=== PATIENT | female | born 1940 | race Caucasian/White ===

== ENCOUNTER 2017-06-29 10:15 | Inpatient (IN) | payer MEDICAID, MEDICARE ==
--- NOTE | 2017-06-29 11:01 | ED Physician Chart ---
ED Chief Complaint/HPI - Patient Information Date Seen:: 06/29/17 Time Seen:: 11:01 Chief Complaint:: Malfuntion left arm AV fistula History of Present Illness:: 76 yo female was brought from [facility] to ER due to malfunctioning of the left arm AV fistula for 1 day. After the patient received hemodialysis a day ago, she developed diffused edema at the AV fistula site extending from left arm to left forearm. Allergies:: Allergies Allergy/AdvReac Type Severity Reaction Status Date / Time hydrochlorothiazide Allergy Verified 06/29/17 10:31 [From Microzide] morphine Allergy Verified 06/29/17 10:30 sertraline Allergy Verified 06/29/17 10:31 Vitals:: Vital Signs - 8 hr 06/29/17 10:43 Temp 98.7 F HR 80 RR 21 BP 134/86 O2 Sat % 100 ED Review of Systems - Review of Systems General/Constitutional: No fever Skin: No bruising Head: No headache Eyes: No pain ENT: No nasal drainage Neck: No neck pain Cardio Vascular: No chest pain Pulmonary: SOB, Sputum GI: No nausea, No vomiting Musculoskeletal: Other (Left arm and forearm generalized edema) Neurological: No focal symptoms ED Past Medical History - Past Medical History Past Medical History: HTN, DM, ESRD, Other (Trach to T bar) Social History: Non Smoker, No Alcohol, No Drug Use Surgical History: PEG/GTube, other (laparotomy) Family Medical History - Family Member Mother History Unknown: Yes ED Physical Exam - Physical Examination General/Constitutional: Awake Other Gen/Cons comments:: bed/wheelchair bound Head: Atraumatic Eyes: PERRL Skin: No skin lesions ENMT: Nasal exam nl Other Neck comments:: Trach to T bar Other Respiratory comments:: Congestion and rhonchi Cardio Vascular: No murmur, gallop, rubs, NL S1 S2 Other Cardio Vascular comments:: irregular Other GI comments:: obese and distended Other Extremities comments:: Left arm and forearm generalized edema ED Labs/Radiology/EKG Results - Radiology Results Results: CXR: pulmonary edema, bibasilar pleural effusion, left > right - EKG Interpretations Rate & Rhythm: Sinus rhythm, premature atrial complex ED Assessment - Assessment General Assessment: Left arm AV fistula malfunction Pleural effusion, Left worse than right Possible LLL pneumonia Anemia of chronic kidney disease Hyponatremia Assessment/Comments:: NS 500ml IV bolus Admit to med surg ED Septic Shock - . Is Septic Shock (SBP<90, OR Lactate>4 mmol\L) present?: No - <6hrs of presentation: Vital Signs: Vital Signs - 8 hr 06/29/17 10:43 Temp 98.7 F HR 80 RR 21 BP 134/86 O2 Sat % 100 ED Reassessment (Disposition) - Reassessment Reassessment Condition:: Unchanged - Patient Disposition Discharge/Transfer:: Acute Care w/in this hosp Admitted to:: Med/Surg Admitting Medical Physician:: Luiza Barth ED Discharge Plan - Patient Disposition Admit/Discharge/Transfer: Acute Care w/in this hosp Condition at Disposition: Stable
[2017-06-29 11:54] LABS: ALB/GLOB RATIO 1.1 (1.0-1.8); ALBUMIN 3.9 gm/dL (3.7-5.3); ALKALINE PHOSPHATASE 180 U/L (34-104); ANION GAP 17.2 (7.0-16.0); BILIRUBIN,TOTAL 0.4 mg/dL (0.3-1.0); BUN - UREA NITROGEN 39 mg/dL (7-25); CARBON DIOXIDE 25.9 mEq/L (21.0-31.0); CHLORIDE 90 mEq/L (98-107); CREATININE - SERUM 2.3 mg/dL (0.6-1.2); GLUCOSE 140 mg/dL (70-105); POTASSIUM SERUM 4.1 mEq/L (3.5-5.1); SGOT 43 U/L (13-39); SGPT/ALT 20 U/L (7-52); SODIUM SERUM 129 mEq/L (136-145); TOTAL PROTEIN,SERUM 7.4 gm/dL (6.0-8.3)
[2017-06-29 12:18] LABS: % BASOPHILS 0.7 % (0.0-2.0); % EOSINOPHILS 1.5 % (0.0-5.0); % LYMPHOCYTES 9.2 % (20.0-50.0); % MONOCYTES 13.7 % (2.0-10.0); % NEUTROPHILS 74.9 % (40.0-80.0); EOSINOPHILE ABSOLUTE 0.1 Th/cmm (0.1-0.4); LYMPHOCYTE ABSOLUTE 0.6 Th/cmm (1.5-3.0); MEAN CELL VOLUME 98.9 fl (81-100); MEAN CORPUSCULAR HGB CONC 32.3 pg (28.0-36.0); MEAN PLATELET VOLUME 9.4 fl; MONOCYTE ABSOLUTE 0.9 Th/cmm (0.3-1.0); NEUTROPHILE ABSOLUTE 5.2 Th/cmm (1.8-8.0); PLATELET COUNT 213 Th/cmm (150-400); RED BLOOD COUNT 2.43 Mil/cmm (3.80-5.20); RED CELL DISTRIBUTION WIDTH 20.1 % (11.5-20.0); WHITE BLOOD COUNT 6.8 Th/cmm (4.8-10.8)
[2017-06-29 12:23] LABS: HEMOGLOBIN 7.8 gm/dL (12-16)
[2017-06-29] MEDS ORDERED: Sodium Chloride 0.9% 500 ML IV ONE (12:49)
[2017-06-29] MEDS ORDERED: Fleet Enema 135 mL RC PRN ×2 (15:54→19:12)
[2017-06-29] MEDS: INSULIN ASPART SLIDING SCALE 100 UNITS/ML UNIT SUBQ SCH (17:02)
[2017-06-29] MEDS ORDERED: Magnesium Hydroxide (MOM) 30 mL UDC GT PRN ×2 (17:47→19:12)
--- NOTE | 2017-06-29 18:38 | Consultation ---
Consult Note - Consult Note Service Date: 06/29/17 Referring Physician: Luiza Barth Consult Note: PHYSICIAN Consultation Note: Date of Admission: 06/29/17 Purpose of Consultation: Chief Complaint: Patient ANDREW ANDERSON was admitted to [facility] I with AV SHUNT MALFUNCTION. History of Present Illness: 76 yo female was brought from [facility] to ER due to malfunctioning of the left arm AV fistula for 1 day. After the patient received hemodialysis a day ago, she developed diffused edema at the AV fistula site extending from left arm to left forearm. Past Medical History: Allergies Allergy/AdvReac Type Severity Reaction Status Date / Time hydrochlorothiazide Allergy Verified 06/29/17 10:31 [From Microzide] morphine Allergy Verified 06/29/17 10:30 sertraline Allergy Verified 06/29/17 10:31 Vital Signs Temp 98.5 F 06/29/17 15:23 Pulse 79 06/29/17 16:41 Resp 16 06/29/17 16:41 BP 128/48 06/29/17 15:23 Pulse Ox 100 06/29/17 16:41 Laboratory Results - last 24 hr 06/29/17 16:58 POC Glucose 91 Home Medication Medication Instructions Recorded Type Acetaminophen [8 Hour] 650 mg GT Q4H PRN 06/29/17 History Acetaminophen [Tylenol] 650 mg GT DAILY 06/29/17 History Ascorbic Acid [Vitamin C] 500 mg GT DAILY 06/29/17 History Aspirin [Aspirin Chewable] 81 mg GT DAILY 06/29/17 History Atorvastatin Calcium [Lipitor] 40 mg GT HS 06/29/17 History Bisacodyl [Dulcolax 10 Mg Supp] 10 mg RC PRN PRN 06/29/17 History Chlorhexidine Gluconate 0.12% 10 ml MM QSHIFT 06/29/17 History [Peridex] Cholecalciferol (Vit D3) [Vitamin 1,000 iu GT DAILY 06/29/17 History D3] Docusate Sodium [Colace] 100 mg GT DAILY 06/29/17 History Fleet Enema [Fleet Enema] 118 ml RC PRN PRN 06/29/17 History Folic Acid/Vit Bcomp,C [Gina-Jie 1 tab GT DAILY 06/29/17 History Tablet] Insulin Regular, Human [Humulin R] 100 unit IJ Q6H 06/29/17 History Lansoprazole 30 mg GT DAILY 06/29/17 History Lorazepam [Ativan] 0.5 mg GT Q6H PRN 06/29/17 History Magnesium Hydroxide [Milk of 30 ml GT Q72H PRN 06/29/17 History Magnesia] Mirtazapine [Remeron] 15 mg GT HS 06/29/17 History Ondansetron [Zofran ODT] 4 mg GT Q6HR PRN 06/29/17 History Simethicone [Mylicon] 80 mg GT Q6H PRN 06/29/17 History Temazepam [Restoril*] 15 mg GT HS PRN 06/29/17 History Zinc Sulfate 220 mg GT DAILY 06/29/17 History Current Medications Generic Name Dose Route Start Last Admin Trade Name Freq PRN Reason Stop Dose Admin Acetaminophen 650 mg 06/30/17 09:00 Tylenol 650mg/20.3ml Suspension GT 08/29/17 08:59 DAILY FOUZIA Acetaminophen 650 mg 06/29/17 17:50 Tylenol 650mg/20.3ml Suspension GT 08/28/17 17:49 Q4H PRN PAIN Ascorbic Acid 500 mg 06/30/17 09:00 Vitamin C GT 08/29/17 08:59 DAILY FOUZIA Aspirin 81 mg 06/30/17 09:00 Aspirin Chewable GT 08/29/17 08:59 DAILY FOU[facility]IA Atorvastatin Calcium 40 mg 06/29/17 21:00 Lipitor GT 08/28/17 20:59 HS FOUZIA Protocol Bisacodyl 10 mg 06/29/17 16:01 Dulcolax 10 Mg Supp RC 08/28/17 16:00 DAILY PRN Constipation Cholecalciferol 1,000 iu 06/30/17 09:00 Vitamin D3 GT 08/29/17 08:59 DAILY FOU[facility]IA Docusate Sodium 100 mg 06/30/17 09:00 Colace PO 08/29/17 08:59 DAILY FOU[facility] Insulin Aspart 0 units 06/29/17 18:00 06/29/17 17:02 Novolog Insulin Sliding Scale SUBQ 08/28/17 17:59 Not Given Q6HR FOU[facility] Protocol Lorazepam 0.5 mg 06/29/17 17:53 Ativan GT 08/28/17 17:52 Q6H PRN Anxiety Protocol Magnesium Hydroxide 30 ml 06/29/17 17:47 Milk Of Magnesia GT 08/28/17 17:46 Q72H PRN Constipation Mirtazapine 15 mg 06/29/17 21:00 Remeron GT 08/28/17 20:59 HS FOU[facility] Protocol Ondansetron HCl 4 mg 06/29/17 17:38 Zofran Odt PO 08/28/17 15:59 Q6H PRN Nausea / Vomiting Simethicone 80 mg 06/29/17 16:09 Mylicon GT 08/28/17 15:52 Q6HR PRN Gas Sodium Phosphate 135 ml 06/29/17 15:54 Fleet Enema RC 08/28/17 15:53 DAILY PRN If Dulcolax ineffective Temazepam 15 mg 06/29/17 17:56 Restoril PO 08/28/17 17:55 HS PRN Insomnia Protocol Vitamin B Complex/Vit C/Folic Acid 1 tab 06/30/17 09:00 Vitamin B Complex W/Vitamin C GT 08/29/17 08:59 DAILY FOU[facility] Zinc Sulfate 220 mg 06/30/17 09:00 Zinc Sulfate GT 08/29/17 08:59 DAILY FOU[facility] Review of Systems: A 12 point ROS was reviewed with the pertinent positive and negatives noted in the HPI. Social History Smoking Status Never smoker Drug Use No Alcohol Use No Family Medical History Family Medical History Start: 06/29/17 13: 31 Freq: ONCE Status: Active Document 06/29/17 13:31 DEANDRE (Rec: 06/29/17 17:55 [id number]) Family Medical History Mother History Unknown Yes Physical Exam: General: Comfortable, not in distress. HEENT: Head is normocephalic, atraumatic. oral cavity moist, pink tongue, Eyes: pallor, ni ictrrerus. Neck: Supple, no JVD, no carotid bruit. Cardio: S1 and S2 WNl. Respiratory: Vesicular breath sounds,. decreased breath sounds. Abdominal: soft NT ND BS present. Genital/Urinary: Extremities: NCCE. Left arm AV shunt. Neurological: AAO x3. Assessment: 1. malfunctioning AV shunt. 2. CKD 5 on HD. 3. DM2 4. HTN. Plan: Start vanco IV and gentamicin x1. Signed, Andre Sun M.D. [id number]
[2017-06-29] MEDS ORDERED: Non-Formulary Item 1 EA (Acetaminophen [8 Hour] 650 MG) GT PRN (19:12)
[2017-06-29] MEDS ORDERED: Non-Formulary Item 1 EA (Atorvastatin Calcium [Lipitor] 40 MG) GT SCH (21:00)
[2017-06-29] MEDS: Chlorhexidine Gluconate 0.12% 480mL Bottle MM SCH (21:58)
[2017-06-29] MEDS ORDERED: Gentamicin 80 mg/2mL Vial ONE (22:13)
--- NOTE | 2017-06-29 23:53 | History & Physical ---
ADMIT DATE: 06/29/2017 HISTORY OF PRESENT ILLNESS: The patient is a very well known to me ____. The patient was transferred from [facility] to here because of a nonfunctioning AV fistula. The patient was also having a fever and was found to have pneumonia as well in the left lower lobe. The patient was seen in the ER, was admitted. PHYSICAL EXAMINATION: VITAL SIGNS: Temperature 98.5, pulse ____, blood pressure 128/46. HEAD: Normal.ENT: Normal. LUNGS: Bilateral rales. CARDIOVASCULAR SYSTEM: S1 and S2 heard. DIAGNOSES: Status post trach; status post PEG; malfunctioning arteriovenous shunt; chronic kidney disease V, on hemodialysis; diabetes type 2; hypertension, and pneumonia was made. PLAN: The patient has been started on IV antibiotics. I called Pulmonary and Infectious Disease consults, and I will be following the patient. JOB# [id number]
[2017-06-30] MEDS: INSULIN ASPART SLIDING SCALE 100 UNITS/ML UNIT SUBQ SCH ×4 (00:13→17:15)
[2017-06-30 06:22] LABS: ALB/GLOB RATIO 1.1 (1.0-1.8); ALBUMIN 3.5 gm/dL (3.7-5.3); ALKALINE PHOSPHATASE 149 U/L (34-104); ANION GAP 11.8 (7.0-16.0); BILIRUBIN,TOTAL 0.3 mg/dL (0.3-1.0); BUN - UREA NITROGEN 60 mg/dL (7-25); CALCIUM SERUM 8.5 mg/dL (8.6-10.3); CARBON DIOXIDE 28.4 mEq/L (21.0-31.0); CHLORIDE 88 mEq/L (98-107); CREATININE - SERUM 2.8 mg/dL (0.6-1.2); POTASSIUM SERUM 3.2 mEq/L (3.5-5.1); SGOT 20 U/L (13-39); SGPT/ALT 14 U/L (7-52); SODIUM SERUM 125 mEq/L (136-145); TOTAL PROTEIN,SERUM 6.6 gm/dL (6.0-8.3)
[2017-06-30 06:23] LABS: GLUCOSE 290 mg/dL (70-105)
[2017-06-30 06:48] LABS: EOSINOPHILE ABSOLUTE 0.3 Th/cmm (0.1-0.4); HEMATOCRIT 22.4 % (41.0-60); LYMPHOCYTE ABSOLUTE 0.3 Th/cmm (1.5-3.0); MEAN CELL VOLUME 99.2 fl (81-100); MEAN CORPUSCULAR HEMOGLOBIN 32.4 pg (27.0-31.0); MEAN CORPUSCULAR HGB CONC 32.7 pg (28.0-36.0); MEAN PLATELET VOLUME 9.9 fl; MONOCYTE ABSOLUTE 4.4 Th/cmm (0.3-1.0); NEUTROPHILE ABSOLUTE 3.3 Th/cmm (1.8-8.0); PLATELET COUNT 190 Th/cmm (150-400); RED BLOOD COUNT 2.25 Mil/cmm (3.80-5.20); RED CELL DISTRIBUTION WIDTH 19.9 % (11.5-20.0)
[2017-06-30 06:51] LABS: HEMOGLOBIN 7.3 gm/dL (12-16); WHITE BLOOD COUNT 8.3 Th/cmm (4.8-10.8)
--- NOTE | 2017-06-30 07:42 | Diagnostic Imaging Report ---
CHEST X-RAY: AP view INDICATION: Shortness of breath COMPARISON: None FINDINGS: Tracheostomy tube is noted. Additional wire material is seen overlying the patient. Findings of pulmonary edema are noted with bilateral effusions, left larger the right, and bilateral infiltrates. Cardiomegaly is noted. The osseous structures are intact. IMPRESSION: Pulmonary edema with bilateral pleural effusions left larger than right and bilateral infiltrates Cardiomegaly.
[2017-06-30 08:16] LABS: BASOPHIL 1 % (0-3); EOSINOPHIL 3 % (0-5); LYMPHOCYTE 13 % (20-50); MONOCYTE 9 % (2-10); NEUTROPHILS 74 % (40-80); TOTAL CELLS COUNTED 100
[2017-06-30] MEDS ORDERED: Vitamin B Complex w/Vitamin C Tab PO SCH (09:00)
[2017-06-30] MEDS ORDERED: Vitamin B Complex w/Vitamin C Tab GT SCH (09:00)
[2017-06-30] MEDS ORDERED: Aspirin 81mg Chewable Tab PO SCH (09:00)
[2017-06-30] MEDS ORDERED: Aspirin 81mg Chewable Tab GT SCH (09:00)
[2017-06-30] MEDS: Pantoprazole 40 mg/Packet GT SCH (09:18)
[2017-06-30] MEDS: Vitamin B Complex w/Vitamin C Tab GT SCH (09:18)
[2017-06-30] MEDS: Aspirin 81mg Chewable Tab GT SCH (09:18)
[2017-06-30] MEDS: Chlorhexidine Gluconate 0.12% 480mL Bottle MM SCH ×3 (09:27→20:16)
--- NOTE | 2017-06-30 10:53 | Consultation ---
DATE OF CONSULTATION: 06/29/2017 REFERRING PHYSICIAN: Dr. Barth. Thank you very much for this consultation. HISTORY OF PRESENT ILLNESS: This is a 76-year-old female with history of end-stage renal disease, chronic respiratory failure, status post tracheostomy on T-bar, presents with nonfunctioning AV shunt, was admitted for treatment and management. The patient has some cough and congestion, was found to be anemic as well. The patient is admitted for treatment and management. PAST MEDICAL HISTORY: End-stage renal disease, on dialysis; hypertension; chronic respiratory failure; dysphagia; history of pneumonias in the past. SOCIAL HISTORY: No history of smoking or drinking. She is on G-tube feeding. REVIEW OF SYSTEMS: Unable to obtain because of the patient's condition. PHYSICAL EXAMINATION: GENERAL: The patient is awake, alert, in no acute distress. VITAL SIGNS: Temperature 98.7, pulse 80, respirations 22, blood pressure 134/86, saturation 99%. HEENT: Atraumatic, normocephalic. Pupils are equal to light and accommodation. Ears, nose, and throat are normal. NECK: Supple. No JVD. CHEST: There is rhonchi bilaterally. HEART: Regular rhythm. EXTREMITIES: No edema. LABORATORY DATA: WBC 6.8, hemoglobin 7.8, hematocrit 24.0, platelets is 213. Sodium 129, potassium 4.1, BUN 29, creatinine 2.3. IMPRESSION: 1. This 76-year-old female with chronic respiratory failure, status post tracheostomy. 2. Possible pneumonia and infiltrate on x-ray. 3. Malfunction of the arteriovenous shunt. 4. End-stage renal disease, on dialysis. PLAN: 1. IV antibiotics. 2. Nebulizer treatment. 3. Pulmonary toilet and tracheostomy care. The patient will get probably dialysis access for dialysis when shunt issue is resolved. Thank you very much. I will follow the patient with you. [facility]# [id number]
--- NOTE | 2017-06-30 12:23 | General Progress Note ---
Subjective - Review of Systems Service Date: 06/30/17 Events since last encounter: US shows shunt is patent with high velocity arm is swollen and hard try to use for HD Objective - Results Result Diagrams: 06/30/17 05:30 06/30/17 05:30 Recent Labs: Laboratory Last Values WBC 8.3 Th/cmm (4.8-10.8) D 06/30/17 05:30 RBC 2.25 Mil/cmm (3.80-5.20) L 06/30/17 05:30 Hgb 7.3 gm/dL (12-16) L* 06/30/17 05:30 Hct 22.4 % (41.0-60) L 06/30/17 05:30 MCV 99.2 fl (81-100) 06/30/17 05:30 MCH 32.4 pg (27.0-31.0) H 06/30/17 05:30 MCHC Differential 32.7 pg (28.0-36.0) 06/30/17 05:30 RDW 19.9 % (11.5-20.0) 06/30/17 05:30 Plt Count 190 Th/cmm (150-400) 06/30/17 05:30 MPV 9.9 fl 06/30/17 05:30 Neutrophils % 74.9 % (40.0-80.0) 06/29/17 11:02 Lymphocytes % 9.2 % (20.0-50.0) L 06/29/17 11:02 Monocytes % 13.7 % (2.0-10.0) H 06/29/17 11:02 Eosinophils % 1.5 % (0.0-5.0) 06/29/17 11:02 Basophils % 0.7 % (0.0-2.0) 06/29/17 11:02 Neutrophils (Manual) 74 % (40-80) 06/30/17 05:30 Lymphocytes 13 % (20-50) L 06/30/17 05:30 Monocytes 9 % (2-10) 06/30/17 05:30 Eosinophils 3 % (0-5) 06/30/17 05:30 Basophils 1 % (0-3) 06/30/17 05:30 Sodium 125 mEq/L (136-145) L 06/30/17 05:30 Potassium 3.2 mEq/L (3.5-5.1) L 06/30/17 05:30 Chloride 88 mEq/L (98-107) L 06/30/17 05:30 Carbon Dioxide 28.4 mEq/L (21.0-31.0) 06/30/17 05:30 Anion Gap 11.8 (7.0-16.0) 06/30/17 05:30 BUN 60 mg/dL (7-25) H 06/30/17 05:30 Creatinine 2.8 mg/dL (0.6-1.2) H 06/30/17 05:30 Est GFR ( Amer) TNP 06/30/17 05:30 Est GFR (Non-Af Amer) TNP 06/30/17 05:30 BUN/Creatinine Ratio 21.4 06/30/17 05:30 Glucose 290 mg/dL (70-105) H D 06/30/17 05:30 POC Glucose 261 MG/DL (70 - 105) H 06/30/17 06:49 Calcium 8.5 mg/dL (8.6-10.3) L 06/30/17 05:30 Total Bilirubin 0.3 mg/dL (0.3-1.0) 06/30/17 05:30 AST 20 U/L (13-39) 06/30/17 05:30 ALT 14 U/L (7-52) 06/30/17 05:30 Alkaline Phosphatase 149 U/L (34-104) H 06/30/17 05:30 Total Protein 6.6 gm/dL (6.0-8.3) 06/30/17 05:30 Albumin 3.5 gm/dL (3.7-5.3) L 06/30/17 05:30 Globulin 3.1 gm/dL 06/30/17 05:30 Albumin/Globulin Ratio 1.1 (1.0-1.8) 06/30/17 05:30 - Physical Exam Vitals and I&O: Vital Signs Temp 96.8 F 06/30/17 08:00 Pulse 79 06/30/17 08:00 Resp 18 06/30/17 08:00 BP 138/52 06/30/17 08:00 Pulse Ox 100 06/30/17 08:00 Intake & Output 06/29/17 06/30/17 06/30/17 18:59 06:59 18:59 Intake Total 690 Balance 690 Weight (lbs) 79.469 kg Intake: Tube Feeding 690 Other: # Bowel Movements 0 Active Medications: Current Medications Acetaminophen (Tylenol 650mg/20.3ml Suspension) 650 mg GT DAILY [facility] Stop: 08/29/17 08:59 Last Admin: 06/30/17 09:16 Dose: 650 mg Acetaminophen (Tylenol 650mg/20.3ml Suspension) 650 mg GT Q4H PRN PRN Reason: FOR TEMP > 100 OR PAIN Stop: 08/28/17 17:49 Ascorbic Acid (Vitamin C) 500 mg GT DAILY [facility] Stop: 08/29/17 08:59 Last Admin: 06/30/17 09:18 Dose: 500 mg Aspirin (Aspirin Chewable) 81 mg GT DAILY [facility] Stop: 08/29/17 08:59 Last Admin: 06/30/17 09:18 Dose: 81 mg Atorvastatin Calcium (Lipitor) 40 mg GT HS [facility] PRN Reason: Protocol Stop: 08/28/17 20:59 Last Admin: 06/29/17 21:57 Dose: 40 mg Bisacodyl (Dulcolax 10 Mg Supp) 10 mg RC DAILY PRN PRN Reason: Constipation Stop: 08/28/17 16:00 Chlorhexidine Gluconate (Peridex) 10 ml MM QSHIFT [facility] Stop: 08/28/17 19:59 Last Admin: 06/30/17 09:27 Dose: 10 ml Cholecalciferol (Vitamin D3) 1,000 iu GT DAILY [facility] Stop: 08/29/17 08:59 Last Admin: 06/30/17 09:18 Dose: 1,000 iu Docusate Sodium (Colace) 100 mg PO DAILY [facility] Stop: 08/29/17 08:59 Last Admin: 06/30/17 09:18 Dose: 100 mg Insulin Aspart (Novolog Insulin Sliding Scale) 0 units SUBQ Q6HR [facility] PRN Reason: Protocol Stop: 08/28/17 17:59 Last Admin: 06/30/17 12:21 Dose: Not Given Lorazepam (Ativan) 0.5 mg GT Q6H PRN; Protocol PRN Reason: Anxiety Stop: 08/28/17 17:52 Last Admin: 06/30/17 06:50 Dose: 0.5 mg Magnesium Hydroxide (Milk Of Magnesia) 30 ml GT Q72H PRN PRN Reason: Constipation Stop: 08/28/17 17:46 Mirtazapine (Remeron) 15 mg GT HS FOU[facility]IA PRN Reason: Protocol Stop: 08/28/17 20:59 Last Admin: 06/29/17 22:03 Dose: 15 mg Miscellaneous (Vancomycin Iv Per Pharmacy) 1 ea MC PRN [facility] Stop: 08/28/17 19:14 Miscellaneous (Gentamicin Iv Per Pharmacy) 1 ea PRN PRN PRN Reason: PROTOCOL Stop: 08/28/17 19:10 Ondansetron HCl (Zofran Odt) 4 mg PO Q6H PRN PRN Reason: Nausea / Vomiting Stop: 08/28/17 15:59 Pantoprazole Sodium (Protonix) 40 mg GT DAILY [facility] Stop: 08/29/17 08:59 Last Admin: 06/30/17 09:18 Dose: 40 mg Simethicone (Mylicon) 80 mg GT Q6HR PRN PRN Reason: Gas Stop: 08/28/17 15:52 Sodium Phosphate (Fleet Enema) 118 ml RC PRN PRN PRN Reason: IF MOM/DULCOLAX INEFFECTIVE Stop: 08/28/17 19:11 Temazepam (Restoril) 15 mg PO HS PRN; Protocol PRN Reason: Insomnia Stop: 08/28/17 17:55 Last Admin: 06/29/17 21:57 Dose: 15 mg Vitamin B Complex/Vit C/Folic Acid (Vitamin B Complex W/Vitamin C) 1 tab GT DAILY [facility] Stop: 08/29/17 08:59 Last Admin: 06/30/17 09:18 Dose: 1 tab Zinc Sulfate (Zinc Sulfate) 220 mg GT DAILY [facility] Stop: 08/29/17 08:59 Last Admin: 06/30/17 09:17 Dose: 220 mg Assessment/Plan - Problem List Patient Problems: All Active Problems 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
--- NOTE | 2017-06-30 12:41 | General Progress Note ---
Subjective - Review of Systems Events since last encounter: arm still swollen denies pain Objective - Results Result Diagrams: 06/30/17 05:30 06/30/17 05:30 Recent Labs: Laboratory Last Values WBC 8.3 Th/cmm (4.8-10.8) D 06/30/17 05:30 RBC 2.25 Mil/cmm (3.80-5.20) L 06/30/17 05:30 Hgb 7.3 gm/dL (12-16) L* 06/30/17 05:30 Hct 22.4 % (41.0-60) L 06/30/17 05:30 MCV 99.2 fl (81-100) 06/30/17 05:30 MCH 32.4 pg (27.0-31.0) H 06/30/17 05:30 MCHC Differential 32.7 pg (28.0-36.0) 06/30/17 05:30 RDW 19.9 % (11.5-20.0) 06/30/17 05:30 Plt Count 190 Th/cmm (150-400) 06/30/17 05:30 MPV 9.9 fl 06/30/17 05:30 Neutrophils % 74.9 % (40.0-80.0) 06/29/17 11:02 Lymphocytes % 9.2 % (20.0-50.0) L 06/29/17 11:02 Monocytes % 13.7 % (2.0-10.0) H 06/29/17 11:02 Eosinophils % 1.5 % (0.0-5.0) 06/29/17 11:02 Basophils % 0.7 % (0.0-2.0) 06/29/17 11:02 Neutrophils (Manual) 74 % (40-80) 06/30/17 05:30 Lymphocytes 13 % (20-50) L 06/30/17 05:30 Monocytes 9 % (2-10) 06/30/17 05:30 Eosinophils 3 % (0-5) 06/30/17 05:30 Basophils 1 % (0-3) 06/30/17 05:30 Sodium 125 mEq/L (136-145) L 06/30/17 05:30 Potassium 3.2 mEq/L (3.5-5.1) L 06/30/17 05:30 Chloride 88 mEq/L (98-107) L 06/30/17 05:30 Carbon Dioxide 28.4 mEq/L (21.0-31.0) 06/30/17 05:30 Anion Gap 11.8 (7.0-16.0) 06/30/17 05:30 BUN 60 mg/dL (7-25) H 06/30/17 05:30 Creatinine 2.8 mg/dL (0.6-1.2) H 06/30/17 05:30 Est GFR ( Amer) TNP 06/30/17 05:30 Est GFR (Non-Af Amer) TNP 06/30/17 05:30 BUN/Creatinine Ratio 21.4 06/30/17 05:30 Glucose 290 mg/dL (70-105) H D 06/30/17 05:30 POC Glucose 128 MG/DL (70 - 105) H 06/30/17 12:19 Calcium 8.5 mg/dL (8.6-10.3) L 06/30/17 05:30 Total Bilirubin 0.3 mg/dL (0.3-1.0) 06/30/17 05:30 AST 20 U/L (13-39) 06/30/17 05:30 ALT 14 U/L (7-52) 06/30/17 05:30 Alkaline Phosphatase 149 U/L (34-104) H 06/30/17 05:30 Total Protein 6.6 gm/dL (6.0-8.3) 06/30/17 05:30 Albumin 3.5 gm/dL (3.7-5.3) L 06/30/17 05:30 Globulin 3.1 gm/dL 06/30/17 05:30 Albumin/Globulin Ratio 1.1 (1.0-1.8) 06/30/17 05:30 - Physical Exam Vitals and I&O: Vital Signs Temp 96.8 F 06/30/17 08:00 Pulse 79 06/30/17 08:00 Resp 18 06/30/17 08:00 BP 138/52 06/30/17 08:00 Pulse Ox 100 06/30/17 08:00 Intake & Output 06/29/17 06/30/17 06/30/17 18:59 06:59 18:59 Intake Total 690 Balance 690 Weight (lbs) 79.469 kg Intake: Tube Feeding 690 Other: # Bowel Movements 0 Active Medications: Current Medications Acetaminophen (Tylenol 650mg/20.3ml Suspension) 650 mg GT DAILY [facility] Stop: 08/29/17 08:59 Last Admin: 06/30/17 09:16 Dose: 650 mg Acetaminophen (Tylenol 650mg/20.3ml Suspension) 650 mg GT Q4H PRN PRN Reason: FOR TEMP > 100 OR PAIN Stop: 08/28/17 17:49 Ascorbic Acid (Vitamin C) 500 mg GT DAILY [facility] Stop: 08/29/17 08:59 Last Admin: 06/30/17 09:18 Dose: 500 mg Aspirin (Aspirin Chewable) 81 mg GT DAILY [facility] Stop: 08/29/17 08:59 Last Admin: 06/30/17 09:18 Dose: 81 mg Atorvastatin Calcium (Lipitor) 40 mg GT HS [facility] PRN Reason: Protocol Stop: 08/28/17 20:59 Last Admin: 06/29/17 21:57 Dose: 40 mg Bisacodyl (Dulcolax 10 Mg Supp) 10 mg RC DAILY PRN PRN Reason: Constipation Stop: 08/28/17 16:00 Chlorhexidine Gluconate (Peridex) 10 ml MM QSHIFT [facility] Stop: 08/28/17 19:59 Last Admin: 06/30/17 09:27 Dose: 10 ml Cholecalciferol (Vitamin D3) 1,000 iu GT DAILY [facility] Stop: 08/29/17 08:59 Last Admin: 06/30/17 09:18 Dose: 1,000 iu Docusate Sodium (Colace) 100 mg PO DAILY [facility] Stop: 08/29/17 08:59 Last Admin: 06/30/17 09:18 Dose: 100 mg Insulin Aspart (Novolog Insulin Sliding Scale) 0 units SUBQ Q6HR [facility] PRN Reason: Protocol Stop: 08/28/17 17:59 Last Admin: 06/30/17 12:21 Dose: Not Given Lorazepam (Ativan) 0.5 mg GT Q6H PRN; Protocol PRN Reason: Anxiety Stop: 08/28/17 17:52 Last Admin: 06/30/17 06:50 Dose: 0.5 mg Magnesium Hydroxide (Milk Of Magnesia) 30 ml GT Q72H PRN PRN Reason: Constipation Stop: 08/28/17 17:46 Mirtazapine (Remeron) 15 mg GT HS [facility] PRN Reason: Protocol Stop: 08/28/17 20:59 Last Admin: 06/29/17 22:03 Dose: 15 mg Miscellaneous (Vancomycin Iv Per Pharmacy) 1 ea MC PRN [facility] Stop: 08/28/17 19:14 Miscellaneous (Gentamicin Iv Per Pharmacy) 1 ea MC PRN PRN PRN Reason: PROTOCOL Stop: 08/28/17 19:10 Ondansetron HCl (Zofran Odt) 4 mg PO Q6H PRN PRN Reason: Nausea / Vomiting Stop: 08/28/17 15:59 Pantoprazole Sodium (Protonix) 40 mg GT DAILY [facility] Stop: 08/29/17 08:59 Last Admin: 06/30/17 09:18 Dose: 40 mg Simethicone (Mylicon) 80 mg GT Q6HR PRN PRN Reason: Gas Stop: 08/28/17 15:52 Sodium Phosphate (Fleet Enema) 118 ml RC PRN PRN PRN Reason: IF MOM/DULCOLAX INEFFECTIVE Stop: 08/28/17 19:11 Temazepam (Restoril) 15 mg PO HS PRN; Protocol PRN Reason: Insomnia Stop: 08/28/17 17:55 Last Admin: 06/29/17 21:57 Dose: 15 mg Vitamin B Complex/Vit C/Folic Acid (Vitamin B Complex W/Vitamin C) 1 tab GT DAILY [facility] Stop: 08/29/17 08:59 Last Admin: 06/30/17 09:18 Dose: 1 tab Zinc Sulfate (Zinc Sulfate) 220 mg GT DAILY [facility] Stop: 08/29/17 08:59 Last Admin: 06/30/17 09:17 Dose: 220 mg Assessment/Plan - Problem List Patient Problems: All Active Problems 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
--- NOTE | 2017-06-30 13:20 | Diagnostic Imaging Report ---
Left upper extremity Doppler arterial ultrasound exam HISTORY: AV shunt patency Sonographic sector images were obtained through the arterial system of the left arm. Associated Doppler data was obtained. The exam is extremely limited due to difficulty in patient cooperation. The radial and ulnar arteries could not be evaluated. The arteriovenous shunt is incompletely visualized. However, this appears to be grossly patent. Increased velocities without normal monophasic waveforms noted in the region of the left brachial artery. Abnormal monophasic waveforms noted within the left subclavian and left axillary arteries. IMPRESSION: 1. Limited/incomplete exam due to lack of patient cooperation. 2. Limited visualization of the patient's AV shunt. This appears to be grossly patent. 3. Abnormal Doppler data with increased velocities and abnormal monophasic waveforms in the left brachial artery region. Abnormal monophasic waveforms also noted within the left subclavian and left axillary arteries. However no significant focal narrowing or stenosis is sonographically identified.
--- NOTE | 2017-06-30 13:20 | Diagnostic Imaging Report ---
Left upper extremity Doppler venous ultrasound exam HISTORY: Swelling, a [employer] shunt patency Exam is very limited due to difficulty in patient cooperation. There is incomplete visualization of the left internal jugular vein due to overlying bandages associated with the patient's tracheostomy. There is patency of the left subclavian, axillary, brachial, basilic veins. The left cephalic vein could not be well visualized. The margins of the patient's AV shunt are not clearly delineated. No obvious occlusion. IMPRESSION: 1. Limited/suboptimal exam due to difficulty in patient cooperation. No obvious venous occlusion.
[2017-06-30] MEDS ORDERED: Potassium Chloride 20 mEq ER Tab PO ONE (16:20)
--- NOTE | 2017-06-30 20:05 | Consultation ---
Consult Note - Consult Note Service Date: 06/30/17 Referring Physician: Luiza Barth Consult Note: PHYSICIAN Consultation Note: Date of Admission: 06/29/17 Purpose of Consultation: Chief Complaint: Patient ANDREW ANDERSON was admitted to [facility] with AV SHUNT MALFUNCTION. History of Present Illness:76 year old female multiple comorbidities, brought for malfunctioning AV shunt. No fever , no chills. Past Medical History: Diagnoses TYPE 2 DIABETES MELLITUS W DIABETIC CHRONIC KIDNEY DISEASE (06/29/17) HYP CHR KIDNEY DISEASE W STAGE 5 CHR KIDNEY DISEASE OR ESRD (06/29/17) PNEUMONIA, UNSPECIFIED ORGANISM (06/29/17) CHRONIC RESPIRATORY FAILURE, UNSP W HYPOXIA OR HYPERCAPNIA (06/29/17) CHRONIC KIDNEY DISEASE, STAGE 5 (06/29/17) BREAKDOWN (MECHANICAL) OF OTHER VASCULAR GRAFTS, INIT ENCNTR (06/29/17) TRACHEOSTOMY STATUS (06/29/17) GASTROSTOMY STATUS (06/29/17) DEPENDENCE ON RENAL DIALYSIS (06/29/17) Allergies Allergy/AdvReac Type Severity Reaction Status Date / Time hydrochlorothiazide Allergy Verified 06/29/17 10:31 [From Microzide] morphine Allergy Verified 06/29/17 10:30 sertraline Allergy Verified 06/29/17 10:31 Vital Signs Temp 97.2 F 06/30/17 12:00 Pulse 74 06/30/17 12:00 Resp 18 06/30/17 12:00 BP 135/67 06/30/17 12:00 Pulse Ox 100 06/30/17 12:00 Intake & Output 06/30/17 06/30/17 07/01/17 06:59 18:59 06:59 Intake Total 690 Balance 690 Weight (lbs) 79.469 kg Intake: Tube Feeding 690 Other: # Bowel Movements 0 Laboratory Results - last 24 hr 06/29/17 06/30/17 06/30/17 23:46 05:30 05:30 WBC 8.3 D RBC 2.25 L Hgb 7.3 L* Hct 22.4 L MCV 99.2 MCH 32.4 H MCHC Differential 32.7 RDW 19.9 Plt Count 190 MPV 9.9 Neutrophils (Manual) 74 Lymphocytes 13 L Monocytes 9 Eosinophils 3 Basophils 1 Sodium 125 L Potassium 3.2 L Chloride 88 L Carbon Dioxide 28.4 Anion Gap 11.8 BUN 60 H Creatinine 2.8 H Est GFR ( Amer) TNP Est GFR (Non-Af Amer) TNP BUN/Creatinine Ratio 21.4 Glucose 290 H D POC Glucose 162 H Calcium 8.5 L Total Bilirubin 0.3 AST 20 ALT 14 Alkaline Phosphatase 149 H Total Protein 6.6 Albumin 3.5 L Globulin 3.1 Albumin/Globulin Ratio 1.1 Blood Type Antibody Screen Crossmatch 06/30/17 06/30/17 06/30/17 06:49 12:19 15:53 WBC RBC Hgb Hct MCV MCH MCHC Differential RDW Plt Count MPV Neutrophils (Manual) Lymphocytes Monocytes Eosinophils Basophils Sodium Potassium Chloride Carbon Dioxide Anion Gap BUN Creatinine Est GFR ( Amer) Est GFR (Non-Af Amer) BUN/Creatinine Ratio Glucose POC Glucose 261 H 128 H Calcium Total Bilirubin AST ALT Alkaline Phosphatase Total Protein Albumin Globulin Albumin/Globulin Ratio Blood Type A POSITIVE Antibody Screen NEGATIVE Crossmatch See Detail 06/30/17 17:14 WBC RBC Hgb Hct MCV MCH MCHC Differential RDW Plt Count MPV Neutrophils (Manual) Lymphocytes Monocytes Eosinophils Basophils Sodium Potassium Chloride Carbon Dioxide Anion Gap BUN Creatinine Est GFR ( Amer) Est GFR (Non-Af Amer) BUN/Creatinine Ratio Glucose POC Glucose 126 H Calcium Total Bilirubin AST ALT Alkaline Phosphatase Total Protein Albumin Globulin Albumin/Globulin Ratio Blood Type Antibody Screen Crossmatch Home Medication Medication Instructions Recorded Type Acetaminophen [8 Hour] 650 mg GT Q4H PRN 06/29/17 History Acetaminophen [Tylenol] 650 mg GT DAILY 06/29/17 History Ascorbic Acid [Vitamin C] 500 mg GT DAILY 06/29/17 History Aspirin [Aspirin Chewable] 81 mg GT DAILY 06/29/17 History Atorvastatin Calcium [Lipitor] 40 mg GT HS 06/29/17 History Bisacodyl [Dulcolax 10 Mg Supp] 10 mg RC PRN PRN 06/29/17 History Chlorhexidine Gluconate 0.12% 10 ml MM QSHIFT 06/29/17 History [Peridex] Cholecalciferol (Vit D3) [Vitamin 1,000 iu GT DAILY 06/29/17 History D3] Docusate Sodium [Colace] 100 mg GT DAILY 06/29/17 History Fleet Enema [Fleet Enema] 118 ml RC PRN PRN 06/29/17 History Folic Acid/Vit Bcomp,C [Gina-Jie 1 tab GT DAILY 06/29/17 History Tablet] Insulin Regular, Human [Humulin R] 100 unit IJ Q6H 06/29/17 History Lansoprazole 30 mg GT DAILY 06/29/17 History Lorazepam [Ativan] 0.5 mg GT Q6H PRN 06/29/17 History Magnesium Hydroxide [Milk of 30 ml GT Q72H PRN 06/29/17 History Magnesia] Mirtazapine [Remeron] 15 mg GT HS 06/29/17 History Ondansetron [Zofran ODT] 4 mg GT Q6HR PRN 06/29/17 History Simethicone [Mylicon] 80 mg GT Q6H PRN 06/29/17 History Temazepam [Restoril*] 15 mg GT HS PRN 06/29/17 History Zinc Sulfate 220 mg GT DAILY 06/29/17 History Current Medications Generic Name Dose Route Start Last Admin Trade Name Freq PRN Reason Stop Dose Admin Acetaminophen 650 mg 06/30/17 09:00 06/30/17 09:16 Tylenol 650mg/20.3ml Suspension GT 08/29/17 08:59 650 mg DAILY FOUZIA Administration Acetaminophen 650 mg 06/29/17 17:50 Tylenol 650mg/20.3ml Suspension GT 08/28/17 17:49 Q4H PRN FOR TEMP > 100 OR PAIN Ascorbic Acid 500 mg 06/30/17 09:00 06/30/17 09:18 Vitamin C GT 08/29/17 08:59 500 mg DAILY FOUZIA Administration Aspirin 81 mg 06/30/17 09:00 06/30/17 09:18 Aspirin Chewable GT 08/29/17 08:59 81 mg DAILY FOUZIA Administration Atorvastatin Calcium 40 mg 06/29/17 21:00 06/29/17 21:57 Lipitor GT 08/28/17 20:59 40 mg HS FOUZIA Administration Protocol Bisacodyl 10 mg 06/29/17 16:01 Dulcolax 10 Mg Supp RC 08/28/17 16:00 DAILY PRN Constipation Chlorhexidine Gluconate 10 ml 06/29/17 20:00 06/30/17 09:27 Peridex MM 08/28/17 19:59 10 ml QSHIFT FOUZIA Administration Cholecalciferol 1,000 iu 06/30/17 09:00 01/22/18 09:18 Vitamin D3 GT 08/29/17 08:59 1,000 iu DAILY FOUZIA Administration Docusate Sodium 100 mg 06/30/17 09:00 06/30/17 09:18 Colace PO 08/29/17 08:59 100 mg DAILY FOUZIA Administration Albumin Human 25 gm in 100 mls @ 50 mls/hr 07/01/17 00:00 Albuminar 25% IV 07/01/17 01:59 X1 ONE Gentamicin Sulfate 80 mg/ 102 mls @ 100 mls/hr 07/01/17 02:00 Sodium Chloride IV 08/30/17 01:59 Q24H FOUZIA Insulin Aspart 0 units 06/29/17 18:00 06/30/17 17:15 Novolog Insulin Sliding Scale SUBQ 08/28/17 17:59 Not Given Q6HR FOUZIA Protocol Lorazepam 0.5 mg 06/29/17 17:53 06/30/17 16:18 Ativan GT 08/28/17 17:52 0.5 mg Q6H PRN Administration Anxiety Protocol Magnesium Hydroxide 30 ml 06/29/17 17:47 Milk Of Magnesia GT 08/28/17 17:46 Q72H PRN Constipation Mirtazapine 15 mg 06/29/17 21:00 06/29/17 22:03 Remeron GT 08/28/17 20:59 15 mg HS FOUZIA Administration Protocol Miscellaneous 1 ea 06/29/17 19:15 Vancomycin Iv Per Pharmacy 08/28/17 19:14 PRN FOUZIA Miscellaneous 1 ea 06/29/17 19:11 Gentamicin Iv Per Pharmacy 08/28/17 19:10 PRN PRN PROTOCOL Ondansetron HCl 4 mg 06/29/17 17:38 Zofran Odt PO 08/28/17 15:59 Q6H PRN Nausea / Vomiting Pantoprazole Sodium 40 mg 06/30/17 09:00 06/30/17 09:18 Protonix GT 08/29/17 08:59 40 mg DAILY FOUZIA Administration Simethicone 80 mg 06/29/17 16:09 Mylicon GT 08/28/17 15:52 Q6HR PRN Gas Sodium Phosphate 118 ml 06/29/17 19:12 Fleet Enema RC 08/28/17 19:11 PRN PRN IF MOM/DULCOLAX INEFFECTIVE Temazepam 15 mg 06/29/17 17:56 06/29/17 21:57 Restoril PO 08/28/17 17:55 15 mg HS PRN Administration Insomnia Protocol Vitamin B Complex/Vit C/Folic Acid 1 tab 06/30/17 09:00 06/30/17 09:18 Vitamin B Complex W/Vitamin C GT 08/29/17 08:59 1 tab DAILY FOUZIA Administration Zinc Sulfate 220 mg 06/30/17 09:00 06/30/17 09:17 Zinc Sulfate GT 08/29/17 08:59 220 mg DAILY FOUZIA Administration Review of Systems: A 12 point ROS was reviewed with the pertinent positive and negatives noted in the HPI. Social History Smoking Status Never smoker Drug Use No Alcohol Use No Family Medical History Family Medical History Start: 06/29/17 13: 31 Freq: ONCE Status: Active Document 06/29/17 13:31 DEANDRE (Rec: 06/29/17 17:55 [id number]) Family Medical History Mother History Unknown Yes Physical Exam: General: comfortable, no distress. HEENT: oral cavity moist pink tongue. Eys no pallor, no icterus. Neck: Supple, no JVD. Cardio: S1 and S2 WNL. Respiratory: CTAP Abdominal: SOFT NT ND BS + Genital/Urinary: Extremities: NCCE. Left arm AV shunt. Neurological: AAOx3 Assessment: AV shunt malfunsion r/o infection or just clot. CKD 5 on HD. Plan: Vanco IV. Signed, Andre Sun M.D. [id number]
[2017-06-30 20:55] LABS: A1C % 7.2 % (4.0-6.0)
[2017-07-01] MEDS ORDERED: Albumin 25% 25gm/100mL 25 GM/100 ML BTL IV ONE
[2017-07-01] MEDS: INSULIN ASPART SLIDING SCALE 100 UNITS/ML UNIT SUBQ SCH ×4 (00:38→19:07)
--- NOTE | 2017-07-01 05:32 | Consultation ---
DATE OF CONSULTATION: 06/30/2017 REASON FOR CONSULTATION: Electrolyte imbalance and fluid management. HISTORY OF PRESENT ILLNESS: This is a 76-year-old female with past medical history of end-stage renal disease, on hemodialysis, who came in because of possible nonfunctioning left AV fistula. A few hours prior to admission, the patient was noted by ECF staff to have progressive edema of her left upper extremity. She was dialyzed a day before. This was associated with some tenderness and warmth. She was then brought to the Emergency Room. Chest x-ray revealed pulmonary edema with bilateral effusions, left greater than right. White count was 6.8. Arterial as well as venous upper extremity scans were negative for any narrowing or stenosis. PAST MEDICAL HISTORY: 1. End-stage renal disease, on hemodialysis. 2. Chronic respiratory failure on T-piece. 3. Anxiety/depression. 4. History for recurring pneumonia. 5. Essential hypertension. 6. Gastroesophageal reflux disease. 7. Type 2 diabetes mellitus. 8. Multiple pressure ulcers. 9. Morbid obesity. CURRENT MEDICATIONS: She is currently on acetaminophen, ascorbic acid, aspirin, atorvastatin, bisacodyl, vitamin D, lorazepam, magnesium hydroxide, Remeron, ondansetron, Simethicone, Temazepam, vancomycin. ALLERGIES: HYDROCHLOROTHIAZIDE, MORPHINE, SERTRALINE. SOCIAL AND FAMILY HISTORY: I was unable to obtain from the patient because she remains nonverbal, on T-piece. REVIEW OF SYSTEMS: Again, I was not able to decipher directly from the patient due to her current mental status. PHYSICAL EXAMINATION: GENERAL: The patient is awake, not in any form of distress, on obese side. VITAL SIGNS: Her temperature is 97.2 degrees, pulse 74, blood pressure 135/67. SKIN: Good turgor, warm. No rash or jaundice appreciated. HEENT: Head normocephalic, atraumatic. Eyes: Extraocular muscles intact. Pupils equal, round, reactive to light and accommodates. Anicteric sclerae. Pale conjunctivae. Nose, midline nasal septum. Mouth: Dry mucosa with poor dentition. NECK: Supple, no adenopathy, no thyromegaly, no bruits. Presence of a trach collar, on T-piece. CHEST AND CVS: S1, S2. No rub, murmur nor gallop appreciated. Point of maximal impulse fifth intercostal space, left midclavicular line. No abdominal or femoral bruits appreciated. LUNGS: Equal expansion. No use of accessory muscles. No supraclavicular retractions. Decreased breath sounds, a few rhonchi with some rales and congestion, but no wheezes appreciated. BREASTS: Pendulous, symmetrical, without any discharge. ABDOMEN: Obese, soft, positive for bowel sounds. No bruits either diastolic or systolic. RECTAL: Lax sphincter tone. GENITOURINARY: Normal appearing female genitalia. MUSCULOSKELETAL: No effusions present in her joints, but unable to assess her range of motion. EXTREMITIES: She has multiple pressure ulcers. NEUROLOGIC: The patient is awake; however, unable to follow my neuro commands, so I was not able to pursue further my neuro exam. LABORATORY DATA: Did reveal white count 8.3, hemoglobin 7.3, hematocrit 22.4, platelets is 190. Sodium 125, potassium 3.2, BUN 60, creatinine 2.8, glucose is 290, albumin 3.5. IMPRESSION: 1. Left AV fistula patent with surrounding edema. 2. Decompensating CHF, possible healthcare-acquired infection. 3. Anemia of chronic kidney disease. 4. End-stage renal disease, on hemodialysis. 5. Chronic respiratory failure, on T-piece. 6. Anxiety/depression. 7. History of pneumonia. 8. Essential hypertension. 9. Gastroesophageal reflux disease. 10. Type 2 diabetes mellitus. 11. Multiple possible pressure ulcers. PLAN: 1. Hemodialysis today. 2. Replace potassium. 3. Continue to monitor electrolytes. 4. Also continue to monitor fluid status. JOB# [id number]
[2017-07-01 06:35] LABS: EOSINOPHILE ABSOLUTE 0.5 Th/cmm (0.1-0.4); LYMPHOCYTE ABSOLUTE 0.2 Th/cmm (1.5-3.0); MEAN CORPUSCULAR HEMOGLOBIN 32.5 pg (27.0-31.0); MEAN CORPUSCULAR HGB CONC 32.2 pg (28.0-36.0); MEAN PLATELET VOLUME 9.6 fl; NEUTROPHILE ABSOLUTE 4.2 Th/cmm (1.8-8.0); PLATELET COUNT 201 Th/cmm (150-400); RED BLOOD COUNT 2.63 Mil/cmm (3.80-5.20); RED CELL DISTRIBUTION WIDTH 18.8 % (11.5-20.0); WHITE BLOOD COUNT 6.9 Th/cmm (4.8-10.8)
[2017-07-01 06:55] LABS: ANION GAP 11.1 (7.0-16.0); BUN - UREA NITROGEN 38 mg/dL (7-25); CALCIUM SERUM 8.4 mg/dL (8.6-10.3); CARBON DIOXIDE 30.1 mEq/L (21.0-31.0); CHLORIDE 94 mEq/L (98-107); CREATININE - SERUM 2.1 mg/dL (0.6-1.2); GLUCOSE 254 mg/dL (70-105); POTASSIUM SERUM 3.2 mEq/L (3.5-5.1); SODIUM SERUM 132 mEq/L (136-145)
[2017-07-01 07:42] LABS: TOTAL CELLS COUNTED 100
[2017-07-01 07:43] LABS: EOSINOPHIL 2 % (0-5); LYMPHOCYTE 18 % (20-50); MONOCYTE 9 % (2-10)
[2017-07-01 09:33] LABS: HEMATOCRIT 26.5 % (41.0-60)
[2017-07-01 09:36] LABS: NEUTROPHILS 71 % (40-80)
[2017-07-01 09:41] LABS: HEMOGLOBIN 8.5 gm/dL (12-16)
--- NOTE | 2017-07-01 09:44 | Diagnostic Imaging Report ---
X-ray portable chest x-ray HISTORY: Shortness of breath Compared with prior exam of June 29, 2017, increasing density seen within the left hemithorax consistent with an increasing left pleural effusion. Evidence of persistent right pleural effusion. The heart is enlarged. IMPRESSION: 1. Findings consistent with an increasing left pleural effusion
[2017-07-01] MEDS: Vitamin B Complex w/Vitamin C Tab GT SCH (09:53)
[2017-07-01] MEDS: Aspirin 81mg Chewable Tab GT SCH (09:54)
[2017-07-01] MEDS: Pantoprazole 40 mg/Packet GT SCH (09:54)
[2017-07-01] MEDS: Chlorhexidine Gluconate 0.12% 480mL Bottle MM SCH ×2 (09:54→20:19)
[2017-07-01] MEDS ORDERED: Potassium Chloride Elixir 20 mEq /15 mL UDC GT ONE (13:17)
--- NOTE | 2017-07-01 13:19 | Infectious Disease Prog Note ---
Infectious Disease Subjective - Review of Systems Service Date: 06/30/17 Subjective: No fever, doing well. On T bar. Infectious Disease Objective - Results Result Diagrams: 07/01/17 06:00 07/01/17 06:00 Recent Labs: Laboratory Last Values WBC 6.9 Th/cmm (4.8-10.8) 07/01/17 06:00 RBC 2.63 Mil/cmm (3.80-5.20) L 07/01/17 06:00 Hgb 8.5 gm/dL (12-16) L 07/01/17 06:00 Hct 26.5 % (41.0-60) L D 07/01/17 06:00 MCV 101.0 fl (81-100) H 07/01/17 06:00 MCH 32.5 pg (27.0-31.0) H 07/01/17 06:00 MCHC Differential 32.2 pg (28.0-36.0) 07/01/17 06:00 RDW 18.8 % (11.5-20.0) 07/01/17 06:00 Plt Count 201 Th/cmm (150-400) 07/01/17 06:00 MPV 9.6 fl 07/01/17 06:00 Neutrophils % 74.9 % (40.0-80.0) 06/29/17 11:02 Band Neutrophils % Not Reportable 07/01/17 06:00 Lymphocytes % 9.2 % (20.0-50.0) L 06/29/17 11:02 Monocytes % 13.7 % (2.0-10.0) H 06/29/17 11:02 Eosinophils % 1.5 % (0.0-5.0) 06/29/17 11:02 Basophils % 0.7 % (0.0-2.0) 06/29/17 11:02 Neutrophils (Manual) 71 % (40-80) 07/01/17 06:00 Lymphocytes 18 % (20-50) L 07/01/17 06:00 Monocytes 9 % (2-10) 07/01/17 06:00 Eosinophils 2 % (0-5) 07/01/17 06:00 Basophils 1 % (0-3) 06/30/17 05:30 Sodium 132 mEq/L (136-145) L 07/01/17 06:00 Potassium 3.2 mEq/L (3.5-5.1) L 07/01/17 06:00 Chloride 94 mEq/L (98-107) L 07/01/17 06:00 Carbon Dioxide 30.1 mEq/L (21.0-31.0) 07/01/17 06:00 Anion Gap 11.1 (7.0-16.0) 07/01/17 06:00 BUN 38 mg/dL (7-25) H 07/01/17 06:00 Creatinine 2.1 mg/dL (0.6-1.2) H 07/01/17 06:00 Est GFR ( Amer) TNP 07/01/17 06:00 Est GFR (Non-Af Amer) TNP 07/01/17 06:00 BUN/Creatinine Ratio 18.1 07/01/17 06:00 Glucose 254 mg/dL (70-105) H 07/01/17 06:00 POC Glucose 207 MG/DL (70 - 105) H 07/01/17 00:36 Hemoglobin A1c % 7.2 % (4.0-6.0) H 06/30/17 05:20 Calcium 8.4 mg/dL (8.6-10.3) L 07/01/17 06:00 Total Bilirubin 0.3 mg/dL (0.3-1.0) 06/30/17 05:30 AST 20 U/L (13-39) 06/30/17 05:30 ALT 14 U/L (7-52) 06/30/17 05:30 Alkaline Phosphatase 149 U/L (34-104) H 06/30/17 05:30 Total Protein 6.6 gm/dL (6.0-8.3) 06/30/17 05:30 Albumin 3.5 gm/dL (3.7-5.3) L 06/30/17 05:30 Globulin 3.1 gm/dL 06/30/17 05:30 Albumin/Globulin Ratio 1.1 (1.0-1.8) 06/30/17 05:30 Random Vancomycin 10.9 ug/mL (5.0-40.0) 07/01/17 06:00 Blood Type A POSITIVE 06/30/17 15:53 Antibody Screen NEGATIVE 06/30/17 15:53 Crossmatch See Detail 06/30/17 15:53 - Physical Exam Vitals and I&O: Vital Signs Temp 97.5 F 07/01/17 04:00 Pulse 98 07/01/17 04:00 Resp 18 07/01/17 04:00 BP 101/80 07/01/17 04:00 Pulse Ox 100 07/01/17 04:00 Active Medications: Current Medications Acetaminophen (Tylenol 650mg/20.3ml Suspension) 650 mg GT DAILY [facility] Stop: 08/29/17 08:59 Last Admin: 07/01/17 09:52 Dose: 650 mg Acetaminophen (Tylenol 650mg/20.3ml Suspension) 650 mg GT Q4H PRN PRN Reason: FOR TEMP > 100 OR PAIN Stop: 08/28/17 17:49 Ascorbic Acid (Vitamin C) 500 mg GT DAILY [facility] Stop: 08/29/17 08:59 Last Admin: 07/01/17 09:53 Dose: 500 mg Aspirin (Aspirin Chewable) 81 mg GT DAILY [facility] Stop: 08/29/17 08:59 Last Admin: 07/01/17 09:54 Dose: 81 mg Atorvastatin Calcium (Lipitor) 40 mg GT HS FOUZIA PRN Reason: Protocol Stop: 08/28/17 20:59 Last Admin: 06/30/17 20:12 Dose: 40 mg Bisacodyl (Dulcolax 10 Mg Supp) 10 mg RC DAILY PRN PRN Reason: Constipation Stop: 08/28/17 16:00 Chlorhexidine Gluconate (Peridex) 10 ml MM QSHIFT [facility] Stop: 08/28/17 19:59 Last Admin: 07/01/17 09:54 Dose: 10 ml Cholecalciferol (Vitamin D3) 1,000 iu GT DAILY [facility] Stop: 08/29/17 08:59 Last Admin: 07/01/17 09:54 Dose: 1,000 iu Docusate Sodium (Colace) 100 mg PO DAILY [facility] Stop: 08/29/17 08:59 Last Admin: 07/01/17 09:53 Dose: 100 mg Gentamicin Sulfate 80 mg/ (Sodium Chloride) 102 mls @ 100 mls/hr IV Q24H [facility] Stop: 08/30/17 01:59 Last Admin: 07/01/17 02:59 Dose: 100 mls/hr Insulin Aspart (Novolog Insulin Sliding Scale) 0 units SUBQ Q6HR [facility] PRN Reason: Protocol Stop: 08/28/17 17:59 Last Admin: 07/01/17 12:24 Dose: 4 units Lorazepam (Ativan) 0.5 mg GT Q6H PRN; Protocol PRN Reason: Anxiety Stop: 08/28/17 17:52 Last Admin: 07/01/17 11:09 Dose: 0.5 mg Magnesium Hydroxide (Milk Of Magnesia) 30 ml GT Q72H PRN PRN Reason: Constipation Stop: 08/28/17 17:46 Mirtazapine (Remeron) 15 mg GT HS FOUZIA PRN Reason: Protocol Stop: 08/28/17 20:59 Last Admin: 06/30/17 20:12 Dose: 15 mg Miscellaneous (Vancomycin Iv Per Pharmacy) 1 ea PRN FOUZIA Stop: 08/28/17 19:14 Miscellaneous (Gentamicin Iv Per Pharmacy) 1 ea PRN PRN PRN Reason: PROTOCOL Stop: 08/28/17 19:10 Ondansetron HCl (Zofran Odt) 4 mg PO Q6H PRN PRN Reason: Nausea / Vomiting Stop: 08/28/17 15:59 Pantoprazole Sodium (Protonix) 40 mg GT DAILY FOUZIA Stop: 08/29/17 08:59 Last Admin: 07/01/17 09:54 Dose: 40 mg Potassium Chloride (Potassium Chloride Elixir) 40 meq GT X1 ONE Stop: 07/01/17 13:18 Simethicone (Mylicon) 80 mg GT Q6HR PRN PRN Reason: Gas Stop: 08/28/17 15:52 Sodium Phosphate (Fleet Enema) 118 ml RC PRN PRN PRN Reason: IF MOM/DULCOLAX INEFFECTIVE Stop: 08/28/17 19:11 Temazepam (Restoril) 15 mg PO HS PRN; Protocol PRN Reason: Insomnia Stop: 08/28/17 17:55 Last Admin: 07/01/17 03:16 Dose: 15 mg Vitamin B Complex/Vit C/Folic Acid (Vitamin B Complex W/Vitamin C) 1 tab GT DAILY FOUZIA Stop: 08/29/17 08:59 Last Admin: 07/01/17 09:53 Dose: 1 tab Zinc Sulfate (Zinc Sulfate) 220 mg GT DAILY FOUZIA Stop: 08/29/17 08:59 Last Admin: 07/01/17 09:55 Dose: 220 mg General: no acute distress, well developed, well nourished HEENT: atraumatic, normocephalic, PERRLA, EOMI, moist mucous membrane Neck: supple, tracheostomy, no thyromegaly, no lymphadenopathy Cardiovascular: S1S2, regular Lungs: clear to auscultation bilaterally, clear to percussion Abdomen: soft, no tender, no distended, no mass, no rebound Extremities: no cyanosis, no clubbing, no edema Neurological: awake, alert, oriented Infectious Disease Assmt/Plan - Problem List Patient Problems: All Active Problems 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 AV shunt malfunction. 2. CKD 5 on HD. 3. CHF. 4. DM2 5. HTN. 6. Respiratory failure. - Plan Plan: CPM.
--- NOTE | 2017-07-01 13:27 | Infectious Disease Prog Note ---
Infectious Disease Subjective - Review of Systems Service Date: 07/01/17 Subjective: No fever, doing well. On T bar. Infectious Disease Objective - Results Result Diagrams: 07/01/17 06:00 07/01/17 06:00 Recent Labs: Laboratory Last Values WBC 6.9 Th/cmm (4.8-10.8) 07/01/17 06:00 RBC 2.63 Mil/cmm (3.80-5.20) L 07/01/17 06:00 Hgb 8.5 gm/dL (12-16) L 07/01/17 06:00 Hct 26.5 % (41.0-60) L D 07/01/17 06:00 MCV 101.0 fl (81-100) H 07/01/17 06:00 MCH 32.5 pg (27.0-31.0) H 07/01/17 06:00 MCHC Differential 32.2 pg (28.0-36.0) 07/01/17 06:00 RDW 18.8 % (11.5-20.0) 07/01/17 06:00 Plt Count 201 Th/cmm (150-400) 07/01/17 06:00 MPV 9.6 fl 07/01/17 06:00 Neutrophils % 74.9 % (40.0-80.0) 06/29/17 11:02 Band Neutrophils % Not Reportable 07/01/17 06:00 Lymphocytes % 9.2 % (20.0-50.0) L 06/29/17 11:02 Monocytes % 13.7 % (2.0-10.0) H 06/29/17 11:02 Eosinophils % 1.5 % (0.0-5.0) 06/29/17 11:02 Basophils % 0.7 % (0.0-2.0) 06/29/17 11:02 Neutrophils (Manual) 71 % (40-80) 07/01/17 06:00 Lymphocytes 18 % (20-50) L 07/01/17 06:00 Monocytes 9 % (2-10) 07/01/17 06:00 Eosinophils 2 % (0-5) 07/01/17 06:00 Basophils 1 % (0-3) 06/30/17 05:30 Sodium 132 mEq/L (136-145) L 07/01/17 06:00 Potassium 3.2 mEq/L (3.5-5.1) L 07/01/17 06:00 Chloride 94 mEq/L (98-107) L 07/01/17 06:00 Carbon Dioxide 30.1 mEq/L (21.0-31.0) 07/01/17 06:00 Anion Gap 11.1 (7.0-16.0) 07/01/17 06:00 BUN 38 mg/dL (7-25) H 07/01/17 06:00 Creatinine 2.1 mg/dL (0.6-1.2) H 07/01/17 06:00 Est GFR ( Amer) TNP 07/01/17 06:00 Est GFR (Non-Af Amer) TNP 07/01/17 06:00 BUN/Creatinine Ratio 18.1 07/01/17 06:00 Glucose 254 mg/dL (70-105) H 07/01/17 06:00 POC Glucose 207 MG/DL (70 - 105) H 07/01/17 00:36 Hemoglobin A1c % 7.2 % (4.0-6.0) H 06/30/17 05:20 Calcium 8.4 mg/dL (8.6-10.3) L 07/01/17 06:00 Total Bilirubin 0.3 mg/dL (0.3-1.0) 06/30/17 05:30 AST 20 U/L (13-39) 06/30/17 05:30 ALT 14 U/L (7-52) 06/30/17 05:30 Alkaline Phosphatase 149 U/L (34-104) H 06/30/17 05:30 Total Protein 6.6 gm/dL (6.0-8.3) 06/30/17 05:30 Albumin 3.5 gm/dL (3.7-5.3) L 06/30/17 05:30 Globulin 3.1 gm/dL 06/30/17 05:30 Albumin/Globulin Ratio 1.1 (1.0-1.8) 06/30/17 05:30 Random Vancomycin 10.9 ug/mL (5.0-40.0) 07/01/17 06:00 Blood Type A POSITIVE 06/30/17 15:53 Antibody Screen NEGATIVE 06/30/17 15:53 Crossmatch See Detail 06/30/17 15:53 - Physical Exam Vitals and I&O: Vital Signs Temp 97.5 F 07/01/17 04:00 Pulse 98 07/01/17 04:00 Resp 18 07/01/17 04:00 BP 101/80 07/01/17 04:00 Pulse Ox 100 07/01/17 04:00 Active Medications: Current Medications Acetaminophen (Tylenol 650mg/20.3ml Suspension) 650 mg GT DAILY [facility] Stop: 08/29/17 08:59 Last Admin: 07/01/17 09:52 Dose: 650 mg Acetaminophen (Tylenol 650mg/20.3ml Suspension) 650 mg GT Q4H PRN PRN Reason: FOR TEMP > 100 OR PAIN Stop: 08/28/17 17:49 Ascorbic Acid (Vitamin C) 500 mg GT DAILY [facility] Stop: 08/29/17 08:59 Last Admin: 07/01/17 09:53 Dose: 500 mg Aspirin (Aspirin Chewable) 81 mg GT DAILY [facility] Stop: 08/29/17 08:59 Last Admin: 07/01/17 09:54 Dose: 81 mg Atorvastatin Calcium (Lipitor) 40 mg GT HS [facility] PRN Reason: Protocol Stop: 08/28/17 20:59 Last Admin: 06/30/17 20:12 Dose: 40 mg Bisacodyl (Dulcolax 10 Mg Supp) 10 mg RC DAILY PRN PRN Reason: Constipation Stop: 08/28/17 16:00 Chlorhexidine Gluconate (Peridex) 10 ml MM QSHIFT [facility] Stop: 08/28/17 19:59 Last Admin: 07/01/17 09:54 Dose: 10 ml Cholecalciferol (Vitamin D3) 1,000 iu GT DAILY [facility] Stop: 08/29/17 08:59 Last Admin: 07/01/17 09:54 Dose: 1,000 iu Docusate Sodium (Colace) 100 mg PO DAILY [facility] Stop: 08/29/17 08:59 Last Admin: 07/01/17 09:53 Dose: 100 mg Gentamicin Sulfate 80 mg/ (Sodium Chloride) 102 mls @ 100 mls/hr IV Q24H [facility] Stop: 08/30/17 01:59 Last Admin: 07/01/17 02:59 Dose: 100 mls/hr Insulin Aspart (Novolog Insulin Sliding Scale) 0 units SUBQ Q6HR [facility] PRN Reason: Protocol Stop: 08/28/17 17:59 Last Admin: 07/01/17 12:24 Dose: 4 units Lorazepam (Ativan) 0.5 mg GT Q6H PRN; Protocol PRN Reason: Anxiety Stop: 08/28/17 17:52 Last Admin: 07/01/17 11:09 Dose: 0.5 mg Magnesium Hydroxide (Milk Of Magnesia) 30 ml GT Q72H PRN PRN Reason: Constipation Stop: 08/28/17 17:46 Mirtazapine (Remeron) 15 mg GT HS [facility] PRN Reason: Protocol Stop: 08/28/17 20:59 Last Admin: 06/30/17 20:12 Dose: 15 mg Miscellaneous (Vancomycin Iv Per Pharmacy) 1 ea PRN [facility] Stop: 08/28/17 19:14 Miscellaneous (Gentamicin Iv Per Pharmacy) 1 ea PRN PRN PRN Reason: PROTOCOL Stop: 08/28/17 19:10 Ondansetron HCl (Zofran Odt) 4 mg PO Q6H PRN PRN Reason: Nausea / Vomiting Stop: 08/28/17 15:59 Pantoprazole Sodium (Protonix) 40 mg GT DAILY [facility] Stop: 08/29/17 08:59 Last Admin: 07/01/17 09:54 Dose: 40 mg Potassium Chloride (Potassium Chloride Elixir) 40 meq GT X1 ONE Stop: 07/01/17 13:18 Simethicone (Mylicon) 80 mg GT Q6HR PRN PRN Reason: Gas Stop: 08/28/17 15:52 Sodium Phosphate (Fleet Enema) 118 ml RC PRN PRN PRN Reason: IF MOM/DULCOLAX INEFFECTIVE Stop: 08/28/17 19:11 Temazepam (Restoril) 15 mg PO HS PRN; Protocol PRN Reason: Insomnia Stop: 08/28/17 17:55 Last Admin: 07/01/17 03:16 Dose: 15 mg Vitamin B Complex/Vit C/Folic Acid (Vitamin B Complex W/Vitamin C) 1 tab GT DAILY [facility] Stop: 08/29/17 08:59 Last Admin: 07/01/17 09:53 Dose: 1 tab Zinc Sulfate (Zinc Sulfate) 220 mg GT DAILY [facility] Stop: 08/29/17 08:59 Last Admin: 07/01/17 09:55 Dose: 220 mg General: no acute distress, well developed, well nourished HEENT: atraumatic, normocephalic, PERRLA Neck: supple, no thyromegaly Cardiovascular: S1S2, regular Lungs: clear to auscultation bilaterally, clear to percussion Abdomen: soft, no tender Extremities: no cyanosis, no clubbing, no edema Neurological: awake, alert, oriented Skin: other (decubitus.) Infectious Disease Assmt/Plan - Problem List Patient Problems: All Active Problems 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 AV shunt malfunction. 2. Pneumonia. 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 4. DM2 5. HTN. 6. Respiratory failure. 7.CHF. - Plan Plan: start levaquin.
[2017-07-01 14:17] LABS: HEP A AB IGM Negative (Negative); HEP B CORE IGM Negative (Negative); HEP B SURFACE AG QL Negative (Negative); HEP C ANTIBODY 0.2 s/co ratio (0.0-0.9)
--- NOTE | 2017-07-01 14:19 | General Progress Note ---
Subjective - Review of Systems Service Date: 07/01/17 Subjective: alert, anxious Objective - Results Result Diagrams: 07/01/17 06:00 07/01/17 06:00 Recent Labs: Laboratory Last Values WBC 6.9 Th/cmm (4.8-10.8) 07/01/17 06:00 RBC 2.63 Mil/cmm (3.80-5.20) L 07/01/17 06:00 Hgb 8.5 gm/dL (12-16) L 07/01/17 06:00 Hct 26.5 % (41.0-60) L D 07/01/17 06:00 MCV 101.0 fl (81-100) H 07/01/17 06:00 MCH 32.5 pg (27.0-31.0) H 07/01/17 06:00 MCHC Differential 32.2 pg (28.0-36.0) 07/01/17 06:00 RDW 18.8 % (11.5-20.0) 07/01/17 06:00 Plt Count 201 Th/cmm (150-400) 07/01/17 06:00 MPV 9.6 fl 07/01/17 06:00 Neutrophils % 74.9 % (40.0-80.0) 06/29/17 11:02 Band Neutrophils % Not Reportable 07/01/17 06:00 Lymphocytes % 9.2 % (20.0-50.0) L 06/29/17 11:02 Monocytes % 13.7 % (2.0-10.0) H 06/29/17 11:02 Eosinophils % 1.5 % (0.0-5.0) 06/29/17 11:02 Basophils % 0.7 % (0.0-2.0) 06/29/17 11:02 Neutrophils (Manual) 71 % (40-80) 07/01/17 06:00 Lymphocytes 18 % (20-50) L 07/01/17 06:00 Monocytes 9 % (2-10) 07/01/17 06:00 Eosinophils 2 % (0-5) 07/01/17 06:00 Basophils 1 % (0-3) 06/30/17 05:30 Sodium 132 mEq/L (136-145) L 07/01/17 06:00 Potassium 3.2 mEq/L (3.5-5.1) L 07/01/17 06:00 Chloride 94 mEq/L (98-107) L 07/01/17 06:00 Carbon Dioxide 30.1 mEq/L (21.0-31.0) 07/01/17 06:00 Anion Gap 11.1 (7.0-16.0) 07/01/17 06:00 BUN 38 mg/dL (7-25) H 07/01/17 06:00 Creatinine 2.1 mg/dL (0.6-1.2) H 07/01/17 06:00 Est GFR ( Amer) TNP 07/01/17 06:00 Est GFR (Non-Af Amer) TNP 07/01/17 06:00 BUN/Creatinine Ratio 18.1 07/01/17 06:00 Glucose 254 mg/dL (70-105) H 07/01/17 06:00 POC Glucose 207 MG/DL (70 - 105) H 07/01/17 00:36 Hemoglobin A1c % 7.2 % (4.0-6.0) H 06/30/17 05:20 Calcium 8.4 mg/dL (8.6-10.3) L 07/01/17 06:00 Total Bilirubin 0.3 mg/dL (0.3-1.0) 06/30/17 05:30 AST 20 U/L (13-39) 06/30/17 05:30 ALT 14 U/L (7-52) 06/30/17 05:30 Alkaline Phosphatase 149 U/L (34-104) H 06/30/17 05:30 Total Protein 6.6 gm/dL (6.0-8.3) 06/30/17 05:30 Albumin 3.5 gm/dL (3.7-5.3) L 06/30/17 05:30 Globulin 3.1 gm/dL 06/30/17 05:30 Albumin/Globulin Ratio 1.1 (1.0-1.8) 06/30/17 05:30 Random Vancomycin 10.9 ug/mL (5.0-40.0) 07/01/17 06:00 Blood Type A POSITIVE 06/30/17 15:53 Antibody Screen NEGATIVE 06/30/17 15:53 Crossmatch See Detail 06/30/17 15:53 - Physical Exam Vitals and I&O: Vital Signs Temp 97.5 F 07/01/17 04:00 Pulse 98 07/01/17 04:00 Resp 18 07/01/17 04:00 BP 101/80 07/01/17 04:00 Pulse Ox 100 07/01/17 04:00 Active Medications: Current Medications Acetaminophen (Tylenol 650mg/20.3ml Suspension) 650 mg GT DAILY [facility] Stop: 08/29/17 08:59 Last Admin: 07/01/17 09:52 Dose: 650 mg Acetaminophen (Tylenol 650mg/20.3ml Suspension) 650 mg GT Q4H PRN PRN Reason: FOR TEMP > 100 OR PAIN Stop: 08/28/17 17:49 Ascorbic Acid (Vitamin C) 500 mg GT DAILY [facility] Stop: 08/29/17 08:59 Last Admin: 07/01/17 09:53 Dose: 500 mg Aspirin (Aspirin Chewable) 81 mg GT DAILY [facility] Stop: 08/29/17 08:59 Last Admin: 07/01/17 09:54 Dose: 81 mg Atorvastatin Calcium (Lipitor) 40 mg GT HS [facility] PRN Reason: Protocol Stop: 08/28/17 20:59 Last Admin: 06/30/17 20:12 Dose: 40 mg Bisacodyl (Dulcolax 10 Mg Supp) 10 mg RC DAILY PRN PRN Reason: Constipation Stop: 08/28/17 16:00 Chlorhexidine Gluconate (Peridex) 10 ml MM QSHIFT [facility] Stop: 08/28/17 19:59 Last Admin: 07/01/17 09:54 Dose: 10 ml Cholecalciferol (Vitamin D3) 1,000 iu GT DAILY [facility] Stop: 08/29/17 08:59 Last Admin: 07/01/17 09:54 Dose: 1,000 iu Docusate Sodium (Colace) 100 mg PO DAILY [facility] Stop: 08/29/17 08:59 Last Admin: 07/01/17 09:53 Dose: 100 mg Gentamicin Sulfate 80 mg/ (Sodium Chloride) 102 mls @ 100 mls/hr IV Q24H [facility] Stop: 08/30/17 01:59 Last Admin: 07/01/17 02:59 Dose: 100 mls/hr Levofloxacin (Levaquin Pb) 500 mg in 100 mls @ 100 mls/hr IV ONETIME [facility] Stop: 08/30/17 13:29 Levofloxacin (Levaquin Pb) 250 mg in 50 mls @ 50 mls/hr IV Q48HR [facility] Stop: 08/31/17 13:29 Insulin Aspart (Novolog Insulin Sliding Scale) 0 units SUBQ Q6HR [facility] PRN Reason: Protocol Stop: 08/28/17 17:59 Last Admin: 07/01/17 12:24 Dose: 4 units Lorazepam (Ativan) 0.5 mg GT Q6H PRN; Protocol PRN Reason: Anxiety Stop: 08/28/17 17:52 Last Admin: 07/01/17 11:09 Dose: 0.5 mg Magnesium Hydroxide (Milk Of Magnesia) 30 ml GT Q72H PRN PRN Reason: Constipation Stop: 08/28/17 17:46 Mirtazapine (Remeron) 15 mg GT HS [facility] PRN Reason: Protocol Stop: 08/28/17 20:59 Last Admin: 06/30/17 20:12 Dose: 15 mg Miscellaneous (Vancomycin Iv Per Pharmacy) 1 ea MC PRN [facility] Stop: 08/28/17 19:14 Miscellaneous (Gentamicin Iv Per Pharmacy) 1 ea MC PRN PRN PRN Reason: PROTOCOL Stop: 08/28/17 19:10 Ondansetron HCl (Zofran Odt) 4 mg PO Q6H PRN PRN Reason: Nausea / Vomiting Stop: 08/28/17 15:59 Pantoprazole Sodium (Protonix) 40 mg GT DAILY [facility] Stop: 08/29/17 08:59 Last Admin: 07/01/17 09:54 Dose: 40 mg Potassium Chloride (Potassium Chloride Elixir) 40 meq GT X1 ONE Stop: 07/01/17 13:18 Potassium Chloride (Klor-Con) 20 meq PO X1 ONE Stop: 07/01/17 14:14 Simethicone (Mylicon) 80 mg GT Q6HR PRN PRN Reason: Gas Stop: 08/28/17 15:52 Sodium Phosphate (Fleet Enema) 118 ml RC PRN PRN PRN Reason: IF MOM/DULCOLAX INEFFECTIVE Stop: 08/28/17 19:11 Temazepam (Restoril) 15 mg PO HS PRN; Protocol PRN Reason: Insomnia Stop: 08/28/17 17:55 Last Admin: 07/01/17 03:16 Dose: 15 mg Vitamin B Complex/Vit C/Folic Acid (Vitamin B Complex W/Vitamin C) 1 tab GT DAILY [facility] Stop: 08/29/17 08:59 Last Admin: 07/01/17 09:53 Dose: 1 tab Zinc Sulfate (Zinc Sulfate) 220 mg GT DAILY [facility] Stop: 08/29/17 08:59 Last Admin: 07/01/17 09:55 Dose: 220 mg General: Alert, Other (anxious) HEENT: Atraumatic, Mucous membr. 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 - Assessment Assessment: ESRD on HD Chronic resp failur on T-piece Anxiety/Depression Ess Htn Type 2 DM Morbid obesity Multiple Ulcers - Plan Plan: Lab - Result Diagrams 07/01/17 06:00 07/01/17 06:00 Current Medications Acetaminophen (Tylenol 650mg/20.3ml Suspension) 650 mg GT DAILY [facility] Stop: 08/29/17 08:59 Last Admin: 07/01/17 09:52 Dose: 650 mg Acetaminophen (Tylenol 650mg/20.3ml Suspension) 650 mg GT Q4H PRN PRN Reason: FOR TEMP > 100 OR PAIN Stop: 08/28/17 17:49 Ascorbic Acid (Vitamin C) 500 mg GT DAILY [facility] Stop: 08/29/17 08:59 Last Admin: 07/01/17 09:53 Dose: 500 mg Aspirin (Aspirin Chewable) 81 mg GT DAILY [facility] Stop: 08/29/17 08:59 Last Admin: 07/01/17 09:54 Dose: 81 mg Atorvastatin Calcium (Lipitor) 40 mg GT HS [facility] PRN Reason: Protocol Stop: 08/28/17 20:59 Last Admin: 06/30/17 20:12 Dose: 40 mg Bisacodyl (Dulcolax 10 Mg Supp) 10 mg RC DAILY PRN PRN Reason: Constipation Stop: 08/28/17 16:00 Chlorhexidine Gluconate (Peridex) 10 ml MM QSHIFT [facility] Stop: 08/28/17 19:59 Last Admin: 07/01/17 09:54 Dose: 10 ml Cholecalciferol (Vitamin D3) 1,000 iu GT DAILY [facility] Stop: 08/29/17 08:59 Last Admin: 07/01/17 09:54 Dose: 1,000 iu Docusate Sodium (Colace) 100 mg PO DAILY [facility] Stop: 08/29/17 08:59 Last Admin: 07/01/17 09:53 Dose: 100 mg Gentamicin Sulfate 80 mg/ (Sodium Chloride) 102 mls @ 100 mls/hr IV Q24H [facility] Stop: 08/30/17 01:59 Last Admin: 07/01/17 02:59 Dose: 100 mls/hr Levofloxacin (Levaquin Pb) 500 mg in 100 mls @ 100 mls/hr IV ONETIME [facility] Stop: 08/30/17 13:29 Levofloxacin (Levaquin Pb) 250 mg in 50 mls @ 50 mls/hr IV Q48HR [facility] Stop: 08/31/17 13:29 Insulin Aspart (Novolog Insulin Sliding Scale) 0 units SUBQ Q6HR [facility] PRN Reason: Protocol Stop: 08/28/17 17:59 Last Admin: 07/01/17 12:24 Dose: 4 units Lorazepam (Ativan) 0.5 mg GT Q6H PRN; Protocol PRN Reason: Anxiety Stop: 08/28/17 17:52 Last Admin: 07/01/17 11:09 Dose: 0.5 mg Magnesium Hydroxide (Milk Of Magnesia) 30 ml GT Q72H PRN PRN Reason: Constipation Stop: 08/28/17 17:46 Mirtazapine (Remeron) 15 mg GT [facility] PRN Reason: Protocol Stop: 08/28/17 20:59 Last Admin: 06/30/17 20:12 Dose: 15 mg Miscellaneous (Vancomycin Iv Per Pharmacy) 1 ea MC PRN [facility] Stop: 08/28/17 19:14 Miscellaneous (Gentamicin Iv Per Pharmacy) 1 ea MC PRN PRN PRN Reason: PROTOCOL Stop: 08/28/17 19:10 Ondansetron HCl (Zofran Odt) 4 mg PO Q6H PRN PRN Reason: Nausea / Vomiting Stop: 08/28/17 15:59 Pantoprazole Sodium (Protonix) 40 mg GT DAILY [facility] Stop: 08/29/17 08:59 Last Admin: 07/01/17 09:54 Dose: 40 mg Potassium Chloride (Potassium Chloride Elixir) 40 meq GT X1 ONE Stop: 07/01/17 13:18 Potassium Chloride (Klor-Con) 20 meq PO X1 ONE Stop: 07/01/17 14:14 Simethicone (Mylicon) 80 mg GT Q6HR PRN PRN Reason: Gas Stop: 08/28/17 15:52 Sodium Phosphate (Fleet Enema) 118 ml RC PRN PRN PRN Reason: IF MOM/DULCOLAX INEFFECTIVE Stop: 08/28/17 19:11 Temazepam (Restoril) 15 mg PO HS PRN; Protocol PRN Reason: Insomnia Stop: 08/28/17 17:55 Last Admin: 07/01/17 03:16 Dose: 15 mg Vitamin B Complex/Vit C/Folic Acid (Vitamin B Complex W/Vitamin C) 1 tab GT DAILY [facility] Stop: 08/29/17 08:59 Last Admin: 07/01/17 09:53 Dose: 1 tab Zinc Sulfate (Zinc Sulfate) 220 mg GT DAILY [facility] Stop: 08/29/17 08:59 Last Admin: 07/01/17 09:55 Dose: 220 mg Lab - Result Diagrams 07/01/17 06:00 07/01/17 06:00 Pt. was dialyzed yesterday & tolerated it well schedule for HD in am replace K
[2017-07-01] MEDS ORDERED: Probiotic Screen MC PRN (15:38)
[2017-07-01] MEDS ORDERED: Levofloxacin 500mg/100mL 500 MG/100 ML BAG IV ONE (16:00)
[2017-07-01] MEDS ORDERED: Potassium Chloride 20 mEq ER Tab PO ONE (16:00)
--- NOTE | 2017-07-01 17:03 | General Progress Note ---
Subjective - Review of Systems Service Date: 07/01/17 Events since last encounter: successful use of left arm fistula for HD yesterday Objective - Results Result Diagrams: 07/01/17 06:00 07/01/17 06:00 Recent Labs: Laboratory Last Values WBC 6.9 Th/cmm (4.8-10.8) 07/01/17 06:00 RBC 2.63 Mil/cmm (3.80-5.20) L 07/01/17 06:00 Hgb 8.5 gm/dL (12-16) L 07/01/17 06:00 Hct 26.5 % (41.0-60) L D 07/01/17 06:00 MCV 101.0 fl (81-100) H 07/01/17 06:00 MCH 32.5 pg (27.0-31.0) H 07/01/17 06:00 MCHC Differential 32.2 pg (28.0-36.0) 07/01/17 06:00 RDW 18.8 % (11.5-20.0) 07/01/17 06:00 Plt Count 201 Th/cmm (150-400) 07/01/17 06:00 MPV 9.6 fl 07/01/17 06:00 Neutrophils % 74.9 % (40.0-80.0) 06/29/17 11:02 Band Neutrophils % Not Reportable 07/01/17 06:00 Lymphocytes % 9.2 % (20.0-50.0) L 06/29/17 11:02 Monocytes % 13.7 % (2.0-10.0) H 06/29/17 11:02 Eosinophils % 1.5 % (0.0-5.0) 06/29/17 11:02 Basophils % 0.7 % (0.0-2.0) 06/29/17 11:02 Neutrophils (Manual) 71 % (40-80) 07/01/17 06:00 Lymphocytes 18 % (20-50) L 07/01/17 06:00 Monocytes 9 % (2-10) 07/01/17 06:00 Eosinophils 2 % (0-5) 07/01/17 06:00 Basophils 1 % (0-3) 06/30/17 05:30 Sodium 132 mEq/L (136-145) L 07/01/17 06:00 Potassium 3.2 mEq/L (3.5-5.1) L 07/01/17 06:00 Chloride 94 mEq/L (98-107) L 07/01/17 06:00 Carbon Dioxide 30.1 mEq/L (21.0-31.0) 07/01/17 06:00 Anion Gap 11.1 (7.0-16.0) 07/01/17 06:00 BUN 38 mg/dL (7-25) H 07/01/17 06:00 Creatinine 2.1 mg/dL (0.6-1.2) H 07/01/17 06:00 Est GFR ( Amer) TNP 07/01/17 06:00 Est GFR (Non-Af Amer) TNP 07/01/17 06:00 BUN/Creatinine Ratio 18.1 07/01/17 06:00 Glucose 254 mg/dL (70-105) H 07/01/17 06:00 POC Glucose 79 MG/DL (70 - 105) 07/01/17 16:29 Hemoglobin A1c % 7.2 % (4.0-6.0) H 06/30/17 05:20 Calcium 8.4 mg/dL (8.6-10.3) L 07/01/17 06:00 Total Bilirubin 0.3 mg/dL (0.3-1.0) 06/30/17 05:30 AST 20 U/L (13-39) 06/30/17 05:30 ALT 14 U/L (7-52) 06/30/17 05:30 Alkaline Phosphatase 149 U/L (34-104) H 06/30/17 05:30 Total Protein 6.6 gm/dL (6.0-8.3) 06/30/17 05:30 Albumin 3.5 gm/dL (3.7-5.3) L 06/30/17 05:30 Globulin 3.1 gm/dL 06/30/17 05:30 Albumin/Globulin Ratio 1.1 (1.0-1.8) 06/30/17 05:30 Random Vancomycin 10.9 ug/mL (5.0-40.0) 07/01/17 06:00 Hepatitis A IgM Ab Negative (Negative) 06/30/17 05:00 Hep Bs Antigen Negative (Negative) 06/30/17 05:00 Hep B Core IgM Ab Negative (Negative) 06/30/17 05:00 Hepatitis C Antibody 0.2 s/co ratio (0.0-0.9) 06/30/17 05:00 Blood Type A POSITIVE 06/30/17 15:53 Antibody Screen NEGATIVE 06/30/17 15:53 Crossmatch See Detail 06/30/17 15:53 - Physical Exam Vitals and I&O: Vital Signs Temp 97.5 F 07/01/17 04:00 Pulse 66 07/01/17 10:30 Resp 16 07/01/17 10:30 BP 101/80 07/01/17 04:00 Pulse Ox 97 07/01/17 10:30 Intake & Output 06/30/17 07/01/17 07/01/17 18:59 06:59 18:59 Weight (lbs) 79.379 kg Active Medications: Current Medications Acetaminophen (Tylenol 650mg/20.3ml Suspension) 650 mg GT DAILY [facility] Stop: 08/29/17 08:59 Last Admin: 07/01/17 09:52 Dose: 650 mg Acetaminophen (Tylenol 650mg/20.3ml Suspension) 650 mg GT Q4H PRN PRN Reason: FOR TEMP > 100 OR PAIN Stop: 08/28/17 17:49 Alprazolam (Xanax) 0.25 mg PO Q8H PRN; Protocol PRN Reason: Anxiety Stop: 08/30/17 14:16 Ascorbic Acid (Vitamin C) 500 mg GT DAILY [facility] Stop: 08/29/17 08:59 Last Admin: 07/01/17 09:53 Dose: 500 mg Aspirin (Aspirin Chewable) 81 mg GT DAILY [facility] Stop: 08/29/17 08:59 Last Admin: 07/01/17 09:54 Dose: 81 mg Atorvastatin Calcium (Lipitor) 40 mg GT HS [facility] PRN Reason: Protocol Stop: 08/28/17 20:59 Last Admin: 06/30/17 20:12 Dose: 40 mg Bisacodyl (Dulcolax 10 Mg Supp) 10 mg RC DAILY PRN PRN Reason: Constipation Stop: 08/28/17 16:00 Chlorhexidine Gluconate (Peridex) 10 ml MM QSHIFT [facility]OU[facility]IA Stop: 08/28/17 19:59 Last Admin: 01/23/18 09:54 Dose: 10 ml Cholecalciferol (Vitamin D3) 1,000 iu GT DAILY [facility] Stop: 08/29/17 08:59 Last Admin: 07/01/17 09:54 Dose: 1,000 iu Docusate Sodium (Colace) 100 mg PO DAILY [facility] Stop: 08/29/17 08:59 Last Admin: 07/01/17 09:53 Dose: 100 mg Gentamicin Sulfate 80 mg/ (Sodium Chloride) 102 mls @ 100 mls/hr IV Q24H [facility] Stop: 08/30/17 01:59 Last Admin: 07/01/17 02:59 Dose: 100 mls/hr Levofloxacin (Levaquin Pb) 250 mg in 50 mls @ 50 mls/hr IV Q48H [facility] Stop: 09/01/17 15:59 Insulin Aspart (Novolog Insulin Sliding Scale) 0 units SUBQ Q6HR [facility]OU[facility]IA PRN Reason: Protocol Stop: 08/28/17 17:59 Last Admin: 07/01/17 12:24 Dose: 4 units Lactobacillus Rhamnosus (Culturelle 15b) 1 each PO DAILY [facility] Stop: 08/30/17 15:59 Lorazepam (Ativan) 0.5 mg GT Q6H PRN; Protocol PRN Reason: Anxiety Stop: 08/28/17 17:52 Last Admin: 07/01/17 11:09 Dose: 0.5 mg Magnesium Hydroxide (Milk Of Magnesia) 30 ml GT Q72H PRN PRN Reason: Constipation Stop: 08/28/17 17:46 Mirtazapine (Remeron) 15 mg GT HS [facility]OUZIA PRN Reason: Protocol Stop: 08/28/17 20:59 Last Admin: 06/30/17 20:12 Dose: 15 mg Miscellaneous (Vancomycin Iv Per Pharmacy) 1 ea MC PRN [facility] Stop: 08/28/17 19:14 Miscellaneous (Gentamicin Iv Per Pharmacy) 1 ea MC PRN PRN PRN Reason: PROTOCOL Stop: 08/28/17 19:10 Miscellaneous (Probiotic Screen) 1 ea MC PRN PRN PRN Reason: PROTOCOL Stop: 08/30/17 15:37 Ondansetron HCl (Zofran Odt) 4 mg PO Q6H PRN PRN Reason: Nausea / Vomiting Stop: 08/28/17 15:59 Pantoprazole Sodium (Protonix) 40 mg GT DAILY [facility] Stop: 08/29/17 08:59 Last Admin: 07/01/17 09:54 Dose: 40 mg Simethicone (Mylicon) 80 mg GT Q6HR PRN PRN Reason: Gas Stop: 08/28/17 15:52 Sodium Phosphate (Fleet Enema) 118 ml RC PRN PRN PRN Reason: IF MOM/DULCOLAX INEFFECTIVE Stop: 08/28/17 19:11 Temazepam (Restoril) 15 mg PO HS PRN; Protocol PRN Reason: Insomnia Stop: 08/28/17 17:55 Last Admin: 07/01/17 03:16 Dose: 15 mg Vitamin B Complex/Vit C/Folic Acid (Vitamin B Complex W/Vitamin C) 1 tab GT DAILY [facility]OU[facility] Stop: 08/29/17 08:59 Last Admin: 07/01/17 09:53 Dose: 1 tab Zinc Sulfate (Zinc Sulfate) 220 mg GT DAILY [facility] Stop: 08/29/17 08:59 Last Admin: 07/01/17 09:55 Dose: 220 mg General: Alert, Other (anxious) HEENT: Atraumatic, Mucous membr. 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
[2017-07-01] MEDS: Lactobacillus Rhamnosus GG 15 Billion CFU CAP.SPRINK PO SCH (17:12)
--- NOTE | 2017-07-01 17:13 | Consultation ---
DATE OF CONSULTATION: 06/29/2017 REFERRING PHYSICIAN: Dr. Barth. REASON FOR CONSULTATION: Malfunctioning Kwasi fistula. Thank you for referring this patient to me. HISTORY OF PRESENT ILLNESS: The patient was brought in because of malfunctioning Kwasi fistula, which was thought to be occluded. The arm is swollen and hard, but the ultrasound shows that the fistula is patent. Recommendations suggest using the fistula for dialysis and if this is unusable, we will consider a revision and/or thrombectomy. LABORATORY STUDIES: Now shows the hemoglobin at 7.8 grams with a WBC of 6.8. Sodium is low at 129, BUN is 39 with creatinine of 2.3. PHYSICAL EXAMINATION: The patient is only speaking, but the left arm is moderately swollen, but a thrill can be palpated. We will order ultrasound to see where restriction of flow is present and if necessary, a revise the fistula. JOB# [id number]
--- NOTE | 2017-07-01 18:54 | Internal Medicine Prog Note ---
Internal Medicine Subjective - Subjective Service Date: 07/01/17 Patient seen and examined:: with staff Patient is:: awake Per staff patient has:: tolerating meds Internal Medicine Objective - Results Result Diagrams: 07/01/17 06:00 07/01/17 06:00 Recent Labs: Laboratory Last Values WBC 6.9 Th/cmm (4.8-10.8) 07/01/17 06:00 RBC 2.63 Mil/cmm (3.80-5.20) L 07/01/17 06:00 Hgb 8.5 gm/dL (12-16) L 07/01/17 06:00 Hct 26.5 % (41.0-60) L D 07/01/17 06:00 MCV 101.0 fl (81-100) H 07/01/17 06:00 MCH 32.5 pg (27.0-31.0) H 07/01/17 06:00 MCHC Differential 32.2 pg (28.0-36.0) 07/01/17 06:00 RDW 18.8 % (11.5-20.0) 07/01/17 06:00 Plt Count 201 Th/cmm (150-400) 07/01/17 06:00 MPV 9.6 fl 07/01/17 06:00 Neutrophils % 74.9 % (40.0-80.0) 06/29/17 11:02 Band Neutrophils % Not Reportable 07/01/17 06:00 Lymphocytes % 9.2 % (20.0-50.0) L 06/29/17 11:02 Monocytes % 13.7 % (2.0-10.0) H 06/29/17 11:02 Eosinophils % 1.5 % (0.0-5.0) 06/29/17 11:02 Basophils % 0.7 % (0.0-2.0) 06/29/17 11:02 Neutrophils (Manual) 71 % (40-80) 07/01/17 06:00 Lymphocytes 18 % (20-50) L 07/01/17 06:00 Monocytes 9 % (2-10) 07/01/17 06:00 Eosinophils 2 % (0-5) 07/01/17 06:00 Basophils 1 % (0-3) 06/30/17 05:30 Sodium 132 mEq/L (136-145) L 07/01/17 06:00 Potassium 3.2 mEq/L (3.5-5.1) L 07/01/17 06:00 Chloride 94 mEq/L (98-107) L 07/01/17 06:00 Carbon Dioxide 30.1 mEq/L (21.0-31.0) 07/01/17 06:00 Anion Gap 11.1 (7.0-16.0) 07/01/17 06:00 BUN 38 mg/dL (7-25) H 07/01/17 06:00 Creatinine 2.1 mg/dL (0.6-1.2) H 07/01/17 06:00 Est GFR ( Amer) TNP 07/01/17 06:00 Est GFR (Non-Af Amer) TNP 07/01/17 06:00 BUN/Creatinine Ratio 18.1 07/01/17 06:00 Glucose 254 mg/dL (70-105) H 07/01/17 06:00 POC Glucose 79 MG/DL (70 - 105) 07/01/17 16:29 Hemoglobin A1c % 7.2 % (4.0-6.0) H 06/30/17 05:20 Calcium 8.4 mg/dL (8.6-10.3) L 07/01/17 06:00 Total Bilirubin 0.3 mg/dL (0.3-1.0) 06/30/17 05:30 AST 20 U/L (13-39) 06/30/17 05:30 ALT 14 U/L (7-52) 06/30/17 05:30 Alkaline Phosphatase 149 U/L (34-104) H 06/30/17 05:30 Total Protein 6.6 gm/dL (6.0-8.3) 06/30/17 05:30 Albumin 3.5 gm/dL (3.7-5.3) L 06/30/17 05:30 Globulin 3.1 gm/dL 06/30/17 05:30 Albumin/Globulin Ratio 1.1 (1.0-1.8) 06/30/17 05:30 Random Vancomycin 10.9 ug/mL (5.0-40.0) 07/01/17 06:00 Hepatitis A IgM Ab Negative (Negative) 06/30/17 05:00 Hep Bs Antigen Negative (Negative) 06/30/17 05:00 Hep B Core IgM Ab Negative (Negative) 06/30/17 05:00 Hepatitis C Antibody 0.2 s/co ratio (0.0-0.9) 06/30/17 05:00 Blood Type A POSITIVE 06/30/17 15:53 Antibody Screen NEGATIVE 06/30/17 15:53 Crossmatch See Detail 06/30/17 15:53 - Physical Exam Vitals and I&O: Vital Signs Temp 97.2 F 07/01/17 16:00 Pulse 67 07/01/17 16:00 Resp 18 07/01/17 16:00 BP 136/59 07/01/17 16:00 Pulse Ox 97 07/01/17 10:30 Intake & Output 06/30/17 07/01/17 07/01/17 18:59 06:59 18:59 Weight (lbs) 79.379 kg Active Medications: Current Medications Acetaminophen (Tylenol 650mg/20.3ml Suspension) 650 mg GT DAILY [facility] Stop: 08/29/17 08:59 Last Admin: 07/01/17 09:52 Dose: 650 mg Acetaminophen (Tylenol 650mg/20.3ml Suspension) 650 mg GT Q4H PRN PRN Reason: FOR TEMP > 100 OR PAIN Stop: 08/28/17 17:49 Alprazolam (Xanax) 0.25 mg PO Q8H PRN; Protocol PRN Reason: Anxiety Stop: 08/30/17 14:16 Last Admin: 07/01/17 17:10 Dose: 0.25 mg Ascorbic Acid (Vitamin C) 500 mg GT DAILY [facility] Stop: 08/29/17 08:59 Last Admin: 07/01/17 09:53 Dose: 500 mg Aspirin (Aspirin Chewable) 81 mg GT DAILY [facility] Stop: 08/29/17 08:59 Last Admin: 07/01/17 09:54 Dose: 81 mg Atorvastatin Calcium (Lipitor) 40 mg GT HS [facility] PRN Reason: Protocol Stop: 08/28/17 20:59 Last Admin: 06/30/17 20:12 Dose: 40 mg Bisacodyl (Dulcolax 10 Mg Supp) 10 mg RC DAILY PRN PRN Reason: Constipation Stop: 08/28/17 16:00 Chlorhexidine Gluconate (Peridex) 10 ml MM QSHIFT [facility] Stop: 08/28/17 19:59 Last Admin: 07/01/17 09:54 Dose: 10 ml Cholecalciferol (Vitamin D3) 1,000 iu GT DAILY [facility] Stop: 08/29/17 08:59 Last Admin: 07/01/17 09:54 Dose: 1,000 iu Docusate Sodium (Colace) 100 mg PO DAILY [facility] Stop: 08/29/17 08:59 Last Admin: 07/01/17 09:53 Dose: 100 mg Gentamicin Sulfate 80 mg/ (Sodium Chloride) 102 mls @ 100 mls/hr IV Q24H [facility] Stop: 08/30/17 01:59 Last Admin: 07/01/17 02:59 Dose: 100 mls/hr Levofloxacin (Levaquin Pb) 250 mg in 50 mls @ 50 mls/hr IV Q48H [facility] Stop: 09/01/17 15:59 Insulin Aspart (Novolog Insulin Sliding Scale) 0 units SUBQ Q6HR [facility] PRN Reason: Protocol Stop: 08/28/17 17:59 Last Admin: 07/01/17 12:24 Dose: 4 units Lactobacillus Rhamnosus (Culturelle 15b) 1 each PO DAILY [facility] Stop: 08/30/17 15:59 Last Admin: 07/01/17 17:12 Dose: 1 each Lorazepam (Ativan) 0.5 mg GT Q6H PRN; Protocol PRN Reason: Anxiety Stop: 08/28/17 17:52 Last Admin: 07/01/17 11:09 Dose: 0.5 mg Magnesium Hydroxide (Milk Of Magnesia) 30 ml GT Q72H PRN PRN Reason: Constipation Stop: 08/28/17 17:46 Mirtazapine (Remeron) 15 mg GT HS [facility] PRN Reason: Protocol Stop: 08/28/17 20:59 Last Admin: 06/30/17 20:12 Dose: 15 mg Miscellaneous (Vancomycin Iv Per Pharmacy) 1 ea MC PRN [facility] Stop: 08/28/17 19:14 Miscellaneous (Gentamicin Iv Per Pharmacy) 1 ea MC PRN PRN PRN Reason: PROTOCOL Stop: 08/28/17 19:10 Miscellaneous (Probiotic Screen) 1 ea MC PRN PRN PRN Reason: PROTOCOL Stop: 08/30/17 15:37 Ondansetron HCl (Zofran Odt) 4 mg PO Q6H PRN PRN Reason: Nausea / Vomiting Stop: 08/28/17 15:59 Pantoprazole Sodium (Protonix) 40 mg GT DAILY [facility] Stop: 08/29/17 08:59 Last Admin: 07/01/17 09:54 Dose: 40 mg Simethicone (Mylicon) 80 mg GT Q6HR PRN PRN Reason: Gas Stop: 08/28/17 15:52 Sodium Phosphate (Fleet Enema) 118 ml RC PRN PRN PRN Reason: IF MOM/DULCOLAX INEFFECTIVE Stop: 08/28/17 19:11 Temazepam (Restoril) 15 mg PO HS PRN; Protocol PRN Reason: Insomnia Stop: 08/28/17 17:55 Last Admin: 07/01/17 03:16 Dose: 15 mg Vitamin B Complex/Vit C/Folic Acid (Vitamin B Complex W/Vitamin C) 1 tab GT DAILY [facility] Stop: 08/29/17 08:59 Last Admin: 07/01/17 09:53 Dose: 1 tab Zinc Sulfate (Zinc Sulfate) 220 mg GT DAILY [facility] Stop: 08/29/17 08:59 Last Admin: 07/01/17 09:55 Dose: 220 mg General: weak HEENT: NC/AT, PERRLA Neck: Supple Lungs: ronchi Cardiovascular: without murmur Internal Medicine Assmt/Plan - Assessment Assessment: 1. AV shunt malfunction. 2. Pneumonia. 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 4. DM2 5. HTN. 6. Respiratory failure. 7.CHF. - Plan Plan: continue HD ivabx continue current plan of care
[2017-07-02] MEDS: INSULIN ASPART SLIDING SCALE 100 UNITS/ML UNIT SUBQ SCH ×5 (00:04→23:49)
[2017-07-02 07:51] LABS: ALB/GLOB RATIO 1.1 (1.0-1.8); ALBUMIN 3.7 gm/dL (3.7-5.3); ALKALINE PHOSPHATASE 248 U/L (34-104); ANION GAP 13.8 (7.0-16.0); BILIRUBIN,TOTAL 0.3 mg/dL (0.3-1.0); BUN - UREA NITROGEN 56 mg/dL (7-25); CALCIUM SERUM 8.8 mg/dL (8.6-10.3); CARBON DIOXIDE 28.7 mEq/L (21.0-31.0); CHLORIDE 94 mEq/L (98-107); GLUCOSE 253 mg/dL (70-105); POTASSIUM SERUM 3.5 mEq/L (3.5-5.1); SGOT 101 U/L (13-39); SGPT/ALT 59 U/L (7-52); SODIUM SERUM 133 mEq/L (136-145); TOTAL PROTEIN,SERUM 7.1 gm/dL (6.0-8.3)
[2017-07-02] MEDS: Vitamin B Complex w/Vitamin C Tab GT SCH (08:41)
[2017-07-02] MEDS: Aspirin 81mg Chewable Tab GT SCH (08:41)
[2017-07-02] MEDS: Lactobacillus Rhamnosus GG 15 Billion CFU CAP.SPRINK PO SCH (08:41)
[2017-07-02] MEDS: Pantoprazole 40 mg/Packet GT SCH (08:41)
[2017-07-02] MEDS: Chlorhexidine Gluconate 0.12% 480mL Bottle MM SCH ×2 (08:50→20:38)
--- NOTE | 2017-07-02 09:16 | General Progress Note ---
Subjective - Review of Systems Service Date: 07/02/17 Events since last encounter: successfull HD via left arm AV fistula yesterday Objective - Results Result Diagrams: 07/01/17 06:00 07/02/17 07:00 Recent Labs: Laboratory Last Values WBC 6.9 Th/cmm (4.8-10.8) 07/01/17 06:00 RBC 2.63 Mil/cmm (3.80-5.20) L 07/01/17 06:00 Hgb 8.5 gm/dL (12-16) L 07/01/17 06:00 Hct 26.5 % (41.0-60) L D 07/01/17 06:00 MCV 101.0 fl (81-100) H 07/01/17 06:00 MCH 32.5 pg (27.0-31.0) H 07/01/17 06:00 MCHC Differential 32.2 pg (28.0-36.0) 07/01/17 06:00 RDW 18.8 % (11.5-20.0) 07/01/17 06:00 Plt Count 201 Th/cmm (150-400) 07/01/17 06:00 MPV 9.6 fl 07/01/17 06:00 Neutrophils % 74.9 % (40.0-80.0) 06/29/17 11:02 Band Neutrophils % Not Reportable 07/01/17 06:00 Lymphocytes % 9.2 % (20.0-50.0) L 06/29/17 11:02 Monocytes % 13.7 % (2.0-10.0) H 06/29/17 11:02 Eosinophils % 1.5 % (0.0-5.0) 06/29/17 11:02 Basophils % 0.7 % (0.0-2.0) 06/29/17 11:02 Neutrophils (Manual) 71 % (40-80) 07/01/17 06:00 Lymphocytes 18 % (20-50) L 07/01/17 06:00 Monocytes 9 % (2-10) 07/01/17 06:00 Eosinophils 2 % (0-5) 07/01/17 06:00 Basophils 1 % (0-3) 06/30/17 05:30 Sodium 133 mEq/L (136-145) L 07/02/17 07:00 Potassium 3.5 mEq/L (3.5-5.1) 07/02/17 07:00 Chloride 94 mEq/L (98-107) L 07/02/17 07:00 Carbon Dioxide 28.7 mEq/L (21.0-31.0) 07/02/17 07:00 Anion Gap 13.8 (7.0-16.0) 07/02/17 07:00 BUN 56 mg/dL (7-25) H 07/02/17 07:00 Creatinine 3.0 mg/dL (0.6-1.2) H 07/02/17 07:00 Est GFR ( Amer) TNP 07/02/17 07:00 Est GFR (Non-Af Amer) TNP 07/02/17 07:00 BUN/Creatinine Ratio 18.7 07/02/17 07:00 Glucose 253 mg/dL (70-105) H 07/02/17 07:00 POC Glucose 204 MG/DL (70 - 105) H 07/02/17 05:26 Hemoglobin A1c % 7.2 % (4.0-6.0) H 06/30/17 05:20 Calcium 8.8 mg/dL (8.6-10.3) 07/02/17 07:00 Total Bilirubin 0.3 mg/dL (0.3-1.0) 07/02/17 07:00 AST 101 U/L (13-39) H 07/02/17 07:00 ALT 59 U/L (7-52) H 07/02/17 07:00 Alkaline Phosphatase 248 U/L (34-104) H 07/02/17 07:00 Total Protein 7.1 gm/dL (6.0-8.3) 07/02/17 07:00 Albumin 3.7 gm/dL (3.7-5.3) 07/02/17 07:00 Globulin 3.4 gm/dL 07/02/17 07:00 Albumin/Globulin Ratio 1.1 (1.0-1.8) 07/02/17 07:00 Random Vancomycin 10.9 ug/mL (5.0-40.0) 07/01/17 06:00 Hepatitis A IgM Ab Negative (Negative) 06/30/17 05:00 Hep Bs Antigen Negative (Negative) 06/30/17 05:00 Hep B Core IgM Ab Negative (Negative) 06/30/17 05:00 Hepatitis C Antibody 0.2 s/co ratio (0.0-0.9) 06/30/17 05:00 Blood Type A POSITIVE 06/30/17 15:53 Antibody Screen NEGATIVE 06/30/17 15:53 Crossmatch See Detail 06/30/17 15:53 - Physical Exam Vitals and I&O: Vital Signs Temp 97.0 F 07/02/17 08:18 Pulse 80 07/02/17 08:18 Resp 18 07/02/17 08:18 BP 164/47 07/02/17 08:18 Pulse Ox 100 07/02/17 08:18 Intake & Output 07/01/17 07/02/17 07/02/17 18:59 06:59 18:59 Intake Total 702 Output Total 0 Balance 702 Weight (lbs) 79.379 kg 82.191 kg Intake: Intake, IV Amount 102 Gentamicin 80 mg In 102 Sodium Chloride 0.9% 100 ml @ 100 mls/hr IV Q24H [facility] Rx#:[id number] Tube Feeding 450 Other 150 Output: Stool 0 Active Medications: Current Medications Acetaminophen (Tylenol 650mg/20.3ml Suspension) 650 mg GT DAILY [facility] Stop: 08/29/17 08:59 Last Admin: 07/02/17 08:40 Dose: 650 mg Acetaminophen (Tylenol 650mg/20.3ml Suspension) 650 mg GT Q4H PRN PRN Reason: FOR TEMP > 100 OR PAIN Stop: 08/28/17 17:49 Last Admin: 07/01/17 20:17 Dose: 650 mg Alprazolam (Xanax) 0.25 mg PO Q8H PRN; Protocol PRN Reason: Anxiety Stop: 08/30/17 14:16 Last Admin: 07/02/17 08:41 Dose: 0.25 mg Ascorbic Acid (Vitamin C) 500 mg GT DAILY [facility] Stop: 08/29/17 08:59 Last Admin: 07/02/17 08:41 Dose: 500 mg Aspirin (Aspirin Chewable) 81 mg GT DAILY [facility] Stop: 08/29/17 08:59 Last Admin: 07/02/17 08:41 Dose: 81 mg Atorvastatin Calcium (Lipitor) 40 mg GT HS [facility] PRN Reason: Protocol Stop: 08/28/17 20:59 Last Admin: 07/01/17 20:17 Dose: 40 mg Bisacodyl (Dulcolax 10 Mg Supp) 10 mg RC DAILY PRN PRN Reason: Constipation Stop: 08/28/17 16:00 Chlorhexidine Gluconate (Peridex) 10 ml MM QSHIFT [facility] Stop: 08/28/17 19:59 Last Admin: 07/02/17 08:50 Dose: 10 ml Cholecalciferol (Vitamin D3) 1,000 iu GT DAILY [facility] Stop: 08/29/17 08:59 Last Admin: 07/02/17 08:41 Dose: 1,000 iu Docusate Sodium (Colace) 100 mg PO DAILY [facility] Stop: 08/29/17 08:59 Last Admin: 07/02/17 08:42 Dose: 100 mg Gentamicin Sulfate 80 mg/ (Sodium Chloride) 102 mls @ 100 mls/hr IV Q24H [facility] Stop: 08/30/17 01:59 Last Infusion: 07/02/17 02:37 Dose: Infused Levofloxacin (Levaquin Pb) 250 mg in 50 mls @ 50 mls/hr IV Q48H [facility] Stop: 09/01/17 15:59 Insulin Aspart (Novolog Insulin Sliding Scale) 0 units SUBQ Q6HR [facility] PRN Reason: Protocol Stop: 08/28/17 17:59 Last Admin: 07/02/17 06:41 Dose: 4 units Lactobacillus Rhamnosus (Culturelle 15b) 1 each PO DAILY [facility] Stop: 08/30/17 15:59 Last Admin: 07/02/17 08:41 Dose: 1 each Lorazepam (Ativan) 0.5 mg GT Q6H PRN; Protocol PRN Reason: Anxiety Stop: 08/28/17 17:52 Last Admin: 07/02/17 06:44 Dose: 0.5 mg Magnesium Hydroxide (Milk Of Magnesia) 30 ml GT Q72H PRN PRN Reason: Constipation Stop: 08/28/17 17:46 Mirtazapine (Remeron) 15 mg GT HS [facility] PRN Reason: Protocol Stop: 08/28/17 20:59 Last Admin: 07/01/17 20:17 Dose: 15 mg Miscellaneous (Vancomycin Iv Per Pharmacy) 1 ea MC PRN [facility] Stop: 08/28/17 19:14 Miscellaneous (Gentamicin Iv Per Pharmacy) 1 ea MC PRN PRN PRN Reason: PROTOCOL Stop: 08/28/17 19:10 Miscellaneous (Probiotic Screen) 1 ea MC PRN PRN PRN Reason: PROTOCOL Stop: 08/30/17 15:37 Ondansetron HCl (Zofran Odt) 4 mg PO Q6H PRN PRN Reason: Nausea / Vomiting Stop: 08/28/17 15:59 Pantoprazole Sodium (Protonix) 40 mg GT DAILY [facility] Stop: 08/29/17 08:59 Last Admin: 07/02/17 08:41 Dose: 40 mg Simethicone (Mylicon) 80 mg GT Q6HR PRN PRN Reason: Gas Stop: 08/28/17 15:52 Sodium Phosphate (Fleet Enema) 118 ml RC PRN PRN PRN Reason: IF MOM/DULCOLAX INEFFECTIVE Stop: 08/28/17 19:11 Temazepam (Restoril) 15 mg PO HS PRN; Protocol PRN Reason: Insomnia Stop: 08/28/17 17:55 Last Admin: 07/01/17 22:58 Dose: 15 mg Vitamin B Complex/Vit C/Folic Acid (Vitamin B Complex W/Vitamin C) 1 tab GT DAILY [facility] Stop: 08/29/17 08:59 Last Admin: 07/02/17 08:41 Dose: 1 tab Zinc Sulfate (Zinc Sulfate) 220 mg GT DAILY [facility] Stop: 08/29/17 08:59 Last Admin: 07/02/17 08:41 Dose: 220 mg General: Alert, Other (anxious) HEENT: Atraumatic, Mucous membr. 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
--- NOTE | 2017-07-02 09:52 | General Progress Note ---
Subjective - Review of Systems Events since last encounter: s/p HD via left arm AV yesterday in no distress Objective - Results Result Diagrams: 07/01/17 06:00 07/02/17 07:00 Recent Labs: Laboratory Last Values WBC 6.9 Th/cmm (4.8-10.8) 07/01/17 06:00 RBC 2.63 Mil/cmm (3.80-5.20) L 07/01/17 06:00 Hgb 8.5 gm/dL (12-16) L 07/01/17 06:00 Hct 26.5 % (41.0-60) L D 07/01/17 06:00 MCV 101.0 fl (81-100) H 07/01/17 06:00 MCH 32.5 pg (27.0-31.0) H 07/01/17 06:00 MCHC Differential 32.2 pg (28.0-36.0) 07/01/17 06:00 RDW 18.8 % (11.5-20.0) 07/01/17 06:00 Plt Count 201 Th/cmm (150-400) 07/01/17 06:00 MPV 9.6 fl 07/01/17 06:00 Neutrophils % 74.9 % (40.0-80.0) 06/29/17 11:02 Band Neutrophils % Not Reportable 07/01/17 06:00 Lymphocytes % 9.2 % (20.0-50.0) L 06/29/17 11:02 Monocytes % 13.7 % (2.0-10.0) H 06/29/17 11:02 Eosinophils % 1.5 % (0.0-5.0) 06/29/17 11:02 Basophils % 0.7 % (0.0-2.0) 06/29/17 11:02 Neutrophils (Manual) 71 % (40-80) 07/01/17 06:00 Lymphocytes 18 % (20-50) L 07/01/17 06:00 Monocytes 9 % (2-10) 07/01/17 06:00 Eosinophils 2 % (0-5) 07/01/17 06:00 Basophils 1 % (0-3) 06/30/17 05:30 Sodium 133 mEq/L (136-145) L 07/02/17 07:00 Potassium 3.5 mEq/L (3.5-5.1) 07/02/17 07:00 Chloride 94 mEq/L (98-107) L 07/02/17 07:00 Carbon Dioxide 28.7 mEq/L (21.0-31.0) 07/02/17 07:00 Anion Gap 13.8 (7.0-16.0) 07/02/17 07:00 BUN 56 mg/dL (7-25) H 07/02/17 07:00 Creatinine 3.0 mg/dL (0.6-1.2) H 07/02/17 07:00 Est GFR ( Amer) TNP 07/02/17 07:00 Est GFR (Non-Af Amer) TNP 07/02/17 07:00 BUN/Creatinine Ratio 18.7 07/02/17 07:00 Glucose 253 mg/dL (70-105) H 07/02/17 07:00 POC Glucose 204 MG/DL (70 - 105) H 07/02/17 05:26 Hemoglobin A1c % 7.2 % (4.0-6.0) H 06/30/17 05:20 Calcium 8.8 mg/dL (8.6-10.3) 07/02/17 07:00 Total Bilirubin 0.3 mg/dL (0.3-1.0) 07/02/17 07:00 AST 101 U/L (13-39) H 07/02/17 07:00 ALT 59 U/L (7-52) H 07/02/17 07:00 Alkaline Phosphatase 248 U/L (34-104) H 07/02/17 07:00 Total Protein 7.1 gm/dL (6.0-8.3) 07/02/17 07:00 Albumin 3.7 gm/dL (3.7-5.3) 07/02/17 07:00 Globulin 3.4 gm/dL 07/02/17 07:00 Albumin/Globulin Ratio 1.1 (1.0-1.8) 07/02/17 07:00 Random Vancomycin 10.9 ug/mL (5.0-40.0) 07/01/17 06:00 Hepatitis A IgM Ab Negative (Negative) 06/30/17 05:00 Hep Bs Antigen Negative (Negative) 06/30/17 05:00 Hep B Core IgM Ab Negative (Negative) 06/30/17 05:00 Hepatitis C Antibody 0.2 s/co ratio (0.0-0.9) 06/30/17 05:00 Blood Type A POSITIVE 06/30/17 15:53 Antibody Screen NEGATIVE 06/30/17 15:53 Crossmatch See Detail 06/30/17 15:53 - Physical Exam Vitals and I&O: Vital Signs Temp 97.0 F 07/02/17 08:18 Pulse 80 07/02/17 08:18 Resp 18 07/02/17 08:18 BP 164/47 07/02/17 08:18 Pulse Ox 100 07/02/17 08:18 Intake & Output 07/01/17 07/02/17 07/02/17 18:59 06:59 18:59 Intake Total 702 Output Total 0 Balance 702 Weight (lbs) 79.379 kg 82.191 kg Intake: Intake, IV Amount 102 Gentamicin 80 mg In 102 Sodium Chloride 0.9% 100 ml @ 100 mls/hr IV Q24H [facility] Rx#:[id number] Tube Feeding 450 Other 150 Output: Stool 0 Active Medications: Current Medications Acetaminophen (Tylenol 650mg/20.3ml Suspension) 650 mg GT DAILY [facility] Stop: 08/29/17 08:59 Last Admin: 07/02/17 08:40 Dose: 650 mg Acetaminophen (Tylenol 650mg/20.3ml Suspension) 650 mg GT Q4H PRN PRN Reason: FOR TEMP > 100 OR PAIN Stop: 08/28/17 17:49 Last Admin: 07/01/17 20:17 Dose: 650 mg Alprazolam (Xanax) 0.25 mg PO Q8H PRN; Protocol PRN Reason: Anxiety Stop: 08/30/17 14:16 Last Admin: 07/02/17 08:41 Dose: 0.25 mg Ascorbic Acid (Vitamin C) 500 mg GT DAILY [facility] Stop: 08/29/17 08:59 Last Admin: 07/02/17 08:41 Dose: 500 mg Aspirin (Aspirin Chewable) 81 mg GT DAILY [facility] Stop: 08/29/17 08:59 Last Admin: 07/02/17 08:41 Dose: 81 mg Atorvastatin Calcium (Lipitor) 40 mg GT HS [facility] PRN Reason: Protocol Stop: 08/28/17 20:59 Last Admin: 01/23/18 20:17 Dose: 40 mg Bisacodyl (Dulcolax 10 Mg Supp) 10 mg RC DAILY PRN PRN Reason: Constipation Stop: 08/28/17 16:00 Chlorhexidine Gluconate (Peridex) 10 ml MM QSHIFT [facility] Stop: 08/28/17 19:59 Last Admin: 07/02/17 08:50 Dose: 10 ml Cholecalciferol (Vitamin D3) 1,000 iu GT DAILY [facility] Stop: 08/29/17 08:59 Last Admin: 07/02/17 08:41 Dose: 1,000 iu Docusate Sodium (Colace) 100 mg PO DAILY [facility] Stop: 08/29/17 08:59 Last Admin: 07/02/17 08:42 Dose: 100 mg Gentamicin Sulfate 80 mg/ (Sodium Chloride) 102 mls @ 100 mls/hr IV Q24H [facility] Stop: 08/30/17 01:59 Last Infusion: 07/02/17 02:37 Dose: Infused Levofloxacin (Levaquin Pb) 250 mg in 50 mls @ 50 mls/hr IV Q48H [facility] Stop: 09/01/17 15:59 Insulin Aspart (Novolog Insulin Sliding Scale) 0 units SUBQ Q6HR [facility] PRN Reason: Protocol Stop: 08/28/17 17:59 Last Admin: 07/02/17 06:41 Dose: 4 units Lactobacillus Rhamnosus (Culturelle 15b) 1 each PO DAILY [facility] Stop: 08/30/17 15:59 Last Admin: 07/02/17 08:41 Dose: 1 each Lorazepam (Ativan) 0.5 mg GT Q6H PRN; Protocol PRN Reason: Anxiety Stop: 08/28/17 17:52 Last Admin: 07/02/17 06:44 Dose: 0.5 mg Magnesium Hydroxide (Milk Of Magnesia) 30 ml GT Q72H PRN PRN Reason: Constipation Stop: 08/28/17 17:46 Mirtazapine (Remeron) 15 mg GT HS [facility] PRN Reason: Protocol Stop: 08/28/17 20:59 Last Admin: 07/01/17 20:17 Dose: 15 mg Miscellaneous (Vancomycin Iv Per Pharmacy) 1 ea MC PRN [facility] Stop: 08/28/17 19:14 Miscellaneous (Gentamicin Iv Per Pharmacy) 1 ea MC PRN PRN PRN Reason: PROTOCOL Stop: 08/28/17 19:10 Miscellaneous (Probiotic Screen) 1 ea MC PRN PRN PRN Reason: PROTOCOL Stop: 08/30/17 15:37 Ondansetron HCl (Zofran Odt) 4 mg PO Q6H PRN PRN Reason: Nausea / Vomiting Stop: 08/28/17 15:59 Pantoprazole Sodium (Protonix) 40 mg GT DAILY [facility] Stop: 08/29/17 08:59 Last Admin: 07/02/17 08:41 Dose: 40 mg Simethicone (Mylicon) 80 mg GT Q6HR PRN PRN Reason: Gas Stop: 08/28/17 15:52 Sodium Phosphate (Fleet Enema) 118 ml RC PRN PRN PRN Reason: IF MOM/DULCOLAX INEFFECTIVE Stop: 08/28/17 19:11 Temazepam (Restoril) 15 mg PO HS PRN; Protocol PRN Reason: Insomnia Stop: 08/28/17 17:55 Last Admin: 07/01/17 22:58 Dose: 15 mg Vitamin B Complex/Vit C/Folic Acid (Vitamin B Complex W/Vitamin C) 1 tab GT DAILY FOUZIA Stop: 08/29/17 08:59 Last Admin: 07/02/17 08:41 Dose: 1 tab Zinc Sulfate (Zinc Sulfate) 220 mg GT DAILY FOUZIA Stop: 08/29/17 08:59 Last Admin: 07/02/17 08:41 Dose: 220 mg General: Alert, Other (anxious) HEENT: Atraumatic, Mucous membr. 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 AV shunt malfunction. 2. Pneumonia. 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 4. DM2 5. HTN. 6. Respiratory failure. 7.CHF. - Plan Plan: continue HD ivabx continue current plan of care
[2017-07-02] MEDS: Albuterol/Ipratropium Neb 3 ML AERS HHN SCH ×2 (13:16→19:31)
--- NOTE | 2017-07-02 14:20 | Infectious Disease Prog Note ---
Infectious Disease Subjective - Review of Systems Service Date: 07/02/17 Subjective: No fever, doing well. On T bar. Infectious Disease Objective - Results Result Diagrams: 07/01/17 06:00 07/02/17 07:00 Recent Labs: Laboratory Last Values WBC 6.9 Th/cmm (4.8-10.8) 07/01/17 06:00 RBC 2.63 Mil/cmm (3.80-5.20) L 07/01/17 06:00 Hgb 8.5 gm/dL (12-16) L 07/01/17 06:00 Hct 26.5 % (41.0-60) L D 07/01/17 06:00 MCV 101.0 fl (81-100) H 07/01/17 06:00 MCH 32.5 pg (27.0-31.0) H 07/01/17 06:00 MCHC Differential 32.2 pg (28.0-36.0) 07/01/17 06:00 RDW 18.8 % (11.5-20.0) 07/01/17 06:00 Plt Count 201 Th/cmm (150-400) 07/01/17 06:00 MPV 9.6 fl 07/01/17 06:00 Neutrophils % 74.9 % (40.0-80.0) 06/29/17 11:02 Band Neutrophils % Not Reportable 07/01/17 06:00 Lymphocytes % 9.2 % (20.0-50.0) L 06/29/17 11:02 Monocytes % 13.7 % (2.0-10.0) H 06/29/17 11:02 Eosinophils % 1.5 % (0.0-5.0) 06/29/17 11:02 Basophils % 0.7 % (0.0-2.0) 06/29/17 11:02 Neutrophils (Manual) 71 % (40-80) 07/01/17 06:00 Lymphocytes 18 % (20-50) L 07/01/17 06:00 Monocytes 9 % (2-10) 07/01/17 06:00 Eosinophils 2 % (0-5) 07/01/17 06:00 Basophils 1 % (0-3) 06/30/17 05:30 Sodium 133 mEq/L (136-145) L 07/02/17 07:00 Potassium 3.5 mEq/L (3.5-5.1) 07/02/17 07:00 Chloride 94 mEq/L (98-107) L 07/02/17 07:00 Carbon Dioxide 28.7 mEq/L (21.0-31.0) 07/02/17 07:00 Anion Gap 13.8 (7.0-16.0) 07/02/17 07:00 BUN 56 mg/dL (7-25) H 07/02/17 07:00 Creatinine 3.0 mg/dL (0.6-1.2) H 07/02/17 07:00 Est GFR ( Amer) TNP 07/02/17 07:00 Est GFR (Non-Af Amer) TNP 07/02/17 07:00 BUN/Creatinine Ratio 18.7 07/02/17 07:00 Glucose 253 mg/dL (70-105) H 07/02/17 07:00 POC Glucose 244 MG/DL (70 - 105) H 07/02/17 11:23 Hemoglobin A1c % 7.2 % (4.0-6.0) H 06/30/17 05:20 Calcium 8.8 mg/dL (8.6-10.3) 07/02/17 07:00 Total Bilirubin 0.3 mg/dL (0.3-1.0) 07/02/17 07:00 AST 101 U/L (13-39) H 07/02/17 07:00 ALT 59 U/L (7-52) H 07/02/17 07:00 Alkaline Phosphatase 248 U/L (34-104) H 07/02/17 07:00 Total Protein 7.1 gm/dL (6.0-8.3) 07/02/17 07:00 Albumin 3.7 gm/dL (3.7-5.3) 07/02/17 07:00 Globulin 3.4 gm/dL 07/02/17 07:00 Albumin/Globulin Ratio 1.1 (1.0-1.8) 07/02/17 07:00 Gentamicin 5.1 ug/mL (0.5-10.0) 07/02/17 11:25 Random Vancomycin 21.3 ug/mL (5.0-40.0) 07/02/17 07:00 Hepatitis A IgM Ab Negative (Negative) 06/30/17 05:00 Hep Bs Antigen Negative (Negative) 06/30/17 05:00 Hep B Core IgM Ab Negative (Negative) 06/30/17 05:00 Hepatitis C Antibody 0.2 s/co ratio (0.0-0.9) 06/30/17 05:00 Blood Type A POSITIVE 06/30/17 15:53 Antibody Screen NEGATIVE 06/30/17 15:53 Crossmatch See Detail 06/30/17 15:53 - Physical Exam Vitals and I&O: Vital Signs Temp 97.3 F 07/02/17 12:15 Pulse 79 07/02/17 13:16 Resp 18 07/02/17 13:16 BP 96/54 07/02/17 12:15 Pulse Ox 99 07/02/17 13:16 Intake & Output 07/01/17 07/02/17 07/02/17 18:59 06:59 18:59 Intake Total 702 Output Total 0 Balance 702 Weight (lbs) 79.379 kg 82.191 kg Intake: Intake, IV Amount 102 Gentamicin 80 mg In 102 Sodium Chloride 0.9% 100 ml @ 100 mls/hr IV Q24H [facility] Rx#:[id number] Tube Feeding 450 Other 150 Output: Stool 0 Active Medications: Current Medications Acetaminophen (Tylenol 650mg/20.3ml Suspension) 650 mg GT DAILY [facility] Stop: 08/29/17 08:59 Last Admin: 07/02/17 08:40 Dose: 650 mg Acetaminophen (Tylenol 650mg/20.3ml Suspension) 650 mg GT Q4H PRN PRN Reason: FOR TEMP > 100 OR PAIN Stop: 08/28/17 17:49 Last Admin: 07/01/17 20:17 Dose: 650 mg Albuterol/Ipratropium (Duoneb Neb) 3 ml HHN Q6HRT [facility] Stop: 08/31/17 12:59 Last Admin: 07/02/17 13:16 Dose: 3 ml Alprazolam (Xanax) 0.25 mg PO Q8H PRN; Protocol PRN Reason: Anxiety Stop: 08/30/17 14:16 Last Admin: 07/02/17 08:41 Dose: 0.25 mg Ascorbic Acid (Vitamin C) 500 mg GT DAILY [facility] Stop: 08/29/17 08:59 Last Admin: 07/02/17 08:41 Dose: 500 mg Aspirin (Aspirin Chewable) 81 mg GT DAILY [facility] Stop: 08/29/17 08:59 Last Admin: 07/02/17 08:41 Dose: 81 mg Atorvastatin Calcium (Lipitor) 40 mg GT HS [facility] PRN Reason: Protocol Stop: 08/28/17 20:59 Last Admin: 07/01/17 20:17 Dose: 40 mg Bisacodyl (Dulcolax 10 Mg Supp) 10 mg RC DAILY PRN PRN Reason: Constipation Stop: 08/28/17 16:00 Chlorhexidine Gluconate (Peridex) 10 ml MM QSHIFT [facility] Stop: 08/28/17 19:59 Last Admin: 07/02/17 08:50 Dose: 10 ml Cholecalciferol (Vitamin D3) 1,000 iu GT DAILY [facility] Stop: 08/29/17 08:59 Last Admin: 07/02/17 08:41 Dose: 1,000 iu Docusate Sodium (Colace) 100 mg PO DAILY [facility] Stop: 08/29/17 08:59 Last Admin: 07/02/17 08:42 Dose: 100 mg Levofloxacin (Levaquin Pb) 250 mg in 50 mls @ 50 mls/hr IV Q48H [facility] Stop: 09/01/17 15:59 Vancomycin HCl 1 gm/ Sodium (Chloride) 250 mls @ 165 mls/hr IV ONCE ONE Stop: 07/02/17 22:30 Gentamicin Sulfate 60 mg/ (Sodium Chloride) 101.5 mls @ 100 mls/hr IV MWF@1500 [facility] Stop: 08/31/17 14:59 Insulin Aspart (Novolog Insulin Sliding Scale) 0 units SUBQ Q6HR [facility] PRN Reason: Protocol Stop: 08/28/17 17:59 Last Admin: 07/02/17 11:39 Dose: 4 units Lactobacillus Rhamnosus (Culturelle 15b) 1 each PO DAILY [facility] Stop: 08/30/17 15:59 Last Admin: 07/02/17 08:41 Dose: 1 each Lorazepam (Ativan) 0.5 mg GT Q6H PRN; Protocol PRN Reason: Anxiety Stop: 08/28/17 17:52 Last Admin: 07/02/17 06:44 Dose: 0.5 mg Magnesium Hydroxide (Milk Of Magnesia) 30 ml GT Q72H PRN PRN Reason: Constipation Stop: 08/28/17 17:46 Mirtazapine (Remeron) 15 mg GT HS [facility] PRN Reason: Protocol Stop: 08/28/17 20:59 Last Admin: 07/01/17 20:17 Dose: 15 mg Miscellaneous (Vancomycin Iv Per Pharmacy) 1 ea MC PRN [facility] Stop: 08/28/17 19:14 Miscellaneous (Gentamicin Iv Per Pharmacy) 1 ea PRN PRN PRN Reason: PROTOCOL Stop: 08/28/17 19:10 Miscellaneous (Probiotic Screen) 1 ea PRN PRN PRN Reason: PROTOCOL Stop: 08/30/17 15:37 Ondansetron HCl (Zofran Odt) 4 mg PO Q6H PRN PRN Reason: Nausea / Vomiting Stop: 08/28/17 15:59 Pantoprazole Sodium (Protonix) 40 mg GT DAILY [facility] Stop: 08/29/17 08:59 Last Admin: 07/02/17 08:41 Dose: 40 mg Simethicone (Mylicon) 80 mg GT Q6HR PRN PRN Reason: Gas Stop: 08/28/17 15:52 Sodium Phosphate (Fleet Enema) 118 ml RC PRN PRN PRN Reason: IF MOM/DULCOLAX INEFFECTIVE Stop: 08/28/17 19:11 Temazepam (Restoril) 15 mg PO HS PRN; Protocol PRN Reason: Insomnia Stop: 08/28/17 17:55 Last Admin: 07/01/17 22:58 Dose: 15 mg Vitamin B Complex/Vit C/Folic Acid (Vitamin B Complex W/Vitamin C) 1 tab GT DAILY [facility] Stop: 08/29/17 08:59 Last Admin: 07/02/17 08:41 Dose: 1 tab Zinc Sulfate (Zinc Sulfate) 220 mg GT DAILY [facility] Stop: 08/29/17 08:59 Last Admin: 07/02/17 08:41 Dose: 220 mg General: no acute distress, well developed, well nourished, cachectic HEENT: atraumatic, normocephalic, PERRLA Neck: supple, thyromegaly, lymphadenopathy Cardiovascular: S1S2, regular Lungs: clear to auscultation bilaterally, clear to percussion Abdomen: soft, no tender Extremities: no cyanosis, no clubbing Neurological: awake, alert, oriented Skin: intact Infectious Disease Assmt/Plan - Problem List Patient Problems: All Active Problems 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 AV shunt malfunction. 2. Pneumonia. 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 4. DM2 5. HTN. 6. Respiratory failure. 7.CHF. - Plan Plan: Continue levaquin 10 days.
[2017-07-02 16:47] LABS: pH 7.49 (7.35-7.45)
--- NOTE | 2017-07-02 17:16 | General Progress Note ---
Subjective - Review of Systems Service Date: 07/02/17 Subjective: alert, anxious, on T-piece Objective - Results Result Diagrams: 07/01/17 06:00 07/02/17 07:00 Recent Labs: Laboratory Last Values WBC 6.9 Th/cmm (4.8-10.8) 07/01/17 06:00 RBC 2.63 Mil/cmm (3.80-5.20) L 07/01/17 06:00 Hgb 8.5 gm/dL (12-16) L 07/01/17 06:00 Hct 26.5 % (41.0-60) L D 07/01/17 06:00 MCV 101.0 fl (81-100) H 07/01/17 06:00 MCH 32.5 pg (27.0-31.0) H 07/01/17 06:00 MCHC Differential 32.2 pg (28.0-36.0) 07/01/17 06:00 RDW 18.8 % (11.5-20.0) 07/01/17 06:00 Plt Count 201 Th/cmm (150-400) 07/01/17 06:00 MPV 9.6 fl 07/01/17 06:00 Neutrophils % 74.9 % (40.0-80.0) 06/29/17 11:02 Band Neutrophils % Not Reportable 07/01/17 06:00 Lymphocytes % 9.2 % (20.0-50.0) L 06/29/17 11:02 Monocytes % 13.7 % (2.0-10.0) H 06/29/17 11:02 Eosinophils % 1.5 % (0.0-5.0) 06/29/17 11:02 Basophils % 0.7 % (0.0-2.0) 06/29/17 11:02 Neutrophils (Manual) 71 % (40-80) 07/01/17 06:00 Lymphocytes 18 % (20-50) L 07/01/17 06:00 Monocytes 9 % (2-10) 07/01/17 06:00 Eosinophils 2 % (0-5) 07/01/17 06:00 Basophils 1 % (0-3) 06/30/17 05:30 Specimen Source Arterial 07/02/17 16:35 Sample Site RB 07/02/17 16:35 pH 7.49 (7.35-7.45) H 07/02/17 16:35 pCO2 46.0 mmHg (35.0-45.0) H 07/02/17 16:35 pO2 93.0 mmHg (80.0-100.0) 07/02/17 16:35 HCO3 33.1 mEq/L (20.0-26.0) H 07/02/17 16:35 Base Excess 10.4 mEq/L (-3.0-3.0) H 07/02/17 16:35 O2 Saturation 98.0 % (92.0-100.0) 07/02/17 16:35 Inspired O2 28 07/02/17 16:35 PEEP BP 07/02/17 16:35 Critical Value PW 07/02/17 16:35 Sodium 133 mEq/L (136-145) L 07/02/17 07:00 Potassium 3.5 mEq/L (3.5-5.1) 07/02/17 07:00 Chloride 94 mEq/L (98-107) L 07/02/17 07:00 Carbon Dioxide 28.7 mEq/L (21.0-31.0) 07/02/17 07:00 Anion Gap 13.8 (7.0-16.0) 07/02/17 07:00 BUN 56 mg/dL (7-25) H 07/02/17 07:00 Creatinine 3.0 mg/dL (0.6-1.2) H 07/02/17 07:00 Est GFR ( Amer) TNP 07/02/17 07:00 Est GFR (Non-Af Amer) TNP 07/02/17 07:00 BUN/Creatinine Ratio 18.7 07/02/17 07:00 Glucose 253 mg/dL (70-105) H 07/02/17 07:00 POC Glucose 244 MG/DL (70 - 105) H 07/02/17 11:23 Hemoglobin A1c % 7.2 % (4.0-6.0) H 06/30/17 05:20 Calcium 8.8 mg/dL (8.6-10.3) 07/02/17 07:00 Total Bilirubin 0.3 mg/dL (0.3-1.0) 07/02/17 07:00 AST 101 U/L (13-39) H 07/02/17 07:00 ALT 59 U/L (7-52) H 07/02/17 07:00 Alkaline Phosphatase 248 U/L (34-104) H 07/02/17 07:00 Total Protein 7.1 gm/dL (6.0-8.3) 07/02/17 07:00 Albumin 3.7 gm/dL (3.7-5.3) 07/02/17 07:00 Globulin 3.4 gm/dL 07/02/17 07:00 Albumin/Globulin Ratio 1.1 (1.0-1.8) 07/02/17 07:00 Gentamicin 5.1 ug/mL (0.5-10.0) 07/02/17 11:25 Random Vancomycin 21.3 ug/mL (5.0-40.0) 07/02/17 07:00 Hepatitis A IgM Ab Negative (Negative) 06/30/17 05:00 Hep Bs Antigen Negative (Negative) 06/30/17 05:00 Hep B Core IgM Ab Negative (Negative) 06/30/17 05:00 Hepatitis C Antibody 0.2 s/co ratio (0.0-0.9) 06/30/17 05:00 Blood Type A POSITIVE 06/30/17 15:53 Antibody Screen NEGATIVE 06/30/17 15:53 Crossmatch See Detail 06/30/17 15:53 - Physical Exam Vitals and I&O: Vital Signs Temp 97.8 F 07/02/17 16:00 Pulse 71 07/02/17 16:00 Resp 18 07/02/17 16:00 BP 123/53 07/02/17 16:00 Pulse Ox 100 07/02/17 16:00 Intake & Output 07/01/17 07/02/17 07/02/17 18:59 06:59 18:59 Intake Total 702 Output Total 0 Balance 702 Weight (lbs) 79.379 kg 82.191 kg Intake: Intake, IV Amount 102 Gentamicin 80 mg In 102 Sodium Chloride 0.9% 100 ml @ 100 mls/hr IV Q24H [facility] Rx#:[id number] Tube Feeding 450 Other 150 Output: Stool 0 Active Medications: Current Medications Acetaminophen (Tylenol 650mg/20.3ml Suspension) 650 mg GT DAILY [facility] Stop: 08/29/17 08:59 Last Admin: 07/02/17 08:40 Dose: 650 mg Acetaminophen (Tylenol 650mg/20.3ml Suspension) 650 mg GT Q4H PRN PRN Reason: FOR TEMP > 100 OR PAIN Stop: 08/28/17 17:49 Last Admin: 07/01/17 20:17 Dose: 650 mg Albuterol/Ipratropium (Duoneb Neb) 3 ml HHN Q6HRT [facility] Stop: 08/31/17 12:59 Last Admin: 07/02/17 13:16 Dose: 3 ml Alprazolam (Xanax) 0.25 mg PO Q8H PRN; Protocol PRN Reason: Anxiety Stop: 08/30/17 14:16 Last Admin: 07/02/17 08:41 Dose: 0.25 mg Ascorbic Acid (Vitamin C) 500 mg GT DAILY [facility] Stop: 08/29/17 08:59 Last Admin: 07/02/17 08:41 Dose: 500 mg Aspirin (Aspirin Chewable) 81 mg GT DAILY [facility] Stop: 08/29/17 08:59 Last Admin: 07/02/17 08:41 Dose: 81 mg Atorvastatin Calcium (Lipitor) 40 mg GT HS [facility] PRN Reason: Protocol Stop: 08/28/17 20:59 Last Admin: 07/01/17 20:17 Dose: 40 mg Bisacodyl (Dulcolax 10 Mg Supp) 10 mg RC DAILY PRN PRN Reason: Constipation Stop: 08/28/17 16:00 Chlorhexidine Gluconate (Peridex) 10 ml MM QSHIFT [facility] Stop: 08/28/17 19:59 Last Admin: 07/02/17 08:50 Dose: 10 ml Cholecalciferol (Vitamin D3) 1,000 iu GT DAILY [facility] Stop: 08/29/17 08:59 Last Admin: 07/02/17 08:41 Dose: 1,000 iu Docusate Sodium (Colace) 100 mg PO DAILY [facility] Stop: 08/29/17 08:59 Last Admin: 07/02/17 08:42 Dose: 100 mg Levofloxacin (Levaquin Pb) 250 mg in 50 mls @ 50 mls/hr IV Q48H [facility] Stop: 09/01/17 15:59 Vancomycin HCl 1 gm/ Sodium (Chloride) 250 mls @ 165 mls/hr IV ONCE ONE Stop: 07/02/17 22:30 Gentamicin Sulfate 60 mg/ (Sodium Chloride) 101.5 mls @ 100 mls/hr IV MWF@1500 [facility] Stop: 08/31/17 14:59 Last Admin: 07/02/17 15:00 Dose: 100 mls/hr Insulin Aspart (Novolog Insulin Sliding Scale) 0 units SUBQ Q6HR [facility] PRN Reason: Protocol Stop: 08/28/17 17:59 Last Admin: 07/02/17 17:11 Dose: Not Given Lactobacillus Rhamnosus (Culturelle 15b) 1 each PO DAILY [facility] Stop: 08/30/17 15:59 Last Admin: 07/02/17 08:41 Dose: 1 each Lorazepam (Ativan) 0.5 mg GT Q6H PRN; Protocol PRN Reason: Anxiety Stop: 08/28/17 17:52 Last Admin: 07/02/17 17:00 Dose: 0.5 mg Magnesium Hydroxide (Milk Of Magnesia) 30 ml GT Q72H PRN PRN Reason: Constipation Stop: 08/28/17 17:46 Mirtazapine (Remeron) 15 mg GT HS [facility] PRN Reason: Protocol Stop: 08/28/17 20:59 Last Admin: 07/01/17 20:17 Dose: 15 mg Miscellaneous (Vancomycin Iv Per Pharmacy) 1 ea MC PRN [facility] Stop: 08/28/17 19:14 Miscellaneous (Gentamicin Iv Per Pharmacy) 1 ea PRN PRN PRN Reason: PROTOCOL Stop: 08/28/17 19:10 Miscellaneous (Probiotic Screen) 1 ea PRN PRN PRN Reason: PROTOCOL Stop: 08/30/17 15:37 Ondansetron HCl (Zofran Odt) 4 mg PO Q6H PRN PRN Reason: Nausea / Vomiting Stop: 08/28/17 15:59 Pantoprazole Sodium (Protonix) 40 mg GT DAILY [facility] Stop: 08/29/17 08:59 Last Admin: 07/02/17 08:41 Dose: 40 mg Simethicone (Mylicon) 80 mg GT Q6HR PRN PRN Reason: Gas Stop: 08/28/17 15:52 Sodium Phosphate (Fleet Enema) 118 ml RC PRN PRN PRN Reason: IF MOM/DULCOLAX INEFFECTIVE Stop: 03/22/18 19:11 Temazepam (Restoril) 15 mg PO HS PRN; Protocol PRN Reason: Insomnia Stop: 08/28/17 17:55 Last Admin: 07/01/17 22:58 Dose: 15 mg Vitamin B Complex/Vit C/Folic Acid (Vitamin B Complex W/Vitamin C) 1 tab GT DAILY [facility] Stop: 08/29/17 08:59 Last Admin: 07/02/17 08:41 Dose: 1 tab Zinc Sulfate (Zinc Sulfate) 220 mg GT DAILY [facility] Stop: 08/29/17 08:59 Last Admin: 07/02/17 08:41 Dose: 220 mg General: Alert, Other (anxious) HEENT: Atraumatic, Mucous membr. 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 - Assessment Assessment: ESRD on HD Chronic resp failur on T-piece Anxiety/Depression Ess Htn Type 2 DM Morbid obesity Multiple Ulcers - Plan Plan: Lab - Result Diagrams 07/01/17 06:00 07/01/17 06:00 Current Medications Acetaminophen (Tylenol 650mg/20.3ml Suspension) 650 mg GT DAILY [facility] Stop: 08/29/17 08:59 Last Admin: 07/01/17 09:52 Dose: 650 mg Acetaminophen (Tylenol 650mg/20.3ml Suspension) 650 mg GT Q4H PRN PRN Reason: FOR TEMP > 100 OR PAIN Stop: 08/28/17 17:49 Ascorbic Acid (Vitamin C) 500 mg GT DAILY [facility] Stop: 08/29/17 08:59 Last Admin: 07/01/17 09:53 Dose: 500 mg Aspirin (Aspirin Chewable) 81 mg GT DAILY [facility] Stop: 08/29/17 08:59 Last Admin: 07/01/17 09:54 Dose: 81 mg Atorvastatin Calcium (Lipitor) 40 mg GT HS [facility] PRN Reason: Protocol Stop: 08/28/17 20:59 Last Admin: 06/30/17 20:12 Dose: 40 mg Bisacodyl (Dulcolax 10 Mg Supp) 10 mg RC DAILY PRN PRN Reason: Constipation Stop: 08/28/17 16:00 Chlorhexidine Gluconate (Peridex) 10 ml MM QSHIFT [facility] Stop: 08/28/17 19:59 Last Admin: 07/01/17 09:54 Dose: 10 ml Cholecalciferol (Vitamin D3) 1,000 iu GT DAILY [facility] Stop: 08/29/17 08:59 Last Admin: 07/01/17 09:54 Dose: 1,000 iu Docusate Sodium (Colace) 100 mg PO DAILY [facility] Stop: 08/29/17 08:59 Last Admin: 07/01/17 09:53 Dose: 100 mg Gentamicin Sulfate 80 mg/ (Sodium Chloride) 102 mls @ 100 mls/hr IV Q24H [facility] Stop: 08/30/17 01:59 Last Admin: 07/01/17 02:59 Dose: 100 mls/hr Levofloxacin (Levaquin Pb) 500 mg in 100 mls @ 100 mls/hr IV ONETIME [facility] Stop: 08/30/17 13:29 Levofloxacin (Levaquin Pb) 250 mg in 50 mls @ 50 mls/hr IV Q48HR [facility] Stop: 08/31/17 13:29 Insulin Aspart (Novolog Insulin Sliding Scale) 0 units SUBQ Q6HR [facility] PRN Reason: Protocol Stop: 08/28/17 17:59 Last Admin: 07/01/17 12:24 Dose: 4 units Lorazepam (Ativan) 0.5 mg GT Q6H PRN; Protocol PRN Reason: Anxiety Stop: 08/28/17 17:52 Last Admin: 07/01/17 11:09 Dose: 0.5 mg Magnesium Hydroxide (Milk Of Magnesia) 30 ml GT Q72H PRN PRN Reason: Constipation Stop: 08/28/17 17:46 Mirtazapine (Remeron) 15 mg GT HS [facility] PRN Reason: Protocol Stop: 08/28/17 20:59 Last Admin: 06/30/17 20:12 Dose: 15 mg Miscellaneous (Vancomycin Iv Per Pharmacy) 1 ea MC PRN [facility] Stop: 08/28/17 19:14 Miscellaneous (Gentamicin Iv Per Pharmacy) 1 ea MC PRN PRN PRN Reason: PROTOCOL Stop: 08/28/17 19:10 Ondansetron HCl (Zofran Odt) 4 mg PO Q6H PRN PRN Reason: Nausea / Vomiting Stop: 08/28/17 15:59 Pantoprazole Sodium (Protonix) 40 mg GT DAILY [facility] Stop: 08/29/17 08:59 Last Admin: 07/01/17 09:54 Dose: 40 mg Potassium Chloride (Potassium Chloride Elixir) 40 meq GT X1 ONE Stop: 07/01/17 13:18 Potassium Chloride (Klor-Con) 20 meq PO X1 ONE Stop: 07/01/17 14:14 Simethicone (Mylicon) 80 mg GT Q6HR PRN PRN Reason: Gas Stop: 08/28/17 15:52 Sodium Phosphate (Fleet Enema) 118 ml RC PRN PRN PRN Reason: IF MOM/DULCOLAX INEFFECTIVE Stop: 08/28/17 19:11 Temazepam (Restoril) 15 mg PO HS PRN; Protocol PRN Reason: Insomnia Stop: 08/28/17 17:55 Last Admin: 07/01/17 03:16 Dose: 15 mg Vitamin B Complex/Vit C/Folic Acid (Vitamin B Complex W/Vitamin C) 1 tab GT DAILY [facility] Stop: 08/29/17 08:59 Last Admin: 07/01/17 09:53 Dose: 1 tab Zinc Sulfate (Zinc Sulfate) 220 mg GT DAILY [facility] Stop: 08/29/17 08:59 Last Admin: 07/01/17 09:55 Dose: 220 mg Lab - Result Diagrams 07/01/17 06:00 07/02/17 07:00 Pt. was dialyzed today & tolerated it well continue ABx replace K
[2017-07-03] MEDS: Albuterol/Ipratropium Neb 3 ML AERS HHN SCH ×4 (01:07→19:42)
[2017-07-03] MEDS: INSULIN ASPART SLIDING SCALE 100 UNITS/ML UNIT SUBQ SCH ×3 (06:37→20:08)
--- NOTE | 2017-07-03 08:35 | Diagnostic Imaging Report ---
Exam: Portable chest x-ray HISTORY: Shortness of breath. Findings: Portable upright examination of the chest at 0807 hours reviewed compared to prior study 07/01/2017 demonstrates unchanged appearance of bilateral pneumonia with superimposed effusions. The heart is enlarged. Tracheostomy tube and right-sided PICC line unchanged appearance. IMPRESSION: Bilateral infiltrates with superimposed effusions, follow-up dictation recommended.
[2017-07-03] MEDS: Aspirin 81mg Chewable Tab GT SCH (08:55)
[2017-07-03] MEDS: Vitamin B Complex w/Vitamin C Tab GT SCH (08:55)
[2017-07-03] MEDS: Pantoprazole 40 mg/Packet GT SCH (08:55)
[2017-07-03] MEDS: Lactobacillus Rhamnosus GG 15 Billion CFU CAP.SPRINK PO SCH (08:55)
[2017-07-03] MEDS: Chlorhexidine Gluconate 0.12% 480mL Bottle MM SCH ×2 (08:58→23:37)
--- NOTE | 2017-07-03 09:08 | General Progress Note ---
Subjective - Review of Systems Events since last encounter: no distress Objective - Results Result Diagrams: 07/01/17 06:00 07/02/17 07:00 Recent Labs: Laboratory Last Values WBC 6.9 Th/cmm (4.8-10.8) 07/01/17 06:00 RBC 2.63 Mil/cmm (3.80-5.20) L 07/01/17 06:00 Hgb 8.5 gm/dL (12-16) L 07/01/17 06:00 Hct 26.5 % (41.0-60) L D 07/01/17 06:00 MCV 101.0 fl (81-100) H 07/01/17 06:00 MCH 32.5 pg (27.0-31.0) H 07/01/17 06:00 MCHC Differential 32.2 pg (28.0-36.0) 07/01/17 06:00 RDW 18.8 % (11.5-20.0) 07/01/17 06:00 Plt Count 201 Th/cmm (150-400) 07/01/17 06:00 MPV 9.6 fl 07/01/17 06:00 Neutrophils % 74.9 % (40.0-80.0) 06/29/17 11:02 Band Neutrophils % Not Reportable 07/01/17 06:00 Lymphocytes % 9.2 % (20.0-50.0) L 06/29/17 11:02 Monocytes % 13.7 % (2.0-10.0) H 06/29/17 11:02 Eosinophils % 1.5 % (0.0-5.0) 06/29/17 11:02 Basophils % 0.7 % (0.0-2.0) 06/29/17 11:02 Neutrophils (Manual) 71 % (40-80) 07/01/17 06:00 Lymphocytes 18 % (20-50) L 07/01/17 06:00 Monocytes 9 % (2-10) 07/01/17 06:00 Eosinophils 2 % (0-5) 07/01/17 06:00 Basophils 1 % (0-3) 06/30/17 05:30 Specimen Source Arterial 07/02/17 16:35 Sample Site RB 07/02/17 16:35 pH 7.49 (7.35-7.45) H 07/02/17 16:35 pCO2 46.0 mmHg (35.0-45.0) H 07/02/17 16:35 pO2 93.0 mmHg (80.0-100.0) 07/02/17 16:35 HCO3 33.1 mEq/L (20.0-26.0) H 07/02/17 16:35 Base Excess 10.4 mEq/L (-3.0-3.0) H 07/02/17 16:35 O2 Saturation 98.0 % (92.0-100.0) 07/02/17 16:35 Inspired O2 28 07/02/17 16:35 PEEP BP 07/02/17 16:35 Critical Value PW 07/02/17 16:35 Sodium 133 mEq/L (136-145) L 07/02/17 07:00 Potassium 3.5 mEq/L (3.5-5.1) 07/02/17 07:00 Chloride 94 mEq/L (98-107) L 07/02/17 07:00 Carbon Dioxide 28.7 mEq/L (21.0-31.0) 07/02/17 07:00 Anion Gap 13.8 (7.0-16.0) 07/02/17 07:00 BUN 56 mg/dL (7-25) H 07/02/17 07:00 Creatinine 3.0 mg/dL (0.6-1.2) H 07/02/17 07:00 Est GFR ( Amer) TNP 07/02/17 07:00 Est GFR (Non-Af Amer) TNP 07/02/17 07:00 BUN/Creatinine Ratio 18.7 07/02/17 07:00 Glucose 253 mg/dL (70-105) H 07/02/17 07:00 POC Glucose 137 MG/DL (70 - 105) H 07/02/17 17:09 Hemoglobin A1c % 7.2 % (4.0-6.0) H 06/30/17 05:20 Calcium 8.8 mg/dL (8.6-10.3) 07/02/17 07:00 Total Bilirubin 0.3 mg/dL (0.3-1.0) 07/02/17 07:00 AST 101 U/L (13-39) H 07/02/17 07:00 ALT 59 U/L (7-52) H 07/02/17 07:00 Alkaline Phosphatase 248 U/L (34-104) H 07/02/17 07:00 Total Protein 7.1 gm/dL (6.0-8.3) 07/02/17 07:00 Albumin 3.7 gm/dL (3.7-5.3) 07/02/17 07:00 Globulin 3.4 gm/dL 07/02/17 07:00 Albumin/Globulin Ratio 1.1 (1.0-1.8) 07/02/17 07:00 Gentamicin 5.1 ug/mL (0.5-10.0) 07/02/17 11:25 Random Vancomycin 21.3 ug/mL (5.0-40.0) 07/02/17 07:00 Hepatitis A IgM Ab Negative (Negative) 06/30/17 05:00 Hep Bs Antigen Negative (Negative) 06/30/17 05:00 Hep B Core IgM Ab Negative (Negative) 06/30/17 05:00 Hepatitis C Antibody 0.2 s/co ratio (0.0-0.9) 06/30/17 05:00 Blood Type A POSITIVE 06/30/17 15:53 Antibody Screen NEGATIVE 06/30/17 15:53 Crossmatch See Detail 06/30/17 15:53 - Physical Exam Vitals and I&O: Vital Signs Temp 96.9 F 07/03/17 08:00 Pulse 78 07/03/17 08:00 Resp 20 07/03/17 08:00 BP 115/31 07/03/17 08:00 Pulse Ox 100 07/03/17 08:00 Intake & Output 07/02/17 07/03/17 07/03/17 18:59 06:59 18:59 Intake Total 380 910 Output Total 2500 Balance -2120 910 Weight (lbs) 82.418 kg 82.1 kg Intake: Intake, IV Amount 250 Vancomycin HCl 1 gm In 250 Sodium Chloride 0.9% 250 ml @ 165 mls/hr IV ONCE ONE Rx#:[id number] Oral 0 Tube Feeding 180 540 Other 200 120 Output: Hemodialysis 2500 Other: # Voids 3 2 # Bowel Movements 0 Active Medications: Current Medications Acetaminophen (Tylenol 650mg/20.3ml Suspension) 650 mg GT DAILY [facility] Stop: 08/29/17 08:59 Last Admin: 07/03/17 08:54 Dose: 650 mg Acetaminophen (Tylenol 650mg/20.3ml Suspension) 650 mg GT Q4H PRN PRN Reason: FOR TEMP > 100 OR PAIN Stop: 08/28/17 17:49 Last Admin: 07/01/17 20:17 Dose: 650 mg Albuterol/Ipratropium (Duoneb Neb) 3 ml HHN Q6HRT [facility] Stop: 08/31/17 12:59 Last Admin: 07/03/17 07:18 Dose: 3 ml Alprazolam (Xanax) 0.25 mg PO Q8H PRN; Protocol PRN Reason: Anxiety Stop: 08/30/17 14:16 Last Admin: 07/02/17 20:42 Dose: 0.25 mg Ascorbic Acid (Vitamin C) 500 mg GT DAILY [facility] Stop: 08/29/17 08:59 Last Admin: 07/03/17 08:55 Dose: 500 mg Aspirin (Aspirin Chewable) 81 mg GT DAILY [facility] Stop: 08/29/17 08:59 Last Admin: 07/03/17 08:55 Dose: 81 mg Atorvastatin Calcium (Lipitor) 40 mg GT HS [facility] PRN Reason: Protocol Stop: 08/28/17 20:59 Last Admin: 07/02/17 20:37 Dose: 40 mg Bisacodyl (Dulcolax 10 Mg Supp) 10 mg RC DAILY PRN PRN Reason: Constipation Stop: 08/28/17 16:00 Chlorhexidine Gluconate (Peridex) 10 ml MM QSHIFT [facility] Stop: 08/28/17 19:59 Last Admin: 07/03/17 08:58 Dose: 10 ml Cholecalciferol (Vitamin D3) 1,000 iu GT DAILY [facility] Stop: 08/29/17 08:59 Last Admin: 07/03/17 08:54 Dose: 1,000 iu Docusate Sodium (Colace) 100 mg PO DAILY [facility] Stop: 08/29/17 08:59 Last Admin: 07/03/17 08:55 Dose: 100 mg Levofloxacin (Levaquin Pb) 250 mg in 50 mls @ 50 mls/hr IV Q48H [facility] Stop: 09/01/17 15:59 Gentamicin Sulfate 60 mg/ (Sodium Chloride) 101.5 mls @ 100 mls/hr IV MWF@1500 [facility] Stop: 08/31/17 14:59 Last Admin: 07/02/17 15:00 Dose: 100 mls/hr Insulin Aspart (Novolog Insulin Sliding Scale) 0 units SUBQ Q6HR [facility] PRN Reason: Protocol Stop: 08/28/17 17:59 Last Admin: 07/03/17 06:37 Dose: 4 units Lactobacillus Rhamnosus (Culturelle 15b) 1 each PO DAILY [facility] Stop: 08/30/17 15:59 Last Admin: 07/03/17 08:55 Dose: 1 each Lorazepam (Ativan) 0.5 mg GT Q6H PRN; Protocol PRN Reason: Anxiety Stop: 08/28/17 17:52 Last Admin: 07/03/17 08:41 Dose: 0.5 mg Magnesium Hydroxide (Milk Of Magnesia) 30 ml GT Q72H PRN PRN Reason: Constipation Stop: 08/28/17 17:46 Mirtazapine (Remeron) 15 mg GT HS [facility] PRN Reason: Protocol Stop: 08/28/17 20:59 Last Admin: 07/02/17 20:38 Dose: 15 mg Miscellaneous (Vancomycin Iv Per Pharmacy) 1 ea MC PRN [facility] Stop: 08/28/17 19:14 Miscellaneous (Gentamicin Iv Per Pharmacy) 1 ea PRN PRN PRN Reason: PROTOCOL Stop: 08/28/17 19:10 Miscellaneous (Probiotic Screen) 1 ea PRN PRN PRN Reason: PROTOCOL Stop: 08/30/17 15:37 Ondansetron HCl (Zofran Odt) 4 mg PO Q6H PRN PRN Reason: Nausea / Vomiting Stop: 08/28/17 15:59 Pantoprazole Sodium (Protonix) 40 mg GT DAILY [facility] Stop: 08/29/17 08:59 Last Admin: 07/03/17 08:55 Dose: 40 mg Simethicone (Mylicon) 80 mg GT Q6HR PRN PRN Reason: Gas Stop: 08/28/17 15:52 Sodium Phosphate (Fleet Enema) 118 ml RC PRN PRN PRN Reason: IF MOM/DULCOLAX INEFFECTIVE Stop: 08/28/17 19:11 Temazepam (Restoril) 15 mg PO HS PRN; Protocol PRN Reason: Insomnia Stop: 08/28/17 17:55 Last Admin: 07/03/17 01:25 Dose: 15 mg Vitamin B Complex/Vit C/Folic Acid (Vitamin B Complex W/Vitamin C) 1 tab GT DAILY [facility] Stop: 08/29/17 08:59 Last Admin: 07/03/17 08:55 Dose: 1 tab Zinc Sulfate (Zinc Sulfate) 220 mg GT DAILY [facility] Stop: 08/29/17 08:59 Last Admin: 07/03/17 08:55 Dose: 220 mg General: Alert, Other (anxious) HEENT: Atraumatic, Mucous membr. 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 AV shunt malfunction. 2. Pneumonia. 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 4. DM2 5. HTN. 6. Respiratory failure. 7.CHF. - Plan Plan: continue HD ivabx continue current plan of care
[2017-07-03 11:21] LABS: EOSINOPHILE ABSOLUTE 0.1 Th/cmm (0.1-0.4); HEMATOCRIT 25.6 % (41.0-60); HEMOGLOBIN 8.3 gm/dL (12-16); MEAN CELL VOLUME 101.1 fl (81-100); MEAN CORPUSCULAR HEMOGLOBIN 32.8 pg (27.0-31.0); MEAN CORPUSCULAR HGB CONC 32.5 pg (28.0-36.0); MEAN PLATELET VOLUME 9.7 fl; MONOCYTE ABSOLUTE 1.1 Th/cmm (0.3-1.0); NEUTROPHILE ABSOLUTE 3.9 Th/cmm (1.8-8.0); PLATELET COUNT 237 Th/cmm (150-400); RED BLOOD COUNT 2.53 Mil/cmm (3.80-5.20); RED CELL DISTRIBUTION WIDTH 18.9 % (11.5-20.0); WHITE BLOOD COUNT 6.1 Th/cmm (4.8-10.8)
[2017-07-03 11:43] LABS: ALB/GLOB RATIO 1.1 (1.0-1.8); ALBUMIN 3.6 gm/dL (3.7-5.3); ALKALINE PHOSPHATASE 200 U/L (34-104); ANION GAP 12.7 (7.0-16.0); BILIRUBIN,TOTAL 0.3 mg/dL (0.3-1.0); BUN - UREA NITROGEN 42 mg/dL (7-25); CALCIUM SERUM 8.9 mg/dL (8.6-10.3); CARBON DIOXIDE 28.9 mEq/L (21.0-31.0); CHLORIDE 97 mEq/L (98-107); CREATININE - SERUM 2.5 mg/dL (0.6-1.2); GLUCOSE 215 mg/dL (70-105); POTASSIUM SERUM 3.6 mEq/L (3.5-5.1); SGOT 44 U/L (13-39); SGPT/ALT 36 U/L (7-52); SODIUM SERUM 135 mEq/L (136-145)
[2017-07-03 12:10] LABS: EOSINOPHIL 3 % (0-5); LYMPHOCYTE 11 % (20-50); MONOCYTE 18 % (2-10); NEUTROPHILS 68 % (40-80); PLATELET ESTIMATE ADEQUATE (NORMAL); TOTAL CELLS COUNTED 100
--- NOTE | 2017-07-03 14:18 | General Progress Note ---
Subjective - Review of Systems Service Date: 07/03/17 Subjective: alert, anxious, on T-piece Objective - Results Result Diagrams: 07/03/17 07:20 07/03/17 07:20 Recent Labs: Laboratory Last Values WBC 6.1 Th/cmm (4.8-10.8) 07/03/17 07:20 RBC 2.53 Mil/cmm (3.80-5.20) L 07/03/17 07:20 Hgb 8.3 gm/dL (12-16) L 07/03/17 07:20 Hct 25.6 % (41.0-60) L 07/03/17 07:20 MCV 101.1 fl (81-100) H 07/03/17 07:20 MCH 32.8 pg (27.0-31.0) H 07/03/17 07:20 MCHC Differential 32.5 pg (28.0-36.0) 07/03/17 07:20 RDW 18.9 % (11.5-20.0) 07/03/17 07:20 Plt Count 237 Th/cmm (150-400) 07/03/17 07:20 MPV 9.7 fl 07/03/17 07:20 Neutrophils % 74.9 % (40.0-80.0) 06/29/17 11:02 Band Neutrophils % Not Reportable 07/01/17 06:00 Lymphocytes % 9.2 % (20.0-50.0) L 06/29/17 11:02 Monocytes % 13.7 % (2.0-10.0) H 06/29/17 11:02 Eosinophils % 1.5 % (0.0-5.0) 06/29/17 11:02 Basophils % 0.7 % (0.0-2.0) 06/29/17 11:02 Neutrophils (Manual) 68 % (40-80) 07/03/17 07:20 Lymphocytes 11 % (20-50) L 07/03/17 07:20 Monocytes 18 % (2-10) H 07/03/17 07:20 Eosinophils 3 % (0-5) 07/03/17 07:20 Basophils 1 % (0-3) 06/30/17 05:30 Platelet Estimate ADEQUATE (NORMAL) 07/03/17 07:20 Specimen Source Arterial 07/02/17 16:35 Sample Site RB 07/02/17 16:35 pH 7.49 (7.35-7.45) H 07/02/17 16:35 pCO2 46.0 mmHg (35.0-45.0) H 07/02/17 16:35 pO2 93.0 mmHg (80.0-100.0) 07/02/17 16:35 HCO3 33.1 mEq/L (20.0-26.0) H 07/02/17 16:35 Base Excess 10.4 mEq/L (-3.0-3.0) H 07/02/17 16:35 O2 Saturation 98.0 % (92.0-100.0) 07/02/17 16:35 Inspired O2 28 07/02/17 16:35 PEEP BP 07/02/17 16:35 Critical Value PW 07/02/17 16:35 Sodium 135 mEq/L (136-145) L 07/03/17 07:20 Potassium 3.6 mEq/L (3.5-5.1) 07/03/17 07:20 Chloride 97 mEq/L (98-107) L 07/03/17 07:20 Carbon Dioxide 28.9 mEq/L (21.0-31.0) 07/03/17 07:20 Anion Gap 12.7 (7.0-16.0) 07/03/17 07:20 BUN 42 mg/dL (7-25) H 07/03/17 07:20 Creatinine 2.5 mg/dL (0.6-1.2) H 07/03/17 07:20 Est GFR ( Amer) [facility] 07/03/17 07:20 Est GFR (Non-Af Amer) [facility] 07/03/17 07:20 BUN/Creatinine Ratio 16.8 07/03/17 07:20 Glucose 215 mg/dL (70-105) H 07/03/17 07:20 POC Glucose 137 MG/DL (70 - 105) H 07/02/17 17:09 Hemoglobin A1c % 7.2 % (4.0-6.0) H 06/30/17 05:20 Calcium 8.9 mg/dL (8.6-10.3) 07/03/17 07:20 Total Bilirubin 0.3 mg/dL (0.3-1.0) 07/03/17 07:20 AST 44 U/L (13-39) H 07/03/17 07:20 ALT 36 U/L (7-52) 07/03/17 07:20 Alkaline Phosphatase 200 U/L (34-104) H 07/03/17 07:20 Total Protein 7.0 gm/dL (6.0-8.3) 07/03/17 07:20 Albumin 3.6 gm/dL (3.7-5.3) L 07/03/17 07:20 Globulin 3.4 gm/dL 07/03/17 07:20 Albumin/Globulin Ratio 1.1 (1.0-1.8) 07/03/17 07:20 Gentamicin 5.1 ug/mL (0.5-10.0) 07/02/17 11:25 Random Vancomycin 21.3 ug/mL (5.0-40.0) 07/02/17 07:00 Hepatitis A IgM Ab Negative (Negative) 06/30/17 05:00 Hep Bs Antigen Negative (Negative) 06/30/17 05:00 Hep B Core IgM Ab Negative (Negative) 06/30/17 05:00 Hepatitis C Antibody 0.2 s/co ratio (0.0-0.9) 06/30/17 05:00 Blood Type A POSITIVE 06/30/17 15:53 Antibody Screen NEGATIVE 06/30/17 15:53 Crossmatch See Detail 06/30/17 15:53 - Physical Exam Vitals and I&O: Vital Signs Temp 96.9 F 07/03/17 08:00 Pulse 72 07/03/17 13:19 Resp 18 07/03/17 13:19 BP 115/31 07/03/17 08:00 Pulse Ox 97 07/03/17 13:19 Intake & Output 07/02/17 07/03/17 07/03/17 18:59 06:59 18:59 Intake Total 380 910 Output Total 2500 Balance -2120 910 Weight (lbs) 82.418 kg 82.1 kg Intake: Intake, IV Amount 250 Vancomycin HCl 1 gm In 250 Sodium Chloride 0.9% 250 ml @ 165 mls/hr IV ONCE ONE Rx#:[id number] Oral 0 Tube Feeding 180 540 Other 200 120 Output: Hemodialysis 2500 Other: # Voids 3 2 # Bowel Movements 0 Active Medications: Current Medications Acetaminophen (Tylenol 650mg/20.3ml Suspension) 650 mg GT DAILY [facility] Stop: 08/29/17 08:59 Last Admin: 07/03/17 08:54 Dose: 650 mg Acetaminophen (Tylenol 650mg/20.3ml Suspension) 650 mg GT Q4H PRN PRN Reason: FOR TEMP > 100 OR PAIN Stop: 08/28/17 17:49 Last Admin: 07/01/17 20:17 Dose: 650 mg Albuterol/Ipratropium (Duoneb Neb) 3 ml HHN Q6HRT [facility] Stop: 08/31/17 12:59 Last Admin: 07/03/17 13:19 Dose: 3 ml Alprazolam (Xanax) 0.25 mg PO Q8H PRN; Protocol PRN Reason: Anxiety Stop: 08/30/17 14:16 Last Admin: 07/02/17 20:42 Dose: 0.25 mg Ascorbic Acid (Vitamin C) 500 mg GT DAILY [facility] Stop: 08/29/17 08:59 Last Admin: 07/03/17 08:55 Dose: 500 mg Aspirin (Aspirin Chewable) 81 mg GT DAILY [facility] Stop: 08/29/17 08:59 Last Admin: 07/03/17 08:55 Dose: 81 mg Atorvastatin Calcium (Lipitor) 40 mg GT HS [facility] PRN Reason: Protocol Stop: 08/28/17 20:59 Last Admin: 07/02/17 20:37 Dose: 40 mg Bisacodyl (Dulcolax 10 Mg Supp) 10 mg RC DAILY PRN PRN Reason: Constipation Stop: 08/28/17 16:00 Chlorhexidine Gluconate (Peridex) 10 ml MM QSHIFT [facility] Stop: 08/28/17 19:59 Last Admin: 07/03/17 08:58 Dose: 10 ml Cholecalciferol (Vitamin D3) 1,000 iu GT DAILY [facility] Stop: 08/29/17 08:59 Last Admin: 07/03/17 08:54 Dose: 1,000 iu Docusate Sodium (Colace) 100 mg PO DAILY [facility] Stop: 08/29/17 08:59 Last Admin: 07/03/17 08:55 Dose: 100 mg Levofloxacin (Levaquin Pb) 250 mg in 50 mls @ 50 mls/hr IV Q48H [facility] Stop: 09/01/17 15:59 Gentamicin Sulfate 60 mg/ (Sodium Chloride) 101.5 mls @ 100 mls/hr IV MWF@1500 [facility] Stop: 08/31/17 14:59 Last Admin: 07/02/17 15:00 Dose: 100 mls/hr Insulin Aspart (Novolog Insulin Sliding Scale) 0 units SUBQ Q6HR [facility] PRN Reason: Protocol Stop: 08/28/17 17:59 Last Admin: 07/03/17 12:44 Dose: 4 units Lactobacillus Rhamnosus (Culturelle 15b) 1 each PO DAILY [facility] Stop: 08/30/17 15:59 Last Admin: 07/03/17 08:55 Dose: 1 each Lorazepam (Ativan) 0.5 mg GT Q6H PRN; Protocol PRN Reason: Anxiety Stop: 08/28/17 17:52 Last Admin: 07/03/17 08:41 Dose: 0.5 mg Magnesium Hydroxide (Milk Of Magnesia) 30 ml GT Q72H PRN PRN Reason: Constipation Stop: 08/28/17 17:46 Mirtazapine (Remeron) 15 mg GT HS [facility] PRN Reason: Protocol Stop: 08/28/17 20:59 Last Admin: 07/02/17 20:38 Dose: 15 mg Miscellaneous (Vancomycin Iv Per Pharmacy) 1 ea MC PRN [facility] Stop: 08/28/17 19:14 Miscellaneous (Gentamicin Iv Per Pharmacy) 1 ea PRN PRN PRN Reason: PROTOCOL Stop: 08/28/17 19:10 Miscellaneous (Probiotic Screen) 1 ea PRN PRN PRN Reason: PROTOCOL Stop: 08/30/17 15:37 Ondansetron HCl (Zofran Odt) 4 mg PO Q6H PRN PRN Reason: Nausea / Vomiting Stop: 08/28/17 15:59 Pantoprazole Sodium (Protonix) 40 mg GT DAILY [facility] Stop: 08/29/17 08:59 Last Admin: 07/03/17 08:55 Dose: 40 mg Simethicone (Mylicon) 80 mg GT Q6HR PRN PRN Reason: Gas Stop: 08/28/17 15:52 Sodium Phosphate (Fleet Enema) 118 ml RC PRN PRN PRN Reason: IF MOM/DULCOLAX INEFFECTIVE Stop: 08/28/17 19:11 Temazepam (Restoril) 15 mg PO HS PRN; Protocol PRN Reason: Insomnia Stop: 08/28/17 17:55 Last Admin: 07/03/17 01:25 Dose: 15 mg Vitamin B Complex/Vit C/Folic Acid (Vitamin B Complex W/Vitamin C) 1 tab GT DAILY [facility] Stop: 08/29/17 08:59 Last Admin: 07/03/17 08:55 Dose: 1 tab Zinc Sulfate (Zinc Sulfate) 220 mg GT DAILY [facility] Stop: 08/29/17 08:59 Last Admin: 07/03/17 08:55 Dose: 220 mg General: Alert, Other (anxious) HEENT: Atraumatic, Mucous membr. 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 - Assessment Assessment: ESRD on HD Chronic resp failur on T-piece Anxiety/Depression Ess Htn Type 2 DM Morbid obesity Multiple Ulcers - Plan Plan: Lab - Result Diagrams 07/01/17 06:00 07/01/17 06:00 Current Medications Acetaminophen (Tylenol 650mg/20.3ml Suspension) 650 mg GT DAILY [facility] Stop: 08/29/17 08:59 Last Admin: 07/01/17 09:52 Dose: 650 mg Acetaminophen (Tylenol 650mg/20.3ml Suspension) 650 mg GT Q4H PRN PRN Reason: FOR TEMP > 100 OR PAIN Stop: 08/28/17 17:49 Ascorbic Acid (Vitamin C) 500 mg GT DAILY [facility] Stop: 08/29/17 08:59 Last Admin: 07/01/17 09:53 Dose: 500 mg Aspirin (Aspirin Chewable) 81 mg GT DAILY [facility] Stop: 08/29/17 08:59 Last Admin: 07/01/17 09:54 Dose: 81 mg Atorvastatin Calcium (Lipitor) 40 mg GT HS [facility] PRN Reason: Protocol Stop: 08/28/17 20:59 Last Admin: 06/30/17 20:12 Dose: 40 mg Bisacodyl (Dulcolax 10 Mg Supp) 10 mg RC DAILY PRN PRN Reason: Constipation Stop: 08/28/17 16:00 Chlorhexidine Gluconate (Peridex) 10 ml MM QSHIFT [facility] Stop: 08/28/17 19:59 Last Admin: 07/01/17 09:54 Dose: 10 ml Cholecalciferol (Vitamin D3) 1,000 iu GT DAILY [facility] Stop: 08/29/17 08:59 Last Admin: 07/01/17 09:54 Dose: 1,000 iu Docusate Sodium (Colace) 100 mg PO DAILY [facility] Stop: 08/29/17 08:59 Last Admin: 07/01/17 09:53 Dose: 100 mg Gentamicin Sulfate 80 mg/ (Sodium Chloride) 102 mls @ 100 mls/hr IV Q24H [facility] Stop: 08/30/17 01:59 Last Admin: 07/01/17 02:59 Dose: 100 mls/hr Levofloxacin (Levaquin Pb) 500 mg in 100 mls @ 100 mls/hr IV ONETIME [facility] Stop: 08/30/17 13:29 Levofloxacin (Levaquin Pb) 250 mg in 50 mls @ 50 mls/hr IV Q48HR [facility] Stop: 08/31/17 13:29 Insulin Aspart (Novolog Insulin Sliding Scale) 0 units SUBQ Q6HR [facility] PRN Reason: Protocol Stop: 08/28/17 17:59 Last Admin: 07/01/17 12:24 Dose: 4 units Lorazepam (Ativan) 0.5 mg GT Q6H PRN; Protocol PRN Reason: Anxiety Stop: 08/28/17 17:52 Last Admin: 07/01/17 11:09 Dose: 0.5 mg Magnesium Hydroxide (Milk Of Magnesia) 30 ml GT Q72H PRN PRN Reason: Constipation Stop: 08/28/17 17:46 Mirtazapine (Remeron) 15 mg GT HS [facility] PRN Reason: Protocol Stop: 08/28/17 20:59 Last Admin: 06/30/17 20:12 Dose: 15 mg Miscellaneous (Vancomycin Iv Per Pharmacy) 1 ea MC PRN [facility] Stop: 08/28/17 19:14 Miscellaneous (Gentamicin Iv Per Pharmacy) 1 ea MC PRN PRN PRN Reason: PROTOCOL Stop: 08/28/17 19:10 Ondansetron HCl (Zofran Odt) 4 mg PO Q6H PRN PRN Reason: Nausea / Vomiting Stop: 08/28/17 15:59 Pantoprazole Sodium (Protonix) 40 mg GT DAILY [facility] Stop: 08/29/17 08:59 Last Admin: 07/01/17 09:54 Dose: 40 mg Potassium Chloride (Potassium Chloride Elixir) 40 meq GT X1 ONE Stop: 07/01/17 13:18 Potassium Chloride (Klor-Con) 20 meq PO X1 ONE Stop: 07/01/17 14:14 Simethicone (Mylicon) 80 mg GT Q6HR PRN PRN Reason: Gas Stop: 08/28/17 15:52 Sodium Phosphate (Fleet Enema) 118 ml RC PRN PRN PRN Reason: IF MOM/DULCOLAX INEFFECTIVE Stop: 08/28/17 19:11 Temazepam (Restoril) 15 mg PO HS PRN; Protocol PRN Reason: Insomnia Stop: 08/28/17 17:55 Last Admin: 07/01/17 03:16 Dose: 15 mg Vitamin B Complex/Vit C/Folic Acid (Vitamin B Complex W/Vitamin C) 1 tab GT DAILY [facility] Stop: 08/29/17 08:59 Last Admin: 07/01/17 09:53 Dose: 1 tab Zinc Sulfate (Zinc Sulfate) 220 mg GT DAILY [facility] Stop: 08/29/17 08:59 Last Admin: 07/01/17 09:55 Dose: 220 mg Lab - Result Diagrams 07/03/17 07:20 07/03/17 07:20 Pt. scheduled for dialysis in am continue ABx replace K
[2017-07-03] MEDS ORDERED: Levofloxacin 250mg/50mL 250 MG/50 ML BAG IV SCH (16:00)
[2017-07-04] MEDS: INSULIN ASPART SLIDING SCALE 100 UNITS/ML UNIT SUBQ SCH ×4 (00:02→17:18)
[2017-07-04] MEDS: Albuterol/Ipratropium Neb 3 ML AERS HHN SCH ×4 (00:09→19:38)
[2017-07-04] MEDS: Aspirin 81mg Chewable Tab GT SCH (09:58)
[2017-07-04] MEDS: Pantoprazole 40 mg/Packet GT SCH (09:58)
[2017-07-04] MEDS: Lactobacillus Rhamnosus GG 15 Billion CFU CAP.SPRINK PO SCH (09:58)
[2017-07-04] MEDS: Vitamin B Complex w/Vitamin C Tab GT SCH (09:58)
[2017-07-04] MEDS: Chlorhexidine Gluconate 0.12% 480mL Bottle MM SCH (09:59)
--- NOTE | 2017-07-04 12:21 | Infectious Disease Prog Note ---
Infectious Disease Subjective - Review of Systems Service Date: 07/04/17 Subjective: No fever, doing well. On T bar. Infectious Disease Objective - Results Result Diagrams: 07/03/17 07:20 07/03/17 07:20 Recent Labs: Laboratory Last Values WBC 6.1 Th/cmm (4.8-10.8) 07/03/17 07:20 RBC 2.53 Mil/cmm (3.80-5.20) L 07/03/17 07:20 Hgb 8.3 gm/dL (12-16) L 07/03/17 07:20 Hct 25.6 % (41.0-60) L 07/03/17 07:20 MCV 101.1 fl (81-100) H 07/03/17 07:20 MCH 32.8 pg (27.0-31.0) H 07/03/17 07:20 MCHC Differential 32.5 pg (28.0-36.0) 07/03/17 07:20 RDW 18.9 % (11.5-20.0) 07/03/17 07:20 Plt Count 237 Th/cmm (150-400) 07/03/17 07:20 MPV 9.7 fl 07/03/17 07:20 Neutrophils % 74.9 % (40.0-80.0) 06/29/17 11:02 Band Neutrophils % Not Reportable 07/01/17 06:00 Lymphocytes % 9.2 % (20.0-50.0) L 06/29/17 11:02 Monocytes % 13.7 % (2.0-10.0) H 06/29/17 11:02 Eosinophils % 1.5 % (0.0-5.0) 06/29/17 11:02 Basophils % 0.7 % (0.0-2.0) 06/29/17 11:02 Neutrophils (Manual) 68 % (40-80) 07/03/17 07:20 Lymphocytes 11 % (20-50) L 07/03/17 07:20 Monocytes 18 % (2-10) H 07/03/17 07:20 Eosinophils 3 % (0-5) 07/03/17 07:20 Basophils 1 % (0-3) 06/30/17 05:30 Platelet Estimate ADEQUATE (NORMAL) 07/03/17 07:20 Specimen Source Arterial 07/02/17 16:35 Sample Site RB 07/02/17 16:35 pH 7.49 (7.35-7.45) H 07/02/17 16:35 pCO2 46.0 mmHg (35.0-45.0) H 07/02/17 16:35 pO2 93.0 mmHg (80.0-100.0) 07/02/17 16:35 HCO3 33.1 mEq/L (20.0-26.0) H 07/02/17 16:35 Base Excess 10.4 mEq/L (-3.0-3.0) H 07/02/17 16:35 O2 Saturation 98.0 % (92.0-100.0) 07/02/17 16:35 Inspired O2 28 07/02/17 16:35 PEEP BP 07/02/17 16:35 Critical Value PW 07/02/17 16:35 Sodium 135 mEq/L (136-145) L 07/03/17 07:20 Potassium 3.6 mEq/L (3.5-5.1) 07/03/17 07:20 Chloride 97 mEq/L (98-107) L 07/03/17 07:20 Carbon Dioxide 28.9 mEq/L (21.0-31.0) 07/03/17 07:20 Anion Gap 12.7 (7.0-16.0) 07/03/17 07:20 BUN 42 mg/dL (7-25) H 07/03/17 07:20 Creatinine 2.5 mg/dL (0.6-1.2) H 07/03/17 07:20 Est GFR ( Amer) [place] 07/03/17 07:20 Est GFR (Non-Af Amer) [facility] 07/03/17 07:20 BUN/Creatinine Ratio 16.8 07/03/17 07:20 Glucose 215 mg/dL (70-105) H 07/03/17 07:20 POC Glucose 137 MG/DL (70 - 105) H 07/02/17 17:09 Hemoglobin A1c % 7.2 % (4.0-6.0) H 06/30/17 05:20 Calcium 8.9 mg/dL (8.6-10.3) 07/03/17 07:20 Total Bilirubin 0.3 mg/dL (0.3-1.0) 07/03/17 07:20 AST 44 U/L (13-39) H 07/03/17 07:20 ALT 36 U/L (7-52) 07/03/17 07:20 Alkaline Phosphatase 200 U/L (34-104) H 07/03/17 07:20 Total Protein 7.0 gm/dL (6.0-8.3) 07/03/17 07:20 Albumin 3.6 gm/dL (3.7-5.3) L 07/03/17 07:20 Globulin 3.4 gm/dL 07/03/17 07:20 Albumin/Globulin Ratio 1.1 (1.0-1.8) 07/03/17 07:20 Gentamicin 5.3 ug/mL (0.5-10.0) 07/04/17 05:10 Random Vancomycin 25.9 ug/mL (5.0-40.0) 07/04/17 05:10 Hepatitis A IgM Ab Negative (Negative) 06/30/17 05:00 Hep Bs Antigen Negative (Negative) 06/30/17 05:00 Hep B Core IgM Ab Negative (Negative) 06/30/17 05:00 Hepatitis C Antibody 0.2 s/co ratio (0.0-0.9) 06/30/17 05:00 Blood Type A POSITIVE 06/30/17 15:53 Antibody Screen NEGATIVE 06/30/17 15:53 Crossmatch See Detail 06/30/17 15:53 - Physical Exam Vitals and I&O: Vital Signs Temp 97.5 F 07/04/17 11:53 Pulse 61 07/04/17 11:53 Resp 20 07/04/17 11:53 BP 115/53 07/04/17 11:53 Pulse Ox 94 07/04/17 11:53 Intake & Output 07/03/17 07/04/17 07/04/17 18:59 06:59 18:59 Intake Total 1052 620 Output Total 700 Balance 352 620 Weight (lbs) 82.1 kg 82.1 kg Intake: Tube Feeding 596 500 Other 456 120 Output: Urine 700 Other: # Voids 2 Active Medications: Current Medications Acetaminophen (Tylenol 650mg/20.3ml Suspension) 650 mg GT DAILY [facility] Stop: 08/29/17 08:59 Last Admin: 07/04/17 09:58 Dose: 650 mg Acetaminophen (Tylenol 650mg/20.3ml Suspension) 650 mg GT Q4H PRN PRN Reason: FOR TEMP > 100 OR PAIN Stop: 08/28/17 17:49 Last Admin: 07/01/17 20:17 Dose: 650 mg Albuterol/Ipratropium (Duoneb Neb) 3 ml HHN Q6HRT [facility] Stop: 08/31/17 12:59 Last Admin: 07/04/17 07:07 Dose: 3 ml Alprazolam (Xanax) 0.25 mg PO Q8H PRN; Protocol PRN Reason: Anxiety Stop: 08/30/17 14:16 Last Admin: 07/03/17 20:19 Dose: 0.25 mg Ascorbic Acid (Vitamin C) 500 mg GT DAILY [facility] Stop: 08/29/17 08:59 Last Admin: 07/04/17 09:58 Dose: 500 mg Aspirin (Aspirin Chewable) 81 mg GT DAILY [facility] Stop: 08/29/17 08:59 Last Admin: 07/04/17 09:58 Dose: 81 mg Atorvastatin Calcium (Lipitor) 40 mg GT HS [facility] PRN Reason: Protocol Stop: 08/28/17 20:59 Last Admin: 07/03/17 20:19 Dose: 40 mg Bisacodyl (Dulcolax 10 Mg Supp) 10 mg RC DAILY PRN PRN Reason: Constipation Stop: 08/28/17 16:00 Chlorhexidine Gluconate (Peridex) 10 ml MM QSHIFT [facility] Stop: 08/28/17 19:59 Last Admin: 07/04/17 09:59 Dose: 10 ml Cholecalciferol (Vitamin D3) 1,000 iu GT DAILY [facility] Stop: 08/29/17 08:59 Last Admin: 07/04/17 09:58 Dose: 1,000 iu Docusate Sodium (Colace) 100 mg PO DAILY [facility] Stop: 08/29/17 08:59 Last Admin: 07/04/17 09:58 Dose: 100 mg Levofloxacin (Levaquin Pb) 250 mg in 50 mls @ 50 mls/hr IV Q48H [facility] Stop: 09/01/17 15:59 Last Admin: 07/03/17 17:21 Dose: 50 mls/hr Gentamicin Sulfate 60 mg/ (Sodium Chloride) 101.5 mls @ 100 mls/hr IV MWF@1500 [facility] Stop: 08/31/17 14:59 Last Admin: 07/02/17 15:00 Dose: 100 mls/hr Insulin Aspart (Novolog Insulin Sliding Scale) 0 units SUBQ Q6HR [facility] PRN Reason: Protocol Stop: 08/28/17 17:59 Last Admin: 07/04/17 05:49 Dose: 6 units Lactobacillus Rhamnosus (Culturelle 15b) 1 each PO DAILY [facility] Stop: 08/30/17 15:59 Last Admin: 07/04/17 09:58 Dose: 1 each Lorazepam (Ativan) 0.5 mg GT Q6H PRN; Protocol PRN Reason: Anxiety Stop: 08/28/17 17:52 Last Admin: 07/04/17 03:51 Dose: 0.5 mg Magnesium Hydroxide (Milk Of Magnesia) 30 ml GT Q72H PRN PRN Reason: Constipation Stop: 08/28/17 17:46 Mirtazapine (Remeron) 15 mg GT HS [facility] PRN Reason: Protocol Stop: 08/28/17 20:59 Last Admin: 07/03/17 20:19 Dose: 15 mg Miscellaneous (Vancomycin Iv Per Pharmacy) 1 ea MC PRN [facility] Stop: 08/28/17 19:14 Miscellaneous (Gentamicin Iv Per Pharmacy) 1 ea MC PRN PRN PRN Reason: PROTOCOL Stop: 08/28/17 19:10 Miscellaneous (Probiotic Screen) 1 ea MC PRN PRN PRN Reason: PROTOCOL Stop: 08/30/17 15:37 Ondansetron HCl (Zofran Odt) 4 mg PO Q6H PRN PRN Reason: Nausea / Vomiting Stop: 08/28/17 15:59 Pantoprazole Sodium (Protonix) 40 mg GT DAILY [facility] Stop: 08/29/17 08:59 Last Admin: 07/04/17 09:58 Dose: 40 mg Simethicone (Mylicon) 80 mg GT Q6HR PRN PRN Reason: Gas Stop: 08/28/17 15:52 Sodium Phosphate (Fleet Enema) 118 ml RC PRN PRN PRN Reason: IF MOM/DULCOLAX INEFFECTIVE Stop: 08/28/17 19:11 Temazepam (Restoril) 15 mg PO HS PRN; Protocol PRN Reason: Insomnia Stop: 08/28/17 17:55 Last Admin: 07/03/17 01:25 Dose: 15 mg Vitamin B Complex/Vit C/Folic Acid (Vitamin B Complex W/Vitamin C) 1 tab GT DAILY [facility] Stop: 08/29/17 08:59 Last Admin: 07/04/17 09:58 Dose: 1 tab Zinc Sulfate (Zinc Sulfate) 220 mg GT DAILY [facility] Stop: 08/29/17 08:59 Last Admin: 07/04/17 09:58 Dose: 220 mg General: no acute distress, well developed, well nourished HEENT: atraumatic, normocephalic Neck: supple, thyromegaly Cardiovascular: S1S2, regular Lungs: clear to auscultation bilaterally, clear to percussion Abdomen: soft, no tender, no distended Extremities: no cyanosis, no clubbing, no edema Neurological: awake, alert, oriented Infectious Disease Assmt/Plan - Problem List Patient Problems: All Active Problems 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 AV shunt malfunction. 2. Pneumonia. 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 4. DM2 5. HTN. 6. Respiratory failure. 7.CHF. - Plan Plan: Continue Levaquin 10 days.
--- NOTE | 2017-07-04 14:41 | General Progress Note ---
Subjective - Review of Systems Service Date: 07/04/17 Subjective: alert, anxious, on T-piece Objective - Results Result Diagrams: 07/03/17 07:20 07/03/17 07:20 Recent Labs: Laboratory Last Values WBC 6.1 Th/cmm (4.8-10.8) 07/03/17 07:20 RBC 2.53 Mil/cmm (3.80-5.20) L 07/03/17 07:20 Hgb 8.3 gm/dL (12-16) L 07/03/17 07:20 Hct 25.6 % (41.0-60) L 07/03/17 07:20 MCV 101.1 fl (81-100) H 07/03/17 07:20 MCH 32.8 pg (27.0-31.0) H 07/03/17 07:20 MCHC Differential 32.5 pg (28.0-36.0) 07/03/17 07:20 RDW 18.9 % (11.5-20.0) 07/03/17 07:20 Plt Count 237 Th/cmm (150-400) 07/03/17 07:20 MPV 9.7 fl 07/03/17 07:20 Neutrophils % 74.9 % (40.0-80.0) 06/29/17 11:02 Band Neutrophils % Not Reportable 07/01/17 06:00 Lymphocytes % 9.2 % (20.0-50.0) L 06/29/17 11:02 Monocytes % 13.7 % (2.0-10.0) H 06/29/17 11:02 Eosinophils % 1.5 % (0.0-5.0) 06/29/17 11:02 Basophils % 0.7 % (0.0-2.0) 06/29/17 11:02 Neutrophils (Manual) 68 % (40-80) 07/03/17 07:20 Lymphocytes 11 % (20-50) L 07/03/17 07:20 Monocytes 18 % (2-10) H 07/03/17 07:20 Eosinophils 3 % (0-5) 07/03/17 07:20 Basophils 1 % (0-3) 06/30/17 05:30 Platelet Estimate ADEQUATE (NORMAL) 07/03/17 07:20 Specimen Source Arterial 07/02/17 16:35 Sample Site RB 07/02/17 16:35 pH 7.49 (7.35-7.45) H 07/02/17 16:35 pCO2 46.0 mmHg (35.0-45.0) H 07/02/17 16:35 pO2 93.0 mmHg (80.0-100.0) 07/02/17 16:35 HCO3 33.1 mEq/L (20.0-26.0) H 07/02/17 16:35 Base Excess 10.4 mEq/L (-3.0-3.0) H 07/02/17 16:35 O2 Saturation 98.0 % (92.0-100.0) 07/02/17 16:35 Inspired O2 28 07/02/17 16:35 PEEP BP 07/02/17 16:35 Critical Value PW 07/02/17 16:35 Sodium 135 mEq/L (136-145) L 07/03/17 07:20 Potassium 3.6 mEq/L (3.5-5.1) 07/03/17 07:20 Chloride 97 mEq/L (98-107) L 07/03/17 07:20 Carbon Dioxide 28.9 mEq/L (21.0-31.0) 07/03/17 07:20 Anion Gap 12.7 (7.0-16.0) 07/03/17 07:20 BUN 42 mg/dL (7-25) H 07/03/17 07:20 Creatinine 2.5 mg/dL (0.6-1.2) H 07/03/17 07:20 Est GFR ( Amer) [facility] 07/03/17 07:20 Est GFR (Non-Af Amer) [facility] 07/03/17 07:20 BUN/Creatinine Ratio 16.8 07/03/17 07:20 Glucose 215 mg/dL (70-105) H 07/03/17 07:20 POC Glucose 137 MG/DL (70 - 105) H 07/02/17 17:09 Hemoglobin A1c % 7.2 % (4.0-6.0) H 06/30/17 05:20 Calcium 8.9 mg/dL (8.6-10.3) 07/03/17 07:20 Total Bilirubin 0.3 mg/dL (0.3-1.0) 07/03/17 07:20 AST 44 U/L (13-39) H 07/03/17 07:20 ALT 36 U/L (7-52) 07/03/17 07:20 Alkaline Phosphatase 200 U/L (34-104) H 07/03/17 07:20 Total Protein 7.0 gm/dL (6.0-8.3) 07/03/17 07:20 Albumin 3.6 gm/dL (3.7-5.3) L 07/03/17 07:20 Globulin 3.4 gm/dL 07/03/17 07:20 Albumin/Globulin Ratio 1.1 (1.0-1.8) 07/03/17 07:20 Gentamicin 5.3 ug/mL (0.5-10.0) 07/04/17 05:10 Random Vancomycin 25.9 ug/mL (5.0-40.0) 07/04/17 05:10 Hepatitis A IgM Ab Negative (Negative) 06/30/17 05:00 Hep Bs Antigen Negative (Negative) 06/30/17 05:00 Hep B Core IgM Ab Negative (Negative) 06/30/17 05:00 Hepatitis C Antibody 0.2 s/co ratio (0.0-0.9) 06/30/17 05:00 Blood Type A POSITIVE 06/30/17 15:53 Antibody Screen NEGATIVE 06/30/17 15:53 Crossmatch See Detail 06/30/17 15:53 - Physical Exam Vitals and I&O: Vital Signs Temp 97.5 F 07/04/17 11:53 Pulse 61 07/04/17 13:37 Resp 20 07/04/17 13:37 BP 115/53 07/04/17 11:53 Pulse Ox 94 07/04/17 13:37 Intake & Output 07/03/17 07/04/17 07/04/17 18:59 06:59 18:59 Intake Total 1052 620 Output Total 700 Balance 352 620 Weight (lbs) 82.1 kg 82.1 kg Intake: Tube Feeding 596 500 Other 456 120 Output: Urine 700 Other: # Voids 2 Active Medications: Current Medications Acetaminophen (Tylenol 650mg/20.3ml Suspension) 650 mg GT DAILY [facility] Stop: 08/29/17 08:59 Last Admin: 07/04/17 09:58 Dose: 650 mg Acetaminophen (Tylenol 650mg/20.3ml Suspension) 650 mg GT Q4H PRN PRN Reason: FOR TEMP > 100 OR PAIN Stop: 08/28/17 17:49 Last Admin: 07/01/17 20:17 Dose: 650 mg Albuterol/Ipratropium (Duoneb Neb) 3 ml HHN Q6HRT [facility] Stop: 08/31/17 12:59 Last Admin: 07/04/17 13:37 Dose: 3 ml Alprazolam (Xanax) 0.25 mg PO Q8H PRN; Protocol PRN Reason: Anxiety Stop: 08/30/17 14:16 Last Admin: 07/03/17 20:19 Dose: 0.25 mg Ascorbic Acid (Vitamin C) 500 mg GT DAILY [facility] Stop: 08/29/17 08:59 Last Admin: 07/04/17 09:58 Dose: 500 mg Aspirin (Aspirin Chewable) 81 mg GT DAILY [facility] Stop: 08/29/17 08:59 Last Admin: 07/04/17 09:58 Dose: 81 mg Atorvastatin Calcium (Lipitor) 40 mg GT HS [facility] PRN Reason: Protocol Stop: 08/28/17 20:59 Last Admin: 07/03/17 20:19 Dose: 40 mg Bisacodyl (Dulcolax 10 Mg Supp) 10 mg RC DAILY PRN PRN Reason: Constipation Stop: 08/28/17 16:00 Chlorhexidine Gluconate (Peridex) 10 ml MM QSHIFT [facility] Stop: 08/28/17 19:59 Last Admin: 07/04/17 09:59 Dose: 10 ml Cholecalciferol (Vitamin D3) 1,000 iu GT DAILY [facility] Stop: 08/29/17 08:59 Last Admin: 07/04/17 09:58 Dose: 1,000 iu Docusate Sodium (Colace) 100 mg PO DAILY [facility] Stop: 08/29/17 08:59 Last Admin: 07/04/17 09:58 Dose: 100 mg Levofloxacin (Levaquin Pb) 250 mg in 50 mls @ 50 mls/hr IV Q48H [facility] Stop: 09/01/17 15:59 Last Admin: 07/03/17 17:21 Dose: 50 mls/hr Gentamicin Sulfate 60 mg/ (Sodium Chloride) 101.5 mls @ 100 mls/hr IV MWF@1500 [facility] Stop: 08/31/17 14:59 Last Admin: 07/02/17 15:00 Dose: 100 mls/hr Insulin Aspart (Novolog Insulin Sliding Scale) 0 units SUBQ Q6HR [facility] PRN Reason: Protocol Stop: 08/28/17 17:59 Last Admin: 07/04/17 13:26 Dose: 4 units Lactobacillus Rhamnosus (Culturelle 15b) 1 each PO DAILY [facility] Stop: 08/30/17 15:59 Last Admin: 07/04/17 09:58 Dose: 1 each Lorazepam (Ativan) 0.5 mg GT Q6H PRN; Protocol PRN Reason: Anxiety Stop: 08/28/17 17:52 Last Admin: 07/04/17 03:51 Dose: 0.5 mg Magnesium Hydroxide (Milk Of Magnesia) 30 ml GT Q72H PRN PRN Reason: Constipation Stop: 08/28/17 17:46 Mirtazapine (Remeron) 15 mg GT HS [facility] PRN Reason: Protocol Stop: 08/28/17 20:59 Last Admin: 07/03/17 20:19 Dose: 15 mg Miscellaneous (Vancomycin Iv Per Pharmacy) 1 ea MC PRN [facility] Stop: 08/28/17 19:14 Miscellaneous (Gentamicin Iv Per Pharmacy) 1 ea PRN PRN PRN Reason: PROTOCOL Stop: 08/28/17 19:10 Miscellaneous (Probiotic Screen) 1 ea PRN PRN PRN Reason: PROTOCOL Stop: 08/30/17 15:37 Ondansetron HCl (Zofran Odt) 4 mg PO Q6H PRN PRN Reason: Nausea / Vomiting Stop: 08/28/17 15:59 Pantoprazole Sodium (Protonix) 40 mg GT DAILY [facility] Stop: 08/29/17 08:59 Last Admin: 07/04/17 09:58 Dose: 40 mg Simethicone (Mylicon) 80 mg GT Q6HR PRN PRN Reason: Gas Stop: 08/28/17 15:52 Sodium Phosphate (Fleet Enema) 118 ml RC PRN PRN PRN Reason: IF MOM/DULCOLAX INEFFECTIVE Stop: 08/28/17 19:11 Temazepam (Restoril) 15 mg PO HS PRN; Protocol PRN Reason: Insomnia Stop: 08/28/17 17:55 Last Admin: 07/03/17 01:25 Dose: 15 mg Vitamin B Complex/Vit C/Folic Acid (Vitamin B Complex W/Vitamin C) 1 tab GT DAILY [facility] Stop: 08/29/17 08:59 Last Admin: 07/04/17 09:58 Dose: 1 tab Zinc Sulfate (Zinc Sulfate) 220 mg GT DAILY [facility] Stop: 08/29/17 08:59 Last Admin: 07/04/17 09:58 Dose: 220 mg General: Alert, Mild distress, Other (anxious) HEENT: Atraumatic, Mucous membr. 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 - Assessment Assessment: ESRD on HD Chronic resp failur on T-piece Anxiety/Depression Ess Htn Type 2 DM Morbid obesity Multiple Ulcers acute decompensation of CHF - Plan Plan: Lab - Result Diagrams 07/01/17 06:00 07/01/17 06:00 Current Medications Acetaminophen (Tylenol 650mg/20.3ml Suspension) 650 mg GT DAILY [facility] Stop: 08/29/17 08:59 Last Admin: 07/01/17 09:52 Dose: 650 mg Acetaminophen (Tylenol 650mg/20.3ml Suspension) 650 mg GT Q4H PRN PRN Reason: FOR TEMP > 100 OR PAIN Stop: 08/28/17 17:49 Ascorbic Acid (Vitamin C) 500 mg GT DAILY [facility] Stop: 08/29/17 08:59 Last Admin: 07/01/17 09:53 Dose: 500 mg Aspirin (Aspirin Chewable) 81 mg GT DAILY [facility] Stop: 08/29/17 08:59 Last Admin: 07/01/17 09:54 Dose: 81 mg Atorvastatin Calcium (Lipitor) 40 mg GT HS [facility] PRN Reason: Protocol Stop: 08/28/17 20:59 Last Admin: 06/30/17 20:12 Dose: 40 mg Bisacodyl (Dulcolax 10 Mg Supp) 10 mg RC DAILY PRN PRN Reason: Constipation Stop: 08/28/17 16:00 Chlorhexidine Gluconate (Peridex) 10 ml MM QSHIFT [facility] Stop: 08/28/17 19:59 Last Admin: 07/01/17 09:54 Dose: 10 ml Cholecalciferol (Vitamin D3) 1,000 iu GT DAILY [facility] Stop: 08/29/17 08:59 Last Admin: 07/01/17 09:54 Dose: 1,000 iu Docusate Sodium (Colace) 100 mg PO DAILY [facility] Stop: 08/29/17 08:59 Last Admin: 07/01/17 09:53 Dose: 100 mg Gentamicin Sulfate 80 mg/ (Sodium Chloride) 102 mls @ 100 mls/hr IV Q24H [facility] Stop: 08/30/17 01:59 Last Admin: 07/01/17 02:59 Dose: 100 mls/hr Levofloxacin (Levaquin Pb) 500 mg in 100 mls @ 100 mls/hr IV ONETIME [facility] Stop: 08/30/17 13:29 Levofloxacin (Levaquin Pb) 250 mg in 50 mls @ 50 mls/hr IV Q48HR [facility] Stop: 08/31/17 13:29 Insulin Aspart (Novolog Insulin Sliding Scale) 0 units SUBQ Q6HR [facility] PRN Reason: Protocol Stop: 08/28/17 17:59 Last Admin: 07/01/17 12:24 Dose: 4 units Lorazepam (Ativan) 0.5 mg GT Q6H PRN; Protocol PRN Reason: Anxiety Stop: 08/28/17 17:52 Last Admin: 07/01/17 11:09 Dose: 0.5 mg Magnesium Hydroxide (Milk Of Magnesia) 30 ml GT Q72H PRN PRN Reason: Constipation Stop: 08/28/17 17:46 Mirtazapine (Remeron) 15 mg GT HS [facility] PRN Reason: Protocol Stop: 08/28/17 20:59 Last Admin: 06/30/17 20:12 Dose: 15 mg Miscellaneous (Vancomycin Iv Per Pharmacy) 1 ea MC PRN [facility] Stop: 08/28/17 19:14 Miscellaneous (Gentamicin Iv Per Pharmacy) 1 ea MC PRN PRN PRN Reason: PROTOCOL Stop: 08/28/17 19:10 Ondansetron HCl (Zofran Odt) 4 mg PO Q6H PRN PRN Reason: Nausea / Vomiting Stop: 08/28/17 15:59 Pantoprazole Sodium (Protonix) 40 mg GT DAILY [facility] Stop: 08/29/17 08:59 Last Admin: 07/01/17 09:54 Dose: 40 mg Potassium Chloride (Potassium Chloride Elixir) 40 meq GT X1 ONE Stop: 07/01/17 13:18 Potassium Chloride (Klor-Con) 20 meq PO X1 ONE Stop: 07/01/17 14:14 Simethicone (Mylicon) 80 mg GT Q6HR PRN PRN Reason: Gas Stop: 08/28/17 15:52 Sodium Phosphate (Fleet Enema) 118 ml RC PRN PRN PRN Reason: IF MOM/DULCOLAX INEFFECTIVE Stop: 08/28/17 19:11 Temazepam (Restoril) 15 mg PO HS PRN; Protocol PRN Reason: Insomnia Stop: 08/28/17 17:55 Last Admin: 07/01/17 03:16 Dose: 15 mg Vitamin B Complex/Vit C/Folic Acid (Vitamin B Complex W/Vitamin C) 1 tab GT DAILY [facility] Stop: 08/29/17 08:59 Last Admin: 07/01/17 09:53 Dose: 1 tab Zinc Sulfate (Zinc Sulfate) 220 mg GT DAILY [facility] Stop: 08/29/17 08:59 Last Admin: 07/01/17 09:55 Dose: 220 mg Lab - Result Diagrams 07/03/17 07:20 07/03/17 07:20 Pt. scheduled for dialysis again in am due to worsening CHF on CXR continue ABx replace K
--- NOTE | 2017-07-08 16:10 | Discharge Summary ---
DATE OF DISCHARGE: 07/04/2017 INITIAL DIAGNOSES: The patient is status post trach, status post PEG with acute respiratory failure, pneumonia, chronic kidney disease on dialysis and history of hypertension. HISTORY AND HOSPITAL COURSE: The patient was treated and had a stormy course, had a rapid response called, had hypotension, septic shock improved. The patient was in stable condition on 07/04/2017. The patient was discharged back to [facility] where I will be following the patient. MEDICATIONS: See the reconciliation sheet. I will follow up in 2 days. FINAL DIAGNOSES: Pneumonia improving, status post trach, status post PEG, and ESRD on dialysis. JOB# [id number]
== END 2017-07-04 20:39 | disposition home or self-care (01) | DRG 314 ==
LOC: ER 10:15 → MSI 13:16 → TELE 07-02 11:01
PROVIDERS: ADMIT Internal Medicine; ATTEND Internal Medicine
PROC: 30233N1 Transfusion of Nonautologous Red Blood Cells into Peripheral Vein, Percutaneous Approach (ICD-10-PCS; principal; 2017-06-30)
PROC: 5A1D70Z Performance of Urinary Filtration, Intermittent, Less than 6 Hours Per Day (ICD-10-PCS; 2017-06-30)
PROC: 5A1D70Z Performance of Urinary Filtration, Intermittent, Less than 6 Hours Per Day (ICD-10-PCS; 2017-07-02)
PROC: 5A1D70Z Performance of Urinary Filtration, Intermittent, Less than 6 Hours Per Day (ICD-10-PCS; 2017-07-04)
DX: T82.511A Breakdown (mechanical) of surgically created arteriovenous shunt, initial encounter (principal); J18.9 Pneumonia, unspecified organism; N18.6 End stage renal disease; I13.2 Hypertensive heart and chronic kidney disease with heart failure and with stage 5 chronic kidney disease, or end stage renal disease; J96.10 Chronic respiratory failure, unspecified whether with hypoxia or hypercapnia; Z93.0 Tracheostomy status; E11.22 Type 2 diabetes mellitus with diabetic chronic kidney disease; I50.9 Heart failure, unspecified; E87.1 Hypo-osmolality and hyponatremia; Z93.1 Gastrostomy status; D63.1 Anemia in chronic kidney disease; E66.01 Morbid (severe) obesity due to excess calories; F32.9 Major depressive disorder, single episode, unspecified; F41.9 Anxiety disorder, unspecified; Y83.8 Other surgical procedures as the cause of abnormal reaction of the patient, or of later complication, without mention of misadventure at the time of the procedure; Y92.89 Other specified places as the place of occurrence of the external cause; Z88.5 Allergy status to narcotic agent; Z88.8 Allergy status to other drugs, medicaments and biological substances; Z79.4 Long term (current) use of insulin; Z68.34 Body mass index [BMI] 34.0-34.9, adult
CPT/HCPCS: 36415-UA; 36600-90; 71045-TC; 80048-TC; 80053-TC; 80074-90; 80170-TC; 80202-TC; 82803-TC; 82948-90; 83036-90; 85007-TC; 85025-TC; 85027-TC; 86850-TC; 86900-TC; 86901-TC; 86922-TC; 90937; 93005; 93931-LT-TC; 94640; 94760; 96374; 97971-TC-LT; J1580; J1815; J1956; J2060; J3370; J7030; J7040; P9016; Q0162; Z7610

== ENCOUNTER 2017-07-10 20:20 | Inpatient (IN) | payer MEDICAID, MEDICARE ==
[2017-07-10] MEDS ORDERED: Simethicone 20 mg/0.3 mL 30mL Bottle GT PRN (22:35)
[2017-07-10] MEDS ORDERED: Magnesium Hydroxide (MOM) 30 mL UDC GT PRN (22:40)
[2017-07-10] MEDS ORDERED: Fleet Enema 135 mL RC PRN (22:46)
[2017-07-10 22:58] LABS: MEAN CELL VOLUME 99.4 fl (81-100); MEAN CORPUSCULAR HEMOGLOBIN 32.5 pg (27.0-31.0); MEAN CORPUSCULAR HGB CONC 32.7 pg (28.0-36.0); MEAN PLATELET VOLUME 10.2 fl; PLATELET COUNT 253 Th/cmm (150-400); RED BLOOD COUNT 1.92 Mil/cmm (3.80-5.20); RED CELL DISTRIBUTION WIDTH 17.2 % (11.5-20.0); WHITE BLOOD COUNT 7.8 Th/cmm (4.8-10.8)
[2017-07-10 23:06] LABS: HEMOGLOBIN 6.2 gm/dL (12-16)
[2017-07-10 23:22] VITALS: BP 132/76
[2017-07-10 23:23] LABS: ALB/GLOB RATIO 1.2 (1.0-1.8); ALBUMIN 3.5 gm/dL (3.7-5.3); ALKALINE PHOSPHATASE 139 U/L (34-104); ANION GAP 13.6 (7.0-16.0); BILIRUBIN,TOTAL 0.3 mg/dL (0.3-1.0); CALCIUM SERUM 9.1 mg/dL (8.6-10.3); CARBON DIOXIDE 31.7 mEq/L (21.0-31.0); CHLORIDE 90 mEq/L (98-107); CHOLESTEROL 62 mg/dL (<200); CREATININE - SERUM 3.7 mg/dL (0.6-1.2); GLUCOSE 134 mg/dL (70-105); HDL -HIGH DENSITY LIPOPROTEIN 32 mg/dL (23-92); POTASSIUM SERUM 3.3 mEq/L (3.5-5.1); SGOT 17 U/L (13-39); SGPT/ALT 13 U/L (7-52); SODIUM SERUM 132 mEq/L (136-145); TOTAL PROTEIN,SERUM 6.4 gm/dL (6.0-8.3); TRIGLYCERIDES 73 mg/dL (<150)
[2017-07-10 23:24] LABS: BUN - UREA NITROGEN 91 mg/dL (7-25)
[2017-07-10 23:38] LABS: BAND NEUTROPHILE 2 % (0-10); EOSINOPHIL 4 % (0-5); HYPOCHROMIA 1+; LYMPHOCYTE 10 % (20-50); MONOCYTE 4 % (2-10); NEUTROPHILS 80 % (40-80); PLATELET ESTIMATE ADEQUATE (NORMAL); POLYCHROMASIA 1+; TOTAL CELLS COUNTED 100
[2017-07-10 23:39] LABS: TEAR DROP CELLS 1+
[2017-07-11] MEDS ORDERED: Potassium Chloride Elixir 20 mEq /15 mL UDC GT ONE (01:45)
[2017-07-11] MEDS: INSULIN ASPART SLIDING SCALE 100 UNITS/ML UNIT SUBQ SCH ×4 (06:00→18:35)
[2017-07-11] MEDS ORDERED: Chlorhexidine Gluconate 0.12% 15mL Mouthwash MM SCH (08:00)
--- NOTE | 2017-07-11 08:46 | Diagnostic Imaging Report ---
CHEST X-RAY: AP view INDICATION: Shortness of breath COMPARISON: 07/03/2017 FINDINGS: Tracheostomy tube is stable. Findings of CHF are again noted bilateral effusions and infiltrates. Cardiomegaly is noted. IMPRESSION: Persistent CHF, bilateral effusions and infiltrates. Cardiomegaly.
[2017-07-11] MEDS: Pantoprazole 40 mg/Packet GT SCH (08:55)
[2017-07-11] MEDS ORDERED: Aspirin 81mg Chewable Tab PO SCH (09:00)
[2017-07-11] MEDS ORDERED: Docusate Sodium 100 mg/10 mL UD GT SCH (09:00)
[2017-07-11] MEDS ORDERED: Levofloxacin 500mg/100mL 500 MG/100 ML BAG IV ONE (10:30)
[2017-07-11 15:39] LABS: % BASOPHILS 1.3 % (0.0-2.0); % EOSINOPHILS 0.8 % (0.0-5.0); % LYMPHOCYTES 8.8 % (20.0-50.0); % MONOCYTES 7.9 % (2.0-10.0); % NEUTROPHILS 81.2 % (40.0-80.0); BASOPHILE ABSOLUTE 0.1 Th/cumm (0-0.2); HEMATOCRIT 26.1 % (41.0-60); HEMOGLOBIN 8.8 gm/dL (12-16); LYMPHOCYTE ABSOLUTE 0.5 Th/cmm (1.5-3.0); MEAN CELL VOLUME 96.3 fl (81-100); MEAN CORPUSCULAR HEMOGLOBIN 32.3 pg (27.0-31.0); MEAN CORPUSCULAR HGB CONC 33.6 pg (28.0-36.0); MEAN PLATELET VOLUME 9.9 fl; MONOCYTE ABSOLUTE 0.5 Th/cmm (0.3-1.0); NEUTROPHILE ABSOLUTE 4.9 Th/cmm (1.8-8.0); PLATELET COUNT 243 Th/cmm (150-400); RED BLOOD COUNT 2.71 Mil/cmm (3.80-5.20); RED CELL DISTRIBUTION WIDTH 18.4 % (11.5-20.0)
[2017-07-11] MEDS ORDERED: VTE Chemical Prophylaxis Screen/Admission MC PRN (16:55)
[2017-07-11] MEDS ORDERED: Magnesium Hydroxide (MOM) 30 mL UDC GT PRN (18:21)
[2017-07-11] MEDS ORDERED: Fleet Enema 135 mL RC PRN (18:21)
[2017-07-11] MEDS: Albuterol/Ipratropium Neb 3 ML AERS HHN SCH (19:05)
--- NOTE | 2017-07-11 19:14 | History and Physical ---
History of Present Illness - HPI Chief Complaint: low h/h HPI: This is a 76 year old female who is a direct admit from [facility] due to low h/h. Vital Signs: Last Vital Signs Temp 97.3 F 07/11/17 15:00 Pulse 66 07/11/17 15:00 Resp 21 07/11/17 15:00 BP 138/51 07/11/17 15:00 Pulse Ox 100 07/11/17 15:00 Past Medical History Other History: esrd dm htn dysphagia hyperlipidemia acute respiratory failure - Past Surgical History Past Surgical History: Other (trach) Family Medical History - Family Member Mother History Unknown: Yes Ethnicity: Social History Smoke: No Alcohol: None Drugs: None Lives: Snf - Medications Home Medications: Home Medication Medication Instructions Recorded Type Acetaminophen [8 Hour] 650 mg GT Q4H PRN 06/29/17 History Acetaminophen [Tylenol] 650 mg GT DAILY 06/29/17 History Ascorbic Acid [Vitamin C] 500 mg GT DAILY 06/29/17 History Aspirin [Aspirin Chewable] 81 mg GT DAILY 06/29/17 History Atorvastatin Calcium [Lipitor] 40 mg GT HS 06/29/17 History Bisacodyl [Dulcolax 10 Mg Supp] 10 mg RC PRN PRN 06/29/17 History Chlorhexidine Gluconate 0.12% 10 ml MM QSHIFT 06/29/17 History [Peridex] Cholecalciferol (Vit D3) [Vitamin 1,000 iu GT DAILY 06/29/17 History D3] Docusate Sodium [Colace] 100 mg GT DAILY 06/29/17 History Fleet Enema [Fleet Enema] 118 ml RC PRN PRN 06/29/17 History Folic Acid/Vit Bcomp,C [Gina-Jie 1 tab GT DAILY 06/29/17 History Tablet] Insulin Regular, Human [Humulin R] 100 unit IJ Q6H 06/29/17 History Lansoprazole 30 mg GT DAILY 06/29/17 History Lorazepam [Ativan] 0.5 mg GT Q6H PRN 06/29/17 History Magnesium Hydroxide [Milk of 30 ml GT Q72H PRN 06/29/17 History Magnesia] Mirtazapine [Remeron] 15 mg GT HS 06/29/17 History Ondansetron [Zofran ODT] 4 mg GT Q6HR PRN 06/29/17 History Simethicone [Mylicon] 80 mg GT Q6H PRN 06/29/17 History Temazepam [Restoril*] 15 mg GT HS PRN 06/29/17 History Zinc Sulfate 220 mg GT DAILY 06/29/17 History - Allergies Allergies/Adverse Reactions: Allergies Allergy/AdvReac Type Severity Reaction Status Date / Time hydrochlorothiazide Allergy Verified 06/29/17 10:31 [From Microzide] morphine Allergy Verified 06/29/17 10:30 sertraline Allergy Verified 06/29/17 10:31 Review of Systems - Review of Systems Constitutional: Report: No Significant Eyes: Report: No Significant ENT: Report: No Significant Respiratory: Report: Cough Cardiovascular: Report: No Significant Gastrointestinal: Report: No Significant Genitourinary: Report: No Significant Skin: Report: No Significant Neurological: Report: No Significant Physical Exam - Physical Exam HEENT: Report: Ears Nose Throat within normal limits Neck: Report: Within normal limits Cardiovascular Systems: Report: +s1/s2 noted Respiratory: Report: Breath Sounds are within normal limits Extremities: Report: Non-tender to palpation. Skin: Report: Warm, Dry Neuro/Psych: Report: Mood affect is within normal limits - Lab Results All Lab Results last 24 hours: Laboratory Results - last 24 hr 07/10/17 07/10/17 07/10/17 21:51 22:35 22:35 WBC 7.8 D RBC 1.92 L Hgb 6.2 L* Hct 19.0 L* D MCV 99.4 MCH 32.5 H MCHC Differential 32.7 RDW 17.2 Plt Count 253 MPV 10.2 Neutrophils % Band Neutrophils % 2 Lymphocytes % Monocytes % Eosinophils % Basophils % Neutrophils (Manual) 80 Lymphocytes 10 L Monocytes 4 Eosinophils 4 Hypochromia 1+ Platelet Estimate ADEQUATE Polychromasia 1+ Tear Drop Cells 1+ Sodium 132 L Potassium 3.3 L Chloride 90 L Carbon Dioxide 31.7 H Anion Gap 13.6 BUN 91 H* Creatinine 3.7 H Est GFR ( Amer) TNP Est GFR (Non-Af Amer) TNP BUN/Creatinine Ratio 24.6 Glucose 134 H POC Glucose 158 H Calcium 9.1 Total Bilirubin 0.3 AST 17 ALT 13 Alkaline Phosphatase 139 H Total Protein 6.4 Albumin 3.5 L Globulin 2.9 Albumin/Globulin Ratio 1.2 Triglycerides 73 Cholesterol 62 LDL Cholesterol Direct 29 L HDL Cholesterol 32 TSH Blood Type Antibody Screen Crossmatch 07/10/17 07/10/17 07/11/17 22:35 23:30 05:29 WBC RBC Hgb Hct MCV MCH MCHC Differential RDW Plt Count MPV Neutrophils % Band Neutrophils % Lymphocytes % Monocytes % Eosinophils % Basophils % Neutrophils (Manual) Lymphocytes Monocytes Eosinophils Hypochromia Platelet Estimate Polychromasia Tear Drop Cells Sodium Potassium Chloride Carbon Dioxide Anion Gap BUN Creatinine Est GFR ( Amer) Est GFR (Non-Af Amer) BUN/Creatinine Ratio Glucose POC Glucose 123 H Calcium Total Bilirubin AST ALT Alkaline Phosphatase Total Protein Albumin Globulin Albumin/Globulin Ratio Triglycerides Cholesterol LDL Cholesterol Direct HDL Cholesterol TSH 2.27 Blood Type A POSITIVE Antibody Screen NEGATIVE Crossmatch See Detail 07/11/17 07/11/17 07/11/17 12:29 15:21 18:31 WBC 6.0 D RBC 2.71 L Hgb 8.8 L Hct 26.1 L D MCV 96.3 MCH 32.3 H MCHC Differential 33.6 RDW 18.4 Plt Count 243 MPV 9.9 Neutrophils % 81.2 H Band Neutrophils % Lymphocytes % 8.8 L Monocytes % 7.9 Eosinophils % 0.8 Basophils % 1.3 Neutrophils (Manual) Lymphocytes Monocytes Eosinophils Hypochromia Platelet Estimate Polychromasia Tear Drop Cells Sodium Potassium Chloride Carbon Dioxide Anion Gap BUN Creatinine Est GFR ( Amer) Est GFR (Non-Af Amer) BUN/Creatinine Ratio Glucose POC Glucose 231 H 208 H Calcium Total Bilirubin AST ALT Alkaline Phosphatase Total Protein Albumin Globulin Albumin/Globulin Ratio Triglycerides Cholesterol LDL Cholesterol Direct HDL Cholesterol TSH Blood Type Antibody Screen Crossmatch - Assessment Assessment: Severe Anemia Healthcare facility associated PNA acute renal failure tracheostomy status r/o gi bleed acute respiratory failure - Plan Plan: nephrology/pulmonary/gi consultation monitor h/h follow up labs in am ivabx as per id continue current orders
[2017-07-11] MEDS ORDERED: Chlorhexidine Gluconate 0.12% 480mL Bottle MM SCH (20:00)
--- NOTE | 2017-07-11 20:30 | Consultation ---
DATE OF CONSULTATION: 07/11/2017 REFERRING PHYSICIAN: Dr. Honeycutt. REASON FOR CONSULTATION: Pneumonia. HISTORY OF PRESENT ILLNESS: The patient is a 76-year-old female with a past medical history of diabetes mellitus, hypertension, CKD stage V, on hemodialysis, brought in from alf for hemodialysis treatment. On further evaluation, the patient was afebrile and WBC count was 7800. The patient's hemoglobin was also low 6.2, required blood transfusion. PAST MEDICAL HISTORY: Diabetes mellitus type 2, hypertension, hyperlipidemia, CKD stage 5, on hemodialysis. ALLERGIES: HYDROCHLOROTHIAZIDE, MORPHINE, CEFAZOLIN. MEDICATIONS: Per medication see reconciliation sheet. Antibiotic inchole, the patient is receiving no antibiotic. FAMILY HISTORY: Not available. SOCIAL HISTORY: The patient lives at nursing facility. No history of smoking, alcohol or drug use. REVIEW OF SYSTEMS: The patient is a poor historian. The patient is on the T-bar oxygen. Over the patient has no fever, no chills. No significant symptoms. PHYSICAL EXAMINATION: VITAL SIGNS: Temperature is 98.1, pulse 78, respiration is 18, blood pressure 102/22. GENERAL: The patient is comfortable lying in the bed, not in acute distress, obese. HEENT: Head is normocephalic, atraumatic. Oral cavity moist, pink tongue. Eyes: Pallor is present, no icterus. NECK: Trach site is clear. CHEST: Rhonchi present. No crackles. Decreased breath sounds in the bases. HEART: S1, S2 within normal limits. Regular rhythm. No murmur, no gallop. ABDOMEN: Soft, nontender, nondistended. Bowel sounds present. EXTREMITIES: No cyanosis, no clubbing, no edema. NEUROLOGIC: Alert, awake. LABORATORY DATA: Current lab shows WBC count is 7800, hemoglobin 6.2, hematocrit 19, platelets are 253,000. Sodium 132, potassium 3.3, chloride 90, bicarbonate 31.7 and BUN is 91, creatinine 3.7, glucose is 134. Chest x-ray shows the patient has CHF, bilateral effusions and infiltrates. IMPRESSION: 1. Pneumonia. 2. Congestive heart failure. 3. Chronic kidney disease, history of hemodialysis. 4. Diabetes mellitus type 2. RECOMMENDATIONS: Check the blood culture. Check the sputum culture. Start Levaquin. Thank you Dr. Barth for involving me in taking care of this patient. JOB# [id number]
[2017-07-11] MEDS: Atorvastatin Calcium 10 MG TAB GT SCH (21:00)
[2017-07-12] MEDS: Albuterol/Ipratropium Neb 3 ML AERS HHN SCH ×4 (00:20→18:45)
[2017-07-12] MEDS: INSULIN ASPART SLIDING SCALE 100 UNITS/ML UNIT SUBQ SCH ×4 (00:31→18:31)
[2017-07-12 04:14] LABS: % EOSINOPHILS 2.3 % (0.0-5.0); % LYMPHOCYTES 12.2 % (20.0-50.0); EOSINOPHILE ABSOLUTE 0.2 Th/cmm (0.1-0.4)
[2017-07-12 04:17] LABS: % MONOCYTES 11.8 % (2.0-10.0); % NEUTROPHILS 73.7 % (40.0-80.0); HEMATOCRIT 26.1 % (41.0-60); HEMOGLOBIN 8.7 gm/dL (12-16); MEAN CORPUSCULAR HEMOGLOBIN 32.4 pg (27.0-31.0); MEAN CORPUSCULAR HGB CONC 33.4 pg (28.0-36.0); MONOCYTE ABSOLUTE 0.9 Th/cmm (0.3-1.0); NEUTROPHILE ABSOLUTE 5.7 Th/cmm (1.8-8.0); PLATELET COUNT 265 Th/cmm (150-400); RED BLOOD COUNT 2.69 Mil/cmm (3.80-5.20); RED CELL DISTRIBUTION WIDTH 19.2 % (11.5-20.0)
[2017-07-12 04:23] LABS: WHITE BLOOD COUNT 7.8 Th/cmm (4.8-10.8)
[2017-07-12 04:39] LABS: ANION GAP 13.9 (7.0-16.0); BUN - UREA NITROGEN 54 mg/dL (7-25); CALCIUM SERUM 8.8 mg/dL (8.6-10.3); CARBON DIOXIDE 28.9 mEq/L (21.0-31.0); CHLORIDE 95 mEq/L (98-107); CREATININE - SERUM 2.7 mg/dL (0.6-1.2); GLUCOSE 181 mg/dL (70-105); MAGNESIUM 2.2 mg/dL (1.9-2.7); POTASSIUM SERUM 3.8 mEq/L (3.5-5.1); SODIUM SERUM 134 mEq/L (136-145)
--- NOTE | 2017-07-12 06:30 | Consultation ---
DATE OF CONSULTATION: 07/11/2017 ATTENDING PHYSICIAN: Edd Barth MD [employer] DESIGNER: Sandeep Quintana MD REASON FOR CONSULTATION: Electrolyte imbalance and fluid management. HISTORY OF PRESENT ILLNESS: This is a 76-year-old female with past medical history of end-stage renal disease, on hemodialysis, who was brought in for dialysis treatment. A few hours prior to admission, the patient was scheduled to have her dialysis done at [facility]. However, she was turned down upon arrival at the dialysis unit. Thus, her attending was notified and he directed the patient to be admitted directly at [facility]. Her chest x-ray revealed persistent congestive heart failure with effusions. Her hemoglobin/hematocrit were 6.2/19. PAST MEDICAL HISTORY: 1. End-stage renal disease, on hemodialysis. 2. Chronic respiratory failure, on T-piece. 3. Type 2 diabetes mellitus. 4. Essential hypertension. 5. GERD. 6. Anemia of chronic disease. PAST SURGICAL HISTORY: 1. Status post PEG placement. 2. Creation of left AV fistula. CURRENT MEDICATIONS: Acetaminophen, aspirin, chlorhexidine, folic acid, levofloxacin, magnesium hydroxide, mirtazapine, ondansetron, pantoprazole, simethicone, temazepam, and zinc sulfate. ALLERGIES: Hydrochlorothiazide, morphine, sertraline. SOCIAL AND FAMILY HISTORY: I was not able to obtain directly from the patient because she is on a T-piece and unable to communicate. REVIEW OF SYSTEMS: Again, I was not able to decipher directly from the patient because of communication problem. PHYSICAL EXAMINATION: GENERAL: The patient is awake, mild respiratory distress. VITAL SIGNS: Her blood pressure is 103/43, pulse 68, temperature 97.9 degrees. SKIN: Occasional ecchymosis and hematomas, upper extremities; warm to touch; no rash; no jaundice. HEENT: Head is normocephalic, atraumatic. Eyes, extraocular muscles intact. Pupils equal, round, reactive to light and accommodation. Anicteric sclerae. Pale conjunctivae. Nose, midline nasal septum. Mouth; moist mucosa, adequate dentition. NECK: Supple, no adenopathy, no thyromegaly, no bruits, presence of a tracheostomy tube connected to a T-piece. CHEST AND CARDIOVASCULAR SYSTEM: S1, S2. No rub or murmur. No gallop appreciated. Point of maximal impulse fifth intercostal space, left midclavicular line. No abdominal or femoral bruits appreciated. LUNGS: Equal expansion, no use of accessory muscles. No supraclavicular retractions. Decreased breath sounds, scattered rhonchi with some rales, but no wheezes appreciated. BREASTS: Pendulous, symmetrical, without any discharge. ABDOMEN: Obese, soft, positive for bowel sounds. No bruits either diastolic or systolic. RECTAL: Deferred. GENITOURINARY: Normal-appearing female genitalia. MUSCULOSKELETAL: No effusions present in her joints with limited range of motion. EXTREMITIES: She has some minimal upper extremity edema, but no cyanosis nor clubbing; palpable femoral, but unable to fully appreciate popliteal and dorsalis pedis pulses. NEUROLOGIC: The patient is awake, verbal; however, unable to follow my neuro commands, so I was not able to pursue further my neuro exam. LABORATORY DATA: Labs did reveal white count 7.8, hemoglobin 6.2, hematocrit 19, platelets 253, polys 80%. Sodium 132, potassium 3.2, chloride 90, bicarb 31, BUN 91, creatinine 3.7, and glucose 134. Albumin 3.5. IMPRESSION: 1. End-stage renal disease, on hemodialysis. 2. Persistent decompensated congestive heart failure secondary to fluid overload. 3. Severe anemia, acute, possibly gastrointestinal bleed on chronic kidney disease. 4. Chronic respiratory failure, on T-piece. 5. Type 2 diabetes mellitus with chronic kidney disease. 6. Essential hypertension with chronic kidney disease. 7. Dysphagia, status post gastroesophageal reflux disease. 8. Anemia of chronic disease. PLAN: 1. Schedule the patient for dialysis today as well as in a.m., which is her usual schedule. 2. Replace potassium. 3. Transfuse as necessary. 4. Request stool for occult blood. Thank you, Dr. Barth for this consult. We will follow the patient closely with you. JOB# [id number]
--- NOTE | 2017-07-12 08:45 | Diagnostic Imaging Report ---
Exam: Portable examination of chest. HISTORY: Shortness of breath. Findings: Portable examination of chest at 0823 hours reviewed, compared to prior study of the earlier demonstrates increased opacification of left hemithorax with the most likely infiltrate superimposed effusion. The heart is enlarged. There is evidence of right basilar infiltrate and effusion. Visualized bony thorax intact. Tracheostomy tube midline. IMPRESSION: Increased left-sided infiltrate and effusion. Superimposed cardiomegaly, right basilar pneumonia and effusion, follow-up examination recommended.
[2017-07-12] MEDS ORDERED: LANSOPRAZOLE 30 MG GT SCH (09:00)
[2017-07-12] MEDS ORDERED: Aspirin 81mg Chewable Tab GT SCH (09:00)
[2017-07-12] MEDS: Docusate Sodium 100 mg/10 mL UD PO SCH (13:28)
[2017-07-12] MEDS: Ascorbic Acid 500 mg/5 mL UDC GT SCH (13:28)
[2017-07-12] MEDS: Pantoprazole 40 mg/Packet GT SCH (13:29)
[2017-07-12] MEDS: Vitamin B Complex w/Vitamin C Tab GT SCH (13:29)
[2017-07-12 14:15] LABS: HEP A AB IGM Negative (Negative); HEP B CORE IGM Negative (Negative); HEP B SURFACE AG QL Negative (Negative); HEP C ANTIBODY 0.2 s/co ratio (0.0-0.9)
--- NOTE | 2017-07-12 15:16 | Consultation ---
DATE OF CONSULTATION: 07/11/2017 Thank you very much for this consultation. HISTORY OF PRESENT ILLNESS: This is a 76-year-old female with history of chronic respiratory failure, status post tracheostomy and history of chronic kidney disease, on dialysis; who apparently went to her dialysis to usual dialysis center and she was turned down and she was sent to the hospital to have dialysis. She was admitted here, was found to be anemic. The patient appears to be comfortable, no distress. PHYSICAL EXAMINATION: GENERAL: Awake, alert, not much secretion from the tracheostomy. VITAL SIGNS: Temperature 97.9, pulse 60, respirations 17, blood pressure 130/43, saturation 100%. HEENT: Atraumatic, normocephalic. Pupils are equal to light and accommodation. Ears, nose and throat normal. NECK: Supple. No JVD. CHEST: Has good breath sounds, no wheezing or crackles. HEART: Regular rhythm. ABDOMEN: Soft. EXTREMITIES: No edema. DIAGNOSTIC DATA: Chest x-ray showed pulmonary edema and cardiomegaly. LABORATORY DATA: WBC 7.8, hemoglobin 6.3, hematocrit 19.0, and platelets 253. Sodium is 132, potassium is 3.3, BUN is 91, and creatinine 3.7. IMPRESSION: 1. This is a 76-year-old female with chronic respiratory failure, status post tracheostomy. 2. Chronic kidney disease, on dialysis. 3. Anemia. PLAN: 1. Continue nebulized treatment. 2. Tracheostomy care. 3. Pulmonary toilet. 4. Hemodialysis and blood transfusion. Thank you, I will follow the patient with you. JOB# [id number]
--- NOTE | 2017-07-12 17:44 | Infectious Disease Prog Note ---
Infectious Disease Subjective - Review of Systems Service Date: 07/12/17 Subjective: no change. Infectious Disease Objective - Results Result Diagrams: 07/12/17 03:59 07/12/17 03:59 Recent Labs: Laboratory Last Values WBC 7.8 Th/cmm (4.8-10.8) D 07/12/17 03:59 RBC 2.69 Mil/cmm (3.80-5.20) L 07/12/17 03:59 Hgb 8.7 gm/dL (12-16) L 07/12/17 03:59 Hct 26.1 % (41.0-60) L 07/12/17 03:59 MCV 97.0 fl (81-100) 07/12/17 03:59 MCH 32.4 pg (27.0-31.0) H 07/12/17 03:59 MCHC Differential 33.4 pg (28.0-36.0) 07/12/17 03:59 RDW 19.2 % (11.5-20.0) 07/12/17 03:59 Plt Count 265 Th/cmm (150-400) 07/12/17 03:59 MPV 10.0 fl 07/12/17 03:59 Neutrophils % 73.7 % (40.0-80.0) 07/12/17 03:59 Band Neutrophils % 2 % (0-10) 07/10/17 22:35 Lymphocytes % 12.2 % (20.0-50.0) L 07/12/17 03:59 Monocytes % 11.8 % (2.0-10.0) H 07/12/17 03:59 Eosinophils % 2.3 % (0.0-5.0) 07/12/17 03:59 Basophils % 0.0 % (0.0-2.0) 07/12/17 03:59 Neutrophils (Manual) 80 % (40-80) 07/10/17 22:35 Lymphocytes 10 % (20-50) L 07/10/17 22:35 Monocytes 4 % (2-10) 07/10/17 22:35 Eosinophils 4 % (0-5) 07/10/17 22:35 Hypochromia 1+ 07/10/17 22:35 Platelet Estimate ADEQUATE (NORMAL) 07/10/17 22:35 Polychromasia 1+ 07/10/17 22:35 Tear Drop Cells 1+ 07/10/17 22:35 Sodium 134 mEq/L (136-145) L 07/12/17 03:59 Potassium 3.8 mEq/L (3.5-5.1) 07/12/17 03:59 Chloride 95 mEq/L (98-107) L 07/12/17 03:59 Carbon Dioxide 28.9 mEq/L (21.0-31.0) 07/12/17 03:59 Anion Gap 13.9 (7.0-16.0) 07/12/17 03:59 BUN 54 mg/dL (7-25) H 07/12/17 03:59 Creatinine 2.7 mg/dL (0.6-1.2) H 07/12/17 03:59 Est GFR ( Amer) TNP 07/12/17 03:59 Est GFR (Non-Af Amer) TNP 07/12/17 03:59 BUN/Creatinine Ratio 20.0 07/12/17 03:59 Glucose 181 mg/dL (70-105) H 07/12/17 03:59 POC Glucose 231 MG/DL (70 - 105) H 07/12/17 05:36 Calcium 8.8 mg/dL (8.6-10.3) 07/12/17 03:59 Magnesium 2.2 mg/dL (1.9-2.7) 07/12/17 03:59 Total Bilirubin 0.3 mg/dL (0.3-1.0) 07/10/17 22:35 AST 17 U/L (13-39) 07/10/17 22:35 ALT 13 U/L (7-52) 07/10/17 22:35 Alkaline Phosphatase 139 U/L (34-104) H 07/10/17 22:35 Total Protein 6.4 gm/dL (6.0-8.3) 07/10/17 22:35 Albumin 3.5 gm/dL (3.7-5.3) L 07/10/17 22:35 Globulin 2.9 gm/dL 07/10/17 22:35 Albumin/Globulin Ratio 1.2 (1.0-1.8) 07/10/17 22:35 Triglycerides 73 mg/dL (<150) 07/10/17 22:35 Cholesterol 62 mg/dL (<200) 07/10/17 22:35 LDL Cholesterol Direct 29 mg/dL (75-193) L 07/10/17 22:35 HDL Cholesterol 32 mg/dL (23-92) 07/10/17 22:35 TSH 2.27 uIU/ml (0.34-5.60) 07/10/17 22:35 Stool Occult Blood POSITIVE (NEGATIVE) H 07/12/17 05:00 Hepatitis A IgM Ab Negative (Negative) 07/11/17 00:00 Hep Bs Antigen Negative (Negative) 07/11/17 00:00 Hep B Core IgM Ab Negative (Negative) 07/11/17 00:00 Hepatitis C Antibody 0.2 s/co ratio (0.0-0.9) 07/11/17 00:00 Blood Type A POSITIVE 07/10/17 23:30 Antibody Screen NEGATIVE 07/10/17 23:30 Crossmatch See Detail 07/10/17 23:30 - Physical Exam Vitals and I&O: Vital Signs Temp 97.5 F 07/11/17 20:00 Pulse 72 07/12/17 14:00 Resp 14 07/12/17 14:00 BP 98/50 07/12/17 14:00 Pulse Ox 98 07/12/17 14:00 Intake & Output 07/11/17 07/12/17 07/12/17 18:59 06:59 18:59 Intake Total 1250 595 Output Total 2000 0 Balance -750 595 Weight (lbs) 71.214 kg 71.668 kg Intake: Intake, IV Amount 100 Oral 500 Tube Feeding 650 495 Other 100 Output: Urine 0 0 Other 1999 Other: # Voids 5 # Bowel Movements 2 1 Stool Characteristics Soft Soft Soft Formed Brown Brown Brown Black Black Active Medications: Current Medications Acetaminophen (Tylenol 650mg/20.3ml Suspension) 650 mg GT DAILY [facility] Stop: 09/10/17 08:59 Last Admin: 07/12/17 13:27 Dose: Not Given Acetaminophen (Tylenol 650mg/20.3ml Suspension) 650 mg GT Q4H PRN PRN Reason: TEMP >100 OR PAIN Albuterol/Ipratropium (Duoneb Neb) 3 ml HHN Q6HRT [facility] Stop: 09/09/17 18:59 Last Admin: 07/12/17 12:24 Dose: 3 ml Ascorbic Acid (Vitamin C) 500 mg GT DAILY [facility] Stop: 09/10/17 08:59 Last Admin: 07/12/17 13:28 Dose: Not Given Atorvastatin Calcium (Lipitor) 40 mg GT HS [facility] Stop: 09/09/17 20:59 Last Admin: 07/11/17 21:00 Dose: Not Given Bisacodyl (Dulcolax 10 Mg Supp) 10 mg RC Q72HR PRN PRN Reason: IF MOM INEFFECTIVE Stop: 09/10/17 07:15 Cholecalciferol (Vitamin D3) 1,000 iu GT DAILY [facility] Stop: 09/10/17 08:59 Last Admin: 07/12/17 13:28 Dose: Not Given Docusate Sodium (Colace) 100 mg PO DAILY [facility] Stop: 09/10/17 08:59 Last Admin: 07/12/17 13:28 Dose: Not Given Epoetin Aayush (Epogen) 10,000 units SUBQ MoWeFr [facility] Stop: 09/12/17 12:02 Folic Acid (Folate) 1 mg GT DAILY [facility] Stop: 09/09/17 08:59 Last Admin: 07/12/17 13:29 Dose: Not Given Levofloxacin (Levaquin Pb) 250 mg in 50 mls @ 50 mls/hr IV Q48H [facility] Stop: 09/11/17 08:59 Insulin Aspart (Novolog Insulin Sliding Scale) 0 units SUBQ Q6H [facility] PRN Reason: Protocol Stop: 09/09/17 18:29 Last Admin: 07/12/17 13:29 Dose: 2 units Lorazepam (Ativan) 0.5 mg GT Q6HR PRN; Protocol PRN Reason: Agitation Stop: 09/08/17 22:40 Last Admin: 07/12/17 04:42 Dose: 0.5 mg Lorazepam (Ativan) 0.5 mg GT Q6H PRN; Protocol PRN Reason: Anxiety Stop: 09/09/17 18:20 Mirtazapine (Remeron) 15 mg GT HS [facility] PRN Reason: Protocol Stop: 09/09/17 20:59 Last Admin: 07/11/17 21:00 Dose: Not Given Mirtazapine (Remeron) 15 mg GT HS [facility] PRN Reason: Protocol Stop: 09/09/17 20:59 Miscellaneous (Vte [employer] Prophylaxis Screen/ Admission) 1 ea [facility] PRN PRN PRN Reason: PROTOCOL Stop: 09/09/17 16:54 Ondansetron HCl (Zofran Odt) 4 mg PO Q6HR PRN PRN Reason: Nausea / Vomiting Stop: 09/09/17 18:20 Last Admin: 07/11/17 19:34 Dose: 4 mg Pantoprazole Sodium (Protonix) 40 mg GT DAILY [facility] Stop: 09/09/17 08:59 Last Admin: 07/12/17 13:29 Dose: Not Given Simethicone (Mylicon) 80 mg GT Q6H PRN PRN Reason: GAS PAIN Stop: 09/09/17 18:20 Temazepam (Restoril) 15 mg GT HS PRN PRN Reason: Insomnia Stop: 09/08/17 22:32 Last Admin: 07/12/17 00:35 Dose: 15 mg Temazepam (Restoril) 15 mg GT HS PRN; Protocol PRN Reason: Insomnia Stop: 09/09/17 18:20 Vitamin B Complex/Vit C/Folic Acid (Vitamin B Complex W/Vitamin C) 1 tab GT DAILY [facility] Stop: 09/10/17 08:59 Last Admin: 07/12/17 13:29 Dose: Not Given Zinc Sulfate (Zinc Sulfate) 220 mg GT DAILY [facility] Stop: 09/10/17 08:59 Last Admin: 07/12/17 09:00 Dose: Not Given General: no acute distress, well developed, well nourished HEENT: atraumatic, normocephalic, PERRLA, EOMI, moist mucous membrane Neck: supple, tracheostomy, no thyromegaly Cardiovascular: S1S2, regular Lungs: clear to auscultation bilaterally, clear to percussion, crackles Abdomen: soft, no tender, no distended Extremities: no cyanosis, no clubbing, no edema Neurological: awake, alert, oriented Skin: intact - Procedures Procedures: Procedures Procedure Code Date PERFORMANCE OF URINARY FILTRATION, <6 HRS/DAY [id number] 06/29/17 TRANSFUSE NONAUT RED BLOOD CELLS IN PERIPH VEIN, PERC [id number] 06/29/17 Infectious Disease Assmt/Plan - Problem List Patient Problems: All Active Problems 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 Pneumonia. 2. Congestive heart failure. 3. Chronic kidney disease, history of hemodialysis. 4. Diabetes mellitus type 2. - Plan Plan: cpm.
--- NOTE | 2017-07-12 18:55 | Progress Notes ---
DATE: 07/12/2017 SUBJECTIVE: The patient was seen in her room, lying in the bed. The patient appears to be comfortable, in no acute distress. OBJECTIVE: VITAL SIGNS: Temperature 97.8, heart rate of 68, blood pressure 115/28, respiration 15, 100% on 35% . HEENT: Head is atraumatic and normocephalic. Eyes: Bilateral conjunctivae are clear. Bilateral pupils are equally round and reactive. NECK: Supple. No JVD. The patient has a tracheostomy. CARDIOVASCULAR: S1 and S2 without murmur. PULMONARY: Decreased breath sounds. GASTROINTESTINAL: Soft and nontender without guarding. Positive bowel sounds. MUSCULOSKELETAL: No clubbing. No cyanosis noted. ASSESSMENT: 1. Pneumonia. 2. Anemia. 3. End-stage renal disease. 4. Hemodialysis dependent. 5. Respiratory failure. 6. Dysphagia. 7. Hyperlipidemia. 8. Vitamin D deficiency. 9. Diabetes mellitus. PLAN: We will keep the patient inpatient. The patient is to have scheduled dialysis for today. Also waiting for the GI doctor to evaluate the patient due to positive stool OB. Also going to put the patient aspiration precaution. Treatment plans were discussed with the patient's nurse. Treatment plans were discussed with Dr. Barth. JOB# [id number]
[2017-07-12] MEDS: Atorvastatin Calcium 10 MG TAB GT SCH (20:37)
--- NOTE | 2017-07-12 21:14 | Progress Notes ---
DATE: LOCATION: [facility] ICU bed 9. SUBJECTIVE: The patient is conscious, alert, agitated, on her tracheostomy. Dialysis has been scheduled for today. According to nursing staff, the patient is very anxious. The patient does not have any hypoxia, no history of seizure or vomiting. Tolerating tube feeding well. OBJECTIVE: VITAL SIGNS: Pulse 77, blood pressure on the lower side 95/20 to 115/28, respiration rate 13, oxygen saturation 100. Yesterday's intake 1845. HEENT: Regular. NECK: Jugular venous pressure not distended. No neck stiffness. Tracheostomy site is clear of bleeding or discharge. LUNGS: Good air entry. No rales or rhonchi. HEART: Regular, no rub or gallop. ABDOMEN: Soft. EXTREMITIES: No edema. LABORATORY DATA: Hemoglobin 8.7, platelet 265,000, and WBC 7.8. Sodium 134, potassium 3.8, chloride 95, CO2 28, BUN 54, creatinine 2.7, blood sugar 181, calcium 8.8, magnesium 2.2. Stool occult blood positive. ASSESSMENT AND PLAN: 1. Gastrointestinal bleeding. 2. Anemia. 3. Hyponatremia. 4. Chronic kidney disease, V, on chronic hemodialysis Friday, , and Friday. 5. Diabetes mellitus. 6. Gastroesophageal reflux disease. 7. Respiratory failure, on a tracheostomy. PLAN: 1. Dialysis will be done today. 2. I will increase conductivity on dialysis today due to hyponatremia. 3. Start the patient on Epogen, iron sulfate, and Nephro-Jie due to anemia. 4. Check CBC, CMP, phosphorus, magnesium tomorrow morning. 5. Discontinue magnesium hydroxide, milk of magnesia due to renal failure. If the patient has constipation, we will give the patient Colace. 6. Discontinue sodium phosphate, Fleet enema. If the patient is constipated still, then we will give lactulose. 7. We will give albumin on dialysis today due to hypotension. 8. Gastrointestinal workup has been initiated for gastrointestinal bleeding. 9. We will check CBC, CMP, phosphorus, magnesium tomorrow morning. 10. Discussed with ICU nursing staff and dialysis nurse at length. 11. I will follow the patient tomorrow. JOB# [id number]
--- NOTE | 2017-07-12 21:49 | Consultation ---
DATE OF CONSULTATION: 07/12/2017 INPATIENT GASTROINTESTINAL CONSULTATION REFERRING PHYSICIAN: Dr. Barth. REASON FOR CONSULTATION: Anemia. HISTORY OF PRESENT ILLNESS: A 76-year-old female who is a resident of skilled facility, who has had dialysis, was sent here with low hemoglobin. The patient denies having any abdominal pain. Denies hematemesis, coffee-ground emesis, melena, or hematochezia. PAST MEDICAL HISTORY: Chronic kidney disease, diabetes, hypertension, and hyperlipidemia. PAST SURGICAL HISTORY: Trach. FAMILY HISTORY: Noncontributory. SOCIAL HISTORY: Resident of [facility]. ALLERGIES: HYDROCHLOROTHIAZIDE, MORPHINE, SERTRALINE. CURRENT MEDICATIONS: Vitamin C, Lipitor, Dulcolax, Colace, folic acid, insulin, Levaquin, Ativan, milk of magnesia, Remeron, Zofran, Protonix, Mylicon, and Restoril. REVIEW OF SYSTEMS: Ten-point review of system was performed and the pertinent positive was anemia, chronic kidney disease. All other systems were otherwise negative. PHYSICAL EXAMINATION: VITAL SIGNS: Temperature 97.5, breathing 15, pulse of 68, blood pressure ____, and satting 100%. GENERAL: In no apparent distress. EYES: Anicteric. Normal conjunctivae. HENT: Normocephalic and atraumatic. Moist mucous membranes. NECK: Trached. CHEST: Some coarse breath sounds. CARDIOVASCULAR: Regular rate and rhythm. ABDOMEN: Soft, nontender, and nondistended. SKIN: Warm and dry. LABORATORY DATA: Show white count of 7.8, hemoglobin 8.7, and platelets 265. Creatinine 2.7. Stool OB is positive. IMPRESSION: A 76-year-old female with normocytic anemia and occult blood positive, cause could be from upper or lower source, not sure if the patient had recent GI workup such as endoscopy or colonoscopy. However, these two tests can be performed for further workup of the anemia occult blood positive. PLAN: 1. Follow H and H. 2. Consider endoscopy, colonoscopy early next week. 3. Continue Protonix in the meantime. 4. Follow H and H. Thank you for allowing me to participate. Please call me if you have any questions. JOB# [id number]
[2017-07-13] MEDS: INSULIN ASPART SLIDING SCALE 100 UNITS/ML UNIT SUBQ SCH ×4 (00:33→18:33)
[2017-07-13] MEDS: Albuterol/Ipratropium Neb 3 ML AERS HHN SCH ×4 (02:15→19:00)
[2017-07-13 05:05] LABS: EOSINOPHILE ABSOLUTE 0.1 Th/cmm (0.1-0.4); HEMATOCRIT 26.1 % (41.0-60); HEMOGLOBIN 8.7 gm/dL (12-16); LYMPHOCYTE ABSOLUTE 0.9 Th/cmm (1.5-3.0); MEAN CELL VOLUME 100.1 fl (81-100); MEAN CORPUSCULAR HEMOGLOBIN 33.4 pg (27.0-31.0); MEAN CORPUSCULAR HGB CONC 33.3 pg (28.0-36.0); MEAN PLATELET VOLUME 10.5 fl; MONOCYTE ABSOLUTE 1.2 Th/cmm (0.3-1.0); NEUTROPHILE ABSOLUTE 5.1 Th/cmm (1.8-8.0); PLATELET COUNT 271 Th/cmm (150-400); RED BLOOD COUNT 2.61 Mil/cmm (3.80-5.20); RED CELL DISTRIBUTION WIDTH 18.9 % (11.5-20.0); WHITE BLOOD COUNT 7.3 Th/cmm (4.8-10.8)
[2017-07-13 05:20] LABS: ALBUMIN 3.4 gm/dL (3.7-5.3); ALKALINE PHOSPHATASE 171 U/L (34-104); ANION GAP 11.4 (7.0-16.0); BILIRUBIN,TOTAL 0.3 mg/dL (0.3-1.0); BUN - UREA NITROGEN 37 mg/dL (7-25); CALCIUM SERUM 8.8 mg/dL (8.6-10.3); CARBON DIOXIDE 31.8 mEq/L (21.0-31.0); CHLORIDE 97 mEq/L (98-107); CREATININE - SERUM 2.1 mg/dL (0.6-1.2); GLUCOSE 162 mg/dL (70-105); PHOSPHOROUS 1.4 mg/dL (2.5-5.0); POTASSIUM SERUM 3.2 mEq/L (3.5-5.1); SGOT 19 U/L (13-39); SGPT/ALT 14 U/L (7-52); SODIUM SERUM 137 mEq/L (136-145); TOTAL PROTEIN,SERUM 6.7 gm/dL (6.0-8.3)
[2017-07-13 05:42] LABS: BAND NEUTROPHILE 3 % (0-10); NEUTROPHILS 78 % (40-80); TOTAL CELLS COUNTED 100
[2017-07-13 05:43] LABS: ANISOCYTOSIS 1+; ATYPICAL LYMPH 1 %; EOSINOPHIL 3 % (0-5); HYPOCHROMIA 1+; LYMPHOCYTE 10 % (20-50); MONOCYTE 5 % (2-10); PLATELET ESTIMATE ADEQUATE (NORMAL)
--- NOTE | 2017-07-13 08:53 | GI Progress Note ---
Subjective - Review of Systems Subjective: NO EVENTS Objective - Results Result Diagrams: 07/13/17 04:09 07/13/17 04:09 Recent Labs: Laboratory Last Values WBC 7.3 Th/cmm (4.8-10.8) 07/13/17 04:09 RBC 2.61 Mil/cmm (3.80-5.20) L 07/13/17 04:09 Hgb 8.7 gm/dL (12-16) L 07/13/17 04:09 Hct 26.1 % (41.0-60) L 07/13/17 04:09 MCV 100.1 fl (81-100) H 07/13/17 04:09 MCH 33.4 pg (27.0-31.0) H 07/13/17 04:09 MCHC Differential 33.3 pg (28.0-36.0) 07/13/17 04:09 RDW 18.9 % (11.5-20.0) 07/13/17 04:09 Plt Count 271 Th/cmm (150-400) 07/13/17 04:09 MPV 10.5 fl 07/13/17 04:09 Neutrophils % 73.7 % (40.0-80.0) 07/12/17 03:59 Band Neutrophils % 3 % (0-10) 07/13/17 04:09 Lymphocytes % 12.2 % (20.0-50.0) L 07/12/17 03:59 Monocytes % 11.8 % (2.0-10.0) H 07/12/17 03:59 Eosinophils % 2.3 % (0.0-5.0) 07/12/17 03:59 Basophils % 0.0 % (0.0-2.0) 07/12/17 03:59 Neutrophils (Manual) 78 % (40-80) 07/13/17 04:09 Lymphocytes 10 % (20-50) L 07/13/17 04:09 Monocytes 5 % (2-10) 07/13/17 04:09 Eosinophils 3 % (0-5) 07/13/17 04:09 Atypical Lymphocytes 1 % 07/13/17 04:09 Hypochromia 1+ 07/13/17 04:09 Platelet Estimate ADEQUATE (NORMAL) 07/13/17 04:09 Polychromasia 1+ 07/10/17 22:35 Anisocytosis 1+ 07/13/17 04:09 Macrocytosis 1+ 07/13/17 04:09 Tear Drop Cells 1+ 07/10/17 22:35 Sodium 137 mEq/L (136-145) 07/13/17 04:09 Potassium 3.2 mEq/L (3.5-5.1) L 07/13/17 04:09 Chloride 97 mEq/L (98-107) L 07/13/17 04:09 Carbon Dioxide 31.8 mEq/L (21.0-31.0) H 07/13/17 04:09 Anion Gap 11.4 (7.0-16.0) 07/13/17 04:09 BUN 37 mg/dL (7-25) H 07/13/17 04:09 Creatinine 2.1 mg/dL (0.6-1.2) H 07/13/17 04:09 Est GFR ( Amer) TNP 07/13/17 04:09 Est GFR (Non-Af Amer) TNP 07/13/17 04:09 BUN/Creatinine Ratio 17.6 07/13/17 04:09 Glucose 162 mg/dL (70-105) H 07/13/17 04:09 POC Glucose 181 MG/DL (70 - 105) H 07/13/17 05:51 Calcium 8.8 mg/dL (8.6-10.3) 07/13/17 04:09 Phosphorus 1.4 mg/dL (2.5-5.0) L 07/13/17 04:09 Magnesium 2.2 mg/dL (1.9-2.7) 07/12/17 03:59 Total Bilirubin 0.3 mg/dL (0.3-1.0) 07/13/17 04:09 AST 19 U/L (13-39) 07/13/17 04:09 ALT 14 U/L (7-52) 07/13/17 04:09 Alkaline Phosphatase 171 U/L (34-104) H 07/13/17 04:09 Total Protein 6.7 gm/dL (6.0-8.3) 07/13/17 04:09 Albumin 3.4 gm/dL (3.7-5.3) L 07/13/17 04:09 Globulin 3.3 gm/dL 07/13/17 04:09 Albumin/Globulin Ratio 1.0 (1.0-1.8) 07/13/17 04:09 Triglycerides 73 mg/dL (<150) 07/10/17 22:35 Cholesterol 62 mg/dL (<200) 07/10/17 22:35 LDL Cholesterol Direct 29 mg/dL (75-193) L 07/10/17 22:35 HDL Cholesterol 32 mg/dL (23-92) 07/10/17 22:35 TSH 2.27 uIU/ml (0.34-5.60) 07/10/17 22:35 Stool Occult Blood POSITIVE (NEGATIVE) H 07/12/17 21:00 Hepatitis A IgM Ab Negative (Negative) 07/11/17 00:00 Hep Bs Antigen Negative (Negative) 07/11/17 00:00 Hep B Core IgM Ab Negative (Negative) 07/11/17 00:00 Hepatitis C Antibody 0.2 s/co ratio (0.0-0.9) 07/11/17 00:00 Blood Type A POSITIVE 07/10/17 23:30 Antibody Screen NEGATIVE 07/10/17 23:30 Crossmatch See Detail 07/10/17 23:30 - Physical Exam Vitals and I&O: Vital Signs Temp 98.0 F 07/13/17 06:00 Pulse 70 07/13/17 06:35 Resp 16 07/13/17 06:35 BP 95/24 07/13/17 06:00 Pulse Ox 100 07/13/17 06:35 Intake & Output 07/12/17 07/13/17 07/13/17 18:59 06:59 18:59 Intake Total 1705 Output Total 3000 Balance -1295 Weight (lbs) 64.864 kg Intake: Tube Feeding 1335 Other 370 Output: Hemodialysis 3000 Other: # Bowel Movements 3 Stool Characteristics Soft Soft Brown Brown Black Active Medications: Current Medications Acetaminophen (Tylenol 650mg/20.3ml Suspension) 650 mg GT DAILY [facility] Stop: 09/10/17 08:59 Last Admin: 07/12/17 13:27 Dose: Not Given Acetaminophen (Tylenol 650mg/20.3ml Suspension) 650 mg GT Q4H PRN PRN Reason: TEMP >100 OR PAIN Albuterol/Ipratropium (Duoneb Neb) 3 ml HHN Q6HRT [facility] Stop: 09/09/17 18:59 Last Admin: 07/13/17 06:36 Dose: 3 ml Ascorbic Acid (Vitamin C) 500 mg GT DAILY [facility] Stop: 09/10/17 08:59 Last Admin: 07/12/17 13:28 Dose: Not Given Atorvastatin Calcium (Lipitor) 40 mg GT HS [facility] Stop: 09/09/17 20:59 Last Admin: 07/12/17 20:37 Dose: 40 mg Bisacodyl (Dulcolax 10 Mg Supp) 10 mg RC Q72HR PRN PRN Reason: IF MOM INEFFECTIVE Stop: 09/10/17 07:15 Cholecalciferol (Vitamin D3) 1,000 iu GT DAILY [facility] Stop: 09/10/17 08:59 Last Admin: 07/12/17 13:28 Dose: Not Given Docusate Sodium (Colace) 100 mg PO DAILY [facility] Stop: 09/10/17 08:59 Last Admin: 07/12/17 13:28 Dose: Not Given Epoetin Aayush (Epogen) 10,000 units SUBQ MoWeFr [facility] Stop: 09/12/17 12:02 Folic Acid (Folate) 1 mg GT DAILY [facility] Stop: 09/09/17 08:59 Last Admin: 07/12/17 13:29 Dose: Not Given Levofloxacin (Levaquin Pb) 250 mg in 50 mls @ 50 mls/hr IV Q48H [facility] Stop: 09/11/17 08:59 Insulin Aspart (Novolog Insulin Sliding Scale) 0 units SUBQ Q6H [facility] PRN Reason: Protocol Stop: 09/09/17 18:29 Last Admin: 07/13/17 06:02 Dose: 2 units Lorazepam (Ativan) 0.5 mg GT Q6HR PRN; Protocol PRN Reason: Agitation Stop: 09/08/17 22:40 Last Admin: 07/13/17 00:34 Dose: 0.5 mg Lorazepam (Ativan) 0.5 mg GT Q6H PRN; Protocol PRN Reason: Anxiety Stop: 09/09/17 18:20 Mirtazapine (Remeron) 15 mg GT HS [facility] PRN Reason: Protocol Stop: 09/09/17 20:59 Last Admin: 07/12/17 20:43 Dose: 15 mg Mirtazapine (Remeron) 15 mg GT HS [facility] PRN Reason: Protocol Stop: 09/09/17 20:59 Miscellaneous (Vte Chemical Prophylaxis Screen/ Admission) 1 ea [facility] PRN PRN PRN Reason: PROTOCOL Stop: 09/09/17 16:54 Ondansetron HCl (Zofran Odt) 4 mg PO Q6HR PRN PRN Reason: Nausea / Vomiting Stop: 09/09/17 18:20 Last Admin: 07/11/17 19:34 Dose: 4 mg Pantoprazole Sodium (Protonix) 40 mg GT DAILY [facility] Stop: 09/09/17 08:59 Last Admin: 07/12/17 13:29 Dose: Not Given Simethicone (Mylicon) 80 mg GT Q6H PRN PRN Reason: GAS PAIN Stop: 09/09/17 18:20 Temazepam (Restoril) 15 mg GT HS PRN PRN Reason: Insomnia Stop: 09/08/17 22:32 Last Admin: 07/12/17 00:35 Dose: 15 mg Temazepam (Restoril) 15 mg GT HS PRN; Protocol PRN Reason: Insomnia Stop: 09/09/17 18:20 Last Admin: 07/12/17 20:44 Dose: 15 mg Vitamin B Complex/Vit C/Folic Acid (Vitamin B Complex W/Vitamin C) 1 tab GT DAILY [facility] Stop: 09/10/17 08:59 Last Admin: 07/12/17 13:29 Dose: Not Given Zinc Sulfate (Zinc Sulfate) 220 mg GT DAILY [facility] Stop: 09/10/17 08:59 Last Admin: 07/12/17 09:00 Dose: Not Given - Procedures Procedures: Procedures Procedure Code Date PERFORMANCE OF URINARY FILTRATION, <6 HRS/DAY [id number] 06/29/17 TRANSFUSE NONAUT RED BLOOD CELLS IN PERIPH VEIN, PERC 76065X3 06/29/17 Assessment/Plan - Problem List Patient Problems: All Active Problems 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
[2017-07-13] MEDS ORDERED: Levofloxacin 250mg/50mL 250 MG/50 ML BAG IV SCH (09:00)
--- NOTE | 2017-07-13 09:11 | General Progress Note ---
Subjective - Review of Systems Events since last encounter: patient awake in no distress Objective - Results Result Diagrams: 07/13/17 04:09 07/13/17 04:09 Recent Labs: Laboratory Last Values WBC 7.3 Th/cmm (4.8-10.8) 07/13/17 04:09 RBC 2.61 Mil/cmm (3.80-5.20) L 07/13/17 04:09 Hgb 8.7 gm/dL (12-16) L 07/13/17 04:09 Hct 26.1 % (41.0-60) L 07/13/17 04:09 MCV 100.1 fl (81-100) H 07/13/17 04:09 MCH 33.4 pg (27.0-31.0) H 07/13/17 04:09 MCHC Differential 33.3 pg (28.0-36.0) 07/13/17 04:09 RDW 18.9 % (11.5-20.0) 07/13/17 04:09 Plt Count 271 Th/cmm (150-400) 07/13/17 04:09 MPV 10.5 fl 07/13/17 04:09 Neutrophils % 73.7 % (40.0-80.0) 07/12/17 03:59 Band Neutrophils % 3 % (0-10) 07/13/17 04:09 Lymphocytes % 12.2 % (20.0-50.0) L 07/12/17 03:59 Monocytes % 11.8 % (2.0-10.0) H 07/12/17 03:59 Eosinophils % 2.3 % (0.0-5.0) 07/12/17 03:59 Basophils % 0.0 % (0.0-2.0) 07/12/17 03:59 Neutrophils (Manual) 78 % (40-80) 07/13/17 04:09 Lymphocytes 10 % (20-50) L 07/13/17 04:09 Monocytes 5 % (2-10) 07/13/17 04:09 Eosinophils 3 % (0-5) 07/13/17 04:09 Atypical Lymphocytes 1 % 07/13/17 04:09 Hypochromia 1+ 07/13/17 04:09 Platelet Estimate ADEQUATE (NORMAL) 07/13/17 04:09 Polychromasia 1+ 07/10/17 22:35 Anisocytosis 1+ 07/13/17 04:09 Macrocytosis 1+ 07/13/17 04:09 Tear Drop Cells 1+ 07/10/17 22:35 Sodium 137 mEq/L (136-145) 07/13/17 04:09 Potassium 3.2 mEq/L (3.5-5.1) L 07/13/17 04:09 Chloride 97 mEq/L (98-107) L 07/13/17 04:09 Carbon Dioxide 31.8 mEq/L (21.0-31.0) H 07/13/17 04:09 Anion Gap 11.4 (7.0-16.0) 07/13/17 04:09 BUN 37 mg/dL (7-25) H 07/13/17 04:09 Creatinine 2.1 mg/dL (0.6-1.2) H 07/13/17 04:09 Est GFR ( Amer) TNP 07/13/17 04:09 Est GFR (Non-Af Amer) TNP 07/13/17 04:09 BUN/Creatinine Ratio 17.6 07/13/17 04:09 Glucose 162 mg/dL (70-105) H 07/13/17 04:09 POC Glucose 181 MG/DL (70 - 105) H 07/13/17 05:51 Calcium 8.8 mg/dL (8.6-10.3) 07/13/17 04:09 Phosphorus 1.4 mg/dL (2.5-5.0) L 07/13/17 04:09 Magnesium 2.2 mg/dL (1.9-2.7) 07/12/17 03:59 Total Bilirubin 0.3 mg/dL (0.3-1.0) 07/13/17 04:09 AST 19 U/L (13-39) 07/13/17 04:09 ALT 14 U/L (7-52) 07/13/17 04:09 Alkaline Phosphatase 171 U/L (34-104) H 07/13/17 04:09 Total Protein 6.7 gm/dL (6.0-8.3) 07/13/17 04:09 Albumin 3.4 gm/dL (3.7-5.3) L 07/13/17 04:09 Globulin 3.3 gm/dL 07/13/17 04:09 Albumin/Globulin Ratio 1.0 (1.0-1.8) 07/13/17 04:09 Triglycerides 73 mg/dL (<150) 07/10/17 22:35 Cholesterol 62 mg/dL (<200) 07/10/17 22:35 LDL Cholesterol Direct 29 mg/dL (75-193) L 07/10/17 22:35 HDL Cholesterol 32 mg/dL (23-92) 07/10/17 22:35 TSH 2.27 uIU/ml (0.34-5.60) 07/10/17 22:35 Stool Occult Blood POSITIVE (NEGATIVE) H 07/12/17 21:00 Hepatitis A IgM Ab Negative (Negative) 07/11/17 00:00 Hep Bs Antigen Negative (Negative) 07/11/17 00:00 Hep B Core IgM Ab Negative (Negative) 07/11/17 00:00 Hepatitis C Antibody 0.2 s/co ratio (0.0-0.9) 07/11/17 00:00 Blood Type A POSITIVE 07/10/17 23:30 Antibody Screen NEGATIVE 07/10/17 23:30 Crossmatch See Detail 07/10/17 23:30 - Physical Exam Vitals and I&O: Vital Signs Temp 98.0 F 07/13/17 06:00 Pulse 70 07/13/17 06:35 Resp 16 07/13/17 06:35 BP 95/24 07/13/17 06:00 Pulse Ox 100 07/13/17 06:35 Intake & Output 07/12/17 07/13/17 07/13/17 18:59 06:59 18:59 Intake Total 1705 Output Total 3000 Balance -1295 Weight (lbs) 64.864 kg Intake: Tube Feeding 1335 Other 370 Output: Hemodialysis 3000 Other: # Bowel Movements 3 Stool Characteristics Soft Soft Brown Brown Black Active Medications: Current Medications Acetaminophen (Tylenol 650mg/20.3ml Suspension) 650 mg GT DAILY [facility] Stop: 09/10/17 08:59 Last Admin: 07/12/17 13:27 Dose: Not Given Acetaminophen (Tylenol 650mg/20.3ml Suspension) 650 mg GT Q4H PRN PRN Reason: TEMP >100 OR PAIN Albuterol/Ipratropium (Duoneb Neb) 3 ml HHN Q6HRT [facility] Stop: 09/09/17 18:59 Last Admin: 07/13/17 06:36 Dose: 3 ml Ascorbic Acid (Vitamin C) 500 mg GT DAILY [facility] Stop: 09/10/17 08:59 Last Admin: 07/12/17 13:28 Dose: Not Given Atorvastatin Calcium (Lipitor) 40 mg GT HS [facility] Stop: 09/09/17 20:59 Last Admin: 07/12/17 20:37 Dose: 40 mg Bisacodyl (Dulcolax 10 Mg Supp) 10 mg RC Q72HR PRN PRN Reason: IF MOM INEFFECTIVE Stop: 09/10/17 07:15 Cholecalciferol (Vitamin D3) 1,000 iu GT DAILY [facility] Stop: 09/10/17 08:59 Last Admin: 07/12/17 13:28 Dose: Not Given Docusate Sodium (Colace) 100 mg PO DAILY [facility] Stop: 09/10/17 08:59 Last Admin: 07/12/17 13:28 Dose: Not Given Epoetin Aayush (Epogen) 10,000 units SUBQ MoWeFr [facility] Stop: 09/12/17 12:02 Folic Acid (Folate) 1 mg GT DAILY [facility] Stop: 09/09/17 08:59 Last Admin: 07/12/17 13:29 Dose: Not Given Levofloxacin (Levaquin Pb) 250 mg in 50 mls @ 50 mls/hr IV Q48H [facility] Stop: 09/11/17 08:59 Insulin Aspart (Novolog Insulin Sliding Scale) 0 units SUBQ Q6H [facility] PRN Reason: Protocol Stop: 09/09/17 18:29 Last Admin: 07/13/17 06:02 Dose: 2 units Lorazepam (Ativan) 0.5 mg GT Q6HR PRN; Protocol PRN Reason: Agitation Stop: 09/08/17 22:40 Last Admin: 07/13/17 00:34 Dose: 0.5 mg Lorazepam (Ativan) 0.5 mg GT Q6H PRN; Protocol PRN Reason: Anxiety Stop: 09/09/17 18:20 Mirtazapine (Remeron) 15 mg GT HS [facility] PRN Reason: Protocol Stop: 09/09/17 20:59 Last Admin: 07/12/17 20:43 Dose: 15 mg Mirtazapine (Remeron) 15 mg GT HS [facility] PRN Reason: Protocol Stop: 09/09/17 20:59 Miscellaneous (Vte Chemical Prophylaxis Screen/ Admission) 1 ea MC PRN PRN PRN Reason: PROTOCOL Stop: 09/09/17 16:54 Ondansetron HCl (Zofran Odt) 4 mg PO Q6HR PRN PRN Reason: Nausea / Vomiting Stop: 09/09/17 18:20 Last Admin: 07/11/17 19:34 Dose: 4 mg Pantoprazole Sodium (Protonix) 40 mg GT DAILY [facility] Stop: 09/09/17 08:59 Last Admin: 07/12/17 13:29 Dose: Not Given Simethicone (Mylicon) 80 mg GT Q6H PRN PRN Reason: GAS PAIN Stop: 09/09/17 18:20 Temazepam (Restoril) 15 mg GT HS PRN PRN Reason: Insomnia Stop: 09/08/17 22:32 Last Admin: 07/12/17 00:35 Dose: 15 mg Temazepam (Restoril) 15 mg GT HS PRN; Protocol PRN Reason: Insomnia Stop: 09/09/17 18:20 Last Admin: 07/12/17 20:44 Dose: 15 mg Vitamin B Complex/Vit C/Folic Acid (Vitamin B Complex W/Vitamin C) 1 tab GT DAILY [facility] Stop: 09/10/17 08:59 Last Admin: 07/12/17 13:29 Dose: Not Given Zinc Sulfate (Zinc Sulfate) 220 mg GT DAILY [facility] Stop: 09/10/17 08:59 Last Admin: 07/12/17 09:00 Dose: Not Given - Procedures Procedures: Procedures Procedure Code Date PERFORMANCE OF URINARY FILTRATION, <6 HRS/DAY [id number] 06/29/17 TRANSFUSE NONAUT RED BLOOD CELLS IN PERIPH VEIN, PERC 99036R9 06/29/17 Assessment/Plan - Problem List Patient Problems: All Active Problems 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
[2017-07-13] MEDS: Vitamin B Complex w/Vitamin C Tab GT SCH (10:16)
[2017-07-13] MEDS: Docusate Sodium 100 mg/10 mL UD PO SCH (10:17)
[2017-07-13] MEDS: Pantoprazole 40 mg/Packet GT SCH (10:17)
[2017-07-13] MEDS: Ascorbic Acid 500 mg/5 mL UDC GT SCH (10:18)
--- NOTE | 2017-07-13 10:18 | Diagnostic Imaging Report ---
Exam: Portable chest x-ray. HISTORY: Shortness of breath. Findings: Portable examination of chest at 0832 hours reviewed compatible prior study the early demonstrates increasing bilateral infiltrates and superimposed effusions. Tracheostomy tube midline. Bony thorax intact. The heart is prominent. IMPRESSION: increased bilateral infiltrates and effusions follow-up examination recommended.
--- NOTE | 2017-07-13 15:43 | Infectious Disease Prog Note ---
Infectious Disease Subjective - Review of Systems Service Date: 07/13/17 Subjective: no change. Infectious Disease Objective - Results Result Diagrams: 07/13/17 04:09 07/13/17 04:09 Recent Labs: Laboratory Last Values WBC 7.3 Th/cmm (4.8-10.8) 07/13/17 04:09 RBC 2.61 Mil/cmm (3.80-5.20) L 07/13/17 04:09 Hgb 8.7 gm/dL (12-16) L 07/13/17 04:09 Hct 26.1 % (41.0-60) L 07/13/17 04:09 MCV 100.1 fl (81-100) H 07/13/17 04:09 MCH 33.4 pg (27.0-31.0) H 07/13/17 04:09 MCHC Differential 33.3 pg (28.0-36.0) 07/13/17 04:09 RDW 18.9 % (11.5-20.0) 07/13/17 04:09 Plt Count 271 Th/cmm (150-400) 07/13/17 04:09 MPV 10.5 fl 07/13/17 04:09 Neutrophils % 73.7 % (40.0-80.0) 07/12/17 03:59 Band Neutrophils % 3 % (0-10) 07/13/17 04:09 Lymphocytes % 12.2 % (20.0-50.0) L 07/12/17 03:59 Monocytes % 11.8 % (2.0-10.0) H 07/12/17 03:59 Eosinophils % 2.3 % (0.0-5.0) 07/12/17 03:59 Basophils % 0.0 % (0.0-2.0) 07/12/17 03:59 Neutrophils (Manual) 78 % (40-80) 07/13/17 04:09 Lymphocytes 10 % (20-50) L 07/13/17 04:09 Monocytes 5 % (2-10) 07/13/17 04:09 Eosinophils 3 % (0-5) 07/13/17 04:09 Atypical Lymphocytes 1 % 07/13/17 04:09 Hypochromia 1+ 07/13/17 04:09 Platelet Estimate ADEQUATE (NORMAL) 07/13/17 04:09 Polychromasia 1+ 07/10/17 22:35 Anisocytosis 1+ 07/13/17 04:09 Macrocytosis 1+ 07/13/17 04:09 Tear Drop Cells 1+ 07/10/17 22:35 Sodium 137 mEq/L (136-145) 07/13/17 04:09 Potassium 3.2 mEq/L (3.5-5.1) L 07/13/17 04:09 Chloride 97 mEq/L (98-107) L 07/13/17 04:09 Carbon Dioxide 31.8 mEq/L (21.0-31.0) H 07/13/17 04:09 Anion Gap 11.4 (7.0-16.0) 07/13/17 04:09 BUN 37 mg/dL (7-25) H 07/13/17 04:09 Creatinine 2.1 mg/dL (0.6-1.2) H 07/13/17 04:09 Est GFR ( Amer) TNP 07/13/17 04:09 Est GFR (Non-Af Amer) TNP 07/13/17 04:09 BUN/Creatinine Ratio 17.6 07/13/17 04:09 Glucose 162 mg/dL (70-105) H 07/13/17 04:09 POC Glucose 296 MG/DL (70 - 105) H 07/13/17 13:27 Calcium 8.8 mg/dL (8.6-10.3) 07/13/17 04:09 Phosphorus 1.4 mg/dL (2.5-5.0) L 07/13/17 04:09 Magnesium 2.2 mg/dL (1.9-2.7) 07/12/17 03:59 Total Bilirubin 0.3 mg/dL (0.3-1.0) 07/13/17 04:09 AST 19 U/L (13-39) 07/13/17 04:09 ALT 14 U/L (7-52) 07/13/17 04:09 Alkaline Phosphatase 171 U/L (34-104) H 07/13/17 04:09 Total Protein 6.7 gm/dL (6.0-8.3) 07/13/17 04:09 Albumin 3.4 gm/dL (3.7-5.3) L 07/13/17 04:09 Globulin 3.3 gm/dL 07/13/17 04:09 Albumin/Globulin Ratio 1.0 (1.0-1.8) 07/13/17 04:09 Triglycerides 73 mg/dL (<150) 07/10/17 22:35 Cholesterol 62 mg/dL (<200) 07/10/17 22:35 LDL Cholesterol Direct 29 mg/dL (75-193) L 07/10/17 22:35 HDL Cholesterol 32 mg/dL (23-92) 07/10/17 22:35 TSH 2.27 uIU/ml (0.34-5.60) 07/10/17 22:35 Stool Occult Blood POSITIVE (NEGATIVE) H 07/12/17 21:00 Hepatitis A IgM Ab Negative (Negative) 07/11/17 00:00 Hep Bs Antigen Negative (Negative) 07/11/17 00:00 Hep B Core IgM Ab Negative (Negative) 07/11/17 00:00 Hepatitis C Antibody 0.2 s/co ratio (0.0-0.9) 07/11/17 00:00 Blood Type A POSITIVE 07/10/17 23:30 Antibody Screen NEGATIVE 07/10/17 23:30 Crossmatch See Detail 07/10/17 23:30 - Physical Exam Vitals and I&O: Vital Signs Temp 98.0 F 07/13/17 06:00 Pulse 74 07/13/17 13:33 Resp 18 07/13/17 13:33 BP 95/24 07/13/17 06:00 Pulse Ox 100 07/13/17 13:33 Intake & Output 07/12/17 07/13/17 07/13/17 18:59 06:59 18:59 Intake Total 1705 Output Total 3000 Balance -1295 Weight (lbs) 64.864 kg Intake: Tube Feeding 1335 Other 370 Output: Hemodialysis 3000 Other: # Bowel Movements 3 Stool Characteristics Soft Soft Brown Brown Black Active Medications: Current Medications Acetaminophen (Tylenol 650mg/20.3ml Suspension) 650 mg GT DAILY [facility] Stop: 09/10/17 08:59 Last Admin: 07/13/17 10:17 Dose: 650 mg Acetaminophen (Tylenol 650mg/20.3ml Suspension) 650 mg GT Q4H PRN PRN Reason: TEMP >100 OR PAIN Albuterol/Ipratropium (Duoneb Neb) 3 ml HHN Q6HRT [facility] Stop: 09/09/17 18:59 Last Admin: 07/13/17 13:31 Dose: 3 ml Ascorbic Acid (Vitamin C) 500 mg GT DAILY [facility] Stop: 09/10/17 08:59 Last Admin: 07/13/17 10:18 Dose: 500 mg Atorvastatin Calcium (Lipitor) 40 mg GT HS [facility] Stop: 09/09/17 20:59 Last Admin: 07/12/17 20:37 Dose: 40 mg Bisacodyl (Dulcolax 10 Mg Supp) 10 mg RC Q72HR PRN PRN Reason: IF MOM INEFFECTIVE Stop: 09/10/17 07:15 Cholecalciferol (Vitamin D3) 1,000 iu GT DAILY [facility] Stop: 09/10/17 08:59 Last Admin: 07/13/17 10:16 Dose: 1,000 iu Docusate Sodium (Colace) 100 mg PO DAILY [facility] Stop: 09/10/17 08:59 Last Admin: 07/13/17 10:17 Dose: 100 mg Epoetin Aayush (Epogen) 10,000 units SUBQ MoWeFr [facility] Stop: 09/12/17 12:02 Folic Acid (Folate) 1 mg GT DAILY [facility] Stop: 09/09/17 08:59 Last Admin: 07/13/17 10:15 Dose: 1 mg Cefepime HCl 1 gm/ Sodium (Chloride) 50 mls @ 100 mls/hr IV Q12HR [facility] Stop: 09/11/17 20:59 Insulin Aspart (Novolog Insulin Sliding Scale) 0 units SUBQ Q6H [facility] PRN Reason: Protocol Stop: 09/09/17 18:29 Last Admin: 07/13/17 13:33 Dose: 6 units Lorazepam (Ativan) 0.5 mg GT Q6HR PRN; Protocol PRN Reason: Agitation Stop: 09/08/17 22:40 Last Admin: 07/13/17 10:16 Dose: 0.5 mg Lorazepam (Ativan) 0.5 mg GT Q6H PRN; Protocol PRN Reason: Anxiety Stop: 09/09/17 18:20 Mirtazapine (Remeron) 15 mg GT HS [facility] PRN Reason: Protocol Stop: 09/09/17 20:59 Last Admin: 07/12/17 20:43 Dose: 15 mg Mirtazapine (Remeron) 15 mg GT HS [facility] PRN Reason: Protocol Stop: 09/09/17 20:59 Miscellaneous (Vte Chemical Prophylaxis Screen/ Admission) 1 ea [facility] PRN PRN PRN Reason: PROTOCOL Stop: 09/09/17 16:54 Ondansetron HCl (Zofran Odt) 4 mg PO Q6HR PRN PRN Reason: Nausea / Vomiting Stop: 09/09/17 18:20 Last Admin: 07/11/17 19:34 Dose: 4 mg Pantoprazole Sodium (Protonix) 40 mg GT DAILY [facility] Stop: 09/09/17 08:59 Last Admin: 07/13/17 10:17 Dose: 40 mg Potassium Chloride (Klor-Con) 10 meq PO DAILY [facility] Stop: 09/12/17 08:59 Potassium Phos/Sodium Phos (Neutra-Phos) 1.25 gm PO BID [facility] Stop: 09/11/17 16:59 Simethicone (Mylicon) 80 mg GT Q6H PRN PRN Reason: GAS PAIN Stop: 09/09/17 18:20 Temazepam (Restoril) 15 mg GT HS PRN PRN Reason: Insomnia Stop: 09/08/17 22:32 Last Admin: 07/12/17 00:35 Dose: 15 mg Vitamin B Complex/Vit C/Folic Acid (Vitamin B Complex W/Vitamin C) 1 tab GT DAILY [facility] Stop: 09/10/17 08:59 Last Admin: 07/13/17 10:16 Dose: 1 tab Zinc Sulfate (Zinc Sulfate) 220 mg GT DAILY [facility] Stop: 09/10/17 08:59 Last Admin: 07/13/17 10:16 Dose: 220 mg General: no acute distress, well developed, well nourished HEENT: atraumatic, normocephalic, PERRLA, EOMI Neck: supple, tracheostomy Cardiovascular: S1S2, regular Lungs: clear to percussion, crackles Abdomen: soft, no tender, no distended, no mass Extremities: no cyanosis, no clubbing, no edema Neurological: awake, alert - Procedures Procedures: Procedures Procedure Code Date PERFORMANCE OF URINARY FILTRATION, <6 HRS/DAY [id number] 06/29/17 TRANSFUSE NONAUT RED BLOOD CELLS IN PERIPH VEIN, [facility] 61340E3 06/29/17 Infectious Disease Assmt/Plan - Problem List Patient Problems: All Active Problems 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 Pneumonia. 2. Congestive heart failure. 3. Chronic kidney disease, history of hemodialysis. 4. Diabetes mellitus type 2. - Plan Plan: cpm.
[2017-07-13] MEDS ORDERED: Sodium Phos / Potassium Phos 1.25 GM PACK PO SCH (17:00)
[2017-07-13] MEDS: Cefepime 1 GM in Sodium Chloride 0.9% 50 ML IV SCH (21:42)
[2017-07-13] MEDS: Atorvastatin Calcium 10 MG TAB GT SCH (21:42)
[2017-07-13] MEDS ORDERED: D5-0.45NS 1,000 ML IV SCH (23:05)
--- NOTE | 2017-07-13 23:26 | Progress Notes ---
DATE: LOCATION: [facility] ICU bed #9. SUBJECTIVE: The patient had dialysis yesterday. The patient tolerated it well. PHYSICAL EXAMINATION: VITAL SIGNS: Today's the patient's blood pressure is 100/34, pulse 70, respirations 16, heart rate 100. Yesterday's intake 1845, ultrafiltration output 2000. HEART: Regular. LUNGS: Good air entry. ABDOMEN: Soft. EXTREMITIES: No edema. LABORATORY DATA: Today's lab, WBC 7.3, hemoglobin 8.7, platelet 271,000. Sodium 137, potassium 3.2, chloride 97, CO2 31.8, BUN 37, creatinine 2.1, blood sugar 181, phosphorus 1.4. Stool occult positive. ASSESSMENT: 1. Gastrointestinal bleeding. 2. Hypophosphatemia. 3. Chronic kidney disease 5 on chronic hemodialysis. 4. Diabetes mellitus. 5. Gastroesophageal reflux disease. 6. Respiratory failure. 7. Tracheostomy. 8. Hyponatremia, improving. PLAN: KCl one time today. GI follow up. Neutra-Phos NG tube. Discontinue phosphate binder if the patient is on. Labs in the morning. Discussed with nursing staff. JOB# [id number]
[2017-07-14] MEDS: INSULIN ASPART SLIDING SCALE 100 UNITS/ML UNIT SUBQ SCH ×4 (01:17→18:46)
[2017-07-14] MEDS: Albuterol/Ipratropium Neb 3 ML AERS HHN SCH ×4 (01:49→19:18)
[2017-07-14 05:03] LABS: ALB/GLOB RATIO 1.1 (1.0-1.8); ALBUMIN 3.3 gm/dL (3.7-5.3); ALKALINE PHOSPHATASE 238 U/L (34-104); ANION GAP 13.5 (7.0-16.0); BILIRUBIN,TOTAL 0.3 mg/dL (0.3-1.0); BUN - UREA NITROGEN 54 mg/dL (7-25); CALCIUM SERUM 8.4 mg/dL (8.6-10.3); CARBON DIOXIDE 31.2 mEq/L (21.0-31.0); CHLORIDE 96 mEq/L (98-107); GLUCOSE 163 mg/dL (70-105); PHOSPHOROUS 1.6 mg/dL (2.5-5.0); POTASSIUM SERUM 3.7 mEq/L (3.5-5.1); SGOT 129 U/L (13-39); SGPT/ALT 58 U/L (7-52); SODIUM SERUM 137 mEq/L (136-145); TOTAL PROTEIN,SERUM 6.3 gm/dL (6.0-8.3)
[2017-07-14 08:33] LABS: INR 1.03 (0.5-1.4); PROTHROMBIN TIME (TEST) 10.7 SECONDS (9.5-11.5)
[2017-07-14] MEDS ORDERED: Probiotic Screen MC PRN (08:45)
[2017-07-14] MEDS: Cefepime 1 GM in Sodium Chloride 0.9% 50 ML IV SCH ×2 (09:06→21:01)
[2017-07-14] MEDS: Docusate Sodium 100 mg/10 mL UD PO SCH (09:06)
[2017-07-14] MEDS: Vitamin B Complex w/Vitamin C Tab GT SCH (09:06)
[2017-07-14] MEDS: Ascorbic Acid 500 mg/5 mL UDC GT SCH (09:06)
[2017-07-14] MEDS: Pantoprazole 40 mg/Packet GT SCH (09:06)
[2017-07-14] MEDS: Lactobacillus Rhamnosus GG 15 Billion CFU CAP.SPRINK PO SCH (09:07)
[2017-07-14] MEDS: Potassium Chloride 10 mEq ER Tab PO SCH (09:07)
--- NOTE | 2017-07-14 09:39 | General Progress Note ---
Subjective - Review of Systems Events since last encounter: no change Objective - Results Result Diagrams: 07/13/17 04:09 07/14/17 04:20 Recent Labs: Laboratory Last Values WBC 7.3 Th/cmm (4.8-10.8) 07/13/17 04:09 RBC 2.61 Mil/cmm (3.80-5.20) L 07/13/17 04:09 Hgb 8.7 gm/dL (12-16) L 07/13/17 04:09 Hct 26.1 % (41.0-60) L 07/13/17 04:09 MCV 100.1 fl (81-100) H 07/13/17 04:09 MCH 33.4 pg (27.0-31.0) H 07/13/17 04:09 MCHC Differential 33.3 pg (28.0-36.0) 07/13/17 04:09 RDW 18.9 % (11.5-20.0) 07/13/17 04:09 Plt Count 271 Th/cmm (150-400) 07/13/17 04:09 MPV 10.5 fl 07/13/17 04:09 Neutrophils % 73.7 % (40.0-80.0) 07/12/17 03:59 Band Neutrophils % 3 % (0-10) 07/13/17 04:09 Lymphocytes % 12.2 % (20.0-50.0) L 07/12/17 03:59 Monocytes % 11.8 % (2.0-10.0) H 07/12/17 03:59 Eosinophils % 2.3 % (0.0-5.0) 07/12/17 03:59 Basophils % 0.0 % (0.0-2.0) 07/12/17 03:59 Neutrophils (Manual) 78 % (40-80) 07/13/17 04:09 Lymphocytes 10 % (20-50) L 07/13/17 04:09 Monocytes 5 % (2-10) 07/13/17 04:09 Eosinophils 3 % (0-5) 07/13/17 04:09 Atypical Lymphocytes 1 % 07/13/17 04:09 Hypochromia 1+ 07/13/17 04:09 Platelet Estimate ADEQUATE (NORMAL) 07/13/17 04:09 Polychromasia 1+ 07/10/17 22:35 Anisocytosis 1+ 07/13/17 04:09 Macrocytosis 1+ 07/13/17 04:09 Tear Drop Cells 1+ 07/10/17 22:35 PT 10.7 SECONDS (9.5-11.5) 07/14/17 04:20 INR 1.03 (0.5-1.4) 07/14/17 04:20 PTT (Actin FS) 25.7 SECONDS (26.0-38.0) L 07/14/17 04:20 Sodium 137 mEq/L (136-145) 07/14/17 04:20 Potassium 3.7 mEq/L (3.5-5.1) 07/14/17 04:20 Chloride 96 mEq/L (98-107) L 07/14/17 04:20 Carbon Dioxide 31.2 mEq/L (21.0-31.0) H 07/14/17 04:20 Anion Gap 13.5 (7.0-16.0) 07/14/17 04:20 BUN 54 mg/dL (7-25) H 07/14/17 04:20 Creatinine 3.0 mg/dL (0.6-1.2) H 07/14/17 04:20 Est GFR ( Amer) TNP 07/14/17 04:20 Est GFR (Non-Af Amer) TNP 07/14/17 04:20 BUN/Creatinine Ratio 18.0 07/14/17 04:20 Glucose 163 mg/dL (70-105) H 07/14/17 04:20 POC Glucose 181 MG/DL (70 - 105) H 07/14/17 01:04 Calcium 8.4 mg/dL (8.6-10.3) L 07/14/17 04:20 Phosphorus 1.6 mg/dL (2.5-5.0) L 07/14/17 04:20 Magnesium 2.2 mg/dL (1.9-2.7) 07/12/17 03:59 Total Bilirubin 0.3 mg/dL (0.3-1.0) 07/14/17 04:20 AST 129 U/L (13-39) H 07/14/17 04:20 ALT 58 U/L (7-52) H 07/14/17 04:20 Alkaline Phosphatase 238 U/L (34-104) H 07/14/17 04:20 Total Protein 6.3 gm/dL (6.0-8.3) 07/14/17 04:20 Albumin 3.3 gm/dL (3.7-5.3) L 07/14/17 04:20 Globulin 3.0 gm/dL 07/14/17 04:20 Albumin/Globulin Ratio 1.1 (1.0-1.8) 07/14/17 04:20 Triglycerides 73 mg/dL (<150) 07/10/17 22:35 Cholesterol 62 mg/dL (<200) 07/10/17 22:35 LDL Cholesterol Direct 29 mg/dL (75-193) L 07/10/17 22:35 HDL Cholesterol 32 mg/dL (23-92) 07/10/17 22:35 TSH 2.27 uIU/ml (0.34-5.60) 07/10/17 22:35 Stool Occult Blood POSITIVE (NEGATIVE) H 07/12/17 21:00 Hepatitis A IgM Ab Negative (Negative) 07/11/17 00:00 Hep Bs Antigen Negative (Negative) 07/11/17 00:00 Hep B Core IgM Ab Negative (Negative) 07/11/17 00:00 Hepatitis C Antibody 0.2 s/co ratio (0.0-0.9) 07/11/17 00:00 Blood Type A POSITIVE 07/10/17 23:30 Antibody Screen NEGATIVE 07/10/17 23:30 Crossmatch See Detail 07/10/17 23:30 - Physical Exam Vitals and I&O: Vital Signs Temp 98 F 07/14/17 00:00 Pulse 68 07/14/17 06:48 Resp 15 07/14/17 08:15 BP 93/35 07/14/17 06:00 Pulse Ox 100 07/14/17 06:48 Intake & Output 07/13/17 07/14/17 07/14/17 18:59 06:59 18:59 Intake Total 1040 4410 307.5 Output Total 0 Balance 1040 4410 307.5 Weight (lbs) 64.864 kg 68.492 kg Intake: Intake, IV Amount 30 307.5 Cefepime 1 gm In Sodium 30 0 Chloride 0.9% 50 ml @ 100 mls/hr IV Q12HR [facility] Rx#: [id number] D5-0.45NS 1,000 ml @ 50 307.5 mls/hr IV .Q20H [facility] Rx#: [id number] Tube Feeding 540 280 Other 500 4100 Output: Urine 0 Other: # Bowel Movements 1 4 Stool Characteristics Soft Soft Brown Brown Active Medications: Current Medications Acetaminophen (Tylenol 650mg/20.3ml Suspension) 650 mg GT DAILY [facility] Stop: 09/10/17 08:59 Last Admin: 07/14/17 09:06 Dose: Not Given Acetaminophen (Tylenol 650mg/20.3ml Suspension) 650 mg GT Q4H PRN PRN Reason: TEMP >100 OR PAIN Last Admin: 07/14/17 00:53 Dose: 650 mg Albuterol/Ipratropium (Duoneb Neb) 3 ml HHN Q6HRT [facility] Stop: 09/09/17 18:59 Last Admin: 07/14/17 06:39 Dose: 3 ml Ascorbic Acid (Vitamin C) 500 mg GT DAILY [facility] Stop: 09/10/17 08:59 Last Admin: 07/14/17 09:06 Dose: Not Given Atorvastatin Calcium (Lipitor) 40 mg GT HS [facility] Stop: 09/09/17 20:59 Last Admin: 07/13/17 21:42 Dose: 40 mg Bisacodyl (Dulcolax 10 Mg Supp) 10 mg RC Q72HR PRN PRN Reason: IF MOM INEFFECTIVE Stop: 09/10/17 07:15 Cholecalciferol (Vitamin D3) 1,000 iu GT DAILY [facility] Stop: 09/10/17 08:59 Last Admin: 07/14/17 09:06 Dose: Not Given Docusate Sodium (Colace) 100 mg PO DAILY [facility] Stop: 09/10/17 08:59 Last Admin: 07/14/17 09:06 Dose: Not Given Epoetin Aayush (Epogen) 10,000 units SUBQ MoWeFr [facility] Stop: 09/12/17 12:02 Folic Acid (Folate) 1 mg GT DAILY [facility] Stop: 09/09/17 08:59 Last Admin: 07/14/17 09:06 Dose: Not Given Cefepime HCl 1 gm/ Sodium (Chloride) 50 mls @ 100 mls/hr IV Q12HR [facility] Stop: 09/11/17 20:59 Last Admin: 07/14/17 09:06 Dose: 100 mls/hr Dextrose/Sodium Chloride (D5-0.45ns) 1,000 mls @ 50 mls/hr IV .Q20H [facility] Stop: 09/11/17 23:04 Last Infusion: 07/14/17 07:00 Dose: 50 mls/hr Insulin Aspart (Novolog Insulin Sliding Scale) 0 units SUBQ Q6H [facility] PRN Reason: Protocol Stop: 09/09/17 18:29 Last Admin: 07/14/17 06:41 Dose: 2 units Lactobacillus Rhamnosus (Culturelle 15b) 1 each PO DAILY [facility] Stop: 09/12/17 08:59 Last Admin: 07/14/17 09:07 Dose: Not Given Lorazepam (Ativan) 0.5 mg GT Q6HR PRN; Protocol PRN Reason: Agitation Stop: 09/08/17 22:40 Last Admin: 07/13/17 18:04 Dose: 0.5 mg Lorazepam (Ativan) 0.5 mg GT Q6H PRN; Protocol PRN Reason: Anxiety Stop: 09/09/17 18:20 Lorazepam (Ativan) 1 mg IVP Q4HR PRN; Protocol PRN Reason: Agitation Stop: 07/23/17 22:58 Last Admin: 07/14/17 00:52 Dose: 1 mg Mirtazapine (Remeron) 15 mg GT HS [facility] PRN Reason: Protocol Stop: 09/09/17 20:59 Last Admin: 07/13/17 21:25 Dose: 15 mg Mirtazapine (Remeron) 15 mg GT HS [facility] PRN Reason: Protocol Stop: 09/09/17 20:59 Miscellaneous (Vte Chemical Prophylaxis Screen/ Admission) 1 ea PRN PRN PRN Reason: PROTOCOL Stop: 09/09/17 16:54 Miscellaneous (Probiotic Screen) 1 ea PRN PRN PRN Reason: PROTOCOL Stop: 09/12/17 08:44 Ondansetron HCl (Zofran Odt) 4 mg PO Q6HR PRN PRN Reason: Nausea / Vomiting Stop: 09/09/17 18:20 Last Admin: 07/11/17 19:34 Dose: 4 mg Pantoprazole Sodium (Protonix) 40 mg GT DAILY [facility] Stop: 09/09/17 08:59 Last Admin: 07/14/17 09:06 Dose: Not Given Potassium Chloride (Klor-Con) 10 meq PO DAILY [facility] Stop: 09/12/17 08:59 Last Admin: 07/14/17 09:07 Dose: Not Given Potassium Phosphate (K Phos) 1,000 mg GT BID [facility] Stop: 09/11/17 17:29 Last Admin: 07/14/17 09:06 Dose: Not Given Simethicone (Mylicon) 80 mg GT Q6H PRN PRN Reason: GAS PAIN Stop: 09/09/17 18:20 Temazepam (Restoril) 15 mg GT HS PRN PRN Reason: Insomnia Stop: 09/08/17 22:32 Last Admin: 07/14/17 01:01 Dose: 15 mg Vitamin B Complex/Vit C/Folic Acid (Vitamin B Complex W/Vitamin C) 1 tab GT DAILY [facility] Stop: 09/10/17 08:59 Last Admin: 07/14/17 09:06 Dose: Not Given Zinc Sulfate (Zinc Sulfate) 220 mg GT DAILY [facility] Stop: 09/10/17 08:59 Last Admin: 07/14/17 09:06 Dose: Not Given - Procedures Procedures: Procedures Procedure Code Date BLOOD TRANSFUSION SERVICE 54324 07/10/17 PERFORMANCE OF URINARY FILTRATION, <6 HRS/DAY [id number] 06/29/17 TRANSFUSE NONAUT RED BLOOD CELLS IN PERIPH VEIN, [facility] [id number] 07/10/17 Assessment/Plan - Problem List Patient Problems: All Active Problems 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
[2017-07-14] MEDS ORDERED: Epoetin Alfa 20000 Units/mL Vial SUBQ SCH (12:03)
--- NOTE | 2017-07-14 14:47 | General Progress Note ---
Subjective - Review of Systems Service Date: 07/14/17 Subjective: alert, comfortable Objective - Results Result Diagrams: 07/13/17 04:09 07/14/17 04:20 Recent Labs: Laboratory Last Values WBC 7.3 Th/cmm (4.8-10.8) 07/13/17 04:09 RBC 2.61 Mil/cmm (3.80-5.20) L 07/13/17 04:09 Hgb 8.7 gm/dL (12-16) L 07/13/17 04:09 Hct 26.1 % (41.0-60) L 07/13/17 04:09 MCV 100.1 fl (81-100) H 07/13/17 04:09 MCH 33.4 pg (27.0-31.0) H 07/13/17 04:09 MCHC Differential 33.3 pg (28.0-36.0) 07/13/17 04:09 RDW 18.9 % (11.5-20.0) 07/13/17 04:09 Plt Count 271 Th/cmm (150-400) 07/13/17 04:09 MPV 10.5 fl 07/13/17 04:09 Neutrophils % 73.7 % (40.0-80.0) 07/12/17 03:59 Band Neutrophils % 3 % (0-10) 07/13/17 04:09 Lymphocytes % 12.2 % (20.0-50.0) L 07/12/17 03:59 Monocytes % 11.8 % (2.0-10.0) H 07/12/17 03:59 Eosinophils % 2.3 % (0.0-5.0) 07/12/17 03:59 Basophils % 0.0 % (0.0-2.0) 07/12/17 03:59 Neutrophils (Manual) 78 % (40-80) 07/13/17 04:09 Lymphocytes 10 % (20-50) L 07/13/17 04:09 Monocytes 5 % (2-10) 07/13/17 04:09 Eosinophils 3 % (0-5) 07/13/17 04:09 Atypical Lymphocytes 1 % 07/13/17 04:09 Hypochromia 1+ 07/13/17 04:09 Platelet Estimate ADEQUATE (NORMAL) 07/13/17 04:09 Polychromasia 1+ 07/10/17 22:35 Anisocytosis 1+ 07/13/17 04:09 Macrocytosis 1+ 07/13/17 04:09 Tear Drop Cells 1+ 07/10/17 22:35 PT 10.7 SECONDS (9.5-11.5) 07/14/17 04:20 INR 1.03 (0.5-1.4) 07/14/17 04:20 PTT (Actin FS) 25.7 SECONDS (26.0-38.0) L 07/14/17 04:20 Sodium 137 mEq/L (136-145) 07/14/17 04:20 Potassium 3.7 mEq/L (3.5-5.1) 07/14/17 04:20 Chloride 96 mEq/L (98-107) L 07/14/17 04:20 Carbon Dioxide 31.2 mEq/L (21.0-31.0) H 07/14/17 04:20 Anion Gap 13.5 (7.0-16.0) 07/14/17 04:20 BUN 54 mg/dL (7-25) H 07/14/17 04:20 Creatinine 3.0 mg/dL (0.6-1.2) H 07/14/17 04:20 Est GFR ( Amer) TNP 07/14/17 04:20 Est GFR (Non-Af Amer) TNP 07/14/17 04:20 BUN/Creatinine Ratio 18.0 07/14/17 04:20 Glucose 163 mg/dL (70-105) H 07/14/17 04:20 POC Glucose 163 MG/DL (70 - 105) H 07/14/17 12:46 Calcium 8.4 mg/dL (8.6-10.3) L 07/14/17 04:20 Phosphorus 1.6 mg/dL (2.5-5.0) L 07/14/17 04:20 Magnesium 2.2 mg/dL (1.9-2.7) 07/12/17 03:59 Total Bilirubin 0.3 mg/dL (0.3-1.0) 07/14/17 04:20 AST 129 U/L (13-39) H 07/14/17 04:20 ALT 58 U/L (7-52) H 07/14/17 04:20 Alkaline Phosphatase 238 U/L (34-104) H 07/14/17 04:20 Total Protein 6.3 gm/dL (6.0-8.3) 07/14/17 04:20 Albumin 3.3 gm/dL (3.7-5.3) L 07/14/17 04:20 Globulin 3.0 gm/dL 07/14/17 04:20 Albumin/Globulin Ratio 1.1 (1.0-1.8) 07/14/17 04:20 Triglycerides 73 mg/dL (<150) 07/10/17 22:35 Cholesterol 62 mg/dL (<200) 07/10/17 22:35 LDL Cholesterol Direct 29 mg/dL (75-193) L 07/10/17 22:35 HDL Cholesterol 32 mg/dL (23-92) 07/10/17 22:35 TSH 2.27 uIU/ml (0.34-5.60) 07/10/17 22:35 Stool Occult Blood POSITIVE (NEGATIVE) H 07/12/17 21:00 Hepatitis A IgM Ab Negative (Negative) 07/11/17 00:00 Hep Bs Antigen Negative (Negative) 07/11/17 00:00 Hep B Core IgM Ab Negative (Negative) 07/11/17 00:00 Hepatitis C Antibody 0.2 s/co ratio (0.0-0.9) 07/11/17 00:00 Blood Type A POSITIVE 07/10/17 23:30 Antibody Screen NEGATIVE 07/10/17 23:30 Crossmatch See Detail 07/10/17 23:30 - Physical Exam Vitals and I&O: Vital Signs Temp 96.6 F 07/14/17 08:00 Pulse 77 07/14/17 12:45 Resp 13 07/14/17 12:45 BP 134/37 07/14/17 10:00 Pulse Ox 100 07/14/17 12:45 Intake & Output 07/13/17 07/14/17 07/14/17 18:59 06:59 18:59 Intake Total 1040 4410 357.5 Output Total 0 Balance 1040 4410 357.5 Weight (lbs) 64.864 kg 68.492 kg Intake: Intake, IV Amount 30 357.5 Cefepime 1 gm In Sodium 30 50 Chloride 0.9% 50 ml @ 100 mls/hr IV Q12HR [facility] Rx#: [id number] D5-0.45NS 1,000 ml @ 50 307.5 mls/hr IV .Q20H [facility] Rx#: [id number] Tube Feeding 540 280 Other 500 4100 Output: Urine 0 Other: # Bowel Movements 1 4 Stool Characteristics Soft Soft Brown Brown Active Medications: Current Medications Acetaminophen (Tylenol 650mg/20.3ml Suspension) 650 mg GT DAILY [facility] Stop: 09/10/17 08:59 Last Admin: 07/14/17 09:06 Dose: Not Given Acetaminophen (Tylenol 650mg/20.3ml Suspension) 650 mg GT Q4H PRN PRN Reason: TEMP >100 OR PAIN Last Admin: 07/14/17 00:53 Dose: 650 mg Albuterol/Ipratropium (Duoneb Neb) 3 ml HHN Q6HRT [facility] Stop: 09/09/17 18:59 Last Admin: 07/14/17 12:38 Dose: 3 ml Ascorbic Acid (Vitamin C) 500 mg GT DAILY [facility] Stop: 09/10/17 08:59 Last Admin: 07/14/17 09:06 Dose: Not Given Atorvastatin Calcium (Lipitor) 40 mg GT HS [facility] Stop: 09/09/17 20:59 Last Admin: 07/13/17 21:42 Dose: 40 mg Bisacodyl (Dulcolax 10 Mg Supp) 10 mg RC Q72HR PRN PRN Reason: IF MOM INEFFECTIVE Stop: 09/10/17 07:15 Cholecalciferol (Vitamin D3) 1,000 iu GT DAILY [facility] Stop: 09/10/17 08:59 Last Admin: 07/14/17 09:06 Dose: Not Given Docusate Sodium (Colace) 100 mg PO DAILY [facility] Stop: 09/10/17 08:59 Last Admin: 07/14/17 09:06 Dose: Not Given Epoetin Aayush (Epogen) 10,000 units SUBQ MoWeFr [facility] Stop: 09/12/17 12:02 Folic Acid (Folate) 1 mg GT DAILY [facility] Stop: 09/09/17 08:59 Last Admin: 07/14/17 09:06 Dose: Not Given Cefepime HCl 1 gm/ Sodium (Chloride) 50 mls @ 100 mls/hr IV Q12HR [facility] Stop: 09/11/17 20:59 Last Infusion: 07/14/17 09:45 Dose: Infused Dextrose/Sodium Chloride (D5-0.45ns) 1,000 mls @ 50 mls/hr IV .Q20H [facility] Stop: 09/11/17 23:04 Last Infusion: 07/14/17 07:00 Dose: 50 mls/hr Insulin Aspart (Novolog Insulin Sliding Scale) 0 units SUBQ Q6H [facility] PRN Reason: Protocol Stop: 09/09/17 18:29 Last Admin: 07/14/17 06:41 Dose: 2 units Lactobacillus Rhamnosus (Culturelle 15b) 1 each PO DAILY [facility] Stop: 09/12/17 08:59 Last Admin: 07/14/17 09:07 Dose: Not Given Lorazepam (Ativan) 0.5 mg GT Q6HR PRN; Protocol PRN Reason: Agitation Stop: 09/08/17 22:40 Last Admin: 07/13/17 18:04 Dose: 0.5 mg Lorazepam (Ativan) 0.5 mg GT Q6H PRN; Protocol PRN Reason: Anxiety Stop: 09/09/17 18:20 Lorazepam (Ativan) 1 mg IVP Q4HR PRN; Protocol PRN Reason: Agitation Stop: 07/23/17 22:58 Last Admin: 07/14/17 10:06 Dose: 1 mg Mirtazapine (Remeron) 15 mg GT HS [facility] PRN Reason: Protocol Stop: 09/09/17 20:59 Last Admin: 07/13/17 21:25 Dose: 15 mg Mirtazapine (Remeron) 15 mg GT HS [facility] PRN Reason: Protocol Stop: 09/09/17 20:59 Miscellaneous (Vte Chemical Prophylaxis Screen/ Admission) 1 ea MC PRN PRN PRN Reason: PROTOCOL Stop: 09/09/17 16:54 Miscellaneous (Probiotic Screen) 1 ea MC PRN PRN PRN Reason: PROTOCOL Stop: 09/12/17 08:44 Ondansetron HCl (Zofran Odt) 4 mg PO Q6HR PRN PRN Reason: Nausea / Vomiting Stop: 09/09/17 18:20 Last Admin: 07/11/17 19:34 Dose: 4 mg Pantoprazole Sodium (Protonix) 40 mg GT DAILY [facility] Stop: 09/09/17 08:59 Last Admin: 07/14/17 09:06 Dose: Not Given Potassium Chloride (Klor-Con) 10 meq PO DAILY [facility] Stop: 09/12/17 08:59 Last Admin: 07/14/17 09:07 Dose: Not Given Potassium Phosphate (K Phos) 1,000 mg GT BID [facility] Stop: 09/11/17 17:29 Last Admin: 07/14/17 09:06 Dose: Not Given Simethicone (Mylicon) 80 mg GT Q6H PRN PRN Reason: GAS PAIN Stop: 09/09/17 18:20 Temazepam (Restoril) 15 mg GT HS PRN PRN Reason: Insomnia Stop: 09/08/17 22:32 Last Admin: 07/14/17 01:01 Dose: 15 mg Vitamin B Complex/Vit C/Folic Acid (Vitamin B Complex W/Vitamin C) 1 tab GT DAILY [facility] Stop: 09/10/17 08:59 Last Admin: 07/14/17 09:06 Dose: Not Given Zinc Sulfate (Zinc Sulfate) 220 mg GT DAILY [facility] Stop: 09/10/17 08:59 Last Admin: 07/14/17 09:06 Dose: Not Given General: Alert, No acute distress HEENT: Atraumatic, PERRLA, EOMI Neck: Supple, +2 carotid pulse wo bruit Cardiovascular: Regular rate, Normal S1, Normal S2 Lungs: Other (rhonchi) Abdomen: Bowel sounds, Soft Extremities: no Edema Neurological: Sensation intact Skin: no Rash Psych/Mental Status: Mood NL - Procedures Procedures: Procedures Procedure Code Date BLOOD TRANSFUSION SERVICE 90136 07/10/17 PERFORMANCE OF URINARY FILTRATION, <6 HRS/DAY [id number] 06/29/17 TRANSFUSE NONAUT RED BLOOD CELLS IN PERIPH VEIN, PERC 84382V1 07/10/17 Assessment/Plan - Problem List Patient Problems: All Active Problems 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 - Assessment Assessment: ESRD on HD Decomp CHF Severe Anemia 2nd GI bleed on CKD Chronic Resp Failure on T piece Type 2 DM Ess HTN - Plan Plan: Lab - Result Diagrams 07/13/17 04:09 07/14/17 04:20 Current Medications Acetaminophen (Tylenol 650mg/20.3ml Suspension) 650 mg GT DAILY [facility] Stop: 09/10/17 08:59 Last Admin: 07/14/17 09:06 Dose: Not Given Acetaminophen (Tylenol 650mg/20.3ml Suspension) 650 mg GT Q4H PRN PRN Reason: TEMP >100 OR PAIN Last Admin: 07/14/17 00:53 Dose: 650 mg Albuterol/Ipratropium (Duoneb Neb) 3 ml HHN Q6HRT [facility] Stop: 09/09/17 18:59 Last Admin: 07/14/17 12:38 Dose: 3 ml Ascorbic Acid (Vitamin C) 500 mg GT DAILY [facility] Stop: 09/10/17 08:59 Last Admin: 07/14/17 09:06 Dose: Not Given Atorvastatin Calcium (Lipitor) 40 mg GT HS [facility] Stop: 09/09/17 20:59 Last Admin: 07/13/17 21:42 Dose: 40 mg Bisacodyl (Dulcolax 10 Mg Supp) 10 mg RC Q72HR PRN PRN Reason: IF MOM INEFFECTIVE Stop: 09/10/17 07:15 Cholecalciferol (Vitamin D3) 1,000 iu GT DAILY [facility] Stop: 09/10/17 08:59 Last Admin: 07/14/17 09:06 Dose: Not Given Docusate Sodium (Colace) 100 mg PO DAILY [facility] Stop: 09/10/17 08:59 Last Admin: 07/14/17 09:06 Dose: Not Given Epoetin Aayush (Epogen) 10,000 units SUBQ MoWeFr [facility] Stop: 09/12/17 12:02 Folic Acid (Folate) 1 mg GT DAILY [facility] Stop: 09/09/17 08:59 Last Admin: 07/14/17 09:06 Dose: Not Given Cefepime HCl 1 gm/ Sodium (Chloride) 50 mls @ 100 mls/hr IV Q12HR [facility] Stop: 09/11/17 20:59 Last Infusion: 07/14/17 09:45 Dose: Infused Dextrose/Sodium Chloride (D5-0.45ns) 1,000 mls @ 50 mls/hr IV .Q20H [facility] Stop: 09/11/17 23:04 Last Infusion: 07/14/17 07:00 Dose: 50 mls/hr Insulin Aspart (Novolog Insulin Sliding Scale) 0 units SUBQ Q6H [facility] PRN Reason: Protocol Stop: 09/09/17 18:29 Last Admin: 07/14/17 06:41 Dose: 2 units Lactobacillus Rhamnosus (Culturelle 15b) 1 each PO DAILY [facility] Stop: 09/12/17 08:59 Last Admin: 07/14/17 09:07 Dose: Not Given Lorazepam (Ativan) 0.5 mg GT Q6HR PRN; Protocol PRN Reason: Agitation Stop: 09/08/17 22:40 Last Admin: 07/13/17 18:04 Dose: 0.5 mg Lorazepam (Ativan) 0.5 mg GT Q6H PRN; Protocol PRN Reason: Anxiety Stop: 09/09/17 18:20 Lorazepam (Ativan) 1 mg IVP Q4HR PRN; Protocol PRN Reason: Agitation Stop: 07/23/17 22:58 Last Admin: 07/14/17 10:06 Dose: 1 mg Mirtazapine (Remeron) 15 mg GT HS [facility] PRN Reason: Protocol Stop: 09/09/17 20:59 Last Admin: 07/13/17 21:25 Dose: 15 mg Mirtazapine (Remeron) 15 mg GT HS [facility] PRN Reason: Protocol Stop: 09/09/17 20:59 Miscellaneous (Vte Chemical Prophylaxis Screen/ Admission) 1 ea PRN PRN PRN Reason: PROTOCOL Stop: 09/09/17 16:54 Miscellaneous (Probiotic Screen) 1 ea PRN PRN PRN Reason: PROTOCOL Stop: 09/12/17 08:44 Ondansetron HCl (Zofran Odt) 4 mg PO Q6HR PRN PRN Reason: Nausea / Vomiting Stop: 09/09/17 18:20 Last Admin: 07/11/17 19:34 Dose: 4 mg Pantoprazole Sodium (Protonix) 40 mg GT DAILY [facility] Stop: 09/09/17 08:59 Last Admin: 07/14/17 09:06 Dose: Not Given Potassium Chloride (Klor-Con) 10 meq PO DAILY [facility] Stop: 09/12/17 08:59 Last Admin: 07/14/17 09:07 Dose: Not Given Potassium Phosphate (K Phos) 1,000 mg GT BID [facility] Stop: 09/11/17 17:29 Last Admin: 07/14/17 09:06 Dose: Not Given Simethicone (Mylicon) 80 mg GT Q6H PRN PRN Reason: GAS PAIN Stop: 09/09/17 18:20 Temazepam (Restoril) 15 mg GT HS PRN PRN Reason: Insomnia Stop: 09/08/17 22:32 Last Admin: 07/14/17 01:01 Dose: 15 mg Vitamin B Complex/Vit C/Folic Acid (Vitamin B Complex W/Vitamin C) 1 tab GT DAILY [facility] Stop: 09/10/17 08:59 Last Admin: 07/14/17 09:06 Dose: Not Given Zinc Sulfate (Zinc Sulfate) 220 mg GT DAILY [facility] Stop: 09/10/17 08:59 Last Admin: 07/14/17 09:06 Dose: Not Given Lab - Result Diagrams 07/13/17 04:09 07/14/17 04:20 Schedule for HD in am For EGD today f/u cbc, electrolytes
[2017-07-14] MEDS: Atorvastatin Calcium 10 MG TAB GT SCH (21:01)
[2017-07-15] MEDS: INSULIN ASPART SLIDING SCALE 100 UNITS/ML UNIT SUBQ SCH ×4 (01:44→17:45)
[2017-07-15] MEDS: Albuterol/Ipratropium Neb 3 ML AERS HHN SCH ×4 (01:48→19:40)
[2017-07-15 05:59] LABS: EOSINOPHILE ABSOLUTE 0.3 Th/cmm (0.1-0.4); HEMATOCRIT 25.3 % (41.0-60); HEMOGLOBIN 8.4 gm/dL (12-16); MEAN CELL VOLUME 98.2 fl (81-100); MEAN CORPUSCULAR HEMOGLOBIN 32.7 pg (27.0-31.0); MEAN CORPUSCULAR HGB CONC 33.3 pg (28.0-36.0); NEUTROPHILE ABSOLUTE 3.8 Th/cmm (1.8-8.0); PLATELET COUNT 252 Th/cmm (150-400); RED BLOOD COUNT 2.58 Mil/cmm (3.80-5.20); RED CELL DISTRIBUTION WIDTH 18.3 % (11.5-20.0); WHITE BLOOD COUNT 6.1 Th/cmm (4.8-10.8)
[2017-07-15 06:09] LABS: FERRITIN 654 ng/mL (15-150); IRON LC 44 ug/dL (27-139); TIBC (LC) 199 ug/dL (250-450); UIBC 155 ug/dL (118-369)
[2017-07-15 06:20] LABS: ANION GAP 16.6 (7.0-16.0); BUN - UREA NITROGEN 59 mg/dL (7-25); CALCIUM SERUM 8.8 mg/dL (8.6-10.3); CARBON DIOXIDE 26.8 mEq/L (21.0-31.0); CHLORIDE 96 mEq/L (98-107); CREATININE - SERUM 3.8 mg/dL (0.6-1.2); GLUCOSE 136 mg/dL (70-105); PHOSPHOROUS 2.1 mg/dL (2.5-5.0); POTASSIUM SERUM 3.4 mEq/L (3.5-5.1); SODIUM SERUM 136 mEq/L (136-145)
--- NOTE | 2017-07-15 08:47 | Infectious Disease Prog Note ---
Infectious Disease Subjective - Review of Systems Service Date: 07/15/17 Subjective: no change. Infectious Disease Objective - Results Result Diagrams: 07/15/17 05:40 07/15/17 05:40 Recent Labs: Laboratory Last Values WBC 6.1 Th/cmm (4.8-10.8) 07/15/17 05:40 RBC 2.58 Mil/cmm (3.80-5.20) L 07/15/17 05:40 Hgb 8.4 gm/dL (12-16) L 07/15/17 05:40 Hct 25.3 % (41.0-60) L 07/15/17 05:40 MCV 98.2 fl (81-100) 07/15/17 05:40 MCH 32.7 pg (27.0-31.0) H 07/15/17 05:40 MCHC Differential 33.3 pg (28.0-36.0) 07/15/17 05:40 RDW 18.3 % (11.5-20.0) 07/15/17 05:40 Plt Count 252 Th/cmm (150-400) 07/15/17 05:40 MPV 10.0 fl 07/15/17 05:40 Neutrophils % 73.7 % (40.0-80.0) 07/12/17 03:59 Band Neutrophils % 3 % (0-10) 07/13/17 04:09 Lymphocytes % 12.2 % (20.0-50.0) L 07/12/17 03:59 Monocytes % 11.8 % (2.0-10.0) H 07/12/17 03:59 Eosinophils % 2.3 % (0.0-5.0) 07/12/17 03:59 Basophils % 0.0 % (0.0-2.0) 07/12/17 03:59 Neutrophils (Manual) 78 % (40-80) 07/13/17 04:09 Lymphocytes 10 % (20-50) L 07/13/17 04:09 Monocytes 5 % (2-10) 07/13/17 04:09 Eosinophils 3 % (0-5) 07/13/17 04:09 Atypical Lymphocytes 1 % 07/13/17 04:09 Hypochromia 1+ 07/13/17 04:09 Platelet Estimate ADEQUATE (NORMAL) 07/13/17 04:09 Polychromasia 1+ 07/10/17 22:35 Anisocytosis 1+ 07/13/17 04:09 Macrocytosis 1+ 07/13/17 04:09 Tear Drop Cells 1+ 07/10/17 22:35 PT 10.7 SECONDS (9.5-11.5) 07/14/17 04:20 INR 1.03 (0.5-1.4) 07/14/17 04:20 PTT (Actin FS) 25.7 SECONDS (26.0-38.0) L 07/14/17 04:20 Sodium 136 mEq/L (136-145) 07/15/17 05:40 Potassium 3.4 mEq/L (3.5-5.1) L 07/15/17 05:40 Chloride 96 mEq/L (98-107) L 07/15/17 05:40 Carbon Dioxide 26.8 mEq/L (21.0-31.0) 07/15/17 05:40 Anion Gap 16.6 (7.0-16.0) H 07/15/17 05:40 BUN 59 mg/dL (7-25) H 07/15/17 05:40 Creatinine 3.8 mg/dL (0.6-1.2) H 07/15/17 05:40 Est GFR ( Amer) TNP 07/15/17 05:40 Est GFR (Non-Af Amer) TNP 07/15/17 05:40 BUN/Creatinine Ratio 15.5 07/15/17 05:40 Glucose 136 mg/dL (70-105) H 07/15/17 05:40 POC Glucose 129 MG/DL (70 - 105) H 07/15/17 06:26 Calcium 8.8 mg/dL (8.6-10.3) 07/15/17 05:40 Phosphorus 2.1 mg/dL (2.5-5.0) L 07/15/17 05:40 Magnesium 2.2 mg/dL (1.9-2.7) 07/12/17 03:59 Iron 44 ug/dL (27-139) 07/12/17 03:59 TIBC 199 ug/dL (250-450) L 07/12/17 03:59 Iron Saturation 22 % (15-55) 07/12/17 03:59 Unsaturated IBC 155 ug/dL (118-369) 07/12/17 03:59 Ferritin 654 ng/mL (15-150) H 07/12/17 03:59 Total Bilirubin 0.3 mg/dL (0.3-1.0) 07/14/17 04:20 AST 129 U/L (13-39) H 07/14/17 04:20 ALT 58 U/L (7-52) H 07/14/17 04:20 Alkaline Phosphatase 238 U/L (34-104) H 07/14/17 04:20 Total Protein 6.3 gm/dL (6.0-8.3) 07/14/17 04:20 Albumin 3.3 gm/dL (3.7-5.3) L 07/14/17 04:20 Globulin 3.0 gm/dL 07/14/17 04:20 Albumin/Globulin Ratio 1.1 (1.0-1.8) 07/14/17 04:20 Triglycerides 73 mg/dL (<150) 07/10/17 22:35 Cholesterol 62 mg/dL (<200) 07/10/17 22:35 LDL Cholesterol Direct 29 mg/dL (75-193) L 07/10/17 22:35 HDL Cholesterol 32 mg/dL (23-92) 07/10/17 22:35 TSH 2.27 uIU/ml (0.34-5.60) 07/10/17 22:35 Stool Occult Blood POSITIVE (NEGATIVE) H 07/12/17 21:00 Hepatitis A IgM Ab Negative (Negative) 07/11/17 00:00 Hep Bs Antigen Negative (Negative) 07/11/17 00:00 Hep B Core IgM Ab Negative (Negative) 07/11/17 00:00 Hepatitis C Antibody 0.2 s/co ratio (0.0-0.9) 07/11/17 00:00 Blood Type A POSITIVE 07/10/17 23:30 Antibody Screen NEGATIVE 07/10/17 23:30 Crossmatch See Detail 07/10/17 23:30 - Physical Exam Vitals and I&O: Vital Signs Temp 97.7 F 07/15/17 04:00 Pulse 65 07/15/17 08:08 Resp 18 07/15/17 08:08 BP 109/49 07/15/17 04:00 Pulse Ox 100 07/15/17 08:08 Intake & Output 07/14/17 07/15/17 07/15/17 18:59 06:59 18:59 Intake Total 357.5 50 Balance 357.5 50 Weight (lbs) 68.492 kg 68.492 kg Intake: Intake, IV Amount 357.5 50 Cefepime 1 gm In Sodium 50 50 Chloride 0.9% 50 ml @ 100 mls/hr IV Q12HR [facility] Rx#: [id number] D5-0.45NS 1,000 ml @ 50 307.5 mls/hr IV .Q20H [facility] Rx#: [id number] Other: # Voids 1 1 # Bowel Movements 0 1 Active Medications: Current Medications Acetaminophen (Tylenol 650mg/20.3ml Suspension) 650 mg GT DAILY [facility] Stop: 09/10/17 08:59 Last Admin: 07/14/17 22:36 Dose: 650 mg Acetaminophen (Tylenol 650mg/20.3ml Suspension) 650 mg GT Q4H PRN PRN Reason: TEMP >100 OR PAIN Last Admin: 07/14/17 00:53 Dose: 650 mg Albuterol/Ipratropium (Duoneb Neb) 3 ml HHN Q6HRT [facility] Stop: 09/09/17 18:59 Last Admin: 07/15/17 08:04 Dose: 3 ml Ascorbic Acid (Vitamin C) 500 mg GT DAILY [facility] Stop: 09/10/17 08:59 Last Admin: 07/14/17 09:06 Dose: Not Given Atorvastatin Calcium (Lipitor) 40 mg GT HS [facility] Stop: 09/09/17 20:59 Last Admin: 07/14/17 21:01 Dose: 40 mg Bisacodyl (Dulcolax 10 Mg Supp) 10 mg RC Q72HR PRN PRN Reason: IF MOM INEFFECTIVE Stop: 09/10/17 07:15 Cholecalciferol (Vitamin D3) 1,000 iu GT DAILY [facility] Stop: 09/10/17 08:59 Last Admin: 07/14/17 09:06 Dose: Not Given Docusate Sodium (Colace) 100 mg PO DAILY [facility] Stop: 09/10/17 08:59 Last Admin: 07/14/17 09:06 Dose: Not Given Epoetin Aayush (Epogen) 10,000 units IVP TUTHSA [facility] Stop: 09/13/17 14:59 Folic Acid (Folate) 1 mg GT DAILY [facility] Stop: 09/09/17 08:59 Last Admin: 07/14/17 09:06 Dose: Not Given Cefepime HCl 1 gm/ Sodium (Chloride) 50 mls @ 100 mls/hr IV Q12HR [facility] Stop: 09/11/17 20:59 Last Infusion: 07/14/17 21:31 Dose: Infused Dextrose/Sodium Chloride (D5-0.45ns) 1,000 mls @ 50 mls/hr IV .Q20H [facility] Stop: 09/11/17 23:04 Last Infusion: 07/14/17 07:00 Dose: 50 mls/hr Insulin Aspart (Novolog Insulin Sliding Scale) 0 units SUBQ Q6H [facility] PRN Reason: Protocol Stop: 09/09/17 18:29 Last Admin: 07/15/17 06:52 Dose: Not Given Lactobacillus Rhamnosus (Culturelle 15b) 1 each PO DAILY [facility] Stop: 09/12/17 08:59 Last Admin: 07/14/17 09:07 Dose: Not Given Lorazepam (Ativan) 0.5 mg GT Q6HR PRN; Protocol PRN Reason: Agitation Stop: 09/08/17 22:40 Last Admin: 07/13/17 18:04 Dose: 0.5 mg Lorazepam (Ativan) 0.5 mg GT Q6H PRN; Protocol PRN Reason: Anxiety Stop: 09/09/17 18:20 Lorazepam (Ativan) 1 mg IVP Q4HR PRN; Protocol PRN Reason: Agitation Stop: 07/23/17 22:58 Last Admin: 07/15/17 05:55 Dose: 1 mg Mirtazapine (Remeron) 15 mg GT HS [facility] PRN Reason: Protocol Stop: 09/09/17 20:59 Last Admin: 07/14/17 21:01 Dose: 15 mg Mirtazapine (Remeron) 15 mg GT HS [facility] PRN Reason: Protocol Stop: 09/09/17 20:59 Miscellaneous (Vte Chemical Prophylaxis Screen/ Admission) 1 ea MC PRN PRN PRN Reason: PROTOCOL Stop: 09/09/17 16:54 Miscellaneous (Probiotic Screen) 1 ea MC PRN PRN PRN Reason: PROTOCOL Stop: 09/12/17 08:44 Ondansetron HCl (Zofran Odt) 4 mg PO Q6HR PRN PRN Reason: Nausea / Vomiting Stop: 09/09/17 18:20 Last Admin: 07/11/17 19:34 Dose: 4 mg Pantoprazole Sodium (Protonix) 40 mg GT DAILY [facility] Stop: 09/09/17 08:59 Last Admin: 07/14/17 09:06 Dose: Not Given Potassium Chloride (Klor-Con) 10 meq PO DAILY [facility] Stop: 09/12/17 08:59 Last Admin: 07/14/17 09:07 Dose: Not Given Potassium Phosphate (K Phos) 1,000 mg GT BID [facility] Stop: 09/11/17 17:29 Last Admin: 07/14/17 16:24 Dose: Not Given Simethicone (Mylicon) 80 mg GT Q6H PRN PRN Reason: GAS PAIN Stop: 09/09/17 18:20 Temazepam (Restoril) 15 mg GT HS PRN PRN Reason: Insomnia Stop: 09/08/17 22:32 Last Admin: 07/14/17 01:01 Dose: 15 mg Vitamin B Complex/Vit C/Folic Acid (Vitamin B Complex W/Vitamin C) 1 tab GT DAILY [facility] Stop: 09/10/17 08:59 Last Admin: 07/14/17 09:06 Dose: Not Given Zinc Sulfate (Zinc Sulfate) 220 mg GT DAILY [facility] Stop: 09/10/17 08:59 Last Admin: 07/14/17 09:06 Dose: Not Given General: no acute distress, well developed, well nourished HEENT: atraumatic, normocephalic, PERRLA, EOMI Neck: supple, no thyromegaly Cardiovascular: S1S2, regular Lungs: clear to auscultation bilaterally, clear to percussion Abdomen: soft, no tender, no distended Extremities: no cyanosis, no clubbing Neurological: awake, alert Skin: intact - Procedures Procedures: Procedures Procedure Code Date BLOOD TRANSFUSION SERVICE 61307 07/10/17 PERFORMANCE OF URINARY FILTRATION, <6 HRS/DAY [id number] 06/29/17 TRANSFUSE NONAUT RED BLOOD CELLS IN PERIPH VEIN, PERC [id number] 07/10/17 Infectious Disease Assmt/Plan - Problem List Patient Problems: All Active Problems 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 Pneumonia. 2. Congestive heart failure. 3. Chronic kidney disease, history of hemodialysis. 4. Diabetes mellitus type 2. - Plan Plan: cpm. Nutritional Asmnt/Malnutr-PDOC - Dietary Evaluation Malnutrition Findings (Please click <Entered> for more info): Nutritional Asmnt/Malnutrition Start: 07/14/17 16: 23 Text: Status: Complete Freq: Document 07/14/17 16:24 HEIDY (Rec: 07/14/17 16:49 [facility] Nutritional Asmnt/Malnutrition Patient General Information Nutritional Screening Moderate Risk Diagnosis acute and chronic renal failure, dehydration r/o sepsis Pertinent Medical Hx/Surgical Hx ESRD, DM, HTN, dysphagia, hyperlipidemia, ARF Subjective Information pt seen sleeping at time of visit. Spoke with RN, Pt was NPO today for possible EGD and coloneoscopy. Pt was on novasource Renal 45ml/hr continouous. Current Diet Order/ Nutrition Support NPO Pertinent Medications vitamin C, d5-0.45ns, colace, folate, novolog, culturelle, remeron, protonix, kcl, k phos , vitamin B complex with vit c and folic acid, zinc Pertinent Labs 2/5 Na 137, K 3.7, Cl 96, BUN 54, Cr 3.0, Glucose 163, POC 163-181 Nutritional Hx/Data Height 1.55 m Height (Calculated Centimeters) 154.9 Current Weight (lbs) 68.492 kg Weight (Calculated Kilograms) 68.5 Weight (Calculated Grams) 83532.4 [place] Body Weight 105 % [place] Body Weight 143 Body Mass Index (BMI) 28.5 Weight Status Overweight GI Symptoms GI Symptoms None Last BM 2/5 x 4 Difficult in: None Skin Integrity/Comment: reddened to sacrum Estimated Nutritional Goals BEE in Kcals: Adj wt of IBW Calories/Kcals/Kg 25-30 Kcals Calculated 5395-0881 Protein: Adj wt of IBW Protein g/k.2-1.4 considering pt on dialysis Protein Calculated 64-74 Fluid: ml 1325-1590ml (1ml/kcal) Nutritional Problem 1. Problem Problem altered nutrition related lab values Etiology hx of ESRD, DM Signs/Symptoms: BUN 54, Cr 3.0, Glucose 163, POC 163-181 Malnutrition Alert Protein-Calorie Malnutrition N/A Is there a minimum of two criteria No selected? Query Text:Check all the applicable criteria. A minimum of two criteria are recommended for diagnosis of either severe or non-severe malnutrition. Intervention/Recommendation Comments 1. Recommend resume TF Novasource Renal at 40ml/hr x 20hr. This will provide 1600kcal, 72g protein and 574ml free water, meeting 100% of nutritional needs. 2. Monitor TF rate, tolerance, wt weekly, skin integrity and labs 3. F/U as high risk in 2-3 days, 07/16-07/17 Expected Outcomes/Goals Expected Outcomes/Goals 1. Pt to meet at least 75% of nutritional needs via nutrition support with tolerance 2. Wt stability, skin to remain intact, labs to approach WNL.
--- NOTE | 2017-07-15 08:51 | Diagnostic Imaging Report ---
Exam: Portable chest x-ray HISTORY: Shortness of breath. Findings: Portable examination of the chest at 0837 hours reviewed compatible prior study for thousand 18 demonstrates cardiomegaly with superimposed bilateral pneumonia and effusions. Mediastinal structures midline. The heart is prominent. Tracheostomy tube midline. Visualized bony thorax intact. IMPRESSION: Cardiomegaly Bilateral pneumonia superimposed effusions.
[2017-07-15] MEDS: Docusate Sodium 100 mg/10 mL UD PO SCH (09:05)
[2017-07-15] MEDS: Pantoprazole 40 mg/Packet GT SCH (09:06)
[2017-07-15] MEDS: Ascorbic Acid 500 mg/5 mL UDC GT SCH (09:06)
[2017-07-15] MEDS: Potassium Chloride 10 mEq ER Tab PO SCH (09:06)
[2017-07-15] MEDS: Vitamin B Complex w/Vitamin C Tab GT SCH (09:06)
[2017-07-15] MEDS: Lactobacillus Rhamnosus GG 15 Billion CFU CAP.SPRINK PO SCH (09:06)
[2017-07-15] MEDS ORDERED: Propofol 10 mg/mL 20mL Vial **SURGERY USE ONLY IV ONE (09:50)
--- NOTE | 2017-07-15 10:24 | Operative Report ---
DATE OF SURGERY: 07/15/2017 PROCEDURE: Esophagogastroduodenoscopy with biopsy. INDICATION FOR PROCEDURE: GI bleeding. CONSENT: Informed consent was obtained from the patient after planning benefits and risks including infection, bleeding, perforation, . ANESTHESIA USED: Propofol by anesthesiologist. PREOPERATIVE DIAGNOSIS: Gastrointestinal bleed. POSTOPERATIVE DIAGNOSES: 1. Gastritis with erosions at the G-tube site. 2. Gastrointestinal bleed, possibly to #1. DESCRIPTION OF PROCEDURE: The patient was placed in her back. Head was tilted to the side and flexed forward. Upper Olympus endoscope was introduced into the mouth and advanced to the esophagus, which was intubated under direct visualization. Esophageal mucosa was examined on the way down to essentially normal. GE junction was identified at 40 cm. Scope was advanced to the stomach where the gastric mucosa was examined. It showed a G-tube and a site of an old G-tube. There was no blood seen in the stomach. There was a history of gastritis. The G-tube was pushed inside the stomach, its bed showed an area of erythema and erosions with some mucoid discharge duct around it, which was washable. Scope was advanced through the pylorus to the duodenum where the bulb and second part were examined. They were both normal. Scope was then withdrawn to the stomach, retroflexed to examine the cardia and fundus, did not show any other abnormalities. Scope was then straightened. Same examination was repeated again without new findings. So, biopsies were taken from the antrum for CLOtest. Scope was then withdrawn while examining the gastric and esophageal mucosa second time. The patient tolerated the procedure well. There were no immediate postoperative complications. RECOMMENDATIONS: 1. Follow up biopsy results. 2. Continue with PPI. 3. Proceed with colonoscopy. Thank you, Dr. Barth for allowing me to participate in the care of the patient. If you have any further questions, please let me know. [facility]# [id number]
--- NOTE | 2017-07-15 10:30 | Operative Report ---
DATE OF SURGERY: 07/15/2017 PROCEDURE: Colonoscopy. INDICATION FOR PROCEDURE: GI bleeding. CONSENT: Informed consent was obtained from the patient after planning benefits and risks including infection, bleeding, perforation, . ANESTHESIA USED: Propofol given by anesthesiologist. PREOPERATIVE DIAGNOSIS: Gastrointestinal bleed. POSTOPERATIVE DIAGNOSES: 1. Gastrointestinal bleed. 2. Hemorrhoids. DESCRIPTION OF PROCEDURE: The patient was placed in left lateral position. Digital rectal examination showed hemorrhoids. An Olympus colonoscope was inserted through the anus and advanced throughout the colon to the cecum, which was identified by the ileocecal valve and appendiceal orifice. Scope was then withdrawn while examining the four quadrants of colonic mucosa and suctioning air from the colon. No gross lesion was seen throughout the colon until the anal canal was reached with scope was retroflexed to examine the anal verge and it showed internal hemorrhoid. Scope was then straightened and withdrawn. The patient tolerated the procedure well. There were no immediate postoperative complications. RECOMMENDATIONS: 1. Continue to monitor H and H. 2. Transfuse if needed. 3. Resume feeding. Thank you, Dr. Barth for allowing me to participate in the care of the patient. If you have any further questions, please let me know. JOB# [id number]
[2017-07-15] MEDS: Cefepime 1 GM in Sodium Chloride 0.9% 50 ML IV SCH (11:32)
--- NOTE | 2017-07-15 12:29 | Internal Medicine Prog Note ---
Internal Medicine Subjective - Subjective Service Date: 07/15/17 Patient seen and examined:: with staff Patient is:: awake Per staff patient has:: tolerating meds Internal Medicine Objective - Results Result Diagrams: 07/15/17 05:40 07/15/17 05:40 Recent Labs: Laboratory Last Values WBC 6.1 Th/cmm (4.8-10.8) 07/15/17 05:40 RBC 2.58 Mil/cmm (3.80-5.20) L 07/15/17 05:40 Hgb 8.4 gm/dL (12-16) L 07/15/17 05:40 Hct 25.3 % (41.0-60) L 07/15/17 05:40 MCV 98.2 fl (81-100) 07/15/17 05:40 MCH 32.7 pg (27.0-31.0) H 07/15/17 05:40 MCHC Differential 33.3 pg (28.0-36.0) 07/15/17 05:40 RDW 18.3 % (11.5-20.0) 07/15/17 05:40 Plt Count 252 Th/cmm (150-400) 07/15/17 05:40 MPV 10.0 fl 07/15/17 05:40 Neutrophils % 73.7 % (40.0-80.0) 07/12/17 03:59 Band Neutrophils % 3 % (0-10) 07/13/17 04:09 Lymphocytes % 12.2 % (20.0-50.0) L 07/12/17 03:59 Monocytes % 11.8 % (2.0-10.0) H 07/12/17 03:59 Eosinophils % 2.3 % (0.0-5.0) 07/12/17 03:59 Basophils % 0.0 % (0.0-2.0) 07/12/17 03:59 Neutrophils (Manual) 78 % (40-80) 07/13/17 04:09 Lymphocytes 10 % (20-50) L 07/13/17 04:09 Monocytes 5 % (2-10) 07/13/17 04:09 Eosinophils 3 % (0-5) 07/13/17 04:09 Atypical Lymphocytes 1 % 07/13/17 04:09 Hypochromia 1+ 07/13/17 04:09 Platelet Estimate ADEQUATE (NORMAL) 07/13/17 04:09 Polychromasia 1+ 07/10/17 22:35 Anisocytosis 1+ 07/13/17 04:09 Macrocytosis 1+ 07/13/17 04:09 Tear Drop Cells 1+ 07/10/17 22:35 PT 10.7 SECONDS (9.5-11.5) 07/14/17 04:20 INR 1.03 (0.5-1.4) 07/14/17 04:20 PTT (Actin FS) 25.7 SECONDS (26.0-38.0) L 07/14/17 04:20 Sodium 136 mEq/L (136-145) 07/15/17 05:40 Potassium 3.4 mEq/L (3.5-5.1) L 07/15/17 05:40 Chloride 96 mEq/L (98-107) L 07/15/17 05:40 Carbon Dioxide 26.8 mEq/L (21.0-31.0) 07/15/17 05:40 Anion Gap 16.6 (7.0-16.0) H 07/15/17 05:40 BUN 59 mg/dL (7-25) H 07/15/17 05:40 Creatinine 3.8 mg/dL (0.6-1.2) H 07/15/17 05:40 Est GFR ( Amer) TNP 07/15/17 05:40 Est GFR (Non-Af Amer) TNP 07/15/17 05:40 BUN/Creatinine Ratio 15.5 07/15/17 05:40 Glucose 136 mg/dL (70-105) H 07/15/17 05:40 POC Glucose 193 MG/DL (70 - 105) H 07/15/17 11:36 Calcium 8.8 mg/dL (8.6-10.3) 07/15/17 05:40 Phosphorus 2.1 mg/dL (2.5-5.0) L 07/15/17 05:40 Magnesium 2.2 mg/dL (1.9-2.7) 07/12/17 03:59 Iron 44 ug/dL (27-139) 07/12/17 03:59 TIBC 199 ug/dL (250-450) L 07/12/17 03:59 Iron Saturation 22 % (15-55) 07/12/17 03:59 Unsaturated IBC 155 ug/dL (118-369) 07/12/17 03:59 Ferritin 654 ng/mL (15-150) H 07/12/17 03:59 Total Bilirubin 0.3 mg/dL (0.3-1.0) 07/14/17 04:20 AST 129 U/L (13-39) H 07/14/17 04:20 ALT 58 U/L (7-52) H 07/14/17 04:20 Alkaline Phosphatase 238 U/L (34-104) H 07/14/17 04:20 Total Protein 6.3 gm/dL (6.0-8.3) 07/14/17 04:20 Albumin 3.3 gm/dL (3.7-5.3) L 07/14/17 04:20 Globulin 3.0 gm/dL 07/14/17 04:20 Albumin/Globulin Ratio 1.1 (1.0-1.8) 07/14/17 04:20 Triglycerides 73 mg/dL (<150) 07/10/17 22:35 Cholesterol 62 mg/dL (<200) 07/10/17 22:35 LDL Cholesterol Direct 29 mg/dL (75-193) L 07/10/17 22:35 HDL Cholesterol 32 mg/dL (23-92) 07/10/17 22:35 TSH 2.27 uIU/ml (0.34-5.60) 07/10/17 22:35 Stool Occult Blood POSITIVE (NEGATIVE) H 07/12/17 21:00 Hepatitis A IgM Ab Negative (Negative) 07/11/17 00:00 Hep Bs Antigen Negative (Negative) 07/11/17 00:00 Hep B Core IgM Ab Negative (Negative) 07/11/17 00:00 Hepatitis C Antibody 0.2 s/co ratio (0.0-0.9) 07/11/17 00:00 Blood Type A POSITIVE 07/10/17 23:30 Antibody Screen NEGATIVE 07/10/17 23:30 Crossmatch See Detail 07/10/17 23:30 - Physical Exam Vitals and I&O: Vital Signs Temp 97.7 F 07/15/17 04:00 Pulse 65 07/15/17 08:08 Resp 18 07/15/17 08:40 BP 109/49 07/15/17 04:00 Pulse Ox 100 07/15/17 08:08 Intake & Output 07/14/17 07/15/17 07/15/17 18:59 06:59 18:59 Intake Total 357.5 50 Balance 357.5 50 Weight (lbs) 151 lb 151 lb Intake: Intake, IV Amount 357.5 50 Cefepime 1 gm In Sodium 50 50 Chloride 0.9% 50 ml @ 100 mls/hr IV Q12HR [facility] Rx#: [id number] D5-0.45NS 1,000 ml @ 50 307.5 mls/hr IV .Q20H [facility] Rx#: [id number] Other: # Voids 1 1 # Bowel Movements 0 1 Active Medications: Current Medications Acetaminophen (Tylenol 650mg/20.3ml Suspension) 650 mg GT DAILY [facility] Stop: 09/10/17 08:59 Last Admin: 07/15/17 09:05 Dose: 650 mg Acetaminophen (Tylenol 650mg/20.3ml Suspension) 650 mg GT Q4H PRN PRN Reason: TEMP >100 OR PAIN Last Admin: 07/14/17 00:53 Dose: 650 mg Albuterol/Ipratropium (Duoneb Neb) 3 ml HHN Q6HRT [facility] Stop: 09/09/17 18:59 Last Admin: 07/15/17 08:04 Dose: 3 ml Ascorbic Acid (Vitamin C) 500 mg GT DAILY [facility] Stop: 09/10/17 08:59 Last Admin: 07/15/17 09:06 Dose: Not Given Atorvastatin Calcium (Lipitor) 40 mg GT HS [facility] Stop: 09/09/17 20:59 Last Admin: 07/14/17 21:01 Dose: 40 mg Bisacodyl (Dulcolax 10 Mg Supp) 10 mg RC Q72HR PRN PRN Reason: IF MOM INEFFECTIVE Stop: 09/10/17 07:15 Cholecalciferol (Vitamin D3) 1,000 iu GT DAILY [facility] Stop: 09/10/17 08:59 Last Admin: 07/15/17 09:06 Dose: 1,000 iu Docusate Sodium (Colace) 100 mg PO DAILY [facility] Stop: 09/10/17 08:59 Last Admin: 07/15/17 09:05 Dose: 100 mg Epoetin Aauysh (Epogen) 10,000 units IVP TUTHSA [facility] Stop: 09/13/17 14:59 Folic Acid (Folate) 1 mg GT DAILY [facility] Stop: 09/09/17 08:59 Last Admin: 07/15/17 09:06 Dose: 1 mg Cefepime HCl 1 gm/ Sodium (Chloride) 50 mls @ 100 mls/hr IV Q12HR [facility] Stop: 09/11/17 20:59 Last Admin: 07/15/17 11:32 Dose: 100 mls/hr Dextrose/Sodium Chloride (D5-0.45ns) 1,000 mls @ 50 mls/hr IV .Q20H [facility] Stop: 09/11/17 23:04 Last Infusion: 07/14/17 07:00 Dose: 50 mls/hr Insulin Aspart (Novolog Insulin Sliding Scale) 0 units SUBQ Q6H [facility] PRN Reason: Protocol Stop: 09/09/17 18:29 Last Admin: 07/15/17 06:52 Dose: Not Given Lactobacillus Rhamnosus (Culturelle 15b) 1 each PO DAILY [facility] Stop: 09/12/17 08:59 Last Admin: 07/15/17 09:06 Dose: 1 each Lorazepam (Ativan) 0.5 mg GT Q6HR PRN; Protocol PRN Reason: Agitation Stop: 09/08/17 22:40 Last Admin: 07/13/17 18:04 Dose: 0.5 mg Lorazepam (Ativan) 0.5 mg GT Q6H PRN; Protocol PRN Reason: Anxiety Stop: 09/09/17 18:20 Lorazepam (Ativan) 1 mg IVP Q4HR PRN; Protocol PRN Reason: Agitation Stop: 07/23/17 22:58 Last Admin: 07/15/17 05:55 Dose: 1 mg Mirtazapine (Remeron) 15 mg GT HS [facility] PRN Reason: Protocol Stop: 09/09/17 20:59 Last Admin: 07/14/17 21:01 Dose: 15 mg Mirtazapine (Remeron) 15 mg GT HS [facility] PRN Reason: Protocol Stop: 09/09/17 20:59 Miscellaneous (Vte Chemical Prophylaxis Screen/ Admission) 1 ea PRN PRN PRN Reason: PROTOCOL Stop: 09/09/17 16:54 Miscellaneous (Probiotic Screen) 1 ea PRN PRN PRN Reason: PROTOCOL Stop: 09/12/17 08:44 Ondansetron HCl (Zofran Odt) 4 mg PO Q6HR PRN PRN Reason: Nausea / Vomiting Stop: 09/09/17 18:20 Last Admin: 07/11/17 19:34 Dose: 4 mg Pantoprazole Sodium (Protonix) 40 mg GT DAILY [facility] Stop: 09/09/17 08:59 Last Admin: 07/15/17 09:06 Dose: 40 mg Potassium Chloride (Klor-Con) 10 meq PO DAILY [facility] Stop: 09/12/17 08:59 Last Admin: 07/15/17 09:06 Dose: 10 meq Potassium Phosphate (K Phos) 1,000 mg GT BID [facility] Stop: 09/11/17 17:29 Last Admin: 07/15/17 09:06 Dose: Not Given Simethicone (Mylicon) 80 mg GT Q6H PRN PRN Reason: GAS PAIN Stop: 09/09/17 18:20 Temazepam (Restoril) 15 mg GT HS PRN PRN Reason: Insomnia Stop: 09/08/17 22:32 Last Admin: 07/14/17 01:01 Dose: 15 mg Vitamin B Complex/Vit C/Folic Acid (Vitamin B Complex W/Vitamin C) 1 tab GT DAILY [facility] Stop: 09/10/17 08:59 Last Admin: 07/15/17 09:06 Dose: 1 tab Zinc Sulfate (Zinc Sulfate) 220 mg GT DAILY [facility] Stop: 09/10/17 08:59 Last Admin: 07/15/17 09:07 Dose: 220 mg General: alert HEENT: NC/AT, PERRLA Neck: Supple Lungs: CTAB Abdomen: soft, non-tender, non-distended - Procedures Procedures: Procedures Procedure Code Date BLOOD TRANSFUSION SERVICE 62804 07/10/17 PERFORMANCE OF URINARY FILTRATION, <6 HRS/DAY [id number] 06/29/17 TRANSFUSE NONAUT RED BLOOD CELLS IN PERIPH VEIN, PERC 29718X1 07/10/17 Internal Medicine Assmt/Plan - Assessment Assessment: Severe Anemia Healthcare facility associated PNA acute renal failure tracheostomy status r/o gi bleed acute respiratory failure - Plan Plan: monitor h/h follow up labs in am ivabx as per id continue current orders Nutritional Asmnt/Malnutr-PDOC - Dietary Evaluation Malnutrition Findings (Please click <Entered> for more info): Nutritional Asmnt/Malnutrition Start: 07/14/17 16: 23 Text: Status: Complete Freq: Document 07/14/17 16:24 LCNAVING (Rec: 07/14/17 16:49 [email or web address]) Nutritional Asmnt/Malnutrition Patient General Information Nutritional Screening Moderate Risk Diagnosis acute and chronic renal failure, dehydration r/o sepsis Pertinent Medical Hx/Surgical Hx ESRD, DM, HTN, dysphagia, hyperlipidemia, ARF Subjective Information pt seen sleeping at time of visit. Spoke with RN, Pt was NPO today for possible EGD and coloneoscopy. Pt was on novasource Renal 45ml/hr continouous. Current Diet Order/ Nutrition Support NPO Pertinent Medications vitamin C, d5-0.45ns, colace, folate, novolog, culturelle, remeron, protonix, kcl, k phos , vitamin B complex with vit c and folic acid, zinc Pertinent Labs 2/5 Na 137, K 3.7, Cl 96, BUN 54, Cr 3.0, Glucose 163, POC 163-181 Nutritional Hx/Data Height 5 ft 1 in Height (Calculated Centimeters) 154.9 Current Weight (lbs) 151 lb Weight (Calculated Kilograms) 68.5 Weight (Calculated Grams) 23592.4 [place] Body Weight 105 % [place] Body Weight 143 Body Mass Index (BMI) 28.5 Weight Status Overweight GI Symptoms GI Symptoms None Last BM 2/5 x 4 Difficult in: None Skin Integrity/Comment: reddened to sacrum Estimated Nutritional Goals BEE in Kcals: Adj wt of IBW Calories/Kcals/Kg 25-30 Kcals Calculated [id number] Protein: Adj wt of IBW Protein g/k.2-1.4 considering pt on dialysis Protein Calculated 64-74 Fluid: ml 1325-1590ml (1ml/kcal) Nutritional Problem 1. Problem Problem altered nutrition related lab values Etiology hx of ESRD, DM Signs/Symptoms: BUN 54, Cr 3.0, Glucose 163, POC 163-181 Malnutrition Alert Protein-Calorie Malnutrition N/A Is there a minimum of two criteria No selected? Query Text:Check all the applicable criteria. A minimum of two criteria are recommended for diagnosis of either severe or non-severe malnutrition. Intervention/Recommendation Comments 1. Recommend resume TF Novasource Renal at 40ml/hr x 20hr. This will provide 1600kcal, 72g protein and 574ml free water, meeting 100% of nutritional needs. 2. Monitor TF rate, tolerance, wt weekly, skin integrity and labs 3. F/U as high risk in 2-3 days, 07/16-07/17 Expected Outcomes/Goals Expected Outcomes/Goals 1. Pt to meet at least 75% of nutritional needs via nutrition support with tolerance 2. Wt stability, skin to remain intact, labs to approach WNL.
[2017-07-15] MEDS ORDERED: Epoetin Alfa 20000 Units/mL Vial IVP SCH (15:00)
--- NOTE | 2017-07-15 19:45 | General Progress Note ---
Subjective - Review of Systems Service Date: 07/15/17 Subjective: alert, comfortable Objective - Results Result Diagrams: 07/15/17 05:40 07/15/17 05:40 Recent Labs: Laboratory Last Values WBC 6.1 Th/cmm (4.8-10.8) 07/15/17 05:40 RBC 2.58 Mil/cmm (3.80-5.20) L 07/15/17 05:40 Hgb 8.4 gm/dL (12-16) L 07/15/17 05:40 Hct 25.3 % (41.0-60) L 07/15/17 05:40 MCV 98.2 fl (81-100) 07/15/17 05:40 MCH 32.7 pg (27.0-31.0) H 07/15/17 05:40 MCHC Differential 33.3 pg (28.0-36.0) 07/15/17 05:40 RDW 18.3 % (11.5-20.0) 07/15/17 05:40 Plt Count 252 Th/cmm (150-400) 07/15/17 05:40 MPV 10.0 fl 07/15/17 05:40 Neutrophils % 73.7 % (40.0-80.0) 07/12/17 03:59 Band Neutrophils % 3 % (0-10) 07/13/17 04:09 Lymphocytes % 12.2 % (20.0-50.0) L 07/12/17 03:59 Monocytes % 11.8 % (2.0-10.0) H 07/12/17 03:59 Eosinophils % 2.3 % (0.0-5.0) 07/12/17 03:59 Basophils % 0.0 % (0.0-2.0) 07/12/17 03:59 Neutrophils (Manual) 78 % (40-80) 07/13/17 04:09 Lymphocytes 10 % (20-50) L 07/13/17 04:09 Monocytes 5 % (2-10) 07/13/17 04:09 Eosinophils 3 % (0-5) 07/13/17 04:09 Atypical Lymphocytes 1 % 07/13/17 04:09 Hypochromia 1+ 07/13/17 04:09 Platelet Estimate ADEQUATE (NORMAL) 07/13/17 04:09 Polychromasia 1+ 07/10/17 22:35 Anisocytosis 1+ 07/13/17 04:09 Macrocytosis 1+ 07/13/17 04:09 Tear Drop Cells 1+ 07/10/17 22:35 PT 10.7 SECONDS (9.5-11.5) 07/14/17 04:20 INR 1.03 (0.5-1.4) 07/14/17 04:20 PTT (Actin FS) 25.7 SECONDS (26.0-38.0) L 07/14/17 04:20 Sodium 136 mEq/L (136-145) 07/15/17 05:40 Potassium 3.4 mEq/L (3.5-5.1) L 07/15/17 05:40 Chloride 96 mEq/L (98-107) L 07/15/17 05:40 Carbon Dioxide 26.8 mEq/L (21.0-31.0) 07/15/17 05:40 Anion Gap 16.6 (7.0-16.0) H 07/15/17 05:40 BUN 59 mg/dL (7-25) H 07/15/17 05:40 Creatinine 3.8 mg/dL (0.6-1.2) H 07/15/17 05:40 Est GFR ( Amer) TNP 07/15/17 05:40 Est GFR (Non-Af Amer) TNP 07/15/17 05:40 BUN/Creatinine Ratio 15.5 07/15/17 05:40 Glucose 136 mg/dL (70-105) H 07/15/17 05:40 POC Glucose 224 MG/DL (70 - 105) H 07/15/17 17:36 Calcium 8.8 mg/dL (8.6-10.3) 07/15/17 05:40 Phosphorus 2.1 mg/dL (2.5-5.0) L 07/15/17 05:40 Magnesium 2.2 mg/dL (1.9-2.7) 07/12/17 03:59 Iron 44 ug/dL (27-139) 07/12/17 03:59 TIBC 199 ug/dL (250-450) L 07/12/17 03:59 Iron Saturation 22 % (15-55) 07/12/17 03:59 Unsaturated IBC 155 ug/dL (118-369) 07/12/17 03:59 Ferritin 654 ng/mL (15-150) H 07/12/17 03:59 Total Bilirubin 0.3 mg/dL (0.3-1.0) 07/14/17 04:20 AST 129 U/L (13-39) H 07/14/17 04:20 ALT 58 U/L (7-52) H 07/14/17 04:20 Alkaline Phosphatase 238 U/L (34-104) H 07/14/17 04:20 Total Protein 6.3 gm/dL (6.0-8.3) 07/14/17 04:20 Albumin 3.3 gm/dL (3.7-5.3) L 07/14/17 04:20 Globulin 3.0 gm/dL 07/14/17 04:20 Albumin/Globulin Ratio 1.1 (1.0-1.8) 07/14/17 04:20 Triglycerides 73 mg/dL (<150) 07/10/17 22:35 Cholesterol 62 mg/dL (<200) 07/10/17 22:35 LDL Cholesterol Direct 29 mg/dL (75-193) L 07/10/17 22:35 HDL Cholesterol 32 mg/dL (23-92) 07/10/17 22:35 TSH 2.27 uIU/ml (0.34-5.60) 07/10/17 22:35 Stool Occult Blood POSITIVE (NEGATIVE) H 07/12/17 21:00 Hepatitis A IgM Ab Negative (Negative) 07/11/17 00:00 Hep Bs Antigen Negative (Negative) 07/11/17 00:00 Hep B Core IgM Ab Negative (Negative) 07/11/17 00:00 Hepatitis C Antibody 0.2 s/co ratio (0.0-0.9) 07/11/17 00:00 Blood Type A POSITIVE 07/10/17 23:30 Antibody Screen NEGATIVE 07/10/17 23:30 Crossmatch See Detail 07/10/17 23:30 - Physical Exam Vitals and I&O: Vital Signs Temp 97.2 F 07/15/17 18:25 Pulse 77 07/15/17 19:41 Resp 20 07/15/17 19:41 BP 121/42 07/15/17 18:25 Pulse Ox 100 07/15/17 19:41 Intake & Output 07/15/1718 07/16/17 06:59 18:59 06:59 Intake Total 50 330 Balance 50 330 Weight (lbs) 68.492 kg 68.492 kg Intake: Intake, IV Amount 50 Cefepime 1 gm In Sodium 50 Chloride 0.9% 50 ml @ 100 mls/hr IV Q12HR [facility] Rx#: [id number] Oral 0 TPN/PPN 330 Other: # Voids 1 3 # Bowel Movements 1 0 Active Medications: Current Medications Acetaminophen (Tylenol 650mg/20.3ml Suspension) 650 mg GT DAILY [facility] Stop: 09/10/17 08:59 Last Admin: 07/15/17 09:05 Dose: 650 mg Acetaminophen (Tylenol 650mg/20.3ml Suspension) 650 mg GT Q4H PRN PRN Reason: TEMP >100 OR PAIN Last Admin: 07/14/17 00:53 Dose: 650 mg Albuterol/Ipratropium (Duoneb Neb) 3 ml HHN Q6HRT [facility] Stop: 09/09/17 18:59 Last Admin: 07/15/17 19:40 Dose: 3 ml Ascorbic Acid (Vitamin C) 500 mg GT DAILY [facility] Stop: 09/10/17 08:59 Last Admin: 07/15/17 09:06 Dose: Not Given Atorvastatin Calcium (Lipitor) 40 mg GT HS [facility] Stop: 09/09/17 20:59 Last Admin: 07/14/17 21:01 Dose: 40 mg Bisacodyl (Dulcolax 10 Mg Supp) 10 mg RC Q72HR PRN PRN Reason: IF MOM INEFFECTIVE Stop: 09/10/17 07:15 Cholecalciferol (Vitamin D3) 1,000 iu GT DAILY [facility] Stop: 09/10/17 08:59 Last Admin: 07/15/17 09:06 Dose: 1,000 iu Docusate Sodium (Colace) 100 mg PO DAILY [facility] Stop: 09/10/17 08:59 Last Admin: 07/15/17 09:05 Dose: 100 mg Epoetin Aayush (Epogen) 10,000 units IVP TUTHSA [facility] Stop: 09/13/17 14:59 Last Admin: 07/15/17 16:13 Dose: 10,000 units Folic Acid (Folate) 1 mg GT DAILY [facility] Stop: 09/09/17 08:59 Last Admin: 07/15/17 09:06 Dose: 1 mg Cefepime HCl 1 gm/ Sodium (Chloride) 50 mls @ 100 mls/hr IV Q12HR [facility] Stop: 09/11/17 20:59 Last Admin: 07/15/17 11:32 Dose: 100 mls/hr Dextrose/Sodium Chloride (D5-0.45ns) 1,000 mls @ 50 mls/hr IV .Q20H [facility] Stop: 09/11/17 23:04 Last Infusion: 07/14/17 07:00 Dose: 50 mls/hr Insulin Aspart (Novolog Insulin Sliding Scale) 0 units SUBQ Q6H [facility] PRN Reason: Protocol Stop: 09/09/17 18:29 Last Admin: 07/15/17 17:45 Dose: 4 units Lactobacillus Rhamnosus (Culturelle 15b) 1 each PO DAILY [facility] Stop: 09/12/17 08:59 Last Admin: 07/15/17 09:06 Dose: 1 each Lorazepam (Ativan) 0.5 mg GT Q6HR PRN; Protocol PRN Reason: Agitation Stop: 09/08/17 22:40 Last Admin: 07/15/17 15:28 Dose: 0.5 mg Lorazepam (Ativan) 0.5 mg GT Q6H PRN; Protocol PRN Reason: Anxiety Stop: 09/09/17 18:20 Lorazepam (Ativan) 1 mg IVP Q4HR PRN; Protocol PRN Reason: Agitation Stop: 07/23/17 22:58 Last Admin: 07/15/17 05:55 Dose: 1 mg Mirtazapine (Remeron) 15 mg GT HS [facility] PRN Reason: Protocol Stop: 09/09/17 20:59 Last Admin: 07/14/17 21:01 Dose: 15 mg Mirtazapine (Remeron) 15 mg GT HS [facility] PRN Reason: Protocol Stop: 09/09/17 20:59 Miscellaneous (Vte Chemical Prophylaxis Screen/ Admission) 1 ea MC PRN PRN PRN Reason: PROTOCOL Stop: 09/09/17 16:54 Miscellaneous (Probiotic Screen) 1 ea MC PRN PRN PRN Reason: PROTOCOL Stop: 09/12/17 08:44 Ondansetron HCl (Zofran Odt) 4 mg PO Q6HR PRN PRN Reason: Nausea / Vomiting Stop: 09/09/17 18:20 Last Admin: 07/11/17 19:34 Dose: 4 mg Pantoprazole Sodium (Protonix) 40 mg GT DAILY [facility] Stop: 09/09/17 08:59 Last Admin: 07/15/17 09:06 Dose: 40 mg Potassium Chloride (Klor-Con) 10 meq PO DAILY [facility] Stop: 09/12/17 08:59 Last Admin: 07/15/17 09:06 Dose: 10 meq Potassium Phosphate (K Phos) 1,000 mg GT BID [facility] Stop: 09/11/17 17:29 Last Admin: 07/15/17 17:17 Dose: 1,000 mg Simethicone (Mylicon) 80 mg GT Q6H PRN PRN Reason: GAS PAIN Stop: 09/09/17 18:20 Temazepam (Restoril) 15 mg GT HS PRN PRN Reason: Insomnia Stop: 09/08/17 22:32 Last Admin: 07/14/17 01:01 Dose: 15 mg Vitamin B Complex/Vit C/Folic Acid (Vitamin B Complex W/Vitamin C) 1 tab GT DAILY [facility] Stop: 09/10/17 08:59 Last Admin: 07/15/17 09:06 Dose: 1 tab Zinc Sulfate (Zinc Sulfate) 220 mg GT DAILY [facility] Stop: 09/10/17 08:59 Last Admin: 07/15/17 09:07 Dose: 220 mg General: Alert, No acute distress HEENT: Atraumatic, PERRLA, EOMI Neck: Supple, +2 carotid pulse wo bruit Cardiovascular: Regular rate, Normal S1, Normal S2 Lungs: Other (rhonchi) Abdomen: Bowel sounds, Soft Extremities: no Edema Neurological: Sensation intact Skin: no Rash Psych/Mental Status: Mood NL - Procedures Procedures: Procedures Procedure Code Date BLOOD TRANSFUSION SERVICE 34495 07/10/17 PERFORMANCE OF URINARY FILTRATION, <6 HRS/DAY [id number] 06/29/17 TRANSFUSE NONAUT RED BLOOD CELLS IN PERIPH VEIN, PERC 03364T2 07/10/17 Assessment/Plan - Problem List Patient Problems: All Active Problems 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 - Assessment Assessment: ESRD on HD Decomp CHF Severe Anemia 2nd GI bleed on CKD Chronic Resp Failure on T piece Type 2 DM Ess HTN - Plan Plan: Lab - Result Diagrams 07/13/17 04:09 02/05/18 04:20 Current Medications Acetaminophen (Tylenol 650mg/20.3ml Suspension) 650 mg GT DAILY [facility] Stop: 09/10/17 08:59 Last Admin: 07/14/17 09:06 Dose: Not Given Acetaminophen (Tylenol 650mg/20.3ml Suspension) 650 mg GT Q4H PRN PRN Reason: TEMP >100 OR PAIN Last Admin: 07/14/17 00:53 Dose: 650 mg Albuterol/Ipratropium (Duoneb Neb) 3 ml HHN Q6HRT [facility] Stop: 09/09/17 18:59 Last Admin: 07/14/17 12:38 Dose: 3 ml Ascorbic Acid (Vitamin C) 500 mg GT DAILY [facility] Stop: 09/10/17 08:59 Last Admin: 07/14/17 09:06 Dose: Not Given Atorvastatin Calcium (Lipitor) 40 mg GT HS [facility] Stop: 09/09/17 20:59 Last Admin: 07/13/17 21:42 Dose: 40 mg Bisacodyl (Dulcolax 10 Mg Supp) 10 mg RC Q72HR PRN PRN Reason: IF MOM INEFFECTIVE Stop: 09/10/17 07:15 Cholecalciferol (Vitamin D3) 1,000 iu GT DAILY [facility] Stop: 09/10/17 08:59 Last Admin: 07/14/17 09:06 Dose: Not Given Docusate Sodium (Colace) 100 mg PO DAILY [facility] Stop: 09/10/17 08:59 Last Admin: 07/14/17 09:06 Dose: Not Given Epoetin Aayush (Epogen) 10,000 units SUBQ MoWeFr [facility] Stop: 09/12/17 12:02 Folic Acid (Folate) 1 mg GT DAILY [facility] Stop: 09/09/17 08:59 Last Admin: 07/14/17 09:06 Dose: Not Given Cefepime HCl 1 gm/ Sodium (Chloride) 50 mls @ 100 mls/hr IV Q12HR [facility] Stop: 09/11/17 20:59 Last Infusion: 07/14/17 09:45 Dose: Infused Dextrose/Sodium Chloride (D5-0.45ns) 1,000 mls @ 50 mls/hr IV .Q20H [facility] Stop: 09/11/17 23:04 Last Infusion: 07/14/17 07:00 Dose: 50 mls/hr Insulin Aspart (Novolog Insulin Sliding Scale) 0 units SUBQ Q6H [facility] PRN Reason: Protocol Stop: 09/09/17 18:29 Last Admin: 07/14/17 06:41 Dose: 2 units Lactobacillus Rhamnosus (Culturelle 15b) 1 each PO DAILY [facility] Stop: 09/12/17 08:59 Last Admin: 07/14/17 09:07 Dose: Not Given Lorazepam (Ativan) 0.5 mg GT Q6HR PRN; Protocol PRN Reason: Agitation Stop: 09/08/17 22:40 Last Admin: 07/13/17 18:04 Dose: 0.5 mg Lorazepam (Ativan) 0.5 mg GT Q6H PRN; Protocol PRN Reason: Anxiety Stop: 09/09/17 18:20 Lorazepam (Ativan) 1 mg IVP Q4HR PRN; Protocol PRN Reason: Agitation Stop: 07/23/17 22:58 Last Admin: 07/14/17 10:06 Dose: 1 mg Mirtazapine (Remeron) 15 mg GT HS [facility] PRN Reason: Protocol Stop: 09/09/17 20:59 Last Admin: 07/13/17 21:25 Dose: 15 mg Mirtazapine (Remeron) 15 mg GT HS [facility] PRN Reason: Protocol Stop: 09/09/17 20:59 Miscellaneous (Vte Chemical Prophylaxis Screen/ Admission) 1 ea PRN PRN PRN Reason: PROTOCOL Stop: 09/09/17 16:54 Miscellaneous (Probiotic Screen) 1 ea PRN PRN PRN Reason: PROTOCOL Stop: 09/12/17 08:44 Ondansetron HCl (Zofran Odt) 4 mg PO Q6HR PRN PRN Reason: Nausea / Vomiting Stop: 09/09/17 18:20 Last Admin: 07/11/17 19:34 Dose: 4 mg Pantoprazole Sodium (Protonix) 40 mg GT DAILY [facility] Stop: 09/09/17 08:59 Last Admin: 07/14/17 09:06 Dose: Not Given Potassium Chloride (Klor-Con) 10 meq PO DAILY [facility] Stop: 09/12/17 08:59 Last Admin: 07/14/17 09:07 Dose: Not Given Potassium Phosphate (K Phos) 1,000 mg GT BID [facility] Stop: 09/11/17 17:29 Last Admin: 07/14/17 09:06 Dose: Not Given Simethicone (Mylicon) 80 mg GT Q6H PRN PRN Reason: GAS PAIN Stop: 09/09/17 18:20 Temazepam (Restoril) 15 mg GT HS PRN PRN Reason: Insomnia Stop: 09/08/17 22:32 Last Admin: 07/14/17 01:01 Dose: 15 mg Vitamin B Complex/Vit C/Folic Acid (Vitamin B Complex W/Vitamin C) 1 tab GT DAILY [facility] Stop: 09/10/17 08:59 Last Admin: 07/14/17 09:06 Dose: Not Given Zinc Sulfate (Zinc Sulfate) 220 mg GT DAILY [facility] Stop: 09/10/17 08:59 Last Admin: 07/14/17 09:06 Dose: Not Given Lab - Result Diagrams 07/15/17 05:40 07/15/17 05:40 Scheduled for HD today result of EGD noted replace K Nutritional Asmnt/Malnutr-PDOC - Dietary Evaluation Malnutrition Findings (Please click <Entered> for more info): Nutritional Asmnt/Malnutrition Start: 07/14/17 16: 23 Text: Status: Complete Freq: Document 07/14/17 16:24 HEIDY (Rec: 07/14/17 16:49 HEIDY [email or web address]) Nutritional Asmnt/Malnutrition Patient General Information Nutritional Screening Moderate Risk Diagnosis acute and chronic renal failure, dehydration r/o sepsis Pertinent Medical Hx/Surgical Hx ESRD, DM, HTN, dysphagia, hyperlipidemia, ARF Subjective Information pt seen sleeping at time of visit. Spoke with RN, Pt was NPO today for possible EGD and coloneoscopy. Pt was on novasource Renal 45ml/hr continouous. Current Diet Order/ Nutrition Support NPO Pertinent Medications vitamin C, d5-0.45ns, colace, folate, novolog, culturelle, remeron, protonix, kcl, k phos , vitamin B complex with vit c and folic acid, zinc Pertinent Labs 2/5 Na 137, K 3.7, Cl 96, BUN 54, Cr 3.0, Glucose 163, POC 163-181 Nutritional Hx/Data Height 1.55 m Height (Calculated Centimeters) 154.9 Current Weight (lbs) 68.492 kg Weight (Calculated Kilograms) 68.5 Weight (Calculated Grams) 62547.4 [place] Body Weight 105 % [place] Body Weight 143 Body Mass Index (BMI) 28.5 Weight Status Overweight GI Symptoms GI Symptoms None Last BM 2/5 x 4 Difficult in: None Skin Integrity/Comment: reddened to sacrum Estimated Nutritional Goals BEE in Kcals: Adj wt of IBW Calories/Kcals/Kg 25-30 Kcals Calculated 5696-9202 Protein: Adj wt of IBW Protein g/k.2-1.4 considering pt on dialysis Protein Calculated 64-74 Fluid: ml 1325-1590ml (1ml/kcal) Nutritional Problem 1. Problem Problem altered nutrition related lab values Etiology hx of ESRD, DM Signs/Symptoms: BUN 54, Cr 3.0, Glucose 163, POC 163-181 Malnutrition Alert Protein-Calorie Malnutrition N/A Is there a minimum of two criteria No selected? Query Text:Check all the applicable criteria. A minimum of two criteria are recommended for diagnosis of either severe or non-severe malnutrition. Intervention/Recommendation Comments 1. Recommend resume TF Novasource Renal at 40ml/hr x 20hr. This will provide 1600kcal, 72g protein and 574ml free water, meeting 100% of nutritional needs. 2. Monitor TF rate, tolerance, wt weekly, skin integrity and labs 3. F/U as high risk in 2-3 days, 07/16-07/17 Expected Outcomes/Goals Expected Outcomes/Goals 1. Pt to meet at least 75% of nutritional needs via nutrition support with tolerance 2. Wt stability, skin to remain intact, labs to approach WNL.
--- NOTE | 2017-08-07 21:32 | Discharge Summary ---
DATE OF DISCHARGE: 07/15/2017 The patient is a ____ very well known to me from [facility], was admitted. ADMITTING DIAGNOSES: Severe anemia, Severe anemia, health-care associated pneumonia, renal failure, status post trach, status post PEG, and rule out gastrointestinal bleeding, acute respiratory failure, and the patient was admitted and was given a blood transfusion. The patient is doing better. The patient also had a Nephrology and pulmonary consultation. The patient gradually improved and was given also antibiotics. The patient was sent back to [facility] on 07/15/2017 when the patient was stable. MEDICATIONS: See the reconciliation sheet. The patient is bedbound and is on tube feeding. [facility]# [id number]
== END 2017-07-15 20:00 | DRG 377 ==
LOC: ICU 20:20 → TELE 07-14 18:41
PROVIDERS: ADMIT Internal Medicine; ATTEND Internal Medicine
PROC: 30233N1 Transfusion of Nonautologous Red Blood Cells into Peripheral Vein, Percutaneous Approach (ICD-10-PCS; principal; 2017-07-11)
PROC: 5A1D70Z Performance of Urinary Filtration, Intermittent, Less than 6 Hours Per Day (ICD-10-PCS; 2017-07-11)
PROC: 5A1D70Z Performance of Urinary Filtration, Intermittent, Less than 6 Hours Per Day (ICD-10-PCS; 2017-07-12)
PROC: 0DB68ZX Excision of Stomach, Via Natural or Artificial Opening Endoscopic, Diagnostic (ICD-10-PCS; 2017-07-15)
PROC: 5A1D70Z Performance of Urinary Filtration, Intermittent, Less than 6 Hours Per Day (ICD-10-PCS; 2017-07-15)
PROC: 0DJD8ZZ Inspection of Lower Intestinal Tract, Via Natural or Artificial Opening Endoscopic (ICD-10-PCS; 2017-07-15)
DX: K29.01 Acute gastritis with bleeding (principal); J18.9 Pneumonia, unspecified organism; J96.20 Acute and chronic respiratory failure, unspecified whether with hypoxia or hypercapnia; I13.2 Hypertensive heart and chronic kidney disease with heart failure and with stage 5 chronic kidney disease, or end stage renal disease; N17.9 Acute kidney failure, unspecified; Z93.0 Tracheostomy status; N18.6 End stage renal disease; E11.22 Type 2 diabetes mellitus with diabetic chronic kidney disease; I50.9 Heart failure, unspecified; E87.1 Hypo-osmolality and hyponatremia; Y95 Nosocomial condition; E78.5 Hyperlipidemia, unspecified; R13.10 Dysphagia, unspecified; E55.9 Vitamin D deficiency, unspecified; K21.9 Gastro-esophageal reflux disease without esophagitis; D63.1 Anemia in chronic kidney disease; K64.8 Other hemorrhoids; Z88.5 Allergy status to narcotic agent; Z88.8 Allergy status to other drugs, medicaments and biological substances; Z99.2 Dependence on renal dialysis; Z93.1 Gastrostomy status; Z79.82 Long term (current) use of aspirin; Z79.4 Long term (current) use of insulin
CPT/HCPCS: 36415-UA; 71045-TC; 80048-TC; 80053-TC; 80061-TC; 80074-90; 82270-TC; 82728-90; 82948-90; 83540-90; 83550-90; 83735-TC; 84100-TC; 84443-TC; 85007-TC; 85025-TC; 85027-TC; 85610-TC; 86850-TC; 86900-TC; 86901-TC; 86922-TC; 87070; 87338-TC; 90937; 93005; 94664; 94760; J0692; J0885; J1815; J1956; J2060; J2704; J7030; J7042; P9016; Q0162; Z7610

== ENCOUNTER 2017-08-02 13:13 | Inpatient (IN) | payer MEDICARE, MEDICAID ==
[2017-08-02] MEDS ORDERED: Sodium Chloride 0.9% 500 ML IV ONE ×2 (13:48→15:04)
[2017-08-02] MEDS ORDERED: Meropenem 0.5 GM in Sodium Chloride 0.9% 100 ML IV ONE (13:51)
[2017-08-02] MEDS ORDERED: Albuterol/Ipratropium Neb 3 ML AERS HHN ONE ×2 (13:52→13:57)
[2017-08-02] MEDS ORDERED: Enoxaparin 30 mg/0.3 mL 0.3mL Syr SUBQ STA (13:59)
[2017-08-02] MEDS ORDERED: Piperacillin Sodium/Tazobact 3.375 gm Vial IV ONE (14:15)
[2017-08-02] MEDS ORDERED: Fluconazole 200mg/100mL 200 MG/100 ML BAG IV ONE ×2 (14:19→16:51)
[2017-08-02] MEDS ORDERED: Enoxaparin 30 mg/0.3 mL 0.3mL Syr SUBQ ONE (14:37)
[2017-08-02] MEDS ORDERED: Diltiazem 5 mg/mL 5mL Vial IVP STA (14:56)
[2017-08-02] MEDS ORDERED: Diltiazem 5 mg/mL 5mL Vial IVP ONE (14:58)
[2017-08-02 15:07] LABS: INR 1.23 (0.5-1.4); PROTHROMBIN TIME (TEST) 12.9 SECONDS (9.5-11.5)
[2017-08-02 15:37] LABS: ALBUMIN 3.1 gm/dL (3.7-5.3); ALKALINE PHOSPHATASE 112 U/L (34-104); AMYLASE SERUM 12 U/L (29-103); ANION GAP 15.3 (7.0-16.0); BILIRUBIN,TOTAL 0.3 mg/dL (0.3-1.0); BUN - UREA NITROGEN 54 mg/dL (7-25); CALCIUM SERUM 9.4 mg/dL (8.6-10.3); CARBON DIOXIDE 26.4 mEq/L (21.0-31.0); CHLORIDE 98 mEq/L (98-107); CREATININE - SERUM 3.3 mg/dL (0.6-1.2); GLUCOSE 235 mg/dL (70-105); LIPASE 4 U/L (11-82); POTASSIUM SERUM 3.7 mEq/L (3.5-5.1); SGOT 24 U/L (13-39); SGPT/ALT 13 U/L (7-52); SODIUM SERUM 136 mEq/L (136-145); TOTAL PROTEIN,SERUM 6.2 gm/dL (6.0-8.3)
[2017-08-02 16:10] LABS: pH 7.31 (7.35-7.45)
[2017-08-02] MEDS ORDERED: Albumin 25% 25gm/100mL 25 GM/100 ML BTL IV ONE ×2 (16:32→17:36)
[2017-08-02 16:36] LABS: BILIRUBIN,TOTAL 0.4 mg/dL (0.3-1.0); TOTAL PROTEIN,SERUM 5.9 gm/dL (6.0-8.3)
[2017-08-02 16:40] LABS: EOSINOPHILE ABSOLUTE 0.1 Th/cmm (0.1-0.4); LYMPHOCYTE ABSOLUTE 0.4 Th/cmm (1.5-3.0); MANUAL DIFF REQUIRED? YES; MEAN CELL VOLUME 100.2 fl (81-100); MEAN CORPUSCULAR HEMOGLOBIN 33.5 pg (27.0-31.0); MEAN CORPUSCULAR HGB CONC 33.4 pg (28.0-36.0); MEAN PLATELET VOLUME 10.5 fl; MONOCYTE ABSOLUTE 0.2 Th/cmm (0.3-1.0); NEUTROPHILE ABSOLUTE 9.9 Th/cmm (1.8-8.0); PLATELET COUNT 246 Th/cmm (150-400); RED BLOOD COUNT 2.05 Mil/cmm (3.80-5.20); RED CELL DISTRIBUTION WIDTH 18.3 % (11.5-20.0); WHITE BLOOD COUNT 10.6 Th/cmm (4.8-10.8)
[2017-08-02 16:46] LABS: BILIRUBIN,DIRECT 0.09 mg/dL (0.0-0.2)
--- NOTE | 2017-08-02 17:13 | History & Physical ---
ADMIT DATE: 08/02/2017 CHIEF COMPLAINT: Shortness of breath. HISTORY OF PRESENT ILLNESS: This is a 76-year-old female, who was admitted from a [facility] facility to the Emergency Room due to shortness of breath. REVIEW OF SYSTEMS: GENERAL: This is a 76-year-old female that appears as stated. No fever, no chills. HEAD: No headache. No dizziness. EYES: No eye pain, no blurring of vision. NECK: No neck pain. No nuchal rigidity. CHEST: No chest pain. No palpitation. PULMONARY: Positive shortness of breath. Positive cough. GASTROINTESTINAL: No abdominal pain, no constipation, no diarrhea. The patient has a gastrostomy tube. MUSCULOSKELETAL: No joint pain. No muscle pain. SOCIAL HISTORY: The patient lives in a [facility] facility prior to hospitalization. SURGICAL HISTORY: The patient has a tracheostomy. The patient underwent also PEG placement. FAMILY HISTORY: Unremarkable. PAST MEDICAL HISTORY: Includes end-stage renal disease hemodialysis dependent, respiratory failure with tracheostomy, dysphagia, atrial fibrillation, anemia, hypertension, gastroesophageal reflux disease. PHYSICAL EXAMINATION: VITAL SIGNS: Temperature of 97.3, heart rate of 106, blood pressure of 82/53, respirations 22, 96% on FiO2 50%. HEAD: Atraumatic, normocephalic. EYES: Bilateral conjunctivae are clear. Bilateral pupils are equally round and reactive. NECK: Supple. No JVD. The patient has tracheostomy. CARDIOVASCULAR: S1 and S2 without murmur, irregularly. PULMONARY: Fine scattered rhonchi noted. GASTROINTESTINAL: Soft and nontender without guarding. Positive bowel sounds. MUSCULOSKELETAL: No clubbing. No cyanosis. ASSESSMENT: 1. Septic shock. 2. Hypotension. 3. Pleural effusion. 4. End-stage renal disease. 5. Anemia. 6. Respiratory failure. 7. Dysphagia. PLAN: We will admit the patient to Intensive Care Unit. We will get the consult with ID doctor for her antibiotic management. We are also going to consult with green meat packer. We will do medication reconciliation accordingly. Treatment plans were discussed with the patient's nurse. Treatment plans were discussed with Dr. Barth. JOB# [id number]
[2017-08-02 17:41] LABS: HEMOGLOBIN 6.9 gm/dL (12-16)
[2017-08-02 17:42] LABS: HEMATOCRIT 20.5 % (41.0-60)
[2017-08-02 20:16] LABS: BAND NEUTROPHILE 20 % (0-10); BASOPHIL 0 % (0-3); EOSINOPHIL 2 % (0-5); LYMPHOCYTE 4 % (20-50); MONOCYTE 2 % (2-10); NEUTROPHILS 72 % (40-80); PLATELET ESTIMATE ADEQUATE (NORMAL); PLATELET MORPHOLOGY NORMAL (NORMAL); TOTAL CELLS COUNTED 100
[2017-08-02 20:17] LABS: HYPOCHROMIA 1+
[2017-08-02] MEDS ORDERED: Norepinephrine 4 mg/4mL Vial IV ONE (20:49)
[2017-08-02] MEDS ORDERED: Piperacillin Sodium/Tazobact 2.25 gm Vial IV ONE (21:18)
[2017-08-02] MEDS: Albuterol Nebulizer 2.5mg/3mL HHN SCH ×2 (21:30→23:28)
[2017-08-02 21:38] LABS: A1C % 7.7 % (4.0-6.0)
[2017-08-02] MEDS: Piperacillin/Tazobact 2.25 gm in 0.9% NS 50 ML IV SCH (21:40)
[2017-08-02] MEDS ORDERED: Diltiazem 5 mg/mL 5mL Vial IVP PRN (21:42)
--- NOTE | 2017-08-02 22:13 | ER Physician Documentation ---
DATE OF SERVICE: 08/02/2017 She is a full code, referred here by Dr. Edd Barth. The patient was sent here because the patient's blood pressure was low and the patient had marked swelling in the left upper arm. It looks like the left arm shunt is almost ready to close down. The patient may need a Kirill catheter or a Perm-A-Cath catheter. The patient is not in a position to give any history. The patient's complaint that came from the custodial, she came from [facility] by Dr. Barth, and patient has swelling in the left arm, edema in the left arm AV shunt, 4+ on the left arm. There is a very faint bruit heard over the left arm. The patient had a ____ noted on the , but yesterday and today there is hardly any pulse felt. Other history, I will give you from the notes that came from the custodial. HISTORY OF PRESENT ILLNESS: Essentially, the patient has a G-tube, the patient has a tracheostomy tube, the patient has been on trach and she is a full code patient. She is allergic to MORPHINE. Triage nurse did the vital signs showing temperature to be 98.2, pulse of 119, respirations 22, blood pressure 94/25, oxygen saturation 100% ____, height of 63 inches, weighing 151 pounds. The left arm is found to be markedly swollen. The patient had received pneumococcal vaccine on 06/12/2016, flu vaccine on 04/24/2017 and PPD TB screening on 07/04/2017. She is on hemodialysis. The hemodialysis days are on Tuesdays, and Saturdays. There is some mention of Herson Perez 8-inch size was inserted. She is on 2 liters per nasal cannula oxygenation. The patient had edema over the abdomen, edema in the left back, sacral, coccyx pressure bedsores is noted. AV shunt diagram is shown in the left side and the left arm is markedly 4+ edematous with multiple ecchymoses, skin tear and puncture meadows. The patient is getting Nepro 1.8 at 45 mL an hour for 16 hours. The language that she speaks is Icelandic. The patient's primary care physician here that is taking care of the patient is Dr. Edd Barth. HER ALLERGIES ARE TO MORPHINE, SERTRALINE AND ____. She carries with her the diagnosis of end-stage renal failure, type 2 diabetes mellitus, encephalopathy, dysphagia, anemia, insomnia, ____. She is in respiratory failure, for further evaluation of the left breast and left upper extremity edema. The surfacing technician was kind enough to do the EKG as fast as they can, right away they did it, I sincerely thank them. The EKG shows generalized low voltage ____ and extremity lead. The patient has normal sinus rhythm. The patient has looks like old inferior wall [place] and nonspecific ST-T changes. Few PACs were recorded. It looks like the patient has atrial fibrillation is the rhythm and nonspecific ST-T changes, but there is no definite myocardial infarction was noted on this ____. The other notes that I should mention for the benefit of the physician taking care of this patient is that on 07/18/2017, the patient's reason for admission was hypoxia, respiratory failure, tracheostomy and the patient was transferred from [facility]. The patient is a 76-year-old woman with probably list of many medical conditions that I mentioned earlier. The patient was transferred from hemodialysis ____ hospital, noted to have blood in the chair, hemoglobin was 4.8 and this was 07/28/2017 and today date is ____, so 5 days ago they found that there was some blood on the chair. At that time, the hemoglobin was 4.8, received 3 units of packed RBCs and underwent a colonoscopy, which was nondiagnostic. The patient was previously able to breathe with a tracheal collar and tracheal ____ device. Today, the patient is awake and somewhat interactive, nothing by mouth, but not following any commands, breathing with distress. This is when she was admitted at [facility], I believe, that might be their first sets of note. Her BUN was 44 at that time on 07/23/2017 and creatinine was 3.8, so the diagnosis that I gave you holds true and will be given at the end again, so the patient was therefore continued ____ spontaneous breathing, titrate oxygen to be oxygen saturation more than 97%. Tracheal suctioning as needed. Continue nebulized bronchodilators. PT, OT and evaluation, etc. Her medications at the time in the past was breathing treatment, Tylenol, aspirin, atorvastatin, cholecalciferol, docusate, Dulcolax, Fleet Enema, insulin, milk of magnesia, mirtazapine, Nephro-Jie, Zofran, pantoprazole, simethicone, Tylenol, vitamin C. PAST MEDICAL HISTORY: ALLERGIES TO MORPHINE, SERTRALINE, AND ____. SOCIAL HISTORY: Otherwise benign and negative. PAST SURGICAL HISTORY: Trach history and G tube history is present. The patient at one point was seen by Dr. Edouard Dixon and reason for admission was GI bleeding, hypotension, symptomatic anemia in the past. The patient was admitted on 07/17/2017 and she was admitted at that time with lower GI bleeding and she underwent EGD by Dr. Silverio. Hemoglobin improved after the transfusion and she was weaned off from the machine during admission, stable for ____ to subacute facility. She had a lot of lab workup done on 07/22/2017 showing magnesium was to be high in view of the renal failure, always they are high. ALT was 91, alkaline phosphatase was elevated to be 239. Total protein was 6.4. BNP was 281.46. Troponin was 0.04. Lipase 232. X-ray impression: Cardiomegaly, obscuration of the left hemidiaphragm, rule out infiltrate versus pleural effusion, atelectasis of left midlung, very small right pleural effusion, tracheostomy tube in place, complete left lung opacification which may represent atelectasis versus consolidation, underlying effusion could not be ruled out and this x-ray was done on 07/17/2017 at [facility]. At one point, she was given some iron tablets also in the form of Fosrenol 500 mg, vitamin ____ topical application medications were applied. She was also given some fluconazole at [facility] where the fungal infection was there, I am not sure. The patient also received some polymyxin, trimethoprim sulfa ____ units IV piggyback q.72 hours and Regular insulin, insulin coverage, hydromorphone for pain 2 mg q.4h., hydrocortisone for pain in the form of tablets was given, acetaminophen, clonidine, Senna, atorvastatin, etc., all were given. Carotid bruits were none present. On physical examination, the patient appears to be almost semi-comatose. Initially, we were not able to get the pulse, finally ____ nurse got the blood pressure to be 89/68. Conjunctivae are showing to be pallor. Left arm is completely edematous and they said that the shunt was in the left arm. It looks like it is thrombosed shunt, might need to put a Perm-A-Cath or a Kirill catheter for the time being for dialysis and repair of the shunt might need to be done. The patient might need a urine culture, blood cultures and all cultures need to be done, antibiotics, etc. need to be given, which will be given to the patient. The patient's physicians are Dr. Barth as a primary doctor, Dr. Thaddeus Hardy as alternate physician, dentist is ____, psychiatrist is Dr. Luigi Shankar, pilot submersible is Dr. James Bello, floor specialist ____. In conclusion, the patient came here with: 1. Hypotension. 2. Anemia. 3. Chronic COPD, emphysema, bronchitis, tracheostomy, respiratory failure on oxygen. THE PATIENT IS ALLERGIC TO MORPHINE. The patient is full code. The patient has diabetes mellitus, anxiety. The patient has chronic respiratory failure, AV shunt in the left arm that is placed over there. The patient has anemia of chronic disease. The patient has been getting hemodialysis for a long time. The patient has generalized low voltage. We will check the patient's TSH level, T4 level and whether the patient has sepsis, septicemia is not known. The patient has history of GI bleeding, end-stage renal failure. The patient has a G-tube. General: Adequately build, malnourished. Neck: Supple. Tracheostomy, 8-Portuguese tube is in place. General body mass is poor. Left arm is almost 4 inch swollen and the blood pressure was taken in the left arm. No meningeal signs. No edema over the legs. No cyanosis. No petechia. No ecchymosis. Chest is clear in sitting position except for occasional crackles and rhonchi. His abdomen is obese, otherwise benign, negative, has a G-tube in place. Liver and spleen could not be felt. No free fluid in the abdominal cavity. Central nervous system: Comatose patient. Plan is to treat the patient. Do all the cultures, x-ray, EKGs. Check the thyroid profile. Give folic acid, etc. More as we go along. [facility]# [id number]
[2017-08-02] MEDS: Ipratropium Neb 0.5 mg/2.5 mL UD HHN SCH (23:28)
[2017-08-03] MEDS: INSULIN ASPART SLIDING SCALE 100 UNITS/ML UNIT SUBQ SCH ×5 (00:56→23:42)
[2017-08-03] MEDS: Diltiazem 5 mg/mL 5mL Vial IVP PRN (01:38)
[2017-08-03] MEDS: Ipratropium Neb 0.5 mg/2.5 mL UD HHN SCH (03:20)
[2017-08-03] MEDS: Albuterol Nebulizer 2.5mg/3mL HHN SCH (03:20)
[2017-08-03] MEDS ORDERED: Piperacillin Sodium/Tazobact 2.25 gm Vial IV ONE (04:28)
[2017-08-03] MEDS ORDERED: Norepinephrine 4 mg/4mL Vial IV ONE (04:49)
[2017-08-03] MEDS ORDERED: Atropine Sulfate 1 mg/mL 1 mL Vial ONE (05:08)
[2017-08-03] MEDS ORDERED: Atropine Sulfate 0.1 mg/mL 5 mL Syr IVP ONE (05:10)
[2017-08-03] MEDS ORDERED: Atropine Sulfate 1 mg/mL 1 mL Vial IVP ONE (05:10)
[2017-08-03] MEDS: Piperacillin/Tazobact 2.25 gm in 0.9% NS 50 ML IV SCH (06:59)
[2017-08-03] MEDS ORDERED: DOPamine 400 MG/250 ML BAG IV PRN (07:48)
[2017-08-03 08:06] LABS: IRON LC 10 ug/dL (27-139); TIBC (LC) 135 ug/dL (250-450); UIBC 125 ug/dL (118-369)
[2017-08-03] MEDS: Chlorhexidine Gluconate 0.12% 15mL Mouthwash MM SCH ×2 (08:34→19:10)
--- NOTE | 2017-08-03 08:58 | General Progress Note ---
Subjective - Review of Systems Events since last encounter: patient awake alert in no acute distress Objective - Results Result Diagrams: 08/02/17 15:37 08/02/17 13:43 Recent Labs: Laboratory Last Values WBC 10.6 Th/cmm (4.8-10.8) D 08/02/17 15:37 RBC 2.05 Mil/cmm (3.80-5.20) L 08/02/17 15:37 Hgb 6.9 gm/dL (12-16) L* 08/02/17 15:37 Hct 20.5 % (41.0-60) L* D 08/02/17 15:37 MCV 100.2 fl (81-100) H 08/02/17 15:37 MCH 33.5 pg (27.0-31.0) H 08/02/17 15:37 MCHC Differential 33.4 pg (28.0-36.0) 08/02/17 15:37 RDW 18.3 % (11.5-20.0) 08/02/17 15:37 Plt Count 246 Th/cmm (150-400) 08/02/17 15:37 MPV 10.5 fl 08/02/17 15:37 Band Neutrophils % 20 % (0-10) H 08/02/17 15:37 Neutrophils (Manual) 72 % (40-80) 08/02/17 15:37 Lymphocytes 4 % (20-50) L 08/02/17 15:37 Monocytes 2 % (2-10) 08/02/17 15:37 Eosinophils 2 % (0-5) 08/02/17 15:37 Basophils 0 % (0-3) 08/02/17 15:37 Hypochromia 1+ 08/02/17 15:37 Platelet Estimate ADEQUATE (NORMAL) 08/02/17 15:37 Platelet Morphology NORMAL (NORMAL) 08/02/17 15:37 Crenated Cell 2+ 08/02/17 15:37 RBC Morph Micro Appear ABNORMAL (NORMAL) 08/02/17 15:37 PT 12.9 SECONDS (9.5-11.5) H 08/02/17 13:58 INR 1.23 (0.5-1.4) 08/02/17 13:58 PTT (Actin FS) 33.6 SECONDS (26.0-38.0) 08/02/17 13:58 Specimen Source Arterial 08/02/17 15:56 Sample Site RB 08/02/17 15:56 pH 7.31 (7.35-7.45) L 08/02/17 15:56 pCO2 45.0 mmHg (35.0-45.0) 08/02/17 15:56 pO2 60.0 mmHg (80.0-100.0) L 08/02/17 15:56 HCO3 21.9 mEq/L (20.0-26.0) 08/02/17 15:56 Base Excess -3.6 mEq/L (-3.0-3.0) L 08/02/17 15:56 O2 Saturation 88.0 % (92.0-100.0) L 08/02/17 15:56 Rhett Test NA 08/02/17 15:56 Vent Rate 12 08/02/17 15:56 Inspired O2 50 08/02/17 15:56 Tidal Volume 450 08/02/17 15:56 PEEP 5 08/02/17 15:56 Pressure (ins/psv/peep) NA 08/02/17 15:56 Critical Value LZHANG 08/02/17 15:56 Sodium 136 mEq/L (136-145) 08/02/17 13:43 Potassium 3.7 mEq/L (3.5-5.1) 08/02/17 13:43 Chloride 98 mEq/L (98-107) 08/02/17 13:43 Carbon Dioxide 26.4 mEq/L (21.0-31.0) 08/02/17 13:43 Anion Gap 15.3 (7.0-16.0) 08/02/17 13:43 BUN 54 mg/dL (7-25) H 08/02/17 13:43 Creatinine 3.3 mg/dL (0.6-1.2) H 08/02/17 13:43 Est GFR ( Amer) TNP 08/02/17 13:43 Est GFR (Non-Af Amer) TNP 08/02/17 13:43 BUN/Creatinine Ratio 16.4 08/02/17 13:43 Glucose 235 mg/dL (70-105) H 08/02/17 13:43 POC Glucose 239 MG/DL (70 - 105) H 08/03/17 05:43 Hemoglobin A1c % 7.7 % (4.0-6.0) H 08/02/17 15:37 Whole Bld Lactic Acid 1.97 mmol/L (0.60-1.99) 08/02/17 13:49 Calcium 9.4 mg/dL (8.6-10.3) 08/02/17 13:43 Magnesium 2.9 mg/dL (1.9-2.7) H 08/02/17 14:40 Iron 10 ug/dL (27-139) L 08/02/17 13:56 TIBC 135 ug/dL (250-450) L 08/02/17 13:56 Iron Saturation 7 % (15-55) L 08/02/17 13:56 Unsaturated IBC 125 ug/dL (118-369) 08/02/17 13:56 Total Bilirubin 0.4 mg/dL (0.3-1.0) 08/02/17 13:57 Direct Bilirubin 0.09 mg/dL (0.0-0.2) 08/02/17 13:57 AST 26 U/L (13-39) 08/02/17 13:57 ALT 15 U/L (7-52) 08/02/17 13:57 Alkaline Phosphatase 120 U/L (34-104) H 08/02/17 13:57 Troponin I 0.60 ng/mL (0.01-0.05) H* 08/02/17 13:50 B-Natriuretic Peptide 1120.0 pg/mL (5.0-100.0) H 08/02/17 14:40 Total Protein 5.9 gm/dL (6.0-8.3) L 08/02/17 13:57 Albumin 3.0 gm/dL (3.7-5.3) L 08/02/17 13:57 Globulin 2.9 gm/dL 08/02/17 13:57 Albumin/Globulin Ratio 1.0 (1.0-1.8) 08/02/17 13:57 Amylase 12 U/L (29-103) L 08/02/17 13:43 Lipase 4 U/L (11-82) L 08/02/17 13:43 Blood Type A POSITIVE 08/02/17 20:54 Antibody Screen POSITIVE 08/02/17 20:54 Crossmatch See Detail 08/02/17 20:54 - Physical Exam Vitals and I&O: Vital Signs Temp 97.1 F 08/03/17 05:00 Pulse 60 08/03/17 08:45 Resp 14 08/03/17 08:00 BP 84/25 08/03/17 08:45 Pulse Ox 99 08/03/17 08:00 Intake & Output 08/02/17 08/03/17 08/03/17 18:59 06:59 18:59 Intake Total 673.934 Output Total 0 Balance 673.934 Weight (lbs) 83.461 kg Intake: Intake, IV Amount 283.934 Norepinephrine 4 mg In 233.934 Dextrose 5% 250 ml @ 8 MCG/MIN 30.48 mls/hr IV TITR PRN Rx#:[id number] Piperacillin Sodium/ 50 Tazobact 2.25 gm In Sodium Chloride 0.9% 50 ml @ 100 mls/hr IV 0600, 1400,2200 [facility] Rx#: [id number] Tube Feeding 90 Blood Product 250 Other 50 Output: Urine 0 Other: # Bowel Movements 1 Active Medications: Current Medications Albuterol/Ipratropium (Duoneb Neb) 3 ml HHN Q4HRT [facility] Stop: 10/02/17 10:59 Chlorhexidine Gluconate (Peridex) 15 ml MM 0800,1999 [facility] Stop: 10/02/17 07:59 Last Admin: 08/03/17 08:34 Dose: 15 ml Diltiazem HCl (Cardizem) 5 mg IVP Q4H PRN PRN Reason: INCREASE HEART RATE Stop: 10/01/17 21:59 Last Admin: 08/03/17 01:38 Dose: 5 mg Fluconazole (Diflucan) 200 mg in 100 mls @ 100 mls/hr IV Q24HR [facility] Stop: 10/02/17 14:59 Meropenem 500 mg/ Sodium (Chloride) 100 mls @ 100 mls/hr IV Q24H [facility] Stop: 10/02/17 12:59 Piperacillin Sod/Tazobactam (Sod 2.25 gm/ Sodium Chloride) 50 mls @ 100 mls/hr IV 0600,1400,2200 [facility] Stop: 10/01/17 21:59 Last Admin: 08/03/17 06:59 Dose: 100 mls/hr Dopamine HCl/Dextrose (Dopamine) 400 mg in 250 mls @ 0 mls/hr IV TITR PRN; Protocol; Per Protocol PRN Reason: BP MAINTENANCE (PER PROTOCOL) Stop: 10/02/17 07:47 Norepinephrine Bitartrate 4 mg (/ Dextrose) 254 mls @ 0 mls/hr IV TITR PRN; Protocol; Per Protocol PRN Reason: BP MAINTENANCE (PER PROTOCOL) Stop: 10/02/17 08:31 Insulin Aspart (Novolog Insulin Sliding Scale) 0 units SUBQ Q6HR [facility] PRN Reason: Protocol Stop: 10/02/17 00:00 Last Admin: 08/03/17 05:54 Dose: Not Given Lorazepam (Ativan) 1 mg IVP Q2HR PRN; Protocol PRN Reason: Restlessness Stop: 10/01/17 21:18 Last Admin: 08/02/17 21:24 Dose: 1 mg Miscellaneous (Vancomycin Iv Per Pharmacy) 1 [facility] PRN PRN PRN Reason: PROTOCOL Stop: 10/01/17 20:42 Miscellaneous (Zosyn Iv Per Pharmacy) 1 [facility] PRN PRN PRN Reason: PROTOCOL Stop: 10/01/17 20:42 Pantoprazole Sodium (Protonix) 40 mg IVP DAILY [facility] Stop: 10/02/17 08:59 Last Admin: 08/03/17 08:34 Dose: 40 mg - Procedures Procedures: Procedures Procedure Code Date BLOOD TRANSFUSION SERVICE 50122 07/10/17 EXCISION OF STOMACH, ENDO, DIAGN [id number] 07/10/17 INSPECTION OF LOWER INTESTINAL TRACT, ENDO [id number] 07/10/17 PERFORMANCE OF URINARY FILTRATION, <6 HRS/DAY [id number] 07/10/17 TRANSFUSE NONAUT RED BLOOD CELLS IN PERIPH VEIN, PERC [id number] 07/10/17
[2017-08-03 09:13] LABS: % EOSINOPHILS 5.8 % (0.0-5.0); % LYMPHOCYTES 3.1 % (20.0-50.0); % MONOCYTES 4.5 % (2.0-10.0); % NEUTROPHILS 86.6 % (40.0-80.0); EOSINOPHILE ABSOLUTE 1.1 Th/cmm (0.1-0.4); HEMOGLOBIN 8.7 gm/dL (12-16); LYMPHOCYTE ABSOLUTE 0.6 Th/cmm (1.5-3.0); MEAN CELL VOLUME 94.3 fl (81-100); MEAN CORPUSCULAR HEMOGLOBIN 30.9 pg (27.0-31.0); MEAN CORPUSCULAR HGB CONC 32.8 pg (28.0-36.0); MEAN PLATELET VOLUME 9.8 fl; MONOCYTE ABSOLUTE 0.8 Th/cmm (0.3-1.0); NEUTROPHILE ABSOLUTE 15.7 Th/cmm (1.8-8.0); PLATELET COUNT 250 Th/cmm (150-400)
[2017-08-03 09:23] LABS: ANION GAP 17.4 (7.0-16.0); BUN - UREA NITROGEN 62 mg/dL (7-25); CALCIUM SERUM 8.9 mg/dL (8.6-10.3); CARBON DIOXIDE 23.3 mEq/L (21.0-31.0); CHLORIDE 99 mEq/L (98-107); CREATININE - SERUM 3.6 mg/dL (0.6-1.2); GLUCOSE 298 mg/dL (70-105); POTASSIUM SERUM 3.7 mEq/L (3.5-5.1); SODIUM SERUM 136 mEq/L (136-145)
--- NOTE | 2017-08-03 09:24 | Diagnostic Imaging Report ---
CHEST X-RAY: AP view INDICATION: Pneumonia COMPARISON: Chest x-ray 07/15/2017 FINDINGS: Tracheostomy tube is noted. Right-sided PICC line is seen terminating along the axillary region. There is complete opacification of left hemithorax. Right effusion right lung infiltrates are also noted. Heart size cannot be well assessed on this exam. Degenerative changes of spine and shoulders are noted. IMPRESSION: CHF with complete opacification of the left hemithorax which may be due to combination of pleural effusion and lung collapse and pneumonia. Additional right effusion and right lung infiltrates are also noted.
[2017-08-03 09:26] LABS: pH 7.42 (7.35-7.45)
[2017-08-03 09:27] LABS: ALLEN TEST Positive
--- NOTE | 2017-08-03 09:27 | Diagnostic Imaging Report ---
CHEST X-RAY: AP view INDICATION: Pleural effusions COMPARISON: 08/02/2017 FINDINGS: Tracheostomy tube and right PICC line are stable. There is reexpansion of the left lung. Findings of CHF are seen bilateral infiltrates and effusions. Cardiomegaly is noted. IMPRESSION: Reexpansion of the left lung. Findings may have been due to prior mucous plug CHF with bilateral effusions and infiltrates Cardiomegaly.
[2017-08-03 09:41] LABS: HEMATOCRIT 26.4 % (41.0-60); WHITE BLOOD COUNT 18.2 Th/cmm (4.8-10.8)
--- NOTE | 2017-08-03 10:06 | Consultation ---
DATE OF CONSULTATION: 08/03/2017 VASCULAR CONSULT REFERRING PHYSICIAN: Dr. Barth. REASON FOR CONSULTATION: Swollen left arm. Thank you for referring this patient to me. HISTORY OF PRESENT ILLNESS: This is a 76-year-old female admitted through ER because of shortness of breath. The chest x-ray showed opacified left hemithorax, but since then has expanded. This may have been due to mucus plug and has resolved. Additional comorbidities include end-stage renal disease and she had a left arm AV shunt placed at [place] a year ago. She has G-tube in place. She has a trach in place as well. LABORATORY STUDIES: On this admission, the hemoglobin was low at 6.9. The patient is receiving blood transfusions now. WBC is 10,600. The chemistry: BUN is 54 with creatinine of 3.3. The liver function tests essentially normal. The BNP is high at 1120. PHYSICAL EXAMINATION: The patient on vent. She responds to pain. The whole left arm is swollen, but the shunt is patent. The radial and ulnar pulses are weakly audible by Doppler, but the hand is warm. RECOMMENDATIONS: May continue to use the shunt, but will order ultrasound of the venous system for DVT. JOB# [id number]
[2017-08-03] MEDS: Albuterol/Ipratropium Neb 3 ML AERS HHN SCH ×4 (11:10→23:06)
--- NOTE | 2017-08-03 12:54 | Consultation ---
Consult Note - Consult Note Service Date: 08/03/17 Referring Physician: Luiza Barth Consult Note: PHYSICIAN Consultation Note: Date of Admission: 08/02/17 Purpose of Consultation: Chief Complaint: Patient ANDREW ANDERSON was admitted to location Intensive Care Unit with SEPSIS, SEPTIC SHOCK,HYPOTENSION,ESRD. History of Present Illness: 76 yo female with history of diabetes mellitus type 2, hypertension, respiratory insufficiency on T bar now on vent dependence, CK is to have dialysis was brought from SNF to ER for shortness of breath. It was assisted with the change in mental status. On initial evaluation, her temperature was 98.8F and WBC count was 10,600 with the 20% bands. Sepsis workup was performed as he was hypotensive. She was started on vasopressor agents and put on ventilator. Antibiotic-nichole patient was started on Zosyn and vancomycin IV. Blood culture grew gram-negative rods today. ID consult was called for further antibiotic management. Patient has received 2 units of PRBC transfusion. With the current management, she is more alert and awake now. Past Medical History: Allergies Allergy/AdvReac Type Severity Reaction Status Date / Time hydrochlorothiazide Allergy Verified 08/02/17 13:43 [From Microzide] morphine Allergy Verified 08/02/17 13:43 sertraline Allergy Verified 08/02/17 13:43 Vital Signs Temp 96.8 F 08/03/17 12:00 Pulse 122 08/03/17 12:45 Resp 12 08/03/17 12:00 BP 114/69 08/03/17 12:45 Pulse Ox 98 08/03/17 12:00 Intake & Output 08/02/17 08/03/17 08/03/17 18:59 06:59 18:59 Intake Total 673.934 Output Total 0 Balance 673.934 Weight (lbs) 83.461 kg Intake: Intake, IV Amount 283.934 Norepinephrine 4 mg In 233.934 Dextrose 5% 250 ml @ 8 MCG/MIN 30.48 mls/hr IV TITR PRN Rx#:[id number] Piperacillin Sodium/ 50 Tazobact 2.25 gm In Sodium Chloride 0.9% 50 ml @ 100 mls/hr IV 0600, 1400,2200 FOUZIA Rx#: [id number] Tube Feeding 90 Blood Product 250 Other 50 Output: Urine 0 Other: # Bowel Movements 1 Laboratory Results - last 24 hr 08/02/17 08/02/17 08/03/17 20:54 23:50 05:43 WBC RBC Hgb Hct MCV MCH MCHC Differential RDW Plt Count MPV Neutrophils % Lymphocytes % Monocytes % Eosinophils % Basophils % Specimen Source Sample Site pH pCO2 pO2 HCO3 Base Excess O2 Saturation Rhett Test Vent Rate Inspired O2 Tidal Volume PEEP Pressure (ins/psv/peep) Critical Value Sodium Potassium Chloride Carbon Dioxide Anion Gap BUN Creatinine Est GFR ( Amer) Est GFR (Non-Af Amer) BUN/Creatinine Ratio Glucose POC Glucose 228 H 239 H Calcium Troponin I Blood Type A POSITIVE Antibody Screen POSITIVE Crossmatch See Detail 08/03/17 08/03/17 08/03/17 08:51 08:58 08:59 WBC 18.2 H D RBC 2.80 L Hgb 8.7 L Hct 26.4 L D MCV 94.3 MCH 30.9 MCHC Differential 32.8 RDW 19.0 Plt Count 250 MPV 9.8 Neutrophils % 86.6 H Lymphocytes % 3.1 L Monocytes % 4.5 Eosinophils % 5.8 H Basophils % 0.0 Specimen Source Arterial Sample Site Right Radial pH 7.42 pCO2 37.0 pO2 204.0 H HCO3 24.8 Base Excess -0.2 O2 Saturation 100.0 Rhett Test Positive Vent Rate 12 Inspired O2 60 Tidal Volume 450 PEEP 5 Pressure (ins/psv/peep) NA Critical Value LZHANG Sodium Potassium Chloride Carbon Dioxide Anion Gap BUN Creatinine Est GFR ( Amer) Est GFR (Non-Af Amer) BUN/Creatinine Ratio Glucose POC Glucose Calcium Troponin I 0.95 H* D Blood Type Antibody Screen Crossmatch 08/03/17 08/03/17 08:59 11:39 WBC RBC Hgb Hct MCV MCH MCHC Differential RDW Plt Count MPV Neutrophils % Lymphocytes % Monocytes % Eosinophils % Basophils % Specimen Source Sample Site pH pCO2 pO2 HCO3 Base Excess O2 Saturation Rhett Test Vent Rate Inspired O2 Tidal Volume PEEP Pressure (ins/psv/peep) Critical Value Sodium 136 Potassium 3.7 Chloride 99 Carbon Dioxide 23.3 Anion Gap 17.4 H BUN 62 H Creatinine 3.6 H Est GFR ( Amer) TNP Est GFR (Non-Af Amer) TNP BUN/Creatinine Ratio 17.2 Glucose 298 H POC Glucose 272 H Calcium 8.9 Troponin I Blood Type Antibody Screen Crossmatch Home Medication Medication Instructions Recorded Type Aspirin [Aspirin Chewable] 81 mg GT DAILY 06/29/17 History Bisacodyl [Dulcolax 10 Mg Supp] 10 mg RC PRN PRN 06/29/17 History Fleet Enema [Fleet Enema] 118 ml RC PRN PRN 06/29/17 History Insulin Regular, Human [Humulin R] 100 unit IJ Q6H 06/29/17 History Magnesium Hydroxide [Milk of 30 ml GT Q72H PRN 06/29/17 History Magnesia] Acetaminophen [Tylenol 650 mg GT Q4H PRN #0 udc 07/15/17 Rx 650mg/20.3mL Suspension] Bisacodyl [Dulcolax 10 Mg Supp] 10 mg RC Q72HR PRN sup 07/15/17 Rx Simethicone [Mylicon] 80 mg GT Q6H PRN ctb 07/15/17 Rx Temazepam [Restoril*] 15 mg GT HS PRN cap 07/15/17 Rx Zinc Sulfate 220 mg GT DAILY cap 07/15/17 Rx Acetaminophen [Tylenol 650 mg GT DAILY 08/02/17 History 650mg/20.3mL Suspension] Ascorbic Acid [Vitamin C] 500 mg GT DAILY 08/02/17 History Atorvastatin Calcium [Lipitor] 40 mg GT HS 08/02/17 History Cholecalciferol (Vit D3) [Vitamin 1,000 iu GT DAILY 08/02/17 History D3] Docusate Sodium [Colace] 100 mg GT DAILY 08/02/17 History Mirtazapine [Remeron] 15 mg GT HS 08/02/17 History Ondansetron [Zofran Odt] 4 mg GT Q6HR PRN 08/02/17 History Pantoprazole [Protonix] 40 mg GT DAILY 08/02/17 History Vit B Cmplx 3/FA/Vit C/Biotin 1 tab GT DAILY 08/02/17 History [Nephro-Jie Rx Tablet] Current Medications Generic Name Dose Route Start Last Admin Trade Name Freq PRN Reason Stop Dose Admin Albuterol/Ipratropium 3 ml 08/03/17 11:00 08/03/17 11:10 Duoneb Neb HHN 10/02/17 10:59 3 ml Q4HRT FOUZIA Administration Chlorhexidine Gluconate 15 ml 08/03/17 08:00 08/03/17 08:34 Peridex MM 10/02/17 07:59 15 ml 0800,2000 FOUZIA Administration Diltiazem HCl 5 mg 08/02/17 21:48 08/03/17 01:38 Cardizem IVP 10/01/17 21:59 5 mg Q4H PRN Administration INCREASE HEART RATE Fluconazole 200 mg in 100 mls @ 100 mls/hr 08/03/17 15:00 Diflucan IV 10/02/17 14:59 Q24HR FOUZIA Meropenem 500 mg/ Sodium 100 mls @ 100 mls/hr 08/03/17 13:00 Chloride IV 10/02/17 12:59 Q24H FOUZIA Dopamine HCl/Dextrose 400 mg in 250 mls @ 0 mls/hr 08/03/17 07:48 Dopamine IV 10/02/17 07:47 TITR PRN BP MAINTENANCE (PER PROTOCOL) Protocol Per Protocol Norepinephrine Bitartrate 4 mg 254 mls @ 0 mls/hr 08/03/17 08:32 08/03/17 09: 57 / Dextrose IV 10/02/17 08:31 4 mcg/min TITR PRN 15.24 mls/hr BP MAINTENANCE (PER PROTOCOL) Administration Protocol Per Protocol Vancomycin HCl 1.5 gm/ Sodium 500 mls @ 250 mls/hr 08/03/17 18:00 Chloride IV 08/03/17 19:59 1800 ONE Insulin Aspart 0 units 08/03/17 00:00 08/03/17 12:01 Novolog Insulin Sliding Scale SUBQ 10/02/17 00:00 6 units Q6HR FOUZIA Administration Protocol Lorazepam 1 mg 08/02/17 21:19 08/02/17 21:24 Ativan IVP 10/01/17 21:18 1 mg Q2HR PRN Administration Restlessness Protocol Miscellaneous 1 ea 08/02/17 20:43 Vancomycin Iv Per Pharmacy 10/01/17 20:42 PRN PRN PROTOCOL Miscellaneous 1 ea 08/02/17 20:43 Zosyn Iv Per Pharmacy 10/01/17 20:42 PRN PRN PROTOCOL Pantoprazole Sodium 40 mg 08/03/17 09:00 08/03/17 08:34 Protonix IVP 10/02/17 08:59 40 mg DAILY FOUZIA Administration Review of Systems: A 12 point ROS was reviewed with the pertinent positive and negatives noted in the HPI. Social History Smoking Status Smoker, status unknown Family Medical History Family Medical History Start: 08/02/17 18: 37 Freq: ONCE Status: Active Document 08/02/17 20:10 HELEN (Rec: 08/03/17 01:43 HELEN MARTINEZ- [id number]) Family Medical History Mother History Unknown Yes Ethnicity Physical Exam: General: Comfortable, obese, not in acute distress. On the ventilator. HEENT: Head: Normocephalic, atraumatic. Oral cavity: Moist, pink tongue. Eyes : Pallor is present. No icterus. Pupil PERRLA. EOMI. Neck: Trach site is clear. Cardio: S1 and S2 within normal with regular rhythm no murmur or gallop. Respiratory: Vesicular sounds, decreased breath sound. Abdominal: Soft, nontender, nondistended, bowel sounds present. Genital/Urinary: Deferred. Extremities: No cyanosis, no clubbing, no edema. Left approximately swollen with AV shunt placement. Neurological: Alert and awake. Communicates well. Assessment: 1. Septic shock. 2. Gram-negative negative bacteremia. 3. Pneumonia. 4. CK D stage V pneumatosis. 5. Diabetes mellitus type 2. 6. Obesity. Plan: Change antibiotic to meropenem and give colistin. Repeat the blood cultures. CT scan abdomen and pelvis. Depending on final blood culture report will define final antibiotic therapy. Thank you, Dr. Barth, for involving me in taking care of this patient. Signed, Andre Sun M.D. 254
[2017-08-03] MEDS: Meropenem 500 MG in Sodium Chloride 0.9% 100 ML IV SCH (13:00)
--- NOTE | 2017-08-03 13:13 | Consultation ---
DATE OF CONSULTATION: 08/03/2017 GASTROENTEROLOGY CONSULTATION REQUESTING PHYSICIAN: Dr. Edd Barth. REASON FOR CONSULTATION: Anemia. HISTORY OF PRESENT ILLNESS: A 76-year-old female with vent-dependent respiratory failure; dysphagia, status post G-tube insertion; atrial fibrillation; chronic anemia; GERD; and hypertension. She represents with anemia. She also had left-sided upper extremity swelling and Doppler ultrasound is being ordered to rule out DVT. She was admitted for shortness of breath. She was noted to be anemic. She is receiving blood transfusion. There is no overt GI bleeding. She had an admission to this facility about 2-3 weeks ago for hematochezia. At that time, an upper endoscopy and colonoscopy showed erosive gastritis, intact G-tube, and hemorrhoids. There has been no witnessed GI bleeding over the last 2 weeks. PAST MEDICAL HISTORY: As above, also notable for end-stage renal disease, hemodialysis dependent. MEDICATIONS: Here are DuoNeb nebulizer, diltiazem, Diflucan, insulin sliding scale, Ativan p.r.n., meropenem, vancomycin, Zosyn, and Protonix. ALLERGIES: HYDROCHLOROTHIAZIDE, MORPHINE, AND SERTRALINE. SOCIAL HISTORY: No recent tobacco, alcohol, or drugs. She is a senior living resident. FAMILY HISTORY: Noncontributory. REVIEW OF SYSTEMS: A comprehensive 12-point review of systems was conducted via the daughter is present at bedside and is only positive for those signs and symptoms present in the history of present illness. PHYSICAL EXAMINATION: VITAL SIGNS: Temperature of 97.0, blood pressure is 126/67, pulse of 83, respirations are 12, and O2 sat is 98% on an FiO2 60%. GENERAL: The patient is a well-developed and chronically ill-appearing female, in no acute distress. HEENT: Tracheostomy is intact attached to the ventilator. CARDIOVASCULAR: Regular rate and rhythm. LUNGS: With occasional rhonchi at the bases. ABDOMEN: Soft, nontender, and obese habitus. Intact G-tube in the epigastrium, but no skin breakdown. EXTREMITIES: No clubbing or cyanosis. There is some edema of the left upper extremities. RECTAL: Deferred. LAB AND IMAGING: WBC initially of 10.6, up to 18.2 today; hemoglobin yesterday was 6.9, after transfusion is 8.7; MCV is 100; and platelet count is 246. INR is 1.2. Creatinine is 3.6, on dialysis. Iron is 10, percent saturation is 7. Liver enzymes show mildly elevated alkaline phosphatase of 120. Troponin is mildly elevated to 0.95. Amylase and lipase are normal. IMPRESSION: 1. Anemia, recurrent. Could be multifactorial. Could be from chronic kidney disease, anemia of chronic disease, or GI blood loss. Endoscopic workup done recently from upper endoscopy and colonoscopy were essentially negative. There may be a component of small bowel bleeding. 2. End-stage renal disease, hemodialysis dependent. 3. Vent-dependent respiratory failure, status post tracheostomy. 4. Dysphagia with G-tube insertion. RECOMMENDATIONS: 1. Monitor hemoglobin, transfuse as necessary. 2. Consider small bowel series and bleeding scan if the patient rebleeds or has further drop in hemoglobin. 3. G-tube feedings to be continued at goal rate as tolerated. 4. Protonix. Thank you, Dr. Edd Barth for involving us in the care of your patient. If you have any further questions, please call us. JOB# [id number]
[2017-08-03] MEDS ORDERED: Magnesium Hydroxide (MOM) 30 mL UDC GT PRN (14:14)
[2017-08-03] MEDS ORDERED: Fleet Enema 135 mL RC PRN (14:14)
[2017-08-03] MEDS ORDERED: INSULIN ASPART SLIDING SCALE 100 UNITS/ML UNIT SUBQ SCH ×2 (14:15→18:00)
--- NOTE | 2017-08-03 14:34 | Consultation ---
DATE OF CONSULTATION: 08/03/2017 INCOMPLETE DICTATION REFERRING PHYSICIAN: Dr. Barth. Thank you very much for this consultation. HISTORY OF PRESENT ILLNESS: This is a 76-year-old female known to me from previous admissions, who presented with hypotension, respiratory distress, and anemia. The patient has history of renal failure and on dialysis is being admitted a couple of times in the last few weeks for anemia and hypotension and some other issues. The patient has G-tube feeding, tracheostomy, and she is placed on pressors. Blood transfusion is being initiated. The patient appears to be doing okay. DICTATION ENDS HERE. JOB# [id number]
[2017-08-03] MEDS: Fluconazole 200mg/100mL 200 MG/100 ML BAG IV SCH (14:37)
--- NOTE | 2017-08-03 14:53 | Consultation ---
DATE OF CONSULTATION: HISTORY OF PRESENT ILLNESS: This is a 76-year-old female presented to the Emergency Room with hypertension, anemia, respiratory distress, was placed on a full ventilator support. The patient has history of renal failure, has been admitted a couple of times for anemia in the past few weeks. The patient has a tracheostomy and usually off the ventilator, now she is placed on the ventilator, transfuse blood, and on pressors. Improved a little bit, blood pressure is stabilizing, heart rate continues to fluctuate. The patient's other past medical history renal failure. SOCIAL HISTORY: history of COPD, smoking in the past. PHYSICAL EXAMINATION: GENERAL: Intubated, sedated, poorly responsive. VITAL SIGNS: Temperature is 97.0, pulse is 79, respirations 18, blood pressure is 114/38, and saturation is 98%. HEENT: Atraumatic, normocephalic. Pupils react to light and accommodation. Ears, nose and throat normal. NECK: Supple. No JVD. CHEST: There is rhonchi in bases, fair air entry bilaterally. CARDIOVASCULAR: Regular rate and rhythm. ABDOMEN: Soft. EXTREMITIES: A 1+ edema. LABORATORY DATA: WBC is 18.2, hemoglobin 8.7 and 26.4, and platelets is 250. ABGs: pH 7.42, pCO2 of 37, pO2 is 204, bicarbonate is 24. Sodium 136, potassium 3.7, BUN 62, and creatinine 3.6. IMPRESSION: This is a 76-year-old female with multiorgan failure, has chronic renal failure, chronic respiratory failure on ventilator, hypotensive, anemic with some bradycardia as well. PLAN: 1. Continue ventilator support, adequate saturation and ventilation with the ventilator as per recent ABGs. 2. Blood transfusion. 3. Cardiac evaluation might benefit from dopamine drip to improve the heart rate until she stabilizes. Overall prognosis poor. Discussed with her at bedside. Thank you very much for this consultation. JOB# [id number] SUNSHINE
--- NOTE | 2017-08-03 17:46 | Consultation ---
DATE OF CONSULTATION: 08/03/2017 ATTENDING PHYSICIAN: Dr. Barth The patient was placed in intensive care unit at [facility], date 08/03/2017, time around 11:30 a.m. REASON FOR CONSULTATION: Evaluation of the patient for dialysis and the patient needs to be balanced. HISTORY OF PRESENT ILLNESS: The patient is in multiple medical problems, which include but not limited to; 1. Respiratory failure, on a ventilatory support in the ICU. 2. Gastritis. 3. Obesity. 4. Past history of hypertension. The patient had presented, not able to give any history. She is not a very obese, lying in the bed. The patient also has respiratory problem for which the patient is on albuterol. Also, cardiac problem for which the patient is on Cardizem. Anxiety, the patient at present on antibiotics. They suspect the patient has cellulitis in the left arm where she does have the shunt, which is markedly swollen, difficult to use, although bruit can be heard, but cannot be palpated. Clinical examination, the heart rate 120 per minute, blood pressure in the range of 100s and diastolic around 50s. The patient is here because of respiratory distress. The patient has been also hypotensive, has pleural effusion, anemia, and respiratory failure. I came here and examined the patient, examined the shunt. Shunt is markedly swollen, cannot be used for dialysis in my opinion in spite of the bruit. The patient has also bruising, has multiple other skin lesions ____. The patient is morbidly obese. Examined also distant breathing because of the obesity. Abdomen is very large. Shunt in the left arm examined. The patient is already on multiple antibiotics. Discussed with Dr. Sun, who is the vascular surgeon and gave my opinion and suggested that maybe a good idea to put in a dialysis access in the form of catheter, which can be utilized until the shunt area becomes much less swollen and can be utilized also. IMPRESSION: 1. Cellulitis and marked swelling around the dialysis shunt. 2. Chronic renal failure, on dialysis. 3. Respiratory failure. 4. Hypotension, probably due to septic shock. 5. Anemia. 6. Dysphagia. Once the dialysis access is put in, new one, then plan to dialyze. Chemistries reviewed. Hemoglobin earlier was 6.9, yesterday. Chemistries today revealed some increase in BUN and creatinine compared to yesterday, but not drastically. [facility]# [id number]
[2017-08-03] MEDS ORDERED: Vancomycin HCl 1.5 GM in Sodium Chloride 0.9% 500 ML IV ONE (18:00)
[2017-08-03] MEDS ORDERED: Atorvastatin Calcium 10 MG TAB GT SCH (21:00)
[2017-08-04] MEDS: Albuterol/Ipratropium Neb 3 ML AERS HHN SCH ×6 (03:24→22:12)
--- NOTE | 2017-08-04 04:04 | Consultation ---
DATE OF CONSULTATION: 08/02/2017 HISTORY OF PRESENT ILLNESS: This 76-year-old female was seen and examined at the courtesy of Dr. Barth. The patient was admitted to the Emergency Room. She was sent to Emergency Room from a custodial facility with shortness of breath. She was evaluated in the Emergency Room and then admitted. She was found to have atrial fibrillation with rapid ventricular response, also had hypotension. Some cultures were drawn. Blood cultures reported as gram-negative rods. She was also found to be anemic. Blood transfusions were given. She has history of hypertension, history of end-stage renal disease, history of dysphagia. 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 Sometimes she will have atrial fib with a very fast heart rate 130-140 and then slowed down to heart rate of 30 with sinus rhythm with no proper history available from the patient. The patient is on ventilator. The patient has chronic tracheostomy done. PAST MEDICAL HISTORY, SOCIAL HISTORY AND FAMILY HISTORY: Not available from the patient. REVIEW OF SYSTEMS: Not available from the patient. PHYSICAL EXAMINATION: VITAL SIGNS: At present heart rate is about 110, blood pressure is 98/56. SKIN: Normal. HEAD: Normocephalic. EYES: Conjunctivae were pink. There is no icterus in the eyes. Pupils are reacting to light. NECK: There was no increased jugular venous distention, no thyromegaly, no lymphadenopathy. Carotids equal on both sides. CHEST: Bilaterally symmetrical, moved well by respiration. Respiratory movements equal both sides. Trachea is central. There is note to percussion. Breath sound, diminished air entry at the bases with rales and rhonchi. CARDIOVASCULAR SYSTEM: PMI not well localized and no positional thrill. No parasternal heave. S1 normal, S2 physiologic. There was no S3. No rub. ABDOMEN: Soft, no tenderness, no rigidity, no guarding and no organomegaly. Bowel sounds normal. EXTREMITIES: No edema. No calf tenderness. Peripheral pulses diminished. LABORATORY DATA: Blood cultures as mentioned above showed gram-negative rods. Troponin was 0.95. Sodium 136, potassium 3.7, chloride 99, CO2 of 23.3, BUN is 62, creatinine 3.6, glucose 298. CBC with WBC 18.2, hemoglobin 8.7, hematocrit 26.4. Blood gases revealed pH of 3.42, PCO2 37, PO2 204. Hemoglobin on admission was 6.4. WBC count was 10.6 on admission. Magnesium 2.9, hemoglobin A1c 7.7. Lactic acid 1.97. BNP 1120.0. Chest x-ray revealed reexpansion of the left lung, CHF, bilateral pleural effusion and infiltrates, cardiomegaly. IMPRESSION: Hypotension, septic shock, gram-negative bacteremia, atrial fibrillation with rapid ventricular response, congestive heart failure on the basis of elevated BNP, sick sinus syndrome with tachybrady syndrome, anemia, status post transfusion, hyperlipidemia, end-stage renal disease, hemodialysis, dysphagia. Given the present management to get echocardiogram to get lipid profile as well as a TSH. The patient should be on some beta manuel if the pulmonary status is stable. Also the patient should be on a statins and BEVERLEY inhibitor, so as to keep hematocrit above 30 to continue IV Levophed. Once patient is stable, she will be evaluated for the possibility of pacemaker. Dr. Pauline Sun will be following the patient now. Thank you. JOB# [id number]
[2017-08-04] MEDS: INSULIN ASPART SLIDING SCALE 100 UNITS/ML UNIT SUBQ SCH ×3 (06:12→17:37)
[2017-08-04 06:55] LABS: % EOSINOPHILS 1.5 % (0.0-5.0); % LYMPHOCYTES 8.8 % (20.0-50.0); % MONOCYTES 7.1 % (2.0-10.0); % NEUTROPHILS 82.6 % (40.0-80.0); EOSINOPHILE ABSOLUTE 0.2 Th/cmm (0.1-0.4); HEMOGLOBIN 9.1 gm/dL (12-16); LYMPHOCYTE ABSOLUTE 1.2 Th/cmm (1.5-3.0); MEAN CELL VOLUME 94.8 fl (81-100); MEAN CORPUSCULAR HEMOGLOBIN 32.1 pg (27.0-31.0); MEAN CORPUSCULAR HGB CONC 33.9 pg (28.0-36.0); MEAN PLATELET VOLUME 10.2 fl; NEUTROPHILE ABSOLUTE 11.8 Th/cmm (1.8-8.0); PLATELET COUNT 218 Th/cmm (150-400); RED BLOOD COUNT 2.85 Mil/cmm (3.80-5.20); RED CELL DISTRIBUTION WIDTH 17.8 % (11.5-20.0)
[2017-08-04 07:05] LABS: WHITE BLOOD COUNT 14.2 Th/cmm (4.8-10.8)
[2017-08-04 07:23] LABS: ANION GAP 15.2 (7.0-16.0); BUN - UREA NITROGEN 71 mg/dL (7-25); CALCIUM SERUM 8.8 mg/dL (8.6-10.3); CHLORIDE 100 mEq/L (98-107); CHOLESTEROL 55 mg/dL (<200); CREATININE - SERUM 3.8 mg/dL (0.6-1.2); GLUCOSE 315 mg/dL (70-105); HDL -HIGH DENSITY LIPOPROTEIN 13 mg/dL (23-92); POTASSIUM SERUM 3.2 mEq/L (3.5-5.1); SODIUM SERUM 136 mEq/L (136-145); TRIGLYCERIDES 132 mg/dL (<150)
[2017-08-04] MEDS: Chlorhexidine Gluconate 0.12% 15mL Mouthwash MM SCH ×2 (08:00→20:50)
--- NOTE | 2017-08-04 08:40 | General Progress Note ---
Subjective - Review of Systems Service Date: 08/04/17 Events since last encounter: unable to advance guidewire into right subclavian\ check patency of veins Objective - Results Result Diagrams: 08/04/17 06:30 08/04/17 06:30 Recent Labs: Laboratory Last Values WBC 14.2 Th/cmm (4.8-10.8) H D 08/04/17 06:30 RBC 2.85 Mil/cmm (3.80-5.20) L 08/04/17 06:30 Hgb 9.1 gm/dL (12-16) L 08/04/17 06:30 Hct 27.0 % (41.0-60) L 08/04/17 06:30 MCV 94.8 fl (81-100) 08/04/17 06:30 MCH 32.1 pg (27.0-31.0) H 08/04/17 06:30 MCHC Differential 33.9 pg (28.0-36.0) 08/04/17 06:30 RDW 17.8 % (11.5-20.0) 08/04/17 06:30 Plt Count 218 Th/cmm (150-400) 08/04/17 06:30 MPV 10.2 fl 08/04/17 06:30 Neutrophils % 82.6 % (40.0-80.0) H 08/04/17 06:30 Band Neutrophils % 20 % (0-10) H 08/02/17 15:37 Lymphocytes % 8.8 % (20.0-50.0) L 08/04/17 06:30 Monocytes % 7.1 % (2.0-10.0) 08/04/17 06:30 Eosinophils % 1.5 % (0.0-5.0) 08/04/17 06:30 Basophils % 0.0 % (0.0-2.0) 08/04/17 06:30 Neutrophils (Manual) 72 % (40-80) 08/02/17 15:37 Lymphocytes 4 % (20-50) L 08/02/17 15:37 Monocytes 2 % (2-10) 08/02/17 15:37 Eosinophils 2 % (0-5) 08/02/17 15:37 Basophils 0 % (0-3) 08/02/17 15:37 Hypochromia 1+ 08/02/17 15:37 Platelet Estimate ADEQUATE (NORMAL) 08/02/17 15:37 Platelet Morphology NORMAL (NORMAL) 08/02/17 15:37 Crenated Cell 2+ 08/02/17 15:37 RBC Morph Micro Appear ABNORMAL (NORMAL) 08/02/17 15:37 PT 12.9 SECONDS (9.5-11.5) H 08/02/17 13:58 INR 1.23 (0.5-1.4) 08/02/17 13:58 PTT (Actin FS) 33.6 SECONDS (26.0-38.0) 08/02/17 13:58 Specimen Source Arterial 08/03/17 08:58 Sample Site Right Radial 08/03/17 08:58 pH 7.42 (7.35-7.45) 08/03/17 08:58 pCO2 37.0 mmHg (35.0-45.0) 08/03/17 08:58 pO2 204.0 mmHg (80.0-100.0) H 08/03/17 08:58 HCO3 24.8 mEq/L (20.0-26.0) 08/03/17 08:58 Base Excess -0.2 mEq/L (-3.0-3.0) 08/03/17 08:58 O2 Saturation 100.0 % (92.0-100.0) 08/03/17 08:58 Rhett Test Positive 08/03/17 08:58 Vent Rate 12 08/03/17 08:58 Inspired O2 60 08/03/17 08:58 Tidal Volume 450 08/03/17 08:58 PEEP 5 08/03/17 08:58 Pressure (ins/psv/peep) NA 08/03/17 08:58 Critical Value LZHANG 08/03/17 08:58 Sodium 136 mEq/L (136-145) 08/04/17 06:30 Potassium 3.2 mEq/L (3.5-5.1) L 08/04/17 06:30 Chloride 100 mEq/L (98-107) 08/04/17 06:30 Carbon Dioxide 24.0 mEq/L (21.0-31.0) 08/04/17 06:30 Anion Gap 15.2 (7.0-16.0) 08/04/17 06:30 BUN 71 mg/dL (7-25) H 08/04/17 06:30 Creatinine 3.8 mg/dL (0.6-1.2) H 08/04/17 06:30 Est GFR ( Amer) TNP 08/04/17 06:30 Est GFR (Non-Af Amer) TNP 08/04/17 06:30 BUN/Creatinine Ratio 18.7 08/04/17 06:30 Glucose 315 mg/dL (70-105) H 08/04/17 06:30 POC Glucose 281 MG/DL (70 - 105) H 08/04/17 06:09 Hemoglobin A1c % 7.7 % (4.0-6.0) H 08/02/17 15:37 Whole Bld Lactic Acid 1.97 mmol/L (0.60-1.99) 08/02/17 13:49 Calcium 8.8 mg/dL (8.6-10.3) 08/04/17 06:30 Magnesium 2.9 mg/dL (1.9-2.7) H 08/02/17 14:40 Iron 10 ug/dL (27-139) L 08/02/17 13:56 TIBC 135 ug/dL (250-450) L 08/02/17 13:56 Iron Saturation 7 % (15-55) L 08/02/17 13:56 Unsaturated IBC 125 ug/dL (118-369) 08/02/17 13:56 Total Bilirubin 0.4 mg/dL (0.3-1.0) 08/02/17 13:57 Direct Bilirubin 0.09 mg/dL (0.0-0.2) 08/02/17 13:57 AST 26 U/L (13-39) 08/02/17 13:57 ALT 15 U/L (7-52) 08/02/17 13:57 Alkaline Phosphatase 120 U/L (34-104) H 08/02/17 13:57 Troponin I 1.16 ng/mL (0.01-0.05) H* D 08/04/17 06:30 B-Natriuretic Peptide 1120.0 pg/mL (5.0-100.0) H 08/02/17 14:40 Total Protein 5.9 gm/dL (6.0-8.3) L 08/02/17 13:57 Albumin 3.0 gm/dL (3.7-5.3) L 08/02/17 13:57 Globulin 2.9 gm/dL 08/02/17 13:57 Albumin/Globulin Ratio 1.0 (1.0-1.8) 08/02/17 13:57 Triglycerides 132 mg/dL (<150) 08/04/17 06:30 Cholesterol 55 mg/dL (<200) 08/04/17 06:30 LDL Cholesterol Direct 16 mg/dL (75-193) L 08/04/17 06:30 HDL Cholesterol 13 mg/dL (23-92) L 08/04/17 06:30 Amylase 12 U/L (29-103) L 08/02/17 13:43 Lipase 4 U/L (11-82) L 08/02/17 13:43 TSH 3.74 uIU/ml (0.34-5.60) 08/04/17 06:30 Stool Occult Blood POSITIVE (NEGATIVE) H 08/03/17 17:50 Blood Type A POSITIVE 08/02/17 20:54 Antibody Screen POSITIVE 08/02/17 20:54 Crossmatch See Detail 08/02/17 20:54 - Physical Exam Vitals and I&O: Vital Signs Temp 98.9 F 08/04/17 06:00 Pulse 77 08/04/17 07:45 Resp 14 08/04/17 06:00 BP 114/30 08/04/17 07:45 Pulse Ox 100 08/04/17 06:42 Intake & Output 08/03/17 08/04/17 08/04/17 18:59 06:59 18:59 Intake Total 790 810.82 Balance 790 810.82 Weight (lbs) 87.6 kg Intake: Intake, IV Amount 250 810.82 Colistimethate 80 mg In 100 Sodium Chloride 0.9% 100 ml @ 100 mls/hr IV Q36H [facility] Rx#:[id number] Fluconazole 200mg/100mL 100 200 mg In 100 ml @ 100 mls/hr IV Q24HR [facility] Rx#: [id number] Meropenem 500 mg In 100 Sodium Chloride 0.9% 100 ml @ 100 mls/hr IV Q24H [facility] Rx#:[id number] Norepinephrine 4 mg In 210.82 Dextrose 5% 250 ml @ Per Protocol IV TITR PRN Rx#: [id number] Piperacillin Sodium/ 50 Tazobact 2.25 gm In Sodium Chloride 0.9% 50 ml @ 100 mls/hr IV 0600, 1400,2200 [facility] Rx#: [id number] Vancomycin HCl 1.5 gm In 500 Sodium Chloride 0.9% 500 ml @ 250 mls/hr IV 1800 [facility] Rx#:[id number] Tube Feeding 210 Other 330 Other: # Bowel Movements 1 Stool Characteristics Soft Soft Black Liquid Black Active Medications: Current Medications Acetaminophen (Tylenol 650mg/20.3ml Suspension) 650 mg GT DAILY [facility] Stop: 10/03/17 08:59 Albuterol/Ipratropium (Duoneb Neb) 3 ml HHN Q4HRT [facility] Stop: 10/02/17 10:59 Last Admin: 08/04/17 06:42 Dose: 3 ml Ascorbic Acid (Vitamin C) 500 mg PO DAILY [facility] Stop: 10/03/17 08:59 Aspirin (Aspirin Chewable) 81 mg GT DAILY [facility] Stop: 10/03/17 08:59 Atorvastatin Calcium (Lipitor) 40 mg GT HS [facility] PRN Reason: Protocol Stop: 10/02/17 20:59 Last Admin: 08/03/17 20:19 Dose: 40 mg Bisacodyl (Dulcolax 10 Mg Supp) 10 mg RC Q72HR PRN PRN Reason: IF MOM INEFFECTIVE Stop: 10/02/17 14:13 Bisacodyl (Dulcolax 10 Mg Supp) 10 mg RC PRN PRN PRN Reason: IF MOM INEFFECTIVE Stop: 10/02/17 14:13 Chlorhexidine Gluconate (Peridex) 15 ml MM 0800,2000 [facility] Stop: 10/02/17 07:59 Last Admin: 08/03/17 19:10 Dose: 15 ml Cholecalciferol (Vitamin D3) 1,000 iu GT DAILY [facility] Stop: 10/03/17 08:59 Diltiazem HCl (Cardizem) 5 mg IVP Q4H PRN PRN Reason: INCREASE HEART RATE Stop: 10/01/17 21:59 Last Admin: 08/03/17 01:38 Dose: 5 mg Docusate Sodium (Colace) 100 mg PO DAILY [facility] Stop: 10/03/17 08:59 Heparin Sodium (Porcine) (Heparin) 5,000 units HD UD [facility] Stop: 08/05/17 08:59 Fluconazole (Diflucan) 200 mg in 100 mls @ 100 mls/hr IV Q24HR [facility] Stop: 10/02/17 14:59 Last Infusion: 08/03/17 15:40 Dose: Infused Meropenem 500 mg/ Sodium (Chloride) 100 mls @ 100 mls/hr IV Q24H [facility] Stop: 10/02/17 12:59 Last Infusion: 08/03/17 14:00 Dose: Infused Dopamine HCl/Dextrose (Dopamine) 400 mg in 250 mls @ 0 mls/hr IV TITR PRN; Protocol; Per Protocol PRN Reason: BP MAINTENANCE (PER PROTOCOL) Stop: 10/02/17 07:47 Norepinephrine Bitartrate 4 mg (/ Dextrose) 254 mls @ 0 mls/hr IV TITR PRN; Protocol; Per Protocol PRN Reason: BP MAINTENANCE (PER PROTOCOL) Stop: 10/02/17 08:31 Last Admin: 08/03/17 23:47 Dose: 4 mcg/min, 15.24 mls/hr Colistimethate Sodium 80 mg/ (Sodium Chloride) 100 mls @ 100 mls/hr IV Q36H [facility] Stop: 10/02/17 20:59 Last Infusion: 08/03/17 21:20 Dose: Infused Insulin Aspart (Novolog Insulin Sliding Scale) 0 units SUBQ Q6HR [facility] PRN Reason: Protocol Stop: 10/02/17 00:00 Last Admin: 08/04/17 06:12 Dose: 6 units Lorazepam (Ativan) 1 mg IVP Q2HR PRN; Protocol PRN Reason: Restlessness Stop: 10/01/17 21:18 Last Admin: 08/04/17 01:05 Dose: 1 mg Magnesium Hydroxide (Milk Of Magnesia) 30 ml GT Q72H PRN PRN Reason: NO BM FOR THREE DAYS Stop: 10/02/17 14:13 Mirtazapine (Remeron) 15 mg GT HS [facility] PRN Reason: Protocol Stop: 10/02/17 20:59 Last Admin: 08/03/17 20:19 Dose: 15 mg Miscellaneous (Vancomycin Iv Per Pharmacy) 1 ea PRN PRN PRN Reason: PROTOCOL Stop: 10/01/17 20:42 Miscellaneous (Zosyn Iv Per Pharmacy) 1 ea PRN PRN PRN Reason: PROTOCOL Stop: 10/01/17 20:42 Multivitamins/Vitamin C (Theragran) 1 tab PO DAILY [facility] Stop: 10/03/17 08:59 Ondansetron HCl (Zofran Odt) 4 mg PO Q6HR PRN PRN Reason: Nausea / Vomiting Stop: 10/02/17 14:13 Pantoprazole Sodium (Protonix) 40 mg IVP DAILY [facility] Stop: 10/02/17 08:59 Last Admin: 08/03/17 08:34 Dose: 40 mg Simethicone (Mylicon) 80 mg GT Q6H PRN PRN Reason: GAS PAIN Stop: 10/02/17 14:13 Sodium Phosphate (Fleet Enema) 118 ml RC PRN PRN PRN Reason: IF MOM/DULCOLAX INEFFECTIVE Stop: 10/02/17 14:13 Temazepam (Restoril) 15 mg GT HS PRN; Protocol PRN Reason: Insomnia Stop: 10/02/17 14:13 Last Admin: 08/03/17 20:19 Dose: 15 mg Zinc Sulfate (Zinc Sulfate) 220 mg GT DAILY [facility] Stop: 10/03/17 08:59 - Procedures Procedures: Procedures Procedure Code Date BLOOD TRANSFUSION SERVICE 08646 08/02/17 EXCISION OF STOMACH, ENDO, DIAGN [id number] 07/10/17 INSPECTION OF LOWER INTESTINAL TRACT, ENDO [id number] 07/10/17 PERFORMANCE OF URINARY FILTRATION, <6 HRS/DAY [id number] 07/10/17 RESPIRATORY VENTILATION, 24-96 CONSECUTIVE HOURS [id number] 08/02/17 TRANSFUSE NONAUT RED BLOOD CELLS IN PERIPH VEIN, PERC [id number] 08/02/17
[2017-08-04] MEDS ORDERED: [UNRECOGNIZED DRUG - OTHER] GT SCH (09:00)
[2017-08-04] MEDS ORDERED: Pantoprazole 40 mg/Packet GT SCH (09:00)
[2017-08-04] MEDS ORDERED: Non-Formulary Item 1 EA (Docusate Sodium 100 MG) GT SCH (09:00)
[2017-08-04] MEDS ORDERED: Non-Formulary Item 1 EA (Ascorbic Acid 500 MG) GT SCH (09:00)
[2017-08-04] MEDS ORDERED: BIOTIN GT SCH (09:00)
[2017-08-04] MEDS ORDERED: VIT B CMPLX GT SCH (09:00)
[2017-08-04] MEDS: Multivitamin Tab PO SCH (09:18)
[2017-08-04] MEDS: Aspirin 81mg Chewable Tab GT SCH (09:18)
[2017-08-04] MEDS ORDERED: Potassium Chloride Elixir 20 mEq /15 mL UDC GT ONE (11:00)
--- NOTE | 2017-08-04 11:18 | Diagnostic Imaging Report ---
Right upper extremity Doppler venous ultrasound exam HISTORY: Pain, venous occlusion Sonographic sector images were obtained through the venous system the right arm. Associated Doppler data was obtained. The exam is compromised and limited due to the presence of a PICC line and overlying dressings. There is patency of the right internal jugular, subclavian, axilla, brachial, basilic, and cephalic veins. No definite thrombus. Compressibility could not be well evaluated due to the PICC line and overlying dressings. IMPRESSION: 1. Limited exam due to the presence of a PICC line and overlying dressings 2. No definite venous occlusion identified.
--- NOTE | 2017-08-04 11:20 | Diagnostic Imaging Report ---
Left upper extremity Doppler arterial ultrasound exam HISTORY: Occlusion, AV shunt Sonographic sector images were obtained through the arterial system of the left arm and about the region of the patient's AV shunt. There is patency of the left subclavian, axillary, brachial, radial, and ulnar arteries. Patency seen through the region of the AV shunt. IMPRESSION: 1. No evidence of arterial occlusion.
--- NOTE | 2017-08-04 11:20 | Diagnostic Imaging Report ---
Left upper extremity Doppler venous ultrasound exam HISTORY: AV shunt, occlusion Sonographic sector images were obtained through the venous system of the left arm and about the region of the patient's AV shunt. The exam demonstrates patency of the left internal jugular, subclavian, axillary, brachial, basilic, and cephalic veins. No definite thrombus. Limited evaluation compressibility at this time. There appears to be patency of the AV shunt. IMPRESSION: 1. No definite evidence of venous occlusion with patency through the region of the AV shunt.
--- NOTE | 2017-08-04 11:28 | Diagnostic Imaging Report ---
CT scan abdomen and pelvis intravenous contrast HISTORY: Pain, abscess Total DLP equals 972 CTDI equals 17.4 Axial sections were obtained from the mid chest down to a level of the pubic symphysis. Sections through the chest demonstrate a moderate to large left pleural effusion with underlying compressed lung. A smaller right pleural effusion is also noted with underlying compressive lung. There is extensive abnormal soft tissue density noted about the left breast that extends along the left lateral chest wall. Etiology is indeterminate. Clinical correlation and correlation with patient history needed. There is a diminished hepatic size. No focal lesions. Gastrostomy tube is seen. Spleen is not visualized. Kidneys appear small/atrophic bilaterally. Small amount of ascites seen. There is obscuration of the abdominal wall along the left anterior portion of the lower abdomen and pelvis. Again, extensive abnormal density is seen through the subcutaneous tissues. Etiology uncertain. Inflammatory or neoplastic change cannot be excluded. Clinical correlation is needed. No discrete abnormal loculated fluid collections are seen. No definite abnormal masses or fluid collections seen within the pelvis. Atherosclerotic calcination seen through the aorta. Degenerative changes noted throughout the spine. IMPRESSION: 1. Extensive abnormal density throughout the left breast region that extends down throughout the subcutaneous tissues along the lateral aspect of the left abdomen and pelvis. Etiology uncertain. Findings may be associated with inflammatory or neoplastic change. Clinical correlation and correlation with patient history is needed. 2. Small amount of ascites 3. Small/atrophic kidneys 4. Bilateral pleural effusions (left greater than right). Additional cardiomegaly with evidence of severe coronary artery and atherosclerotic vascular changes.
--- NOTE | 2017-08-04 12:28 | Internal Medicine Prog Note ---
Internal Medicine Subjective - Subjective Service Date: 08/04/17 (on levo 4mcg/min and dopamine) Patient seen and examined:: with staff Patient is:: awake, non-verbal Per staff patient has:: tolerating meds Internal Medicine Objective - Results Result Diagrams: 08/04/17 06:30 08/04/17 06:30 Recent Labs: Laboratory Last Values WBC 14.2 Th/cmm (4.8-10.8) H D 08/04/17 06:30 RBC 2.85 Mil/cmm (3.80-5.20) L 08/04/17 06:30 Hgb 9.1 gm/dL (12-16) L 08/04/17 06:30 Hct 27.0 % (41.0-60) L 08/04/17 06:30 MCV 94.8 fl (81-100) 08/04/17 06:30 MCH 32.1 pg (27.0-31.0) H 08/04/17 06:30 MCHC Differential 33.9 pg (28.0-36.0) 08/04/17 06:30 RDW 17.8 % (11.5-20.0) 08/04/17 06:30 Plt Count 218 Th/cmm (150-400) 08/04/17 06:30 MPV 10.2 fl 08/04/17 06:30 Neutrophils % 82.6 % (40.0-80.0) H 08/04/17 06:30 Band Neutrophils % 20 % (0-10) H 08/02/17 15:37 Lymphocytes % 8.8 % (20.0-50.0) L 08/04/17 06:30 Monocytes % 7.1 % (2.0-10.0) 08/04/17 06:30 Eosinophils % 1.5 % (0.0-5.0) 08/04/17 06:30 Basophils % 0.0 % (0.0-2.0) 08/04/17 06:30 Neutrophils (Manual) 72 % (40-80) 08/02/17 15:37 Lymphocytes 4 % (20-50) L 08/02/17 15:37 Monocytes 2 % (2-10) 08/02/17 15:37 Eosinophils 2 % (0-5) 08/02/17 15:37 Basophils 0 % (0-3) 08/02/17 15:37 Hypochromia 1+ 08/02/17 15:37 Platelet Estimate ADEQUATE (NORMAL) 08/02/17 15:37 Platelet Morphology NORMAL (NORMAL) 08/02/17 15:37 Crenated Cell 2+ 08/02/17 15:37 RBC Morph Micro Appear ABNORMAL (NORMAL) 08/02/17 15:37 PT 12.9 SECONDS (9.5-11.5) H 08/02/17 13:58 INR 1.23 (0.5-1.4) 08/02/17 13:58 PTT (Actin FS) 33.6 SECONDS (26.0-38.0) 08/02/17 13:58 Specimen Source Arterial 08/03/17 08:58 Sample Site Right Radial 08/03/17 08:58 pH 7.42 (7.35-7.45) 08/03/17 08:58 pCO2 37.0 mmHg (35.0-45.0) 08/03/17 08:58 pO2 204.0 mmHg (80.0-100.0) H 08/03/17 08:58 HCO3 24.8 mEq/L (20.0-26.0) 08/03/17 08:58 Base Excess -0.2 mEq/L (-3.0-3.0) 08/03/17 08:58 O2 Saturation 100.0 % (92.0-100.0) 08/03/17 08:58 Rhett Test Positive 08/03/17 08:58 Vent Rate 12 08/03/17 08:58 Inspired O2 60 08/03/17 08:58 Tidal Volume 450 08/03/17 08:58 PEEP 5 08/03/17 08:58 Pressure (ins/psv/peep) NA 08/03/17 08:58 Critical Value LZHANG 08/03/17 08:58 Sodium 136 mEq/L (136-145) 08/04/17 06:30 Potassium 3.2 mEq/L (3.5-5.1) L 08/04/17 06:30 Chloride 100 mEq/L (98-107) 08/04/17 06:30 Carbon Dioxide 24.0 mEq/L (21.0-31.0) 08/04/17 06:30 Anion Gap 15.2 (7.0-16.0) 08/04/17 06:30 BUN 71 mg/dL (7-25) H 08/04/17 06:30 Creatinine 3.8 mg/dL (0.6-1.2) H 08/04/17 06:30 Est GFR ( Amer) TNP 08/04/17 06:30 Est GFR (Non-Af Amer) TNP 08/04/17 06:30 BUN/Creatinine Ratio 18.7 08/04/17 06:30 Glucose 315 mg/dL (70-105) H 08/04/17 06:30 POC Glucose 263 MG/DL (70 - 105) H 08/04/17 11:25 Hemoglobin A1c % 7.7 % (4.0-6.0) H 08/02/17 15:37 Whole Bld Lactic Acid 1.97 mmol/L (0.60-1.99) 08/02/17 13:49 Calcium 8.8 mg/dL (8.6-10.3) 08/04/17 06:30 Magnesium 2.9 mg/dL (1.9-2.7) H 08/02/17 14:40 Iron 10 ug/dL (27-139) L 08/02/17 13:56 TIBC 135 ug/dL (250-450) L 08/02/17 13:56 Iron Saturation 7 % (15-55) L 08/02/17 13:56 Unsaturated IBC 125 ug/dL (118-369) 08/02/17 13:56 Total Bilirubin 0.4 mg/dL (0.3-1.0) 08/02/17 13:57 Direct Bilirubin 0.09 mg/dL (0.0-0.2) 08/02/17 13:57 AST 26 U/L (13-39) 08/02/17 13:57 ALT 15 U/L (7-52) 08/02/17 13:57 Alkaline Phosphatase 120 U/L (34-104) H 08/02/17 13:57 Troponin I 1.16 ng/mL (0.01-0.05) H* D 08/04/17 06:30 B-Natriuretic Peptide 1120.0 pg/mL (5.0-100.0) H 08/02/17 14:40 Total Protein 5.9 gm/dL (6.0-8.3) L 08/02/17 13:57 Albumin 3.0 gm/dL (3.7-5.3) L 08/02/17 13:57 Globulin 2.9 gm/dL 08/02/17 13:57 Albumin/Globulin Ratio 1.0 (1.0-1.8) 08/02/17 13:57 Triglycerides 132 mg/dL (<150) 08/04/17 06:30 Cholesterol 55 mg/dL (<200) 08/04/17 06:30 LDL Cholesterol Direct 16 mg/dL (75-193) L 08/04/17 06:30 HDL Cholesterol 13 mg/dL (23-92) L 08/04/17 06:30 Amylase 12 U/L (29-103) L 08/02/17 13:43 Lipase 4 U/L (11-82) L 08/02/17 13:43 TSH 3.74 uIU/ml (0.34-5.60) 08/04/17 06:30 Stool Occult Blood POSITIVE (NEGATIVE) H 08/03/17 17:50 Blood Type A POSITIVE 08/02/17 20:54 Antibody Screen POSITIVE 08/02/17 20:54 Crossmatch See Detail 08/02/17 20:54 - Physical Exam Vitals and I&O: Vital Signs Temp 98.7 F 08/04/17 12:00 Pulse 70 08/04/17 12:00 Resp 16 08/04/17 12:00 BP 123/29 08/04/17 12:00 Pulse Ox 100 08/04/17 12:00 Intake & Output 08/03/17 08/04/17 08/04/17 18:59 06:59 18:59 Intake Total 790 810.82 Balance 790 810.82 Weight (lbs) 193 lb 2 oz Intake: Intake, IV Amount 250 810.82 Colistimethate 80 mg In 100 Sodium Chloride 0.9% 100 ml @ 100 mls/hr IV Q36H [facility] Rx#:[id number] Fluconazole 200mg/100mL 100 200 mg In 100 ml @ 100 mls/hr IV Q24HR [facility] Rx#: [id number] Meropenem 500 mg In 100 Sodium Chloride 0.9% 100 ml @ 100 mls/hr IV Q24H [facility] Rx#:[id number] Norepinephrine 4 mg In 210.82 Dextrose 5% 250 ml @ Per Protocol IV TITR PRN Rx#: [id number] Piperacillin Sodium/ 50 Tazobact 2.25 gm In Sodium Chloride 0.9% 50 ml @ 100 mls/hr IV 0600, 1400,2200 [facility] Rx#: [id number] Vancomycin HCl 1.5 gm In 500 Sodium Chloride 0.9% 500 ml @ 250 mls/hr IV 1800 [facility] Rx#:[id number] Tube Feeding 210 Other 330 Other: # Bowel Movements 1 Stool Characteristics Soft Soft Soft Black Liquid Liquid Black Black Active Medications: Current Medications Acetaminophen (Tylenol 650mg/20.3ml Suspension) 650 mg GT DAILY [facility] Stop: 10/03/17 08:59 Last Admin: 08/04/17 09:18 Dose: 650 mg Albuterol/Ipratropium (Duoneb Neb) 3 ml HHN Q4HRT [facility] Stop: 10/02/17 10:59 Last Admin: 08/04/17 11:25 Dose: 3 ml Ascorbic Acid (Vitamin C) 500 mg PO DAILY [facility] Stop: 10/03/17 08:59 Last Admin: 08/04/17 09:18 Dose: 500 mg Aspirin (Aspirin Chewable) 81 mg GT DAILY [facility] Stop: 10/03/17 08:59 Last Admin: 08/04/17 09:18 Dose: 81 mg Atorvastatin Calcium (Lipitor) 40 mg GT HS [facility] PRN Reason: Protocol Stop: 10/02/17 20:59 Last Admin: 08/03/17 20:19 Dose: 40 mg Bisacodyl (Dulcolax 10 Mg Supp) 10 mg RC Q72HR PRN PRN Reason: IF MOM INEFFECTIVE Stop: 10/02/17 14:13 Bisacodyl (Dulcolax 10 Mg Supp) 10 mg RC PRN PRN PRN Reason: IF MOM INEFFECTIVE Stop: 10/02/17 14:13 Chlorhexidine Gluconate (Peridex) 15 ml MM 0800,1999 [facility] Stop: 10/02/17 07:59 Last Admin: 08/04/17 08:00 Dose: 15 ml Cholecalciferol (Vitamin D3) 1,000 iu GT DAILY [facility] Stop: 10/03/17 08:59 Last Admin: 08/04/17 09:18 Dose: 1,000 iu Diltiazem HCl (Cardizem) 5 mg IVP Q4H PRN PRN Reason: INCREASE HEART RATE Stop: 10/01/17 21:59 Last Admin: 08/03/17 01:38 Dose: 5 mg Docusate Sodium (Colace) 100 mg PO DAILY [facility] Stop: 10/03/17 08:59 Last Admin: 08/04/17 09:18 Dose: 100 mg Heparin Sodium (Porcine) (Heparin) 5,000 units HD UD [facility] Stop: 08/05/17 08:59 Last Admin: 08/04/17 09:19 Dose: Not Given Fluconazole (Diflucan) 200 mg in 100 mls @ 100 mls/hr IV Q24HR [facility] Stop: 10/02/17 14:59 Last Infusion: 08/03/17 15:40 Dose: Infused Meropenem 500 mg/ Sodium (Chloride) 100 mls @ 100 mls/hr IV Q24H [facility] Stop: 10/02/17 12:59 Last Infusion: 08/03/17 14:00 Dose: Infused Dopamine HCl/Dextrose (Dopamine) 400 mg in 250 mls @ 0 mls/hr IV TITR PRN; Protocol; Per Protocol PRN Reason: BP MAINTENANCE (PER PROTOCOL) Stop: 10/02/17 07:47 Norepinephrine Bitartrate 4 mg (/ Dextrose) 254 mls @ 0 mls/hr IV TITR PRN; Protocol; Per Protocol PRN Reason: BP MAINTENANCE (PER PROTOCOL) Stop: 10/02/17 08:31 Last Admin: 08/03/17 23:47 Dose: 4 mcg/min, 15.24 mls/hr Colistimethate Sodium 80 mg/ (Sodium Chloride) 100 mls @ 100 mls/hr IV Q36H [facility] Stop: 10/02/17 20:59 Last Infusion: 08/03/17 21:20 Dose: Infused Insulin Aspart (Novolog Insulin Sliding Scale) 0 units SUBQ Q6HR FOUZIA PRN Reason: Protocol Stop: 10/02/17 00:00 Last Admin: 08/04/17 11:30 Dose: 6 units Lorazepam (Ativan) 1 mg IVP Q2HR PRN; Protocol PRN Reason: Restlessness Stop: 10/01/17 21:18 Last Admin: 08/04/17 01:05 Dose: 1 mg Magnesium Hydroxide (Milk Of Magnesia) 30 ml GT Q72H PRN PRN Reason: NO BM FOR THREE DAYS Stop: 10/02/17 14:13 Mirtazapine (Remeron) 15 mg GT HS FOUZIA PRN Reason: Protocol Stop: 10/02/17 20:59 Last Admin: 08/03/17 20:19 Dose: 15 mg Miscellaneous (Vancomycin Iv Per Pharmacy) 1 ea PRN PRN PRN Reason: PROTOCOL Stop: 10/01/17 20:42 Miscellaneous (Zosyn Iv Per Pharmacy) 1 ea PRN PRN PRN Reason: PROTOCOL Stop: 10/01/17 20:42 Multivitamins/Vitamin C (Theragran) 1 tab PO DAILY FOUZIA Stop: 10/03/17 08:59 Last Admin: 08/04/17 09:18 Dose: 1 tab Ondansetron HCl (Zofran Odt) 4 mg PO Q6HR PRN PRN Reason: Nausea / Vomiting Stop: 10/02/17 14:13 Pantoprazole Sodium (Protonix) 40 mg IVP DAILY FOUZIA Stop: 10/02/17 08:59 Last Admin: 08/04/17 09:18 Dose: 40 mg Simethicone (Mylicon) 80 mg GT Q6H PRN PRN Reason: GAS PAIN Stop: 10/02/17 14:13 Sodium Phosphate (Fleet Enema) 118 ml RC PRN PRN PRN Reason: IF MOM/DULCOLAX INEFFECTIVE Stop: 10/02/17 14:13 Temazepam (Restoril) 15 mg GT HS PRN; Protocol PRN Reason: Insomnia Stop: 10/02/17 14:13 Last Admin: 08/03/17 20:19 Dose: 15 mg Zinc Sulfate (Zinc Sulfate) 220 mg GT DAILY [facility] Stop: 10/03/17 08:59 Last Admin: 08/04/17 09:18 Dose: 220 mg General: weak, obtunded HEENT: NC/AT, PERRLA Neck: Supple Lungs: ronchi Abdomen: soft, non-tender, non-distended, +GT Neurological: unable to follow command - Procedures Procedures: Procedures Procedure Code Date BLOOD TRANSFUSION SERVICE 22333 08/02/17 EXCISION OF STOMACH, ENDO, DIAGN [id number] 07/10/17 INSPECTION OF LOWER INTESTINAL TRACT, ENDO [id number] 07/10/17 PERFORMANCE OF URINARY FILTRATION, <6 HRS/DAY [id number] 07/10/17 RESPIRATORY VENTILATION, 24-96 CONSECUTIVE HOURS [id number] 08/02/17 TRANSFUSE NONAUT RED BLOOD CELLS IN PERIPH VEIN, PERC [id number] 08/02/17 Internal Medicine Assmt/Plan - Assessment Assessment: Assessment: 1. Septic shock. 2. Gram-negative negative bacteremia. 3. Pneumonia. 4. CK D stage V pneumatosis. 5. Diabetes mellitus type 2. 6. Obesity. 7. hypotension - Plan Plan: titrate levophed as per protocol cbc.bmp in am continue ivabx as per ID continue current orders
[2017-08-04] MEDS: Meropenem 500 MG in Sodium Chloride 0.9% 100 ML IV SCH (13:17)
--- NOTE | 2017-08-04 14:14 | General Progress Note ---
Subjective - Review of Systems Service Date: 08/04/17 Subjective: stuporous, on vent Objective - Results Result Diagrams: 08/04/17 06:30 08/04/17 06:30 Recent Labs: Laboratory Last Values WBC 14.2 Th/cmm (4.8-10.8) H D 08/04/17 06:30 RBC 2.85 Mil/cmm (3.80-5.20) L 08/04/17 06:30 Hgb 9.1 gm/dL (12-16) L 08/04/17 06:30 Hct 27.0 % (41.0-60) L 08/04/17 06:30 MCV 94.8 fl (81-100) 08/04/17 06:30 MCH 32.1 pg (27.0-31.0) H 08/04/17 06:30 MCHC Differential 33.9 pg (28.0-36.0) 08/04/17 06:30 RDW 17.8 % (11.5-20.0) 08/04/17 06:30 Plt Count 218 Th/cmm (150-400) 08/04/17 06:30 MPV 10.2 fl 08/04/17 06:30 Neutrophils % 82.6 % (40.0-80.0) H 08/04/17 06:30 Band Neutrophils % 20 % (0-10) H 08/02/17 15:37 Lymphocytes % 8.8 % (20.0-50.0) L 08/04/17 06:30 Monocytes % 7.1 % (2.0-10.0) 08/04/17 06:30 Eosinophils % 1.5 % (0.0-5.0) 08/04/17 06:30 Basophils % 0.0 % (0.0-2.0) 08/04/17 06:30 Neutrophils (Manual) 72 % (40-80) 08/02/17 15:37 Lymphocytes 4 % (20-50) L 08/02/17 15:37 Monocytes 2 % (2-10) 08/02/17 15:37 Eosinophils 2 % (0-5) 08/02/17 15:37 Basophils 0 % (0-3) 08/02/17 15:37 Hypochromia 1+ 08/02/17 15:37 Platelet Estimate ADEQUATE (NORMAL) 08/02/17 15:37 Platelet Morphology NORMAL (NORMAL) 08/02/17 15:37 Crenated Cell 2+ 08/02/17 15:37 RBC Morph Micro Appear ABNORMAL (NORMAL) 08/02/17 15:37 PT 12.9 SECONDS (9.5-11.5) H 08/02/17 13:58 INR 1.23 (0.5-1.4) 08/02/17 13:58 PTT (Actin FS) 33.6 SECONDS (26.0-38.0) 08/02/17 13:58 Specimen Source Arterial 08/03/17 08:58 Sample Site Right Radial 08/03/17 08:58 pH 7.42 (7.35-7.45) 08/03/17 08:58 pCO2 37.0 mmHg (35.0-45.0) 08/03/17 08:58 pO2 204.0 mmHg (80.0-100.0) H 08/03/17 08:58 HCO3 24.8 mEq/L (20.0-26.0) 08/03/17 08:58 Base Excess -0.2 mEq/L (-3.0-3.0) 08/03/17 08:58 O2 Saturation 100.0 % (92.0-100.0) 08/03/17 08:58 Rhett Test Positive 08/03/17 08:58 Vent Rate 12 08/03/17 08:58 Inspired O2 60 08/03/17 08:58 Tidal Volume 450 08/03/17 08:58 PEEP 5 08/03/17 08:58 Pressure (ins/psv/peep) NA 08/03/17 08:58 Critical Value LZHANG 08/03/17 08:58 Sodium 136 mEq/L (136-145) 08/04/17 06:30 Potassium 3.2 mEq/L (3.5-5.1) L 08/04/17 06:30 Chloride 100 mEq/L (98-107) 08/04/17 06:30 Carbon Dioxide 24.0 mEq/L (21.0-31.0) 08/04/17 06:30 Anion Gap 15.2 (7.0-16.0) 08/04/17 06:30 BUN 71 mg/dL (7-25) H 08/04/17 06:30 Creatinine 3.8 mg/dL (0.6-1.2) H 08/04/17 06:30 Est GFR ( Amer) TNP 08/04/17 06:30 Est GFR (Non-Af Amer) TNP 08/04/17 06:30 BUN/Creatinine Ratio 18.7 08/04/17 06:30 Glucose 315 mg/dL (70-105) H 08/04/17 06:30 POC Glucose 263 MG/DL (70 - 105) H 08/04/17 11:25 Hemoglobin A1c % 7.7 % (4.0-6.0) H 08/02/17 15:37 Whole Bld Lactic Acid 1.97 mmol/L (0.60-1.99) 08/02/17 13:49 Calcium 8.8 mg/dL (8.6-10.3) 08/04/17 06:30 Magnesium 2.9 mg/dL (1.9-2.7) H 08/02/17 14:40 Iron 10 ug/dL (27-139) L 08/02/17 13:56 TIBC 135 ug/dL (250-450) L 08/02/17 13:56 Iron Saturation 7 % (15-55) L 08/02/17 13:56 Unsaturated IBC 125 ug/dL (118-369) 08/02/17 13:56 Total Bilirubin 0.4 mg/dL (0.3-1.0) 08/02/17 13:57 Direct Bilirubin 0.09 mg/dL (0.0-0.2) 08/02/17 13:57 AST 26 U/L (13-39) 08/02/17 13:57 ALT 15 U/L (7-52) 08/02/17 13:57 Alkaline Phosphatase 120 U/L (34-104) H 08/02/17 13:57 Troponin I 1.16 ng/mL (0.01-0.05) H* D 08/04/17 06:30 B-Natriuretic Peptide 1120.0 pg/mL (5.0-100.0) H 08/02/17 14:40 Total Protein 5.9 gm/dL (6.0-8.3) L 08/02/17 13:57 Albumin 3.0 gm/dL (3.7-5.3) L 08/02/17 13:57 Globulin 2.9 gm/dL 08/02/17 13:57 Albumin/Globulin Ratio 1.0 (1.0-1.8) 08/02/17 13:57 Triglycerides 132 mg/dL (<150) 08/04/17 06:30 Cholesterol 55 mg/dL (<200) 08/04/17 06:30 LDL Cholesterol Direct 16 mg/dL (75-193) L 08/04/17 06:30 HDL Cholesterol 13 mg/dL (23-92) L 08/04/17 06:30 Amylase 12 U/L (29-103) L 08/02/17 13:43 Lipase 4 U/L (11-82) L 08/02/17 13:43 TSH 3.74 uIU/ml (0.34-5.60) 08/04/17 06:30 Stool Occult Blood POSITIVE (NEGATIVE) H 08/03/17 17:50 Blood Type A POSITIVE 08/02/17 20:54 Antibody Screen POSITIVE 08/02/17 20:54 Crossmatch See Detail 08/02/17 20:54 - Physical Exam Vitals and I&O: Vital Signs Temp 98.7 F 08/04/17 12:00 Pulse 75 08/04/17 13:00 Resp 16 08/04/17 12:00 BP 123/29 08/04/17 12:00 Pulse Ox 100 08/04/17 13:00 Intake & Output 08/03/17 08/04/17 08/04/17 18:59 06:59 18:59 Intake Total 790 810.82 Balance 790 810.82 Weight (lbs) 87.6 kg Intake: Intake, IV Amount 250 810.82 Colistimethate 80 mg In 100 Sodium Chloride 0.9% 100 ml @ 100 mls/hr IV Q36H [facility] Rx#:[id number] Fluconazole 200mg/100mL 100 200 mg In 100 ml @ 100 mls/hr IV Q24HR [facility] Rx#: [id number] Meropenem 500 mg In 100 Sodium Chloride 0.9% 100 ml @ 100 mls/hr IV Q24H [facility] Rx#:[id number] Norepinephrine 4 mg In 210.82 Dextrose 5% 250 ml @ Per Protocol IV TITR PRN Rx#: [id number] Piperacillin Sodium/ 50 Tazobact 2.25 gm In Sodium Chloride 0.9% 50 ml @ 100 mls/hr IV 0600, 1400,2200 [facility] Rx#: [id number] Vancomycin HCl 1.5 gm In 500 Sodium Chloride 0.9% 500 ml @ 250 mls/hr IV 1800 [facility] Rx#:[id number] Tube Feeding 210 Other 330 Other: # Bowel Movements 1 Stool Characteristics Soft Soft Soft Black Liquid Liquid Black Black Active Medications: Current Medications Acetaminophen (Tylenol 650mg/20.3ml Suspension) 650 mg GT DAILY [facility] Stop: 10/03/17 08:59 Last Admin: 08/04/17 09:18 Dose: 650 mg Albuterol/Ipratropium (Duoneb Neb) 3 ml HHN Q4HRT [facility] Stop: 10/02/17 10:59 Last Admin: 08/04/17 11:25 Dose: 3 ml Ascorbic Acid (Vitamin C) 500 mg PO DAILY [facility] Stop: 10/03/17 08:59 Last Admin: 08/04/17 09:18 Dose: 500 mg Aspirin (Aspirin Chewable) 81 mg GT DAILY [facility] Stop: 10/03/17 08:59 Last Admin: 08/04/17 09:18 Dose: 81 mg Atorvastatin Calcium (Lipitor) 40 mg GT HS [facility] PRN Reason: Protocol Stop: 10/02/17 20:59 Last Admin: 08/03/17 20:19 Dose: 40 mg Bisacodyl (Dulcolax 10 Mg Supp) 10 mg RC Q72HR PRN PRN Reason: IF MOM INEFFECTIVE Stop: 10/02/17 14:13 Bisacodyl (Dulcolax 10 Mg Supp) 10 mg RC PRN PRN PRN Reason: IF MOM INEFFECTIVE Stop: 10/02/17 14:13 Chlorhexidine Gluconate (Peridex) 15 ml MM 0800,2000 [facility] Stop: 10/02/17 07:59 Last Admin: 08/04/17 08:00 Dose: 15 ml Cholecalciferol (Vitamin D3) 1,000 iu GT DAILY [facility] Stop: 10/03/17 08:59 Last Admin: 08/04/17 09:18 Dose: 1,000 iu Diltiazem HCl (Cardizem) 5 mg IVP Q4H PRN PRN Reason: INCREASE HEART RATE Stop: 10/01/17 21:59 Last Admin: 08/03/17 01:38 Dose: 5 mg Docusate Sodium (Colace) 100 mg PO DAILY [facility] Stop: 10/03/17 08:59 Last Admin: 08/04/17 09:18 Dose: 100 mg Heparin Sodium (Porcine) (Heparin) 5,000 units HD UD [facility] Stop: 08/05/17 08:59 Last Admin: 08/04/17 09:19 Dose: Not Given Fluconazole (Diflucan) 200 mg in 100 mls @ 100 mls/hr IV Q24HR [facility] Stop: 10/02/17 14:59 Last Infusion: 08/03/17 15:40 Dose: Infused Meropenem 500 mg/ Sodium (Chloride) 100 mls @ 100 mls/hr IV Q24H [facility] Stop: 10/02/17 12:59 Last Admin: 08/04/17 13:17 Dose: 100 mls/hr Dopamine HCl/Dextrose (Dopamine) 400 mg in 250 mls @ 0 mls/hr IV TITR PRN; Protocol; Per Protocol PRN Reason: BP MAINTENANCE (PER PROTOCOL) Stop: 10/02/17 07:47 Norepinephrine Bitartrate 4 mg (/ Dextrose) 254 mls @ 0 mls/hr IV TITR PRN; Protocol; Per Protocol PRN Reason: BP MAINTENANCE (PER PROTOCOL) Stop: 10/02/17 08:31 Last Admin: 08/03/17 23:47 Dose: 4 mcg/min, 15.24 mls/hr Colistimethate Sodium 80 mg/ (Sodium Chloride) 100 mls @ 100 mls/hr IV Q36H [facility] Stop: 10/02/17 20:59 Last Infusion: 08/03/17 21:20 Dose: Infused Insulin Aspart (Novolog Insulin Sliding Scale) 0 units SUBQ Q6HR [facility] PRN Reason: Protocol Stop: 10/02/17 00:00 Last Admin: 08/04/17 11:30 Dose: 6 units Lorazepam (Ativan) 1 mg IVP Q2HR PRN; Protocol PRN Reason: Restlessness Stop: 10/01/17 21:18 Last Admin: 08/04/17 01:05 Dose: 1 mg Magnesium Hydroxide (Milk Of Magnesia) 30 ml GT Q72H PRN PRN Reason: NO BM FOR THREE DAYS Stop: 10/02/17 14:13 Mirtazapine (Remeron) 15 mg GT HS [facility] PRN Reason: Protocol Stop: 10/02/17 20:59 Last Admin: 08/03/17 20:19 Dose: 15 mg Miscellaneous (Vancomycin Iv Per Pharmacy) 1 ea MC PRN PRN PRN Reason: PROTOCOL Stop: 10/01/17 20:42 Miscellaneous (Zosyn Iv Per Pharmacy) 1 ea PRN PRN PRN Reason: PROTOCOL Stop: 10/01/17 20:42 Multivitamins/Vitamin C (Theragran) 1 tab PO DAILY [facility] Stop: 10/03/17 08:59 Last Admin: 08/04/17 09:18 Dose: 1 tab Ondansetron HCl (Zofran Odt) 4 mg PO Q6HR PRN PRN Reason: Nausea / Vomiting Stop: 10/02/17 14:13 Pantoprazole Sodium (Protonix) 40 mg IVP DAILY [facility] Stop: 10/02/17 08:59 Last Admin: 08/04/17 09:18 Dose: 40 mg Simethicone (Mylicon) 80 mg GT Q6H PRN PRN Reason: GAS PAIN Stop: 10/02/17 14:13 Sodium Phosphate (Fleet Enema) 118 ml RC PRN PRN PRN Reason: IF MOM/DULCOLAX INEFFECTIVE Stop: 10/02/17 14:13 Temazepam (Restoril) 15 mg GT HS PRN; Protocol PRN Reason: Insomnia Stop: 10/02/17 14:13 Last Admin: 08/03/17 20:19 Dose: 15 mg Zinc Sulfate (Zinc Sulfate) 220 mg GT DAILY [facility] Stop: 10/03/17 08:59 Last Admin: 08/04/17 09:18 Dose: 220 mg General: Mild distress HEENT: Atraumatic, Mucous membr. moist/pink Neck: Supple, +2 carotid pulse wo bruit Cardiovascular: Regular rate, Normal S1, Normal S2 Lungs: Other (few rhonchi) Abdomen: Bowel sounds, Soft, Distended Extremities: Edema (upper wxtrmities) Neurological: Sensation intact Skin: Rash, Other (erythema, eccymosis) Psych/Mental Status: Mood NL - Procedures Procedures: Procedures Procedure Code Date BLOOD TRANSFUSION SERVICE 78055 08/02/17 EXCISION OF STOMACH, ENDO, DIAGN [id number] 07/10/17 INSPECTION OF LOWER INTESTINAL TRACT, ENDO [id number] 07/10/17 PERFORMANCE OF URINARY FILTRATION, <6 HRS/DAY [id number] 07/10/17 RESPIRATORY VENTILATION, 24-96 CONSECUTIVE HOURS [id number] 08/02/17 TRANSFUSE NONAUT RED BLOOD CELLS IN PERIPH VEIN, PERC [id number] 08/02/17 Assessment/Plan - Assessment Assessment: 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/L UE Edema, Cellulitis Shock Sepsis RF on Vent Acute on Chronic Decomp CHF G (-) Septicemia - Plan Plan: Lab - Result Diagrams 08/04/17 06:30 08/04/17 06:30 Current Medications Acetaminophen (Tylenol 650mg/20.3ml Suspension) 650 mg GT DAILY [facility] Stop: 10/03/17 08:59 Last Admin: 08/04/17 09:18 Dose: 650 mg Albuterol/Ipratropium (Duoneb Neb) 3 ml HHN Q4HRT [facility] Stop: 10/02/17 10:59 Last Admin: 08/04/17 11:25 Dose: 3 ml Ascorbic Acid (Vitamin C) 500 mg PO DAILY [facility] Stop: 10/03/17 08:59 Last Admin: 08/04/17 09:18 Dose: 500 mg Aspirin (Aspirin Chewable) 81 mg GT DAILY [facility] Stop: 10/03/17 08:59 Last Admin: 08/04/17 09:18 Dose: 81 mg Atorvastatin Calcium (Lipitor) 40 mg GT HS [facility] PRN Reason: Protocol Stop: 10/02/17 20:59 Last Admin: 08/03/17 20:19 Dose: 40 mg Bisacodyl (Dulcolax 10 Mg Supp) 10 mg RC Q72HR PRN PRN Reason: IF MOM INEFFECTIVE Stop: 10/02/17 14:13 Bisacodyl (Dulcolax 10 Mg Supp) 10 mg RC PRN PRN PRN Reason: IF MOM INEFFECTIVE Stop: 10/02/17 14:13 Chlorhexidine Gluconate (Peridex) 15 ml MM 0800,2000 [facility] Stop: 10/02/17 07:59 Last Admin: 08/04/17 08:00 Dose: 15 ml Cholecalciferol (Vitamin D3) 1,000 iu GT DAILY [facility] Stop: 10/03/17 08:59 Last Admin: 08/04/17 09:18 Dose: 1,000 iu Diltiazem HCl (Cardizem) 5 mg IVP Q4H PRN PRN Reason: INCREASE HEART RATE Stop: 10/01/17 21:59 Last Admin: 08/03/17 01:38 Dose: 5 mg Docusate Sodium (Colace) 100 mg PO DAILY [facility] Stop: 10/03/17 08:59 Last Admin: 08/04/17 09:18 Dose: 100 mg Heparin Sodium (Porcine) (Heparin) 5,000 units HD UD [facility] Stop: 08/05/17 08:59 Last Admin: 08/04/17 09:19 Dose: Not Given Fluconazole (Diflucan) 200 mg in 100 mls @ 100 mls/hr IV Q24HR [facility] Stop: 10/02/17 14:59 Last Infusion: 08/03/17 15:40 Dose: Infused Meropenem 500 mg/ Sodium (Chloride) 100 mls @ 100 mls/hr IV Q24H [facility] Stop: 10/02/17 12:59 Last Admin: 08/04/17 13:17 Dose: 100 mls/hr Dopamine HCl/Dextrose (Dopamine) 400 mg in 250 mls @ 0 mls/hr IV TITR PRN; Protocol; Per Protocol PRN Reason: BP MAINTENANCE (PER PROTOCOL) Stop: 10/02/17 07:47 Norepinephrine Bitartrate 4 mg (/ Dextrose) 254 mls @ 0 mls/hr IV TITR PRN; Protocol; Per Protocol PRN Reason: BP MAINTENANCE (PER PROTOCOL) Stop: 10/02/17 08:31 Last Admin: 08/03/17 23:47 Dose: 4 mcg/min, 15.24 mls/hr Colistimethate Sodium 80 mg/ (Sodium Chloride) 100 mls @ 100 mls/hr IV Q36H [facility] Stop: 10/02/17 20:59 Last Infusion: 08/03/17 21:20 Dose: Infused Insulin Aspart (Novolog Insulin Sliding Scale) 0 units SUBQ Q6HR [facility] PRN Reason: Protocol Stop: 10/02/17 00:00 Last Admin: 08/04/17 11:30 Dose: 6 units Lorazepam (Ativan) 1 mg IVP Q2HR PRN; Protocol PRN Reason: Restlessness Stop: 10/01/17 21:18 Last Admin: 08/04/17 01:05 Dose: 1 mg Magnesium Hydroxide (Milk Of Magnesia) 30 ml GT Q72H PRN PRN Reason: NO BM FOR THREE DAYS Stop: 10/02/17 14:13 Mirtazapine (Remeron) 15 mg GT HS [facility] PRN Reason: Protocol Stop: 10/02/17 20:59 Last Admin: 08/03/17 20:19 Dose: 15 mg Miscellaneous (Vancomycin Iv Per Pharmacy) 1 ea [facility] PRN PRN PRN Reason: PROTOCOL Stop: 10/01/17 20:42 Miscellaneous (Zosyn Iv Per Pharmacy) 1 ea PRN PRN PRN Reason: PROTOCOL Stop: 10/01/17 20:42 Multivitamins/Vitamin C (Theragran) 1 tab PO DAILY [facility] Stop: 10/03/17 08:59 Last Admin: 08/04/17 09:18 Dose: 1 tab Ondansetron HCl (Zofran Odt) 4 mg PO Q6HR PRN PRN Reason: Nausea / Vomiting Stop: 10/02/17 14:13 Pantoprazole Sodium (Protonix) 40 mg IVP DAILY [facility] Stop: 10/02/17 08:59 Last Admin: 08/04/17 09:18 Dose: 40 mg Simethicone (Mylicon) 80 mg GT Q6H PRN PRN Reason: GAS PAIN Stop: 10/02/17 14:13 Sodium Phosphate (Fleet Enema) 118 ml RC PRN PRN PRN Reason: IF MOM/DULCOLAX INEFFECTIVE Stop: 10/02/17 14:13 Temazepam (Restoril) 15 mg GT HS PRN; Protocol PRN Reason: Insomnia Stop: 10/02/17 14:13 Last Admin: 08/03/17 20:19 Dose: 15 mg Zinc Sulfate (Zinc Sulfate) 220 mg GT DAILY [facility] Stop: 10/03/17 08:59 Last Admin: 08/04/17 09:18 Dose: 220 mg Lab - Result Diagrams 08/04/17 06:30 08/04/17 06:30 attempted placement of line but unsuccessful Venous & Arterial duplex scans were negative for DVT or clots consider perma cath if possible replace K f/u electrolytes, cbc, CXR
--- NOTE | 2017-08-04 15:20 | Cardiology ---
08/04/[address] Barth PROCEDURE: Echocardiogram. M-MODE ECHOCARDIOGRAM: Mitral valve, anterior leaflet of mitral valve shows normal excursion, EF velocity. Posterior leaflet of mitral valve shows normal excursion. Left ventricular posterior wall shows increased thickness, normal excursion. Interventricular septum shows increased thickness, normal excursion, hypertrophy of the left ventricle, ejection fraction 60%. Left atrium enlarged, 4.4 cm. Aortic root shows normal dimension, normal excursion of aortic leaflets. CONCLUSION: Hypertrophy of the left ventricle, left atrial enlargement, ejection fraction 60%. 2D ECHO: Long axis view showed normal sized left ventricle with hypertrophy of the left ventricle. Left atrium enlarged. Aortic root showed normal dimension, normal excursion of aortic leaflets. Short axis view of mitral valve normal. Short axis view of aortic valve normal. Apical four chamber view showed normal sized left ventricle with hypertrophy of the left ventricle. Left atrium enlarged. Right ventricular cavity, right atrium enlarged. Ejection fraction 60%. CONCLUSION: Hypertrophy of the left ventricle. Left atrial enlargement, right atrial enlargement, ejection fraction 60%. Doppler study shows right ventricular systolic pressure 48 mmHg with mild pulmonary hypertension, mild mitral regurgitation, mild tricuspid regurgitation. [facility]# [id number]
[2017-08-04] MEDS: Fluconazole 200mg/100mL 200 MG/100 ML BAG IV SCH (15:45)
[2017-08-05] MEDS: INSULIN ASPART SLIDING SCALE 100 UNITS/ML UNIT SUBQ SCH ×5 (00:07→23:40)
[2017-08-05] MEDS: Albuterol/Ipratropium Neb 3 ML AERS HHN SCH ×6 (02:16→22:46)
[2017-08-05 06:35] LABS: MEAN PLATELET VOLUME 10.5 fl
[2017-08-05 06:38] LABS: HEMATOCRIT 26.7 % (41.0-60); MEAN CELL VOLUME 92.3 fl (81-100); MEAN CORPUSCULAR HEMOGLOBIN 31.2 pg (27.0-31.0); MEAN CORPUSCULAR HGB CONC 33.8 pg (28.0-36.0); PLATELET COUNT 207 Th/cmm (150-400); RED BLOOD COUNT 2.89 Mil/cmm (3.80-5.20); RED CELL DISTRIBUTION WIDTH 17.9 % (11.5-20.0)
[2017-08-05 06:43] LABS: MANUAL DIFF REQUIRED? YES; WHITE BLOOD COUNT 16.1 Th/cmm (4.8-10.8)
[2017-08-05 06:55] LABS: ANION GAP 14.1 (7.0-16.0); BUN - UREA NITROGEN 77 mg/dL (7-25); CALCIUM SERUM 8.6 mg/dL (8.6-10.3); CARBON DIOXIDE 21.5 mEq/L (21.0-31.0); CHLORIDE 102 mEq/L (98-107); GLUCOSE 216 mg/dL (70-105); POTASSIUM SERUM 3.6 mEq/L (3.5-5.1); SODIUM SERUM 134 mEq/L (136-145)
[2017-08-05 06:56] LABS: CREATININE - SERUM 4.2 mg/dL (0.6-1.2)
[2017-08-05 07:07] LABS: BAND NEUTROPHILE 8 % (0-10); EOSINOPHIL 5 % (0-5); LYMPHOCYTE 2 % (20-50); MONOCYTE 6 % (2-10); NEUTROPHILS 79 % (40-80); PLATELET ESTIMATE ADEQUATE (NORMAL); TOTAL CELLS COUNTED 100
[2017-08-05] MEDS: Multivitamin Tab PO SCH (08:15)
[2017-08-05] MEDS: Aspirin 81mg Chewable Tab GT SCH (08:15)
[2017-08-05] MEDS: Chlorhexidine Gluconate 0.12% 15mL Mouthwash MM SCH ×2 (08:41→19:43)
[2017-08-05] MEDS ORDERED: fentaNYL Citrate 100 mcg/2mL Vial ONE (09:01)
[2017-08-05] MEDS ORDERED: Propofol **SURGERY USE ONLY** 20 ML IV ONE (09:06)
[2017-08-05] MEDS ORDERED: Midazolam 1mg/ml 2 ml vial IV ONE (09:06)
--- NOTE | 2017-08-05 09:50 | Diagnostic Imaging Report ---
Exam: Portable chest x-ray HISTORY: Congestive heart failure. Findings: Portable upright examination of the chest at 0755 hours reviewed and compared to prior study 08/03/2017 demonstrates bilateral pneumonia superimposed effusions. The heart is enlarged. Tracheostomy tube midline. Right-sided PICC line terminates in right axillary vein. Bony thorax is intact IMPRESSION: bilateral pneumonia, superimposed effusions follow-up examination recommended.
--- NOTE | 2017-08-05 10:02 | Infectious Disease Prog Note ---
Infectious Disease Subjective - Review of Systems Service Date: 08/05/17 Subjective: Permacath was tried and failed. Infectious Disease Objective - Results Result Diagrams: 08/05/17 06:15 08/05/17 06:15 Recent Labs: Laboratory Last Values WBC 16.1 Th/cmm (4.8-10.8) H 08/05/17 06:15 RBC 2.89 Mil/cmm (3.80-5.20) L 08/05/17 06:15 Hgb 9.0 gm/dL (12-16) L 08/05/17 06:15 Hct 26.7 % (41.0-60) L 08/05/17 06:15 MCV 92.3 fl (81-100) 08/05/17 06:15 MCH 31.2 pg (27.0-31.0) H 08/05/17 06:15 MCHC Differential 33.8 pg (28.0-36.0) 08/05/17 06:15 RDW 17.9 % (11.5-20.0) 08/05/17 06:15 Plt Count 207 Th/cmm (150-400) 08/05/17 06:15 MPV 10.5 fl 08/05/17 06:15 Neutrophils % 82.6 % (40.0-80.0) H 08/04/17 06:30 Band Neutrophils % 8 % (0-10) 08/05/17 06:15 Lymphocytes % 8.8 % (20.0-50.0) L 08/04/17 06:30 Monocytes % 7.1 % (2.0-10.0) 08/04/17 06:30 Eosinophils % 1.5 % (0.0-5.0) 08/04/17 06:30 Basophils % 0.0 % (0.0-2.0) 08/04/17 06:30 Neutrophils (Manual) 79 % (40-80) 08/05/17 06:15 Lymphocytes 2 % (20-50) L 08/05/17 06:15 Monocytes 6 % (2-10) 08/05/17 06:15 Eosinophils 5 % (0-5) 08/05/17 06:15 Basophils 0 % (0-3) 08/02/17 15:37 Hypochromia 1+ 08/02/17 15:37 Platelet Estimate ADEQUATE (NORMAL) 08/05/17 06:15 Platelet Morphology NORMAL (NORMAL) 08/02/17 15:37 Crenated Cell 2+ 08/02/17 15:37 RBC Morph Micro Appear ABNORMAL (NORMAL) 08/02/17 15:37 PT 12.9 SECONDS (9.5-11.5) H 08/02/17 13:58 INR 1.23 (0.5-1.4) 08/02/17 13:58 PTT (Actin FS) 33.6 SECONDS (26.0-38.0) 08/02/17 13:58 Specimen Source Arterial 08/03/17 08:58 Sample Site Right Radial 08/03/17 08:58 pH 7.42 (7.35-7.45) 08/03/17 08:58 pCO2 37.0 mmHg (35.0-45.0) 08/03/17 08:58 pO2 204.0 mmHg (80.0-100.0) H 08/03/17 08:58 HCO3 24.8 mEq/L (20.0-26.0) 08/03/17 08:58 Base Excess -0.2 mEq/L (-3.0-3.0) 08/03/17 08:58 O2 Saturation 100.0 % (92.0-100.0) 08/03/17 08:58 Rhett Test Positive 08/03/17 08:58 Vent Rate 12 08/03/17 08:58 Inspired O2 60 08/03/17 08:58 Tidal Volume 450 08/03/17 08:58 PEEP 5 08/03/17 08:58 Pressure (ins/psv/peep) NA 08/03/17 08:58 Critical Value LZHANG 08/03/17 08:58 Sodium 134 mEq/L (136-145) L 08/05/17 06:15 Potassium 3.6 mEq/L (3.5-5.1) 08/05/17 06:15 Chloride 102 mEq/L (98-107) 08/05/17 06:15 Carbon Dioxide 21.5 mEq/L (21.0-31.0) 08/05/17 06:15 Anion Gap 14.1 (7.0-16.0) 08/05/17 06:15 BUN 77 mg/dL (7-25) H 08/05/17 06:15 Creatinine 4.2 mg/dL (0.6-1.2) H* 08/05/17 06:15 Est GFR ( Amer) TNP 08/05/17 06:15 Est GFR (Non-Af Amer) TNP 08/05/17 06:15 BUN/Creatinine Ratio 18.3 08/05/17 06:15 Glucose 216 mg/dL (70-105) H 08/05/17 06:15 POC Glucose 224 MG/DL (70 - 105) H 08/05/17 07:39 Hemoglobin A1c % 7.7 % (4.0-6.0) H 08/02/17 15:37 Whole Bld Lactic Acid 1.97 mmol/L (0.60-1.99) 08/02/17 13:49 Calcium 8.6 mg/dL (8.6-10.3) 08/05/17 06:15 Magnesium 3.0 mg/dL (1.9-2.7) H 08/05/17 06:15 Iron 10 ug/dL (27-139) L 08/02/17 13:56 TIBC 135 ug/dL (250-450) L 08/02/17 13:56 Iron Saturation 7 % (15-55) L 08/02/17 13:56 Unsaturated IBC 125 ug/dL (118-369) 08/02/17 13:56 Ferritin 588 ng/mL (15-150) H 08/02/17 13:56 Total Bilirubin 0.4 mg/dL (0.3-1.0) 08/02/17 13:57 Direct Bilirubin 0.09 mg/dL (0.0-0.2) 08/02/17 13:57 AST 26 U/L (13-39) 08/02/17 13:57 ALT 15 U/L (7-52) 08/02/17 13:57 Alkaline Phosphatase 120 U/L (34-104) H 08/02/17 13:57 Troponin I 1.16 ng/mL (0.01-0.05) H* D 08/04/17 06:30 B-Natriuretic Peptide 372.0 pg/mL (5.0-100.0) H 08/05/17 06:15 Total Protein 5.9 gm/dL (6.0-8.3) L 08/02/17 13:57 Albumin 3.0 gm/dL (3.7-5.3) L 08/02/17 13:57 Globulin 2.9 gm/dL 08/02/17 13:57 Albumin/Globulin Ratio 1.0 (1.0-1.8) 08/02/17 13:57 Triglycerides 132 mg/dL (<150) 08/04/17 06:30 Cholesterol 55 mg/dL (<200) 08/04/17 06:30 LDL Cholesterol Direct 16 mg/dL (75-193) L 08/04/17 06:30 HDL Cholesterol 13 mg/dL (23-92) L 08/04/17 06:30 Amylase 12 U/L (29-103) L 08/02/17 13:43 Lipase 4 U/L (11-82) L 08/02/17 13:43 TSH 3.74 uIU/ml (0.34-5.60) 08/04/17 06:30 Stool Occult Blood POSITIVE (NEGATIVE) H 08/03/17 17:50 Random Vancomycin 26.2 ug/mL (5.0-40.0) 08/05/17 06:15 Blood Type A POSITIVE 08/02/17 20:54 Antibody Screen POSITIVE 08/02/17 20:54 Crossmatch See Detail 08/02/17 20:54 - Physical Exam Vitals and I&O: Vital Signs Temp 97.8 F 08/05/17 08:00 Pulse 74 08/05/17 08:38 Resp 16 08/05/17 08:00 BP 117/65 08/05/17 08:00 Pulse Ox 100 08/05/17 08:38 Intake & Output 08/04/17 08/05/17 08/05/17 18:59 06:59 18:59 Intake Total 416.662 200 Balance 416.662 200 Weight (lbs) 87.543 kg Intake: Intake, IV Amount 416.662 Fluconazole 200mg/100mL 100 200 mg In 100 ml @ 100 mls/hr IV Q24HR [facility] Rx#: [id number] Meropenem 500 mg In 100 Sodium Chloride 0.9% 100 ml @ 100 mls/hr IV Q24H [facility] Rx#:[id number] Norepinephrine 4 mg In 216.662 Dextrose 5% 250 ml @ Per Protocol IV TITR PRN Rx#: [id number] Other 200 Other: # Bowel Movements 1 Stool Characteristics Soft Soft Liquid Formed Black Black Active Medications: Current Medications Acetaminophen (Tylenol 650mg/20.3ml Suspension) 650 mg GT DAILY [facility] Stop: 10/03/17 08:59 Last Admin: 08/05/17 08:15 Dose: Not Given Albuterol/Ipratropium (Duoneb Neb) 3 ml HHN Q4HRT [facility] Stop: 10/02/17 10:59 Last Admin: 08/05/17 07:07 Dose: 3 ml Ascorbic Acid (Vitamin C) 500 mg PO DAILY [facility] Stop: 10/03/17 08:59 Last Admin: 08/05/17 08:15 Dose: Not Given Aspirin (Aspirin Chewable) 81 mg GT DAILY [facility] Stop: 10/03/17 08:59 Last Admin: 08/05/17 08:15 Dose: Not Given Atorvastatin Calcium (Lipitor) 40 mg GT HS [facility] Stop: 10/03/17 20:59 Last Admin: 08/04/17 20:50 Dose: 40 mg Bisacodyl (Dulcolax 10 Mg Supp) 10 mg RC Q72HR PRN PRN Reason: IF MOM INEFFECTIVE Stop: 10/02/17 14:13 Bisacodyl (Dulcolax 10 Mg Supp) 10 mg RC PRN PRN PRN Reason: IF MOM INEFFECTIVE Stop: 10/02/17 14:13 Chlorhexidine Gluconate (Peridex) 15 ml MM 0800,2000 [facility] Stop: 10/02/17 07:59 Last Admin: 08/05/17 08:41 Dose: 15 ml Cholecalciferol (Vitamin D3) 1,000 iu GT DAILY [facility] Stop: 10/03/17 08:59 Last Admin: 08/05/17 08:15 Dose: Not Given Diltiazem HCl (Cardizem) 5 mg IVP Q4H PRN PRN Reason: INCREASE HEART RATE Stop: 10/01/17 21:59 Last Admin: 08/03/17 01:38 Dose: 5 mg Docusate Sodium (Colace) 100 mg PO DAILY [facility] Stop: 10/03/17 08:59 Last Admin: 08/05/17 08:15 Dose: Not Given Fluconazole (Diflucan) 200 mg in 100 mls @ 100 mls/hr IV Q24HR [facility] Stop: 10/02/17 14:59 Last Infusion: 08/04/17 16:45 Dose: Infused Meropenem 500 mg/ Sodium (Chloride) 100 mls @ 100 mls/hr IV Q24H [facility] Stop: 10/02/17 12:59 Last Infusion: 08/04/17 14:20 Dose: Infused Dopamine HCl/Dextrose (Dopamine) 400 mg in 250 mls @ 0 mls/hr IV TITR PRN; Protocol; Per Protocol PRN Reason: BP MAINTENANCE (PER PROTOCOL) Stop: 10/02/17 07:47 Norepinephrine Bitartrate 4 mg (/ Dextrose) 254 mls @ 0 mls/hr IV TITR PRN; Protocol; Per Protocol PRN Reason: BP MAINTENANCE (PER PROTOCOL) Stop: 10/02/17 08:31 Last Titration: 08/04/17 14:00 Dose: 0 mcg/min, 0 mls/hr Colistimethate Sodium 80 mg/ (Sodium Chloride) 100 mls @ 100 mls/hr IV Q36H [facility] Stop: 10/02/17 20:59 Last Infusion: 08/03/17 21:20 Dose: Infused Insulin Aspart (Novolog Insulin Sliding Scale) 0 units SUBQ Q6HR [facility] PRN Reason: Protocol Stop: 10/02/17 00:00 Last Admin: 08/05/17 08:14 Dose: Not Given Lorazepam (Ativan) 1 mg IVP Q2HR PRN; Protocol PRN Reason: Restlessness Stop: 10/01/17 21:18 Last Admin: 08/04/17 01:05 Dose: 1 mg Magnesium Hydroxide (Milk Of Magnesia) 30 ml GT Q72H PRN PRN Reason: NO BM FOR THREE DAYS Stop: 10/02/17 14:13 Mirtazapine (Remeron) 15 mg GT HS [facility] PRN Reason: Protocol Stop: 10/02/17 20:59 Last Admin: 08/04/17 20:51 Dose: 15 mg Miscellaneous (Vancomycin Iv Per Pharmacy) 1 ea MC PRN PRN PRN Reason: PROTOCOL Stop: 10/01/17 20:42 Miscellaneous (Zosyn Iv Per Pharmacy) 1 ea PRN PRN PRN Reason: PROTOCOL Stop: 10/01/17 20:42 Multivitamins/Vitamin C (Theragran) 1 tab PO DAILY [facility] Stop: 10/03/17 08:59 Last Admin: 08/05/17 08:15 Dose: Not Given Mupirocin (Bactroban Oint) 1 appl NS BID [facility] Stop: 08/09/17 17:01 Ondansetron HCl (Zofran Odt) 4 mg PO Q6HR PRN PRN Reason: Nausea / Vomiting Stop: 10/02/17 14:13 Pantoprazole Sodium (Protonix) 40 mg IVP DAILY [facility] Stop: 10/02/17 08:59 Last Admin: 08/05/17 08:41 Dose: 40 mg Simethicone (Mylicon) 80 mg GT Q6H PRN PRN Reason: GAS PAIN Stop: 10/02/17 14:13 Sodium Phosphate (Fleet Enema) 118 ml RC PRN PRN PRN Reason: IF MOM/DULCOLAX INEFFECTIVE Stop: 10/02/17 14:13 Temazepam (Restoril) 15 mg GT HS PRN; Protocol PRN Reason: Insomnia Stop: 10/02/17 14:13 Last Admin: 08/03/17 20:19 Dose: 15 mg Zinc Sulfate (Zinc Sulfate) 220 mg GT DAILY [facility] Stop: 10/03/17 08:59 Last Admin: 08/05/17 08:15 Dose: Not Given General: no acute distress, well developed, well nourished HEENT: atraumatic, normocephalic, EOMI Neck: supple, no thyromegaly Cardiovascular: S1S2, regular Lungs: clear to auscultation bilaterally, clear to percussion, no crackles Abdomen: soft, no tender, no distended Extremities: no cyanosis, no clubbing, no edema Neurological: awake, alert, oriented - Procedures Procedures: Procedures Procedure Code Date BLOOD TRANSFUSION SERVICE 72278 08/02/17 EXCISION OF STOMACH, ENDO, DIAGN [id number] 07/10/17 INSPECTION OF LOWER INTESTINAL TRACT, ENDO [id number] 07/10/17 PERFORMANCE OF URINARY FILTRATION, <6 HRS/DAY [id number] 07/10/17 RESPIRATORY VENTILATION, 24-96 CONSECUTIVE HOURS [id number] 08/02/17 TRANSFUSE NONAUT RED BLOOD CELLS IN PERIPH VEIN, PERC [id number] 08/02/17 Infectious Disease Assmt/Plan - Assessment Assessment: 1. Septic shock. improving. 2. Gram-negative negative bacteremia. 3. Pneumonia. 4. 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 5. Diabetes mellitus type 2. 6. Obesity. - Plan Plan: Continue colistin and meropenem. Continue diflucan.
--- NOTE | 2017-08-05 10:23 | Diagnostic Imaging Report ---
Fluoroscopy was utilized for facilitation of permacath placement. Please refer to the procedural report for complete details. Note, Perma-Caths insertion was unsuccessful. Total fluoroscopic time was 2 minutes and 13 seconds.
--- NOTE | 2017-08-05 12:44 | Diagnostic Imaging Report ---
Chest portable exam HISTORY: Postop Findings: Portable supine examination of the chest at 1020 reviewed compatible prior study of the same day poorly. The study demonstrates tracheostomy tube unchanged appearance There is evidence for opacification of left apex most likely due to atelectasis pneumonia or effusion There is evidence of for right lower lobe infiltrate and superimposed effusion. Small effusion left base appreciated. The aortic arch calcified. Bony thorax intact Right-sided PICC line terminates in the right axilla. The permacath catheter is not identified on this examination. IMPRESSION: Cardiomegaly. Left apical capping. Right lower lobe pneumonia and effusion. Follow-up examination recommended.
[2017-08-05] MEDS: Fluconazole 200mg/100mL 200 MG/100 ML BAG IV SCH (14:33)
--- NOTE | 2017-08-05 14:49 | General Progress Note ---
Subjective - Review of Systems Service Date: 08/05/17 Subjective: more awake, on vent Objective - Results Result Diagrams: 08/05/17 06:15 08/05/17 06:15 Recent Labs: Laboratory Last Values WBC 16.1 Th/cmm (4.8-10.8) H 08/05/17 06:15 RBC 2.89 Mil/cmm (3.80-5.20) L 08/05/17 06:15 Hgb 9.0 gm/dL (12-16) L 08/05/17 06:15 Hct 26.7 % (41.0-60) L 08/05/17 06:15 MCV 92.3 fl (81-100) 08/05/17 06:15 MCH 31.2 pg (27.0-31.0) H 08/05/17 06:15 MCHC Differential 33.8 pg (28.0-36.0) 08/05/17 06:15 RDW 17.9 % (11.5-20.0) 08/05/17 06:15 Plt Count 207 Th/cmm (150-400) 08/05/17 06:15 MPV 10.5 fl 08/05/17 06:15 Neutrophils % 82.6 % (40.0-80.0) H 08/04/17 06:30 Band Neutrophils % 8 % (0-10) 08/05/17 06:15 Lymphocytes % 8.8 % (20.0-50.0) L 08/04/17 06:30 Monocytes % 7.1 % (2.0-10.0) 08/04/17 06:30 Eosinophils % 1.5 % (0.0-5.0) 08/04/17 06:30 Basophils % 0.0 % (0.0-2.0) 08/04/17 06:30 Neutrophils (Manual) 79 % (40-80) 08/05/17 06:15 Lymphocytes 2 % (20-50) L 08/05/17 06:15 Monocytes 6 % (2-10) 08/05/17 06:15 Eosinophils 5 % (0-5) 08/05/17 06:15 Basophils 0 % (0-3) 08/02/17 15:37 Hypochromia 1+ 08/02/17 15:37 Platelet Estimate ADEQUATE (NORMAL) 02/27/18 06:15 Platelet Morphology NORMAL (NORMAL) 08/02/17 15:37 Crenated Cell 2+ 08/02/17 15:37 RBC Morph Micro Appear ABNORMAL (NORMAL) 08/02/17 15:37 PT 12.9 SECONDS (9.5-11.5) H 08/02/17 13:58 INR 1.23 (0.5-1.4) 08/02/17 13:58 PTT (Actin FS) 33.6 SECONDS (26.0-38.0) 08/02/17 13:58 Specimen Source Arterial 08/03/17 08:58 Sample Site Right Radial 08/03/17 08:58 pH 7.42 (7.35-7.45) 08/03/17 08:58 pCO2 37.0 mmHg (35.0-45.0) 08/03/17 08:58 pO2 204.0 mmHg (80.0-100.0) H 08/03/17 08:58 HCO3 24.8 mEq/L (20.0-26.0) 08/03/17 08:58 Base Excess -0.2 mEq/L (-3.0-3.0) 08/03/17 08:58 O2 Saturation 100.0 % (92.0-100.0) 08/03/17 08:58 Rhett Test Positive 08/03/17 08:58 Vent Rate 12 08/03/17 08:58 Inspired O2 60 08/03/17 08:58 Tidal Volume 450 08/03/17 08:58 PEEP 5 08/03/17 08:58 Pressure (ins/psv/peep) NA 08/03/17 08:58 Critical Value LZHANG 08/03/17 08:58 Sodium 134 mEq/L (136-145) L 08/05/17 06:15 Potassium 3.6 mEq/L (3.5-5.1) 08/05/17 06:15 Chloride 102 mEq/L (98-107) 08/05/17 06:15 Carbon Dioxide 21.5 mEq/L (21.0-31.0) 08/05/17 06:15 Anion Gap 14.1 (7.0-16.0) 08/05/17 06:15 BUN 77 mg/dL (7-25) H 08/05/17 06:15 Creatinine 4.2 mg/dL (0.6-1.2) H* 08/05/17 06:15 Est GFR ( Amer) TNP 08/05/17 06:15 Est GFR (Non-Af Amer) TNP 08/05/17 06:15 BUN/Creatinine Ratio 18.3 08/05/17 06:15 Glucose 216 mg/dL (70-105) H 08/05/17 06:15 POC Glucose 233 MG/DL (70 - 105) H 08/05/17 13:04 Hemoglobin A1c % 7.7 % (4.0-6.0) H 08/02/17 15:37 Whole Bld Lactic Acid 1.97 mmol/L (0.60-1.99) 08/02/17 13:49 Calcium 8.6 mg/dL (8.6-10.3) 08/05/17 06:15 Magnesium 3.0 mg/dL (1.9-2.7) H 08/05/17 06:15 Iron 10 ug/dL (27-139) L 08/02/17 13:56 TIBC 135 ug/dL (250-450) L 08/02/17 13:56 Iron Saturation 7 % (15-55) L 08/02/17 13:56 Unsaturated IBC 125 ug/dL (118-369) 08/02/17 13:56 Ferritin 588 ng/mL (15-150) H 08/02/17 13:56 Total Bilirubin 0.4 mg/dL (0.3-1.0) 08/02/17 13:57 Direct Bilirubin 0.09 mg/dL (0.0-0.2) 08/02/17 13:57 AST 26 U/L (13-39) 08/02/17 13:57 ALT 15 U/L (7-52) 08/02/17 13:57 Alkaline Phosphatase 120 U/L (34-104) H 08/02/17 13:57 Troponin I 1.16 ng/mL (0.01-0.05) H* D 08/04/17 06:30 B-Natriuretic Peptide 372.0 pg/mL (5.0-100.0) H 08/05/17 06:15 Total Protein 5.9 gm/dL (6.0-8.3) L 08/02/17 13:57 Albumin 3.0 gm/dL (3.7-5.3) L 08/02/17 13:57 Globulin 2.9 gm/dL 08/02/17 13:57 Albumin/Globulin Ratio 1.0 (1.0-1.8) 08/02/17 13:57 Triglycerides 132 mg/dL (<150) 08/04/17 06:30 Cholesterol 55 mg/dL (<200) 08/04/17 06:30 LDL Cholesterol Direct 16 mg/dL (75-193) L 08/04/17 06:30 HDL Cholesterol 13 mg/dL (23-92) L 08/04/17 06:30 Amylase 12 U/L (29-103) L 08/02/17 13:43 Lipase 4 U/L (11-82) L 08/02/17 13:43 TSH 3.74 uIU/ml (0.34-5.60) 08/04/17 06:30 Stool Occult Blood POSITIVE (NEGATIVE) H 08/03/17 17:50 Random Vancomycin 26.2 ug/mL (5.0-40.0) 08/05/17 06:15 Blood Type A POSITIVE 08/02/17 20:54 Antibody Screen POSITIVE 08/02/17 20:54 Crossmatch See Detail 08/02/17 20:54 - Physical Exam Vitals and I&O: Vital Signs Temp 98.1 F 08/05/17 12:00 Pulse 68 08/05/17 14:00 Resp 12 08/05/17 14:00 BP 104/68 08/05/17 14:00 Pulse Ox 100 08/05/17 14:00 Intake & Output 08/04/17 08/05/17 08/05/17 18:59 06:59 18:59 Intake Total 416.662 200 100 Balance 416.662 200 100 Weight (lbs) 87.543 kg Intake: Intake, IV Amount 416.662 100 Colistimethate 80 mg In 100 Sodium Chloride 0.9% 100 ml @ 100 mls/hr IV Q36H [facility] Rx#:[id number] Fluconazole 200mg/100mL 100 200 mg In 100 ml @ 100 mls/hr IV Q24HR [facility] Rx#: [id number] Meropenem 500 mg In 100 Sodium Chloride 0.9% 100 ml @ 100 mls/hr IV Q24H [facility] Rx#:[id number] Norepinephrine 4 mg In 216.662 Dextrose 5% 250 ml @ Per Protocol IV TITR PRN Rx#: [id number] Other 200 Other: # Bowel Movements 1 Stool Characteristics Soft Soft Liquid Formed Black Black Active Medications: Current Medications Acetaminophen (Tylenol 650mg/20.3ml Suspension) 650 mg GT DAILY [facility] Stop: 10/03/17 08:59 Last Admin: 08/05/17 08:15 Dose: Not Given Albuterol/Ipratropium (Duoneb Neb) 3 ml HHN Q4HRT [facility] Stop: 10/02/17 10:59 Last Admin: 08/05/17 10:52 Dose: 3 ml Ascorbic Acid (Vitamin C) 500 mg PO DAILY [facility] Stop: 10/03/17 08:59 Last Admin: 08/05/17 08:15 Dose: Not Given Aspirin (Aspirin Chewable) 81 mg GT DAILY [facility] Stop: 10/03/17 08:59 Last Admin: 08/05/17 08:15 Dose: Not Given Atorvastatin Calcium (Lipitor) 40 mg GT HS [facility] Stop: 10/03/17 20:59 Last Admin: 08/04/17 20:50 Dose: 40 mg Bisacodyl (Dulcolax 10 Mg Supp) 10 mg RC Q72HR PRN PRN Reason: IF MOM INEFFECTIVE Stop: 10/02/17 14:13 Bisacodyl (Dulcolax 10 Mg Supp) 10 mg RC PRN PRN PRN Reason: IF MOM INEFFECTIVE Stop: 10/02/17 14:13 Chlorhexidine Gluconate (Peridex) 15 ml MM 0800,2000 [facility] Stop: 10/02/17 07:59 Last Admin: 08/05/17 08:41 Dose: 15 ml Cholecalciferol (Vitamin D3) 1,000 iu GT DAILY [facility] Stop: 10/03/17 08:59 Last Admin: 08/05/17 08:15 Dose: Not Given Diltiazem HCl (Cardizem) 5 mg IVP Q4H PRN PRN Reason: INCREASE HEART RATE Stop: 10/01/17 21:59 Last Admin: 08/03/17 01:38 Dose: 5 mg Docusate Sodium (Colace) 100 mg PO DAILY [facility] Stop: 10/03/17 08:59 Last Admin: 08/05/17 08:15 Dose: Not Given Fluconazole (Diflucan) 200 mg in 100 mls @ 100 mls/hr IV Q24HR [facility] Stop: 10/02/17 14:59 Last Admin: 08/05/17 14:33 Dose: 100 mls/hr Dopamine HCl/Dextrose (Dopamine) 400 mg in 250 mls @ 0 mls/hr IV TITR PRN; Protocol; Per Protocol PRN Reason: BP MAINTENANCE (PER PROTOCOL) Stop: 10/02/17 07:47 Norepinephrine Bitartrate 4 mg (/ Dextrose) 254 mls @ 0 mls/hr IV TITR PRN; Protocol; Per Protocol PRN Reason: BP MAINTENANCE (PER PROTOCOL) Stop: 10/02/17 08:31 Last Titration: 08/04/17 14:00 Dose: 0 mcg/min, 0 mls/hr Colistimethate Sodium 80 mg/ (Sodium Chloride) 100 mls @ 100 mls/hr IV Q36H [facility] Stop: 10/02/17 20:59 Last Infusion: 08/05/17 11:25 Dose: Infused Meropenem 500 mg/ Sodium (Chloride) 100 mls @ 100 mls/hr IV Q12H [facility] Stop: 10/04/17 14:59 Insulin Aspart (Novolog Insulin Sliding Scale) 0 units SUBQ Q6HR [facility] PRN Reason: Protocol Stop: 10/02/17 00:00 Last Admin: 08/05/17 13:05 Dose: 4 units Lorazepam (Ativan) 1 mg IVP Q2HR PRN; Protocol PRN Reason: Restlessness Stop: 10/01/17 21:18 Last Admin: 08/04/17 01:05 Dose: 1 mg Magnesium Hydroxide (Milk Of Magnesia) 30 ml GT Q72H PRN PRN Reason: NO BM FOR THREE DAYS Stop: 10/02/17 14:13 Mirtazapine (Remeron) 15 mg GT HS [facility] PRN Reason: Protocol Stop: 10/02/17 20:59 Last Admin: 08/04/17 20:51 Dose: 15 mg Miscellaneous (Vancomycin Iv Per Pharmacy) 1 ea MC PRN PRN PRN Reason: PROTOCOL Stop: 10/01/17 20:42 Multivitamins/Vitamin C (Theragran) 1 tab PO DAILY [facility] Stop: 10/03/17 08:59 Last Admin: 08/05/17 08:15 Dose: Not Given Mupirocin (Bactroban Oint) 1 appl NS BID [facility] Stop: 08/09/17 17:01 Last Admin: 08/05/17 10:23 Dose: 1 appl Ondansetron HCl (Zofran Odt) 4 mg PO Q6HR PRN PRN Reason: Nausea / Vomiting Stop: 10/02/17 14:13 Pantoprazole Sodium (Protonix) 40 mg IVP DAILY [facility] Stop: 10/02/17 08:59 Last Admin: 08/05/17 08:41 Dose: 40 mg Simethicone (Mylicon) 80 mg GT Q6H PRN PRN Reason: GAS PAIN Stop: 10/02/17 14:13 Sodium Phosphate (Fleet Enema) 118 ml RC PRN PRN PRN Reason: IF MOM/DULCOLAX INEFFECTIVE Stop: 10/02/17 14:13 Temazepam (Restoril) 15 mg GT HS PRN; Protocol PRN Reason: Insomnia Stop: 10/02/17 14:13 Last Admin: 08/03/17 20:19 Dose: 15 mg Zinc Sulfate (Zinc Sulfate) 220 mg GT DAILY [facility] Stop: 10/03/17 08:59 Last Admin: 08/05/17 08:15 Dose: Not Given General: Alert HEENT: Atraumatic, PERRLA, EOMI, Mucous membr. moist/pink Neck: Supple, +2 carotid pulse wo bruit Cardiovascular: Regular rate, Normal S1, Normal S2 Lungs: Other (few rhonchi) Abdomen: Bowel sounds, Soft, Distended Extremities: Edema (upper wxtrmities), Other (upper ext) Neurological: Sensation intact Skin: no Rash Psych/Mental Status: Mood NL - Procedures Procedures: Procedures Procedure Code Date BLOOD TRANSFUSION SERVICE 78719 08/02/17 EXCISION OF STOMACH, ENDO, DIAGN [id number] 07/10/17 INSPECTION OF LOWER INTESTINAL TRACT, ENDO [id number] 07/10/17 PERFORMANCE OF URINARY FILTRATION, <6 HRS/DAY [id number] 07/10/17 RESPIRATORY VENTILATION, 24-96 CONSECUTIVE HOURS [id number] 08/02/17 TRANSFUSE NONAUT RED BLOOD CELLS IN PERIPH VEIN, PERC 75483B2 08/02/17 Assessment/Plan - Assessment Assessment: 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/L UE Edema, Cellulitis Shock Sepsis RF on Vent Acute on Chronic Decomp CHF G (-) Septicemia - Plan Plan: Lab - Result Diagrams 08/04/17 06:30 08/04/17 06:30 Current Medications Acetaminophen (Tylenol 650mg/20.3ml Suspension) 650 mg GT DAILY [facility] Stop: 10/03/17 08:59 Last Admin: 08/04/17 09:18 Dose: 650 mg Albuterol/Ipratropium (Duoneb Neb) 3 ml HHN Q4HRT [facility] Stop: 10/02/17 10:59 Last Admin: 08/04/17 11:25 Dose: 3 ml Ascorbic Acid (Vitamin C) 500 mg PO DAILY [facility] Stop: 10/03/17 08:59 Last Admin: 08/04/17 09:18 Dose: 500 mg Aspirin (Aspirin Chewable) 81 mg GT DAILY [facility] Stop: 10/03/17 08:59 Last Admin: 08/04/17 09:18 Dose: 81 mg Atorvastatin Calcium (Lipitor) 40 mg GT HS [facility] PRN Reason: Protocol Stop: 10/02/17 20:59 Last Admin: 08/03/17 20:19 Dose: 40 mg Bisacodyl (Dulcolax 10 Mg Supp) 10 mg RC Q72HR PRN PRN Reason: IF MOM INEFFECTIVE Stop: 10/02/17 14:13 Bisacodyl (Dulcolax 10 Mg Supp) 10 mg RC PRN PRN PRN Reason: IF MOM INEFFECTIVE Stop: 10/02/17 14:13 Chlorhexidine Gluconate (Peridex) 15 ml MM 0800,2000 [facility] Stop: 10/02/17 07:59 Last Admin: 08/04/17 08:00 Dose: 15 ml Cholecalciferol (Vitamin D3) 1,000 iu GT DAILY [facility] Stop: 10/03/17 08:59 Last Admin: 08/04/17 09:18 Dose: 1,000 iu Diltiazem HCl (Cardizem) 5 mg IVP Q4H PRN PRN Reason: INCREASE HEART RATE Stop: 10/01/17 21:59 Last Admin: 08/03/17 01:38 Dose: 5 mg Docusate Sodium (Colace) 100 mg PO DAILY [facility] Stop: 10/03/17 08:59 Last Admin: 08/04/17 09:18 Dose: 100 mg Heparin Sodium (Porcine) (Heparin) 5,000 units HD UD [facility] Stop: 08/05/17 08:59 Last Admin: 08/04/17 09:19 Dose: Not Given Fluconazole (Diflucan) 200 mg in 100 mls @ 100 mls/hr IV Q24HR [facility] Stop: 10/02/17 14:59 Last Infusion: 08/03/17 15:40 Dose: Infused Meropenem 500 mg/ Sodium (Chloride) 100 mls @ 100 mls/hr IV Q24H [facility] Stop: 10/02/17 12:59 Last Admin: 08/04/17 13:17 Dose: 100 mls/hr Dopamine HCl/Dextrose (Dopamine) 400 mg in 250 mls @ 0 mls/hr IV TITR PRN; Protocol; Per Protocol PRN Reason: BP MAINTENANCE (PER PROTOCOL) Stop: 10/02/17 07:47 Norepinephrine Bitartrate 4 mg (/ Dextrose) 254 mls @ 0 mls/hr IV TITR PRN; Protocol; Per Protocol PRN Reason: BP MAINTENANCE (PER PROTOCOL) Stop: 10/02/17 08:31 Last Admin: 08/03/17 23:47 Dose: 4 mcg/min, 15.24 mls/hr Colistimethate Sodium 80 mg/ (Sodium Chloride) 100 mls @ 100 mls/hr IV Q36H [facility] Stop: 10/02/17 20:59 Last Infusion: 08/03/17 21:20 Dose: Infused Insulin Aspart (Novolog Insulin Sliding Scale) 0 units SUBQ Q6HR [facility] PRN Reason: Protocol Stop: 10/02/17 00:00 Last Admin: 08/04/17 11:30 Dose: 6 units Lorazepam (Ativan) 1 mg IVP Q2HR PRN; Protocol PRN Reason: Restlessness Stop: 10/01/17 21:18 Last Admin: 08/04/17 01:05 Dose: 1 mg Magnesium Hydroxide (Milk Of Magnesia) 30 ml GT Q72H PRN PRN Reason: NO BM FOR THREE DAYS Stop: 10/02/17 14:13 Mirtazapine (Remeron) 15 mg GT HS [facility] PRN Reason: Protocol Stop: 10/02/17 20:59 Last Admin: 08/03/17 20:19 Dose: 15 mg Miscellaneous (Vancomycin Iv Per Pharmacy) 1 ea MC PRN PRN PRN Reason: PROTOCOL Stop: 04/25/18 20:42 Miscellaneous (Zosyn Iv Per Pharmacy) 1 ea MC PRN PRN PRN Reason: PROTOCOL Stop: 10/01/17 20:42 Multivitamins/Vitamin C (Theragran) 1 tab PO DAILY [facility] Stop: 10/03/17 08:59 Last Admin: 08/04/17 09:18 Dose: 1 tab Ondansetron HCl (Zofran Odt) 4 mg PO Q6HR PRN PRN Reason: Nausea / Vomiting Stop: 10/02/17 14:13 Pantoprazole Sodium (Protonix) 40 mg IVP DAILY [facility] Stop: 10/02/17 08:59 Last Admin: 08/04/17 09:18 Dose: 40 mg Simethicone (Mylicon) 80 mg GT Q6H PRN PRN Reason: GAS PAIN Stop: 10/02/17 14:13 Sodium Phosphate (Fleet Enema) 118 ml RC PRN PRN PRN Reason: IF MOM/DULCOLAX INEFFECTIVE Stop: 10/02/17 14:13 Temazepam (Restoril) 15 mg GT HS PRN; Protocol PRN Reason: Insomnia Stop: 10/02/17 14:13 Last Admin: 08/03/17 20:19 Dose: 15 mg Zinc Sulfate (Zinc Sulfate) 220 mg GT DAILY [facility] Stop: 10/03/17 08:59 Last Admin: 08/04/17 09:18 Dose: 220 Lab - Result Diagrams 08/05/17 06:15 08/05/17 06:15 attempted placement of Perma Cath but unsuccessful Venous & Arterial duplex scans were negative for DVT or clots surgeon wants to try left AVF 1st, then if unsuccessful femoral cath replace K f/u electrolytes, cbc, CXR
--- NOTE | 2017-08-05 16:36 | Operative Report ---
DATE OF SURGERY: 08/05/2017 PREOPERATIVE DIAGNOSES: 1. End-stage renal disease, on hemodialysis. 2. Respiratory failure, on vent via trach. 3. Obesity. POSTOPERATIVE DIAGNOSES: 1. End-stage renal disease, on hemodialysis. 2. Respiratory failure, on vent via trach. 3. Obesity. OPERATION DONE: 1. Attempted placement of PermCath, right subclavian vein under ultrasound and fluoroscopy. 2. Attempted placement of PermCath, left subclavian vein under fluoroscopy. SURGEON: Alex Townsend M.D. ANESTHESIA: MAC. ANESTHESIOLOGIST: Abby Mcclellan M.D. ESTIMATED BLOOD LOSS: 10 mL. INDICATIONS FOR SURGERY: The patient with functioning left arm AV shunt placed one year ago, but the arm is swollen as is the forearm, although patent, this likely is evidence of some narrowing of the venous anastomosis, although on ultrasound, all vessels appear to be patent regarding the shunt. Ultrasound of the upper vessels was done and these were patent. DESCRIPTION OF PROCEDURE: The patient was given IV sedation. The right chest was prepped with ChloraPrep and draped in appropriate manner. Ultrasound was used to locate the subclavian vessel. A 1% lidocaine was used to infiltrate the area identified. Several attempts were made and although the subclavian vein is identified and located, guidewire would not go into the superior vena cava, but instead goes only into the internal jugular. Same procedure repeated on the left subclavian vein with the same result. Procedure was terminated. The alternative of placing the PermCath in the femoral location is not a good choice in view of the patient's incontinence. We will have to use the left arm AV shunt. JOB# [id number]
[2017-08-05] MEDS: Meropenem 500 MG in Sodium Chloride 0.9% 100 ML IV SCH (17:26)
[2017-08-05] MEDS: Diltiazem 5 mg/mL 5mL Vial IVP PRN (20:54)
[2017-08-06] MEDS ORDERED: Norepinephrine 4 mg/4mL Vial IV ONE (03:35)
[2017-08-06] MEDS: Albuterol/Ipratropium Neb 3 ML AERS HHN SCH ×6 (03:40→22:15)
[2017-08-06] MEDS: Meropenem 500 MG in Sodium Chloride 0.9% 100 ML IV SCH (04:39)
[2017-08-06] MEDS: INSULIN ASPART SLIDING SCALE 100 UNITS/ML UNIT SUBQ SCH ×4 (05:56→23:44)
[2017-08-06] MEDS: Aspirin 81mg Chewable Tab GT SCH (08:16)
[2017-08-06] MEDS: Multivitamin Tab PO SCH (08:16)
[2017-08-06] MEDS: Chlorhexidine Gluconate 0.12% 15mL Mouthwash MM SCH ×2 (08:17→20:00)
[2017-08-06 08:38] LABS: ANION GAP 16.7 (7.0-16.0); BUN - UREA NITROGEN 47 mg/dL (7-25); CALCIUM SERUM 8.8 mg/dL (8.6-10.3); CARBON DIOXIDE 25.1 mEq/L (21.0-31.0); CHLORIDE 93 mEq/L (98-107); GLUCOSE 338 mg/dL (70-105); POTASSIUM SERUM 3.8 mEq/L (3.5-5.1); SODIUM SERUM 131 mEq/L (136-145)
[2017-08-06 08:41] LABS: % MONOCYTES 8.7 % (2.0-10.0); % NEUTROPHILS 83.3 % (40.0-80.0); EOSINOPHILE ABSOLUTE 0.4 Th/cmm (0.1-0.4); HEMOGLOBIN 10.3 gm/dL (12-16); LYMPHOCYTE ABSOLUTE 0.6 Th/cmm (1.5-3.0); MEAN CELL VOLUME 94.5 fl (81-100); MEAN CORPUSCULAR HEMOGLOBIN 32.5 pg (27.0-31.0); MEAN CORPUSCULAR HGB CONC 34.4 pg (28.0-36.0); NEUTROPHILE ABSOLUTE 9.8 Th/cmm (1.8-8.0); PLATELET COUNT 213 Th/cmm (150-400); RED BLOOD COUNT 3.16 Mil/cmm (3.80-5.20); RED CELL DISTRIBUTION WIDTH 18.2 % (11.5-20.0)
[2017-08-06 08:44] LABS: WHITE BLOOD COUNT 11.8 Th/cmm (4.8-10.8)
[2017-08-06 08:45] LABS: HEMATOCRIT 29.9 % (41.0-60)
--- NOTE | 2017-08-06 12:53 | Infectious Disease Prog Note ---
Infectious Disease Subjective - Review of Systems Service Date: 08/06/17 Subjective: Permacath was tried and failed. Infectious Disease Objective - Results Result Diagrams: 08/06/17 07:15 08/06/17 07:15 Recent Labs: Laboratory Last Values WBC 11.8 Th/cmm (4.8-10.8) H D 08/06/17 07:15 RBC 3.16 Mil/cmm (3.80-5.20) L 08/06/17 07:15 Hgb 10.3 gm/dL (12-16) L 08/06/17 07:15 Hct 29.9 % (41.0-60) L D 08/06/17 07:15 MCV 94.5 fl (81-100) 08/06/17 07:15 MCH 32.5 pg (27.0-31.0) H 08/06/17 07:15 MCHC Differential 34.4 pg (28.0-36.0) 08/06/17 07:15 RDW 18.2 % (11.5-20.0) 08/06/17 07:15 Plt Count 213 Th/cmm (150-400) 08/06/17 07:15 MPV 11.0 fl 08/06/17 07:15 Neutrophils % 83.3 % (40.0-80.0) H 08/06/17 07:15 Band Neutrophils % 8 % (0-10) 08/05/17 06:15 Lymphocytes % 5.0 % (20.0-50.0) L 08/06/17 07:15 Monocytes % 8.7 % (2.0-10.0) 08/06/17 07:15 Eosinophils % 3.0 % (0.0-5.0) 08/06/17 07:15 Basophils % 0.0 % (0.0-2.0) 08/06/17 07:15 Neutrophils (Manual) 79 % (40-80) 08/05/17 06:15 Lymphocytes 2 % (20-50) L 08/05/17 06:15 Monocytes 6 % (2-10) 08/05/17 06:15 Eosinophils 5 % (0-5) 08/05/17 06:15 Basophils 0 % (0-3) 08/02/17 15:37 Hypochromia 1+ 08/02/17 15:37 Platelet Estimate ADEQUATE (NORMAL) 08/05/17 06:15 Platelet Morphology NORMAL (NORMAL) 08/02/17 15:37 Crenated Cell 2+ 08/02/17 15:37 RBC Morph Micro Appear ABNORMAL (NORMAL) 08/02/17 15:37 PT 12.9 SECONDS (9.5-11.5) H 08/02/17 13:58 INR 1.23 (0.5-1.4) 08/02/17 13:58 PTT (Actin FS) 33.6 SECONDS (26.0-38.0) 08/02/17 13:58 Specimen Source Arterial 08/03/17 08:58 Sample Site Right Radial 08/03/17 08:58 pH 7.42 (7.35-7.45) 08/03/17 08:58 pCO2 37.0 mmHg (35.0-45.0) 08/03/17 08:58 pO2 204.0 mmHg (80.0-100.0) H 08/03/17 08:58 HCO3 24.8 mEq/L (20.0-26.0) 08/03/17 08:58 Base Excess -0.2 mEq/L (-3.0-3.0) 08/03/17 08:58 O2 Saturation 100.0 % (92.0-100.0) 08/03/17 08:58 Rhett Test Positive 08/03/17 08:58 Vent Rate 12 08/03/17 08:58 Inspired O2 60 08/03/17 08:58 Tidal Volume 450 08/03/17 08:58 PEEP 5 08/03/17 08:58 Pressure (ins/psv/peep) NA 08/03/17 08:58 Critical Value LZHANG 08/03/17 08:58 Sodium 131 mEq/L (136-145) L 08/06/17 07:15 Potassium 3.8 mEq/L (3.5-5.1) 08/06/17 07:15 Chloride 93 mEq/L (98-107) L 08/06/17 07:15 Carbon Dioxide 25.1 mEq/L (21.0-31.0) 08/06/17 07:15 Anion Gap 16.7 (7.0-16.0) H 08/06/17 07:15 BUN 47 mg/dL (7-25) H 08/06/17 07:15 Creatinine 3.0 mg/dL (0.6-1.2) H 08/06/17 07:15 Est GFR ( Amer) TNP 08/06/17 07:15 Est GFR (Non-Af Amer) TNP 08/06/17 07:15 BUN/Creatinine Ratio 15.7 08/06/17 07:15 Glucose 338 mg/dL (70-105) H 08/06/17 07:15 POC Glucose 416 MG/DL (70 - 105) H 08/06/17 11:49 Hemoglobin A1c % 7.7 % (4.0-6.0) H 08/02/17 15:37 Whole Bld Lactic Acid 1.97 mmol/L (0.60-1.99) 08/02/17 13:49 Calcium 8.8 mg/dL (8.6-10.3) 08/06/17 07:15 Magnesium 3.0 mg/dL (1.9-2.7) H 08/05/17 06:15 Iron 10 ug/dL (27-139) L 08/02/17 13:56 TIBC 135 ug/dL (250-450) L 08/02/17 13:56 Iron Saturation 7 % (15-55) L 08/02/17 13:56 Unsaturated IBC 125 ug/dL (118-369) 08/02/17 13:56 Ferritin 588 ng/mL (15-150) H 08/02/17 13:56 Total Bilirubin 0.4 mg/dL (0.3-1.0) 08/02/17 13:57 Direct Bilirubin 0.09 mg/dL (0.0-0.2) 08/02/17 13:57 AST 26 U/L (13-39) 08/02/17 13:57 ALT 15 U/L (7-52) 08/02/17 13:57 Alkaline Phosphatase 120 U/L (34-104) H 08/02/17 13:57 Troponin I 1.16 ng/mL (0.01-0.05) H* D 08/04/17 06:30 B-Natriuretic Peptide 372.0 pg/mL (5.0-100.0) H 08/05/17 06:15 Total Protein 5.9 gm/dL (6.0-8.3) L 08/02/17 13:57 Albumin 3.0 gm/dL (3.7-5.3) L 08/02/17 13:57 Globulin 2.9 gm/dL 08/02/17 13:57 Albumin/Globulin Ratio 1.0 (1.0-1.8) 08/02/17 13:57 Triglycerides 132 mg/dL (<150) 08/04/17 06:30 Cholesterol 55 mg/dL (<200) 08/04/17 06:30 LDL Cholesterol Direct 16 mg/dL (75-193) L 08/04/17 06:30 HDL Cholesterol 13 mg/dL (23-92) L 08/04/17 06:30 Amylase 12 U/L (29-103) L 08/02/17 13:43 Lipase 4 U/L (11-82) L 08/02/17 13:43 TSH 3.74 uIU/ml (0.34-5.60) 08/04/17 06:30 Stool Occult Blood POSITIVE (NEGATIVE) H 08/03/17 17:50 Random Vancomycin 26.2 ug/mL (5.0-40.0) 08/05/17 06:15 Blood Type A POSITIVE 08/02/17 20:54 Antibody Screen POSITIVE 08/02/17 20:54 Crossmatch See Detail 08/02/17 20:54 - Physical Exam Vitals and I&O: Vital Signs Temp 97.8 F 08/06/17 08:00 Pulse 127 08/06/17 12:05 Resp 16 08/06/17 11:00 BP 95/48 08/06/17 11:00 Pulse Ox 100 08/06/17 12:05 Intake & Output 08/05/17 08/06/17 08/06/17 18:59 06:59 18:59 Intake Total 520 1283.720 420.751 Output Total 0 1900 Balance 520 -616.280 420.751 Weight (lbs) 87.543 kg 86.806 kg Intake: Intake, IV Amount 300 653.720 420.751 Colistimethate 80 mg In 100 Sodium Chloride 0.9% 100 ml @ 100 mls/hr IV Q36H [facility] Rx#:[id number] Fluconazole 200mg/100mL 100 200 mg In 100 ml @ 100 mls/hr IV Q24HR [facility] Rx#: [id number] Meropenem 500 mg In 100 100 Sodium Chloride 0.9% 100 ml @ 100 mls/hr IV Q12H [facility] Rx#:[id number] Norepinephrine 4 mg In 553.720 420.751 Dextrose 5% 250 ml @ Per Protocol IV TITR PRN Rx#: [id number] Tube Feeding 160 480 Other 60 150 Output: Urine 0 0 Hemodialysis 1900 Other: # Bowel Movements 2 2 Stool Characteristics Soft Soft Black Black Active Medications: Current Medications Acetaminophen (Tylenol 650mg/20.3ml Suspension) 650 mg GT DAILY [facility] Stop: 10/03/17 08:59 Last Admin: 08/06/17 08:16 Dose: 650 mg Albuterol/Ipratropium (Duoneb Neb) 3 ml HHN Q4HRT [facility] Stop: 10/02/17 10:59 Last Admin: 08/06/17 12:03 Dose: 3 ml Ascorbic Acid (Vitamin C) 500 mg PO DAILY [facility] Stop: 10/03/17 08:59 Last Admin: 08/06/17 08:16 Dose: 500 mg Aspirin (Aspirin Chewable) 81 mg GT DAILY [facility] Stop: 10/03/17 08:59 Last Admin: 08/06/17 08:16 Dose: 81 mg Atorvastatin Calcium (Lipitor) 40 mg GT HS [facility] Stop: 10/03/17 20:59 Last Admin: 08/05/17 21:24 Dose: 40 mg Bisacodyl (Dulcolax 10 Mg Supp) 10 mg RC Q72HR PRN PRN Reason: IF MOM INEFFECTIVE Stop: 10/02/17 14:13 Bisacodyl (Dulcolax 10 Mg Supp) 10 mg RC PRN PRN PRN Reason: IF MOM INEFFECTIVE Stop: 10/02/17 14:13 Chlorhexidine Gluconate (Peridex) 15 ml MM 0800,2000 [facility] Stop: 10/02/17 07:59 Last Admin: 08/06/17 08:17 Dose: 15 ml Cholecalciferol (Vitamin D3) 1,000 iu GT DAILY [facility] Stop: 10/03/17 08:59 Last Admin: 08/06/17 08:16 Dose: 1,000 iu Diltiazem HCl (Cardizem) 5 mg IVP Q4H PRN PRN Reason: INCREASE HEART RATE Stop: 10/01/17 21:59 Last Admin: 08/05/17 20:54 Dose: 5 mg Docusate Sodium (Colace) 100 mg PO DAILY [facility] Stop: 10/03/17 08:59 Last Admin: 08/06/17 08:17 Dose: Not Given Fluconazole (Diflucan) 200 mg in 100 mls @ 100 mls/hr IV Q24HR [facility] Stop: 10/02/17 14:59 Last Infusion: 08/05/17 15:35 Dose: Infused Dopamine HCl/Dextrose (Dopamine) 400 mg in 250 mls @ 0 mls/hr IV TITR PRN; Protocol; Per Protocol PRN Reason: BP MAINTENANCE (PER PROTOCOL) Stop: 10/02/17 07:47 Norepinephrine Bitartrate 4 mg (/ Dextrose) 254 mls @ 0 mls/hr IV TITR PRN; Protocol; Per Protocol PRN Reason: BP MAINTENANCE (PER PROTOCOL) Stop: 08/06/17 13:59 Last Admin: 08/06/17 11:21 Dose: 12 mcg/min, 45.72 mls/hr Colistimethate Sodium 80 mg/ (Sodium Chloride) 100 mls @ 100 mls/hr IV Q36H [facility] Stop: 10/02/17 20:59 Last Infusion: 08/05/17 11:25 Dose: Infused Meropenem 500 mg/ Sodium (Chloride) 100 mls @ 100 mls/hr IV Q12H [facility] Stop: 10/04/17 16:59 Last Infusion: 08/06/17 05:40 Dose: Infused Norepinephrine Bitartrate 8 mg (/ Dextrose) 258 mls @ 0 mls/hr IV TITR PRN; Protocol; 0 MCG/MIN PRN Reason: BP MAINTENANCE (PER PROTOCOL) Stop: 10/05/17 13:59 Insulin Aspart (Novolog Insulin Sliding Scale) 0 units SUBQ Q6HR [facility] PRN Reason: Protocol Stop: 10/02/17 00:00 Last Admin: 08/06/17 11:54 Dose: 12 units Lorazepam (Ativan) 1 mg IVP Q2HR PRN; Protocol PRN Reason: Restlessness Stop: 10/01/17 21:18 Last Admin: 08/06/17 06:55 Dose: 1 mg Magnesium Hydroxide (Milk Of Magnesia) 30 ml GT Q72H PRN PRN Reason: NO BM FOR THREE DAYS Stop: 10/02/17 14:13 Mirtazapine (Remeron) 15 mg GT HS [facility] PRN Reason: Protocol Stop: 10/02/17 20:59 Last Admin: 08/05/17 21:24 Dose: 15 mg Miscellaneous (Vancomycin Iv Per Pharmacy) 1 ea PRN PRN PRN Reason: PROTOCOL Stop: 10/01/17 20:42 Miscellaneous (Clinical Monitoring) 1 ea MC PRN PRN PRN Reason: RENAL Stop: 10/05/17 11:28 Multivitamins/Vitamin C (Theragran) 1 tab PO DAILY [facility] Stop: 10/03/17 08:59 Last Admin: 08/06/17 08:16 Dose: 1 tab Mupirocin (Bactroban Oint) 1 appl NS BID [facility] Stop: 08/09/17 17:01 Last Admin: 08/06/17 08:18 Dose: 1 appl Ondansetron HCl (Zofran Odt) 4 mg PO Q6HR PRN PRN Reason: Nausea / Vomiting Stop: 10/02/17 14:13 Pantoprazole Sodium (Protonix) 40 mg IVP DAILY [facility] Stop: 10/02/17 08:59 Last Admin: 08/06/17 08:16 Dose: 40 mg Simethicone (Mylicon) 80 mg GT Q6H PRN PRN Reason: GAS PAIN Stop: 10/02/17 14:13 Sodium Phosphate (Fleet Enema) 118 ml RC PRN PRN PRN Reason: IF MOM/DULCOLAX INEFFECTIVE Stop: 10/02/17 14:13 Temazepam (Restoril) 15 mg GT HS PRN; Protocol PRN Reason: Insomnia Stop: 10/02/17 14:13 Last Admin: 08/06/17 00:26 Dose: 15 mg Zinc Sulfate (Zinc Sulfate) 220 mg GT DAILY [facility] Stop: 10/03/17 08:59 Last Admin: 08/06/17 08:16 Dose: 220 mg General: no acute distress, well developed, well nourished HEENT: atraumatic, normocephalic, PERRLA, EOMI, moist mucous membrane Neck: supple, tracheostomy, no thyromegaly Cardiovascular: S1S2, regular Lungs: clear to auscultation bilaterally, clear to percussion Abdomen: soft, no tender, no distended Extremities: no cyanosis, no clubbing, no edema Neurological: awake, alert - Procedures Procedures: Procedures Procedure Code Date BLOOD TRANSFUSION SERVICE 42822 08/02/17 EXCISION OF STOMACH, ENDO, DIAGN [id number] 07/10/17 INSPECTION OF LOWER INTESTINAL TRACT, ENDO [id number] 07/10/17 PERFORMANCE OF URINARY FILTRATION, <6 HRS/DAY [id number] 07/10/17 RESPIRATORY VENTILATION, 24-96 CONSECUTIVE HOURS [id number] 08/02/17 TRANSFUSE NONAUT RED BLOOD CELLS IN PERIPH VEIN, PERC [id number] 08/02/17 Infectious Disease Assmt/Plan - Assessment Assessment: 1. Septic shock. improved. 2. Gram-negative negative bacteremia. 3. Pneumonia. 4. 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 5. Diabetes mellitus type 2. 6. Obesity. - Plan Plan: Continue colistin and meropenem. Continue diflucan. Nutritional Asmnt/Malnutr-PDOC - Dietary Evaluation Malnutrition Findings (Please click <Entered> for more info): Nutritional Asmnt/Malnutrition Start: 08/05/17 15: 53 Text: Status: Complete Freq: Document 08/05/17 15:53 HEN (Rec: 08/05/17 16:19 LCHENG [id number]) Nutritional Asmnt/Malnutrition Patient General Information Nutritional Screening High Risk Diagnosis sepsis, respiratory failure, ESRD Pertinent Medical Hx/Surgical Hx ESRD on HD, respiratory failure with tracheostomy, dysphagia, a fib, anemia, HTN, GERD Subjective Information Pt on vent, not able to interview. Pt was on TF Novosource Renal 30ml/hr continuous, NPO today for surgery. Pt has dialysis ordred per nurse note. Current Diet Order/ Nutrition Support NPO on 08/05 Pertinent Medications vit C, vit D3, colace, novolog , remeron, theragran, protonix , zinc Pertinent Labs 08/05 Na 134, K 3.6, Cl 102, BUN 77, Cr 4.2, Glucose 216, POC 224-233 08/02 A1c 7.7 Nutritional Hx/Data Height 1.6 m Height (Calculated Centimeters) 160.0 Current Weight (lbs) 87.543 kg Weight (Calculated Kilograms) 87.5 Weight (Calculated Grams) 39692.3 [place] Body Weight 115 Body Mass Index (BMI) 34.2 Weight Status Obese GI Symptoms GI Symptoms None Last BM 08/04 Difficult in: None Skin Integrity/Comment: reddened to left/right inner thigh, right lateral index finger, right/left arm; skin tear to left abdominal fold; pressure area to coccy/sacral Estimated Nutritional Goals BEE in Kcals: Adj wt of IBW Calories/Kcals/Kg 30-35 adj wt 61kg Kcals Calculated 3649-5358 Protein: Adj wt of IBW Protein g/k.2-1.4 Protein Calculated 73-85 Fluid: ml 1830-2135ml (1ml/kcal) Nutritional Problem 1. Problem Problem altered nutrition related lab values Etiology hx of ESRD, endocrine dysfunction Signs/Symptoms: BUN 77, Cr 4.2, Glucose 216, POC 224-233, A1c 7.7 Malnutrition Alert Protein-Calorie Malnutrition N/A Is there a minimum of two criteria No selected? Query Text:Check all the applicable criteria. A minimum of two criteria are recommended for diagnosis of either severe or non-severe malnutrition. Intervention/Recommendation Comments 1. Resume TF Novosource Renal 30ml/hr continuous as ordered. increase to goal rate of 40ml /hr continuous as tolerated. This will provide 1920kcal, 87g protein and 688ml free water, meeting 100% of nutritional needs 2. Monitor TF rate, tolerance, wt weekly, skin integrity and labs 3. F/U as high risk in 2-3 days, 08/07-3/ Expected Outcomes/Goals Expected Outcomes/Goals 1. Pt to meet at least 75% of nutritional needs via nutrition support with tolerance 2. Wt stability, skin to remain intact, labs to approach WNL.
--- NOTE | 2017-08-06 14:34 | General Progress Note ---
Subjective - Review of Systems Service Date: 08/06/17 Subjective: more awake, interacting, on vent Objective - Results Result Diagrams: 08/06/17 07:15 08/06/17 07:15 Recent Labs: Laboratory Last Values WBC 11.8 Th/cmm (4.8-10.8) H D 08/06/17 07:15 RBC 3.16 Mil/cmm (3.80-5.20) L 08/06/17 07:15 Hgb 10.3 gm/dL (12-16) L 08/06/17 07:15 Hct 29.9 % (41.0-60) L D 08/06/17 07:15 MCV 94.5 fl (81-100) 08/06/17 07:15 MCH 32.5 pg (27.0-31.0) H 08/06/17 07:15 MCHC Differential 34.4 pg (28.0-36.0) 08/06/17 07:15 RDW 18.2 % (11.5-20.0) 08/06/17 07:15 Plt Count 213 Th/cmm (150-400) 08/06/17 07:15 MPV 11.0 fl 08/06/17 07:15 Neutrophils % 83.3 % (40.0-80.0) H 08/06/17 07:15 Band Neutrophils % 8 % (0-10) 08/05/17 06:15 Lymphocytes % 5.0 % (20.0-50.0) L 08/06/17 07:15 Monocytes % 8.7 % (2.0-10.0) 08/06/17 07:15 Eosinophils % 3.0 % (0.0-5.0) 08/06/17 07:15 Basophils % 0.0 % (0.0-2.0) 08/06/17 07:15 Neutrophils (Manual) 79 % (40-80) 08/05/17 06:15 Lymphocytes 2 % (20-50) L 08/05/17 06:15 Monocytes 6 % (2-10) 08/05/17 06:15 Eosinophils 5 % (0-5) 08/05/17 06:15 Basophils 0 % (0-3) 08/02/17 15:37 Hypochromia 1+ 08/02/17 15:37 Platelet Estimate ADEQUATE (NORMAL) 08/05/17 06:15 Platelet Morphology NORMAL (NORMAL) 08/02/17 15:37 Crenated Cell 2+ 08/02/17 15:37 RBC Morph Micro Appear ABNORMAL (NORMAL) 08/02/17 15:37 PT 12.9 SECONDS (9.5-11.5) H 08/02/17 13:58 INR 1.23 (0.5-1.4) 08/02/17 13:58 PTT (Actin FS) 33.6 SECONDS (26.0-38.0) 08/02/17 13:58 Specimen Source Arterial 08/03/17 08:58 Sample Site Right Radial 08/03/17 08:58 pH 7.42 (7.35-7.45) 08/03/17 08:58 pCO2 37.0 mmHg (35.0-45.0) 08/03/17 08:58 pO2 204.0 mmHg (80.0-100.0) H 08/03/17 08:58 HCO3 24.8 mEq/L (20.0-26.0) 08/03/17 08:58 Base Excess -0.2 mEq/L (-3.0-3.0) 08/03/17 08:58 O2 Saturation 100.0 % (92.0-100.0) 08/03/17 08:58 Rhett Test Positive 08/03/17 08:58 Vent Rate 12 08/03/17 08:58 Inspired O2 60 08/03/17 08:58 Tidal Volume 450 08/03/17 08:58 PEEP 5 08/03/17 08:58 Pressure (ins/psv/peep) NA 08/03/17 08:58 Critical Value LZHANG 08/03/17 08:58 Sodium 131 mEq/L (136-145) L 08/06/17 07:15 Potassium 3.8 mEq/L (3.5-5.1) 08/06/17 07:15 Chloride 93 mEq/L (98-107) L 08/06/17 07:15 Carbon Dioxide 25.1 mEq/L (21.0-31.0) 08/06/17 07:15 Anion Gap 16.7 (7.0-16.0) H 08/06/17 07:15 BUN 47 mg/dL (7-25) H 08/06/17 07:15 Creatinine 3.0 mg/dL (0.6-1.2) H 08/06/17 07:15 Est GFR ( Amer) TNP 08/06/17 07:15 Est GFR (Non-Af Amer) TNP 08/06/17 07:15 BUN/Creatinine Ratio 15.7 08/06/17 07:15 Glucose 338 mg/dL (70-105) H 08/06/17 07:15 POC Glucose 416 MG/DL (70 - 105) H 08/06/17 11:49 Hemoglobin A1c % 7.7 % (4.0-6.0) H 08/02/17 15:37 Whole Bld Lactic Acid 1.97 mmol/L (0.60-1.99) 08/02/17 13:49 Calcium 8.8 mg/dL (8.6-10.3) 08/06/17 07:15 Magnesium 3.0 mg/dL (1.9-2.7) H 08/05/17 06:15 Iron 10 ug/dL (27-139) L 08/02/17 13:56 TIBC 135 ug/dL (250-450) L 08/02/17 13:56 Iron Saturation 7 % (15-55) L 08/02/17 13:56 Unsaturated IBC 125 ug/dL (118-369) 08/02/17 13:56 Ferritin 588 ng/mL (15-150) H 08/02/17 13:56 Total Bilirubin 0.4 mg/dL (0.3-1.0) 08/02/17 13:57 Direct Bilirubin 0.09 mg/dL (0.0-0.2) 08/02/17 13:57 AST 26 U/L (13-39) 08/02/17 13:57 ALT 15 U/L (7-52) 08/02/17 13:57 Alkaline Phosphatase 120 U/L (34-104) H 08/02/17 13:57 Troponin I 1.16 ng/mL (0.01-0.05) H* D 08/04/17 06:30 B-Natriuretic Peptide 372.0 pg/mL (5.0-100.0) H 08/05/17 06:15 Total Protein 5.9 gm/dL (6.0-8.3) L 08/02/17 13:57 Albumin 3.0 gm/dL (3.7-5.3) L 08/02/17 13:57 Globulin 2.9 gm/dL 08/02/17 13:57 Albumin/Globulin Ratio 1.0 (1.0-1.8) 08/02/17 13:57 Triglycerides 132 mg/dL (<150) 08/04/17 06:30 Cholesterol 55 mg/dL (<200) 08/04/17 06:30 LDL Cholesterol Direct 16 mg/dL (75-193) L 08/04/17 06:30 HDL Cholesterol 13 mg/dL (23-92) L 08/04/17 06:30 Amylase 12 U/L (29-103) L 08/02/17 13:43 Lipase 4 U/L (11-82) L 08/02/17 13:43 TSH 3.74 uIU/ml (0.34-5.60) 08/04/17 06:30 Stool Occult Blood POSITIVE (NEGATIVE) H 08/03/17 17:50 Random Vancomycin 26.2 ug/mL (5.0-40.0) 08/05/17 06:15 Blood Type A POSITIVE 08/02/17 20:54 Antibody Screen POSITIVE 08/02/17 20:54 Crossmatch See Detail 08/02/17 20:54 - Physical Exam Vitals and I&O: Vital Signs Temp 97.8 F 08/06/17 12:00 Pulse 141 08/06/17 13:50 Resp 12 08/06/17 13:00 BP 92/59 08/06/17 13:30 Pulse Ox 100 08/06/17 13:50 Intake & Output 08/05/17 08/06/17 08/06/17 18:59 06:59 18:59 Intake Total 520 1283.720 420.751 Output Total 0 1900 Balance 520 -616.280 420.751 Weight (lbs) 87.543 kg 86.806 kg Intake: Intake, IV Amount 300 653.720 420.751 Colistimethate 80 mg In 100 Sodium Chloride 0.9% 100 ml @ 100 mls/hr IV Q36H [facility] Rx#:[id number] Fluconazole 200mg/100mL 100 200 mg In 100 ml @ 100 mls/hr IV Q24HR [facility] Rx#: [id number] Meropenem 500 mg In 100 100 Sodium Chloride 0.9% 100 ml @ 100 mls/hr IV Q12H [facility] Rx#:[id number] Norepinephrine 4 mg In 553.720 420.751 Dextrose 5% 250 ml @ Per Protocol IV TITR PRN Rx#: [id number] Tube Feeding 160 480 Other 60 150 Output: Urine 0 0 Hemodialysis 1900 Other: # Bowel Movements 2 2 Stool Characteristics Soft Soft Black Black Active Medications: Current Medications Acetaminophen (Tylenol 650mg/20.3ml Suspension) 650 mg GT DAILY [facility] Stop: 10/03/17 08:59 Last Admin: 08/06/17 08:16 Dose: 650 mg Albuterol/Ipratropium (Duoneb Neb) 3 ml HHN Q4HRT [facility] Stop: 10/02/17 10:59 Last Admin: 08/06/17 12:03 Dose: 3 ml Ascorbic Acid (Vitamin C) 500 mg PO DAILY [facility] Stop: 10/03/17 08:59 Last Admin: 08/06/17 08:16 Dose: 500 mg Aspirin (Aspirin Chewable) 81 mg GT DAILY [facility] Stop: 10/03/17 08:59 Last Admin: 08/06/17 08:16 Dose: 81 mg Atorvastatin Calcium (Lipitor) 40 mg GT HS [facility] Stop: 10/03/17 20:59 Last Admin: 08/05/17 21:24 Dose: 40 mg Bisacodyl (Dulcolax 10 Mg Supp) 10 mg RC Q72HR PRN PRN Reason: IF MOM INEFFECTIVE Stop: 10/02/17 14:13 Bisacodyl (Dulcolax 10 Mg Supp) 10 mg RC PRN PRN PRN Reason: IF MOM INEFFECTIVE Stop: 10/02/17 14:13 Chlorhexidine Gluconate (Peridex) 15 ml MM 0800,2000 [facility] Stop: 10/02/17 07:59 Last Admin: 08/06/17 08:17 Dose: 15 ml Cholecalciferol (Vitamin D3) 1,000 iu GT DAILY [facility] Stop: 10/03/17 08:59 Last Admin: 08/06/17 08:16 Dose: 1,000 iu Diltiazem HCl (Cardizem) 5 mg IVP Q4H PRN PRN Reason: INCREASE HEART RATE Stop: 10/01/17 21:59 Last Admin: 08/05/17 20:54 Dose: 5 mg Docusate Sodium (Colace) 100 mg PO DAILY [facility] Stop: 10/03/17 08:59 Last Admin: 08/06/17 08:17 Dose: Not Given Fluconazole (Diflucan) 200 mg in 100 mls @ 100 mls/hr IV Q24HR [facility] Stop: 10/02/17 14:59 Last Infusion: 08/05/17 15:35 Dose: Infused Dopamine HCl/Dextrose (Dopamine) 400 mg in 250 mls @ 0 mls/hr IV TITR PRN; Protocol; Per Protocol PRN Reason: BP MAINTENANCE (PER PROTOCOL) Stop: 10/02/17 07:47 Colistimethate Sodium 80 mg/ (Sodium Chloride) 100 mls @ 100 mls/hr IV Q36H [facility] Stop: 10/02/17 20:59 Last Infusion: 08/05/17 11:25 Dose: Infused Meropenem 500 mg/ Sodium (Chloride) 100 mls @ 100 mls/hr IV Q12H [facility] Stop: 10/04/17 16:59 Last Infusion: 08/06/17 05:40 Dose: Infused Norepinephrine Bitartrate 8 mg (/ Dextrose) 258 mls @ 0 mls/hr IV TITR PRN; Protocol; 0 MCG/MIN PRN Reason: BP MAINTENANCE (PER PROTOCOL) Stop: 10/05/17 13:59 Insulin Aspart (Novolog Insulin Sliding Scale) 0 units SUBQ Q6HR [facility] PRN Reason: Protocol Stop: 10/02/17 00:00 Last Admin: 08/06/17 11:54 Dose: 12 units Lorazepam (Ativan) 1 mg IVP Q2HR PRN; Protocol PRN Reason: Restlessness Stop: 10/01/17 21:18 Last Admin: 08/06/17 06:55 Dose: 1 mg Magnesium Hydroxide (Milk Of Magnesia) 30 ml GT Q72H PRN PRN Reason: NO BM FOR THREE DAYS Stop: 10/02/17 14:13 Mirtazapine (Remeron) 15 mg GT HS F[facility]IA PRN Reason: Protocol Stop: 10/02/17 20:59 Last Admin: 08/05/17 21:24 Dose: 15 mg Miscellaneous (Vancomycin Iv Per Pharmacy) 1 ea MC PRN PRN PRN Reason: PROTOCOL Stop: 10/01/17 20:42 Miscellaneous (Clinical Monitoring) 1 ea MC PRN PRN PRN Reason: RENAL Stop: 10/05/17 11:28 Multivitamins/Vitamin C (Theragran) 1 tab PO DAILY [facility] Stop: 10/03/17 08:59 Last Admin: 08/06/17 08:16 Dose: 1 tab Mupirocin (Bactroban Oint) 1 appl NS BID [facility] Stop: 08/09/17 17:01 Last Admin: 08/06/17 08:18 Dose: 1 appl Ondansetron HCl (Zofran Odt) 4 mg PO Q6HR PRN PRN Reason: Nausea / Vomiting Stop: 10/02/17 14:13 Pantoprazole Sodium (Protonix) 40 mg IVP DAILY [facility] Stop: 10/02/17 08:59 Last Admin: 08/06/17 08:16 Dose: 40 mg Simethicone (Mylicon) 80 mg GT Q6H PRN PRN Reason: GAS PAIN Stop: 10/02/17 14:13 Sodium Phosphate (Fleet Enema) 118 ml RC PRN PRN PRN Reason: IF MOM/DULCOLAX INEFFECTIVE Stop: 10/02/17 14:13 Temazepam (Restoril) 15 mg GT HS PRN; Protocol PRN Reason: Insomnia Stop: 10/02/17 14:13 Last Admin: 08/06/17 00:26 Dose: 15 mg Zinc Sulfate (Zinc Sulfate) 220 mg GT DAILY [facility] Stop: 10/03/17 08:59 Last Admin: 08/06/17 08:16 Dose: 220 mg General: Alert, No acute distress (scattered rhonchi) HEENT: Atraumatic, PERRLA, EOMI, Mucous membr. moist/pink Neck: Supple, +2 carotid pulse wo bruit Cardiovascular: Regular rate, Normal S1, Normal S2 Lungs: Other (few rhonchi) Abdomen: Bowel sounds, Soft, Distended Extremities: Edema (upper wxtrmities), Other (upper ext) Neurological: Sensation intact Skin: no Rash Psych/Mental Status: Mood NL - Procedures Procedures: Procedures Procedure Code Date BLOOD TRANSFUSION SERVICE 09453 08/02/17 EXCISION OF STOMACH, ENDO, DIAGN [id number] 07/10/17 INSPECTION OF LOWER INTESTINAL TRACT, ENDO [id number] 07/10/17 PERFORMANCE OF URINARY FILTRATION, <6 HRS/DAY [id number] 07/10/17 RESPIRATORY VENTILATION, 24-96 CONSECUTIVE HOURS [id number] 08/02/17 TRANSFUSE NONAUT RED BLOOD CELLS IN PERIPH VEIN, PERC [id number] 08/02/17 Assessment/Plan - Assessment Assessment: 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/L UE Edema, Cellulitis Shock Sepsis RF on Vent Acute on Chronic Decomp CHF G (-) Septicemia - Plan Plan: Lab - Result Diagrams 08/04/17 06:30 08/04/17 06:30 Current Medications Acetaminophen (Tylenol 650mg/20.3ml Suspension) 650 mg GT DAILY [facility]OU[facility]IA Stop: 10/03/17 08:59 Last Admin: 08/04/17 09:18 Dose: 650 mg Albuterol/Ipratropium (Duoneb Neb) 3 ml HHN Q4HRT [facility] Stop: 10/02/17 10:59 Last Admin: 08/04/17 11:25 Dose: 3 ml Ascorbic Acid (Vitamin C) 500 mg PO DAILY [facility] Stop: 10/03/17 08:59 Last Admin: 08/04/17 09:18 Dose: 500 mg Aspirin (Aspirin Chewable) 81 mg GT DAILY [facility]IA Stop: 10/03/17 08:59 Last Admin: 08/04/17 09:18 Dose: 81 mg Atorvastatin Calcium (Lipitor) 40 mg GT HS [facility]IA PRN Reason: Protocol Stop: 10/02/17 20:59 Last Admin: 08/03/17 20:19 Dose: 40 mg Bisacodyl (Dulcolax 10 Mg Supp) 10 mg RC Q72HR PRN PRN Reason: IF MOM INEFFECTIVE Stop: 10/02/17 14:13 Bisacodyl (Dulcolax 10 Mg Supp) 10 mg RC PRN PRN PRN Reason: IF MOM INEFFECTIVE Stop: 10/02/17 14:13 Chlorhexidine Gluconate (Peridex) 15 ml MM 0800,2000 [facility] Stop: 10/02/17 07:59 Last Admin: 08/04/17 08:00 Dose: 15 ml Cholecalciferol (Vitamin D3) 1,000 iu GT DAILY [facility] Stop: 10/03/17 08:59 Last Admin: 08/04/17 09:18 Dose: 1,000 iu Diltiazem HCl (Cardizem) 5 mg IVP Q4H PRN PRN Reason: INCREASE HEART RATE Stop: 10/01/17 21:59 Last Admin: 08/03/17 01:38 Dose: 5 mg Docusate Sodium (Colace) 100 mg PO DAILY [facility] Stop: 10/03/17 08:59 Last Admin: 08/04/17 09:18 Dose: 100 mg Heparin Sodium (Porcine) (Heparin) 5,000 units HD UD [facility] Stop: 08/05/17 08:59 Last Admin: 08/04/17 09:19 Dose: Not Given Fluconazole (Diflucan) 200 mg in 100 mls @ 100 mls/hr IV Q24HR [facility] Stop: 10/02/17 14:59 Last Infusion: 08/03/17 15:40 Dose: Infused Meropenem 500 mg/ Sodium (Chloride) 100 mls @ 100 mls/hr IV Q24H [facility] Stop: 10/02/17 12:59 Last Admin: 08/04/17 13:17 Dose: 100 mls/hr Dopamine HCl/Dextrose (Dopamine) 400 mg in 250 mls @ 0 mls/hr IV TITR PRN; Protocol; Per Protocol PRN Reason: BP MAINTENANCE (PER PROTOCOL) Stop: 10/02/17 07:47 Norepinephrine Bitartrate 4 mg (/ Dextrose) 254 mls @ 0 mls/hr IV TITR PRN; Protocol; Per Protocol PRN Reason: BP MAINTENANCE (PER PROTOCOL) Stop: 10/02/17 08:31 Last Admin: 08/03/17 23:47 Dose: 4 mcg/min, 15.24 mls/hr Colistimethate Sodium 80 mg/ (Sodium Chloride) 100 mls @ 100 mls/hr IV Q36H [facility] Stop: 10/02/17 20:59 Last Infusion: 08/03/17 21:20 Dose: Infused Insulin Aspart (Novolog Insulin Sliding Scale) 0 units SUBQ Q6HR [facility] PRN Reason: Protocol Stop: 10/02/17 00:00 Last Admin: 08/04/17 11:30 Dose: 6 units Lorazepam (Ativan) 1 mg IVP Q2HR PRN; Protocol PRN Reason: Restlessness Stop: 10/01/17 21:18 Last Admin: 08/04/17 01:05 Dose: 1 mg Magnesium Hydroxide (Milk Of Magnesia) 30 ml GT Q72H PRN PRN Reason: NO BM FOR THREE DAYS Stop: 10/02/17 14:13 Mirtazapine (Remeron) 15 mg GT HS [facility]IA PRN Reason: Protocol Stop: 10/02/17 20:59 Last Admin: 08/03/17 20:19 Dose: 15 mg Miscellaneous (Vancomycin Iv Per Pharmacy) 1 ea MC PRN PRN PRN Reason: PROTOCOL Stop: 10/01/17 20:42 Miscellaneous (Zosyn Iv Per Pharmacy) 1 ea PRN PRN PRN Reason: PROTOCOL Stop: 10/01/17 20:42 Multivitamins/Vitamin C (Theragran) 1 tab PO DAILY [facility] Stop: 10/03/17 08:59 Last Admin: 08/04/17 09:18 Dose: 1 tab Ondansetron HCl (Zofran Odt) 4 mg PO Q6HR PRN PRN Reason: Nausea / Vomiting Stop: 10/02/17 14:13 Pantoprazole Sodium (Protonix) 40 mg IVP DAILY [facility] Stop: 10/02/17 08:59 Last Admin: 08/04/17 09:18 Dose: 40 mg Simethicone (Mylicon) 80 mg GT Q6H PRN PRN Reason: GAS PAIN Stop: 10/02/17 14:13 Sodium Phosphate (Fleet Enema) 118 ml RC PRN PRN PRN Reason: IF MOM/DULCOLAX INEFFECTIVE Stop: 10/02/17 14:13 Temazepam (Restoril) 15 mg GT HS PRN; Protocol PRN Reason: Insomnia Stop: 10/02/17 14:13 Last Admin: 08/03/17 20:19 Dose: 15 mg Zinc Sulfate (Zinc Sulfate) 220 mg GT DAILY [facility] Stop: 10/03/17 08:59 Last Admin: 08/04/17 09:18 Dose: 220 Lab - Result Diagrams 08/06/17 07:15 08/06/17 07:15 pt. was dialyzed yessterday & tolerated it well Venous & Arterial duplex scans were negative for DVT or clots scheduled for dialysis again in am replace K CXR still showed b/l effusions Nutritional Asmnt/Malnutr-PDOC - Dietary Evaluation Malnutrition Findings (Please click <Entered> for more info): Nutritional Asmnt/Malnutrition Start: 08/05/17 15: 53 Text: Status: Complete Freq: Document 08/05/17 15:53 LCHENG (Rec: 08/05/17 16:19 LCHENG [id number]) Nutritional Asmnt/Malnutrition Patient General Information Nutritional Screening High Risk Diagnosis sepsis, respiratory failure, ESRD Pertinent Medical Hx/Surgical Hx ESRD on HD, respiratory failure with tracheostomy, dysphagia, a fib, anemia, HTN, GERD Subjective Information Pt on vent, not able to interview. Pt was on TF Novosource Renal 30ml/hr continuous, NPO today for surgery. Pt has dialysis ordred per nurse note. Current Diet Order/ Nutrition Support NPO on 08/05 Pertinent Medications vit C, vit D3, colace, novolog , remeron, theragran, protonix , zinc Pertinent Labs 08/05 Na 134, K 3.6, Cl 102, BUN 77, Cr 4.2, Glucose 216, POC 224-233 08/02 A1c 7.7 Nutritional Hx/Data Height 1.6 m Height (Calculated Centimeters) 160.0 Current Weight (lbs) 87.543 kg Weight (Calculated Kilograms) 87.5 Weight (Calculated Grams) 72125.3 [place] Body Weight 115 Body Mass Index (BMI) 34.2 Weight Status Obese GI Symptoms GI Symptoms None Last BM 08/04 Difficult in: None Skin Integrity/Comment: reddened to left/right inner thigh, right lateral index finger, right/left arm; skin tear to left abdominal fold; pressure area to coccy/sacral Estimated Nutritional Goals BEE in Kcals: Adj wt of IBW Calories/Kcals/Kg 30-35 adj wt 61kg Kcals Calculated 1747-5538 Protein: Adj wt of IBW Protein g/k.2-1.4 Protein Calculated 73-85 Fluid: ml 1830-2135ml (1ml/kcal) Nutritional Problem 1. Problem Problem altered nutrition related lab values Etiology hx of ESRD, endocrine dysfunction Signs/Symptoms: BUN 77, Cr 4.2, Glucose 216, POC 224-233, A1c 7.7 Malnutrition Alert Protein-Calorie Malnutrition N/A Is there a minimum of two criteria No selected? Query Text:Check all the applicable criteria. A minimum of two criteria are recommended for diagnosis of either severe or non-severe malnutrition. Intervention/Recommendation Comments 1. Resume TF Novosource Renal 30ml/hr continuous as ordered. increase to goal rate of 40ml /hr continuous as tolerated. This will provide 1920kcal, 87g protein and 688ml free water, meeting 100% of nutritional needs 2. Monitor TF rate, tolerance, wt weekly, skin integrity and labs 3. F/U as high risk in 2-3 days, 08/07-08/08 Expected Outcomes/Goals Expected Outcomes/Goals 1. Pt to meet at least 75% of nutritional needs via nutrition support with tolerance 2. Wt stability, skin to remain intact, labs to approach WNL.
[2017-08-06] MEDS: Diltiazem 5 mg/mL 5mL Vial IVP PRN (14:50)
[2017-08-06] MEDS ORDERED: Albumin 25% 25gm/100mL 25 GM/100 ML BTL IV ONE ×2 (14:53→14:54)
[2017-08-06] MEDS ORDERED: Albumin 25% 25gm/100mL 25 GM/100 ML BTL IV PRN ×2 (15:00)
[2017-08-06] MEDS: Fluconazole 200mg/100mL 200 MG/100 ML BAG IV SCH (16:01)
--- NOTE | 2017-08-06 18:45 | GI Progress Note ---
Subjective - Review of Systems Service Date: 08/06/17 Subjective: DELAYED NOTE ENTRY. PATIENT SEEN AND EXAMINED AT 1100. FOBT POSITIVE. DARK STOOLS. NATALIIA GT FEEDS. Objective - Results Result Diagrams: 08/06/17 07:15 08/06/17 07:15 Recent Labs: Laboratory Last Values WBC 11.8 Th/cmm (4.8-10.8) H D 08/06/17 07:15 RBC 3.16 Mil/cmm (3.80-5.20) L 08/06/17 07:15 Hgb 10.3 gm/dL (12-16) L 08/06/17 07:15 Hct 29.9 % (41.0-60) L D 08/06/17 07:15 MCV 94.5 fl (81-100) 08/06/17 07:15 MCH 32.5 pg (27.0-31.0) H 08/06/17 07:15 MCHC Differential 34.4 pg (28.0-36.0) 08/06/17 07:15 RDW 18.2 % (11.5-20.0) 08/06/17 07:15 Plt Count 213 Th/cmm (150-400) 08/06/17 07:15 MPV 11.0 fl 08/06/17 07:15 Neutrophils % 83.3 % (40.0-80.0) H 08/06/17 07:15 Band Neutrophils % 8 % (0-10) 08/05/17 06:15 Lymphocytes % 5.0 % (20.0-50.0) L 08/06/17 07:15 Monocytes % 8.7 % (2.0-10.0) 08/06/17 07:15 Eosinophils % 3.0 % (0.0-5.0) 08/06/17 07:15 Basophils % 0.0 % (0.0-2.0) 08/06/17 07:15 Neutrophils (Manual) 79 % (40-80) 08/05/17 06:15 Lymphocytes 2 % (20-50) L 08/05/17 06:15 Monocytes 6 % (2-10) 08/05/17 06:15 Eosinophils 5 % (0-5) 08/05/17 06:15 Basophils 0 % (0-3) 08/02/17 15:37 Hypochromia 1+ 08/02/17 15:37 Platelet Estimate ADEQUATE (NORMAL) 08/05/17 06:15 Platelet Morphology NORMAL (NORMAL) 08/02/17 15:37 Crenated Cell 2+ 08/02/17 15:37 RBC Morph Micro Appear ABNORMAL (NORMAL) 08/02/17 15:37 PT 12.9 SECONDS (9.5-11.5) H 08/02/17 13:58 INR 1.23 (0.5-1.4) 08/02/17 13:58 PTT (Actin FS) 33.6 SECONDS (26.0-38.0) 08/02/17 13:58 Specimen Source Arterial 08/03/17 08:58 Sample Site Right Radial 08/03/17 08:58 pH 7.42 (7.35-7.45) 08/03/17 08:58 pCO2 37.0 mmHg (35.0-45.0) 08/03/17 08:58 pO2 204.0 mmHg (80.0-100.0) H 08/03/17 08:58 HCO3 24.8 mEq/L (20.0-26.0) 08/03/17 08:58 Base Excess -0.2 mEq/L (-3.0-3.0) 08/03/17 08:58 O2 Saturation 100.0 % (92.0-100.0) 08/03/17 08:58 Rhett Test Positive 08/03/17 08:58 Vent Rate 12 08/03/17 08:58 Inspired O2 60 08/03/17 08:58 Tidal Volume 450 08/03/17 08:58 PEEP 5 08/03/17 08:58 Pressure (ins/psv/peep) NA 08/03/17 08:58 Critical Value LZHANG 08/03/17 08:58 Sodium 131 mEq/L (136-145) L 08/06/17 07:15 Potassium 3.8 mEq/L (3.5-5.1) 08/06/17 07:15 Chloride 93 mEq/L (98-107) L 08/06/17 07:15 Carbon Dioxide 25.1 mEq/L (21.0-31.0) 08/06/17 07:15 Anion Gap 16.7 (7.0-16.0) H 08/06/17 07:15 BUN 47 mg/dL (7-25) H 08/06/17 07:15 Creatinine 3.0 mg/dL (0.6-1.2) H 08/06/17 07:15 Est GFR ( Amer) TNP 08/06/17 07:15 Est GFR (Non-Af Amer) TNP 08/06/17 07:15 BUN/Creatinine Ratio 15.7 08/06/17 07:15 Glucose 338 mg/dL (70-105) H 08/06/17 07:15 POC Glucose 352 MG/DL (70 - 105) H 08/06/17 18:15 Hemoglobin A1c % 7.7 % (4.0-6.0) H 08/02/17 15:37 Whole Bld Lactic Acid 1.97 mmol/L (0.60-1.99) 08/02/17 13:49 Calcium 8.8 mg/dL (8.6-10.3) 08/06/17 07:15 Magnesium 3.0 mg/dL (1.9-2.7) H 08/05/17 06:15 Iron 10 ug/dL (27-139) L 08/02/17 13:56 TIBC 135 ug/dL (250-450) L 08/02/17 13:56 Iron Saturation 7 % (15-55) L 08/02/17 13:56 Unsaturated IBC 125 ug/dL (118-369) 08/02/17 13:56 Ferritin 588 ng/mL (15-150) H 08/02/17 13:56 Total Bilirubin 0.4 mg/dL (0.3-1.0) 08/02/17 13:57 Direct Bilirubin 0.09 mg/dL (0.0-0.2) 08/02/17 13:57 AST 26 U/L (13-39) 08/02/17 13:57 ALT 15 U/L (7-52) 08/02/17 13:57 Alkaline Phosphatase 120 U/L (34-104) H 08/02/17 13:57 Troponin I 1.16 ng/mL (0.01-0.05) H* D 08/04/17 06:30 B-Natriuretic Peptide 372.0 pg/mL (5.0-100.0) H 08/05/17 06:15 Total Protein 5.9 gm/dL (6.0-8.3) L 08/02/17 13:57 Albumin 3.0 gm/dL (3.7-5.3) L 08/02/17 13:57 Globulin 2.9 gm/dL 08/02/17 13:57 Albumin/Globulin Ratio 1.0 (1.0-1.8) 08/02/17 13:57 Triglycerides 132 mg/dL (<150) 08/04/17 06:30 Cholesterol 55 mg/dL (<200) 08/04/17 06:30 LDL Cholesterol Direct 16 mg/dL (75-193) L 08/04/17 06:30 HDL Cholesterol 13 mg/dL (23-92) L 08/04/17 06:30 Amylase 12 U/L (29-103) L 08/02/17 13:43 Lipase 4 U/L (11-82) L 08/02/17 13:43 TSH 3.74 uIU/ml (0.34-5.60) 08/04/17 06:30 Stool Occult Blood POSITIVE (NEGATIVE) H 08/03/17 17:50 Random Vancomycin 26.2 ug/mL (5.0-40.0) 08/05/17 06:15 Blood Type A POSITIVE 08/02/17 20:54 Antibody Screen POSITIVE 08/02/17 20:54 Crossmatch See Detail 08/02/17 20:54 - Physical Exam Vitals and I&O: Vital Signs Temp 98.0 F 08/06/17 16:00 Pulse 109 08/06/17 17:40 Resp 16 08/06/17 16:00 BP 94/64 08/06/17 16:45 Pulse Ox 100 08/06/17 17:40 Intake & Output 08/05/17 08/06/17 08/06/17 18:59 06:59 18:59 Intake Total 520 1283.720 520.751 Output Total 0 1900 Balance 520 -616.280 520.751 Weight (lbs) 87.543 kg 86.806 kg Intake: Intake, IV Amount 300 653.720 520.751 Colistimethate 80 mg In 100 Sodium Chloride 0.9% 100 ml @ 100 mls/hr IV Q36H [facility] Rx#:[id number] Fluconazole 200mg/100mL 100 100 200 mg In 100 ml @ 100 mls/hr IV Q24HR [facility] Rx#: [id number] Meropenem 500 mg In 100 100 Sodium Chloride 0.9% 100 ml @ 100 mls/hr IV Q12H [facility] Rx#:[id number] Norepinephrine 4 mg In 553.720 420.751 Dextrose 5% 250 ml @ Per Protocol IV TITR PRN Rx#: [id number] Tube Feeding 160 480 Other 60 150 Output: Urine 0 0 Hemodialysis 1900 Other: # Bowel Movements 2 2 Stool Characteristics Soft Soft Black Black Active Medications: Current Medications Acetaminophen (Tylenol 650mg/20.3ml Suspension) 650 mg GT DAILY [facility] Stop: 10/03/17 08:59 Last Admin: 08/06/17 08:16 Dose: 650 mg Albuterol/Ipratropium (Duoneb Neb) 3 ml HHN Q4HRT [facility] Stop: 10/02/17 10:59 Last Admin: 08/06/17 15:55 Dose: 3 ml Ascorbic Acid (Vitamin C) 500 mg PO DAILY [facility] Stop: 10/03/17 08:59 Last Admin: 08/06/17 08:16 Dose: 500 mg Aspirin (Aspirin Chewable) 81 mg GT DAILY [facility] Stop: 10/03/17 08:59 Last Admin: 08/06/17 08:16 Dose: 81 mg Atorvastatin Calcium (Lipitor) 40 mg GT HS [facility] Stop: 10/03/17 20:59 Last Admin: 08/05/17 21:24 Dose: 40 mg Bisacodyl (Dulcolax 10 Mg Supp) 10 mg RC Q72HR PRN PRN Reason: IF MOM INEFFECTIVE Stop: 10/02/17 14:13 Bisacodyl (Dulcolax 10 Mg Supp) 10 mg RC PRN PRN PRN Reason: IF MOM INEFFECTIVE Stop: 10/02/17 14:13 Chlorhexidine Gluconate (Peridex) 15 ml MM 0800,2000 [facility] Stop: 10/02/17 07:59 Last Admin: 08/06/17 08:17 Dose: 15 ml Cholecalciferol (Vitamin D3) 1,000 iu GT DAILY [facility] Stop: 10/03/17 08:59 Last Admin: 08/06/17 08:16 Dose: 1,000 iu Diltiazem HCl (Cardizem) 5 mg IVP Q4H PRN PRN Reason: INCREASE HEART RATE Stop: 10/01/17 21:59 Last Admin: 08/06/17 14:50 Dose: 5 mg Docusate Sodium (Colace) 100 mg PO DAILY [facility] Stop: 10/03/17 08:59 Last Admin: 08/06/17 08:17 Dose: Not Given Fluconazole (Diflucan) 200 mg in 100 mls @ 100 mls/hr IV Q24HR [facility] Stop: 10/02/17 14:59 Last Infusion: 08/06/17 18:33 Dose: Infused Dopamine HCl/Dextrose (Dopamine) 400 mg in 250 mls @ 0 mls/hr IV TITR PRN; Protocol; Per Protocol PRN Reason: BP MAINTENANCE (PER PROTOCOL) Stop: 10/02/17 07:47 Colistimethate Sodium 80 mg/ (Sodium Chloride) 100 mls @ 100 mls/hr IV Q36H [facility] Stop: 10/02/17 20:59 Last Infusion: 08/05/17 11:25 Dose: Infused Norepinephrine Bitartrate 8 mg (/ Dextrose) 258 mls @ 0 mls/hr IV TITR PRN; Protocol; 0 MCG/MIN PRN Reason: BP MAINTENANCE (PER PROTOCOL) Stop: 10/05/17 13:59 Last Admin: 08/06/17 17:13 Dose: 12 mcg/min, 23.22 mls/hr Diltiazem HCl 125 mg/ Dextrose 125 mls @ 0 mls/hr IV TITR [facility]; 0 MG/HR PRN Reason: Protocol Stop: 10/05/17 14:59 Last Admin: 08/06/17 16:01 Dose: 5 mg/hr, 5 mls/hr Piperacillin Sod/Tazobactam (Sod 2.25 gm/ Sodium Chloride) 50 mls @ 100 mls/hr IV Q6HR [facility] Stop: 10/05/17 17:59 Insulin Aspart (Novolog Insulin Sliding Scale) 0 units SUBQ Q6HR [facility] PRN Reason: Protocol Stop: 10/02/17 00:00 Last Admin: 08/06/17 18:26 Dose: 10 units Lorazepam (Ativan) 1 mg IVP Q2HR PRN; Protocol PRN Reason: Restlessness Stop: 10/01/17 21:18 Last Admin: 08/06/17 16:28 Dose: 1 mg Magnesium Hydroxide (Milk Of Magnesia) 30 ml GT Q72H PRN PRN Reason: NO BM FOR THREE DAYS Stop: 10/02/17 14:13 Mirtazapine (Remeron) 15 mg GT HS [facility] PRN Reason: Protocol Stop: 10/02/17 20:59 Last Admin: 08/05/17 21:24 Dose: 15 mg Miscellaneous (Vancomycin Iv Per Pharmacy) 1 [facility] PRN PRN PRN Reason: PROTOCOL Stop: 10/01/17 20:42 Miscellaneous (Clinical Monitoring) 1 [facility] PRN PRN PRN Reason: RENAL Stop: 10/05/17 11:28 Miscellaneous (Zosyn Iv Per Pharmacy) 1 [facility] PRN PRN PRN Reason: PROTOCOL Stop: 10/05/17 15:59 Multivitamins/Vitamin C (Theragran) 1 tab PO DAILY [facility] Stop: 10/03/17 08:59 Last Admin: 08/06/17 08:16 Dose: 1 tab Mupirocin (Bactroban Oint) 1 appl NS BID [facility] Stop: 08/09/17 17:01 Last Admin: 08/06/17 16:28 Dose: 1 appl Ondansetron HCl (Zofran Odt) 4 mg PO Q6HR PRN PRN Reason: Nausea / Vomiting Stop: 10/02/17 14:13 Pantoprazole Sodium (Protonix) 40 mg IVP DAILY [facility] Stop: 10/02/17 08:59 Last Admin: 08/06/17 08:16 Dose: 40 mg Simethicone (Mylicon) 80 mg GT Q6H PRN PRN Reason: GAS PAIN Stop: 10/02/17 14:13 Sodium Phosphate (Fleet Enema) 118 ml RC PRN PRN PRN Reason: IF MOM/DULCOLAX INEFFECTIVE Stop: 10/02/17 14:13 Temazepam (Restoril) 15 mg GT HS PRN; Protocol PRN Reason: Insomnia Stop: 10/02/17 14:13 Last Admin: 08/06/17 00:26 Dose: 15 mg Zinc Sulfate (Zinc Sulfate) 220 mg GT DAILY [facility] Stop: 10/03/17 08:59 Last Admin: 08/06/17 08:16 Dose: 220 mg General: Alert, No acute distress (scattered rhonchi) Neck: Supple, Other (TRACH) Cardiovascular: Regular rate Lungs: Other (few rhonchi) Abdomen: Bowel sounds, Soft, Other (INTACT GT) Skin: no Rash - Procedures Procedures: Procedures Procedure Code Date BLOOD TRANSFUSION SERVICE 78420 08/02/17 EXCISION OF STOMACH, ENDO, DIAGN [id number] 07/10/17 INSPECTION OF LOWER INTESTINAL TRACT, ENDO [id number] 07/10/17 PERFORMANCE OF URINARY FILTRATION, <6 HRS/DAY [id number] 07/10/17 RESPIRATORY VENTILATION, 24-96 CONSECUTIVE HOURS [id number] 08/02/17 TRANSFUSE NONAUT RED BLOOD CELLS IN PERIPH VEIN, PERC [id number] 08/02/17 Assessment/Plan - Assessment Assessment: IMPRESSION: 1. ANEMIA WITH OB POSITIVE. 2. RECENT EGD AND COLONOSCOPY 2 WEEKS AGO SHOWED EROSIVE GASTRITIS, INTACT GT AND HEMORRHOIDS. MAY HAVE SB BLEEDING. 3. VDRF/TRACH. 4. DYSPHAGIA S/P PEG. 5. ESRD. RECS: 1. MONITOR HGB; TRANSFUSE PRN. 2. MAY NEED REPEAT BLEEDING SCAN AND/OR SB SERIES. MAY NEED DOUBLE BALLOON ENTEROSCOPY AT [facility] IF ONGOING BLEEDING. 3. PROTONIX. 4. GT FEEDS NATALIIA.
[2017-08-06] MEDS: Piperacillin/Tazobact 2.25 gm in 0.9% NS 50 ML IV SCH (21:53)
[2017-08-07] MEDS: Piperacillin/Tazobact 2.25 gm in 0.9% NS 50 ML IV SCH ×5 (02:08→23:30)
[2017-08-07] MEDS: Albuterol/Ipratropium Neb 3 ML AERS HHN SCH ×6 (03:22→23:20)
[2017-08-07] MEDS: INSULIN ASPART SLIDING SCALE 100 UNITS/ML UNIT SUBQ SCH ×4 (05:47→23:28)
[2017-08-07 06:17] LABS: HEMATOCRIT 27.9 % (41.0-60); HEMOGLOBIN 9.8 gm/dL (12-16); MEAN CORPUSCULAR HEMOGLOBIN 33.4 pg (27.0-31.0); MEAN CORPUSCULAR HGB CONC 35.2 pg (28.0-36.0); MEAN PLATELET VOLUME 11.4 fl; PLATELET COUNT 195 Th/cmm (150-400); RED BLOOD COUNT 2.94 Mil/cmm (3.80-5.20); RED CELL DISTRIBUTION WIDTH 17.8 % (11.5-20.0)
[2017-08-07 06:27] LABS: MANUAL DIFF REQUIRED? YES; WHITE BLOOD COUNT 13.8 Th/cmm (4.8-10.8)
[2017-08-07 06:38] LABS: ANION GAP 16.5 (7.0-16.0); BUN - UREA NITROGEN 58 mg/dL (7-25); CALCIUM SERUM 8.7 mg/dL (8.6-10.3); CARBON DIOXIDE 24.1 mEq/L (21.0-31.0); CHLORIDE 95 mEq/L (98-107); CREATININE - SERUM 3.4 mg/dL (0.6-1.2); GLUCOSE 361 mg/dL (70-105); POTASSIUM SERUM 3.6 mEq/L (3.5-5.1); SODIUM SERUM 132 mEq/L (136-145)
[2017-08-07] MEDS: Chlorhexidine Gluconate 0.12% 15mL Mouthwash MM SCH ×2 (07:10→20:15)
[2017-08-07 07:15] LABS: BAND NEUTROPHILE 8 % (0-10); LYMPHOCYTE 5 % (20-50); MONOCYTE 12 % (2-10); NEUTROPHILS 74 % (40-80); TOTAL CELLS COUNTED 100
[2017-08-07 07:16] LABS: ANISOCYTOSIS 1+; BASOPHIL 1 % (0-3); PLATELET ESTIMATE ADEQUATE (NORMAL)
[2017-08-07] MEDS: Aspirin 81mg Chewable Tab GT SCH (09:38)
[2017-08-07] MEDS: Multivitamin Tab PO SCH (09:38)
--- NOTE | 2017-08-07 11:38 | General Progress Note ---
Subjective - Review of Systems Service Date: 08/07/17 Events since last encounter: left arm shunt functional but swollen Objective - Results Result Diagrams: 08/07/17 05:45 08/07/17 05:45 Recent Labs: Laboratory Last Values WBC 13.8 Th/cmm (4.8-10.8) H 08/07/17 05:45 RBC 2.94 Mil/cmm (3.80-5.20) L 08/07/17 05:45 Hgb 9.8 gm/dL (12-16) L 08/07/17 05:45 Hct 27.9 % (41.0-60) L 08/07/17 05:45 MCV 95.0 fl (81-100) 08/07/17 05:45 MCH 33.4 pg (27.0-31.0) H 08/07/17 05:45 MCHC Differential 35.2 pg (28.0-36.0) 08/07/17 05:45 RDW 17.8 % (11.5-20.0) 08/07/17 05:45 Plt Count 195 Th/cmm (150-400) 08/07/17 05:45 MPV 11.4 fl 08/07/17 05:45 Neutrophils % 83.3 % (40.0-80.0) H 08/06/17 07:15 Band Neutrophils % 8 % (0-10) 08/07/17 05:45 Lymphocytes % 5.0 % (20.0-50.0) L 08/06/17 07:15 Monocytes % 8.7 % (2.0-10.0) 08/06/17 07:15 Eosinophils % 3.0 % (0.0-5.0) 08/06/17 07:15 Basophils % 0.0 % (0.0-2.0) 08/06/17 07:15 Neutrophils (Manual) 74 % (40-80) 08/07/17 05:45 Lymphocytes 5 % (20-50) L 08/07/17 05:45 Monocytes 12 % (2-10) H 08/07/17 05:45 Eosinophils 5 % (0-5) 08/05/17 06:15 Basophils 1 % (0-3) 08/07/17 05:45 Hypochromia 1+ 08/02/17 15:37 Platelet Estimate ADEQUATE (NORMAL) 08/07/17 05:45 Platelet Morphology NORMAL (NORMAL) 08/02/17 15:37 Anisocytosis 1+ 08/07/17 05:45 Crenated Cell 2+ 08/02/17 15:37 RBC Morph Micro Appear ABNORMAL (NORMAL) 08/02/17 15:37 PT 12.9 SECONDS (9.5-11.5) H 08/02/17 13:58 INR 1.23 (0.5-1.4) 08/02/17 13:58 PTT (Actin FS) 33.6 SECONDS (26.0-38.0) 08/02/17 13:58 Specimen Source Arterial 08/03/17 08:58 Sample Site Right Radial 08/03/17 08:58 pH 7.42 (7.35-7.45) 08/03/17 08:58 pCO2 37.0 mmHg (35.0-45.0) 08/03/17 08:58 pO2 204.0 mmHg (80.0-100.0) H 08/03/17 08:58 HCO3 24.8 mEq/L (20.0-26.0) 08/03/17 08:58 Base Excess -0.2 mEq/L (-3.0-3.0) 08/03/17 08:58 O2 Saturation 100.0 % (92.0-100.0) 08/03/17 08:58 Rhett Test Positive 08/03/17 08:58 Vent Rate 12 08/03/17 08:58 Inspired O2 60 08/03/17 08:58 Tidal Volume 450 08/03/17 08:58 PEEP 5 08/03/17 08:58 Pressure (ins/psv/peep) NA 08/03/17 08:58 Critical Value LZHANG 08/03/17 08:58 Sodium 132 mEq/L (136-145) L 08/07/17 05:45 Potassium 3.6 mEq/L (3.5-5.1) 08/07/17 05:45 Chloride 95 mEq/L (98-107) L 08/07/17 05:45 Carbon Dioxide 24.1 mEq/L (21.0-31.0) 08/07/17 05:45 Anion Gap 16.5 (7.0-16.0) H 08/07/17 05:45 BUN 58 mg/dL (7-25) H 08/07/17 05:45 Creatinine 3.4 mg/dL (0.6-1.2) H 08/07/17 05:45 Est GFR ( Amer) TNP 08/07/17 05:45 Est GFR (Non-Af Amer) TNP 08/07/17 05:45 BUN/Creatinine Ratio 17.1 08/07/17 05:45 Glucose 361 mg/dL (70-105) H 08/07/17 05:45 POC Glucose 339 MG/DL (70 - 105) H 08/07/17 05:47 Hemoglobin A1c % 7.7 % (4.0-6.0) H 08/02/17 15:37 Whole Bld Lactic Acid 1.97 mmol/L (0.60-1.99) 08/02/17 13:49 Calcium 8.7 mg/dL (8.6-10.3) 08/07/17 05:45 Magnesium 3.0 mg/dL (1.9-2.7) H 08/05/17 06:15 Iron 10 ug/dL (27-139) L 08/02/17 13:56 TIBC 135 ug/dL (250-450) L 08/02/17 13:56 Iron Saturation 7 % (15-55) L 08/02/17 13:56 Unsaturated IBC 125 ug/dL (118-369) 08/02/17 13:56 Ferritin 588 ng/mL (15-150) H 08/02/17 13:56 Total Bilirubin 0.4 mg/dL (0.3-1.0) 08/02/17 13:57 Direct Bilirubin 0.09 mg/dL (0.0-0.2) 08/02/17 13:57 AST 26 U/L (13-39) 08/02/17 13:57 ALT 15 U/L (7-52) 08/02/17 13:57 Alkaline Phosphatase 120 U/L (34-104) H 08/02/17 13:57 Troponin I 1.16 ng/mL (0.01-0.05) H* D 08/04/17 06:30 B-Natriuretic Peptide 372.0 pg/mL (5.0-100.0) H 08/05/17 06:15 Total Protein 5.9 gm/dL (6.0-8.3) L 08/02/17 13:57 Albumin 3.0 gm/dL (3.7-5.3) L 08/02/17 13:57 Globulin 2.9 gm/dL 08/02/17 13:57 Albumin/Globulin Ratio 1.0 (1.0-1.8) 08/02/17 13:57 Triglycerides 132 mg/dL (<150) 08/04/17 06:30 Cholesterol 55 mg/dL (<200) 08/04/17 06:30 LDL Cholesterol Direct 16 mg/dL (75-193) L 08/04/17 06:30 HDL Cholesterol 13 mg/dL (23-92) L 08/04/17 06:30 Amylase 12 U/L (29-103) L 08/02/17 13:43 Lipase 4 U/L (11-82) L 08/02/17 13:43 TSH 3.74 uIU/ml (0.34-5.60) 08/04/17 06:30 Stool Occult Blood POSITIVE (NEGATIVE) H 08/03/17 17:50 Random Vancomycin 19.3 ug/mL (5.0-40.0) 08/07/17 05:45 Blood Type A POSITIVE 08/02/17 20:54 Antibody Screen POSITIVE 08/02/17 20:54 Crossmatch See Detail 08/02/17 20:54 - Physical Exam Vitals and I&O: Vital Signs Temp 98.4 F 08/07/17 08:00 Pulse 73 08/07/17 10:59 Resp 16 08/07/17 08:00 BP 89/64 08/07/17 08:45 Pulse Ox 100 08/07/17 10:59 Intake & Output 08/06/17 08/07/17 08/07/17 18:59 06:59 18:59 Intake Total 0565.717 3610.596 199.112 Output Total 0 Balance 8368.696 4418.596 199.112 Weight (lbs) 86.636 kg 87.26 kg Intake: Intake, IV Amount 520.751 612.596 199.112 Colistimethate 80 mg In 100 Sodium Chloride 0.9% 100 ml @ 100 mls/hr IV Q36H [facility] Rx#:[id number] Diltiazem 125 mg In 39.417 Dextrose 5% 100 ml @ 0 MG /HR IV TITR [facility] Rx#: [id number] Fluconazole 200mg/100mL 100 200 mg In 100 ml @ 100 mls/hr IV Q24HR [facility] Rx#: [id number] Norepinephrine 4 mg In 420.751 Dextrose 5% 250 ml @ Per Protocol IV TITR PRN Rx#: [id number] Norepinephrine 8 mg In 223.179 199.112 Dextrose 5% 250 ml @ 0 MCG/MIN IV TITR PRN Rx#: [id number] Piperacillin Sodium/ 150 Tazobact 2.25 gm In Sodium Chloride 0.9% 50 ml @ 100 mls/hr IV Q6HR [facility] Rx#:[id number] Tube Feeding 600 600 Albumin 100 Other 80 380 Output: Urine 0 Other: # Bowel Movements 0 1 Active Medications: Current Medications Acetaminophen (Tylenol 650mg/20.3ml Suspension) 650 mg GT DAILY [facility] Stop: 10/03/17 08:59 Last Admin: 08/07/17 09:38 Dose: 650 mg Albuterol/Ipratropium (Duoneb Neb) 3 ml HHN Q4HRT [facility] Stop: 10/02/17 10:59 Last Admin: 08/07/17 10:59 Dose: 3 ml Ascorbic Acid (Vitamin C) 500 mg PO DAILY [facility] Stop: 10/03/17 08:59 Last Admin: 08/07/17 09:38 Dose: 500 mg Aspirin (Aspirin Chewable) 81 mg GT DAILY [facility] Stop: 10/03/17 08:59 Last Admin: 08/07/17 09:38 Dose: 81 mg Atorvastatin Calcium (Lipitor) 40 mg GT HS [facility] Stop: 10/03/17 20:59 Last Admin: 08/06/17 21:50 Dose: 40 mg Bisacodyl (Dulcolax 10 Mg Supp) 10 mg RC Q72HR PRN PRN Reason: IF MOM INEFFECTIVE Stop: 10/02/17 14:13 Bisacodyl (Dulcolax 10 Mg Supp) 10 mg RC PRN PRN PRN Reason: IF MOM INEFFECTIVE Stop: 10/02/17 14:13 Chlorhexidine Gluconate (Peridex) 15 ml MM 0800,2000 [facility] Stop: 10/02/17 07:59 Last Admin: 08/07/17 07:10 Dose: 15 ml Cholecalciferol (Vitamin D3) 1,000 iu GT DAILY [facility] Stop: 10/03/17 08:59 Last Admin: 08/07/17 09:38 Dose: 1,000 iu Diltiazem HCl (Cardizem) 5 mg IVP Q4H PRN PRN Reason: INCREASE HEART RATE Stop: 10/01/17 21:59 Last Admin: 08/06/17 14:50 Dose: 5 mg Docusate Sodium (Colace) 100 mg PO DAILY [facility] Stop: 10/03/17 08:59 Last Admin: 08/07/17 09:39 Dose: 100 mg Fluconazole (Diflucan) 200 mg in 100 mls @ 100 mls/hr IV Q24HR [facility] Stop: 10/02/17 14:59 Last Infusion: 08/06/17 18:33 Dose: Infused Dopamine HCl/Dextrose (Dopamine) 400 mg in 250 mls @ 0 mls/hr IV TITR PRN; Protocol; Per Protocol PRN Reason: BP MAINTENANCE (PER PROTOCOL) Stop: 10/02/17 07:47 Colistimethate Sodium 80 mg/ (Sodium Chloride) 100 mls @ 100 mls/hr IV Q36H [facility] Stop: 10/02/17 20:59 Last Infusion: 08/06/17 23:55 Dose: Infused Norepinephrine Bitartrate 8 mg (/ Dextrose) 258 mls @ 0 mls/hr IV TITR PRN; Protocol; 0 MCG/MIN PRN Reason: BP MAINTENANCE (PER PROTOCOL) Stop: 10/05/17 13:59 Last Admin: 08/07/17 09:48 Dose: 16 mcg/min, 30.96 mls/hr Diltiazem HCl 125 mg/ Dextrose 125 mls @ 0 mls/hr IV TITR [facility]; 0 MG/HR PRN Reason: Protocol Stop: 10/05/17 14:59 Last Titration: 08/06/17 23:54 Dose: 5 mg/hr, 5 mls/hr Piperacillin Sod/Tazobactam (Sod 2.25 gm/ Sodium Chloride) 50 mls @ 100 mls/hr IV Q6HR [facility] Stop: 10/05/17 17:59 Last Infusion: 08/07/17 06:05 Dose: Infused Insulin Aspart (Novolog Insulin Sliding Scale) 0 units SUBQ Q6HR [facility] PRN Reason: Protocol Stop: 10/02/17 00:00 Last Admin: 08/07/17 05:47 Dose: 8 units Lorazepam (Ativan) 1 mg IVP Q2HR PRN; Protocol PRN Reason: Restlessness Stop: 10/01/17 21:18 Last Admin: 08/07/17 10:20 Dose: 1 mg Magnesium Hydroxide (Milk Of Magnesia) 30 ml GT Q72H PRN PRN Reason: NO BM FOR THREE DAYS Stop: 10/02/17 14:13 Mirtazapine (Remeron) 15 mg GT HS [facility] PRN Reason: Protocol Stop: 10/02/17 20:59 Last Admin: 08/06/17 21:50 Dose: 15 mg Miscellaneous (Vancomycin Iv Per Pharmacy) 1 [facility] PRN PRN PRN Reason: PROTOCOL Stop: 10/01/17 20:42 Miscellaneous (Clinical Monitoring) 1 [facility] PRN PRN PRN Reason: RENAL Stop: 10/05/17 11:28 Miscellaneous (Zosyn Iv Per Pharmacy) 1 [facility] PRN PRN PRN Reason: PROTOCOL Stop: 10/05/17 15:59 Multivitamins/Vitamin C (Theragran) 1 tab PO DAILY FOUZIA Stop: 10/03/17 08:59 Last Admin: 08/07/17 09:38 Dose: 1 tab Mupirocin (Bactroban Oint) 1 appl NS BID FOUZIA Stop: 08/09/17 17:01 Last Admin: 08/07/17 09:39 Dose: 1 appl Ondansetron HCl (Zofran Odt) 4 mg PO Q6HR PRN PRN Reason: Nausea / Vomiting Stop: 10/02/17 14:13 Pantoprazole Sodium (Protonix) 40 mg IVP DAILY FOUZIA Stop: 10/02/17 08:59 Last Admin: 08/07/17 09:38 Dose: 40 mg Simethicone (Mylicon) 80 mg GT Q6H PRN PRN Reason: GAS PAIN Stop: 10/02/17 14:13 Sodium Phosphate (Fleet Enema) 118 ml RC PRN PRN PRN Reason: IF MOM/DULCOLAX INEFFECTIVE Stop: 10/02/17 14:13 Temazepam (Restoril) 15 mg GT HS PRN; Protocol PRN Reason: Insomnia Stop: 10/02/17 14:13 Last Admin: 08/06/17 00:26 Dose: 15 mg Zinc Sulfate (Zinc Sulfate) 220 mg GT DAILY FOUZIA Stop: 10/03/17 08:59 Last Admin: 08/07/17 09:38 Dose: 220 mg General: Alert, No acute distress (scattered rhonchi) HEENT: Atraumatic, PERRLA, EOMI, Mucous membr. moist/pink Neck: Supple, Other (TRACH) Cardiovascular: Regular rate Lungs: Other (few rhonchi) Abdomen: Bowel sounds, Soft, Other (INTACT GT) Extremities: Edema (upper wxtrmities), Other (upper ext) Neurological: Sensation intact Skin: no Rash Psych/Mental Status: Mood NL - Procedures Procedures: Procedures Procedure Code Date BLOOD TRANSFUSION SERVICE 63363 08/02/17 EXCISION OF STOMACH, ENDO, DIAGN [id number] 07/10/17 INSPECTION OF LOWER INTESTINAL TRACT, ENDO 2CRH3AT 07/10/17 PERFORMANCE OF URINARY FILTRATION, <6 HRS/DAY [id number] 07/10/17 RESPIRATORY VENTILATION, GREATER THAN 96 CONSECUTIVE HOURS [id number] 08/02/17 TRANSFUSE NONAUT RED BLOOD CELLS IN PERIPH VEIN, PERC [id number] 08/02/17 Nutritional Asmnt/Malnutr-PDOC - Dietary Evaluation Malnutrition Findings (Please click <Entered> for more info): Nutritional Asmnt/Malnutrition Start: 08/05/17 15: 53 Text: Status: Complete Freq: Document 08/05/17 15:53 NAVIN (Rec: 08/05/17 16:19 [id number] Nutritional Asmnt/Malnutrition Patient General Information Nutritional Screening High Risk Diagnosis sepsis, respiratory failure, ESRD Pertinent Medical Hx/Surgical Hx ESRD on HD, respiratory failure with tracheostomy, dysphagia, a fib, anemia, HTN, GERD Subjective Information Pt on vent, not able to interview. Pt was on TF Novosource Renal 30ml/hr continuous, NPO today for surgery. Pt has dialysis ordred per nurse note. Current Diet Order/ Nutrition Support NPO on 08/05 Pertinent Medications vit C, vit D3, colace, novolog , remeron, theragran, protonix , zinc Pertinent Labs 08/05 Na 134, K 3.6, Cl 102, BUN 77, Cr 4.2, Glucose 216, POC 224-233 08/02 A1c 7.7 Nutritional Hx/Data Height 1.6 m Height (Calculated Centimeters) 160.0 Current Weight (lbs) 87.543 kg Weight (Calculated Kilograms) 87.5 Weight (Calculated Grams) 16285.3 [place] Body Weight 115 Body Mass Index (BMI) 34.2 Weight Status Obese GI Symptoms GI Symptoms None Last BM 08/04 Difficult in: None Skin Integrity/Comment: reddened to left/right inner thigh, right lateral index finger, right/left arm; skin tear to left abdominal fold; pressure area to coccy/sacral Estimated Nutritional Goals BEE in Kcals: Adj wt of IBW Calories/Kcals/Kg 30-35 adj wt 61kg Kcals Calculated 2669-3365 Protein: Adj wt of IBW Protein g/k.2-1.4 Protein Calculated 73-85 Fluid: ml 1830-2135ml (1ml/kcal) Nutritional Problem 1. Problem Problem altered nutrition related lab values Etiology hx of ESRD, endocrine dysfunction Signs/Symptoms: BUN 77, Cr 4.2, Glucose 216, POC 224-233, A1c 7.7 Malnutrition Alert Protein-Calorie Malnutrition N/A Is there a minimum of two criteria No selected? Query Text:Check all the applicable criteria. A minimum of two criteria are recommended for diagnosis of either severe or non-severe malnutrition. Intervention/Recommendation Comments 1. Resume TF Novosource Renal 30ml/hr continuous as ordered. increase to goal rate of 40ml /hr continuous as tolerated. This will provide 1920kcal, 87g protein and 688ml free water, meeting 100% of nutritional needs 2. Monitor TF rate, tolerance, wt weekly, skin integrity and labs 3. F/U as high risk in 2-3 days, 08/07-08/08 Expected Outcomes/Goals Expected Outcomes/Goals 1. Pt to meet at least 75% of nutritional needs via nutrition support with tolerance 2. Wt stability, skin to remain intact, labs to approach WNL.
--- NOTE | 2017-08-07 13:12 | GI Progress Note ---
Subjective - Review of Systems Subjective: NO GI BLEEDING Objective - Results Result Diagrams: 08/07/17 05:45 08/07/17 05:45 Recent Labs: Laboratory Last Values WBC 13.8 Th/cmm (4.8-10.8) H 08/07/17 05:45 RBC 2.94 Mil/cmm (3.80-5.20) L 08/07/17 05:45 Hgb 9.8 gm/dL (12-16) L 08/07/17 05:45 Hct 27.9 % (41.0-60) L 08/07/17 05:45 MCV 95.0 fl (81-100) 08/07/17 05:45 MCH 33.4 pg (27.0-31.0) H 08/07/17 05:45 MCHC Differential 35.2 pg (28.0-36.0) 08/07/17 05:45 RDW 17.8 % (11.5-20.0) 08/07/17 05:45 Plt Count 195 Th/cmm (150-400) 08/07/17 05:45 MPV 11.4 fl 08/07/17 05:45 Neutrophils % 83.3 % (40.0-80.0) H 08/06/17 07:15 Band Neutrophils % 8 % (0-10) 08/07/17 05:45 Lymphocytes % 5.0 % (20.0-50.0) L 08/06/17 07:15 Monocytes % 8.7 % (2.0-10.0) 08/06/17 07:15 Eosinophils % 3.0 % (0.0-5.0) 08/06/17 07:15 Basophils % 0.0 % (0.0-2.0) 08/06/17 07:15 Neutrophils (Manual) 74 % (40-80) 08/07/17 05:45 Lymphocytes 5 % (20-50) L 08/07/17 05:45 Monocytes 12 % (2-10) H 08/07/17 05:45 Eosinophils 5 % (0-5) 08/05/17 06:15 Basophils 1 % (0-3) 08/07/17 05:45 Hypochromia 1+ 08/02/17 15:37 Platelet Estimate ADEQUATE (NORMAL) 08/07/17 05:45 Platelet Morphology NORMAL (NORMAL) 08/02/17 15:37 Anisocytosis 1+ 08/07/17 05:45 Crenated Cell 2+ 08/02/17 15:37 RBC Morph Micro Appear ABNORMAL (NORMAL) 08/02/17 15:37 PT 12.9 SECONDS (9.5-11.5) H 08/02/17 13:58 INR 1.23 (0.5-1.4) 08/02/17 13:58 PTT (Actin FS) 33.6 SECONDS (26.0-38.0) 08/02/17 13:58 Specimen Source Arterial 08/03/17 08:58 Sample Site Right Radial 08/03/17 08:58 pH 7.42 (7.35-7.45) 08/03/17 08:58 pCO2 37.0 mmHg (35.0-45.0) 08/03/17 08:58 pO2 204.0 mmHg (80.0-100.0) H 08/03/17 08:58 HCO3 24.8 mEq/L (20.0-26.0) 08/03/17 08:58 Base Excess -0.2 mEq/L (-3.0-3.0) 08/03/17 08:58 O2 Saturation 100.0 % (92.0-100.0) 08/03/17 08:58 Rhett Test Positive 08/03/17 08:58 Vent Rate 12 08/03/17 08:58 Inspired O2 60 08/03/17 08:58 Tidal Volume 450 08/03/17 08:58 PEEP 5 08/03/17 08:58 Pressure (ins/psv/peep) NA 08/03/17 08:58 Critical Value LZHANG 08/03/17 08:58 Sodium 132 mEq/L (136-145) L 08/07/17 05:45 Potassium 3.6 mEq/L (3.5-5.1) 08/07/17 05:45 Chloride 95 mEq/L (98-107) L 08/07/17 05:45 Carbon Dioxide 24.1 mEq/L (21.0-31.0) 08/07/17 05:45 Anion Gap 16.5 (7.0-16.0) H 08/07/17 05:45 BUN 58 mg/dL (7-25) H 08/07/17 05:45 Creatinine 3.4 mg/dL (0.6-1.2) H 08/07/17 05:45 Est GFR ( Amer) TNP 08/07/17 05:45 Est GFR (Non-Af Amer) TNP 08/07/17 05:45 BUN/Creatinine Ratio 17.1 08/07/17 05:45 Glucose 361 mg/dL (70-105) H 08/07/17 05:45 POC Glucose 339 MG/DL (70 - 105) H 08/07/17 05:47 Hemoglobin A1c % 7.7 % (4.0-6.0) H 08/02/17 15:37 Whole Bld Lactic Acid 1.97 mmol/L (0.60-1.99) 08/02/17 13:49 Calcium 8.7 mg/dL (8.6-10.3) 08/07/17 05:45 Magnesium 3.0 mg/dL (1.9-2.7) H 08/05/17 06:15 Iron 10 ug/dL (27-139) L 08/02/17 13:56 TIBC 135 ug/dL (250-450) L 08/02/17 13:56 Iron Saturation 7 % (15-55) L 08/02/17 13:56 Unsaturated IBC 125 ug/dL (118-369) 08/02/17 13:56 Ferritin 588 ng/mL (15-150) H 08/02/17 13:56 Total Bilirubin 0.4 mg/dL (0.3-1.0) 08/02/17 13:57 Direct Bilirubin 0.09 mg/dL (0.0-0.2) 08/02/17 13:57 AST 26 U/L (13-39) 08/02/17 13:57 ALT 15 U/L (7-52) 08/02/17 13:57 Alkaline Phosphatase 120 U/L (34-104) H 08/02/17 13:57 Troponin I 1.16 ng/mL (0.01-0.05) H* D 08/04/17 06:30 B-Natriuretic Peptide 372.0 pg/mL (5.0-100.0) H 08/05/17 06:15 Total Protein 5.9 gm/dL (6.0-8.3) L 08/02/17 13:57 Albumin 3.0 gm/dL (3.7-5.3) L 08/02/17 13:57 Globulin 2.9 gm/dL 08/02/17 13:57 Albumin/Globulin Ratio 1.0 (1.0-1.8) 08/02/17 13:57 Triglycerides 132 mg/dL (<150) 08/04/17 06:30 Cholesterol 55 mg/dL (<200) 08/04/17 06:30 LDL Cholesterol Direct 16 mg/dL (75-193) L 08/04/17 06:30 HDL Cholesterol 13 mg/dL (23-92) L 08/04/17 06:30 Amylase 12 U/L (29-103) L 08/02/17 13:43 Lipase 4 U/L (11-82) L 08/02/17 13:43 TSH 3.74 uIU/ml (0.34-5.60) 08/04/17 06:30 Stool Occult Blood POSITIVE (NEGATIVE) H 08/03/17 17:50 Random Vancomycin 19.3 ug/mL (5.0-40.0) 08/07/17 05:45 Blood Type A POSITIVE 08/02/17 20:54 Antibody Screen POSITIVE 08/02/17 20:54 Crossmatch See Detail 08/02/17 20:54 - Physical Exam Vitals and I&O: Vital Signs Temp 98.2 F 08/07/17 12:00 Pulse 87 08/07/17 12:15 Resp 16 08/07/17 12:00 BP 118/64 08/07/17 12:15 Pulse Ox 100 08/07/17 12:00 Intake & Output 08/06/17 08/07/17 08/07/17 18:59 06:59 18:59 Intake Total 3699.181 6883.596 319.112 Output Total 0 Balance 3768.198 0529.596 319.112 Weight (lbs) 86.636 kg 87.26 kg Intake: Intake, IV Amount 520.751 612.596 319.112 Colistimethate 80 mg In 100 Sodium Chloride 0.9% 100 ml @ 100 mls/hr IV Q36H [facility] Rx#:[id number] Diltiazem 125 mg In 39.417 Dextrose 5% 100 ml @ 0 MG /HR IV TITR [facility] Rx#: [id number] Fluconazole 200mg/100mL 100 200 mg In 100 ml @ 100 mls/hr IV Q24HR [facility] Rx#: [id number] Norepinephrine 4 mg In 420.751 Dextrose 5% 250 ml @ Per Protocol IV TITR PRN Rx#: [id number] Norepinephrine 8 mg In 223.179 199.112 Dextrose 5% 250 ml @ 0 MCG/MIN IV TITR PRN Rx#: [id number] Piperacillin Sodium/ 150 Tazobact 2.25 gm In Sodium Chloride 0.9% 50 ml @ 100 mls/hr IV Q6HR [facility] Rx#:[id number] Tube Feeding 600 600 Albumin 100 Other 80 380 Output: Urine 0 Other: # Bowel Movements 0 1 Stool Characteristics Soft Liquid Black Active Medications: Current Medications Acetaminophen (Tylenol 650mg/20.3ml Suspension) 650 mg GT DAILY [facility] Stop: 10/03/17 08:59 Last Admin: 08/07/17 09:38 Dose: 650 mg Albuterol/Ipratropium (Duoneb Neb) 3 ml HHN Q4HRT [facility] Stop: 10/02/17 10:59 Last Admin: 08/07/17 10:59 Dose: 3 ml Ascorbic Acid (Vitamin C) 500 mg PO DAILY [facility] Stop: 10/03/17 08:59 Last Admin: 08/07/17 09:38 Dose: 500 mg Aspirin (Aspirin Chewable) 81 mg GT DAILY [facility] Stop: 10/03/17 08:59 Last Admin: 08/07/17 09:38 Dose: 81 mg Atorvastatin Calcium (Lipitor) 40 mg GT HS [facility] Stop: 10/03/17 20:59 Last Admin: 08/06/17 21:50 Dose: 40 mg Bisacodyl (Dulcolax 10 Mg Supp) 10 mg RC Q72HR PRN PRN Reason: IF MOM INEFFECTIVE Stop: 10/02/17 14:13 Bisacodyl (Dulcolax 10 Mg Supp) 10 mg RC PRN PRN PRN Reason: IF MOM INEFFECTIVE Stop: 10/02/17 14:13 Chlorhexidine Gluconate (Peridex) 15 ml MM 0800,2000 [facility] Stop: 10/02/17 07:59 Last Admin: 08/07/17 07:10 Dose: 15 ml Cholecalciferol (Vitamin D3) 1,000 iu GT DAILY [facility] Stop: 10/03/17 08:59 Last Admin: 08/07/17 09:38 Dose: 1,000 iu Diltiazem HCl (Cardizem) 5 mg IVP Q4H PRN PRN Reason: INCREASE HEART RATE Stop: 10/01/17 21:59 Last Admin: 08/06/17 14:50 Dose: 5 mg Docusate Sodium (Colace) 100 mg PO DAILY [facility] Stop: 10/03/17 08:59 Last Admin: 08/07/17 09:39 Dose: 100 mg Fluconazole (Diflucan) 200 mg in 100 mls @ 100 mls/hr IV Q24HR [facility] Stop: 10/02/17 14:59 Last Infusion: 08/06/17 18:33 Dose: Infused Dopamine HCl/Dextrose (Dopamine) 400 mg in 250 mls @ 0 mls/hr IV TITR PRN; Protocol; Per Protocol PRN Reason: BP MAINTENANCE (PER PROTOCOL) Stop: 10/02/17 07:47 Colistimethate Sodium 80 mg/ (Sodium Chloride) 100 mls @ 100 mls/hr IV Q36H [facility] Stop: 10/02/17 20:59 Last Infusion: 08/06/17 23:55 Dose: Infused Norepinephrine Bitartrate 8 mg (/ Dextrose) 258 mls @ 0 mls/hr IV TITR PRN; Protocol; 0 MCG/MIN PRN Reason: BP MAINTENANCE (PER PROTOCOL) Stop: 10/05/17 13:59 Last Admin: 08/07/17 09:48 Dose: 16 mcg/min, 30.96 mls/hr Diltiazem HCl 125 mg/ Dextrose 125 mls @ 0 mls/hr IV TITR [facility]; 0 MG/HR PRN Reason: Protocol Stop: 10/05/17 14:59 Last Titration: 08/06/17 23:54 Dose: 5 mg/hr, 5 mls/hr Piperacillin Sod/Tazobactam (Sod 2.25 gm/ Sodium Chloride) 50 mls @ 100 mls/hr IV Q6HR [facility] Stop: 10/05/17 17:59 Last Admin: 08/07/17 11:55 Dose: 100 mls/hr Insulin Aspart (Novolog Insulin Sliding Scale) 0 units SUBQ Q6HR [facility] PRN Reason: Protocol Stop: 10/02/17 00:00 Last Admin: 08/07/17 11:55 Dose: 8 units Lorazepam (Ativan) 1 mg IVP Q2HR PRN; Protocol PRN Reason: Restlessness Stop: 10/01/17 21:18 Last Admin: 08/07/17 10:20 Dose: 1 mg Magnesium Hydroxide (Milk Of Magnesia) 30 ml GT Q72H PRN PRN Reason: NO BM FOR THREE DAYS Stop: 10/02/17 14:13 Mirtazapine (Remeron) 15 mg GT HS [facility] PRN Reason: Protocol Stop: 10/02/17 20:59 Last Admin: 08/06/17 21:50 Dose: 15 mg Miscellaneous (Vancomycin Iv Per Pharmacy) 1 [facility] PRN PRN PRN Reason: PROTOCOL Stop: 10/01/17 20:42 Miscellaneous (Clinical Monitoring) 1 [facility] PRN PRN PRN Reason: RENAL Stop: 10/05/17 11:28 Miscellaneous (Zosyn Iv Per Pharmacy) 1 [facility] PRN PRN PRN Reason: PROTOCOL Stop: 10/05/17 15:59 Multivitamins/Vitamin C (Theragran) 1 tab PO DAILY [facility] Stop: 10/03/17 08:59 Last Admin: 08/07/17 09:38 Dose: 1 tab Mupirocin (Bactroban Oint) 1 appl NS BID [facility] Stop: 08/09/17 17:01 Last Admin: 08/07/17 09:39 Dose: 1 appl Ondansetron HCl (Zofran Odt) 4 mg PO Q6HR PRN PRN Reason: Nausea / Vomiting Stop: 10/02/17 14:13 Pantoprazole Sodium (Protonix) 40 mg IVP DAILY [facility] Stop: 10/02/17 08:59 Last Admin: 08/07/17 09:38 Dose: 40 mg Simethicone (Mylicon) 80 mg GT Q6H PRN PRN Reason: GAS PAIN Stop: 10/02/17 14:13 Sodium Phosphate (Fleet Enema) 118 ml RC PRN PRN PRN Reason: IF MOM/DULCOLAX INEFFECTIVE Stop: 10/02/17 14:13 Temazepam (Restoril) 15 mg GT HS PRN; Protocol PRN Reason: Insomnia Stop: 10/02/17 14:13 Last Admin: 08/06/17 00:26 Dose: 15 mg Zinc Sulfate (Zinc Sulfate) 220 mg GT DAILY [facility] Stop: 10/03/17 08:59 Last Admin: 08/07/17 09:38 Dose: 220 mg General: Alert, No acute distress (scattered rhonchi) HEENT: Atraumatic, PERRLA, EOMI, Mucous membr. moist/pink Neck: Supple, Other (TRACH) Cardiovascular: Regular rate Lungs: Other (few rhonchi) Abdomen: Bowel sounds, Soft, Other (INTACT GT) Extremities: Edema (upper wxtrmities), Other (upper ext) Neurological: Sensation intact Skin: no Rash Psych/Mental Status: Mood NL - Procedures Procedures: Procedures Procedure Code Date BLOOD TRANSFUSION SERVICE 10437 08/02/17 EXCISION OF STOMACH, ENDO, DIAGN [id number] 07/10/17 INSPECTION OF LOWER INTESTINAL TRACT, ENDO [id number] 07/10/17 PERFORMANCE OF URINARY FILTRATION, <6 HRS/DAY [id number] 07/10/17 RESPIRATORY VENTILATION, GREATER THAN 96 CONSECUTIVE HOURS [id number] 08/02/17 TRANSFUSE NONAUT RED BLOOD CELLS IN PERIPH VEIN, PERC 52866O0 08/02/17 Assessment/Plan - Assessment Assessment: 76 YO FEMALE WITH ANEMIA STOOL OB + NO OVERT GI BLEEDING BUT COULD BE SMALL BOWEL SOURCE RECENT EGD SHOWED GASTRITIS RECENT COLO SHOWED HEMORRHOIDS 1.FOLLOW H/H 2.IF GI BLEEDING OCCURS THEN GET BLEEDING SCAN VS ANGIOGRAPHY 3.GET SBFT TO EVAL SB
[2017-08-07] MEDS ORDERED: Sodium Bicarbonate 8.4% 50mEq PFS IVP ONE (13:43)
[2017-08-07] MEDS ORDERED: Diatrizoate Meglumine/Diatri 30 mL Sol PO ONE (13:44)
[2017-08-07] MEDS ORDERED: Probiotic Screen MC PRN (14:15)
[2017-08-07] MEDS: Fluconazole 200mg/100mL 200 MG/100 ML BAG IV SCH (14:43)
--- NOTE | 2017-08-07 17:04 | Infectious Disease Prog Note ---
Infectious Disease Subjective - Review of Systems Service Date: 08/07/17 Subjective: no fever. Infectious Disease Objective - Results Result Diagrams: 08/07/17 05:45 08/07/17 05:45 Recent Labs: Laboratory Last Values WBC 13.8 Th/cmm (4.8-10.8) H 08/07/17 05:45 RBC 2.94 Mil/cmm (3.80-5.20) L 08/07/17 05:45 Hgb 9.8 gm/dL (12-16) L 08/07/17 05:45 Hct 27.9 % (41.0-60) L 08/07/17 05:45 MCV 95.0 fl (81-100) 08/07/17 05:45 MCH 33.4 pg (27.0-31.0) H 08/07/17 05:45 MCHC Differential 35.2 pg (28.0-36.0) 08/07/17 05:45 RDW 17.8 % (11.5-20.0) 08/07/17 05:45 Plt Count 195 Th/cmm (150-400) 08/07/17 05:45 MPV 11.4 fl 08/07/17 05:45 Neutrophils % 83.3 % (40.0-80.0) H 08/06/17 07:15 Band Neutrophils % 8 % (0-10) 08/07/17 05:45 Lymphocytes % 5.0 % (20.0-50.0) L 08/06/17 07:15 Monocytes % 8.7 % (2.0-10.0) 08/06/17 07:15 Eosinophils % 3.0 % (0.0-5.0) 08/06/17 07:15 Basophils % 0.0 % (0.0-2.0) 08/06/17 07:15 Neutrophils (Manual) 74 % (40-80) 08/07/17 05:45 Lymphocytes 5 % (20-50) L 08/07/17 05:45 Monocytes 12 % (2-10) H 08/07/17 05:45 Eosinophils 5 % (0-5) 08/05/17 06:15 Basophils 1 % (0-3) 08/07/17 05:45 Hypochromia 1+ 08/02/17 15:37 Platelet Estimate ADEQUATE (NORMAL) 08/07/17 05:45 Platelet Morphology NORMAL (NORMAL) 08/02/17 15:37 Anisocytosis 1+ 08/07/17 05:45 Crenated Cell 2+ 08/02/17 15:37 RBC Morph Micro Appear ABNORMAL (NORMAL) 08/02/17 15:37 PT 12.9 SECONDS (9.5-11.5) H 08/02/17 13:58 INR 1.23 (0.5-1.4) 08/02/17 13:58 PTT (Actin FS) 33.6 SECONDS (26.0-38.0) 08/02/17 13:58 Specimen Source Arterial 08/03/17 08:58 Sample Site Right Radial 08/03/17 08:58 pH 7.42 (7.35-7.45) 08/03/17 08:58 pCO2 37.0 mmHg (35.0-45.0) 08/03/17 08:58 pO2 204.0 mmHg (80.0-100.0) H 08/03/17 08:58 HCO3 24.8 mEq/L (20.0-26.0) 08/03/17 08:58 Base Excess -0.2 mEq/L (-3.0-3.0) 08/03/17 08:58 O2 Saturation 100.0 % (92.0-100.0) 08/03/17 08:58 Rhett Test Positive 08/03/17 08:58 Vent Rate 12 08/03/17 08:58 Inspired O2 60 08/03/17 08:58 Tidal Volume 450 08/03/17 08:58 PEEP 5 08/03/17 08:58 Pressure (ins/psv/peep) NA 08/03/17 08:58 Critical Value LZHANG 08/03/17 08:58 Sodium 132 mEq/L (136-145) L 08/07/17 05:45 Potassium 3.6 mEq/L (3.5-5.1) 08/07/17 05:45 Chloride 95 mEq/L (98-107) L 08/07/17 05:45 Carbon Dioxide 24.1 mEq/L (21.0-31.0) 08/07/17 05:45 Anion Gap 16.5 (7.0-16.0) H 08/07/17 05:45 BUN 58 mg/dL (7-25) H 08/07/17 05:45 Creatinine 3.4 mg/dL (0.6-1.2) H 08/07/17 05:45 Est GFR ( Amer) TNP 08/07/17 05:45 Est GFR (Non-Af Amer) TNP 08/07/17 05:45 BUN/Creatinine Ratio 17.1 08/07/17 05:45 Glucose 361 mg/dL (70-105) H 08/07/17 05:45 POC Glucose 339 MG/DL (70 - 105) H 08/07/17 05:47 Hemoglobin A1c % 7.7 % (4.0-6.0) H 08/02/17 15:37 Whole Bld Lactic Acid 1.97 mmol/L (0.60-1.99) 08/02/17 13:49 Calcium 8.7 mg/dL (8.6-10.3) 08/07/17 05:45 Magnesium 3.0 mg/dL (1.9-2.7) H 08/05/17 06:15 Iron 10 ug/dL (27-139) L 08/02/17 13:56 TIBC 135 ug/dL (250-450) L 08/02/17 13:56 Iron Saturation 7 % (15-55) L 08/02/17 13:56 Unsaturated IBC 125 ug/dL (118-369) 08/02/17 13:56 Ferritin 588 ng/mL (15-150) H 08/02/17 13:56 Total Bilirubin 0.4 mg/dL (0.3-1.0) 08/02/17 13:57 Direct Bilirubin 0.09 mg/dL (0.0-0.2) 08/02/17 13:57 AST 26 U/L (13-39) 08/02/17 13:57 ALT 15 U/L (7-52) 08/02/17 13:57 Alkaline Phosphatase 120 U/L (34-104) H 08/02/17 13:57 Troponin I 1.16 ng/mL (0.01-0.05) H* D 08/04/17 06:30 B-Natriuretic Peptide 372.0 pg/mL (5.0-100.0) H 08/05/17 06:15 Total Protein 5.9 gm/dL (6.0-8.3) L 08/02/17 13:57 Albumin 3.0 gm/dL (3.7-5.3) L 08/02/17 13:57 Globulin 2.9 gm/dL 08/02/17 13:57 Albumin/Globulin Ratio 1.0 (1.0-1.8) 08/02/17 13:57 Triglycerides 132 mg/dL (<150) 08/04/17 06:30 Cholesterol 55 mg/dL (<200) 08/04/17 06:30 LDL Cholesterol Direct 16 mg/dL (75-193) L 08/04/17 06:30 HDL Cholesterol 13 mg/dL (23-92) L 08/04/17 06:30 Amylase 12 U/L (29-103) L 08/02/17 13:43 Lipase 4 U/L (11-82) L 08/02/17 13:43 TSH 3.74 uIU/ml (0.34-5.60) 08/04/17 06:30 Stool Occult Blood POSITIVE (NEGATIVE) H 08/03/17 17:50 Random Vancomycin 19.3 ug/mL (5.0-40.0) 08/07/17 05:45 Blood Type A POSITIVE 08/02/17 20:54 Antibody Screen POSITIVE 08/02/17 20:54 Crossmatch See Detail 08/02/17 20:54 - Physical Exam Vitals and I&O: Vital Signs Temp 98.6 F 08/07/17 16:00 Pulse 105 08/07/17 16:15 Resp 16 08/07/17 16:00 BP 101/29 08/07/17 16:15 Pulse Ox 100 08/07/17 16:00 Intake & Output 08/06/17 08/07/17 08/07/17 18:59 06:59 18:59 Intake Total 6833.563 6007.596 469.112 Output Total 0 Balance 6882.800 4042.596 469.112 Weight (lbs) 86.636 kg 87.26 kg Intake: Intake, IV Amount 520.751 612.596 469.112 Colistimethate 80 mg In 100 Sodium Chloride 0.9% 100 ml @ 100 mls/hr IV Q36H [facility] Rx#:[id number] Diltiazem 125 mg In 39.417 Dextrose 5% 100 ml @ 0 MG /HR IV TITR [facility] Rx#: [id number] Fluconazole 200mg/100mL 100 100 200 mg In 100 ml @ 100 mls/hr IV Q24HR [facility] Rx#: [id number] Norepinephrine 4 mg In 420.751 Dextrose 5% 250 ml @ Per Protocol IV TITR PRN Rx#: [id number] Norepinephrine 8 mg In 223.179 199.112 Dextrose 5% 250 ml @ 0 MCG/MIN IV TITR PRN Rx#: [id number] Piperacillin Sodium/ 150 50 Tazobact 2.25 gm In Sodium Chloride 0.9% 50 ml @ 100 mls/hr IV Q6HR [facility] Rx#:[id number] Tube Feeding 600 600 Albumin 100 Other 80 380 Output: Urine 0 Other: # Bowel Movements 0 1 Stool Characteristics Soft Soft Liquid Liquid Black Brown Black Active Medications: Current Medications Acetaminophen (Tylenol 650mg/20.3ml Suspension) 650 mg GT DAILY [facility] Stop: 10/03/17 08:59 Last Admin: 08/07/17 09:38 Dose: 650 mg Albuterol/Ipratropium (Duoneb Neb) 3 ml HHN Q4HRT [facility] Stop: 10/02/17 10:59 Last Admin: 08/07/17 14:31 Dose: 3 ml Ascorbic Acid (Vitamin C) 500 mg PO DAILY [facility] Stop: 10/03/17 08:59 Last Admin: 08/07/17 09:38 Dose: 500 mg Aspirin (Aspirin Chewable) 81 mg GT DAILY [facility] Stop: 10/03/17 08:59 Last Admin: 08/07/17 09:38 Dose: 81 mg Atorvastatin Calcium (Lipitor) 40 mg GT HS [facility] Stop: 10/03/17 20:59 Last Admin: 08/06/17 21:50 Dose: 40 mg Bisacodyl (Dulcolax 10 Mg Supp) 10 mg RC Q72HR PRN PRN Reason: IF MOM INEFFECTIVE Stop: 10/02/17 14:13 Bisacodyl (Dulcolax 10 Mg Supp) 10 mg RC PRN PRN PRN Reason: IF MOM INEFFECTIVE Stop: 10/02/17 14:13 Chlorhexidine Gluconate (Peridex) 15 ml MM 0800,2000 [facility] Stop: 10/02/17 07:59 Last Admin: 08/07/17 07:10 Dose: 15 ml Cholecalciferol (Vitamin D3) 1,000 iu GT DAILY [facility] Stop: 10/03/17 08:59 Last Admin: 08/07/17 09:38 Dose: 1,000 iu Diltiazem HCl (Cardizem) 5 mg IVP Q4H PRN PRN Reason: INCREASE HEART RATE Stop: 10/01/17 21:59 Last Admin: 08/06/17 14:50 Dose: 5 mg Docusate Sodium (Colace) 100 mg PO DAILY [facility] Stop: 10/03/17 08:59 Last Admin: 08/07/17 09:39 Dose: 100 mg Fluconazole (Diflucan) 200 mg in 100 mls @ 100 mls/hr IV Q24HR [facility] Stop: 10/02/17 14:59 Last Infusion: 08/07/17 15:45 Dose: Infused Dopamine HCl/Dextrose (Dopamine) 400 mg in 250 mls @ 0 mls/hr IV TITR PRN; Protocol; Per Protocol PRN Reason: BP MAINTENANCE (PER PROTOCOL) Stop: 10/02/17 07:47 Colistimethate Sodium 80 mg/ (Sodium Chloride) 100 mls @ 100 mls/hr IV Q36H [facility] Stop: 10/02/17 20:59 Last Infusion: 08/06/17 23:55 Dose: Infused Norepinephrine Bitartrate 8 mg (/ Dextrose) 258 mls @ 0 mls/hr IV TITR PRN; Protocol; 0 MCG/MIN PRN Reason: BP MAINTENANCE (PER PROTOCOL) Stop: 10/05/17 13:59 Last Admin: 08/07/17 09:48 Dose: 16 mcg/min, 30.96 mls/hr Diltiazem HCl 125 mg/ Dextrose 125 mls @ 0 mls/hr IV TITR [facility]; 0 MG/HR PRN Reason: Protocol Stop: 10/05/17 14:59 Last Titration: 08/06/17 23:54 Dose: 5 mg/hr, 5 mls/hr Piperacillin Sod/Tazobactam (Sod 2.25 gm/ Sodium Chloride) 50 mls @ 100 mls/hr IV Q6HR [facility] Stop: 10/05/17 17:59 Last Infusion: 08/07/17 12:25 Dose: Infused Insulin Aspart (Novolog Insulin Sliding Scale) 0 units SUBQ Q6HR [facility] PRN Reason: Protocol Stop: 10/02/17 00:00 Last Admin: 08/07/17 11:55 Dose: 8 units Lactobacillus Rhamnosus (Culturelle 15b) 1 each PO DAILY [facility] Stop: 10/07/17 08:59 Lorazepam (Ativan) 1 mg IVP Q2HR PRN; Protocol PRN Reason: Restlessness Stop: 10/01/17 21:18 Last Admin: 08/07/17 10:20 Dose: 1 mg Magnesium Hydroxide (Milk Of Magnesia) 30 ml GT Q72H PRN PRN Reason: NO BM FOR THREE DAYS Stop: 10/02/17 14:13 Mirtazapine (Remeron) 15 mg GT HS FOUZIA PRN Reason: Protocol Stop: 10/02/17 20:59 Last Admin: 08/06/17 21:50 Dose: 15 mg Miscellaneous (Vancomycin Iv Per Pharmacy) 1 ea PRN PRN PRN Reason: PROTOCOL Stop: 10/01/17 20:42 Miscellaneous (Clinical Monitoring) 1 ea PRN PRN PRN Reason: RENAL Stop: 10/05/17 11:28 Miscellaneous (Zosyn Iv Per Pharmacy) 1 ea PRN PRN PRN Reason: PROTOCOL Stop: 10/05/17 15:59 Miscellaneous (Probiotic Screen) 1 ea PRN PRN PRN Reason: PROTOCOL Stop: 10/06/17 14:14 Multivitamins/Vitamin C (Theragran) 1 tab PO DAILY FOUZIA Stop: 10/03/17 08:59 Last Admin: 08/07/17 09:38 Dose: 1 tab Mupirocin (Bactroban Oint) 1 appl NS BID FOUZIA Stop: 08/09/17 17:01 Last Admin: 08/07/17 09:39 Dose: 1 appl Ondansetron HCl (Zofran Odt) 4 mg PO Q6HR PRN PRN Reason: Nausea / Vomiting Stop: 10/02/17 14:13 Pantoprazole Sodium (Protonix) 40 mg IVP DAILY FOUZIA Stop: 10/02/17 08:59 Last Admin: 08/07/17 09:38 Dose: 40 mg Simethicone (Mylicon) 80 mg GT Q6H PRN PRN Reason: GAS PAIN Stop: 10/02/17 14:13 Sodium Phosphate (Fleet Enema) 118 ml RC PRN PRN PRN Reason: IF MOM/DULCOLAX INEFFECTIVE Stop: 10/02/17 14:13 Temazepam (Restoril) 15 mg GT HS PRN; Protocol PRN Reason: Insomnia Stop: 10/02/17 14:13 Last Admin: 08/06/17 00:26 Dose: 15 mg Zinc Sulfate (Zinc Sulfate) 220 mg GT DAILY FOUZIA Stop: 10/03/17 08:59 Last Admin: 08/07/17 09:38 Dose: 220 mg General: no acute distress, well developed, well nourished HEENT: atraumatic, normocephalic, PERRLA, EOMI Neck: supple, tracheostomy, no thyromegaly, no lymphadenopathy Cardiovascular: S1S2, regular Lungs: clear to auscultation bilaterally, clear to percussion Abdomen: soft, no tender, no distended Extremities: no cyanosis, no clubbing, no edema Neurological: awake, alert - Procedures Procedures: Procedures Procedure Code Date BLOOD TRANSFUSION SERVICE 00965 08/02/17 EXCISION OF STOMACH, ENDO, DIAGN [id number] 07/10/17 INSPECTION OF LOWER INTESTINAL TRACT, ENDO [id number] 07/10/17 PERFORMANCE OF URINARY FILTRATION, <6 HRS/DAY [id number] 07/10/17 RESPIRATORY VENTILATION, GREATER THAN 96 CONSECUTIVE HOURS [id number] 08/02/17 TRANSFUSE NONAUT RED BLOOD CELLS IN PERIPH VEIN, PERC [id number] 08/02/17 Infectious Disease Assmt/Plan - Assessment Assessment: 1. Septic shock. improved. 2. Gram-negative negative bacteremia. 3. Pneumonia. 4. 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 5. Diabetes mellitus type 2. 6. Obesity. - Plan Plan: Change antibiotics to zosyn.. Nutritional Asmnt/Malnutr-PDOC - Dietary Evaluation Malnutrition Findings (Please click <Entered> for more info): Nutritional Asmnt/Malnutrition Start: 08/05/17 15: 53 Text: Status: Complete Freq: Document 08/05/17 15:53 NAVIN (Rec: 08/05/17 16:19 MAX [id number]) Nutritional Asmnt/Malnutrition Patient General Information Nutritional Screening High Risk Diagnosis sepsis, respiratory failure, ESRD Pertinent Medical Hx/Surgical Hx ESRD on HD, respiratory failure with tracheostomy, dysphagia, a fib, anemia, HTN, GERD Subjective Information Pt on vent, not able to interview. Pt was on TF Novosource Renal 30ml/hr continuous, NPO today for surgery. Pt has dialysis ordred per nurse note. Current Diet Order/ Nutrition Support NPO on 08/05 Pertinent Medications vit C, vit D3, colace, novolog , remeron, theragran, protonix , zinc Pertinent Labs 08/05 Na 134, K 3.6, Cl 102, BUN 77, Cr 4.2, Glucose 216, POC 224-233 08/02 A1c 7.7 Nutritional Hx/Data Height 1.6 m Height (Calculated Centimeters) 160.0 Current Weight (lbs) 87.543 kg Weight (Calculated Kilograms) 87.5 Weight (Calculated Grams) 14947.3 [place] Body Weight 115 Body Mass Index (BMI) 34.2 Weight Status Obese GI Symptoms GI Symptoms None Last BM 08/04 Difficult in: None Skin Integrity/Comment: reddened to left/right inner thigh, right lateral index finger, right/left arm; skin tear to left abdominal fold; pressure area to coccy/sacral Estimated Nutritional Goals BEE in Kcals: Adj wt of IBW Calories/Kcals/Kg 30-35 adj wt 61kg Kcals Calculated 4814-0696 Protein: Adj wt of IBW Protein g/k.2-1.4 Protein Calculated 73-85 Fluid: ml 1830-2135ml (1ml/kcal) Nutritional Problem 1. Problem Problem altered nutrition related lab values Etiology hx of ESRD, endocrine dysfunction Signs/Symptoms: BUN 77, Cr 4.2, Glucose 216, POC 224-233, A1c 7.7 Malnutrition Alert Protein-Calorie Malnutrition N/A Is there a minimum of two criteria No selected? Query Text:Check all the applicable criteria. A minimum of two criteria are recommended for diagnosis of either severe or non-severe malnutrition. Intervention/Recommendation Comments 1. Resume TF Novosource Renal 30ml/hr continuous as ordered. increase to goal rate of 40ml /hr continuous as tolerated. This will provide 1920kcal, 87g protein and 688ml free water, meeting 100% of nutritional needs 2. Monitor TF rate, tolerance, wt weekly, skin integrity and labs 3. F/U as high risk in 2-3 days, 3-08/08 Expected Outcomes/Goals Expected Outcomes/Goals 1. Pt to meet at least 75% of nutritional needs via nutrition support with tolerance 2. Wt stability, skin to remain intact, labs to approach WNL.
--- NOTE | 2017-08-07 18:57 | Internal Medicine Prog Note ---
Internal Medicine Subjective - Subjective Patient is:: awake, non-verbal Per staff patient has:: tolerating meds Internal Medicine Objective - Results Result Diagrams: 08/07/17 05:45 08/07/17 05:45 Recent Labs: Laboratory Last Values WBC 13.8 Th/cmm (4.8-10.8) H 08/07/17 05:45 RBC 2.94 Mil/cmm (3.80-5.20) L 08/07/17 05:45 Hgb 9.8 gm/dL (12-16) L 08/07/17 05:45 Hct 27.9 % (41.0-60) L 08/07/17 05:45 MCV 95.0 fl (81-100) 08/07/17 05:45 MCH 33.4 pg (27.0-31.0) H 08/07/17 05:45 MCHC Differential 35.2 pg (28.0-36.0) 08/07/17 05:45 RDW 17.8 % (11.5-20.0) 08/07/17 05:45 Plt Count 195 Th/cmm (150-400) 08/07/17 05:45 MPV 11.4 fl 08/07/17 05:45 Neutrophils % 83.3 % (40.0-80.0) H 08/06/17 07:15 Band Neutrophils % 8 % (0-10) 08/07/17 05:45 Lymphocytes % 5.0 % (20.0-50.0) L 08/06/17 07:15 Monocytes % 8.7 % (2.0-10.0) 08/06/17 07:15 Eosinophils % 3.0 % (0.0-5.0) 08/06/17 07:15 Basophils % 0.0 % (0.0-2.0) 08/06/17 07:15 Neutrophils (Manual) 74 % (40-80) 08/07/17 05:45 Lymphocytes 5 % (20-50) L 08/07/17 05:45 Monocytes 12 % (2-10) H 08/07/17 05:45 Eosinophils 5 % (0-5) 08/05/17 06:15 Basophils 1 % (0-3) 08/07/17 05:45 Hypochromia 1+ 08/02/17 15:37 Platelet Estimate ADEQUATE (NORMAL) 08/07/17 05:45 Platelet Morphology NORMAL (NORMAL) 08/02/17 15:37 Anisocytosis 1+ 08/07/17 05:45 Crenated Cell 2+ 08/02/17 15:37 RBC Morph Micro Appear ABNORMAL (NORMAL) 08/02/17 15:37 PT 12.9 SECONDS (9.5-11.5) H 08/02/17 13:58 INR 1.23 (0.5-1.4) 08/02/17 13:58 PTT (Actin FS) 33.6 SECONDS (26.0-38.0) 08/02/17 13:58 Specimen Source Arterial 08/03/17 08:58 Sample Site Right Radial 08/03/17 08:58 pH 7.42 (7.35-7.45) 08/03/17 08:58 pCO2 37.0 mmHg (35.0-45.0) 08/03/17 08:58 pO2 204.0 mmHg (80.0-100.0) H 08/03/17 08:58 HCO3 24.8 mEq/L (20.0-26.0) 08/03/17 08:58 Base Excess -0.2 mEq/L (-3.0-3.0) 08/03/17 08:58 O2 Saturation 100.0 % (92.0-100.0) 08/03/17 08:58 Rhett Test Positive 08/03/17 08:58 Vent Rate 12 08/03/17 08:58 Inspired O2 60 08/03/17 08:58 Tidal Volume 450 08/03/17 08:58 PEEP 5 08/03/17 08:58 Pressure (ins/psv/peep) NA 08/03/17 08:58 Critical Value LZHANG 08/03/17 08:58 Sodium 132 mEq/L (136-145) L 08/07/17 05:45 Potassium 3.6 mEq/L (3.5-5.1) 08/07/17 05:45 Chloride 95 mEq/L (98-107) L 08/07/17 05:45 Carbon Dioxide 24.1 mEq/L (21.0-31.0) 08/07/17 05:45 Anion Gap 16.5 (7.0-16.0) H 08/07/17 05:45 BUN 58 mg/dL (7-25) H 08/07/17 05:45 Creatinine 3.4 mg/dL (0.6-1.2) H 08/07/17 05:45 Est GFR ( Amer) TNP 08/07/17 05:45 Est GFR (Non-Af Amer) TNP 08/07/17 05:45 BUN/Creatinine Ratio 17.1 08/07/17 05:45 Glucose 361 mg/dL (70-105) H 08/07/17 05:45 POC Glucose 350 MG/DL (70 - 105) H 08/07/17 17:37 Hemoglobin A1c % 7.7 % (4.0-6.0) H 08/02/17 15:37 Whole Bld Lactic Acid 1.97 mmol/L (0.60-1.99) 08/02/17 13:49 Calcium 8.7 mg/dL (8.6-10.3) 08/07/17 05:45 Magnesium 3.0 mg/dL (1.9-2.7) H 08/05/17 06:15 Iron 10 ug/dL (27-139) L 08/02/17 13:56 TIBC 135 ug/dL (250-450) L 08/02/17 13:56 Iron Saturation 7 % (15-55) L 08/02/17 13:56 Unsaturated IBC 125 ug/dL (118-369) 08/02/17 13:56 Ferritin 588 ng/mL (15-150) H 08/02/17 13:56 Total Bilirubin 0.4 mg/dL (0.3-1.0) 08/02/17 13:57 Direct Bilirubin 0.09 mg/dL (0.0-0.2) 08/02/17 13:57 AST 26 U/L (13-39) 08/02/17 13:57 ALT 15 U/L (7-52) 08/02/17 13:57 Alkaline Phosphatase 120 U/L (34-104) H 08/02/17 13:57 Troponin I 1.16 ng/mL (0.01-0.05) H* D 08/04/17 06:30 B-Natriuretic Peptide 372.0 pg/mL (5.0-100.0) H 08/05/17 06:15 Total Protein 5.9 gm/dL (6.0-8.3) L 08/02/17 13:57 Albumin 3.0 gm/dL (3.7-5.3) L 08/02/17 13:57 Globulin 2.9 gm/dL 08/02/17 13:57 Albumin/Globulin Ratio 1.0 (1.0-1.8) 08/02/17 13:57 Triglycerides 132 mg/dL (<150) 08/04/17 06:30 Cholesterol 55 mg/dL (<200) 08/04/17 06:30 LDL Cholesterol Direct 16 mg/dL (75-193) L 08/04/17 06:30 HDL Cholesterol 13 mg/dL (23-92) L 08/04/17 06:30 Amylase 12 U/L (29-103) L 08/02/17 13:43 Lipase 4 U/L (11-82) L 08/02/17 13:43 TSH 3.74 uIU/ml (0.34-5.60) 08/04/17 06:30 Stool Occult Blood POSITIVE (NEGATIVE) H 08/03/17 17:50 Random Vancomycin 19.3 ug/mL (5.0-40.0) 08/07/17 05:45 Blood Type A POSITIVE 08/02/17 20:54 Antibody Screen POSITIVE 08/02/17 20:54 Crossmatch See Detail 08/02/17 20:54 - Physical Exam Vitals and I&O: Vital Signs Temp 98.6 F 08/07/17 16:00 Pulse 103 08/07/17 16:45 Resp 16 08/07/17 16:00 BP 101/29 08/07/17 16:15 Pulse Ox 100 08/07/17 16:45 Intake & Output 08/06/17 08/07/17 08/07/17 18:59 06:59 18:59 Intake Total 6958.775 9061.596 469.112 Output Total 0 Balance 3900.663 6842.596 469.112 Weight (lbs) 86.636 kg 87.26 kg Intake: Intake, IV Amount 520.751 612.596 469.112 Colistimethate 80 mg In 100 Sodium Chloride 0.9% 100 ml @ 100 mls/hr IV Q36H [facility] Rx#:[id number] Diltiazem 125 mg In 39.417 Dextrose 5% 100 ml @ 0 MG /HR IV TITR [facility] Rx#: [id number] Fluconazole 200mg/100mL 100 100 200 mg In 100 ml @ 100 mls/hr IV Q24HR [facility] Rx#: [id number] Norepinephrine 4 mg In 420.751 Dextrose 5% 250 ml @ Per Protocol IV TITR PRN Rx#: [id number] Norepinephrine 8 mg In 223.179 199.112 Dextrose 5% 250 ml @ 0 MCG/MIN IV TITR PRN Rx#: [id number] Piperacillin Sodium/ 150 50 Tazobact 2.25 gm In Sodium Chloride 0.9% 50 ml @ 100 mls/hr IV Q6HR [facility] Rx#:[id number] Tube Feeding 600 600 Albumin 100 Other 80 380 Output: Urine 0 Other: # Bowel Movements 0 1 Stool Characteristics Soft Soft Liquid Liquid Black Brown Black Active Medications: Current Medications Acetaminophen (Tylenol 650mg/20.3ml Suspension) 650 mg GT DAILY [facility] Stop: 10/03/17 08:59 Last Admin: 08/07/17 09:38 Dose: 650 mg Albuterol/Ipratropium (Duoneb Neb) 3 ml HHN Q4HRT [facility] Stop: 10/02/17 10:59 Last Admin: 08/07/17 14:31 Dose: 3 ml Ascorbic Acid (Vitamin C) 500 mg PO DAILY [facility] Stop: 10/03/17 08:59 Last Admin: 08/07/17 09:38 Dose: 500 mg Aspirin (Aspirin Chewable) 81 mg GT DAILY [facility] Stop: 10/03/17 08:59 Last Admin: 08/07/17 09:38 Dose: 81 mg Atorvastatin Calcium (Lipitor) 40 mg GT HS [facility] Stop: 10/03/17 20:59 Last Admin: 08/06/17 21:50 Dose: 40 mg Bisacodyl (Dulcolax 10 Mg Supp) 10 mg RC Q72HR PRN PRN Reason: IF MOM INEFFECTIVE Stop: 10/02/17 14:13 Bisacodyl (Dulcolax 10 Mg Supp) 10 mg RC PRN PRN PRN Reason: IF MOM INEFFECTIVE Stop: 10/02/17 14:13 Chlorhexidine Gluconate (Peridex) 15 ml MM 0800,2000 [facility] Stop: 10/02/17 07:59 Last Admin: 08/07/17 07:10 Dose: 15 ml Cholecalciferol (Vitamin D3) 1,000 iu GT DAILY [facility] Stop: 10/03/17 08:59 Last Admin: 08/07/17 09:38 Dose: 1,000 iu Diltiazem HCl (Cardizem) 5 mg IVP Q4H PRN PRN Reason: INCREASE HEART RATE Stop: 10/01/17 21:59 Last Admin: 08/06/17 14:50 Dose: 5 mg Docusate Sodium (Colace) 100 mg PO DAILY [facility] Stop: 10/03/17 08:59 Last Admin: 08/07/17 09:39 Dose: 100 mg Dopamine HCl/Dextrose (Dopamine) 400 mg in 250 mls @ 0 mls/hr IV TITR PRN; Protocol; Per Protocol PRN Reason: BP MAINTENANCE (PER PROTOCOL) Stop: 10/02/17 07:47 Norepinephrine Bitartrate 8 mg (/ Dextrose) 258 mls @ 0 mls/hr IV TITR PRN; Protocol; 0 MCG/MIN PRN Reason: BP MAINTENANCE (PER PROTOCOL) Stop: 10/05/17 13:59 Last Admin: 08/07/17 09:48 Dose: 16 mcg/min, 30.96 mls/hr Diltiazem HCl 125 mg/ Dextrose 125 mls @ 0 mls/hr IV TITR [facility]; 0 MG/HR PRN Reason: Protocol Stop: 10/05/17 14:59 Last Titration: 08/06/17 23:54 Dose: 5 mg/hr, 5 mls/hr Piperacillin Sod/Tazobactam (Sod 2.25 gm/ Sodium Chloride) 50 mls @ 100 mls/hr IV Q6HR [facility] Stop: 10/05/17 17:59 Last Admin: 08/07/17 17:35 Dose: 100 mls/hr Insulin Aspart (Novolog Insulin Sliding Scale) 0 units SUBQ Q6HR [facility] PRN Reason: Protocol Stop: 10/02/17 00:00 Last Admin: 08/07/17 17:42 Dose: 8 units Lactobacillus Rhamnosus (Culturelle 15b) 1 each PO DAILY [facility] Stop: 10/07/17 08:59 Lorazepam (Ativan) 1 mg IVP Q2HR PRN; Protocol PRN Reason: Restlessness Stop: 10/01/17 21:18 Last Admin: 08/07/17 10:20 Dose: 1 mg Magnesium Hydroxide (Milk Of Magnesia) 30 ml GT Q72H PRN PRN Reason: NO BM FOR THREE DAYS Stop: 10/02/17 14:13 Mirtazapine (Remeron) 15 mg GT HS [facility] PRN Reason: Protocol Stop: 10/02/17 20:59 Last Admin: 08/06/17 21:50 Dose: 15 mg Miscellaneous (Clinical Monitoring) 1 ea PRN PRN PRN Reason: RENAL Stop: 10/05/17 11:28 Miscellaneous (Zosyn Iv Per Pharmacy) 1 ea PRN PRN PRN Reason: PROTOCOL Stop: 10/05/17 15:59 Miscellaneous (Probiotic Screen) 1 [facility] PRN PRN PRN Reason: PROTOCOL Stop: 10/06/17 14:14 Multivitamins/Vitamin C (Theragran) 1 tab PO DAILY [facility] Stop: 10/03/17 08:59 Last Admin: 08/07/17 09:38 Dose: 1 tab Mupirocin (Bactroban Oint) 1 appl NS BID [facility] Stop: 08/09/17 17:01 Last Admin: 08/07/17 17:34 Dose: 1 appl Ondansetron HCl (Zofran Odt) 4 mg PO Q6HR PRN PRN Reason: Nausea / Vomiting Stop: 10/02/17 14:13 Pantoprazole Sodium (Protonix) 40 mg IVP DAILY [facility] Stop: 10/02/17 08:59 Last Admin: 08/07/17 09:38 Dose: 40 mg Simethicone (Mylicon) 80 mg GT Q6H PRN PRN Reason: GAS PAIN Stop: 10/02/17 14:13 Sodium Phosphate (Fleet Enema) 118 ml RC PRN PRN PRN Reason: IF MOM/DULCOLAX INEFFECTIVE Stop: 10/02/17 14:13 Temazepam (Restoril) 15 mg GT HS PRN; Protocol PRN Reason: Insomnia Stop: 10/02/17 14:13 Last Admin: 08/06/17 00:26 Dose: 15 mg Zinc Sulfate (Zinc Sulfate) 220 mg GT DAILY [facility] Stop: 10/03/17 08:59 Last Admin: 08/07/17 09:38 Dose: 220 mg General: weak, obtunded HEENT: NC/AT, PERRLA Neck: Supple Lungs: ronchi Abdomen: soft, non-tender, non-distended, +GT Neurological: unable to follow command - Procedures Procedures: Procedures Procedure Code Date BLOOD TRANSFUSION SERVICE 68040 08/02/17 EXCISION OF STOMACH, ENDO, DIAGN [id number] 07/10/17 INSPECTION OF LOWER INTESTINAL TRACT, ENDO [id number] 07/10/17 PERFORMANCE OF URINARY FILTRATION, <6 HRS/DAY [id number] 07/10/17 RESPIRATORY VENTILATION, GREATER THAN 96 CONSECUTIVE HOURS [id number] 08/02/17 TRANSFUSE NONAUT RED BLOOD CELLS IN PERIPH VEIN, PERC [id number] 08/02/17 Nutritional Asmnt/Malnutr-PDOC - Dietary Evaluation Malnutrition Findings (Please click <Entered> for more info): Nutritional Asmnt/Malnutrition Start: 08/05/17 15: 53 Text: Status: Complete Freq: Document 08/05/17 15:53 NAVIN (Rec: 08/05/17 16:19 HEN [id number]) Nutritional Asmnt/Malnutrition Patient General Information Nutritional Screening High Risk Diagnosis sepsis, respiratory failure, ESRD Pertinent Medical Hx/Surgical Hx ESRD on HD, respiratory failure with tracheostomy, dysphagia, a fib, anemia, HTN, GERD Subjective Information Pt on vent, not able to interview. Pt was on TF Novosource Renal 30ml/hr continuous, NPO today for surgery. Pt has dialysis ordred per nurse note. Current Diet Order/ Nutrition Support NPO on 08/05 Pertinent Medications vit C, vit D3, colace, novolog , remeron, theragran, protonix , zinc Pertinent Labs 08/05 Na 134, K 3.6, Cl 102, BUN 77, Cr 4.2, Glucose 216, POC 224-233 08/02 A1c 7.7 Nutritional Hx/Data Height 1.6 m Height (Calculated Centimeters) 160.0 Current Weight (lbs) 87.543 kg Weight (Calculated Kilograms) 87.5 Weight (Calculated Grams) 91698.3 [place] Body Weight 115 Body Mass Index (BMI) 34.2 Weight Status Obese GI Symptoms GI Symptoms None Last BM 08/04 Difficult in: None Skin Integrity/Comment: reddened to left/right inner thigh, right lateral index finger, right/left arm; skin tear to left abdominal fold; pressure area to coccy/sacral Estimated Nutritional Goals BEE in Kcals: Adj wt of IBW Calories/Kcals/Kg 30-35 adj wt 61kg Kcals Calculated 1782-3301 Protein: Adj wt of IBW Protein g/k.2-1.4 Protein Calculated 73-85 Fluid: ml 1830-2135ml (1ml/kcal) Nutritional Problem 1. Problem Problem altered nutrition related lab values Etiology hx of ESRD, endocrine dysfunction Signs/Symptoms: BUN 77, Cr 4.2, Glucose 216, POC 224-233, A1c 7.7 Malnutrition Alert Protein-Calorie Malnutrition N/A Is there a minimum of two criteria No selected? Query Text:Check all the applicable criteria. A minimum of two criteria are recommended for diagnosis of either severe or non-severe malnutrition. Intervention/Recommendation Comments 1. Resume TF Novosource Renal 30ml/hr continuous as ordered. increase to goal rate of 40ml /hr continuous as tolerated. This will provide 1920kcal, 87g protein and 688ml free water, meeting 100% of nutritional needs 2. Monitor TF rate, tolerance, wt weekly, skin integrity and labs 3. F/U as high risk in 2-3 days, 3/1-3/2 Expected Outcomes/Goals Expected Outcomes/Goals 1. Pt to meet at least 75% of nutritional needs via nutrition support with tolerance 2. Wt stability, skin to remain intact, labs to approach WNL.
--- NOTE | 2017-08-07 19:49 | General Progress Note ---
Subjective - Review of Systems Service Date: 08/07/17 Subjective: more awake, interacting, on vent Objective - Results Result Diagrams: 08/07/17 05:45 08/07/17 05:45 Recent Labs: Laboratory Last Values WBC 13.8 Th/cmm (4.8-10.8) H 08/07/17 05:45 RBC 2.94 Mil/cmm (3.80-5.20) L 08/07/17 05:45 Hgb 9.8 gm/dL (12-16) L 08/07/17 05:45 Hct 27.9 % (41.0-60) L 08/07/17 05:45 MCV 95.0 fl (81-100) 08/07/17 05:45 MCH 33.4 pg (27.0-31.0) H 08/07/17 05:45 MCHC Differential 35.2 pg (28.0-36.0) 08/07/17 05:45 RDW 17.8 % (11.5-20.0) 08/07/17 05:45 Plt Count 195 Th/cmm (150-400) 08/07/17 05:45 MPV 11.4 fl 08/07/17 05:45 Neutrophils % 83.3 % (40.0-80.0) H 08/06/17 07:15 Band Neutrophils % 8 % (0-10) 08/07/17 05:45 Lymphocytes % 5.0 % (20.0-50.0) L 08/06/17 07:15 Monocytes % 8.7 % (2.0-10.0) 08/06/17 07:15 Eosinophils % 3.0 % (0.0-5.0) 08/06/17 07:15 Basophils % 0.0 % (0.0-2.0) 08/06/17 07:15 Neutrophils (Manual) 74 % (40-80) 08/07/17 05:45 Lymphocytes 5 % (20-50) L 08/07/17 05:45 Monocytes 12 % (2-10) H 08/07/17 05:45 Eosinophils 5 % (0-5) 08/05/17 06:15 Basophils 1 % (0-3) 08/07/17 05:45 Hypochromia 1+ 08/02/17 15:37 Platelet Estimate ADEQUATE (NORMAL) 08/07/17 05:45 Platelet Morphology NORMAL (NORMAL) 08/02/17 15:37 Anisocytosis 1+ 08/07/17 05:45 Crenated Cell 2+ 08/02/17 15:37 RBC Morph Micro Appear ABNORMAL (NORMAL) 08/02/17 15:37 PT 12.9 SECONDS (9.5-11.5) H 08/02/17 13:58 INR 1.23 (0.5-1.4) 08/02/17 13:58 PTT (Actin FS) 33.6 SECONDS (26.0-38.0) 08/02/17 13:58 Specimen Source Arterial 08/03/17 08:58 Sample Site Right Radial 08/03/17 08:58 pH 7.42 (7.35-7.45) 08/03/17 08:58 pCO2 37.0 mmHg (35.0-45.0) 08/03/17 08:58 pO2 204.0 mmHg (80.0-100.0) H 08/03/17 08:58 HCO3 24.8 mEq/L (20.0-26.0) 08/03/17 08:58 Base Excess -0.2 mEq/L (-3.0-3.0) 08/03/17 08:58 O2 Saturation 100.0 % (92.0-100.0) 08/03/17 08:58 Rhett Test Positive 08/03/17 08:58 Vent Rate 12 08/03/17 08:58 Inspired O2 60 08/03/17 08:58 Tidal Volume 450 08/03/17 08:58 PEEP 5 08/03/17 08:58 Pressure (ins/psv/peep) NA 08/03/17 08:58 Critical Value LZHANG 08/03/17 08:58 Sodium 132 mEq/L (136-145) L 08/07/17 05:45 Potassium 3.6 mEq/L (3.5-5.1) 08/07/17 05:45 Chloride 95 mEq/L (98-107) L 08/07/17 05:45 Carbon Dioxide 24.1 mEq/L (21.0-31.0) 08/07/17 05:45 Anion Gap 16.5 (7.0-16.0) H 08/07/17 05:45 BUN 58 mg/dL (7-25) H 08/07/17 05:45 Creatinine 3.4 mg/dL (0.6-1.2) H 08/07/17 05:45 Est GFR ( Amer) TNP 08/07/17 05:45 Est GFR (Non-Af Amer) TNP 08/07/17 05:45 BUN/Creatinine Ratio 17.1 08/07/17 05:45 Glucose 361 mg/dL (70-105) H 08/07/17 05:45 POC Glucose 350 MG/DL (70 - 105) H 08/07/17 17:37 Hemoglobin A1c % 7.7 % (4.0-6.0) H 08/02/17 15:37 Whole Bld Lactic Acid 1.97 mmol/L (0.60-1.99) 08/02/17 13:49 Calcium 8.7 mg/dL (8.6-10.3) 08/07/17 05:45 Magnesium 3.0 mg/dL (1.9-2.7) H 08/05/17 06:15 Iron 10 ug/dL (27-139) L 08/02/17 13:56 TIBC 135 ug/dL (250-450) L 08/02/17 13:56 Iron Saturation 7 % (15-55) L 08/02/17 13:56 Unsaturated IBC 125 ug/dL (118-369) 08/02/17 13:56 Ferritin 588 ng/mL (15-150) H 08/02/17 13:56 Total Bilirubin 0.4 mg/dL (0.3-1.0) 08/02/17 13:57 Direct Bilirubin 0.09 mg/dL (0.0-0.2) 08/02/17 13:57 AST 26 U/L (13-39) 08/02/17 13:57 ALT 15 U/L (7-52) 08/02/17 13:57 Alkaline Phosphatase 120 U/L (34-104) H 08/02/17 13:57 Troponin I 1.16 ng/mL (0.01-0.05) H* D 08/04/17 06:30 B-Natriuretic Peptide 372.0 pg/mL (5.0-100.0) H 08/05/17 06:15 Total Protein 5.9 gm/dL (6.0-8.3) L 08/02/17 13:57 Albumin 3.0 gm/dL (3.7-5.3) L 08/02/17 13:57 Globulin 2.9 gm/dL 08/02/17 13:57 Albumin/Globulin Ratio 1.0 (1.0-1.8) 08/02/17 13:57 Triglycerides 132 mg/dL (<150) 08/04/17 06:30 Cholesterol 55 mg/dL (<200) 08/04/17 06:30 LDL Cholesterol Direct 16 mg/dL (75-193) L 08/04/17 06:30 HDL Cholesterol 13 mg/dL (23-92) L 08/04/17 06:30 Amylase 12 U/L (29-103) L 08/02/17 13:43 Lipase 4 U/L (11-82) L 08/02/17 13:43 TSH 3.74 uIU/ml (0.34-5.60) 08/04/17 06:30 Stool Occult Blood POSITIVE (NEGATIVE) H 08/03/17 17:50 Random Vancomycin 19.3 ug/mL (5.0-40.0) 08/07/17 05:45 Blood Type A POSITIVE 08/02/17 20:54 Antibody Screen POSITIVE 08/02/17 20:54 Crossmatch See Detail 08/02/17 20:54 - Physical Exam Vitals and I&O: Vital Signs Temp 98.6 F 08/07/17 16:00 Pulse 101 08/07/17 19:35 Resp 16 08/07/17 16:00 BP 101/29 08/07/17 16:15 Pulse Ox 100 08/07/17 19:35 Intake & Output 08/07/17 08/07/17 08/08/17 06:59 18:59 06:59 Intake Total 1592.596 519.112 Balance 1592.596 519.112 Weight (lbs) 87.26 kg Intake: Intake, IV Amount 612.596 519.112 Colistimethate 80 mg In 100 Sodium Chloride 0.9% 100 ml @ 100 mls/hr IV Q36H [facility] Rx#:[id number] Diltiazem 125 mg In 39.417 Dextrose 5% 100 ml @ 0 MG /HR IV TITR [facility] Rx#: [id number] Fluconazole 200mg/100mL 100 200 mg In 100 ml @ 100 mls/hr IV Q24HR [facility] Rx#: [id number] Norepinephrine 8 mg In 223.179 199.112 Dextrose 5% 250 ml @ 0 MCG/MIN IV TITR PRN Rx#: [id number] Piperacillin Sodium/ 150 100 Tazobact 2.25 gm In Sodium Chloride 0.9% 50 ml @ 100 mls/hr IV Q6HR [facility] Rx#:[id number] Tube Feeding 600 Other 380 Other: # Bowel Movements 1 Stool Characteristics Soft Soft Liquid Liquid Black Brown Black Active Medications: Current Medications Acetaminophen (Tylenol 650mg/20.3ml Suspension) 650 mg GT DAILY [facility] Stop: 10/03/17 08:59 Last Admin: 08/07/17 09:38 Dose: 650 mg Albuterol/Ipratropium (Duoneb Neb) 3 ml HHN Q4HRT [facility] Stop: 10/02/17 10:59 Last Admin: 08/07/17 19:34 Dose: 3 ml Ascorbic Acid (Vitamin C) 500 mg PO DAILY [facility] Stop: 10/03/17 08:59 Last Admin: 08/07/17 09:38 Dose: 500 mg Aspirin (Aspirin Chewable) 81 mg GT DAILY [facility] Stop: 10/03/17 08:59 Last Admin: 08/07/17 09:38 Dose: 81 mg Atorvastatin Calcium (Lipitor) 40 mg GT HS [facility] Stop: 10/03/17 20:59 Last Admin: 08/06/17 21:50 Dose: 40 mg Bisacodyl (Dulcolax 10 Mg Supp) 10 mg RC Q72HR PRN PRN Reason: IF MOM INEFFECTIVE Stop: 10/02/17 14:13 Bisacodyl (Dulcolax 10 Mg Supp) 10 mg RC PRN PRN PRN Reason: IF MOM INEFFECTIVE Stop: 10/02/17 14:13 Chlorhexidine Gluconate (Peridex) 15 ml MM 0800,2000 [facility] Stop: 10/02/17 07:59 Last Admin: 08/07/17 07:10 Dose: 15 ml Cholecalciferol (Vitamin D3) 1,000 iu GT DAILY [facility] Stop: 10/03/17 08:59 Last Admin: 08/07/17 09:38 Dose: 1,000 iu Diltiazem HCl (Cardizem) 5 mg IVP Q4H PRN PRN Reason: INCREASE HEART RATE Stop: 10/01/17 21:59 Last Admin: 08/06/17 14:50 Dose: 5 mg Docusate Sodium (Colace) 100 mg PO DAILY [facility] Stop: 10/03/17 08:59 Last Admin: 08/07/17 09:39 Dose: 100 mg Dopamine HCl/Dextrose (Dopamine) 400 mg in 250 mls @ 0 mls/hr IV TITR PRN; Protocol; Per Protocol PRN Reason: BP MAINTENANCE (PER PROTOCOL) Stop: 10/02/17 07:47 Norepinephrine Bitartrate 8 mg (/ Dextrose) 258 mls @ 0 mls/hr IV TITR PRN; Protocol; 0 MCG/MIN PRN Reason: BP MAINTENANCE (PER PROTOCOL) Stop: 10/05/17 13:59 Last Admin: 08/07/17 09:48 Dose: 16 mcg/min, 30.96 mls/hr Diltiazem HCl 125 mg/ Dextrose 125 mls @ 0 mls/hr IV TITR [facility]; 0 MG/HR PRN Reason: Protocol Stop: 10/05/17 14:59 Last Titration: 08/06/17 23:54 Dose: 5 mg/hr, 5 mls/hr Piperacillin Sod/Tazobactam (Sod 2.25 gm/ Sodium Chloride) 50 mls @ 100 mls/hr IV Q6HR [facility] Stop: 10/05/17 17:59 Last Infusion: 08/07/17 18:05 Dose: Infused Insulin Aspart (Novolog Insulin Sliding Scale) 0 units SUBQ Q6HR [facility] PRN Reason: Protocol Stop: 10/02/17 00:00 Last Admin: 08/07/17 17:42 Dose: 8 units Lactobacillus Rhamnosus (Culturelle 15b) 1 each PO DAILY [facility] Stop: 10/07/17 08:59 Lorazepam (Ativan) 1 mg IVP Q2HR PRN; Protocol PRN Reason: Restlessness Stop: 10/01/17 21:18 Last Admin: 08/07/17 10:20 Dose: 1 mg Magnesium Hydroxide (Milk Of Magnesia) 30 ml GT Q72H PRN PRN Reason: NO BM FOR THREE DAYS Stop: 10/02/17 14:13 Mirtazapine (Remeron) 15 mg GT HS [facility] PRN Reason: Protocol Stop: 10/02/17 20:59 Last Admin: 08/06/17 21:50 Dose: 15 mg Miscellaneous (Clinical Monitoring) 1 ea PRN PRN PRN Reason: RENAL Stop: 10/05/17 11:28 Miscellaneous (Zosyn Iv Per Pharmacy) 1 ea PRN PRN PRN Reason: PROTOCOL Stop: 10/05/17 15:59 Miscellaneous (Probiotic Screen) 1 ea PRN PRN PRN Reason: PROTOCOL Stop: 10/06/17 14:14 Multivitamins/Vitamin C (Theragran) 1 tab PO DAILY [facility] Stop: 10/03/17 08:59 Last Admin: 08/07/17 09:38 Dose: 1 tab Mupirocin (Bactroban Oint) 1 appl NS BID [facility] Stop: 08/09/17 17:01 Last Admin: 08/07/17 17:34 Dose: 1 appl Ondansetron HCl (Zofran Odt) 4 mg PO Q6HR PRN PRN Reason: Nausea / Vomiting Stop: 10/02/17 14:13 Pantoprazole Sodium (Protonix) 40 mg IVP DAILY [facility] Stop: 10/02/17 08:59 Last Admin: 08/07/17 09:38 Dose: 40 mg Simethicone (Mylicon) 80 mg GT Q6H PRN PRN Reason: GAS PAIN Stop: 10/02/17 14:13 Sodium Phosphate (Fleet Enema) 118 ml RC PRN PRN PRN Reason: IF MOM/DULCOLAX INEFFECTIVE Stop: 10/02/17 14:13 Temazepam (Restoril) 15 mg GT HS PRN; Protocol PRN Reason: Insomnia Stop: 10/02/17 14:13 Last Admin: 08/06/17 00:26 Dose: 15 mg Zinc Sulfate (Zinc Sulfate) 220 mg GT DAILY [facility] Stop: 10/03/17 08:59 Last Admin: 08/07/17 09:38 Dose: 220 mg General: Alert, No acute distress (scattered rhonchi) HEENT: Atraumatic, PERRLA, EOMI, Mucous membr. moist/pink Neck: Supple, Other (TRACH) Cardiovascular: Regular rate Lungs: Other (few rhonchi) Abdomen: Bowel sounds, Soft, Other (INTACT GT) Extremities: Edema (upper wxtrmities), Other (upper ext) Neurological: Sensation intact Skin: no Rash Psych/Mental Status: Mood NL - Procedures Procedures: Procedures Procedure Code Date BLOOD TRANSFUSION SERVICE 61909 08/02/17 EXCISION OF STOMACH, ENDO, DIAGN [id number] 07/10/17 INSPECTION OF LOWER INTESTINAL TRACT, ENDO [id number] 07/10/17 PERFORMANCE OF URINARY FILTRATION, <6 HRS/DAY [id number] 07/10/17 RESPIRATORY VENTILATION, GREATER THAN 96 CONSECUTIVE HOURS [id number] 08/02/17 TRANSFUSE NONAUT RED BLOOD CELLS IN PERIPH VEIN, PERC 72096P6 08/02/17 Assessment/Plan - Assessment Assessment: 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/L UE Edema, Cellulitis Shock Sepsis RF on Vent Acute on Chronic Decomp CHF G (-) Septicemia - Plan Plan: Lab - Result Diagrams 08/04/17 06:30 08/04/17 06:30 Current Medications Acetaminophen (Tylenol 650mg/20.3ml Suspension) 650 mg GT DAILY [facility] Stop: 10/03/17 08:59 Last Admin: 08/04/17 09:18 Dose: 650 mg Albuterol/Ipratropium (Duoneb Neb) 3 ml HHN Q4HRT [facility] Stop: 10/02/17 10:59 Last Admin: 08/04/17 11:25 Dose: 3 ml Ascorbic Acid (Vitamin C) 500 mg PO DAILY [facility] Stop: 10/03/17 08:59 Last Admin: 08/04/17 09:18 Dose: 500 mg Aspirin (Aspirin Chewable) 81 mg GT DAILY [facility] Stop: 10/03/17 08:59 Last Admin: 08/04/17 09:18 Dose: 81 mg Atorvastatin Calcium (Lipitor) 40 mg GT HS [facility] PRN Reason: Protocol Stop: 10/02/17 20:59 Last Admin: 08/03/17 20:19 Dose: 40 mg Bisacodyl (Dulcolax 10 Mg Supp) 10 mg RC Q72HR PRN PRN Reason: IF MOM INEFFECTIVE Stop: 10/02/17 14:13 Bisacodyl (Dulcolax 10 Mg Supp) 10 mg RC PRN PRN PRN Reason: IF MOM INEFFECTIVE Stop: 10/02/17 14:13 Chlorhexidine Gluconate (Peridex) 15 ml MM 0800,2000 [facility] Stop: 10/02/17 07:59 Last Admin: 08/04/17 08:00 Dose: 15 ml Cholecalciferol (Vitamin D3) 1,000 iu GT DAILY [facility] Stop: 10/03/17 08:59 Last Admin: 08/04/17 09:18 Dose: 1,000 iu Diltiazem HCl (Cardizem) 5 mg IVP Q4H PRN PRN Reason: INCREASE HEART RATE Stop: 10/01/17 21:59 Last Admin: 08/03/17 01:38 Dose: 5 mg Docusate Sodium (Colace) 100 mg PO DAILY [facility] Stop: 10/03/17 08:59 Last Admin: 08/04/17 09:18 Dose: 100 mg Heparin Sodium (Porcine) (Heparin) 5,000 units HD UD [facility] Stop: 08/05/17 08:59 Last Admin: 08/04/17 09:19 Dose: Not Given Fluconazole (Diflucan) 200 mg in 100 mls @ 100 mls/hr IV Q24HR [facility] Stop: 10/02/17 14:59 Last Infusion: 08/03/17 15:40 Dose: Infused Meropenem 500 mg/ Sodium (Chloride) 100 mls @ 100 mls/hr IV Q24H [facility] Stop: 10/02/17 12:59 Last Admin: 08/04/17 13:17 Dose: 100 mls/hr Dopamine HCl/Dextrose (Dopamine) 400 mg in 250 mls @ 0 mls/hr IV TITR PRN; Protocol; Per Protocol PRN Reason: BP MAINTENANCE (PER PROTOCOL) Stop: 10/02/17 07:47 Norepinephrine Bitartrate 4 mg (/ Dextrose) 254 mls @ 0 mls/hr IV TITR PRN; Protocol; Per Protocol PRN Reason: BP MAINTENANCE (PER PROTOCOL) Stop: 10/02/17 08:31 Last Admin: 08/03/17 23:47 Dose: 4 mcg/min, 15.24 mls/hr Colistimethate Sodium 80 mg/ (Sodium Chloride) 100 mls @ 100 mls/hr IV Q36H [facility] Stop: 10/02/17 20:59 Last Infusion: 08/03/17 21:20 Dose: Infused Insulin Aspart (Novolog Insulin Sliding Scale) 0 units SUBQ Q6HR [facility] PRN Reason: Protocol Stop: 10/02/17 00:00 Last Admin: 08/04/17 11:30 Dose: 6 units Lorazepam (Ativan) 1 mg IVP Q2HR PRN; Protocol PRN Reason: Restlessness Stop: 10/01/17 21:18 Last Admin: 08/04/17 01:05 Dose: 1 mg Magnesium Hydroxide (Milk Of Magnesia) 30 ml GT Q72H PRN PRN Reason: NO BM FOR THREE DAYS Stop: 10/02/17 14:13 Mirtazapine (Remeron) 15 mg GT HS [facility] PRN Reason: Protocol Stop: 10/02/17 20:59 Last Admin: 08/03/17 20:19 Dose: 15 mg Miscellaneous (Vancomycin Iv Per Pharmacy) 1 ea PRN PRN PRN Reason: PROTOCOL Stop: 10/01/17 20:42 Miscellaneous (Zosyn Iv Per Pharmacy) 1 [facility] PRN PRN PRN Reason: PROTOCOL Stop: 10/01/17 20:42 Multivitamins/Vitamin C (Theragran) 1 tab PO DAILY [facility] Stop: 10/03/17 08:59 Last Admin: 08/04/17 09:18 Dose: 1 tab Ondansetron HCl (Zofran Odt) 4 mg PO Q6HR PRN PRN Reason: Nausea / Vomiting Stop: 10/02/17 14:13 Pantoprazole Sodium (Protonix) 40 mg IVP DAILY [facility] Stop: 10/02/17 08:59 Last Admin: 08/04/17 09:18 Dose: 40 mg Simethicone (Mylicon) 80 mg GT Q6H PRN PRN Reason: GAS PAIN Stop: 10/02/17 14:13 Sodium Phosphate (Fleet Enema) 118 ml RC PRN PRN PRN Reason: IF MOM/DULCOLAX INEFFECTIVE Stop: 10/02/17 14:13 Temazepam (Restoril) 15 mg GT HS PRN; Protocol PRN Reason: Insomnia Stop: 10/02/17 14:13 Last Admin: 08/03/17 20:19 Dose: 15 mg Zinc Sulfate (Zinc Sulfate) 220 mg GT DAILY [facility] Stop: 10/03/17 08:59 Last Admin: 08/04/17 09:18 Dose: 220 scheduled for dialysis today Venous & Arterial duplex scans were negative for DVT or clots scheduled for dialysis again in am replace K CXR still showed b/l effusions Nutritional Asmnt/Malnutr-PDOC - Dietary Evaluation Malnutrition Findings (Please click <Entered> for more info): Nutritional Asmnt/Malnutrition Start: 08/05/17 15: 53 Text: Status: Complete Freq: Document 08/05/17 15:53 JOHANNAMAX (Rec: 08/05/17 16:19 JOHANNAMAX [id number]) Nutritional Asmnt/Malnutrition Patient General Information Nutritional Screening High Risk Diagnosis sepsis, respiratory failure, ESRD Pertinent Medical Hx/Surgical Hx ESRD on HD, respiratory failure with tracheostomy, dysphagia, a fib, anemia, HTN, GERD Subjective Information Pt on vent, not able to interview. Pt was on TF Novosource Renal 30ml/hr continuous, NPO today for surgery. Pt has dialysis ordred per nurse note. Current Diet Order/ Nutrition Support NPO on 08/05 Pertinent Medications vit C, vit D3, colace, novolog , remeron, theragran, protonix , zinc Pertinent Labs 08/05 Na 134, K 3.6, Cl 102, BUN 77, Cr 4.2, Glucose 216, POC 224-233 08/02 A1c 7.7 Nutritional Hx/Data Height 1.6 m Height (Calculated Centimeters) 160.0 Current Weight (lbs) 87.543 kg Weight (Calculated Kilograms) 87.5 Weight (Calculated Grams) 80109.3 [place] Body Weight 115 Body Mass Index (BMI) 34.2 Weight Status Obese GI Symptoms GI Symptoms None Last BM 08/04 Difficult in: None Skin Integrity/Comment: reddened to left/right inner thigh, right lateral index finger, right/left arm; skin tear to left abdominal fold; pressure area to coccy/sacral Estimated Nutritional Goals BEE in Kcals: Adj wt of IBW Calories/Kcals/Kg 30-35 adj wt 61kg Kcals Calculated 8836-7780 Protein: Adj wt of IBW Protein g/k.2-1.4 Protein Calculated 73-85 Fluid: ml 1830-2135ml (1ml/kcal) Nutritional Problem 1. Problem Problem altered nutrition related lab values Etiology hx of ESRD, endocrine dysfunction Signs/Symptoms: BUN 77, Cr 4.2, Glucose 216, POC 224-233, A1c 7.7 Malnutrition Alert Protein-Calorie Malnutrition N/A Is there a minimum of two criteria No selected? Query Text:Check all the applicable criteria. A minimum of two criteria are recommended for diagnosis of either severe or non-severe malnutrition. Intervention/Recommendation Comments 1. Resume TF Novosource Renal 30ml/hr continuous as ordered. increase to goal rate of 40ml /hr continuous as tolerated. This will provide 1920kcal, 87g protein and 688ml free water, meeting 100% of nutritional needs 2. Monitor TF rate, tolerance, wt weekly, skin integrity and labs 3. F/U as high risk in 2-3 days, 08/07-08/08 Expected Outcomes/Goals Expected Outcomes/Goals 1. Pt to meet at least 75% of nutritional needs via nutrition support with tolerance 2. Wt stability, skin to remain intact, labs to approach WNL.
[2017-08-08] MEDS: Albuterol/Ipratropium Neb 3 ML AERS HHN SCH ×6 (03:27→22:50)
[2017-08-08 05:10] LABS: HEMATOCRIT 30.6 % (41.0-60); RED CELL DISTRIBUTION WIDTH 17.9 % (11.5-20.0)
[2017-08-08 05:12] LABS: MEAN CELL VOLUME 90.7 fl (81-100); MEAN CORPUSCULAR HEMOGLOBIN 29.5 pg (27.0-31.0); MEAN CORPUSCULAR HGB CONC 32.5 pg (28.0-36.0); MEAN PLATELET VOLUME 11.3 fl; PLATELET COUNT 156 Th/cmm (150-400); RED BLOOD COUNT 3.37 Mil/cmm (3.80-5.20)
[2017-08-08 05:17] LABS: MANUAL DIFF REQUIRED? YES; WHITE BLOOD COUNT 15.6 Th/cmm (4.8-10.8)
[2017-08-08 05:23] LABS: ALKALINE PHOSPHATASE 98 U/L (34-104); ANION GAP 14.6 (7.0-16.0); BILIRUBIN,TOTAL 0.8 mg/dL (0.3-1.0); BUN - UREA NITROGEN 38 mg/dL (7-25); CALCIUM SERUM 8.4 mg/dL (8.6-10.3); CARBON DIOXIDE 27.2 mEq/L (21.0-31.0); CHLORIDE 99 mEq/L (98-107); CREATININE - SERUM 2.6 mg/dL (0.6-1.2); GLUCOSE 302 mg/dL (70-105); POTASSIUM SERUM 3.8 mEq/L (3.5-5.1); SGOT 33 U/L (13-39); SGPT/ALT 16 U/L (7-52); SODIUM SERUM 137 mEq/L (136-145); TOTAL PROTEIN,SERUM 5.9 gm/dL (6.0-8.3)
[2017-08-08 06:06] LABS: BAND NEUTROPHILE 6 % (0-10); LYMPHOCYTE 10 % (20-50); MONOCYTE 4 % (2-10); NEUTROPHILS 80 % (40-80); TOTAL CELLS COUNTED 100
[2017-08-08] MEDS: INSULIN ASPART SLIDING SCALE 100 UNITS/ML UNIT SUBQ SCH ×3 (06:36→17:30)
[2017-08-08] MEDS: Piperacillin/Tazobact 2.25 gm in 0.9% NS 50 ML IV SCH ×4 (06:36→23:45)
--- NOTE | 2017-08-08 08:37 | Diagnostic Imaging Report ---
Portable chest x-ray HISTORY: Shortness of breath, congestive heart failure Compared with the prior exam of 08/05/2017, the heart remains enlarged. Persistent bilateral pleural effusions. Pulmonary vascular distribution is seen consistent with cardiac decompensation. IMPRESSION: 1. Persistent cardiomegaly with bilateral pleural effusions and changes consistent with a degree of congestive heart failure.
[2017-08-08] MEDS: Aspirin 81mg Chewable Tab GT SCH (09:11)
[2017-08-08] MEDS: Multivitamin Tab PO SCH (09:11)
[2017-08-08] MEDS: Lactobacillus Rhamnosus GG 15 Billion CFU CAP.SPRINK PO SCH (09:11)
--- NOTE | 2017-08-08 09:11 | GI Progress Note ---
Subjective - Review of Systems Subjective: NO GI BLEEDING PER STAFF HAS BROWN YELLOW STOOL Objective - Results Result Diagrams: 08/08/17 04:20 08/08/17 04:20 Recent Labs: Laboratory Last Values WBC 15.6 Th/cmm (4.8-10.8) H 08/08/17 04:20 RBC 3.37 Mil/cmm (3.80-5.20) L 08/08/17 04:20 Hgb 10.0 gm/dL (12-16) L 08/08/17 04:20 Hct 30.6 % (41.0-60) L 08/08/17 04:20 MCV 90.7 fl (81-100) 08/08/17 04:20 MCH 29.5 pg (27.0-31.0) 08/08/17 04:20 MCHC Differential 32.5 pg (28.0-36.0) 08/08/17 04:20 RDW 17.9 % (11.5-20.0) 08/08/17 04:20 Plt Count 156 Th/cmm (150-400) 08/08/17 04:20 MPV 11.3 fl 08/08/17 04:20 Neutrophils % 83.3 % (40.0-80.0) H 08/06/17 07:15 Band Neutrophils % 6 % (0-10) 08/08/17 04:20 Lymphocytes % 5.0 % (20.0-50.0) L 08/06/17 07:15 Monocytes % 8.7 % (2.0-10.0) 08/06/17 07:15 Eosinophils % 3.0 % (0.0-5.0) 08/06/17 07:15 Basophils % 0.0 % (0.0-2.0) 08/06/17 07:15 Neutrophils (Manual) 80 % (40-80) 08/08/17 04:20 Lymphocytes 10 % (20-50) L 08/08/17 04:20 Monocytes 4 % (2-10) 08/08/17 04:20 Eosinophils 5 % (0-5) 08/05/17 06:15 Basophils 1 % (0-3) 08/07/17 05:45 Hypochromia 1+ 08/02/17 15:37 Platelet Estimate ADEQUATE (NORMAL) 08/07/17 05:45 Platelet Morphology NORMAL (NORMAL) 08/02/17 15:37 Anisocytosis 1+ 08/07/17 05:45 Crenated Cell 2+ 08/02/17 15:37 RBC Morph Micro Appear ABNORMAL (NORMAL) 08/02/17 15:37 PT 12.9 SECONDS (9.5-11.5) H 08/02/17 13:58 INR 1.23 (0.5-1.4) 08/02/17 13:58 PTT (Actin FS) 33.6 SECONDS (26.0-38.0) 08/02/17 13:58 Specimen Source Arterial 08/03/17 08:58 Sample Site Right Radial 08/03/17 08:58 pH 7.42 (7.35-7.45) 08/03/17 08:58 pCO2 37.0 mmHg (35.0-45.0) 08/03/17 08:58 pO2 204.0 mmHg (80.0-100.0) H 08/03/17 08:58 HCO3 24.8 mEq/L (20.0-26.0) 08/03/17 08:58 Base Excess -0.2 mEq/L (-3.0-3.0) 08/03/17 08:58 O2 Saturation 100.0 % (92.0-100.0) 08/03/17 08:58 Rhett Test Positive 08/03/17 08:58 Vent Rate 12 08/03/17 08:58 Inspired O2 60 08/03/17 08:58 Tidal Volume 450 08/03/17 08:58 PEEP 5 08/03/17 08:58 Pressure (ins/psv/peep) NA 08/03/17 08:58 Critical Value LZHANG 08/03/17 08:58 Sodium 137 mEq/L (136-145) 08/08/17 04:20 Potassium 3.8 mEq/L (3.5-5.1) 08/08/17 04:20 Chloride 99 mEq/L (98-107) 08/08/17 04:20 Carbon Dioxide 27.2 mEq/L (21.0-31.0) 08/08/17 04:20 Anion Gap 14.6 (7.0-16.0) 08/08/17 04:20 BUN 38 mg/dL (7-25) H 08/08/17 04:20 Creatinine 2.6 mg/dL (0.6-1.2) H 08/08/17 04:20 Est GFR ( Amer) TNP 08/08/17 04:20 Est GFR (Non-Af Amer) TNP 08/08/17 04:20 BUN/Creatinine Ratio 14.6 08/08/17 04:20 Glucose 302 mg/dL (70-105) H 08/08/17 04:20 POC Glucose 310 MG/DL (70 - 105) H 08/08/17 06:33 Hemoglobin A1c % 7.7 % (4.0-6.0) H 08/02/17 15:37 Whole Bld Lactic Acid 1.97 mmol/L (0.60-1.99) 08/02/17 13:49 Calcium 8.4 mg/dL (8.6-10.3) L 08/08/17 04:20 Magnesium 3.0 mg/dL (1.9-2.7) H 08/05/17 06:15 Iron 10 ug/dL (27-139) L 08/02/17 13:56 TIBC 135 ug/dL (250-450) L 08/02/17 13:56 Iron Saturation 7 % (15-55) L 08/02/17 13:56 Unsaturated IBC 125 ug/dL (118-369) 08/02/17 13:56 Ferritin 588 ng/mL (15-150) H 08/02/17 13:56 Total Bilirubin 0.8 mg/dL (0.3-1.0) 08/08/17 04:20 Direct Bilirubin 0.09 mg/dL (0.0-0.2) 08/02/17 13:57 AST 33 U/L (13-39) 08/08/17 04:20 ALT 16 U/L (7-52) 08/08/17 04:20 Alkaline Phosphatase 98 U/L (34-104) 08/08/17 04:20 Troponin I 1.16 ng/mL (0.01-0.05) H* D 08/04/17 06:30 B-Natriuretic Peptide 372.0 pg/mL (5.0-100.0) H 08/05/17 06:15 Total Protein 5.9 gm/dL (6.0-8.3) L 08/08/17 04:20 Albumin 3.0 gm/dL (3.7-5.3) L 08/08/17 04:20 Globulin 2.9 gm/dL 08/08/17 04:20 Albumin/Globulin Ratio 1.0 (1.0-1.8) 08/08/17 04:20 Triglycerides 132 mg/dL (<150) 08/04/17 06:30 Cholesterol 55 mg/dL (<200) 08/04/17 06:30 LDL Cholesterol Direct 16 mg/dL (75-193) L 08/04/17 06:30 HDL Cholesterol 13 mg/dL (23-92) L 08/04/17 06:30 Amylase 12 U/L (29-103) L 08/02/17 13:43 Lipase 4 U/L (11-82) L 08/02/17 13:43 TSH 3.74 uIU/ml (0.34-5.60) 08/04/17 06:30 Stool Occult Blood POSITIVE (NEGATIVE) H 08/03/17 17:50 Random Vancomycin 19.3 ug/mL (5.0-40.0) 08/07/17 05:45 Blood Type A POSITIVE 08/02/17 20:54 Antibody Screen POSITIVE 08/02/17 20:54 Crossmatch See Detail 08/02/17 20:54 - Physical Exam Vitals and I&O: Vital Signs Temp 98.6 F 08/08/17 08:00 Pulse 120 08/08/17 08:00 Resp 16 08/08/17 08:00 BP 104/53 08/08/17 08:00 Pulse Ox 100 08/08/17 08:00 Intake & Output 08/07/17 08/08/17 08/08/17 18:59 06:59 18:59 Intake Total 519.112 566 800 Balance 519.112 566 800 Weight (lbs) 87.317 kg Intake: Intake, IV Amount 519.112 566 Fluconazole 200mg/100mL 100 200 mg In 100 ml @ 100 mls/hr IV Q24HR [facility] Rx#: [id number] Norepinephrine 8 mg In 199.112 516 Dextrose 5% 250 ml @ 0 MCG/MIN IV TITR PRN Rx#: [id number] Piperacillin Sodium/ 100 50 Tazobact 2.25 gm In Sodium Chloride 0.9% 50 ml @ 100 mls/hr IV Q6HR [facility] Rx#:[id number] Tube Feeding 600 Other 200 Other: # Bowel Movements 2 Stool Characteristics Soft Soft Liquid Liquid Brown Brown Black Black Active Medications: Current Medications Acetaminophen (Tylenol 650mg/20.3ml Suspension) 650 mg GT DAILY [facility] Stop: 10/03/17 08:59 Last Admin: 08/07/17 09:38 Dose: 650 mg Albuterol/Ipratropium (Duoneb Neb) 3 ml HHN Q4HRT [facility] Stop: 10/02/17 10:59 Last Admin: 08/08/17 07:14 Dose: 3 ml Ascorbic Acid (Vitamin C) 500 mg PO DAILY [facility] Stop: 10/03/17 08:59 Last Admin: 08/07/17 09:38 Dose: 500 mg Aspirin (Aspirin Chewable) 81 mg GT DAILY [facility] Stop: 10/03/17 08:59 Last Admin: 08/07/17 09:38 Dose: 81 mg Atorvastatin Calcium (Lipitor) 40 mg GT HS [facility] Stop: 10/03/17 20:59 Last Admin: 08/07/17 23:10 Dose: 40 mg Bisacodyl (Dulcolax 10 Mg Supp) 10 mg RC Q72HR PRN PRN Reason: IF MOM INEFFECTIVE Stop: 10/02/17 14:13 Bisacodyl (Dulcolax 10 Mg Supp) 10 mg RC PRN PRN PRN Reason: IF MOM INEFFECTIVE Stop: 10/02/17 14:13 Chlorhexidine Gluconate (Peridex) 15 ml MM 0800,2000 [facility] Stop: 10/02/17 07:59 Last Admin: 08/07/17 20:15 Dose: 15 ml Cholecalciferol (Vitamin D3) 1,000 iu GT DAILY [facility] Stop: 10/03/17 08:59 Last Admin: 08/07/17 09:38 Dose: 1,000 iu Diltiazem HCl (Cardizem) 5 mg IVP Q4H PRN PRN Reason: INCREASE HEART RATE Stop: 10/01/17 21:59 Last Admin: 08/06/17 14:50 Dose: 5 mg Docusate Sodium (Colace) 100 mg PO DAILY [facility] Stop: 10/03/17 08:59 Last Admin: 08/07/17 09:39 Dose: 100 mg Dopamine HCl/Dextrose (Dopamine) 400 mg in 250 mls @ 0 mls/hr IV TITR PRN; Protocol; Per Protocol PRN Reason: BP MAINTENANCE (PER PROTOCOL) Stop: 10/02/17 07:47 Norepinephrine Bitartrate 8 mg (/ Dextrose) 258 mls @ 0 mls/hr IV TITR PRN; Protocol; 0 MCG/MIN PRN Reason: BP MAINTENANCE (PER PROTOCOL) Stop: 10/05/17 13:59 Last Admin: 08/08/17 08:54 Dose: 22 mcg/min, 42.57 mls/hr Diltiazem HCl 125 mg/ Dextrose 125 mls @ 0 mls/hr IV TITR [facility]; 0 MG/HR PRN Reason: Protocol Stop: 10/05/17 14:59 Last Titration: 08/06/17 23:54 Dose: 5 mg/hr, 5 mls/hr Piperacillin Sod/Tazobactam (Sod 2.25 gm/ Sodium Chloride) 50 mls @ 100 mls/hr IV Q6HR [facility] Stop: 10/05/17 17:59 Last Admin: 08/08/17 06:36 Dose: 100 mls/hr Insulin Aspart (Novolog Insulin Sliding Scale) 0 units SUBQ Q6HR [facility] PRN Reason: Protocol Stop: 10/02/17 00:00 Last Admin: 08/08/17 06:36 Dose: 8 units Lactobacillus Rhamnosus (Culturelle 15b) 1 each PO DAILY [facility] Stop: 10/07/17 08:59 Lorazepam (Ativan) 1 mg IVP Q2HR PRN; Protocol PRN Reason: Restlessness Stop: 10/01/17 21:18 Last Admin: 08/07/17 23:28 Dose: 1 mg Magnesium Hydroxide (Milk Of Magnesia) 30 ml GT Q72H PRN PRN Reason: NO BM FOR THREE DAYS Stop: 10/02/17 14:13 Mirtazapine (Remeron) 15 mg GT HS [facility] PRN Reason: Protocol Stop: 10/02/17 20:59 Last Admin: 08/07/17 23:10 Dose: 15 mg Miscellaneous (Clinical Monitoring) 1 ea MC PRN PRN PRN Reason: RENAL Stop: 10/05/17 11:28 Miscellaneous (Zosyn Iv Per Pharmacy) 1 ea PRN PRN PRN Reason: PROTOCOL Stop: 10/05/17 15:59 Miscellaneous (Probiotic Screen) 1 ea MC PRN PRN PRN Reason: PROTOCOL Stop: 10/06/17 14:14 Multivitamins/Vitamin C (Theragran) 1 tab PO DAILY [facility] Stop: 10/03/17 08:59 Last Admin: 08/07/17 09:38 Dose: 1 tab Mupirocin (Bactroban Oint) 1 appl NS BID [facility] Stop: 08/09/17 17:01 Last Admin: 08/07/17 17:34 Dose: 1 appl Ondansetron HCl (Zofran Odt) 4 mg PO Q6HR PRN PRN Reason: Nausea / Vomiting Stop: 10/02/17 14:13 Pantoprazole Sodium (Protonix) 40 mg IVP DAILY [facility] Stop: 10/02/17 08:59 Last Admin: 08/07/17 09:38 Dose: 40 mg Simethicone (Mylicon) 80 mg GT Q6H PRN PRN Reason: GAS PAIN Stop: 10/02/17 14:13 Sodium Phosphate (Fleet Enema) 118 ml RC PRN PRN PRN Reason: IF MOM/DULCOLAX INEFFECTIVE Stop: 10/02/17 14:13 Temazepam (Restoril) 15 mg GT HS PRN; Protocol PRN Reason: Insomnia Stop: 10/02/17 14:13 Last Admin: 08/06/17 00:26 Dose: 15 mg Zinc Sulfate (Zinc Sulfate) 220 mg GT DAILY [facility] Stop: 10/03/17 08:59 Last Admin: 08/07/17 09:38 Dose: 220 mg General: Alert, No acute distress (scattered rhonchi) HEENT: Atraumatic, PERRLA, EOMI, Mucous membr. moist/pink Neck: Supple, Other (TRACH) Cardiovascular: Regular rate Lungs: Other (few rhonchi) Abdomen: Bowel sounds, Soft, Other (INTACT GT) Extremities: Edema (upper wxtrmities), Other (upper ext) Neurological: Sensation intact Skin: no Rash Psych/Mental Status: Mood NL - Procedures Procedures: Procedures Procedure Code Date BLOOD TRANSFUSION SERVICE 56719 08/02/17 EXCISION OF STOMACH, ENDO, DIAGN [id number] 07/10/17 INSPECTION OF LOWER INTESTINAL TRACT, ENDO [id number] 07/10/17 PERFORMANCE OF URINARY FILTRATION, <6 HRS/DAY [id number] 07/10/17 RESPIRATORY VENTILATION, GREATER THAN 96 CONSECUTIVE HOURS [id number] 08/02/17 TRANSFUSE NONAUT RED BLOOD CELLS IN PERIPH VEIN, PERC [id number] 08/02/17 Assessment/Plan - Assessment Assessment: 76 YO FEMALE WITH ANEMIA STOOL OB + NO OVERT GI BLEEDING BUT COULD BE SMALL BOWEL SOURCE RECENT EGD SHOWED GASTRITIS RECENT COLO SHOWED HEMORRHOIDS 1.FOLLOW H/H 2.IF GI BLEEDING OCCURS THEN GET BLEEDING SCAN VS ANGIOGRAPHY 3.AWAIT SBFT
[2017-08-08] MEDS: Chlorhexidine Gluconate 0.12% 15mL Mouthwash MM SCH ×2 (09:57→20:00)
--- NOTE | 2017-08-08 10:08 | Diagnostic Imaging Report ---
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 Surgical clips noted in the upper mid abdomen. Vascular calcification noted. Water-soluble contrast was instilled through the patient's gastrostomy tube. There is marked gastroesophageal reflux noted. There is free flow of contrast from the stomach into the small bowel. Detail somewhat limited. However, there appears to be normal small bowel caliber and mucosal fold pattern. No focal abnormalities. There is a mildly delayed transit of contrast to the colon. IMPRESSION: 1. Evidence of severe gastroesophageal reflux 2. Mildly delayed transit time through the small bowel. No definite evidence of obstruction.
--- NOTE | 2017-08-08 16:27 | General Progress Note ---
Subjective - Review of Systems Service Date: 08/08/17 Subjective: more awake, interacting, on vent Objective - Results Result Diagrams: 08/08/17 04:20 08/08/17 04:20 Recent Labs: Laboratory Last Values WBC 15.6 Th/cmm (4.8-10.8) H 08/08/17 04:20 RBC 3.37 Mil/cmm (3.80-5.20) L 08/08/17 04:20 Hgb 10.0 gm/dL (12-16) L 08/08/17 04:20 Hct 30.6 % (41.0-60) L 08/08/17 04:20 MCV 90.7 fl (81-100) 08/08/17 04:20 MCH 29.5 pg (27.0-31.0) 08/08/17 04:20 MCHC Differential 32.5 pg (28.0-36.0) 08/08/17 04:20 RDW 17.9 % (11.5-20.0) 08/08/17 04:20 Plt Count 156 Th/cmm (150-400) 08/08/17 04:20 MPV 11.3 fl 08/08/17 04:20 Neutrophils % 83.3 % (40.0-80.0) H 08/06/17 07:15 Band Neutrophils % 6 % (0-10) 08/08/17 04:20 Lymphocytes % 5.0 % (20.0-50.0) L 08/06/17 07:15 Monocytes % 8.7 % (2.0-10.0) 08/06/17 07:15 Eosinophils % 3.0 % (0.0-5.0) 08/06/17 07:15 Basophils % 0.0 % (0.0-2.0) 08/06/17 07:15 Neutrophils (Manual) 80 % (40-80) 08/08/17 04:20 Lymphocytes 10 % (20-50) L 08/08/17 04:20 Monocytes 4 % (2-10) 08/08/17 04:20 Eosinophils 5 % (0-5) 08/05/17 06:15 Basophils 1 % (0-3) 08/07/17 05:45 Hypochromia 1+ 08/02/17 15:37 Platelet Estimate ADEQUATE (NORMAL) 08/07/17 05:45 Platelet Morphology NORMAL (NORMAL) 08/02/17 15:37 Anisocytosis 1+ 08/07/17 05:45 Crenated Cell 2+ 08/02/17 15:37 RBC Morph Micro Appear ABNORMAL (NORMAL) 08/02/17 15:37 PT 12.9 SECONDS (9.5-11.5) H 08/02/17 13:58 INR 1.23 (0.5-1.4) 08/02/17 13:58 PTT (Actin FS) 33.6 SECONDS (26.0-38.0) 08/02/17 13:58 Specimen Source Arterial 08/03/17 08:58 Sample Site Right Radial 08/03/17 08:58 pH 7.42 (7.35-7.45) 08/03/17 08:58 pCO2 37.0 mmHg (35.0-45.0) 08/03/17 08:58 pO2 204.0 mmHg (80.0-100.0) H 08/03/17 08:58 HCO3 24.8 mEq/L (20.0-26.0) 08/03/17 08:58 Base Excess -0.2 mEq/L (-3.0-3.0) 08/03/17 08:58 O2 Saturation 100.0 % (92.0-100.0) 08/03/17 08:58 Rhett Test Positive 08/03/17 08:58 Vent Rate 12 08/03/17 08:58 Inspired O2 60 08/03/17 08:58 Tidal Volume 450 08/03/17 08:58 PEEP 5 08/03/17 08:58 Pressure (ins/psv/peep) NA 08/03/17 08:58 Critical Value LZHANG 08/03/17 08:58 Sodium 137 mEq/L (136-145) 08/08/17 04:20 Potassium 3.8 mEq/L (3.5-5.1) 08/08/17 04:20 Chloride 99 mEq/L (98-107) 08/08/17 04:20 Carbon Dioxide 27.2 mEq/L (21.0-31.0) 08/08/17 04:20 Anion Gap 14.6 (7.0-16.0) 08/08/17 04:20 BUN 38 mg/dL (7-25) H 08/08/17 04:20 Creatinine 2.6 mg/dL (0.6-1.2) H 08/08/17 04:20 Est GFR ( Amer) TNP 08/08/17 04:20 Est GFR (Non-Af Amer) TNP 08/08/17 04:20 BUN/Creatinine Ratio 14.6 08/08/17 04:20 Glucose 302 mg/dL (70-105) H 08/08/17 04:20 POC Glucose 364 MG/DL (70 - 105) H 08/08/17 11:15 Hemoglobin A1c % 7.7 % (4.0-6.0) H 08/02/17 15:37 Whole Bld Lactic Acid 1.97 mmol/L (0.60-1.99) 08/02/17 13:49 Calcium 8.4 mg/dL (8.6-10.3) L 08/08/17 04:20 Magnesium 3.0 mg/dL (1.9-2.7) H 08/05/17 06:15 Iron 10 ug/dL (27-139) L 08/02/17 13:56 TIBC 135 ug/dL (250-450) L 08/02/17 13:56 Iron Saturation 7 % (15-55) L 08/02/17 13:56 Unsaturated IBC 125 ug/dL (118-369) 08/02/17 13:56 Ferritin 588 ng/mL (15-150) H 08/02/17 13:56 Total Bilirubin 0.8 mg/dL (0.3-1.0) 08/08/17 04:20 Direct Bilirubin 0.09 mg/dL (0.0-0.2) 08/02/17 13:57 AST 33 U/L (13-39) 08/08/17 04:20 ALT 16 U/L (7-52) 08/08/17 04:20 Alkaline Phosphatase 98 U/L (34-104) 08/08/17 04:20 Troponin I 1.16 ng/mL (0.01-0.05) H* D 08/04/17 06:30 B-Natriuretic Peptide 372.0 pg/mL (5.0-100.0) H 08/05/17 06:15 Total Protein 5.9 gm/dL (6.0-8.3) L 08/08/17 04:20 Albumin 3.0 gm/dL (3.7-5.3) L 08/08/17 04:20 Globulin 2.9 gm/dL 08/08/17 04:20 Albumin/Globulin Ratio 1.0 (1.0-1.8) 08/08/17 04:20 Triglycerides 132 mg/dL (<150) 08/04/17 06:30 Cholesterol 55 mg/dL (<200) 08/04/17 06:30 LDL Cholesterol Direct 16 mg/dL (75-193) L 08/04/17 06:30 HDL Cholesterol 13 mg/dL (23-92) L 08/04/17 06:30 Amylase 12 U/L (29-103) L 08/02/17 13:43 Lipase 4 U/L (11-82) L 08/02/17 13:43 TSH 3.74 uIU/ml (0.34-5.60) 08/04/17 06:30 Stool Occult Blood POSITIVE (NEGATIVE) H 08/03/17 17:50 Random Vancomycin 19.3 ug/mL (5.0-40.0) 08/07/17 05:45 Blood Type A POSITIVE 08/02/17 20:54 Antibody Screen POSITIVE 08/02/17 20:54 Crossmatch See Detail 08/02/17 20:54 - Physical Exam Vitals and I&O: Vital Signs Temp 98.4 F 08/08/17 15:00 Pulse 119 08/08/17 15:57 Resp 16 08/08/17 15:00 BP 120/61 08/08/17 15:30 Pulse Ox 100 08/08/17 15:57 Intake & Output 08/07/17 08/08/17 08/08/17 18:59 06:59 18:59 Intake Total 519.692 341 2684.980 Balance 519.997 817 0983.980 Weight (lbs) 87.317 kg Intake: Intake, IV Amount 519.112 566 216.980 Fluconazole 200mg/100mL 100 200 mg In 100 ml @ 100 mls/hr IV Q24HR [facility] Rx#: [id number] Norepinephrine 8 mg In 199.112 516 116.980 Dextrose 5% 250 ml @ 0 MCG/MIN IV TITR PRN Rx#: [id number] Piperacillin Sodium/ 100 50 100 Tazobact 2.25 gm In Sodium Chloride 0.9% 50 ml @ 100 mls/hr IV Q6HR [facility] Rx#:[id number] Tube Feeding 600 Other 200 Other: # Bowel Movements 2 Stool Characteristics Soft Soft Soft Liquid Liquid Liquid Brown Brown Brown Black Black Active Medications: Current Medications Acetaminophen (Tylenol 650mg/20.3ml Suspension) 650 mg GT DAILY [facility] Stop: 10/03/17 08:59 Last Admin: 08/08/17 09:10 Dose: 650 mg Albuterol/Ipratropium (Duoneb Neb) 3 ml HHN Q4HRT [facility] Stop: 10/02/17 10:59 Last Admin: 08/08/17 15:57 Dose: 3 ml Ascorbic Acid (Vitamin C) 500 mg PO DAILY [facility] Stop: 10/03/17 08:59 Last Admin: 08/08/17 09:11 Dose: 500 mg Aspirin (Aspirin Chewable) 81 mg GT DAILY [facility] Stop: 10/03/17 08:59 Last Admin: 08/08/17 09:11 Dose: 81 mg Atorvastatin Calcium (Lipitor) 40 mg GT HS [facility] Stop: 10/03/17 20:59 Last Admin: 08/07/17 23:10 Dose: 40 mg Bisacodyl (Dulcolax 10 Mg Supp) 10 mg RC Q72HR PRN PRN Reason: IF MOM INEFFECTIVE Stop: 10/02/17 14:13 Chlorhexidine Gluconate (Peridex) 15 ml MM 0800,2000 [facility] Stop: 10/02/17 07:59 Last Admin: 08/08/17 09:57 Dose: 15 ml Cholecalciferol (Vitamin D3) 1,000 iu GT DAILY [facility] Stop: 10/03/17 08:59 Last Admin: 08/08/17 09:11 Dose: 1,000 iu Diltiazem HCl (Cardizem) 5 mg IVP Q4H PRN PRN Reason: INCREASE HEART RATE Stop: 10/01/17 21:59 Last Admin: 08/06/17 14:50 Dose: 5 mg Docusate Sodium (Colace) 100 mg PO DAILY [facility] Stop: 10/03/17 08:59 Last Admin: 08/08/17 09:11 Dose: 100 mg Dopamine HCl/Dextrose (Dopamine) 400 mg in 250 mls @ 0 mls/hr IV TITR PRN; Protocol; Per Protocol PRN Reason: BP MAINTENANCE (PER PROTOCOL) Stop: 10/02/17 07:47 Norepinephrine Bitartrate 8 mg (/ Dextrose) 258 mls @ 0 mls/hr IV TITR PRN; Protocol; 0 MCG/MIN PRN Reason: BP MAINTENANCE (PER PROTOCOL) Stop: 10/05/17 13:59 Last Titration: 08/08/17 11:53 Dose: 18 mcg/min, 34.83 mls/hr Diltiazem HCl 125 mg/ Dextrose 125 mls @ 0 mls/hr IV TITR [facility]; 0 MG/HR PRN Reason: Protocol Stop: 10/05/17 14:59 Last Titration: 08/06/17 23:54 Dose: 5 mg/hr, 5 mls/hr Piperacillin Sod/Tazobactam (Sod 2.25 gm/ Sodium Chloride) 50 mls @ 100 mls/hr IV Q6HR [facility] Stop: 10/05/17 17:59 Last Infusion: 08/08/17 11:39 Dose: Infused Insulin Aspart (Novolog Insulin Sliding Scale) 0 units SUBQ Q6HR [facility] PRN Reason: Protocol Stop: 10/02/17 00:00 Last Admin: 08/08/17 11:20 Dose: 10 units Lactobacillus Rhamnosus (Culturelle 15b) 1 each PO DAILY [facility] Stop: 10/07/17 08:59 Last Admin: 08/08/17 09:11 Dose: 1 each Lorazepam (Ativan) 1 mg IVP Q2HR PRN; Protocol PRN Reason: Restlessness Stop: 10/01/17 21:18 Last Admin: 08/08/17 15:54 Dose: 1 mg Magnesium Hydroxide (Milk Of Magnesia) 30 ml GT Q72H PRN PRN Reason: NO BM FOR THREE DAYS Stop: 10/02/17 14:13 Mirtazapine (Remeron) 15 mg GT HS [facility] PRN Reason: Protocol Stop: 10/02/17 20:59 Last Admin: 08/07/17 23:10 Dose: 15 mg Miscellaneous (Clinical Monitoring) 1 ea MC PRN PRN PRN Reason: RENAL Stop: 10/05/17 11:28 Miscellaneous (Zosyn Iv Per Pharmacy) 1 ea MC PRN PRN PRN Reason: PROTOCOL Stop: 10/05/17 15:59 Miscellaneous (Probiotic Screen) 1 ea MC PRN PRN PRN Reason: PROTOCOL Stop: 10/06/17 14:14 Multivitamins/Vitamin C (Theragran) 1 tab PO DAILY [facility] Stop: 10/03/17 08:59 Last Admin: 08/08/17 09:11 Dose: 1 tab Mupirocin (Bactroban Oint) 1 appl NS BID [facility] Stop: 08/09/17 17:01 Last Admin: 08/08/17 09:56 Dose: 1 appl Ondansetron HCl (Zofran Odt) 4 mg PO Q6HR PRN PRN Reason: Nausea / Vomiting Stop: 10/02/17 14:13 Pantoprazole Sodium (Protonix) 40 mg IVP DAILY [facility] Stop: 10/02/17 08:59 Last Admin: 08/08/17 09:11 Dose: 40 mg Simethicone (Mylicon) 80 mg GT Q6H PRN PRN Reason: GAS PAIN Stop: 10/02/17 14:13 Sodium Phosphate (Fleet Enema) 118 ml RC PRN PRN PRN Reason: IF MOM/DULCOLAX INEFFECTIVE Stop: 10/02/17 14:13 Temazepam (Restoril) 15 mg GT HS PRN; Protocol PRN Reason: Insomnia Stop: 10/02/17 14:13 Last Admin: 08/06/17 00:26 Dose: 15 mg Zinc Sulfate (Zinc Sulfate) 220 mg GT DAILY [facility] Stop: 10/03/17 08:59 Last Admin: 08/08/17 09:11 Dose: 220 mg General: Alert, No acute distress (scattered rhonchi) HEENT: Atraumatic, PERRLA, EOMI, Mucous membr. moist/pink Neck: Supple, Other (TRACH) Cardiovascular: Regular rate Lungs: Other (few rhonchi) Abdomen: Bowel sounds, Soft, Other (INTACT GT) Extremities: Edema (upper wxtrmities), Other (upper ext) Neurological: Sensation intact Skin: no Rash Psych/Mental Status: Mood NL - Procedures Procedures: Procedures Procedure Code Date BLOOD TRANSFUSION SERVICE 31938 08/02/17 EXCISION OF STOMACH, ENDO, DIAGN [id number] 07/10/17 INSPECTION OF LOWER INTESTINAL TRACT, ENDO [id number] 07/10/17 PERFORMANCE OF URINARY FILTRATION, <6 HRS/DAY [id number] 07/10/17 RESPIRATORY VENTILATION, GREATER THAN 96 CONSECUTIVE HOURS [id number] 08/02/17 TRANSFUSE NONAUT RED BLOOD CELLS IN PERIPH VEIN, PERC 72794D8 08/02/17 Assessment/Plan - Assessment Assessment: 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/L UE Edema, Cellulitis Shock Sepsis RF on Vent Acute on Chronic Decomp CHF G (-) Septicemia - Plan Plan: Lab - Result Diagrams 08/04/17 06:30 08/04/17 06:30 Current Medications Acetaminophen (Tylenol 650mg/20.3ml Suspension) 650 mg GT DAILY [facility] Stop: 10/03/17 08:59 Last Admin: 08/04/17 09:18 Dose: 650 mg Albuterol/Ipratropium (Duoneb Neb) 3 ml HHN Q4HRT [facility] Stop: 10/02/17 10:59 Last Admin: 08/04/17 11:25 Dose: 3 ml Ascorbic Acid (Vitamin C) 500 mg PO DAILY [facility] Stop: 10/03/17 08:59 Last Admin: 08/04/17 09:18 Dose: 500 mg Aspirin (Aspirin Chewable) 81 mg GT DAILY [facility] Stop: 10/03/17 08:59 Last Admin: 08/04/17 09:18 Dose: 81 mg Atorvastatin Calcium (Lipitor) 40 mg GT HS [facility] PRN Reason: Protocol Stop: 10/02/17 20:59 Last Admin: 08/03/17 20:19 Dose: 40 mg Bisacodyl (Dulcolax 10 Mg Supp) 10 mg RC Q72HR PRN PRN Reason: IF MOM INEFFECTIVE Stop: 10/02/17 14:13 Bisacodyl (Dulcolax 10 Mg Supp) 10 mg RC PRN PRN PRN Reason: IF MOM INEFFECTIVE Stop: 10/02/17 14:13 Chlorhexidine Gluconate (Peridex) 15 ml MM 0800,2000 [facility] Stop: 10/02/17 07:59 Last Admin: 08/04/17 08:00 Dose: 15 ml Cholecalciferol (Vitamin D3) 1,000 iu GT DAILY [facility] Stop: 10/03/17 08:59 Last Admin: 08/04/17 09:18 Dose: 1,000 iu Diltiazem HCl (Cardizem) 5 mg IVP Q4H PRN PRN Reason: INCREASE HEART RATE Stop: 10/01/17 21:59 Last Admin: 08/03/17 01:38 Dose: 5 mg Docusate Sodium (Colace) 100 mg PO DAILY [facility] Stop: 10/03/17 08:59 Last Admin: 08/04/17 09:18 Dose: 100 mg Heparin Sodium (Porcine) (Heparin) 5,000 units HD UD [facility] Stop: 08/05/17 08:59 Last Admin: 08/04/17 09:19 Dose: Not Given Fluconazole (Diflucan) 200 mg in 100 mls @ 100 mls/hr IV Q24HR [facility] Stop: 10/02/17 14:59 Last Infusion: 08/03/17 15:40 Dose: Infused Meropenem 500 mg/ Sodium (Chloride) 100 mls @ 100 mls/hr IV Q24H [facility] Stop: 10/02/17 12:59 Last Admin: 08/04/17 13:17 Dose: 100 mls/hr Dopamine HCl/Dextrose (Dopamine) 400 mg in 250 mls @ 0 mls/hr IV TITR PRN; Protocol; Per Protocol PRN Reason: BP MAINTENANCE (PER PROTOCOL) Stop: 10/02/17 07:47 Norepinephrine Bitartrate 4 mg (/ Dextrose) 254 mls @ 0 mls/hr IV TITR PRN; Protocol; Per Protocol PRN Reason: BP MAINTENANCE (PER PROTOCOL) Stop: 10/02/17 08:31 Last Admin: 08/03/17 23:47 Dose: 4 mcg/min, 15.24 mls/hr Colistimethate Sodium 80 mg/ (Sodium Chloride) 100 mls @ 100 mls/hr IV Q36H [facility] Stop: 10/02/17 20:59 Last Infusion: 08/03/17 21:20 Dose: Infused Insulin Aspart (Novolog Insulin Sliding Scale) 0 units SUBQ Q6HR [facility] PRN Reason: Protocol Stop: 10/02/17 00:00 Last Admin: 08/04/17 11:30 Dose: 6 units Lorazepam (Ativan) 1 mg IVP Q2HR PRN; Protocol PRN Reason: Restlessness Stop: 10/01/17 21:18 Last Admin: 08/04/17 01:05 Dose: 1 mg Magnesium Hydroxide (Milk Of Magnesia) 30 ml GT Q72H PRN PRN Reason: NO BM FOR THREE DAYS Stop: 10/02/17 14:13 Mirtazapine (Remeron) 15 mg GT HS [facility] PRN Reason: Protocol Stop: 10/02/17 20:59 Last Admin: 08/03/17 20:19 Dose: 15 mg Miscellaneous (Vancomycin Iv Per Pharmacy) 1 ea MC PRN PRN PRN Reason: PROTOCOL Stop: 10/01/17 20:42 Miscellaneous (Zosyn Iv Per Pharmacy) 1 ea MC PRN PRN PRN Reason: PROTOCOL Stop: 10/01/17 20:42 Multivitamins/Vitamin C (Theragran) 1 tab PO DAILY [facility] Stop: 10/03/17 08:59 Last Admin: 08/04/17 09:18 Dose: 1 tab Ondansetron HCl (Zofran Odt) 4 mg PO Q6HR PRN PRN Reason: Nausea / Vomiting Stop: 10/02/17 14:13 Pantoprazole Sodium (Protonix) 40 mg IVP DAILY [facility] Stop: 10/02/17 08:59 Last Admin: 08/04/17 09:18 Dose: 40 mg Simethicone (Mylicon) 80 mg GT Q6H PRN PRN Reason: GAS PAIN Stop: 10/02/17 14:13 Sodium Phosphate (Fleet Enema) 118 ml RC PRN PRN PRN Reason: IF MOM/DULCOLAX INEFFECTIVE Stop: 10/02/17 14:13 Temazepam (Restoril) 15 mg GT HS PRN; Protocol PRN Reason: Insomnia Stop: 10/02/17 14:13 Last Admin: 08/03/17 20:19 Dose: 15 mg Zinc Sulfate (Zinc Sulfate) 220 mg GT DAILY [facility] Stop: 10/03/17 08:59 Last Admin: 08/04/17 09:18 Dose: 220 scheduled for dialysis tomorrow Venous & Arterial duplex scans were negative for DVT or clots CXR still showed b/l effusions Lab - Result Diagrams 08/08/17 04:20 08/08/17 04:20 Nutritional Asmnt/Malnutr-PDOC - Dietary Evaluation Malnutrition Findings (Please click <Entered> for more info): Nutritional Asmnt/Malnutrition Start: 08/05/17 15: 53 Text: Status: Complete Freq: Document 08/05/17 15:53 HEIDY (Rec: 08/05/17 16:19 LCMAX [id number]) Nutritional Asmnt/Malnutrition Patient General Information Nutritional Screening High Risk Diagnosis sepsis, respiratory failure, ESRD Pertinent Medical Hx/Surgical Hx ESRD on HD, respiratory failure with tracheostomy, dysphagia, a fib, anemia, HTN, GERD Subjective Information Pt on vent, not able to interview. Pt was on TF Novosource Renal 30ml/hr continuous, NPO today for surgery. Pt has dialysis ordred per nurse note. Current Diet Order/ Nutrition Support NPO on 08/05 Pertinent Medications vit C, vit D3, colace, novolog , remeron, theragran, protonix , zinc Pertinent Labs 08/05 Na 134, K 3.6, Cl 102, BUN 77, Cr 4.2, Glucose 216, POC 224-233 08/02 A1c 7.7 Nutritional Hx/Data Height 1.6 m Height (Calculated Centimeters) 160.0 Current Weight (lbs) 87.543 kg Weight (Calculated Kilograms) 87.5 Weight (Calculated Grams) 75753.3 Likely Body Weight 115 Body Mass Index (BMI) 34.2 Weight Status Obese GI Symptoms GI Symptoms None Last BM 08/04 Difficult in: None Skin Integrity/Comment: reddened to left/right inner thigh, right lateral index finger, right/left arm; skin tear to left abdominal fold; pressure area to coccy/sacral Estimated Nutritional Goals BEE in Kcals: Adj wt of IBW Calories/Kcals/Kg 30-35 adj wt 61kg Kcals Calculated [id number] Protein: Adj wt of IBW Protein g/k.2-1.4 Protein Calculated 73-85 Fluid: ml 1830-2135ml (1ml/kcal) Nutritional Problem 1. Problem Problem altered nutrition related lab values Etiology hx of ESRD, endocrine dysfunction Signs/Symptoms: BUN 77, Cr 4.2, Glucose 216, POC 224-233, A1c 7.7 Malnutrition Alert Protein-Calorie Malnutrition N/A Is there a minimum of two criteria No selected? Query Text:Check all the applicable criteria. A minimum of two criteria are recommended for diagnosis of either severe or non-severe malnutrition. Intervention/Recommendation Comments 1. Resume TF Novosource Renal 30ml/hr continuous as ordered. increase to goal rate of 40ml /hr continuous as tolerated. This will provide 1920kcal, 87g protein and 688ml free water, meeting 100% of nutritional needs 2. Monitor TF rate, tolerance, wt weekly, skin integrity and labs 3. F/U as high risk in 2-3 days, 08/07-08/08 Expected Outcomes/Goals Expected Outcomes/Goals 1. Pt to meet at least 75% of nutritional needs via nutrition support with tolerance 2. Wt stability, skin to remain intact, labs to approach WNL.
--- NOTE | 2017-08-08 16:32 | General Progress Note ---
Objective - Results Result Diagrams: 08/08/17 04:20 08/08/17 04:20 Recent Labs: Laboratory Last Values WBC 15.6 Th/cmm (4.8-10.8) H 08/08/17 04:20 RBC 3.37 Mil/cmm (3.80-5.20) L 08/08/17 04:20 Hgb 10.0 gm/dL (12-16) L 08/08/17 04:20 Hct 30.6 % (41.0-60) L 08/08/17 04:20 MCV 90.7 fl (81-100) 08/08/17 04:20 MCH 29.5 pg (27.0-31.0) 08/08/17 04:20 MCHC Differential 32.5 pg (28.0-36.0) 08/08/17 04:20 RDW 17.9 % (11.5-20.0) 08/08/17 04:20 Plt Count 156 Th/cmm (150-400) 08/08/17 04:20 MPV 11.3 fl 08/08/17 04:20 Neutrophils % 83.3 % (40.0-80.0) H 08/06/17 07:15 Band Neutrophils % 6 % (0-10) 08/08/17 04:20 Lymphocytes % 5.0 % (20.0-50.0) L 08/06/17 07:15 Monocytes % 8.7 % (2.0-10.0) 08/06/17 07:15 Eosinophils % 3.0 % (0.0-5.0) 08/06/17 07:15 Basophils % 0.0 % (0.0-2.0) 08/06/17 07:15 Neutrophils (Manual) 80 % (40-80) 08/08/17 04:20 Lymphocytes 10 % (20-50) L 08/08/17 04:20 Monocytes 4 % (2-10) 08/08/17 04:20 Eosinophils 5 % (0-5) 08/05/17 06:15 Basophils 1 % (0-3) 08/07/17 05:45 Hypochromia 1+ 08/02/17 15:37 Platelet Estimate ADEQUATE (NORMAL) 08/07/17 05:45 Platelet Morphology NORMAL (NORMAL) 08/02/17 15:37 Anisocytosis 1+ 03/01/18 05:45 Crenated Cell 2+ 08/02/17 15:37 RBC Morph Micro Appear ABNORMAL (NORMAL) 08/02/17 15:37 PT 12.9 SECONDS (9.5-11.5) H 08/02/17 13:58 INR 1.23 (0.5-1.4) 08/02/17 13:58 PTT (Actin FS) 33.6 SECONDS (26.0-38.0) 08/02/17 13:58 Specimen Source Arterial 08/03/17 08:58 Sample Site Right Radial 08/03/17 08:58 pH 7.42 (7.35-7.45) 08/03/17 08:58 pCO2 37.0 mmHg (35.0-45.0) 08/03/17 08:58 pO2 204.0 mmHg (80.0-100.0) H 08/03/17 08:58 HCO3 24.8 mEq/L (20.0-26.0) 08/03/17 08:58 Base Excess -0.2 mEq/L (-3.0-3.0) 08/03/17 08:58 O2 Saturation 100.0 % (92.0-100.0) 08/03/17 08:58 Rhett Test Positive 08/03/17 08:58 Vent Rate 12 08/03/17 08:58 Inspired O2 60 08/03/17 08:58 Tidal Volume 450 08/03/17 08:58 PEEP 5 08/03/17 08:58 Pressure (ins/psv/peep) NA 08/03/17 08:58 Critical Value LZHANG 08/03/17 08:58 Sodium 137 mEq/L (136-145) 08/08/17 04:20 Potassium 3.8 mEq/L (3.5-5.1) 08/08/17 04:20 Chloride 99 mEq/L (98-107) 08/08/17 04:20 Carbon Dioxide 27.2 mEq/L (21.0-31.0) 08/08/17 04:20 Anion Gap 14.6 (7.0-16.0) 08/08/17 04:20 BUN 38 mg/dL (7-25) H 08/08/17 04:20 Creatinine 2.6 mg/dL (0.6-1.2) H 08/08/17 04:20 Est GFR ( Amer) TNP 08/08/17 04:20 Est GFR (Non-Af Amer) TNP 08/08/17 04:20 BUN/Creatinine Ratio 14.6 08/08/17 04:20 Glucose 302 mg/dL (70-105) H 08/08/17 04:20 POC Glucose 364 MG/DL (70 - 105) H 08/08/17 11:15 Hemoglobin A1c % 7.7 % (4.0-6.0) H 08/02/17 15:37 Whole Bld Lactic Acid 1.97 mmol/L (0.60-1.99) 08/02/17 13:49 Calcium 8.4 mg/dL (8.6-10.3) L 08/08/17 04:20 Magnesium 3.0 mg/dL (1.9-2.7) H 08/05/17 06:15 Iron 10 ug/dL (27-139) L 08/02/17 13:56 TIBC 135 ug/dL (250-450) L 08/02/17 13:56 Iron Saturation 7 % (15-55) L 08/02/17 13:56 Unsaturated IBC 125 ug/dL (118-369) 08/02/17 13:56 Ferritin 588 ng/mL (15-150) H 08/02/17 13:56 Total Bilirubin 0.8 mg/dL (0.3-1.0) 08/08/17 04:20 Direct Bilirubin 0.09 mg/dL (0.0-0.2) 08/02/17 13:57 AST 33 U/L (13-39) 08/08/17 04:20 ALT 16 U/L (7-52) 08/08/17 04:20 Alkaline Phosphatase 98 U/L (34-104) 08/08/17 04:20 Troponin I 1.16 ng/mL (0.01-0.05) H* D 08/04/17 06:30 B-Natriuretic Peptide 372.0 pg/mL (5.0-100.0) H 08/05/17 06:15 Total Protein 5.9 gm/dL (6.0-8.3) L 08/08/17 04:20 Albumin 3.0 gm/dL (3.7-5.3) L 08/08/17 04:20 Globulin 2.9 gm/dL 08/08/17 04:20 Albumin/Globulin Ratio 1.0 (1.0-1.8) 08/08/17 04:20 Triglycerides 132 mg/dL (<150) 08/04/17 06:30 Cholesterol 55 mg/dL (<200) 08/04/17 06:30 LDL Cholesterol Direct 16 mg/dL (75-193) L 08/04/17 06:30 HDL Cholesterol 13 mg/dL (23-92) L 08/04/17 06:30 Amylase 12 U/L (29-103) L 08/02/17 13:43 Lipase 4 U/L (11-82) L 08/02/17 13:43 TSH 3.74 uIU/ml (0.34-5.60) 08/04/17 06:30 Stool Occult Blood POSITIVE (NEGATIVE) H 08/03/17 17:50 Random Vancomycin 19.3 ug/mL (5.0-40.0) 08/07/17 05:45 Blood Type A POSITIVE 08/02/17 20:54 Antibody Screen POSITIVE 08/02/17 20:54 Crossmatch See Detail 08/02/17 20:54 - Physical Exam Vitals and I&O: Vital Signs Temp 98.4 F 08/08/17 15:00 Pulse 119 08/08/17 15:57 Resp 16 08/08/17 15:00 BP 120/61 08/08/17 15:30 Pulse Ox 100 08/08/17 15:57 Intake & Output 08/07/17 08/08/17 08/08/17 18:59 06:59 18:59 Intake Total 519.553 151 1590.980 Balance 519.558 170 0175.980 Weight (lbs) 87.317 kg Intake: Intake, IV Amount 519.112 566 216.980 Fluconazole 200mg/100mL 100 200 mg In 100 ml @ 100 mls/hr IV Q24HR [facility] Rx#: [id number] Norepinephrine 8 mg In 199.112 516 116.980 Dextrose 5% 250 ml @ 0 MCG/MIN IV TITR PRN Rx#: [id number] Piperacillin Sodium/ 100 50 100 Tazobact 2.25 gm In Sodium Chloride 0.9% 50 ml @ 100 mls/hr IV Q6HR [facility] Rx#:[id number] Tube Feeding 600 Other 200 Other: # Bowel Movements 2 Stool Characteristics Soft Soft Soft Liquid Liquid Liquid Brown Brown Brown Black Black Active Medications: Current Medications Acetaminophen (Tylenol 650mg/20.3ml Suspension) 650 mg GT DAILY [facility] Stop: 10/03/17 08:59 Last Admin: 08/08/17 09:10 Dose: 650 mg Albuterol/Ipratropium (Duoneb Neb) 3 ml HHN Q4HRT [facility] Stop: 10/02/17 10:59 Last Admin: 08/08/17 15:57 Dose: 3 ml Ascorbic Acid (Vitamin C) 500 mg PO DAILY [facility] Stop: 10/03/17 08:59 Last Admin: 08/08/17 09:11 Dose: 500 mg Aspirin (Aspirin Chewable) 81 mg GT DAILY [facility] Stop: 10/03/17 08:59 Last Admin: 08/08/17 09:11 Dose: 81 mg Atorvastatin Calcium (Lipitor) 40 mg GT HS [facility] Stop: 10/03/17 20:59 Last Admin: 08/07/17 23:10 Dose: 40 mg Bisacodyl (Dulcolax 10 Mg Supp) 10 mg RC Q72HR PRN PRN Reason: IF MOM INEFFECTIVE Stop: 10/02/17 14:13 Chlorhexidine Gluconate (Peridex) 15 ml MM 0800,1999 [facility] Stop: 10/02/17 07:59 Last Admin: 08/08/17 09:57 Dose: 15 ml Cholecalciferol (Vitamin D3) 1,000 iu GT DAILY [facility] Stop: 10/03/17 08:59 Last Admin: 08/08/17 09:11 Dose: 1,000 iu Diltiazem HCl (Cardizem) 5 mg IVP Q4H PRN PRN Reason: INCREASE HEART RATE Stop: 10/01/17 21:59 Last Admin: 08/06/17 14:50 Dose: 5 mg Docusate Sodium (Colace) 100 mg PO DAILY [facility] Stop: 10/03/17 08:59 Last Admin: 08/08/17 09:11 Dose: 100 mg Dopamine HCl/Dextrose (Dopamine) 400 mg in 250 mls @ 0 mls/hr IV TITR PRN; Protocol; Per Protocol PRN Reason: BP MAINTENANCE (PER PROTOCOL) Stop: 10/02/17 07:47 Norepinephrine Bitartrate 8 mg (/ Dextrose) 258 mls @ 0 mls/hr IV TITR PRN; Protocol; 0 MCG/MIN PRN Reason: BP MAINTENANCE (PER PROTOCOL) Stop: 10/05/17 13:59 Last Titration: 08/08/17 11:53 Dose: 18 mcg/min, 34.83 mls/hr Diltiazem HCl 125 mg/ Dextrose 125 mls @ 0 mls/hr IV TITR [facility]; 0 MG/HR PRN Reason: Protocol Stop: 10/05/17 14:59 Last Titration: 08/06/17 23:54 Dose: 5 mg/hr, 5 mls/hr Piperacillin Sod/Tazobactam (Sod 2.25 gm/ Sodium Chloride) 50 mls @ 100 mls/hr IV Q6HR [facility] Stop: 10/05/17 17:59 Last Infusion: 08/08/17 11:39 Dose: Infused Insulin Aspart (Novolog Insulin Sliding Scale) 0 units SUBQ Q6HR [facility] PRN Reason: Protocol Stop: 10/02/17 00:00 Last Admin: 08/08/17 11:20 Dose: 10 units Lactobacillus Rhamnosus (Culturelle 15b) 1 each PO DAILY [facility] Stop: 10/07/17 08:59 Last Admin: 08/08/17 09:11 Dose: 1 each Lorazepam (Ativan) 1 mg IVP Q2HR PRN; Protocol PRN Reason: Restlessness Stop: 10/01/17 21:18 Last Admin: 08/08/17 15:54 Dose: 1 mg Magnesium Hydroxide (Milk Of Magnesia) 30 ml GT Q72H PRN PRN Reason: NO BM FOR THREE DAYS Stop: 10/02/17 14:13 Mirtazapine (Remeron) 15 mg GT HS [facility] PRN Reason: Protocol Stop: 10/02/17 20:59 Last Admin: 08/07/17 23:10 Dose: 15 mg Miscellaneous (Clinical Monitoring) 1 ea MC PRN PRN PRN Reason: RENAL Stop: 10/05/17 11:28 Miscellaneous (Zosyn Iv Per Pharmacy) 1 ea MC PRN PRN PRN Reason: PROTOCOL Stop: 10/05/17 15:59 Miscellaneous (Probiotic Screen) 1 ea MC PRN PRN PRN Reason: PROTOCOL Stop: 10/06/17 14:14 Multivitamins/Vitamin C (Theragran) 1 tab PO DAILY [facility] Stop: 10/03/17 08:59 Last Admin: 08/08/17 09:11 Dose: 1 tab Mupirocin (Bactroban Oint) 1 appl NS BID [facility] Stop: 08/09/17 17:01 Last Admin: 08/08/17 09:56 Dose: 1 appl Ondansetron HCl (Zofran Odt) 4 mg PO Q6HR PRN PRN Reason: Nausea / Vomiting Stop: 10/02/17 14:13 Pantoprazole Sodium (Protonix) 40 mg IVP DAILY [facility] Stop: 10/02/17 08:59 Last Admin: 08/08/17 09:11 Dose: 40 mg Simethicone (Mylicon) 80 mg GT Q6H PRN PRN Reason: GAS PAIN Stop: 10/02/17 14:13 Sodium Phosphate (Fleet Enema) 118 ml RC PRN PRN PRN Reason: IF MOM/DULCOLAX INEFFECTIVE Stop: 10/02/17 14:13 Temazepam (Restoril) 15 mg GT HS PRN; Protocol PRN Reason: Insomnia Stop: 10/02/17 14:13 Last Admin: 08/06/17 00:26 Dose: 15 mg Zinc Sulfate (Zinc Sulfate) 220 mg GT DAILY [facility] Stop: 10/03/17 08:59 Last Admin: 08/08/17 09:11 Dose: 220 mg General: Alert, No acute distress (scattered rhonchi) HEENT: Atraumatic, PERRLA, EOMI, Mucous membr. moist/pink Neck: Supple, Other (TRACH) Cardiovascular: Regular rate Lungs: Other (few rhonchi) Abdomen: Bowel sounds, Soft, Other (INTACT GT) Extremities: Edema (upper wxtrmities), Other (upper ext) Neurological: Sensation intact Skin: no Rash Psych/Mental Status: Mood NL - Procedures Procedures: Procedures Procedure Code Date BLOOD TRANSFUSION SERVICE 04181 08/02/17 EXCISION OF STOMACH, ENDO, DIAGN [id number] 07/10/17 INSPECTION OF LOWER INTESTINAL TRACT, ENDO [id number] 07/10/17 PERFORMANCE OF URINARY FILTRATION, <6 HRS/DAY [id number] 07/10/17 RESPIRATORY VENTILATION, GREATER THAN 96 CONSECUTIVE HOURS [id number] 08/02/17 TRANSFUSE NONAUT RED BLOOD CELLS IN PERIPH VEIN, PERC [id number] 08/02/17 Nutritional Asmnt/Malnutr-PDOC - Dietary Evaluation Malnutrition Findings (Please click <Entered> for more info): Nutritional Asmnt/Malnutrition Start: 08/05/17 15: 53 Text: Status: Complete Freq: Document 08/05/17 15:53 HEIDY (Rec: 08/05/17 16:19 LCNAVING [id number]) Nutritional Asmnt/Malnutrition Patient General Information Nutritional Screening High Risk Diagnosis sepsis, respiratory failure, ESRD Pertinent Medical Hx/Surgical Hx ESRD on HD, respiratory failure with tracheostomy, dysphagia, a fib, anemia, HTN, GERD Subjective Information Pt on vent, not able to interview. Pt was on TF Novosource Renal 30ml/hr continuous, NPO today for surgery. Pt has dialysis ordred per nurse note. Current Diet Order/ Nutrition Support NPO on 08/05 Pertinent Medications vit C, vit D3, colace, novolog , remeron, theragran, protonix , zinc Pertinent Labs 08/05 Na 134, K 3.6, Cl 102, BUN 77, Cr 4.2, Glucose 216, POC 224-233 08/02 A1c 7.7 Nutritional Hx/Data Height 1.6 m Height (Calculated Centimeters) 160.0 Current Weight (lbs) 87.543 kg Weight (Calculated Kilograms) 87.5 Weight (Calculated Grams) [address].3 [place] Body Weight 115 Body Mass Index (BMI) 34.2 Weight Status Obese GI Symptoms GI Symptoms None Last BM 08/04 Difficult in: None Skin Integrity/Comment: reddened to left/right inner thigh, right lateral index finger, right/left arm; skin tear to left abdominal fold; pressure area to coccy/sacral Estimated Nutritional Goals BEE in Kcals: Adj wt of IBW Calories/Kcals/Kg 30-35 adj wt 61kg Kcals Calculated 0092-1893 Protein: Adj wt of IBW Protein g/k.2-1.4 Protein Calculated 73-85 Fluid: ml 1830-2135ml (1ml/kcal) Nutritional Problem 1. Problem Problem altered nutrition related lab values Etiology hx of ESRD, endocrine dysfunction Signs/Symptoms: BUN 77, Cr 4.2, Glucose 216, POC 224-233, A1c 7.7 Malnutrition Alert Protein-Calorie Malnutrition N/A Is there a minimum of two criteria No selected? Query Text:Check all the applicable criteria. A minimum of two criteria are recommended for diagnosis of either severe or non-severe malnutrition. Intervention/Recommendation Comments 1. Resume TF Novosource Renal 30ml/hr continuous as ordered. increase to goal rate of 40ml /hr continuous as tolerated. This will provide 1920kcal, 87g protein and 688ml free water, meeting 100% of nutritional needs 2. Monitor TF rate, tolerance, wt weekly, skin integrity and labs 3. F/U as high risk in 2-3 days, 3-3/ Expected Outcomes/Goals Expected Outcomes/Goals 1. Pt to meet at least 75% of nutritional needs via nutrition support with tolerance 2. Wt stability, skin to remain intact, labs to approach WNL.
[2017-08-09] MEDS: INSULIN ASPART SLIDING SCALE 100 UNITS/ML UNIT SUBQ SCH ×4 (00:09→17:35)
[2017-08-09] MEDS: Albuterol/Ipratropium Neb 3 ML AERS HHN SCH ×5 (03:25→18:32)
[2017-08-09] MEDS: Piperacillin/Tazobact 2.25 gm in 0.9% NS 50 ML IV SCH ×3 (05:23→18:49)
[2017-08-09 07:09] LABS: HEMOGLOBIN 8.5 gm/dL (12-16); MEAN CELL VOLUME 94.5 fl (81-100); MEAN CORPUSCULAR HEMOGLOBIN 31.7 pg (27.0-31.0); MEAN CORPUSCULAR HGB CONC 33.5 pg (28.0-36.0); MEAN PLATELET VOLUME 11.8 fl; RED BLOOD COUNT 2.69 Mil/cmm (3.80-5.20); RED CELL DISTRIBUTION WIDTH 17.7 % (11.5-20.0)
[2017-08-09 07:20] LABS: HEMATOCRIT 25.5 % (41.0-60); MANUAL DIFF REQUIRED? YES; PLATELET COUNT 233 Th/cmm (150-400); WHITE BLOOD COUNT 13.1 Th/cmm (4.8-10.8)
[2017-08-09 07:41] LABS: ALB/GLOB RATIO 0.8 (1.0-1.8); ALBUMIN 2.9 gm/dL (3.7-5.3); ALKALINE PHOSPHATASE 91 U/L (34-104); BILIRUBIN,TOTAL 0.6 mg/dL (0.3-1.0); BUN - UREA NITROGEN 49 mg/dL (7-25); CALCIUM SERUM 8.4 mg/dL (8.6-10.3); CARBON DIOXIDE 27.9 mEq/L (21.0-31.0); CHLORIDE 96 mEq/L (98-107); CREATININE - SERUM 3.2 mg/dL (0.6-1.2); GLUCOSE 333 mg/dL (70-105); SGOT 21 U/L (13-39); SGPT/ALT 12 U/L (7-52); SODIUM SERUM 133 mEq/L (136-145); TOTAL PROTEIN,SERUM 6.4 gm/dL (6.0-8.3)
[2017-08-09 07:53] LABS: POTASSIUM SERUM 2.9 mEq/L (3.5-5.1)
--- NOTE | 2017-08-09 08:22 | GI Progress Note ---
Subjective - Review of Systems Subjective: NO GI BLEEDING PER STAFF HAS BROWN YELLOW STOOL Objective - Results Result Diagrams: 08/09/17 06:34 08/09/17 06:34 Recent Labs: Laboratory Last Values WBC 13.1 Th/cmm (4.8-10.8) H 08/09/17 06:34 RBC 2.69 Mil/cmm (3.80-5.20) L 08/09/17 06:34 Hgb 8.5 gm/dL (12-16) L 08/09/17 06:34 Hct 25.5 % (41.0-60) L D 08/09/17 06:34 MCV 94.5 fl (81-100) 08/09/17 06:34 MCH 31.7 pg (27.0-31.0) H 08/09/17 06:34 MCHC Differential 33.5 pg (28.0-36.0) 08/09/17 06:34 RDW 17.7 % (11.5-20.0) 08/09/17 06:34 Plt Count 233 Th/cmm (150-400) D 08/09/17 06:34 MPV 11.8 fl 08/09/17 06:34 Neutrophils % 83.3 % (40.0-80.0) H 08/06/17 07:15 Band Neutrophils % 6 % (0-10) 08/08/17 04:20 Lymphocytes % 5.0 % (20.0-50.0) L 08/06/17 07:15 Monocytes % 8.7 % (2.0-10.0) 08/06/17 07:15 Eosinophils % 3.0 % (0.0-5.0) 08/06/17 07:15 Basophils % 0.0 % (0.0-2.0) 08/06/17 07:15 Neutrophils (Manual) 80 % (40-80) 08/08/17 04:20 Lymphocytes 10 % (20-50) L 08/08/17 04:20 Monocytes 4 % (2-10) 08/08/17 04:20 Eosinophils 5 % (0-5) 08/05/17 06:15 Basophils 1 % (0-3) 08/07/17 05:45 Hypochromia 1+ 08/02/17 15:37 Platelet Estimate ADEQUATE (NORMAL) 08/07/17 05:45 Platelet Morphology NORMAL (NORMAL) 08/02/17 15:37 Anisocytosis 1+ 08/07/17 05:45 Crenated Cell 2+ 08/02/17 15:37 RBC Morph Micro Appear ABNORMAL (NORMAL) 08/02/17 15:37 PT 12.9 SECONDS (9.5-11.5) H 08/02/17 13:58 INR 1.23 (0.5-1.4) 08/02/17 13:58 PTT (Actin FS) 33.6 SECONDS (26.0-38.0) 08/02/17 13:58 Specimen Source Arterial 08/03/17 08:58 Sample Site Right Radial 08/03/17 08:58 pH 7.42 (7.35-7.45) 08/03/17 08:58 pCO2 37.0 mmHg (35.0-45.0) 08/03/17 08:58 pO2 204.0 mmHg (80.0-100.0) H 08/03/17 08:58 HCO3 24.8 mEq/L (20.0-26.0) 08/03/17 08:58 Base Excess -0.2 mEq/L (-3.0-3.0) 08/03/17 08:58 O2 Saturation 100.0 % (92.0-100.0) 08/03/17 08:58 Rhett Test Positive 08/03/17 08:58 Vent Rate 12 08/03/17 08:58 Inspired O2 60 08/03/17 08:58 Tidal Volume 450 08/03/17 08:58 PEEP 5 08/03/17 08:58 Pressure (ins/psv/peep) NA 08/03/17 08:58 Critical Value LZHANG 08/03/17 08:58 Sodium 133 mEq/L (136-145) L 08/09/17 06:34 Potassium 2.9 mEq/L (3.5-5.1) L* 08/09/17 06:34 Chloride 96 mEq/L (98-107) L 08/09/17 06:34 Carbon Dioxide 27.9 mEq/L (21.0-31.0) 08/09/17 06:34 Anion Gap 12.0 (7.0-16.0) 08/09/17 06:34 BUN 49 mg/dL (7-25) H 08/09/17 06:34 Creatinine 3.2 mg/dL (0.6-1.2) H 08/09/17 06:34 Est GFR ( Amer) TNP 08/09/17 06:34 Est GFR (Non-Af Amer) TNP 08/09/17 06:34 BUN/Creatinine Ratio 15.3 08/09/17 06:34 Glucose 333 mg/dL (70-105) H 08/09/17 06:34 POC Glucose 359 MG/DL (70 - 105) H 08/09/17 06:59 Hemoglobin A1c % 7.7 % (4.0-6.0) H 08/02/17 15:37 Whole Bld Lactic Acid 1.97 mmol/L (0.60-1.99) 08/02/17 13:49 Calcium 8.4 mg/dL (8.6-10.3) L 08/09/17 06:34 Magnesium 3.0 mg/dL (1.9-2.7) H 08/05/17 06:15 Iron 10 ug/dL (27-139) L 08/02/17 13:56 TIBC 135 ug/dL (250-450) L 08/02/17 13:56 Iron Saturation 7 % (15-55) L 08/02/17 13:56 Unsaturated IBC 125 ug/dL (118-369) 08/02/17 13:56 Ferritin 588 ng/mL (15-150) H 08/02/17 13:56 Total Bilirubin 0.6 mg/dL (0.3-1.0) 08/09/17 06:34 Direct Bilirubin 0.09 mg/dL (0.0-0.2) 08/02/17 13:57 AST 21 U/L (13-39) 08/09/17 06:34 ALT 12 U/L (7-52) 08/09/17 06:34 Alkaline Phosphatase 91 U/L (34-104) 08/09/17 06:34 Troponin I 1.16 ng/mL (0.01-0.05) H* D 08/04/17 06:30 B-Natriuretic Peptide 372.0 pg/mL (5.0-100.0) H 08/05/17 06:15 Total Protein 6.4 gm/dL (6.0-8.3) 08/09/17 06:34 Albumin 2.9 gm/dL (3.7-5.3) L 08/09/17 06:34 Globulin 3.5 gm/dL 08/09/17 06:34 Albumin/Globulin Ratio 0.8 (1.0-1.8) L 08/09/17 06:34 Triglycerides 132 mg/dL (<150) 08/04/17 06:30 Cholesterol 55 mg/dL (<200) 08/04/17 06:30 LDL Cholesterol Direct 16 mg/dL (75-193) L 08/04/17 06:30 HDL Cholesterol 13 mg/dL (23-92) L 08/04/17 06:30 Amylase 12 U/L (29-103) L 08/02/17 13:43 Lipase 4 U/L (11-82) L 08/02/17 13:43 TSH 3.74 uIU/ml (0.34-5.60) 08/04/17 06:30 Stool Occult Blood POSITIVE (NEGATIVE) H 08/03/17 17:50 Random Vancomycin 14.8 ug/mL (5.0-40.0) 08/09/17 06:34 Blood Type A POSITIVE 08/02/17 20:54 Antibody Screen POSITIVE 08/02/17 20:54 Crossmatch See Detail 08/02/17 20:54 - Physical Exam Vitals and I&O: Vital Signs Temp 99.0 F 08/09/17 00:00 Pulse 95 08/09/17 07:37 Resp 20 08/09/17 06:00 BP 118/27 08/09/17 06:30 Pulse Ox 99 08/09/17 07:37 Intake & Output 08/08/17 08/09/17 08/09/17 18:59 06:59 18:59 Intake Total 7965.667 9531.563 Output Total 0 Balance 9770.198 0974.563 Weight (lbs) 87.317 kg 94.801 kg Intake: Intake, IV Amount 408.000 521.563 Norepinephrine 8 mg In 258.000 421.563 Dextrose 5% 250 ml @ 0 MCG/MIN IV TITR PRN Rx#: [id number] Piperacillin Sodium/ 150 100 Tazobact 2.25 gm In Sodium Chloride 0.9% 50 ml @ 100 mls/hr IV Q6HR [facility] Rx#:[id number] Tube Feeding 600 1100 Other 200 300 Output: Urine 0 Other: # Voids 0 # Bowel Movements 2 1 Stool Characteristics Soft Liquid Brown Active Medications: Current Medications Acetaminophen (Tylenol 650mg/20.3ml Suspension) 650 mg GT DAILY [facility] Stop: 10/03/17 08:59 Last Admin: 08/08/17 09:10 Dose: 650 mg Albuterol/Ipratropium (Duoneb Neb) 3 ml HHN Q4HRT [facility] Stop: 10/02/17 10:59 Last Admin: 08/09/17 07:37 Dose: 3 ml Ascorbic Acid (Vitamin C) 500 mg PO DAILY [facility] Stop: 10/03/17 08:59 Last Admin: 08/08/17 09:11 Dose: 500 mg Aspirin (Aspirin Chewable) 81 mg GT DAILY [facility] Stop: 10/03/17 08:59 Last Admin: 08/08/17 09:11 Dose: 81 mg Atorvastatin Calcium (Lipitor) 40 mg GT HS [facility] Stop: 10/03/17 20:59 Last Admin: 08/08/17 20:53 Dose: 40 mg Bisacodyl (Dulcolax 10 Mg Supp) 10 mg RC Q72HR PRN PRN Reason: IF MOM INEFFECTIVE Stop: 10/02/17 14:13 Chlorhexidine Gluconate (Peridex) 15 ml MM 0800,1999 [facility] Stop: 10/02/17 07:59 Last Admin: 08/08/17 20:00 Dose: 15 ml Cholecalciferol (Vitamin D3) 1,000 iu GT DAILY [facility] Stop: 10/03/17 08:59 Last Admin: 08/08/17 09:11 Dose: 1,000 iu Diltiazem HCl (Cardizem) 5 mg IVP Q4H PRN PRN Reason: INCREASE HEART RATE Stop: 10/01/17 21:59 Last Admin: 08/06/17 14:50 Dose: 5 mg Docusate Sodium (Colace) 100 mg PO DAILY [facility] Stop: 10/03/17 08:59 Last Admin: 08/08/17 09:11 Dose: 100 mg Dopamine HCl/Dextrose (Dopamine) 400 mg in 250 mls @ 0 mls/hr IV TITR PRN; Protocol; Per Protocol PRN Reason: BP MAINTENANCE (PER PROTOCOL) Stop: 10/02/17 07:47 Norepinephrine Bitartrate 8 mg (/ Dextrose) 258 mls @ 0 mls/hr IV TITR PRN; Protocol; 0 MCG/MIN PRN Reason: BP MAINTENANCE (PER PROTOCOL) Stop: 10/05/17 13:59 Last Titration: 08/09/17 06:00 Dose: 18.96 mcg/min, 36.68 mls/hr Diltiazem HCl 125 mg/ Dextrose 125 mls @ 0 mls/hr IV TITR [facility]; 0 MG/HR PRN Reason: Protocol Stop: 10/05/17 14:59 Last Admin: 08/08/17 18:40 Dose: 5 mg/hr, 5 mls/hr Piperacillin Sod/Tazobactam (Sod 2.25 gm/ Sodium Chloride) 50 mls @ 100 mls/hr IV Q6HR [facility] Stop: 10/05/17 17:59 Last Infusion: 08/09/17 05:53 Dose: Infused Insulin Aspart (Novolog Insulin Sliding Scale) 0 units SUBQ Q6HR [facility] PRN Reason: Protocol Stop: 10/02/17 00:00 Last Admin: 08/09/17 07:01 Dose: 10 units Lactobacillus Rhamnosus (Culturelle 15b) 1 each PO DAILY [facility] Stop: 10/07/17 08:59 Last Admin: 08/08/17 09:11 Dose: 1 each Lorazepam (Ativan) 1 mg IVP Q2HR PRN; Protocol PRN Reason: Restlessness Stop: 10/01/17 21:18 Last Admin: 08/08/17 15:54 Dose: 1 mg Magnesium Hydroxide (Milk Of Magnesia) 30 ml GT Q72H PRN PRN Reason: NO BM FOR THREE DAYS Stop: 10/02/17 14:13 Mirtazapine (Remeron) 15 mg GT HS FOUZIA PRN Reason: Protocol Stop: 10/02/17 20:59 Last Admin: 08/08/17 20:54 Dose: 15 mg Miscellaneous (Clinical Monitoring) 1 ea MC PRN PRN PRN Reason: RENAL Stop: 10/05/17 11:28 Miscellaneous (Zosyn Iv Per Pharmacy) 1 ea MC PRN PRN PRN Reason: PROTOCOL Stop: 10/05/17 15:59 Miscellaneous (Probiotic Screen) 1 ea MC PRN PRN PRN Reason: PROTOCOL Stop: 10/06/17 14:14 Multivitamins/Vitamin C (Theragran) 1 tab PO DAILY [facility] Stop: 10/03/17 08:59 Last Admin: 08/08/17 09:11 Dose: 1 tab Mupirocin (Bactroban Oint) 1 appl NS BID [facility] Stop: 08/09/17 17:01 Last Admin: 08/08/17 17:14 Dose: 1 appl Ondansetron HCl (Zofran Odt) 4 mg PO Q6HR PRN PRN Reason: Nausea / Vomiting Stop: 10/02/17 14:13 Pantoprazole Sodium (Protonix) 40 mg IVP DAILY [facility] Stop: 10/02/17 08:59 Last Admin: 08/08/17 09:11 Dose: 40 mg Simethicone (Mylicon) 80 mg GT Q6H PRN PRN Reason: GAS PAIN Stop: 10/02/17 14:13 Sodium Phosphate (Fleet Enema) 118 ml RC PRN PRN PRN Reason: IF MOM/DULCOLAX INEFFECTIVE Stop: 10/02/17 14:13 Temazepam (Restoril) 15 mg GT HS PRN; Protocol PRN Reason: Insomnia Stop: 10/02/17 14:13 Last Admin: 08/08/17 23:45 Dose: 15 mg Zinc Sulfate (Zinc Sulfate) 220 mg GT DAILY [facility] Stop: 10/03/17 08:59 Last Admin: 08/08/17 09:11 Dose: 220 mg General: Alert, No acute distress (scattered rhonchi) HEENT: Atraumatic, PERRLA, EOMI, Mucous membr. moist/pink Neck: Supple, Other (TRACH) Cardiovascular: Regular rate Lungs: Other (few rhonchi) Abdomen: Bowel sounds, Soft, Other (INTACT GT) Extremities: Edema (upper wxtrmities), Other (upper ext) Neurological: Sensation intact Skin: no Rash Psych/Mental Status: Mood NL - Procedures Procedures: Procedures Procedure Code Date BLOOD TRANSFUSION SERVICE 61880 08/02/17 EXCISION OF STOMACH, ENDO, DIAGN [id number] 07/10/17 INSPECTION OF LOWER INTESTINAL TRACT, ENDO [id number] 07/10/17 PERFORMANCE OF URINARY FILTRATION, <6 HRS/DAY [id number] 07/10/17 RESPIRATORY VENTILATION, GREATER THAN 96 CONSECUTIVE HOURS [id number] 08/02/17 TRANSFUSE NONAUT RED BLOOD CELLS IN PERIPH VEIN, PERC 21329S0 08/02/17 Assessment/Plan - Assessment Assessment: 76 YO FEMALE WITH ANEMIA STOOL OB + NO OVERT GI BLEEDING BUT COULD BE SMALL BOWEL SOURCE RECENT EGD SHOWED GASTRITIS RECENT COLO SHOWED HEMORRHOIDS SBFT SHOWED REFLUX AND DELAYED TRANSIT WITHOUT OBSTRUCTION 1.FOLLOW H/H 2.IF GI BLEEDING OCCURS THEN GET BLEEDING SCAN VS ANGIOGRAPHY
[2017-08-09] MEDS: Chlorhexidine Gluconate 0.12% 15mL Mouthwash MM SCH ×2 (08:44→20:00)
[2017-08-09 09:20] LABS: BAND NEUTROPHILE 1 % (0-10); EOSINOPHIL 3 % (0-5); LYMPHOCYTE 5 % (20-50); MONOCYTE 5 % (2-10); NEUTROPHILS 86 % (40-80); PLATELET ESTIMATE ADEQUATE (NORMAL); TOTAL CELLS COUNTED 100
[2017-08-09] MEDS: KCL 20mEq/100mL Premix 20 MEQ/100 ML PIGGYBACK IV SCH ×2 (10:02→12:26)
[2017-08-09] MEDS: Lactobacillus Rhamnosus GG 15 Billion CFU CAP.SPRINK PO SCH (10:02)
[2017-08-09] MEDS: Multivitamin Tab PO SCH (10:03)
[2017-08-09] MEDS: Aspirin 81mg Chewable Tab GT SCH (10:03)
--- NOTE | 2017-08-09 12:33 | General Progress Note ---
Subjective - Review of Systems Events since last encounter: no distress no gi bleed Objective - Results Result Diagrams: 08/09/17 06:34 08/09/17 06:34 Recent Labs: Laboratory Last Values WBC 13.1 Th/cmm (4.8-10.8) H 08/09/17 06:34 RBC 2.69 Mil/cmm (3.80-5.20) L 08/09/17 06:34 Hgb 8.5 gm/dL (12-16) L 08/09/17 06:34 Hct 25.5 % (41.0-60) L D 08/09/17 06:34 MCV 94.5 fl (81-100) 08/09/17 06:34 MCH 31.7 pg (27.0-31.0) H 08/09/17 06:34 MCHC Differential 33.5 pg (28.0-36.0) 08/09/17 06:34 RDW 17.7 % (11.5-20.0) 08/09/17 06:34 Plt Count 233 Th/cmm (150-400) D 08/09/17 06:34 MPV 11.8 fl 08/09/17 06:34 Neutrophils % 83.3 % (40.0-80.0) H 08/06/17 07:15 Band Neutrophils % 1 % (0-10) 08/09/17 06:34 Lymphocytes % 5.0 % (20.0-50.0) L 08/06/17 07:15 Monocytes % 8.7 % (2.0-10.0) 08/06/17 07:15 Eosinophils % 3.0 % (0.0-5.0) 08/06/17 07:15 Basophils % 0.0 % (0.0-2.0) 08/06/17 07:15 Neutrophils (Manual) 86 % (40-80) H 08/09/17 06:34 Lymphocytes 5 % (20-50) L 08/09/17 06:34 Monocytes 5 % (2-10) 08/09/17 06:34 Eosinophils 3 % (0-5) 08/09/17 06:34 Basophils 1 % (0-3) 08/07/17 05:45 Hypochromia 1+ 08/02/17 15:37 Platelet Estimate ADEQUATE (NORMAL) 08/09/17 06:34 Platelet Morphology NORMAL (NORMAL) 08/02/17 15:37 Anisocytosis 1+ 08/07/17 05:45 Crenated Cell 2+ 08/02/17 15:37 RBC Morph Micro Appear ABNORMAL (NORMAL) 08/02/17 15:37 PT 12.9 SECONDS (9.5-11.5) H 08/02/17 13:58 INR 1.23 (0.5-1.4) 08/02/17 13:58 PTT (Actin FS) 33.6 SECONDS (26.0-38.0) 08/02/17 13:58 Specimen Source Arterial 08/03/17 08:58 Sample Site Right Radial 08/03/17 08:58 pH 7.42 (7.35-7.45) 08/03/17 08:58 pCO2 37.0 mmHg (35.0-45.0) 08/03/17 08:58 pO2 204.0 mmHg (80.0-100.0) H 08/03/17 08:58 HCO3 24.8 mEq/L (20.0-26.0) 08/03/17 08:58 Base Excess -0.2 mEq/L (-3.0-3.0) 08/03/17 08:58 O2 Saturation 100.0 % (92.0-100.0) 08/03/17 08:58 Rhett Test Positive 08/03/17 08:58 Vent Rate 12 08/03/17 08:58 Inspired O2 60 08/03/17 08:58 Tidal Volume 450 08/03/17 08:58 PEEP 5 08/03/17 08:58 Pressure (ins/psv/peep) NA 08/03/17 08:58 Critical Value LZHANG 08/03/17 08:58 Sodium 133 mEq/L (136-145) L 08/09/17 06:34 Potassium 2.9 mEq/L (3.5-5.1) L* 08/09/17 06:34 Chloride 96 mEq/L (98-107) L 08/09/17 06:34 Carbon Dioxide 27.9 mEq/L (21.0-31.0) 08/09/17 06:34 Anion Gap 12.0 (7.0-16.0) 08/09/17 06:34 BUN 49 mg/dL (7-25) H 08/09/17 06:34 Creatinine 3.2 mg/dL (0.6-1.2) H 08/09/17 06:34 Est GFR ( Amer) TNP 08/09/17 06:34 Est GFR (Non-Af Amer) TNP 08/09/17 06:34 BUN/Creatinine Ratio 15.3 08/09/17 06:34 Glucose 333 mg/dL (70-105) H 08/09/17 06:34 POC Glucose 312 MG/DL (70 - 105) H 08/09/17 11:57 Hemoglobin A1c % 7.7 % (4.0-6.0) H 08/02/17 15:37 Whole Bld Lactic Acid 1.97 mmol/L (0.60-1.99) 08/02/17 13:49 Calcium 8.4 mg/dL (8.6-10.3) L 08/09/17 06:34 Magnesium 3.0 mg/dL (1.9-2.7) H 08/05/17 06:15 Iron 10 ug/dL (27-139) L 08/02/17 13:56 TIBC 135 ug/dL (250-450) L 08/02/17 13:56 Iron Saturation 7 % (15-55) L 08/02/17 13:56 Unsaturated IBC 125 ug/dL (118-369) 08/02/17 13:56 Ferritin 588 ng/mL (15-150) H 08/02/17 13:56 Total Bilirubin 0.6 mg/dL (0.3-1.0) 08/09/17 06:34 Direct Bilirubin 0.09 mg/dL (0.0-0.2) 08/02/17 13:57 AST 21 U/L (13-39) 08/09/17 06:34 ALT 12 U/L (7-52) 08/09/17 06:34 Alkaline Phosphatase 91 U/L (34-104) 08/09/17 06:34 Troponin I 1.16 ng/mL (0.01-0.05) H* D 08/04/17 06:30 B-Natriuretic Peptide 372.0 pg/mL (5.0-100.0) H 08/05/17 06:15 Total Protein 6.4 gm/dL (6.0-8.3) 08/09/17 06:34 Albumin 2.9 gm/dL (3.7-5.3) L 08/09/17 06:34 Globulin 3.5 gm/dL 08/09/17 06:34 Albumin/Globulin Ratio 0.8 (1.0-1.8) L 08/09/17 06:34 Triglycerides 132 mg/dL (<150) 08/04/17 06:30 Cholesterol 55 mg/dL (<200) 08/04/17 06:30 LDL Cholesterol Direct 16 mg/dL (75-193) L 08/04/17 06:30 HDL Cholesterol 13 mg/dL (23-92) L 08/04/17 06:30 Amylase 12 U/L (29-103) L 08/02/17 13:43 Lipase 4 U/L (11-82) L 08/02/17 13:43 TSH 3.74 uIU/ml (0.34-5.60) 08/04/17 06:30 Stool Occult Blood POSITIVE (NEGATIVE) H 08/03/17 17:50 Random Vancomycin 14.8 ug/mL (5.0-40.0) 08/09/17 06:34 Blood Type A POSITIVE 08/02/17 20:54 Antibody Screen POSITIVE 08/02/17 20:54 Crossmatch See Detail 08/02/17 20:54 - Physical Exam Vitals and I&O: Vital Signs Temp 99.0 F 08/09/17 00:00 Pulse 131 08/09/17 11:00 Resp 20 08/09/17 06:00 BP 118/27 08/09/17 06:30 Pulse Ox 100 08/09/17 11:00 Intake & Output 08/08/17 08/09/17 08/09/17 18:59 06:59 18:59 Intake Total 5451.941 2776.563 277.604 Output Total 0 Balance 1426.794 6392.563 277.604 Weight (lbs) 87.317 kg 94.801 kg Intake: Intake, IV Amount 408.000 521.563 277.604 Diltiazem 125 mg In 83.167 Dextrose 5% 100 ml @ 0 MG /HR IV TITR [facility] Rx#: [id number] KCL 20mEq/100mL Premix 20 100 meq In 100 ml @ 50 mls/ hr IV Q2H [facility] Rx#: [id number] Norepinephrine 8 mg In 258.000 421.563 94.437 Dextrose 5% 250 ml @ 0 MCG/MIN IV TITR PRN Rx#: [id number] Piperacillin Sodium/ 150 100 Tazobact 2.25 gm In Sodium Chloride 0.9% 50 ml @ 100 mls/hr IV Q6HR [facility] Rx#:[id number] Tube Feeding 600 1100 Other 200 300 Output: Urine 0 Other: # Voids 0 # Bowel Movements 2 1 Stool Characteristics Soft Liquid Brown Active Medications: Current Medications Acetaminophen (Tylenol 650mg/20.3ml Suspension) 650 mg GT DAILY [facility] Stop: 10/03/17 08:59 Last Admin: 08/09/17 10:04 Dose: 650 mg Albuterol/Ipratropium (Duoneb Neb) 3 ml HHN Q4HRT [facility] Stop: 10/02/17 10:59 Last Admin: 08/09/17 11:00 Dose: 3 ml Ascorbic Acid (Vitamin C) 500 mg PO DAILY [facility] Stop: 10/03/17 08:59 Last Admin: 08/09/17 10:03 Dose: 500 mg Aspirin (Aspirin Chewable) 81 mg GT DAILY [facility] Stop: 10/03/17 08:59 Last Admin: 08/09/17 10:03 Dose: 81 mg Atorvastatin Calcium (Lipitor) 40 mg GT HS [facility] Stop: 10/03/17 20:59 Last Admin: 08/08/17 20:53 Dose: 40 mg Bisacodyl (Dulcolax 10 Mg Supp) 10 mg RC Q72HR PRN PRN Reason: IF MOM INEFFECTIVE Stop: 10/02/17 14:13 Chlorhexidine Gluconate (Peridex) 15 ml MM 0800,2000 [facility] Stop: 10/02/17 07:59 Last Admin: 08/09/17 08:44 Dose: 15 ml Cholecalciferol (Vitamin D3) 1,000 iu GT DAILY [facility] Stop: 10/03/17 08:59 Last Admin: 08/09/17 10:02 Dose: 1,000 iu Diltiazem HCl (Cardizem) 5 mg IVP Q4H PRN PRN Reason: INCREASE HEART RATE Stop: 10/01/17 21:59 Last Admin: 08/06/17 14:50 Dose: 5 mg Docusate Sodium (Colace) 100 mg PO DAILY [facility] Stop: 10/03/17 08:59 Last Admin: 08/09/17 10:09 Dose: 100 mg Dopamine HCl/Dextrose (Dopamine) 400 mg in 250 mls @ 0 mls/hr IV TITR PRN; Protocol; Per Protocol PRN Reason: BP MAINTENANCE (PER PROTOCOL) Stop: 10/02/17 07:47 Norepinephrine Bitartrate 8 mg (/ Dextrose) 258 mls @ 0 mls/hr IV TITR PRN; Protocol; 0 MCG/MIN PRN Reason: BP MAINTENANCE (PER PROTOCOL) Stop: 10/05/17 13:59 Last Admin: 08/09/17 08:54 Dose: 30 mcg/min, 58.05 mls/hr Diltiazem HCl 125 mg/ Dextrose 125 mls @ 0 mls/hr IV TITR [facility]OUZIA; 0 MG/HR PRN Reason: Protocol Stop: 10/05/17 14:59 Last Titration: 08/09/17 11:18 Dose: 10 mg/hr, 10 mls/hr Piperacillin Sod/Tazobactam (Sod 2.25 gm/ Sodium Chloride) 50 mls @ 100 mls/hr IV Q6HR [facility] Stop: 10/05/17 17:59 Last Admin: 08/09/17 11:55 Dose: 100 mls/hr Potassium Chloride (Potassium Chloride) 20 meq in 100 mls @ 50 mls/hr IV Q2H [facility] Stop: 08/09/17 13:29 Last Admin: 08/09/17 12:26 Dose: 50 mls/hr Insulin Aspart (Novolog Insulin Sliding Scale) 0 units SUBQ Q6HR [facility] PRN Reason: Protocol Stop: 10/02/17 00:00 Last Admin: 08/09/17 12:14 Dose: 8 units Lactobacillus Rhamnosus (Culturelle 15b) 1 each PO DAILY [facility] Stop: 10/07/17 08:59 Last Admin: 08/09/17 10:02 Dose: 1 each Lorazepam (Ativan) 1 mg IVP Q2HR PRN; Protocol PRN Reason: Restlessness Stop: 10/01/17 21:18 Last Admin: 08/09/17 12:04 Dose: 1 mg Magnesium Hydroxide (Milk Of Magnesia) 30 ml GT Q72H PRN PRN Reason: NO BM FOR THREE DAYS Stop: 10/02/17 14:13 Mirtazapine (Remeron) 15 mg GT HS [facility] PRN Reason: Protocol Stop: 10/02/17 20:59 Last Admin: 08/08/17 20:54 Dose: 15 mg Miscellaneous (Clinical Monitoring) 1 ea PRN PRN PRN Reason: RENAL Stop: 10/05/17 11:28 Miscellaneous (Zosyn Iv Per Pharmacy) 1 ea PRN PRN PRN Reason: PROTOCOL Stop: 10/05/17 15:59 Miscellaneous (Probiotic Screen) 1 ea PRN PRN PRN Reason: PROTOCOL Stop: 10/06/17 14:14 Multivitamins/Vitamin C (Theragran) 1 tab PO DAILY [facility] Stop: 10/03/17 08:59 Last Admin: 08/09/17 10:03 Dose: 1 tab Mupirocin (Bactroban Oint) 1 appl NS BID [facility] Stop: 08/09/17 17:01 Last Admin: 08/09/17 10:09 Dose: 1 appl Ondansetron HCl (Zofran Odt) 4 mg PO Q6HR PRN PRN Reason: Nausea / Vomiting Stop: 10/02/17 14:13 Last Admin: 08/09/17 08:41 Dose: 4 mg Pantoprazole Sodium (Protonix) 40 mg IVP DAILY [facility] Stop: 10/02/17 08:59 Last Admin: 08/09/17 10:03 Dose: 40 mg Simethicone (Mylicon) 80 mg GT Q6H PRN PRN Reason: GAS PAIN Stop: 10/02/17 14:13 Sodium Phosphate (Fleet Enema) 118 ml RC PRN PRN PRN Reason: IF MOM/DULCOLAX INEFFECTIVE Stop: 10/02/17 14:13 Temazepam (Restoril) 15 mg GT HS PRN; Protocol PRN Reason: Insomnia Stop: 10/02/17 14:13 Last Admin: 08/08/17 23:45 Dose: 15 mg Zinc Sulfate (Zinc Sulfate) 220 mg GT DAILY [facility] Stop: 10/03/17 08:59 Last Admin: 08/09/17 10:02 Dose: 220 mg General: Alert, No acute distress (scattered rhonchi) HEENT: Atraumatic, PERRLA, EOMI, Mucous membr. moist/pink Neck: Supple, Other (TRACH) Cardiovascular: Regular rate Lungs: Other (few rhonchi) Abdomen: Bowel sounds, Soft, Other (INTACT GT) Extremities: Edema (upper wxtrmities), Other (upper ext) Neurological: Sensation intact Skin: no Rash Psych/Mental Status: Mood NL - Procedures Procedures: Procedures Procedure Code Date BLOOD TRANSFUSION SERVICE 34012 08/02/17 EXCISION OF STOMACH, ENDO, DIAGN [id number] 07/10/17 INSPECTION OF LOWER INTESTINAL TRACT, ENDO [id number] 07/10/17 PERFORMANCE OF URINARY FILTRATION, <6 HRS/DAY [id number] 07/10/17 RESPIRATORY VENTILATION, GREATER THAN 96 CONSECUTIVE HOURS [id number] 08/02/17 TRANSFUSE NONAUT RED BLOOD CELLS IN PERIPH VEIN, PERC [id number] 08/02/17 Nutritional Asmnt/Malnutr-PDOC - Dietary Evaluation Malnutrition Findings (Please click <Entered> for more info): Nutritional Asmnt/Malnutrition Start: 08/05/17 15: 53 Text: Status: Complete Freq: Document 08/05/17 15:53 NAVIN (Rec: 08/05/17 16:19 [facility]) Nutritional Asmnt/Malnutrition Patient General Information Nutritional Screening High Risk Diagnosis sepsis, respiratory failure, ESRD Pertinent Medical Hx/Surgical Hx ESRD on HD, respiratory failure with tracheostomy, dysphagia, a fib, anemia, HTN, GERD Subjective Information Pt on vent, not able to interview. Pt was on TF Novosource Renal 30ml/hr continuous, NPO today for surgery. Pt has dialysis ordred per nurse note. Current Diet Order/ Nutrition Support NPO on 08/05 Pertinent Medications vit C, vit D3, colace, novolog , remeron, theragran, protonix , zinc Pertinent Labs 08/05 Na 134, K 3.6, Cl 102, BUN 77, Cr 4.2, Glucose 216, POC 224-233 08/02 A1c 7.7 Nutritional Hx/Data Height 1.6 m Height (Calculated Centimeters) 160.0 Current Weight (lbs) 87.543 kg Weight (Calculated Kilograms) 87.5 Weight (Calculated Grams) 82157.3 [place] Body Weight 115 Body Mass Index (BMI) 34.2 Weight Status Obese GI Symptoms GI Symptoms None Last BM 08/04 Difficult in: None Skin Integrity/Comment: reddened to left/right inner thigh, right lateral index finger, right/left arm; skin tear to left abdominal fold; pressure area to coccy/sacral Estimated Nutritional Goals BEE in Kcals: Adj wt of IBW Calories/Kcals/Kg 30-35 adj wt 61kg Kcals Calculated 0880-8532 Protein: Adj wt of IBW Protein g/k.2-1.4 Protein Calculated 73-85 Fluid: ml 1830-2135ml (1ml/kcal) Nutritional Problem 1. Problem Problem altered nutrition related lab values Etiology hx of ESRD, endocrine dysfunction Signs/Symptoms: BUN 77, Cr 4.2, Glucose 216, POC 224-233, A1c 7.7 Malnutrition Alert Protein-Calorie Malnutrition N/A Is there a minimum of two criteria No selected? Query Text:Check all the applicable criteria. A minimum of two criteria are recommended for diagnosis of either severe or non-severe malnutrition. Intervention/Recommendation Comments 1. Resume TF Novosource Renal 30ml/hr continuous as ordered. increase to goal rate of 40ml /hr continuous as tolerated. This will provide 1920kcal, 87g protein and 688ml free water, meeting 100% of nutritional needs 2. Monitor TF rate, tolerance, wt weekly, skin integrity and labs 3. F/U as high risk in 2-3 days, 08/07-3/ Expected Outcomes/Goals Expected Outcomes/Goals 1. Pt to meet at least 75% of nutritional needs via nutrition support with tolerance 2. Wt stability, skin to remain intact, labs to approach WNL.
--- NOTE | 2017-08-09 15:15 | General Progress Note ---
Subjective - Review of Systems Service Date: 08/09/17 Subjective: more awake, interacting, on vent Objective - Results Result Diagrams: 08/09/17 06:34 08/09/17 06:34 Recent Labs: Laboratory Last Values WBC 13.1 Th/cmm (4.8-10.8) H 08/09/17 06:34 RBC 2.69 Mil/cmm (3.80-5.20) L 08/09/17 06:34 Hgb 8.5 gm/dL (12-16) L 08/09/17 06:34 Hct 25.5 % (41.0-60) L D 08/09/17 06:34 MCV 94.5 fl (81-100) 08/09/17 06:34 MCH 31.7 pg (27.0-31.0) H 08/09/17 06:34 MCHC Differential 33.5 pg (28.0-36.0) 08/09/17 06:34 RDW 17.7 % (11.5-20.0) 08/09/17 06:34 Plt Count 233 Th/cmm (150-400) D 08/09/17 06:34 MPV 11.8 fl 08/09/17 06:34 Neutrophils % 83.3 % (40.0-80.0) H 08/06/17 07:15 Band Neutrophils % 1 % (0-10) 08/09/17 06:34 Lymphocytes % 5.0 % (20.0-50.0) L 08/06/17 07:15 Monocytes % 8.7 % (2.0-10.0) 08/06/17 07:15 Eosinophils % 3.0 % (0.0-5.0) 08/06/17 07:15 Basophils % 0.0 % (0.0-2.0) 08/06/17 07:15 Neutrophils (Manual) 86 % (40-80) H 08/09/17 06:34 Lymphocytes 5 % (20-50) L 08/09/17 06:34 Monocytes 5 % (2-10) 08/09/17 06:34 Eosinophils 3 % (0-5) 08/09/17 06:34 Basophils 1 % (0-3) 08/07/17 05:45 Hypochromia 1+ 08/02/17 15:37 Platelet Estimate ADEQUATE (NORMAL) 08/09/17 06:34 Platelet Morphology NORMAL (NORMAL) 08/02/17 15:37 Anisocytosis 1+ 08/07/17 05:45 Crenated Cell 2+ 08/02/17 15:37 RBC Morph Micro Appear ABNORMAL (NORMAL) 08/02/17 15:37 PT 12.9 SECONDS (9.5-11.5) H 08/02/17 13:58 INR 1.23 (0.5-1.4) 08/02/17 13:58 PTT (Actin FS) 33.6 SECONDS (26.0-38.0) 08/02/17 13:58 Specimen Source Arterial 08/03/17 08:58 Sample Site Right Radial 08/03/17 08:58 pH 7.42 (7.35-7.45) 08/03/17 08:58 pCO2 37.0 mmHg (35.0-45.0) 08/03/17 08:58 pO2 204.0 mmHg (80.0-100.0) H 08/03/17 08:58 HCO3 24.8 mEq/L (20.0-26.0) 08/03/17 08:58 Base Excess -0.2 mEq/L (-3.0-3.0) 08/03/17 08:58 O2 Saturation 100.0 % (92.0-100.0) 08/03/17 08:58 Rhett Test Positive 08/03/17 08:58 Vent Rate 12 08/03/17 08:58 Inspired O2 60 08/03/17 08:58 Tidal Volume 450 08/03/17 08:58 PEEP 5 08/03/17 08:58 Pressure (ins/psv/peep) NA 08/03/17 08:58 Critical Value LZHANG 08/03/17 08:58 Sodium 133 mEq/L (136-145) L 08/09/17 06:34 Potassium 2.9 mEq/L (3.5-5.1) L* 08/09/17 06:34 Chloride 96 mEq/L (98-107) L 08/09/17 06:34 Carbon Dioxide 27.9 mEq/L (21.0-31.0) 08/09/17 06:34 Anion Gap 12.0 (7.0-16.0) 08/09/17 06:34 BUN 49 mg/dL (7-25) H 08/09/17 06:34 Creatinine 3.2 mg/dL (0.6-1.2) H 08/09/17 06:34 Est GFR ( Amer) TNP 08/09/17 06:34 Est GFR (Non-Af Amer) TNP 08/09/17 06:34 BUN/Creatinine Ratio 15.3 08/09/17 06:34 Glucose 333 mg/dL (70-105) H 08/09/17 06:34 POC Glucose 312 MG/DL (70 - 105) H 08/09/17 11:57 Hemoglobin A1c % 7.7 % (4.0-6.0) H 08/02/17 15:37 Whole Bld Lactic Acid 1.97 mmol/L (0.60-1.99) 08/02/17 13:49 Calcium 8.4 mg/dL (8.6-10.3) L 08/09/17 06:34 Magnesium 3.0 mg/dL (1.9-2.7) H 08/05/17 06:15 Iron 10 ug/dL (27-139) L 08/02/17 13:56 TIBC 135 ug/dL (250-450) L 08/02/17 13:56 Iron Saturation 7 % (15-55) L 08/02/17 13:56 Unsaturated IBC 125 ug/dL (118-369) 08/02/17 13:56 Ferritin 588 ng/mL (15-150) H 08/02/17 13:56 Total Bilirubin 0.6 mg/dL (0.3-1.0) 08/09/17 06:34 Direct Bilirubin 0.09 mg/dL (0.0-0.2) 08/02/17 13:57 AST 21 U/L (13-39) 08/09/17 06:34 ALT 12 U/L (7-52) 08/09/17 06:34 Alkaline Phosphatase 91 U/L (34-104) 08/09/17 06:34 Troponin I 1.16 ng/mL (0.01-0.05) H* D 08/04/17 06:30 B-Natriuretic Peptide 372.0 pg/mL (5.0-100.0) H 08/05/17 06:15 Total Protein 6.4 gm/dL (6.0-8.3) 08/09/17 06:34 Albumin 2.9 gm/dL (3.7-5.3) L 08/09/17 06:34 Globulin 3.5 gm/dL 08/09/17 06:34 Albumin/Globulin Ratio 0.8 (1.0-1.8) L 08/09/17 06:34 Triglycerides 132 mg/dL (<150) 08/04/17 06:30 Cholesterol 55 mg/dL (<200) 08/04/17 06:30 LDL Cholesterol Direct 16 mg/dL (75-193) L 08/04/17 06:30 HDL Cholesterol 13 mg/dL (23-92) L 08/04/17 06:30 Amylase 12 U/L (29-103) L 08/02/17 13:43 Lipase 4 U/L (11-82) L 08/02/17 13:43 TSH 3.74 uIU/ml (0.34-5.60) 08/04/17 06:30 Stool Occult Blood POSITIVE (NEGATIVE) H 08/03/17 17:50 Random Vancomycin 14.8 ug/mL (5.0-40.0) 08/09/17 06:34 Blood Type A POSITIVE 08/02/17 20:54 Antibody Screen POSITIVE 08/02/17 20:54 Crossmatch See Detail 08/02/17 20:54 - Physical Exam Vitals and I&O: Vital Signs Temp 97.2 F 08/09/17 08:00 Pulse 102 08/09/17 14:49 Resp 16 08/09/17 09:00 BP 128/53 08/09/17 13:51 Pulse Ox 100 08/09/17 14:49 Intake & Output 08/08/17 08/09/17 08/09/17 18:59 06:59 18:59 Intake Total 9206.894 7205.563 612.604 Output Total 0 Balance 1368.741 2791.563 612.604 Weight (lbs) 87.317 kg 94.801 kg Intake: Intake, IV Amount 408.000 521.563 612.604 Diltiazem 125 mg In 110.167 Dextrose 5% 100 ml @ 0 MG /HR IV TITR [facility] Rx#: [id number] KCL 20mEq/100mL Premix 20 100 meq In 100 ml @ 50 mls/ hr IV Q2H [facility] Rx#: [id number] Norepinephrine 8 mg In 258.000 421.563 352.437 Dextrose 5% 250 ml @ 0 MCG/MIN IV TITR PRN Rx#: [id number] Piperacillin Sodium/ 150 100 50 Tazobact 2.25 gm In Sodium Chloride 0.9% 50 ml @ 100 mls/hr IV Q6HR [facility] Rx#:[id number] Tube Feeding 600 1100 Other 200 300 Output: Urine 0 Other: # Voids 0 # Bowel Movements 2 1 Stool Characteristics Soft Liquid Brown Active Medications: Current Medications Acetaminophen (Tylenol 650mg/20.3ml Suspension) 650 mg GT DAILY [facility] Stop: 10/03/17 08:59 Last Admin: 08/09/17 10:04 Dose: 650 mg Albuterol/Ipratropium (Duoneb Neb) 3 ml HHN Q4HRT [facility] Stop: 10/02/17 10:59 Last Admin: 08/09/17 14:49 Dose: 3 ml Ascorbic Acid (Vitamin C) 500 mg PO DAILY [facility] Stop: 10/03/17 08:59 Last Admin: 08/09/17 10:03 Dose: 500 mg Aspirin (Aspirin Chewable) 81 mg GT DAILY [facility] Stop: 10/03/17 08:59 Last Admin: 08/09/17 10:03 Dose: 81 mg Atorvastatin Calcium (Lipitor) 40 mg GT HS [facility] Stop: 10/03/17 20:59 Last Admin: 08/08/17 20:53 Dose: 40 mg Bisacodyl (Dulcolax 10 Mg Supp) 10 mg RC Q72HR PRN PRN Reason: IF MOM INEFFECTIVE Stop: 10/02/17 14:13 Chlorhexidine Gluconate (Peridex) 15 ml MM 0800,2000 [facility] Stop: 10/02/17 07:59 Last Admin: 08/09/17 08:44 Dose: 15 ml Cholecalciferol (Vitamin D3) 1,000 iu GT DAILY [facility] Stop: 10/03/17 08:59 Last Admin: 08/09/17 10:02 Dose: 1,000 iu Diltiazem HCl (Cardizem) 5 mg IVP Q4H PRN PRN Reason: INCREASE HEART RATE Stop: 10/01/17 21:59 Last Admin: 08/06/17 14:50 Dose: 5 mg Docusate Sodium (Colace) 100 mg PO DAILY [facility] Stop: 10/03/17 08:59 Last Admin: 08/09/17 10:09 Dose: 100 mg Dopamine HCl/Dextrose (Dopamine) 400 mg in 250 mls @ 0 mls/hr IV TITR PRN; Protocol; Per Protocol PRN Reason: BP MAINTENANCE (PER PROTOCOL) Stop: 10/02/17 07:47 Norepinephrine Bitartrate 8 mg (/ Dextrose) 258 mls @ 0 mls/hr IV TITR PRN; Protocol; 0 MCG/MIN PRN Reason: BP MAINTENANCE (PER PROTOCOL) Stop: 10/05/17 13:59 Last Admin: 08/09/17 14:00 Dose: 30 mcg/min, 58.05 mls/hr Diltiazem HCl 125 mg/ Dextrose 125 mls @ 0 mls/hr IV TITR [facility]; 0 MG/HR PRN Reason: Protocol Stop: 10/05/17 14:59 Last Titration: 08/09/17 14:00 Dose: 5 mg/hr, 5 mls/hr Piperacillin Sod/Tazobactam (Sod 2.25 gm/ Sodium Chloride) 50 mls @ 100 mls/hr IV Q6HR [facility] Stop: 10/05/17 17:59 Last Infusion: 08/09/17 12:44 Dose: Infused Insulin Aspart (Novolog Insulin Sliding Scale) 0 units SUBQ Q6HR [facility] PRN Reason: Protocol Stop: 10/02/17 00:00 Last Admin: 08/09/17 12:14 Dose: 8 units Lactobacillus Rhamnosus (Culturelle 15b) 1 each PO DAILY [facility] Stop: 10/07/17 08:59 Last Admin: 08/09/17 10:02 Dose: 1 each Lorazepam (Ativan) 1 mg IVP Q2HR PRN; Protocol PRN Reason: Restlessness Stop: 10/01/17 21:18 Last Admin: 08/09/17 12:04 Dose: 1 mg Magnesium Hydroxide (Milk Of Magnesia) 30 ml GT Q72H PRN PRN Reason: NO BM FOR THREE DAYS Stop: 10/02/17 14:13 Mirtazapine (Remeron) 15 mg GT HS [facility] PRN Reason: Protocol Stop: 10/02/17 20:59 Last Admin: 08/08/17 20:54 Dose: 15 mg Miscellaneous (Clinical Monitoring) 1 ea PRN PRN PRN Reason: RENAL Stop: 10/05/17 11:28 Miscellaneous (Zosyn Iv Per Pharmacy) 1 ea PRN PRN PRN Reason: PROTOCOL Stop: 10/05/17 15:59 Miscellaneous (Probiotic Screen) 1 ea PRN PRN PRN Reason: PROTOCOL Stop: 10/06/17 14:14 Multivitamins/Vitamin C (Theragran) 1 tab PO DAILY [facility] Stop: 10/03/17 08:59 Last Admin: 08/09/17 10:03 Dose: 1 tab Mupirocin (Bactroban Oint) 1 appl NS BID [facility] Stop: 08/09/17 17:01 Last Admin: 08/09/17 10:09 Dose: 1 appl Ondansetron HCl (Zofran Odt) 4 mg PO Q6HR PRN PRN Reason: Nausea / Vomiting Stop: 10/02/17 14:13 Last Admin: 08/09/17 08:41 Dose: 4 mg Pantoprazole Sodium (Protonix) 40 mg IVP DAILY [facility] Stop: 10/02/17 08:59 Last Admin: 08/09/17 10:03 Dose: 40 mg Simethicone (Mylicon) 80 mg GT Q6H PRN PRN Reason: GAS PAIN Stop: 10/02/17 14:13 Sodium Phosphate (Fleet Enema) 118 ml RC PRN PRN PRN Reason: IF MOM/DULCOLAX INEFFECTIVE Stop: 10/02/17 14:13 Temazepam (Restoril) 15 mg GT HS PRN; Protocol PRN Reason: Insomnia Stop: 10/02/17 14:13 Last Admin: 08/08/17 23:45 Dose: 15 mg Zinc Sulfate (Zinc Sulfate) 220 mg GT DAILY [facility] Stop: 10/03/17 08:59 Last Admin: 08/09/17 10:02 Dose: 220 mg General: Alert, No acute distress (scattered rhonchi) HEENT: Atraumatic, PERRLA, EOMI, Mucous membr. moist/pink Neck: Supple, Other (TRACH) Cardiovascular: Regular rate Lungs: Other (few rhonchi) Abdomen: Bowel sounds, Soft, Other (INTACT GT) Extremities: Edema (upper wxtrmities), Other (upper ext) Neurological: Sensation intact Skin: no Rash Psych/Mental Status: Mood NL - Procedures Procedures: Procedures Procedure Code Date BLOOD TRANSFUSION SERVICE 02936 08/02/17 EXCISION OF STOMACH, ENDO, DIAGN [id number] 07/10/17 INSPECTION OF LOWER INTESTINAL TRACT, ENDO [id number] 07/10/17 PERFORMANCE OF URINARY FILTRATION, <6 HRS/DAY [id number] 07/10/17 RESPIRATORY VENTILATION, GREATER THAN 96 CONSECUTIVE HOURS [id number] 08/02/17 TRANSFUSE NONAUT RED BLOOD CELLS IN PERIPH VEIN, PERC [id number] 08/02/17 Assessment/Plan - Assessment Assessment: 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/L UE Edema, Cellulitis Shock Sepsis RF on Vent Acute on Chronic Decomp CHF G (-) Septicemia - Plan Plan: Lab - Result Diagrams 08/04/17 06:30 08/04/17 06:30 Current Medications Acetaminophen (Tylenol 650mg/20.3ml Suspension) 650 mg GT DAILY [facility] Stop: 10/03/17 08:59 Last Admin: 08/04/17 09:18 Dose: 650 mg Albuterol/Ipratropium (Duoneb Neb) 3 ml HHN Q4HRT [facility] Stop: 10/02/17 10:59 Last Admin: 08/04/17 11:25 Dose: 3 ml Ascorbic Acid (Vitamin C) 500 mg PO DAILY [facility] Stop: 10/03/17 08:59 Last Admin: 08/04/17 09:18 Dose: 500 mg Aspirin (Aspirin Chewable) 81 mg GT DAILY [facility] Stop: 10/03/17 08:59 Last Admin: 08/04/17 09:18 Dose: 81 mg Atorvastatin Calcium (Lipitor) 40 mg GT HS [facility] PRN Reason: Protocol Stop: 10/02/17 20:59 Last Admin: 08/03/17 20:19 Dose: 40 mg Bisacodyl (Dulcolax 10 Mg Supp) 10 mg RC Q72HR PRN PRN Reason: IF MOM INEFFECTIVE Stop: 10/02/17 14:13 Bisacodyl (Dulcolax 10 Mg Supp) 10 mg RC PRN PRN PRN Reason: IF MOM INEFFECTIVE Stop: 10/02/17 14:13 Chlorhexidine Gluconate (Peridex) 15 ml MM 0800,2000 [facility] Stop: 10/02/17 07:59 Last Admin: 08/04/17 08:00 Dose: 15 ml Cholecalciferol (Vitamin D3) 1,000 iu GT DAILY [facility] Stop: 10/03/17 08:59 Last Admin: 08/04/17 09:18 Dose: 1,000 iu Diltiazem HCl (Cardizem) 5 mg IVP Q4H PRN PRN Reason: INCREASE HEART RATE Stop: 10/01/17 21:59 Last Admin: 08/03/17 01:38 Dose: 5 mg Docusate Sodium (Colace) 100 mg PO DAILY [facility] Stop: 10/03/17 08:59 Last Admin: 08/04/17 09:18 Dose: 100 mg Heparin Sodium (Porcine) (Heparin) 5,000 units HD UD [facility] Stop: 08/05/17 08:59 Last Admin: 08/04/17 09:19 Dose: Not Given Fluconazole (Diflucan) 200 mg in 100 mls @ 100 mls/hr IV Q24HR [facility] Stop: 10/02/17 14:59 Last Infusion: 08/03/17 15:40 Dose: Infused Meropenem 500 mg/ Sodium (Chloride) 100 mls @ 100 mls/hr IV Q24H [facility] Stop: 10/02/17 12:59 Last Admin: 08/04/17 13:17 Dose: 100 mls/hr Dopamine HCl/Dextrose (Dopamine) 400 mg in 250 mls @ 0 mls/hr IV TITR PRN; Protocol; Per Protocol PRN Reason: BP MAINTENANCE (PER PROTOCOL) Stop: 10/02/17 07:47 Norepinephrine Bitartrate 4 mg (/ Dextrose) 254 mls @ 0 mls/hr IV TITR PRN; Protocol; Per Protocol PRN Reason: BP MAINTENANCE (PER PROTOCOL) Stop: 10/02/17 08:31 Last Admin: 08/03/17 23:47 Dose: 4 mcg/min, 15.24 mls/hr Colistimethate Sodium 80 mg/ (Sodium Chloride) 100 mls @ 100 mls/hr IV Q36H [facility] Stop: 10/02/17 20:59 Last Infusion: 08/03/17 21:20 Dose: Infused Insulin Aspart (Novolog Insulin Sliding Scale) 0 units SUBQ Q6HR [facility] PRN Reason: Protocol Stop: 10/02/17 00:00 Last Admin: 08/04/17 11:30 Dose: 6 units Lorazepam (Ativan) 1 mg IVP Q2HR PRN; Protocol PRN Reason: Restlessness Stop: 10/01/17 21:18 Last Admin: 08/04/17 01:05 Dose: 1 mg Magnesium Hydroxide (Milk Of Magnesia) 30 ml GT Q72H PRN PRN Reason: NO BM FOR THREE DAYS Stop: 10/02/17 14:13 Mirtazapine (Remeron) 15 mg GT HS [facility] PRN Reason: Protocol Stop: 10/02/17 20:59 Last Admin: 08/03/17 20:19 Dose: 15 mg Miscellaneous (Vancomycin Iv Per Pharmacy) 1 ea PRN PRN PRN Reason: PROTOCOL Stop: 10/01/17 20:42 Miscellaneous (Zosyn Iv Per Pharmacy) 1 [facility] PRN PRN PRN Reason: PROTOCOL Stop: 10/01/17 20:42 Multivitamins/Vitamin C (Theragran) 1 tab PO DAILY [facility] Stop: 10/03/17 08:59 Last Admin: 08/04/17 09:18 Dose: 1 tab Ondansetron HCl (Zofran Odt) 4 mg PO Q6HR PRN PRN Reason: Nausea / Vomiting Stop: 10/02/17 14:13 Pantoprazole Sodium (Protonix) 40 mg IVP DAILY [facility] Stop: 10/02/17 08:59 Last Admin: 08/04/17 09:18 Dose: 40 mg Simethicone (Mylicon) 80 mg GT Q6H PRN PRN Reason: GAS PAIN Stop: 10/02/17 14:13 Sodium Phosphate (Fleet Enema) 118 ml RC PRN PRN PRN Reason: IF MOM/DULCOLAX INEFFECTIVE Stop: 10/02/17 14:13 Temazepam (Restoril) 15 mg GT HS PRN; Protocol PRN Reason: Insomnia Stop: 10/02/17 14:13 Last Admin: 08/03/17 20:19 Dose: 15 mg Zinc Sulfate (Zinc Sulfate) 220 mg GT DAILY [facility] Stop: 10/03/17 08:59 Last Admin: 08/04/17 09:18 Dose: 220 scheduled for dialysis tonite Venous & Arterial duplex scans were negative for DVT or clots CXR still showed b/l effusions replace K f/u electrolytes. cbc Lab - Result Diagrams 08/09/17 06:34 03/03/18 06:34 Nutritional Asmnt/Malnutr-PDOC - Dietary Evaluation Malnutrition Findings (Please click <Entered> for more info): Nutritional Asmnt/Malnutrition Start: 08/05/17 15: 53 Text: Status: Complete Freq: Document 08/05/17 15:53 JOHANNAMAX (Rec: 08/05/17 16:19 JOHANNAMAX [id number]) Nutritional Asmnt/Malnutrition Patient General Information Nutritional Screening High Risk Diagnosis sepsis, respiratory failure, ESRD Pertinent Medical Hx/Surgical Hx ESRD on HD, respiratory failure with tracheostomy, dysphagia, a fib, anemia, HTN, GERD Subjective Information Pt on vent, not able to interview. Pt was on TF Novosource Renal 30ml/hr continuous, NPO today for surgery. Pt has dialysis ordred per nurse note. Current Diet Order/ Nutrition Support NPO on 08/05 Pertinent Medications vit C, vit D3, colace, novolog , remeron, theragran, protonix , zinc Pertinent Labs 08/05 Na 134, K 3.6, Cl 102, BUN 77, Cr 4.2, Glucose 216, POC 224-233 08/02 A1c 7.7 Nutritional Hx/Data Height 1.6 m Height (Calculated Centimeters) 160.0 Current Weight (lbs) 87.543 kg Weight (Calculated Kilograms) 87.5 Weight (Calculated Grams) 16967.3 [place] Body Weight 115 Body Mass Index (BMI) 34.2 Weight Status Obese GI Symptoms GI Symptoms None Last BM 08/04 Difficult in: None Skin Integrity/Comment: reddened to left/right inner thigh, right lateral index finger, right/left arm; skin tear to left abdominal fold; pressure area to coccy/sacral Estimated Nutritional Goals BEE in Kcals: Adj wt of IBW Calories/Kcals/Kg 30-35 adj wt 61kg Kcals Calculated 6131-2494 Protein: Adj wt of IBW Protein g/k.2-1.4 Protein Calculated 73-85 Fluid: ml 1830-2135ml (1ml/kcal) Nutritional Problem 1. Problem Problem altered nutrition related lab values Etiology hx of ESRD, endocrine dysfunction Signs/Symptoms: BUN 77, Cr 4.2, Glucose 216, POC 224-233, A1c 7.7 Malnutrition Alert Protein-Calorie Malnutrition N/A Is there a minimum of two criteria No selected? Query Text:Check all the applicable criteria. A minimum of two criteria are recommended for diagnosis of either severe or non-severe malnutrition. Intervention/Recommendation Comments 1. Resume TF Novosource Renal 30ml/hr continuous as ordered. increase to goal rate of 40ml /hr continuous as tolerated. This will provide 1920kcal, 87g protein and 688ml free water, meeting 100% of nutritional needs 2. Monitor TF rate, tolerance, wt weekly, skin integrity and labs 3. F/U as high risk in 2-3 days, 08/07-08/08 Expected Outcomes/Goals Expected Outcomes/Goals 1. Pt to meet at least 75% of nutritional needs via nutrition support with tolerance 2. Wt stability, skin to remain intact, labs to approach WNL.
[2017-08-09 16:14] LABS: HEP A AB IGM Negative (Negative); HEP B CORE IGM Negative (Negative); HEP B SURFACE AG QL Negative (Negative); HEP C ANTIBODY <0.1 s/co ratio (0.0-0.9)
--- NOTE | 2017-08-10 | Infectious Disease Prog Note ---
Infectious Disease Subjective - Review of Systems Service Date: 08/09/17 Subjective: no fever. Infectious Disease Objective - Results Result Diagrams: 08/10/17 04:30 08/10/17 04:30 Recent Labs: Laboratory Last Values WBC 13.1 Th/cmm (4.8-10.8) H 08/09/17 06:34 RBC 2.69 Mil/cmm (3.80-5.20) L 08/09/17 06:34 Hgb 8.5 gm/dL (12-16) L 08/09/17 06:34 Hct 25.5 % (41.0-60) L D 08/09/17 06:34 MCV 94.5 fl (81-100) 08/09/17 06:34 MCH 31.7 pg (27.0-31.0) H 08/09/17 06:34 MCHC Differential 33.5 pg (28.0-36.0) 08/09/17 06:34 RDW 17.7 % (11.5-20.0) 08/09/17 06:34 Plt Count 233 Th/cmm (150-400) D 08/09/17 06:34 MPV 11.8 fl 08/09/17 06:34 Neutrophils % 83.3 % (40.0-80.0) H 08/06/17 07:15 Band Neutrophils % 1 % (0-10) 08/09/17 06:34 Lymphocytes % 5.0 % (20.0-50.0) L 08/06/17 07:15 Monocytes % 8.7 % (2.0-10.0) 08/06/17 07:15 Eosinophils % 3.0 % (0.0-5.0) 08/06/17 07:15 Basophils % 0.0 % (0.0-2.0) 08/06/17 07:15 Neutrophils (Manual) 86 % (40-80) H 08/09/17 06:34 Lymphocytes 5 % (20-50) L 08/09/17 06:34 Monocytes 5 % (2-10) 08/09/17 06:34 Eosinophils 3 % (0-5) 08/09/17 06:34 Basophils 1 % (0-3) 08/07/17 05:45 Hypochromia 1+ 08/02/17 15:37 Platelet Estimate ADEQUATE (NORMAL) 08/09/17 06:34 Platelet Morphology NORMAL (NORMAL) 08/02/17 15:37 Anisocytosis 1+ 08/07/17 05:45 Crenated Cell 2+ 08/02/17 15:37 RBC Morph Micro Appear ABNORMAL (NORMAL) 08/02/17 15:37 PT 12.9 SECONDS (9.5-11.5) H 08/02/17 13:58 INR 1.23 (0.5-1.4) 08/02/17 13:58 PTT (Actin FS) 33.6 SECONDS (26.0-38.0) 08/02/17 13:58 Specimen Source Arterial 08/03/17 08:58 Sample Site Right Radial 08/03/17 08:58 pH 7.42 (7.35-7.45) 08/03/17 08:58 pCO2 37.0 mmHg (35.0-45.0) 08/03/17 08:58 pO2 204.0 mmHg (80.0-100.0) H 08/03/17 08:58 HCO3 24.8 mEq/L (20.0-26.0) 08/03/17 08:58 Base Excess -0.2 mEq/L (-3.0-3.0) 08/03/17 08:58 O2 Saturation 100.0 % (92.0-100.0) 08/03/17 08:58 Rhett Test Positive 08/03/17 08:58 Vent Rate 12 08/03/17 08:58 Inspired O2 60 08/03/17 08:58 Tidal Volume 450 08/03/17 08:58 PEEP 5 08/03/17 08:58 Pressure (ins/psv/peep) NA 08/03/17 08:58 Critical Value LZHANG 08/03/17 08:58 Sodium 133 mEq/L (136-145) L 08/09/17 06:34 Potassium 2.9 mEq/L (3.5-5.1) L* 08/09/17 06:34 Chloride 96 mEq/L (98-107) L 08/09/17 06:34 Carbon Dioxide 27.9 mEq/L (21.0-31.0) 08/09/17 06:34 Anion Gap 12.0 (7.0-16.0) 08/09/17 06:34 BUN 49 mg/dL (7-25) H 08/09/17 06:34 Creatinine 3.2 mg/dL (0.6-1.2) H 08/09/17 06:34 Est GFR ( Amer) TNP 08/09/17 06:34 Est GFR (Non-Af Amer) TNP 08/09/17 06:34 BUN/Creatinine Ratio 15.3 08/09/17 06:34 Glucose 333 mg/dL (70-105) H 08/09/17 06:34 POC Glucose 241 MG/DL (70 - 105) H 08/09/17 23:47 Hemoglobin A1c % 7.7 % (4.0-6.0) H 08/02/17 15:37 Whole Bld Lactic Acid 1.97 mmol/L (0.60-1.99) 08/02/17 13:49 Calcium 8.4 mg/dL (8.6-10.3) L 08/09/17 06:34 Magnesium 3.0 mg/dL (1.9-2.7) H 08/05/17 06:15 Iron 10 ug/dL (27-139) L 08/02/17 13:56 TIBC 135 ug/dL (250-450) L 08/02/17 13:56 Iron Saturation 7 % (15-55) L 08/02/17 13:56 Unsaturated IBC 125 ug/dL (118-369) 08/02/17 13:56 Ferritin 588 ng/mL (15-150) H 08/02/17 13:56 Total Bilirubin 0.6 mg/dL (0.3-1.0) 08/09/17 06:34 Direct Bilirubin 0.09 mg/dL (0.0-0.2) 08/02/17 13:57 AST 21 U/L (13-39) 08/09/17 06:34 ALT 12 U/L (7-52) 08/09/17 06:34 Alkaline Phosphatase 91 U/L (34-104) 08/09/17 06:34 Troponin I 1.16 ng/mL (0.01-0.05) H* D 08/04/17 06:30 B-Natriuretic Peptide 372.0 pg/mL (5.0-100.0) H 08/05/17 06:15 Total Protein 6.4 gm/dL (6.0-8.3) 08/09/17 06:34 Albumin 2.9 gm/dL (3.7-5.3) L 08/09/17 06:34 Globulin 3.5 gm/dL 08/09/17 06:34 Albumin/Globulin Ratio 0.8 (1.0-1.8) L 08/09/17 06:34 Triglycerides 132 mg/dL (<150) 08/04/17 06:30 Cholesterol 55 mg/dL (<200) 08/04/17 06:30 LDL Cholesterol Direct 16 mg/dL (75-193) L 08/04/17 06:30 HDL Cholesterol 13 mg/dL (23-92) L 08/04/17 06:30 Amylase 12 U/L (29-103) L 08/02/17 13:43 Lipase 4 U/L (11-82) L 08/02/17 13:43 TSH 3.74 uIU/ml (0.34-5.60) 08/04/17 06:30 Stool Occult Blood POSITIVE (NEGATIVE) H 08/03/17 17:50 Random Vancomycin 14.8 ug/mL (5.0-40.0) 08/09/17 06:34 Hepatitis A IgM Ab Negative (Negative) 08/08/17 08:15 Hep Bs Antigen Negative (Negative) 08/08/17 08:15 Hep B Core IgM Ab Negative (Negative) 08/08/17 08:15 Hepatitis C Antibody <0.1 s/co ratio (0.0-0.9) 08/08/17 08:15 Blood Type A POSITIVE 08/02/17 20:54 Antibody Screen POSITIVE 08/02/17 20:54 Crossmatch See Detail 08/02/17 20:54 - Physical Exam Vitals and I&O: Vital Signs Temp 97.5 F 08/09/17 20:00 Pulse 117 08/09/17 22:30 Resp 18 08/09/17 22:00 BP 103/54 08/09/17 22:30 Pulse Ox 100 08/09/17 22:14 Intake & Output 08/09/17 08/09/17 08/10/17 06:59 18:59 06:59 Intake Total 1921.563 854.421 83.85 Output Total 0 Balance 1921.563 854.421 83.85 Weight (lbs) 94.801 kg Intake: Intake, IV Amount 521.563 854.421 83.85 Diltiazem 125 mg In 127.834 Dextrose 5% 100 ml @ 0 MG /HR IV TITR [facility] Rx#: [id number] KCL 20mEq/100mL Premix 20 100 meq In 100 ml @ 50 mls/ hr IV Q2H [facility] Rx#: [id number] Norepinephrine 8 mg In 421.563 526.587 83.85 Dextrose 5% 250 ml @ 0 MCG/MIN IV TITR PRN Rx#: [id number] Piperacillin Sodium/ 100 100 Tazobact 2.25 gm In Sodium Chloride 0.9% 50 ml @ 100 mls/hr IV Q6HR [facility] Rx#:[id number] Tube Feeding 1100 Other 300 Output: Urine 0 Other: # Voids 0 # Bowel Movements 1 Active Medications: Current Medications Acetaminophen (Tylenol 650mg/20.3ml Suspension) 650 mg GT DAILY [facility] Stop: 10/03/17 08:59 Last Admin: 08/09/17 10:04 Dose: 650 mg Albuterol/Ipratropium (Duoneb Neb) 3 ml HHN Q4HRT [facility] Stop: 10/02/17 10:59 Last Admin: 08/09/17 18:32 Dose: 3 ml Ascorbic Acid (Vitamin C) 500 mg PO DAILY [facility] Stop: 10/03/17 08:59 Last Admin: 08/09/17 10:03 Dose: 500 mg Aspirin (Aspirin Chewable) 81 mg GT DAILY [facility] Stop: 10/03/17 08:59 Last Admin: 08/09/17 10:03 Dose: 81 mg Atorvastatin Calcium (Lipitor) 40 mg GT HS [facility] Stop: 10/03/17 20:59 Last Admin: 08/09/17 20:50 Dose: 40 mg Bisacodyl (Dulcolax 10 Mg Supp) 10 mg RC Q72HR PRN PRN Reason: IF MOM INEFFECTIVE Stop: 10/02/17 14:13 Chlorhexidine Gluconate (Peridex) 15 ml MM 0800,1999 [facility] Stop: 10/02/17 07:59 Last Admin: 08/09/17 20:00 Dose: 15 ml Cholecalciferol (Vitamin D3) 1,000 iu GT DAILY [facility] Stop: 10/03/17 08:59 Last Admin: 08/09/17 10:02 Dose: 1,000 iu Diltiazem HCl (Cardizem) 5 mg IVP Q4H PRN PRN Reason: INCREASE HEART RATE Stop: 10/01/17 21:59 Last Admin: 08/06/17 14:50 Dose: 5 mg Docusate Sodium (Colace) 100 mg PO DAILY [facility] Stop: 10/03/17 08:59 Last Admin: 08/09/17 10:09 Dose: 100 mg Dopamine HCl/Dextrose (Dopamine) 400 mg in 250 mls @ 0 mls/hr IV TITR PRN; Protocol; Per Protocol PRN Reason: BP MAINTENANCE (PER PROTOCOL) Stop: 10/02/17 07:47 Norepinephrine Bitartrate 8 mg (/ Dextrose) 258 mls @ 0 mls/hr IV TITR PRN; Protocol; 0 MCG/MIN PRN Reason: BP MAINTENANCE (PER PROTOCOL) Stop: 10/05/17 13:59 Last Admin: 08/09/17 20:00 Dose: 24 mcg/min, 46.44 mls/hr Diltiazem HCl 125 mg/ Dextrose 125 mls @ 0 mls/hr IV TITR [facility]; 0 MG/HR PRN Reason: Protocol Stop: 10/05/17 14:59 Last Titration: 08/09/17 18:00 Dose: 5 mg/hr, 5 mls/hr Piperacillin Sod/Tazobactam (Sod 2.25 gm/ Sodium Chloride) 50 mls @ 100 mls/hr IV Q6HR [facility] Stop: 10/05/17 17:59 Last Infusion: 08/09/17 18:50 Dose: Infused Insulin Aspart (Novolog Insulin Sliding Scale) 0 units SUBQ Q6HR [facility] PRN Reason: Protocol Stop: 10/02/17 00:00 Last Admin: 08/09/17 17:35 Dose: 4 units Lactobacillus Rhamnosus (Culturelle 15b) 1 each PO DAILY [facility] Stop: 10/07/17 08:59 Last Admin: 08/09/17 10:02 Dose: 1 each Lorazepam (Ativan) 1 mg IVP Q2HR PRN; Protocol PRN Reason: Restlessness Stop: 10/01/17 21:18 Last Admin: 08/09/17 16:10 Dose: 1 mg Magnesium Hydroxide (Milk Of Magnesia) 30 ml GT Q72H PRN PRN Reason: NO BM FOR THREE DAYS Stop: 10/02/17 14:13 Mirtazapine (Remeron) 15 mg GT HS [facility] PRN Reason: Protocol Stop: 10/02/17 20:59 Last Admin: 08/09/17 20:50 Dose: 15 mg Miscellaneous (Clinical Monitoring) 1 ea MC PRN PRN PRN Reason: RENAL Stop: 10/05/17 11:28 Miscellaneous (Zosyn Iv Per Pharmacy) 1 ea MC PRN PRN PRN Reason: PROTOCOL Stop: 10/05/17 15:59 Miscellaneous (Probiotic Screen) 1 ea MC PRN PRN PRN Reason: PROTOCOL Stop: 10/06/17 14:14 Multivitamins/Vitamin C (Theragran) 1 tab PO DAILY [facility] Stop: 10/03/17 08:59 Last Admin: 08/09/17 10:03 Dose: 1 tab Ondansetron HCl (Zofran Odt) 4 mg PO Q6HR PRN PRN Reason: Nausea / Vomiting Stop: 10/02/17 14:13 Last Admin: 08/09/17 08:41 Dose: 4 mg Pantoprazole Sodium (Protonix) 40 mg IVP DAILY [facility] Stop: 10/02/17 08:59 Last Admin: 08/09/17 10:03 Dose: 40 mg Simethicone (Mylicon) 80 mg GT Q6H PRN PRN Reason: GAS PAIN Stop: 10/02/17 14:13 Sodium Phosphate (Fleet Enema) 118 ml RC PRN PRN PRN Reason: IF MOM/DULCOLAX INEFFECTIVE Stop: 10/02/17 14:13 Temazepam (Restoril) 15 mg GT HS PRN; Protocol PRN Reason: Insomnia Stop: 10/02/17 14:13 Last Admin: 08/09/17 22:20 Dose: 15 mg Zinc Sulfate (Zinc Sulfate) 220 mg GT DAILY [facility] Stop: 10/03/17 08:59 Last Admin: 08/09/17 10:02 Dose: 220 mg General: no acute distress, well developed Neck: supple Cardiovascular: S1S2, regular Lungs: clear to auscultation bilaterally, clear to percussion Abdomen: mass, no distended - Procedures Procedures: Procedures Procedure Code Date BLOOD TRANSFUSION SERVICE 03139 08/02/17 EXCISION OF STOMACH, ENDO, DIAGN [id number] 07/10/17 INSPECTION OF LOWER INTESTINAL TRACT, ENDO [id number] 07/10/17 PERFORMANCE OF URINARY FILTRATION, <6 HRS/DAY [id number] 07/10/17 RESPIRATORY VENTILATION, GREATER THAN 96 CONSECUTIVE HOURS [id number] 08/02/17 TRANSFUSE NONAUT RED BLOOD CELLS IN PERIPH VEIN, PERC [id number] 08/02/17 Infectious Disease Assmt/Plan - Assessment Assessment: 1. Septic shock. improved. 2. Gram-negative negative bacteremia. 3. Pneumonia. 4. 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 5. Diabetes mellitus type 2. 6. Obesity. - Plan Plan: Continue zosyn.. Nutritional Asmnt/Malnutr-PDOC - Dietary Evaluation Malnutrition Findings (Please click <Entered> for more info): Nutritional Asmnt/Malnutrition Start: 08/05/17 15: 53 Text: Status: Complete Freq: Document 08/05/17 15:53 NAVIN (Rec: 08/05/17 16:19 NAVIN [email or web address]) Nutritional Asmnt/Malnutrition Patient General Information Nutritional Screening High Risk Diagnosis sepsis, respiratory failure, ESRD Pertinent Medical Hx/Surgical Hx ESRD on HD, respiratory failure with tracheostomy, dysphagia, a fib, anemia, HTN, GERD Subjective Information Pt on vent, not able to interview. Pt was on TF Novosource Renal 30ml/hr continuous, NPO today for surgery. Pt has dialysis ordred per nurse note. Current Diet Order/ Nutrition Support NPO on 08/05 Pertinent Medications vit C, vit D3, colace, novolog , remeron, theragran, protonix , zinc Pertinent Labs 08/05 Na 134, K 3.6, Cl 102, BUN 77, Cr 4.2, Glucose 216, POC 224-233 08/02 A1c 7.7 Nutritional Hx/Data Height 1.6 m Height (Calculated Centimeters) 160.0 Current Weight (lbs) 87.543 kg Weight (Calculated Kilograms) 87.5 Weight (Calculated Grams) 65102.3 [place]ones Body Weight 115 Body Mass Index (BMI) 34.2 Weight Status Obese GI Symptoms GI Symptoms None Last BM 08/04 Difficult in: None Skin Integrity/Comment: reddened to left/right inner thigh, right lateral index finger, right/left arm; skin tear to left abdominal fold; pressure area to coccy/sacral Estimated Nutritional Goals BEE in Kcals: Adj wt of IBW Calories/Kcals/Kg 30-35 adj wt 61kg Kcals Calculated 8990-4686 Protein: Adj wt of IBW Protein g/k.2-1.4 Protein Calculated 73-85 Fluid: ml 1830-2135ml (1ml/kcal) Nutritional Problem 1. Problem Problem altered nutrition related lab values Etiology hx of ESRD, endocrine dysfunction Signs/Symptoms: BUN 77, Cr 4.2, Glucose 216, POC 224-233, A1c 7.7 Malnutrition Alert Protein-Calorie Malnutrition N/A Is there a minimum of two criteria No selected? Query Text:Check all the applicable criteria. A minimum of two criteria are recommended for diagnosis of either severe or non-severe malnutrition. Intervention/Recommendation Comments 1. Resume TF Novosource Renal 30ml/hr continuous as ordered. increase to goal rate of 40ml /hr continuous as tolerated. This will provide 1920kcal, 87g protein and 688ml free water, meeting 100% of nutritional needs 2. Monitor TF rate, tolerance, wt weekly, skin integrity and labs 3. F/U as high risk in 2-3 days, 3-3/2 Expected Outcomes/Goals Expected Outcomes/Goals 1. Pt to meet at least 75% of nutritional needs via nutrition support with tolerance 2. Wt stability, skin to remain intact, labs to approach WNL.
[2017-08-10] MEDS: Albuterol/Ipratropium Neb 3 ML AERS HHN SCH ×8 (00:02→23:05)
[2017-08-10] MEDS: INSULIN ASPART SLIDING SCALE 100 UNITS/ML UNIT SUBQ SCH ×5 (00:09→23:22)
[2017-08-10] MEDS: Piperacillin/Tazobact 2.25 gm in 0.9% NS 50 ML IV SCH ×5 (05:34→23:08)
[2017-08-10 05:58] LABS: HEMOGLOBIN 9.3 gm/dL (12-16)
[2017-08-10 06:00] LABS: % EOSINOPHILS 3.1 % (0.0-5.0); % LYMPHOCYTES 4.6 % (20.0-50.0); % MONOCYTES 11.8 % (2.0-10.0); % NEUTROPHILS 80.5 % (40.0-80.0); EOSINOPHILE ABSOLUTE 0.4 Th/cmm (0.1-0.4); LYMPHOCYTE ABSOLUTE 0.7 Th/cmm (1.5-3.0); MEAN CELL VOLUME 91.4 fl (81-100); MEAN CORPUSCULAR HEMOGLOBIN 29.8 pg (27.0-31.0); MEAN CORPUSCULAR HGB CONC 32.6 pg (28.0-36.0); MONOCYTE ABSOLUTE 1.7 Th/cmm (0.3-1.0); NEUTROPHILE ABSOLUTE 11.7 Th/cmm (1.8-8.0); PLATELET COUNT 236 Th/cmm (150-400); RED BLOOD COUNT 3.12 Mil/cmm (3.80-5.20); RED CELL DISTRIBUTION WIDTH 17.6 % (11.5-20.0)
[2017-08-10 06:29] LABS: ANION GAP 13.9 (7.0-16.0); BUN - UREA NITROGEN 38 mg/dL (7-25); CALCIUM SERUM 8.3 mg/dL (8.6-10.3); CHLORIDE 99 mEq/L (98-107); CREATININE - SERUM 2.6 mg/dL (0.6-1.2); POTASSIUM SERUM 3.9 mEq/L (3.5-5.1); SODIUM SERUM 137 mEq/L (136-145)
[2017-08-10 06:43] LABS: WHITE BLOOD COUNT 14.5 Th/cmm (4.8-10.8)
[2017-08-10 06:44] LABS: HEMATOCRIT 28.5 % (41.0-60)
--- NOTE | 2017-08-10 08:29 | GI Progress Note ---
Subjective - Review of Systems Subjective: NO GI BLEEDING Objective - Results Result Diagrams: 08/10/17 04:30 08/10/17 04:30 Recent Labs: Laboratory Last Values WBC 14.5 Th/cmm (4.8-10.8) H 08/10/17 04:30 RBC 3.12 Mil/cmm (3.80-5.20) L 08/10/17 04:30 Hgb 9.3 gm/dL (12-16) L 08/10/17 04:30 Hct 28.5 % (41.0-60) L D 08/10/17 04:30 MCV 91.4 fl (81-100) 08/10/17 04:30 MCH 29.8 pg (27.0-31.0) 08/10/17 04:30 MCHC Differential 32.6 pg (28.0-36.0) 08/10/17 04:30 RDW 17.6 % (11.5-20.0) 08/10/17 04:30 Plt Count 236 Th/cmm (150-400) 08/10/17 04:30 MPV 12.0 fl 08/10/17 04:30 Neutrophils % 80.5 % (40.0-80.0) H 08/10/17 04:30 Band Neutrophils % 1 % (0-10) 08/09/17 06:34 Lymphocytes % 4.6 % (20.0-50.0) L 08/10/17 04:30 Monocytes % 11.8 % (2.0-10.0) H 08/10/17 04:30 Eosinophils % 3.1 % (0.0-5.0) 08/10/17 04:30 Basophils % 0.0 % (0.0-2.0) 08/10/17 04:30 Neutrophils (Manual) 86 % (40-80) H 08/09/17 06:34 Lymphocytes 5 % (20-50) L 08/09/17 06:34 Monocytes 5 % (2-10) 08/09/17 06:34 Eosinophils 3 % (0-5) 08/09/17 06:34 Basophils 1 % (0-3) 08/07/17 05:45 Hypochromia 1+ 08/02/17 15:37 Platelet Estimate ADEQUATE (NORMAL) 08/09/17 06:34 Platelet Morphology NORMAL (NORMAL) 08/02/17 15:37 Anisocytosis 1+ 08/07/17 05:45 Crenated Cell 2+ 08/02/17 15:37 RBC Morph Micro Appear ABNORMAL (NORMAL) 08/02/17 15:37 PT 12.9 SECONDS (9.5-11.5) H 08/02/17 13:58 INR 1.23 (0.5-1.4) 08/02/17 13:58 PTT (Actin FS) 33.6 SECONDS (26.0-38.0) 08/02/17 13:58 Specimen Source Arterial 08/03/17 08:58 Sample Site Right Radial 08/03/17 08:58 pH 7.42 (7.35-7.45) 08/03/17 08:58 pCO2 37.0 mmHg (35.0-45.0) 08/03/17 08:58 pO2 204.0 mmHg (80.0-100.0) H 08/03/17 08:58 HCO3 24.8 mEq/L (20.0-26.0) 08/03/17 08:58 Base Excess -0.2 mEq/L (-3.0-3.0) 08/03/17 08:58 O2 Saturation 100.0 % (92.0-100.0) 08/03/17 08:58 Rhett Test Positive 08/03/17 08:58 Vent Rate 12 08/03/17 08:58 Inspired O2 60 08/03/17 08:58 Tidal Volume 450 08/03/17 08:58 PEEP 5 08/03/17 08:58 Pressure (ins/psv/peep) NA 08/03/17 08:58 Critical Value LZHANG 08/03/17 08:58 Sodium 137 mEq/L (136-145) 08/10/17 04:30 Potassium 3.9 mEq/L (3.5-5.1) 08/10/17 04:30 Chloride 99 mEq/L (98-107) 08/10/17 04:30 Carbon Dioxide 28.0 mEq/L (21.0-31.0) 08/10/17 04:30 Anion Gap 13.9 (7.0-16.0) 08/10/17 04:30 BUN 38 mg/dL (7-25) H 08/10/17 04:30 Creatinine 2.6 mg/dL (0.6-1.2) H 08/10/17 04:30 Est GFR ( Amer) TNP 08/10/17 04:30 Est GFR (Non-Af Amer) TNP 08/10/17 04:30 BUN/Creatinine Ratio 14.6 08/10/17 04:30 Glucose 333 mg/dL (70-105) H 08/09/17 06:34 POC Glucose 363 MG/DL (70 - 105) H 08/10/17 05:46 Hemoglobin A1c % 7.7 % (4.0-6.0) H 08/02/17 15:37 Whole Bld Lactic Acid 1.97 mmol/L (0.60-1.99) 08/02/17 13:49 Calcium 8.3 mg/dL (8.6-10.3) L 08/10/17 04:30 Magnesium 3.0 mg/dL (1.9-2.7) H 08/05/17 06:15 Iron 10 ug/dL (27-139) L 08/02/17 13:56 TIBC 135 ug/dL (250-450) L 08/02/17 13:56 Iron Saturation 7 % (15-55) L 08/02/17 13:56 Unsaturated IBC 125 ug/dL (118-369) 08/02/17 13:56 Ferritin 588 ng/mL (15-150) H 08/02/17 13:56 Total Bilirubin 0.6 mg/dL (0.3-1.0) 08/09/17 06:34 Direct Bilirubin 0.09 mg/dL (0.0-0.2) 08/02/17 13:57 AST 21 U/L (13-39) 08/09/17 06:34 ALT 12 U/L (7-52) 08/09/17 06:34 Alkaline Phosphatase 91 U/L (34-104) 08/09/17 06:34 Troponin I 1.16 ng/mL (0.01-0.05) H* D 08/04/17 06:30 B-Natriuretic Peptide 372.0 pg/mL (5.0-100.0) H 08/05/17 06:15 Total Protein 6.4 gm/dL (6.0-8.3) 08/09/17 06:34 Albumin 2.9 gm/dL (3.7-5.3) L 08/09/17 06:34 Globulin 3.5 gm/dL 08/09/17 06:34 Albumin/Globulin Ratio 0.8 (1.0-1.8) L 08/09/17 06:34 Triglycerides 132 mg/dL (<150) 08/04/17 06:30 Cholesterol 55 mg/dL (<200) 08/04/17 06:30 LDL Cholesterol Direct 16 mg/dL (75-193) L 08/04/17 06:30 HDL Cholesterol 13 mg/dL (23-92) L 08/04/17 06:30 Amylase 12 U/L (29-103) L 08/02/17 13:43 Lipase 4 U/L (11-82) L 08/02/17 13:43 TSH 3.74 uIU/ml (0.34-5.60) 08/04/17 06:30 Stool Occult Blood POSITIVE (NEGATIVE) H 08/03/17 17:50 Random Vancomycin 14.8 ug/mL (5.0-40.0) 08/09/17 06:34 Hepatitis A IgM Ab Negative (Negative) 08/08/17 08:15 Hep Bs Antigen Negative (Negative) 08/08/17 08:15 Hep B Core IgM Ab Negative (Negative) 08/08/17 08:15 Hepatitis C Antibody <0.1 s/co ratio (0.0-0.9) 08/08/17 08:15 Blood Type A POSITIVE 08/02/17 20:54 Antibody Screen POSITIVE 08/02/17 20:54 Crossmatch See Detail 08/02/17 20:54 - Physical Exam Vitals and I&O: Vital Signs Temp 97.8 F 08/10/17 04:00 Pulse 124 08/10/17 07:23 Resp 16 08/10/17 07:00 BP 127/46 08/10/17 07:00 Pulse Ox 100 08/10/17 07:23 Intake & Output 08/09/17 08/10/17 08/10/17 18:59 06:59 18:59 Intake Total 854.421 391.85 Balance 854.421 391.85 Intake: Intake, IV Amount 854.421 391.85 Diltiazem 125 mg In 127.834 Dextrose 5% 100 ml @ 0 MG /HR IV TITR [facility] Rx#: [id number] KCL 20mEq/100mL Premix 20 100 meq In 100 ml @ 50 mls/ hr IV Q2H [facility] Rx#: [id number] Norepinephrine 8 mg In 526.587 341.85 Dextrose 5% 250 ml @ 0 MCG/MIN IV TITR PRN Rx#: [id number] Piperacillin Sodium/ 100 50 Tazobact 2.25 gm In Sodium Chloride 0.9% 50 ml @ 100 mls/hr IV Q6HR [facility] Rx#:[id number] Active Medications: Current Medications Acetaminophen (Tylenol 650mg/20.3ml Suspension) 650 mg GT DAILY [facility] Stop: 10/03/17 08:59 Last Admin: 08/09/17 10:04 Dose: 650 mg Albuterol/Ipratropium (Duoneb Neb) 3 ml HHN Q4HRT [facility] Stop: 10/02/17 10:59 Last Admin: 08/10/17 07:23 Dose: 3 ml Ascorbic Acid (Vitamin C) 500 mg PO DAILY [facility] Stop: 10/03/17 08:59 Last Admin: 08/09/17 10:03 Dose: 500 mg Aspirin (Aspirin Chewable) 81 mg GT DAILY [facility] Stop: 10/03/17 08:59 Last Admin: 08/09/17 10:03 Dose: 81 mg Atorvastatin Calcium (Lipitor) 40 mg GT HS [facility] Stop: 10/03/17 20:59 Last Admin: 08/09/17 20:50 Dose: 40 mg Bisacodyl (Dulcolax 10 Mg Supp) 10 mg RC Q72HR PRN PRN Reason: IF MOM INEFFECTIVE Stop: 10/02/17 14:13 Chlorhexidine Gluconate (Peridex) 15 ml MM 0800,1999 [facility] Stop: 10/02/17 07:59 Last Admin: 08/09/17 20:00 Dose: 15 ml Cholecalciferol (Vitamin D3) 1,000 iu GT DAILY [facility] Stop: 10/03/17 08:59 Last Admin: 08/09/17 10:02 Dose: 1,000 iu Diltiazem HCl (Cardizem) 5 mg IVP Q4H PRN PRN Reason: INCREASE HEART RATE Stop: 10/01/17 21:59 Last Admin: 08/06/17 14:50 Dose: 5 mg Docusate Sodium (Colace) 100 mg PO DAILY [facility] Stop: 10/03/17 08:59 Last Admin: 08/09/17 10:09 Dose: 100 mg Dopamine HCl/Dextrose (Dopamine) 400 mg in 250 mls @ 0 mls/hr IV TITR PRN; Protocol; Per Protocol PRN Reason: BP MAINTENANCE (PER PROTOCOL) Stop: 10/02/17 07:47 Norepinephrine Bitartrate 8 mg (/ Dextrose) 258 mls @ 0 mls/hr IV TITR PRN; Protocol; 0 MCG/MIN PRN Reason: BP MAINTENANCE (PER PROTOCOL) Stop: 10/05/17 13:59 Last Admin: 08/10/17 02:50 Dose: 22 mcg/min, 42.57 mls/hr Diltiazem HCl 125 mg/ Dextrose 125 mls @ 0 mls/hr IV TITR [facility]; 0 MG/HR PRN Reason: Protocol Stop: 10/05/17 14:59 Last Titration: 08/09/17 18:00 Dose: 5 mg/hr, 5 mls/hr Piperacillin Sod/Tazobactam (Sod 2.25 gm/ Sodium Chloride) 50 mls @ 100 mls/hr IV Q6HR [facility] Stop: 10/05/17 17:59 Last Admin: 08/10/17 05:34 Dose: 100 mls/hr Insulin Aspart (Novolog Insulin Sliding Scale) 0 units SUBQ Q6HR [facility] PRN Reason: Protocol Stop: 10/02/17 00:00 Last Admin: 08/10/17 05:50 Dose: 10 units Lactobacillus Rhamnosus (Culturelle 15b) 1 each PO DAILY FOUZIA Stop: 10/07/17 08:59 Last Admin: 08/09/17 10:02 Dose: 1 each Lorazepam (Ativan) 1 mg IVP Q2HR PRN; Protocol PRN Reason: Restlessness Stop: 10/01/17 21:18 Last Admin: 08/09/17 16:10 Dose: 1 mg Magnesium Hydroxide (Milk Of Magnesia) 30 ml GT Q72H PRN PRN Reason: NO BM FOR THREE DAYS Stop: 10/02/17 14:13 Mirtazapine (Remeron) 15 mg GT HS FOUZIA PRN Reason: Protocol Stop: 10/02/17 20:59 Last Admin: 08/09/17 20:50 Dose: 15 mg Miscellaneous (Clinical Monitoring) 1 ea MC PRN PRN PRN Reason: RENAL Stop: 10/05/17 11:28 Miscellaneous (Zosyn Iv Per Pharmacy) 1 [facility] PRN PRN PRN Reason: PROTOCOL Stop: 10/05/17 15:59 Miscellaneous (Probiotic Screen) 1 [facility] PRN PRN PRN Reason: PROTOCOL Stop: 10/06/17 14:14 Multivitamins/Vitamin C (Theragran) 1 tab PO DAILY FOUZIA Stop: 10/03/17 08:59 Last Admin: 08/09/17 10:03 Dose: 1 tab Ondansetron HCl (Zofran Odt) 4 mg PO Q6HR PRN PRN Reason: Nausea / Vomiting Stop: 10/02/17 14:13 Last Admin: 08/09/17 08:41 Dose: 4 mg Pantoprazole Sodium (Protonix) 40 mg IVP DAILY FOUZIA Stop: 10/02/17 08:59 Last Admin: 08/09/17 10:03 Dose: 40 mg Simethicone (Mylicon) 80 mg GT Q6H PRN PRN Reason: GAS PAIN Stop: 10/02/17 14:13 Sodium Phosphate (Fleet Enema) 118 ml RC PRN PRN PRN Reason: IF MOM/DULCOLAX INEFFECTIVE Stop: 10/02/17 14:13 Temazepam (Restoril) 15 mg GT HS PRN; Protocol PRN Reason: Insomnia Stop: 10/02/17 14:13 Last Admin: 08/09/17 22:20 Dose: 15 mg Zinc Sulfate (Zinc Sulfate) 220 mg GT DAILY FOUZIA Stop: 10/03/17 08:59 Last Admin: 08/09/17 10:02 Dose: 220 mg General: Alert, No acute distress (scattered rhonchi) HEENT: Atraumatic, PERRLA, EOMI, Mucous membr. moist/pink Neck: Supple, Other (TRACH) Cardiovascular: Regular rate Lungs: Other (few rhonchi) Abdomen: Bowel sounds, Soft, Other (INTACT GT) Extremities: Edema (upper wxtrmities), Other (upper ext) Neurological: Sensation intact Skin: no Rash Psych/Mental Status: Mood NL - Procedures Procedures: Procedures Procedure Code Date BLOOD TRANSFUSION SERVICE 74492 08/02/17 EXCISION OF STOMACH, ENDO, DIAGN [id number] 07/10/17 INSPECTION OF LOWER INTESTINAL TRACT, ENDO [id number] 07/10/17 PERFORMANCE OF URINARY FILTRATION, <6 HRS/DAY [id number] 07/10/17 RESPIRATORY VENTILATION, GREATER THAN 96 CONSECUTIVE HOURS [id number] 08/02/17 TRANSFUSE NONAUT RED BLOOD CELLS IN PERIPH VEIN, PERC 88909C5 08/02/17 Assessment/Plan - Assessment Assessment: 76 YO FEMALE WITH ANEMIA STOOL OB + NO OVERT GI BLEEDING BUT COULD BE SMALL BOWEL SOURCE RECENT EGD SHOWED GASTRITIS RECENT COLO SHOWED HEMORRHOIDS SBFT SHOWED REFLUX AND DELAYED TRANSIT WITHOUT OBSTRUCTION 1.FOLLOW H/H 2.IF GI BLEEDING OCCURS THEN GET BLEEDING SCAN VS ANGIOGRAPHY
[2017-08-10 08:39] LABS: GLUCOSE 290 mg/dL (70-105); MAGNESIUM 1.7 mg/dL (1.9-2.7)
[2017-08-10] MEDS: Chlorhexidine Gluconate 0.12% 15mL Mouthwash MM SCH ×2 (09:14→20:42)
[2017-08-10] MEDS: Aspirin 81mg Chewable Tab GT SCH (09:25)
[2017-08-10] MEDS: Multivitamin Tab PO SCH (09:25)
[2017-08-10] MEDS: Lactobacillus Rhamnosus GG 15 Billion CFU CAP.SPRINK PO SCH (09:25)
--- NOTE | 2017-08-10 14:00 | General Progress Note ---
Subjective - Review of Systems Events since last encounter: no distress no fever Objective - Results Result Diagrams: 08/10/17 04:30 08/10/17 04:30 Recent Labs: Laboratory Last Values WBC 14.5 Th/cmm (4.8-10.8) H 08/10/17 04:30 RBC 3.12 Mil/cmm (3.80-5.20) L 08/10/17 04:30 Hgb 9.3 gm/dL (12-16) L 08/10/17 04:30 Hct 28.5 % (41.0-60) L D 08/10/17 04:30 MCV 91.4 fl (81-100) 08/10/17 04:30 MCH 29.8 pg (27.0-31.0) 08/10/17 04:30 MCHC Differential 32.6 pg (28.0-36.0) 08/10/17 04:30 RDW 17.6 % (11.5-20.0) 08/10/17 04:30 Plt Count 236 Th/cmm (150-400) 08/10/17 04:30 MPV 12.0 fl 08/10/17 04:30 Neutrophils % 80.5 % (40.0-80.0) H 08/10/17 04:30 Band Neutrophils % 1 % (0-10) 08/09/17 06:34 Lymphocytes % 4.6 % (20.0-50.0) L 08/10/17 04:30 Monocytes % 11.8 % (2.0-10.0) H 08/10/17 04:30 Eosinophils % 3.1 % (0.0-5.0) 08/10/17 04:30 Basophils % 0.0 % (0.0-2.0) 08/10/17 04:30 Neutrophils (Manual) 86 % (40-80) H 08/09/17 06:34 Lymphocytes 5 % (20-50) L 08/09/17 06:34 Monocytes 5 % (2-10) 08/09/17 06:34 Eosinophils 3 % (0-5) 08/09/17 06:34 Basophils 1 % (0-3) 08/07/17 05:45 Hypochromia 1+ 08/02/17 15:37 Platelet Estimate ADEQUATE (NORMAL) 08/09/17 06:34 Platelet Morphology NORMAL (NORMAL) 08/02/17 15:37 Anisocytosis 1+ 08/07/17 05:45 Crenated Cell 2+ 08/02/17 15:37 RBC Morph Micro Appear ABNORMAL (NORMAL) 08/02/17 15:37 PT 12.9 SECONDS (9.5-11.5) H 08/02/17 13:58 INR 1.23 (0.5-1.4) 08/02/17 13:58 PTT (Actin FS) 33.6 SECONDS (26.0-38.0) 08/02/17 13:58 Specimen Source Arterial 08/03/17 08:58 Sample Site Right Radial 08/03/17 08:58 pH 7.42 (7.35-7.45) 08/03/17 08:58 pCO2 37.0 mmHg (35.0-45.0) 08/03/17 08:58 pO2 204.0 mmHg (80.0-100.0) H 08/03/17 08:58 HCO3 24.8 mEq/L (20.0-26.0) 08/03/17 08:58 Base Excess -0.2 mEq/L (-3.0-3.0) 08/03/17 08:58 O2 Saturation 100.0 % (92.0-100.0) 08/03/17 08:58 Rhett Test Positive 08/03/17 08:58 Vent Rate 12 08/03/17 08:58 Inspired O2 60 08/03/17 08:58 Tidal Volume 450 08/03/17 08:58 PEEP 5 08/03/17 08:58 Pressure (ins/psv/peep) NA 08/03/17 08:58 Critical Value LZHANG 08/03/17 08:58 Sodium 137 mEq/L (136-145) 08/10/17 04:30 Potassium 3.9 mEq/L (3.5-5.1) 08/10/17 04:30 Chloride 99 mEq/L (98-107) 08/10/17 04:30 Carbon Dioxide 28.0 mEq/L (21.0-31.0) 08/10/17 04:30 Anion Gap 13.9 (7.0-16.0) 08/10/17 04:30 BUN 38 mg/dL (7-25) H 08/10/17 04:30 Creatinine 2.6 mg/dL (0.6-1.2) H 08/10/17 04:30 Est GFR ( Amer) TNP 08/10/17 04:30 Est GFR (Non-Af Amer) TNP 08/10/17 04:30 BUN/Creatinine Ratio 14.6 08/10/17 04:30 Glucose 290 mg/dL (70-105) H 08/10/17 04:30 POC Glucose 300 MG/DL (70 - 105) H 08/10/17 12:09 Hemoglobin A1c % 7.7 % (4.0-6.0) H 08/02/17 15:37 Whole Bld Lactic Acid 1.97 mmol/L (0.60-1.99) 08/02/17 13:49 Calcium 8.3 mg/dL (8.6-10.3) L 08/10/17 04:30 Magnesium 1.7 mg/dL (1.9-2.7) L 08/10/17 04:30 Iron 10 ug/dL (27-139) L 08/02/17 13:56 TIBC 135 ug/dL (250-450) L 08/02/17 13:56 Iron Saturation 7 % (15-55) L 08/02/17 13:56 Unsaturated IBC 125 ug/dL (118-369) 08/02/17 13:56 Ferritin 588 ng/mL (15-150) H 08/02/17 13:56 Total Bilirubin 0.6 mg/dL (0.3-1.0) 08/09/17 06:34 Direct Bilirubin 0.09 mg/dL (0.0-0.2) 08/02/17 13:57 AST 21 U/L (13-39) 08/09/17 06:34 ALT 12 U/L (7-52) 08/09/17 06:34 Alkaline Phosphatase 91 U/L (34-104) 08/09/17 06:34 Troponin I 1.16 ng/mL (0.01-0.05) H* D 08/04/17 06:30 B-Natriuretic Peptide 372.0 pg/mL (5.0-100.0) H 08/05/17 06:15 Total Protein 6.4 gm/dL (6.0-8.3) 08/09/17 06:34 Albumin 2.9 gm/dL (3.7-5.3) L 08/09/17 06:34 Globulin 3.5 gm/dL 08/09/17 06:34 Albumin/Globulin Ratio 0.8 (1.0-1.8) L 08/09/17 06:34 Triglycerides 132 mg/dL (<150) 08/04/17 06:30 Cholesterol 55 mg/dL (<200) 08/04/17 06:30 LDL Cholesterol Direct 16 mg/dL (75-193) L 08/04/17 06:30 HDL Cholesterol 13 mg/dL (23-92) L 08/04/17 06:30 Amylase 12 U/L (29-103) L 08/02/17 13:43 Lipase 4 U/L (11-82) L 08/02/17 13:43 TSH 3.74 uIU/ml (0.34-5.60) 08/04/17 06:30 Stool Occult Blood POSITIVE (NEGATIVE) H 08/03/17 17:50 Random Vancomycin 14.8 ug/mL (5.0-40.0) 08/09/17 06:34 Hepatitis A IgM Ab Negative (Negative) 08/08/17 08:15 Hep Bs Antigen Negative (Negative) 08/08/17 08:15 Hep B Core IgM Ab Negative (Negative) 08/08/17 08:15 Hepatitis C Antibody <0.1 s/co ratio (0.0-0.9) 08/08/17 08:15 Blood Type A POSITIVE 08/02/17 20:54 Antibody Screen POSITIVE 08/02/17 20:54 Crossmatch See Detail 08/02/17 20:54 - Physical Exam Vitals and I&O: Vital Signs Temp 97.8 F 08/10/17 04:00 Pulse 83 08/10/17 11:29 Resp 16 08/10/17 07:00 BP 126/41 08/10/17 07:45 Pulse Ox 100 08/10/17 11:29 Intake & Output 08/09/17 08/10/17 08/10/17 18:59 06:59 18:59 Intake Total 854.421 501.85 258 Balance 854.421 501.85 258 Intake: Intake, IV Amount 854.421 501.85 258 Diltiazem 125 mg In 127.834 60 Dextrose 5% 100 ml @ 0 MG /HR IV TITR [facility] Rx#: [id number] KCL 20mEq/100mL Premix 20 100 meq In 100 ml @ 50 mls/ hr IV Q2H [facility] Rx#: [id number] Norepinephrine 8 mg In 526.587 341.85 258 Dextrose 5% 250 ml @ 0 MCG/MIN IV TITR PRN Rx#: [id number] Piperacillin Sodium/ 100 100 Tazobact 2.25 gm In Sodium Chloride 0.9% 50 ml @ 100 mls/hr IV Q6HR [facility] Rx#:[id number] Active Medications: Current Medications Acetaminophen (Tylenol 650mg/20.3ml Suspension) 650 mg GT DAILY [facility] Stop: 10/03/17 08:59 Last Admin: 08/10/17 09:24 Dose: 650 mg Albuterol/Ipratropium (Duoneb Neb) 3 ml HHN Q4HRT [facility] Stop: 10/02/17 10:59 Last Admin: 08/10/17 11:29 Dose: 3 ml Ascorbic Acid (Vitamin C) 500 mg PO DAILY [facility] Stop: 10/03/17 08:59 Last Admin: 08/10/17 09:25 Dose: 500 mg Aspirin (Aspirin Chewable) 81 mg GT DAILY [facility] Stop: 10/03/17 08:59 Last Admin: 08/10/17 09:25 Dose: 81 mg Atorvastatin Calcium (Lipitor) 40 mg GT HS [facility] Stop: 10/03/17 20:59 Last Admin: 08/09/17 20:50 Dose: 40 mg Bisacodyl (Dulcolax 10 Mg Supp) 10 mg RC Q72HR PRN PRN Reason: IF MOM INEFFECTIVE Stop: 10/02/17 14:13 Chlorhexidine Gluconate (Peridex) 15 ml MM 0800,2000 [facility] Stop: 10/02/17 07:59 Last Admin: 08/10/17 09:14 Dose: 15 ml Cholecalciferol (Vitamin D3) 1,000 iu GT DAILY [facility] Stop: 10/03/17 08:59 Last Admin: 08/10/17 09:25 Dose: 1,000 iu Diltiazem HCl (Cardizem) 5 mg IVP Q4H PRN PRN Reason: INCREASE HEART RATE Stop: 10/01/17 21:59 Last Admin: 08/06/17 14:50 Dose: 5 mg Docusate Sodium (Colace) 100 mg PO DAILY [facility] Stop: 10/03/17 08:59 Last Admin: 08/10/17 09:25 Dose: 100 mg Dopamine HCl/Dextrose (Dopamine) 400 mg in 250 mls @ 0 mls/hr IV TITR PRN; Protocol; Per Protocol PRN Reason: BP MAINTENANCE (PER PROTOCOL) Stop: 10/02/17 07:47 Norepinephrine Bitartrate 8 mg (/ Dextrose) 258 mls @ 0 mls/hr IV TITR PRN; Protocol; 0 MCG/MIN PRN Reason: BP MAINTENANCE (PER PROTOCOL) Stop: 10/05/17 13:59 Last Admin: 08/10/17 09:11 Dose: 19 mcg/min, 36.76 mls/hr Diltiazem HCl 125 mg/ Dextrose 125 mls @ 0 mls/hr IV TITR [facility]; 0 MG/HR PRN Reason: Protocol Stop: 10/05/17 14:59 Last Titration: 08/10/17 06:00 Dose: 5 mg/hr, 5 mls/hr Piperacillin Sod/Tazobactam (Sod 2.25 gm/ Sodium Chloride) 50 mls @ 100 mls/hr IV Q6HR [facility] Stop: 10/05/17 17:59 Last Admin: 08/10/17 12:47 Dose: 100 mls/hr Insulin Aspart (Novolog Insulin Sliding Scale) 0 units SUBQ Q6HR [facility] PRN Reason: Protocol Stop: 10/02/17 00:00 Last Admin: 08/10/17 12:48 Dose: 6 units Lactobacillus Rhamnosus (Culturelle 15b) 1 each PO DAILY [facility] Stop: 10/07/17 08:59 Last Admin: 08/10/17 09:25 Dose: 1 each Lorazepam (Ativan) 1 mg IVP Q2H PRN; Protocol PRN Reason: Restlessness Stop: 10/09/17 09:44 Last Admin: 08/10/17 10:13 Dose: 1 mg Magnesium Hydroxide (Milk Of Magnesia) 30 ml GT Q72H PRN PRN Reason: NO BM FOR THREE DAYS Stop: 10/02/17 14:13 Mirtazapine (Remeron) 15 mg GT HS [facility] PRN Reason: Protocol Stop: 10/02/17 20:59 Last Admin: 08/09/17 20:50 Dose: 15 mg Miscellaneous (Clinical Monitoring) 1 ea PRN PRN PRN Reason: RENAL Stop: 10/05/17 11:28 Miscellaneous (Zosyn Iv Per Pharmacy) 1 ea PRN PRN PRN Reason: PROTOCOL Stop: 10/05/17 15:59 Miscellaneous (Probiotic Screen) 1 ea PRN PRN PRN Reason: PROTOCOL Stop: 10/06/17 14:14 Multivitamins/Vitamin C (Theragran) 1 tab PO DAILY [facility] Stop: 10/03/17 08:59 Last Admin: 08/10/17 09:25 Dose: 1 tab Ondansetron HCl (Zofran Odt) 4 mg PO Q6HR PRN PRN Reason: Nausea / Vomiting Stop: 10/02/17 14:13 Last Admin: 08/09/17 08:41 Dose: 4 mg Pantoprazole Sodium (Protonix) 40 mg IVP DAILY [facility] Stop: 10/02/17 08:59 Last Admin: 08/10/17 09:25 Dose: 40 mg Simethicone (Mylicon) 80 mg GT Q6H PRN PRN Reason: GAS PAIN Stop: 10/02/17 14:13 Sodium Phosphate (Fleet Enema) 118 ml RC PRN PRN PRN Reason: IF MOM/DULCOLAX INEFFECTIVE Stop: 10/02/17 14:13 Temazepam (Restoril) 15 mg GT HS PRN; Protocol PRN Reason: Insomnia Stop: 10/02/17 14:13 Last Admin: 08/09/17 22:20 Dose: 15 mg Zinc Sulfate (Zinc Sulfate) 220 mg GT DAILY [facility] Stop: 10/03/17 08:59 Last Admin: 08/10/17 09:25 Dose: 220 mg General: Alert, No acute distress (scattered rhonchi) HEENT: Atraumatic, PERRLA, EOMI, Mucous membr. moist/pink Neck: Supple, Other (TRACH) Cardiovascular: Regular rate Lungs: Other (few rhonchi) Abdomen: Bowel sounds, Soft, Other (INTACT GT) Extremities: Edema (upper wxtrmities), Other (upper ext) Neurological: Sensation intact Skin: no Rash Psych/Mental Status: Mood NL - Procedures Procedures: Procedures Procedure Code Date BLOOD TRANSFUSION SERVICE 82288 08/02/17 EXCISION OF STOMACH, ENDO, DIAGN [id number] 07/10/17 INSPECTION OF LOWER INTESTINAL TRACT, ENDO [id number] 07/10/17 PERFORMANCE OF URINARY FILTRATION, <6 HRS/DAY [id number] 07/10/17 RESPIRATORY VENTILATION, GREATER THAN 96 CONSECUTIVE HOURS [id number] 08/02/17 TRANSFUSE NONAUT RED BLOOD CELLS IN PERIPH VEIN, PERC 64374E7 08/02/17 Nutritional Asmnt/Malnutr-PDOC - Dietary Evaluation Malnutrition Findings (Please click <Entered> for more info): Nutritional Asmnt/Malnutrition Start: 08/05/17 15: 53 Text: Status: Complete Freq: Document 08/05/17 15:53 HEN (Rec: 08/05/17 16:19 [facility] Nutritional Asmnt/Malnutrition Patient General Information Nutritional Screening High Risk Diagnosis sepsis, respiratory failure, ESRD Pertinent Medical Hx/Surgical Hx ESRD on HD, respiratory failure with tracheostomy, dysphagia, a fib, anemia, HTN, GERD Subjective Information Pt on vent, not able to interview. Pt was on TF Novosource Renal 30ml/hr continuous, NPO today for surgery. Pt has dialysis ordred per nurse note. Current Diet Order/ Nutrition Support NPO on 08/05 Pertinent Medications vit C, vit D3, colace, novolog , remeron, theragran, protonix , zinc Pertinent Labs 08/05 Na 134, K 3.6, Cl 102, BUN 77, Cr 4.2, Glucose 216, POC 224-233 08/02 A1c 7.7 Nutritional Hx/Data Height 1.6 m Height (Calculated Centimeters) 160.0 Current Weight (lbs) 87.543 kg Weight (Calculated Kilograms) 87.5 Weight (Calculated Grams) 50680.3 [place] Body Weight 115 Body Mass Index (BMI) 34.2 Weight Status Obese GI Symptoms GI Symptoms None Last BM 08/04 Difficult in: None Skin Integrity/Comment: reddened to left/right inner thigh, right lateral index finger, right/left arm; skin tear to left abdominal fold; pressure area to coccy/sacral Estimated Nutritional Goals BEE in Kcals: Adj wt of IBW Calories/Kcals/Kg 30-35 adj wt 61kg Kcals Calculated 0550-0251 Protein: Adj wt of IBW Protein g/k.2-1.4 Protein Calculated 73-85 Fluid: ml 1830-2135ml (1ml/kcal) Nutritional Problem 1. Problem Problem altered nutrition related lab values Etiology hx of ESRD, endocrine dysfunction Signs/Symptoms: BUN 77, Cr 4.2, Glucose 216, POC 224-233, A1c 7.7 Malnutrition Alert Protein-Calorie Malnutrition N/A Is there a minimum of two criteria No selected? Query Text:Check all the applicable criteria. A minimum of two criteria are recommended for diagnosis of either severe or non-severe malnutrition. Intervention/Recommendation Comments 1. Resume TF Novosource Renal 30ml/hr continuous as ordered. increase to goal rate of 40ml /hr continuous as tolerated. This will provide 1920kcal, 87g protein and 688ml free water, meeting 100% of nutritional needs 2. Monitor TF rate, tolerance, wt weekly, skin integrity and labs 3. F/U as high risk in 2-3 days, 08/07-3 Expected Outcomes/Goals Expected Outcomes/Goals 1. Pt to meet at least 75% of nutritional needs via nutrition support with tolerance 2. Wt stability, skin to remain intact, labs to approach WNL.
--- NOTE | 2017-08-10 15:18 | General Progress Note ---
Subjective - Review of Systems Service Date: 08/10/17 Subjective: more awake, interacting, on vent Objective - Results Result Diagrams: 08/10/17 04:30 08/10/17 04:30 Recent Labs: Laboratory Last Values WBC 14.5 Th/cmm (4.8-10.8) H 08/10/17 04:30 RBC 3.12 Mil/cmm (3.80-5.20) L 08/10/17 04:30 Hgb 9.3 gm/dL (12-16) L 08/10/17 04:30 Hct 28.5 % (41.0-60) L D 08/10/17 04:30 MCV 91.4 fl (81-100) 08/10/17 04:30 MCH 29.8 pg (27.0-31.0) 08/10/17 04:30 MCHC Differential 32.6 pg (28.0-36.0) 08/10/17 04:30 RDW 17.6 % (11.5-20.0) 08/10/17 04:30 Plt Count 236 Th/cmm (150-400) 08/10/17 04:30 MPV 12.0 fl 08/10/17 04:30 Neutrophils % 80.5 % (40.0-80.0) H 08/10/17 04:30 Band Neutrophils % 1 % (0-10) 08/09/17 06:34 Lymphocytes % 4.6 % (20.0-50.0) L 08/10/17 04:30 Monocytes % 11.8 % (2.0-10.0) H 08/10/17 04:30 Eosinophils % 3.1 % (0.0-5.0) 08/10/17 04:30 Basophils % 0.0 % (0.0-2.0) 08/10/17 04:30 Neutrophils (Manual) 86 % (40-80) H 08/09/17 06:34 Lymphocytes 5 % (20-50) L 08/09/17 06:34 Monocytes 5 % (2-10) 08/09/17 06:34 Eosinophils 3 % (0-5) 08/09/17 06:34 Basophils 1 % (0-3) 08/07/17 05:45 Hypochromia 1+ 08/02/17 15:37 Platelet Estimate ADEQUATE (NORMAL) 08/09/17 06:34 Platelet Morphology NORMAL (NORMAL) 08/02/17 15:37 Anisocytosis 1+ 08/07/17 05:45 Crenated Cell 2+ 08/02/17 15:37 RBC Morph Micro Appear ABNORMAL (NORMAL) 08/02/17 15:37 PT 12.9 SECONDS (9.5-11.5) H 08/02/17 13:58 INR 1.23 (0.5-1.4) 08/02/17 13:58 PTT (Actin FS) 33.6 SECONDS (26.0-38.0) 08/02/17 13:58 Specimen Source Arterial 08/03/17 08:58 Sample Site Right Radial 08/03/17 08:58 pH 7.42 (7.35-7.45) 08/03/17 08:58 pCO2 37.0 mmHg (35.0-45.0) 08/03/17 08:58 pO2 204.0 mmHg (80.0-100.0) H 08/03/17 08:58 HCO3 24.8 mEq/L (20.0-26.0) 08/03/17 08:58 Base Excess -0.2 mEq/L (-3.0-3.0) 08/03/17 08:58 O2 Saturation 100.0 % (92.0-100.0) 08/03/17 08:58 Rhett Test Positive 08/03/17 08:58 Vent Rate 12 08/03/17 08:58 Inspired O2 60 08/03/17 08:58 Tidal Volume 450 08/03/17 08:58 PEEP 5 08/03/17 08:58 Pressure (ins/psv/peep) NA 08/03/17 08:58 Critical Value LZHANG 08/03/17 08:58 Sodium 137 mEq/L (136-145) 08/10/17 04:30 Potassium 3.9 mEq/L (3.5-5.1) 08/10/17 04:30 Chloride 99 mEq/L (98-107) 08/10/17 04:30 Carbon Dioxide 28.0 mEq/L (21.0-31.0) 08/10/17 04:30 Anion Gap 13.9 (7.0-16.0) 08/10/17 04:30 BUN 38 mg/dL (7-25) H 08/10/17 04:30 Creatinine 2.6 mg/dL (0.6-1.2) H 08/10/17 04:30 Est GFR ( Amer) TNP 08/10/17 04:30 Est GFR (Non-Af Amer) TNP 08/10/17 04:30 BUN/Creatinine Ratio 14.6 08/10/17 04:30 Glucose 290 mg/dL (70-105) H 08/10/17 04:30 POC Glucose 300 MG/DL (70 - 105) H 08/10/17 12:09 Hemoglobin A1c % 7.7 % (4.0-6.0) H 08/02/17 15:37 Whole Bld Lactic Acid 1.97 mmol/L (0.60-1.99) 08/02/17 13:49 Calcium 8.3 mg/dL (8.6-10.3) L 08/10/17 04:30 Magnesium 1.7 mg/dL (1.9-2.7) L 08/10/17 04:30 Iron 10 ug/dL (27-139) L 08/02/17 13:56 TIBC 135 ug/dL (250-450) L 08/02/17 13:56 Iron Saturation 7 % (15-55) L 08/02/17 13:56 Unsaturated IBC 125 ug/dL (118-369) 08/02/17 13:56 Ferritin 588 ng/mL (15-150) H 08/02/17 13:56 Total Bilirubin 0.6 mg/dL (0.3-1.0) 08/09/17 06:34 Direct Bilirubin 0.09 mg/dL (0.0-0.2) 08/02/17 13:57 AST 21 U/L (13-39) 08/09/17 06:34 ALT 12 U/L (7-52) 08/09/17 06:34 Alkaline Phosphatase 91 U/L (34-104) 08/09/17 06:34 Troponin I 1.16 ng/mL (0.01-0.05) H* D 08/04/17 06:30 B-Natriuretic Peptide 372.0 pg/mL (5.0-100.0) H 08/05/17 06:15 Total Protein 6.4 gm/dL (6.0-8.3) 08/09/17 06:34 Albumin 2.9 gm/dL (3.7-5.3) L 08/09/17 06:34 Globulin 3.5 gm/dL 08/09/17 06:34 Albumin/Globulin Ratio 0.8 (1.0-1.8) L 08/09/17 06:34 Triglycerides 132 mg/dL (<150) 08/04/17 06:30 Cholesterol 55 mg/dL (<200) 08/04/17 06:30 LDL Cholesterol Direct 16 mg/dL (75-193) L 08/04/17 06:30 HDL Cholesterol 13 mg/dL (23-92) L 08/04/17 06:30 Amylase 12 U/L (29-103) L 08/02/17 13:43 Lipase 4 U/L (11-82) L 08/02/17 13:43 TSH 3.74 uIU/ml (0.34-5.60) 08/04/17 06:30 Stool Occult Blood POSITIVE (NEGATIVE) H 08/03/17 17:50 Random Vancomycin 14.8 ug/mL (5.0-40.0) 08/09/17 06:34 Hepatitis A IgM Ab Negative (Negative) 08/08/17 08:15 Hep Bs Antigen Negative (Negative) 08/08/17 08:15 Hep B Core IgM Ab Negative (Negative) 08/08/17 08:15 Hepatitis C Antibody <0.1 s/co ratio (0.0-0.9) 08/08/17 08:15 Blood Type A POSITIVE 08/02/17 20:54 Antibody Screen POSITIVE 08/02/17 20:54 Crossmatch See Detail 08/02/17 20:54 - Physical Exam Vitals and I&O: Vital Signs Temp 97.8 F 08/10/17 12:00 Pulse 86 08/10/17 14:38 Resp 20 08/10/17 13:00 BP 145/46 08/10/17 13:45 Pulse Ox 100 08/10/17 14:38 Intake & Output 08/09/17 08/10/17 08/10/17 18:59 06:59 18:59 Intake Total 854.421 501.85 258 Balance 854.421 501.85 258 Intake: Intake, IV Amount 854.421 501.85 258 Diltiazem 125 mg In 127.834 60 Dextrose 5% 100 ml @ 0 MG /HR IV TITR [facility] Rx#: [id number] KCL 20mEq/100mL Premix 20 100 meq In 100 ml @ 50 mls/ hr IV Q2H [facility] Rx#: [id number] Norepinephrine 8 mg In 526.587 341.85 258 Dextrose 5% 250 ml @ 0 MCG/MIN IV TITR PRN Rx#: [id number] Piperacillin Sodium/ 100 100 Tazobact 2.25 gm In Sodium Chloride 0.9% 50 ml @ 100 mls/hr IV Q6HR [facility] Rx#:[id number] Active Medications: Current Medications Acetaminophen (Tylenol 650mg/20.3ml Suspension) 650 mg GT DAILY [facility] Stop: 10/03/17 08:59 Last Admin: 08/10/17 09:24 Dose: 650 mg Albuterol/Ipratropium (Duoneb Neb) 3 ml HHN Q4HRT [facility] Stop: 10/02/17 10:59 Last Admin: 08/10/17 14:35 Dose: 3 ml Ascorbic Acid (Vitamin C) 500 mg PO DAILY [facility] Stop: 10/03/17 08:59 Last Admin: 08/10/17 09:25 Dose: 500 mg Aspirin (Aspirin Chewable) 81 mg GT DAILY [facility] Stop: 10/03/17 08:59 Last Admin: 08/10/17 09:25 Dose: 81 mg Atorvastatin Calcium (Lipitor) 40 mg GT HS [facility] Stop: 10/03/17 20:59 Last Admin: 08/09/17 20:50 Dose: 40 mg Bisacodyl (Dulcolax 10 Mg Supp) 10 mg RC Q72HR PRN PRN Reason: IF MOM INEFFECTIVE Stop: 10/02/17 14:13 Chlorhexidine Gluconate (Peridex) 15 ml MM 0800,2000 [facility] Stop: 10/02/17 07:59 Last Admin: 08/10/17 09:14 Dose: 15 ml Cholecalciferol (Vitamin D3) 1,000 iu GT DAILY [facility] Stop: 10/03/17 08:59 Last Admin: 08/10/17 09:25 Dose: 1,000 iu Diltiazem HCl (Cardizem) 5 mg IVP Q4H PRN PRN Reason: INCREASE HEART RATE Stop: 10/01/17 21:59 Last Admin: 08/06/17 14:50 Dose: 5 mg Docusate Sodium (Colace) 100 mg PO DAILY [facility] Stop: 10/03/17 08:59 Last Admin: 08/10/17 09:25 Dose: 100 mg Dopamine HCl/Dextrose (Dopamine) 400 mg in 250 mls @ 0 mls/hr IV TITR PRN; Protocol; Per Protocol PRN Reason: BP MAINTENANCE (PER PROTOCOL) Stop: 10/02/17 07:47 Norepinephrine Bitartrate 8 mg (/ Dextrose) 258 mls @ 0 mls/hr IV TITR PRN; Protocol; 0 MCG/MIN PRN Reason: BP MAINTENANCE (PER PROTOCOL) Stop: 10/05/17 13:59 Last Admin: 08/10/17 09:11 Dose: 19 mcg/min, 36.76 mls/hr Diltiazem HCl 125 mg/ Dextrose 125 mls @ 0 mls/hr IV TITR [facility]; 0 MG/HR PRN Reason: Protocol Stop: 10/05/17 14:59 Last Titration: 08/10/17 06:00 Dose: 5 mg/hr, 5 mls/hr Piperacillin Sod/Tazobactam (Sod 2.25 gm/ Sodium Chloride) 50 mls @ 100 mls/hr IV Q6HR [facility] Stop: 10/05/17 17:59 Last Admin: 08/10/17 12:47 Dose: 100 mls/hr Insulin Aspart (Novolog Insulin Sliding Scale) 0 units SUBQ Q6HR [facility] PRN Reason: Protocol Stop: 10/02/17 00:00 Last Admin: 08/10/17 12:48 Dose: 6 units Lactobacillus Rhamnosus (Culturelle 15b) 1 each PO DAILY [facility] Stop: 10/07/17 08:59 Last Admin: 08/10/17 09:25 Dose: 1 each Lorazepam (Ativan) 1 mg IVP Q2H PRN; Protocol PRN Reason: Restlessness Stop: 10/09/17 09:44 Last Admin: 08/10/17 14:40 Dose: 1 mg Magnesium Hydroxide (Milk Of Magnesia) 30 ml GT Q72H PRN PRN Reason: NO BM FOR THREE DAYS Stop: 10/02/17 14:13 Mirtazapine (Remeron) 15 mg GT HS [facility] PRN Reason: Protocol Stop: 10/02/17 20:59 Last Admin: 08/09/17 20:50 Dose: 15 mg Miscellaneous (Clinical Monitoring) 1 ea PRN PRN PRN Reason: RENAL Stop: 10/05/17 11:28 Miscellaneous (Zosyn Iv Per Pharmacy) 1 ea PRN PRN PRN Reason: PROTOCOL Stop: 10/05/17 15:59 Miscellaneous (Probiotic Screen) 1 ea PRN PRN PRN Reason: PROTOCOL Stop: 10/06/17 14:14 Multivitamins/Vitamin C (Theragran) 1 tab PO DAILY [facility] Stop: 10/03/17 08:59 Last Admin: 08/10/17 09:25 Dose: 1 tab Ondansetron HCl (Zofran Odt) 4 mg PO Q6HR PRN PRN Reason: Nausea / Vomiting Stop: 10/02/17 14:13 Last Admin: 08/09/17 08:41 Dose: 4 mg Pantoprazole Sodium (Protonix) 40 mg IVP DAILY [facility] Stop: 10/02/17 08:59 Last Admin: 08/10/17 09:25 Dose: 40 mg Simethicone (Mylicon) 80 mg GT Q6H PRN PRN Reason: GAS PAIN Stop: 10/02/17 14:13 Sodium Phosphate (Fleet Enema) 118 ml RC PRN PRN PRN Reason: IF MOM/DULCOLAX INEFFECTIVE Stop: 10/02/17 14:13 Temazepam (Restoril) 15 mg GT HS PRN; Protocol PRN Reason: Insomnia Stop: 10/02/17 14:13 Last Admin: 08/09/17 22:20 Dose: 15 mg Zinc Sulfate (Zinc Sulfate) 220 mg GT DAILY [facility] Stop: 10/03/17 08:59 Last Admin: 08/10/17 09:25 Dose: 220 mg General: Alert, No acute distress (scattered rhonchi) HEENT: Atraumatic, PERRLA, EOMI, Mucous membr. moist/pink Neck: Supple, Other (TRACH) Cardiovascular: Regular rate Lungs: Other (few rhonchi) Abdomen: Bowel sounds, Soft, Other (INTACT GT) Extremities: Edema (upper wxtrmities), Other (upper ext) Neurological: Sensation intact Skin: no Rash Psych/Mental Status: Mood NL - Procedures Procedures: Procedures Procedure Code Date BLOOD TRANSFUSION SERVICE 04142 08/02/17 EXCISION OF STOMACH, ENDO, DIAGN [id number] 07/10/17 INSPECTION OF LOWER INTESTINAL TRACT, ENDO [id number] 07/10/17 PERFORMANCE OF URINARY FILTRATION, <6 HRS/DAY [id number] 07/10/17 RESPIRATORY VENTILATION, GREATER THAN 96 CONSECUTIVE HOURS [id number] 08/02/17 TRANSFUSE NONAUT RED BLOOD CELLS IN PERIPH VEIN, PERC [id number] 08/02/17 Assessment/Plan - Assessment Assessment: 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/L UE Edema, Cellulitis Shock Sepsis RF on Vent Acute on Chronic Decomp CHF G (-) Septicemia - Plan Plan: Lab - Result Diagrams 08/04/17 06:30 08/04/17 06:30 Current Medications Acetaminophen (Tylenol 650mg/20.3ml Suspension) 650 mg GT DAILY [facility] Stop: 10/03/17 08:59 Last Admin: 08/04/17 09:18 Dose: 650 mg Albuterol/Ipratropium (Duoneb Neb) 3 ml HHN Q4HRT [facility] Stop: 10/02/17 10:59 Last Admin: 08/04/17 11:25 Dose: 3 ml Ascorbic Acid (Vitamin C) 500 mg PO DAILY [facility] Stop: 10/03/17 08:59 Last Admin: 08/04/17 09:18 Dose: 500 mg Aspirin (Aspirin Chewable) 81 mg GT DAILY [facility] Stop: 10/03/17 08:59 Last Admin: 08/04/17 09:18 Dose: 81 mg Atorvastatin Calcium (Lipitor) 40 mg GT HS [facility] PRN Reason: Protocol Stop: 10/02/17 20:59 Last Admin: 08/03/17 20:19 Dose: 40 mg Bisacodyl (Dulcolax 10 Mg Supp) 10 mg RC Q72HR PRN PRN Reason: IF MOM INEFFECTIVE Stop: 10/02/17 14:13 Bisacodyl (Dulcolax 10 Mg Supp) 10 mg RC PRN PRN PRN Reason: IF MOM INEFFECTIVE Stop: 10/02/17 14:13 Chlorhexidine Gluconate (Peridex) 15 ml MM 0800,2000 [facility] Stop: 10/02/17 07:59 Last Admin: 08/04/17 08:00 Dose: 15 ml Cholecalciferol (Vitamin D3) 1,000 iu GT DAILY [facility] Stop: 10/03/17 08:59 Last Admin: 08/04/17 09:18 Dose: 1,000 iu Diltiazem HCl (Cardizem) 5 mg IVP Q4H PRN PRN Reason: INCREASE HEART RATE Stop: 10/01/17 21:59 Last Admin: 08/03/17 01:38 Dose: 5 mg Docusate Sodium (Colace) 100 mg PO DAILY [facility] Stop: 10/03/17 08:59 Last Admin: 08/04/17 09:18 Dose: 100 mg Heparin Sodium (Porcine) (Heparin) 5,000 units HD UD [facility] Stop: 08/05/17 08:59 Last Admin: 08/04/17 09:19 Dose: Not Given Fluconazole (Diflucan) 200 mg in 100 mls @ 100 mls/hr IV Q24HR [facility] Stop: 10/02/17 14:59 Last Infusion: 08/03/17 15:40 Dose: Infused Meropenem 500 mg/ Sodium (Chloride) 100 mls @ 100 mls/hr IV Q24H [facility] Stop: 10/02/17 12:59 Last Admin: 08/04/17 13:17 Dose: 100 mls/hr Dopamine HCl/Dextrose (Dopamine) 400 mg in 250 mls @ 0 mls/hr IV TITR PRN; Protocol; Per Protocol PRN Reason: BP MAINTENANCE (PER PROTOCOL) Stop: 10/02/17 07:47 Norepinephrine Bitartrate 4 mg (/ Dextrose) 254 mls @ 0 mls/hr IV TITR PRN; Protocol; Per Protocol PRN Reason: BP MAINTENANCE (PER PROTOCOL) Stop: 10/02/17 08:31 Last Admin: 08/03/17 23:47 Dose: 4 mcg/min, 15.24 mls/hr Colistimethate Sodium 80 mg/ (Sodium Chloride) 100 mls @ 100 mls/hr IV Q36H [facility] Stop: 10/02/17 20:59 Last Infusion: 08/03/17 21:20 Dose: Infused Insulin Aspart (Novolog Insulin Sliding Scale) 0 units SUBQ Q6HR [facility] PRN Reason: Protocol Stop: 10/02/17 00:00 Last Admin: 08/04/17 11:30 Dose: 6 units Lorazepam (Ativan) 1 mg IVP Q2HR PRN; Protocol PRN Reason: Restlessness Stop: 10/01/17 21:18 Last Admin: 08/04/17 01:05 Dose: 1 mg Magnesium Hydroxide (Milk Of Magnesia) 30 ml GT Q72H PRN PRN Reason: NO BM FOR THREE DAYS Stop: 10/02/17 14:13 Mirtazapine (Remeron) 15 mg GT HS [facility] PRN Reason: Protocol Stop: 10/02/17 20:59 Last Admin: 08/03/17 20:19 Dose: 15 mg Miscellaneous (Vancomycin Iv Per Pharmacy) 1 ea PRN PRN PRN Reason: PROTOCOL Stop: 10/01/17 20:42 Miscellaneous (Zosyn Iv Per Pharmacy) 1 ea PRN PRN PRN Reason: PROTOCOL Stop: 10/01/17 20:42 Multivitamins/Vitamin C (Theragran) 1 tab PO DAILY [facility] Stop: 10/03/17 08:59 Last Admin: 08/04/17 09:18 Dose: 1 tab Ondansetron HCl (Zofran Odt) 4 mg PO Q6HR PRN PRN Reason: Nausea / Vomiting Stop: 10/02/17 14:13 Pantoprazole Sodium (Protonix) 40 mg IVP DAILY [facility] Stop: 10/02/17 08:59 Last Admin: 08/04/17 09:18 Dose: 40 mg Simethicone (Mylicon) 80 mg GT Q6H PRN PRN Reason: GAS PAIN Stop: 10/02/17 14:13 Sodium Phosphate (Fleet Enema) 118 ml RC PRN PRN PRN Reason: IF MOM/DULCOLAX INEFFECTIVE Stop: 10/02/17 14:13 Temazepam (Restoril) 15 mg GT HS PRN; Protocol PRN Reason: Insomnia Stop: 10/02/17 14:13 Last Admin: 08/03/17 20:19 Dose: 15 mg Zinc Sulfate (Zinc Sulfate) 220 mg GT DAILY [facility] Stop: 10/03/17 08:59 Last Admin: 08/04/17 09:18 Dose: 220 Lab - Result Diagrams 08/10/17 04:30 08/10/17 04:30 tolerated dialysis Venous & Arterial duplex scans were negative for DVT or clots CXR still showed b/l effusions replace K f/u electrolytes. cbc Nutritional Asmnt/Malnutr-PDOC - Dietary Evaluation Malnutrition Findings (Please click <Entered> for more info): Nutritional Asmnt/Malnutrition Start: 08/05/17 15: 53 Text: Status: Complete Freq: Document 08/05/17 15:53 HEIDY (Rec: 08/05/17 16:19 HEIDY [id number]) Nutritional Asmnt/Malnutrition Patient General Information Nutritional Screening High Risk Diagnosis sepsis, respiratory failure, ESRD Pertinent Medical Hx/Surgical Hx ESRD on HD, respiratory failure with tracheostomy, dysphagia, a fib, anemia, HTN, GERD Subjective Information Pt on vent, not able to interview. Pt was on TF Novosource Renal 30ml/hr continuous, NPO today for surgery. Pt has dialysis ordred per nurse note. Current Diet Order/ Nutrition Support NPO on 08/05 Pertinent Medications vit C, vit D3, colace, novolog , remeron, theragran, protonix , zinc Pertinent Labs 08/05 Na 134, K 3.6, Cl 102, BUN 77, Cr 4.2, Glucose 216, POC 224-233 08/02 A1c 7.7 Nutritional Hx/Data Height 1.6 m Height (Calculated Centimeters) 160.0 Current Weight (lbs) 87.543 kg Weight (Calculated Kilograms) 87.5 Weight (Calculated Grams) 06903.3 [place] Body Weight 115 Body Mass Index (BMI) 34.2 Weight Status Obese GI Symptoms GI Symptoms None Last BM 08/04 Difficult in: None Skin Integrity/Comment: reddened to left/right inner thigh, right lateral index finger, right/left arm; skin tear to left abdominal fold; pressure area to coccy/sacral Estimated Nutritional Goals BEE in Kcals: Adj wt of IBW Calories/Kcals/Kg 30-35 adj wt 61kg Kcals Calculated 2981-1638 Protein: Adj wt of IBW Protein g/k.2-1.4 Protein Calculated 73-85 Fluid: ml 1830-2135ml (1ml/kcal) Nutritional Problem 1. Problem Problem altered nutrition related lab values Etiology hx of ESRD, endocrine dysfunction Signs/Symptoms: BUN 77, Cr 4.2, Glucose 216, POC 224-233, A1c 7.7 Malnutrition Alert Protein-Calorie Malnutrition N/A Is there a minimum of two criteria No selected? Query Text:Check all the applicable criteria. A minimum of two criteria are recommended for diagnosis of either severe or non-severe malnutrition. Intervention/Recommendation Comments 1. Resume TF Novosource Renal 30ml/hr continuous as ordered. increase to goal rate of 40ml /hr continuous as tolerated. This will provide 1920kcal, 87g protein and 688ml free water, meeting 100% of nutritional needs 2. Monitor TF rate, tolerance, wt weekly, skin integrity and labs 3. F/U as high risk in 2-3 days, 08/07-08/08 Expected Outcomes/Goals Expected Outcomes/Goals 1. Pt to meet at least 75% of nutritional needs via nutrition support with tolerance 2. Wt stability, skin to remain intact, labs to approach WNL.
--- NOTE | 2017-08-10 17:19 | Infectious Disease Prog Note ---
Infectious Disease Subjective - Review of Systems Service Date: 08/10/17 Subjective: no fever. Infectious Disease Objective - Results Result Diagrams: 08/10/17 04:30 08/10/17 04:30 Recent Labs: Laboratory Last Values WBC 14.5 Th/cmm (4.8-10.8) H 08/10/17 04:30 RBC 3.12 Mil/cmm (3.80-5.20) L 08/10/17 04:30 Hgb 9.3 gm/dL (12-16) L 08/10/17 04:30 Hct 28.5 % (41.0-60) L D 08/10/17 04:30 MCV 91.4 fl (81-100) 08/10/17 04:30 MCH 29.8 pg (27.0-31.0) 08/10/17 04:30 MCHC Differential 32.6 pg (28.0-36.0) 08/10/17 04:30 RDW 17.6 % (11.5-20.0) 08/10/17 04:30 Plt Count 236 Th/cmm (150-400) 08/10/17 04:30 MPV 12.0 fl 08/10/17 04:30 Neutrophils % 80.5 % (40.0-80.0) H 08/10/17 04:30 Band Neutrophils % 1 % (0-10) 08/09/17 06:34 Lymphocytes % 4.6 % (20.0-50.0) L 08/10/17 04:30 Monocytes % 11.8 % (2.0-10.0) H 08/10/17 04:30 Eosinophils % 3.1 % (0.0-5.0) 08/10/17 04:30 Basophils % 0.0 % (0.0-2.0) 08/10/17 04:30 Neutrophils (Manual) 86 % (40-80) H 08/09/17 06:34 Lymphocytes 5 % (20-50) L 08/09/17 06:34 Monocytes 5 % (2-10) 08/09/17 06:34 Eosinophils 3 % (0-5) 08/09/17 06:34 Basophils 1 % (0-3) 08/07/17 05:45 Hypochromia 1+ 08/02/17 15:37 Platelet Estimate ADEQUATE (NORMAL) 08/09/17 06:34 Platelet Morphology NORMAL (NORMAL) 08/02/17 15:37 Anisocytosis 1+ 08/07/17 05:45 Crenated Cell 2+ 08/02/17 15:37 RBC Morph Micro Appear ABNORMAL (NORMAL) 08/02/17 15:37 PT 12.9 SECONDS (9.5-11.5) H 08/02/17 13:58 INR 1.23 (0.5-1.4) 08/02/17 13:58 PTT (Actin FS) 33.6 SECONDS (26.0-38.0) 08/02/17 13:58 Specimen Source Arterial 08/03/17 08:58 Sample Site Right Radial 08/03/17 08:58 pH 7.42 (7.35-7.45) 08/03/17 08:58 pCO2 37.0 mmHg (35.0-45.0) 08/03/17 08:58 pO2 204.0 mmHg (80.0-100.0) H 08/03/17 08:58 HCO3 24.8 mEq/L (20.0-26.0) 08/03/17 08:58 Base Excess -0.2 mEq/L (-3.0-3.0) 08/03/17 08:58 O2 Saturation 100.0 % (92.0-100.0) 08/03/17 08:58 Rhett Test Positive 08/03/17 08:58 Vent Rate 12 08/03/17 08:58 Inspired O2 60 08/03/17 08:58 Tidal Volume 450 08/03/17 08:58 PEEP 5 08/03/17 08:58 Pressure (ins/psv/peep) NA 08/03/17 08:58 Critical Value LZHANG 08/03/17 08:58 Sodium 137 mEq/L (136-145) 08/10/17 04:30 Potassium 3.9 mEq/L (3.5-5.1) 08/10/17 04:30 Chloride 99 mEq/L (98-107) 08/10/17 04:30 Carbon Dioxide 28.0 mEq/L (21.0-31.0) 08/10/17 04:30 Anion Gap 13.9 (7.0-16.0) 08/10/17 04:30 BUN 38 mg/dL (7-25) H 08/10/17 04:30 Creatinine 2.6 mg/dL (0.6-1.2) H 08/10/17 04:30 Est GFR ( Amer) TNP 08/10/17 04:30 Est GFR (Non-Af Amer) TNP 08/10/17 04:30 BUN/Creatinine Ratio 14.6 08/10/17 04:30 Glucose 290 mg/dL (70-105) H 08/10/17 04:30 POC Glucose 300 MG/DL (70 - 105) H 08/10/17 12:09 Hemoglobin A1c % 7.7 % (4.0-6.0) H 08/02/17 15:37 Whole Bld Lactic Acid 1.97 mmol/L (0.60-1.99) 08/02/17 13:49 Calcium 8.3 mg/dL (8.6-10.3) L 08/10/17 04:30 Magnesium 1.7 mg/dL (1.9-2.7) L 08/10/17 04:30 Iron 10 ug/dL (27-139) L 08/02/17 13:56 TIBC 135 ug/dL (250-450) L 08/02/17 13:56 Iron Saturation 7 % (15-55) L 08/02/17 13:56 Unsaturated IBC 125 ug/dL (118-369) 08/02/17 13:56 Ferritin 588 ng/mL (15-150) H 08/02/17 13:56 Total Bilirubin 0.6 mg/dL (0.3-1.0) 08/09/17 06:34 Direct Bilirubin 0.09 mg/dL (0.0-0.2) 08/02/17 13:57 AST 21 U/L (13-39) 08/09/17 06:34 ALT 12 U/L (7-52) 08/09/17 06:34 Alkaline Phosphatase 91 U/L (34-104) 08/09/17 06:34 Troponin I 1.16 ng/mL (0.01-0.05) H* D 08/04/17 06:30 B-Natriuretic Peptide 372.0 pg/mL (5.0-100.0) H 08/05/17 06:15 Total Protein 6.4 gm/dL (6.0-8.3) 08/09/17 06:34 Albumin 2.9 gm/dL (3.7-5.3) L 08/09/17 06:34 Globulin 3.5 gm/dL 08/09/17 06:34 Albumin/Globulin Ratio 0.8 (1.0-1.8) L 08/09/17 06:34 Triglycerides 132 mg/dL (<150) 08/04/17 06:30 Cholesterol 55 mg/dL (<200) 08/04/17 06:30 LDL Cholesterol Direct 16 mg/dL (75-193) L 08/04/17 06:30 HDL Cholesterol 13 mg/dL (23-92) L 08/04/17 06:30 Amylase 12 U/L (29-103) L 08/02/17 13:43 Lipase 4 U/L (11-82) L 08/02/17 13:43 TSH 3.74 uIU/ml (0.34-5.60) 08/04/17 06:30 Stool Occult Blood POSITIVE (NEGATIVE) H 08/03/17 17:50 Random Vancomycin 14.8 ug/mL (5.0-40.0) 08/09/17 06:34 Hepatitis A IgM Ab Negative (Negative) 08/08/17 08:15 Hep Bs Antigen Negative (Negative) 08/08/17 08:15 Hep B Core IgM Ab Negative (Negative) 08/08/17 08:15 Hepatitis C Antibody <0.1 s/co ratio (0.0-0.9) 08/08/17 08:15 Blood Type A POSITIVE 08/02/17 20:54 Antibody Screen POSITIVE 08/02/17 20:54 Crossmatch See Detail 08/02/17 20:54 - Physical Exam Vitals and I&O: Vital Signs Temp 97.8 F 08/10/17 12:00 Pulse 85 08/10/17 17:05 Resp 20 08/10/17 13:00 BP 145/46 08/10/17 13:45 Pulse Ox 100 08/10/17 17:05 Intake & Output 08/09/17 08/10/17 08/10/17 18:59 06:59 18:59 Intake Total 854.421 501.85 258 Balance 854.421 501.85 258 Intake: Intake, IV Amount 854.421 501.85 258 Diltiazem 125 mg In 127.834 60 Dextrose 5% 100 ml @ 0 MG /HR IV TITR [facility] Rx#: [id number] KCL 20mEq/100mL Premix 20 100 meq In 100 ml @ 50 mls/ hr IV Q2H [facility] Rx#: [id number] Norepinephrine 8 mg In 526.587 341.85 258 Dextrose 5% 250 ml @ 0 MCG/MIN IV TITR PRN Rx#: [id number] Piperacillin Sodium/ 100 100 Tazobact 2.25 gm In Sodium Chloride 0.9% 50 ml @ 100 mls/hr IV Q6HR [facility] Rx#:[id number] Active Medications: Current Medications Acetaminophen (Tylenol 650mg/20.3ml Suspension) 650 mg GT DAILY [facility] Stop: 10/03/17 08:59 Last Admin: 08/10/17 09:24 Dose: 650 mg Albuterol/Ipratropium (Duoneb Neb) 3 ml HHN Q4HRT [facility] Stop: 10/02/17 10:59 Last Admin: 08/10/17 14:35 Dose: 3 ml Ascorbic Acid (Vitamin C) 500 mg PO DAILY [facility] Stop: 10/03/17 08:59 Last Admin: 08/10/17 09:25 Dose: 500 mg Aspirin (Aspirin Chewable) 81 mg GT DAILY [facility] Stop: 10/03/17 08:59 Last Admin: 08/10/17 09:25 Dose: 81 mg Atorvastatin Calcium (Lipitor) 40 mg GT HS [facility] Stop: 10/03/17 20:59 Last Admin: 08/09/17 20:50 Dose: 40 mg Bisacodyl (Dulcolax 10 Mg Supp) 10 mg RC Q72HR PRN PRN Reason: IF MOM INEFFECTIVE Stop: 10/02/17 14:13 Chlorhexidine Gluconate (Peridex) 15 ml MM 0800,2000 [facility] Stop: 10/02/17 07:59 Last Admin: 08/10/17 09:14 Dose: 15 ml Cholecalciferol (Vitamin D3) 1,000 iu GT DAILY [facility] Stop: 10/03/17 08:59 Last Admin: 08/10/17 09:25 Dose: 1,000 iu Diltiazem HCl (Cardizem) 5 mg IVP Q4H PRN PRN Reason: INCREASE HEART RATE Stop: 10/01/17 21:59 Last Admin: 08/06/17 14:50 Dose: 5 mg Docusate Sodium (Colace) 100 mg PO DAILY [facility] Stop: 10/03/17 08:59 Last Admin: 08/10/17 09:25 Dose: 100 mg Dopamine HCl/Dextrose (Dopamine) 400 mg in 250 mls @ 0 mls/hr IV TITR PRN; Protocol; Per Protocol PRN Reason: BP MAINTENANCE (PER PROTOCOL) Stop: 10/02/17 07:47 Norepinephrine Bitartrate 8 mg (/ Dextrose) 258 mls @ 0 mls/hr IV TITR PRN; Protocol; 0 MCG/MIN PRN Reason: BP MAINTENANCE (PER PROTOCOL) Stop: 10/05/17 13:59 Last Admin: 08/10/17 09:11 Dose: 19 mcg/min, 36.76 mls/hr Diltiazem HCl 125 mg/ Dextrose 125 mls @ 0 mls/hr IV TITR [facility]; 0 MG/HR PRN Reason: Protocol Stop: 10/05/17 14:59 Last Titration: 08/10/17 06:00 Dose: 5 mg/hr, 5 mls/hr Piperacillin Sod/Tazobactam (Sod 2.25 gm/ Sodium Chloride) 50 mls @ 100 mls/hr IV Q6HR [facility] Stop: 10/05/17 17:59 Last Admin: 08/10/17 12:47 Dose: 100 mls/hr Insulin Aspart (Novolog Insulin Sliding Scale) 0 units SUBQ Q6HR [facility] PRN Reason: Protocol Stop: 10/02/17 00:00 Last Admin: 08/10/17 12:48 Dose: 6 units Lactobacillus Rhamnosus (Culturelle 15b) 1 each PO DAILY [facility] Stop: 10/07/17 08:59 Last Admin: 08/10/17 09:25 Dose: 1 each Lorazepam (Ativan) 1 mg IVP Q2H PRN; Protocol PRN Reason: Restlessness Stop: 10/09/17 09:44 Last Admin: 08/10/17 14:40 Dose: 1 mg Magnesium Hydroxide (Milk Of Magnesia) 30 ml GT Q72H PRN PRN Reason: NO BM FOR THREE DAYS Stop: 10/02/17 14:13 Mirtazapine (Remeron) 15 mg GT HS [facility] PRN Reason: Protocol Stop: 10/02/17 20:59 Last Admin: 08/09/17 20:50 Dose: 15 mg Miscellaneous (Clinical Monitoring) 1 ea PRN PRN PRN Reason: RENAL Stop: 10/05/17 11:28 Miscellaneous (Zosyn Iv Per Pharmacy) 1 [facility] PRN PRN PRN Reason: PROTOCOL Stop: 10/05/17 15:59 Miscellaneous (Probiotic Screen) 1 [facility] PRN PRN PRN Reason: PROTOCOL Stop: 10/06/17 14:14 Multivitamins/Vitamin C (Theragran) 1 tab PO DAILY [facility] Stop: 10/03/17 08:59 Last Admin: 08/10/17 09:25 Dose: 1 tab Ondansetron HCl (Zofran Odt) 4 mg PO Q6HR PRN PRN Reason: Nausea / Vomiting Stop: 10/02/17 14:13 Last Admin: 08/09/17 08:41 Dose: 4 mg Pantoprazole Sodium (Protonix) 40 mg IVP DAILY [facility] Stop: 10/02/17 08:59 Last Admin: 08/10/17 09:25 Dose: 40 mg Simethicone (Mylicon) 80 mg GT Q6H PRN PRN Reason: GAS PAIN Stop: 10/02/17 14:13 Sodium Phosphate (Fleet Enema) 118 ml RC PRN PRN PRN Reason: IF MOM/DULCOLAX INEFFECTIVE Stop: 10/02/17 14:13 Temazepam (Restoril) 15 mg GT HS PRN; Protocol PRN Reason: Insomnia Stop: 10/02/17 14:13 Last Admin: 08/09/17 22:20 Dose: 15 mg Zinc Sulfate (Zinc Sulfate) 220 mg GT DAILY [facility] Stop: 10/03/17 08:59 Last Admin: 08/10/17 09:25 Dose: 220 mg General: no acute distress, well developed, well nourished HEENT: atraumatic, normocephalic, PERRLA, EOMI, moist mucous membrane Neck: supple, no thyromegaly, no lymphadenopathy, no rigid Cardiovascular: S1S2, regular Lungs: clear to auscultation bilaterally, clear to percussion Abdomen: soft, no tender, no distended Extremities: no cyanosis, no clubbing, no edema Neurological: awake, alert, oriented Skin: intact - Procedures Procedures: Procedures Procedure Code Date BLOOD TRANSFUSION SERVICE 90548 08/02/17 EXCISION OF STOMACH, ENDO, DIAGN [id number] 07/10/17 INSPECTION OF LOWER INTESTINAL TRACT, ENDO [id number] 07/10/17 PERFORMANCE OF URINARY FILTRATION, <6 HRS/DAY [id number] 07/10/17 RESPIRATORY VENTILATION, GREATER THAN 96 CONSECUTIVE HOURS [id number] 08/02/17 TRANSFUSE NONAUT RED BLOOD CELLS IN PERIPH VEIN, PERC [id number] 08/02/17 Infectious Disease Assmt/Plan - Assessment Assessment: 1. Septic shock. improved. 2. Gram-negative negative bacteremia. 3. Pneumonia. 4. 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 5. Diabetes mellitus type 2. 6. Obesity. - Plan Plan: Continue zosyn for few days. Nutritional Asmnt/Malnutr-PDOC - Dietary Evaluation Malnutrition Findings (Please click <Entered> for more info): Nutritional Asmnt/Malnutrition Start: 08/05/17 15: 53 Text: Status: Complete Freq: Document 08/05/17 15:53 DONNA (Rec: 08/05/17 16:19 [email or web address] Nutritional Asmnt/Malnutrition Patient General Information Nutritional Screening High Risk Diagnosis sepsis, respiratory failure, ESRD Pertinent Medical Hx/Surgical Hx ESRD on HD, respiratory failure with tracheostomy, dysphagia, a fib, anemia, HTN, GERD Subjective Information Pt on vent, not able to interview. Pt was on TF Novosource Renal 30ml/hr continuous, NPO today for surgery. Pt has dialysis ordred per nurse note. Current Diet Order/ Nutrition Support NPO on 08/05 Pertinent Medications vit C, vit D3, colace, novolog , remeron, theragran, protonix , zinc Pertinent Labs 08/05 Na 134, K 3.6, Cl 102, BUN 77, Cr 4.2, Glucose 216, POC 224-233 08/02 A1c 7.7 Nutritional Hx/Data Height 1.6 m Height (Calculated Centimeters) 160.0 Current Weight (lbs) 87.543 kg Weight (Calculated Kilograms) 87.5 Weight (Calculated Grams) 90535.3 [place] Body Weight 115 Body Mass Index (BMI) 34.2 Weight Status Obese GI Symptoms GI Symptoms None Last BM 08/04 Difficult in: None Skin Integrity/Comment: reddened to left/right inner thigh, right lateral index finger, right/left arm; skin tear to left abdominal fold; pressure area to coccy/sacral Estimated Nutritional Goals BEE in Kcals: Adj wt of IBW Calories/Kcals/Kg 30-35 adj wt 61kg Kcals Calculated 7446-9234 Protein: Adj wt of IBW Protein g/k.2-1.4 Protein Calculated 73-85 Fluid: ml 1830-2135ml (1ml/kcal) Nutritional Problem 1. Problem Problem altered nutrition related lab values Etiology hx of ESRD, endocrine dysfunction Signs/Symptoms: BUN 77, Cr 4.2, Glucose 216, POC 224-233, A1c 7.7 Malnutrition Alert Protein-Calorie Malnutrition N/A Is there a minimum of two criteria No selected? Query Text:Check all the applicable criteria. A minimum of two criteria are recommended for diagnosis of either severe or non-severe malnutrition. Intervention/Recommendation Comments 1. Resume TF Novosource Renal 30ml/hr continuous as ordered. increase to goal rate of 40ml /hr continuous as tolerated. This will provide 1920kcal, 87g protein and 688ml free water, meeting 100% of nutritional needs 2. Monitor TF rate, tolerance, wt weekly, skin integrity and labs 3. F/U as high risk in 2-3 days, 08/07-3/ Expected Outcomes/Goals Expected Outcomes/Goals 1. Pt to meet at least 75% of nutritional needs via nutrition support with tolerance 2. Wt stability, skin to remain intact, labs to approach WNL.
[2017-08-11] MEDS: Albuterol/Ipratropium Neb 3 ML AERS HHN SCH ×6 (02:21→23:52)
[2017-08-11] MEDS: Diltiazem 5 mg/mL 5mL Vial IVP PRN (04:45)
[2017-08-11 05:12] LABS: HEMATOCRIT 25.9 % (41.0-60); HEMOGLOBIN 8.6 gm/dL (12-16); MEAN CELL VOLUME 93.7 fl (81-100); MEAN CORPUSCULAR HEMOGLOBIN 30.9 pg (27.0-31.0); MEAN PLATELET VOLUME 11.6 fl; RED BLOOD COUNT 2.77 Mil/cmm (3.80-5.20); RED CELL DISTRIBUTION WIDTH 17.9 % (11.5-20.0)
[2017-08-11 05:17] LABS: MANUAL DIFF REQUIRED? YES; PLATELET COUNT 286 Th/cmm (150-400); WHITE BLOOD COUNT 12.7 Th/cmm (4.8-10.8)
[2017-08-11 05:25] LABS: ANION GAP 13.3 (7.0-16.0); CALCIUM SERUM 8.6 mg/dL (8.6-10.3); CARBON DIOXIDE 27.5 mEq/L (21.0-31.0); CHLORIDE 97 mEq/L (98-107); CREATININE - SERUM 3.1 mg/dL (0.6-1.2); GLUCOSE 240 mg/dL (70-105); POTASSIUM SERUM 3.8 mEq/L (3.5-5.1); SODIUM SERUM 134 mEq/L (136-145)
[2017-08-11 05:51] LABS: BUN - UREA NITROGEN 50 mg/dL (7-25)
[2017-08-11] MEDS: Piperacillin/Tazobact 2.25 gm in 0.9% NS 50 ML IV SCH ×4 (06:01→23:46)
[2017-08-11] MEDS: INSULIN ASPART SLIDING SCALE 100 UNITS/ML UNIT SUBQ SCH ×4 (06:11→23:43)
--- NOTE | 2017-08-11 07:53 | GI Progress Note ---
Subjective - Review of Systems Subjective: NO GI BLEEDING Objective - Results Result Diagrams: 08/11/17 04:45 08/11/17 04:45 Recent Labs: Laboratory Last Values WBC 12.7 Th/cmm (4.8-10.8) H 08/11/17 04:45 RBC 2.77 Mil/cmm (3.80-5.20) L 08/11/17 04:45 Hgb 8.6 gm/dL (12-16) L 08/11/17 04:45 Hct 25.9 % (41.0-60) L 08/11/17 04:45 MCV 93.7 fl (81-100) 08/11/17 04:45 MCH 30.9 pg (27.0-31.0) 08/11/17 04:45 MCHC Differential 33.0 pg (28.0-36.0) 08/11/17 04:45 RDW 17.9 % (11.5-20.0) 08/11/17 04:45 Plt Count 286 Th/cmm (150-400) D 08/11/17 04:45 MPV 11.6 fl 08/11/17 04:45 Neutrophils % 80.5 % (40.0-80.0) H 08/10/17 04:30 Band Neutrophils % 1 % (0-10) 08/09/17 06:34 Lymphocytes % 4.6 % (20.0-50.0) L 08/10/17 04:30 Monocytes % 11.8 % (2.0-10.0) H 08/10/17 04:30 Eosinophils % 3.1 % (0.0-5.0) 08/10/17 04:30 Basophils % 0.0 % (0.0-2.0) 08/10/17 04:30 Neutrophils (Manual) 86 % (40-80) H 08/09/17 06:34 Lymphocytes 5 % (20-50) L 08/09/17 06:34 Monocytes 5 % (2-10) 08/09/17 06:34 Eosinophils 3 % (0-5) 08/09/17 06:34 Basophils 1 % (0-3) 08/07/17 05:45 Hypochromia 1+ 08/02/17 15:37 Platelet Estimate ADEQUATE (NORMAL) 08/09/17 06:34 Platelet Morphology NORMAL (NORMAL) 08/02/17 15:37 Anisocytosis 1+ 08/07/17 05:45 Crenated Cell 2+ 08/02/17 15:37 RBC Morph Micro Appear ABNORMAL (NORMAL) 08/02/17 15:37 PT 12.9 SECONDS (9.5-11.5) H 08/02/17 13:58 INR 1.23 (0.5-1.4) 08/02/17 13:58 PTT (Actin FS) 33.6 SECONDS (26.0-38.0) 08/02/17 13:58 Specimen Source Arterial 08/03/17 08:58 Sample Site Right Radial 08/03/17 08:58 pH 7.42 (7.35-7.45) 08/03/17 08:58 pCO2 37.0 mmHg (35.0-45.0) 08/03/17 08:58 pO2 204.0 mmHg (80.0-100.0) H 08/03/17 08:58 HCO3 24.8 mEq/L (20.0-26.0) 08/03/17 08:58 Base Excess -0.2 mEq/L (-3.0-3.0) 08/03/17 08:58 O2 Saturation 100.0 % (92.0-100.0) 08/03/17 08:58 Rhett Test Positive 08/03/17 08:58 Vent Rate 12 08/03/17 08:58 Inspired O2 60 08/03/17 08:58 Tidal Volume 450 08/03/17 08:58 PEEP 5 08/03/17 08:58 Pressure (ins/psv/peep) NA 08/03/17 08:58 Critical Value LZHANG 08/03/17 08:58 Sodium 134 mEq/L (136-145) L 08/11/17 04:45 Potassium 3.8 mEq/L (3.5-5.1) 08/11/17 04:45 Chloride 97 mEq/L (98-107) L 08/11/17 04:45 Carbon Dioxide 27.5 mEq/L (21.0-31.0) 08/11/17 04:45 Anion Gap 13.3 (7.0-16.0) 08/11/17 04:45 BUN 50 mg/dL (7-25) H 08/11/17 04:45 Creatinine 3.1 mg/dL (0.6-1.2) H 08/11/17 04:45 Est GFR ( Amer) TNP 08/11/17 04:45 Est GFR (Non-Af Amer) TNP 08/11/17 04:45 BUN/Creatinine Ratio 16.1 08/11/17 04:45 Glucose 240 mg/dL (70-105) H 08/11/17 04:45 POC Glucose 264 MG/DL (70 - 105) H 08/11/17 06:07 Hemoglobin A1c % 7.7 % (4.0-6.0) H 08/02/17 15:37 Whole Bld Lactic Acid 1.97 mmol/L (0.60-1.99) 08/02/17 13:49 Calcium 8.6 mg/dL (8.6-10.3) 08/11/17 04:45 Magnesium 1.7 mg/dL (1.9-2.7) L 08/10/17 04:30 Iron 10 ug/dL (27-139) L 08/02/17 13:56 TIBC 135 ug/dL (250-450) L 08/02/17 13:56 Iron Saturation 7 % (15-55) L 08/02/17 13:56 Unsaturated IBC 125 ug/dL (118-369) 08/02/17 13:56 Ferritin 588 ng/mL (15-150) H 08/02/17 13:56 Total Bilirubin 0.6 mg/dL (0.3-1.0) 08/09/17 06:34 Direct Bilirubin 0.09 mg/dL (0.0-0.2) 08/02/17 13:57 AST 21 U/L (13-39) 08/09/17 06:34 ALT 12 U/L (7-52) 08/09/17 06:34 Alkaline Phosphatase 91 U/L (34-104) 08/09/17 06:34 Troponin I 1.16 ng/mL (0.01-0.05) H* D 08/04/17 06:30 B-Natriuretic Peptide 372.0 pg/mL (5.0-100.0) H 08/05/17 06:15 Total Protein 6.4 gm/dL (6.0-8.3) 08/09/17 06:34 Albumin 2.9 gm/dL (3.7-5.3) L 08/09/17 06:34 Globulin 3.5 gm/dL 08/09/17 06:34 Albumin/Globulin Ratio 0.8 (1.0-1.8) L 08/09/17 06:34 Triglycerides 132 mg/dL (<150) 08/04/17 06:30 Cholesterol 55 mg/dL (<200) 08/04/17 06:30 LDL Cholesterol Direct 16 mg/dL (75-193) L 08/04/17 06:30 HDL Cholesterol 13 mg/dL (23-92) L 08/04/17 06:30 Amylase 12 U/L (29-103) L 08/02/17 13:43 Lipase 4 U/L (11-82) L 08/02/17 13:43 TSH 3.74 uIU/ml (0.34-5.60) 08/04/17 06:30 Stool Occult Blood POSITIVE (NEGATIVE) H 08/03/17 17:50 Random Vancomycin 14.8 ug/mL (5.0-40.0) 08/09/17 06:34 Hepatitis A IgM Ab Negative (Negative) 08/08/17 08:15 Hep Bs Antigen Negative (Negative) 08/08/17 08:15 Hep B Core IgM Ab Negative (Negative) 08/08/17 08:15 Hepatitis C Antibody <0.1 s/co ratio (0.0-0.9) 08/08/17 08:15 Blood Type A POSITIVE 08/02/17 20:54 Antibody Screen POSITIVE 08/02/17 20:54 Crossmatch See Detail 08/02/17 20:54 - Physical Exam Vitals and I&O: Vital Signs Temp 98.0 F 08/11/17 03:00 Pulse 125 08/11/17 06:45 Resp 16 08/11/17 06:00 BP 98/41 08/11/17 06:45 Pulse Ox 100 08/11/17 06:00 Intake & Output 08/10/17 08/11/17 08/11/17 18:59 06:59 18:59 Intake Total 308 660.077 Balance 308 660.077 Weight (lbs) 94.801 kg Intake: Intake, IV Amount 308 460.077 Norepinephrine 8 mg In 258 310.077 Dextrose 5% 250 ml @ 0 MCG/MIN IV TITR PRN Rx#: [id number] Piperacillin Sodium/ 50 150 Tazobact 2.25 gm In Sodium Chloride 0.9% 50 ml @ 100 mls/hr IV Q6HR [facility] Rx#:[id number] Other 200 Other: # Bowel Movements 1 Stool Characteristics Soft Formed Brown Active Medications: Current Medications Acetaminophen (Tylenol 650mg/20.3ml Suspension) 650 mg GT DAILY [facility] Stop: 10/03/17 08:59 Last Admin: 08/10/17 09:24 Dose: 650 mg Albuterol/Ipratropium (Duoneb Neb) 3 ml HHN Q4HRT [facility] Stop: 10/02/17 10:59 Last Admin: 08/11/17 02:21 Dose: 3 ml Ascorbic Acid (Vitamin C) 500 mg PO DAILY [facility] Stop: 10/03/17 08:59 Last Admin: 08/10/17 09:25 Dose: 500 mg Aspirin (Aspirin Chewable) 81 mg GT DAILY [facility] Stop: 10/03/17 08:59 Last Admin: 08/10/17 09:25 Dose: 81 mg Atorvastatin Calcium (Lipitor) 40 mg GT HS [facility] Stop: 10/03/17 20:59 Last Admin: 08/10/17 20:41 Dose: 40 mg Bisacodyl (Dulcolax 10 Mg Supp) 10 mg RC Q72HR PRN PRN Reason: IF MOM INEFFECTIVE Stop: 10/02/17 14:13 Chlorhexidine Gluconate (Peridex) 15 ml MM 0800,2000 [facility] Stop: 10/02/17 07:59 Last Admin: 08/10/17 20:42 Dose: 15 ml Cholecalciferol (Vitamin D3) 1,000 iu GT DAILY [facility] Stop: 10/03/17 08:59 Last Admin: 08/10/17 09:25 Dose: 1,000 iu Diltiazem HCl (Cardizem) 5 mg IVP Q4H PRN PRN Reason: INCREASE HEART RATE Stop: 10/01/17 21:59 Last Admin: 08/11/17 04:45 Dose: 5 mg Docusate Sodium (Colace) 100 mg PO DAILY [facility] Stop: 10/03/17 08:59 Last Admin: 08/10/17 09:25 Dose: 100 mg Dopamine HCl/Dextrose (Dopamine) 400 mg in 250 mls @ 0 mls/hr IV TITR PRN; Protocol; Per Protocol PRN Reason: BP MAINTENANCE (PER PROTOCOL) Stop: 10/02/17 07:47 Norepinephrine Bitartrate 8 mg (/ Dextrose) 258 mls @ 0 mls/hr IV TITR PRN; Protocol; 0 MCG/MIN PRN Reason: BP MAINTENANCE (PER PROTOCOL) Stop: 10/05/17 13:59 Last Titration: 08/10/17 22:00 Dose: 10 mcg/min, 19.35 mls/hr Diltiazem HCl 125 mg/ Dextrose 125 mls @ 0 mls/hr IV TITR [facility]; 0 MG/HR PRN Reason: Protocol Stop: 10/05/17 14:59 Last Titration: 08/10/17 06:00 Dose: 5 mg/hr, 5 mls/hr Piperacillin Sod/Tazobactam (Sod 2.25 gm/ Sodium Chloride) 50 mls @ 100 mls/hr IV Q6HR FOUZIA Stop: 10/05/17 17:59 Last Infusion: 08/11/17 06:36 Dose: Infused Insulin Aspart (Novolog Insulin Sliding Scale) 0 units SUBQ Q6HR FOUZIA PRN Reason: Protocol Stop: 10/02/17 00:00 Last Admin: 08/11/17 06:11 Dose: 6 units Lactobacillus Rhamnosus (Culturelle 15b) 1 each PO DAILY FOUZIA Stop: 10/07/17 08:59 Last Admin: 08/10/17 09:25 Dose: 1 each Lorazepam (Ativan) 1 mg IVP Q2H PRN; Protocol PRN Reason: Restlessness Stop: 10/09/17 09:44 Last Admin: 08/10/17 23:08 Dose: 1 mg Magnesium Hydroxide (Milk Of Magnesia) 30 ml GT Q72H PRN PRN Reason: NO BM FOR THREE DAYS Stop: 10/02/17 14:13 Mirtazapine (Remeron) 15 mg GT HS FOUZIA PRN Reason: Protocol Stop: 10/02/17 20:59 Last Admin: 08/10/17 20:41 Dose: 15 mg Miscellaneous (Clinical Monitoring) 1 ea MC PRN PRN PRN Reason: RENAL Stop: 10/05/17 11:28 Miscellaneous (Zosyn Iv Per Pharmacy) 1 ea MC PRN PRN PRN Reason: PROTOCOL Stop: 10/05/17 15:59 Miscellaneous (Probiotic Screen) 1 ea MC PRN PRN PRN Reason: PROTOCOL Stop: 10/06/17 14:14 Multivitamins/Vitamin C (Theragran) 1 tab PO DAILY [facility] Stop: 10/03/17 08:59 Last Admin: 08/10/17 09:25 Dose: 1 tab Ondansetron HCl (Zofran Odt) 4 mg PO Q6HR PRN PRN Reason: Nausea / Vomiting Stop: 10/02/17 14:13 Last Admin: 08/09/17 08:41 Dose: 4 mg Pantoprazole Sodium (Protonix) 40 mg IVP DAILY [facility] Stop: 10/02/17 08:59 Last Admin: 08/10/17 09:25 Dose: 40 mg Simethicone (Mylicon) 80 mg GT Q6H PRN PRN Reason: GAS PAIN Stop: 10/02/17 14:13 Sodium Phosphate (Fleet Enema) 118 ml RC PRN PRN PRN Reason: IF MOM/DULCOLAX INEFFECTIVE Stop: 10/02/17 14:13 Zinc Sulfate (Zinc Sulfate) 220 mg GT DAILY [facility] Stop: 10/03/17 08:59 Last Admin: 08/10/17 09:25 Dose: 220 mg General: Alert, No acute distress (scattered rhonchi) HEENT: Atraumatic, PERRLA, EOMI, Mucous membr. moist/pink Neck: Supple, Other (TRACH) Cardiovascular: Regular rate Lungs: Other (few rhonchi) Abdomen: Bowel sounds, Soft, Other (INTACT GT) Extremities: Edema (upper wxtrmities), Other (upper ext) Neurological: Sensation intact Skin: no Rash Psych/Mental Status: Mood NL - Procedures Procedures: Procedures Procedure Code Date BLOOD TRANSFUSION SERVICE 09484 08/02/17 EXCISION OF STOMACH, ENDO, DIAGN [id number] 07/10/17 INSPECTION OF LOWER INTESTINAL TRACT, ENDO [id number] 07/10/17 PERFORMANCE OF URINARY FILTRATION, <6 HRS/DAY [id number] 07/10/17 RESPIRATORY VENTILATION, GREATER THAN 96 CONSECUTIVE HOURS [id number] 08/02/17 TRANSFUSE NONAUT RED BLOOD CELLS IN PERIPH VEIN, PERC [id number] 08/02/17 Assessment/Plan - Assessment Assessment: 76 YO FEMALE WITH ANEMIA STOOL OB + NO OVERT GI BLEEDING BUT COULD BE SMALL BOWEL SOURCE RECENT EGD SHOWED GASTRITIS RECENT COLO SHOWED HEMORRHOIDS SBFT SHOWED REFLUX AND DELAYED TRANSIT WITHOUT OBSTRUCTION 1.FOLLOW H/H 2.IF GI BLEEDING OCCURS THEN GET BLEEDING SCAN VS ANGIOGRAPHY
[2017-08-11 08:40] LABS: BAND NEUTROPHILE 4 % (0-10); EOSINOPHIL 4 % (0-5); LYMPHOCYTE 8 % (20-50); MONOCYTE 3 % (2-10); NEUTROPHILS 81 % (40-80); TOTAL CELLS COUNTED 100
[2017-08-11 08:41] LABS: PLATELET ESTIMATE ADEQUATE (NORMAL)
--- NOTE | 2017-08-11 09:13 | Diagnostic Imaging Report ---
CHEST X-RAY: AP view INDICATION: CHF COMPARISON: 08/08/2017 FINDINGS: Tracheostomy tube is stable. Persistent CHF is seen bilateral effusions, left greater than right. Cardiomegaly is noted. IMPRESSION: Persistent CHF and bilateral infiltrates and bilateral effusions, left greater than right. Cardiomegaly.
--- NOTE | 2017-08-11 09:39 | General Progress Note ---
Subjective - Review of Systems Service Date: 08/11/17 Events since last encounter: patient is comfortable no signs of pain Subjective: still on levophed Objective - Results Result Diagrams: 08/11/17 04:45 08/11/17 04:45 Recent Labs: Laboratory Last Values WBC 12.7 Th/cmm (4.8-10.8) H 08/11/17 04:45 RBC 2.77 Mil/cmm (3.80-5.20) L 08/11/17 04:45 Hgb 8.6 gm/dL (12-16) L 08/11/17 04:45 Hct 25.9 % (41.0-60) L 08/11/17 04:45 MCV 93.7 fl (81-100) 08/11/17 04:45 MCH 30.9 pg (27.0-31.0) 08/11/17 04:45 MCHC Differential 33.0 pg (28.0-36.0) 08/11/17 04:45 RDW 17.9 % (11.5-20.0) 08/11/17 04:45 Plt Count 286 Th/cmm (150-400) D 08/11/17 04:45 MPV 11.6 fl 08/11/17 04:45 Neutrophils % 80.5 % (40.0-80.0) H 08/10/17 04:30 Band Neutrophils % 4 % (0-10) 08/11/17 04:45 Lymphocytes % 4.6 % (20.0-50.0) L 08/10/17 04:30 Monocytes % 11.8 % (2.0-10.0) H 08/10/17 04:30 Eosinophils % 3.1 % (0.0-5.0) 08/10/17 04:30 Basophils % 0.0 % (0.0-2.0) 08/10/17 04:30 Neutrophils (Manual) 81 % (40-80) H 08/11/17 04:45 Lymphocytes 8 % (20-50) L 08/11/17 04:45 Monocytes 3 % (2-10) 08/11/17 04:45 Eosinophils 4 % (0-5) 08/11/17 04:45 Basophils 1 % (0-3) 08/07/17 05:45 Hypochromia 1+ 08/02/17 15:37 Platelet Estimate ADEQUATE (NORMAL) 08/11/17 04:45 Platelet Morphology NORMAL (NORMAL) 08/02/17 15:37 Anisocytosis 1+ 08/07/17 05:45 Crenated Cell 2+ 08/02/17 15:37 RBC Morph Micro Appear ABNORMAL (NORMAL) 08/02/17 15:37 PT 12.9 SECONDS (9.5-11.5) H 08/02/17 13:58 INR 1.23 (0.5-1.4) 08/02/17 13:58 PTT (Actin FS) 33.6 SECONDS (26.0-38.0) 08/02/17 13:58 Specimen Source Arterial 08/03/17 08:58 Sample Site Right Radial 08/03/17 08:58 pH 7.42 (7.35-7.45) 08/03/17 08:58 pCO2 37.0 mmHg (35.0-45.0) 08/03/17 08:58 pO2 204.0 mmHg (80.0-100.0) H 08/03/17 08:58 HCO3 24.8 mEq/L (20.0-26.0) 08/03/17 08:58 Base Excess -0.2 mEq/L (-3.0-3.0) 08/03/17 08:58 O2 Saturation 100.0 % (92.0-100.0) 08/03/17 08:58 Rhett Test Positive 08/03/17 08:58 Vent Rate 12 08/03/17 08:58 Inspired O2 60 08/03/17 08:58 Tidal Volume 450 08/03/17 08:58 PEEP 5 08/03/17 08:58 Pressure (ins/psv/peep) NA 08/03/17 08:58 Critical Value LZHANG 08/03/17 08:58 Sodium 134 mEq/L (136-145) L 08/11/17 04:45 Potassium 3.8 mEq/L (3.5-5.1) 08/11/17 04:45 Chloride 97 mEq/L (98-107) L 08/11/17 04:45 Carbon Dioxide 27.5 mEq/L (21.0-31.0) 08/11/17 04:45 Anion Gap 13.3 (7.0-16.0) 08/11/17 04:45 BUN 50 mg/dL (7-25) H 08/11/17 04:45 Creatinine 3.1 mg/dL (0.6-1.2) H 08/11/17 04:45 Est GFR ( Amer) TNP 08/11/17 04:45 Est GFR (Non-Af Amer) TNP 08/11/17 04:45 BUN/Creatinine Ratio 16.1 08/11/17 04:45 Glucose 240 mg/dL (70-105) H 08/11/17 04:45 POC Glucose 264 MG/DL (70 - 105) H 08/11/17 06:07 Hemoglobin A1c % 7.7 % (4.0-6.0) H 08/02/17 15:37 Whole Bld Lactic Acid 1.97 mmol/L (0.60-1.99) 08/02/17 13:49 Calcium 8.6 mg/dL (8.6-10.3) 08/11/17 04:45 Magnesium 1.7 mg/dL (1.9-2.7) L 08/10/17 04:30 Iron 10 ug/dL (27-139) L 08/02/17 13:56 TIBC 135 ug/dL (250-450) L 08/02/17 13:56 Iron Saturation 7 % (15-55) L 08/02/17 13:56 Unsaturated IBC 125 ug/dL (118-369) 08/02/17 13:56 Ferritin 588 ng/mL (15-150) H 08/02/17 13:56 Total Bilirubin 0.6 mg/dL (0.3-1.0) 08/09/17 06:34 Direct Bilirubin 0.09 mg/dL (0.0-0.2) 08/02/17 13:57 AST 21 U/L (13-39) 08/09/17 06:34 ALT 12 U/L (7-52) 08/09/17 06:34 Alkaline Phosphatase 91 U/L (34-104) 08/09/17 06:34 Troponin I 1.16 ng/mL (0.01-0.05) H* D 08/04/17 06:30 B-Natriuretic Peptide 372.0 pg/mL (5.0-100.0) H 08/05/17 06:15 Total Protein 6.4 gm/dL (6.0-8.3) 08/09/17 06:34 Albumin 2.9 gm/dL (3.7-5.3) L 08/09/17 06:34 Globulin 3.5 gm/dL 08/09/17 06:34 Albumin/Globulin Ratio 0.8 (1.0-1.8) L 08/09/17 06:34 Triglycerides 132 mg/dL (<150) 08/04/17 06:30 Cholesterol 55 mg/dL (<200) 08/04/17 06:30 LDL Cholesterol Direct 16 mg/dL (75-193) L 08/04/17 06:30 HDL Cholesterol 13 mg/dL (23-92) L 08/04/17 06:30 Amylase 12 U/L (29-103) L 08/02/17 13:43 Lipase 4 U/L (11-82) L 08/02/17 13:43 TSH 3.74 uIU/ml (0.34-5.60) 08/04/17 06:30 Stool Occult Blood POSITIVE (NEGATIVE) H 08/03/17 17:50 Random Vancomycin 14.8 ug/mL (5.0-40.0) 08/09/17 06:34 Hepatitis A IgM Ab Negative (Negative) 08/08/17 08:15 Hep Bs Antigen Negative (Negative) 08/08/17 08:15 Hep B Core IgM Ab Negative (Negative) 08/08/17 08:15 Hepatitis C Antibody <0.1 s/co ratio (0.0-0.9) 08/08/17 08:15 Blood Type A POSITIVE 08/02/17 20:54 Antibody Screen POSITIVE 08/02/17 20:54 Crossmatch See Detail 08/02/17 20:54 - Physical Exam Vitals and I&O: Vital Signs Temp 98.0 F 08/11/17 03:00 Pulse 85 08/11/17 08:22 Resp 16 08/11/17 06:00 BP 98/41 08/11/17 06:45 Pulse Ox 100 08/11/17 08:22 Intake & Output 08/10/17 08/11/17 08/11/17 18:59 06:59 18:59 Intake Total 308 660.077 Balance 308 660.077 Weight (lbs) 94.801 kg Intake: Intake, IV Amount 308 460.077 Norepinephrine 8 mg In 258 310.077 Dextrose 5% 250 ml @ 0 MCG/MIN IV TITR PRN Rx#: [id number] Piperacillin Sodium/ 50 150 Tazobact 2.25 gm In Sodium Chloride 0.9% 50 ml @ 100 mls/hr IV Q6HR [facility] Rx#:[id number] Other 200 Other: # Bowel Movements 1 Stool Characteristics Soft Formed Brown Active Medications: Current Medications Acetaminophen (Tylenol 650mg/20.3ml Suspension) 650 mg GT DAILY [facility] Stop: 10/03/17 08:59 Last Admin: 08/10/17 09:24 Dose: 650 mg Albuterol/Ipratropium (Duoneb Neb) 3 ml HHN Q4HRT [facility] Stop: 10/02/17 10:59 Last Admin: 08/11/17 08:15 Dose: 3 ml Ascorbic Acid (Vitamin C) 500 mg PO DAILY [facility] Stop: 10/03/17 08:59 Last Admin: 08/10/17 09:25 Dose: 500 mg Aspirin (Aspirin Chewable) 81 mg GT DAILY [facility] Stop: 10/03/17 08:59 Last Admin: 08/10/17 09:25 Dose: 81 mg Atorvastatin Calcium (Lipitor) 40 mg GT HS [facility] Stop: 10/03/17 20:59 Last Admin: 08/10/17 20:41 Dose: 40 mg Bisacodyl (Dulcolax 10 Mg Supp) 10 mg RC Q72HR PRN PRN Reason: IF MOM INEFFECTIVE Stop: 10/02/17 14:13 Chlorhexidine Gluconate (Peridex) 15 ml MM 0800,2000 [facility] Stop: 10/02/17 07:59 Last Admin: 08/10/17 20:42 Dose: 15 ml Cholecalciferol (Vitamin D3) 1,000 iu GT DAILY [facility] Stop: 10/03/17 08:59 Last Admin: 08/10/17 09:25 Dose: 1,000 iu Diltiazem HCl (Cardizem) 5 mg IVP Q4H PRN PRN Reason: INCREASE HEART RATE Stop: 10/01/17 21:59 Last Admin: 08/11/17 04:45 Dose: 5 mg Docusate Sodium (Colace) 100 mg PO DAILY [facility] Stop: 10/03/17 08:59 Last Admin: 08/10/17 09:25 Dose: 100 mg Dopamine HCl/Dextrose (Dopamine) 400 mg in 250 mls @ 0 mls/hr IV TITR PRN; Protocol; Per Protocol PRN Reason: BP MAINTENANCE (PER PROTOCOL) Stop: 10/02/17 07:47 Norepinephrine Bitartrate 8 mg (/ Dextrose) 258 mls @ 0 mls/hr IV TITR PRN; Protocol; 0 MCG/MIN PRN Reason: BP MAINTENANCE (PER PROTOCOL) Stop: 10/05/17 13:59 Last Titration: 08/10/17 22:00 Dose: 10 mcg/min, 19.35 mls/hr Diltiazem HCl 125 mg/ Dextrose 125 mls @ 0 mls/hr IV TITR [facility]; 0 MG/HR PRN Reason: Protocol Stop: 10/05/17 14:59 Last Titration: 08/10/17 06:00 Dose: 5 mg/hr, 5 mls/hr Piperacillin Sod/Tazobactam (Sod 2.25 gm/ Sodium Chloride) 50 mls @ 100 mls/hr IV Q6HR [facility] Stop: 10/05/17 17:59 Last Infusion: 08/11/17 06:36 Dose: Infused Insulin Aspart (Novolog Insulin Sliding Scale) 0 units SUBQ Q6HR [facility] PRN Reason: Protocol Stop: 10/02/17 00:00 Last Admin: 08/11/17 06:11 Dose: 6 units Lactobacillus Rhamnosus (Culturelle 15b) 1 each PO DAILY [facility] Stop: 10/07/17 08:59 Last Admin: 08/10/17 09:25 Dose: 1 each Lorazepam (Ativan) 1 mg IVP Q2H PRN; Protocol PRN Reason: Restlessness Stop: 10/09/17 09:44 Last Admin: 08/10/17 23:08 Dose: 1 mg Magnesium Hydroxide (Milk Of Magnesia) 30 ml GT Q72H PRN PRN Reason: NO BM FOR THREE DAYS Stop: 10/02/17 14:13 Mirtazapine (Remeron) 15 mg GT HS [facility] PRN Reason: Protocol Stop: 10/02/17 20:59 Last Admin: 08/10/17 20:41 Dose: 15 mg Miscellaneous (Clinical Monitoring) 1 ea PRN PRN PRN Reason: RENAL Stop: 10/05/17 11:28 Miscellaneous (Zosyn Iv Per Pharmacy) 1 ea PRN PRN PRN Reason: PROTOCOL Stop: 10/05/17 15:59 Miscellaneous (Probiotic Screen) 1 ea PRN PRN PRN Reason: PROTOCOL Stop: 10/06/17 14:14 Multivitamins/Vitamin C (Theragran) 1 tab PO DAILY [facility] Stop: 10/03/17 08:59 Last Admin: 08/10/17 09:25 Dose: 1 tab Ondansetron HCl (Zofran Odt) 4 mg PO Q6HR PRN PRN Reason: Nausea / Vomiting Stop: 10/02/17 14:13 Last Admin: 08/09/17 08:41 Dose: 4 mg Pantoprazole Sodium (Protonix) 40 mg IVP DAILY [facility] Stop: 10/02/17 08:59 Last Admin: 08/10/17 09:25 Dose: 40 mg Simethicone (Mylicon) 80 mg GT Q6H PRN PRN Reason: GAS PAIN Stop: 10/02/17 14:13 Sodium Phosphate (Fleet Enema) 118 ml RC PRN PRN PRN Reason: IF MOM/DULCOLAX INEFFECTIVE Stop: 10/02/17 14:13 Zinc Sulfate (Zinc Sulfate) 220 mg GT DAILY [facility] Stop: 10/03/17 08:59 Last Admin: 08/10/17 09:25 Dose: 220 mg General: Alert, No acute distress (scattered rhonchi) HEENT: Atraumatic, PERRLA, EOMI, Mucous membr. moist/pink Neck: Supple, Other (TRACH) Cardiovascular: Regular rate Lungs: Other (few rhonchi) Abdomen: Bowel sounds, Soft, Other (INTACT GT) Extremities: Edema (upper wxtrmities), Other (upper ext) Neurological: Sensation intact Skin: no Rash Psych/Mental Status: Mood NL - Procedures Procedures: Procedures Procedure Code Date BLOOD TRANSFUSION SERVICE 60232 08/02/17 EXCISION OF STOMACH, ENDO, DIAGN [id number] 07/10/17 INSPECTION OF LOWER INTESTINAL TRACT, ENDO [id number] 07/10/17 PERFORMANCE OF URINARY FILTRATION, <6 HRS/DAY [id number] 07/10/17 RESPIRATORY VENTILATION, GREATER THAN 96 CONSECUTIVE HOURS [id number] 08/02/17 TRANSFUSE NONAUT RED BLOOD CELLS IN PERIPH VEIN, PERC [id number] 08/02/17 Nutritional Asmnt/Malnutr-PDOC - Dietary Evaluation Malnutrition Findings (Please click <Entered> for more info): Nutritional Asmnt/Malnutrition Start: 08/05/17 15: 53 Text: Status: Complete Freq: Document 08/05/17 15:53 JOHANNAMAX (Rec: 08/05/17 16:19 JOHANNAMAX [id number]) Nutritional Asmnt/Malnutrition Patient General Information Nutritional Screening High Risk Diagnosis sepsis, respiratory failure, ESRD Pertinent Medical Hx/Surgical Hx ESRD on HD, respiratory failure with tracheostomy, dysphagia, a fib, anemia, HTN, GERD Subjective Information Pt on vent, not able to interview. Pt was on TF Novosource Renal 30ml/hr continuous, NPO today for surgery. Pt has dialysis ordred per nurse note. Current Diet Order/ Nutrition Support NPO on 08/05 Pertinent Medications vit C, vit D3, colace, novolog , remeron, theragran, protonix , zinc Pertinent Labs 08/05 Na 134, K 3.6, Cl 102, BUN 77, Cr 4.2, Glucose 216, POC 224-233 08/02 A1c 7.7 Nutritional Hx/Data Height 1.6 m Height (Calculated Centimeters) 160.0 Current Weight (lbs) 87.543 kg Weight (Calculated Kilograms) 87.5 Weight (Calculated Grams) 11127.3 [place] Body Weight 115 Body Mass Index (BMI) 34.2 Weight Status Obese GI Symptoms GI Symptoms None Last BM 08/04 Difficult in: None Skin Integrity/Comment: reddened to left/right inner thigh, right lateral index finger, right/left arm; skin tear to left abdominal fold; pressure area to coccy/sacral Estimated Nutritional Goals BEE in Kcals: Adj wt of IBW Calories/Kcals/Kg 30-35 adj wt 61kg Kcals Calculated 6822-7529 Protein: Adj wt of IBW Protein g/k.2-1.4 Protein Calculated 73-85 Fluid: ml 1830-2135ml (1ml/kcal) Nutritional Problem 1. Problem Problem altered nutrition related lab values Etiology hx of ESRD, endocrine dysfunction Signs/Symptoms: BUN 77, Cr 4.2, Glucose 216, POC 224-233, A1c 7.7 Malnutrition Alert Protein-Calorie Malnutrition N/A Is there a minimum of two criteria No selected? Query Text:Check all the applicable criteria. A minimum of two criteria are recommended for diagnosis of either severe or non-severe malnutrition. Intervention/Recommendation Comments 1. Resume TF Novosource Renal 30ml/hr continuous as ordered. increase to goal rate of 40ml /hr continuous as tolerated. This will provide 1920kcal, 87g protein and 688ml free water, meeting 100% of nutritional needs 2. Monitor TF rate, tolerance, wt weekly, skin integrity and labs 3. F/U as high risk in 2-3 days, 08/07-08/08 Expected Outcomes/Goals Expected Outcomes/Goals 1. Pt to meet at least 75% of nutritional needs via nutrition support with tolerance 2. Wt stability, skin to remain intact, labs to approach WNL.
[2017-08-11] MEDS: Lactobacillus Rhamnosus GG 15 Billion CFU CAP.SPRINK PO SCH (10:17)
[2017-08-11] MEDS: Aspirin 81mg Chewable Tab GT SCH (10:17)
[2017-08-11] MEDS: Multivitamin Tab PO SCH (10:17)
[2017-08-11] MEDS: Chlorhexidine Gluconate 0.12% 15mL Mouthwash MM SCH ×2 (10:18→21:00)
--- NOTE | 2017-08-11 13:29 | Infectious Disease Prog Note ---
Infectious Disease Subjective - Review of Systems Service Date: 08/11/17 Subjective: no fever. Infectious Disease Objective - Results Result Diagrams: 08/11/17 04:45 08/11/17 04:45 Recent Labs: Laboratory Last Values WBC 12.7 Th/cmm (4.8-10.8) H 08/11/17 04:45 RBC 2.77 Mil/cmm (3.80-5.20) L 08/11/17 04:45 Hgb 8.6 gm/dL (12-16) L 08/11/17 04:45 Hct 25.9 % (41.0-60) L 08/11/17 04:45 MCV 93.7 fl (81-100) 08/11/17 04:45 MCH 30.9 pg (27.0-31.0) 08/11/17 04:45 MCHC Differential 33.0 pg (28.0-36.0) 08/11/17 04:45 RDW 17.9 % (11.5-20.0) 08/11/17 04:45 Plt Count 286 Th/cmm (150-400) D 08/11/17 04:45 MPV 11.6 fl 08/11/17 04:45 Neutrophils % 80.5 % (40.0-80.0) H 08/10/17 04:30 Band Neutrophils % 4 % (0-10) 08/11/17 04:45 Lymphocytes % 4.6 % (20.0-50.0) L 08/10/17 04:30 Monocytes % 11.8 % (2.0-10.0) H 08/10/17 04:30 Eosinophils % 3.1 % (0.0-5.0) 08/10/17 04:30 Basophils % 0.0 % (0.0-2.0) 08/10/17 04:30 Neutrophils (Manual) 81 % (40-80) H 08/11/17 04:45 Lymphocytes 8 % (20-50) L 08/11/17 04:45 Monocytes 3 % (2-10) 08/11/17 04:45 Eosinophils 4 % (0-5) 08/11/17 04:45 Basophils 1 % (0-3) 08/07/17 05:45 Hypochromia 1+ 08/02/17 15:37 Platelet Estimate ADEQUATE (NORMAL) 08/11/17 04:45 Platelet Morphology NORMAL (NORMAL) 08/02/17 15:37 Anisocytosis 1+ 08/07/17 05:45 Crenated Cell 2+ 08/02/17 15:37 RBC Morph Micro Appear ABNORMAL (NORMAL) 08/02/17 15:37 PT 12.9 SECONDS (9.5-11.5) H 08/02/17 13:58 INR 1.23 (0.5-1.4) 08/02/17 13:58 PTT (Actin FS) 33.6 SECONDS (26.0-38.0) 08/02/17 13:58 Specimen Source Arterial 08/03/17 08:58 Sample Site Right Radial 08/03/17 08:58 pH 7.42 (7.35-7.45) 08/03/17 08:58 pCO2 37.0 mmHg (35.0-45.0) 08/03/17 08:58 pO2 204.0 mmHg (80.0-100.0) H 08/03/17 08:58 HCO3 24.8 mEq/L (20.0-26.0) 08/03/17 08:58 Base Excess -0.2 mEq/L (-3.0-3.0) 08/03/17 08:58 O2 Saturation 100.0 % (92.0-100.0) 08/03/17 08:58 Rhett Test Positive 08/03/17 08:58 Vent Rate 12 08/03/17 08:58 Inspired O2 60 08/03/17 08:58 Tidal Volume 450 08/03/17 08:58 PEEP 5 08/03/17 08:58 Pressure (ins/psv/peep) NA 08/03/17 08:58 Critical Value LZHANG 08/03/17 08:58 Sodium 134 mEq/L (136-145) L 08/11/17 04:45 Potassium 3.8 mEq/L (3.5-5.1) 08/11/17 04:45 Chloride 97 mEq/L (98-107) L 08/11/17 04:45 Carbon Dioxide 27.5 mEq/L (21.0-31.0) 08/11/17 04:45 Anion Gap 13.3 (7.0-16.0) 08/11/17 04:45 BUN 50 mg/dL (7-25) H 08/11/17 04:45 Creatinine 3.1 mg/dL (0.6-1.2) H 08/11/17 04:45 Est GFR ( Amer) TNP 08/11/17 04:45 Est GFR (Non-Af Amer) TNP 08/11/17 04:45 BUN/Creatinine Ratio 16.1 08/11/17 04:45 Glucose 240 mg/dL (70-105) H 08/11/17 04:45 POC Glucose 305 MG/DL (70 - 105) H 08/11/17 12:58 Hemoglobin A1c % 7.7 % (4.0-6.0) H 08/02/17 15:37 Whole Bld Lactic Acid 1.97 mmol/L (0.60-1.99) 08/02/17 13:49 Calcium 8.6 mg/dL (8.6-10.3) 08/11/17 04:45 Magnesium 1.7 mg/dL (1.9-2.7) L 08/10/17 04:30 Iron 10 ug/dL (27-139) L 08/02/17 13:56 TIBC 135 ug/dL (250-450) L 08/02/17 13:56 Iron Saturation 7 % (15-55) L 08/02/17 13:56 Unsaturated IBC 125 ug/dL (118-369) 08/02/17 13:56 Ferritin 588 ng/mL (15-150) H 08/02/17 13:56 Total Bilirubin 0.6 mg/dL (0.3-1.0) 08/09/17 06:34 Direct Bilirubin 0.09 mg/dL (0.0-0.2) 08/02/17 13:57 AST 21 U/L (13-39) 08/09/17 06:34 ALT 12 U/L (7-52) 08/09/17 06:34 Alkaline Phosphatase 91 U/L (34-104) 08/09/17 06:34 Troponin I 1.16 ng/mL (0.01-0.05) H* D 08/04/17 06:30 B-Natriuretic Peptide 372.0 pg/mL (5.0-100.0) H 08/05/17 06:15 Total Protein 6.4 gm/dL (6.0-8.3) 08/09/17 06:34 Albumin 2.9 gm/dL (3.7-5.3) L 08/09/17 06:34 Globulin 3.5 gm/dL 08/09/17 06:34 Albumin/Globulin Ratio 0.8 (1.0-1.8) L 08/09/17 06:34 Triglycerides 132 mg/dL (<150) 08/04/17 06:30 Cholesterol 55 mg/dL (<200) 08/04/17 06:30 LDL Cholesterol Direct 16 mg/dL (75-193) L 08/04/17 06:30 HDL Cholesterol 13 mg/dL (23-92) L 08/04/17 06:30 Amylase 12 U/L (29-103) L 08/02/17 13:43 Lipase 4 U/L (11-82) L 08/02/17 13:43 TSH 3.74 uIU/ml (0.34-5.60) 08/04/17 06:30 Stool Occult Blood POSITIVE (NEGATIVE) H 08/03/17 17:50 Random Vancomycin 14.8 ug/mL (5.0-40.0) 08/09/17 06:34 Hepatitis A IgM Ab Negative (Negative) 08/08/17 08:15 Hep Bs Antigen Negative (Negative) 08/08/17 08:15 Hep B Core IgM Ab Negative (Negative) 08/08/17 08:15 Hepatitis C Antibody <0.1 s/co ratio (0.0-0.9) 08/08/17 08:15 Blood Type A POSITIVE 08/02/17 20:54 Antibody Screen POSITIVE 08/02/17 20:54 Crossmatch See Detail 08/02/17 20:54 - Physical Exam Vitals and I&O: Vital Signs Temp 98.5 F 08/11/17 08:00 Pulse 82 08/11/17 12:15 Resp 16 08/11/17 12:00 BP 132/39 08/11/17 12:15 Pulse Ox 100 08/11/17 12:00 Intake & Output 08/10/17 08/11/17 08/11/17 18:59 06:59 18:59 Intake Total 308 660.077 205.923 Balance 308 660.077 205.923 Weight (lbs) 94.801 kg Intake: Intake, IV Amount 308 460.077 205.923 Norepinephrine 8 mg In 258 310.077 205.923 Dextrose 5% 250 ml @ 0 MCG/MIN IV TITR PRN Rx#: [id number] Piperacillin Sodium/ 50 150 Tazobact 2.25 gm In Sodium Chloride 0.9% 50 ml @ 100 mls/hr IV Q6HR [facility] Rx#:[id number] Other 200 Other: # Bowel Movements 1 Stool Characteristics Soft Formed Brown Active Medications: Current Medications Acetaminophen (Tylenol 650mg/20.3ml Suspension) 650 mg GT DAILY [facility] Stop: 10/03/17 08:59 Last Admin: 08/11/17 10:19 Dose: 650 mg Albuterol/Ipratropium (Duoneb Neb) 3 ml HHN Q4HRT [facility] Stop: 10/02/17 10:59 Last Admin: 08/11/17 11:47 Dose: 3 ml Ascorbic Acid (Vitamin C) 500 mg PO DAILY [facility] Stop: 10/03/17 08:59 Last Admin: 08/11/17 10:17 Dose: 500 mg Aspirin (Aspirin Chewable) 81 mg GT DAILY [facility] Stop: 10/03/17 08:59 Last Admin: 08/11/17 10:17 Dose: 81 mg Atorvastatin Calcium (Lipitor) 40 mg GT HS [facility] Stop: 10/03/17 20:59 Last Admin: 08/10/17 20:41 Dose: 40 mg Bisacodyl (Dulcolax 10 Mg Supp) 10 mg RC Q72HR PRN PRN Reason: IF MOM INEFFECTIVE Stop: 10/02/17 14:13 Chlorhexidine Gluconate (Peridex) 15 ml MM 0800,2000 [facility] Stop: 10/02/17 07:59 Last Admin: 08/11/17 10:18 Dose: 15 ml Cholecalciferol (Vitamin D3) 1,000 iu GT DAILY [facility] Stop: 10/03/17 08:59 Last Admin: 08/11/17 10:17 Dose: 1,000 iu Diltiazem HCl (Cardizem) 5 mg IVP Q4H PRN PRN Reason: INCREASE HEART RATE Stop: 10/01/17 21:59 Last Admin: 08/11/17 04:45 Dose: 5 mg Diltiazem HCl (Cardizem) 60 mg PO Q6HR [facility] Stop: 10/10/17 17:59 Docusate Sodium (Colace) 100 mg PO DAILY [facility] Stop: 10/03/17 08:59 Last Admin: 08/11/17 10:18 Dose: 100 mg Dopamine HCl/Dextrose (Dopamine) 400 mg in 250 mls @ 0 mls/hr IV TITR PRN; Protocol; Per Protocol PRN Reason: BP MAINTENANCE (PER PROTOCOL) Stop: 10/02/17 07:47 Norepinephrine Bitartrate 8 mg (/ Dextrose) 258 mls @ 0 mls/hr IV TITR PRN; Protocol; 0 MCG/MIN PRN Reason: BP MAINTENANCE (PER PROTOCOL) Stop: 10/05/17 13:59 Last Admin: 08/11/17 10:20 Dose: 10 mcg/min, 19.35 mls/hr Piperacillin Sod/Tazobactam (Sod 2.25 gm/ Sodium Chloride) 50 mls @ 100 mls/hr IV Q6HR [facility] Stop: 10/05/17 17:59 Last Admin: 08/11/17 12:54 Dose: 100 mls/hr Insulin Aspart (Novolog Insulin Sliding Scale) 0 units SUBQ Q6HR [facility] PRN Reason: Protocol Stop: 10/02/17 00:00 Last Admin: 08/11/17 12:59 Dose: 8 units Lactobacillus Rhamnosus (Culturelle 15b) 1 each PO DAILY [facility] Stop: 10/07/17 08:59 Last Admin: 08/11/17 10:17 Dose: 1 each Lorazepam (Ativan) 1 mg IVP Q2H PRN; Protocol PRN Reason: Restlessness Stop: 10/09/17 09:44 Last Admin: 08/11/17 13:13 Dose: 1 mg Magnesium Hydroxide (Milk Of Magnesia) 30 ml GT Q72H PRN PRN Reason: NO BM FOR THREE DAYS Stop: 10/02/17 14:13 Mirtazapine (Remeron) 15 mg GT HS [facility] PRN Reason: Protocol Stop: 10/02/17 20:59 Last Admin: 08/10/17 20:41 Dose: 15 mg Miscellaneous (Clinical Monitoring) 1 ea MC PRN PRN PRN Reason: RENAL Stop: 10/05/17 11:28 Miscellaneous (Zosyn Iv Per Pharmacy) 1 ea MC PRN PRN PRN Reason: PROTOCOL Stop: 10/05/17 15:59 Miscellaneous (Probiotic Screen) 1 ea MC PRN PRN PRN Reason: PROTOCOL Stop: 10/06/17 14:14 Multivitamins/Vitamin C (Theragran) 1 tab PO DAILY [facility] Stop: 10/03/17 08:59 Last Admin: 08/11/17 10:17 Dose: 1 tab Ondansetron HCl (Zofran Odt) 4 mg PO Q6HR PRN PRN Reason: Nausea / Vomiting Stop: 10/02/17 14:13 Last Admin: 08/09/17 08:41 Dose: 4 mg Pantoprazole Sodium (Protonix) 40 mg IVP DAILY [facility] Stop: 10/02/17 08:59 Last Admin: 08/11/17 10:17 Dose: 40 mg Simethicone (Mylicon) 80 mg GT Q6H PRN PRN Reason: GAS PAIN Stop: 10/02/17 14:13 Sodium Phosphate (Fleet Enema) 118 ml RC PRN PRN PRN Reason: IF MOM/DULCOLAX INEFFECTIVE Stop: 10/02/17 14:13 Zinc Sulfate (Zinc Sulfate) 220 mg GT DAILY [facility] Stop: 10/03/17 08:59 Last Admin: 08/11/17 10:19 Dose: 220 mg General: no acute distress, well developed, well nourished HEENT: atraumatic, normocephalic, PERRLA Neck: supple, tracheostomy Cardiovascular: S1S2, regular Lungs: clear to auscultation bilaterally, clear to percussion Abdomen: soft, no tender, no distended, no rebound Extremities: no cyanosis, no clubbing, no edema Neurological: awake, alert, oriented Skin: intact - Procedures Procedures: Procedures Procedure Code Date BLOOD TRANSFUSION SERVICE 35477 08/02/17 EXCISION OF STOMACH, ENDO, DIAGN [id number] 07/10/17 INSPECTION OF LOWER INTESTINAL TRACT, ENDO [id number] 07/10/17 PERFORMANCE OF URINARY FILTRATION, <6 HRS/DAY [id number] 07/10/17 RESPIRATORY VENTILATION, GREATER THAN 96 CONSECUTIVE HOURS [id number] 08/02/17 TRANSFUSE NONAUT RED BLOOD CELLS IN PERIPH VEIN, PERC [id number] 08/02/17 Infectious Disease Assmt/Plan - Assessment Assessment: 1. Septic shock. improved. 2. Gram-negative negative bacteremia treated 3. Pneumonia. 4. 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 5. Diabetes mellitus type 2. 6. Obesity. - Plan Plan: Continue zosyn for few days.(total 10 days). Nutritional Asmnt/Malnutr-PDOC - Dietary Evaluation Malnutrition Findings (Please click <Entered> for more info): Nutritional Asmnt/Malnutrition Start: 08/05/17 15: 53 Text: Status: Complete Freq: Document 08/05/17 15:53 HEIDY (Rec: 08/05/17 16:19 [facility] Nutritional Asmnt/Malnutrition Patient General Information Nutritional Screening High Risk Diagnosis sepsis, respiratory failure, ESRD Pertinent Medical Hx/Surgical Hx ESRD on HD, respiratory failure with tracheostomy, dysphagia, a fib, anemia, HTN, GERD Subjective Information Pt on vent, not able to interview. Pt was on TF Novosource Renal 30ml/hr continuous, NPO today for surgery. Pt has dialysis ordred per nurse note. Current Diet Order/ Nutrition Support NPO on 08/05 Pertinent Medications vit C, vit D3, colace, novolog , remeron, theragran, protonix , zinc Pertinent Labs 08/05 Na 134, K 3.6, Cl 102, BUN 77, Cr 4.2, Glucose 216, POC 224-233 08/02 A1c 7.7 Nutritional Hx/Data Height 1.6 m Height (Calculated Centimeters) 160.0 Current Weight (lbs) 87.543 kg Weight (Calculated Kilograms) 87.5 Weight (Calculated Grams) 53835.3 [place] Body Weight 115 Body Mass Index (BMI) 34.2 Weight Status Obese GI Symptoms GI Symptoms None Last BM 08/04 Difficult in: None Skin Integrity/Comment: reddened to left/right inner thigh, right lateral index finger, right/left arm; skin tear to left abdominal fold; pressure area to coccy/sacral Estimated Nutritional Goals BEE in Kcals: Adj wt of IBW Calories/Kcals/Kg 30-35 adj wt 61kg Kcals Calculated 7985-4383 Protein: Adj wt of IBW Protein g/k.2-1.4 Protein Calculated 73-85 Fluid: ml 1830-2135ml (1ml/kcal) Nutritional Problem 1. Problem Problem altered nutrition related lab values Etiology hx of ESRD, endocrine dysfunction Signs/Symptoms: BUN 77, Cr 4.2, Glucose 216, POC 224-233, A1c 7.7 Malnutrition Alert Protein-Calorie Malnutrition N/A Is there a minimum of two criteria No selected? Query Text:Check all the applicable criteria. A minimum of two criteria are recommended for diagnosis of either severe or non-severe malnutrition. Intervention/Recommendation Comments 1. Resume TF Novosource Renal 30ml/hr continuous as ordered. increase to goal rate of 40ml /hr continuous as tolerated. This will provide 1920kcal, 87g protein and 688ml free water, meeting 100% of nutritional needs 2. Monitor TF rate, tolerance, wt weekly, skin integrity and labs 3. F/U as high risk in 2-3 days, 3-3/ Expected Outcomes/Goals Expected Outcomes/Goals 1. Pt to meet at least 75% of nutritional needs via nutrition support with tolerance 2. Wt stability, skin to remain intact, labs to approach WNL.
--- NOTE | 2017-08-11 13:58 | General Progress Note ---
Subjective - Review of Systems Service Date: 08/11/17 Subjective: more awake, interacting, wants head hier, on vent Objective - Results Result Diagrams: 08/11/17 04:45 08/11/17 04:45 Recent Labs: Laboratory Last Values WBC 12.7 Th/cmm (4.8-10.8) H 08/11/17 04:45 RBC 2.77 Mil/cmm (3.80-5.20) L 08/11/17 04:45 Hgb 8.6 gm/dL (12-16) L 08/11/17 04:45 Hct 25.9 % (41.0-60) L 08/11/17 04:45 MCV 93.7 fl (81-100) 08/11/17 04:45 MCH 30.9 pg (27.0-31.0) 08/11/17 04:45 MCHC Differential 33.0 pg (28.0-36.0) 08/11/17 04:45 RDW 17.9 % (11.5-20.0) 08/11/17 04:45 Plt Count 286 Th/cmm (150-400) D 08/11/17 04:45 MPV 11.6 fl 08/11/17 04:45 Neutrophils % 80.5 % (40.0-80.0) H 08/10/17 04:30 Band Neutrophils % 4 % (0-10) 08/11/17 04:45 Lymphocytes % 4.6 % (20.0-50.0) L 08/10/17 04:30 Monocytes % 11.8 % (2.0-10.0) H 08/10/17 04:30 Eosinophils % 3.1 % (0.0-5.0) 08/10/17 04:30 Basophils % 0.0 % (0.0-2.0) 08/10/17 04:30 Neutrophils (Manual) 81 % (40-80) H 08/11/17 04:45 Lymphocytes 8 % (20-50) L 08/11/17 04:45 Monocytes 3 % (2-10) 08/11/17 04:45 Eosinophils 4 % (0-5) 08/11/17 04:45 Basophils 1 % (0-3) 08/07/17 05:45 Hypochromia 1+ 08/02/17 15:37 Platelet Estimate ADEQUATE (NORMAL) 08/11/17 04:45 Platelet Morphology NORMAL (NORMAL) 08/02/17 15:37 Anisocytosis 1+ 08/07/17 05:45 Crenated Cell 2+ 08/02/17 15:37 RBC Morph Micro Appear ABNORMAL (NORMAL) 08/02/17 15:37 PT 12.9 SECONDS (9.5-11.5) H 08/02/17 13:58 INR 1.23 (0.5-1.4) 08/02/17 13:58 PTT (Actin FS) 33.6 SECONDS (26.0-38.0) 08/02/17 13:58 Specimen Source Arterial 08/03/17 08:58 Sample Site Right Radial 08/03/17 08:58 pH 7.42 (7.35-7.45) 08/03/17 08:58 pCO2 37.0 mmHg (35.0-45.0) 08/03/17 08:58 pO2 204.0 mmHg (80.0-100.0) H 08/03/17 08:58 HCO3 24.8 mEq/L (20.0-26.0) 08/03/17 08:58 Base Excess -0.2 mEq/L (-3.0-3.0) 08/03/17 08:58 O2 Saturation 100.0 % (92.0-100.0) 08/03/17 08:58 Rhett Test Positive 08/03/17 08:58 Vent Rate 12 08/03/17 08:58 Inspired O2 60 08/03/17 08:58 Tidal Volume 450 08/03/17 08:58 PEEP 5 08/03/17 08:58 Pressure (ins/psv/peep) NA 08/03/17 08:58 Critical Value LZHANG 08/03/17 08:58 Sodium 134 mEq/L (136-145) L 08/11/17 04:45 Potassium 3.8 mEq/L (3.5-5.1) 08/11/17 04:45 Chloride 97 mEq/L (98-107) L 08/11/17 04:45 Carbon Dioxide 27.5 mEq/L (21.0-31.0) 08/11/17 04:45 Anion Gap 13.3 (7.0-16.0) 08/11/17 04:45 BUN 50 mg/dL (7-25) H 08/11/17 04:45 Creatinine 3.1 mg/dL (0.6-1.2) H 08/11/17 04:45 Est GFR ( Amer) TNP 08/11/17 04:45 Est GFR (Non-Af Amer) TNP 08/11/17 04:45 BUN/Creatinine Ratio 16.1 08/11/17 04:45 Glucose 240 mg/dL (70-105) H 08/11/17 04:45 POC Glucose 305 MG/DL (70 - 105) H 08/11/17 12:58 Hemoglobin A1c % 7.7 % (4.0-6.0) H 08/02/17 15:37 Whole Bld Lactic Acid 1.97 mmol/L (0.60-1.99) 08/02/17 13:49 Calcium 8.6 mg/dL (8.6-10.3) 08/11/17 04:45 Magnesium 1.7 mg/dL (1.9-2.7) L 08/10/17 04:30 Iron 10 ug/dL (27-139) L 08/02/17 13:56 TIBC 135 ug/dL (250-450) L 08/02/17 13:56 Iron Saturation 7 % (15-55) L 08/02/17 13:56 Unsaturated IBC 125 ug/dL (118-369) 08/02/17 13:56 Ferritin 588 ng/mL (15-150) H 08/02/17 13:56 Total Bilirubin 0.6 mg/dL (0.3-1.0) 08/09/17 06:34 Direct Bilirubin 0.09 mg/dL (0.0-0.2) 08/02/17 13:57 AST 21 U/L (13-39) 08/09/17 06:34 ALT 12 U/L (7-52) 08/09/17 06:34 Alkaline Phosphatase 91 U/L (34-104) 08/09/17 06:34 Troponin I 1.16 ng/mL (0.01-0.05) H* D 08/04/17 06:30 B-Natriuretic Peptide 372.0 pg/mL (5.0-100.0) H 08/05/17 06:15 Total Protein 6.4 gm/dL (6.0-8.3) 08/09/17 06:34 Albumin 2.9 gm/dL (3.7-5.3) L 08/09/17 06:34 Globulin 3.5 gm/dL 08/09/17 06:34 Albumin/Globulin Ratio 0.8 (1.0-1.8) L 08/09/17 06:34 Triglycerides 132 mg/dL (<150) 08/04/17 06:30 Cholesterol 55 mg/dL (<200) 08/04/17 06:30 LDL Cholesterol Direct 16 mg/dL (75-193) L 08/04/17 06:30 HDL Cholesterol 13 mg/dL (23-92) L 08/04/17 06:30 Amylase 12 U/L (29-103) L 08/02/17 13:43 Lipase 4 U/L (11-82) L 08/02/17 13:43 TSH 3.74 uIU/ml (0.34-5.60) 08/04/17 06:30 Stool Occult Blood POSITIVE (NEGATIVE) H 08/03/17 17:50 Random Vancomycin 14.8 ug/mL (5.0-40.0) 08/09/17 06:34 Hepatitis A IgM Ab Negative (Negative) 08/08/17 08:15 Hep Bs Antigen Negative (Negative) 08/08/17 08:15 Hep B Core IgM Ab Negative (Negative) 08/08/17 08:15 Hepatitis C Antibody <0.1 s/co ratio (0.0-0.9) 08/08/17 08:15 Blood Type A POSITIVE 08/02/17 20:54 Antibody Screen POSITIVE 08/02/17 20:54 Crossmatch See Detail 08/02/17 20:54 - Physical Exam Vitals and I&O: Vital Signs Temp 98.5 F 08/11/17 08:00 Pulse 82 08/11/17 12:15 Resp 16 08/11/17 12:00 BP 132/39 08/11/17 12:15 Pulse Ox 100 08/11/17 12:00 Intake & Output 08/10/17 08/11/17 08/11/17 18:59 06:59 18:59 Intake Total 308 660.077 205.923 Balance 308 660.077 205.923 Weight (lbs) 94.801 kg Intake: Intake, IV Amount 308 460.077 205.923 Norepinephrine 8 mg In 258 310.077 205.923 Dextrose 5% 250 ml @ 0 MCG/MIN IV TITR PRN Rx#: [id number] Piperacillin Sodium/ 50 150 Tazobact 2.25 gm In Sodium Chloride 0.9% 50 ml @ 100 mls/hr IV Q6HR [facility] Rx#:[id number] Other 200 Other: # Bowel Movements 1 Stool Characteristics Soft Formed Brown Active Medications: Current Medications Acetaminophen (Tylenol 650mg/20.3ml Suspension) 650 mg GT DAILY [facility] Stop: 10/03/17 08:59 Last Admin: 08/11/17 10:19 Dose: 650 mg Albuterol/Ipratropium (Duoneb Neb) 3 ml HHN Q4HRT [facility] Stop: 10/02/17 10:59 Last Admin: 08/11/17 11:47 Dose: 3 ml Ascorbic Acid (Vitamin C) 500 mg PO DAILY [facility] Stop: 10/03/17 08:59 Last Admin: 08/11/17 10:17 Dose: 500 mg Aspirin (Aspirin Chewable) 81 mg GT DAILY [facility] Stop: 10/03/17 08:59 Last Admin: 08/11/17 10:17 Dose: 81 mg Atorvastatin Calcium (Lipitor) 40 mg GT HS [facility] Stop: 10/03/17 20:59 Last Admin: 08/10/17 20:41 Dose: 40 mg Bisacodyl (Dulcolax 10 Mg Supp) 10 mg RC Q72HR PRN PRN Reason: IF MOM INEFFECTIVE Stop: 10/02/17 14:13 Chlorhexidine Gluconate (Peridex) 15 ml MM 0800,2000 [facility] Stop: 10/02/17 07:59 Last Admin: 08/11/17 10:18 Dose: 15 ml Cholecalciferol (Vitamin D3) 1,000 iu GT DAILY [facility] Stop: 10/03/17 08:59 Last Admin: 08/11/17 10:17 Dose: 1,000 iu Diltiazem HCl (Cardizem) 5 mg IVP Q4H PRN PRN Reason: INCREASE HEART RATE Stop: 10/01/17 21:59 Last Admin: 08/11/17 04:45 Dose: 5 mg Diltiazem HCl (Cardizem) 60 mg PO Q6HR [facility] Stop: 10/10/17 17:59 Docusate Sodium (Colace) 100 mg PO DAILY [facility] Stop: 10/03/17 08:59 Last Admin: 08/11/17 10:18 Dose: 100 mg Dopamine HCl/Dextrose (Dopamine) 400 mg in 250 mls @ 0 mls/hr IV TITR PRN; Protocol; Per Protocol PRN Reason: BP MAINTENANCE (PER PROTOCOL) Stop: 10/02/17 07:47 Norepinephrine Bitartrate 8 mg (/ Dextrose) 258 mls @ 0 mls/hr IV TITR PRN; Protocol; 0 MCG/MIN PRN Reason: BP MAINTENANCE (PER PROTOCOL) Stop: 10/05/17 13:59 Last Admin: 08/11/17 10:20 Dose: 10 mcg/min, 19.35 mls/hr Piperacillin Sod/Tazobactam (Sod 2.25 gm/ Sodium Chloride) 50 mls @ 100 mls/hr IV Q6HR [facility] Stop: 10/05/17 17:59 Last Admin: 08/11/17 12:54 Dose: 100 mls/hr Insulin Aspart (Novolog Insulin Sliding Scale) 0 units SUBQ Q6HR [facility] PRN Reason: Protocol Stop: 10/02/17 00:00 Last Admin: 08/11/17 12:59 Dose: 8 units Lactobacillus Rhamnosus (Culturelle 15b) 1 each PO DAILY [facility] Stop: 10/07/17 08:59 Last Admin: 08/11/17 10:17 Dose: 1 each Lorazepam (Ativan) 1 mg IVP Q2H PRN; Protocol PRN Reason: Restlessness Stop: 10/09/17 09:44 Last Admin: 08/11/17 13:13 Dose: 1 mg Magnesium Hydroxide (Milk Of Magnesia) 30 ml GT Q72H PRN PRN Reason: NO BM FOR THREE DAYS Stop: 10/02/17 14:13 Mirtazapine (Remeron) 15 mg GT HS [facility] PRN Reason: Protocol Stop: 10/02/17 20:59 Last Admin: 08/10/17 20:41 Dose: 15 mg Miscellaneous (Clinical Monitoring) 1 ea MC PRN PRN PRN Reason: RENAL Stop: 10/05/17 11:28 Miscellaneous (Zosyn Iv Per Pharmacy) 1 ea MC PRN PRN PRN Reason: PROTOCOL Stop: 10/05/17 15:59 Miscellaneous (Probiotic Screen) 1 ea MC PRN PRN PRN Reason: PROTOCOL Stop: 10/06/17 14:14 Multivitamins/Vitamin C (Theragran) 1 tab PO DAILY [facility] Stop: 10/03/17 08:59 Last Admin: 08/11/17 10:17 Dose: 1 tab Ondansetron HCl (Zofran Odt) 4 mg PO Q6HR PRN PRN Reason: Nausea / Vomiting Stop: 10/02/17 14:13 Last Admin: 08/09/17 08:41 Dose: 4 mg Pantoprazole Sodium (Protonix) 40 mg IVP DAILY [facility] Stop: 10/02/17 08:59 Last Admin: 08/11/17 10:17 Dose: 40 mg Simethicone (Mylicon) 80 mg GT Q6H PRN PRN Reason: GAS PAIN Stop: 10/02/17 14:13 Sodium Phosphate (Fleet Enema) 118 ml RC PRN PRN PRN Reason: IF MOM/DULCOLAX INEFFECTIVE Stop: 10/02/17 14:13 Zinc Sulfate (Zinc Sulfate) 220 mg GT DAILY [facility] Stop: 10/03/17 08:59 Last Admin: 08/11/17 10:19 Dose: 220 mg General: Alert, No acute distress (scattered rhonchi) HEENT: Atraumatic, PERRLA, EOMI, Mucous membr. moist/pink Neck: Supple, Other (TRACH) Cardiovascular: Regular rate Lungs: Other (few rhonchi) Abdomen: Bowel sounds, Soft, Other (INTACT GT) Extremities: Edema (upper wxtrmities), Other (upper ext) Neurological: Sensation intact Skin: no Rash Psych/Mental Status: Mood NL - Procedures Procedures: Procedures Procedure Code Date BLOOD TRANSFUSION SERVICE 09807 08/02/17 EXCISION OF STOMACH, ENDO, DIAGN [id number] 07/10/17 INSPECTION OF LOWER INTESTINAL TRACT, ENDO [id number] 07/10/17 PERFORMANCE OF URINARY FILTRATION, <6 HRS/DAY [id number] 07/10/17 RESPIRATORY VENTILATION, GREATER THAN 96 CONSECUTIVE HOURS [id number] 08/02/17 TRANSFUSE NONAUT RED BLOOD CELLS IN PERIPH VEIN, PERC 67666P4 08/02/17 Assessment/Plan - Assessment Assessment: 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/L UE Edema, Cellulitis Shock Sepsis RF on Vent Acute on Chronic Decomp CHF G (-) Septicemia - Plan Plan: Lab - Result Diagrams 08/04/17 06:30 08/04/17 06:30 Current Medications Acetaminophen (Tylenol 650mg/20.3ml Suspension) 650 mg GT DAILY [facility] Stop: 10/03/17 08:59 Last Admin: 08/04/17 09:18 Dose: 650 mg Albuterol/Ipratropium (Duoneb Neb) 3 ml HHN Q4HRT [facility] Stop: 10/02/17 10:59 Last Admin: 08/04/17 11:25 Dose: 3 ml Ascorbic Acid (Vitamin C) 500 mg PO DAILY [facility] Stop: 10/03/17 08:59 Last Admin: 08/04/17 09:18 Dose: 500 mg Aspirin (Aspirin Chewable) 81 mg GT DAILY [facility] Stop: 10/03/17 08:59 Last Admin: 08/04/17 09:18 Dose: 81 mg Atorvastatin Calcium (Lipitor) 40 mg GT HS [facility] PRN Reason: Protocol Stop: 10/02/17 20:59 Last Admin: 08/03/17 20:19 Dose: 40 mg Bisacodyl (Dulcolax 10 Mg Supp) 10 mg RC Q72HR PRN PRN Reason: IF MOM INEFFECTIVE Stop: 10/02/17 14:13 Bisacodyl (Dulcolax 10 Mg Supp) 10 mg RC PRN PRN PRN Reason: IF MOM INEFFECTIVE Stop: 10/02/17 14:13 Chlorhexidine Gluconate (Peridex) 15 ml MM 0800,2000 [facility] Stop: 10/02/17 07:59 Last Admin: 08/04/17 08:00 Dose: 15 ml Cholecalciferol (Vitamin D3) 1,000 iu GT DAILY [facility] Stop: 10/03/17 08:59 Last Admin: 08/04/17 09:18 Dose: 1,000 iu Diltiazem HCl (Cardizem) 5 mg IVP Q4H PRN PRN Reason: INCREASE HEART RATE Stop: 10/01/17 21:59 Last Admin: 08/03/17 01:38 Dose: 5 mg Docusate Sodium (Colace) 100 mg PO DAILY [facility] Stop: 10/03/17 08:59 Last Admin: 08/04/17 09:18 Dose: 100 mg Heparin Sodium (Porcine) (Heparin) 5,000 units HD UD [facility] Stop: 08/05/17 08:59 Last Admin: 08/04/17 09:19 Dose: Not Given Fluconazole (Diflucan) 200 mg in 100 mls @ 100 mls/hr IV Q24HR [facility] Stop: 10/02/17 14:59 Last Infusion: 08/03/17 15:40 Dose: Infused Meropenem 500 mg/ Sodium (Chloride) 100 mls @ 100 mls/hr IV Q24H [facility] Stop: 10/02/17 12:59 Last Admin: 08/04/17 13:17 Dose: 100 mls/hr Dopamine HCl/Dextrose (Dopamine) 400 mg in 250 mls @ 0 mls/hr IV TITR PRN; Protocol; Per Protocol PRN Reason: BP MAINTENANCE (PER PROTOCOL) Stop: 10/02/17 07:47 Norepinephrine Bitartrate 4 mg (/ Dextrose) 254 mls @ 0 mls/hr IV TITR PRN; Protocol; Per Protocol PRN Reason: BP MAINTENANCE (PER PROTOCOL) Stop: 10/02/17 08:31 Last Admin: 08/03/17 23:47 Dose: 4 mcg/min, 15.24 mls/hr Colistimethate Sodium 80 mg/ (Sodium Chloride) 100 mls @ 100 mls/hr IV Q36H [facility] Stop: 10/02/17 20:59 Last Infusion: 08/03/17 21:20 Dose: Infused Insulin Aspart (Novolog Insulin Sliding Scale) 0 units SUBQ Q6HR [facility] PRN Reason: Protocol Stop: 10/02/17 00:00 Last Admin: 08/04/17 11:30 Dose: 6 units Lorazepam (Ativan) 1 mg IVP Q2HR PRN; Protocol PRN Reason: Restlessness Stop: 10/01/17 21:18 Last Admin: 08/04/17 01:05 Dose: 1 mg Magnesium Hydroxide (Milk Of Magnesia) 30 ml GT Q72H PRN PRN Reason: NO BM FOR THREE DAYS Stop: 10/02/17 14:13 Mirtazapine (Remeron) 15 mg GT HS [facility] PRN Reason: Protocol Stop: 10/02/17 20:59 Last Admin: 08/03/17 20:19 Dose: 15 mg Miscellaneous (Vancomycin Iv Per Pharmacy) 1 ea MC PRN PRN PRN Reason: PROTOCOL Stop: 10/01/17 20:42 Miscellaneous (Zosyn Iv Per Pharmacy) 1 ea MC PRN PRN PRN Reason: PROTOCOL Stop: 10/01/17 20:42 Multivitamins/Vitamin C (Theragran) 1 tab PO DAILY [facility] Stop: 10/03/17 08:59 Last Admin: 08/04/17 09:18 Dose: 1 tab Ondansetron HCl (Zofran Odt) 4 mg PO Q6HR PRN PRN Reason: Nausea / Vomiting Stop: 10/02/17 14:13 Pantoprazole Sodium (Protonix) 40 mg IVP DAILY [facility] Stop: 10/02/17 08:59 Last Admin: 08/04/17 09:18 Dose: 40 mg Simethicone (Mylicon) 80 mg GT Q6H PRN PRN Reason: GAS PAIN Stop: 10/02/17 14:13 Sodium Phosphate (Fleet Enema) 118 ml RC PRN PRN PRN Reason: IF MOM/DULCOLAX INEFFECTIVE Stop: 10/02/17 14:13 Temazepam (Restoril) 15 mg GT HS PRN; Protocol PRN Reason: Insomnia Stop: 10/02/17 14:13 Last Admin: 08/03/17 20:19 Dose: 15 mg Zinc Sulfate (Zinc Sulfate) 220 mg GT DAILY [facility] Stop: 10/03/17 08:59 Last Admin: 08/04/17 09:18 Dose: 220 Lab - Result Diagrams 08/11/17 04:45 08/11/17 04:45 schedule for HD in am Venous & Arterial duplex scans were negative for DVT or clots CXR still showed persistent b/l effusions replace K f/u electrolytes. cbc Nutritional Asmnt/Malnutr-PDOC - Dietary Evaluation Malnutrition Findings (Please click <Entered> for more info): Nutritional Asmnt/Malnutrition Start: 08/05/17 15: 53 Text: Status: Complete Freq: Document 08/05/17 15:53 HEIDY (Rec: 08/05/17 16:19 HEIDY [email or web address]) Nutritional Asmnt/Malnutrition Patient General Information Nutritional Screening High Risk Diagnosis sepsis, respiratory failure, ESRD Pertinent Medical Hx/Surgical Hx ESRD on HD, respiratory failure with tracheostomy, dysphagia, a fib, anemia, HTN, GERD Subjective Information Pt on vent, not able to interview. Pt was on TF Novosource Renal 30ml/hr continuous, NPO today for surgery. Pt has dialysis ordred per nurse note. Current Diet Order/ Nutrition Support NPO on 08/05 Pertinent Medications vit C, vit D3, colace, novolog , remeron, theragran, protonix , zinc Pertinent Labs 08/05 Na 134, K 3.6, Cl 102, BUN 77, Cr 4.2, Glucose 216, POC 224-233 08/02 A1c 7.7 Nutritional Hx/Data Height 1.6 m Height (Calculated Centimeters) 160.0 Current Weight (lbs) 87.543 kg Weight (Calculated Kilograms) 87.5 Weight (Calculated Grams) 57170.3 Mascot Body Weight 115 Body Mass Index (BMI) 34.2 Weight Status Obese GI Symptoms GI Symptoms None Last BM 08/04 Difficult in: None Skin Integrity/Comment: reddened to left/right inner thigh, right lateral index finger, right/left arm; skin tear to left abdominal fold; pressure area to coccy/sacral Estimated Nutritional Goals BEE in Kcals: Adj wt of IBW Calories/Kcals/Kg 30-35 adj wt 61kg Kcals Calculated [id number] Protein: Adj wt of IBW Protein g/k.2-1.4 Protein Calculated 73-85 Fluid: ml 1830-2135ml (1ml/kcal) Nutritional Problem 1. Problem Problem altered nutrition related lab values Etiology hx of ESRD, endocrine dysfunction Signs/Symptoms: BUN 77, Cr 4.2, Glucose 216, POC 224-233, A1c 7.7 Malnutrition Alert Protein-Calorie Malnutrition N/A Is there a minimum of two criteria No selected? Query Text:Check all the applicable criteria. A minimum of two criteria are recommended for diagnosis of either severe or non-severe malnutrition. Intervention/Recommendation Comments 1. Resume TF Novosource Renal 30ml/hr continuous as ordered. increase to goal rate of 40ml /hr continuous as tolerated. This will provide 1920kcal, 87g protein and 688ml free water, meeting 100% of nutritional needs 2. Monitor TF rate, tolerance, wt weekly, skin integrity and labs 3. F/U as high risk in 2-3 days, 08/07-/ Expected Outcomes/Goals Expected Outcomes/Goals 1. Pt to meet at least 75% of nutritional needs via nutrition support with tolerance 2. Wt stability, skin to remain intact, labs to approach WNL.
[2017-08-11] MEDS: Diltiazem 30 mg Tab PO SCH ×2 (17:05→23:46)
[2017-08-12] MEDS: Albuterol/Ipratropium Neb 3 ML AERS HHN SCH ×6 (03:35→23:21)
[2017-08-12 05:43] LABS: ANION GAP 14.4 (7.0-16.0); BUN - UREA NITROGEN 62 mg/dL (7-25); CALCIUM SERUM 8.8 mg/dL (8.6-10.3); CARBON DIOXIDE 25.5 mEq/L (21.0-31.0); CHLORIDE 94 mEq/L (98-107); CREATININE - SERUM 3.4 mg/dL (0.6-1.2); GLUCOSE 349 mg/dL (70-105); POTASSIUM SERUM 3.9 mEq/L (3.5-5.1); SODIUM SERUM 130 mEq/L (136-145)
[2017-08-12 06:05] LABS: % EOSINOPHILS 1.9 % (0.0-5.0); % LYMPHOCYTES 4.7 % (20.0-50.0); % MONOCYTES 8.3 % (2.0-10.0); % NEUTROPHILS 85.1 % (40.0-80.0); EOSINOPHILE ABSOLUTE 0.3 Th/cmm (0.1-0.4); HEMATOCRIT 23.7 % (41.0-60); LYMPHOCYTE ABSOLUTE 0.7 Th/cmm (1.5-3.0); MEAN CELL VOLUME 93.9 fl (81-100); MEAN CORPUSCULAR HEMOGLOBIN 31.2 pg (27.0-31.0); MEAN CORPUSCULAR HGB CONC 33.2 pg (28.0-36.0); MEAN PLATELET VOLUME 11.7 fl; MONOCYTE ABSOLUTE 1.2 Th/cmm (0.3-1.0); NEUTROPHILE ABSOLUTE 12.5 Th/cmm (1.8-8.0); PLATELET COUNT 300 Th/cmm (150-400); RED BLOOD COUNT 2.53 Mil/cmm (3.80-5.20); RED CELL DISTRIBUTION WIDTH 17.1 % (11.5-20.0)
[2017-08-12 06:08] LABS: WHITE BLOOD COUNT 14.7 Th/cmm (4.8-10.8)
[2017-08-12 06:09] LABS: HEMOGLOBIN 7.9 gm/dL (12-16)
[2017-08-12] MEDS: Diltiazem 30 mg Tab PO SCH (06:29)
[2017-08-12] MEDS: Piperacillin/Tazobact 2.25 gm in 0.9% NS 50 ML IV SCH ×3 (06:38→18:12)
[2017-08-12] MEDS: INSULIN ASPART SLIDING SCALE 100 UNITS/ML UNIT SUBQ SCH ×3 (06:44→18:21)
--- NOTE | 2017-08-12 07:34 | GI Progress Note ---
Subjective - Review of Systems Subjective: NO GI BLEEDING Objective - Results Result Diagrams: 08/12/17 05:15 08/12/17 05:15 Recent Labs: Laboratory Last Values WBC 14.7 Th/cmm (4.8-10.8) H 08/12/17 05:15 RBC 2.53 Mil/cmm (3.80-5.20) L 08/12/17 05:15 Hgb 7.9 gm/dL (12-16) L* 08/12/17 05:15 Hct 23.7 % (41.0-60) L 08/12/17 05:15 MCV 93.9 fl (81-100) 08/12/17 05:15 MCH 31.2 pg (27.0-31.0) H 08/12/17 05:15 MCHC Differential 33.2 pg (28.0-36.0) 08/12/17 05:15 RDW 17.1 % (11.5-20.0) 08/12/17 05:15 Plt Count 300 Th/cmm (150-400) 08/12/17 05:15 MPV 11.7 fl 08/12/17 05:15 Neutrophils % 85.1 % (40.0-80.0) H 08/12/17 05:15 Band Neutrophils % 4 % (0-10) 08/11/17 04:45 Lymphocytes % 4.7 % (20.0-50.0) L 08/12/17 05:15 Monocytes % 8.3 % (2.0-10.0) 08/12/17 05:15 Eosinophils % 1.9 % (0.0-5.0) 08/12/17 05:15 Basophils % 0.0 % (0.0-2.0) 08/12/17 05:15 Neutrophils (Manual) 81 % (40-80) H 08/11/17 04:45 Lymphocytes 8 % (20-50) L 08/11/17 04:45 Monocytes 3 % (2-10) 08/11/17 04:45 Eosinophils 4 % (0-5) 08/11/17 04:45 Basophils 1 % (0-3) 08/07/17 05:45 Hypochromia 1+ 08/02/17 15:37 Platelet Estimate ADEQUATE (NORMAL) 08/11/17 04:45 Platelet Morphology NORMAL (NORMAL) 08/02/17 15:37 Anisocytosis 1+ 08/07/17 05:45 Crenated Cell 2+ 08/02/17 15:37 RBC Morph Micro Appear ABNORMAL (NORMAL) 08/02/17 15:37 PT 12.9 SECONDS (9.5-11.5) H 08/02/17 13:58 INR 1.23 (0.5-1.4) 08/02/17 13:58 PTT (Actin FS) 33.6 SECONDS (26.0-38.0) 08/02/17 13:58 Specimen Source Arterial 08/03/17 08:58 Sample Site Right Radial 08/03/17 08:58 pH 7.42 (7.35-7.45) 08/03/17 08:58 pCO2 37.0 mmHg (35.0-45.0) 08/03/17 08:58 pO2 204.0 mmHg (80.0-100.0) H 08/03/17 08:58 HCO3 24.8 mEq/L (20.0-26.0) 08/03/17 08:58 Base Excess -0.2 mEq/L (-3.0-3.0) 08/03/17 08:58 O2 Saturation 100.0 % (92.0-100.0) 08/03/17 08:58 Rhett Test Positive 08/03/17 08:58 Vent Rate 12 08/03/17 08:58 Inspired O2 60 08/03/17 08:58 Tidal Volume 450 08/03/17 08:58 PEEP 5 08/03/17 08:58 Pressure (ins/psv/peep) NA 08/03/17 08:58 Critical Value LZHANG 08/03/17 08:58 Sodium 130 mEq/L (136-145) L 08/12/17 05:15 Potassium 3.9 mEq/L (3.5-5.1) 08/12/17 05:15 Chloride 94 mEq/L (98-107) L 08/12/17 05:15 Carbon Dioxide 25.5 mEq/L (21.0-31.0) 08/12/17 05:15 Anion Gap 14.4 (7.0-16.0) 08/12/17 05:15 BUN 62 mg/dL (7-25) H 08/12/17 05:15 Creatinine 3.4 mg/dL (0.6-1.2) H 08/12/17 05:15 Est GFR ( Amer) TNP 08/12/17 05:15 Est GFR (Non-Af Amer) TNP 08/12/17 05:15 BUN/Creatinine Ratio 18.2 08/12/17 05:15 Glucose 349 mg/dL (70-105) H 08/12/17 05:15 POC Glucose 285 MG/DL (70 - 105) H 08/11/17 23:42 Hemoglobin A1c % 7.7 % (4.0-6.0) H 08/02/17 15:37 Whole Bld Lactic Acid 1.97 mmol/L (0.60-1.99) 08/02/17 13:49 Calcium 8.8 mg/dL (8.6-10.3) 08/12/17 05:15 Magnesium 1.7 mg/dL (1.9-2.7) L 08/10/17 04:30 Iron 10 ug/dL (27-139) L 08/02/17 13:56 TIBC 135 ug/dL (250-450) L 08/02/17 13:56 Iron Saturation 7 % (15-55) L 08/02/17 13:56 Unsaturated IBC 125 ug/dL (118-369) 08/02/17 13:56 Ferritin 588 ng/mL (15-150) H 08/02/17 13:56 Total Bilirubin 0.6 mg/dL (0.3-1.0) 08/09/17 06:34 Direct Bilirubin 0.09 mg/dL (0.0-0.2) 08/02/17 13:57 AST 21 U/L (13-39) 08/09/17 06:34 ALT 12 U/L (7-52) 08/09/17 06:34 Alkaline Phosphatase 91 U/L (34-104) 08/09/17 06:34 Troponin I 1.16 ng/mL (0.01-0.05) H* D 08/04/17 06:30 B-Natriuretic Peptide 372.0 pg/mL (5.0-100.0) H 08/05/17 06:15 Total Protein 6.4 gm/dL (6.0-8.3) 08/09/17 06:34 Albumin 2.9 gm/dL (3.7-5.3) L 08/09/17 06:34 Globulin 3.5 gm/dL 08/09/17 06:34 Albumin/Globulin Ratio 0.8 (1.0-1.8) L 08/09/17 06:34 Triglycerides 132 mg/dL (<150) 08/04/17 06:30 Cholesterol 55 mg/dL (<200) 08/04/17 06:30 LDL Cholesterol Direct 16 mg/dL (75-193) L 08/04/17 06:30 HDL Cholesterol 13 mg/dL (23-92) L 08/04/17 06:30 Amylase 12 U/L (29-103) L 08/02/17 13:43 Lipase 4 U/L (11-82) L 08/02/17 13:43 TSH 3.74 uIU/ml (0.34-5.60) 08/04/17 06:30 Stool Occult Blood POSITIVE (NEGATIVE) H 08/03/17 17:50 Random Vancomycin 14.8 ug/mL (5.0-40.0) 08/09/17 06:34 Hepatitis A IgM Ab Negative (Negative) 08/08/17 08:15 Hep Bs Antigen Negative (Negative) 08/08/17 08:15 Hep B Core IgM Ab Negative (Negative) 08/08/17 08:15 Hepatitis C Antibody <0.1 s/co ratio (0.0-0.9) 08/08/17 08:15 Blood Type A POSITIVE 08/02/17 20:54 Antibody Screen POSITIVE 08/02/17 20:54 Crossmatch See Detail 08/02/17 20:54 - Physical Exam Vitals and I&O: Vital Signs Temp 98.0 F 08/12/17 07:00 Pulse 100 08/12/17 07:15 Resp 13 08/12/17 07:00 BP 100/39 08/12/17 07:15 Pulse Ox 99 08/12/17 07:00 Intake & Output 08/11/17 08/12/17 08/12/17 18:59 06:59 18:59 Intake Total 731.872 8940.532 Balance 947.863 3925.532 Weight (lbs) 94.801 kg Intake: Intake, IV Amount 305.923 371.532 Norepinephrine 8 mg In 205.923 321.532 Dextrose 5% 250 ml @ 0 MCG/MIN IV TITR PRN Rx#: [id number] Piperacillin Sodium/ 100 50 Tazobact 2.25 gm In Sodium Chloride 0.9% 50 ml @ 100 mls/hr IV Q6HR [facility] Rx#:[id number] Tube Feeding 600 Other 80 Other: # Bowel Movements 0 Active Medications: Current Medications Acetaminophen (Tylenol 650mg/20.3ml Suspension) 650 mg GT DAILY [facility] Stop: 10/03/17 08:59 Last Admin: 08/11/17 10:19 Dose: 650 mg Albuterol/Ipratropium (Duoneb Neb) 3 ml HHN Q4HRT [facility] Stop: 10/02/17 10:59 Last Admin: 08/12/17 03:35 Dose: 3 ml Ascorbic Acid (Vitamin C) 500 mg PO DAILY [facility] Stop: 10/03/17 08:59 Last Admin: 08/11/17 10:17 Dose: 500 mg Aspirin (Aspirin Chewable) 81 mg GT DAILY [facility] Stop: 10/03/17 08:59 Last Admin: 08/11/17 10:17 Dose: 81 mg Atorvastatin Calcium (Lipitor) 40 mg GT HS [facility] Stop: 10/03/17 20:59 Last Admin: 08/11/17 20:38 Dose: 40 mg Bisacodyl (Dulcolax 10 Mg Supp) 10 mg RC Q72HR PRN PRN Reason: IF MOM INEFFECTIVE Stop: 10/02/17 14:13 Chlorhexidine Gluconate (Peridex) 15 ml MM 0800,2000 [facility] Stop: 10/02/17 07:59 Last Admin: 08/11/17 21:00 Dose: 15 ml Cholecalciferol (Vitamin D3) 1,000 iu GT DAILY [facility] Stop: 10/03/17 08:59 Last Admin: 08/11/17 10:17 Dose: 1,000 iu Diltiazem HCl (Cardizem) 5 mg IVP Q4H PRN PRN Reason: INCREASE HEART RATE Stop: 10/01/17 21:59 Last Admin: 08/11/17 04:45 Dose: 5 mg Diltiazem HCl (Cardizem) 60 mg PO Q6HR [facility] Stop: 10/10/17 17:59 Last Admin: 08/12/17 06:29 Dose: 60 mg Docusate Sodium (Colace) 100 mg PO DAILY [facility] Stop: 10/03/17 08:59 Last Admin: 08/11/17 10:18 Dose: 100 mg Dopamine HCl/Dextrose (Dopamine) 400 mg in 250 mls @ 0 mls/hr IV TITR PRN; Protocol; Per Protocol PRN Reason: BP MAINTENANCE (PER PROTOCOL) Stop: 10/02/17 07:47 Norepinephrine Bitartrate 8 mg (/ Dextrose) 258 mls @ 0 mls/hr IV TITR PRN; Protocol; 0 MCG/MIN PRN Reason: BP MAINTENANCE (PER PROTOCOL) Stop: 10/05/17 13:59 Last Titration: 08/12/17 03:00 Dose: 8 mcg/min, 15.48 mls/hr Piperacillin Sod/Tazobactam (Sod 2.25 gm/ Sodium Chloride) 50 mls @ 100 mls/hr IV Q6HR [facility] Stop: 10/05/17 17:59 Last Admin: 08/12/17 06:38 Dose: 100 mls/hr Albumin Human (Albuminar 25%) 25 gm in 100 mls @ 50 mls/hr IV X1 ONE Stop: 08/12/17 15:59 Albumin Human (Albuminar 25%) 25 gm in 100 mls @ 50 mls/hr IV X1 ONE Stop: 08/12/17 16:00 Insulin Aspart (Novolog Insulin Sliding Scale) 0 units SUBQ Q6HR [facility] PRN Reason: Protocol Stop: 10/02/17 00:00 Last Admin: 08/12/17 06:44 Dose: 8 units Lactobacillus Rhamnosus (Culturelle 15b) 1 each PO DAILY [facility] Stop: 10/07/17 08:59 Last Admin: 08/11/17 10:17 Dose: 1 each Lorazepam (Ativan) 1 mg IVP Q2H PRN; Protocol PRN Reason: Restlessness Stop: 10/09/17 09:44 Last Admin: 08/12/17 06:38 Dose: 1 mg Magnesium Hydroxide (Milk Of Magnesia) 30 ml GT Q72H PRN PRN Reason: NO BM FOR THREE DAYS Stop: 10/02/17 14:13 Mirtazapine (Remeron) 15 mg GT HS [facility] PRN Reason: Protocol Stop: 10/02/17 20:59 Last Admin: 08/11/17 20:38 Dose: 15 mg Miscellaneous (Clinical Monitoring) 1 ea PRN PRN PRN Reason: RENAL Stop: 10/05/17 11:28 Miscellaneous (Zosyn Iv Per Pharmacy) 1 ea PRN PRN PRN Reason: PROTOCOL Stop: 10/05/17 15:59 Miscellaneous (Probiotic Screen) 1 ea PRN PRN PRN Reason: PROTOCOL Stop: 10/06/17 14:14 Multivitamins/Vitamin C (Theragran) 1 tab PO DAILY [facility] Stop: 10/03/17 08:59 Last Admin: 08/11/17 10:17 Dose: 1 tab Ondansetron HCl (Zofran Odt) 4 mg PO Q6HR PRN PRN Reason: Nausea / Vomiting Stop: 10/02/17 14:13 Last Admin: 08/09/17 08:41 Dose: 4 mg Pantoprazole Sodium (Protonix) 40 mg IVP DAILY [facility] Stop: 10/02/17 08:59 Last Admin: 08/11/17 10:17 Dose: 40 mg Simethicone (Mylicon) 80 mg GT Q6H PRN PRN Reason: GAS PAIN Stop: 10/02/17 14:13 Sodium Phosphate (Fleet Enema) 118 ml RC PRN PRN PRN Reason: IF MOM/DULCOLAX INEFFECTIVE Stop: 10/02/17 14:13 Zinc Sulfate (Zinc Sulfate) 220 mg GT DAILY [facility] Stop: 10/03/17 08:59 Last Admin: 08/11/17 10:19 Dose: 220 mg General: Alert, No acute distress (scattered rhonchi) HEENT: Atraumatic, PERRLA, EOMI, Mucous membr. moist/pink Neck: Supple, Other (TRACH) Cardiovascular: Regular rate Lungs: Other (few rhonchi) Abdomen: Bowel sounds, Soft, Other (INTACT GT) Extremities: Edema (upper wxtrmities), Other (upper ext) Neurological: Sensation intact Skin: no Rash Psych/Mental Status: Mood NL - Procedures Procedures: Procedures Procedure Code Date BLOOD TRANSFUSION SERVICE 32591 08/02/17 EXCISION OF STOMACH, ENDO, DIAGN [id number] 07/10/17 INSPECTION OF LOWER INTESTINAL TRACT, ENDO [id number] 07/10/17 PERFORMANCE OF URINARY FILTRATION, <6 HRS/DAY [id number] 07/10/17 RESPIRATORY VENTILATION, GREATER THAN 96 CONSECUTIVE HOURS [id number] 08/02/17 TRANSFUSE NONAUT RED BLOOD CELLS IN PERIPH VEIN, PERC [id number] 08/02/17 Assessment/Plan - Assessment Assessment: 76 YO FEMALE WITH ANEMIA STOOL OB + NO OVERT GI BLEEDING BUT COULD BE SMALL BOWEL SOURCE RECENT EGD SHOWED GASTRITIS RECENT COLO SHOWED HEMORRHOIDS SBFT SHOWED REFLUX AND DELAYED TRANSIT WITHOUT OBSTRUCTION 1.FOLLOW H/H 2.IF GI BLEEDING OCCURS THEN GET BLEEDING SCAN VS ANGIOGRAPHY
[2017-08-12] MEDS: Lactobacillus Rhamnosus GG 15 Billion CFU CAP.SPRINK PO SCH (09:01)
[2017-08-12] MEDS: Multivitamin Tab PO SCH (09:01)
[2017-08-12] MEDS: Aspirin 81mg Chewable Tab GT SCH (09:02)
[2017-08-12] MEDS: Diltiazem 5 mg/mL 5mL Vial IVP PRN (10:57)
[2017-08-12] MEDS: Chlorhexidine Gluconate 0.12% 15mL Mouthwash MM SCH ×2 (12:07→19:59)
[2017-08-12] MEDS ORDERED: Albumin 25% 25gm/100mL 25 GM/100 ML BTL IV ONE ×2 (14:00→14:01)
--- NOTE | 2017-08-12 19:11 | General Progress Note ---
Subjective - Review of Systems Service Date: 08/12/17 Subjective: more awake, interacting, on vent Objective - Results Result Diagrams: 08/12/17 05:15 08/12/17 05:15 Recent Labs: Laboratory Last Values WBC 14.7 Th/cmm (4.8-10.8) H 08/12/17 05:15 RBC 2.53 Mil/cmm (3.80-5.20) L 08/12/17 05:15 Hgb 7.9 gm/dL (12-16) L* 08/12/17 05:15 Hct 23.7 % (41.0-60) L 08/12/17 05:15 MCV 93.9 fl (81-100) 08/12/17 05:15 MCH 31.2 pg (27.0-31.0) H 08/12/17 05:15 MCHC Differential 33.2 pg (28.0-36.0) 08/12/17 05:15 RDW 17.1 % (11.5-20.0) 08/12/17 05:15 Plt Count 300 Th/cmm (150-400) 08/12/17 05:15 MPV 11.7 fl 08/12/17 05:15 Neutrophils % 85.1 % (40.0-80.0) H 08/12/17 05:15 Band Neutrophils % 4 % (0-10) 08/11/17 04:45 Lymphocytes % 4.7 % (20.0-50.0) L 08/12/17 05:15 Monocytes % 8.3 % (2.0-10.0) 08/12/17 05:15 Eosinophils % 1.9 % (0.0-5.0) 08/12/17 05:15 Basophils % 0.0 % (0.0-2.0) 08/12/17 05:15 Neutrophils (Manual) 81 % (40-80) H 08/11/17 04:45 Lymphocytes 8 % (20-50) L 08/11/17 04:45 Monocytes 3 % (2-10) 08/11/17 04:45 Eosinophils 4 % (0-5) 08/11/17 04:45 Basophils 1 % (0-3) 08/07/17 05:45 Hypochromia 1+ 08/02/17 15:37 Platelet Estimate ADEQUATE (NORMAL) 08/11/17 04:45 Platelet Morphology NORMAL (NORMAL) 08/02/17 15:37 Anisocytosis 1+ 08/07/17 05:45 Crenated Cell 2+ 08/02/17 15:37 RBC Morph Micro Appear ABNORMAL (NORMAL) 08/02/17 15:37 PT 12.9 SECONDS (9.5-11.5) H 08/02/17 13:58 INR 1.23 (0.5-1.4) 08/02/17 13:58 PTT (Actin FS) 33.6 SECONDS (26.0-38.0) 08/02/17 13:58 Specimen Source Arterial 08/03/17 08:58 Sample Site Right Radial 08/03/17 08:58 pH 7.42 (7.35-7.45) 08/03/17 08:58 pCO2 37.0 mmHg (35.0-45.0) 08/03/17 08:58 pO2 204.0 mmHg (80.0-100.0) H 08/03/17 08:58 HCO3 24.8 mEq/L (20.0-26.0) 08/03/17 08:58 Base Excess -0.2 mEq/L (-3.0-3.0) 08/03/17 08:58 O2 Saturation 100.0 % (92.0-100.0) 08/03/17 08:58 Rhett Test Positive 08/03/17 08:58 Vent Rate 12 08/03/17 08:58 Inspired O2 60 08/03/17 08:58 Tidal Volume 450 08/03/17 08:58 PEEP 5 08/03/17 08:58 Pressure (ins/psv/peep) NA 08/03/17 08:58 Critical Value LZHANG 08/03/17 08:58 Sodium 130 mEq/L (136-145) L 08/12/17 05:15 Potassium 3.9 mEq/L (3.5-5.1) 08/12/17 05:15 Chloride 94 mEq/L (98-107) L 08/12/17 05:15 Carbon Dioxide 25.5 mEq/L (21.0-31.0) 08/12/17 05:15 Anion Gap 14.4 (7.0-16.0) 08/12/17 05:15 BUN 62 mg/dL (7-25) H 08/12/17 05:15 Creatinine 3.4 mg/dL (0.6-1.2) H 08/12/17 05:15 Est GFR ( Amer) TNP 08/12/17 05:15 Est GFR (Non-Af Amer) TNP 08/12/17 05:15 BUN/Creatinine Ratio 18.2 08/12/17 05:15 Glucose 349 mg/dL (70-105) H 08/12/17 05:15 POC Glucose 263 MG/DL (70 - 105) H 08/12/17 18:18 Hemoglobin A1c % 7.7 % (4.0-6.0) H 08/02/17 15:37 Whole Bld Lactic Acid 1.97 mmol/L (0.60-1.99) 08/02/17 13:49 Calcium 8.8 mg/dL (8.6-10.3) 08/12/17 05:15 Magnesium 1.7 mg/dL (1.9-2.7) L 08/10/17 04:30 Iron 10 ug/dL (27-139) L 08/02/17 13:56 TIBC 135 ug/dL (250-450) L 08/02/17 13:56 Iron Saturation 7 % (15-55) L 08/02/17 13:56 Unsaturated IBC 125 ug/dL (118-369) 08/02/17 13:56 Ferritin 588 ng/mL (15-150) H 08/02/17 13:56 Total Bilirubin 0.6 mg/dL (0.3-1.0) 08/09/17 06:34 Direct Bilirubin 0.09 mg/dL (0.0-0.2) 08/02/17 13:57 AST 21 U/L (13-39) 08/09/17 06:34 ALT 12 U/L (7-52) 08/09/17 06:34 Alkaline Phosphatase 91 U/L (34-104) 08/09/17 06:34 Troponin I 1.16 ng/mL (0.01-0.05) H* D 08/04/17 06:30 B-Natriuretic Peptide 372.0 pg/mL (5.0-100.0) H 08/05/17 06:15 Total Protein 6.4 gm/dL (6.0-8.3) 08/09/17 06:34 Albumin 2.9 gm/dL (3.7-5.3) L 08/09/17 06:34 Globulin 3.5 gm/dL 08/09/17 06:34 Albumin/Globulin Ratio 0.8 (1.0-1.8) L 08/09/17 06:34 Triglycerides 132 mg/dL (<150) 08/04/17 06:30 Cholesterol 55 mg/dL (<200) 08/04/17 06:30 LDL Cholesterol Direct 16 mg/dL (75-193) L 08/04/17 06:30 HDL Cholesterol 13 mg/dL (23-92) L 08/04/17 06:30 Amylase 12 U/L (29-103) L 08/02/17 13:43 Lipase 4 U/L (11-82) L 08/02/17 13:43 TSH 3.74 uIU/ml (0.34-5.60) 08/04/17 06:30 Stool Occult Blood POSITIVE (NEGATIVE) H 08/03/17 17:50 Random Vancomycin 14.8 ug/mL (5.0-40.0) 08/09/17 06:34 Hepatitis A IgM Ab Negative (Negative) 08/08/17 08:15 Hep Bs Antigen Negative (Negative) 08/08/17 08:15 Hep B Core IgM Ab Negative (Negative) 08/08/17 08:15 Hepatitis C Antibody <0.1 s/co ratio (0.0-0.9) 08/08/17 08:15 Blood Type A POSITIVE 08/02/17 20:54 Antibody Screen POSITIVE 08/02/17 20:54 Antibody Identification Anti-K 08/02/17 20:54 Crossmatch See Detail 08/02/17 20:54 - Physical Exam Vitals and I&O: Vital Signs Temp 1 F 08/12/17 14:00 Pulse 133 08/12/17 18:45 Resp 12 08/12/17 18:00 BP 92/29 08/12/17 18:45 Pulse Ox 98 08/12/17 18:00 Intake & Output 08/12/17 08/12/17 08/13/17 06:59 18:59 06:59 Intake Total 1051.532 253.51 Balance 1051.532 253.51 Weight (lbs) 94.801 kg Intake: Intake, IV Amount 371.532 253.51 Norepinephrine 8 mg In 321.532 153.51 Dextrose 5% 250 ml @ 0 MCG/MIN IV TITR PRN Rx#: [id number] Piperacillin Sodium/ 50 100 Tazobact 2.25 gm In Sodium Chloride 0.9% 50 ml @ 100 mls/hr IV Q6HR [facility] Rx#:[id number] Tube Feeding 600 Other 80 Other: # Bowel Movements 0 Stool Characteristics Soft Active Medications: Current Medications Acetaminophen (Tylenol 650mg/20.3ml Suspension) 650 mg GT DAILY [facility] Stop: 10/03/17 08:59 Last Admin: 08/12/17 09:01 Dose: 650 mg Albuterol/Ipratropium (Duoneb Neb) 3 ml HHN Q4HRT [facility] Stop: 10/02/17 10:59 Last Admin: 08/12/17 15:58 Dose: 3 ml Ascorbic Acid (Vitamin C) 500 mg PO DAILY [facility] Stop: 10/03/17 08:59 Last Admin: 08/12/17 09:02 Dose: 500 mg Aspirin (Aspirin Chewable) 81 mg GT DAILY [facility] Stop: 10/03/17 08:59 Last Admin: 08/12/17 09:02 Dose: 81 mg Atorvastatin Calcium (Lipitor) 40 mg GT HS [facility] Stop: 10/03/17 20:59 Last Admin: 08/11/17 20:38 Dose: 40 mg Bisacodyl (Dulcolax 10 Mg Supp) 10 mg RC Q72HR PRN PRN Reason: IF MOM INEFFECTIVE Stop: 10/02/17 14:13 Chlorhexidine Gluconate (Peridex) 15 ml MM 0800,2000 [facility] Stop: 10/02/17 07:59 Last Admin: 08/12/17 12:07 Dose: 15 ml Cholecalciferol (Vitamin D3) 1,000 iu GT DAILY [facility] Stop: 10/03/17 08:59 Last Admin: 08/12/17 09:02 Dose: 1,000 iu Diltiazem HCl (Cardizem) 5 mg IVP Q4H PRN PRN Reason: INCREASE HEART RATE Stop: 10/01/17 21:59 Last Admin: 08/12/17 10:57 Dose: 5 mg Docusate Sodium (Colace) 100 mg PO DAILY [facility] Stop: 10/03/17 08:59 Last Admin: 08/12/17 09:02 Dose: 100 mg Heparin Sodium (Porcine) (Heparin) 5,000 units SUBQ Q12HR [facility] Stop: 10/11/17 20:59 Dopamine HCl/Dextrose (Dopamine) 400 mg in 250 mls @ 0 mls/hr IV TITR PRN; Protocol; Per Protocol PRN Reason: BP MAINTENANCE (PER PROTOCOL) Stop: 10/02/17 07:47 Norepinephrine Bitartrate 8 mg (/ Dextrose) 258 mls @ 0 mls/hr IV TITR PRN; Protocol; 0 MCG/MIN PRN Reason: BP MAINTENANCE (PER PROTOCOL) Stop: 10/05/17 13:59 Last Admin: 08/12/17 12:55 Dose: 8 mcg/min, 15.48 mls/hr Piperacillin Sod/Tazobactam (Sod 2.25 gm/ Sodium Chloride) 50 mls @ 100 mls/hr IV Q6HR [facility] Stop: 10/05/17 17:59 Last Admin: 08/12/17 18:12 Dose: 100 mls/hr Diltiazem HCl 125 mg/ Dextrose 125 mls @ 5 mls/hr IV TITR [facility]; 5 MG/HR PRN Reason: Protocol Stop: 10/11/17 11:44 Last Admin: 08/12/17 12:00 Dose: 5 mg/hr, 5 mls/hr Insulin Aspart (Novolog Insulin Sliding Scale) 0 units SUBQ Q6HR [facility] PRN Reason: Protocol Stop: 10/02/17 00:00 Last Admin: 08/12/17 18:21 Dose: 6 units Lactobacillus Rhamnosus (Culturelle 15b) 1 each PO DAILY [facility] Stop: 10/07/17 08:59 Last Admin: 08/12/17 09:01 Dose: 1 each Lorazepam (Ativan) 1 mg IVP Q2H PRN; Protocol PRN Reason: Restlessness Stop: 10/09/17 09:44 Last Admin: 08/12/17 15:25 Dose: 1 mg Magnesium Hydroxide (Milk Of Magnesia) 30 ml GT Q72H PRN PRN Reason: NO BM FOR THREE DAYS Stop: 10/02/17 14:13 Mirtazapine (Remeron) 15 mg GT HS [facility] PRN Reason: Protocol Stop: 10/02/17 20:59 Last Admin: 08/11/17 20:38 Dose: 15 mg Miscellaneous (Clinical Monitoring) 1 ea PRN PRN PRN Reason: RENAL Stop: 10/05/17 11:28 Miscellaneous (Zosyn Iv Per Pharmacy) 1 ea PRN PRN PRN Reason: PROTOCOL Stop: 10/05/17 15:59 Miscellaneous (Probiotic Screen) 1 ea PRN PRN PRN Reason: PROTOCOL Stop: 10/06/17 14:14 Multivitamins/Vitamin C (Theragran) 1 tab PO DAILY [facility] Stop: 10/03/17 08:59 Last Admin: 08/12/17 09:01 Dose: 1 tab Ondansetron HCl (Zofran Odt) 4 mg PO Q6HR PRN PRN Reason: Nausea / Vomiting Stop: 10/02/17 14:13 Last Admin: 08/09/17 08:41 Dose: 4 mg Pantoprazole Sodium (Protonix) 40 mg IVP DAILY [facility] Stop: 10/02/17 08:59 Last Admin: 08/12/17 09:01 Dose: 40 mg Simethicone (Mylicon) 80 mg GT Q6H PRN PRN Reason: GAS PAIN Stop: 10/02/17 14:13 Sodium Phosphate (Fleet Enema) 118 ml RC PRN PRN PRN Reason: IF MOM/DULCOLAX INEFFECTIVE Stop: 10/02/17 14:13 Zinc Sulfate (Zinc Sulfate) 220 mg GT DAILY [facility] Stop: 10/03/17 08:59 Last Admin: 08/12/17 09:02 Dose: 220 mg General: Alert, No acute distress (scattered rhonchi) HEENT: Atraumatic, PERRLA, EOMI, Mucous membr. moist/pink Neck: Supple, Other (TRACH) Cardiovascular: Regular rate Lungs: Other (few rhonchi) Abdomen: Bowel sounds, Soft, Other (INTACT GT) Extremities: Edema (upper wxtrmities), Other (upper ext) Neurological: Sensation intact Skin: no Rash Psych/Mental Status: Mood NL - Procedures Procedures: Procedures Procedure Code Date BLOOD TRANSFUSION SERVICE 64339 08/02/17 EXCISION OF STOMACH, ENDO, DIAGN [id number] 07/10/17 INSPECTION OF LOWER INTESTINAL TRACT, ENDO [id number] 07/10/17 PERFORMANCE OF URINARY FILTRATION, <6 HRS/DAY [id number] 07/10/17 RESPIRATORY VENTILATION, GREATER THAN 96 CONSECUTIVE HOURS [id number] 08/02/17 TRANSFUSE NONAUT RED BLOOD CELLS IN PERIPH VEIN, PERC 85465O3 08/02/17 Assessment/Plan - Assessment Assessment: 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/L UE Edema, Cellulitis Shock Sepsis RF on Vent Acute on Chronic Decomp CHF G (-) Septicemia - Plan Plan: Lab - Result Diagrams 08/04/17 06:30 08/04/17 06:30 Current Medications Acetaminophen (Tylenol 650mg/20.3ml Suspension) 650 mg GT DAILY [facility] Stop: 10/03/17 08:59 Last Admin: 08/04/17 09:18 Dose: 650 mg Albuterol/Ipratropium (Duoneb Neb) 3 ml HHN Q4HRT [facility] Stop: 10/02/17 10:59 Last Admin: 08/04/17 11:25 Dose: 3 ml Ascorbic Acid (Vitamin C) 500 mg PO DAILY [facility] Stop: 10/03/17 08:59 Last Admin: 08/04/17 09:18 Dose: 500 mg Aspirin (Aspirin Chewable) 81 mg GT DAILY [facility] Stop: 10/03/17 08:59 Last Admin: 08/04/17 09:18 Dose: 81 mg Atorvastatin Calcium (Lipitor) 40 mg GT HS [facility] PRN Reason: Protocol Stop: 10/02/17 20:59 Last Admin: 08/03/17 20:19 Dose: 40 mg Bisacodyl (Dulcolax 10 Mg Supp) 10 mg RC Q72HR PRN PRN Reason: IF MOM INEFFECTIVE Stop: 10/02/17 14:13 Bisacodyl (Dulcolax 10 Mg Supp) 10 mg RC PRN PRN PRN Reason: IF MOM INEFFECTIVE Stop: 10/02/17 14:13 Chlorhexidine Gluconate (Peridex) 15 ml MM 0800,2000 [facility] Stop: 10/02/17 07:59 Last Admin: 08/04/17 08:00 Dose: 15 ml Cholecalciferol (Vitamin D3) 1,000 iu GT DAILY [facility] Stop: 10/03/17 08:59 Last Admin: 08/04/17 09:18 Dose: 1,000 iu Diltiazem HCl (Cardizem) 5 mg IVP Q4H PRN PRN Reason: INCREASE HEART RATE Stop: 04/25/18 21:59 Last Admin: 08/03/17 01:38 Dose: 5 mg Docusate Sodium (Colace) 100 mg PO DAILY [facility] Stop: 10/03/17 08:59 Last Admin: 08/04/17 09:18 Dose: 100 mg Heparin Sodium (Porcine) (Heparin) 5,000 units HD UD [facility] Stop: 08/05/17 08:59 Last Admin: 08/04/17 09:19 Dose: Not Given Fluconazole (Diflucan) 200 mg in 100 mls @ 100 mls/hr IV Q24HR [facility] Stop: 10/02/17 14:59 Last Infusion: 08/03/17 15:40 Dose: Infused Meropenem 500 mg/ Sodium (Chloride) 100 mls @ 100 mls/hr IV Q24H [facility] Stop: 10/02/17 12:59 Last Admin: 08/04/17 13:17 Dose: 100 mls/hr Dopamine HCl/Dextrose (Dopamine) 400 mg in 250 mls @ 0 mls/hr IV TITR PRN; Protocol; Per Protocol PRN Reason: BP MAINTENANCE (PER PROTOCOL) Stop: 10/02/17 07:47 Norepinephrine Bitartrate 4 mg (/ Dextrose) 254 mls @ 0 mls/hr IV TITR PRN; Protocol; Per Protocol PRN Reason: BP MAINTENANCE (PER PROTOCOL) Stop: 10/02/17 08:31 Last Admin: 08/03/17 23:47 Dose: 4 mcg/min, 15.24 mls/hr Colistimethate Sodium 80 mg/ (Sodium Chloride) 100 mls @ 100 mls/hr IV Q36H [facility] Stop: 10/02/17 20:59 Last Infusion: 08/03/17 21:20 Dose: Infused Insulin Aspart (Novolog Insulin Sliding Scale) 0 units SUBQ Q6HR [facility] PRN Reason: Protocol Stop: 10/02/17 00:00 Last Admin: 08/04/17 11:30 Dose: 6 units Lorazepam (Ativan) 1 mg IVP Q2HR PRN; Protocol PRN Reason: Restlessness Stop: 10/01/17 21:18 Last Admin: 08/04/17 01:05 Dose: 1 mg Magnesium Hydroxide (Milk Of Magnesia) 30 ml GT Q72H PRN PRN Reason: NO BM FOR THREE DAYS Stop: 10/02/17 14:13 Mirtazapine (Remeron) 15 mg GT HS [facility] PRN Reason: Protocol Stop: 10/02/17 20:59 Last Admin: 08/03/17 20:19 Dose: 15 mg Miscellaneous (Vancomycin Iv Per Pharmacy) 1 ea MC PRN PRN PRN Reason: PROTOCOL Stop: 10/01/17 20:42 Miscellaneous (Zosyn Iv Per Pharmacy) 1 ea PRN PRN PRN Reason: PROTOCOL Stop: 10/01/17 20:42 Multivitamins/Vitamin C (Theragran) 1 tab PO DAILY [facility] Stop: 10/03/17 08:59 Last Admin: 08/04/17 09:18 Dose: 1 tab Ondansetron HCl (Zofran Odt) 4 mg PO Q6HR PRN PRN Reason: Nausea / Vomiting Stop: 10/02/17 14:13 Pantoprazole Sodium (Protonix) 40 mg IVP DAILY [facility] Stop: 10/02/17 08:59 Last Admin: 08/04/17 09:18 Dose: 40 mg Simethicone (Mylicon) 80 mg GT Q6H PRN PRN Reason: GAS PAIN Stop: 10/02/17 14:13 Sodium Phosphate (Fleet Enema) 118 ml RC PRN PRN PRN Reason: IF MOM/DULCOLAX INEFFECTIVE Stop: 10/02/17 14:13 Temazepam (Restoril) 15 mg GT HS PRN; Protocol PRN Reason: Insomnia Stop: 10/02/17 14:13 Last Admin: 08/03/17 20:19 Dose: 15 mg Zinc Sulfate (Zinc Sulfate) 220 mg GT DAILY [facility] Stop: 10/03/17 08:59 Last Admin: 08/04/17 09:18 Dose: 220 Lab - Result Diagrams 08/12/17 05:15 08/12/17 05:15 Schedule for HD today Venous & Arterial duplex scans were negative for DVT or clots CXR still showed persistent b/l effusions replace K f/u electrolytes. cbc Nutritional Asmnt/Malnutr-PDOC - Dietary Evaluation Malnutrition Findings (Please click <Entered> for more info): Nutritional Asmnt/Malnutrition Start: 08/05/17 15: 53 Text: Status: Complete Freq: Document 08/05/17 15:53 LCHENG (Rec: 08/05/17 16:19 LCHENG [id number]) Nutritional Asmnt/Malnutrition Patient General Information Nutritional Screening High Risk Diagnosis sepsis, respiratory failure, ESRD Pertinent Medical Hx/Surgical Hx ESRD on HD, respiratory failure with tracheostomy, dysphagia, a fib, anemia, HTN, GERD Subjective Information Pt on vent, not able to interview. Pt was on TF Novosource Renal 30ml/hr continuous, NPO today for surgery. Pt has dialysis ordred per nurse note. Current Diet Order/ Nutrition Support NPO on 08/05 Pertinent Medications vit C, vit D3, colace, novolog , remeron, theragran, protonix , zinc Pertinent Labs 08/05 Na 134, K 3.6, Cl 102, BUN 77, Cr 4.2, Glucose 216, POC 224-233 08/02 A1c 7.7 Nutritional Hx/Data Height 1.6 m Height (Calculated Centimeters) 160.0 Current Weight (lbs) 87.543 kg Weight (Calculated Kilograms) 87.5 Weight (Calculated Grams) 71856.3 [place] Body Weight 115 Body Mass Index (BMI) 34.2 Weight Status Obese GI Symptoms GI Symptoms None Last BM 08/04 Difficult in: None Skin Integrity/Comment: reddened to left/right inner thigh, right lateral index finger, right/left arm; skin tear to left abdominal fold; pressure area to coccy/sacral Estimated Nutritional Goals BEE in Kcals: Adj wt of IBW Calories/Kcals/Kg 30-35 adj wt 61kg Kcals Calculated 6330-6607 Protein: Adj wt of IBW Protein g/k.2-1.4 Protein Calculated 73-85 Fluid: ml 1830-2135ml (1ml/kcal) Nutritional Problem 1. Problem Problem altered nutrition related lab values Etiology hx of ESRD, endocrine dysfunction Signs/Symptoms: BUN 77, Cr 4.2, Glucose 216, POC 224-233, A1c 7.7 Malnutrition Alert Protein-Calorie Malnutrition N/A Is there a minimum of two criteria No selected? Query Text:Check all the applicable criteria. A minimum of two criteria are recommended for diagnosis of either severe or non-severe malnutrition. Intervention/Recommendation Comments 1. Resume TF Novosource Renal 30ml/hr continuous as ordered. increase to goal rate of 40ml /hr continuous as tolerated. This will provide 1920kcal, 87g protein and 688ml free water, meeting 100% of nutritional needs 2. Monitor TF rate, tolerance, wt weekly, skin integrity and labs 3. F/U as high risk in 2-3 days, 08/07-08/08 Expected Outcomes/Goals Expected Outcomes/Goals 1. Pt to meet at least 75% of nutritional needs via nutrition support with tolerance 2. Wt stability, skin to remain intact, labs to approach WNL.
--- NOTE | 2017-08-12 21:00 | Internal Medicine Prog Note ---
Internal Medicine Subjective - Subjective Service Date: 08/12/17 (remains on levophed) Patient is:: awake, non-verbal Per staff patient has:: tolerating meds Internal Medicine Objective - Results Result Diagrams: 08/12/17 05:15 08/12/17 05:15 Recent Labs: Laboratory Last Values WBC 14.7 Th/cmm (4.8-10.8) H 08/12/17 05:15 RBC 2.53 Mil/cmm (3.80-5.20) L 08/12/17 05:15 Hgb 7.9 gm/dL (12-16) L* 08/12/17 05:15 Hct 23.7 % (41.0-60) L 08/12/17 05:15 MCV 93.9 fl (81-100) 08/12/17 05:15 MCH 31.2 pg (27.0-31.0) H 08/12/17 05:15 MCHC Differential 33.2 pg (28.0-36.0) 08/12/17 05:15 RDW 17.1 % (11.5-20.0) 08/12/17 05:15 Plt Count 300 Th/cmm (150-400) 08/12/17 05:15 MPV 11.7 fl 08/12/17 05:15 Neutrophils % 85.1 % (40.0-80.0) H 08/12/17 05:15 Band Neutrophils % 4 % (0-10) 08/11/17 04:45 Lymphocytes % 4.7 % (20.0-50.0) L 08/12/17 05:15 Monocytes % 8.3 % (2.0-10.0) 08/12/17 05:15 Eosinophils % 1.9 % (0.0-5.0) 08/12/17 05:15 Basophils % 0.0 % (0.0-2.0) 08/12/17 05:15 Neutrophils (Manual) 81 % (40-80) H 08/11/17 04:45 Lymphocytes 8 % (20-50) L 08/11/17 04:45 Monocytes 3 % (2-10) 08/11/17 04:45 Eosinophils 4 % (0-5) 08/11/17 04:45 Basophils 1 % (0-3) 08/07/17 05:45 Hypochromia 1+ 08/02/17 15:37 Platelet Estimate ADEQUATE (NORMAL) 08/11/17 04:45 Platelet Morphology NORMAL (NORMAL) 08/02/17 15:37 Anisocytosis 1+ 08/07/17 05:45 Crenated Cell 2+ 08/02/17 15:37 RBC Morph Micro Appear ABNORMAL (NORMAL) 08/02/17 15:37 PT 12.9 SECONDS (9.5-11.5) H 08/02/17 13:58 INR 1.23 (0.5-1.4) 08/02/17 13:58 PTT (Actin FS) 33.6 SECONDS (26.0-38.0) 08/02/17 13:58 Specimen Source Arterial 08/03/17 08:58 Sample Site Right Radial 08/03/17 08:58 pH 7.42 (7.35-7.45) 08/03/17 08:58 pCO2 37.0 mmHg (35.0-45.0) 08/03/17 08:58 pO2 204.0 mmHg (80.0-100.0) H 08/03/17 08:58 HCO3 24.8 mEq/L (20.0-26.0) 08/03/17 08:58 Base Excess -0.2 mEq/L (-3.0-3.0) 08/03/17 08:58 O2 Saturation 100.0 % (92.0-100.0) 08/03/17 08:58 Rhett Test Positive 08/03/17 08:58 Vent Rate 12 08/03/17 08:58 Inspired O2 60 08/03/17 08:58 Tidal Volume 450 08/03/17 08:58 PEEP 5 08/03/17 08:58 Pressure (ins/psv/peep) NA 08/03/17 08:58 Critical Value LZHANG 08/03/17 08:58 Sodium 130 mEq/L (136-145) L 08/12/17 05:15 Potassium 3.9 mEq/L (3.5-5.1) 08/12/17 05:15 Chloride 94 mEq/L (98-107) L 08/12/17 05:15 Carbon Dioxide 25.5 mEq/L (21.0-31.0) 08/12/17 05:15 Anion Gap 14.4 (7.0-16.0) 08/12/17 05:15 BUN 62 mg/dL (7-25) H 08/12/17 05:15 Creatinine 3.4 mg/dL (0.6-1.2) H 08/12/17 05:15 Est GFR ( Amer) TNP 08/12/17 05:15 Est GFR (Non-Af Amer) TNP 08/12/17 05:15 BUN/Creatinine Ratio 18.2 08/12/17 05:15 Glucose 349 mg/dL (70-105) H 08/12/17 05:15 POC Glucose 263 MG/DL (70 - 105) H 08/12/17 18:18 Hemoglobin A1c % 7.7 % (4.0-6.0) H 08/02/17 15:37 Whole Bld Lactic Acid 1.97 mmol/L (0.60-1.99) 08/02/17 13:49 Calcium 8.8 mg/dL (8.6-10.3) 08/12/17 05:15 Magnesium 1.7 mg/dL (1.9-2.7) L 08/10/17 04:30 Iron 10 ug/dL (27-139) L 08/02/17 13:56 TIBC 135 ug/dL (250-450) L 08/02/17 13:56 Iron Saturation 7 % (15-55) L 08/02/17 13:56 Unsaturated IBC 125 ug/dL (118-369) 08/02/17 13:56 Ferritin 588 ng/mL (15-150) H 08/02/17 13:56 Total Bilirubin 0.6 mg/dL (0.3-1.0) 08/09/17 06:34 Direct Bilirubin 0.09 mg/dL (0.0-0.2) 08/02/17 13:57 AST 21 U/L (13-39) 08/09/17 06:34 ALT 12 U/L (7-52) 08/09/17 06:34 Alkaline Phosphatase 91 U/L (34-104) 08/09/17 06:34 Troponin I 1.16 ng/mL (0.01-0.05) H* D 08/04/17 06:30 B-Natriuretic Peptide 372.0 pg/mL (5.0-100.0) H 08/05/17 06:15 Total Protein 6.4 gm/dL (6.0-8.3) 08/09/17 06:34 Albumin 2.9 gm/dL (3.7-5.3) L 08/09/17 06:34 Globulin 3.5 gm/dL 08/09/17 06:34 Albumin/Globulin Ratio 0.8 (1.0-1.8) L 08/09/17 06:34 Triglycerides 132 mg/dL (<150) 08/04/17 06:30 Cholesterol 55 mg/dL (<200) 08/04/17 06:30 LDL Cholesterol Direct 16 mg/dL (75-193) L 08/04/17 06:30 HDL Cholesterol 13 mg/dL (23-92) L 08/04/17 06:30 Amylase 12 U/L (29-103) L 08/02/17 13:43 Lipase 4 U/L (11-82) L 08/02/17 13:43 TSH 3.74 uIU/ml (0.34-5.60) 08/04/17 06:30 Stool Occult Blood POSITIVE (NEGATIVE) H 08/03/17 17:50 Random Vancomycin 14.8 ug/mL (5.0-40.0) 08/09/17 06:34 Hepatitis A IgM Ab Negative (Negative) 08/08/17 08:15 Hep Bs Antigen Negative (Negative) 08/08/17 08:15 Hep B Core IgM Ab Negative (Negative) 08/08/17 08:15 Hepatitis C Antibody <0.1 s/co ratio (0.0-0.9) 08/08/17 08:15 Blood Type A POSITIVE 08/02/17 20:54 Antibody Screen POSITIVE 08/02/17 20:54 Antibody Identification Anti-K 08/02/17 20:54 Crossmatch See Detail 08/02/17 20:54 - Physical Exam Vitals and I&O: Vital Signs Temp 1 F 08/12/17 14:00 Pulse 106 08/12/17 20:24 Resp 12 08/12/17 18:00 BP 103/65 08/12/17 20:24 Pulse Ox 100 08/12/17 19:47 Intake & Output 08/12/17 08/12/17 08/13/17 06:59 18:59 06:59 Intake Total 1051.532 253.51 196.49 Balance 1051.532 253.51 196.49 Weight (lbs) 209 lb Intake: Intake, IV Amount 371.532 253.51 196.49 Diltiazem 125 mg In 42 Dextrose 5% 100 ml @ 5 MG /HR 5 mls/hr IV TITR [facility] Rx#:[id number] Norepinephrine 8 mg In 321.532 153.51 104.49 Dextrose 5% 250 ml @ 0 MCG/MIN IV TITR PRN Rx#: [id number] Piperacillin Sodium/ 50 100 50 Tazobact 2.25 gm In Sodium Chloride 0.9% 50 ml @ 100 mls/hr IV Q6HR [facility] Rx#:[id number] Tube Feeding 600 Other 80 Other: # Bowel Movements 0 Stool Characteristics Soft Active Medications: Current Medications Acetaminophen (Tylenol 650mg/20.3ml Suspension) 650 mg GT DAILY [facility] Stop: 10/03/17 08:59 Last Admin: 08/12/17 09:01 Dose: 650 mg Albuterol/Ipratropium (Duoneb Neb) 3 ml HHN Q4HRT [facility] Stop: 10/02/17 10:59 Last Admin: 08/12/17 19:47 Dose: 3 ml Ascorbic Acid (Vitamin C) 500 mg PO DAILY [facility] Stop: 10/03/17 08:59 Last Admin: 08/12/17 09:02 Dose: 500 mg Aspirin (Aspirin Chewable) 81 mg GT DAILY [facility] Stop: 10/03/17 08:59 Last Admin: 08/12/17 09:02 Dose: 81 mg Atorvastatin Calcium (Lipitor) 40 mg GT HS [facility] Stop: 10/03/17 20:59 Last Admin: 08/12/17 20:36 Dose: 40 mg Bisacodyl (Dulcolax 10 Mg Supp) 10 mg RC Q72HR PRN PRN Reason: IF MOM INEFFECTIVE Stop: 10/02/17 14:13 Chlorhexidine Gluconate (Peridex) 15 ml MM 0800,1999 [facility] Stop: 10/02/17 07:59 Last Admin: 08/12/17 19:59 Dose: 15 ml Cholecalciferol (Vitamin D3) 1,000 iu GT DAILY [facility] Stop: 10/03/17 08:59 Last Admin: 08/12/17 09:02 Dose: 1,000 iu Diltiazem HCl (Cardizem) 5 mg IVP Q4H PRN PRN Reason: INCREASE HEART RATE Stop: 10/01/17 21:59 Last Admin: 08/12/17 10:57 Dose: 5 mg Docusate Sodium (Colace) 100 mg PO DAILY [facility] Stop: 10/03/17 08:59 Last Admin: 08/12/17 09:02 Dose: 100 mg Heparin Sodium (Porcine) (Heparin) 5,000 units SUBQ Q12HR [facility] Stop: 10/11/17 20:59 Last Admin: 08/12/17 20:37 Dose: 5,000 units Dopamine HCl/Dextrose (Dopamine) 400 mg in 250 mls @ 0 mls/hr IV TITR PRN; Protocol; Per Protocol PRN Reason: BP MAINTENANCE (PER PROTOCOL) Stop: 10/02/17 07:47 Norepinephrine Bitartrate 8 mg (/ Dextrose) 258 mls @ 0 mls/hr IV TITR PRN; Protocol; 0 MCG/MIN PRN Reason: BP MAINTENANCE (PER PROTOCOL) Stop: 10/05/17 13:59 Last Titration: 08/12/17 19:40 Dose: 20 mcg/min, 38.7 mls/hr Piperacillin Sod/Tazobactam (Sod 2.25 gm/ Sodium Chloride) 50 mls @ 100 mls/hr IV Q6HR [facility] Stop: 10/05/17 17:59 Last Infusion: 08/12/17 19:00 Dose: Infused Diltiazem HCl 125 mg/ Dextrose 125 mls @ 5 mls/hr IV TITR [facility]; 5 MG/HR PRN Reason: Protocol Stop: 10/11/17 11:44 Last Admin: 08/12/17 20:24 Dose: 5 mg/hr, 5 mls/hr Insulin Aspart (Novolog Insulin Sliding Scale) 0 units SUBQ Q6HR [facility] PRN Reason: Protocol Stop: 10/02/17 00:00 Last Admin: 08/12/17 18:21 Dose: 6 units Lactobacillus Rhamnosus (Culturelle 15b) 1 each PO DAILY [facility] Stop: 10/07/17 08:59 Last Admin: 08/12/17 09:01 Dose: 1 each Lorazepam (Ativan) 1 mg IVP Q2H PRN; Protocol PRN Reason: Restlessness Stop: 10/09/17 09:44 Last Admin: 08/12/17 19:48 Dose: 1 mg Magnesium Hydroxide (Milk Of Magnesia) 30 ml GT Q72H PRN PRN Reason: NO BM FOR THREE DAYS Stop: 10/02/17 14:13 Mirtazapine (Remeron) 15 mg GT HS [facility] PRN Reason: Protocol Stop: 10/02/17 20:59 Last Admin: 08/12/17 20:36 Dose: 15 mg Miscellaneous (Clinical Monitoring) 1 ea PRN PRN PRN Reason: RENAL Stop: 10/05/17 11:28 Miscellaneous (Zosyn Iv Per Pharmacy) 1 ea PRN PRN PRN Reason: PROTOCOL Stop: 10/05/17 15:59 Miscellaneous (Probiotic Screen) 1 [facility] PRN PRN PRN Reason: PROTOCOL Stop: 10/06/17 14:14 Multivitamins/Vitamin C (Theragran) 1 tab PO DAILY [facility] Stop: 10/03/17 08:59 Last Admin: 08/12/17 09:01 Dose: 1 tab Ondansetron HCl (Zofran Odt) 4 mg PO Q6HR PRN PRN Reason: Nausea / Vomiting Stop: 10/02/17 14:13 Last Admin: 08/09/17 08:41 Dose: 4 mg Pantoprazole Sodium (Protonix) 40 mg IVP DAILY [facility] Stop: 10/02/17 08:59 Last Admin: 08/12/17 09:01 Dose: 40 mg Simethicone (Mylicon) 80 mg GT Q6H PRN PRN Reason: GAS PAIN Stop: 10/02/17 14:13 Sodium Phosphate (Fleet Enema) 118 ml RC PRN PRN PRN Reason: IF MOM/DULCOLAX INEFFECTIVE Stop: 10/02/17 14:13 Zinc Sulfate (Zinc Sulfate) 220 mg GT DAILY [facility] Stop: 10/03/17 08:59 Last Admin: 08/12/17 09:02 Dose: 220 mg General: weak, obtunded HEENT: NC/AT, PERRLA Neck: Supple Lungs: ronchi Abdomen: soft, non-tender, non-distended, +GT Neurological: unable to follow command - Procedures Procedures: Procedures Procedure Code Date BLOOD TRANSFUSION SERVICE 69506 08/02/17 EXCISION OF STOMACH, ENDO, DIAGN [id number] 07/10/17 INSPECTION OF LOWER INTESTINAL TRACT, ENDO [id number] 07/10/17 PERFORMANCE OF URINARY FILTRATION, <6 HRS/DAY [id number] 07/10/17 RESPIRATORY VENTILATION, GREATER THAN 96 CONSECUTIVE HOURS [id number] 08/02/17 TRANSFUSE NONAUT RED BLOOD CELLS IN PERIPH VEIN, PERC [id number] 08/02/17 Internal Medicine Assmt/Plan - Assessment Assessment: Assessment: 1. Septic shock. 2. Gram-negative negative bacteremia. 3. Pneumonia. 4. CK D stage V pneumatosis. 5. Diabetes mellitus type 2. 6. Obesity. 7. hypotension - Plan Plan: titrate levophed as per protocol cbc.bmp in am continue ivabx as per ID continue current orders Nutritional Asmnt/Malnutr-PDOC - Dietary Evaluation Malnutrition Findings (Please click <Entered> for more info): Nutritional Asmnt/Malnutrition Start: 08/05/17 15: 53 Text: Status: Complete Freq: Document 08/05/17 15:53 NAVIN (Rec: 08/05/17 16:19 NAVIN [email or web address]) Nutritional Asmnt/Malnutrition Patient General Information Nutritional Screening High Risk Diagnosis sepsis, respiratory failure, ESRD Pertinent Medical Hx/Surgical Hx ESRD on HD, respiratory failure with tracheostomy, dysphagia, a fib, anemia, HTN, GERD Subjective Information Pt on vent, not able to interview. Pt was on TF Novosource Renal 30ml/hr continuous, NPO today for surgery. Pt has dialysis ordred per nurse note. Current Diet Order/ Nutrition Support NPO on 08/05 Pertinent Medications vit C, vit D3, colace, novolog , remeron, theragran, protonix , zinc Pertinent Labs 08/05 Na 134, K 3.6, Cl 102, BUN 77, Cr 4.2, Glucose 216, POC 224-233 08/02 A1c 7.7 Nutritional Hx/Data Height 5 ft 3 in Height (Calculated Centimeters) 160.0 Current Weight (lbs) 193 lb Weight (Calculated Kilograms) 87.5 Weight (Calculated Grams) 94941.3 [place] Body Weight 115 Body Mass Index (BMI) 34.2 Weight Status Obese GI Symptoms GI Symptoms None Last BM 08/04 Difficult in: None Skin Integrity/Comment: reddened to left/right inner thigh, right lateral index finger, right/left arm; skin tear to left abdominal fold; pressure area to coccy/sacral Estimated Nutritional Goals BEE in Kcals: Adj wt of IBW Calories/Kcals/Kg 30-35 adj wt 61kg Kcals Calculated 5268-1621 Protein: Adj wt of IBW Protein g/k.2-1.4 Protein Calculated 73-85 Fluid: ml 1830-2135ml (1ml/kcal) Nutritional Problem 1. Problem Problem altered nutrition related lab values Etiology hx of ESRD, endocrine dysfunction Signs/Symptoms: BUN 77, Cr 4.2, Glucose 216, POC 224-233, A1c 7.7 Malnutrition Alert Protein-Calorie Malnutrition N/A Is there a minimum of two criteria No selected? Query Text:Check all the applicable criteria. A minimum of two criteria are recommended for diagnosis of either severe or non-severe malnutrition. Intervention/Recommendation Comments 1. Resume TF Novosource Renal 30ml/hr continuous as ordered. increase to goal rate of 40ml /hr continuous as tolerated. This will provide 1920kcal, 87g protein and 688ml free water, meeting 100% of nutritional needs 2. Monitor TF rate, tolerance, wt weekly, skin integrity and labs 3. F/U as high risk in 2-3 days, 08/07-3 Expected Outcomes/Goals Expected Outcomes/Goals 1. Pt to meet at least 75% of nutritional needs via nutrition support with tolerance 2. Wt stability, skin to remain intact, labs to approach WNL.
[2017-08-13] MEDS: Piperacillin/Tazobact 2.25 gm in 0.9% NS 50 ML IV SCH ×5 (00:07→23:56)
[2017-08-13] MEDS: INSULIN ASPART SLIDING SCALE 100 UNITS/ML UNIT SUBQ SCH ×5 (00:08→23:53)
[2017-08-13] MEDS: Albuterol/Ipratropium Neb 3 ML AERS HHN SCH ×6 (03:33→22:01)
[2017-08-13 07:03] LABS: % EOSINOPHILS 1.8 % (0.0-5.0); % LYMPHOCYTES 4.7 % (20.0-50.0); % NEUTROPHILS 84.5 % (40.0-80.0); EOSINOPHILE ABSOLUTE 0.3 Th/cmm (0.1-0.4); HEMATOCRIT 23.3 % (41.0-60); HEMOGLOBIN 8.4 gm/dL (12-16); LYMPHOCYTE ABSOLUTE 0.8 Th/cmm (1.5-3.0); MEAN CELL VOLUME 96.3 fl (81-100); MEAN CORPUSCULAR HEMOGLOBIN 34.7 pg (27.0-31.0); MEAN PLATELET VOLUME 11.6 fl; MONOCYTE ABSOLUTE 1.6 Th/cmm (0.3-1.0); NEUTROPHILE ABSOLUTE 14.7 Th/cmm (1.8-8.0); PLATELET COUNT 328 Th/cmm (150-400); RED BLOOD COUNT 2.42 Mil/cmm (3.80-5.20); RED CELL DISTRIBUTION WIDTH 16.9 % (11.5-20.0)
[2017-08-13 07:05] LABS: WHITE BLOOD COUNT 17.4 Th/cmm (4.8-10.8)
--- NOTE | 2017-08-13 08:04 | GI Progress Note ---
Subjective - Review of Systems Subjective: NO GI BLEEDING Objective - Results Result Diagrams: 08/13/17 06:20 08/12/17 05:15 Recent Labs: Laboratory Last Values WBC 17.4 Th/cmm (4.8-10.8) H 08/13/17 06:20 RBC 2.42 Mil/cmm (3.80-5.20) L 08/13/17 06:20 Hgb 8.4 gm/dL (12-16) L 08/13/17 06:20 Hct 23.3 % (41.0-60) L 08/13/17 06:20 MCV 96.3 fl (81-100) 08/13/17 06:20 MCH 34.7 pg (27.0-31.0) H 08/13/17 06:20 MCHC Differential 36.0 pg (28.0-36.0) 08/13/17 06:20 RDW 16.9 % (11.5-20.0) 08/13/17 06:20 Plt Count 328 Th/cmm (150-400) 08/13/17 06:20 MPV 11.6 fl 08/13/17 06:20 Neutrophils % 84.5 % (40.0-80.0) H 08/13/17 06:20 Band Neutrophils % 4 % (0-10) 08/11/17 04:45 Lymphocytes % 4.7 % (20.0-50.0) L 08/13/17 06:20 Monocytes % 9.0 % (2.0-10.0) 08/13/17 06:20 Eosinophils % 1.8 % (0.0-5.0) 08/13/17 06:20 Basophils % 0.0 % (0.0-2.0) 08/13/17 06:20 Neutrophils (Manual) 81 % (40-80) H 08/11/17 04:45 Lymphocytes 8 % (20-50) L 08/11/17 04:45 Monocytes 3 % (2-10) 08/11/17 04:45 Eosinophils 4 % (0-5) 08/11/17 04:45 Basophils 1 % (0-3) 08/07/17 05:45 Hypochromia 1+ 08/02/17 15:37 Platelet Estimate ADEQUATE (NORMAL) 08/11/17 04:45 Platelet Morphology NORMAL (NORMAL) 08/02/17 15:37 Anisocytosis 1+ 08/07/17 05:45 Crenated Cell 2+ 08/02/17 15:37 RBC Morph Micro Appear ABNORMAL (NORMAL) 08/02/17 15:37 PT 12.9 SECONDS (9.5-11.5) H 08/02/17 13:58 INR 1.23 (0.5-1.4) 08/02/17 13:58 PTT (Actin FS) 33.6 SECONDS (26.0-38.0) 08/02/17 13:58 Specimen Source Arterial 08/03/17 08:58 Sample Site Right Radial 08/03/17 08:58 pH 7.42 (7.35-7.45) 08/03/17 08:58 pCO2 37.0 mmHg (35.0-45.0) 08/03/17 08:58 pO2 204.0 mmHg (80.0-100.0) H 08/03/17 08:58 HCO3 24.8 mEq/L (20.0-26.0) 08/03/17 08:58 Base Excess -0.2 mEq/L (-3.0-3.0) 08/03/17 08:58 O2 Saturation 100.0 % (92.0-100.0) 08/03/17 08:58 Rhett Test Positive 08/03/17 08:58 Vent Rate 12 08/03/17 08:58 Inspired O2 60 08/03/17 08:58 Tidal Volume 450 08/03/17 08:58 PEEP 5 08/03/17 08:58 Pressure (ins/psv/peep) NA 08/03/17 08:58 Critical Value LZHANG 08/03/17 08:58 Sodium 130 mEq/L (136-145) L 08/12/17 05:15 Potassium 3.9 mEq/L (3.5-5.1) 08/12/17 05:15 Chloride 94 mEq/L (98-107) L 08/12/17 05:15 Carbon Dioxide 25.5 mEq/L (21.0-31.0) 08/12/17 05:15 Anion Gap 14.4 (7.0-16.0) 08/12/17 05:15 BUN 62 mg/dL (7-25) H 08/12/17 05:15 Creatinine 3.4 mg/dL (0.6-1.2) H 08/12/17 05:15 Est GFR ( Amer) TNP 08/12/17 05:15 Est GFR (Non-Af Amer) TNP 08/12/17 05:15 BUN/Creatinine Ratio 18.2 08/12/17 05:15 Glucose 349 mg/dL (70-105) H 08/12/17 05:15 POC Glucose 257 MG/DL (70 - 105) H 08/13/17 05:46 Hemoglobin A1c % 7.7 % (4.0-6.0) H 08/02/17 15:37 Whole Bld Lactic Acid 1.97 mmol/L (0.60-1.99) 08/02/17 13:49 Calcium 8.8 mg/dL (8.6-10.3) 08/12/17 05:15 Magnesium 1.7 mg/dL (1.9-2.7) L 08/10/17 04:30 Iron 10 ug/dL (27-139) L 08/02/17 13:56 TIBC 135 ug/dL (250-450) L 08/02/17 13:56 Iron Saturation 7 % (15-55) L 08/02/17 13:56 Unsaturated IBC 125 ug/dL (118-369) 08/02/17 13:56 Ferritin 588 ng/mL (15-150) H 08/02/17 13:56 Total Bilirubin 0.6 mg/dL (0.3-1.0) 08/09/17 06:34 Direct Bilirubin 0.09 mg/dL (0.0-0.2) 08/02/17 13:57 AST 21 U/L (13-39) 08/09/17 06:34 ALT 12 U/L (7-52) 08/09/17 06:34 Alkaline Phosphatase 91 U/L (34-104) 08/09/17 06:34 Troponin I 1.16 ng/mL (0.01-0.05) H* D 08/04/17 06:30 B-Natriuretic Peptide 372.0 pg/mL (5.0-100.0) H 08/05/17 06:15 Total Protein 6.4 gm/dL (6.0-8.3) 08/09/17 06:34 Albumin 2.9 gm/dL (3.7-5.3) L 08/09/17 06:34 Globulin 3.5 gm/dL 08/09/17 06:34 Albumin/Globulin Ratio 0.8 (1.0-1.8) L 08/09/17 06:34 Triglycerides 132 mg/dL (<150) 08/04/17 06:30 Cholesterol 55 mg/dL (<200) 08/04/17 06:30 LDL Cholesterol Direct 16 mg/dL (75-193) L 08/04/17 06:30 HDL Cholesterol 13 mg/dL (23-92) L 08/04/17 06:30 Amylase 12 U/L (29-103) L 08/02/17 13:43 Lipase 4 U/L (11-82) L 08/02/17 13:43 TSH 3.74 uIU/ml (0.34-5.60) 08/04/17 06:30 Stool Occult Blood POSITIVE (NEGATIVE) H 08/03/17 17:50 Random Vancomycin 14.8 ug/mL (5.0-40.0) 08/09/17 06:34 Hepatitis A IgM Ab Negative (Negative) 08/08/17 08:15 Hep Bs Antigen Negative (Negative) 08/08/17 08:15 Hep B Core IgM Ab Negative (Negative) 08/08/17 08:15 Hepatitis C Antibody <0.1 s/co ratio (0.0-0.9) 08/08/17 08:15 Blood Type A POSITIVE 08/02/17 20:54 Antibody Screen POSITIVE 08/02/17 20:54 Antibody Identification Anti-K 08/02/17 20:54 Crossmatch See Detail 08/02/17 20:54 - Physical Exam Vitals and I&O: Vital Signs Temp 98.3 F 08/13/17 06:00 Pulse 85 08/13/17 07:35 Resp 16 08/13/17 06:00 BP 114/19 08/13/17 06:45 Pulse Ox 100 08/13/17 07:35 Intake & Output 08/12/17 08/13/17 08/13/17 18:59 06:59 18:59 Intake Total 253.51 1353.144 Output Total 0 Balance 253.51 1353.144 Weight (lbs) 93.894 kg Intake: Intake, IV Amount 253.51 603.144 Diltiazem 125 mg In 42 Dextrose 5% 100 ml @ 5 MG /HR 5 mls/hr IV TITR [facility] Rx#:[id number] Norepinephrine 8 mg In 153.51 461.144 Dextrose 5% 250 ml @ 0 MCG/MIN IV TITR PRN Rx#: [id number] Piperacillin Sodium/ 100 100 Tazobact 2.25 gm In Sodium Chloride 0.9% 50 ml @ 100 mls/hr IV Q6HR [facility] Rx#:[id number] Tube Feeding 600 Other 150 Output: Urine 0 Other: # Bowel Movements 0 Stool Characteristics Soft Active Medications: Current Medications Acetaminophen (Tylenol 650mg/20.3ml Suspension) 650 mg GT DAILY [facility] Stop: 10/03/17 08:59 Last Admin: 08/12/17 09:01 Dose: 650 mg Albuterol/Ipratropium (Duoneb Neb) 3 ml HHN Q4HRT [facility] Stop: 10/02/17 10:59 Last Admin: 08/13/17 07:34 Dose: 3 ml Ascorbic Acid (Vitamin C) 500 mg PO DAILY [facility] Stop: 10/03/17 08:59 Last Admin: 08/12/17 09:02 Dose: 500 mg Aspirin (Aspirin Chewable) 81 mg GT DAILY [facility] Stop: 10/03/17 08:59 Last Admin: 08/12/17 09:02 Dose: 81 mg Atorvastatin Calcium (Lipitor) 40 mg GT HS [facility] Stop: 10/03/17 20:59 Last Admin: 08/12/17 20:36 Dose: 40 mg Bisacodyl (Dulcolax 10 Mg Supp) 10 mg RC Q72HR PRN PRN Reason: IF MOM INEFFECTIVE Stop: 10/02/17 14:13 Chlorhexidine Gluconate (Peridex) 15 ml MM 0800,2000 [facility] Stop: 10/02/17 07:59 Last Admin: 08/12/17 19:59 Dose: 15 ml Cholecalciferol (Vitamin D3) 1,000 iu GT DAILY [facility] Stop: 10/03/17 08:59 Last Admin: 08/12/17 09:02 Dose: 1,000 iu Diltiazem HCl (Cardizem) 5 mg IVP Q4H PRN PRN Reason: INCREASE HEART RATE Stop: 10/01/17 21:59 Last Admin: 08/12/17 10:57 Dose: 5 mg Docusate Sodium (Colace) 100 mg PO DAILY [facility] Stop: 10/03/17 08:59 Last Admin: 08/12/17 09:02 Dose: 100 mg Heparin Sodium (Porcine) (Heparin) 5,000 units SUBQ Q12HR [facility] Stop: 10/11/17 20:59 Last Admin: 08/12/17 20:37 Dose: 5,000 units Dopamine HCl/Dextrose (Dopamine) 400 mg in 250 mls @ 0 mls/hr IV TITR PRN; Protocol; Per Protocol PRN Reason: BP MAINTENANCE (PER PROTOCOL) Stop: 10/02/17 07:47 Norepinephrine Bitartrate 8 mg (/ Dextrose) 258 mls @ 0 mls/hr IV TITR PRN; Protocol; 0 MCG/MIN PRN Reason: BP MAINTENANCE (PER PROTOCOL) Stop: 10/05/17 13:59 Last Admin: 08/13/17 04:20 Dose: 25 mcg/min, 48.37 mls/hr Piperacillin Sod/Tazobactam (Sod 2.25 gm/ Sodium Chloride) 50 mls @ 100 mls/hr IV Q6HR [facility] Stop: 10/05/17 17:59 Last Admin: 08/13/17 05:40 Dose: 100 mls/hr Diltiazem HCl 125 mg/ Dextrose 125 mls @ 5 mls/hr IV TITR FOUZIA; 5 MG/HR PRN Reason: Protocol Stop: 10/11/17 11:44 Last Admin: 08/12/17 20:24 Dose: 5 mg/hr, 5 mls/hr Insulin Aspart (Novolog Insulin Sliding Scale) 0 units SUBQ Q6HR FOUZIA PRN Reason: Protocol Stop: 10/02/17 00:00 Last Admin: 08/13/17 06:02 Dose: 6 units Lactobacillus Rhamnosus (Culturelle 15b) 1 each PO DAILY [facility] Stop: 10/07/17 08:59 Last Admin: 08/12/17 09:01 Dose: 1 each Lorazepam (Ativan) 1 mg IVP Q2H PRN; Protocol PRN Reason: Restlessness Stop: 10/09/17 09:44 Last Admin: 08/13/17 00:21 Dose: 1 mg Magnesium Hydroxide (Milk Of Magnesia) 30 ml GT Q72H PRN PRN Reason: NO BM FOR THREE DAYS Stop: 10/02/17 14:13 Mirtazapine (Remeron) 15 mg GT HS FOUZIA PRN Reason: Protocol Stop: 10/02/17 20:59 Last Admin: 08/12/17 20:36 Dose: 15 mg Miscellaneous (Clinical Monitoring) 1 ea PRN PRN PRN Reason: RENAL Stop: 10/05/17 11:28 Miscellaneous (Zosyn Iv Per Pharmacy) 1 ea PRN PRN PRN Reason: PROTOCOL Stop: 10/05/17 15:59 Miscellaneous (Probiotic Screen) 1 ea PRN PRN PRN Reason: PROTOCOL Stop: 10/06/17 14:14 Multivitamins/Vitamin C (Theragran) 1 tab PO DAILY [facility]OU[facility]IA Stop: 10/03/17 08:59 Last Admin: 08/12/17 09:01 Dose: 1 tab Ondansetron HCl (Zofran Odt) 4 mg PO Q6HR PRN PRN Reason: Nausea / Vomiting Stop: 10/02/17 14:13 Last Admin: 08/09/17 08:41 Dose: 4 mg Pantoprazole Sodium (Protonix) 40 mg IVP DAILY [facility] Stop: 10/02/17 08:59 Last Admin: 08/12/17 09:01 Dose: 40 mg Simethicone (Mylicon) 80 mg GT Q6H PRN PRN Reason: GAS PAIN Stop: 10/02/17 14:13 Sodium Phosphate (Fleet Enema) 118 ml RC PRN PRN PRN Reason: IF MOM/DULCOLAX INEFFECTIVE Stop: 10/02/17 14:13 Zinc Sulfate (Zinc Sulfate) 220 mg GT DAILY [facility] Stop: 10/03/17 08:59 Last Admin: 08/12/17 09:02 Dose: 220 mg General: Alert, No acute distress (scattered rhonchi) HEENT: Atraumatic, PERRLA, EOMI, Mucous membr. moist/pink Neck: Supple, Other (TRACH) Cardiovascular: Regular rate Lungs: Other (few rhonchi) Abdomen: Bowel sounds, Soft, Other (INTACT GT) Extremities: Edema (upper wxtrmities), Other (upper ext) Neurological: Sensation intact Skin: no Rash Psych/Mental Status: Mood NL - Procedures Procedures: Procedures Procedure Code Date BLOOD TRANSFUSION SERVICE 59979 02/24/18 EXCISION OF STOMACH, ENDO, DIAGN [id number] 07/10/17 INSPECTION OF LOWER INTESTINAL TRACT, ENDO [id number] 07/10/17 PERFORMANCE OF URINARY FILTRATION, <6 HRS/DAY [id number] 07/10/17 RESPIRATORY VENTILATION, GREATER THAN 96 CONSECUTIVE HOURS [id number] 08/02/17 TRANSFUSE NONAUT RED BLOOD CELLS IN PERIPH VEIN, PERC [id number] 08/02/17 Assessment/Plan - Assessment Assessment: 76 YO FEMALE WITH ANEMIA STOOL OB + NO OVERT GI BLEEDING BUT COULD BE SMALL BOWEL SOURCE RECENT EGD SHOWED GASTRITIS RECENT COLO SHOWED HEMORRHOIDS SBFT SHOWED REFLUX AND DELAYED TRANSIT WITHOUT OBSTRUCTION 1.FOLLOW H/H 2.IF GI BLEEDING OCCURS THEN GET BLEEDING SCAN VS ANGIOGRAPHY
--- NOTE | 2017-08-13 08:22 | Diagnostic Imaging Report ---
Portable chest x-ray HISTORY: Shortness of breath Compared with prior exam of August 11, 2017, there appears to be increased density in the left hemithorax suggesting increasing pleural effusion. Differences in radiographic technique may be due to being. Evidence of a small right pleural effusion. The heart remains enlarged. IMPRESSION: 1. Findings suggesting an increasing left pleural effusion 2. Evidence of persistent right pleural effusion and cardiomegaly. Findings suggest changes associated with congestive heart failure. Underlying pneumonia cannot be excluded. Clinical correlation is needed.
[2017-08-13] MEDS: Chlorhexidine Gluconate 0.12% 15mL Mouthwash MM SCH ×2 (08:30→20:04)
--- NOTE | 2017-08-13 09:17 | General Progress Note ---
Subjective - Review of Systems Events since last encounter: on vent in no distress Subjective: still on levophed Objective - Results Result Diagrams: 08/13/17 06:20 08/12/17 05:15 Recent Labs: Laboratory Last Values WBC 17.4 Th/cmm (4.8-10.8) H 08/13/17 06:20 RBC 2.42 Mil/cmm (3.80-5.20) L 08/13/17 06:20 Hgb 8.4 gm/dL (12-16) L 08/13/17 06:20 Hct 23.3 % (41.0-60) L 08/13/17 06:20 MCV 96.3 fl (81-100) 08/13/17 06:20 MCH 34.7 pg (27.0-31.0) H 08/13/17 06:20 MCHC Differential 36.0 pg (28.0-36.0) 08/13/17 06:20 RDW 16.9 % (11.5-20.0) 08/13/17 06:20 Plt Count 328 Th/cmm (150-400) 08/13/17 06:20 MPV 11.6 fl 08/13/17 06:20 Neutrophils % 84.5 % (40.0-80.0) H 08/13/17 06:20 Band Neutrophils % 4 % (0-10) 08/11/17 04:45 Lymphocytes % 4.7 % (20.0-50.0) L 08/13/17 06:20 Monocytes % 9.0 % (2.0-10.0) 08/13/17 06:20 Eosinophils % 1.8 % (0.0-5.0) 08/13/17 06:20 Basophils % 0.0 % (0.0-2.0) 08/13/17 06:20 Neutrophils (Manual) 81 % (40-80) H 08/11/17 04:45 Lymphocytes 8 % (20-50) L 08/11/17 04:45 Monocytes 3 % (2-10) 08/11/17 04:45 Eosinophils 4 % (0-5) 08/11/17 04:45 Basophils 1 % (0-3) 08/07/17 05:45 Hypochromia 1+ 08/02/17 15:37 Platelet Estimate ADEQUATE (NORMAL) 08/11/17 04:45 Platelet Morphology NORMAL (NORMAL) 08/02/17 15:37 Anisocytosis 1+ 08/07/17 05:45 Crenated Cell 2+ 08/02/17 15:37 RBC Morph Micro Appear ABNORMAL (NORMAL) 08/02/17 15:37 PT 12.9 SECONDS (9.5-11.5) H 08/02/17 13:58 INR 1.23 (0.5-1.4) 08/02/17 13:58 PTT (Actin FS) 33.6 SECONDS (26.0-38.0) 08/02/17 13:58 Specimen Source Arterial 08/03/17 08:58 Sample Site Right Radial 08/03/17 08:58 pH 7.42 (7.35-7.45) 08/03/17 08:58 pCO2 37.0 mmHg (35.0-45.0) 08/03/17 08:58 pO2 204.0 mmHg (80.0-100.0) H 08/03/17 08:58 HCO3 24.8 mEq/L (20.0-26.0) 08/03/17 08:58 Base Excess -0.2 mEq/L (-3.0-3.0) 08/03/17 08:58 O2 Saturation 100.0 % (92.0-100.0) 08/03/17 08:58 Rhett Test Positive 08/03/17 08:58 Vent Rate 12 08/03/17 08:58 Inspired O2 60 08/03/17 08:58 Tidal Volume 450 08/03/17 08:58 PEEP 5 08/03/17 08:58 Pressure (ins/psv/peep) NA 08/03/17 08:58 Critical Value LZHANG 08/03/17 08:58 Sodium 130 mEq/L (136-145) L 08/12/17 05:15 Potassium 3.9 mEq/L (3.5-5.1) 08/12/17 05:15 Chloride 94 mEq/L (98-107) L 08/12/17 05:15 Carbon Dioxide 25.5 mEq/L (21.0-31.0) 08/12/17 05:15 Anion Gap 14.4 (7.0-16.0) 08/12/17 05:15 BUN 62 mg/dL (7-25) H 08/12/17 05:15 Creatinine 3.4 mg/dL (0.6-1.2) H 08/12/17 05:15 Est GFR ( Amer) TNP 08/12/17 05:15 Est GFR (Non-Af Amer) TNP 08/12/17 05:15 BUN/Creatinine Ratio 18.2 08/12/17 05:15 Glucose 349 mg/dL (70-105) H 08/12/17 05:15 POC Glucose 257 MG/DL (70 - 105) H 08/13/17 05:46 Hemoglobin A1c % 7.7 % (4.0-6.0) H 08/02/17 15:37 Whole Bld Lactic Acid 1.97 mmol/L (0.60-1.99) 08/02/17 13:49 Calcium 8.8 mg/dL (8.6-10.3) 08/12/17 05:15 Magnesium 1.7 mg/dL (1.9-2.7) L 08/10/17 04:30 Iron 10 ug/dL (27-139) L 08/02/17 13:56 TIBC 135 ug/dL (250-450) L 08/02/17 13:56 Iron Saturation 7 % (15-55) L 08/02/17 13:56 Unsaturated IBC 125 ug/dL (118-369) 08/02/17 13:56 Ferritin 588 ng/mL (15-150) H 08/02/17 13:56 Total Bilirubin 0.6 mg/dL (0.3-1.0) 08/09/17 06:34 Direct Bilirubin 0.09 mg/dL (0.0-0.2) 08/02/17 13:57 AST 21 U/L (13-39) 08/09/17 06:34 ALT 12 U/L (7-52) 08/09/17 06:34 Alkaline Phosphatase 91 U/L (34-104) 08/09/17 06:34 Troponin I 1.16 ng/mL (0.01-0.05) H* D 08/04/17 06:30 B-Natriuretic Peptide 372.0 pg/mL (5.0-100.0) H 08/05/17 06:15 Total Protein 6.4 gm/dL (6.0-8.3) 08/09/17 06:34 Albumin 2.9 gm/dL (3.7-5.3) L 08/09/17 06:34 Globulin 3.5 gm/dL 08/09/17 06:34 Albumin/Globulin Ratio 0.8 (1.0-1.8) L 08/09/17 06:34 Triglycerides 132 mg/dL (<150) 08/04/17 06:30 Cholesterol 55 mg/dL (<200) 08/04/17 06:30 LDL Cholesterol Direct 16 mg/dL (75-193) L 08/04/17 06:30 HDL Cholesterol 13 mg/dL (23-92) L 08/04/17 06:30 Amylase 12 U/L (29-103) L 08/02/17 13:43 Lipase 4 U/L (11-82) L 08/02/17 13:43 TSH 3.74 uIU/ml (0.34-5.60) 08/04/17 06:30 Stool Occult Blood POSITIVE (NEGATIVE) H 08/03/17 17:50 Random Vancomycin 14.8 ug/mL (5.0-40.0) 08/09/17 06:34 Hepatitis A IgM Ab Negative (Negative) 08/08/17 08:15 Hep Bs Antigen Negative (Negative) 08/08/17 08:15 Hep B Core IgM Ab Negative (Negative) 08/08/17 08:15 Hepatitis C Antibody <0.1 s/co ratio (0.0-0.9) 08/08/17 08:15 Blood Type A POSITIVE 08/02/17 20:54 Antibody Screen POSITIVE 08/02/17 20:54 Antibody Identification Anti-K 08/02/17 20:54 Crossmatch See Detail 08/02/17 20:54 - Physical Exam Vitals and I&O: Vital Signs Temp 98.3 F 08/13/17 06:00 Pulse 85 08/13/17 07:35 Resp 16 08/13/17 06:00 BP 114/19 08/13/17 06:45 Pulse Ox 100 08/13/17 07:35 Intake & Output 08/12/17 08/13/17 08/13/17 18:59 06:59 18:59 Intake Total 253.51 1353.144 Output Total 0 Balance 253.51 1353.144 Weight (lbs) 93.894 kg Intake: Intake, IV Amount 253.51 603.144 Diltiazem 125 mg In 42 Dextrose 5% 100 ml @ 5 MG /HR 5 mls/hr IV TITR [facility] Rx#:[id number] Norepinephrine 8 mg In 153.51 461.144 Dextrose 5% 250 ml @ 0 MCG/MIN IV TITR PRN Rx#: [id number] Piperacillin Sodium/ 100 100 Tazobact 2.25 gm In Sodium Chloride 0.9% 50 ml @ 100 mls/hr IV Q6HR [facility] Rx#:[id number] Tube Feeding 600 Other 150 Output: Urine 0 Other: # Bowel Movements 0 Stool Characteristics Soft Active Medications: Current Medications Acetaminophen (Tylenol 650mg/20.3ml Suspension) 650 mg GT DAILY [facility] Stop: 10/03/17 08:59 Last Admin: 08/12/17 09:01 Dose: 650 mg Albuterol/Ipratropium (Duoneb Neb) 3 ml HHN Q4HRT [facility] Stop: 10/02/17 10:59 Last Admin: 08/13/17 07:34 Dose: 3 ml Ascorbic Acid (Vitamin C) 500 mg PO DAILY [facility] Stop: 10/03/17 08:59 Last Admin: 08/12/17 09:02 Dose: 500 mg Aspirin (Aspirin Chewable) 81 mg GT DAILY [facility] Stop: 10/03/17 08:59 Last Admin: 08/12/17 09:02 Dose: 81 mg Atorvastatin Calcium (Lipitor) 40 mg GT HS [facility] Stop: 10/03/17 20:59 Last Admin: 08/12/17 20:36 Dose: 40 mg Bisacodyl (Dulcolax 10 Mg Supp) 10 mg RC Q72HR PRN PRN Reason: IF MOM INEFFECTIVE Stop: 10/02/17 14:13 Chlorhexidine Gluconate (Peridex) 15 ml MM 0800,2000 [facility] Stop: 10/02/17 07:59 Last Admin: 08/12/17 19:59 Dose: 15 ml Cholecalciferol (Vitamin D3) 1,000 iu GT DAILY [facility] Stop: 10/03/17 08:59 Last Admin: 08/12/17 09:02 Dose: 1,000 iu Diltiazem HCl (Cardizem) 5 mg IVP Q4H PRN PRN Reason: INCREASE HEART RATE Stop: 10/01/17 21:59 Last Admin: 08/12/17 10:57 Dose: 5 mg Docusate Sodium (Colace) 100 mg PO DAILY [facility] Stop: 10/03/17 08:59 Last Admin: 08/12/17 09:02 Dose: 100 mg Heparin Sodium (Porcine) (Heparin) 5,000 units SUBQ Q12HR [facility] Stop: 10/11/17 20:59 Last Admin: 08/12/17 20:37 Dose: 5,000 units Dopamine HCl/Dextrose (Dopamine) 400 mg in 250 mls @ 0 mls/hr IV TITR PRN; Protocol; Per Protocol PRN Reason: BP MAINTENANCE (PER PROTOCOL) Stop: 10/02/17 07:47 Norepinephrine Bitartrate 8 mg (/ Dextrose) 258 mls @ 0 mls/hr IV TITR PRN; Protocol; 0 MCG/MIN PRN Reason: BP MAINTENANCE (PER PROTOCOL) Stop: 10/05/17 13:59 Last Admin: 08/13/17 04:20 Dose: 25 mcg/min, 48.37 mls/hr Piperacillin Sod/Tazobactam (Sod 2.25 gm/ Sodium Chloride) 50 mls @ 100 mls/hr IV Q6HR [facility] Stop: 10/05/17 17:59 Last Admin: 08/13/17 05:40 Dose: 100 mls/hr Diltiazem HCl 125 mg/ Dextrose 125 mls @ 5 mls/hr IV TITR [facility]; 5 MG/HR PRN Reason: Protocol Stop: 10/11/17 11:44 Last Admin: 08/12/17 20:24 Dose: 5 mg/hr, 5 mls/hr Insulin Aspart (Novolog Insulin Sliding Scale) 0 units SUBQ Q6HR [facility] PRN Reason: Protocol Stop: 10/02/17 00:00 Last Admin: 08/13/17 06:02 Dose: 6 units Lactobacillus Rhamnosus (Culturelle 15b) 1 each PO DAILY [facility] Stop: 10/07/17 08:59 Last Admin: 08/12/17 09:01 Dose: 1 each Lorazepam (Ativan) 1 mg IVP Q2H PRN; Protocol PRN Reason: Restlessness Stop: 10/09/17 09:44 Last Admin: 08/13/17 00:21 Dose: 1 mg Magnesium Hydroxide (Milk Of Magnesia) 30 ml GT Q72H PRN PRN Reason: NO BM FOR THREE DAYS Stop: 10/02/17 14:13 Mirtazapine (Remeron) 15 mg GT HS [facility] PRN Reason: Protocol Stop: 10/02/17 20:59 Last Admin: 08/12/17 20:36 Dose: 15 mg Miscellaneous (Clinical Monitoring) 1 ea MC PRN PRN PRN Reason: RENAL Stop: 10/05/17 11:28 Miscellaneous (Zosyn Iv Per Pharmacy) 1 ea PRN PRN PRN Reason: PROTOCOL Stop: 10/05/17 15:59 Miscellaneous (Probiotic Screen) 1 ea PRN PRN PRN Reason: PROTOCOL Stop: 10/06/17 14:14 Multivitamins/Vitamin C (Theragran) 1 tab PO DAILY [facility] Stop: 10/03/17 08:59 Last Admin: 08/12/17 09:01 Dose: 1 tab Ondansetron HCl (Zofran Odt) 4 mg PO Q6HR PRN PRN Reason: Nausea / Vomiting Stop: 10/02/17 14:13 Last Admin: 08/09/17 08:41 Dose: 4 mg Pantoprazole Sodium (Protonix) 40 mg IVP DAILY [facility] Stop: 10/02/17 08:59 Last Admin: 08/12/17 09:01 Dose: 40 mg Simethicone (Mylicon) 80 mg GT Q6H PRN PRN Reason: GAS PAIN Stop: 10/02/17 14:13 Sodium Phosphate (Fleet Enema) 118 ml RC PRN PRN PRN Reason: IF MOM/DULCOLAX INEFFECTIVE Stop: 10/02/17 14:13 Zinc Sulfate (Zinc Sulfate) 220 mg GT DAILY [facility] Stop: 10/03/17 08:59 Last Admin: 08/12/17 09:02 Dose: 220 mg General: Alert, No acute distress (scattered rhonchi) HEENT: Atraumatic, PERRLA, EOMI, Mucous membr. moist/pink Neck: Supple, Other (TRACH) Cardiovascular: Regular rate Lungs: Other (few rhonchi) Abdomen: Bowel sounds, Soft, Other (INTACT GT) Extremities: Edema (upper wxtrmities), Other (upper ext) Neurological: Sensation intact Skin: no Rash Psych/Mental Status: Mood NL - Procedures Procedures: Procedures Procedure Code Date BLOOD TRANSFUSION SERVICE 70010 08/02/17 EXCISION OF STOMACH, ENDO, DIAGN [id number] 07/10/17 INSPECTION OF LOWER INTESTINAL TRACT, ENDO [id number] 07/10/17 PERFORMANCE OF URINARY FILTRATION, <6 HRS/DAY [id number] 07/10/17 RESPIRATORY VENTILATION, GREATER THAN 96 CONSECUTIVE HOURS [id number] 08/02/17 TRANSFUSE NONAUT RED BLOOD CELLS IN PERIPH VEIN, PERC 11364L6 08/02/17 Nutritional Asmnt/Malnutr-PDOC - Dietary Evaluation Malnutrition Findings (Please click <Entered> for more info): Nutritional Asmnt/Malnutrition Start: 08/05/17 15: 53 Text: Status: Complete Freq: Document 08/05/17 15:53 DONNA (Rec: 08/05/17 16:19 LCMAX [id number]) Nutritional Asmnt/Malnutrition Patient General Information Nutritional Screening High Risk Diagnosis sepsis, respiratory failure, ESRD Pertinent Medical Hx/Surgical Hx ESRD on HD, respiratory failure with tracheostomy, dysphagia, a fib, anemia, HTN, GERD Subjective Information Pt on vent, not able to interview. Pt was on TF Novosource Renal 30ml/hr continuous, NPO today for surgery. Pt has dialysis ordred per nurse note. Current Diet Order/ Nutrition Support NPO on 08/05 Pertinent Medications vit C, vit D3, colace, novolog , remeron, theragran, protonix , zinc Pertinent Labs 08/05 Na 134, K 3.6, Cl 102, BUN 77, Cr 4.2, Glucose 216, POC 224-233 08/02 A1c 7.7 Nutritional Hx/Data Height 1.6 m Height (Calculated Centimeters) 160.0 Current Weight (lbs) 87.543 kg Weight (Calculated Kilograms) 87.5 Weight (Calculated Grams) 05681.3 [place] Body Weight 115 Body Mass Index (BMI) 34.2 Weight Status Obese GI Symptoms GI Symptoms None Last BM 08/04 Difficult in: None Skin Integrity/Comment: reddened to left/right inner thigh, right lateral index finger, right/left arm; skin tear to left abdominal fold; pressure area to coccy/sacral Estimated Nutritional Goals BEE in Kcals: Adj wt of IBW Calories/Kcals/Kg 30-35 adj wt 61kg Kcals Calculated 2043-7862 Protein: Adj wt of IBW Protein g/k.2-1.4 Protein Calculated 73-85 Fluid: ml 1830-2135ml (1ml/kcal) Nutritional Problem 1. Problem Problem altered nutrition related lab values Etiology hx of ESRD, endocrine dysfunction Signs/Symptoms: BUN 77, Cr 4.2, Glucose 216, POC 224-233, A1c 7.7 Malnutrition Alert Protein-Calorie Malnutrition N/A Is there a minimum of two criteria No selected? Query Text:Check all the applicable criteria. A minimum of two criteria are recommended for diagnosis of either severe or non-severe malnutrition. Intervention/Recommendation Comments 1. Resume TF Novosource Renal 30ml/hr continuous as ordered. increase to goal rate of 40ml /hr continuous as tolerated. This will provide 1920kcal, 87g protein and 688ml free water, meeting 100% of nutritional needs 2. Monitor TF rate, tolerance, wt weekly, skin integrity and labs 3. F/U as high risk in 2-3 days, 3-3/ Expected Outcomes/Goals Expected Outcomes/Goals 1. Pt to meet at least 75% of nutritional needs via nutrition support with tolerance 2. Wt stability, skin to remain intact, labs to approach WNL.
[2017-08-13] MEDS: Lactobacillus Rhamnosus GG 15 Billion CFU CAP.SPRINK PO SCH (10:01)
[2017-08-13] MEDS: Aspirin 81mg Chewable Tab GT SCH (10:01)
[2017-08-13] MEDS: Multivitamin Tab PO SCH (10:02)
--- NOTE | 2017-08-13 11:36 | Infectious Disease Prog Note ---
Infectious Disease Subjective - Review of Systems Service Date: 08/13/17 Events since last encounter: None Subjective: no fever. Infectious Disease Objective - Results Result Diagrams: 08/13/17 06:20 08/12/17 05:15 Recent Labs: Laboratory Last Values WBC 17.4 Th/cmm (4.8-10.8) H 08/13/17 06:20 RBC 2.42 Mil/cmm (3.80-5.20) L 08/13/17 06:20 Hgb 8.4 gm/dL (12-16) L 08/13/17 06:20 Hct 23.3 % (41.0-60) L 08/13/17 06:20 MCV 96.3 fl (81-100) 08/13/17 06:20 MCH 34.7 pg (27.0-31.0) H 08/13/17 06:20 MCHC Differential 36.0 pg (28.0-36.0) 08/13/17 06:20 RDW 16.9 % (11.5-20.0) 08/13/17 06:20 Plt Count 328 Th/cmm (150-400) 08/13/17 06:20 MPV 11.6 fl 08/13/17 06:20 Neutrophils % 84.5 % (40.0-80.0) H 08/13/17 06:20 Band Neutrophils % 4 % (0-10) 08/11/17 04:45 Lymphocytes % 4.7 % (20.0-50.0) L 08/13/17 06:20 Monocytes % 9.0 % (2.0-10.0) 08/13/17 06:20 Eosinophils % 1.8 % (0.0-5.0) 08/13/17 06:20 Basophils % 0.0 % (0.0-2.0) 08/13/17 06:20 Neutrophils (Manual) 81 % (40-80) H 08/11/17 04:45 Lymphocytes 8 % (20-50) L 08/11/17 04:45 Monocytes 3 % (2-10) 08/11/17 04:45 Eosinophils 4 % (0-5) 08/11/17 04:45 Basophils 1 % (0-3) 08/07/17 05:45 Hypochromia 1+ 08/02/17 15:37 Platelet Estimate ADEQUATE (NORMAL) 08/11/17 04:45 Platelet Morphology NORMAL (NORMAL) 08/02/17 15:37 Anisocytosis 1+ 08/07/17 05:45 Crenated Cell 2+ 08/02/17 15:37 RBC Morph Micro Appear ABNORMAL (NORMAL) 08/02/17 15:37 PT 12.9 SECONDS (9.5-11.5) H 08/02/17 13:58 INR 1.23 (0.5-1.4) 08/02/17 13:58 PTT (Actin FS) 33.6 SECONDS (26.0-38.0) 08/02/17 13:58 Specimen Source Arterial 08/03/17 08:58 Sample Site Right Radial 08/03/17 08:58 pH 7.42 (7.35-7.45) 08/03/17 08:58 pCO2 37.0 mmHg (35.0-45.0) 08/03/17 08:58 pO2 204.0 mmHg (80.0-100.0) H 08/03/17 08:58 HCO3 24.8 mEq/L (20.0-26.0) 08/03/17 08:58 Base Excess -0.2 mEq/L (-3.0-3.0) 08/03/17 08:58 O2 Saturation 100.0 % (92.0-100.0) 08/03/17 08:58 Rhett Test Positive 08/03/17 08:58 Vent Rate 12 08/03/17 08:58 Inspired O2 60 08/03/17 08:58 Tidal Volume 450 08/03/17 08:58 PEEP 5 08/03/17 08:58 Pressure (ins/psv/peep) NA 08/03/17 08:58 Critical Value LZHANG 08/03/17 08:58 Sodium 130 mEq/L (136-145) L 08/12/17 05:15 Potassium 3.9 mEq/L (3.5-5.1) 08/12/17 05:15 Chloride 94 mEq/L (98-107) L 08/12/17 05:15 Carbon Dioxide 25.5 mEq/L (21.0-31.0) 08/12/17 05:15 Anion Gap 14.4 (7.0-16.0) 08/12/17 05:15 BUN 62 mg/dL (7-25) H 08/12/17 05:15 Creatinine 3.4 mg/dL (0.6-1.2) H 08/12/17 05:15 Est GFR ( Amer) TNP 08/12/17 05:15 Est GFR (Non-Af Amer) TNP 08/12/17 05:15 BUN/Creatinine Ratio 18.2 08/12/17 05:15 Glucose 349 mg/dL (70-105) H 08/12/17 05:15 POC Glucose 257 MG/DL (70 - 105) H 08/13/17 05:46 Hemoglobin A1c % 7.7 % (4.0-6.0) H 08/02/17 15:37 Whole Bld Lactic Acid 1.97 mmol/L (0.60-1.99) 08/02/17 13:49 Calcium 8.8 mg/dL (8.6-10.3) 08/12/17 05:15 Magnesium 1.7 mg/dL (1.9-2.7) L 08/10/17 04:30 Iron 10 ug/dL (27-139) L 08/02/17 13:56 TIBC 135 ug/dL (250-450) L 08/02/17 13:56 Iron Saturation 7 % (15-55) L 08/02/17 13:56 Unsaturated IBC 125 ug/dL (118-369) 08/02/17 13:56 Ferritin 588 ng/mL (15-150) H 08/02/17 13:56 Total Bilirubin 0.6 mg/dL (0.3-1.0) 08/09/17 06:34 Direct Bilirubin 0.09 mg/dL (0.0-0.2) 08/02/17 13:57 AST 21 U/L (13-39) 08/09/17 06:34 ALT 12 U/L (7-52) 08/09/17 06:34 Alkaline Phosphatase 91 U/L (34-104) 08/09/17 06:34 Troponin I 1.16 ng/mL (0.01-0.05) H* D 08/04/17 06:30 B-Natriuretic Peptide 372.0 pg/mL (5.0-100.0) H 08/05/17 06:15 Total Protein 6.4 gm/dL (6.0-8.3) 08/09/17 06:34 Albumin 2.9 gm/dL (3.7-5.3) L 08/09/17 06:34 Globulin 3.5 gm/dL 08/09/17 06:34 Albumin/Globulin Ratio 0.8 (1.0-1.8) L 08/09/17 06:34 Triglycerides 132 mg/dL (<150) 08/04/17 06:30 Cholesterol 55 mg/dL (<200) 08/04/17 06:30 LDL Cholesterol Direct 16 mg/dL (75-193) L 08/04/17 06:30 HDL Cholesterol 13 mg/dL (23-92) L 08/04/17 06:30 Amylase 12 U/L (29-103) L 08/02/17 13:43 Lipase 4 U/L (11-82) L 08/02/17 13:43 TSH 3.74 uIU/ml (0.34-5.60) 08/04/17 06:30 Stool Occult Blood POSITIVE (NEGATIVE) H 08/03/17 17:50 Random Vancomycin 14.8 ug/mL (5.0-40.0) 08/09/17 06:34 Hepatitis A IgM Ab Negative (Negative) 08/08/17 08:15 Hep Bs Antigen Negative (Negative) 08/08/17 08:15 Hep B Core IgM Ab Negative (Negative) 08/08/17 08:15 Hepatitis C Antibody <0.1 s/co ratio (0.0-0.9) 08/08/17 08:15 Blood Type A POSITIVE 08/02/17 20:54 Antibody Screen POSITIVE 08/02/17 20:54 Antibody Identification Anti-K 08/02/17 20:54 Crossmatch See Detail 08/02/17 20:54 - Physical Exam Vitals and I&O: Vital Signs Temp 100.7 F 08/13/17 08:00 Pulse 84 08/13/17 09:44 Resp 16 08/13/17 08:00 BP 100/20 08/13/17 08:00 Pulse Ox 100 08/13/17 09:44 Intake & Output 08/12/17 08/13/17 08/13/17 18:59 06:59 18:59 Intake Total 253.51 1353.144 125 Output Total 0 Balance 253.51 1353.144 125 Weight (lbs) 93.894 kg Intake: Intake, IV Amount 253.51 603.144 125 Diltiazem 125 mg In 42 125 Dextrose 5% 100 ml @ 5 MG /HR 5 mls/hr IV TITR [facility] Rx#:[id number] Norepinephrine 8 mg In 153.51 461.144 Dextrose 5% 250 ml @ 0 MCG/MIN IV TITR PRN Rx#: [id number] Piperacillin Sodium/ 100 100 Tazobact 2.25 gm In Sodium Chloride 0.9% 50 ml @ 100 mls/hr IV Q6HR [facility] Rx#:[id number] Tube Feeding 600 Other 150 Output: Urine 0 Other: # Bowel Movements 0 Stool Characteristics Soft Soft Brown Active Medications: Current Medications Acetaminophen (Tylenol 650mg/20.3ml Suspension) 650 mg GT DAILY [facility] Stop: 10/03/17 08:59 Last Admin: 08/13/17 10:02 Dose: 650 mg Albuterol/Ipratropium (Duoneb Neb) 3 ml HHN Q4HRT FOUZIA Stop: 10/02/17 10:59 Last Admin: 08/13/17 07:34 Dose: 3 ml Ascorbic Acid (Vitamin C) 500 mg PO DAILY FOU[facility] Stop: 10/03/17 08:59 Last Admin: 08/13/17 10:02 Dose: 500 mg Aspirin (Aspirin Chewable) 81 mg GT DAILY [facility] Stop: 10/03/17 08:59 Last Admin: 08/13/17 10:01 Dose: 81 mg Atorvastatin Calcium (Lipitor) 40 mg GT HS FOUZIA Stop: 10/03/17 20:59 Last Admin: 08/12/17 20:36 Dose: 40 mg Bisacodyl (Dulcolax 10 Mg Supp) 10 mg RC Q72HR PRN PRN Reason: IF MOM INEFFECTIVE Stop: 10/02/17 14:13 Chlorhexidine Gluconate (Peridex) 15 ml MM 0800,2000 [facility] Stop: 10/02/17 07:59 Last Admin: 08/12/17 19:59 Dose: 15 ml Cholecalciferol (Vitamin D3) 1,000 iu GT DAILY [facility] Stop: 10/03/17 08:59 Last Admin: 08/13/17 10:02 Dose: 1,000 iu Diltiazem HCl (Cardizem) 5 mg IVP Q4H PRN PRN Reason: INCREASE HEART RATE Stop: 10/01/17 21:59 Last Admin: 08/12/17 10:57 Dose: 5 mg Docusate Sodium (Colace) 100 mg PO DAILY [facility] Stop: 10/03/17 08:59 Last Admin: 08/13/17 09:21 Dose: Not Given Heparin Sodium (Porcine) (Heparin) 5,000 units SUBQ Q12HR [facility] Stop: 10/11/17 20:59 Last Admin: 08/13/17 10:03 Dose: 5,000 units Dopamine HCl/Dextrose (Dopamine) 400 mg in 250 mls @ 0 mls/hr IV TITR PRN; Protocol; Per Protocol PRN Reason: BP MAINTENANCE (PER PROTOCOL) Stop: 10/02/17 07:47 Norepinephrine Bitartrate 8 mg (/ Dextrose) 258 mls @ 0 mls/hr IV TITR PRN; Protocol; 0 MCG/MIN PRN Reason: BP MAINTENANCE (PER PROTOCOL) Stop: 08/13/17 12:00 Last Admin: 08/13/17 04:20 Dose: 25 mcg/min, 48.37 mls/hr Piperacillin Sod/Tazobactam (Sod 2.25 gm/ Sodium Chloride) 50 mls @ 100 mls/hr IV Q6HR [facility] Stop: 10/05/17 17:59 Last Admin: 08/13/17 05:40 Dose: 100 mls/hr Diltiazem HCl 125 mg/ Dextrose 125 mls @ 5 mls/hr IV TITR FOUZIA; 5 MG/HR PRN Reason: Protocol Stop: 10/11/17 11:44 Last Titration: 08/13/17 09:22 Dose: Infused Norepinephrine Bitartrate 8 mg (/ Sodium Chloride) 258 mls @ 0 mls/hr IV TITR PRN; Protocol; 0 MCG/MIN PRN Reason: BP MAINTENANCE (PER PROTOCOL) Stop: 10/12/17 10:59 Insulin Aspart (Novolog Insulin Sliding Scale) 0 units SUBQ Q6HR FOUZIA PRN Reason: Protocol Stop: 10/02/17 00:00 Last Admin: 08/13/17 06:02 Dose: 6 units Lactobacillus Rhamnosus (Culturelle 15b) 1 each PO DAILY [facility] Stop: 10/07/17 08:59 Last Admin: 08/13/17 10:01 Dose: 1 each Lorazepam (Ativan) 1 mg IVP Q2H PRN; Protocol PRN Reason: Restlessness Stop: 10/09/17 09:44 Last Admin: 08/13/17 00:21 Dose: 1 mg Magnesium Hydroxide (Milk Of Magnesia) 30 ml GT Q72H PRN PRN Reason: NO BM FOR THREE DAYS Stop: 10/02/17 14:13 Mirtazapine (Remeron) 15 mg GT HS FOUZIA PRN Reason: Protocol Stop: 10/02/17 20:59 Last Admin: 08/12/17 20:36 Dose: 15 mg Miscellaneous (Clinical Monitoring) 1 ea PRN PRN PRN Reason: RENAL Stop: 10/05/17 11:28 Miscellaneous (Zosyn Iv Per Pharmacy) 1 ea PRN PRN PRN Reason: PROTOCOL Stop: 10/05/17 15:59 Miscellaneous (Probiotic Screen) 1 ea PRN PRN PRN Reason: PROTOCOL Stop: 10/06/17 14:14 Multivitamins/Vitamin C (Theragran) 1 tab PO DAILY FOUZIA Stop: 10/03/17 08:59 Last Admin: 08/13/17 10:02 Dose: 1 tab Ondansetron HCl (Zofran Odt) 4 mg PO Q6HR PRN PRN Reason: Nausea / Vomiting Stop: 10/02/17 14:13 Last Admin: 08/09/17 08:41 Dose: 4 mg Pantoprazole Sodium (Protonix) 40 mg IVP DAILY FOUZIA Stop: 10/02/17 08:59 Last Admin: 08/13/17 10:02 Dose: 40 mg Simethicone (Mylicon) 80 mg GT Q6H PRN PRN Reason: GAS PAIN Stop: 10/02/17 14:13 Sodium Phosphate (Fleet Enema) 118 ml RC PRN PRN PRN Reason: IF MOM/DULCOLAX INEFFECTIVE Stop: 10/02/17 14:13 Zinc Sulfate (Zinc Sulfate) 220 mg GT DAILY FOUZIA Stop: 10/03/17 08:59 Last Admin: 08/13/17 10:01 Dose: 220 mg General: no acute distress, well developed, well nourished HEENT: atraumatic, normocephalic, PERRLA, EOMI Neck: supple, tracheostomy, no thyromegaly Cardiovascular: S1S2, regular Lungs: clear to auscultation bilaterally, clear to percussion Abdomen: soft, no tender, no distended, no mass Extremities: edema, no cyanosis, no clubbing Neurological: awake, alert, oriented Skin: intact - Procedures Procedures: Procedures Procedure Code Date BLOOD TRANSFUSION SERVICE 51389 08/02/17 EXCISION OF STOMACH, ENDO, DIAGN [id number] 07/10/17 INSPECTION OF LOWER INTESTINAL TRACT, ENDO [id number] 07/10/17 PERFORMANCE OF URINARY FILTRATION, <6 HRS/DAY [id number] 07/10/17 RESPIRATORY VENTILATION, GREATER THAN 96 CONSECUTIVE HOURS [id number] 08/02/17 TRANSFUSE NONAUT RED BLOOD CELLS IN PERIPH VEIN, PERC [id number] 08/02/17 Infectious Disease Assmt/Plan - Assessment Assessment: 1. Septic shock. improved. 2. Gram-negative negative bacteremia treated 3. Pneumonia. 4. 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 5. Diabetes mellitus type 2. 6. Obesity. - Plan Plan: Continue zosyn for few days.(total D7/10 days). Check Procalcitonin. Nutritional Asmnt/Malnutr-PDOC - Dietary Evaluation Malnutrition Findings (Please click <Entered> for more info): Nutritional Asmnt/Malnutrition Start: 08/05/17 15: 53 Text: Status: Complete Freq: Document 08/05/17 15:53 NAVIN (Rec: 08/05/17 16:19 [facility]) Nutritional Asmnt/Malnutrition Patient General Information Nutritional Screening High Risk Diagnosis sepsis, respiratory failure, ESRD Pertinent Medical Hx/Surgical Hx ESRD on HD, respiratory failure with tracheostomy, dysphagia, a fib, anemia, HTN, GERD Subjective Information Pt on vent, not able to interview. Pt was on TF Novosource Renal 30ml/hr continuous, NPO today for surgery. Pt has dialysis ordred per nurse note. Current Diet Order/ Nutrition Support NPO on 08/05 Pertinent Medications vit C, vit D3, colace, novolog , remeron, theragran, protonix , zinc Pertinent Labs 08/05 Na 134, K 3.6, Cl 102, BUN 77, Cr 4.2, Glucose 216, POC 224-233 08/02 A1c 7.7 Nutritional Hx/Data Height 1.6 m Height (Calculated Centimeters) 160.0 Current Weight (lbs) 87.543 kg Weight (Calculated Kilograms) 87.5 Weight (Calculated Grams) 96410.3 [place] Body Weight 115 Body Mass Index (BMI) 34.2 Weight Status Obese GI Symptoms GI Symptoms None Last BM 08/04 Difficult in: None Skin Integrity/Comment: reddened to left/right inner thigh, right lateral index finger, right/left arm; skin tear to left abdominal fold; pressure area to coccy/sacral Estimated Nutritional Goals BEE in Kcals: Adj wt of IBW Calories/Kcals/Kg 30-35 adj wt 61kg Kcals Calculated 2922-4385 Protein: Adj wt of IBW Protein g/k.2-1.4 Protein Calculated 73-85 Fluid: ml 1830-2135ml (1ml/kcal) Nutritional Problem 1. Problem Problem altered nutrition related lab values Etiology hx of ESRD, endocrine dysfunction Signs/Symptoms: BUN 77, Cr 4.2, Glucose 216, POC 224-233, A1c 7.7 Malnutrition Alert Protein-Calorie Malnutrition N/A Is there a minimum of two criteria No selected? Query Text:Check all the applicable criteria. A minimum of two criteria are recommended for diagnosis of either severe or non-severe malnutrition. Intervention/Recommendation Comments 1. Resume TF Novosource Renal 30ml/hr continuous as ordered. increase to goal rate of 40ml /hr continuous as tolerated. This will provide 1920kcal, 87g protein and 688ml free water, meeting 100% of nutritional needs 2. Monitor TF rate, tolerance, wt weekly, skin integrity and labs 3. F/U as high risk in 2-3 days, 08/07-3 Expected Outcomes/Goals Expected Outcomes/Goals 1. Pt to meet at least 75% of nutritional needs via nutrition support with tolerance 2. Wt stability, skin to remain intact, labs to approach WNL.
--- NOTE | 2017-08-13 14:32 | General Progress Note ---
Subjective - Review of Systems Service Date: 08/13/17 Subjective: stuporous today, on vent Objective - Results Result Diagrams: 08/13/17 06:20 08/12/17 05:15 Recent Labs: Laboratory Last Values WBC 17.4 Th/cmm (4.8-10.8) H 08/13/17 06:20 RBC 2.42 Mil/cmm (3.80-5.20) L 08/13/17 06:20 Hgb 8.4 gm/dL (12-16) L 08/13/17 06:20 Hct 23.3 % (41.0-60) L 08/13/17 06:20 MCV 96.3 fl (81-100) 08/13/17 06:20 MCH 34.7 pg (27.0-31.0) H 08/13/17 06:20 MCHC Differential 36.0 pg (28.0-36.0) 08/13/17 06:20 RDW 16.9 % (11.5-20.0) 08/13/17 06:20 Plt Count 328 Th/cmm (150-400) 08/13/17 06:20 MPV 11.6 fl 08/13/17 06:20 Neutrophils % 84.5 % (40.0-80.0) H 08/13/17 06:20 Band Neutrophils % 4 % (0-10) 08/11/17 04:45 Lymphocytes % 4.7 % (20.0-50.0) L 08/13/17 06:20 Monocytes % 9.0 % (2.0-10.0) 08/13/17 06:20 Eosinophils % 1.8 % (0.0-5.0) 08/13/17 06:20 Basophils % 0.0 % (0.0-2.0) 08/13/17 06:20 Neutrophils (Manual) 81 % (40-80) H 08/11/17 04:45 Lymphocytes 8 % (20-50) L 08/11/17 04:45 Monocytes 3 % (2-10) 08/11/17 04:45 Eosinophils 4 % (0-5) 08/11/17 04:45 Basophils 1 % (0-3) 08/07/17 05:45 Hypochromia 1+ 08/02/17 15:37 Platelet Estimate ADEQUATE (NORMAL) 08/11/17 04:45 Platelet Morphology NORMAL (NORMAL) 08/02/17 15:37 Anisocytosis 1+ 08/07/17 05:45 Crenated Cell 2+ 08/02/17 15:37 RBC Morph Micro Appear ABNORMAL (NORMAL) 08/02/17 15:37 PT 12.9 SECONDS (9.5-11.5) H 08/02/17 13:58 INR 1.23 (0.5-1.4) 08/02/17 13:58 PTT (Actin FS) 33.6 SECONDS (26.0-38.0) 08/02/17 13:58 Specimen Source Arterial 08/03/17 08:58 Sample Site Right Radial 08/03/17 08:58 pH 7.42 (7.35-7.45) 08/03/17 08:58 pCO2 37.0 mmHg (35.0-45.0) 08/03/17 08:58 pO2 204.0 mmHg (80.0-100.0) H 08/03/17 08:58 HCO3 24.8 mEq/L (20.0-26.0) 08/03/17 08:58 Base Excess -0.2 mEq/L (-3.0-3.0) 08/03/17 08:58 O2 Saturation 100.0 % (92.0-100.0) 08/03/17 08:58 Rhett Test Positive 08/03/17 08:58 Vent Rate 12 08/03/17 08:58 Inspired O2 60 08/03/17 08:58 Tidal Volume 450 08/03/17 08:58 PEEP 5 08/03/17 08:58 Pressure (ins/psv/peep) NA 08/03/17 08:58 Critical Value LZHANG 08/03/17 08:58 Sodium 130 mEq/L (136-145) L 08/12/17 05:15 Potassium 3.9 mEq/L (3.5-5.1) 08/12/17 05:15 Chloride 94 mEq/L (98-107) L 08/12/17 05:15 Carbon Dioxide 25.5 mEq/L (21.0-31.0) 08/12/17 05:15 Anion Gap 14.4 (7.0-16.0) 08/12/17 05:15 BUN 62 mg/dL (7-25) H 08/12/17 05:15 Creatinine 3.4 mg/dL (0.6-1.2) H 08/12/17 05:15 Est GFR ( Amer) TNP 08/12/17 05:15 Est GFR (Non-Af Amer) TNP 08/12/17 05:15 BUN/Creatinine Ratio 18.2 08/12/17 05:15 Glucose 349 mg/dL (70-105) H 08/12/17 05:15 POC Glucose 358 MG/DL (70 - 105) H 08/13/17 13:15 Hemoglobin A1c % 7.7 % (4.0-6.0) H 08/02/17 15:37 Whole Bld Lactic Acid 1.97 mmol/L (0.60-1.99) 08/02/17 13:49 Calcium 8.8 mg/dL (8.6-10.3) 08/12/17 05:15 Magnesium 1.7 mg/dL (1.9-2.7) L 08/10/17 04:30 Iron 10 ug/dL (27-139) L 08/02/17 13:56 TIBC 135 ug/dL (250-450) L 08/02/17 13:56 Iron Saturation 7 % (15-55) L 08/02/17 13:56 Unsaturated IBC 125 ug/dL (118-369) 08/02/17 13:56 Ferritin 588 ng/mL (15-150) H 08/02/17 13:56 Total Bilirubin 0.6 mg/dL (0.3-1.0) 08/09/17 06:34 Direct Bilirubin 0.09 mg/dL (0.0-0.2) 08/02/17 13:57 AST 21 U/L (13-39) 08/09/17 06:34 ALT 12 U/L (7-52) 08/09/17 06:34 Alkaline Phosphatase 91 U/L (34-104) 08/09/17 06:34 Troponin I 1.16 ng/mL (0.01-0.05) H* D 08/04/17 06:30 B-Natriuretic Peptide 372.0 pg/mL (5.0-100.0) H 08/05/17 06:15 Total Protein 6.4 gm/dL (6.0-8.3) 08/09/17 06:34 Albumin 2.9 gm/dL (3.7-5.3) L 08/09/17 06:34 Globulin 3.5 gm/dL 08/09/17 06:34 Albumin/Globulin Ratio 0.8 (1.0-1.8) L 08/09/17 06:34 Triglycerides 132 mg/dL (<150) 08/04/17 06:30 Cholesterol 55 mg/dL (<200) 08/04/17 06:30 LDL Cholesterol Direct 16 mg/dL (75-193) L 08/04/17 06:30 HDL Cholesterol 13 mg/dL (23-92) L 08/04/17 06:30 Amylase 12 U/L (29-103) L 08/02/17 13:43 Lipase 4 U/L (11-82) L 08/02/17 13:43 TSH 3.74 uIU/ml (0.34-5.60) 08/04/17 06:30 Stool Occult Blood POSITIVE (NEGATIVE) H 08/03/17 17:50 Random Vancomycin 14.8 ug/mL (5.0-40.0) 08/09/17 06:34 Hepatitis A IgM Ab Negative (Negative) 08/08/17 08:15 Hep Bs Antigen Negative (Negative) 08/08/17 08:15 Hep B Core IgM Ab Negative (Negative) 08/08/17 08:15 Hepatitis C Antibody <0.1 s/co ratio (0.0-0.9) 08/08/17 08:15 Blood Type A POSITIVE 08/02/17 20:54 Antibody Screen POSITIVE 08/02/17 20:54 Antibody Identification Anti-K 08/02/17 20:54 Crossmatch See Detail 08/02/17 20:54 - Physical Exam Vitals and I&O: Vital Signs Temp 100.7 F 08/13/17 08:00 Pulse 93 08/13/17 11:53 Resp 16 08/13/17 08:00 BP 100/20 08/13/17 08:00 Pulse Ox 100 08/13/17 11:53 Intake & Output 08/12/17 08/13/17 08/13/17 18:59 06:59 18:59 Intake Total 253.51 1403.144 125 Output Total 0 Balance 253.51 1403.144 125 Weight (lbs) 93.894 kg Intake: Intake, IV Amount 253.51 653.144 125 Diltiazem 125 mg In 42 125 Dextrose 5% 100 ml @ 5 MG /HR 5 mls/hr IV TITR [facility] Rx#:[id number] Norepinephrine 8 mg In 153.51 461.144 Dextrose 5% 250 ml @ 0 MCG/MIN IV TITR PRN Rx#: [id number] Piperacillin Sodium/ 100 150 Tazobact 2.25 gm In Sodium Chloride 0.9% 50 ml @ 100 mls/hr IV Q6HR [facility] Rx#:[id number] Tube Feeding 600 Other 150 Output: Urine 0 Other: # Bowel Movements 0 Stool Characteristics Soft Soft Brown Active Medications: Current Medications Acetaminophen (Tylenol 650mg/20.3ml Suspension) 650 mg GT DAILY [facility] Stop: 10/03/17 08:59 Last Admin: 08/13/17 10:02 Dose: 650 mg Albuterol/Ipratropium (Duoneb Neb) 3 ml HHN Q4HRT [facility] Stop: 10/02/17 10:59 Last Admin: 08/13/17 11:53 Dose: 3 ml Ascorbic Acid (Vitamin C) 500 mg PO DAILY [facility] Stop: 10/03/17 08:59 Last Admin: 08/13/17 10:02 Dose: 500 mg Aspirin (Aspirin Chewable) 81 mg GT DAILY [facility] Stop: 10/03/17 08:59 Last Admin: 08/13/17 10:01 Dose: 81 mg Atorvastatin Calcium (Lipitor) 40 mg GT HS [facility] Stop: 10/03/17 20:59 Last Admin: 08/12/17 20:36 Dose: 40 mg Bisacodyl (Dulcolax 10 Mg Supp) 10 mg RC Q72HR PRN PRN Reason: IF MOM INEFFECTIVE Stop: 10/02/17 14:13 Chlorhexidine Gluconate (Peridex) 15 ml MM 0800,2000 [facility] Stop: 10/02/17 07:59 Last Admin: 08/13/17 08:30 Dose: 15 ml Cholecalciferol (Vitamin D3) 1,000 iu GT DAILY [facility] Stop: 10/03/17 08:59 Last Admin: 08/13/17 10:02 Dose: 1,000 iu Diltiazem HCl (Cardizem) 5 mg IVP Q4H PRN PRN Reason: INCREASE HEART RATE Stop: 10/01/17 21:59 Last Admin: 08/12/17 10:57 Dose: 5 mg Docusate Sodium (Colace) 100 mg PO DAILY [facility] Stop: 10/03/17 08:59 Last Admin: 08/13/17 09:21 Dose: Not Given Heparin Sodium (Porcine) (Heparin) 5,000 units SUBQ Q12HR [facility] Stop: 10/11/17 20:59 Last Admin: 08/13/17 10:03 Dose: 5,000 units Dopamine HCl/Dextrose (Dopamine) 400 mg in 250 mls @ 0 mls/hr IV TITR PRN; Protocol; Per Protocol PRN Reason: BP MAINTENANCE (PER PROTOCOL) Stop: 10/02/17 07:47 Piperacillin Sod/Tazobactam (Sod 2.25 gm/ Sodium Chloride) 50 mls @ 100 mls/hr IV Q6HR [facility] Stop: 10/05/17 17:59 Last Admin: 08/13/17 13:29 Dose: 100 mls/hr Diltiazem HCl 125 mg/ Dextrose 125 mls @ 5 mls/hr IV TITR [facility]; 5 MG/HR PRN Reason: Protocol Stop: 10/11/17 11:44 Last Titration: 08/13/17 09:22 Dose: Infused Norepinephrine Bitartrate 8 mg (/ Sodium Chloride) 258 mls @ 0 mls/hr IV TITR PRN; Protocol; 0 MCG/MIN PRN Reason: BP MAINTENANCE (PER PROTOCOL) Stop: 10/12/17 10:59 Last Admin: 08/13/17 09:30 Dose: 8 mcg/min, 15.48 mls/hr Insulin Aspart (Novolog Insulin Sliding Scale) 0 units SUBQ Q6HR [facility] PRN Reason: Protocol Stop: 10/02/17 00:00 Last Admin: 08/13/17 13:18 Dose: 10 units Lactobacillus Rhamnosus (Culturelle 15b) 1 each PO DAILY [facility] Stop: 10/07/17 08:59 Last Admin: 08/13/17 10:01 Dose: 1 each Lorazepam (Ativan) 1 mg IVP Q2H PRN; Protocol PRN Reason: Restlessness Stop: 10/09/17 09:44 Last Admin: 08/13/17 00:21 Dose: 1 mg Magnesium Hydroxide (Milk Of Magnesia) 30 ml GT Q72H PRN PRN Reason: NO BM FOR THREE DAYS Stop: 10/02/17 14:13 Mirtazapine (Remeron) 15 mg GT HS [facility] PRN Reason: Protocol Stop: 10/02/17 20:59 Last Admin: 08/12/17 20:36 Dose: 15 mg Miscellaneous (Clinical Monitoring) 1 ea MC PRN PRN PRN Reason: RENAL Stop: 10/05/17 11:28 Miscellaneous (Zosyn Iv Per Pharmacy) 1 ea MC PRN PRN PRN Reason: PROTOCOL Stop: 10/05/17 15:59 Miscellaneous (Probiotic Screen) 1 ea MC PRN PRN PRN Reason: PROTOCOL Stop: 10/06/17 14:14 Multivitamins/Vitamin C (Theragran) 1 tab PO DAILY [facility] Stop: 10/03/17 08:59 Last Admin: 08/13/17 10:02 Dose: 1 tab Ondansetron HCl (Zofran Odt) 4 mg PO Q6HR PRN PRN Reason: Nausea / Vomiting Stop: 10/02/17 14:13 Last Admin: 08/09/17 08:41 Dose: 4 mg Pantoprazole Sodium (Protonix) 40 mg IVP DAILY [facility] Stop: 10/02/17 08:59 Last Admin: 08/13/17 10:02 Dose: 40 mg Simethicone (Mylicon) 80 mg GT Q6H PRN PRN Reason: GAS PAIN Stop: 10/02/17 14:13 Sodium Phosphate (Fleet Enema) 118 ml RC PRN PRN PRN Reason: IF MOM/DULCOLAX INEFFECTIVE Stop: 10/02/17 14:13 Zinc Sulfate (Zinc Sulfate) 220 mg GT DAILY [facility] Stop: 10/03/17 08:59 Last Admin: 08/13/17 10:01 Dose: 220 mg General: No acute distress (scattered rhonchi) HEENT: Atraumatic, PERRLA, EOMI, Mucous membr. moist/pink Neck: Supple, Other (TRACH) Cardiovascular: Regular rate Lungs: Other (coarse rhonchi) Abdomen: Bowel sounds, Soft, Other (INTACT GT) Extremities: Edema (upper wxtrmities), Other (upper ext) Neurological: Sensation intact Skin: no Rash Psych/Mental Status: Mood NL - Procedures Procedures: Procedures Procedure Code Date BLOOD TRANSFUSION SERVICE 02452 08/02/17 EXCISION OF STOMACH, ENDO, DIAGN 4PO12MC 07/10/17 INSPECTION OF LOWER INTESTINAL TRACT, ENDO [id number] 07/10/17 PERFORMANCE OF URINARY FILTRATION, <6 HRS/DAY [id number] 07/10/17 RESPIRATORY VENTILATION, GREATER THAN 96 CONSECUTIVE HOURS [id number] 08/02/17 TRANSFUSE NONAUT RED BLOOD CELLS IN PERIPH VEIN, PERC 70561K0 08/02/17 Assessment/Plan - Assessment Assessment: 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/L UE Edema, Cellulitis Shock Sepsis RF on Vent Acute on Chronic Decomp CHF G (-) Septicemia - Plan Plan: Lab - Result Diagrams 08/04/17 06:30 08/04/17 06:30 Current Medications Acetaminophen (Tylenol 650mg/20.3ml Suspension) 650 mg GT DAILY [facility] Stop: 10/03/17 08:59 Last Admin: 08/04/17 09:18 Dose: 650 mg Albuterol/Ipratropium (Duoneb Neb) 3 ml HHN Q4HRT [facility] Stop: 10/02/17 10:59 Last Admin: 08/04/17 11:25 Dose: 3 ml Ascorbic Acid (Vitamin C) 500 mg PO DAILY [facility] Stop: 10/03/17 08:59 Last Admin: 08/04/17 09:18 Dose: 500 mg Aspirin (Aspirin Chewable) 81 mg GT DAILY [facility] Stop: 10/03/17 08:59 Last Admin: 08/04/17 09:18 Dose: 81 mg Atorvastatin Calcium (Lipitor) 40 mg GT HS [facility] PRN Reason: Protocol Stop: 10/02/17 20:59 Last Admin: 08/03/17 20:19 Dose: 40 mg Bisacodyl (Dulcolax 10 Mg Supp) 10 mg RC Q72HR PRN PRN Reason: IF MOM INEFFECTIVE Stop: 10/02/17 14:13 Bisacodyl (Dulcolax 10 Mg Supp) 10 mg RC PRN PRN PRN Reason: IF MOM INEFFECTIVE Stop: 10/02/17 14:13 Chlorhexidine Gluconate (Peridex) 15 ml MM 0800,2000 [facility] Stop: 10/02/17 07:59 Last Admin: 08/04/17 08:00 Dose: 15 ml Cholecalciferol (Vitamin D3) 1,000 iu GT DAILY [facility] Stop: 10/03/17 08:59 Last Admin: 08/04/17 09:18 Dose: 1,000 iu Diltiazem HCl (Cardizem) 5 mg IVP Q4H PRN PRN Reason: INCREASE HEART RATE Stop: 10/01/17 21:59 Last Admin: 08/03/17 01:38 Dose: 5 mg Docusate Sodium (Colace) 100 mg PO DAILY [facility] Stop: 10/03/17 08:59 Last Admin: 08/04/17 09:18 Dose: 100 mg Heparin Sodium (Porcine) (Heparin) 5,000 units HD UD [facility] Stop: 08/05/17 08:59 Last Admin: 08/04/17 09:19 Dose: Not Given Fluconazole (Diflucan) 200 mg in 100 mls @ 100 mls/hr IV Q24HR [facility] Stop: 10/02/17 14:59 Last Infusion: 08/03/17 15:40 Dose: Infused Meropenem 500 mg/ Sodium (Chloride) 100 mls @ 100 mls/hr IV Q24H [facility] Stop: 10/02/17 12:59 Last Admin: 08/04/17 13:17 Dose: 100 mls/hr Dopamine HCl/Dextrose (Dopamine) 400 mg in 250 mls @ 0 mls/hr IV TITR PRN; Protocol; Per Protocol PRN Reason: BP MAINTENANCE (PER PROTOCOL) Stop: 10/02/17 07:47 Norepinephrine Bitartrate 4 mg (/ Dextrose) 254 mls @ 0 mls/hr IV TITR PRN; Protocol; Per Protocol PRN Reason: BP MAINTENANCE (PER PROTOCOL) Stop: 10/02/17 08:31 Last Admin: 08/03/17 23:47 Dose: 4 mcg/min, 15.24 mls/hr Colistimethate Sodium 80 mg/ (Sodium Chloride) 100 mls @ 100 mls/hr IV Q36H [facility] Stop: 10/02/17 20:59 Last Infusion: 08/03/17 21:20 Dose: Infused Insulin Aspart (Novolog Insulin Sliding Scale) 0 units SUBQ Q6HR [facility] PRN Reason: Protocol Stop: 10/02/17 00:00 Last Admin: 08/04/17 11:30 Dose: 6 units Lorazepam (Ativan) 1 mg IVP Q2HR PRN; Protocol PRN Reason: Restlessness Stop: 10/01/17 21:18 Last Admin: 08/04/17 01:05 Dose: 1 mg Magnesium Hydroxide (Milk Of Magnesia) 30 ml GT Q72H PRN PRN Reason: NO BM FOR THREE DAYS Stop: 10/02/17 14:13 Mirtazapine (Remeron) 15 mg GT HS [facility] PRN Reason: Protocol Stop: 10/02/17 20:59 Last Admin: 08/03/17 20:19 Dose: 15 mg Miscellaneous (Vancomycin Iv Per Pharmacy) 1 ea PRN PRN PRN Reason: PROTOCOL Stop: 10/01/17 20:42 Miscellaneous (Zosyn Iv Per Pharmacy) 1 [facility] PRN PRN PRN Reason: PROTOCOL Stop: 10/01/17 20:42 Multivitamins/Vitamin C (Theragran) 1 tab PO DAILY [facility] Stop: 10/03/17 08:59 Last Admin: 08/04/17 09:18 Dose: 1 tab Ondansetron HCl (Zofran Odt) 4 mg PO Q6HR PRN PRN Reason: Nausea / Vomiting Stop: 10/02/17 14:13 Pantoprazole Sodium (Protonix) 40 mg IVP DAILY [facility] Stop: 10/02/17 08:59 Last Admin: 08/04/17 09:18 Dose: 40 mg Simethicone (Mylicon) 80 mg GT Q6H PRN PRN Reason: GAS PAIN Stop: 10/02/17 14:13 Sodium Phosphate (Fleet Enema) 118 ml RC PRN PRN PRN Reason: IF MOM/DULCOLAX INEFFECTIVE Stop: 10/02/17 14:13 Temazepam (Restoril) 15 mg GT HS PRN; Protocol PRN Reason: Insomnia Stop: 10/02/17 14:13 Last Admin: 08/03/17 20:19 Dose: 15 mg Zinc Sulfate (Zinc Sulfate) 220 mg GT DAILY [facility] Stop: 10/03/17 08:59 Last Admin: 08/04/17 09:18 Dose: 220 Lab - Result Diagrams 08/13/17 06:20 08/12/17 05:15 Schedule for HD tomorrow Venous & Arterial duplex scans were negative for DVT or clots CXR still showed persistent b/l effusions, CHF replace K f/u electrolytes. cbc Reccurence of shock, on levo 30 mcg Nutritional Asmnt/Malnutr-PDOC - Dietary Evaluation Malnutrition Findings (Please click <Entered> for more info): Nutritional Asmnt/Malnutrition Start: 08/05/17 15: 53 Text: Status: Complete Freq: Document 08/05/17 15:53 HEIDY (Rec: 08/05/17 16:19 HEIDY [email or web address]) Nutritional Asmnt/Malnutrition Patient General Information Nutritional Screening High Risk Diagnosis sepsis, respiratory failure, ESRD Pertinent Medical Hx/Surgical Hx ESRD on HD, respiratory failure with tracheostomy, dysphagia, a fib, anemia, HTN, GERD Subjective Information Pt on vent, not able to interview. Pt was on TF Novosource Renal 30ml/hr continuous, NPO today for surgery. Pt has dialysis ordred per nurse note. Current Diet Order/ Nutrition Support NPO on 08/05 Pertinent Medications vit C, vit D3, colace, novolog , remeron, theragran, protonix , zinc Pertinent Labs 08/05 Na 134, K 3.6, Cl 102, BUN 77, Cr 4.2, Glucose 216, POC 224-233 08/02 A1c 7.7 Nutritional Hx/Data Height 1.6 m Height (Calculated Centimeters) 160.0 Current Weight (lbs) 87.543 kg Weight (Calculated Kilograms) 87.5 Weight (Calculated Grams) 19546.3 [place] Body Weight 115 Body Mass Index (BMI) 34.2 Weight Status Obese GI Symptoms GI Symptoms None Last BM 08/04 Difficult in: None Skin Integrity/Comment: reddened to left/right inner thigh, right lateral index finger, right/left arm; skin tear to left abdominal fold; pressure area to coccy/sacral Estimated Nutritional Goals BEE in Kcals: Adj wt of IBW Calories/Kcals/Kg 30-35 adj wt 61kg Kcals Calculated 8685-5532 Protein: Adj wt of IBW Protein g/k.2-1.4 Protein Calculated 73-85 Fluid: ml 1830-2135ml (1ml/kcal) Nutritional Problem 1. Problem Problem altered nutrition related lab values Etiology hx of ESRD, endocrine dysfunction Signs/Symptoms: BUN 77, Cr 4.2, Glucose 216, POC 224-233, A1c 7.7 Malnutrition Alert Protein-Calorie Malnutrition N/A Is there a minimum of two criteria No selected? Query Text:Check all the applicable criteria. A minimum of two criteria are recommended for diagnosis of either severe or non-severe malnutrition. Intervention/Recommendation Comments 1. Resume TF Novosource Renal 30ml/hr continuous as ordered. increase to goal rate of 40ml /hr continuous as tolerated. This will provide 1920kcal, 87g protein and 688ml free water, meeting 100% of nutritional needs 2. Monitor TF rate, tolerance, wt weekly, skin integrity and labs 3. F/U as high risk in 2-3 days, 08/07-08/08 Expected Outcomes/Goals Expected Outcomes/Goals 1. Pt to meet at least 75% of nutritional needs via nutrition support with tolerance 2. Wt stability, skin to remain intact, labs to approach WNL.
[2017-08-14] MEDS: Albuterol/Ipratropium Neb 3 ML AERS HHN SCH ×6 (03:06→22:31)
[2017-08-14] MEDS: Piperacillin/Tazobact 2.25 gm in 0.9% NS 50 ML IV SCH (05:28)
[2017-08-14] MEDS: INSULIN ASPART SLIDING SCALE 100 UNITS/ML UNIT SUBQ SCH ×3 (05:54→19:05)
[2017-08-14] MEDS: Chlorhexidine Gluconate 0.12% 15mL Mouthwash MM SCH ×2 (08:00→21:35)
--- NOTE | 2017-08-14 11:31 | General Progress Note ---
Subjective - Review of Systems Events since last encounter: patient on vent in no acute distress Subjective: still on levophed Objective - Results Result Diagrams: 08/13/17 06:20 08/12/17 05:15 Recent Labs: Laboratory Last Values WBC 17.4 Th/cmm (4.8-10.8) H 08/13/17 06:20 RBC 2.42 Mil/cmm (3.80-5.20) L 08/13/17 06:20 Hgb 8.4 gm/dL (12-16) L 08/13/17 06:20 Hct 23.3 % (41.0-60) L 08/13/17 06:20 MCV 96.3 fl (81-100) 08/13/17 06:20 MCH 34.7 pg (27.0-31.0) H 08/13/17 06:20 MCHC Differential 36.0 pg (28.0-36.0) 08/13/17 06:20 RDW 16.9 % (11.5-20.0) 08/13/17 06:20 Plt Count 328 Th/cmm (150-400) 08/13/17 06:20 MPV 11.6 fl 08/13/17 06:20 Neutrophils % 84.5 % (40.0-80.0) H 08/13/17 06:20 Band Neutrophils % 4 % (0-10) 08/11/17 04:45 Lymphocytes % 4.7 % (20.0-50.0) L 08/13/17 06:20 Monocytes % 9.0 % (2.0-10.0) 08/13/17 06:20 Eosinophils % 1.8 % (0.0-5.0) 08/13/17 06:20 Basophils % 0.0 % (0.0-2.0) 08/13/17 06:20 Neutrophils (Manual) 81 % (40-80) H 08/11/17 04:45 Lymphocytes 8 % (20-50) L 08/11/17 04:45 Monocytes 3 % (2-10) 08/11/17 04:45 Eosinophils 4 % (0-5) 08/11/17 04:45 Basophils 1 % (0-3) 08/07/17 05:45 Hypochromia 1+ 08/02/17 15:37 Platelet Estimate ADEQUATE (NORMAL) 08/11/17 04:45 Platelet Morphology NORMAL (NORMAL) 08/02/17 15:37 Anisocytosis 1+ 08/07/17 05:45 Crenated Cell 2+ 08/02/17 15:37 RBC Morph Micro Appear ABNORMAL (NORMAL) 08/02/17 15:37 PT 12.9 SECONDS (9.5-11.5) H 08/02/17 13:58 INR 1.23 (0.5-1.4) 08/02/17 13:58 PTT (Actin FS) 33.6 SECONDS (26.0-38.0) 08/02/17 13:58 Specimen Source Arterial 08/03/17 08:58 Sample Site Right Radial 08/03/17 08:58 pH 7.42 (7.35-7.45) 08/03/17 08:58 pCO2 37.0 mmHg (35.0-45.0) 08/03/17 08:58 pO2 204.0 mmHg (80.0-100.0) H 08/03/17 08:58 HCO3 24.8 mEq/L (20.0-26.0) 08/03/17 08:58 Base Excess -0.2 mEq/L (-3.0-3.0) 08/03/17 08:58 O2 Saturation 100.0 % (92.0-100.0) 08/03/17 08:58 Rhett Test Positive 08/03/17 08:58 Vent Rate 12 08/03/17 08:58 Inspired O2 60 08/03/17 08:58 Tidal Volume 450 08/03/17 08:58 PEEP 5 08/03/17 08:58 Pressure (ins/psv/peep) NA 08/03/17 08:58 Critical Value LZHANG 08/03/17 08:58 Sodium 130 mEq/L (136-145) L 08/12/17 05:15 Potassium 3.9 mEq/L (3.5-5.1) 08/12/17 05:15 Chloride 94 mEq/L (98-107) L 08/12/17 05:15 Carbon Dioxide 25.5 mEq/L (21.0-31.0) 08/12/17 05:15 Anion Gap 14.4 (7.0-16.0) 08/12/17 05:15 BUN 62 mg/dL (7-25) H 08/12/17 05:15 Creatinine 3.4 mg/dL (0.6-1.2) H 08/12/17 05:15 Est GFR ( Amer) TNP 08/12/17 05:15 Est GFR (Non-Af Amer) TNP 08/12/17 05:15 BUN/Creatinine Ratio 18.2 08/12/17 05:15 Glucose 349 mg/dL (70-105) H 08/12/17 05:15 POC Glucose 333 MG/DL (70 - 105) H 08/13/17 23:44 Hemoglobin A1c % 7.7 % (4.0-6.0) H 08/02/17 15:37 Whole Bld Lactic Acid 1.97 mmol/L (0.60-1.99) 08/02/17 13:49 Calcium 8.8 mg/dL (8.6-10.3) 08/12/17 05:15 Magnesium 1.7 mg/dL (1.9-2.7) L 08/10/17 04:30 Iron 10 ug/dL (27-139) L 08/02/17 13:56 TIBC 135 ug/dL (250-450) L 08/02/17 13:56 Iron Saturation 7 % (15-55) L 08/02/17 13:56 Unsaturated IBC 125 ug/dL (118-369) 08/02/17 13:56 Ferritin 588 ng/mL (15-150) H 08/02/17 13:56 Total Bilirubin 0.6 mg/dL (0.3-1.0) 08/09/17 06:34 Direct Bilirubin 0.09 mg/dL (0.0-0.2) 08/02/17 13:57 AST 21 U/L (13-39) 08/09/17 06:34 ALT 12 U/L (7-52) 08/09/17 06:34 Alkaline Phosphatase 91 U/L (34-104) 08/09/17 06:34 Troponin I 1.16 ng/mL (0.01-0.05) H* D 08/04/17 06:30 B-Natriuretic Peptide 372.0 pg/mL (5.0-100.0) H 08/05/17 06:15 Total Protein 6.4 gm/dL (6.0-8.3) 08/09/17 06:34 Albumin 2.9 gm/dL (3.7-5.3) L 08/09/17 06:34 Globulin 3.5 gm/dL 08/09/17 06:34 Albumin/Globulin Ratio 0.8 (1.0-1.8) L 08/09/17 06:34 Triglycerides 132 mg/dL (<150) 08/04/17 06:30 Cholesterol 55 mg/dL (<200) 08/04/17 06:30 LDL Cholesterol Direct 16 mg/dL (75-193) L 08/04/17 06:30 HDL Cholesterol 13 mg/dL (23-92) L 08/04/17 06:30 Amylase 12 U/L (29-103) L 08/02/17 13:43 Lipase 4 U/L (11-82) L 08/02/17 13:43 TSH 3.74 uIU/ml (0.34-5.60) 08/04/17 06:30 Stool Occult Blood POSITIVE (NEGATIVE) H 08/03/17 17:50 Random Vancomycin 14.8 ug/mL (5.0-40.0) 08/09/17 06:34 Hepatitis A IgM Ab Negative (Negative) 08/08/17 08:15 Hep Bs Antigen Negative (Negative) 08/08/17 08:15 Hep B Core IgM Ab Negative (Negative) 08/08/17 08:15 Hepatitis C Antibody <0.1 s/co ratio (0.0-0.9) 08/08/17 08:15 Blood Type A POSITIVE 08/02/17 20:54 Antibody Screen POSITIVE 08/02/17 20:54 Antibody Identification Anti-K 08/02/17 20:54 Crossmatch See Detail 08/02/17 20:54 - Physical Exam Vitals and I&O: Vital Signs Temp 98.4 F 08/14/17 06:00 Pulse 116 08/14/17 07:21 Resp 18 08/14/17 06:55 BP 146/43 08/14/17 06:56 Pulse Ox 100 08/14/17 07:21 Intake & Output 08/13/17 08/14/17 08/14/17 18:59 06:59 18:59 Intake Total 866.495 8868.170 Output Total 0 Balance 938.039 9759.170 Weight (lbs) 94.914 kg Intake: Intake, IV Amount 315.042 710.170 Diltiazem 125 mg In 125 Dextrose 5% 100 ml @ 5 MG /HR 5 mls/hr IV TITR [facility] Rx#:[id number] Norepinephrine 8 mg In 90.042 610.170 Sodium Chloride 0.9% 250 ml @ 0 MCG/MIN IV TITR PRN Rx#:[id number] Piperacillin Sodium/ 100 100 Tazobact 2.25 gm In Sodium Chloride 0.9% 50 ml @ 100 mls/hr IV Q6HR [facility] Rx#:[id number] Oral 0 Tube Feeding 1650 Other 150 Output: Urine 0 Other: # Bowel Movements 1 Stool Characteristics Soft Liquid Brown Black Active Medications: Current Medications Acetaminophen (Tylenol 650mg/20.3ml Suspension) 650 mg GT DAILY [facility] Stop: 10/03/17 08:59 Last Admin: 08/14/17 11:05 Dose: Not Given Albuterol/Ipratropium (Duoneb Neb) 3 ml HHN Q4HRT [facility] Stop: 10/02/17 10:59 Last Admin: 08/14/17 07:21 Dose: 3 ml Ascorbic Acid (Vitamin C) 500 mg PO DAILY [facility] Stop: 10/03/17 08:59 Last Admin: 08/14/17 11:06 Dose: Not Given Aspirin (Aspirin Chewable) 81 mg GT DAILY [facility] Stop: 10/03/17 08:59 Last Admin: 08/13/17 10:01 Dose: 81 mg Atorvastatin Calcium (Lipitor) 40 mg GT HS [facility] Stop: 10/03/17 20:59 Last Admin: 08/13/17 20:24 Dose: 40 mg Bisacodyl (Dulcolax 10 Mg Supp) 10 mg RC Q72HR PRN PRN Reason: IF MOM INEFFECTIVE Stop: 10/02/17 14:13 Chlorhexidine Gluconate (Peridex) 15 ml MM 0800,1999 [facility] Stop: 10/02/17 07:59 Last Admin: 08/14/17 08:00 Dose: 15 ml Cholecalciferol (Vitamin D3) 1,000 iu GT DAILY [facility] Stop: 10/03/17 08:59 Last Admin: 08/14/17 11:06 Dose: Not Given Diltiazem HCl (Cardizem) 5 mg IVP Q4H PRN PRN Reason: INCREASE HEART RATE Stop: 10/01/17 21:59 Last Admin: 08/12/17 10:57 Dose: 5 mg Docusate Sodium (Colace) 100 mg PO DAILY [facility] Stop: 10/03/17 08:59 Last Admin: 08/14/17 11:07 Dose: Not Given Heparin Sodium (Porcine) (Heparin) 5,000 units SUBQ Q12HR [facility] Stop: 10/11/17 20:59 Last Admin: 08/14/17 11:07 Dose: 5,000 units Dopamine HCl/Dextrose (Dopamine) 400 mg in 250 mls @ 0 mls/hr IV TITR PRN; Protocol; Per Protocol PRN Reason: BP MAINTENANCE (PER PROTOCOL) Stop: 10/02/17 07:47 Diltiazem HCl 125 mg/ Dextrose 125 mls @ 5 mls/hr IV TITR [facility]; 5 MG/HR PRN Reason: Protocol Stop: 10/11/17 11:44 Last Titration: 08/13/17 09:22 Dose: Infused Norepinephrine Bitartrate 8 mg (/ Sodium Chloride) 258 mls @ 0 mls/hr IV TITR PRN; Protocol; 0 MCG/MIN PRN Reason: BP MAINTENANCE (PER PROTOCOL) Stop: 10/12/17 10:59 Last Titration: 08/14/17 06:53 Dose: 10 mcg/min, 19.35 mls/hr Insulin Aspart (Novolog Insulin Sliding Scale) 0 units SUBQ Q6HR [facility] PRN Reason: Protocol Stop: 10/02/17 00:00 Last Admin: 08/14/17 05:54 Dose: 6 units Lactobacillus Rhamnosus (Culturelle 15b) 1 each PO DAILY [facility] Stop: 10/07/17 08:59 Last Admin: 08/13/17 10:01 Dose: 1 each Lorazepam (Ativan) 1 mg IVP Q2H PRN; Protocol PRN Reason: Restlessness Stop: 10/09/17 09:44 Last Admin: 08/14/17 09:11 Dose: 1 mg Magnesium Hydroxide (Milk Of Magnesia) 30 ml GT Q72H PRN PRN Reason: NO BM FOR THREE DAYS Stop: 10/02/17 14:13 Mirtazapine (Remeron) 15 mg GT HS [facility] PRN Reason: Protocol Stop: 10/02/17 20:59 Last Admin: 08/13/17 20:25 Dose: 15 mg Miscellaneous (Clinical Monitoring) 1 ea PRN PRN PRN Reason: RENAL Stop: 10/05/17 11:28 Miscellaneous (Zosyn Iv Per Pharmacy) 1 ea PRN PRN PRN Reason: PROTOCOL Stop: 10/05/17 15:59 Miscellaneous (Probiotic Screen) 1 ea PRN PRN PRN Reason: PROTOCOL Stop: 10/06/17 14:14 Multivitamins/Vitamin C (Theragran) 1 tab PO DAILY [facility] Stop: 10/03/17 08:59 Last Admin: 08/13/17 10:02 Dose: 1 tab Ondansetron HCl (Zofran Odt) 4 mg PO Q6HR PRN PRN Reason: Nausea / Vomiting Stop: 10/02/17 14:13 Last Admin: 08/09/17 08:41 Dose: 4 mg Pantoprazole Sodium (Protonix) 40 mg IVP DAILY [facility] Stop: 10/02/17 08:59 Last Admin: 08/13/17 10:02 Dose: 40 mg Simethicone (Mylicon) 80 mg GT Q6H PRN PRN Reason: GAS PAIN Stop: 10/02/17 14:13 Sodium Phosphate (Fleet Enema) 118 ml RC PRN PRN PRN Reason: IF MOM/DULCOLAX INEFFECTIVE Stop: 10/02/17 14:13 Zinc Sulfate (Zinc Sulfate) 220 mg GT DAILY [facility] Stop: 10/03/17 08:59 Last Admin: 08/13/17 10:01 Dose: 220 mg General: No acute distress (scattered rhonchi) HEENT: Atraumatic, PERRLA, EOMI, Mucous membr. moist/pink Neck: Supple, Other (TRACH) Cardiovascular: Regular rate Lungs: Other (coarse rhonchi) Abdomen: Bowel sounds, Soft, Other (INTACT GT) Extremities: Edema (upper wxtrmities), Other (upper ext) Neurological: Sensation intact Skin: no Rash Psych/Mental Status: Mood NL - Procedures Procedures: Procedures Procedure Code Date BLOOD TRANSFUSION SERVICE 77245 08/02/17 EXCISION OF STOMACH, ENDO, DIAGN [id number] 07/10/17 INSPECTION OF LOWER INTESTINAL TRACT, ENDO [id number] 07/10/17 PERFORMANCE OF URINARY FILTRATION, <6 HRS/DAY [id number] 07/10/17 RESPIRATORY VENTILATION, GREATER THAN 96 CONSECUTIVE HOURS [id number] 08/02/17 TRANSFUSE NONAUT RED BLOOD CELLS IN PERIPH VEIN, PERC 61287T9 08/02/17 Nutritional Asmnt/Malnutr-PDOC - Dietary Evaluation Malnutrition Findings (Please click <Entered> for more info): Nutritional Asmnt/Malnutrition Start: 08/05/17 15: 53 Text: Status: Complete Freq: Document 08/05/17 15:53 NAVIN (Rec: 08/05/17 16:19 LCHENG [id number]) Nutritional Asmnt/Malnutrition Patient General Information Nutritional Screening High Risk Diagnosis sepsis, respiratory failure, ESRD Pertinent Medical Hx/Surgical Hx ESRD on HD, respiratory failure with tracheostomy, dysphagia, a fib, anemia, HTN, GERD Subjective Information Pt on vent, not able to interview. Pt was on TF Novosource Renal 30ml/hr continuous, NPO today for surgery. Pt has dialysis ordred per nurse note. Current Diet Order/ Nutrition Support NPO on 08/05 Pertinent Medications vit C, vit D3, colace, novolog , remeron, theragran, protonix , zinc Pertinent Labs 08/05 Na 134, K 3.6, Cl 102, BUN 77, Cr 4.2, Glucose 216, POC 224-233 08/02 A1c 7.7 Nutritional Hx/Data Height 1.6 m Height (Calculated Centimeters) 160.0 Current Weight (lbs) 87.543 kg Weight (Calculated Kilograms) 87.5 Weight (Calculated Grams) 46373.3 [place] Body Weight 115 Body Mass Index (BMI) 34.2 Weight Status Obese GI Symptoms GI Symptoms None Last BM 08/04 Difficult in: None Skin Integrity/Comment: reddened to left/right inner thigh, right lateral index finger, right/left arm; skin tear to left abdominal fold; pressure area to coccy/sacral Estimated Nutritional Goals BEE in Kcals: Adj wt of IBW Calories/Kcals/Kg 30-35 adj wt 61kg Kcals Calculated 8045-4470 Protein: Adj wt of IBW Protein g/k.2-1.4 Protein Calculated 73-85 Fluid: ml 1830-2135ml (1ml/kcal) Nutritional Problem 1. Problem Problem altered nutrition related lab values Etiology hx of ESRD, endocrine dysfunction Signs/Symptoms: BUN 77, Cr 4.2, Glucose 216, POC 224-233, A1c 7.7 Malnutrition Alert Protein-Calorie Malnutrition N/A Is there a minimum of two criteria No selected? Query Text:Check all the applicable criteria. A minimum of two criteria are recommended for diagnosis of either severe or non-severe malnutrition. Intervention/Recommendation Comments 1. Resume TF Novosource Renal 30ml/hr continuous as ordered. increase to goal rate of 40ml /hr continuous as tolerated. This will provide 1920kcal, 87g protein and 688ml free water, meeting 100% of nutritional needs 2. Monitor TF rate, tolerance, wt weekly, skin integrity and labs 3. F/U as high risk in 2-3 days, 08/07-3 Expected Outcomes/Goals Expected Outcomes/Goals 1. Pt to meet at least 75% of nutritional needs via nutrition support with tolerance 2. Wt stability, skin to remain intact, labs to approach WNL.
--- NOTE | 2017-08-14 12:46 | General Progress Note ---
Subjective - Review of Systems Service Date: 08/14/17 Subjective: more agitated, vocal today, on vent Objective - Results Result Diagrams: 08/13/17 06:20 08/12/17 05:15 Recent Labs: Laboratory Last Values WBC 17.4 Th/cmm (4.8-10.8) H 08/13/17 06:20 RBC 2.42 Mil/cmm (3.80-5.20) L 08/13/17 06:20 Hgb 8.4 gm/dL (12-16) L 08/13/17 06:20 Hct 23.3 % (41.0-60) L 08/13/17 06:20 MCV 96.3 fl (81-100) 08/13/17 06:20 MCH 34.7 pg (27.0-31.0) H 08/13/17 06:20 MCHC Differential 36.0 pg (28.0-36.0) 08/13/17 06:20 RDW 16.9 % (11.5-20.0) 08/13/17 06:20 Plt Count 328 Th/cmm (150-400) 08/13/17 06:20 MPV 11.6 fl 08/13/17 06:20 Neutrophils % 84.5 % (40.0-80.0) H 08/13/17 06:20 Band Neutrophils % 4 % (0-10) 08/11/17 04:45 Lymphocytes % 4.7 % (20.0-50.0) L 08/13/17 06:20 Monocytes % 9.0 % (2.0-10.0) 08/13/17 06:20 Eosinophils % 1.8 % (0.0-5.0) 08/13/17 06:20 Basophils % 0.0 % (0.0-2.0) 08/13/17 06:20 Neutrophils (Manual) 81 % (40-80) H 08/11/17 04:45 Lymphocytes 8 % (20-50) L 08/11/17 04:45 Monocytes 3 % (2-10) 08/11/17 04:45 Eosinophils 4 % (0-5) 08/11/17 04:45 Basophils 1 % (0-3) 08/07/17 05:45 Hypochromia 1+ 08/02/17 15:37 Platelet Estimate ADEQUATE (NORMAL) 08/11/17 04:45 Platelet Morphology NORMAL (NORMAL) 08/02/17 15:37 Anisocytosis 1+ 08/07/17 05:45 Crenated Cell 2+ 08/02/17 15:37 RBC Morph Micro Appear ABNORMAL (NORMAL) 08/02/17 15:37 PT 12.9 SECONDS (9.5-11.5) H 08/02/17 13:58 INR 1.23 (0.5-1.4) 08/02/17 13:58 PTT (Actin FS) 33.6 SECONDS (26.0-38.0) 08/02/17 13:58 Specimen Source Arterial 08/03/17 08:58 Sample Site Right Radial 08/03/17 08:58 pH 7.42 (7.35-7.45) 08/03/17 08:58 pCO2 37.0 mmHg (35.0-45.0) 08/03/17 08:58 pO2 204.0 mmHg (80.0-100.0) H 08/03/17 08:58 HCO3 24.8 mEq/L (20.0-26.0) 08/03/17 08:58 Base Excess -0.2 mEq/L (-3.0-3.0) 08/03/17 08:58 O2 Saturation 100.0 % (92.0-100.0) 08/03/17 08:58 Rhett Test Positive 08/03/17 08:58 Vent Rate 12 08/03/17 08:58 Inspired O2 60 08/03/17 08:58 Tidal Volume 450 08/03/17 08:58 PEEP 5 08/03/17 08:58 Pressure (ins/psv/peep) NA 08/03/17 08:58 Critical Value LZHANG 08/03/17 08:58 Sodium 130 mEq/L (136-145) L 08/12/17 05:15 Potassium 3.9 mEq/L (3.5-5.1) 08/12/17 05:15 Chloride 94 mEq/L (98-107) L 08/12/17 05:15 Carbon Dioxide 25.5 mEq/L (21.0-31.0) 08/12/17 05:15 Anion Gap 14.4 (7.0-16.0) 08/12/17 05:15 BUN 62 mg/dL (7-25) H 08/12/17 05:15 Creatinine 3.4 mg/dL (0.6-1.2) H 08/12/17 05:15 Est GFR ( Amer) TNP 08/12/17 05:15 Est GFR (Non-Af Amer) TNP 08/12/17 05:15 BUN/Creatinine Ratio 18.2 08/12/17 05:15 Glucose 349 mg/dL (70-105) H 08/12/17 05:15 POC Glucose 333 MG/DL (70 - 105) H 08/13/17 23:44 Hemoglobin A1c % 7.7 % (4.0-6.0) H 08/02/17 15:37 Whole Bld Lactic Acid 1.97 mmol/L (0.60-1.99) 08/02/17 13:49 Calcium 8.8 mg/dL (8.6-10.3) 08/12/17 05:15 Magnesium 1.7 mg/dL (1.9-2.7) L 08/10/17 04:30 Iron 10 ug/dL (27-139) L 08/02/17 13:56 TIBC 135 ug/dL (250-450) L 08/02/17 13:56 Iron Saturation 7 % (15-55) L 08/02/17 13:56 Unsaturated IBC 125 ug/dL (118-369) 08/02/17 13:56 Ferritin 588 ng/mL (15-150) H 08/02/17 13:56 Total Bilirubin 0.6 mg/dL (0.3-1.0) 08/09/17 06:34 Direct Bilirubin 0.09 mg/dL (0.0-0.2) 08/02/17 13:57 AST 21 U/L (13-39) 08/09/17 06:34 ALT 12 U/L (7-52) 08/09/17 06:34 Alkaline Phosphatase 91 U/L (34-104) 08/09/17 06:34 Troponin I 1.16 ng/mL (0.01-0.05) H* D 08/04/17 06:30 B-Natriuretic Peptide 372.0 pg/mL (5.0-100.0) H 08/05/17 06:15 Total Protein 6.4 gm/dL (6.0-8.3) 08/09/17 06:34 Albumin 2.9 gm/dL (3.7-5.3) L 08/09/17 06:34 Globulin 3.5 gm/dL 08/09/17 06:34 Albumin/Globulin Ratio 0.8 (1.0-1.8) L 08/09/17 06:34 Triglycerides 132 mg/dL (<150) 08/04/17 06:30 Cholesterol 55 mg/dL (<200) 08/04/17 06:30 LDL Cholesterol Direct 16 mg/dL (75-193) L 08/04/17 06:30 HDL Cholesterol 13 mg/dL (23-92) L 08/04/17 06:30 Amylase 12 U/L (29-103) L 08/02/17 13:43 Lipase 4 U/L (11-82) L 08/02/17 13:43 TSH 3.74 uIU/ml (0.34-5.60) 08/04/17 06:30 Stool Occult Blood POSITIVE (NEGATIVE) H 08/03/17 17:50 Random Vancomycin 14.8 ug/mL (5.0-40.0) 08/09/17 06:34 Hepatitis A IgM Ab Negative (Negative) 08/08/17 08:15 Hep Bs Antigen Negative (Negative) 08/08/17 08:15 Hep B Core IgM Ab Negative (Negative) 08/08/17 08:15 Hepatitis C Antibody <0.1 s/co ratio (0.0-0.9) 08/08/17 08:15 Blood Type A POSITIVE 08/02/17 20:54 Antibody Screen POSITIVE 08/02/17 20:54 Antibody Identification Anti-K 08/02/17 20:54 Crossmatch See Detail 08/02/17 20:54 - Physical Exam Vitals and I&O: Vital Signs Temp 98.4 F 08/14/17 06:00 Pulse 116 08/14/17 07:21 Resp 18 08/14/17 06:55 BP 146/43 08/14/17 06:56 Pulse Ox 100 08/14/17 07:21 Intake & Output 08/13/17 08/14/17 08/14/17 18:59 06:59 18:59 Intake Total 995.333 1049.170 Output Total 0 Balance 655.250 8541.170 Weight (lbs) 94.914 kg Intake: Intake, IV Amount 315.042 710.170 Diltiazem 125 mg In 125 Dextrose 5% 100 ml @ 5 MG /HR 5 mls/hr IV TITR [facility] Rx#:[id number] Norepinephrine 8 mg In 90.042 610.170 Sodium Chloride 0.9% 250 ml @ 0 MCG/MIN IV TITR PRN Rx#:[id number] Piperacillin Sodium/ 100 100 Tazobact 2.25 gm In Sodium Chloride 0.9% 50 ml @ 100 mls/hr IV Q6HR [facility] Rx#:[id number] Oral 0 Tube Feeding 1650 Other 150 Output: Urine 0 Other: # Bowel Movements 1 Stool Characteristics Soft Liquid Brown Black Active Medications: Current Medications Acetaminophen (Tylenol 650mg/20.3ml Suspension) 650 mg GT DAILY [facility] Stop: 10/03/17 08:59 Last Admin: 08/14/17 11:05 Dose: Not Given Albuterol/Ipratropium (Duoneb Neb) 3 ml HHN Q4HRT [facility] Stop: 10/02/17 10:59 Last Admin: 08/14/17 07:21 Dose: 3 ml Ascorbic Acid (Vitamin C) 500 mg PO DAILY [facility] Stop: 10/03/17 08:59 Last Admin: 08/14/17 11:06 Dose: Not Given Aspirin (Aspirin Chewable) 81 mg GT DAILY [facility] Stop: 10/03/17 08:59 Last Admin: 08/13/17 10:01 Dose: 81 mg Atorvastatin Calcium (Lipitor) 40 mg GT HS [facility] Stop: 10/03/17 20:59 Last Admin: 08/13/17 20:24 Dose: 40 mg Bisacodyl (Dulcolax 10 Mg Supp) 10 mg RC Q72HR PRN PRN Reason: IF MOM INEFFECTIVE Stop: 10/02/17 14:13 Chlorhexidine Gluconate (Peridex) 15 ml MM 0800,1999 [facility] Stop: 10/02/17 07:59 Last Admin: 08/14/17 08:00 Dose: 15 ml Cholecalciferol (Vitamin D3) 1,000 iu GT DAILY [facility] Stop: 10/03/17 08:59 Last Admin: 08/14/17 11:06 Dose: Not Given Diltiazem HCl (Cardizem) 5 mg IVP Q4H PRN PRN Reason: INCREASE HEART RATE Stop: 10/01/17 21:59 Last Admin: 08/12/17 10:57 Dose: 5 mg Docusate Sodium (Colace) 100 mg PO DAILY [facility] Stop: 10/03/17 08:59 Last Admin: 08/14/17 11:07 Dose: Not Given Heparin Sodium (Porcine) (Heparin) 5,000 units SUBQ Q12HR [facility] Stop: 10/11/17 20:59 Last Admin: 08/14/17 11:07 Dose: 5,000 units Dopamine HCl/Dextrose (Dopamine) 400 mg in 250 mls @ 0 mls/hr IV TITR PRN; Protocol; Per Protocol PRN Reason: BP MAINTENANCE (PER PROTOCOL) Stop: 10/02/17 07:47 Diltiazem HCl 125 mg/ Dextrose 125 mls @ 5 mls/hr IV TITR [facility]OU[facility]IA; 5 MG/HR PRN Reason: Protocol Stop: 10/11/17 11:44 Last Titration: 08/13/17 09:22 Dose: Infused Norepinephrine Bitartrate 8 mg (/ Sodium Chloride) 258 mls @ 0 mls/hr IV TITR PRN; Protocol; 0 MCG/MIN PRN Reason: BP MAINTENANCE (PER PROTOCOL) Stop: 10/12/17 10:59 Last Titration: 08/14/17 06:53 Dose: 10 mcg/min, 19.35 mls/hr Insulin Aspart (Novolog Insulin Sliding Scale) 0 units SUBQ Q6HR [facility] PRN Reason: Protocol Stop: 10/02/17 00:00 Last Admin: 08/14/17 05:54 Dose: 6 units Lactobacillus Rhamnosus (Culturelle 15b) 1 each PO DAILY [facility] Stop: 10/07/17 08:59 Last Admin: 08/13/17 10:01 Dose: 1 each Lorazepam (Ativan) 1 mg IVP Q2H PRN; Protocol PRN Reason: Restlessness Stop: 10/09/17 09:44 Last Admin: 08/14/17 09:11 Dose: 1 mg Magnesium Hydroxide (Milk Of Magnesia) 30 ml GT Q72H PRN PRN Reason: NO BM FOR THREE DAYS Stop: 10/02/17 14:13 Mirtazapine (Remeron) 15 mg GT HS [facility] PRN Reason: Protocol Stop: 10/02/17 20:59 Last Admin: 08/13/17 20:25 Dose: 15 mg Miscellaneous (Clinical Monitoring) 1 ea PRN PRN PRN Reason: RENAL Stop: 10/05/17 11:28 Miscellaneous (Zosyn Iv Per Pharmacy) 1 ea PRN PRN PRN Reason: PROTOCOL Stop: 10/05/17 15:59 Miscellaneous (Probiotic Screen) 1 ea PRN PRN PRN Reason: PROTOCOL Stop: 10/06/17 14:14 Multivitamins/Vitamin C (Theragran) 1 tab PO DAILY [facility] Stop: 10/03/17 08:59 Last Admin: 08/13/17 10:02 Dose: 1 tab Ondansetron HCl (Zofran Odt) 4 mg PO Q6HR PRN PRN Reason: Nausea / Vomiting Stop: 10/02/17 14:13 Last Admin: 08/09/17 08:41 Dose: 4 mg Pantoprazole Sodium (Protonix) 40 mg IVP DAILY [facility] Stop: 10/02/17 08:59 Last Admin: 08/13/17 10:02 Dose: 40 mg Simethicone (Mylicon) 80 mg GT Q6H PRN PRN Reason: GAS PAIN Stop: 10/02/17 14:13 Sodium Phosphate (Fleet Enema) 118 ml RC PRN PRN PRN Reason: IF MOM/DULCOLAX INEFFECTIVE Stop: 10/02/17 14:13 Zinc Sulfate (Zinc Sulfate) 220 mg GT DAILY [facility] Stop: 10/03/17 08:59 Last Admin: 08/13/17 10:01 Dose: 220 mg General: Alert, No acute distress (scattered rhonchi) HEENT: Atraumatic, PERRLA, EOMI, Mucous membr. moist/pink Neck: Supple, Other (TRACH) Cardiovascular: Regular rate Lungs: Other (coarse rhonchi) Abdomen: Bowel sounds, Soft, Other (INTACT GT) Extremities: Edema (upper wxtrmities), Other (upper ext) Neurological: Sensation intact Skin: no Rash Psych/Mental Status: Mood NL - Procedures Procedures: Procedures Procedure Code Date BLOOD TRANSFUSION SERVICE 50025 08/02/17 EXCISION OF STOMACH, ENDO, DIAGN [id number] 07/10/17 INSPECTION OF LOWER INTESTINAL TRACT, ENDO [id number] 07/10/17 PERFORMANCE OF URINARY FILTRATION, <6 HRS/DAY [id number] 07/10/17 RESPIRATORY VENTILATION, GREATER THAN 96 CONSECUTIVE HOURS [id number] 08/02/17 TRANSFUSE NONAUT RED BLOOD CELLS IN PERIPH VEIN, PERC 34005L9 08/02/17 Assessment/Plan - Assessment Assessment: 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/L UE Edema, Cellulitis Shock Sepsis RF on Vent Acute on Chronic Decomp CHF G (-) Septicemia - Plan Plan: Lab - Result Diagrams 08/04/17 06:30 08/04/17 06:30 Current Medications Acetaminophen (Tylenol 650mg/20.3ml Suspension) 650 mg GT DAILY [facility] Stop: 10/03/17 08:59 Last Admin: 08/04/17 09:18 Dose: 650 mg Albuterol/Ipratropium (Duoneb Neb) 3 ml HHN Q4HRT [facility] Stop: 10/02/17 10:59 Last Admin: 08/04/17 11:25 Dose: 3 ml Ascorbic Acid (Vitamin C) 500 mg PO DAILY [facility] Stop: 10/03/17 08:59 Last Admin: 08/04/17 09:18 Dose: 500 mg Aspirin (Aspirin Chewable) 81 mg GT DAILY [facility] Stop: 10/03/17 08:59 Last Admin: 08/04/17 09:18 Dose: 81 mg Atorvastatin Calcium (Lipitor) 40 mg GT HS [facility] PRN Reason: Protocol Stop: 10/02/17 20:59 Last Admin: 08/03/17 20:19 Dose: 40 mg Bisacodyl (Dulcolax 10 Mg Supp) 10 mg RC Q72HR PRN PRN Reason: IF MOM INEFFECTIVE Stop: 10/02/17 14:13 Bisacodyl (Dulcolax 10 Mg Supp) 10 mg RC PRN PRN PRN Reason: IF MOM INEFFECTIVE Stop: 10/02/17 14:13 Chlorhexidine Gluconate (Peridex) 15 ml MM 0800,2000 [facility] Stop: 10/02/17 07:59 Last Admin: 08/04/17 08:00 Dose: 15 ml Cholecalciferol (Vitamin D3) 1,000 iu GT DAILY [facility] Stop: 10/03/17 08:59 Last Admin: 08/04/17 09:18 Dose: 1,000 iu Diltiazem HCl (Cardizem) 5 mg IVP Q4H PRN PRN Reason: INCREASE HEART RATE Stop: 04/25/18 21:59 Last Admin: 08/03/17 01:38 Dose: 5 mg Docusate Sodium (Colace) 100 mg PO DAILY [facility] Stop: 10/03/17 08:59 Last Admin: 08/04/17 09:18 Dose: 100 mg Heparin Sodium (Porcine) (Heparin) 5,000 units HD UD [facility] Stop: 08/05/17 08:59 Last Admin: 08/04/17 09:19 Dose: Not Given Fluconazole (Diflucan) 200 mg in 100 mls @ 100 mls/hr IV Q24HR [facility] Stop: 10/02/17 14:59 Last Infusion: 08/03/17 15:40 Dose: Infused Meropenem 500 mg/ Sodium (Chloride) 100 mls @ 100 mls/hr IV Q24H [facility] Stop: 10/02/17 12:59 Last Admin: 08/04/17 13:17 Dose: 100 mls/hr Dopamine HCl/Dextrose (Dopamine) 400 mg in 250 mls @ 0 mls/hr IV TITR PRN; Protocol; Per Protocol PRN Reason: BP MAINTENANCE (PER PROTOCOL) Stop: 10/02/17 07:47 Norepinephrine Bitartrate 4 mg (/ Dextrose) 254 mls @ 0 mls/hr IV TITR PRN; Protocol; Per Protocol PRN Reason: BP MAINTENANCE (PER PROTOCOL) Stop: 10/02/17 08:31 Last Admin: 08/03/17 23:47 Dose: 4 mcg/min, 15.24 mls/hr Colistimethate Sodium 80 mg/ (Sodium Chloride) 100 mls @ 100 mls/hr IV Q36H [facility] Stop: 10/02/17 20:59 Last Infusion: 08/03/17 21:20 Dose: Infused Insulin Aspart (Novolog Insulin Sliding Scale) 0 units SUBQ Q6HR [facility] PRN Reason: Protocol Stop: 10/02/17 00:00 Last Admin: 08/04/17 11:30 Dose: 6 units Lorazepam (Ativan) 1 mg IVP Q2HR PRN; Protocol PRN Reason: Restlessness Stop: 10/01/17 21:18 Last Admin: 08/04/17 01:05 Dose: 1 mg Magnesium Hydroxide (Milk Of Magnesia) 30 ml GT Q72H PRN PRN Reason: NO BM FOR THREE DAYS Stop: 10/02/17 14:13 Mirtazapine (Remeron) 15 mg GT HS [facility] PRN Reason: Protocol Stop: 10/02/17 20:59 Last Admin: 08/03/17 20:19 Dose: 15 mg Miscellaneous (Vancomycin Iv Per Pharmacy) 1 ea MC PRN PRN PRN Reason: PROTOCOL Stop: 10/01/17 20:42 Miscellaneous (Zosyn Iv Per Pharmacy) 1 ea MC PRN PRN PRN Reason: PROTOCOL Stop: 10/01/17 20:42 Multivitamins/Vitamin C (Theragran) 1 tab PO DAILY [facility] Stop: 10/03/17 08:59 Last Admin: 08/04/17 09:18 Dose: 1 tab Ondansetron HCl (Zofran Odt) 4 mg PO Q6HR PRN PRN Reason: Nausea / Vomiting Stop: 10/02/17 14:13 Pantoprazole Sodium (Protonix) 40 mg IVP DAILY [facility] Stop: 10/02/17 08:59 Last Admin: 08/04/17 09:18 Dose: 40 mg Simethicone (Mylicon) 80 mg GT Q6H PRN PRN Reason: GAS PAIN Stop: 10/02/17 14:13 Sodium Phosphate (Fleet Enema) 118 ml RC PRN PRN PRN Reason: IF MOM/DULCOLAX INEFFECTIVE Stop: 10/02/17 14:13 Temazepam (Restoril) 15 mg GT HS PRN; Protocol PRN Reason: Insomnia Stop: 10/02/17 14:13 Last Admin: 08/03/17 20:19 Dose: 15 mg Zinc Sulfate (Zinc Sulfate) 220 mg GT DAILY [facility] Stop: 10/03/17 08:59 Last Admin: 08/04/17 09:18 Dose: 220 Lab - Result Diagrams 08/13/17 06:20 08/12/17 05:15 Schedule for HD today Venous & Arterial duplex scans were negative for DVT or clots CXR still showed persistent b/l effusions, CHF replace K f/u electrolytes. cbc Reccurence of shock, on levo 10 mcg BS hi start Levemir Nutritional Asmnt/Malnutr-PDOC - Dietary Evaluation Malnutrition Findings (Please click <Entered> for more info): Nutritional Asmnt/Malnutrition Start: 08/05/17 15: 53 Text: Status: Complete Freq: Document 08/05/17 15:53 [email or web address] (Rec: 08/05/17 16:[address] [facility] [id number]) Nutritional Asmnt/Malnutrition Patient General Information Nutritional Screening High Risk Diagnosis sepsis, respiratory failure, ESRD Pertinent Medical Hx/Surgical Hx ESRD on HD, respiratory failure with tracheostomy, dysphagia, a fib, anemia, HTN, GERD Subjective Information Pt on vent, not able to interview. Pt was on TF Novosource Renal 30ml/hr continuous, NPO today for surgery. Pt has dialysis ordred per nurse note. Current Diet Order/ Nutrition Support NPO on 08/05 Pertinent Medications vit C, vit D3, colace, novolog , remeron, theragran, protonix , zinc Pertinent Labs 08/05 Na 134, K 3.6, Cl 102, BUN 77, Cr 4.2, Glucose 216, POC 224-233 08/02 A1c 7.7 Nutritional Hx/Data Height 1.6 m Height (Calculated Centimeters) 160.0 Current Weight (lbs) 87.543 kg Weight (Calculated Kilograms) 87.5 Weight (Calculated Grams) [address]65.3 [place] Body Weight 115 Body Mass Index (BMI) 34.2 Weight Status Obese GI Symptoms GI Symptoms None Last BM 08/04 Difficult in: None Skin Integrity/Comment: reddened to left/right inner thigh, right lateral index finger, right/left arm; skin tear to left abdominal fold; pressure area to coccy/sacral Estimated Nutritional Goals BEE in Kcals: Adj wt of IBW Calories/Kcals/Kg 30-35 adj wt 61kg Kcals Calculated [id number] Protein: Adj wt of IBW Protein g/k.2-1.4 Protein Calculated 73-85 Fluid: ml 1830-2135ml (1ml/kcal) Nutritional Problem 1. Problem Problem altered nutrition related lab values Etiology hx of ESRD, endocrine dysfunction Signs/Symptoms: BUN 77, Cr 4.2, Glucose 216, POC 224-233, A1c 7.7 Malnutrition Alert Protein-Calorie Malnutrition N/A Is there a minimum of two criteria No selected? Query Text:Check all the applicable criteria. A minimum of two criteria are recommended for diagnosis of either severe or non-severe malnutrition. Intervention/Recommendation Comments 1. Resume TF Novosource Renal 30ml/hr continuous as ordered. increase to goal rate of 40ml /hr continuous as tolerated. This will provide 1920kcal, 87g protein and 688ml free water, meeting 100% of nutritional needs 2. Monitor TF rate, tolerance, wt weekly, skin integrity and labs 3. F/U as high risk in 2-3 days, 08/07-08/08 Expected Outcomes/Goals Expected Outcomes/Goals 1. Pt to meet at least 75% of nutritional needs via nutrition support with tolerance 2. Wt stability, skin to remain intact, labs to approach WNL.
[2017-08-14] MEDS: Diltiazem 5 mg/mL 5mL Vial IVP PRN ×2 (14:16→18:49)
--- NOTE | 2017-08-14 14:31 | GI Progress Note ---
Subjective - Review of Systems Subjective: NO GI BLEEDING Objective - Results Result Diagrams: 08/13/17 06:20 08/12/17 05:15 Recent Labs: Laboratory Last Values WBC 17.4 Th/cmm (4.8-10.8) H 08/13/17 06:20 RBC 2.42 Mil/cmm (3.80-5.20) L 08/13/17 06:20 Hgb 8.4 gm/dL (12-16) L 08/13/17 06:20 Hct 23.3 % (41.0-60) L 08/13/17 06:20 MCV 96.3 fl (81-100) 08/13/17 06:20 MCH 34.7 pg (27.0-31.0) H 08/13/17 06:20 MCHC Differential 36.0 pg (28.0-36.0) 08/13/17 06:20 RDW 16.9 % (11.5-20.0) 08/13/17 06:20 Plt Count 328 Th/cmm (150-400) 08/13/17 06:20 MPV 11.6 fl 08/13/17 06:20 Neutrophils % 84.5 % (40.0-80.0) H 08/13/17 06:20 Band Neutrophils % 4 % (0-10) 08/11/17 04:45 Lymphocytes % 4.7 % (20.0-50.0) L 08/13/17 06:20 Monocytes % 9.0 % (2.0-10.0) 08/13/17 06:20 Eosinophils % 1.8 % (0.0-5.0) 08/13/17 06:20 Basophils % 0.0 % (0.0-2.0) 08/13/17 06:20 Neutrophils (Manual) 81 % (40-80) H 08/11/17 04:45 Lymphocytes 8 % (20-50) L 08/11/17 04:45 Monocytes 3 % (2-10) 08/11/17 04:45 Eosinophils 4 % (0-5) 08/11/17 04:45 Basophils 1 % (0-3) 08/07/17 05:45 Hypochromia 1+ 08/02/17 15:37 Platelet Estimate ADEQUATE (NORMAL) 08/11/17 04:45 Platelet Morphology NORMAL (NORMAL) 08/02/17 15:37 Anisocytosis 1+ 08/07/17 05:45 Crenated Cell 2+ 08/02/17 15:37 RBC Morph Micro Appear ABNORMAL (NORMAL) 08/02/17 15:37 PT 12.9 SECONDS (9.5-11.5) H 08/02/17 13:58 INR 1.23 (0.5-1.4) 08/02/17 13:58 PTT (Actin FS) 33.6 SECONDS (26.0-38.0) 08/02/17 13:58 Specimen Source Arterial 08/03/17 08:58 Sample Site Right Radial 08/03/17 08:58 pH 7.42 (7.35-7.45) 08/03/17 08:58 pCO2 37.0 mmHg (35.0-45.0) 08/03/17 08:58 pO2 204.0 mmHg (80.0-100.0) H 08/03/17 08:58 HCO3 24.8 mEq/L (20.0-26.0) 08/03/17 08:58 Base Excess -0.2 mEq/L (-3.0-3.0) 08/03/17 08:58 O2 Saturation 100.0 % (92.0-100.0) 08/03/17 08:58 Rhett Test Positive 08/03/17 08:58 Vent Rate 12 08/03/17 08:58 Inspired O2 60 08/03/17 08:58 Tidal Volume 450 08/03/17 08:58 PEEP 5 08/03/17 08:58 Pressure (ins/psv/peep) NA 08/03/17 08:58 Critical Value LZHANG 08/03/17 08:58 Sodium 130 mEq/L (136-145) L 08/12/17 05:15 Potassium 3.9 mEq/L (3.5-5.1) 08/12/17 05:15 Chloride 94 mEq/L (98-107) L 08/12/17 05:15 Carbon Dioxide 25.5 mEq/L (21.0-31.0) 08/12/17 05:15 Anion Gap 14.4 (7.0-16.0) 08/12/17 05:15 BUN 62 mg/dL (7-25) H 08/12/17 05:15 Creatinine 3.4 mg/dL (0.6-1.2) H 08/12/17 05:15 Est GFR ( Amer) TNP 08/12/17 05:15 Est GFR (Non-Af Amer) TNP 08/12/17 05:15 BUN/Creatinine Ratio 18.2 08/12/17 05:15 Glucose 349 mg/dL (70-105) H 08/12/17 05:15 POC Glucose 274 MG/DL (70 - 105) H 08/14/17 05:47 Hemoglobin A1c % 7.7 % (4.0-6.0) H 08/02/17 15:37 Whole Bld Lactic Acid 1.97 mmol/L (0.60-1.99) 08/02/17 13:49 Calcium 8.8 mg/dL (8.6-10.3) 08/12/17 05:15 Magnesium 1.7 mg/dL (1.9-2.7) L 08/10/17 04:30 Iron 10 ug/dL (27-139) L 08/02/17 13:56 TIBC 135 ug/dL (250-450) L 08/02/17 13:56 Iron Saturation 7 % (15-55) L 08/02/17 13:56 Unsaturated IBC 125 ug/dL (118-369) 08/02/17 13:56 Ferritin 588 ng/mL (15-150) H 08/02/17 13:56 Total Bilirubin 0.6 mg/dL (0.3-1.0) 08/09/17 06:34 Direct Bilirubin 0.09 mg/dL (0.0-0.2) 08/02/17 13:57 AST 21 U/L (13-39) 08/09/17 06:34 ALT 12 U/L (7-52) 08/09/17 06:34 Alkaline Phosphatase 91 U/L (34-104) 08/09/17 06:34 Troponin I 1.16 ng/mL (0.01-0.05) H* D 08/04/17 06:30 B-Natriuretic Peptide 372.0 pg/mL (5.0-100.0) H 08/05/17 06:15 Total Protein 6.4 gm/dL (6.0-8.3) 08/09/17 06:34 Albumin 2.9 gm/dL (3.7-5.3) L 08/09/17 06:34 Globulin 3.5 gm/dL 08/09/17 06:34 Albumin/Globulin Ratio 0.8 (1.0-1.8) L 08/09/17 06:34 Triglycerides 132 mg/dL (<150) 08/04/17 06:30 Cholesterol 55 mg/dL (<200) 08/04/17 06:30 LDL Cholesterol Direct 16 mg/dL (75-193) L 08/04/17 06:30 HDL Cholesterol 13 mg/dL (23-92) L 08/04/17 06:30 Amylase 12 U/L (29-103) L 08/02/17 13:43 Lipase 4 U/L (11-82) L 08/02/17 13:43 TSH 3.74 uIU/ml (0.34-5.60) 08/04/17 06:30 Stool Occult Blood POSITIVE (NEGATIVE) H 08/03/17 17:50 Random Vancomycin 14.8 ug/mL (5.0-40.0) 08/09/17 06:34 Hepatitis A IgM Ab Negative (Negative) 08/08/17 08:15 Hep Bs Antigen Negative (Negative) 08/08/17 08:15 Hep B Core IgM Ab Negative (Negative) 08/08/17 08:15 Hepatitis C Antibody <0.1 s/co ratio (0.0-0.9) 08/08/17 08:15 Blood Type A POSITIVE 08/02/17 20:54 Antibody Screen POSITIVE 08/02/17 20:54 Antibody Identification Anti-K 08/02/17 20:54 Crossmatch See Detail 08/02/17 20:54 - Physical Exam Vitals and I&O: Vital Signs Temp 98.4 F 08/14/17 06:00 Pulse 135 08/14/17 14:16 Resp 18 08/14/17 06:55 BP 146/43 08/14/17 06:56 Pulse Ox 100 08/14/17 13:09 Intake & Output 08/13/17 08/14/17 08/14/17 18:59 06:59 18:59 Intake Total 280.183 6973.170 Output Total 0 Balance 946.600 6804.170 Weight (lbs) 94.914 kg Intake: Intake, IV Amount 315.042 710.170 Diltiazem 125 mg In 125 Dextrose 5% 100 ml @ 5 MG /HR 5 mls/hr IV TITR [facility] Rx#:[id number] Norepinephrine 8 mg In 90.042 610.170 Sodium Chloride 0.9% 250 ml @ 0 MCG/MIN IV TITR PRN Rx#:[id number] Piperacillin Sodium/ 100 100 Tazobact 2.25 gm In Sodium Chloride 0.9% 50 ml @ 100 mls/hr IV Q6HR [facility] Rx#:[id number] Oral 0 Tube Feeding 1650 Other 150 Output: Urine 0 Other: # Bowel Movements 1 Stool Characteristics Soft Liquid Brown Black Active Medications: Current Medications Acetaminophen (Tylenol 650mg/20.3ml Suspension) 650 mg GT DAILY [facility] Stop: 10/03/17 08:59 Last Admin: 08/14/17 11:05 Dose: Not Given Albuterol/Ipratropium (Duoneb Neb) 3 ml HHN Q4HRT [facility] Stop: 10/02/17 10:59 Last Admin: 08/14/17 13:09 Dose: 3 ml Ascorbic Acid (Vitamin C) 500 mg PO DAILY [facility] Stop: 10/03/17 08:59 Last Admin: 08/14/17 11:06 Dose: Not Given Aspirin (Aspirin Chewable) 81 mg GT DAILY [facility] Stop: 10/03/17 08:59 Last Admin: 08/13/17 10:01 Dose: 81 mg Atorvastatin Calcium (Lipitor) 40 mg GT HS [facility] Stop: 10/03/17 20:59 Last Admin: 08/13/17 20:24 Dose: 40 mg Bisacodyl (Dulcolax 10 Mg Supp) 10 mg RC Q72HR PRN PRN Reason: IF MOM INEFFECTIVE Stop: 10/02/17 14:13 Chlorhexidine Gluconate (Peridex) 15 ml MM 0800,2000 [facility] Stop: 10/02/17 07:59 Last Admin: 08/14/17 08:00 Dose: 15 ml Cholecalciferol (Vitamin D3) 1,000 iu GT DAILY [facility] Stop: 10/03/17 08:59 Last Admin: 08/14/17 11:06 Dose: Not Given Diltiazem HCl (Cardizem) 5 mg IVP Q4H PRN PRN Reason: INCREASE HEART RATE Stop: 10/01/17 21:59 Last Admin: 08/14/17 14:16 Dose: 5 mg Docusate Sodium (Colace) 100 mg PO DAILY [facility] Stop: 10/03/17 08:59 Last Admin: 08/14/17 11:07 Dose: Not Given Heparin Sodium (Porcine) (Heparin) 5,000 units SUBQ Q12HR [facility] Stop: 10/11/17 20:59 Last Admin: 08/14/17 11:07 Dose: 5,000 units Dopamine HCl/Dextrose (Dopamine) 400 mg in 250 mls @ 0 mls/hr IV TITR PRN; Protocol; Per Protocol PRN Reason: BP MAINTENANCE (PER PROTOCOL) Stop: 10/02/17 07:47 Diltiazem HCl 125 mg/ Dextrose 125 mls @ 5 mls/hr IV TITR [facility]; 5 MG/HR PRN Reason: Protocol Stop: 10/11/17 11:44 Last Titration: 08/13/17 09:22 Dose: Infused Norepinephrine Bitartrate 8 mg (/ Sodium Chloride) 258 mls @ 0 mls/hr IV TITR PRN; Protocol; 0 MCG/MIN PRN Reason: BP MAINTENANCE (PER PROTOCOL) Stop: 10/12/17 10:59 Last Titration: 08/14/17 06:53 Dose: 10 mcg/min, 19.35 mls/hr Insulin Aspart (Novolog Insulin Sliding Scale) 0 units SUBQ Q6HR [facility] PRN Reason: Protocol Stop: 10/02/17 00:00 Last Admin: 08/14/17 05:54 Dose: 6 units Insulin Detemir (Levemir Insulin) 16 units SUBQ HS [facility] PRN Reason: Protocol Stop: 10/13/17 20:59 Lactobacillus Rhamnosus (Culturelle 15b) 1 each PO DAILY [facility] Stop: 10/07/17 08:59 Last Admin: 08/13/17 10:01 Dose: 1 each Lorazepam (Ativan) 1 mg IVP Q2H PRN; Protocol PRN Reason: Restlessness Stop: 10/09/17 09:44 Last Admin: 08/14/17 13:14 Dose: 1 mg Magnesium Hydroxide (Milk Of Magnesia) 30 ml GT Q72H PRN PRN Reason: NO BM FOR THREE DAYS Stop: 10/02/17 14:13 Mirtazapine (Remeron) 15 mg GT HS [facility] PRN Reason: Protocol Stop: 10/02/17 20:59 Last Admin: 08/13/17 20:25 Dose: 15 mg Miscellaneous (Clinical Monitoring) 1 ea MC PRN PRN PRN Reason: RENAL Stop: 10/05/17 11:28 Miscellaneous (Zosyn Iv Per Pharmacy) 1 ea PRN PRN PRN Reason: PROTOCOL Stop: 10/05/17 15:59 Miscellaneous (Probiotic Screen) 1 ea PRN PRN PRN Reason: PROTOCOL Stop: 10/06/17 14:14 Multivitamins/Vitamin C (Theragran) 1 tab PO DAILY [facility] Stop: 10/03/17 08:59 Last Admin: 08/13/17 10:02 Dose: 1 tab Ondansetron HCl (Zofran Odt) 4 mg PO Q6HR PRN PRN Reason: Nausea / Vomiting Stop: 10/02/17 14:13 Last Admin: 08/09/17 08:41 Dose: 4 mg Pantoprazole Sodium (Protonix) 40 mg IVP DAILY [facility] Stop: 10/02/17 08:59 Last Admin: 08/13/17 10:02 Dose: 40 mg Simethicone (Mylicon) 80 mg GT Q6H PRN PRN Reason: GAS PAIN Stop: 10/02/17 14:13 Sodium Phosphate (Fleet Enema) 118 ml RC PRN PRN PRN Reason: IF MOM/DULCOLAX INEFFECTIVE Stop: 10/02/17 14:13 Zinc Sulfate (Zinc Sulfate) 220 mg GT DAILY [facility] Stop: 10/03/17 08:59 Last Admin: 08/13/17 10:01 Dose: 220 mg General: Alert, No acute distress (scattered rhonchi) HEENT: Atraumatic, PERRLA, EOMI, Mucous membr. moist/pink Neck: Supple, Other (TRACH) Cardiovascular: Regular rate Lungs: Other (coarse rhonchi) Abdomen: Bowel sounds, Soft, Other (INTACT GT) Extremities: Edema (upper wxtrmities), Other (upper ext) Neurological: Sensation intact Skin: no Rash Psych/Mental Status: Mood NL - Procedures Procedures: Procedures Procedure Code Date BLOOD TRANSFUSION SERVICE 49766 08/02/17 EXCISION OF STOMACH, ENDO, DIAGN [id number] 07/10/17 INSPECTION OF LOWER INTESTINAL TRACT, ENDO [id number] 07/10/17 PERFORMANCE OF URINARY FILTRATION, <6 HRS/DAY [id number] 07/10/17 RESPIRATORY VENTILATION, GREATER THAN 96 CONSECUTIVE HOURS [id number] 08/02/17 TRANSFUSE NONAUT RED BLOOD CELLS IN PERIPH VEIN, PERC [id number] 08/02/17 Assessment/Plan - Assessment Assessment: 76 YO FEMALE WITH ANEMIA STOOL OB + NO OVERT GI BLEEDING BUT COULD BE SMALL BOWEL SOURCE RECENT EGD SHOWED GASTRITIS RECENT COLO SHOWED HEMORRHOIDS SBFT SHOWED REFLUX AND DELAYED TRANSIT WITHOUT OBSTRUCTION 1.FOLLOW H/H 2.IF GI BLEEDING OCCURS THEN GET BLEEDING SCAN VS ANGIOGRAPHY
[2017-08-14] MEDS: Lactobacillus Rhamnosus GG 15 Billion CFU CAP.SPRINK PO SCH (16:44)
[2017-08-14] MEDS: Multivitamin Tab PO SCH (16:44)
[2017-08-14] MEDS: Aspirin 81mg Chewable Tab GT SCH (16:44)
[2017-08-14] MEDS: Diphenoxylate/Atropine 2.5mg Tab PO SCH ×2 (18:11→21:35)
[2017-08-14] MEDS: Insulin Detemir 100 units/mL 10mL Vial SUBQ SCH (21:44)
[2017-08-15] MEDS: INSULIN ASPART SLIDING SCALE 100 UNITS/ML UNIT SUBQ SCH ×5 (00:27→18:45)
[2017-08-15] MEDS: Albuterol/Ipratropium Neb 3 ML AERS HHN SCH ×6 (02:33→22:47)
[2017-08-15] MEDS: Chlorhexidine Gluconate 0.12% 15mL Mouthwash MM SCH ×2 (08:30→20:16)
--- NOTE | 2017-08-15 08:40 | Diagnostic Imaging Report ---
CHEST X-RAY: AP view INDICATION: CHF COMPARISON: 08/14/2015 FINDINGS: Tracheostomy tube is noted. Persistent CHF is seen bilateral effusions, left larger than right. Cardiomegaly is noted. IMPRESSION: Persistent CHF with bilateral effusions, left larger the right and multifocal infiltrates Cardiomegaly.
[2017-08-15 08:42] LABS: EOSINOPHILE ABSOLUTE 0.1 Th/cmm (0.1-0.4); MONOCYTE ABSOLUTE 1.3 Th/cmm (0.3-1.0)
[2017-08-15 08:48] LABS: % LYMPHOCYTES 5.1 % (20.0-50.0); % MONOCYTES 10.3 % (2.0-10.0); % NEUTROPHILS 83.6 % (40.0-80.0); LYMPHOCYTE ABSOLUTE 0.7 Th/cmm (1.5-3.0); MEAN CORPUSCULAR HEMOGLOBIN 31.9 pg (27.0-31.0); MEAN CORPUSCULAR HGB CONC 33.9 pg (28.0-36.0); MEAN PLATELET VOLUME 10.7 fl; PLATELET COUNT 324 Th/cmm (150-400)
[2017-08-15] MEDS: Lactobacillus Rhamnosus GG 15 Billion CFU CAP.SPRINK PO SCH (08:49)
[2017-08-15] MEDS: Aspirin 81mg Chewable Tab GT SCH (08:49)
[2017-08-15] MEDS: Multivitamin Tab PO SCH (08:49)
[2017-08-15] MEDS: Diphenoxylate/Atropine 2.5mg Tab PO SCH ×3 (08:50→20:16)
[2017-08-15 08:58] LABS: HEMATOCRIT 17.9 % (41.0-60); HEMOGLOBIN 6.1 gm/dL (12-16); WHITE BLOOD COUNT 13.1 Th/cmm (4.8-10.8)
--- NOTE | 2017-08-15 09:51 | Internal Medicine Prog Note ---
Internal Medicine Subjective - Subjective Service Date: 08/15/17 Patient is:: awake, non-verbal Per staff patient has:: tolerating meds Internal Medicine Objective - Results Result Diagrams: 08/15/17 07:50 08/12/17 05:15 Recent Labs: Laboratory Last Values WBC 13.1 Th/cmm (4.8-10.8) H 08/15/17 07:50 RBC 1.90 Mil/cmm (3.80-5.20) L 08/15/17 07:50 Hgb 6.1 gm/dL (12-16) L* 08/15/17 07:50 Hct 17.9 % (41.0-60) L* 08/15/17 07:50 MCV 94.0 fl (81-100) 08/15/17 07:50 MCH 31.9 pg (27.0-31.0) H 08/15/17 07:50 MCHC Differential 33.9 pg (28.0-36.0) 08/15/17 07:50 RDW 17.0 % (11.5-20.0) 08/15/17 07:50 Plt Count 324 Th/cmm (150-400) 08/15/17 07:50 MPV 10.7 fl 08/15/17 07:50 Neutrophils % 83.6 % (40.0-80.0) H 08/15/17 07:50 Band Neutrophils % 4 % (0-10) 08/11/17 04:45 Lymphocytes % 5.1 % (20.0-50.0) L 08/15/17 07:50 Monocytes % 10.3 % (2.0-10.0) H 08/15/17 07:50 Eosinophils % 1.0 % (0.0-5.0) 08/15/17 07:50 Basophils % 0.0 % (0.0-2.0) 08/15/17 07:50 Neutrophils (Manual) 81 % (40-80) H 08/11/17 04:45 Lymphocytes 8 % (20-50) L 08/11/17 04:45 Monocytes 3 % (2-10) 08/11/17 04:45 Eosinophils 4 % (0-5) 08/11/17 04:45 Basophils 1 % (0-3) 08/07/17 05:45 Hypochromia 1+ 02/24/18 15:37 Platelet Estimate ADEQUATE (NORMAL) 08/11/17 04:45 Platelet Morphology NORMAL (NORMAL) 08/02/17 15:37 Anisocytosis 1+ 08/07/17 05:45 Crenated Cell 2+ 08/02/17 15:37 RBC Morph Micro Appear ABNORMAL (NORMAL) 08/02/17 15:37 PT 12.9 SECONDS (9.5-11.5) H 08/02/17 13:58 INR 1.23 (0.5-1.4) 08/02/17 13:58 PTT (Actin FS) 33.6 SECONDS (26.0-38.0) 08/02/17 13:58 Specimen Source Arterial 08/03/17 08:58 Sample Site Right Radial 08/03/17 08:58 pH 7.42 (7.35-7.45) 08/03/17 08:58 pCO2 37.0 mmHg (35.0-45.0) 08/03/17 08:58 pO2 204.0 mmHg (80.0-100.0) H 08/03/17 08:58 HCO3 24.8 mEq/L (20.0-26.0) 08/03/17 08:58 Base Excess -0.2 mEq/L (-3.0-3.0) 08/03/17 08:58 O2 Saturation 100.0 % (92.0-100.0) 08/03/17 08:58 Rhett Test Positive 08/03/17 08:58 Vent Rate 12 08/03/17 08:58 Inspired O2 60 08/03/17 08:58 Tidal Volume 450 08/03/17 08:58 PEEP 5 08/03/17 08:58 Pressure (ins/psv/peep) NA 08/03/17 08:58 Critical Value LZHANG 08/03/17 08:58 Sodium 130 mEq/L (136-145) L 08/12/17 05:15 Potassium 3.9 mEq/L (3.5-5.1) 08/12/17 05:15 Chloride 94 mEq/L (98-107) L 08/12/17 05:15 Carbon Dioxide 25.5 mEq/L (21.0-31.0) 08/12/17 05:15 Anion Gap 14.4 (7.0-16.0) 08/12/17 05:15 BUN 62 mg/dL (7-25) H 08/12/17 05:15 Creatinine 3.4 mg/dL (0.6-1.2) H 08/12/17 05:15 Est GFR ( Amer) TNP 08/12/17 05:15 Est GFR (Non-Af Amer) TNP 08/12/17 05:15 BUN/Creatinine Ratio 18.2 08/12/17 05:15 Glucose 349 mg/dL (70-105) H 08/12/17 05:15 POC Glucose 164 MG/DL (70 - 105) H 08/15/17 05:46 Hemoglobin A1c % 7.7 % (4.0-6.0) H 08/02/17 15:37 Whole Bld Lactic Acid 1.97 mmol/L (0.60-1.99) 08/02/17 13:49 Calcium 8.8 mg/dL (8.6-10.3) 08/12/17 05:15 Magnesium 1.7 mg/dL (1.9-2.7) L 08/10/17 04:30 Iron 10 ug/dL (27-139) L 08/02/17 13:56 TIBC 135 ug/dL (250-450) L 08/02/17 13:56 Iron Saturation 7 % (15-55) L 08/02/17 13:56 Unsaturated IBC 125 ug/dL (118-369) 08/02/17 13:56 Ferritin 588 ng/mL (15-150) H 08/02/17 13:56 Total Bilirubin 0.6 mg/dL (0.3-1.0) 08/09/17 06:34 Direct Bilirubin 0.09 mg/dL (0.0-0.2) 08/02/17 13:57 AST 21 U/L (13-39) 08/09/17 06:34 ALT 12 U/L (7-52) 08/09/17 06:34 Alkaline Phosphatase 91 U/L (34-104) 08/09/17 06:34 Troponin I 1.16 ng/mL (0.01-0.05) H* D 08/04/17 06:30 B-Natriuretic Peptide 372.0 pg/mL (5.0-100.0) H 08/05/17 06:15 Total Protein 6.4 gm/dL (6.0-8.3) 08/09/17 06:34 Albumin 2.9 gm/dL (3.7-5.3) L 08/09/17 06:34 Globulin 3.5 gm/dL 08/09/17 06:34 Albumin/Globulin Ratio 0.8 (1.0-1.8) L 08/09/17 06:34 Triglycerides 132 mg/dL (<150) 08/04/17 06:30 Cholesterol 55 mg/dL (<200) 08/04/17 06:30 LDL Cholesterol Direct 16 mg/dL (75-193) L 08/04/17 06:30 HDL Cholesterol 13 mg/dL (23-92) L 08/04/17 06:30 Amylase 12 U/L (29-103) L 08/02/17 13:43 Lipase 4 U/L (11-82) L 08/02/17 13:43 TSH 3.74 uIU/ml (0.34-5.60) 08/04/17 06:30 Stool Occult Blood POSITIVE (NEGATIVE) H 08/03/17 17:50 Random Vancomycin 14.8 ug/mL (5.0-40.0) 08/09/17 06:34 Hepatitis A IgM Ab Negative (Negative) 08/08/17 08:15 Hep Bs Antigen Negative (Negative) 08/08/17 08:15 Hep B Core IgM Ab Negative (Negative) 08/08/17 08:15 Hepatitis C Antibody <0.1 s/co ratio (0.0-0.9) 08/08/17 08:15 Blood Type A POSITIVE 08/02/17 20:54 Antibody Screen POSITIVE 08/02/17 20:54 Antibody Identification Anti-K 08/02/17 20:54 Crossmatch See Detail 08/02/17 20:54 - Physical Exam Vitals and I&O: Vital Signs Temp 98.9 F 08/15/17 06:00 Pulse 96 08/15/17 07:25 Resp 15 08/15/17 07:00 BP 127/32 08/15/17 07:00 Pulse Ox 100 08/15/17 07:25 Intake & Output 08/14/17 08/15/17 08/15/17 18:59 06:59 18:59 Intake Total 146.093 729.828 Balance 146.093 729.828 Weight (lbs) 209 lb Intake: Intake, IV Amount 146.093 429.828 Norepinephrine 8 mg In 146.093 429.828 Sodium Chloride 0.9% 250 ml @ 0 MCG/MIN IV TITR PRN Rx#:[id number] Other 300 Other: # Bowel Movements 2 Stool Characteristics Liquid Liquid Black Black Green Green Active Medications: Current Medications Acetaminophen (Tylenol 650mg/20.3ml Suspension) 650 mg GT DAILY [facility] Stop: 10/03/17 08:59 Last Admin: 08/15/17 08:48 Dose: 650 mg Albuterol/Ipratropium (Duoneb Neb) 3 ml HHN Q4HRT [facility] Stop: 10/02/17 10:59 Last Admin: 08/15/17 07:24 Dose: 3 ml Ascorbic Acid (Vitamin C) 500 mg PO DAILY [facility] Stop: 10/03/17 08:59 Last Admin: 08/15/17 08:49 Dose: 500 mg Aspirin (Aspirin Chewable) 81 mg GT DAILY [facility] Stop: 10/03/17 08:59 Last Admin: 08/15/17 08:49 Dose: 81 mg Atorvastatin Calcium (Lipitor) 40 mg GT HS [facility] Stop: 10/03/17 20:59 Last Admin: 08/14/17 21:35 Dose: 40 mg Bisacodyl (Dulcolax 10 Mg Supp) 10 mg RC Q72HR PRN PRN Reason: IF MOM INEFFECTIVE Stop: 10/02/17 14:13 Chlorhexidine Gluconate (Peridex) 15 ml MM 0800,2000 [facility] Stop: 10/02/17 07:59 Last Admin: 08/14/17 21:35 Dose: 15 ml Cholecalciferol (Vitamin D3) 1,000 iu GT DAILY [facility] Stop: 10/03/17 08:59 Last Admin: 08/15/17 09:18 Dose: 1,000 iu Diltiazem HCl (Cardizem) 5 mg IVP Q4H PRN PRN Reason: INCREASE HEART RATE Stop: 10/01/17 21:59 Last Admin: 08/14/17 18:49 Dose: 5 mg Diphenoxylate HCl/Atropine (Lomotil) 1 tab PO TID [facility] Stop: 08/16/17 09:01 Last Admin: 08/15/17 08:50 Dose: 1 tab Docusate Sodium (Colace) 100 mg PO DAILY [facility] Stop: 10/03/17 08:59 Last Admin: 08/15/17 09:19 Dose: Not Given Heparin Sodium (Porcine) (Heparin) 5,000 units SUBQ Q12HR [facility] Stop: 10/11/17 20:59 Last Admin: 08/15/17 08:50 Dose: 5,000 units Dopamine HCl/Dextrose (Dopamine) 400 mg in 250 mls @ 0 mls/hr IV TITR PRN; Protocol; Per Protocol PRN Reason: BP MAINTENANCE (PER PROTOCOL) Stop: 10/02/17 07:47 Diltiazem HCl 125 mg/ Dextrose 125 mls @ 5 mls/hr IV TITR [facility]; 5 MG/HR PRN Reason: Protocol Stop: 10/11/17 11:44 Last Titration: 08/13/17 09:22 Dose: Infused Norepinephrine Bitartrate 8 mg (/ Sodium Chloride) 258 mls @ 0 mls/hr IV TITR PRN; Protocol; 0 MCG/MIN PRN Reason: BP MAINTENANCE (PER PROTOCOL) Stop: 10/12/17 10:59 Last Titration: 08/15/17 05:00 Dose: 14 mcg/min, 27.09 mls/hr Insulin Aspart (Novolog Insulin Sliding Scale) 0 units SUBQ Q6HR [facility] PRN Reason: Protocol Stop: 10/02/17 00:00 Last Admin: 08/15/17 07:17 Dose: 2 units Insulin Detemir (Levemir Insulin) 16 units SUBQ HS [facility] PRN Reason: Protocol Stop: 10/13/17 20:59 Last Admin: 08/14/17 21:44 Dose: 16 units Lactobacillus Rhamnosus (Culturelle 15b) 1 each PO DAILY [facility] Stop: 10/07/17 08:59 Last Admin: 08/15/17 08:49 Dose: 1 each Lorazepam (Ativan) 1 mg IVP Q2H PRN; Protocol PRN Reason: Restlessness Stop: 10/09/17 09:44 Last Admin: 08/15/17 06:08 Dose: 1 mg Magnesium Hydroxide (Milk Of Magnesia) 30 ml GT Q72H PRN PRN Reason: NO BM FOR THREE DAYS Stop: 10/02/17 14:13 Mirtazapine (Remeron) 15 mg GT HS [facility] PRN Reason: Protocol Stop: 10/02/17 20:59 Last Admin: 08/14/17 21:35 Dose: 15 mg Miscellaneous (Clinical Monitoring) 1 ea PRN PRN PRN Reason: RENAL Stop: 10/05/17 11:28 Miscellaneous (Zosyn Iv Per Pharmacy) 1 ea PRN PRN PRN Reason: PROTOCOL Stop: 10/05/17 15:59 Miscellaneous (Probiotic Screen) 1 ea PRN PRN PRN Reason: PROTOCOL Stop: 10/06/17 14:14 Multivitamins/Vitamin C (Theragran) 1 tab PO DAILY [facility] Stop: 10/03/17 08:59 Last Admin: 08/15/17 08:49 Dose: 1 tab Ondansetron HCl (Zofran Odt) 4 mg PO Q6HR PRN PRN Reason: Nausea / Vomiting Stop: 10/02/17 14:13 Last Admin: 08/09/17 08:41 Dose: 4 mg Pantoprazole Sodium (Protonix) 40 mg IVP DAILY FOUZIA Stop: 10/02/17 08:59 Last Admin: 08/15/17 09:19 Dose: 40 mg Simethicone (Mylicon) 80 mg GT Q6H PRN PRN Reason: GAS PAIN Stop: 10/02/17 14:13 Sodium Phosphate (Fleet Enema) 118 ml RC PRN PRN PRN Reason: IF MOM/DULCOLAX INEFFECTIVE Stop: 10/02/17 14:13 Zinc Sulfate (Zinc Sulfate) 220 mg GT DAILY FOUZIA Stop: 10/03/17 08:59 Last Admin: 08/15/17 09:19 Dose: 220 mg General: weak, obtunded HEENT: NC/AT, PERRLA Neck: Supple Lungs: ronchi Abdomen: soft, non-tender, non-distended, +GT Neurological: unable to follow command - Procedures Procedures: Procedures Procedure Code Date BLOOD TRANSFUSION SERVICE 42147 08/02/17 EXCISION OF STOMACH, ENDO, DIAGN [id number] 07/10/17 INSPECTION OF LOWER INTESTINAL TRACT, ENDO [id number] 07/10/17 PERFORMANCE OF URINARY FILTRATION, <6 HRS/DAY [id number] 07/10/17 RESPIRATORY VENTILATION, GREATER THAN 96 CONSECUTIVE HOURS [id number] 08/02/17 TRANSFUSE NONAUT RED BLOOD CELLS IN PERIPH VEIN, PERC [id number] 08/02/17 Internal Medicine Assmt/Plan - Assessment Assessment: Assessment: 1. Septic shock. 2. Gram-negative negative bacteremia. 3. Pneumonia. 4. CK D stage V pneumatosis. 5. Diabetes mellitus type 2. 6. Obesity. 7. hypotension - Plan Plan: titrate levophed as per protocol cbc.bmp in am continue ivabx as per ID continue current orders Nutritional Asmnt/Malnutr-PDOC - Dietary Evaluation Malnutrition Findings (Please click <Entered> for more info): Nutritional Asmnt/Malnutrition Start: 08/05/17 15: 53 Text: Status: Complete Freq: Document 08/05/17 15:53 HEIDY (Rec: 08/05/17 16:19 LCMAX [email or web address]) Nutritional Asmnt/Malnutrition Patient General Information Nutritional Screening High Risk Diagnosis sepsis, respiratory failure, ESRD Pertinent Medical Hx/Surgical Hx ESRD on HD, respiratory failure with tracheostomy, dysphagia, a fib, anemia, HTN, GERD Subjective Information Pt on vent, not able to interview. Pt was on TF Novosource Renal 30ml/hr continuous, NPO today for surgery. Pt has dialysis ordred per nurse note. Current Diet Order/ Nutrition Support NPO on 08/05 Pertinent Medications vit C, vit D3, colace, novolog , remeron, theragran, protonix , zinc Pertinent Labs 08/05 Na 134, K 3.6, Cl 102, BUN 77, Cr 4.2, Glucose 216, POC 224-233 08/02 A1c 7.7 Nutritional Hx/Data Height 5 ft 3 in Height (Calculated Centimeters) 160.0 Current Weight (lbs) 193 lb Weight (Calculated Kilograms) 87.5 Weight (Calculated Grams) [address]243.3 [place] Body Weight 115 Body Mass Index (BMI) 34.2 Weight Status Obese GI Symptoms GI Symptoms None Last BM 08/04 Difficult in: None Skin Integrity/Comment: reddened to left/right inner thigh, right lateral index finger, right/left arm; skin tear to left abdominal fold; pressure area to coccy/sacral Estimated Nutritional Goals BEE in Kcals: Adj wt of IBW Calories/Kcals/Kg 30-35 adj wt 61kg Kcals Calculated 1950-2421 Protein: Adj wt of IBW Protein g/k.2-1.4 Protein Calculated 73-85 Fluid: ml 1830-2135ml (1ml/kcal) Nutritional Problem 1. Problem Problem altered nutrition related lab values Etiology hx of ESRD, endocrine dysfunction Signs/Symptoms: BUN 77, Cr 4.2, Glucose 216, POC 224-233, A1c 7.7 Malnutrition Alert Protein-Calorie Malnutrition N/A Is there a minimum of two criteria No selected? Query Text:Check all the applicable criteria. A minimum of two criteria are recommended for diagnosis of either severe or non-severe malnutrition. Intervention/Recommendation Comments 1. Resume TF Novosource Renal 30ml/hr continuous as ordered. increase to goal rate of 40ml /hr continuous as tolerated. This will provide 1920kcal, 87g protein and 688ml free water, meeting 100% of nutritional needs 2. Monitor TF rate, tolerance, wt weekly, skin integrity and labs 3. F/U as high risk in 2-3 days, 3/-3/2 Expected Outcomes/Goals Expected Outcomes/Goals 1. Pt to meet at least 75% of nutritional needs via nutrition support with tolerance 2. Wt stability, skin to remain intact, labs to approach WNL.
--- NOTE | 2017-08-15 10:12 | GI Progress Note ---
Subjective - Review of Systems Subjective: NO GI BLEEDING Objective - Results Result Diagrams: 08/15/17 07:50 08/12/17 05:15 Recent Labs: Laboratory Last Values WBC 13.1 Th/cmm (4.8-10.8) H 08/15/17 07:50 RBC 1.90 Mil/cmm (3.80-5.20) L 08/15/17 07:50 Hgb 6.1 gm/dL (12-16) L* 08/15/17 07:50 Hct 17.9 % (41.0-60) L* 08/15/17 07:50 MCV 94.0 fl (81-100) 08/15/17 07:50 MCH 31.9 pg (27.0-31.0) H 08/15/17 07:50 MCHC Differential 33.9 pg (28.0-36.0) 08/15/17 07:50 RDW 17.0 % (11.5-20.0) 08/15/17 07:50 Plt Count 324 Th/cmm (150-400) 08/15/17 07:50 MPV 10.7 fl 08/15/17 07:50 Neutrophils % 83.6 % (40.0-80.0) H 08/15/17 07:50 Band Neutrophils % 4 % (0-10) 08/11/17 04:45 Lymphocytes % 5.1 % (20.0-50.0) L 08/15/17 07:50 Monocytes % 10.3 % (2.0-10.0) H 08/15/17 07:50 Eosinophils % 1.0 % (0.0-5.0) 08/15/17 07:50 Basophils % 0.0 % (0.0-2.0) 08/15/17 07:50 Neutrophils (Manual) 81 % (40-80) H 08/11/17 04:45 Lymphocytes 8 % (20-50) L 08/11/17 04:45 Monocytes 3 % (2-10) 08/11/17 04:45 Eosinophils 4 % (0-5) 08/11/17 04:45 Basophils 1 % (0-3) 08/07/17 05:45 Hypochromia 1+ 08/02/17 15:37 Platelet Estimate ADEQUATE (NORMAL) 08/11/17 04:45 Platelet Morphology NORMAL (NORMAL) 08/02/17 15:37 Anisocytosis 1+ 08/07/17 05:45 Crenated Cell 2+ 08/02/17 15:37 RBC Morph Micro Appear ABNORMAL (NORMAL) 08/02/17 15:37 PT 12.9 SECONDS (9.5-11.5) H 08/02/17 13:58 INR 1.23 (0.5-1.4) 08/02/17 13:58 PTT (Actin FS) 33.6 SECONDS (26.0-38.0) 08/02/17 13:58 Specimen Source Arterial 08/03/17 08:58 Sample Site Right Radial 08/03/17 08:58 pH 7.42 (7.35-7.45) 08/03/17 08:58 pCO2 37.0 mmHg (35.0-45.0) 08/03/17 08:58 pO2 204.0 mmHg (80.0-100.0) H 08/03/17 08:58 HCO3 24.8 mEq/L (20.0-26.0) 08/03/17 08:58 Base Excess -0.2 mEq/L (-3.0-3.0) 08/03/17 08:58 O2 Saturation 100.0 % (92.0-100.0) 08/03/17 08:58 Rhett Test Positive 08/03/17 08:58 Vent Rate 12 08/03/17 08:58 Inspired O2 60 08/03/17 08:58 Tidal Volume 450 08/03/17 08:58 PEEP 5 08/03/17 08:58 Pressure (ins/psv/peep) NA 08/03/17 08:58 Critical Value LZHANG 08/03/17 08:58 Sodium 130 mEq/L (136-145) L 08/12/17 05:15 Potassium 3.9 mEq/L (3.5-5.1) 08/12/17 05:15 Chloride 94 mEq/L (98-107) L 08/12/17 05:15 Carbon Dioxide 25.5 mEq/L (21.0-31.0) 08/12/17 05:15 Anion Gap 14.4 (7.0-16.0) 08/12/17 05:15 BUN 62 mg/dL (7-25) H 08/12/17 05:15 Creatinine 3.4 mg/dL (0.6-1.2) H 08/12/17 05:15 Est GFR ( Amer) TNP 08/12/17 05:15 Est GFR (Non-Af Amer) TNP 08/12/17 05:15 BUN/Creatinine Ratio 18.2 08/12/17 05:15 Glucose 349 mg/dL (70-105) H 08/12/17 05:15 POC Glucose 164 MG/DL (70 - 105) H 08/15/17 05:46 Hemoglobin A1c % 7.7 % (4.0-6.0) H 08/02/17 15:37 Whole Bld Lactic Acid 1.97 mmol/L (0.60-1.99) 08/02/17 13:49 Calcium 8.8 mg/dL (8.6-10.3) 08/12/17 05:15 Magnesium 1.7 mg/dL (1.9-2.7) L 08/10/17 04:30 Iron 10 ug/dL (27-139) L 08/02/17 13:56 TIBC 135 ug/dL (250-450) L 08/02/17 13:56 Iron Saturation 7 % (15-55) L 08/02/17 13:56 Unsaturated IBC 125 ug/dL (118-369) 08/02/17 13:56 Ferritin 588 ng/mL (15-150) H 08/02/17 13:56 Total Bilirubin 0.6 mg/dL (0.3-1.0) 08/09/17 06:34 Direct Bilirubin 0.09 mg/dL (0.0-0.2) 08/02/17 13:57 AST 21 U/L (13-39) 08/09/17 06:34 ALT 12 U/L (7-52) 08/09/17 06:34 Alkaline Phosphatase 91 U/L (34-104) 08/09/17 06:34 Troponin I 1.16 ng/mL (0.01-0.05) H* D 08/04/17 06:30 B-Natriuretic Peptide 372.0 pg/mL (5.0-100.0) H 08/05/17 06:15 Total Protein 6.4 gm/dL (6.0-8.3) 08/09/17 06:34 Albumin 2.9 gm/dL (3.7-5.3) L 08/09/17 06:34 Globulin 3.5 gm/dL 08/09/17 06:34 Albumin/Globulin Ratio 0.8 (1.0-1.8) L 08/09/17 06:34 Triglycerides 132 mg/dL (<150) 08/04/17 06:30 Cholesterol 55 mg/dL (<200) 08/04/17 06:30 LDL Cholesterol Direct 16 mg/dL (75-193) L 08/04/17 06:30 HDL Cholesterol 13 mg/dL (23-92) L 08/04/17 06:30 Amylase 12 U/L (29-103) L 08/02/17 13:43 Lipase 4 U/L (11-82) L 08/02/17 13:43 TSH 3.74 uIU/ml (0.34-5.60) 08/04/17 06:30 Stool Occult Blood POSITIVE (NEGATIVE) H 08/03/17 17:50 Random Vancomycin 14.8 ug/mL (5.0-40.0) 08/09/17 06:34 Hepatitis A IgM Ab Negative (Negative) 08/08/17 08:15 Hep Bs Antigen Negative (Negative) 08/08/17 08:15 Hep B Core IgM Ab Negative (Negative) 08/08/17 08:15 Hepatitis C Antibody <0.1 s/co ratio (0.0-0.9) 08/08/17 08:15 Blood Type A POSITIVE 08/02/17 20:54 Antibody Screen POSITIVE 08/02/17 20:54 Antibody Identification Anti-K 08/02/17 20:54 Crossmatch See Detail 08/02/17 20:54 - Physical Exam Vitals and I&O: Vital Signs Temp 98.9 F 08/15/17 06:00 Pulse 96 08/15/17 07:25 Resp 15 08/15/17 07:00 BP 127/32 08/15/17 07:00 Pulse Ox 100 08/15/17 07:25 Intake & Output 08/14/17 08/15/17 08/15/17 18:59 06:59 18:59 Intake Total 146.093 729.828 Balance 146.093 729.828 Weight (lbs) 94.801 kg Intake: Intake, IV Amount 146.093 429.828 Norepinephrine 8 mg In 146.093 429.828 Sodium Chloride 0.9% 250 ml @ 0 MCG/MIN IV TITR PRN Rx#:[id number] Other 300 Other: # Bowel Movements 2 Stool Characteristics Liquid Liquid Black Black Green Green Active Medications: Current Medications Acetaminophen (Tylenol 650mg/20.3ml Suspension) 650 mg GT DAILY FOUZIA Stop: 10/03/17 08:59 Last Admin: 08/15/17 08:48 Dose: 650 mg Albuterol/Ipratropium (Duoneb Neb) 3 ml HHN Q4HRT FOUZIA Stop: 10/02/17 10:59 Last Admin: 08/15/17 07:24 Dose: 3 ml Ascorbic Acid (Vitamin C) 500 mg PO DAILY FOUZIA Stop: 10/03/17 08:59 Last Admin: 08/15/17 08:49 Dose: 500 mg Aspirin (Aspirin Chewable) 81 mg GT DAILY FOUZIA Stop: 10/03/17 08:59 Last Admin: 08/15/17 08:49 Dose: 81 mg Atorvastatin Calcium (Lipitor) 40 mg GT HS [facility] Stop: 10/03/17 20:59 Last Admin: 08/14/17 21:35 Dose: 40 mg Bisacodyl (Dulcolax 10 Mg Supp) 10 mg RC Q72HR PRN PRN Reason: IF MOM INEFFECTIVE Stop: 10/02/17 14:13 Chlorhexidine Gluconate (Peridex) 15 ml MM 0800,2000 FOUZIA Stop: 10/02/17 07:59 Last Admin: 08/14/17 21:35 Dose: 15 ml Cholecalciferol (Vitamin D3) 1,000 iu GT DAILY [facility] Stop: 10/03/17 08:59 Last Admin: 08/15/17 09:18 Dose: 1,000 iu Diltiazem HCl (Cardizem) 5 mg IVP Q4H PRN PRN Reason: INCREASE HEART RATE Stop: 10/01/17 21:59 Last Admin: 08/14/17 18:49 Dose: 5 mg Diphenoxylate HCl/Atropine (Lomotil) 1 tab PO TID FOUZIA Stop: 08/16/17 09:01 Last Admin: 08/15/17 08:50 Dose: 1 tab Docusate Sodium (Colace) 100 mg PO DAILY [facility] Stop: 10/03/17 08:59 Last Admin: 08/15/17 09:19 Dose: Not Given Heparin Sodium (Porcine) (Heparin) 5,000 units SUBQ Q12HR FOUZIA Stop: 10/11/17 20:59 Last Admin: 08/15/17 08:50 Dose: 5,000 units Dopamine HCl/Dextrose (Dopamine) 400 mg in 250 mls @ 0 mls/hr IV TITR PRN; Protocol; Per Protocol PRN Reason: BP MAINTENANCE (PER PROTOCOL) Stop: 10/02/17 07:47 Diltiazem HCl 125 mg/ Dextrose 125 mls @ 5 mls/hr IV TITR FOUZIA; 5 MG/HR PRN Reason: Protocol Stop: 10/11/17 11:44 Last Titration: 08/13/17 09:22 Dose: Infused Norepinephrine Bitartrate 8 mg (/ Sodium Chloride) 258 mls @ 0 mls/hr IV TITR PRN; Protocol; 0 MCG/MIN PRN Reason: BP MAINTENANCE (PER PROTOCOL) Stop: 10/12/17 10:59 Last Titration: 08/15/17 05:00 Dose: 14 mcg/min, 27.09 mls/hr Insulin Aspart (Novolog Insulin Sliding Scale) 0 units SUBQ Q6HR FOUZIA PRN Reason: Protocol Stop: 10/02/17 00:00 Last Admin: 08/15/17 07:17 Dose: 2 units Insulin Detemir (Levemir Insulin) 16 units SUBQ HS FOUZIA PRN Reason: Protocol Stop: 10/13/17 20:59 Last Admin: 08/14/17 21:44 Dose: 16 units Lactobacillus Rhamnosus (Culturelle 15b) 1 each PO DAILY FOUZIA Stop: 10/07/17 08:59 Last Admin: 08/15/17 08:49 Dose: 1 each Lorazepam (Ativan) 1 mg IVP Q2H PRN; Protocol PRN Reason: Restlessness Stop: 10/09/17 09:44 Last Admin: 08/15/17 06:08 Dose: 1 mg Magnesium Hydroxide (Milk Of Magnesia) 30 ml GT Q72H PRN PRN Reason: NO BM FOR THREE DAYS Stop: 10/02/17 14:13 Mirtazapine (Remeron) 15 mg GT HS FOUZIA PRN Reason: Protocol Stop: 10/02/17 20:59 Last Admin: 08/14/17 21:35 Dose: 15 mg Miscellaneous (Clinical Monitoring) 1 ea PRN PRN PRN Reason: RENAL Stop: 10/05/17 11:28 Miscellaneous (Zosyn Iv Per Pharmacy) 1 ea PRN PRN PRN Reason: PROTOCOL Stop: 10/05/17 15:59 Miscellaneous (Probiotic Screen) 1 ea PRN PRN PRN Reason: PROTOCOL Stop: 10/06/17 14:14 Multivitamins/Vitamin C (Theragran) 1 tab PO DAILY FOUZIA Stop: 10/03/17 08:59 Last Admin: 08/15/17 08:49 Dose: 1 tab Ondansetron HCl (Zofran Odt) 4 mg PO Q6HR PRN PRN Reason: Nausea / Vomiting Stop: 10/02/17 14:13 Last Admin: 08/09/17 08:41 Dose: 4 mg Pantoprazole Sodium (Protonix) 40 mg IVP DAILY [facility] Stop: 10/02/17 08:59 Last Admin: 08/15/17 09:19 Dose: 40 mg Simethicone (Mylicon) 80 mg GT Q6H PRN PRN Reason: GAS PAIN Stop: 10/02/17 14:13 Sodium Phosphate (Fleet Enema) 118 ml RC PRN PRN PRN Reason: IF MOM/DULCOLAX INEFFECTIVE Stop: 10/02/17 14:13 Zinc Sulfate (Zinc Sulfate) 220 mg GT DAILY [facility] Stop: 10/03/17 08:59 Last Admin: 08/15/17 09:19 Dose: 220 mg General: Alert, No acute distress (scattered rhonchi) HEENT: Atraumatic, PERRLA, EOMI, Mucous membr. moist/pink Neck: Supple, Other (TRACH) Cardiovascular: Regular rate Lungs: Other (coarse rhonchi) Abdomen: Bowel sounds, Soft, Other (INTACT GT) Extremities: Edema (upper wxtrmities), Other (upper ext) Neurological: Sensation intact Skin: no Rash Psych/Mental Status: Mood NL - Procedures Procedures: Procedures Procedure Code Date BLOOD TRANSFUSION SERVICE 50261 08/02/17 EXCISION OF STOMACH, ENDO, DIAGN [id number] 07/10/17 INSPECTION OF LOWER INTESTINAL TRACT, ENDO [id number] 07/10/17 PERFORMANCE OF URINARY FILTRATION, <6 HRS/DAY [id number] 07/10/17 RESPIRATORY VENTILATION, GREATER THAN 96 CONSECUTIVE HOURS [id number] 08/02/17 TRANSFUSE NONAUT RED BLOOD CELLS IN PERIPH VEIN, PERC [id number] 08/02/17 Assessment/Plan - Assessment Assessment: 76 YO FEMALE WITH ANEMIA STOOL OB + NO OVERT GI BLEEDING BUT COULD BE SMALL BOWEL SOURCE RECENT EGD SHOWED GASTRITIS RECENT COLO SHOWED HEMORRHOIDS SBFT SHOWED REFLUX AND DELAYED TRANSIT WITHOUT OBSTRUCTION 1.FOLLOW H/H; TRANSFUSE PRN (TIMING WITH DIALYSIS) 2.IF GI BLEEDING OCCURS THEN GET BLEEDING SCAN VS ANGIOGRAPHY 3.WILL SEE NEEDED; CALL IF QUESTIONS
[2017-08-15 11:59] LABS: ANION GAP 16.1 (7.0-16.0); BUN - UREA NITROGEN 54 mg/dL (7-25); CARBON DIOXIDE 24.3 mEq/L (21.0-31.0); CHLORIDE 96 mEq/L (98-107); CREATININE - SERUM 3.1 mg/dL (0.6-1.2); GLUCOSE 169 mg/dL (70-105); POTASSIUM SERUM 3.4 mEq/L (3.5-5.1); SODIUM SERUM 133 mEq/L (136-145)
--- NOTE | 2017-08-15 16:48 | General Progress Note ---
Subjective - Review of Systems Service Date: 08/15/17 Subjective: more quiet, on vent Objective - Results Result Diagrams: 08/15/17 07:50 08/15/17 05:45 Recent Labs: Laboratory Last Values WBC 13.1 Th/cmm (4.8-10.8) H 08/15/17 07:50 RBC 1.90 Mil/cmm (3.80-5.20) L 08/15/17 07:50 Hgb 6.1 gm/dL (12-16) L* 08/15/17 07:50 Hct 17.9 % (41.0-60) L* 08/15/17 07:50 MCV 94.0 fl (81-100) 08/15/17 07:50 MCH 31.9 pg (27.0-31.0) H 08/15/17 07:50 MCHC Differential 33.9 pg (28.0-36.0) 08/15/17 07:50 RDW 17.0 % (11.5-20.0) 08/15/17 07:50 Plt Count 324 Th/cmm (150-400) 08/15/17 07:50 MPV 10.7 fl 08/15/17 07:50 Neutrophils % 83.6 % (40.0-80.0) H 08/15/17 07:50 Band Neutrophils % 4 % (0-10) 08/11/17 04:45 Lymphocytes % 5.1 % (20.0-50.0) L 08/15/17 07:50 Monocytes % 10.3 % (2.0-10.0) H 08/15/17 07:50 Eosinophils % 1.0 % (0.0-5.0) 08/15/17 07:50 Basophils % 0.0 % (0.0-2.0) 08/15/17 07:50 Neutrophils (Manual) 81 % (40-80) H 08/11/17 04:45 Lymphocytes 8 % (20-50) L 08/11/17 04:45 Monocytes 3 % (2-10) 08/11/17 04:45 Eosinophils 4 % (0-5) 08/11/17 04:45 Basophils 1 % (0-3) 08/07/17 05:45 Hypochromia 1+ 08/02/17 15:37 Platelet Estimate ADEQUATE (NORMAL) 08/11/17 04:45 Platelet Morphology NORMAL (NORMAL) 08/02/17 15:37 Anisocytosis 1+ 08/07/17 05:45 Crenated Cell 2+ 08/02/17 15:37 RBC Morph Micro Appear ABNORMAL (NORMAL) 08/02/17 15:37 PT 12.9 SECONDS (9.5-11.5) H 08/02/17 13:58 INR 1.23 (0.5-1.4) 08/02/17 13:58 PTT (Actin FS) 33.6 SECONDS (26.0-38.0) 08/02/17 13:58 Specimen Source Arterial 08/03/17 08:58 Sample Site Right Radial 08/03/17 08:58 pH 7.42 (7.35-7.45) 08/03/17 08:58 pCO2 37.0 mmHg (35.0-45.0) 08/03/17 08:58 pO2 204.0 mmHg (80.0-100.0) H 08/03/17 08:58 HCO3 24.8 mEq/L (20.0-26.0) 08/03/17 08:58 Base Excess -0.2 mEq/L (-3.0-3.0) 08/03/17 08:58 O2 Saturation 100.0 % (92.0-100.0) 08/03/17 08:58 Rhett Test Positive 08/03/17 08:58 Vent Rate 12 08/03/17 08:58 Inspired O2 60 08/03/17 08:58 Tidal Volume 450 08/03/17 08:58 PEEP 5 08/03/17 08:58 Pressure (ins/psv/peep) NA 08/03/17 08:58 Critical Value LZHANG 08/03/17 08:58 Sodium 133 mEq/L (136-145) L 08/15/17 05:45 Potassium 3.4 mEq/L (3.5-5.1) L 08/15/17 05:45 Chloride 96 mEq/L (98-107) L 08/15/17 05:45 Carbon Dioxide 24.3 mEq/L (21.0-31.0) 08/15/17 05:45 Anion Gap 16.1 (7.0-16.0) H 08/15/17 05:45 BUN 54 mg/dL (7-25) H 08/15/17 05:45 Creatinine 3.1 mg/dL (0.6-1.2) H 08/15/17 05:45 Est GFR ( Amer) TNP 08/15/17 05:45 Est GFR (Non-Af Amer) TNP 08/15/17 05:45 BUN/Creatinine Ratio 17.4 08/15/17 05:45 Glucose 169 mg/dL (70-105) H 08/15/17 05:45 POC Glucose 206 MG/DL (70 - 105) H 08/15/17 12:30 Hemoglobin A1c % 7.7 % (4.0-6.0) H 08/02/17 15:37 Whole Bld Lactic Acid 1.97 mmol/L (0.60-1.99) 08/02/17 13:49 Calcium 9.0 mg/dL (8.6-10.3) 08/15/17 05:45 Magnesium 1.7 mg/dL (1.9-2.7) L 08/10/17 04:30 Iron 10 ug/dL (27-139) L 08/02/17 13:56 TIBC 135 ug/dL (250-450) L 08/02/17 13:56 Iron Saturation 7 % (15-55) L 08/02/17 13:56 Unsaturated IBC 125 ug/dL (118-369) 08/02/17 13:56 Ferritin 588 ng/mL (15-150) H 08/02/17 13:56 Total Bilirubin 0.6 mg/dL (0.3-1.0) 08/09/17 06:34 Direct Bilirubin 0.09 mg/dL (0.0-0.2) 08/02/17 13:57 AST 21 U/L (13-39) 08/09/17 06:34 ALT 12 U/L (7-52) 08/09/17 06:34 Alkaline Phosphatase 91 U/L (34-104) 08/09/17 06:34 Troponin I 1.16 ng/mL (0.01-0.05) H* D 08/04/17 06:30 B-Natriuretic Peptide 372.0 pg/mL (5.0-100.0) H 08/05/17 06:15 Total Protein 6.4 gm/dL (6.0-8.3) 08/09/17 06:34 Albumin 2.9 gm/dL (3.7-5.3) L 08/09/17 06:34 Globulin 3.5 gm/dL 08/09/17 06:34 Albumin/Globulin Ratio 0.8 (1.0-1.8) L 08/09/17 06:34 Triglycerides 132 mg/dL (<150) 08/04/17 06:30 Cholesterol 55 mg/dL (<200) 08/04/17 06:30 LDL Cholesterol Direct 16 mg/dL (75-193) L 08/04/17 06:30 HDL Cholesterol 13 mg/dL (23-92) L 08/04/17 06:30 Amylase 12 U/L (29-103) L 08/02/17 13:43 Lipase 4 U/L (11-82) L 08/02/17 13:43 TSH 3.74 uIU/ml (0.34-5.60) 08/04/17 06:30 Stool Occult Blood POSITIVE (NEGATIVE) H 08/03/17 17:50 Random Vancomycin 14.8 ug/mL (5.0-40.0) 08/09/17 06:34 Hepatitis A IgM Ab Negative (Negative) 08/08/17 08:15 Hep Bs Antigen Negative (Negative) 08/08/17 08:15 Hep B Core IgM Ab Negative (Negative) 08/08/17 08:15 Hepatitis C Antibody <0.1 s/co ratio (0.0-0.9) 08/08/17 08:15 Blood Type A POSITIVE 08/15/17 07:50 Antibody Screen POSITIVE 08/15/17 07:50 Antibody Identification Anti-K 08/15/17 07:50 NEVILLE, IgG Interpret NEGATIVE 08/15/17 07:50 Crossmatch See Detail 08/15/17 07:50 - Physical Exam Vitals and I&O: Vital Signs Temp 99.6 F 08/15/17 14:00 Pulse 84 08/15/17 15:52 Resp 16 08/15/17 14:00 BP 103/26 08/15/17 15:15 Pulse Ox 100 08/15/17 15:52 Intake & Output 08/14/17 08/15/17 08/15/17 18:59 06:59 18:59 Intake Total 146.093 729.828 86.172 Balance 146.093 729.828 86.172 Weight (lbs) 94.801 kg Intake: Intake, IV Amount 146.093 429.828 86.172 Norepinephrine 8 mg In 146.093 429.828 86.172 Sodium Chloride 0.9% 250 ml @ 0 MCG/MIN IV TITR PRN Rx#:[id number] Other 300 Other: # Bowel Movements 2 Stool Characteristics Liquid Liquid Black Black Green Green Active Medications: Current Medications Acetaminophen (Tylenol 650mg/20.3ml Suspension) 650 mg GT DAILY FOUZIA Stop: 10/03/17 08:59 Last Admin: 08/15/17 08:48 Dose: 650 mg Albuterol/Ipratropium (Duoneb Neb) 3 ml HHN Q4HRT FOUZIA Stop: 10/02/17 10:59 Last Admin: 08/15/17 15:52 Dose: 3 ml Ascorbic Acid (Vitamin C) 500 mg PO DAILY FOUZIA Stop: 10/03/17 08:59 Last Admin: 08/15/17 08:49 Dose: 500 mg Aspirin (Aspirin Chewable) 81 mg GT DAILY FOUZIA Stop: 10/03/17 08:59 Last Admin: 08/15/17 08:49 Dose: 81 mg Atorvastatin Calcium (Lipitor) 40 mg GT HS REPLACED BY [facility] Stop: 10/03/17 20:59 Last Admin: 08/14/17 21:35 Dose: 40 mg Bisacodyl (Dulcolax 10 Mg Supp) 10 mg RC Q72HR PRN PRN Reason: IF MOM INEFFECTIVE Stop: 10/02/17 14:13 Chlorhexidine Gluconate (Peridex) 15 ml MM 0800,2000 FOUZIA Stop: 10/02/17 07:59 Last Admin: 08/15/17 08:30 Dose: 15 ml Cholecalciferol (Vitamin D3) 1,000 iu GT DAILY FOUZIA Stop: 10/03/17 08:59 Last Admin: 08/15/17 09:18 Dose: 1,000 iu Diltiazem HCl (Cardizem) 5 mg IVP Q4H PRN PRN Reason: INCREASE HEART RATE Stop: 10/01/17 21:59 Last Admin: 08/14/17 18:49 Dose: 5 mg Diphenoxylate HCl/Atropine (Lomotil) 1 tab PO TID FOUZIA Stop: 08/16/17 09:01 Last Admin: 08/15/17 08:50 Dose: 1 tab Docusate Sodium (Colace) 100 mg PO DAILY REPLACED BY [facility] Stop: 10/03/17 08:59 Last Admin: 08/15/17 09:19 Dose: Not Given Heparin Sodium (Porcine) (Heparin) 5,000 units SUBQ Q12HR REPLACED BY [facility] Stop: 10/11/17 20:59 Last Admin: 08/15/17 08:50 Dose: 5,000 units Dopamine HCl/Dextrose (Dopamine) 400 mg in 250 mls @ 0 mls/hr IV TITR PRN; Protocol; Per Protocol PRN Reason: BP MAINTENANCE (PER PROTOCOL) Stop: 10/02/17 07:47 Diltiazem HCl 125 mg/ Dextrose 125 mls @ 5 mls/hr IV TITR FOUZIA; 5 MG/HR PRN Reason: Protocol Stop: 10/11/17 11:44 Last Titration: 08/13/17 09:22 Dose: Infused Norepinephrine Bitartrate 8 mg (/ Sodium Chloride) 258 mls @ 0 mls/hr IV TITR PRN; Protocol; 0 MCG/MIN PRN Reason: BP MAINTENANCE (PER PROTOCOL) Stop: 10/12/17 10:59 Last Admin: 08/15/17 15:53 Dose: 14 mcg/min, 27.09 mls/hr Piperacillin Sod/Tazobactam (Sod 2.25 gm/ Sodium Chloride) 50 mls @ 100 mls/hr IV Q8HR REPLACED BY [facility] Stop: 08/18/17 13:29 Insulin Aspart (Novolog Insulin Sliding Scale) 0 units SUBQ Q6HR FOUZIA PRN Reason: Protocol Stop: 10/02/17 00:00 Last Admin: 08/15/17 13:14 Dose: 4 units Insulin Detemir (Levemir Insulin) 16 units SUBQ HS FOUZIA PRN Reason: Protocol Stop: 10/13/17 20:59 Last Admin: 08/14/17 21:44 Dose: 16 units Lactobacillus Rhamnosus (Culturelle 15b) 1 each PO DAILY REPLACED BY [facility] Stop: 10/07/17 08:59 Last Admin: 08/15/17 08:49 Dose: 1 each Lorazepam (Ativan) 1 mg IVP Q2H PRN; Protocol PRN Reason: Restlessness Stop: 10/09/17 09:44 Last Admin: 08/15/17 06:08 Dose: 1 mg Magnesium Hydroxide (Milk Of Magnesia) 30 ml GT Q72H PRN PRN Reason: NO BM FOR THREE DAYS Stop: 10/02/17 14:13 Mirtazapine (Remeron) 15 mg GT HS FOUZIA PRN Reason: Protocol Stop: 10/02/17 20:59 Last Admin: 08/14/17 21:35 Dose: 15 mg Miscellaneous (Clinical Monitoring) 1 ea PRN PRN PRN Reason: RENAL Stop: 10/05/17 11:28 Miscellaneous (Zosyn Iv Per Pharmacy) 1 ea PRN PRN PRN Reason: PROTOCOL Stop: 10/05/17 15:59 Miscellaneous (Probiotic Screen) 1 [facility] PRN PRN PRN Reason: PROTOCOL Stop: 10/06/17 14:14 Multivitamins/Vitamin C (Theragran) 1 tab PO DAILY FOUZIA Stop: 10/03/17 08:59 Last Admin: 08/15/17 08:49 Dose: 1 tab Ondansetron HCl (Zofran Odt) 4 mg PO Q6HR PRN PRN Reason: Nausea / Vomiting Stop: 10/02/17 14:13 Last Admin: 08/09/17 08:41 Dose: 4 mg Pantoprazole Sodium (Protonix) 40 mg IVP DAILY FOUZIA Stop: 10/02/17 08:59 Last Admin: 08/15/17 09:19 Dose: 40 mg Simethicone (Mylicon) 80 mg GT Q6H PRN PRN Reason: GAS PAIN Stop: 10/02/17 14:13 Sodium Phosphate (Fleet Enema) 118 ml RC PRN PRN PRN Reason: IF MOM/DULCOLAX INEFFECTIVE Stop: 10/02/17 14:13 Zinc Sulfate (Zinc Sulfate) 220 mg GT DAILY FOUZIA Stop: 10/03/17 08:59 Last Admin: 08/15/17 09:19 Dose: 220 mg General: Alert, No acute distress (scattered rhonchi) HEENT: Atraumatic, PERRLA, EOMI, Mucous membr. moist/pink Neck: Supple, Other (TRACH) Cardiovascular: Regular rate Lungs: Other (coarse rhonchi) Abdomen: Bowel sounds, Soft, Other (INTACT GT) Extremities: Edema (upper wxtrmities), Other (upper ext) Neurological: Sensation intact Skin: no Rash Psych/Mental Status: Mood NL - Procedures Procedures: Procedures Procedure Code Date BLOOD TRANSFUSION SERVICE 07705 08/02/17 EXCISION OF STOMACH, ENDO, DIAGN [id number] 07/10/17 INSPECTION OF LOWER INTESTINAL TRACT, ENDO [id number] 07/10/17 PERFORMANCE OF URINARY FILTRATION, <6 HRS/DAY [id number] 07/10/17 RESPIRATORY VENTILATION, GREATER THAN 96 CONSECUTIVE HOURS [id number] 08/02/17 TRANSFUSE NONAUT RED BLOOD CELLS IN PERIPH VEIN, PERC 06376C2 08/02/17 Assessment/Plan - Assessment Assessment: 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/L UE Edema, Cellulitis Shock Sepsis RF on Vent Acute on Chronic Decomp CHF G (-) Septicemia - Plan Plan: Lab - Result Diagrams 08/04/17 06:30 08/04/17 06:30 Current Medications Acetaminophen (Tylenol 650mg/20.3ml Suspension) 650 mg GT DAILY REPLACED BY [facility] Stop: 10/03/17 08:59 Last Admin: 08/04/17 09:18 Dose: 650 mg Albuterol/Ipratropium (Duoneb Neb) 3 ml HHN Q4HRT FOUZIA Stop: 10/02/17 10:59 Last Admin: 08/04/17 11:25 Dose: 3 ml Ascorbic Acid (Vitamin C) 500 mg PO DAILY FOUZIA Stop: 10/03/17 08:59 Last Admin: 08/04/17 09:18 Dose: 500 mg Aspirin (Aspirin Chewable) 81 mg GT DAILY FOUZIA Stop: 10/03/17 08:59 Last Admin: 08/04/17 09:18 Dose: 81 mg Atorvastatin Calcium (Lipitor) 40 mg GT HS FOUZIA PRN Reason: Protocol Stop: 10/02/17 20:59 Last Admin: 08/03/17 20:19 Dose: 40 mg Bisacodyl (Dulcolax 10 Mg Supp) 10 mg RC Q72HR PRN PRN Reason: IF MOM INEFFECTIVE Stop: 10/02/17 14:13 Bisacodyl (Dulcolax 10 Mg Supp) 10 mg RC PRN PRN PRN Reason: IF MOM INEFFECTIVE Stop: 10/02/17 14:13 Chlorhexidine Gluconate (Peridex) 15 ml MM 0800,2000 REPLACED BY [facility] Stop: 10/02/17 07:59 Last Admin: 08/04/17 08:00 Dose: 15 ml Cholecalciferol (Vitamin D3) 1,000 iu GT DAILY REPLACED BY [facility] Stop: 10/03/17 08:59 Last Admin: 08/04/17 09:18 Dose: 1,000 iu Diltiazem HCl (Cardizem) 5 mg IVP Q4H PRN PRN Reason: INCREASE HEART RATE Stop: 10/01/17 21:59 Last Admin: 08/03/17 01:38 Dose: 5 mg Docusate Sodium (Colace) 100 mg PO DAILY REPLACED BY [facility] Stop: 10/03/17 08:59 Last Admin: 08/04/17 09:18 Dose: 100 mg Heparin Sodium (Porcine) (Heparin) 5,000 units HD UD REPLACED BY [facility] Stop: 08/05/17 08:59 Last Admin: 08/04/17 09:19 Dose: Not Given Fluconazole (Diflucan) 200 mg in 100 mls @ 100 mls/hr IV Q24HR REPLACED BY [facility] Stop: 10/02/17 14:59 Last Infusion: 08/03/17 15:40 Dose: Infused Meropenem 500 mg/ Sodium (Chloride) 100 mls @ 100 mls/hr IV Q24H REPLACED BY [facility] Stop: 10/02/17 12:59 Last Admin: 08/04/17 13:17 Dose: 100 mls/hr Dopamine HCl/Dextrose (Dopamine) 400 mg in 250 mls @ 0 mls/hr IV TITR PRN; Protocol; Per Protocol PRN Reason: BP MAINTENANCE (PER PROTOCOL) Stop: 10/02/17 07:47 Norepinephrine Bitartrate 4 mg (/ Dextrose) 254 mls @ 0 mls/hr IV TITR PRN; Protocol; Per Protocol PRN Reason: BP MAINTENANCE (PER PROTOCOL) Stop: 10/02/17 08:31 Last Admin: 08/03/17 23:47 Dose: 4 mcg/min, 15.24 mls/hr Colistimethate Sodium 80 mg/ (Sodium Chloride) 100 mls @ 100 mls/hr IV Q36H REPLACED BY [facility] Stop: 10/02/17 20:59 Last Infusion: 08/03/17 21:20 Dose: Infused Insulin Aspart (Novolog Insulin Sliding Scale) 0 units SUBQ Q6HR FOUZIA PRN Reason: Protocol Stop: 10/02/17 00:00 Last Admin: 08/04/17 11:30 Dose: 6 units Lorazepam (Ativan) 1 mg IVP Q2HR PRN; Protocol PRN Reason: Restlessness Stop: 10/01/17 21:18 Last Admin: 08/04/17 01:05 Dose: 1 mg Magnesium Hydroxide (Milk Of Magnesia) 30 ml GT Q72H PRN PRN Reason: NO BM FOR THREE DAYS Stop: 10/02/17 14:13 Mirtazapine (Remeron) 15 mg GT HS FOUZIA PRN Reason: Protocol Stop: 10/02/17 20:59 Last Admin: 08/03/17 20:19 Dose: 15 mg Miscellaneous (Vancomycin Iv Per Pharmacy) 1 ea PRN PRN PRN Reason: PROTOCOL Stop: 10/01/17 20:42 Miscellaneous (Zosyn Iv Per Pharmacy) 1 [facility] PRN PRN PRN Reason: PROTOCOL Stop: 10/01/17 20:42 Multivitamins/Vitamin C (Theragran) 1 tab PO DAILY FOUZIA Stop: 10/03/17 08:59 Last Admin: 08/04/17 09:18 Dose: 1 tab Ondansetron HCl (Zofran Odt) 4 mg PO Q6HR PRN PRN Reason: Nausea / Vomiting Stop: 10/02/17 14:13 Pantoprazole Sodium (Protonix) 40 mg IVP DAILY FOUZIA Stop: 10/02/17 08:59 Last Admin: 08/04/17 09:18 Dose: 40 mg Simethicone (Mylicon) 80 mg GT Q6H PRN PRN Reason: GAS PAIN Stop: 10/02/17 14:13 Sodium Phosphate (Fleet Enema) 118 ml RC PRN PRN PRN Reason: IF MOM/DULCOLAX INEFFECTIVE Stop: 10/02/17 14:13 Temazepam (Restoril) 15 mg GT HS PRN; Protocol PRN Reason: Insomnia Stop: 10/02/17 14:13 Last Admin: 08/03/17 20:19 Dose: 15 mg Zinc Sulfate (Zinc Sulfate) 220 mg GT DAILY FOUZIA Stop: 10/03/17 08:59 Last Admin: 08/04/17 09:18 Dose: 220 Lab - Result Diagrams 08/15/17 07:50 08/15/17 05:45 Schedule for HD today & in am Venous & Arterial duplex scans were negative for DVT or clots CXR still showed persistent b/l effusions, CHF replace K f/u electrolytes. cbc Reccurence of shock, on levo 10 mcg BS better Nutritional Asmnt/Malnutr-PDOC - Dietary Evaluation Malnutrition Findings (Please click <Entered> for more info): Nutritional Asmnt/Malnutrition Start: 08/05/17 15: 53 Text: Status: Complete Freq: Document 08/05/17 15:53 LCHENG (Rec: 08/05/17 16:19 LCHENG [id number]) Nutritional Asmnt/Malnutrition Patient General Information Nutritional Screening High Risk Diagnosis sepsis, respiratory failure, ESRD Pertinent Medical Hx/Surgical Hx ESRD on HD, respiratory failure with tracheostomy, dysphagia, a fib, anemia, HTN, GERD Subjective Information Pt on vent, not able to interview. Pt was on TF Novosource Renal 30ml/hr continuous, NPO today for surgery. Pt has dialysis ordred per nurse note. Current Diet Order/ Nutrition Support NPO on 08/05 Pertinent Medications vit C, vit D3, colace, novolog , remeron, theragran, protonix , zinc Pertinent Labs 08/05 Na 134, K 3.6, Cl 102, BUN 77, Cr 4.2, Glucose 216, POC 224-233 08/02 A1c 7.7 Nutritional Hx/Data Height 1.6 m Height (Calculated Centimeters) 160.0 Current Weight (lbs) 87.543 kg Weight (Calculated Kilograms) 87.5 Weight (Calculated Grams) 78979.3 [place] Body Weight 115 Body Mass Index (BMI) 34.2 Weight Status Obese GI Symptoms GI Symptoms None Last BM 08/04 Difficult in: None Skin Integrity/Comment: reddened to left/right inner thigh, right lateral index finger, right/left arm; skin tear to left abdominal fold; pressure area to coccy/sacral Estimated Nutritional Goals BEE in Kcals: Adj wt of IBW Calories/Kcals/Kg 30-35 adj wt 61kg Kcals Calculated 2439-1251 Protein: Adj wt of IBW Protein g/k.2-1.4 Protein Calculated 73-85 Fluid: ml 1830-2135ml (1ml/kcal) Nutritional Problem 1. Problem Problem altered nutrition related lab values Etiology hx of ESRD, endocrine dysfunction Signs/Symptoms: BUN 77, Cr 4.2, Glucose 216, POC 224-233, A1c 7.7 Malnutrition Alert Protein-Calorie Malnutrition N/A Is there a minimum of two criteria No selected? Query Text:Check all the applicable criteria. A minimum of two criteria are recommended for diagnosis of either severe or non-severe malnutrition. Intervention/Recommendation Comments 1. Resume TF Novosource Renal 30ml/hr continuous as ordered. increase to goal rate of 40ml /hr continuous as tolerated. This will provide 1920kcal, 87g protein and 688ml free water, meeting 100% of nutritional needs 2. Monitor TF rate, tolerance, wt weekly, skin integrity and labs 3. F/U as high risk in 2-3 days, 08/07-08/08 Expected Outcomes/Goals Expected Outcomes/Goals 1. Pt to meet at least 75% of nutritional needs via nutrition support with tolerance 2. Wt stability, skin to remain intact, labs to approach WNL.
[2017-08-15] MEDS: Piperacillin/Tazobact 2.25 gm in 0.9% NS 50 ML IV SCH ×2 (18:29→20:31)
[2017-08-15] MEDS: Insulin Detemir 100 units/mL 10mL Vial SUBQ SCH (20:17)
[2017-08-15] MEDS: Diltiazem 5 mg/mL 5mL Vial IVP PRN (20:50)
[2017-08-16] MEDS: INSULIN ASPART SLIDING SCALE 100 UNITS/ML UNIT SUBQ SCH ×4 (00:15→18:47)
[2017-08-16] MEDS: Albuterol/Ipratropium Neb 3 ML AERS HHN SCH ×6 (02:32→22:41)
[2017-08-16] MEDS: Piperacillin/Tazobact 2.25 gm in 0.9% NS 50 ML IV SCH ×2 (05:59→12:43)
[2017-08-16 07:04] LABS: % BASOPHILS 1.1 % (0.0-2.0); % EOSINOPHILS 2.5 % (0.0-5.0); % MONOCYTES 10.7 % (2.0-10.0); % NEUTROPHILS 80.7 % (40.0-80.0); BASOPHILE ABSOLUTE 0.1 Th/cumm (0-0.2); EOSINOPHILE ABSOLUTE 0.3 Th/cmm (0.1-0.4); LYMPHOCYTE ABSOLUTE 0.6 Th/cmm (1.5-3.0); MEAN CELL VOLUME 90.6 fl (81-100); MEAN CORPUSCULAR HEMOGLOBIN 31.1 pg (27.0-31.0); MEAN CORPUSCULAR HGB CONC 34.4 pg (28.0-36.0); MEAN PLATELET VOLUME 10.6 fl; MONOCYTE ABSOLUTE 1.2 Th/cmm (0.3-1.0); PLATELET COUNT 290 Th/cmm (150-400); RED BLOOD COUNT 2.57 Mil/cmm (3.80-5.20); RED CELL DISTRIBUTION WIDTH 15.6 % (11.5-20.0); WHITE BLOOD COUNT 11.2 Th/cmm (4.8-10.8)
[2017-08-16 07:11] LABS: ANION GAP 13.8 (7.0-16.0); BUN - UREA NITROGEN 45 mg/dL (7-25); CALCIUM SERUM 8.3 mg/dL (8.6-10.3); CARBON DIOXIDE 27.5 mEq/L (21.0-31.0); CHLORIDE 97 mEq/L (98-107); CREATININE - SERUM 2.6 mg/dL (0.6-1.2); GLUCOSE 165 mg/dL (70-105); POTASSIUM SERUM 3.3 mEq/L (3.5-5.1); SODIUM SERUM 135 mEq/L (136-145)
[2017-08-16 07:22] LABS: HEMATOCRIT 23.3 % (41.0-60)
[2017-08-16] MEDS: Aspirin 81mg Chewable Tab GT SCH (09:34)
[2017-08-16] MEDS: Multivitamin Tab PO SCH (09:35)
[2017-08-16] MEDS: Lactobacillus Rhamnosus GG 15 Billion CFU CAP.SPRINK PO SCH (09:35)
[2017-08-16] MEDS: Diphenoxylate/Atropine 2.5mg Tab PO SCH (09:35)
[2017-08-16] MEDS ORDERED: Potassium Chloride Elixir 20 mEq /15 mL UDC GT ONE (10:15)
--- NOTE | 2017-08-16 11:22 | Infectious Disease Prog Note ---
Infectious Disease Subjective - Review of Systems Service Date: 08/16/17 Subjective: no fever. Infectious Disease Objective - Results Result Diagrams: 08/16/17 06:22 08/16/17 06:22 Recent Labs: Laboratory Last Values WBC 11.2 Th/cmm (4.8-10.8) H 08/16/17 06:22 RBC 2.57 Mil/cmm (3.80-5.20) L 08/16/17 06:22 Hgb 8.0 gm/dL (12-16) L 08/16/17 06:22 Hct 23.3 % (41.0-60) L D 08/16/17 06:22 MCV 90.6 fl (81-100) 08/16/17 06:22 MCH 31.1 pg (27.0-31.0) H 08/16/17 06:22 MCHC Differential 34.4 pg (28.0-36.0) 08/16/17 06:22 RDW 15.6 % (11.5-20.0) 08/16/17 06:22 Plt Count 290 Th/cmm (150-400) 08/16/17 06:22 MPV 10.6 fl 08/16/17 06:22 Neutrophils % 80.7 % (40.0-80.0) H 08/16/17 06:22 Band Neutrophils % 4 % (0-10) 08/11/17 04:45 Lymphocytes % 5.0 % (20.0-50.0) L 08/16/17 06:22 Monocytes % 10.7 % (2.0-10.0) H 08/16/17 06:22 Eosinophils % 2.5 % (0.0-5.0) 08/16/17 06:22 Basophils % 1.1 % (0.0-2.0) 08/16/17 06:22 Neutrophils (Manual) 81 % (40-80) H 08/11/17 04:45 Lymphocytes 8 % (20-50) L 08/11/17 04:45 Monocytes 3 % (2-10) 08/11/17 04:45 Eosinophils 4 % (0-5) 08/11/17 04:45 Basophils 1 % (0-3) 08/07/17 05:45 Hypochromia 1+ 08/02/17 15:37 Platelet Estimate ADEQUATE (NORMAL) 08/11/17 04:45 Platelet Morphology NORMAL (NORMAL) 08/02/17 15:37 Anisocytosis 1+ 08/07/17 05:45 Crenated Cell 2+ 08/02/17 15:37 RBC Morph Micro Appear ABNORMAL (NORMAL) 08/02/17 15:37 PT 12.9 SECONDS (9.5-11.5) H 08/02/17 13:58 INR 1.23 (0.5-1.4) 08/02/17 13:58 PTT (Actin FS) 33.6 SECONDS (26.0-38.0) 08/02/17 13:58 Specimen Source Arterial 08/03/17 08:58 Sample Site Right Radial 08/03/17 08:58 pH 7.42 (7.35-7.45) 08/03/17 08:58 pCO2 37.0 mmHg (35.0-45.0) 08/03/17 08:58 pO2 204.0 mmHg (80.0-100.0) H 08/03/17 08:58 HCO3 24.8 mEq/L (20.0-26.0) 08/03/17 08:58 Base Excess -0.2 mEq/L (-3.0-3.0) 08/03/17 08:58 O2 Saturation 100.0 % (92.0-100.0) 08/03/17 08:58 Rhett Test Positive 08/03/17 08:58 Vent Rate 12 08/03/17 08:58 Inspired O2 60 08/03/17 08:58 Tidal Volume 450 08/03/17 08:58 PEEP 5 08/03/17 08:58 Pressure (ins/psv/peep) NA 08/03/17 08:58 Critical Value LZHANG 08/03/17 08:58 Sodium 135 mEq/L (136-145) L 08/16/17 06:22 Potassium 3.3 mEq/L (3.5-5.1) L 08/16/17 06:22 Chloride 97 mEq/L (98-107) L 08/16/17 06:22 Carbon Dioxide 27.5 mEq/L (21.0-31.0) 08/16/17 06:22 Anion Gap 13.8 (7.0-16.0) 08/16/17 06:22 BUN 45 mg/dL (7-25) H 08/16/17 06:22 Creatinine 2.6 mg/dL (0.6-1.2) H 08/16/17 06:22 Est GFR ( Amer) TNP 08/16/17 06:22 Est GFR (Non-Af Amer) TNP 08/16/17 06:22 BUN/Creatinine Ratio 17.3 08/16/17 06:22 Glucose 165 mg/dL (70-105) H 08/16/17 06:22 POC Glucose 134 MG/DL (70 - 105) H 08/16/17 05:34 Hemoglobin A1c % 7.7 % (4.0-6.0) H 08/02/17 15:37 Whole Bld Lactic Acid 1.97 mmol/L (0.60-1.99) 08/02/17 13:49 Calcium 8.3 mg/dL (8.6-10.3) L 08/16/17 06:22 Magnesium 1.7 mg/dL (1.9-2.7) L 08/10/17 04:30 Iron 10 ug/dL (27-139) L 08/02/17 13:56 TIBC 135 ug/dL (250-450) L 08/02/17 13:56 Iron Saturation 7 % (15-55) L 08/02/17 13:56 Unsaturated IBC 125 ug/dL (118-369) 08/02/17 13:56 Ferritin 588 ng/mL (15-150) H 08/02/17 13:56 Total Bilirubin 0.6 mg/dL (0.3-1.0) 08/09/17 06:34 Direct Bilirubin 0.09 mg/dL (0.0-0.2) 08/02/17 13:57 AST 21 U/L (13-39) 08/09/17 06:34 ALT 12 U/L (7-52) 08/09/17 06:34 Alkaline Phosphatase 91 U/L (34-104) 08/09/17 06:34 Troponin I 1.16 ng/mL (0.01-0.05) H* D 08/04/17 06:30 B-Natriuretic Peptide 372.0 pg/mL (5.0-100.0) H 08/05/17 06:15 Total Protein 6.4 gm/dL (6.0-8.3) 08/09/17 06:34 Albumin 2.9 gm/dL (3.7-5.3) L 08/09/17 06:34 Globulin 3.5 gm/dL 08/09/17 06:34 Albumin/Globulin Ratio 0.8 (1.0-1.8) L 08/09/17 06:34 Triglycerides 132 mg/dL (<150) 08/04/17 06:30 Cholesterol 55 mg/dL (<200) 08/04/17 06:30 LDL Cholesterol Direct 16 mg/dL (75-193) L 08/04/17 06:30 HDL Cholesterol 13 mg/dL (23-92) L 08/04/17 06:30 Amylase 12 U/L (29-103) L 08/02/17 13:43 Lipase 4 U/L (11-82) L 08/02/17 13:43 TSH 3.74 uIU/ml (0.34-5.60) 08/04/17 06:30 Stool Occult Blood POSITIVE (NEGATIVE) H 08/03/17 17:50 Random Vancomycin 14.8 ug/mL (5.0-40.0) 08/09/17 06:34 Hepatitis A IgM Ab Negative (Negative) 08/08/17 08:15 Hep Bs Antigen Negative (Negative) 08/08/17 08:15 Hep B Core IgM Ab Negative (Negative) 08/08/17 08:15 Hepatitis C Antibody <0.1 s/co ratio (0.0-0.9) 08/08/17 08:15 Blood Type A POSITIVE 08/15/17 07:50 Antibody Screen POSITIVE 08/15/17 07:50 Antibody Identification Anti-K 08/15/17 07:50 NEVILLE, IgG Interpret NEGATIVE 08/15/17 07:50 Crossmatch See Detail 08/15/17 07:50 - Physical Exam Vitals and I&O: Vital Signs Temp 99.6 F 08/16/17 06:00 Pulse 95 08/16/17 11:15 Resp 16 08/16/17 07:00 BP 97/36 08/16/17 07:45 Pulse Ox 98 08/16/17 11:15 Intake & Output 08/15/17 08/16/17 08/16/17 18:59 06:59 18:59 Intake Total 86.172 1394.702 Output Total 6000 Balance 86.172 -4605.298 Weight (lbs) 94.801 kg Intake: Intake, IV Amount 86.172 344.702 Norepinephrine 8 mg In 86.172 294.702 Sodium Chloride 0.9% 250 ml @ 0 MCG/MIN IV TITR PRN Rx#:[id number] Piperacillin Sodium/ 50 Tazobact 2.25 gm In Sodium Chloride 0.9% 50 ml @ 100 mls/hr IV Q8HR FOUZIA Rx#:[id number] Tube Feeding 600 Other 450 Output: Hemodialysis 6000 Other: # Bowel Movements 1 Stool Characteristics Soft Black Green Active Medications: Current Medications Acetaminophen (Tylenol 650mg/20.3ml Suspension) 650 mg GT DAILY [facility] Stop: 10/03/17 08:59 Last Admin: 08/16/17 09:34 Dose: 650 mg Albuterol/Ipratropium (Duoneb Neb) 3 ml HHN Q4HRT FOUZIA Stop: 10/02/17 10:59 Last Admin: 08/16/17 11:14 Dose: 3 ml Ascorbic Acid (Vitamin C) 500 mg PO DAILY [facility]OU[facility] Stop: 10/03/17 08:59 Last Admin: 08/16/17 09:35 Dose: 500 mg Aspirin (Aspirin Chewable) 81 mg GT DAILY [facility]OU[facility] Stop: 10/03/17 08:59 Last Admin: 08/16/17 09:34 Dose: 81 mg Atorvastatin Calcium (Lipitor) 40 mg GT HS [facility] Stop: 10/03/17 20:59 Last Admin: 08/15/17 20:17 Dose: 40 mg Bisacodyl (Dulcolax 10 Mg Supp) 10 mg RC Q72HR PRN PRN Reason: IF MOM INEFFECTIVE Stop: 10/02/17 14:13 Chlorhexidine Gluconate (Peridex) 15 ml MM 0800,2000 [facility] Stop: 10/02/17 07:59 Last Admin: 08/15/17 20:16 Dose: 15 ml Cholecalciferol (Vitamin D3) 1,000 iu GT DAILY [facility] Stop: 10/03/17 08:59 Last Admin: 08/16/17 09:35 Dose: 1,000 iu Diltiazem HCl (Cardizem) 5 mg IVP Q4H PRN PRN Reason: INCREASE HEART RATE Stop: 10/01/17 21:59 Last Admin: 08/15/17 20:50 Dose: 5 mg Docusate Sodium (Colace) 100 mg PO DAILY [facility] Stop: 10/03/17 08:59 Last Admin: 08/15/17 09:19 Dose: Not Given Heparin Sodium (Porcine) (Heparin) 5,000 units SUBQ Q12HR FOUZIA Stop: 10/11/17 20:59 Last Admin: 08/16/17 09:35 Dose: 5,000 units Dopamine HCl/Dextrose (Dopamine) 400 mg in 250 mls @ 0 mls/hr IV TITR PRN; Protocol; Per Protocol PRN Reason: BP MAINTENANCE (PER PROTOCOL) Stop: 10/02/17 07:47 Diltiazem HCl 125 mg/ Dextrose 125 mls @ 5 mls/hr IV TITR FOUZIA; 5 MG/HR PRN Reason: Protocol Stop: 10/11/17 11:44 Last Titration: 08/13/17 09:22 Dose: Infused Norepinephrine Bitartrate 8 mg (/ Sodium Chloride) 258 mls @ 0 mls/hr IV TITR PRN; Protocol; 0 MCG/MIN PRN Reason: BP MAINTENANCE (PER PROTOCOL) Stop: 10/12/17 10:59 Last Titration: 08/16/17 06:20 Dose: 0 mcg/min, 0 mls/hr Piperacillin Sod/Tazobactam (Sod 2.25 gm/ Sodium Chloride) 50 mls @ 100 mls/hr IV Q8HR [facility] Stop: 08/18/17 13:29 Last Admin: 08/16/17 05:59 Dose: 100 mls/hr Insulin Aspart (Novolog Insulin Sliding Scale) 0 units SUBQ Q6HR FOUZIA PRN Reason: Protocol Stop: 10/02/17 00:00 Last Admin: 08/16/17 05:48 Dose: Not Given Insulin Detemir (Levemir Insulin) 16 units SUBQ HS FOUZIA PRN Reason: Protocol Stop: 10/13/17 20:59 Last Admin: 08/15/17 20:17 Dose: 16 units Lactobacillus Rhamnosus (Culturelle 15b) 1 each PO DAILY [facility] Stop: 10/07/17 08:59 Last Admin: 08/16/17 09:35 Dose: 1 each Lorazepam (Ativan) 1 mg IVP Q2H PRN; Protocol PRN Reason: Restlessness Stop: 10/09/17 09:44 Last Admin: 08/16/17 10:29 Dose: 1 mg Magnesium Hydroxide (Milk Of Magnesia) 30 ml GT Q72H PRN PRN Reason: NO BM FOR THREE DAYS Stop: 10/02/17 14:13 Mirtazapine (Remeron) 15 mg GT HS FOUZIA PRN Reason: Protocol Stop: 10/02/17 20:59 Last Admin: 08/15/17 20:17 Dose: 15 mg Miscellaneous (Clinical Monitoring) 1 ea PRN PRN PRN Reason: RENAL Stop: 10/05/17 11:28 Miscellaneous (Zosyn Iv Per Pharmacy) 1 [facility] PRN PRN PRN Reason: PROTOCOL Stop: 10/05/17 15:59 Miscellaneous (Probiotic Screen) 1 [facility] PRN PRN PRN Reason: PROTOCOL Stop: 10/06/17 14:14 Multivitamins/Vitamin C (Theragran) 1 tab PO DAILY [facility]OU[facility]IA Stop: 10/03/17 08:59 Last Admin: 08/16/17 09:35 Dose: 1 tab Ondansetron HCl (Zofran Odt) 4 mg PO Q6HR PRN PRN Reason: Nausea / Vomiting Stop: 10/02/17 14:13 Last Admin: 08/09/17 08:41 Dose: 4 mg Pantoprazole Sodium (Protonix) 40 mg IVP DAILY [facility] Stop: 10/02/17 08:59 Last Admin: 08/16/17 09:34 Dose: 40 mg Simethicone (Mylicon) 80 mg GT Q6H PRN PRN Reason: GAS PAIN Stop: 10/02/17 14:13 Sodium Phosphate (Fleet Enema) 118 ml RC PRN PRN PRN Reason: IF MOM/DULCOLAX INEFFECTIVE Stop: 10/02/17 14:13 Zinc Sulfate (Zinc Sulfate) 220 mg GT DAILY [facility]OU[facility]IA Stop: 10/03/17 08:59 Last Admin: 08/16/17 09:34 Dose: 220 mg General: no acute distress, well developed, well nourished HEENT: atraumatic, normocephalic, EOMI Neck: supple, thyromegaly, tracheostomy Cardiovascular: S1S2, regular Lungs: no clear to auscultation bilaterally, no clear to percussion Abdomen: soft, no tender, no hepatomegaly Extremities: no cyanosis, no clubbing, no edema Neurological: awake, alert - Procedures Procedures: Procedures Procedure Code Date BLOOD TRANSFUSION SERVICE 06575 08/02/17 EXCISION OF STOMACH, ENDO, DIAGN [id number] 07/10/17 INSPECTION OF LOWER INTESTINAL TRACT, ENDO [id number] 07/10/17 PERFORMANCE OF URINARY FILTRATION, <6 HRS/DAY [id number] 07/10/17 RESPIRATORY VENTILATION, GREATER THAN 96 CONSECUTIVE HOURS [id number] 08/02/17 TRANSFUSE NONAUT RED BLOOD CELLS IN PERIPH VEIN, PERC [id number] 08/02/17 Infectious Disease Assmt/Plan - Assessment Assessment: 1. Septic shock. improved. 2. Gram-negative negative bacteremia treated 3. Pneumonia. 4. 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 5. Diabetes mellitus type 2. 6. Obesity. - Plan Plan: Continue zosyn for few days.(total D9/10 days). Nutritional Asmnt/Malnutr-PDOC - Dietary Evaluation Malnutrition Findings (Please click <Entered> for more info): Nutritional Asmnt/Malnutrition Start: 08/05/17 15: 53 Text: Status: Complete Freq: Document 08/05/17 15:53 HEN (Rec: 08/05/17 16:19 HENG [id number]) Nutritional Asmnt/Malnutrition Patient General Information Nutritional Screening High Risk Diagnosis sepsis, respiratory failure, ESRD Pertinent Medical Hx/Surgical Hx ESRD on HD, respiratory failure with tracheostomy, dysphagia, a fib, anemia, HTN, GERD Subjective Information Pt on vent, not able to interview. Pt was on TF Novosource Renal 30ml/hr continuous, NPO today for surgery. Pt has dialysis ordred per nurse note. Current Diet Order/ Nutrition Support NPO on 08/05 Pertinent Medications vit C, vit D3, colace, novolog , remeron, theragran, protonix , zinc Pertinent Labs 08/05 Na 134, K 3.6, Cl 102, BUN 77, Cr 4.2, Glucose 216, POC 224-233 08/02 A1c 7.7 Nutritional Hx/Data Height 1.6 m Height (Calculated Centimeters) 160.0 Current Weight (lbs) 87.543 kg Weight (Calculated Kilograms) 87.5 Weight (Calculated Grams) 96014.3 [place] Body Weight 115 Body Mass Index (BMI) 34.2 Weight Status Obese GI Symptoms GI Symptoms None Last BM 08/04 Difficult in: None Skin Integrity/Comment: reddened to left/right inner thigh, right lateral index finger, right/left arm; skin tear to left abdominal fold; pressure area to coccy/sacral Estimated Nutritional Goals BEE in Kcals: Adj wt of IBW Calories/Kcals/Kg 30-35 adj wt 61kg Kcals Calculated 7441-5188 Protein: Adj wt of IBW Protein g/k.2-1.4 Protein Calculated 73-85 Fluid: ml 1830-2135ml (1ml/kcal) Nutritional Problem 1. Problem Problem altered nutrition related lab values Etiology hx of ESRD, endocrine dysfunction Signs/Symptoms: BUN 77, Cr 4.2, Glucose 216, POC 224-233, A1c 7.7 Malnutrition Alert Protein-Calorie Malnutrition N/A Is there a minimum of two criteria No selected? Query Text:Check all the applicable criteria. A minimum of two criteria are recommended for diagnosis of either severe or non-severe malnutrition. Intervention/Recommendation Comments 1. Resume TF Novosource Renal 30ml/hr continuous as ordered. increase to goal rate of 40ml /hr continuous as tolerated. This will provide 1920kcal, 87g protein and 688ml free water, meeting 100% of nutritional needs 2. Monitor TF rate, tolerance, wt weekly, skin integrity and labs 3. F/U as high risk in 2-3 days, 08/07-08/08 Expected Outcomes/Goals Expected Outcomes/Goals 1. Pt to meet at least 75% of nutritional needs via nutrition support with tolerance 2. Wt stability, skin to remain intact, labs to approach WNL.
[2017-08-16] MEDS: Chlorhexidine Gluconate 0.12% 15mL Mouthwash MM SCH ×2 (12:26→20:40)
[2017-08-16] MEDS: Insulin Detemir 100 units/mL 10mL Vial SUBQ SCH (22:00)
--- NOTE | 2017-08-16 22:04 | Progress Notes ---
DATE: 08/16/2017 SUBJECTIVE: The patient was seen in the room in intensive care unit. The patient has been off Levophed. The patient ____ ventilator. Otherwise, the patient appears to be in no acute distress. The patient is a poor historian. OBJECTIVE: VITAL SIGNS: Temperature 97.6, heart rate of 99, blood pressure 97/36, and 99% ____ 50% FiO2. HEENT: Head is atraumatic and normocephalic. Eyes: Bilateral conjunctivae are clear. Bilaterally pupils equally round and reactive. NECK: Supple. No JVD. The patient has a tracheostomy connected to ventilator. CARDIOVASCULAR: S1 and S2 without murmur. PULMONARY: DICTATION ENDS HERE. JOB# [id number]
[2017-08-17] MEDS: Piperacillin/Tazobact 2.25 gm in 0.9% NS 50 ML IV SCH ×4 (00:05→21:49)
[2017-08-17] MEDS: Albuterol/Ipratropium Neb 3 ML AERS HHN SCH ×6 (03:29→23:15)
[2017-08-17] MEDS: INSULIN ASPART SLIDING SCALE 100 UNITS/ML UNIT SUBQ SCH ×4 (06:21→18:26)
[2017-08-17 06:44] LABS: HEMATOCRIT 23.8 % (41.0-60); HEMOGLOBIN 8.3 gm/dL (12-16); MEAN CELL VOLUME 92.1 fl (81-100); MEAN CORPUSCULAR HEMOGLOBIN 31.9 pg (27.0-31.0); MEAN CORPUSCULAR HGB CONC 34.6 pg (28.0-36.0); MEAN PLATELET VOLUME 10.6 fl; PLATELET COUNT 227 Th/cmm (150-400); RED BLOOD COUNT 2.59 Mil/cmm (3.80-5.20); RED CELL DISTRIBUTION WIDTH 16.5 % (11.5-20.0); WHITE BLOOD COUNT 11.1 Th/cmm (4.8-10.8)
[2017-08-17 06:46] LABS: MANUAL DIFF REQUIRED? YES
[2017-08-17 07:10] LABS: ANION GAP 13.4 (7.0-16.0); BUN - UREA NITROGEN 33 mg/dL (7-25); CALCIUM SERUM 8.6 mg/dL (8.6-10.3); CARBON DIOXIDE 25.8 mEq/L (21.0-31.0); CHLORIDE 98 mEq/L (98-107); CREATININE - SERUM 2.1 mg/dL (0.6-1.2); GLUCOSE 240 mg/dL (70-105); POTASSIUM SERUM 3.2 mEq/L (3.5-5.1); SODIUM SERUM 134 mEq/L (136-145)
[2017-08-17 07:58] LABS: BASOPHIL 1 % (0-3); EOSINOPHIL 4 % (0-5); LYMPHOCYTE 7 % (20-50); MONOCYTE 5 % (2-10); NEUTROPHILS 83 % (40-80); PLATELET ESTIMATE ADEQUATE (NORMAL); TOTAL CELLS COUNTED 100
[2017-08-17] MEDS: Chlorhexidine Gluconate 0.12% 15mL Mouthwash MM SCH ×2 (08:00→19:46)
[2017-08-17] MEDS: Multivitamin Tab PO SCH (09:08)
[2017-08-17] MEDS: Aspirin 81mg Chewable Tab GT SCH (09:08)
[2017-08-17] MEDS: Lactobacillus Rhamnosus GG 15 Billion CFU CAP.SPRINK PO SCH (09:08)
--- NOTE | 2017-08-17 10:06 | General Progress Note ---
Subjective - Review of Systems Events since last encounter: patient on vent, no fever no acute distress Subjective: still on levophed Objective - Results Result Diagrams: 08/17/17 06:23 08/17/17 06:23 Recent Labs: Laboratory Last Values WBC 11.1 Th/cmm (4.8-10.8) H 08/17/17 06:23 RBC 2.59 Mil/cmm (3.80-5.20) L 08/17/17 06:23 Hgb 8.3 gm/dL (12-16) L 08/17/17 06:23 Hct 23.8 % (41.0-60) L 08/17/17 06:23 MCV 92.1 fl (81-100) 08/17/17 06:23 MCH 31.9 pg (27.0-31.0) H 08/17/17 06:23 MCHC Differential 34.6 pg (28.0-36.0) 08/17/17 06:23 RDW 16.5 % (11.5-20.0) 08/17/17 06:23 Plt Count 227 Th/cmm (150-400) 08/17/17 06:23 MPV 10.6 fl 08/17/17 06:23 Neutrophils % 80.7 % (40.0-80.0) H 08/16/17 06:22 Band Neutrophils % 4 % (0-10) 08/11/17 04:45 Lymphocytes % 5.0 % (20.0-50.0) L 08/16/17 06:22 Monocytes % 10.7 % (2.0-10.0) H 08/16/17 06:22 Eosinophils % 2.5 % (0.0-5.0) 08/16/17 06:22 Basophils % 1.1 % (0.0-2.0) 08/16/17 06:22 Neutrophils (Manual) 83 % (40-80) H 08/17/17 06:23 Lymphocytes 7 % (20-50) L 08/17/17 06:23 Monocytes 5 % (2-10) 08/17/17 06:23 Eosinophils 4 % (0-5) 08/17/17 06:23 Basophils 1 % (0-3) 08/17/17 06:23 Hypochromia 1+ 08/02/17 15:37 Platelet Estimate ADEQUATE (NORMAL) 08/17/17 06:23 Platelet Morphology NORMAL (NORMAL) 08/02/17 15:37 Anisocytosis 1+ 08/07/17 05:45 Crenated Cell 2+ 08/02/17 15:37 RBC Morph Micro Appear ABNORMAL (NORMAL) 08/02/17 15:37 PT 12.9 SECONDS (9.5-11.5) H 08/02/17 13:58 INR 1.23 (0.5-1.4) 08/02/17 13:58 PTT (Actin FS) 33.6 SECONDS (26.0-38.0) 08/02/17 13:58 Specimen Source Arterial 08/03/17 08:58 Sample Site Right Radial 08/03/17 08:58 pH 7.42 (7.35-7.45) 08/03/17 08:58 pCO2 37.0 mmHg (35.0-45.0) 08/03/17 08:58 pO2 204.0 mmHg (80.0-100.0) H 08/03/17 08:58 HCO3 24.8 mEq/L (20.0-26.0) 08/03/17 08:58 Base Excess -0.2 mEq/L (-3.0-3.0) 08/03/17 08:58 O2 Saturation 100.0 % (92.0-100.0) 08/03/17 08:58 Rhett Test Positive 08/03/17 08:58 Vent Rate 12 08/03/17 08:58 Inspired O2 60 08/03/17 08:58 Tidal Volume 450 08/03/17 08:58 PEEP 5 08/03/17 08:58 Pressure (ins/psv/peep) NA 08/03/17 08:58 Critical Value LZHANG 08/03/17 08:58 Sodium 134 mEq/L (136-145) L 08/17/17 06:23 Potassium 3.2 mEq/L (3.5-5.1) L 08/17/17 06:23 Chloride 98 mEq/L (98-107) 08/17/17 06:23 Carbon Dioxide 25.8 mEq/L (21.0-31.0) 08/17/17 06:23 Anion Gap 13.4 (7.0-16.0) 08/17/17 06:23 BUN 33 mg/dL (7-25) H 08/17/17 06:23 Creatinine 2.1 mg/dL (0.6-1.2) H 08/17/17 06:23 Est GFR ( Amer) TNP 08/17/17 06:23 Est GFR (Non-Af Amer) TNP 08/17/17 06:23 BUN/Creatinine Ratio 15.7 08/17/17 06:23 Glucose 240 mg/dL (70-105) H 08/17/17 06:23 POC Glucose 231 MG/DL (70 - 105) H 08/17/17 06:13 Hemoglobin A1c % 7.7 % (4.0-6.0) H 08/02/17 15:37 Whole Bld Lactic Acid 1.97 mmol/L (0.60-1.99) 08/02/17 13:49 Calcium 8.6 mg/dL (8.6-10.3) 08/17/17 06:23 Magnesium 1.7 mg/dL (1.9-2.7) L 08/10/17 04:30 Iron 10 ug/dL (27-139) L 08/02/17 13:56 TIBC 135 ug/dL (250-450) L 08/02/17 13:56 Iron Saturation 7 % (15-55) L 08/02/17 13:56 Unsaturated IBC 125 ug/dL (118-369) 08/02/17 13:56 Ferritin 588 ng/mL (15-150) H 08/02/17 13:56 Total Bilirubin 0.6 mg/dL (0.3-1.0) 08/09/17 06:34 Direct Bilirubin 0.09 mg/dL (0.0-0.2) 08/02/17 13:57 AST 21 U/L (13-39) 08/09/17 06:34 ALT 12 U/L (7-52) 08/09/17 06:34 Alkaline Phosphatase 91 U/L (34-104) 08/09/17 06:34 Troponin I 1.16 ng/mL (0.01-0.05) H* D 08/04/17 06:30 B-Natriuretic Peptide 372.0 pg/mL (5.0-100.0) H 08/05/17 06:15 Total Protein 6.4 gm/dL (6.0-8.3) 08/09/17 06:34 Albumin 2.9 gm/dL (3.7-5.3) L 08/09/17 06:34 Globulin 3.5 gm/dL 08/09/17 06:34 Albumin/Globulin Ratio 0.8 (1.0-1.8) L 08/09/17 06:34 Triglycerides 132 mg/dL (<150) 08/04/17 06:30 Cholesterol 55 mg/dL (<200) 08/04/17 06:30 LDL Cholesterol Direct 16 mg/dL (75-193) L 08/04/17 06:30 HDL Cholesterol 13 mg/dL (23-92) L 08/04/17 06:30 Amylase 12 U/L (29-103) L 08/02/17 13:43 Lipase 4 U/L (11-82) L 08/02/17 13:43 TSH 3.74 uIU/ml (0.34-5.60) 08/04/17 06:30 Stool Occult Blood POSITIVE (NEGATIVE) H 08/03/17 17:50 Random Vancomycin 14.8 ug/mL (5.0-40.0) 08/09/17 06:34 Hepatitis A IgM Ab Negative (Negative) 08/08/17 08:15 Hep Bs Antigen Negative (Negative) 08/08/17 08:15 Hep B Core IgM Ab Negative (Negative) 08/08/17 08:15 Hepatitis C Antibody <0.1 s/co ratio (0.0-0.9) 08/08/17 08:15 Blood Type A POSITIVE 08/15/17 07:50 Antibody Screen POSITIVE 08/15/17 07:50 Antibody Identification Anti-K 08/15/17 07:50 NEV[place], IgG Interpret NEGATIVE 08/15/17 07:50 Crossmatch See Detail 08/15/17 07:50 - Physical Exam Vitals and I&O: Vital Signs Temp 98.1 F 08/17/17 04:00 Pulse 86 08/17/17 09:20 Resp 16 08/17/17 07:00 BP 107/23 08/17/17 07:00 Pulse Ox 100 08/17/17 09:20 Intake & Output 08/16/17 08/17/17 08/17/17 17:59 06:59 18:59 Intake Total 39.668 Output Total Balance 39.668 Weight (lbs) Intake: Intake, IV Amount 39.668 Norepinephrine 8 mg In 39.668 Sodium Chloride 0.9% 250 ml @ 0 MCG/MIN IV TITR PRN Rx#:[id number] Piperacillin Sodium/ Tazobact 2.25 gm In Sodium Chloride 0.9% 50 ml @ 100 mls/hr IV Q8HR FOUZIA Rx#:[id number] Tube Feeding Other Output: Urine Hemodialysis Other Other: # Bowel Movements Stool Characteristics Active Medications: Current Medications Acetaminophen (Tylenol 650mg/20.3ml Suspension) 650 mg GT DAILY FOUZIA Stop: 10/03/17 08:59 Last Admin: 08/17/17 09:08 Dose: 650 mg Albuterol/Ipratropium (Duoneb Neb) 3 ml HHN Q4HRT FOUZIA Stop: 10/02/17 10:59 Last Admin: 08/17/17 07:00 Dose: 3 ml Ascorbic Acid (Vitamin C) 500 mg PO DAILY FOUZIA Stop: 10/03/17 08:59 Last Admin: 08/17/17 09:08 Dose: 500 mg Aspirin (Aspirin Chewable) 81 mg GT DAILY FOUZIA Stop: 10/03/17 08:59 Last Admin: 08/17/17 09:08 Dose: 81 mg Atorvastatin Calcium (Lipitor) 40 mg GT HS [facility] Stop: 10/03/17 20:59 Last Admin: 08/17/17 00:01 Dose: 40 mg Bisacodyl (Dulcolax 10 Mg Supp) 10 mg RC Q72HR PRN PRN Reason: IF MOM INEFFECTIVE Stop: 10/02/17 14:13 Chlorhexidine Gluconate (Peridex) 15 ml MM 0800,2000 FOUZIA Stop: 10/02/17 07:59 Last Admin: 08/17/17 08:00 Dose: 15 ml Cholecalciferol (Vitamin D3) 1,000 iu GT DAILY FOUZIA Stop: 10/03/17 08:59 Last Admin: 08/17/17 09:08 Dose: 1,000 iu Diltiazem HCl (Cardizem) 5 mg IVP Q4H PRN PRN Reason: INCREASE HEART RATE Stop: 10/01/17 21:59 Last Admin: 08/15/17 20:50 Dose: 5 mg Docusate Sodium (Colace) 100 mg PO DAILY FOUZIA Stop: 10/03/17 08:59 Last Admin: 08/17/17 09:17 Dose: Not Given Heparin Sodium (Porcine) (Heparin) 5,000 units SUBQ Q12HR FOUZIA Stop: 10/11/17 20:59 Last Admin: 08/17/17 09:08 Dose: 5,000 units Dopamine HCl/Dextrose (Dopamine) 400 mg in 250 mls @ 0 mls/hr IV TITR PRN; Protocol; Per Protocol PRN Reason: BP MAINTENANCE (PER PROTOCOL) Stop: 10/02/17 07:47 Diltiazem HCl 125 mg/ Dextrose 125 mls @ 5 mls/hr IV TITR FOUZIA; 5 MG/HR PRN Reason: Protocol Stop: 10/11/17 11:44 Last Titration: 08/13/17 09:22 Dose: Infused Norepinephrine Bitartrate 8 mg (/ Sodium Chloride) 258 mls @ 0 mls/hr IV TITR PRN; Protocol; 0 MCG/MIN PRN Reason: BP MAINTENANCE (PER PROTOCOL) Stop: 10/12/17 10:59 Last Titration: 08/17/17 09:00 Dose: 8 mcg/min, 15.48 mls/hr Piperacillin Sod/Tazobactam (Sod 2.25 gm/ Sodium Chloride) 50 mls @ 100 mls/hr IV Q8HR FOUZIA Stop: 08/18/17 13:29 Last Admin: 08/17/17 05:43 Dose: 100 mls/hr Insulin Aspart (Novolog Insulin Sliding Scale) 0 units SUBQ Q6HR FOUZIA PRN Reason: Protocol Stop: 10/02/17 00:00 Last Admin: 08/17/17 06:21 Dose: 4 units Insulin Detemir (Levemir Insulin) 16 units SUBQ HS FOUZIA PRN Reason: Protocol Stop: 10/13/17 20:59 Last Admin: 08/16/17 22:00 Dose: 16 units Lactobacillus Rhamnosus (Culturelle 15b) 1 each PO DAILY FOUZIA Stop: 10/07/17 08:59 Last Admin: 08/17/17 09:08 Dose: 1 each Lorazepam (Ativan) 2 mg IVP Q4HR PRN; Protocol PRN Reason: Agitation Stop: 10/15/17 11:49 Last Admin: 08/17/17 07:50 Dose: 2 mg Magnesium Hydroxide (Milk Of Magnesia) 30 ml GT Q72H PRN PRN Reason: NO BM FOR THREE DAYS Stop: 10/02/17 14:13 Mirtazapine (Remeron) 15 mg GT HS FOUZIA PRN Reason: Protocol Stop: 10/02/17 20:59 Last Admin: 08/17/17 00:00 Dose: 15 mg Miscellaneous (Clinical Monitoring) 1 ea MC PRN PRN PRN Reason: RENAL Stop: 10/05/17 11:28 Miscellaneous (Zosyn Iv Per Pharmacy) 1 ea PRN PRN PRN Reason: PROTOCOL Stop: 10/05/17 15:59 Miscellaneous (Probiotic Screen) 1 ea PRN PRN PRN Reason: PROTOCOL Stop: 10/06/17 14:14 Multivitamins/Vitamin C (Theragran) 1 tab PO DAILY [facility] Stop: 10/03/17 08:59 Last Admin: 08/17/17 09:08 Dose: 1 tab Ondansetron HCl (Zofran Odt) 4 mg PO Q6HR PRN PRN Reason: Nausea / Vomiting Stop: 10/02/17 14:13 Last Admin: 08/09/17 08:41 Dose: 4 mg Pantoprazole Sodium (Protonix) 40 mg IVP DAILY [facility] Stop: 10/02/17 08:59 Last Admin: 08/17/17 09:08 Dose: 40 mg Simethicone (Mylicon) 80 mg GT Q6H PRN PRN Reason: GAS PAIN Stop: 10/02/17 14:13 Sodium Phosphate (Fleet Enema) 118 ml RC PRN PRN PRN Reason: IF MOM/DULCOLAX INEFFECTIVE Stop: 10/02/17 14:13 Zinc Sulfate (Zinc Sulfate) 220 mg GT DAILY [facility] Stop: 10/03/17 08:59 Last Admin: 08/17/17 09:08 Dose: 220 mg General: Alert, No acute distress (scattered rhonchi) HEENT: Atraumatic, PERRLA, EOMI, Mucous membr. moist/pink Neck: Supple, Other (TRACH) Cardiovascular: Regular rate Lungs: Other (coarse rhonchi) Abdomen: Bowel sounds, Soft, Other (INTACT GT) Extremities: Edema (upper wxtrmities), Other (upper ext) Neurological: Sensation intact Skin: no Rash Psych/Mental Status: Mood NL - Procedures Procedures: Procedures Procedure Code Date BLOOD TRANSFUSION SERVICE 91758 08/02/17 EXCISION OF STOMACH, ENDO, DIAGN [id number] 07/10/17 INSPECTION OF LOWER INTESTINAL TRACT, ENDO [id number] 07/10/17 PERFORMANCE OF URINARY FILTRATION, <6 HRS/DAY [id number] 07/10/17 RESPIRATORY VENTILATION, GREATER THAN 96 CONSECUTIVE HOURS [id number] 08/02/17 TRANSFUSE NONAUT RED BLOOD CELLS IN PERIPH VEIN, PERC 33543X5 08/02/17 Nutritional Asmnt/Malnutr-PDOC - Dietary Evaluation Malnutrition Findings (Please click <Entered> for more info): Nutritional Asmnt/Malnutrition Start: 08/05/17 15: 53 Text: Status: Complete Freq: Document 08/05/17 15:53 NAVIN (Rec: 08/05/17 16:19 [id number] [id number]) Nutritional Asmnt/Malnutrition Patient General Information Nutritional Screening High Risk Diagnosis sepsis, respiratory failure, ESRD Pertinent Medical Hx/Surgical Hx ESRD on HD, respiratory failure with tracheostomy, dysphagia, a fib, anemia, HTN, GERD Subjective Information Pt on vent, not able to interview. Pt was on TF Novosource Renal 30ml/hr continuous, NPO today for surgery. Pt has dialysis ordred per nurse note. Current Diet Order/ Nutrition Support NPO on 08/05 Pertinent Medications vit C, vit D3, colace, novolog , remeron, theragran, protonix , zinc Pertinent Labs 08/05 Na 134, K 3.6, Cl 102, BUN 77, Cr 4.2, Glucose 216, POC 224-233 08/02 A1c 7.7 Nutritional Hx/Data Height 1.6 m Height (Calculated Centimeters) 160.0 Current Weight (lbs) 87.543 kg Weight (Calculated Kilograms) 87.5 Weight (Calculated Grams) 86867.3 [place] Body Weight 115 Body Mass Index (BMI) 34.2 Weight Status Obese GI Symptoms GI Symptoms None Last BM 08/04 Difficult in: None Skin Integrity/Comment: reddened to left/right inner thigh, right lateral index finger, right/left arm; skin tear to left abdominal fold; pressure area to coccy/sacral Estimated Nutritional Goals BEE in Kcals: Adj wt of IBW Calories/Kcals/Kg 30-35 adj wt 61kg Kcals Calculated 2806-0382 Protein: Adj wt of IBW Protein g/k.2-1.4 Protein Calculated 73-85 Fluid: ml 1830-2135ml (1ml/kcal) Nutritional Problem 1. Problem Problem altered nutrition related lab values Etiology hx of ESRD, endocrine dysfunction Signs/Symptoms: BUN 77, Cr 4.2, Glucose 216, POC 224-233, A1c 7.7 Malnutrition Alert Protein-Calorie Malnutrition N/A Is there a minimum of two criteria No selected? Query Text:Check all the applicable criteria. A minimum of two criteria are recommended for diagnosis of either severe or non-severe malnutrition. Intervention/Recommendation Comments 1. Resume TF Novosource Renal 30ml/hr continuous as ordered. increase to goal rate of 40ml /hr continuous as tolerated. This will provide 1920kcal, 87g protein and 688ml free water, meeting 100% of nutritional needs 2. Monitor TF rate, tolerance, wt weekly, skin integrity and labs 3. F/U as high risk in 2-3 days, 3/-3/2 Expected Outcomes/Goals Expected Outcomes/Goals 1. Pt to meet at least 75% of nutritional needs via nutrition support with tolerance 2. Wt stability, skin to remain intact, labs to approach WNL.
[2017-08-17] MEDS: Insulin Detemir 100 units/mL 10mL Vial SUBQ SCH (21:50)
--- NOTE | 2017-08-17 23:26 | Infectious Disease Prog Note ---
Infectious Disease Subjective - Review of Systems Service Date: 08/17/17 Subjective: no fever. Infectious Disease Objective - Results Result Diagrams: 08/17/17 06:23 08/17/17 06:23 Recent Labs: Laboratory Last Values WBC 11.1 Th/cmm (4.8-10.8) H 08/17/17 06:23 RBC 2.59 Mil/cmm (3.80-5.20) L 08/17/17 06:23 Hgb 8.3 gm/dL (12-16) L 08/17/17 06:23 Hct 23.8 % (41.0-60) L 08/17/17 06:23 MCV 92.1 fl (81-100) 08/17/17 06:23 MCH 31.9 pg (27.0-31.0) H 08/17/17 06:23 MCHC Differential 34.6 pg (28.0-36.0) 08/17/17 06:23 RDW 16.5 % (11.5-20.0) 08/17/17 06:23 Plt Count 227 Th/cmm (150-400) 08/17/17 06:23 MPV 10.6 fl 08/17/17 06:23 Neutrophils % 80.7 % (40.0-80.0) H 08/16/17 06:22 Band Neutrophils % 4 % (0-10) 08/11/17 04:45 Lymphocytes % 5.0 % (20.0-50.0) L 08/16/17 06:22 Monocytes % 10.7 % (2.0-10.0) H 08/16/17 06:22 Eosinophils % 2.5 % (0.0-5.0) 08/16/17 06:22 Basophils % 1.1 % (0.0-2.0) 08/16/17 06:22 Neutrophils (Manual) 83 % (40-80) H 08/17/17 06:23 Lymphocytes 7 % (20-50) L 08/17/17 06:23 Monocytes 5 % (2-10) 08/17/17 06:23 Eosinophils 4 % (0-5) 08/17/17 06:23 Basophils 1 % (0-3) 08/17/17 06:23 Hypochromia 1+ 08/02/17 15:37 Platelet Estimate ADEQUATE (NORMAL) 08/17/17 06:23 Platelet Morphology NORMAL (NORMAL) 08/02/17 15:37 Anisocytosis 1+ 08/07/17 05:45 Crenated Cell 2+ 08/02/17 15:37 RBC Morph Micro Appear ABNORMAL (NORMAL) 08/02/17 15:37 PT 12.9 SECONDS (9.5-11.5) H 08/02/17 13:58 INR 1.23 (0.5-1.4) 08/02/17 13:58 PTT (Actin FS) 33.6 SECONDS (26.0-38.0) 08/02/17 13:58 Specimen Source Arterial 08/03/17 08:58 Sample Site Right Radial 08/03/17 08:58 pH 7.42 (7.35-7.45) 08/03/17 08:58 pCO2 37.0 mmHg (35.0-45.0) 08/03/17 08:58 pO2 204.0 mmHg (80.0-100.0) H 08/03/17 08:58 HCO3 24.8 mEq/L (20.0-26.0) 08/03/17 08:58 Base Excess -0.2 mEq/L (-3.0-3.0) 08/03/17 08:58 O2 Saturation 100.0 % (92.0-100.0) 08/03/17 08:58 Rhett Test Positive 08/03/17 08:58 Vent Rate 12 08/03/17 08:58 Inspired O2 60 08/03/17 08:58 Tidal Volume 450 08/03/17 08:58 PEEP 5 08/03/17 08:58 Pressure (ins/psv/peep) NA 08/03/17 08:58 Critical Value LZHANG 08/03/17 08:58 Sodium 134 mEq/L (136-145) L 08/17/17 06:23 Potassium 3.2 mEq/L (3.5-5.1) L 08/17/17 06:23 Chloride 98 mEq/L (98-107) 08/17/17 06:23 Carbon Dioxide 25.8 mEq/L (21.0-31.0) 08/17/17 06:23 Anion Gap 13.4 (7.0-16.0) 08/17/17 06:23 BUN 33 mg/dL (7-25) H 08/17/17 06:23 Creatinine 2.1 mg/dL (0.6-1.2) H 08/17/17 06:23 Est GFR ( Amer) TNP 08/17/17 06:23 Est GFR (Non-Af Amer) TNP 08/17/17 06:23 BUN/Creatinine Ratio 15.7 08/17/17 06:23 Glucose 240 mg/dL (70-105) H 08/17/17 06:23 POC Glucose 204 MG/DL (70 - 105) H 08/17/17 21:46 Hemoglobin A1c % 7.7 % (4.0-6.0) H 08/02/17 15:37 Whole Bld Lactic Acid 1.97 mmol/L (0.60-1.99) 08/02/17 13:49 Calcium 8.6 mg/dL (8.6-10.3) 08/17/17 06:23 Magnesium 1.7 mg/dL (1.9-2.7) L 08/10/17 04:30 Iron 10 ug/dL (27-139) L 08/02/17 13:56 TIBC 135 ug/dL (250-450) L 08/02/17 13:56 Iron Saturation 7 % (15-55) L 08/02/17 13:56 Unsaturated IBC 125 ug/dL (118-369) 08/02/17 13:56 Ferritin 588 ng/mL (15-150) H 08/02/17 13:56 Total Bilirubin 0.6 mg/dL (0.3-1.0) 08/09/17 06:34 Direct Bilirubin 0.09 mg/dL (0.0-0.2) 08/02/17 13:57 AST 21 U/L (13-39) 08/09/17 06:34 ALT 12 U/L (7-52) 08/09/17 06:34 Alkaline Phosphatase 91 U/L (34-104) 08/09/17 06:34 Troponin I 1.16 ng/mL (0.01-0.05) H* D 08/04/17 06:30 B-Natriuretic Peptide 372.0 pg/mL (5.0-100.0) H 08/05/17 06:15 Total Protein 6.4 gm/dL (6.0-8.3) 08/09/17 06:34 Albumin 2.9 gm/dL (3.7-5.3) L 08/09/17 06:34 Globulin 3.5 gm/dL 08/09/17 06:34 Albumin/Globulin Ratio 0.8 (1.0-1.8) L 08/09/17 06:34 Triglycerides 132 mg/dL (<150) 08/04/17 06:30 Cholesterol 55 mg/dL (<200) 08/04/17 06:30 LDL Cholesterol Direct 16 mg/dL (75-193) L 08/04/17 06:30 HDL Cholesterol 13 mg/dL (23-92) L 08/04/17 06:30 Amylase 12 U/L (29-103) L 08/02/17 13:43 Lipase 4 U/L (11-82) L 08/02/17 13:43 TSH 3.74 uIU/ml (0.34-5.60) 08/04/17 06:30 Stool Occult Blood POSITIVE (NEGATIVE) H 08/03/17 17:50 Random Vancomycin 14.8 ug/mL (5.0-40.0) 08/09/17 06:34 Hepatitis A IgM Ab Negative (Negative) 08/08/17 08:15 Hep Bs Antigen Negative (Negative) 08/08/17 08:15 Hep B Core IgM Ab Negative (Negative) 08/08/17 08:15 Hepatitis C Antibody <0.1 s/co ratio (0.0-0.9) 08/08/17 08:15 Blood Type A POSITIVE 08/15/17 07:50 Antibody Screen POSITIVE 08/15/17 07:50 Antibody Identification Anti-K 08/15/17 07:50 NEVILLE, IgG Interpret NEGATIVE 08/15/17 07:50 Crossmatch See Detail 08/15/17 07:50 - Physical Exam Vitals and I&O: Vital Signs Temp 97.5 F 08/17/17 20:00 Pulse 82 08/17/17 22:00 Resp 16 08/17/17 22:00 BP 127/29 08/17/17 22:00 Pulse Ox 100 08/17/17 22:00 Intake & Output 08/17/17 08/17/17 08/18/17 06:59 18:59 06:59 Intake Total 89.668 Output Total Balance 89.668 Weight (lbs) 94.801 kg Intake: Intake, IV Amount 89.668 Norepinephrine 8 mg In 39.668 Sodium Chloride 0.9% 250 ml @ 0 MCG/MIN IV TITR PRN Rx#:[id number] Piperacillin Sodium/ 50 Tazobact 2.25 gm In Sodium Chloride 0.9% 50 ml @ 100 mls/hr IV Q8HR [facility] Rx#:[id number] Tube Feeding Other Output: Urine Other Other: Stool Characteristics Active Medications: Current Medications Acetaminophen (Tylenol 650mg/20.3ml Suspension) 650 mg GT DAILY [facility] Stop: 10/03/17 08:59 Last Admin: 08/17/17 09:08 Dose: 650 mg Albuterol/Ipratropium (Duoneb Neb) 3 ml HHN Q4HRT [facility] Stop: 10/02/17 10:59 Last Admin: 08/17/17 23:15 Dose: 3 ml Ascorbic Acid (Vitamin C) 500 mg PO DAILY [facility] Stop: 10/03/17 08:59 Last Admin: 08/17/17 09:08 Dose: 500 mg Aspirin (Aspirin Chewable) 81 mg GT DAILY [facility] Stop: 10/03/17 08:59 Last Admin: 08/17/17 09:08 Dose: 81 mg Atorvastatin Calcium (Lipitor) 40 mg GT HS [facility] Stop: 10/03/17 20:59 Last Admin: 08/17/17 21:49 Dose: 40 mg Bisacodyl (Dulcolax 10 Mg Supp) 10 mg RC Q72HR PRN PRN Reason: IF MOM INEFFECTIVE Stop: 10/02/17 14:13 Chlorhexidine Gluconate (Peridex) 15 ml MM 0800,2000 [facility] Stop: 10/02/17 07:59 Last Admin: 08/17/17 19:46 Dose: 15 ml Cholecalciferol (Vitamin D3) 1,000 iu GT DAILY [facility] Stop: 10/03/17 08:59 Last Admin: 08/17/17 09:08 Dose: 1,000 iu Diltiazem HCl (Cardizem) 5 mg IVP Q4H PRN PRN Reason: INCREASE HEART RATE Stop: 10/01/17 21:59 Last Admin: 08/15/17 20:50 Dose: 5 mg Docusate Sodium (Colace) 100 mg PO DAILY [facility] Stop: 10/03/17 08:59 Last Admin: 08/17/17 09:17 Dose: Not Given Heparin Sodium (Porcine) (Heparin) 5,000 units SUBQ Q12HR [facility] Stop: 10/11/17 20:59 Last Admin: 08/17/17 21:50 Dose: 5,000 units Dopamine HCl/Dextrose (Dopamine) 400 mg in 250 mls @ 0 mls/hr IV TITR PRN; Protocol; Per Protocol PRN Reason: BP MAINTENANCE (PER PROTOCOL) Stop: 10/02/17 07:47 Diltiazem HCl 125 mg/ Dextrose 125 mls @ 5 mls/hr IV TITR [facility]OU[facility]IA; 5 MG/HR PRN Reason: Protocol Stop: 10/11/17 11:44 Last Titration: 08/13/17 09:22 Dose: Infused Norepinephrine Bitartrate 8 mg (/ Sodium Chloride) 258 mls @ 0 mls/hr IV TITR PRN; Protocol; 0 MCG/MIN PRN Reason: BP MAINTENANCE (PER PROTOCOL) Stop: 10/12/17 10:59 Last Titration: 08/17/17 09:00 Dose: 8 mcg/min, 15.48 mls/hr Piperacillin Sod/Tazobactam (Sod 2.25 gm/ Sodium Chloride) 50 mls @ 100 mls/hr IV Q8HR [facility] Stop: 08/18/17 13:29 Last Admin: 08/17/17 21:49 Dose: 100 mls/hr Insulin Aspart (Novolog Insulin Sliding Scale) 0 units SUBQ Q6HR [facility] PRN Reason: Protocol Stop: 10/02/17 00:00 Last Admin: 08/17/17 18:26 Dose: 4 units Insulin Detemir (Levemir Insulin) 16 units SUBQ HS [facility] PRN Reason: Protocol Stop: 10/13/17 20:59 Last Admin: 08/17/17 21:50 Dose: 16 units Lactobacillus Rhamnosus (Culturelle 15b) 1 each PO DAILY [facility] Stop: 10/07/17 08:59 Last Admin: 08/17/17 09:08 Dose: 1 each Lorazepam (Ativan) 2 mg IVP Q4HR PRN; Protocol PRN Reason: Agitation Stop: 10/15/17 11:49 Last Admin: 08/17/17 19:45 Dose: 2 mg Magnesium Hydroxide (Milk Of Magnesia) 30 ml GT Q72H PRN PRN Reason: NO BM FOR THREE DAYS Stop: 10/02/17 14:13 Mirtazapine (Remeron) 15 mg GT HS [facility] PRN Reason: Protocol Stop: 10/02/17 20:59 Last Admin: 08/17/17 21:49 Dose: 15 mg Miscellaneous (Clinical Monitoring) 1 ea MC PRN PRN PRN Reason: RENAL Stop: 10/05/17 11:28 Miscellaneous (Zosyn Iv Per Pharmacy) 1 ea MC PRN PRN PRN Reason: PROTOCOL Stop: 10/05/17 15:59 Miscellaneous (Probiotic Screen) 1 ea MC PRN PRN PRN Reason: PROTOCOL Stop: 10/06/17 14:14 Multivitamins/Vitamin C (Theragran) 1 tab PO DAILY [facility] Stop: 10/03/17 08:59 Last Admin: 08/17/17 09:08 Dose: 1 tab Ondansetron HCl (Zofran Odt) 4 mg PO Q6HR PRN PRN Reason: Nausea / Vomiting Stop: 10/02/17 14:13 Last Admin: 08/09/17 08:41 Dose: 4 mg Pantoprazole Sodium (Protonix) 40 mg IVP DAILY [facility] Stop: 10/02/17 08:59 Last Admin: 08/17/17 09:08 Dose: 40 mg Simethicone (Mylicon) 80 mg GT Q6H PRN PRN Reason: GAS PAIN Stop: 10/02/17 14:13 Sodium Phosphate (Fleet Enema) 118 ml RC PRN PRN PRN Reason: IF MOM/DULCOLAX INEFFECTIVE Stop: 10/02/17 14:13 Zinc Sulfate (Zinc Sulfate) 220 mg GT DAILY [facility] Stop: 10/03/17 08:59 Last Admin: 08/17/17 09:08 Dose: 220 mg - Procedures Procedures: Procedures Procedure Code Date BLOOD TRANSFUSION SERVICE 02417 08/02/17 EXCISION OF STOMACH, ENDO, DIAGN [id number] 07/10/17 INSPECTION OF LOWER INTESTINAL TRACT, ENDO [id number] 07/10/17 PERFORMANCE OF URINARY FILTRATION, <6 HRS/DAY [id number] 07/10/17 RESPIRATORY VENTILATION, GREATER THAN 96 CONSECUTIVE HOURS [id number] 08/02/17 TRANSFUSE NONAUT RED BLOOD CELLS IN PERIPH VEIN, PERC [id number] 08/02/17 Infectious Disease Assmt/Plan - Assessment Assessment: 1. Septic shock. improved. 2. Gram-negative negative bacteremia treated 3. Pneumonia. 4. 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 5. Diabetes mellitus type 2. 6. Obesity. - Plan Plan: change zosyn to levaquin. Nutritional Asmnt/Malnutr-PDOC - Dietary Evaluation Malnutrition Findings (Please click <Entered> for more info): Nutritional Asmnt/Malnutrition Start: 08/05/17 15: 53 Text: Status: Complete Freq: Document 08/05/17 15:53 HEN (Rec: 08/05/17 16:19 LCHENG [email or web address]) Nutritional Asmnt/Malnutrition Patient General Information Nutritional Screening High Risk Diagnosis sepsis, respiratory failure, ESRD Pertinent Medical Hx/Surgical Hx ESRD on HD, respiratory failure with tracheostomy, dysphagia, a fib, anemia, HTN, GERD Subjective Information Pt on vent, not able to interview. Pt was on TF Novosource Renal 30ml/hr continuous, NPO today for surgery. Pt has dialysis ordred per nurse note. Current Diet Order/ Nutrition Support NPO on 08/05 Pertinent Medications vit C, vit D3, colace, novolog , remeron, theragran, protonix , zinc Pertinent Labs 08/05 Na 134, K 3.6, Cl 102, BUN 77, Cr 4.2, Glucose 216, POC 224-233 08/02 A1c 7.7 Nutritional Hx/Data Height 1.6 m Height (Calculated Centimeters) 160.0 Current Weight (lbs) 87.543 kg Weight (Calculated Kilograms) 87.5 Weight (Calculated Grams) 16852.3 Omega Body Weight 115 Body Mass Index (BMI) 34.2 Weight Status Obese GI Symptoms GI Symptoms None Last BM 08/04 Difficult in: None Skin Integrity/Comment: reddened to left/right inner thigh, right lateral index finger, right/left arm; skin tear to left abdominal fold; pressure area to coccy/sacral Estimated Nutritional Goals BEE in Kcals: Adj wt of IBW Calories/Kcals/Kg 30-35 adj wt 61kg Kcals Calculated 6129-6202 Protein: Adj wt of IBW Protein g/k.2-1.4 Protein Calculated 73-85 Fluid: ml 1830-2135ml (1ml/kcal) Nutritional Problem 1. Problem Problem altered nutrition related lab values Etiology hx of ESRD, endocrine dysfunction Signs/Symptoms: BUN 77, Cr 4.2, Glucose 216, POC 224-233, A1c 7.7 Malnutrition Alert Protein-Calorie Malnutrition N/A Is there a minimum of two criteria No selected? Query Text:Check all the applicable criteria. A minimum of two criteria are recommended for diagnosis of either severe or non-severe malnutrition. Intervention/Recommendation Comments 1. Resume TF Novosource Renal 30ml/hr continuous as ordered. increase to goal rate of 40ml /hr continuous as tolerated. This will provide 1920kcal, 87g protein and 688ml free water, meeting 100% of nutritional needs 2. Monitor TF rate, tolerance, wt weekly, skin integrity and labs 3. F/U as high risk in 2-3 days, 08/07-3/ Expected Outcomes/Goals Expected Outcomes/Goals 1. Pt to meet at least 75% of nutritional needs via nutrition support with tolerance 2. Wt stability, skin to remain intact, labs to approach WNL.
[2017-08-18] MEDS: INSULIN ASPART SLIDING SCALE 100 UNITS/ML UNIT SUBQ SCH ×4 (01:11→18:00)
[2017-08-18] MEDS: Albuterol/Ipratropium Neb 3 ML AERS HHN SCH ×6 (03:10→23:23)
[2017-08-18] MEDS: Piperacillin/Tazobact 2.25 gm in 0.9% NS 50 ML IV SCH ×2 (05:21→13:09)
[2017-08-18] MEDS: Chlorhexidine Gluconate 0.12% 15mL Mouthwash MM SCH ×2 (08:00→20:30)
[2017-08-18] MEDS: Aspirin 81mg Chewable Tab GT SCH (08:00)
[2017-08-18] MEDS: Lactobacillus Rhamnosus GG 15 Billion CFU CAP.SPRINK PO SCH (08:40)
[2017-08-18] MEDS: Multivitamin Tab PO SCH (08:40)
[2017-08-18] MEDS ORDERED: Levofloxacin 500mg/100mL 500 MG/100 ML BAG IV ONE (09:00)
--- NOTE | 2017-08-18 09:23 | General Progress Note ---
Subjective - Review of Systems Events since last encounter: patient comfortable no fever Subjective: still on levophed Objective - Results Result Diagrams: 08/17/17 06:23 08/17/17 06:23 Recent Labs: Laboratory Last Values WBC 11.1 Th/cmm (4.8-10.8) H 08/17/17 06:23 RBC 2.59 Mil/cmm (3.80-5.20) L 08/17/17 06:23 Hgb 8.3 gm/dL (12-16) L 08/17/17 06:23 Hct 23.8 % (41.0-60) L 08/17/17 06:23 MCV 92.1 fl (81-100) 08/17/17 06:23 MCH 31.9 pg (27.0-31.0) H 08/17/17 06:23 MCHC Differential 34.6 pg (28.0-36.0) 08/17/17 06:23 RDW 16.5 % (11.5-20.0) 08/17/17 06:23 Plt Count 227 Th/cmm (150-400) 08/17/17 06:23 MPV 10.6 fl 08/17/17 06:23 Neutrophils % 80.7 % (40.0-80.0) H 08/16/17 06:22 Band Neutrophils % 4 % (0-10) 08/11/17 04:45 Lymphocytes % 5.0 % (20.0-50.0) L 08/16/17 06:22 Monocytes % 10.7 % (2.0-10.0) H 08/16/17 06:22 Eosinophils % 2.5 % (0.0-5.0) 08/16/17 06:22 Basophils % 1.1 % (0.0-2.0) 08/16/17 06:22 Neutrophils (Manual) 83 % (40-80) H 08/17/17 06:23 Lymphocytes 7 % (20-50) L 08/17/17 06:23 Monocytes 5 % (2-10) 08/17/17 06:23 Eosinophils 4 % (0-5) 08/17/17 06:23 Basophils 1 % (0-3) 08/17/17 06:23 Hypochromia 1+ 08/02/17 15:37 Platelet Estimate ADEQUATE (NORMAL) 08/17/17 06:23 Platelet Morphology NORMAL (NORMAL) 08/02/17 15:37 Anisocytosis 1+ 08/07/17 05:45 Crenated Cell 2+ 08/02/17 15:37 RBC Morph Micro Appear ABNORMAL (NORMAL) 08/02/17 15:37 PT 12.9 SECONDS (9.5-11.5) H 08/02/17 13:58 INR 1.23 (0.5-1.4) 08/02/17 13:58 PTT (Actin FS) 33.6 SECONDS (26.0-38.0) 08/02/17 13:58 Specimen Source Arterial 08/03/17 08:58 Sample Site Right Radial 08/03/17 08:58 pH 7.42 (7.35-7.45) 08/03/17 08:58 pCO2 37.0 mmHg (35.0-45.0) 08/03/17 08:58 pO2 204.0 mmHg (80.0-100.0) H 08/03/17 08:58 HCO3 24.8 mEq/L (20.0-26.0) 08/03/17 08:58 Base Excess -0.2 mEq/L (-3.0-3.0) 08/03/17 08:58 O2 Saturation 100.0 % (92.0-100.0) 08/03/17 08:58 Rhett Test Positive 08/03/17 08:58 Vent Rate 12 08/03/17 08:58 Inspired O2 60 08/03/17 08:58 Tidal Volume 450 08/03/17 08:58 PEEP 5 08/03/17 08:58 Pressure (ins/psv/peep) NA 08/03/17 08:58 Critical Value LZHANG 08/03/17 08:58 Sodium 134 mEq/L (136-145) L 08/17/17 06:23 Potassium 3.2 mEq/L (3.5-5.1) L 08/17/17 06:23 Chloride 98 mEq/L (98-107) 08/17/17 06:23 Carbon Dioxide 25.8 mEq/L (21.0-31.0) 08/17/17 06:23 Anion Gap 13.4 (7.0-16.0) 08/17/17 06:23 BUN 33 mg/dL (7-25) H 08/17/17 06:23 Creatinine 2.1 mg/dL (0.6-1.2) H 08/17/17 06:23 Est GFR ( Amer) TNP 08/17/17 06:23 Est GFR (Non-Af Amer) TNP 08/17/17 06:23 BUN/Creatinine Ratio 15.7 08/17/17 06:23 Glucose 240 mg/dL (70-105) H 08/17/17 06:23 POC Glucose 177 MG/DL (70 - 105) H 08/18/17 05:19 Hemoglobin A1c % 7.7 % (4.0-6.0) H 08/02/17 15:37 Whole Bld Lactic Acid 1.97 mmol/L (0.60-1.99) 08/02/17 13:49 Calcium 8.6 mg/dL (8.6-10.3) 08/17/17 06:23 Magnesium 1.7 mg/dL (1.9-2.7) L 08/10/17 04:30 Iron 10 ug/dL (27-139) L 08/02/17 13:56 TIBC 135 ug/dL (250-450) L 08/02/17 13:56 Iron Saturation 7 % (15-55) L 08/02/17 13:56 Unsaturated IBC 125 ug/dL (118-369) 08/02/17 13:56 Ferritin 588 ng/mL (15-150) H 08/02/17 13:56 Total Bilirubin 0.6 mg/dL (0.3-1.0) 08/09/17 06:34 Direct Bilirubin 0.09 mg/dL (0.0-0.2) 08/02/17 13:57 AST 21 U/L (13-39) 08/09/17 06:34 ALT 12 U/L (7-52) 08/09/17 06:34 Alkaline Phosphatase 91 U/L (34-104) 08/09/17 06:34 Troponin I 1.16 ng/mL (0.01-0.05) H* D 08/04/17 06:30 B-Natriuretic Peptide 372.0 pg/mL (5.0-100.0) H 08/05/17 06:15 Total Protein 6.4 gm/dL (6.0-8.3) 08/09/17 06:34 Albumin 2.9 gm/dL (3.7-5.3) L 08/09/17 06:34 Globulin 3.5 gm/dL 08/09/17 06:34 Albumin/Globulin Ratio 0.8 (1.0-1.8) L 08/09/17 06:34 Triglycerides 132 mg/dL (<150) 08/04/17 06:30 Cholesterol 55 mg/dL (<200) 08/04/17 06:30 LDL Cholesterol Direct 16 mg/dL (75-193) L 08/04/17 06:30 HDL Cholesterol 13 mg/dL (23-92) L 08/04/17 06:30 Amylase 12 U/L (29-103) L 08/02/17 13:43 Lipase 4 U/L (11-82) L 08/02/17 13:43 TSH 3.74 uIU/ml (0.34-5.60) 08/04/17 06:30 Stool Occult Blood POSITIVE (NEGATIVE) H 08/03/17 17:50 Random Vancomycin 14.8 ug/mL (5.0-40.0) 08/09/17 06:34 Hepatitis A IgM Ab Negative (Negative) 08/08/17 08:15 Hep Bs Antigen Negative (Negative) 08/08/17 08:15 Hep B Core IgM Ab Negative (Negative) 08/08/17 08:15 Hepatitis C Antibody <0.1 s/co ratio (0.0-0.9) 08/08/17 08:15 Blood Type A POSITIVE 08/15/17 07:50 Antibody Screen POSITIVE 08/15/17 07:50 Antibody Identification Anti-K 08/15/17 07:50 NEVIL[place], IgG Interpret NEGATIVE 08/15/17 07:50 Crossmatch See Detail 08/15/17 07:50 - Physical Exam Vitals and I&O: Vital Signs Temp 97.8 F 08/18/17 04:00 Pulse 86 08/18/17 06:56 Resp 17 08/18/17 06:00 BP 138/40 08/18/17 06:45 Pulse Ox 97 08/18/17 06:56 Intake & Output 08/17/17 08/18/17 08/18/17 18:59 06:59 18:59 Intake Total 89.668 342.636 6.257 Balance 89.668 342.636 6.257 Weight (lbs) 94.801 kg Intake: Intake, IV Amount 89.668 342.636 6.257 Norepinephrine 8 mg In 39.668 292.636 6.257 Sodium Chloride 0.9% 250 ml @ 0 MCG/MIN IV TITR PRN Rx#:[id number] Piperacillin Sodium/ 50 50 Tazobact 2.25 gm In Sodium Chloride 0.9% 50 ml @ 100 mls/hr IV Q8HR [facility]OU[facility] Rx#:[id number] Active Medications: Current Medications Acetaminophen (Tylenol 650mg/20.3ml Suspension) 650 mg GT DAILY [facility] Stop: 10/03/17 08:59 Last Admin: 08/18/17 08:36 Dose: 650 mg Albuterol/Ipratropium (Duoneb Neb) 3 ml HHN Q4HRT [facility] Stop: 10/02/17 10:59 Last Admin: 08/18/17 06:55 Dose: 3 ml Ascorbic Acid (Vitamin C) 500 mg PO DAILY [facility] Stop: 10/03/17 08:59 Last Admin: 08/18/17 08:40 Dose: 500 mg Aspirin (Aspirin Chewable) 81 mg GT DAILY [facility] Stop: 10/03/17 08:59 Last Admin: 08/17/17 09:08 Dose: 81 mg Atorvastatin Calcium (Lipitor) 40 mg GT HS [facility] Stop: 10/03/17 20:59 Last Admin: 08/17/17 21:49 Dose: 40 mg Bisacodyl (Dulcolax 10 Mg Supp) 10 mg RC Q72HR PRN PRN Reason: IF MOM INEFFECTIVE Stop: 10/02/17 14:13 Chlorhexidine Gluconate (Peridex) 15 ml MM 0800,1999 [facility] Stop: 10/02/17 07:59 Last Admin: 08/18/17 08:00 Dose: 15 ml Cholecalciferol (Vitamin D3) 1,000 iu GT DAILY [facility] Stop: 10/03/17 08:59 Last Admin: 08/18/17 08:40 Dose: 1,000 iu Diltiazem HCl (Cardizem) 5 mg IVP Q4H PRN PRN Reason: INCREASE HEART RATE Stop: 10/01/17 21:59 Last Admin: 08/15/17 20:50 Dose: 5 mg Docusate Sodium (Colace) 100 mg PO DAILY [facility] Stop: 10/03/17 08:59 Last Admin: 08/17/17 09:17 Dose: Not Given Heparin Sodium (Porcine) (Heparin) 5,000 units SUBQ Q12HR [facility] Stop: 10/11/17 20:59 Last Admin: 08/18/17 08:39 Dose: 5,000 units Dopamine HCl/Dextrose (Dopamine) 400 mg in 250 mls @ 0 mls/hr IV TITR PRN; Protocol; Per Protocol PRN Reason: BP MAINTENANCE (PER PROTOCOL) Stop: 10/02/17 07:47 Diltiazem HCl 125 mg/ Dextrose 125 mls @ 5 mls/hr IV TITR [facility]OUZIA; 5 MG/HR PRN Reason: Protocol Stop: 10/11/17 11:44 Last Titration: 08/13/17 09:22 Dose: Infused Norepinephrine Bitartrate 8 mg (/ Sodium Chloride) 258 mls @ 0 mls/hr IV TITR PRN; Protocol; 0 MCG/MIN PRN Reason: BP MAINTENANCE (PER PROTOCOL) Stop: 10/12/17 10:59 Last Titration: 08/18/17 07:37 Dose: 0 mcg/min, 0 mls/hr Piperacillin Sod/Tazobactam (Sod 2.25 gm/ Sodium Chloride) 50 mls @ 100 mls/hr IV Q8HR [facility] Stop: 08/18/17 13:29 Last Admin: 08/18/17 05:21 Dose: 100 mls/hr Levofloxacin (Levaquin Pb) 500 mg in 100 mls @ 100 mls/hr IV ONCE ONE Stop: 08/18/17 09:59 Last Admin: 08/18/17 08:36 Dose: 100 mls/hr Insulin Aspart (Novolog Insulin Sliding Scale) 0 units SUBQ Q6HR [facility] PRN Reason: Protocol Stop: 10/02/17 00:00 Last Admin: 08/18/17 05:31 Dose: 2 units Insulin Detemir (Levemir Insulin) 16 units SUBQ HS [facility] PRN Reason: Protocol Stop: 10/13/17 20:59 Last Admin: 08/17/17 21:50 Dose: 16 units Lactobacillus Rhamnosus (Culturelle 15b) 1 each PO DAILY [facility] Stop: 10/07/17 08:59 Last Admin: 08/18/17 08:40 Dose: 1 each Lorazepam (Ativan) 2 mg IVP Q4HR PRN; Protocol PRN Reason: Agitation Stop: 10/15/17 11:49 Last Admin: 08/18/17 09:19 Dose: 2 mg Magnesium Hydroxide (Milk Of Magnesia) 30 ml GT Q72H PRN PRN Reason: NO BM FOR THREE DAYS Stop: 10/02/17 14:13 Mirtazapine (Remeron) 15 mg GT HS [facility] PRN Reason: Protocol Stop: 10/02/17 20:59 Last Admin: 08/17/17 21:49 Dose: 15 mg Miscellaneous (Clinical Monitoring) 1 ea PRN PRN PRN Reason: RENAL Stop: 10/05/17 11:28 Miscellaneous (Zosyn Iv Per Pharmacy) 1 ea PRN PRN PRN Reason: PROTOCOL Stop: 10/05/17 15:59 Miscellaneous (Probiotic Screen) 1 ea PRN PRN PRN Reason: PROTOCOL Stop: 10/06/17 14:14 Multivitamins/Vitamin C (Theragran) 1 tab PO DAILY [facility] Stop: 10/03/17 08:59 Last Admin: 08/18/17 08:40 Dose: 1 tab Ondansetron HCl (Zofran Odt) 4 mg PO Q6HR PRN PRN Reason: Nausea / Vomiting Stop: 10/02/17 14:13 Last Admin: 08/09/17 08:41 Dose: 4 mg Pantoprazole Sodium (Protonix) 40 mg IVP DAILY [facility] Stop: 10/02/17 08:59 Last Admin: 08/18/17 08:36 Dose: 40 mg Simethicone (Mylicon) 80 mg GT Q6H PRN PRN Reason: GAS PAIN Stop: 10/02/17 14:13 Sodium Phosphate (Fleet Enema) 118 ml RC PRN PRN PRN Reason: IF MOM/DULCOLAX INEFFECTIVE Stop: 10/02/17 14:13 Zinc Sulfate (Zinc Sulfate) 220 mg GT DAILY [facility] Stop: 10/03/17 08:59 Last Admin: 08/18/17 08:40 Dose: 220 mg General: Alert, No acute distress (scattered rhonchi) HEENT: Atraumatic, PERRLA, EOMI, Mucous membr. moist/pink Neck: Supple, Other (TRACH) Cardiovascular: Regular rate Lungs: Other (coarse rhonchi) Abdomen: Bowel sounds, Soft, Other (INTACT GT) Extremities: Edema (upper wxtrmities), Other (upper ext) Neurological: Sensation intact Skin: no Rash Psych/Mental Status: Mood NL - Procedures Procedures: Procedures Procedure Code Date BLOOD TRANSFUSION SERVICE 21344 08/02/17 EXCISION OF STOMACH, ENDO, DIAGN [id number] 07/10/17 INSPECTION OF LOWER INTESTINAL TRACT, ENDO [id number] 07/10/17 PERFORMANCE OF URINARY FILTRATION, <6 HRS/DAY [id number] 07/10/17 RESPIRATORY VENTILATION, GREATER THAN 96 CONSECUTIVE HOURS [id number] 08/02/17 TRANSFUSE NONAUT RED BLOOD CELLS IN PERIPH VEIN, PERC [id number] 08/02/17 Nutritional Asmnt/Malnutr-PDOC - Dietary Evaluation Malnutrition Findings (Please click <Entered> for more info): Nutritional Asmnt/Malnutrition Start: 08/05/17 15: 53 Text: Status: Complete Freq: Document 08/05/17 15:53 NAVIN (Rec: 08/05/17 16:19 [facility] Nutritional Asmnt/Malnutrition Patient General Information Nutritional Screening High Risk Diagnosis sepsis, respiratory failure, ESRD Pertinent Medical Hx/Surgical Hx ESRD on HD, respiratory failure with tracheostomy, dysphagia, a fib, anemia, HTN, GERD Subjective Information Pt on vent, not able to interview. Pt was on TF Novosource Renal 30ml/hr continuous, NPO today for surgery. Pt has dialysis ordred per nurse note. Current Diet Order/ Nutrition Support NPO on 08/05 Pertinent Medications vit C, vit D3, colace, novolog , remeron, theragran, protonix , zinc Pertinent Labs 08/05 Na 134, K 3.6, Cl 102, BUN 77, Cr 4.2, Glucose 216, POC 224-233 08/02 A1c 7.7 Nutritional Hx/Data Height 1.6 m Height (Calculated Centimeters) 160.0 Current Weight (lbs) 87.543 kg Weight (Calculated Kilograms) 87.5 Weight (Calculated Grams) 13295.3 [place] Body Weight 115 Body Mass Index (BMI) 34.2 Weight Status Obese GI Symptoms GI Symptoms None Last BM 08/04 Difficult in: None Skin Integrity/Comment: reddened to left/right inner thigh, right lateral index finger, right/left arm; skin tear to left abdominal fold; pressure area to coccy/sacral Estimated Nutritional Goals BEE in Kcals: Adj wt of IBW Calories/Kcals/Kg 30-35 adj wt 61kg Kcals Calculated [id number] Protein: Adj wt of IBW Protein g/k.2-1.4 Protein Calculated 73-85 Fluid: ml 1830-2135ml (1ml/kcal) Nutritional Problem 1. Problem Problem altered nutrition related lab values Etiology hx of ESRD, endocrine dysfunction Signs/Symptoms: BUN 77, Cr 4.2, Glucose 216, POC 224-233, A1c 7.7 Malnutrition Alert Protein-Calorie Malnutrition N/A Is there a minimum of two criteria No selected? Query Text:Check all the applicable criteria. A minimum of two criteria are recommended for diagnosis of either severe or non-severe malnutrition. Intervention/Recommendation Comments 1. Resume TF Novosource Renal 30ml/hr continuous as ordered. increase to goal rate of 40ml /hr continuous as tolerated. This will provide 1920kcal, 87g protein and 688ml free water, meeting 100% of nutritional needs 2. Monitor TF rate, tolerance, wt weekly, skin integrity and labs 3. F/U as high risk in 2-3 days, 3-3/ Expected Outcomes/Goals Expected Outcomes/Goals 1. Pt to meet at least 75% of nutritional needs via nutrition support with tolerance 2. Wt stability, skin to remain intact, labs to approach WNL.
[2017-08-18] MEDS: Diltiazem 5 mg/mL 5mL Vial IVP PRN (12:01)
[2017-08-18] MEDS ORDERED: Metoprolol tartrate 1 mg/ml 5mL Amp IV PRN (12:25)
--- NOTE | 2017-08-18 13:20 | General Progress Note ---
Subjective - Review of Systems Service Date: 08/18/17 Subjective: awake, but agitated, on vent Objective - Results Result Diagrams: 08/17/17 06:23 08/17/17 06:23 Recent Labs: Laboratory Last Values WBC 11.1 Th/cmm (4.8-10.8) H 08/17/17 06:23 RBC 2.59 Mil/cmm (3.80-5.20) L 08/17/17 06:23 Hgb 8.3 gm/dL (12-16) L 08/17/17 06:23 Hct 23.8 % (41.0-60) L 08/17/17 06:23 MCV 92.1 fl (81-100) 08/17/17 06:23 MCH 31.9 pg (27.0-31.0) H 08/17/17 06:23 MCHC Differential 34.6 pg (28.0-36.0) 08/17/17 06:23 RDW 16.5 % (11.5-20.0) 08/17/17 06:23 Plt Count 227 Th/cmm (150-400) 08/17/17 06:23 MPV 10.6 fl 08/17/17 06:23 Neutrophils % 80.7 % (40.0-80.0) H 08/16/17 06:22 Band Neutrophils % 4 % (0-10) 08/11/17 04:45 Lymphocytes % 5.0 % (20.0-50.0) L 08/16/17 06:22 Monocytes % 10.7 % (2.0-10.0) H 08/16/17 06:22 Eosinophils % 2.5 % (0.0-5.0) 08/16/17 06:22 Basophils % 1.1 % (0.0-2.0) 08/16/17 06:22 Neutrophils (Manual) 83 % (40-80) H 08/17/17 06:23 Lymphocytes 7 % (20-50) L 08/17/17 06:23 Monocytes 5 % (2-10) 08/17/17 06:23 Eosinophils 4 % (0-5) 08/17/17 06:23 Basophils 1 % (0-3) 08/17/17 06:23 Hypochromia 1+ 08/02/17 15:37 Platelet Estimate ADEQUATE (NORMAL) 08/17/17 06:23 Platelet Morphology NORMAL (NORMAL) 08/02/17 15:37 Anisocytosis 1+ 08/07/17 05:45 Crenated Cell 2+ 08/02/17 15:37 RBC Morph Micro Appear ABNORMAL (NORMAL) 08/02/17 15:37 PT 12.9 SECONDS (9.5-11.5) H 08/02/17 13:58 INR 1.23 (0.5-1.4) 08/02/17 13:58 PTT (Actin FS) 33.6 SECONDS (26.0-38.0) 08/02/17 13:58 Specimen Source Arterial 08/03/17 08:58 Sample Site Right Radial 08/03/17 08:58 pH 7.42 (7.35-7.45) 08/03/17 08:58 pCO2 37.0 mmHg (35.0-45.0) 08/03/17 08:58 pO2 204.0 mmHg (80.0-100.0) H 08/03/17 08:58 HCO3 24.8 mEq/L (20.0-26.0) 08/03/17 08:58 Base Excess -0.2 mEq/L (-3.0-3.0) 08/03/17 08:58 O2 Saturation 100.0 % (92.0-100.0) 08/03/17 08:58 Rhett Test Positive 08/03/17 08:58 Vent Rate 12 08/03/17 08:58 Inspired O2 60 08/03/17 08:58 Tidal Volume 450 08/03/17 08:58 PEEP 5 08/03/17 08:58 Pressure (ins/psv/peep) NA 08/03/17 08:58 Critical Value LZHANG 08/03/17 08:58 Sodium 134 mEq/L (136-145) L 08/17/17 06:23 Potassium 3.2 mEq/L (3.5-5.1) L 08/17/17 06:23 Chloride 98 mEq/L (98-107) 08/17/17 06:23 Carbon Dioxide 25.8 mEq/L (21.0-31.0) 08/17/17 06:23 Anion Gap 13.4 (7.0-16.0) 08/17/17 06:23 BUN 33 mg/dL (7-25) H 08/17/17 06:23 Creatinine 2.1 mg/dL (0.6-1.2) H 08/17/17 06:23 Est GFR ( Amer) TNP 08/17/17 06:23 Est GFR (Non-Af Amer) TNP 08/17/17 06:23 BUN/Creatinine Ratio 15.7 08/17/17 06:23 Glucose 240 mg/dL (70-105) H 08/17/17 06:23 POC Glucose 177 MG/DL (70 - 105) H 08/18/17 05:19 Hemoglobin A1c % 7.7 % (4.0-6.0) H 08/02/17 15:37 Whole Bld Lactic Acid 1.97 mmol/L (0.60-1.99) 08/02/17 13:49 Calcium 8.6 mg/dL (8.6-10.3) 08/17/17 06:23 Magnesium 1.7 mg/dL (1.9-2.7) L 08/10/17 04:30 Iron 10 ug/dL (27-139) L 08/02/17 13:56 TIBC 135 ug/dL (250-450) L 08/02/17 13:56 Iron Saturation 7 % (15-55) L 08/02/17 13:56 Unsaturated IBC 125 ug/dL (118-369) 08/02/17 13:56 Ferritin 588 ng/mL (15-150) H 08/02/17 13:56 Total Bilirubin 0.6 mg/dL (0.3-1.0) 08/09/17 06:34 Direct Bilirubin 0.09 mg/dL (0.0-0.2) 08/02/17 13:57 AST 21 U/L (13-39) 08/09/17 06:34 ALT 12 U/L (7-52) 08/09/17 06:34 Alkaline Phosphatase 91 U/L (34-104) 08/09/17 06:34 Troponin I 1.16 ng/mL (0.01-0.05) H* D 08/04/17 06:30 B-Natriuretic Peptide 372.0 pg/mL (5.0-100.0) H 08/05/17 06:15 Total Protein 6.4 gm/dL (6.0-8.3) 08/09/17 06:34 Albumin 2.9 gm/dL (3.7-5.3) L 08/09/17 06:34 Globulin 3.5 gm/dL 08/09/17 06:34 Albumin/Globulin Ratio 0.8 (1.0-1.8) L 08/09/17 06:34 Triglycerides 132 mg/dL (<150) 08/04/17 06:30 Cholesterol 55 mg/dL (<200) 08/04/17 06:30 LDL Cholesterol Direct 16 mg/dL (75-193) L 08/04/17 06:30 HDL Cholesterol 13 mg/dL (23-92) L 08/04/17 06:30 Amylase 12 U/L (29-103) L 08/02/17 13:43 Lipase 4 U/L (11-82) L 08/02/17 13:43 TSH 3.74 uIU/ml (0.34-5.60) 08/04/17 06:30 Stool Occult Blood POSITIVE (NEGATIVE) H 08/03/17 17:50 Random Vancomycin 14.8 ug/mL (5.0-40.0) 08/09/17 06:34 Hepatitis A IgM Ab Negative (Negative) 08/08/17 08:15 Hep Bs Antigen Negative (Negative) 08/08/17 08:15 Hep B Core IgM Ab Negative (Negative) 08/08/17 08:15 Hepatitis C Antibody <0.1 s/co ratio (0.0-0.9) 08/08/17 08:15 Blood Type A POSITIVE 08/15/17 07:50 Antibody Screen POSITIVE 08/15/17 07:50 Antibody Identification Anti-K 08/15/17 07:50 NEVILLE, IgG Interpret NEGATIVE 08/15/17 07:50 Crossmatch See Detail 08/15/17 07:50 - Physical Exam Vitals and I&O: Vital Signs Temp 98.6 F 08/18/17 11:00 Pulse 158 08/18/17 12:01 Resp 22 08/18/17 11:00 BP 99/76 08/18/17 11:00 Pulse Ox 97 08/18/17 11:41 Intake & Output 08/17/17 08/18/17 08/18/17 18:59 06:59 18:59 Intake Total 89.668 392.636 6.257 Balance 89.668 392.636 6.257 Weight (lbs) 94.801 kg Intake: Intake, IV Amount 89.668 392.636 6.257 Norepinephrine 8 mg In 39.668 292.636 6.257 Sodium Chloride 0.9% 250 ml @ 0 MCG/MIN IV TITR PRN Rx#:[id number] Piperacillin Sodium/ 50 100 Tazobact 2.25 gm In Sodium Chloride 0.9% 50 ml @ 100 mls/hr IV Q8HR [facility] Rx#:[id number] Active Medications: Current Medications Acetaminophen (Tylenol 650mg/20.3ml Suspension) 650 mg GT DAILY [facility] Stop: 10/03/17 08:59 Last Admin: 08/18/17 08:36 Dose: 650 mg Albuterol/Ipratropium (Duoneb Neb) 3 ml HHN Q4HRT [facility] Stop: 10/02/17 10:59 Last Admin: 08/18/17 11:39 Dose: Not Given Ascorbic Acid (Vitamin C) 500 mg PO DAILY [facility] Stop: 10/03/17 08:59 Last Admin: 08/18/17 08:40 Dose: 500 mg Aspirin (Aspirin Chewable) 81 mg GT DAILY [facility] Stop: 10/03/17 08:59 Last Admin: 08/18/17 08:00 Dose: 81 mg Atorvastatin Calcium (Lipitor) 40 mg GT HS [facility] Stop: 10/03/17 20:59 Last Admin: 08/17/17 21:49 Dose: 40 mg Bisacodyl (Dulcolax 10 Mg Supp) 10 mg RC Q72HR PRN PRN Reason: IF MOM INEFFECTIVE Stop: 10/02/17 14:13 Chlorhexidine Gluconate (Peridex) 15 ml MM 0800,1999 [facility] Stop: 10/02/17 07:59 Last Admin: 08/18/17 08:00 Dose: 15 ml Cholecalciferol (Vitamin D3) 1,000 iu GT DAILY [facility] Stop: 10/03/17 08:59 Last Admin: 08/18/17 08:40 Dose: 1,000 iu Diltiazem HCl (Cardizem) 5 mg IVP Q4H PRN PRN Reason: INCREASE HEART RATE Stop: 10/01/17 21:59 Last Admin: 08/18/17 12:01 Dose: 5 mg Docusate Sodium (Colace) 100 mg PO DAILY [facility] Stop: 10/03/17 08:59 Last Admin: 08/18/17 08:20 Dose: 100 mg Heparin Sodium (Porcine) (Heparin) 5,000 units SUBQ Q12HR [facility] Stop: 10/11/17 20:59 Last Admin: 08/18/17 08:39 Dose: 5,000 units Dopamine HCl/Dextrose (Dopamine) 400 mg in 250 mls @ 0 mls/hr IV TITR PRN; Protocol; Per Protocol PRN Reason: BP MAINTENANCE (PER PROTOCOL) Stop: 10/02/17 07:47 Diltiazem HCl 125 mg/ Dextrose 125 mls @ 5 mls/hr IV TITR [facility]; 5 MG/HR PRN Reason: Protocol Stop: 10/11/17 11:44 Last Titration: 08/13/17 09:22 Dose: Infused Norepinephrine Bitartrate 8 mg (/ Sodium Chloride) 258 mls @ 0 mls/hr IV TITR PRN; Protocol; 0 MCG/MIN PRN Reason: BP MAINTENANCE (PER PROTOCOL) Stop: 10/12/17 10:59 Last Titration: 08/18/17 07:37 Dose: 0 mcg/min, 0 mls/hr Piperacillin Sod/Tazobactam (Sod 2.25 gm/ Sodium Chloride) 50 mls @ 100 mls/hr IV Q8HR [facility] Stop: 08/18/17 13:29 Last Admin: 08/18/17 13:09 Dose: 100 mls/hr Insulin Aspart (Novolog Insulin Sliding Scale) 0 units SUBQ Q6HR [facility] PRN Reason: Protocol Stop: 10/02/17 00:00 Last Admin: 08/18/17 13:00 Dose: Not Given Insulin Detemir (Levemir Insulin) 16 units SUBQ HS [facility] PRN Reason: Protocol Stop: 10/13/17 20:59 Last Admin: 08/17/17 21:50 Dose: 16 units Lactobacillus Rhamnosus (Culturelle 15b) 1 each PO DAILY [facility] Stop: 10/07/17 08:59 Last Admin: 08/18/17 08:40 Dose: 1 each Lorazepam (Ativan) 2 mg IVP Q4HR PRN; Protocol PRN Reason: Agitation Stop: 10/15/17 11:49 Last Admin: 08/18/17 13:00 Dose: 2 mg Magnesium Hydroxide (Milk Of Magnesia) 30 ml GT Q72H PRN PRN Reason: NO BM FOR THREE DAYS Stop: 10/02/17 14:13 Metoprolol Tartrate (Lopressor) 5 mg IV Q4H PRN PRN Reason: Tachycardia Stop: 10/17/17 12:24 Mirtazapine (Remeron) 15 mg GT HS [facility] PRN Reason: Protocol Stop: 10/02/17 20:59 Last Admin: 08/17/17 21:49 Dose: 15 mg Miscellaneous (Clinical Monitoring) 1 ea PRN PRN PRN Reason: RENAL Stop: 10/05/17 11:28 Miscellaneous (Zosyn Iv Per Pharmacy) 1 ea PRN PRN PRN Reason: PROTOCOL Stop: 10/05/17 15:59 Miscellaneous (Probiotic Screen) 1 ea PRN PRN PRN Reason: PROTOCOL Stop: 10/06/17 14:14 Multivitamins/Vitamin C (Theragran) 1 tab PO DAILY [facility] Stop: 10/03/17 08:59 Last Admin: 08/18/17 08:40 Dose: 1 tab Ondansetron HCl (Zofran Odt) 4 mg PO Q6HR PRN PRN Reason: Nausea / Vomiting Stop: 10/02/17 14:13 Last Admin: 08/09/17 08:41 Dose: 4 mg Pantoprazole Sodium (Protonix) 40 mg IVP DAILY [facility] Stop: 10/02/17 08:59 Last Admin: 08/18/17 08:36 Dose: 40 mg Potassium Chloride (Klor-Con) 20 meq PO X1 ONE Stop: 08/18/17 13:15 Simethicone (Mylicon) 80 mg GT Q6H PRN PRN Reason: GAS PAIN Stop: 10/02/17 14:13 Sodium Phosphate (Fleet Enema) 118 ml RC PRN PRN PRN Reason: IF MOM/DULCOLAX INEFFECTIVE Stop: 10/02/17 14:13 Zinc Sulfate (Zinc Sulfate) 220 mg GT DAILY [facility] Stop: 10/03/17 08:59 Last Admin: 08/18/17 08:40 Dose: 220 mg General: Alert, No acute distress (scattered rhonchi) HEENT: Atraumatic, PERRLA, EOMI, Mucous membr. moist/pink Neck: Supple, Other (TRACH) Cardiovascular: Regular rate Lungs: Other (coarse rhonchi) Abdomen: Bowel sounds, Soft, Other (INTACT GT) Extremities: Edema (upper wxtrmities), Other (upper ext) Neurological: Sensation intact Skin: no Rash Psych/Mental Status: Mood NL - Procedures Procedures: Procedures Procedure Code Date BLOOD TRANSFUSION SERVICE 67299 08/02/17 EXCISION OF STOMACH, ENDO, DIAGN [id number] 07/10/17 INSPECTION OF LOWER INTESTINAL TRACT, ENDO [id number] 07/10/17 PERFORMANCE OF URINARY FILTRATION, <6 HRS/DAY [id number] 07/10/17 RESPIRATORY VENTILATION, GREATER THAN 96 CONSECUTIVE HOURS [id number] 08/02/17 TRANSFUSE NONAUT RED BLOOD CELLS IN PERIPH VEIN, PERC 04305Z2 08/02/17 Assessment/Plan - Assessment Assessment: 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/L UE Edema, Cellulitis Shock Sepsis RF on Vent Acute on Chronic Decomp CHF G (-) Septicemia - Plan Plan: Lab - Result Diagrams 08/04/17 06:30 08/04/17 06:30 Current Medications Acetaminophen (Tylenol 650mg/20.3ml Suspension) 650 mg GT DAILY [facility] Stop: 10/03/17 08:59 Last Admin: 08/04/17 09:18 Dose: 650 mg Albuterol/Ipratropium (Duoneb Neb) 3 ml HHN Q4HRT [facility] Stop: 10/02/17 10:59 Last Admin: 08/04/17 11:25 Dose: 3 ml Ascorbic Acid (Vitamin C) 500 mg PO DAILY [facility] Stop: 10/03/17 08:59 Last Admin: 08/04/17 09:18 Dose: 500 mg Aspirin (Aspirin Chewable) 81 mg GT DAILY [facility] Stop: 10/03/17 08:59 Last Admin: 08/04/17 09:18 Dose: 81 mg Atorvastatin Calcium (Lipitor) 40 mg GT HS [facility] PRN Reason: Protocol Stop: 10/02/17 20:59 Last Admin: 08/03/17 20:19 Dose: 40 mg Bisacodyl (Dulcolax 10 Mg Supp) 10 mg RC Q72HR PRN PRN Reason: IF MOM INEFFECTIVE Stop: 10/02/17 14:13 Bisacodyl (Dulcolax 10 Mg Supp) 10 mg RC PRN PRN PRN Reason: IF MOM INEFFECTIVE Stop: 10/02/17 14:13 Chlorhexidine Gluconate (Peridex) 15 ml MM 08,1999 [facility] Stop: 10/02/17 07:59 Last Admin: 08/04/17 08:00 Dose: 15 ml Cholecalciferol (Vitamin D3) 1,000 iu GT DAILY [facility] Stop: 10/03/17 08:59 Last Admin: 08/04/17 09:18 Dose: 1,000 iu Diltiazem HCl (Cardizem) 5 mg IVP Q4H PRN PRN Reason: INCREASE HEART RATE Stop: 10/01/17 21:59 Last Admin: 08/03/17 01:38 Dose: 5 mg Docusate Sodium (Colace) 100 mg PO DAILY [facility] Stop: 10/03/17 08:59 Last Admin: 08/04/17 09:18 Dose: 100 mg Heparin Sodium (Porcine) (Heparin) 5,000 units HD UD [facility] Stop: 08/05/17 08:59 Last Admin: 08/04/17 09:19 Dose: Not Given Fluconazole (Diflucan) 200 mg in 100 mls @ 100 mls/hr IV Q24HR [facility] Stop: 10/02/17 14:59 Last Infusion: 08/03/17 15:40 Dose: Infused Meropenem 500 mg/ Sodium (Chloride) 100 mls @ 100 mls/hr IV Q24H [facility] Stop: 10/02/17 12:59 Last Admin: 08/04/17 13:17 Dose: 100 mls/hr Dopamine HCl/Dextrose (Dopamine) 400 mg in 250 mls @ 0 mls/hr IV TITR PRN; Protocol; Per Protocol PRN Reason: BP MAINTENANCE (PER PROTOCOL) Stop: 10/02/17 07:47 Norepinephrine Bitartrate 4 mg (/ Dextrose) 254 mls @ 0 mls/hr IV TITR PRN; Protocol; Per Protocol PRN Reason: BP MAINTENANCE (PER PROTOCOL) Stop: 10/02/17 08:31 Last Admin: 08/03/17 23:47 Dose: 4 mcg/min, 15.24 mls/hr Colistimethate Sodium 80 mg/ (Sodium Chloride) 100 mls @ 100 mls/hr IV Q36H [facility] Stop: 10/02/17 20:59 Last Infusion: 08/03/17 21:20 Dose: Infused Insulin Aspart (Novolog Insulin Sliding Scale) 0 units SUBQ Q6HR [facility] PRN Reason: Protocol Stop: 10/02/17 00:00 Last Admin: 08/04/17 11:30 Dose: 6 units Lorazepam (Ativan) 1 mg IVP Q2HR PRN; Protocol PRN Reason: Restlessness Stop: 10/01/17 21:18 Last Admin: 08/04/17 01:05 Dose: 1 mg Magnesium Hydroxide (Milk Of Magnesia) 30 ml GT Q72H PRN PRN Reason: NO BM FOR THREE DAYS Stop: 10/02/17 14:13 Mirtazapine (Remeron) 15 mg GT HS [facility] PRN Reason: Protocol Stop: 10/02/17 20:59 Last Admin: 08/03/17 20:19 Dose: 15 mg Miscellaneous (Vancomycin Iv Per Pharmacy) 1 ea PRN PRN PRN Reason: PROTOCOL Stop: 10/01/17 20:42 Miscellaneous (Zosyn Iv Per Pharmacy) 1 [facility] PRN PRN PRN Reason: PROTOCOL Stop: 10/01/17 20:42 Multivitamins/Vitamin C (Theragran) 1 tab PO DAILY [facility] Stop: 10/03/17 08:59 Last Admin: 08/04/17 09:18 Dose: 1 tab Ondansetron HCl (Zofran Odt) 4 mg PO Q6HR PRN PRN Reason: Nausea / Vomiting Stop: 10/02/17 14:13 Pantoprazole Sodium (Protonix) 40 mg IVP DAILY [facility] Stop: 10/02/17 08:59 Last Admin: 08/04/17 09:18 Dose: 40 mg Simethicone (Mylicon) 80 mg GT Q6H PRN PRN Reason: GAS PAIN Stop: 10/02/17 14:13 Sodium Phosphate (Fleet Enema) 118 ml RC PRN PRN PRN Reason: IF MOM/DULCOLAX INEFFECTIVE Stop: 10/02/17 14:13 Temazepam (Restoril) 15 mg GT HS PRN; Protocol PRN Reason: Insomnia Stop: 10/02/17 14:13 Last Admin: 08/03/17 20:19 Dose: 15 mg Zinc Sulfate (Zinc Sulfate) 220 mg GT DAILY [facility] Stop: 10/03/17 08:59 Last Admin: 08/04/17 09:18 Dose: 220 Schedule for HD in am Venous & Arterial duplex scans were negative for DVT or clots CXR still showed persistent b/l effusions, CHF replace K f/u electrolytes. cbc Reccurence of shock, on levo 2 mcg BS better agitated, still A. fib w/ RVR Nutritional Asmnt/Malnutr-PDOC - Dietary Evaluation Malnutrition Findings (Please click <Entered> for more info): Nutritional Asmnt/Malnutrition Start: 08/05/17 15: 53 Text: Status: Complete Freq: Document 08/05/17 15:53 HEN (Rec: 08/05/17 16:19 LCHEN [id number]) Nutritional Asmnt/Malnutrition Patient General Information Nutritional Screening High Risk Diagnosis sepsis, respiratory failure, ESRD Pertinent Medical Hx/Surgical Hx ESRD on HD, respiratory failure with tracheostomy, dysphagia, a fib, anemia, HTN, GERD Subjective Information Pt on vent, not able to interview. Pt was on TF Novosource Renal 30ml/hr continuous, NPO today for surgery. Pt has dialysis ordred per nurse note. Current Diet Order/ Nutrition Support NPO on 08/05 Pertinent Medications vit C, vit D3, colace, novolog , remeron, theragran, protonix , zinc Pertinent Labs 08/05 Na 134, K 3.6, Cl 102, BUN 77, Cr 4.2, Glucose 216, POC 224-233 08/02 A1c 7.7 Nutritional Hx/Data Height 1.6 m Height (Calculated Centimeters) 160.0 Current Weight (lbs) 87.543 kg Weight (Calculated Kilograms) 87.5 Weight (Calculated Grams) 03967.3 [place] Body Weight 115 Body Mass Index (BMI) 34.2 Weight Status Obese GI Symptoms GI Symptoms None Last BM 08/04 Difficult in: None Skin Integrity/Comment: reddened to left/right inner thigh, right lateral index finger, right/left arm; skin tear to left abdominal fold; pressure area to coccy/sacral Estimated Nutritional Goals BEE in Kcals: Adj wt of IBW Calories/Kcals/Kg 30-35 adj wt 61kg Kcals Calculated 2752-7136 Protein: Adj wt of IBW Protein g/k.2-1.4 Protein Calculated 73-85 Fluid: ml 1830-2135ml (1ml/kcal) Nutritional Problem 1. Problem Problem altered nutrition related lab values Etiology hx of ESRD, endocrine dysfunction Signs/Symptoms: BUN 77, Cr 4.2, Glucose 216, POC 224-233, A1c 7.7 Malnutrition Alert Protein-Calorie Malnutrition N/A Is there a minimum of two criteria No selected? Query Text:Check all the applicable criteria. A minimum of two criteria are recommended for diagnosis of either severe or non-severe malnutrition. Intervention/Recommendation Comments 1. Resume TF Novosource Renal 30ml/hr continuous as ordered. increase to goal rate of 40ml /hr continuous as tolerated. This will provide 1920kcal, 87g protein and 688ml free water, meeting 100% of nutritional needs 2. Monitor TF rate, tolerance, wt weekly, skin integrity and labs 3. F/U as high risk in 2-3 days, 08/07-08/08 Expected Outcomes/Goals Expected Outcomes/Goals 1. Pt to meet at least 75% of nutritional needs via nutrition support with tolerance 2. Wt stability, skin to remain intact, labs to approach WNL.
--- NOTE | 2017-08-18 14:18 | Infectious Disease Prog Note ---
Infectious Disease Subjective - Review of Systems Service Date: 08/18/17 Subjective: no fever. Infectious Disease Objective - Results Result Diagrams: 08/17/17 06:23 08/17/17 06:23 Recent Labs: Laboratory Last Values WBC 11.1 Th/cmm (4.8-10.8) H 08/17/17 06:23 RBC 2.59 Mil/cmm (3.80-5.20) L 08/17/17 06:23 Hgb 8.3 gm/dL (12-16) L 08/17/17 06:23 Hct 23.8 % (41.0-60) L 08/17/17 06:23 MCV 92.1 fl (81-100) 08/17/17 06:23 MCH 31.9 pg (27.0-31.0) H 08/17/17 06:23 MCHC Differential 34.6 pg (28.0-36.0) 08/17/17 06:23 RDW 16.5 % (11.5-20.0) 08/17/17 06:23 Plt Count 227 Th/cmm (150-400) 08/17/17 06:23 MPV 10.6 fl 08/17/17 06:23 Neutrophils % 80.7 % (40.0-80.0) H 08/16/17 06:22 Band Neutrophils % 4 % (0-10) 08/11/17 04:45 Lymphocytes % 5.0 % (20.0-50.0) L 08/16/17 06:22 Monocytes % 10.7 % (2.0-10.0) H 08/16/17 06:22 Eosinophils % 2.5 % (0.0-5.0) 08/16/17 06:22 Basophils % 1.1 % (0.0-2.0) 08/16/17 06:22 Neutrophils (Manual) 83 % (40-80) H 08/17/17 06:23 Lymphocytes 7 % (20-50) L 08/17/17 06:23 Monocytes 5 % (2-10) 08/17/17 06:23 Eosinophils 4 % (0-5) 08/17/17 06:23 Basophils 1 % (0-3) 08/17/17 06:23 Hypochromia 1+ 08/02/17 15:37 Platelet Estimate ADEQUATE (NORMAL) 08/17/17 06:23 Platelet Morphology NORMAL (NORMAL) 08/02/17 15:37 Anisocytosis 1+ 08/07/17 05:45 Crenated Cell 2+ 08/02/17 15:37 RBC Morph Micro Appear ABNORMAL (NORMAL) 08/02/17 15:37 PT 12.9 SECONDS (9.5-11.5) H 08/02/17 13:58 INR 1.23 (0.5-1.4) 08/02/17 13:58 PTT (Actin FS) 33.6 SECONDS (26.0-38.0) 08/02/17 13:58 Specimen Source Arterial 08/03/17 08:58 Sample Site Right Radial 08/03/17 08:58 pH 7.42 (7.35-7.45) 08/03/17 08:58 pCO2 37.0 mmHg (35.0-45.0) 08/03/17 08:58 pO2 204.0 mmHg (80.0-100.0) H 08/03/17 08:58 HCO3 24.8 mEq/L (20.0-26.0) 08/03/17 08:58 Base Excess -0.2 mEq/L (-3.0-3.0) 08/03/17 08:58 O2 Saturation 100.0 % (92.0-100.0) 08/03/17 08:58 Rhett Test Positive 08/03/17 08:58 Vent Rate 12 08/03/17 08:58 Inspired O2 60 08/03/17 08:58 Tidal Volume 450 08/03/17 08:58 PEEP 5 08/03/17 08:58 Pressure (ins/psv/peep) NA 08/03/17 08:58 Critical Value LZHANG 08/03/17 08:58 Sodium 134 mEq/L (136-145) L 08/17/17 06:23 Potassium 3.2 mEq/L (3.5-5.1) L 08/17/17 06:23 Chloride 98 mEq/L (98-107) 08/17/17 06:23 Carbon Dioxide 25.8 mEq/L (21.0-31.0) 08/17/17 06:23 Anion Gap 13.4 (7.0-16.0) 08/17/17 06:23 BUN 33 mg/dL (7-25) H 08/17/17 06:23 Creatinine 2.1 mg/dL (0.6-1.2) H 08/17/17 06:23 Est GFR ( Amer) TNP 08/17/17 06:23 Est GFR (Non-Af Amer) TNP 08/17/17 06:23 BUN/Creatinine Ratio 15.7 08/17/17 06:23 Glucose 240 mg/dL (70-105) H 08/17/17 06:23 POC Glucose 100 MG/DL (70 - 105) 08/18/17 13:07 Hemoglobin A1c % 7.7 % (4.0-6.0) H 08/02/17 15:37 Whole Bld Lactic Acid 1.97 mmol/L (0.60-1.99) 08/02/17 13:49 Calcium 8.6 mg/dL (8.6-10.3) 08/17/17 06:23 Magnesium 1.7 mg/dL (1.9-2.7) L 08/10/17 04:30 Iron 10 ug/dL (27-139) L 08/02/17 13:56 TIBC 135 ug/dL (250-450) L 08/02/17 13:56 Iron Saturation 7 % (15-55) L 08/02/17 13:56 Unsaturated IBC 125 ug/dL (118-369) 08/02/17 13:56 Ferritin 588 ng/mL (15-150) H 08/02/17 13:56 Total Bilirubin 0.6 mg/dL (0.3-1.0) 08/09/17 06:34 Direct Bilirubin 0.09 mg/dL (0.0-0.2) 08/02/17 13:57 AST 21 U/L (13-39) 08/09/17 06:34 ALT 12 U/L (7-52) 08/09/17 06:34 Alkaline Phosphatase 91 U/L (34-104) 08/09/17 06:34 Troponin I 1.16 ng/mL (0.01-0.05) H* D 08/04/17 06:30 B-Natriuretic Peptide 372.0 pg/mL (5.0-100.0) H 08/05/17 06:15 Total Protein 6.4 gm/dL (6.0-8.3) 08/09/17 06:34 Albumin 2.9 gm/dL (3.7-5.3) L 08/09/17 06:34 Globulin 3.5 gm/dL 08/09/17 06:34 Albumin/Globulin Ratio 0.8 (1.0-1.8) L 08/09/17 06:34 Triglycerides 132 mg/dL (<150) 08/04/17 06:30 Cholesterol 55 mg/dL (<200) 08/04/17 06:30 LDL Cholesterol Direct 16 mg/dL (75-193) L 08/04/17 06:30 HDL Cholesterol 13 mg/dL (23-92) L 08/04/17 06:30 Amylase 12 U/L (29-103) L 08/02/17 13:43 Lipase 4 U/L (11-82) L 08/02/17 13:43 TSH 3.74 uIU/ml (0.34-5.60) 08/04/17 06:30 Stool Occult Blood POSITIVE (NEGATIVE) H 08/03/17 17:50 Random Vancomycin 14.8 ug/mL (5.0-40.0) 08/09/17 06:34 Hepatitis A IgM Ab Negative (Negative) 08/08/17 08:15 Hep Bs Antigen Negative (Negative) 08/08/17 08:15 Hep B Core IgM Ab Negative (Negative) 08/08/17 08:15 Hepatitis C Antibody <0.1 s/co ratio (0.0-0.9) 08/08/17 08:15 Blood Type A POSITIVE 08/15/17 07:50 Antibody Screen POSITIVE 08/15/17 07:50 Antibody Identification Anti-K 08/15/17 07:50 NEVILLE, IgG Interpret NEGATIVE 08/15/17 07:50 Crossmatch See Detail 08/15/17 07:50 - Physical Exam Vitals and I&O: Vital Signs Temp 98.6 F 08/18/17 11:00 Pulse 139 08/18/17 13:20 Resp 22 08/18/17 11:00 BP 130/31 08/18/17 13:20 Pulse Ox 97 08/18/17 13:20 Intake & Output 08/17/17 08/18/17 08/18/17 18:59 06:59 18:59 Intake Total 89.668 392.636 6.257 Balance 89.668 392.636 6.257 Weight (lbs) 94.801 kg Intake: Intake, IV Amount 89.668 392.636 6.257 Norepinephrine 8 mg In 39.668 292.636 6.257 Sodium Chloride 0.9% 250 ml @ 0 MCG/MIN IV TITR PRN Rx#:[id number] Piperacillin Sodium/ 50 100 Tazobact 2.25 gm In Sodium Chloride 0.9% 50 ml @ 100 mls/hr IV Q8HR FOUZIA Rx#:[id number] Active Medications: Current Medications Acetaminophen (Tylenol 650mg/20.3ml Suspension) 650 mg GT DAILY [facility] Stop: 10/03/17 08:59 Last Admin: 08/18/17 08:36 Dose: 650 mg Albuterol/Ipratropium (Duoneb Neb) 3 ml HHN Q4HRT [facility] Stop: 10/02/17 10:59 Last Admin: 08/18/17 11:39 Dose: Not Given Ascorbic Acid (Vitamin C) 500 mg PO DAILY [facility] Stop: 10/03/17 08:59 Last Admin: 08/18/17 08:40 Dose: 500 mg Aspirin (Aspirin Chewable) 81 mg GT DAILY [facility] Stop: 10/03/17 08:59 Last Admin: 08/18/17 08:00 Dose: 81 mg Atorvastatin Calcium (Lipitor) 40 mg GT HS [facility] Stop: 10/03/17 20:59 Last Admin: 08/17/17 21:49 Dose: 40 mg Bisacodyl (Dulcolax 10 Mg Supp) 10 mg RC Q72HR PRN PRN Reason: IF MOM INEFFECTIVE Stop: 10/02/17 14:13 Chlorhexidine Gluconate (Peridex) 15 ml MM 0800,1999 [facility] Stop: 10/02/17 07:59 Last Admin: 08/18/17 08:00 Dose: 15 ml Cholecalciferol (Vitamin D3) 1,000 iu GT DAILY [facility] Stop: 10/03/17 08:59 Last Admin: 08/18/17 08:40 Dose: 1,000 iu Diltiazem HCl (Cardizem) 5 mg IVP Q4H PRN PRN Reason: INCREASE HEART RATE Stop: 10/01/17 21:59 Last Admin: 08/18/17 12:01 Dose: 5 mg Docusate Sodium (Colace) 100 mg PO DAILY FOUZIA Stop: 10/03/17 08:59 Last Admin: 08/18/17 08:20 Dose: 100 mg Heparin Sodium (Porcine) (Heparin) 5,000 units SUBQ Q12HR FOUZIA Stop: 10/11/17 20:59 Last Admin: 08/18/17 08:39 Dose: 5,000 units Dopamine HCl/Dextrose (Dopamine) 400 mg in 250 mls @ 0 mls/hr IV TITR PRN; Protocol; Per Protocol PRN Reason: BP MAINTENANCE (PER PROTOCOL) Stop: 10/02/17 07:47 Diltiazem HCl 125 mg/ Dextrose 125 mls @ 5 mls/hr IV TITR FOUZIA; 5 MG/HR PRN Reason: Protocol Stop: 10/11/17 11:44 Last Titration: 08/13/17 09:22 Dose: Infused Norepinephrine Bitartrate 8 mg (/ Sodium Chloride) 258 mls @ 0 mls/hr IV TITR PRN; Protocol; 0 MCG/MIN PRN Reason: BP MAINTENANCE (PER PROTOCOL) Stop: 10/12/17 10:59 Last Titration: 08/18/17 07:37 Dose: 0 mcg/min, 0 mls/hr Insulin Aspart (Novolog Insulin Sliding Scale) 0 units SUBQ Q6HR FOUZIA PRN Reason: Protocol Stop: 10/02/17 00:00 Last Admin: 08/18/17 13:00 Dose: Not Given Insulin Detemir (Levemir Insulin) 16 units SUBQ HS FOUZIA PRN Reason: Protocol Stop: 10/13/17 20:59 Last Admin: 08/17/17 21:50 Dose: 16 units Lactobacillus Rhamnosus (Culturelle 15b) 1 each PO DAILY [facility] Stop: 10/07/17 08:59 Last Admin: 08/18/17 08:40 Dose: 1 each Lorazepam (Ativan) 2 mg IVP Q4HR PRN; Protocol PRN Reason: Agitation Stop: 10/15/17 11:49 Last Admin: 08/18/17 13:00 Dose: 2 mg Magnesium Hydroxide (Milk Of Magnesia) 30 ml GT Q72H PRN PRN Reason: NO BM FOR THREE DAYS Stop: 10/02/17 14:13 Metoprolol Tartrate (Lopressor) 5 mg IV Q4H PRN PRN Reason: Tachycardia Stop: 10/17/17 12:24 Last Admin: 08/18/17 13:20 Dose: 5 mg Mirtazapine (Remeron) 15 mg GT HS FOUZIA PRN Reason: Protocol Stop: 10/02/17 20:59 Last Admin: 08/17/17 21:49 Dose: 15 mg Miscellaneous (Clinical Monitoring) 1 ea PRN PRN PRN Reason: RENAL Stop: 10/05/17 11:28 Miscellaneous (Zosyn Iv Per Pharmacy) 1 ea PRN PRN PRN Reason: PROTOCOL Stop: 10/05/17 15:59 Miscellaneous (Probiotic Screen) 1 ea PRN PRN PRN Reason: PROTOCOL Stop: 10/06/17 14:14 Multivitamins/Vitamin C (Theragran) 1 tab PO DAILY FOUZIA Stop: 10/03/17 08:59 Last Admin: 08/18/17 08:40 Dose: 1 tab Ondansetron HCl (Zofran Odt) 4 mg PO Q6HR PRN PRN Reason: Nausea / Vomiting Stop: 10/02/17 14:13 Last Admin: 08/09/17 08:41 Dose: 4 mg Pantoprazole Sodium (Protonix) 40 mg IVP DAILY FOUZIA Stop: 10/02/17 08:59 Last Admin: 08/18/17 08:36 Dose: 40 mg Potassium Chloride (Klor-Con) 20 meq PO X1 ONE Stop: 08/18/17 13:15 Simethicone (Mylicon) 80 mg GT Q6H PRN PRN Reason: GAS PAIN Stop: 10/02/17 14:13 Sodium Phosphate (Fleet Enema) 118 ml RC PRN PRN PRN Reason: IF MOM/DULCOLAX INEFFECTIVE Stop: 10/02/17 14:13 Zinc Sulfate (Zinc Sulfate) 220 mg GT DAILY FOUZIA Stop: 10/03/17 08:59 Last Admin: 08/18/17 08:40 Dose: 220 mg General: no acute distress, well developed, well nourished HEENT: atraumatic, normocephalic, PERRLA, EOMI Neck: supple, no thyromegaly Cardiovascular: S1S2, regular Lungs: clear to auscultation bilaterally, clear to percussion Abdomen: soft, no tender, no distended, no mass Extremities: no cyanosis, no clubbing, no edema Neurological: awake, alert, oriented Skin: intact - Procedures Procedures: Procedures Procedure Code Date BLOOD TRANSFUSION SERVICE 70209 08/02/17 EXCISION OF STOMACH, ENDO, DIAGN [id number] 07/10/17 INSPECTION OF LOWER INTESTINAL TRACT, ENDO [id number] 07/10/17 PERFORMANCE OF URINARY FILTRATION, <6 HRS/DAY [id number] 07/10/17 RESPIRATORY VENTILATION, GREATER THAN 96 CONSECUTIVE HOURS [id number] 08/02/17 TRANSFUSE NONAUT RED BLOOD CELLS IN PERIPH VEIN, PERC [id number] 08/02/17 Infectious Disease Assmt/Plan - Assessment Assessment: 1. Septic shock. improved. 2. Gram-negative negative bacteremia treated 3. Pneumonia. 4. 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 5. Diabetes mellitus type 2. 6. Obesity. 7. Hypotension on levophed. - Plan Plan: Continue levaquin. Nutritional Asmnt/Malnutr-PDOC - Dietary Evaluation Malnutrition Findings (Please click <Entered> for more info): Nutritional Asmnt/Malnutrition Start: 08/05/17 15: 53 Text: Status: Complete Freq: Document 08/05/17 15:53 LCHENG (Rec: 08/05/17 16:19 LCHENG [id number]) Nutritional Asmnt/Malnutrition Patient General Information Nutritional Screening High Risk Diagnosis sepsis, respiratory failure, ESRD Pertinent Medical Hx/Surgical Hx ESRD on HD, respiratory failure with tracheostomy, dysphagia, a fib, anemia, HTN, GERD Subjective Information Pt on vent, not able to interview. Pt was on TF Novosource Renal 30ml/hr continuous, NPO today for surgery. Pt has dialysis ordred per nurse note. Current Diet Order/ Nutrition Support NPO on 08/05 Pertinent Medications vit C, vit D3, colace, novolog , remeron, theragran, protonix , zinc Pertinent Labs 08/05 Na 134, K 3.6, Cl 102, BUN 77, Cr 4.2, Glucose 216, POC 224-233 08/02 A1c 7.7 Nutritional Hx/Data Height 1.6 m Height (Calculated Centimeters) 160.0 Current Weight (lbs) 87.543 kg Weight (Calculated Kilograms) 87.5 Weight (Calculated Grams) 57633.3 [place] Body Weight 115 Body Mass Index (BMI) 34.2 Weight Status Obese GI Symptoms GI Symptoms None Last BM 08/04 Difficult in: None Skin Integrity/Comment: reddened to left/right inner thigh, right lateral index finger, right/left arm; skin tear to left abdominal fold; pressure area to coccy/sacral Estimated Nutritional Goals BEE in Kcals: Adj wt of IBW Calories/Kcals/Kg 30-35 adj wt 61kg Kcals Calculated 2833-1390 Protein: Adj wt of IBW Protein g/k.2-1.4 Protein Calculated 73-85 Fluid: ml 1830-2135ml (1ml/kcal) Nutritional Problem 1. Problem Problem altered nutrition related lab values Etiology hx of ESRD, endocrine dysfunction Signs/Symptoms: BUN 77, Cr 4.2, Glucose 216, POC 224-233, A1c 7.7 Malnutrition Alert Protein-Calorie Malnutrition N/A Is there a minimum of two criteria No selected? Query Text:Check all the applicable criteria. A minimum of two criteria are recommended for diagnosis of either severe or non-severe malnutrition. Intervention/Recommendation Comments 1. Resume TF Novosource Renal 30ml/hr continuous as ordered. increase to goal rate of 40ml /hr continuous as tolerated. This will provide 1920kcal, 87g protein and 688ml free water, meeting 100% of nutritional needs 2. Monitor TF rate, tolerance, wt weekly, skin integrity and labs 3. F/U as high risk in 2-3 days, 08/07-08/08 Expected Outcomes/Goals Expected Outcomes/Goals 1. Pt to meet at least 75% of nutritional needs via nutrition support with tolerance 2. Wt stability, skin to remain intact, labs to approach WNL.
[2017-08-18] MEDS ORDERED: Potassium Chloride 20 mEq ER Tab PO ONE (16:00)
[2017-08-18] MEDS: Insulin Detemir 100 units/mL 10mL Vial SUBQ SCH (21:39)
[2017-08-19] MEDS: INSULIN ASPART SLIDING SCALE 100 UNITS/ML UNIT SUBQ SCH ×4 (00:33→18:00)
[2017-08-19] MEDS: Albuterol/Ipratropium Neb 3 ML AERS HHN SCH ×6 (02:58→22:22)
[2017-08-19 05:23] LABS: BASOPHILE ABSOLUTE 0.1 Th/cumm (0-0.2); HEMOGLOBIN 8.2 gm/dL (12-16); LYMPHOCYTE ABSOLUTE 0.7 Th/cmm (1.5-3.0); MEAN CELL VOLUME 92.7 fl (81-100); MEAN PLATELET VOLUME 10.4 fl; MONOCYTE ABSOLUTE 1.3 Th/cmm (0.3-1.0)
[2017-08-19 05:28] LABS: % BASOPHILS 0.7 % (0.0-2.0); % EOSINOPHILS 3.3 % (0.0-5.0); % LYMPHOCYTES 4.8 % (20.0-50.0); % MONOCYTES 9.4 % (2.0-10.0); % NEUTROPHILS 81.8 % (40.0-80.0); EOSINOPHILE ABSOLUTE 0.5 Th/cmm (0.1-0.4); HEMATOCRIT 22.2 % (41.0-60); MEAN CORPUSCULAR HEMOGLOBIN 34.2 pg (27.0-31.0); MEAN CORPUSCULAR HGB CONC 36.8 pg (28.0-36.0); NEUTROPHILE ABSOLUTE 11.6 Th/cmm (1.8-8.0); PLATELET COUNT 354 Th/cmm (150-400); RED BLOOD COUNT 2.39 Mil/cmm (3.80-5.20); RED CELL DISTRIBUTION WIDTH 15.6 % (11.5-20.0)
[2017-08-19 05:35] LABS: WHITE BLOOD COUNT 14.2 Th/cmm (4.8-10.8)
[2017-08-19 05:50] LABS: ALB/GLOB RATIO 0.6 (1.0-1.8); ALBUMIN 2.8 gm/dL (3.7-5.3); ALKALINE PHOSPHATASE 72 U/L (34-104); ANION GAP 18.2 (7.0-16.0); BILIRUBIN,TOTAL 0.4 mg/dL (0.3-1.0); BUN - UREA NITROGEN 56 mg/dL (7-25); CALCIUM SERUM 8.7 mg/dL (8.6-10.3); CARBON DIOXIDE 22.4 mEq/L (21.0-31.0); CHLORIDE 97 mEq/L (98-107); CREATININE - SERUM 3.1 mg/dL (0.6-1.2); MAGNESIUM 2.1 mg/dL (1.9-2.7); POTASSIUM SERUM 3.6 mEq/L (3.5-5.1); SGOT 37 U/L (13-39); SGPT/ALT 10 U/L (7-52); SODIUM SERUM 134 mEq/L (136-145); TOTAL PROTEIN,SERUM 7.5 gm/dL (6.0-8.3)
[2017-08-19 06:05] LABS: GLUCOSE 36 mg/dL (70-105)
[2017-08-19] MEDS ORDERED: Dextrose 50% 50 mL Abboject IVP ONE ×2 (06:20→06:21)
[2017-08-19] MEDS: Chlorhexidine Gluconate 0.12% 15mL Mouthwash MM SCH ×2 (08:00→20:15)
--- NOTE | 2017-08-19 08:23 | Diagnostic Imaging Report ---
Portable chest x-ray HISTORY: Shortness of breath Compared with prior exam of August 15, 2017, there remains opacification of the majority of the left hemithorax consistent with a large pleural effusion. The heart appears enlarged. Suggestion of a small right pleural effusion. IMPRESSION: 1. Little change with opacification of the majority of the left hemithorax consistent with a relatively large pleural effusion. 2. Persistent cardiomegaly 3. Changes suggesting a minimal right pleural effusion
[2017-08-19] MEDS: Lactobacillus Rhamnosus GG 15 Billion CFU CAP.SPRINK PO SCH (09:19)
[2017-08-19] MEDS: Multivitamin Tab PO SCH (09:19)
[2017-08-19] MEDS: Aspirin 81mg Chewable Tab GT SCH (09:19)
[2017-08-19] MEDS ORDERED: D5-0.45NS 1,000 ML IV SCH (14:18)
--- NOTE | 2017-08-19 14:27 | General Progress Note ---
Subjective - Review of Systems Service Date: 08/19/17 Subjective: more quiet, on vent Objective - Results Result Diagrams: 08/19/17 04:58 08/19/17 04:58 Recent Labs: Laboratory Last Values WBC 14.2 Th/cmm (4.8-10.8) H 08/19/17 04:58 RBC 2.39 Mil/cmm (3.80-5.20) L 08/19/17 04:58 Hgb 8.2 gm/dL (12-16) L 08/19/17 04:58 Hct 22.2 % (41.0-60) L 08/19/17 04:58 MCV 92.7 fl (81-100) 08/19/17 04:58 MCH 34.2 pg (27.0-31.0) H 08/19/17 04:58 MCHC Differential 36.8 pg (28.0-36.0) H 08/19/17 04:58 RDW 15.6 % (11.5-20.0) 08/19/17 04:58 Plt Count 354 Th/cmm (150-400) 08/19/17 04:58 MPV 10.4 fl 08/19/17 04:58 Neutrophils % 81.8 % (40.0-80.0) H 08/19/17 04:58 Band Neutrophils % 4 % (0-10) 08/11/17 04:45 Lymphocytes % 4.8 % (20.0-50.0) L 08/19/17 04:58 Monocytes % 9.4 % (2.0-10.0) 08/19/17 04:58 Eosinophils % 3.3 % (0.0-5.0) 08/19/17 04:58 Basophils % 0.7 % (0.0-2.0) 08/19/17 04:58 Neutrophils (Manual) 83 % (40-80) H 08/17/17 06:23 Lymphocytes 7 % (20-50) L 08/17/17 06:23 Monocytes 5 % (2-10) 08/17/17 06:23 Eosinophils 4 % (0-5) 08/17/17 06:23 Basophils 1 % (0-3) 08/17/17 06:23 Hypochromia 1+ 08/02/17 15:37 Platelet Estimate ADEQUATE (NORMAL) 08/17/17 06:23 Platelet Morphology NORMAL (NORMAL) 08/02/17 15:37 Anisocytosis 1+ 08/07/17 05:45 Crenated Cell 2+ 08/02/17 15:37 RBC Morph Micro Appear ABNORMAL (NORMAL) 08/02/17 15:37 PT 12.9 SECONDS (9.5-11.5) H 08/02/17 13:58 INR 1.23 (0.5-1.4) 08/02/17 13:58 PTT (Actin FS) 33.6 SECONDS (26.0-38.0) 08/02/17 13:58 Specimen Source Arterial 08/03/17 08:58 Sample Site Right Radial 08/03/17 08:58 pH 7.42 (7.35-7.45) 08/03/17 08:58 pCO2 37.0 mmHg (35.0-45.0) 08/03/17 08:58 pO2 204.0 mmHg (80.0-100.0) H 08/03/17 08:58 HCO3 24.8 mEq/L (20.0-26.0) 08/03/17 08:58 Base Excess -0.2 mEq/L (-3.0-3.0) 08/03/17 08:58 O2 Saturation 100.0 % (92.0-100.0) 08/03/17 08:58 Rhett Test Positive 08/03/17 08:58 Vent Rate 12 08/03/17 08:58 Inspired O2 60 08/03/17 08:58 Tidal Volume 450 08/03/17 08:58 PEEP 5 08/03/17 08:58 Pressure (ins/psv/peep) NA 08/03/17 08:58 Critical Value LZHANG 08/03/17 08:58 Sodium 134 mEq/L (136-145) L 08/19/17 04:58 Potassium 3.6 mEq/L (3.5-5.1) 08/19/17 04:58 Chloride 97 mEq/L (98-107) L 08/19/17 04:58 Carbon Dioxide 22.4 mEq/L (21.0-31.0) 08/19/17 04:58 Anion Gap 18.2 (7.0-16.0) H 08/19/17 04:58 BUN 56 mg/dL (7-25) H 08/19/17 04:58 Creatinine 3.1 mg/dL (0.6-1.2) H 08/19/17 04:58 Est GFR ( Amer) TNP 08/19/17 04:58 Est GFR (Non-Af Amer) TNP 08/19/17 04:58 BUN/Creatinine Ratio 18.1 08/19/17 04:58 Glucose 36 mg/dL (70-105) L* 08/19/17 04:58 POC Glucose 166 MG/DL (70 - 105) H 08/19/17 12:08 Hemoglobin A1c % 7.7 % (4.0-6.0) H 08/02/17 15:37 Whole Bld Lactic Acid 1.97 mmol/L (0.60-1.99) 08/02/17 13:49 Calcium 8.7 mg/dL (8.6-10.3) 08/19/17 04:58 Magnesium 2.1 mg/dL (1.9-2.7) 08/19/17 04:58 Iron 10 ug/dL (27-139) L 08/02/17 13:56 TIBC 135 ug/dL (250-450) L 08/02/17 13:56 Iron Saturation 7 % (15-55) L 08/02/17 13:56 Unsaturated IBC 125 ug/dL (118-369) 08/02/17 13:56 Ferritin 588 ng/mL (15-150) H 08/02/17 13:56 Total Bilirubin 0.4 mg/dL (0.3-1.0) 08/19/17 04:58 Direct Bilirubin 0.09 mg/dL (0.0-0.2) 08/02/17 13:57 AST 37 U/L (13-39) 08/19/17 04:58 ALT 10 U/L (7-52) 08/19/17 04:58 Alkaline Phosphatase 72 U/L (34-104) 08/19/17 04:58 Troponin I 1.16 ng/mL (0.01-0.05) H* D 08/04/17 06:30 B-Natriuretic Peptide 839.0 pg/mL (5.0-100.0) H 08/19/17 04:58 Total Protein 7.5 gm/dL (6.0-8.3) 08/19/17 04:58 Albumin 2.8 gm/dL (3.7-5.3) L 08/19/17 04:58 Globulin 4.7 gm/dL 08/19/17 04:58 Albumin/Globulin Ratio 0.6 (1.0-1.8) L 08/19/17 04:58 Triglycerides 132 mg/dL (<150) 08/04/17 06:30 Cholesterol 55 mg/dL (<200) 08/04/17 06:30 LDL Cholesterol Direct 16 mg/dL (75-193) L 08/04/17 06:30 HDL Cholesterol 13 mg/dL (23-92) L 08/04/17 06:30 Amylase 12 U/L (29-103) L 08/02/17 13:43 Lipase 4 U/L (11-82) L 08/02/17 13:43 TSH 3.74 uIU/ml (0.34-5.60) 08/04/17 06:30 Stool Occult Blood POSITIVE (NEGATIVE) H 08/03/17 17:50 Random Vancomycin 14.8 ug/mL (5.0-40.0) 08/09/17 06:34 Hepatitis A IgM Ab Negative (Negative) 08/08/17 08:15 Hep Bs Antigen Negative (Negative) 08/08/17 08:15 Hep B Core IgM Ab Negative (Negative) 08/08/17 08:15 Hepatitis C Antibody <0.1 s/co ratio (0.0-0.9) 08/08/17 08:15 Blood Type A POSITIVE 08/15/17 07:50 Antibody Screen POSITIVE 08/15/17 07:50 Antibody Identification Anti-K 08/15/17 07:50 NEVILLE, IgG Interpret NEGATIVE 08/15/17 07:50 Crossmatch See Detail 08/15/17 07:50 - Physical Exam Vitals and I&O: Vital Signs Temp 97.1 F 08/19/17 13:00 Pulse 69 08/19/17 13:08 Resp 25 08/19/17 13:00 BP 94/22 08/19/17 13:00 Pulse Ox 100 08/19/17 13:08 Intake & Output 08/18/17 08/19/17 08/19/17 18:59 06:59 18:59 Intake Total 38.377 151.317 650 Output Total 0 Balance 38.377 151.317 650 Weight (lbs) 42.91 kg Intake: Intake, IV Amount 38.377 151.317 Norepinephrine 8 mg In 38.377 151.317 Sodium Chloride 0.9% 250 ml @ 0 MCG/MIN IV TITR PRN Rx#:[id number] Tube Feeding 600 Other 50 Output: Urine 0 Other: # Bowel Movements 1 Active Medications: Current Medications Acetaminophen (Tylenol 650mg/20.3ml Suspension) 650 mg GT DAILY [facility] Stop: 10/03/17 08:59 Last Admin: 08/18/17 08:36 Dose: 650 mg Albuterol/Ipratropium (Duoneb Neb) 3 ml HHN Q4HRT [facility] Stop: 10/02/17 10:59 Last Admin: 08/19/17 10:55 Dose: 3 ml Amiodarone HCl (Cordarone) 200 mg PO DAILY [facility] Stop: 10/19/17 08:59 Ascorbic Acid (Vitamin C) 500 mg PO DAILY [facility] Stop: 10/03/17 08:59 Last Admin: 08/19/17 09:19 Dose: 500 mg Aspirin (Aspirin Chewable) 81 mg GT DAILY [facility] Stop: 10/03/17 08:59 Last Admin: 08/19/17 09:19 Dose: 81 mg Atorvastatin Calcium (Lipitor) 40 mg GT HS [facility] Stop: 10/03/17 20:59 Last Admin: 08/18/17 21:13 Dose: 40 mg Bisacodyl (Dulcolax 10 Mg Supp) 10 mg RC Q72HR PRN PRN Reason: IF MOM INEFFECTIVE Stop: 10/02/17 14:13 Chlorhexidine Gluconate (Peridex) 15 ml MM 0800,2000 [facility] Stop: 10/02/17 07:59 Last Admin: 08/19/17 08:00 Dose: 15 ml Cholecalciferol (Vitamin D3) 1,000 iu GT DAILY [facility] Stop: 10/03/17 08:59 Last Admin: 08/19/17 09:19 Dose: 1,000 iu Diltiazem HCl (Cardizem) 5 mg IVP Q4H PRN PRN Reason: INCREASE HEART RATE Stop: 10/01/17 21:59 Last Admin: 08/18/17 12:01 Dose: 5 mg Docusate Sodium (Colace) 100 mg PO DAILY [facility] Stop: 10/03/17 08:59 Last Admin: 08/18/17 08:20 Dose: 100 mg Heparin Sodium (Porcine) (Heparin) 5,000 units SUBQ Q12HR [facility] Stop: 10/11/17 20:59 Last Admin: 08/19/17 09:19 Dose: 5,000 units Dopamine HCl/Dextrose (Dopamine) 400 mg in 250 mls @ 0 mls/hr IV TITR PRN; Protocol; Per Protocol PRN Reason: BP MAINTENANCE (PER PROTOCOL) Stop: 10/02/17 07:47 Diltiazem HCl 125 mg/ Dextrose 125 mls @ 5 mls/hr IV TITR [facility]; 5 MG/HR PRN Reason: Protocol Stop: 10/11/17 11:44 Last Titration: 08/13/17 09:22 Dose: Infused Norepinephrine Bitartrate 8 mg (/ Sodium Chloride) 258 mls @ 0 mls/hr IV TITR PRN; Protocol; 0 MCG/MIN PRN Reason: BP MAINTENANCE (PER PROTOCOL) Stop: 10/12/17 10:59 Last Admin: 08/19/17 02:02 Dose: 6 mcg/min, 11.61 mls/hr Levofloxacin (Levaquin Pb) 250 mg in 50 mls @ 50 mls/hr IV Q48HR [facility] Stop: 10/18/17 08:59 Amiodarone HCl 450 mg/ (Dextrose) 259 mls @ 0 mls/hr IV TITR [facility]; Titrate PRN Reason: Protocol Stop: 08/19/17 20:00 Last Admin: 08/19/17 02:16 Dose: 0.5 mg/min, 17.26 mls/hr Dextrose/Sodium Chloride (D5-0.45ns) 1,000 mls @ 30 mls/hr IV .Q24H [facility] Stop: 10/18/17 14:17 Insulin Aspart (Novolog Insulin Sliding Scale) 0 units SUBQ Q6HR [facility] PRN Reason: Protocol Stop: 10/02/17 00:00 Last Admin: 08/19/17 06:25 Dose: Not Given Insulin Detemir (Levemir Insulin) 16 units SUBQ HS [facility] PRN Reason: Protocol Stop: 10/13/17 20:59 Last Admin: 08/18/17 21:39 Dose: 16 units Lactobacillus Rhamnosus (Culturelle 15b) 1 each PO DAILY [facility] Stop: 10/07/17 08:59 Last Admin: 08/19/17 09:19 Dose: 1 each Lorazepam (Ativan) 2 mg IVP Q4HR PRN; Protocol PRN Reason: Agitation Stop: 10/15/17 11:49 Last Admin: 08/19/17 00:48 Dose: 2 mg Magnesium Hydroxide (Milk Of Magnesia) 30 ml GT Q72H PRN PRN Reason: NO BM FOR THREE DAYS Stop: 10/02/17 14:13 Metoprolol Tartrate (Lopressor) 5 mg IV Q4H PRN PRN Reason: Tachycardia Stop: 10/17/17 12:24 Last Admin: 08/18/17 13:20 Dose: 5 mg Mirtazapine (Remeron) 15 mg GT HS [facility] PRN Reason: Protocol Stop: 10/02/17 20:59 Last Admin: 08/18/17 21:14 Dose: 15 mg Miscellaneous (Clinical Monitoring) 1 ea PRN PRN PRN Reason: RENAL Stop: 10/05/17 11:28 Miscellaneous (Zosyn Iv Per Pharmacy) 1 ea PRN PRN PRN Reason: PROTOCOL Stop: 10/05/17 15:59 Miscellaneous (Probiotic Screen) 1 ea PRN PRN PRN Reason: PROTOCOL Stop: 10/06/17 14:14 Multivitamins/Vitamin C (Theragran) 1 tab PO DAILY [facility] Stop: 10/03/17 08:59 Last Admin: 08/19/17 09:19 Dose: 1 tab Ondansetron HCl (Zofran Odt) 4 mg PO Q6HR PRN PRN Reason: Nausea / Vomiting Stop: 10/02/17 14:13 Last Admin: 08/09/17 08:41 Dose: 4 mg Pantoprazole Sodium (Protonix) 40 mg IVP DAILY [facility] Stop: 10/02/17 08:59 Last Admin: 08/19/17 09:19 Dose: 40 mg Simethicone (Mylicon) 80 mg GT Q6H PRN PRN Reason: GAS PAIN Stop: 10/02/17 14:13 Sodium Phosphate (Fleet Enema) 118 ml RC PRN PRN PRN Reason: IF MOM/DULCOLAX INEFFECTIVE Stop: 10/02/17 14:13 Zinc Sulfate (Zinc Sulfate) 220 mg GT DAILY [facility] Stop: 10/03/17 08:59 Last Admin: 08/19/17 09:19 Dose: 220 mg General: Alert, No acute distress (scattered rhonchi) HEENT: Atraumatic, PERRLA, EOMI, Mucous membr. moist/pink Neck: Supple, Other (TRACH) Cardiovascular: Regular rate Lungs: Other (coarse rhonchi) Abdomen: Bowel sounds, Soft, Other (INTACT GT) Extremities: Edema (upper wxtrmities), Other (upper ext) Neurological: Sensation intact Skin: no Rash Psych/Mental Status: Mood NL - Procedures Procedures: Procedures Procedure Code Date BLOOD TRANSFUSION SERVICE 03661 08/02/17 EXCISION OF STOMACH, ENDO, DIAGN [id number] 07/10/17 INSPECTION OF LOWER INTESTINAL TRACT, ENDO [id number] 07/10/17 PERFORMANCE OF URINARY FILTRATION, <6 HRS/DAY [id number] 07/10/17 RESPIRATORY VENTILATION, GREATER THAN 96 CONSECUTIVE HOURS [id number] 08/02/17 TRANSFUSE NONAUT RED BLOOD CELLS IN PERIPH VEIN, PERC 04138H6 08/02/17 Assessment/Plan - Assessment Assessment: 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/L UE Edema, Cellulitis Shock Sepsis RF on Vent Acute on Chronic Decomp CHF G (-) Septicemia - Plan Plan: Lab - Result Diagrams 08/04/17 06:30 08/04/17 06:30 Current Medications Acetaminophen (Tylenol 650mg/20.3ml Suspension) 650 mg GT DAILY [facility] Stop: 10/03/17 08:59 Last Admin: 08/04/17 09:18 Dose: 650 mg Albuterol/Ipratropium (Duoneb Neb) 3 ml HHN Q4HRT [facility] Stop: 10/02/17 10:59 Last Admin: 08/04/17 11:25 Dose: 3 ml Ascorbic Acid (Vitamin C) 500 mg PO DAILY [facility] Stop: 10/03/17 08:59 Last Admin: 08/04/17 09:18 Dose: 500 mg Aspirin (Aspirin Chewable) 81 mg GT DAILY [facility] Stop: 10/03/17 08:59 Last Admin: 08/04/17 09:18 Dose: 81 mg Atorvastatin Calcium (Lipitor) 40 mg GT HS [facility] PRN Reason: Protocol Stop: 10/02/17 20:59 Last Admin: 08/03/17 20:19 Dose: 40 mg Bisacodyl (Dulcolax 10 Mg Supp) 10 mg RC Q72HR PRN PRN Reason: IF MOM INEFFECTIVE Stop: 10/02/17 14:13 Bisacodyl (Dulcolax 10 Mg Supp) 10 mg RC PRN PRN PRN Reason: IF MOM INEFFECTIVE Stop: 10/02/17 14:13 Chlorhexidine Gluconate (Peridex) 15 ml MM 0800,2000 [facility] Stop: 10/02/17 07:59 Last Admin: 08/04/17 08:00 Dose: 15 ml Cholecalciferol (Vitamin D3) 1,000 iu GT DAILY [facility] Stop: 10/03/17 08:59 Last Admin: 08/04/17 09:18 Dose: 1,000 iu Diltiazem HCl (Cardizem) 5 mg IVP Q4H PRN PRN Reason: INCREASE HEART RATE Stop: 10/01/17 21:59 Last Admin: 08/03/17 01:38 Dose: 5 mg Docusate Sodium (Colace) 100 mg PO DAILY [facility] Stop: 10/03/17 08:59 Last Admin: 08/04/17 09:18 Dose: 100 mg Heparin Sodium (Porcine) (Heparin) 5,000 units HD UD [facility] Stop: 08/05/17 08:59 Last Admin: 08/04/17 09:19 Dose: Not Given Fluconazole (Diflucan) 200 mg in 100 mls @ 100 mls/hr IV Q24HR [facility] Stop: 10/02/17 14:59 Last Infusion: 08/03/17 15:40 Dose: Infused Meropenem 500 mg/ Sodium (Chloride) 100 mls @ 100 mls/hr IV Q24H [facility] Stop: 10/02/17 12:59 Last Admin: 08/04/17 13:17 Dose: 100 mls/hr Dopamine HCl/Dextrose (Dopamine) 400 mg in 250 mls @ 0 mls/hr IV TITR PRN; Protocol; Per Protocol PRN Reason: BP MAINTENANCE (PER PROTOCOL) Stop: 10/02/17 07:47 Norepinephrine Bitartrate 4 mg (/ Dextrose) 254 mls @ 0 mls/hr IV TITR PRN; Protocol; Per Protocol PRN Reason: BP MAINTENANCE (PER PROTOCOL) Stop: 10/02/17 08:31 Last Admin: 08/03/17 23:47 Dose: 4 mcg/min, 15.24 mls/hr Colistimethate Sodium 80 mg/ (Sodium Chloride) 100 mls @ 100 mls/hr IV Q36H [facility] Stop: 10/02/17 20:59 Last Infusion: 08/03/17 21:20 Dose: Infused Insulin Aspart (Novolog Insulin Sliding Scale) 0 units SUBQ Q6HR [facility] PRN Reason: Protocol Stop: 10/02/17 00:00 Last Admin: 08/04/17 11:30 Dose: 6 units Lorazepam (Ativan) 1 mg IVP Q2HR PRN; Protocol PRN Reason: Restlessness Stop: 10/01/17 21:18 Last Admin: 08/04/17 01:05 Dose: 1 mg Magnesium Hydroxide (Milk Of Magnesia) 30 ml GT Q72H PRN PRN Reason: NO BM FOR THREE DAYS Stop: 10/02/17 14:13 Mirtazapine (Remeron) 15 mg GT HS [facility] PRN Reason: Protocol Stop: 10/02/17 20:59 Last Admin: 08/03/17 20:19 Dose: 15 mg Miscellaneous (Vancomycin Iv Per Pharmacy) 1 ea MC PRN PRN PRN Reason: PROTOCOL Stop: 10/01/17 20:42 Miscellaneous (Zosyn Iv Per Pharmacy) 1 ea MC PRN PRN PRN Reason: PROTOCOL Stop: 10/01/17 20:42 Multivitamins/Vitamin C (Theragran) 1 tab PO DAILY [facility] Stop: 10/03/17 08:59 Last Admin: 08/04/17 09:18 Dose: 1 tab Ondansetron HCl (Zofran Odt) 4 mg PO Q6HR PRN PRN Reason: Nausea / Vomiting Stop: 10/02/17 14:13 Pantoprazole Sodium (Protonix) 40 mg IVP DAILY [facility] Stop: 10/02/17 08:59 Last Admin: 08/04/17 09:18 Dose: 40 mg Simethicone (Mylicon) 80 mg GT Q6H PRN PRN Reason: GAS PAIN Stop: 10/02/17 14:13 Sodium Phosphate (Fleet Enema) 118 ml RC PRN PRN PRN Reason: IF MOM/DULCOLAX INEFFECTIVE Stop: 10/02/17 14:13 Temazepam (Restoril) 15 mg GT HS PRN; Protocol PRN Reason: Insomnia Stop: 10/02/17 14:13 Last Admin: 08/03/17 20:19 Dose: 15 mg Zinc Sulfate (Zinc Sulfate) 220 mg GT DAILY [facility] Stop: 10/03/17 08:59 Last Admin: 08/04/17 09:18 Dose: 220 currently being dialyzed Venous & Arterial duplex scans were negative for DVT or clots CXR still showed persistent b/l effusions, CHF replace K f/u electrolytes. cbc Reccurence of shock, on levo 10 mcg BS low, monitor closely, hold Levemir, continue S/S Nutritional Asmnt/Malnutr-PDOC - Dietary Evaluation Malnutrition Findings (Please click <Entered> for more info): Nutritional Asmnt/Malnutrition Start: 08/05/17 15: 53 Text: Status: Complete Freq: Document 08/05/17 15:53 HEIDY (Rec: 08/05/17 16:19 LCHENG [id number]) Nutritional Asmnt/Malnutrition Patient General Information Nutritional Screening High Risk Diagnosis sepsis, respiratory failure, ESRD Pertinent Medical Hx/Surgical Hx ESRD on HD, respiratory failure with tracheostomy, dysphagia, a fib, anemia, HTN, GERD Subjective Information Pt on vent, not able to interview. Pt was on TF Novosource Renal 30ml/hr continuous, NPO today for surgery. Pt has dialysis ordred per nurse note. Current Diet Order/ Nutrition Support NPO on 08/05 Pertinent Medications vit C, vit D3, colace, novolog , remeron, theragran, protonix , zinc Pertinent Labs 08/05 Na 134, K 3.6, Cl 102, BUN 77, Cr 4.2, Glucose 216, POC 224-233 08/02 A1c 7.7 Nutritional Hx/Data Height 1.6 m Height (Calculated Centimeters) 160.0 Current Weight (lbs) 87.543 kg Weight (Calculated Kilograms) 87.5 Weight (Calculated Grams) 33943.3 [place] Body Weight 115 Body Mass Index (BMI) 34.2 Weight Status Obese GI Symptoms GI Symptoms None Last BM 08/04 Difficult in: None Skin Integrity/Comment: reddened to left/right inner thigh, right lateral index finger, right/left arm; skin tear to left abdominal fold; pressure area to coccy/sacral Estimated Nutritional Goals BEE in Kcals: Adj wt of IBW Calories/Kcals/Kg 30-35 adj wt 61kg Kcals Calculated [id number] Protein: Adj wt of IBW Protein g/k.2-1.4 Protein Calculated 73-85 Fluid: ml 1830-2135ml (1ml/kcal) Nutritional Problem 1. Problem Problem altered nutrition related lab values Etiology hx of ESRD, endocrine dysfunction Signs/Symptoms: BUN 77, Cr 4.2, Glucose 216, POC 224-233, A1c 7.7 Malnutrition Alert Protein-Calorie Malnutrition N/A Is there a minimum of two criteria No selected? Query Text:Check all the applicable criteria. A minimum of two criteria are recommended for diagnosis of either severe or non-severe malnutrition. Intervention/Recommendation Comments 1. Resume TF Novosource Renal 30ml/hr continuous as ordered. increase to goal rate of 40ml /hr continuous as tolerated. This will provide 1920kcal, 87g protein and 688ml free water, meeting 100% of nutritional needs 2. Monitor TF rate, tolerance, wt weekly, skin integrity and labs 3. F/U as high risk in 2-3 days, 08/07-3/ Expected Outcomes/Goals Expected Outcomes/Goals 1. Pt to meet at least 75% of nutritional needs via nutrition support with tolerance 2. Wt stability, skin to remain intact, labs to approach WNL.
[2017-08-19] MEDS: Levofloxacin 250mg/50mL 250 MG/50 ML BAG IV SCH (14:48)
--- NOTE | 2017-08-19 15:59 | Internal Medicine Prog Note ---
Internal Medicine Subjective - Subjective Service Date: 08/19/17 Patient is:: awake, non-verbal Per staff patient has:: tolerating meds Internal Medicine Objective - Results Result Diagrams: 08/19/17 04:58 08/19/17 04:58 Recent Labs: Laboratory Last Values WBC 14.2 Th/cmm (4.8-10.8) H 08/19/17 04:58 RBC 2.39 Mil/cmm (3.80-5.20) L 08/19/17 04:58 Hgb 8.2 gm/dL (12-16) L 08/19/17 04:58 Hct 22.2 % (41.0-60) L 08/19/17 04:58 MCV 92.7 fl (81-100) 08/19/17 04:58 MCH 34.2 pg (27.0-31.0) H 08/19/17 04:58 MCHC Differential 36.8 pg (28.0-36.0) H 08/19/17 04:58 RDW 15.6 % (11.5-20.0) 08/19/17 04:58 Plt Count 354 Th/cmm (150-400) 08/19/17 04:58 MPV 10.4 fl 08/19/17 04:58 Neutrophils % 81.8 % (40.0-80.0) H 08/19/17 04:58 Band Neutrophils % 4 % (0-10) 08/11/17 04:45 Lymphocytes % 4.8 % (20.0-50.0) L 08/19/17 04:58 Monocytes % 9.4 % (2.0-10.0) 08/19/17 04:58 Eosinophils % 3.3 % (0.0-5.0) 08/19/17 04:58 Basophils % 0.7 % (0.0-2.0) 08/19/17 04:58 Neutrophils (Manual) 83 % (40-80) H 08/17/17 06:23 Lymphocytes 7 % (20-50) L 08/17/17 06:23 Monocytes 5 % (2-10) 08/17/17 06:23 Eosinophils 4 % (0-5) 08/17/17 06:23 Basophils 1 % (0-3) 08/17/17 06:23 Hypochromia 1+ 08/02/17 15:37 Platelet Estimate ADEQUATE (NORMAL) 08/17/17 06:23 Platelet Morphology NORMAL (NORMAL) 08/02/17 15:37 Anisocytosis 1+ 08/07/17 05:45 Crenated Cell 2+ 08/02/17 15:37 RBC Morph Micro Appear ABNORMAL (NORMAL) 08/02/17 15:37 PT 12.9 SECONDS (9.5-11.5) H 08/02/17 13:58 INR 1.23 (0.5-1.4) 08/02/17 13:58 PTT (Actin FS) 33.6 SECONDS (26.0-38.0) 08/02/17 13:58 Specimen Source Arterial 08/03/17 08:58 Sample Site Right Radial 08/03/17 08:58 pH 7.42 (7.35-7.45) 08/03/17 08:58 pCO2 37.0 mmHg (35.0-45.0) 08/03/17 08:58 pO2 204.0 mmHg (80.0-100.0) H 08/03/17 08:58 HCO3 24.8 mEq/L (20.0-26.0) 08/03/17 08:58 Base Excess -0.2 mEq/L (-3.0-3.0) 08/03/17 08:58 O2 Saturation 100.0 % (92.0-100.0) 08/03/17 08:58 Rhett Test Positive 08/03/17 08:58 Vent Rate 12 08/03/17 08:58 Inspired O2 60 08/03/17 08:58 Tidal Volume 450 08/03/17 08:58 PEEP 5 08/03/17 08:58 Pressure (ins/psv/peep) NA 08/03/17 08:58 Critical Value LZHANG 08/03/17 08:58 Sodium 134 mEq/L (136-145) L 08/19/17 04:58 Potassium 3.6 mEq/L (3.5-5.1) 08/19/17 04:58 Chloride 97 mEq/L (98-107) L 08/19/17 04:58 Carbon Dioxide 22.4 mEq/L (21.0-31.0) 08/19/17 04:58 Anion Gap 18.2 (7.0-16.0) H 08/19/17 04:58 BUN 56 mg/dL (7-25) H 08/19/17 04:58 Creatinine 3.1 mg/dL (0.6-1.2) H 08/19/17 04:58 Est GFR ( Amer) TNP 08/19/17 04:58 Est GFR (Non-Af Amer) TNP 08/19/17 04:58 BUN/Creatinine Ratio 18.1 08/19/17 04:58 Glucose 36 mg/dL (70-105) L* 08/19/17 04:58 POC Glucose 166 MG/DL (70 - 105) H 08/19/17 12:08 Hemoglobin A1c % 7.7 % (4.0-6.0) H 08/02/17 15:37 Whole Bld Lactic Acid 1.97 mmol/L (0.60-1.99) 08/02/17 13:49 Calcium 8.7 mg/dL (8.6-10.3) 08/19/17 04:58 Magnesium 2.1 mg/dL (1.9-2.7) 08/19/17 04:58 Iron 10 ug/dL (27-139) L 08/02/17 13:56 TIBC 135 ug/dL (250-450) L 08/02/17 13:56 Iron Saturation 7 % (15-55) L 08/02/17 13:56 Unsaturated IBC 125 ug/dL (118-369) 08/02/17 13:56 Ferritin 588 ng/mL (15-150) H 08/02/17 13:56 Total Bilirubin 0.4 mg/dL (0.3-1.0) 08/19/17 04:58 Direct Bilirubin 0.09 mg/dL (0.0-0.2) 08/02/17 13:57 AST 37 U/L (13-39) 08/19/17 04:58 ALT 10 U/L (7-52) 08/19/17 04:58 Alkaline Phosphatase 72 U/L (34-104) 08/19/17 04:58 Troponin I 1.16 ng/mL (0.01-0.05) H* D 08/04/17 06:30 B-Natriuretic Peptide 839.0 pg/mL (5.0-100.0) H 08/19/17 04:58 Total Protein 7.5 gm/dL (6.0-8.3) 08/19/17 04:58 Albumin 2.8 gm/dL (3.7-5.3) L 08/19/17 04:58 Globulin 4.7 gm/dL 08/19/17 04:58 Albumin/Globulin Ratio 0.6 (1.0-1.8) L 08/19/17 04:58 Triglycerides 132 mg/dL (<150) 08/04/17 06:30 Cholesterol 55 mg/dL (<200) 08/04/17 06:30 LDL Cholesterol Direct 16 mg/dL (75-193) L 08/04/17 06:30 HDL Cholesterol 13 mg/dL (23-92) L 08/04/17 06:30 Amylase 12 U/L (29-103) L 08/02/17 13:43 Lipase 4 U/L (11-82) L 08/02/17 13:43 TSH 3.74 uIU/ml (0.34-5.60) 08/04/17 06:30 Stool Occult Blood POSITIVE (NEGATIVE) H 08/03/17 17:50 Random Vancomycin 14.8 ug/mL (5.0-40.0) 08/09/17 06:34 Hepatitis A IgM Ab Negative (Negative) 08/08/17 08:15 Hep Bs Antigen Negative (Negative) 08/08/17 08:15 Hep B Core IgM Ab Negative (Negative) 08/08/17 08:15 Hepatitis C Antibody <0.1 s/co ratio (0.0-0.9) 08/08/17 08:15 Blood Type A POSITIVE 08/15/17 07:50 Antibody Screen POSITIVE 08/15/17 07:50 Antibody Identification Anti-K 08/15/17 07:50 NEVILLE, IgG Interpret NEGATIVE 08/15/17 07:50 Crossmatch See Detail 08/15/17 07:50 - Physical Exam Vitals and I&O: Vital Signs Temp 97.1 F 08/19/17 13:00 Pulse 69 08/19/17 13:08 Resp 25 08/19/17 13:00 BP 94/22 08/19/17 13:00 Pulse Ox 100 08/19/17 13:08 Intake & Output 03/12/18 03/13/18 03/13/18 18:59 06:59 18:59 Intake Total 38.377 151.317 798.802 Output Total 0 Balance 38.377 151.317 798.802 Weight (lbs) 94 lb 9.6 oz Intake: Intake, IV Amount 38.377 151.317 148.802 Norepinephrine 8 mg In 38.377 151.317 148.802 Sodium Chloride 0.9% 250 ml @ 0 MCG/MIN IV TITR PRN Rx#:[id number] Tube Feeding 600 Other 50 Output: Urine 0 Other: # Bowel Movements 1 Active Medications: Current Medications Acetaminophen (Tylenol 650mg/20.3ml Suspension) 650 mg GT DAILY FOUZIA Stop: 10/03/17 08:59 Last Admin: 08/19/17 15:00 Dose: Not Given Albuterol/Ipratropium (Duoneb Neb) 3 ml HHN Q4HRT FOUZIA Stop: 10/02/17 10:59 Last Admin: 08/19/17 15:22 Dose: 3 ml Amiodarone HCl (Cordarone) 200 mg PO DAILY [facility] Stop: 10/19/17 08:59 Ascorbic Acid (Vitamin C) 500 mg PO DAILY FOUZIA Stop: 10/03/17 08:59 Last Admin: 08/19/17 09:19 Dose: 500 mg Aspirin (Aspirin Chewable) 81 mg GT DAILY FOUZIA Stop: 10/03/17 08:59 Last Admin: 08/19/17 09:19 Dose: 81 mg Atorvastatin Calcium (Lipitor) 40 mg GT HS FOUZIA Stop: 10/03/17 20:59 Last Admin: 08/18/17 21:13 Dose: 40 mg Bisacodyl (Dulcolax 10 Mg Supp) 10 mg RC Q72HR PRN PRN Reason: IF MOM INEFFECTIVE Stop: 10/02/17 14:13 Chlorhexidine Gluconate (Peridex) 15 ml MM 0800,2000 FOUZIA Stop: 10/02/17 07:59 Last Admin: 08/19/17 08:00 Dose: 15 ml Cholecalciferol (Vitamin D3) 1,000 iu GT DAILY FOUZIA Stop: 10/03/17 08:59 Last Admin: 08/19/17 09:19 Dose: 1,000 iu Diltiazem HCl (Cardizem) 5 mg IVP Q4H PRN PRN Reason: INCREASE HEART RATE Stop: 04/25/18 21:59 Last Admin: 08/18/17 12:01 Dose: 5 mg Docusate Sodium (Colace) 100 mg PO DAILY [facility] Stop: 10/03/17 08:59 Last Admin: 08/19/17 15:00 Dose: Not Given Heparin Sodium (Porcine) (Heparin) 5,000 units SUBQ Q12HR FOUZIA Stop: 10/11/17 20:59 Last Admin: 08/19/17 09:19 Dose: 5,000 units Dopamine HCl/Dextrose (Dopamine) 400 mg in 250 mls @ 0 mls/hr IV TITR PRN; Protocol; Per Protocol PRN Reason: BP MAINTENANCE (PER PROTOCOL) Stop: 10/02/17 07:47 Diltiazem HCl 125 mg/ Dextrose 125 mls @ 5 mls/hr IV TITR FOUZIA; 5 MG/HR PRN Reason: Protocol Stop: 10/11/17 11:44 Last Titration: 08/13/17 09:22 Dose: Infused Norepinephrine Bitartrate 8 mg (/ Sodium Chloride) 258 mls @ 0 mls/hr IV TITR PRN; Protocol; 0 MCG/MIN PRN Reason: BP MAINTENANCE (PER PROTOCOL) Stop: 10/12/17 10:59 Last Admin: 08/19/17 14:51 Dose: 10 mcg/min, 19.35 mls/hr Levofloxacin (Levaquin Pb) 250 mg in 50 mls @ 50 mls/hr IV Q48HR [facility] Stop: 10/18/17 08:59 Last Admin: 08/19/17 14:48 Dose: 50 mls/hr Amiodarone HCl 450 mg/ (Dextrose) 259 mls @ 0 mls/hr IV TITR FOUZIA; Titrate PRN Reason: Protocol Stop: 08/19/17 20:00 Last Admin: 08/19/17 02:16 Dose: 0.5 mg/min, 17.26 mls/hr Insulin Aspart (Novolog Insulin Sliding Scale) 0 units SUBQ Q6HR FOUZIA PRN Reason: Protocol Stop: 10/02/17 00:00 Last Admin: 08/19/17 12:00 Dose: Not Given Insulin Detemir (Levemir Insulin) 16 units SUBQ HS FOUZIA PRN Reason: Protocol Stop: 10/13/17 20:59 Last Admin: 08/18/17 21:39 Dose: 16 units Lactobacillus Rhamnosus (Culturelle 15b) 1 each PO DAILY FOUZIA Stop: 10/07/17 08:59 Last Admin: 08/19/17 09:19 Dose: 1 each Lorazepam (Ativan) 2 mg IVP Q4HR PRN; Protocol PRN Reason: Agitation Stop: 10/15/17 11:49 Last Admin: 08/19/17 00:48 Dose: 2 mg Magnesium Hydroxide (Milk Of Magnesia) 30 ml GT Q72H PRN PRN Reason: NO BM FOR THREE DAYS Stop: 10/02/17 14:13 Metoprolol Tartrate (Lopressor) 5 mg IV Q4H PRN PRN Reason: Tachycardia Stop: 10/17/17 12:24 Last Admin: 08/18/17 13:20 Dose: 5 mg Mirtazapine (Remeron) 15 mg GT HS FOUZIA PRN Reason: Protocol Stop: 10/02/17 20:59 Last Admin: 08/18/17 21:14 Dose: 15 mg Miscellaneous (Clinical Monitoring) 1 ea PRN PRN PRN Reason: RENAL Stop: 10/05/17 11:28 Miscellaneous (Probiotic Screen) 1 ea MC PRN PRN PRN Reason: PROTOCOL Stop: 10/06/17 14:14 Miscellaneous (Zosyn Iv Per Pharmacy) 1 ea MC PRN PRN PRN Reason: PROTOCOL Stop: 10/18/17 14:24 Multivitamins/Vitamin C (Theragran) 1 tab PO DAILY FOUZIA Stop: 10/03/17 08:59 Last Admin: 08/19/17 09:19 Dose: 1 tab Ondansetron HCl (Zofran Odt) 4 mg PO Q6HR PRN PRN Reason: Nausea / Vomiting Stop: 10/02/17 14:13 Last Admin: 08/09/17 08:41 Dose: 4 mg Pantoprazole Sodium (Protonix) 40 mg IVP DAILY FOUZIA Stop: 10/02/17 08:59 Last Admin: 08/19/17 09:19 Dose: 40 mg Simethicone (Mylicon) 80 mg GT Q6H PRN PRN Reason: GAS PAIN Stop: 10/02/17 14:13 Sodium Phosphate (Fleet Enema) 118 ml RC PRN PRN PRN Reason: IF MOM/DULCOLAX INEFFECTIVE Stop: 10/02/17 14:13 Zinc Sulfate (Zinc Sulfate) 220 mg GT DAILY FOUZIA Stop: 10/03/17 08:59 Last Admin: 08/19/17 09:19 Dose: 220 mg General: weak, obtunded HEENT: NC/AT, PERRLA Neck: Supple Lungs: ronchi Abdomen: soft, non-tender, non-distended, +GT Neurological: unable to follow command - Procedures Procedures: Procedures Procedure Code Date BLOOD TRANSFUSION SERVICE 35826 08/02/17 EXCISION OF STOMACH, ENDO, DIAGN [id number] 07/10/17 INSPECTION OF LOWER INTESTINAL TRACT, ENDO [id number] 07/10/17 PERFORMANCE OF URINARY FILTRATION, <6 HRS/DAY [id number] 07/10/17 RESPIRATORY VENTILATION, GREATER THAN 96 CONSECUTIVE HOURS [id number] 08/02/17 TRANSFUSE NONAUT RED BLOOD CELLS IN PERIPH VEIN, PERC [id number] 08/02/17 Internal Medicine Assmt/Plan - Assessment Assessment: Assessment: 1. Septic shock. 2. Gram-negative negative bacteremia. 3. Pneumonia. 4. CK D stage V pneumatosis. 5. Diabetes mellitus type 2. 6. Obesity. 7. hypotension - Plan Plan: monitor glucose cbc.bmp in am continue ivabx as per ID continue current orders Nutritional Asmnt/Malnutr-PDOC - Dietary Evaluation Malnutrition Findings (Please click <Entered> for more info): Nutritional Asmnt/Malnutrition Start: 08/05/17 15: 53 Text: Status: Complete Freq: Document 08/05/17 15:53 LCHENG (Rec: 08/05/17 16:19 LCHENG [id number]) Nutritional Asmnt/Malnutrition Patient General Information Nutritional Screening High Risk Diagnosis sepsis, respiratory failure, ESRD Pertinent Medical Hx/Surgical Hx ESRD on HD, respiratory failure with tracheostomy, dysphagia, a fib, anemia, HTN, GERD Subjective Information Pt on vent, not able to interview. Pt was on TF Novosource Renal 30ml/hr continuous, NPO today for surgery. Pt has dialysis ordred per nurse note. Current Diet Order/ Nutrition Support NPO on 08/05 Pertinent Medications vit C, vit D3, colace, novolog , remeron, theragran, protonix , zinc Pertinent Labs 08/05 Na 134, K 3.6, Cl 102, BUN 77, Cr 4.2, Glucose 216, POC 224-233 08/02 A1c 7.7 Nutritional Hx/Data Height 5 ft 3 in Height (Calculated Centimeters) 160.0 Current Weight (lbs) 193 lb Weight (Calculated Kilograms) 87.5 Weight (Calculated Grams) 38279.3 [place] Body Weight 115 Body Mass Index (BMI) 34.2 Weight Status Obese GI Symptoms GI Symptoms None Last BM 08/04 Difficult in: None Skin Integrity/Comment: reddened to left/right inner thigh, right lateral index finger, right/left arm; skin tear to left abdominal fold; pressure area to coccy/sacral Estimated Nutritional Goals BEE in Kcals: Adj wt of IBW Calories/Kcals/Kg 30-35 adj wt 61kg Kcals Calculated 4147-5205 Protein: Adj wt of IBW Protein g/k.2-1.4 Protein Calculated 73-85 Fluid: ml 1830-2135ml (1ml/kcal) Nutritional Problem 1. Problem Problem altered nutrition related lab values Etiology hx of ESRD, endocrine dysfunction Signs/Symptoms: BUN 77, Cr 4.2, Glucose 216, POC 224-233, A1c 7.7 Malnutrition Alert Protein-Calorie Malnutrition N/A Is there a minimum of two criteria No selected? Query Text:Check all the applicable criteria. A minimum of two criteria are recommended for diagnosis of either severe or non-severe malnutrition. Intervention/Recommendation Comments 1. Resume TF Novosource Renal 30ml/hr continuous as ordered. increase to goal rate of 40ml /hr continuous as tolerated. This will provide 1920kcal, 87g protein and 688ml free water, meeting 100% of nutritional needs 2. Monitor TF rate, tolerance, wt weekly, skin integrity and labs 3. F/U as high risk in 2-3 days, 08/07-08/08 Expected Outcomes/Goals Expected Outcomes/Goals 1. Pt to meet at least 75% of nutritional needs via nutrition support with tolerance 2. Wt stability, skin to remain intact, labs to approach WNL.
--- NOTE | 2017-08-19 19:04 | Consultation ---
DATE OF CONSULTATION: 08/19/2017 HISTORY OF PRESENT ILLNESS: A 76-year-old female admitted from a [facility]dc with shortness of breath. Currently in the ICU on a vent, on dialysis, multiple pressors, also in restraints, trying to pull out lines at times. Staff noting she is really not very responsive. On my [id number] interview, I am not really able to get information out of her. I did discuss with staff. I did also review her medication list. Daughter involved. P.r.n's also reviewed. PAST PSYCHIATRIC HISTORY: Unknown. MEDICAL HISTORY: A very long list, which I did review. Multiple specialists are on board including GI, Infectious Disease, also Cardiology. Multiple studies have been reviewed, which I did review. MENTAL STATUS EXAMINATION: Stated age, intubated and restrained and very calm, lethargic, not answering any questions. Mood, unable to assess. Affect, flat. Thought processes: Unable to assess fully. She is not responsive. No suicidal gestures. No evidence of any psychosis. PROVISIONAL DIAGNOSIS: History of major depression, unspecified. Currently on Remeron. The patient is medically unwell. PLAN: Recommend family involvement to talk about realistic expectations for the patient. She is quite medically unwell. I am hesitant to add any medications to try to tamper down any impulsivity given how medically fragile she is. We will monitor and follow up. [facility]# [id number]
[2017-08-19] MEDS: Insulin Detemir 100 units/mL 10mL Vial SUBQ SCH (21:58)
[2017-08-20] MEDS: Piperacillin/Tazobact 2.25 gm in 0.9% NS 50 ML IV SCH ×4 (00:37→11:56)
[2017-08-20] MEDS: INSULIN ASPART SLIDING SCALE 100 UNITS/ML UNIT SUBQ SCH ×4 (00:38→17:48)
[2017-08-20] MEDS: Albuterol/Ipratropium Neb 3 ML AERS HHN SCH ×6 (02:23→22:49)
[2017-08-20] MEDS: Diltiazem 5 mg/mL 5mL Vial IVP PRN ×2 (02:33→09:13)
[2017-08-20 04:57] LABS: HEMATOCRIT 24.7 % (41.0-60); HEMOGLOBIN 8.3 gm/dL (12-16); MEAN CELL VOLUME 91.4 fl (81-100); MEAN CORPUSCULAR HEMOGLOBIN 30.7 pg (27.0-31.0); MEAN CORPUSCULAR HGB CONC 33.6 pg (28.0-36.0); PLATELET COUNT 378 Th/cmm (150-400); RED CELL DISTRIBUTION WIDTH 16.6 % (11.5-20.0)
[2017-08-20 05:36] LABS: MANUAL DIFF REQUIRED? YES; WHITE BLOOD COUNT 12.4 Th/cmm (4.8-10.8)
[2017-08-20 05:37] LABS: BAND NEUTROPHILE 1 % (0-10); EOSINOPHIL 2 % (0-5); LYMPHOCYTE 8 % (20-50); MONOCYTE 6 % (2-10); NEUTROPHILS 83 % (40-80); PLATELET ESTIMATE ADEQUATE (NORMAL); TOTAL CELLS COUNTED 100
[2017-08-20 05:38] LABS: PLATELET MORPHOLOGY NORMAL (NORMAL)
[2017-08-20 05:41] LABS: ANION GAP 13.6 (7.0-16.0); BUN - UREA NITROGEN 46 mg/dL (7-25); CALCIUM SERUM 8.7 mg/dL (8.6-10.3); CARBON DIOXIDE 21.7 mEq/L (21.0-31.0); CHLORIDE 100 mEq/L (98-107); CREATININE - SERUM 2.7 mg/dL (0.6-1.2); POTASSIUM SERUM 3.3 mEq/L (3.5-5.1); SODIUM SERUM 132 mEq/L (136-145)
[2017-08-20 05:42] LABS: GLUCOSE 228 mg/dL (70-105)
[2017-08-20] MEDS: Chlorhexidine Gluconate 0.12% 15mL Mouthwash MM SCH ×2 (08:26→21:52)
[2017-08-20] MEDS: Multivitamin Tab PO SCH (08:31)
[2017-08-20] MEDS: Lactobacillus Rhamnosus GG 15 Billion CFU CAP.SPRINK PO SCH (08:31)
[2017-08-20] MEDS: Aspirin 81mg Chewable Tab GT SCH (08:32)
--- NOTE | 2017-08-20 08:44 | Diagnostic Imaging Report ---
CHEST X-RAY: AP view INDICATION: CHF COMPARISON: 08/19/2017 FINDINGS: Tracheostomy tube is stable. Persistent CHF is seen with large appearing left effusion. Bilateral infiltrates are noted. Cardiomegaly is noted. IMPRESSION: No significant change in pulmonary status.
[2017-08-20] MEDS ORDERED: Potassium Chloride Elixir 20 mEq /15 mL UDC GT ONE ×2 (09:38→10:42)
[2017-08-20] MEDS ORDERED: DOPamine 400 MG/250 ML BAG IV PRN (11:29)
[2017-08-20] MEDS ORDERED: Fleet Enema 135 mL RC PRN (11:30)
[2017-08-20] MEDS ORDERED: Magnesium Hydroxide (MOM) 30 mL UDC PO SCH (11:45)
[2017-08-20] MEDS ORDERED: Diltiazem 5 mg/mL 25mL Vial IV PRN (12:00)
--- NOTE | 2017-08-20 15:09 | General Progress Note ---
Subjective - Review of Systems Service Date: 08/20/17 Subjective: awake, interacting, on vent Objective - Results Result Diagrams: 08/20/17 04:45 08/20/17 04:45 Recent Labs: Laboratory Last Values WBC 12.4 Th/cmm (4.8-10.8) H 08/20/17 04:45 RBC 2.70 Mil/cmm (3.80-5.20) L 08/20/17 04:45 Hgb 8.3 gm/dL (12-16) L 08/20/17 04:45 Hct 24.7 % (41.0-60) L 08/20/17 04:45 MCV 91.4 fl (81-100) 08/20/17 04:45 MCH 30.7 pg (27.0-31.0) 08/20/17 04:45 MCHC Differential 33.6 pg (28.0-36.0) 08/20/17 04:45 RDW 16.6 % (11.5-20.0) 08/20/17 04:45 Plt Count 378 Th/cmm (150-400) 08/20/17 04:45 MPV 10.0 fl 08/20/17 04:45 Neutrophils % 81.8 % (40.0-80.0) H 08/19/17 04:58 Band Neutrophils % 1 % (0-10) 08/20/17 04:45 Lymphocytes % 4.8 % (20.0-50.0) L 08/19/17 04:58 Monocytes % 9.4 % (2.0-10.0) 08/19/17 04:58 Eosinophils % 3.3 % (0.0-5.0) 08/19/17 04:58 Basophils % 0.7 % (0.0-2.0) 08/19/17 04:58 Neutrophils (Manual) 83 % (40-80) H 08/20/17 04:45 Lymphocytes 8 % (20-50) L 08/20/17 04:45 Monocytes 6 % (2-10) 08/20/17 04:45 Eosinophils 2 % (0-5) 08/20/17 04:45 Basophils 1 % (0-3) 08/17/17 06:23 Hypochromia 1+ 08/02/17 15:37 Platelet Estimate ADEQUATE (NORMAL) 08/20/17 04:45 Platelet Morphology NORMAL (NORMAL) 08/20/17 04:45 Anisocytosis 1+ 08/07/17 05:45 Crenated Cell 2+ 08/02/17 15:37 RBC Morph Micro Appear ABNORMAL (NORMAL) 08/02/17 15:37 PT 12.9 SECONDS (9.5-11.5) H 08/02/17 13:58 INR 1.23 (0.5-1.4) 08/02/17 13:58 PTT (Actin FS) 33.6 SECONDS (26.0-38.0) 08/02/17 13:58 Specimen Source Arterial 08/03/17 08:58 Sample Site Right Radial 08/03/17 08:58 pH 7.42 (7.35-7.45) 08/03/17 08:58 pCO2 37.0 mmHg (35.0-45.0) 08/03/17 08:58 pO2 204.0 mmHg (80.0-100.0) H 08/03/17 08:58 HCO3 24.8 mEq/L (20.0-26.0) 08/03/17 08:58 Base Excess -0.2 mEq/L (-3.0-3.0) 08/03/17 08:58 O2 Saturation 100.0 % (92.0-100.0) 08/03/17 08:58 Rhett Test Positive 08/03/17 08:58 Vent Rate 12 08/03/17 08:58 Inspired O2 60 08/03/17 08:58 Tidal Volume 450 08/03/17 08:58 PEEP 5 08/03/17 08:58 Pressure (ins/psv/peep) NA 08/03/17 08:58 Critical Value LZHANG 08/03/17 08:58 Sodium 132 mEq/L (136-145) L 08/20/17 04:45 Potassium 3.3 mEq/L (3.5-5.1) L 08/20/17 04:45 Chloride 100 mEq/L (98-107) 08/20/17 04:45 Carbon Dioxide 21.7 mEq/L (21.0-31.0) 08/20/17 04:45 Anion Gap 13.6 (7.0-16.0) 08/20/17 04:45 BUN 46 mg/dL (7-25) H 08/20/17 04:45 Creatinine 2.7 mg/dL (0.6-1.2) H 08/20/17 04:45 Est GFR ( Amer) TNP 08/20/17 04:45 Est GFR (Non-Af Amer) TNP 08/20/17 04:45 BUN/Creatinine Ratio 17.0 08/20/17 04:45 Glucose 228 mg/dL (70-105) H D 08/20/17 04:45 POC Glucose 288 MG/DL (70 - 105) H 08/20/17 11:57 Hemoglobin A1c % 7.7 % (4.0-6.0) H 08/02/17 15:37 Whole Bld Lactic Acid 1.97 mmol/L (0.60-1.99) 08/02/17 13:49 Calcium 8.7 mg/dL (8.6-10.3) 08/20/17 04:45 Magnesium 2.1 mg/dL (1.9-2.7) 08/19/17 04:58 Iron 10 ug/dL (27-139) L 08/02/17 13:56 TIBC 135 ug/dL (250-450) L 08/02/17 13:56 Iron Saturation 7 % (15-55) L 08/02/17 13:56 Unsaturated IBC 125 ug/dL (118-369) 08/02/17 13:56 Ferritin 588 ng/mL (15-150) H 08/02/17 13:56 Total Bilirubin 0.4 mg/dL (0.3-1.0) 08/19/17 04:58 Direct Bilirubin 0.09 mg/dL (0.0-0.2) 08/02/17 13:57 AST 37 U/L (13-39) 08/19/17 04:58 ALT 10 U/L (7-52) 08/19/17 04:58 Alkaline Phosphatase 72 U/L (34-104) 08/19/17 04:58 Troponin I 1.16 ng/mL (0.01-0.05) H* D 08/04/17 06:30 B-Natriuretic Peptide 839.0 pg/mL (5.0-100.0) H 08/19/17 04:58 Total Protein 7.5 gm/dL (6.0-8.3) 08/19/17 04:58 Albumin 2.8 gm/dL (3.7-5.3) L 08/19/17 04:58 Globulin 4.7 gm/dL 08/19/17 04:58 Albumin/Globulin Ratio 0.6 (1.0-1.8) L 08/19/17 04:58 Triglycerides 132 mg/dL (<150) 08/04/17 06:30 Cholesterol 55 mg/dL (<200) 08/04/17 06:30 LDL Cholesterol Direct 16 mg/dL (75-193) L 08/04/17 06:30 HDL Cholesterol 13 mg/dL (23-92) L 08/04/17 06:30 Amylase 12 U/L (29-103) L 08/02/17 13:43 Lipase 4 U/L (11-82) L 08/02/17 13:43 TSH 3.74 uIU/ml (0.34-5.60) 08/04/17 06:30 Stool Occult Blood POSITIVE (NEGATIVE) H 08/03/17 17:50 Random Vancomycin 14.8 ug/mL (5.0-40.0) 08/09/17 06:34 Hepatitis A IgM Ab Negative (Negative) 08/08/17 08:15 Hep Bs Antigen Negative (Negative) 08/08/17 08:15 Hep B Core IgM Ab Negative (Negative) 08/08/17 08:15 Hepatitis C Antibody <0.1 s/co ratio (0.0-0.9) 08/08/17 08:15 Blood Type A POSITIVE 08/15/17 07:50 Antibody Screen POSITIVE 08/15/17 07:50 Antibody Identification Anti-K 08/15/17 07:50 NEVILLE, IgG Interpret NEGATIVE 08/15/17 07:50 Crossmatch See Detail 08/15/17 07:50 - Physical Exam Vitals and I&O: Vital Signs Temp 97.2 F 08/20/17 13:00 Pulse 74 08/20/17 13:45 Resp 16 08/20/17 13:00 BP 98/29 08/20/17 13:45 Pulse Ox 100 08/20/17 14:00 Intake & Output 08/19/17 08/20/17 08/20/17 18:59 06:59 18:59 Intake Total 1398.802 913.445 447.442 Output Total 0 0 Balance 1398.802 913.445 447.442 Weight (lbs) 42.184 kg 93.213 kg Intake: Intake, IV Amount 148.802 313.445 447.442 Norepinephrine 8 mg In 148.802 195.112 187.05 Sodium Chloride 0.9% 250 ml @ 0 MCG/MIN IV TITR PRN Rx#:[id number] Piperacillin Sodium/ 118.333 Tazobact 2.25 gm In Sodium Chloride 0.9% 50 ml @ 100 mls/hr IV Q6HR FOUZIA Rx#:[id number] Piperacillin Sodium/ 50 Tazobact 2.25 gm In Sodium Chloride 0.9% 50 ml @ 100 mls/hr IV Q6HR [facility] Rx#:[id number] Oral 0 Tube Feeding 1200 600 Other 50 Output: Urine 0 0 Other: # Bowel Movements 1 0 Active Medications: Current Medications Acetaminophen (Tylenol) 650 mg GT DAILY [facility]OUZ[facility] Stop: 10/20/17 08:59 Albuterol/Ipratropium (Duoneb Neb) 3 ml HHN Q4HRT FOUZIA Stop: 10/19/17 10:59 Last Admin: 08/20/17 12:00 Dose: 3 ml Amiodarone HCl (Cordarone) 200 mg GT Q12H [facility]OUZIA Stop: 10/20/17 10:59 Ascorbic Acid (Vitamin C) 500 mg PO DAILY [facility]OUZIA Stop: 10/20/17 08:59 Aspirin (Aspirin Chewable) 81 mg PO DAILY FOUZIA Stop: 10/20/17 08:59 Atorvastatin Calcium (Lipitor) 40 mg GT DAILY [facility]OU[facility]IA PRN Reason: Protocol Stop: 10/20/17 08:59 Bisacodyl (Dulcolax 10 Mg Supp) 10 mg RC Q72HR [facility]OUZ[facility] Stop: 10/19/17 11:29 Chlorhexidine Gluconate (Peridex) 15 ml MM 08,1999 [facility] Stop: 10/19/17 19:59 Cholecalciferol (Vitamin D3) 1,000 iu PO DAILY [facility] Stop: 10/20/17 08:59 Diltiazem HCl (Cardizem) 20 mg IV Q4HR PRN PRN Reason: HR ABOVE 120 Stop: 08/27/17 11:59 Docusate Sodium (Colace) 100 mg PO DAILY [facility]ZIA Stop: 10/20/17 08:59 Heparin Sodium (Porcine) (Heparin) 5,000 units SUBQ Q12HR [facility] Stop: 10/19/17 20:59 Levofloxacin (Levaquin Pb) 250 mg in 50 mls @ 50 mls/hr IV Q48HR [facility]OUZIA Stop: 10/18/17 08:59 Last Admin: 08/19/17 14:48 Dose: 50 mls/hr Amiodarone HCl 450 mg/ (Dextrose) 259 mls @ 0 mls/hr IV TITR FOUZIA; Titrate PRN Reason: Protocol Stop: 08/21/17 10:29 Last Admin: 08/20/17 12:00 Dose: 1 mg/hr, 0.57 mls/hr Dopamine HCl/Dextrose (Dopamine) 400 mg in 250 mls @ 0 mls/hr IV TITR PRN; Protocol; 0 MCG/KG/MIN PRN Reason: BP MAINTENANCE (PER PROTOCOL) Stop: 10/19/17 11:28 Piperacillin Sod/Tazobactam (Sod 2.25 gm/ Sodium Chloride) 50 mls @ 100 mls/hr IV Q6HR [facility] Stop: 10/19/17 11:59 Last Infusion: 08/20/17 12:30 Dose: Infused Norepinephrine Bitartrate 8 mg (/ Sodium Chloride) 258 mls @ 34.83 mls/hr IV TITR PRN; Protocol; 18 MCG/MIN PRN Reason: BP MAINTENANCE (PER PROTOCOL) Stop: 10/19/17 11:09 Insulin Aspart (Novolog Insulin Sliding Scale) 0 units SUBQ Q6HR FOUZIA PRN Reason: Protocol Stop: 10/19/17 11:59 Last Admin: 08/20/17 12:00 Dose: 6 units Insulin Detemir (Levemir Insulin) 16 units SUBQ HS FOUZIA PRN Reason: Protocol Stop: 10/19/17 20:59 Lactobacillus Rhamnosus (Culturelle 15b) 1 each PO DAILY [facility] Stop: 10/20/17 08:59 Lorazepam (Ativan) 2 mg IVP Q4HR PRN; Protocol PRN Reason: Agitation Stop: 10/15/17 11:49 Last Admin: 08/20/17 08:25 Dose: 2 mg Magnesium Hydroxide (Milk Of Magnesia) 30 ml PO Q72HR [facility] Stop: 10/19/17 11:44 Mirtazapine (Remeron) 15 mg GT HS FOUZIA PRN Reason: Protocol Stop: 10/19/17 20:59 Multivitamins/Vitamin C (Theragran) 1 tab PO DAILY [facility]OUZIA Stop: 10/20/17 08:59 Ondansetron HCl (Zofran) 4 mg IV Q6H PRN PRN Reason: Nausea / Vomiting Stop: 10/19/17 11:40 Pantoprazole Sodium (Protonix) 40 mg IVP DAILY FOUZIA Stop: 10/20/17 08:59 Simethicone (Mylicon) 80 mg GT Q6HR PRN PRN Reason: Gas Stop: 10/19/17 11:59 Sodium Phosphate (Fleet Enema) 135 ml RC PRN PRN PRN Reason: If MOM/Dulcolax ineffective Stop: 10/19/17 11:29 Zinc Sulfate (Zinc Sulfate) 220 mg PO DAILY FOUZIA Stop: 10/20/17 08:59 General: Alert, No acute distress (scattered rhonchi) HEENT: Atraumatic, PERRLA, EOMI, Mucous membr. moist/pink Neck: Supple, Other (TRACH) Cardiovascular: Regular rate Lungs: Other (coarse rhonchi) Abdomen: Bowel sounds, Soft, Other (INTACT GT) Extremities: Edema (upper wxtrmities), Other (upper ext) Neurological: Sensation intact Skin: no Rash Psych/Mental Status: Mood NL - Procedures Procedures: Procedures Procedure Code Date BLOOD TRANSFUSION SERVICE 61030 08/02/17 EXCISION OF STOMACH, ENDO, DIAGN [id number] 07/10/17 INSPECTION OF LOWER INTESTINAL TRACT, ENDO [id number] 07/10/17 PERFORMANCE OF URINARY FILTRATION, <6 HRS/DAY [id number] 07/10/17 RESPIRATORY VENTILATION, GREATER THAN 96 CONSECUTIVE HOURS [id number] 08/02/17 TRANSFUSE NONAUT RED BLOOD CELLS IN PERIPH VEIN, PERC 94853G2 08/02/17 Assessment/Plan - Assessment Assessment: 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/L UE Edema, Cellulitis Shock Sepsis RF on Vent Acute on Chronic Decomp CHF G (-) Septicemia A. fib to V. tach - Plan Plan: Lab - Result Diagrams 08/04/17 06:30 08/04/17 06:30 Current Medications Acetaminophen (Tylenol 650mg/20.3ml Suspension) 650 mg GT DAILY FOUZIA Stop: 10/03/17 08:59 Last Admin: 08/04/17 09:18 Dose: 650 mg Albuterol/Ipratropium (Duoneb Neb) 3 ml HHN Q4HRT [facility]OU[facility]IA Stop: 10/02/17 10:59 Last Admin: 08/04/17 11:25 Dose: 3 ml Ascorbic Acid (Vitamin C) 500 mg PO DAILY FOUZIA Stop: 10/03/17 08:59 Last Admin: 08/04/17 09:18 Dose: 500 mg Aspirin (Aspirin Chewable) 81 mg GT DAILY FOUZIA Stop: 10/03/17 08:59 Last Admin: 08/04/17 09:18 Dose: 81 mg Atorvastatin Calcium (Lipitor) 40 mg GT HS FOUZIA PRN Reason: Protocol Stop: 10/02/17 20:59 Last Admin: 08/03/17 20:19 Dose: 40 mg Bisacodyl (Dulcolax 10 Mg Supp) 10 mg RC Q72HR PRN PRN Reason: IF MOM INEFFECTIVE Stop: 10/02/17 14:13 Bisacodyl (Dulcolax 10 Mg Supp) 10 mg RC PRN PRN PRN Reason: IF MOM INEFFECTIVE Stop: 10/02/17 14:13 Chlorhexidine Gluconate (Peridex) 15 ml MM 0800,2000 [facility]OU[facility] Stop: 10/02/17 07:59 Last Admin: 08/04/17 08:00 Dose: 15 ml Cholecalciferol (Vitamin D3) 1,000 iu GT DAILY FOUZIA Stop: 10/03/17 08:59 Last Admin: 08/04/17 09:18 Dose: 1,000 iu Diltiazem HCl (Cardizem) 5 mg IVP Q4H PRN PRN Reason: INCREASE HEART RATE Stop: 10/01/17 21:59 Last Admin: 08/03/17 01:38 Dose: 5 mg Docusate Sodium (Colace) 100 mg PO DAILY FOUZIA Stop: 10/03/17 08:59 Last Admin: 08/04/17 09:18 Dose: 100 mg Heparin Sodium (Porcine) (Heparin) 5,000 units HD UD FOUZIA Stop: 08/05/17 08:59 Last Admin: 08/04/17 09:19 Dose: Not Given Fluconazole (Diflucan) 200 mg in 100 mls @ 100 mls/hr IV Q24HR [facility]OUIZA Stop: 10/02/17 14:59 Last Infusion: 08/03/17 15:40 Dose: Infused Meropenem 500 mg/ Sodium (Chloride) 100 mls @ 100 mls/hr IV Q24H [facility] Stop: 10/02/17 12:59 Last Admin: 08/04/17 13:17 Dose: 100 mls/hr Dopamine HCl/Dextrose (Dopamine) 400 mg in 250 mls @ 0 mls/hr IV TITR PRN; Protocol; Per Protocol PRN Reason: BP MAINTENANCE (PER PROTOCOL) Stop: 10/02/17 07:47 Norepinephrine Bitartrate 4 mg (/ Dextrose) 254 mls @ 0 mls/hr IV TITR PRN; Protocol; Per Protocol PRN Reason: BP MAINTENANCE (PER PROTOCOL) Stop: 10/02/17 08:31 Last Admin: 08/03/17 23:47 Dose: 4 mcg/min, 15.24 mls/hr Colistimethate Sodium 80 mg/ (Sodium Chloride) 100 mls @ 100 mls/hr IV Q36H [facility]OUZIA Stop: 10/02/17 20:59 Last Infusion: 08/03/17 21:20 Dose: Infused Insulin Aspart (Novolog Insulin Sliding Scale) 0 units SUBQ Q6HR FOUZIA PRN Reason: Protocol Stop: 10/02/17 00:00 Last Admin: 08/04/17 11:30 Dose: 6 units Lorazepam (Ativan) 1 mg IVP Q2HR PRN; Protocol PRN Reason: Restlessness Stop: 10/01/17 21:18 Last Admin: 08/04/17 01:05 Dose: 1 mg Magnesium Hydroxide (Milk Of Magnesia) 30 ml GT Q72H PRN PRN Reason: NO BM FOR THREE DAYS Stop: 10/02/17 14:13 Mirtazapine (Remeron) 15 mg GT HS FOUZIA PRN Reason: Protocol Stop: 10/02/17 20:59 Last Admin: 08/03/17 20:19 Dose: 15 mg Miscellaneous (Vancomycin Iv Per Pharmacy) 1 ea PRN PRN PRN Reason: PROTOCOL Stop: 10/01/17 20:42 Miscellaneous (Zosyn Iv Per Pharmacy) 1 ea PRN PRN PRN Reason: PROTOCOL Stop: 10/01/17 20:42 Multivitamins/Vitamin C (Theragran) 1 tab PO DAILY [facility] Stop: 10/03/17 08:59 Last Admin: 08/04/17 09:18 Dose: 1 tab Ondansetron HCl (Zofran Odt) 4 mg PO Q6HR PRN PRN Reason: Nausea / Vomiting Stop: 10/02/17 14:13 Pantoprazole Sodium (Protonix) 40 mg IVP DAILY [facility]OUZIA Stop: 10/02/17 08:59 Last Admin: 08/04/17 09:18 Dose: 40 mg Simethicone (Mylicon) 80 mg GT Q6H PRN PRN Reason: GAS PAIN Stop: 10/02/17 14:13 Sodium Phosphate (Fleet Enema) 118 ml RC PRN PRN PRN Reason: IF MOM/DULCOLAX INEFFECTIVE Stop: 10/02/17 14:13 Temazepam (Restoril) 15 mg GT HS PRN; Protocol PRN Reason: Insomnia Stop: 10/02/17 14:13 Last Admin: 08/03/17 20:19 Dose: 15 mg Zinc Sulfate (Zinc Sulfate) 220 mg GT DAILY FOUZIA Stop: 10/03/17 08:59 Last Admin: 08/04/17 09:18 Dose: 220 Lab - Result Diagrams 08/20/17 04:45 08/20/17 04:45 schedule for HD in am Venous & Arterial duplex scans were negative for DVT or clots CXR still showed persistent b/l effusions, CHF, left > right replace K f/u electrolytes. cbc Reccurence of shock, on levo 10 mcg, Amiodarone BS low, monitor closely, hold Levemir, continue S/S Nutritional Asmnt/Malnutr-PDOC - Dietary Evaluation Malnutrition Findings (Please click <Entered> for more info): Nutritional Asmnt/Malnutrition Start: 08/05/17 15: 53 Text: Status: Complete Freq: Document 08/05/17 15:53 LCHENG (Rec: 08/05/17 16:19 LCHENG [id number]) Nutritional Asmnt/Malnutrition Patient General Information Nutritional Screening High Risk Diagnosis sepsis, respiratory failure, ESRD Pertinent Medical Hx/Surgical Hx ESRD on HD, respiratory failure with tracheostomy, dysphagia, a fib, anemia, HTN, GERD Subjective Information Pt on vent, not able to interview. Pt was on TF Novosource Renal 30ml/hr continuous, NPO today for surgery. Pt has dialysis ordred per nurse note. Current Diet Order/ Nutrition Support NPO on 08/05 Pertinent Medications vit C, vit D3, colace, novolog , remeron, theragran, protonix , zinc Pertinent Labs 08/05 Na 134, K 3.6, Cl 102, BUN 77, Cr 4.2, Glucose 216, POC 224-233 08/02 A1c 7.7 Nutritional Hx/Data Height 1.6 m Height (Calculated Centimeters) 160.0 Current Weight (lbs) 87.543 kg Weight (Calculated Kilograms) 87.5 Weight (Calculated Grams) 66840.3 [place] Body Weight 115 Body Mass Index (BMI) 34.2 Weight Status Obese GI Symptoms GI Symptoms None Last BM 08/04 Difficult in: None Skin Integrity/Comment: reddened to left/right inner thigh, right lateral index finger, right/left arm; skin tear to left abdominal fold; pressure area to coccy/sacral Estimated Nutritional Goals BEE in Kcals: Adj wt of IBW Calories/Kcals/Kg 30-35 adj wt 61kg Kcals Calculated 9116-9226 Protein: Adj wt of IBW Protein g/k.2-1.4 Protein Calculated 73-85 Fluid: ml 1830-2135ml (1ml/kcal) Nutritional Problem 1. Problem Problem altered nutrition related lab values Etiology hx of ESRD, endocrine dysfunction Signs/Symptoms: BUN 77, Cr 4.2, Glucose 216, POC 224-233, A1c 7.7 Malnutrition Alert Protein-Calorie Malnutrition N/A Is there a minimum of two criteria No selected? Query Text:Check all the applicable criteria. A minimum of two criteria are recommended for diagnosis of either severe or non-severe malnutrition. Intervention/Recommendation Comments 1. Resume TF Novosource Renal 30ml/hr continuous as ordered. increase to goal rate of 40ml /hr continuous as tolerated. This will provide 1920kcal, 87g protein and 688ml free water, meeting 100% of nutritional needs 2. Monitor TF rate, tolerance, wt weekly, skin integrity and labs 3. F/U as high risk in 2-3 days, 08/07-08/08 Expected Outcomes/Goals Expected Outcomes/Goals 1. Pt to meet at least 75% of nutritional needs via nutrition support with tolerance 2. Wt stability, skin to remain intact, labs to approach WNL.
[2017-08-20] MEDS ORDERED: Magnesium Hydroxide (MOM) 30 mL UDC PO PRN (15:24)
--- NOTE | 2017-08-20 16:52 | Internal Medicine Prog Note ---
Internal Medicine Subjective - Subjective Patient is:: awake, non-verbal Per staff patient has:: tolerating meds Internal Medicine Objective - Results Result Diagrams: 08/20/17 04:45 08/20/17 04:45 Recent Labs: Laboratory Last Values WBC 12.4 Th/cmm (4.8-10.8) H 08/20/17 04:45 RBC 2.70 Mil/cmm (3.80-5.20) L 08/20/17 04:45 Hgb 8.3 gm/dL (12-16) L 08/20/17 04:45 Hct 24.7 % (41.0-60) L 08/20/17 04:45 MCV 91.4 fl (81-100) 08/20/17 04:45 MCH 30.7 pg (27.0-31.0) 08/20/17 04:45 MCHC Differential 33.6 pg (28.0-36.0) 08/20/17 04:45 RDW 16.6 % (11.5-20.0) 08/20/17 04:45 Plt Count 378 Th/cmm (150-400) 08/20/17 04:45 MPV 10.0 fl 08/20/17 04:45 Neutrophils % 81.8 % (40.0-80.0) H 08/19/17 04:58 Band Neutrophils % 1 % (0-10) 08/20/17 04:45 Lymphocytes % 4.8 % (20.0-50.0) L 08/19/17 04:58 Monocytes % 9.4 % (2.0-10.0) 08/19/17 04:58 Eosinophils % 3.3 % (0.0-5.0) 08/19/17 04:58 Basophils % 0.7 % (0.0-2.0) 08/19/17 04:58 Neutrophils (Manual) 83 % (40-80) H 08/20/17 04:45 Lymphocytes 8 % (20-50) L 08/20/17 04:45 Monocytes 6 % (2-10) 08/20/17 04:45 Eosinophils 2 % (0-5) 08/20/17 04:45 Basophils 1 % (0-3) 08/17/17 06:23 Hypochromia 1+ 02/24/18 15:37 Platelet Estimate ADEQUATE (NORMAL) 08/20/17 04:45 Platelet Morphology NORMAL (NORMAL) 08/20/17 04:45 Anisocytosis 1+ 08/07/17 05:45 Crenated Cell 2+ 08/02/17 15:37 RBC Morph Micro Appear ABNORMAL (NORMAL) 08/02/17 15:37 PT 12.9 SECONDS (9.5-11.5) H 08/02/17 13:58 INR 1.23 (0.5-1.4) 08/02/17 13:58 PTT (Actin FS) 33.6 SECONDS (26.0-38.0) 08/02/17 13:58 Specimen Source Arterial 08/03/17 08:58 Sample Site Right Radial 08/03/17 08:58 pH 7.42 (7.35-7.45) 08/03/17 08:58 pCO2 37.0 mmHg (35.0-45.0) 08/03/17 08:58 pO2 204.0 mmHg (80.0-100.0) H 08/03/17 08:58 HCO3 24.8 mEq/L (20.0-26.0) 08/03/17 08:58 Base Excess -0.2 mEq/L (-3.0-3.0) 08/03/17 08:58 O2 Saturation 100.0 % (92.0-100.0) 08/03/17 08:58 Rhett Test Positive 08/03/17 08:58 Vent Rate 12 08/03/17 08:58 Inspired O2 60 08/03/17 08:58 Tidal Volume 450 08/03/17 08:58 PEEP 5 08/03/17 08:58 Pressure (ins/psv/peep) NA 08/03/17 08:58 Critical Value LZHANG 08/03/17 08:58 Sodium 132 mEq/L (136-145) L 08/20/17 04:45 Potassium 3.3 mEq/L (3.5-5.1) L 08/20/17 04:45 Chloride 100 mEq/L (98-107) 08/20/17 04:45 Carbon Dioxide 21.7 mEq/L (21.0-31.0) 08/20/17 04:45 Anion Gap 13.6 (7.0-16.0) 08/20/17 04:45 BUN 46 mg/dL (7-25) H 08/20/17 04:45 Creatinine 2.7 mg/dL (0.6-1.2) H 08/20/17 04:45 Est GFR ( Amer) TNP 08/20/17 04:45 Est GFR (Non-Af Amer) TNP 08/20/17 04:45 BUN/Creatinine Ratio 17.0 08/20/17 04:45 Glucose 228 mg/dL (70-105) H D 08/20/17 04:45 POC Glucose 288 MG/DL (70 - 105) H 08/20/17 11:57 Hemoglobin A1c % 7.7 % (4.0-6.0) H 08/02/17 15:37 Whole Bld Lactic Acid 1.97 mmol/L (0.60-1.99) 08/02/17 13:49 Calcium 8.7 mg/dL (8.6-10.3) 08/20/17 04:45 Magnesium 2.1 mg/dL (1.9-2.7) 08/19/17 04:58 Iron 10 ug/dL (27-139) L 08/02/17 13:56 TIBC 135 ug/dL (250-450) L 08/02/17 13:56 Iron Saturation 7 % (15-55) L 08/02/17 13:56 Unsaturated IBC 125 ug/dL (118-369) 08/02/17 13:56 Ferritin 588 ng/mL (15-150) H 08/02/17 13:56 Total Bilirubin 0.4 mg/dL (0.3-1.0) 08/19/17 04:58 Direct Bilirubin 0.09 mg/dL (0.0-0.2) 08/02/17 13:57 AST 37 U/L (13-39) 08/19/17 04:58 ALT 10 U/L (7-52) 08/19/17 04:58 Alkaline Phosphatase 72 U/L (34-104) 08/19/17 04:58 Troponin I 1.16 ng/mL (0.01-0.05) H* D 08/04/17 06:30 B-Natriuretic Peptide 839.0 pg/mL (5.0-100.0) H 08/19/17 04:58 Total Protein 7.5 gm/dL (6.0-8.3) 08/19/17 04:58 Albumin 2.8 gm/dL (3.7-5.3) L 08/19/17 04:58 Globulin 4.7 gm/dL 08/19/17 04:58 Albumin/Globulin Ratio 0.6 (1.0-1.8) L 08/19/17 04:58 Triglycerides 132 mg/dL (<150) 08/04/17 06:30 Cholesterol 55 mg/dL (<200) 08/04/17 06:30 LDL Cholesterol Direct 16 mg/dL (75-193) L 08/04/17 06:30 HDL Cholesterol 13 mg/dL (23-92) L 08/04/17 06:30 Amylase 12 U/L (29-103) L 08/02/17 13:43 Lipase 4 U/L (11-82) L 08/02/17 13:43 TSH 3.74 uIU/ml (0.34-5.60) 08/04/17 06:30 Stool Occult Blood POSITIVE (NEGATIVE) H 08/03/17 17:50 Random Vancomycin 14.8 ug/mL (5.0-40.0) 08/09/17 06:34 Hepatitis A IgM Ab Negative (Negative) 08/08/17 08:15 Hep Bs Antigen Negative (Negative) 08/08/17 08:15 Hep B Core IgM Ab Negative (Negative) 08/08/17 08:15 Hepatitis C Antibody <0.1 s/co ratio (0.0-0.9) 08/08/17 08:15 Blood Type A POSITIVE 08/15/17 07:50 Antibody Screen POSITIVE 08/15/17 07:50 Antibody Identification Anti-K 08/15/17 07:50 NEVILLE, IgG Interpret NEGATIVE 08/15/17 07:50 Crossmatch See Detail 08/15/17 07:50 - Physical Exam Vitals and I&O: Vital Signs Temp 97.9 F 08/20/17 16:00 Pulse 85 08/20/17 16:45 Resp 12 08/20/17 16:00 BP 104/50 08/20/17 16:45 Pulse Ox 100 08/20/17 16:00 Intake & Output 08/19/17 08/20/17 08/20/17 18:59 06:59 18:59 Intake Total 1398.802 913.445 447.442 Output Total 0 0 Balance 1398.802 913.445 447.442 Weight (lbs) 42.184 kg 93.213 kg Intake: Intake, IV Amount 148.802 313.445 447.442 Norepinephrine 8 mg In 148.802 195.112 187.05 Sodium Chloride 0.9% 250 ml @ 0 MCG/MIN IV TITR PRN Rx#:[id number] Piperacillin Sodium/ 118.333 Tazobact 2.25 gm In Sodium Chloride 0.9% 50 ml @ 100 mls/hr IV Q6HR [facility] Rx#:[id number] Piperacillin Sodium/ 50 Tazobact 2.25 gm In Sodium Chloride 0.9% 50 ml @ 100 mls/hr IV Q6HR [facility] Rx#:[id number] Oral 0 Tube Feeding 1200 600 Other 50 Output: Urine 0 0 Other: # Bowel Movements 1 0 Active Medications: Current Medications Acetaminophen (Tylenol) 650 mg GT DAILY [facility] Stop: 10/20/17 08:59 Albuterol/Ipratropium (Duoneb Neb) 3 ml HHN Q4HRT [facility] Stop: 10/19/17 10:59 Last Admin: 08/20/17 15:54 Dose: 3 ml Amiodarone HCl (Cordarone) 200 mg GT Q12H [facility] Stop: 10/20/17 10:59 Ascorbic Acid (Vitamin C) 500 mg PO DAILY [facility] Stop: 10/20/17 08:59 Aspirin (Aspirin Chewable) 81 mg PO DAILY [facility] Stop: 10/20/17 08:59 Atorvastatin Calcium (Lipitor) 40 mg GT DAILY [facility] PRN Reason: Protocol Stop: 10/20/17 08:59 Bisacodyl (Dulcolax 10 Mg Supp) 10 mg RC Q72HR PRN PRN Reason: if MOM ineffective Stop: 10/19/17 11:29 Chlorhexidine Gluconate (Peridex) 15 ml MM 0800,1999 [facility] Stop: 10/19/17 19:59 Cholecalciferol (Vitamin D3) 1,000 iu PO DAILY [facility] Stop: 10/20/17 08:59 Diltiazem HCl (Cardizem) 20 mg IV Q4HR PRN PRN Reason: HR ABOVE 120 Stop: 08/27/17 11:59 Docusate Sodium (Colace) 100 mg PO DAILY [facility] Stop: 10/20/17 08:59 Heparin Sodium (Porcine) (Heparin) 5,000 units SUBQ Q12HR [facility] Stop: 10/19/17 20:59 Levofloxacin (Levaquin Pb) 250 mg in 50 mls @ 50 mls/hr IV Q48HR [facility] Stop: 10/18/17 08:59 Last Admin: 08/19/17 14:48 Dose: 50 mls/hr Amiodarone HCl 450 mg/ (Dextrose) 259 mls @ 0 mls/hr IV TITR [facility]; Titrate PRN Reason: Protocol Stop: 08/21/17 10:29 Last Admin: 08/20/17 12:00 Dose: 1 mg/hr, 0.57 mls/hr Dopamine HCl/Dextrose (Dopamine) 400 mg in 250 mls @ 0 mls/hr IV TITR PRN; Protocol; 0 MCG/KG/MIN PRN Reason: BP MAINTENANCE (PER PROTOCOL) Stop: 10/19/17 11:28 Piperacillin Sod/Tazobactam (Sod 2.25 gm/ Sodium Chloride) 50 mls @ 100 mls/hr IV Q6HR [facility] Stop: 10/19/17 11:59 Last Infusion: 08/20/17 12:30 Dose: Infused Norepinephrine Bitartrate 8 mg (/ Sodium Chloride) 258 mls @ 34.83 mls/hr IV TITR PRN; Protocol; 18 MCG/MIN PRN Reason: BP MAINTENANCE (PER PROTOCOL) Stop: 10/19/17 11:09 Albumin Human (Albuminar 25%) 25 gm in 100 mls @ 50 mls/hr IV X1 ONE Stop: 08/21/17 17:14 Albumin Human (Albuminar 25%) 25 gm in 100 mls @ 50 mls/hr IV X1 ONE Stop: 08/21/17 17:16 Insulin Aspart (Novolog Insulin Sliding Scale) 0 units SUBQ Q6HR [facility] PRN Reason: Protocol Stop: 10/19/17 11:59 Last Admin: 08/20/17 12:00 Dose: 6 units Insulin Detemir (Levemir Insulin) 16 units SUBQ HS [facility] PRN Reason: Protocol Stop: 10/19/17 20:59 Lactobacillus Rhamnosus (Culturelle 15b) 1 each PO DAILY [facility] Stop: 10/20/17 08:59 Lorazepam (Ativan) 2 mg IVP Q4HR PRN; Protocol PRN Reason: Agitation Stop: 10/15/17 11:49 Last Admin: 08/20/17 15:43 Dose: 2 mg Magnesium Hydroxide (Milk Of Magnesia) 30 ml PO Q72HR PRN PRN Reason: Constipation Stop: 10/19/17 11:44 Mirtazapine (Remeron) 15 mg GT HS [facility] PRN Reason: Protocol Stop: 10/19/17 20:59 Multivitamins/Vitamin C (Theragran) 1 tab PO DAILY [facility] Stop: 10/20/17 08:59 Ondansetron HCl (Zofran) 4 mg IV Q6H PRN PRN Reason: Nausea / Vomiting Stop: 10/19/17 11:40 Pantoprazole Sodium (Protonix) 40 mg IVP DAILY [facility] Stop: 10/20/17 08:59 Simethicone (Mylicon) 80 mg GT Q6HR PRN PRN Reason: Gas Stop: 10/19/17 11:59 Sodium Phosphate (Fleet Enema) 135 ml RC PRN PRN PRN Reason: If MOM/Dulcolax ineffective Stop: 10/19/17 11:29 Zinc Sulfate (Zinc Sulfate) 220 mg PO DAILY [facility] Stop: 10/20/17 08:59 General: weak, obtunded HEENT: NC/AT, PERRLA Neck: Supple Lungs: ronchi Abdomen: soft, non-tender, non-distended, +GT Neurological: unable to follow command - Procedures Procedures: Procedures Procedure Code Date BLOOD TRANSFUSION SERVICE 29904 08/02/17 EXCISION OF STOMACH, ENDO, DIAGN [id number] 07/10/17 INSPECTION OF LOWER INTESTINAL TRACT, ENDO [id number] 07/10/17 PERFORMANCE OF URINARY FILTRATION, <6 HRS/DAY [id number] 07/10/17 RESPIRATORY VENTILATION, GREATER THAN 96 CONSECUTIVE HOURS [id number] 08/02/17 TRANSFUSE NONAUT RED BLOOD CELLS IN PERIPH VEIN, PERC 14336H3 08/02/17 Nutritional Asmnt/Malnutr-PDOC - Dietary Evaluation Malnutrition Findings (Please click <Entered> for more info): Nutritional Asmnt/Malnutrition Start: 08/05/17 15: 53 Text: Status: Complete Freq: Document 08/05/17 15:53 LCHENG (Rec: 08/05/17 16:19 LCHENG [id number]) Nutritional Asmnt/Malnutrition Patient General Information Nutritional Screening High Risk Diagnosis sepsis, respiratory failure, ESRD Pertinent Medical Hx/Surgical Hx ESRD on HD, respiratory failure with tracheostomy, dysphagia, a fib, anemia, HTN, GERD Subjective Information Pt on vent, not able to interview. Pt was on TF Novosource Renal 30ml/hr continuous, NPO today for surgery. Pt has dialysis ordred per nurse note. Current Diet Order/ Nutrition Support NPO on 08/05 Pertinent Medications vit C, vit D3, colace, novolog , remeron, theragran, protonix , zinc Pertinent Labs 08/05 Na 134, K 3.6, Cl 102, BUN 77, Cr 4.2, Glucose 216, POC 224-233 08/02 A1c 7.7 Nutritional Hx/Data Height 1.6 m Height (Calculated Centimeters) 160.0 Current Weight (lbs) 87.543 kg Weight (Calculated Kilograms) 87.5 Weight (Calculated Grams) 01489.3 Sharon Body Weight 115 Body Mass Index (BMI) 34.2 Weight Status Obese GI Symptoms GI Symptoms None Last BM 08/04 Difficult in: None Skin Integrity/Comment: reddened to left/right inner thigh, right lateral index finger, right/left arm; skin tear to left abdominal fold; pressure area to coccy/sacral Estimated Nutritional Goals BEE in Kcals: Adj wt of IBW Calories/Kcals/Kg 30-35 adj wt 61kg Kcals Calculated 9152-2028 Protein: Adj wt of IBW Protein g/k.2-1.4 Protein Calculated 73-85 Fluid: ml 1830-2135ml (1ml/kcal) Nutritional Problem 1. Problem Problem altered nutrition related lab values Etiology hx of ESRD, endocrine dysfunction Signs/Symptoms: BUN 77, Cr 4.2, Glucose 216, POC 224-233, A1c 7.7 Malnutrition Alert Protein-Calorie Malnutrition N/A Is there a minimum of two criteria No selected? Query Text:Check all the applicable criteria. A minimum of two criteria are recommended for diagnosis of either severe or non-severe malnutrition. Intervention/Recommendation Comments 1. Resume TF Novosource Renal 30ml/hr continuous as ordered. increase to goal rate of 40ml /hr continuous as tolerated. This will provide 1920kcal, 87g protein and 688ml free water, meeting 100% of nutritional needs 2. Monitor TF rate, tolerance, wt weekly, skin integrity and labs 3. F/U as high risk in 2-3 days, 08/07-08/08 Expected Outcomes/Goals Expected Outcomes/Goals 1. Pt to meet at least 75% of nutritional needs via nutrition support with tolerance 2. Wt stability, skin to remain intact, labs to approach WNL.
[2017-08-20] MEDS ORDERED: Mag Sulfate 2gm/50mL Premix 2 GM/50 ML BAG IV ONE (19:26)
[2017-08-20] MEDS: Insulin Detemir 100 units/mL 10mL Vial SUBQ SCH (21:49)
[2017-08-21] MEDS: INSULIN ASPART SLIDING SCALE 100 UNITS/ML UNIT SUBQ SCH ×5 (00:19→23:41)
[2017-08-21] MEDS: Albuterol/Ipratropium Neb 3 ML AERS HHN SCH ×6 (03:25→22:32)
[2017-08-21 08:15] LABS: HEMATOCRIT 25.5 % (41.0-60); HEMOGLOBIN 8.5 gm/dL (12-16); MEAN CELL VOLUME 91.6 fl (81-100); MEAN CORPUSCULAR HEMOGLOBIN 30.4 pg (27.0-31.0); MEAN CORPUSCULAR HGB CONC 33.2 pg (28.0-36.0); MEAN PLATELET VOLUME 11.7 fl; PLATELET COUNT 321 Th/cmm (150-400); RED BLOOD COUNT 2.79 Mil/cmm (3.80-5.20); RED CELL DISTRIBUTION WIDTH 16.6 % (11.5-20.0)
[2017-08-21 08:25] LABS: WHITE BLOOD COUNT 17.8 Th/cmm (4.8-10.8)
[2017-08-21] MEDS: Chlorhexidine Gluconate 0.12% 15mL Mouthwash MM SCH ×2 (08:40→20:18)
--- NOTE | 2017-08-21 08:47 | General Progress Note ---
Subjective - Review of Systems Events since last encounter: awake on vent no distress Subjective: still on levophed Objective - Results Result Diagrams: 08/21/17 07:30 08/20/17 04:45 Recent Labs: Laboratory Last Values WBC 17.8 Th/cmm (4.8-10.8) H 08/21/17 07:30 RBC 2.79 Mil/cmm (3.80-5.20) L 08/21/17 07:30 Hgb 8.5 gm/dL (12-16) L 08/21/17 07:30 Hct 25.5 % (41.0-60) L 08/21/17 07:30 MCV 91.6 fl (81-100) 08/21/17 07:30 MCH 30.4 pg (27.0-31.0) 08/21/17 07:30 MCHC Differential 33.2 pg (28.0-36.0) 08/21/17 07:30 RDW 16.6 % (11.5-20.0) 08/21/17 07:30 Plt Count 321 Th/cmm (150-400) 08/21/17 07:30 MPV 11.7 fl 08/21/17 07:30 Neutrophils % 81.9 % (40.0-80.0) H 08/21/17 07:30 Band Neutrophils % 1 % (0-10) 08/20/17 04:45 Lymphocytes % 3.4 % (20.0-50.0) L 08/21/17 07:30 Monocytes % 11.0 % (2.0-10.0) H 08/21/17 07:30 Eosinophils % 2.6 % (0.0-5.0) 08/21/17 07:30 Basophils % 1.1 % (0.0-2.0) 08/21/17 07:30 Neutrophils (Manual) 83 % (40-80) H 08/20/17 04:45 Lymphocytes 8 % (20-50) L 08/20/17 04:45 Monocytes 6 % (2-10) 08/20/17 04:45 Eosinophils 2 % (0-5) 08/20/17 04:45 Basophils 1 % (0-3) 08/17/17 06:23 Hypochromia 1+ 08/02/17 15:37 Platelet Estimate ADEQUATE (NORMAL) 08/20/17 04:45 Platelet Morphology NORMAL (NORMAL) 08/20/17 04:45 Anisocytosis 1+ 08/07/17 05:45 Crenated Cell 2+ 08/02/17 15:37 RBC Morph Micro Appear ABNORMAL (NORMAL) 08/02/17 15:37 PT 12.9 SECONDS (9.5-11.5) H 08/02/17 13:58 INR 1.23 (0.5-1.4) 08/02/17 13:58 PTT (Actin FS) 33.6 SECONDS (26.0-38.0) 08/02/17 13:58 Specimen Source Arterial 08/03/17 08:58 Sample Site Right Radial 08/03/17 08:58 pH 7.42 (7.35-7.45) 08/03/17 08:58 pCO2 37.0 mmHg (35.0-45.0) 08/03/17 08:58 pO2 204.0 mmHg (80.0-100.0) H 08/03/17 08:58 HCO3 24.8 mEq/L (20.0-26.0) 08/03/17 08:58 Base Excess -0.2 mEq/L (-3.0-3.0) 08/03/17 08:58 O2 Saturation 100.0 % (92.0-100.0) 08/03/17 08:58 Rhett Test Positive 08/03/17 08:58 Vent Rate 12 08/03/17 08:58 Inspired O2 60 08/03/17 08:58 Tidal Volume 450 08/03/17 08:58 PEEP 5 08/03/17 08:58 Pressure (ins/psv/peep) NA 08/03/17 08:58 Critical Value LZHANG 08/03/17 08:58 Sodium 132 mEq/L (136-145) L 08/20/17 04:45 Potassium 3.3 mEq/L (3.5-5.1) L 08/20/17 04:45 Chloride 100 mEq/L (98-107) 08/20/17 04:45 Carbon Dioxide 21.7 mEq/L (21.0-31.0) 08/20/17 04:45 Anion Gap 13.6 (7.0-16.0) 08/20/17 04:45 BUN 46 mg/dL (7-25) H 08/20/17 04:45 Creatinine 2.7 mg/dL (0.6-1.2) H 08/20/17 04:45 Est GFR ( Amer) TNP 08/20/17 04:45 Est GFR (Non-Af Amer) TNP 08/20/17 04:45 BUN/Creatinine Ratio 17.0 08/20/17 04:45 Glucose 228 mg/dL (70-105) H D 08/20/17 04:45 POC Glucose 263 MG/DL (70 - 105) H 08/21/17 06:08 Hemoglobin A1c % 7.7 % (4.0-6.0) H 08/02/17 15:37 Whole Bld Lactic Acid 1.97 mmol/L (0.60-1.99) 08/02/17 13:49 Calcium 8.7 mg/dL (8.6-10.3) 08/20/17 04:45 Magnesium 1.8 mg/dL (1.9-2.7) L 08/20/17 17:00 Iron 10 ug/dL (27-139) L 08/02/17 13:56 TIBC 135 ug/dL (250-450) L 08/02/17 13:56 Iron Saturation 7 % (15-55) L 08/02/17 13:56 Unsaturated IBC 125 ug/dL (118-369) 08/02/17 13:56 Ferritin 588 ng/mL (15-150) H 08/02/17 13:56 Total Bilirubin 0.4 mg/dL (0.3-1.0) 08/19/17 04:58 Direct Bilirubin 0.09 mg/dL (0.0-0.2) 08/02/17 13:57 AST 37 U/L (13-39) 08/19/17 04:58 ALT 10 U/L (7-52) 08/19/17 04:58 Alkaline Phosphatase 72 U/L (34-104) 08/19/17 04:58 Troponin I 0.10 ng/mL (0.01-0.05) H* D 08/20/17 17:00 B-Natriuretic Peptide 839.0 pg/mL (5.0-100.0) H 08/19/17 04:58 Total Protein 7.5 gm/dL (6.0-8.3) 08/19/17 04:58 Albumin 2.8 gm/dL (3.7-5.3) L 08/19/17 04:58 Globulin 4.7 gm/dL 08/19/17 04:58 Albumin/Globulin Ratio 0.6 (1.0-1.8) L 08/19/17 04:58 Triglycerides 132 mg/dL (<150) 08/04/17 06:30 Cholesterol 55 mg/dL (<200) 08/04/17 06:30 LDL Cholesterol Direct 16 mg/dL (75-193) L 08/04/17 06:30 HDL Cholesterol 13 mg/dL (23-92) L 08/04/17 06:30 Amylase 12 U/L (29-103) L 08/02/17 13:43 Lipase 4 U/L (11-82) L 08/02/17 13:43 TSH 3.74 uIU/ml (0.34-5.60) 08/04/17 06:30 Stool Occult Blood POSITIVE (NEGATIVE) H 08/03/17 17:50 Random Vancomycin 14.8 ug/mL (5.0-40.0) 08/09/17 06:34 Hepatitis A IgM Ab Negative (Negative) 08/08/17 08:15 Hep Bs Antigen Negative (Negative) 08/08/17 08:15 Hep B Core IgM Ab Negative (Negative) 08/08/17 08:15 Hepatitis C Antibody <0.1 s/co ratio (0.0-0.9) 08/08/17 08:15 Blood Type A POSITIVE 08/15/17 07:50 Antibody Screen POSITIVE 08/15/17 07:50 Antibody Identification Anti-K 08/15/17 07:50 [place], IgG Interpret NEGATIVE 08/15/17 07:50 Crossmatch See Detail 08/15/17 07:50 - Physical Exam Vitals and I&O: Vital Signs Temp 98.1 F 08/21/17 05:00 Pulse 71 08/21/17 07:55 Resp 17 08/21/17 06:00 BP 128/24 08/21/17 07:00 Pulse Ox 100 08/21/17 07:55 Intake & Output 08/20/17 08/21/17 08/21/17 18:59 06:59 18:59 Intake Total 0067.315 4646.113 Output Total 0 0 Balance 8542.049 9626.113 Weight (lbs) 93.638 kg 93.61 kg Intake: Intake, IV Amount 707.402 309.113 Amiodarone 450 mg In 10.26 Dextrose 5% 250 ml @ Titrate IV TITR [facility] Rx#: [id number] Norepinephrine 8 mg In 347.01 Sodium Chloride 0.9% 250 ml @ 0 MCG/MIN IV TITR PRN Rx#:[id number] Norepinephrine 8 mg In 198.853 Sodium Chloride 0.9% 250 ml @ 18 MCG/MIN 34.83 mls /hr IV TITR PRN Rx#: [id number] Piperacillin Sodium/ 100 100 Tazobact 2.25 gm In Sodium Chloride 0.9% 50 ml @ 100 mls/hr IV Q6HR [facility] Rx#:[id number] Tube Feeding 600 600 Other 300 200 Output: Urine 0 0 Other: # Bowel Movements 0 0 Active Medications: Current Medications Acetaminophen (Tylenol) 650 mg GT DAILY [facility] Stop: 10/20/17 08:59 Albuterol/Ipratropium (Duoneb Neb) 3 ml HHN Q4HRT [facility] Stop: 10/19/17 10:59 Last Admin: 08/21/17 07:50 Dose: 3 ml Amiodarone HCl (Cordarone) 200 mg GT Q12H [facility] Stop: 10/20/17 10:59 Ascorbic Acid (Vitamin C) 500 mg PO DAILY [facility] Stop: 10/20/17 08:59 Aspirin (Aspirin Chewable) 81 mg PO DAILY [facility] Stop: 10/20/17 08:59 Atorvastatin Calcium (Lipitor) 40 mg GT DAILY [facility] PRN Reason: Protocol Stop: 10/20/17 08:59 Bisacodyl (Dulcolax 10 Mg Supp) 10 mg RC Q72HR PRN PRN Reason: if MOM ineffective Stop: 10/19/17 11:29 Chlorhexidine Gluconate (Peridex) 15 ml MM 0800,1999 [facility] Stop: 10/19/17 19:59 Last Admin: 08/20/17 21:52 Dose: 15 ml Cholecalciferol (Vitamin D3) 1,000 iu PO DAILY [facility] Stop: 10/20/17 08:59 Diltiazem HCl (Cardizem) 20 mg IV Q4HR PRN PRN Reason: HR ABOVE 120 Stop: 09/13/17 11:59 Docusate Sodium (Colace) 100 mg PO DAILY [facility] [place] Stop: 10/20/17 08:59 Heparin Sodium (Porcine) (Heparin) 5,000 units SUBQ Q12HR [facility] Stop: 10/19/17 20:59 Last Admin: 08/20/17 21:33 Dose: 5,000 units Levofloxacin (Levaquin Pb) 250 mg in 50 mls @ 50 mls/hr IV Q48HR [facility] Stop: 10/18/17 08:59 Last Admin: 08/19/17 14:48 Dose: 50 mls/hr Amiodarone HCl 450 mg/ (Dextrose) 259 mls @ 0 mls/hr IV TITR [facility]; Titrate PRN Reason: Protocol Stop: 08/21/17 10:29 Last Titration: 08/21/17 06:00 Dose: 0.5 mg/hr, 0.28 mls/hr Dopamine HCl/Dextrose (Dopamine) 400 mg in 250 mls @ 0 mls/hr IV TITR PRN; Protocol; 0 MCG/KG/MIN PRN Reason: BP MAINTENANCE (PER PROTOCOL) Stop: 10/19/17 11:28 Piperacillin Sod/Tazobactam (Sod 2.25 gm/ Sodium Chloride) 50 mls @ 100 mls/hr IV Q6HR [facility] Stop: 10/19/17 11:59 Last Infusion: 08/21/17 06:15 Dose: Infused Norepinephrine Bitartrate 8 mg (/ Sodium Chloride) 258 mls @ 34.83 mls/hr IV TITR PRN; Protocol; 18 MCG/MIN PRN Reason: BP MAINTENANCE (PER PROTOCOL) Stop: 10/19/17 11:09 Last Titration: 08/21/17 06:00 Dose: 10 mcg/min, 19.35 mls/hr Albumin Human (Albuminar 25%) 25 gm in 100 mls @ 50 mls/hr IV X1 ONE Stop: 08/21/17 17:14 Albumin Human (Albuminar 25%) 25 gm in 100 mls @ 50 mls/hr IV X1 ONE Stop: 08/21/17 17:16 Insulin Aspart (Novolog Insulin Sliding Scale) 0 units SUBQ Q6HR [facility] PRN Reason: Protocol Stop: 10/19/17 11:59 Last Admin: 08/21/17 06:18 Dose: 6 units Insulin Detemir (Levemir Insulin) 16 units SUBQ HS [facility] PRN Reason: Protocol Stop: 10/19/17 20:59 Last Admin: 08/20/17 21:49 Dose: 16 units Lactobacillus Rhamnosus (Culturelle 15b) 1 each PO DAILY [facility] Stop: 10/20/17 08:59 Lorazepam (Ativan) 2 mg IVP Q4HR PRN; Protocol PRN Reason: Agitation Stop: 10/15/17 11:49 Last Admin: 08/20/17 20:36 Dose: 2 mg Magnesium Hydroxide (Milk Of Magnesia) 30 ml PO Q72HR PRN PRN Reason: Constipation Stop: 10/19/17 11:44 Mirtazapine (Remeron) 15 mg GT HS [facility] PRN Reason: Protocol Stop: 10/19/17 20:59 Last Admin: 08/20/17 21:33 Dose: 15 mg Multivitamins/Vitamin C (Theragran) 1 tab PO DAILY [facility] Stop: 10/20/17 08:59 Ondansetron HCl (Zofran) 4 mg IV Q6H PRN PRN Reason: Nausea / Vomiting Stop: 10/19/17 11:40 Pantoprazole Sodium (Protonix) 40 mg IVP DAILY [facility] Stop: 10/20/17 08:59 Simethicone (Mylicon) 80 mg GT Q6HR PRN PRN Reason: Gas Stop: 10/19/17 11:59 Sodium Phosphate (Fleet Enema) 135 ml RC PRN PRN PRN Reason: If MOM/Dulcolax ineffective Stop: 10/19/17 11:29 Zinc Sulfate (Zinc Sulfate) 220 mg PO DAILY [facility] Stop: 10/20/17 08:59 General: Alert, No acute distress (scattered rhonchi) HEENT: Atraumatic, PERRLA, EOMI, Mucous membr. moist/pink Neck: Supple, Other (TRACH) Cardiovascular: Regular rate Lungs: Other (coarse rhonchi) Abdomen: Bowel sounds, Soft, Other (INTACT GT) Extremities: Edema (upper wxtrmities), Other (upper ext) Neurological: Sensation intact Skin: no Rash Psych/Mental Status: Mood NL - Procedures Procedures: Procedures Procedure Code Date BLOOD TRANSFUSION SERVICE 51166 08/02/17 EXCISION OF STOMACH, ENDO, DIAGN [id number] 07/10/17 INSPECTION OF LOWER INTESTINAL TRACT, ENDO [id number] 07/10/17 PERFORMANCE OF URINARY FILTRATION, <6 HRS/DAY [id number] 07/10/17 RESPIRATORY VENTILATION, GREATER THAN 96 CONSECUTIVE HOURS [id number] 08/02/17 TRANSFUSE NONAUT RED BLOOD CELLS IN PERIPH VEIN, PERC 80524B9 08/02/17 Nutritional Asmnt/Malnutr-PDOC - Dietary Evaluation Malnutrition Findings (Please click <Entered> for more info): Nutritional Asmnt/Malnutrition Start: 08/05/17 15: 53 Text: Status: Complete Freq: Document 08/05/17 15:53 HEN (Rec: 08/05/17 16:19 LCHENG [id number]) Nutritional Asmnt/Malnutrition Patient General Information Nutritional Screening High Risk Diagnosis sepsis, respiratory failure, ESRD Pertinent Medical Hx/Surgical Hx ESRD on HD, respiratory failure with tracheostomy, dysphagia, a fib, anemia, HTN, GERD Subjective Information Pt on vent, not able to interview. Pt was on TF Novosource Renal 30ml/hr continuous, NPO today for surgery. Pt has dialysis ordred per nurse note. Current Diet Order/ Nutrition Support NPO on 08/05 Pertinent Medications vit C, vit D3, colace, novolog , remeron, theragran, protonix , zinc Pertinent Labs 08/05 Na 134, K 3.6, Cl 102, BUN 77, Cr 4.2, Glucose 216, POC 224-233 08/02 A1c 7.7 Nutritional Hx/Data Height 1.6 m Height (Calculated Centimeters) 160.0 Current Weight (lbs) 87.543 kg Weight (Calculated Kilograms) 87.5 Weight (Calculated Grams) 85625.3 [place] Body Weight 115 Body Mass Index (BMI) 34.2 Weight Status Obese GI Symptoms GI Symptoms None Last BM 08/04 Difficult in: None Skin Integrity/Comment: reddened to left/right inner thigh, right lateral index finger, right/left arm; skin tear to left abdominal fold; pressure area to coccy/sacral Estimated Nutritional Goals BEE in Kcals: Adj wt of IBW Calories/Kcals/Kg 30-35 adj wt 61kg Kcals Calculated 6022-0662 Protein: Adj wt of IBW Protein g/k.2-1.4 Protein Calculated 73-85 Fluid: ml 1830-2135ml (1ml/kcal) Nutritional Problem 1. Problem Problem altered nutrition related lab values Etiology hx of ESRD, endocrine dysfunction Signs/Symptoms: BUN 77, Cr 4.2, Glucose 216, POC 224-233, A1c 7.7 Malnutrition Alert Protein-Calorie Malnutrition N/A Is there a minimum of two criteria No selected? Query Text:Check all the applicable criteria. A minimum of two criteria are recommended for diagnosis of either severe or non-severe malnutrition. Intervention/Recommendation Comments 1. Resume TF Novosource Renal 30ml/hr continuous as ordered. increase to goal rate of 40ml /hr continuous as tolerated. This will provide 1920kcal, 87g protein and 688ml free water, meeting 100% of nutritional needs 2. Monitor TF rate, tolerance, wt weekly, skin integrity and labs 3. F/U as high risk in 2-3 days, 08/07-3 Expected Outcomes/Goals Expected Outcomes/Goals 1. Pt to meet at least 75% of nutritional needs via nutrition support with tolerance 2. Wt stability, skin to remain intact, labs to approach WNL.
[2017-08-21 08:52] LABS: MANUAL DIFF REQUIRED? YES
[2017-08-21 08:53] LABS: BAND NEUTROPHILE 2 % (0-10); BASOPHIL 2 % (0-3); EOSINOPHIL 4 % (0-5); LYMPHOCYTE 6 % (20-50); MONOCYTE 12 % (2-10); NEUTROPHILS 74 % (40-80); PLATELET ESTIMATE ADEQUATE (NORMAL); TOTAL CELLS COUNTED 100
[2017-08-21 08:59] LABS: ANION GAP 18.3 (7.0-16.0); BUN - UREA NITROGEN 58 mg/dL (7-25); CALCIUM SERUM 8.9 mg/dL (8.6-10.3); CARBON DIOXIDE 24.4 mEq/L (21.0-31.0); CHLORIDE 97 mEq/L (98-107); CREATININE - SERUM 3.2 mg/dL (0.6-1.2); GLUCOSE 277 mg/dL (70-105); MAGNESIUM 2.2 mg/dL (1.9-2.7); POTASSIUM SERUM 3.7 mEq/L (3.5-5.1); SODIUM SERUM 136 mEq/L (136-145)
[2017-08-21] MEDS: Levofloxacin 250mg/50mL 250 MG/50 ML BAG IV SCH (09:34)
[2017-08-21] MEDS: Lactobacillus Rhamnosus GG 15 Billion CFU CAP.SPRINK PO SCH (09:36)
[2017-08-21] MEDS: Aspirin 81mg Chewable Tab PO SCH (09:37)
[2017-08-21] MEDS: Multivitamin Tab PO SCH (09:38)
[2017-08-21] MEDS: Piperacillin/Tazobact 2.25 gm in 0.9% NS 50 ML IV SCH (12:11)
--- NOTE | 2017-08-21 13:41 | Internal Medicine Prog Note ---
Internal Medicine Subjective - Subjective Service Date: 08/21/17 (undergoing HD ) Patient is:: awake, non-verbal Per staff patient has:: tolerating meds Internal Medicine Objective - Results Result Diagrams: 08/21/17 07:30 08/21/17 07:30 Recent Labs: Laboratory Last Values WBC 17.8 Th/cmm (4.8-10.8) H 08/21/17 07:30 RBC 2.79 Mil/cmm (3.80-5.20) L 08/21/17 07:30 Hgb 8.5 gm/dL (12-16) L 08/21/17 07:30 Hct 25.5 % (41.0-60) L 08/21/17 07:30 MCV 91.6 fl (81-100) 08/21/17 07:30 MCH 30.4 pg (27.0-31.0) 08/21/17 07:30 MCHC Differential 33.2 pg (28.0-36.0) 08/21/17 07:30 RDW 16.6 % (11.5-20.0) 08/21/17 07:30 Plt Count 321 Th/cmm (150-400) 08/21/17 07:30 MPV 11.7 fl 08/21/17 07:30 Neutrophils % STICK ROLLER 08/21/17 07:30 Band Neutrophils % 2 % (0-10) 08/21/17 07:30 Lymphocytes % STICK ROLLER 08/21/17 07:30 Monocytes % STICK ROLLER 08/21/17 07:30 Eosinophils % STICK ROLLER 08/21/17 07:30 Basophils % STICK ROLLER 08/21/17 07:30 Neutrophils (Manual) 74 % (40-80) 08/21/17 07:30 Lymphocytes 6 % (20-50) L 08/21/17 07:30 Monocytes 12 % (2-10) H 08/21/17 07:30 Eosinophils 4 % (0-5) 08/21/17 07:30 Basophils 2 % (0-3) 08/21/17 07:30 Hypochromia 1+ 08/02/17 15:37 Platelet Estimate ADEQUATE (NORMAL) 08/21/17 07:30 Platelet Morphology NORMAL (NORMAL) 08/20/17 04:45 Anisocytosis 1+ 08/07/17 05:45 Crenated Cell 2+ 08/02/17 15:37 RBC Morph Micro Appear ABNORMAL (NORMAL) 08/02/17 15:37 PT 12.9 SECONDS (9.5-11.5) H 08/02/17 13:58 INR 1.23 (0.5-1.4) 08/02/17 13:58 PTT (Actin FS) 33.6 SECONDS (26.0-38.0) 08/02/17 13:58 Specimen Source Arterial 08/03/17 08:58 Sample Site Right Radial 08/03/17 08:58 pH 7.42 (7.35-7.45) 08/03/17 08:58 pCO2 37.0 mmHg (35.0-45.0) 08/03/17 08:58 pO2 204.0 mmHg (80.0-100.0) H 08/03/17 08:58 HCO3 24.8 mEq/L (20.0-26.0) 08/03/17 08:58 Base Excess -0.2 mEq/L (-3.0-3.0) 08/03/17 08:58 O2 Saturation 100.0 % (92.0-100.0) 08/03/17 08:58 Rhett Test Positive 08/03/17 08:58 Vent Rate 12 08/03/17 08:58 Inspired O2 60 08/03/17 08:58 Tidal Volume 450 08/03/17 08:58 PEEP 5 08/03/17 08:58 Pressure (ins/psv/peep) NA 08/03/17 08:58 Critical Value LZHANG 08/03/17 08:58 Sodium 136 mEq/L (136-145) 08/21/17 07:30 Potassium 3.7 mEq/L (3.5-5.1) 08/21/17 07:30 Chloride 97 mEq/L (98-107) L 08/21/17 07:30 Carbon Dioxide 24.4 mEq/L (21.0-31.0) 08/21/17 07:30 Anion Gap 18.3 (7.0-16.0) H 08/21/17 07:30 BUN 58 mg/dL (7-25) H 08/21/17 07:30 Creatinine 3.2 mg/dL (0.6-1.2) H 08/21/17 07:30 Est GFR ( Amer) TNP 08/21/17 07:30 Est GFR (Non-Af Amer) TNP 08/21/17 07:30 BUN/Creatinine Ratio 18.1 08/21/17 07:30 Glucose 277 mg/dL (70-105) H 08/21/17 07:30 POC Glucose 304 MG/DL (70 - 105) H 08/21/17 11:42 Hemoglobin A1c % 7.7 % (4.0-6.0) H 08/02/17 15:37 Whole Bld Lactic Acid 1.97 mmol/L (0.60-1.99) 08/02/17 13:49 Calcium 8.9 mg/dL (8.6-10.3) 08/21/17 07:30 Magnesium 2.2 mg/dL (1.9-2.7) 08/21/17 07:30 Iron 10 ug/dL (27-139) L 08/02/17 13:56 TIBC 135 ug/dL (250-450) L 08/02/17 13:56 Iron Saturation 7 % (15-55) L 08/02/17 13:56 Unsaturated IBC 125 ug/dL (118-369) 08/02/17 13:56 Ferritin 588 ng/mL (15-150) H 08/02/17 13:56 Total Bilirubin 0.4 mg/dL (0.3-1.0) 08/19/17 04:58 Direct Bilirubin 0.09 mg/dL (0.0-0.2) 08/02/17 13:57 AST 37 U/L (13-39) 08/19/17 04:58 ALT 10 U/L (7-52) 08/19/17 04:58 Alkaline Phosphatase 72 U/L (34-104) 08/19/17 04:58 Troponin I 0.10 ng/mL (0.01-0.05) H* D 08/20/17 17:00 B-Natriuretic Peptide 839.0 pg/mL (5.0-100.0) H 08/19/17 04:58 Total Protein 7.5 gm/dL (6.0-8.3) 08/19/17 04:58 Albumin 2.8 gm/dL (3.7-5.3) L 08/19/17 04:58 Globulin 4.7 gm/dL 08/19/17 04:58 Albumin/Globulin Ratio 0.6 (1.0-1.8) L 08/19/17 04:58 Triglycerides 132 mg/dL (<150) 08/04/17 06:30 Cholesterol 55 mg/dL (<200) 08/04/17 06:30 LDL Cholesterol Direct 16 mg/dL (75-193) L 08/04/17 06:30 HDL Cholesterol 13 mg/dL (23-92) L 08/04/17 06:30 Amylase 12 U/L (29-103) L 08/02/17 13:43 Lipase 4 U/L (11-82) L 08/02/17 13:43 TSH 3.74 uIU/ml (0.34-5.60) 08/04/17 06:30 Stool Occult Blood POSITIVE (NEGATIVE) H 08/03/17 17:50 Random Vancomycin 14.8 ug/mL (5.0-40.0) 08/09/17 06:34 Hepatitis A IgM Ab Negative (Negative) 08/08/17 08:15 Hep Bs Antigen Negative (Negative) 08/08/17 08:15 Hep B Core IgM Ab Negative (Negative) 08/08/17 08:15 Hepatitis C Antibody <0.1 s/co ratio (0.0-0.9) 08/08/17 08:15 Blood Type A POSITIVE 08/15/17 07:50 Antibody Screen POSITIVE 08/15/17 07:50 Antibody Identification Anti-K 08/15/17 07:50 NEVILLE, IgG Interpret NEGATIVE 08/15/17 07:50 Crossmatch See Detail 08/15/17 07:50 - Physical Exam Vitals and I&O: Vital Signs Temp 97.6 F 08/21/17 13:00 Pulse 82 08/21/17 13:00 Resp 24 08/21/17 13:00 BP 89/27 08/21/17 13:00 Pulse Ox 100 08/21/17 13:00 Intake & Output 08/20/17 08/21/17 08/21/17 18:59 06:59 18:59 Intake Total 2135.401 0860.113 118.68 Output Total 0 0 Balance 1213.325 6018.113 118.68 Weight (lbs) 206 lb 7 oz 206 lb 6 oz Intake: Intake, IV Amount 707.402 309.113 118.68 Amiodarone 450 mg In 10.26 Dextrose 5% 250 ml @ Titrate IV TITR [facility] Rx#: [id number] Norepinephrine 8 mg In 347.01 Sodium Chloride 0.9% 250 ml @ 0 MCG/MIN IV TITR PRN Rx#:[id number] Norepinephrine 8 mg In 198.853 118.68 Sodium Chloride 0.9% 250 ml @ 18 MCG/MIN 34.83 mls /hr IV TITR PRN Rx#: [id number] Piperacillin Sodium/ 100 100 Tazobact 2.25 gm In Sodium Chloride 0.9% 50 ml @ 100 mls/hr IV Q6HR [facility] Rx#:[id number] Tube Feeding 600 600 Other 300 200 Output: Urine 0 0 Other: # Bowel Movements 0 0 Active Medications: Current Medications Acetaminophen (Tylenol) 650 mg GT DAILY [facility] Stop: 10/20/17 08:59 Last Admin: 08/21/17 09:37 Dose: 325 mg Albuterol/Ipratropium (Duoneb Neb) 3 ml HHN Q4HRT [facility] Stop: 10/19/17 10:59 Last Admin: 08/21/17 11:29 Dose: 3 ml Amiodarone HCl (Cordarone) 200 mg GT Q12H [facility] Stop: 10/20/17 10:59 Last Admin: 08/21/17 11:30 Dose: 200 mg Ascorbic Acid (Vitamin C) 500 mg PO DAILY [facility] Stop: 10/20/17 08:59 Last Admin: 08/21/17 09:37 Dose: 500 mg Aspirin (Aspirin Chewable) 81 mg PO DAILY [facility] Stop: 10/20/17 08:59 Last Admin: 08/21/17 09:37 Dose: 81 mg Atorvastatin Calcium (Lipitor) 40 mg GT DAILY [facility] PRN Reason: Protocol Stop: 10/20/17 08:59 Last Admin: 08/21/17 09:36 Dose: 40 mg Bisacodyl (Dulcolax 10 Mg Supp) 10 mg RC Q72HR PRN PRN Reason: if MOM ineffective Stop: 10/19/17 11:29 Chlorhexidine Gluconate (Peridex) 15 ml MM 0800,2000 [facility] Stop: 10/19/17 19:59 Last Admin: 08/21/17 08:40 Dose: 15 ml Cholecalciferol (Vitamin D3) 1,000 iu PO DAILY [facility] Stop: 10/20/17 08:59 Last Admin: 08/21/17 09:36 Dose: 1,000 iu Diltiazem HCl (Cardizem) 20 mg IV Q4HR PRN PRN Reason: HR ABOVE 120 Stop: 09/13/17 11:59 Docusate Sodium (Colace) 100 mg PO DAILY [facility] Stop: 10/20/17 08:59 Last Admin: 08/21/17 09:36 Dose: 100 mg Heparin Sodium (Porcine) (Heparin) 5,000 units SUBQ Q12HR [facility] Stop: 10/19/17 20:59 Last Admin: 08/21/17 09:40 Dose: 5,000 units Levofloxacin (Levaquin Pb) 250 mg in 50 mls @ 50 mls/hr IV Q48HR [facility] Stop: 10/18/17 08:59 Last Admin: 08/21/17 09:34 Dose: 50 mls/hr Dopamine HCl/Dextrose (Dopamine) 400 mg in 250 mls @ 0 mls/hr IV TITR PRN; Protocol; 0 MCG/KG/MIN PRN Reason: BP MAINTENANCE (PER PROTOCOL) Stop: 10/19/17 11:28 Piperacillin Sod/Tazobactam (Sod 2.25 gm/ Sodium Chloride) 50 mls @ 100 mls/hr IV Q6HR [facility] Stop: 10/19/17 11:59 Last Admin: 08/21/17 12:13 Dose: 100 mls/hr Norepinephrine Bitartrate 8 mg (/ Sodium Chloride) 258 mls @ 34.83 mls/hr IV TITR PRN; Protocol; 18 MCG/MIN PRN Reason: BP MAINTENANCE (PER PROTOCOL) Stop: 10/19/17 11:09 Last Admin: 08/21/17 12:08 Dose: 22 mcg/min, 42.57 mls/hr Albumin Human (Albuminar 25%) 25 gm in 100 mls @ 50 mls/hr IV X1 ONE Stop: 08/21/17 17:14 Albumin Human (Albuminar 25%) 25 gm in 100 mls @ 50 mls/hr IV X1 ONE Stop: 08/21/17 17:16 Insulin Aspart (Novolog Insulin Sliding Scale) 0 units SUBQ Q6HR [facility] PRN Reason: Protocol Stop: 10/19/17 11:59 Last Admin: 08/21/17 12:06 Dose: 8 units Insulin Detemir (Levemir Insulin) 16 units SUBQ HS [facility] PRN Reason: Protocol Stop: 10/19/17 20:59 Last Admin: 08/20/17 21:49 Dose: 16 units Lactobacillus Rhamnosus (Culturelle 15b) 1 each PO DAILY [facility] Stop: 10/20/17 08:59 Last Admin: 08/21/17 09:36 Dose: 1 each Lorazepam (Ativan) 2 mg IVP Q4HR PRN; Protocol PRN Reason: Agitation Stop: 10/15/17 11:49 Last Admin: 08/20/17 20:36 Dose: 2 mg Magnesium Hydroxide (Milk Of Magnesia) 30 ml PO Q72HR PRN PRN Reason: Constipation Stop: 10/19/17 11:44 Mirtazapine (Remeron) 15 mg GT HS [facility] PRN Reason: Protocol Stop: 10/19/17 20:59 Last Admin: 08/20/17 21:33 Dose: 15 mg Multivitamins/Vitamin C (Theragran) 1 tab PO DAILY [facility] Stop: 10/20/17 08:59 Last Admin: 08/21/17 09:38 Dose: 1 tab Ondansetron HCl (Zofran) 4 mg IV Q6H PRN PRN Reason: Nausea / Vomiting Stop: 10/19/17 11:40 Pantoprazole Sodium (Protonix) 40 mg IVP DAILY [facility] Stop: 10/20/17 08:59 Last Admin: 08/21/17 09:34 Dose: 40 mg Simethicone (Mylicon) 80 mg GT Q6HR PRN PRN Reason: Gas Stop: 10/19/17 11:59 Sodium Phosphate (Fleet Enema) 135 ml RC PRN PRN PRN Reason: If MOM/Dulcolax ineffective Stop: 10/19/17 11:29 Zinc Sulfate (Zinc Sulfate) 220 mg PO DAILY [facility] Stop: 10/20/17 08:59 Last Admin: 08/21/17 09:36 Dose: 220 mg General: weak, obtunded HEENT: NC/AT, PERRLA Neck: Supple Lungs: ronchi Abdomen: soft, non-tender, non-distended, +GT Neurological: unable to follow command - Procedures Procedures: Procedures Procedure Code Date BLOOD TRANSFUSION SERVICE 36323 08/02/17 EXCISION OF STOMACH, ENDO, DIAGN [id number] 07/10/17 INSPECTION OF LOWER INTESTINAL TRACT, ENDO [id number] 07/10/17 PERFORMANCE OF URINARY FILTRATION, <6 HRS/DAY [id number] 07/10/17 RESPIRATORY VENTILATION, GREATER THAN 96 CONSECUTIVE HOURS [id number] 08/02/17 TRANSFUSE NONAUT RED BLOOD CELLS IN PERIPH VEIN, PERC [id number] 08/02/17 Internal Medicine Assmt/Plan - Assessment Assessment: Assessment: 1. Septic shock. 2. Gram-negative negative bacteremia. 3. Pneumonia. 4. CK D stage V pneumatosis. 5. Diabetes mellitus type 2. 6. Obesity. 7. hypotension - Plan Plan: monitor glucose cbc.bmp in am continue ivabx as per ID continue current orders Nutritional Asmnt/Malnutr-PDOC - Dietary Evaluation Malnutrition Findings (Please click <Entered> for more info): Nutritional Asmnt/Malnutrition Start: 08/05/17 15: 53 Text: Status: Complete Freq: Document 08/05/17 15:53 NAVIN (Rec: 08/05/17 16:[facility] Nutritional Asmnt/Malnutrition Patient General Information Nutritional Screening High Risk Diagnosis sepsis, respiratory failure, ESRD Pertinent Medical Hx/Surgical Hx ESRD on HD, respiratory failure with tracheostomy, dysphagia, a fib, anemia, HTN, GERD Subjective Information Pt on vent, not able to interview. Pt was on TF Novosource Renal 30ml/hr continuous, NPO today for surgery. Pt has dialysis ordred per nurse note. Current Diet Order/ Nutrition Support NPO on 08/05 Pertinent Medications vit C, vit D3, colace, novolog , remeron, theragran, protonix , zinc Pertinent Labs 08/05 Na 134, K 3.6, Cl 102, BUN 77, Cr 4.2, Glucose 216, POC 224-233 08/02 A1c 7.7 Nutritional Hx/Data Height 5 ft 3 in Height (Calculated Centimeters) 160.0 Current Weight (lbs) 193 lb Weight (Calculated Kilograms) 87.5 Weight (Calculated Grams) 22047.3 Kimberly Body Weight 115 Body Mass Index (BMI) 34.2 Weight Status Obese GI Symptoms GI Symptoms None Last BM 08/04 Difficult in: None Skin Integrity/Comment: reddened to left/right inner thigh, right lateral index finger, right/left arm; skin tear to left abdominal fold; pressure area to coccy/sacral Estimated Nutritional Goals BEE in Kcals: Adj wt of IBW Calories/Kcals/Kg 30-35 adj wt 61kg Kcals Calculated 8209-4588 Protein: Adj wt of IBW Protein g/k.2-1.4 Protein Calculated 73-85 Fluid: ml 1830-2135ml (1ml/kcal) Nutritional Problem 1. Problem Problem altered nutrition related lab values Etiology hx of ESRD, endocrine dysfunction Signs/Symptoms: BUN 77, Cr 4.2, Glucose 216, POC 224-233, A1c 7.7 Malnutrition Alert Protein-Calorie Malnutrition N/A Is there a minimum of two criteria No selected? Query Text:Check all the applicable criteria. A minimum of two criteria are recommended for diagnosis of either severe or non-severe malnutrition. Intervention/Recommendation Comments 1. Resume TF Novosource Renal 30ml/hr continuous as ordered. increase to goal rate of 40ml /hr continuous as tolerated. This will provide 1920kcal, 87g protein and 688ml free water, meeting 100% of nutritional needs 2. Monitor TF rate, tolerance, wt weekly, skin integrity and labs 3. F/U as high risk in 2-3 days, 3-3/2 Expected Outcomes/Goals Expected Outcomes/Goals 1. Pt to meet at least 75% of nutritional needs via nutrition support with tolerance 2. Wt stability, skin to remain intact, labs to approach WNL.
--- NOTE | 2017-08-21 15:06 | General Progress Note ---
Subjective - Review of Systems Service Date: 08/21/17 Subjective: awake, interacting, on vent Objective - Results Result Diagrams: 08/21/17 07:30 08/21/17 07:30 Recent Labs: Laboratory Last Values WBC 17.8 Th/cmm (4.8-10.8) H 08/21/17 07:30 RBC 2.79 Mil/cmm (3.80-5.20) L 08/21/17 07:30 Hgb 8.5 gm/dL (12-16) L 08/21/17 07:30 Hct 25.5 % (41.0-60) L 08/21/17 07:30 MCV 91.6 fl (81-100) 08/21/17 07:30 MCH 30.4 pg (27.0-31.0) 08/21/17 07:30 MCHC Differential 33.2 pg (28.0-36.0) 08/21/17 07:30 RDW 16.6 % (11.5-20.0) 08/21/17 07:30 Plt Count 321 Th/cmm (150-400) 08/21/17 07:30 MPV 11.7 fl 08/21/17 07:30 Neutrophils % SPEED BELT SANDER 08/21/17 07:30 Band Neutrophils % 2 % (0-10) 08/21/17 07:30 Lymphocytes % SPEED BELT SANDER 08/21/17 07:30 Monocytes % SPEED BELT SANDER 08/21/17 07:30 Eosinophils % SPEED BELT SANDER 08/21/17 07:30 Basophils % SPEED BELT SANDER 08/21/17 07:30 Neutrophils (Manual) 74 % (40-80) 08/21/17 07:30 Lymphocytes 6 % (20-50) L 08/21/17 07:30 Monocytes 12 % (2-10) H 08/21/17 07:30 Eosinophils 4 % (0-5) 08/21/17 07:30 Basophils 2 % (0-3) 08/21/17 07:30 Hypochromia 1+ 08/02/17 15:37 Platelet Estimate ADEQUATE (NORMAL) 08/21/17 07:30 Platelet Morphology NORMAL (NORMAL) 08/20/17 04:45 Anisocytosis 1+ 08/07/17 05:45 Crenated Cell 2+ 08/02/17 15:37 RBC Morph Micro Appear ABNORMAL (NORMAL) 08/02/17 15:37 PT 12.9 SECONDS (9.5-11.5) H 08/02/17 13:58 INR 1.23 (0.5-1.4) 08/02/17 13:58 PTT (Actin FS) 33.6 SECONDS (26.0-38.0) 08/02/17 13:58 Specimen Source Arterial 08/03/17 08:58 Sample Site Right Radial 08/03/17 08:58 pH 7.42 (7.35-7.45) 08/03/17 08:58 pCO2 37.0 mmHg (35.0-45.0) 08/03/17 08:58 pO2 204.0 mmHg (80.0-100.0) H 08/03/17 08:58 HCO3 24.8 mEq/L (20.0-26.0) 08/03/17 08:58 Base Excess -0.2 mEq/L (-3.0-3.0) 08/03/17 08:58 O2 Saturation 100.0 % (92.0-100.0) 08/03/17 08:58 Rhett Test Positive 08/03/17 08:58 Vent Rate 12 08/03/17 08:58 Inspired O2 60 08/03/17 08:58 Tidal Volume 450 08/03/17 08:58 PEEP 5 08/03/17 08:58 Pressure (ins/psv/peep) NA 08/03/17 08:58 Critical Value LZHANG 08/03/17 08:58 Sodium 136 mEq/L (136-145) 08/21/17 07:30 Potassium 3.7 mEq/L (3.5-5.1) 08/21/17 07:30 Chloride 97 mEq/L (98-107) L 08/21/17 07:30 Carbon Dioxide 24.4 mEq/L (21.0-31.0) 08/21/17 07:30 Anion Gap 18.3 (7.0-16.0) H 08/21/17 07:30 BUN 58 mg/dL (7-25) H 08/21/17 07:30 Creatinine 3.2 mg/dL (0.6-1.2) H 08/21/17 07:30 Est GFR ( Amer) TNP 08/21/17 07:30 Est GFR (Non-Af Amer) TNP 08/21/17 07:30 BUN/Creatinine Ratio 18.1 08/21/17 07:30 Glucose 277 mg/dL (70-105) H 08/21/17 07:30 POC Glucose 304 MG/DL (70 - 105) H 08/21/17 11:42 Hemoglobin A1c % 7.7 % (4.0-6.0) H 08/02/17 15:37 Whole Bld Lactic Acid 1.97 mmol/L (0.60-1.99) 08/02/17 13:49 Calcium 8.9 mg/dL (8.6-10.3) 08/21/17 07:30 Magnesium 2.2 mg/dL (1.9-2.7) 08/21/17 07:30 Iron 10 ug/dL (27-139) L 08/02/17 13:56 TIBC 135 ug/dL (250-450) L 08/02/17 13:56 Iron Saturation 7 % (15-55) L 08/02/17 13:56 Unsaturated IBC 125 ug/dL (118-369) 08/02/17 13:56 Ferritin 588 ng/mL (15-150) H 08/02/17 13:56 Total Bilirubin 0.4 mg/dL (0.3-1.0) 08/19/17 04:58 Direct Bilirubin 0.09 mg/dL (0.0-0.2) 08/02/17 13:57 AST 37 U/L (13-39) 08/19/17 04:58 ALT 10 U/L (7-52) 08/19/17 04:58 Alkaline Phosphatase 72 U/L (34-104) 08/19/17 04:58 Troponin I 0.10 ng/mL (0.01-0.05) H* D 08/20/17 17:00 B-Natriuretic Peptide 839.0 pg/mL (5.0-100.0) H 08/19/17 04:58 Total Protein 7.5 gm/dL (6.0-8.3) 08/19/17 04:58 Albumin 2.8 gm/dL (3.7-5.3) L 08/19/17 04:58 Globulin 4.7 gm/dL 08/19/17 04:58 Albumin/Globulin Ratio 0.6 (1.0-1.8) L 08/19/17 04:58 Triglycerides 132 mg/dL (<150) 08/04/17 06:30 Cholesterol 55 mg/dL (<200) 08/04/17 06:30 LDL Cholesterol Direct 16 mg/dL (75-193) L 08/04/17 06:30 HDL Cholesterol 13 mg/dL (23-92) L 08/04/17 06:30 Amylase 12 U/L (29-103) L 08/02/17 13:43 Lipase 4 U/L (11-82) L 08/02/17 13:43 TSH 3.74 uIU/ml (0.34-5.60) 08/04/17 06:30 Stool Occult Blood POSITIVE (NEGATIVE) H 08/03/17 17:50 Random Vancomycin 14.8 ug/mL (5.0-40.0) 08/09/17 06:34 Hepatitis A IgM Ab Negative (Negative) 08/08/17 08:15 Hep Bs Antigen Negative (Negative) 08/08/17 08:15 Hep B Core IgM Ab Negative (Negative) 08/08/17 08:15 Hepatitis C Antibody <0.1 s/co ratio (0.0-0.9) 08/08/17 08:15 Blood Type A POSITIVE 08/15/17 07:50 Antibody Screen POSITIVE 08/15/17 07:50 Antibody Identification Anti-K 08/15/17 07:50 NEVILLE, IgG Interpret NEGATIVE 08/15/17 07:50 Crossmatch See Detail 08/15/17 07:50 - Physical Exam Vitals and I&O: Vital Signs Temp 97.6 F 08/21/17 13:00 Pulse 85 08/21/17 14:01 Resp 24 08/21/17 13:00 BP 113/64 08/21/17 14:01 Pulse Ox 100 08/21/17 13:41 Intake & Output 08/20/17 08/21/17 08/21/17 18:59 06:59 18:59 Intake Total 0599.565 1399.113 118.68 Output Total 0 0 Balance 2474.846 5077.113 118.68 Weight (lbs) 93.638 kg 93.61 kg Intake: Intake, IV Amount 707.402 309.113 118.68 Amiodarone 450 mg In 10.26 Dextrose 5% 250 ml @ Titrate IV TITR [facility] Rx#: [id number] Norepinephrine 8 mg In 347.01 Sodium Chloride 0.9% 250 ml @ 0 MCG/MIN IV TITR PRN Rx#:[id number] Norepinephrine 8 mg In 198.853 118.68 Sodium Chloride 0.9% 250 ml @ 18 MCG/MIN 34.83 mls /hr IV TITR PRN Rx#: [id number] Piperacillin Sodium/ 100 100 Tazobact 2.25 gm In Sodium Chloride 0.9% 50 ml @ 100 mls/hr IV Q6HR [facility] Rx#:[id number] Tube Feeding 600 600 Other 300 200 Output: Urine 0 0 Other: # Bowel Movements 0 0 Active Medications: Current Medications Acetaminophen (Tylenol) 650 mg GT DAILY [facility] Stop: 10/20/17 08:59 Last Admin: 08/21/17 09:37 Dose: 325 mg Albuterol/Ipratropium (Duoneb Neb) 3 ml HHN Q4HRT [facility] Stop: 10/19/17 10:59 Last Admin: 08/21/17 11:29 Dose: 3 ml Amiodarone HCl (Cordarone) 200 mg GT Q12H [facility] Stop: 10/20/17 10:59 Last Admin: 08/21/17 11:30 Dose: 200 mg Ascorbic Acid (Vitamin C) 500 mg PO DAILY [facility] Stop: 10/20/17 08:59 Last Admin: 08/21/17 09:37 Dose: 500 mg Aspirin (Aspirin Chewable) 81 mg PO DAILY [facility] Stop: 10/20/17 08:59 Last Admin: 08/21/17 09:37 Dose: 81 mg Atorvastatin Calcium (Lipitor) 40 mg GT DAILY [facility] PRN Reason: Protocol Stop: 10/20/17 08:59 Last Admin: 08/21/17 09:36 Dose: 40 mg Bisacodyl (Dulcolax 10 Mg Supp) 10 mg RC Q72HR PRN PRN Reason: if MOM ineffective Stop: 10/19/17 11:29 Chlorhexidine Gluconate (Peridex) 15 ml MM 0800,2000 [facility] Stop: 10/19/17 19:59 Last Admin: 08/21/17 08:40 Dose: 15 ml Cholecalciferol (Vitamin D3) 1,000 iu PO DAILY [facility] Stop: 10/20/17 08:59 Last Admin: 08/21/17 09:36 Dose: 1,000 iu Diltiazem HCl (Cardizem) 20 mg IV Q4HR PRN PRN Reason: HR ABOVE 120 Stop: 09/13/17 11:59 Docusate Sodium (Colace) 100 mg PO DAILY [facility] Stop: 10/20/17 08:59 Last Admin: 08/21/17 09:36 Dose: 100 mg Heparin Sodium (Porcine) (Heparin) 5,000 units SUBQ Q12HR [facility] Stop: 10/19/17 20:59 Last Admin: 08/21/17 09:40 Dose: 5,000 units Levofloxacin (Levaquin Pb) 250 mg in 50 mls @ 50 mls/hr IV Q48HR [facility] Stop: 10/18/17 08:59 Last Admin: 08/21/17 09:34 Dose: 50 mls/hr Dopamine HCl/Dextrose (Dopamine) 400 mg in 250 mls @ 0 mls/hr IV TITR PRN; Protocol; 0 MCG/KG/MIN PRN Reason: BP MAINTENANCE (PER PROTOCOL) Stop: 10/19/17 11:28 Piperacillin Sod/Tazobactam (Sod 2.25 gm/ Sodium Chloride) 50 mls @ 100 mls/hr IV Q6HR [facility] Stop: 10/19/17 11:59 Last Admin: 08/21/17 12:13 Dose: 100 mls/hr Norepinephrine Bitartrate 8 mg (/ Sodium Chloride) 258 mls @ 34.83 mls/hr IV TITR PRN; Protocol; 18 MCG/MIN PRN Reason: BP MAINTENANCE (PER PROTOCOL) Stop: 10/19/17 11:09 Last Admin: 08/21/17 12:08 Dose: 22 mcg/min, 42.57 mls/hr Albumin Human (Albuminar 25%) 25 gm in 100 mls @ 50 mls/hr IV X1 ONE Stop: 08/21/17 17:14 Albumin Human (Albuminar 25%) 25 gm in 100 mls @ 50 mls/hr IV X1 ONE Stop: 08/21/17 17:16 Insulin Aspart (Novolog Insulin Sliding Scale) 0 units SUBQ Q6HR [facility] PRN Reason: Protocol Stop: 10/19/17 11:59 Last Admin: 08/21/17 12:06 Dose: 8 units Insulin Detemir (Levemir Insulin) 16 units SUBQ HS [facility] PRN Reason: Protocol Stop: 10/19/17 20:59 Last Admin: 08/20/17 21:49 Dose: 16 units Lactobacillus Rhamnosus (Culturelle 15b) 1 each PO DAILY [facility] Stop: 10/20/17 08:59 Last Admin: 08/21/17 09:36 Dose: 1 each Lorazepam (Ativan) 2 mg IVP Q4HR PRN; Protocol PRN Reason: Agitation Stop: 10/15/17 11:49 Last Admin: 08/20/17 20:36 Dose: 2 mg Magnesium Hydroxide (Milk Of Magnesia) 30 ml PO Q72HR PRN PRN Reason: Constipation Stop: 10/19/17 11:44 Mirtazapine (Remeron) 15 mg GT [facility] PRN Reason: Protocol Stop: 10/19/17 20:59 Last Admin: 08/20/17 21:33 Dose: 15 mg Multivitamins/Vitamin C (Theragran) 1 tab PO DAILY [facility] Stop: 10/20/17 08:59 Last Admin: 08/21/17 09:38 Dose: 1 tab Ondansetron HCl (Zofran) 4 mg IV Q6H PRN PRN Reason: Nausea / Vomiting Stop: 10/19/17 11:40 Pantoprazole Sodium (Protonix) 40 mg IVP DAILY [facility] Stop: 10/20/17 08:59 Last Admin: 08/21/17 09:34 Dose: 40 mg Simethicone (Mylicon) 80 mg GT Q6HR PRN PRN Reason: Gas Stop: 10/19/17 11:59 Sodium Phosphate (Fleet Enema) 135 ml RC PRN PRN PRN Reason: If MOM/Dulcolax ineffective Stop: 10/19/17 11:29 Zinc Sulfate (Zinc Sulfate) 220 mg PO DAILY [facility] Stop: 10/20/17 08:59 Last Admin: 08/21/17 09:36 Dose: 220 mg General: Alert, No acute distress (scattered rhonchi) HEENT: Atraumatic, PERRLA, EOMI, Mucous membr. moist/pink Neck: Supple, Other (TRACH) Cardiovascular: Regular rate Lungs: Other (coarse rhonchi) Abdomen: Bowel sounds, Soft, Other (INTACT GT) Extremities: Edema (upper wxtrmities), Other (upper ext) Neurological: Sensation intact Skin: no Rash Psych/Mental Status: Mood NL - Procedures Procedures: Procedures Procedure Code Date BLOOD TRANSFUSION SERVICE 88575 08/02/17 EXCISION OF STOMACH, ENDO, DIAGN [id number] 07/10/17 INSPECTION OF LOWER INTESTINAL TRACT, ENDO [id number] 07/10/17 PERFORMANCE OF URINARY FILTRATION, <6 HRS/DAY [id number] 07/10/17 RESPIRATORY VENTILATION, GREATER THAN 96 CONSECUTIVE HOURS [id number] 08/02/17 TRANSFUSE NONAUT RED BLOOD CELLS IN PERIPH VEIN, PERC 48956D8 08/02/17 Assessment/Plan - Assessment Assessment: 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/L UE Edema, Cellulitis Shock Sepsis RF on Vent Acute on Chronic Decomp CHF G (-) Septicemia A. fib to V. tach - Plan Plan: Lab - Result Diagrams 08/04/17 06:30 08/04/17 06:30 Current Medications Acetaminophen (Tylenol 650mg/20.3ml Suspension) 650 mg GT DAILY [facility] Stop: 10/03/17 08:59 Last Admin: 08/04/17 09:18 Dose: 650 mg Albuterol/Ipratropium (Duoneb Neb) 3 ml HHN Q4HRT [facility] Stop: 10/02/17 10:59 Last Admin: 08/04/17 11:25 Dose: 3 ml Ascorbic Acid (Vitamin C) 500 mg PO DAILY [facility] Stop: 10/03/17 08:59 Last Admin: 08/04/17 09:18 Dose: 500 mg Aspirin (Aspirin Chewable) 81 mg GT DAILY [facility] Stop: 10/03/17 08:59 Last Admin: 08/04/17 09:18 Dose: 81 mg Atorvastatin Calcium (Lipitor) 40 mg GT HS [facility] PRN Reason: Protocol Stop: 10/02/17 20:59 Last Admin: 08/03/17 20:19 Dose: 40 mg Bisacodyl (Dulcolax 10 Mg Supp) 10 mg RC Q72HR PRN PRN Reason: IF MOM INEFFECTIVE Stop: 10/02/17 14:13 Bisacodyl (Dulcolax 10 Mg Supp) 10 mg RC PRN PRN PRN Reason: IF MOM INEFFECTIVE Stop: 10/02/17 14:13 Chlorhexidine Gluconate (Peridex) 15 ml MM 0800,2000 [facility] Stop: 10/02/17 07:59 Last Admin: 08/04/17 08:00 Dose: 15 ml Cholecalciferol (Vitamin D3) 1,000 iu GT DAILY [facility] Stop: 10/03/17 08:59 Last Admin: 08/04/17 09:18 Dose: 1,000 iu Diltiazem HCl (Cardizem) 5 mg IVP Q4H PRN PRN Reason: INCREASE HEART RATE Stop: 10/01/17 21:59 Last Admin: 08/03/17 01:38 Dose: 5 mg Docusate Sodium (Colace) 100 mg PO DAILY [facility] Stop: 10/03/17 08:59 Last Admin: 08/04/17 09:18 Dose: 100 mg Heparin Sodium (Porcine) (Heparin) 5,000 units HD UD [facility] Stop: 08/05/17 08:59 Last Admin: 08/04/17 09:19 Dose: Not Given Fluconazole (Diflucan) 200 mg in 100 mls @ 100 mls/hr IV Q24HR [facility] Stop: 10/02/17 14:59 Last Infusion: 08/03/17 15:40 Dose: Infused Meropenem 500 mg/ Sodium (Chloride) 100 mls @ 100 mls/hr IV Q24H [facility] Stop: 10/02/17 12:59 Last Admin: 08/04/17 13:17 Dose: 100 mls/hr Dopamine HCl/Dextrose (Dopamine) 400 mg in 250 mls @ 0 mls/hr IV TITR PRN; Protocol; Per Protocol PRN Reason: BP MAINTENANCE (PER PROTOCOL) Stop: 10/02/17 07:47 Norepinephrine Bitartrate 4 mg (/ Dextrose) 254 mls @ 0 mls/hr IV TITR PRN; Protocol; Per Protocol PRN Reason: BP MAINTENANCE (PER PROTOCOL) Stop: 10/02/17 08:31 Last Admin: 08/03/17 23:47 Dose: 4 mcg/min, 15.24 mls/hr Colistimethate Sodium 80 mg/ (Sodium Chloride) 100 mls @ 100 mls/hr IV Q36H [facility] Stop: 10/02/17 20:59 Last Infusion: 08/03/17 21:20 Dose: Infused Insulin Aspart (Novolog Insulin Sliding Scale) 0 units SUBQ Q6HR [facility] PRN Reason: Protocol Stop: 10/02/17 00:00 Last Admin: 08/04/17 11:30 Dose: 6 units Lorazepam (Ativan) 1 mg IVP Q2HR PRN; Protocol PRN Reason: Restlessness Stop: 10/01/17 21:18 Last Admin: 08/04/17 01:05 Dose: 1 mg Magnesium Hydroxide (Milk Of Magnesia) 30 ml GT Q72H PRN PRN Reason: NO BM FOR THREE DAYS Stop: 10/02/17 14:13 Mirtazapine (Remeron) 15 mg GT HS [facility] PRN Reason: Protocol Stop: 10/02/17 20:59 Last Admin: 08/03/17 20:19 Dose: 15 mg Miscellaneous (Vancomycin Iv Per Pharmacy) 1 ea PRN PRN PRN Reason: PROTOCOL Stop: 10/01/17 20:42 Miscellaneous (Zosyn Iv Per Pharmacy) 1 [facility] PRN PRN PRN Reason: PROTOCOL Stop: 10/01/17 20:42 Multivitamins/Vitamin C (Theragran) 1 tab PO DAILY [facility] Stop: 10/03/17 08:59 Last Admin: 08/04/17 09:18 Dose: 1 tab Ondansetron HCl (Zofran Odt) 4 mg PO Q6HR PRN PRN Reason: Nausea / Vomiting Stop: 10/02/17 14:13 Pantoprazole Sodium (Protonix) 40 mg IVP DAILY [facility] Stop: 10/02/17 08:59 Last Admin: 08/04/17 09:18 Dose: 40 mg Simethicone (Mylicon) 80 mg GT Q6H PRN PRN Reason: GAS PAIN Stop: 10/02/17 14:13 Sodium Phosphate (Fleet Enema) 118 ml RC PRN PRN PRN Reason: IF MOM/DULCOLAX INEFFECTIVE Stop: 10/02/17 14:13 Temazepam (Restoril) 15 mg GT HS PRN; Protocol PRN Reason: Insomnia Stop: 10/02/17 14:13 Last Admin: 08/03/17 20:19 Dose: 15 mg Zinc Sulfate (Zinc Sulfate) 220 mg GT DAILY [facility] Stop: 10/03/17 08:59 Last Admin: 08/04/17 09:18 Dose: 220 Lab - Result Diagrams 08/21/17 07:30 08/21/17 07:30 schedule for HD today Venous & Arterial duplex scans were negative for DVT or clots CXR still showed persistent b/l effusions, CHF, left > right replace K f/u electrolytes. cbc Reccurence of shock, on levo 10 mcg, Amiodarone BS low, monitor closely, hold Levemir, continue S/S wbc up to 17 Nutritional Asmnt/Malnutr-PDOC - Dietary Evaluation Malnutrition Findings (Please click <Entered> for more info): Nutritional Asmnt/Malnutrition Start: 08/05/17 15: 53 Text: Status: Complete Freq: Document 08/05/17 15:53 HEN (Rec: 08/05/17 16:19 LCHENG [id number]) Nutritional Asmnt/Malnutrition Patient General Information Nutritional Screening High Risk Diagnosis sepsis, respiratory failure, ESRD Pertinent Medical Hx/Surgical Hx ESRD on HD, respiratory failure with tracheostomy, dysphagia, a fib, anemia, HTN, GERD Subjective Information Pt on vent, not able to interview. Pt was on TF Novosource Renal 30ml/hr continuous, NPO today for surgery. Pt has dialysis ordred per nurse note. Current Diet Order/ Nutrition Support NPO on 08/05 Pertinent Medications vit C, vit D3, colace, novolog , remeron, theragran, protonix , zinc Pertinent Labs 08/05 Na 134, K 3.6, Cl 102, BUN 77, Cr 4.2, Glucose 216, POC 224-233 08/02 A1c 7.7 Nutritional Hx/Data Height 1.6 m Height (Calculated Centimeters) 160.0 Current Weight (lbs) 87.543 kg Weight (Calculated Kilograms) 87.5 Weight (Calculated Grams) 65615.3 [place] Body Weight 115 Body Mass Index (BMI) 34.2 Weight Status Obese GI Symptoms GI Symptoms None Last BM 08/04 Difficult in: None Skin Integrity/Comment: reddened to left/right inner thigh, right lateral index finger, right/left arm; skin tear to left abdominal fold; pressure area to coccy/sacral Estimated Nutritional Goals BEE in Kcals: Adj wt of IBW Calories/Kcals/Kg 30-35 adj wt 61kg Kcals Calculated 3013-4801 Protein: Adj wt of IBW Protein g/k.2-1.4 Protein Calculated 73-85 Fluid: ml 1830-2135ml (1ml/kcal) Nutritional Problem 1. Problem Problem altered nutrition related lab values Etiology hx of ESRD, endocrine dysfunction Signs/Symptoms: BUN 77, Cr 4.2, Glucose 216, POC 224-233, A1c 7.7 Malnutrition Alert Protein-Calorie Malnutrition N/A Is there a minimum of two criteria No selected? Query Text:Check all the applicable criteria. A minimum of two criteria are recommended for diagnosis of either severe or non-severe malnutrition. Intervention/Recommendation Comments 1. Resume TF Novosource Renal 30ml/hr continuous as ordered. increase to goal rate of 40ml /hr continuous as tolerated. This will provide 1920kcal, 87g protein and 688ml free water, meeting 100% of nutritional needs 2. Monitor TF rate, tolerance, wt weekly, skin integrity and labs 3. F/U as high risk in 2-3 days, 08/07-08/08 Expected Outcomes/Goals Expected Outcomes/Goals 1. Pt to meet at least 75% of nutritional needs via nutrition support with tolerance 2. Wt stability, skin to remain intact, labs to approach WNL.
[2017-08-21] MEDS ORDERED: Albumin 25% 25gm/100mL 25 GM/100 ML BTL IV ONE ×2 (15:15→15:17)
--- NOTE | 2017-08-21 15:56 | Infectious Disease Prog Note ---
Infectious Disease Subjective - Review of Systems Service Date: 08/21/17 Subjective: no fever. on levophed. Infectious Disease Objective - Results Result Diagrams: 08/21/17 07:30 08/21/17 07:30 Recent Labs: Laboratory Last Values WBC 17.8 Th/cmm (4.8-10.8) H 08/21/17 07:30 RBC 2.79 Mil/cmm (3.80-5.20) L 08/21/17 07:30 Hgb 8.5 gm/dL (12-16) L 08/21/17 07:30 Hct 25.5 % (41.0-60) L 08/21/17 07:30 MCV 91.6 fl (81-100) 08/21/17 07:30 MCH 30.4 pg (27.0-31.0) 08/21/17 07:30 MCHC Differential 33.2 pg (28.0-36.0) 08/21/17 07:30 RDW 16.6 % (11.5-20.0) 08/21/17 07:30 Plt Count 321 Th/cmm (150-400) 08/21/17 07:30 MPV 11.7 fl 08/21/17 07:30 Neutrophils % [employer] GR[employer]ER 08/21/17 07:30 Band Neutrophils % 2 % (0-10) 08/21/17 07:30 Lymphocytes % [employer] GR[employer]ER 08/21/17 07:30 Monocytes % MEAT GRINDER 08/21/17 07:30 Eosinophils % ME[employer] GRINDER 08/21/17 07:30 Basophils % MEAT GRINDER 08/21/17 07:30 Neutrophils (Manual) 74 % (40-80) 08/21/17 07:30 Lymphocytes 6 % (20-50) L 08/21/17 07:30 Monocytes 12 % (2-10) H 08/21/17 07:30 Eosinophils 4 % (0-5) 08/21/17 07:30 Basophils 2 % (0-3) 08/21/17 07:30 Hypochromia 1+ 08/02/17 15:37 Platelet Estimate ADEQUATE (NORMAL) 08/21/17 07:30 Platelet Morphology NORMAL (NORMAL) 08/20/17 04:45 Anisocytosis 1+ 08/07/17 05:45 Crenated Cell 2+ 08/02/17 15:37 RBC Morph Micro Appear ABNORMAL (NORMAL) 08/02/17 15:37 PT 12.9 SECONDS (9.5-11.5) H 08/02/17 13:58 INR 1.23 (0.5-1.4) 08/02/17 13:58 PTT (Actin FS) 33.6 SECONDS (26.0-38.0) 08/02/17 13:58 Specimen Source Arterial 08/03/17 08:58 Sample Site Right Radial 08/03/17 08:58 pH 7.42 (7.35-7.45) 08/03/17 08:58 pCO2 37.0 mmHg (35.0-45.0) 08/03/17 08:58 pO2 204.0 mmHg (80.0-100.0) H 08/03/17 08:58 HCO3 24.8 mEq/L (20.0-26.0) 08/03/17 08:58 Base Excess -0.2 mEq/L (-3.0-3.0) 08/03/17 08:58 O2 Saturation 100.0 % (92.0-100.0) 08/03/17 08:58 Rhett Test Positive 08/03/17 08:58 Vent Rate 12 08/03/17 08:58 Inspired O2 60 08/03/17 08:58 Tidal Volume 450 08/03/17 08:58 PEEP 5 08/03/17 08:58 Pressure (ins/psv/peep) NA 08/03/17 08:58 Critical Value LZHANG 08/03/17 08:58 Sodium 136 mEq/L (136-145) 08/21/17 07:30 Potassium 3.7 mEq/L (3.5-5.1) 08/21/17 07:30 Chloride 97 mEq/L (98-107) L 08/21/17 07:30 Carbon Dioxide 24.4 mEq/L (21.0-31.0) 08/21/17 07:30 Anion Gap 18.3 (7.0-16.0) H 08/21/17 07:30 BUN 58 mg/dL (7-25) H 08/21/17 07:30 Creatinine 3.2 mg/dL (0.6-1.2) H 08/21/17 07:30 Est GFR ( Amer) TNP 08/21/17 07:30 Est GFR (Non-Af Amer) TNP 08/21/17 07:30 BUN/Creatinine Ratio 18.1 08/21/17 07:30 Glucose 277 mg/dL (70-105) H 08/21/17 07:30 POC Glucose 304 MG/DL (70 - 105) H 08/21/17 11:42 Hemoglobin A1c % 7.7 % (4.0-6.0) H 08/02/17 15:37 Whole Bld Lactic Acid 1.97 mmol/L (0.60-1.99) 08/02/17 13:49 Calcium 8.9 mg/dL (8.6-10.3) 08/21/17 07:30 Magnesium 2.2 mg/dL (1.9-2.7) 08/21/17 07:30 Iron 10 ug/dL (27-139) L 08/02/17 13:56 TIBC 135 ug/dL (250-450) L 08/02/17 13:56 Iron Saturation 7 % (15-55) L 08/02/17 13:56 Unsaturated IBC 125 ug/dL (118-369) 08/02/17 13:56 Ferritin 588 ng/mL (15-150) H 08/02/17 13:56 Total Bilirubin 0.4 mg/dL (0.3-1.0) 08/19/17 04:58 Direct Bilirubin 0.09 mg/dL (0.0-0.2) 08/02/17 13:57 AST 37 U/L (13-39) 08/19/17 04:58 ALT 10 U/L (7-52) 08/19/17 04:58 Alkaline Phosphatase 72 U/L (34-104) 08/19/17 04:58 Troponin I 0.10 ng/mL (0.01-0.05) H* D 08/20/17 17:00 B-Natriuretic Peptide 839.0 pg/mL (5.0-100.0) H 08/19/17 04:58 Total Protein 7.5 gm/dL (6.0-8.3) 08/19/17 04:58 Albumin 2.8 gm/dL (3.7-5.3) L 08/19/17 04:58 Globulin 4.7 gm/dL 08/19/17 04:58 Albumin/Globulin Ratio 0.6 (1.0-1.8) L 08/19/17 04:58 Triglycerides 132 mg/dL (<150) 08/04/17 06:30 Cholesterol 55 mg/dL (<200) 08/04/17 06:30 LDL Cholesterol Direct 16 mg/dL (75-193) L 08/04/17 06:30 HDL Cholesterol 13 mg/dL (23-92) L 08/04/17 06:30 Amylase 12 U/L (29-103) L 08/02/17 13:43 Lipase 4 U/L (11-82) L 08/02/17 13:43 TSH 3.74 uIU/ml (0.34-5.60) 08/04/17 06:30 Stool Occult Blood POSITIVE (NEGATIVE) H 08/03/17 17:50 Random Vancomycin 14.8 ug/mL (5.0-40.0) 08/09/17 06:34 Hepatitis A IgM Ab Negative (Negative) 08/08/17 08:15 Hep Bs Antigen Negative (Negative) 08/08/17 08:15 Hep B Core IgM Ab Negative (Negative) 08/08/17 08:15 Hepatitis C Antibody <0.1 s/co ratio (0.0-0.9) 08/08/17 08:15 Blood Type A POSITIVE 08/15/17 07:50 Antibody Screen POSITIVE 08/15/17 07:50 Antibody Identification Anti-K 08/15/17 07:50 [place], IgG Interpret NEGATIVE 08/15/17 07:50 Crossmatch See Detail 08/15/17 07:50 - Physical Exam Vitals and I&O: Vital Signs Temp 97.6 F 08/21/17 15:00 Pulse 82 08/21/17 15:00 Resp 24 08/21/17 15:00 BP 79/44 08/21/17 15:00 Pulse Ox 100 08/21/17 14:30 Intake & Output 08/20/17 08/21/17 08/21/17 18:59 06:59 18:59 Intake Total 1045.562 8756.113 118.68 Output Total 0 0 Balance 2762.413 1098.113 118.68 Weight (lbs) 93.638 kg 93.61 kg Intake: Intake, IV Amount 707.402 309.113 118.68 Amiodarone 450 mg In 10.26 Dextrose 5% 250 ml @ Titrate IV TITR [facility] Rx#: [id number] Norepinephrine 8 mg In 347.01 Sodium Chloride 0.9% 250 ml @ 0 MCG/MIN IV TITR PRN Rx#:[id number] Norepinephrine 8 mg In 198.853 118.68 Sodium Chloride 0.9% 250 ml @ 18 MCG/MIN 34.83 mls /hr IV TITR PRN Rx#: [id number] Piperacillin Sodium/ 100 100 Tazobact 2.25 gm In Sodium Chloride 0.9% 50 ml @ 100 mls/hr IV Q6HR [facility] Rx#:[id number] Tube Feeding 600 600 Other 300 200 Output: Urine 0 0 Other: # Bowel Movements 0 0 Active Medications: Current Medications Acetaminophen (Tylenol) 650 mg GT DAILY [facility] Stop: 10/20/17 08:59 Last Admin: 08/21/17 09:37 Dose: 325 mg Albuterol/Ipratropium (Duoneb Neb) 3 ml HHN Q4HRT [facility] Stop: 10/19/17 10:59 Last Admin: 08/21/17 11:29 Dose: 3 ml Amiodarone HCl (Cordarone) 200 mg GT Q12H [facility] Stop: 10/20/17 10:59 Last Admin: 08/21/17 11:30 Dose: 200 mg Ascorbic Acid (Vitamin C) 500 mg PO DAILY [facility] Stop: 10/20/17 08:59 Last Admin: 08/21/17 09:37 Dose: 500 mg Aspirin (Aspirin Chewable) 81 mg PO DAILY [facility] Stop: 10/20/17 08:59 Last Admin: 08/21/17 09:37 Dose: 81 mg Atorvastatin Calcium (Lipitor) 40 mg GT DAILY [facility] PRN Reason: Protocol Stop: 10/20/17 08:59 Last Admin: 08/21/17 09:36 Dose: 40 mg Bisacodyl (Dulcolax 10 Mg Supp) 10 mg RC Q72HR PRN PRN Reason: if MOM ineffective Stop: 10/19/17 11:29 Chlorhexidine Gluconate (Peridex) 15 ml MM 0800,2000 [facility] Stop: 10/19/17 19:59 Last Admin: 08/21/17 08:40 Dose: 15 ml Cholecalciferol (Vitamin D3) 1,000 iu PO DAILY [facility] Stop: 10/20/17 08:59 Last Admin: 08/21/17 09:36 Dose: 1,000 iu Diltiazem HCl (Cardizem) 20 mg IV Q4HR PRN PRN Reason: HR ABOVE 120 Stop: 09/13/17 11:59 Docusate Sodium (Colace) 100 mg PO DAILY [facility] Stop: 10/20/17 08:59 Last Admin: 08/21/17 09:36 Dose: 100 mg Heparin Sodium (Porcine) (Heparin) 5,000 units SUBQ Q12HR [facility] Stop: 10/19/17 20:59 Last Admin: 08/21/17 09:40 Dose: 5,000 units Levofloxacin (Levaquin Pb) 250 mg in 50 mls @ 50 mls/hr IV Q48HR [facility] Stop: 10/18/17 08:59 Last Admin: 08/21/17 09:34 Dose: 50 mls/hr Dopamine HCl/Dextrose (Dopamine) 400 mg in 250 mls @ 0 mls/hr IV TITR PRN; Protocol; 0 MCG/KG/MIN PRN Reason: BP MAINTENANCE (PER PROTOCOL) Stop: 10/19/17 11:28 Piperacillin Sod/Tazobactam (Sod 2.25 gm/ Sodium Chloride) 50 mls @ 100 mls/hr IV Q6HR [facility] Stop: 10/19/17 11:59 Last Admin: 08/21/17 12:13 Dose: 100 mls/hr Norepinephrine Bitartrate 8 mg (/ Sodium Chloride) 258 mls @ 34.83 mls/hr IV TITR PRN; Protocol; 18 MCG/MIN PRN Reason: BP MAINTENANCE (PER PROTOCOL) Stop: 10/19/17 11:09 Last Admin: 08/21/17 12:08 Dose: 22 mcg/min, 42.57 mls/hr Albumin Human (Albuminar 25%) 25 gm in 100 mls @ 50 mls/hr IV X1 ONE Stop: 08/21/17 17:14 Albumin Human (Albuminar 25%) 25 gm in 100 mls @ 50 mls/hr IV X1 ONE Stop: 08/21/17 17:16 Insulin Aspart (Novolog Insulin Sliding Scale) 0 units SUBQ Q6HR [facility] PRN Reason: Protocol Stop: 10/19/17 11:59 Last Admin: 08/21/17 12:06 Dose: 8 units Insulin Detemir (Levemir Insulin) 16 units SUBQ HS [facility] PRN Reason: Protocol Stop: 10/19/17 20:59 Last Admin: 08/20/17 21:49 Dose: 16 units Lactobacillus Rhamnosus (Culturelle 15b) 1 each PO DAILY [facility] Stop: 10/20/17 08:59 Last Admin: 08/21/17 09:36 Dose: 1 each Lorazepam (Ativan) 2 mg IVP Q4HR PRN; Protocol PRN Reason: Agitation Stop: 10/15/17 11:49 Last Admin: 08/20/17 20:36 Dose: 2 mg Magnesium Hydroxide (Milk Of Magnesia) 30 ml PO Q72HR PRN PRN Reason: Constipation Stop: 10/19/17 11:44 Mirtazapine (Remeron) 15 mg GT HS [facility] PRN Reason: Protocol Stop: 10/19/17 20:59 Last Admin: 08/20/17 21:33 Dose: 15 mg Multivitamins/Vitamin C (Theragran) 1 tab PO DAILY [facility] Stop: 10/20/17 08:59 Last Admin: 08/21/17 09:38 Dose: 1 tab Ondansetron HCl (Zofran) 4 mg IV Q6H PRN PRN Reason: Nausea / Vomiting Stop: 10/19/17 11:40 Pantoprazole Sodium (Protonix) 40 mg IVP DAILY [facility] Stop: 10/20/17 08:59 Last Admin: 08/21/17 09:34 Dose: 40 mg Simethicone (Mylicon) 80 mg GT Q6HR PRN PRN Reason: Gas Stop: 10/19/17 11:59 Sodium Phosphate (Fleet Enema) 135 ml RC PRN PRN PRN Reason: If MOM/Dulcolax ineffective Stop: 10/19/17 11:29 Zinc Sulfate (Zinc Sulfate) 220 mg PO DAILY [facility] Stop: 10/20/17 08:59 Last Admin: 08/21/17 09:36 Dose: 220 mg General: no acute distress, well developed, well nourished HEENT: atraumatic, normocephalic, PERRLA, EOMI Neck: supple, tracheostomy, no thyromegaly Cardiovascular: S1S2, regular Lungs: clear to auscultation bilaterally, clear to percussion Abdomen: soft, no tender, no distended, no rebound Extremities: no cyanosis, no clubbing, no edema Neurological: awake, alert, oriented Skin: intact - Procedures Procedures: Procedures Procedure Code Date BLOOD TRANSFUSION SERVICE 58741 08/02/17 EXCISION OF STOMACH, ENDO, DIAGN [id number] 07/10/17 INSPECTION OF LOWER INTESTINAL TRACT, ENDO [id number] 07/10/17 PERFORMANCE OF URINARY FILTRATION, <6 HRS/DAY [id number] 07/10/17 RESPIRATORY VENTILATION, GREATER THAN 96 CONSECUTIVE HOURS [id number] 08/02/17 TRANSFUSE NONAUT RED BLOOD CELLS IN PERIPH VEIN, PERC [id number] 08/02/17 Infectious Disease Assmt/Plan - Assessment Assessment: 1. Septic shock. versus cardiogenic shock. 2. Gram-negative negative bacteremia treated 3. Pneumonia. 4. 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 5. Diabetes mellitus type 2. 6. Obesity. 7. Hypotension on levophed. - Plan Plan: Continue levaquin. Nutritional Asmnt/Malnutr-PDOC - Dietary Evaluation Malnutrition Findings (Please click <Entered> for more info): Nutritional Asmnt/Malnutrition Start: 08/05/17 15: 53 Text: Status: Complete Freq: Document 08/05/17 15:53 [facility] (Rec: 08/05/17 16:19 [id number]) Nutritional Asmnt/Malnutrition Patient General Information Nutritional Screening High Risk Diagnosis sepsis, respiratory failure, ESRD Pertinent Medical Hx/Surgical Hx ESRD on HD, respiratory failure with tracheostomy, dysphagia, a fib, anemia, HTN, GERD Subjective Information Pt on vent, not able to interview. Pt was on TF Novosource Renal 30ml/hr continuous, NPO today for surgery. Pt has dialysis ordred per nurse note. Current Diet Order/ Nutrition Support NPO on 08/05 Pertinent Medications vit C, vit D3, colace, novolog , remeron, theragran, protonix , zinc Pertinent Labs 08/05 Na 134, K 3.6, Cl 102, BUN 77, Cr 4.2, Glucose 216, POC 224-233 08/02 A1c 7.7 Nutritional Hx/Data Height 1.6 m Height (Calculated Centimeters) 160.0 Current Weight (lbs) 87.543 kg Weight (Calculated Kilograms) 87.5 Weight (Calculated Grams) 72516.3 [place] Body Weight 115 Body Mass Index (BMI) 34.2 Weight Status Obese GI Symptoms GI Symptoms None Last BM 08/04 Difficult in: None Skin Integrity/Comment: reddened to left/right inner thigh, right lateral index finger, right/left arm; skin tear to left abdominal fold; pressure area to coccy/sacral Estimated Nutritional Goals BEE in Kcals: Adj wt of IBW Calories/Kcals/Kg 30-35 adj wt 61kg Kcals Calculated 1403-5111 Protein: Adj wt of IBW Protein g/k.2-1.4 Protein Calculated 73-85 Fluid: ml 1830-2135ml (1ml/kcal) Nutritional Problem 1. Problem Problem altered nutrition related lab values Etiology hx of ESRD, endocrine dysfunction Signs/Symptoms: BUN 77, Cr 4.2, Glucose 216, POC 224-233, A1c 7.7 Malnutrition Alert Protein-Calorie Malnutrition N/A Is there a minimum of two criteria No selected? Query Text:Check all the applicable criteria. A minimum of two criteria are recommended for diagnosis of either severe or non-severe malnutrition. Intervention/Recommendation Comments 1. Resume TF Novosource Renal 30ml/hr continuous as ordered. increase to goal rate of 40ml /hr continuous as tolerated. This will provide 1920kcal, 87g protein and 688ml free water, meeting 100% of nutritional needs 2. Monitor TF rate, tolerance, wt weekly, skin integrity and labs 3. F/U as high risk in 2-3 days, 08/07-3/ Expected Outcomes/Goals Expected Outcomes/Goals 1. Pt to meet at least 75% of nutritional needs via nutrition support with tolerance 2. Wt stability, skin to remain intact, labs to approach WNL.
[2017-08-21] MEDS ORDERED: Midazolam 1mg/ml 2 ml vial IV ONE (16:00)
[2017-08-21] MEDS: Insulin Detemir 100 units/mL 10mL Vial SUBQ SCH (20:40)
[2017-08-22] MEDS: Albuterol/Ipratropium Neb 3 ML AERS HHN SCH ×6 (02:26→23:28)
[2017-08-22 04:58] LABS: HEMATOCRIT 23.5 % (41.0-60); MANUAL DIFF REQUIRED? YES; MEAN CELL VOLUME 88.1 fl (81-100); MEAN CORPUSCULAR HEMOGLOBIN 29.1 pg (27.0-31.0); MEAN CORPUSCULAR HGB CONC 33.1 pg (28.0-36.0); MEAN PLATELET VOLUME 10.6 fl; RED BLOOD COUNT 2.67 Mil/cmm (3.80-5.20); RED CELL DISTRIBUTION WIDTH 16.6 % (11.5-20.0)
[2017-08-22 05:22] LABS: HEMOGLOBIN 7.8 gm/dL (12-16); PLATELET COUNT 245 Th/cmm (150-400); WHITE BLOOD COUNT 17.3 Th/cmm (4.8-10.8)
[2017-08-22] MEDS: INSULIN ASPART SLIDING SCALE 100 UNITS/ML UNIT SUBQ SCH ×4 (05:51→23:54)
[2017-08-22 06:06] LABS: EOSINOPHIL 3 % (0-5); LYMPHOCYTE 12 % (20-50); MONOCYTE 10 % (2-10); NEUTROPHILS 75 % (40-80); TOTAL CELLS COUNTED 100
[2017-08-22 08:35] LABS: ANION GAP 17.7 (7.0-16.0); BUN - UREA NITROGEN 42 mg/dL (7-25); CALCIUM SERUM 9.3 mg/dL (8.6-10.3); CHLORIDE 96 mEq/L (98-107); CREATININE - SERUM 2.4 mg/dL (0.6-1.2); GLUCOSE 213 mg/dL (70-105); POTASSIUM SERUM 3.7 mEq/L (3.5-5.1); SODIUM SERUM 135 mEq/L (136-145)
[2017-08-22] MEDS: Chlorhexidine Gluconate 0.12% 15mL Mouthwash MM SCH ×2 (08:50→20:08)
[2017-08-22] MEDS: Lactobacillus Rhamnosus GG 15 Billion CFU CAP.SPRINK PO SCH (09:40)
[2017-08-22] MEDS: Aspirin 81mg Chewable Tab PO SCH (09:41)
[2017-08-22] MEDS: Multivitamin Tab PO SCH (09:41)
--- NOTE | 2017-08-22 09:52 | Diagnostic Imaging Report ---
Portable chest x-ray HISTORY: Shortness of breath, congestive heart failure Compared with prior exam of August 20, 2017, the heart remains enlarged. There is evidence persistent bilateral pleural effusions (left greater than right). IMPRESSION: 1. No change in the cardiopulmonary status
--- NOTE | 2017-08-22 15:21 | General Progress Note ---
Subjective - Review of Systems Service Date: 08/22/17 Subjective: sleeping, on vent Objective - Results Result Diagrams: 08/22/17 04:40 08/22/17 04:00 Recent Labs: Laboratory Last Values WBC 17.3 Th/cmm (4.8-10.8) H 08/22/17 04:40 RBC 2.67 Mil/cmm (3.80-5.20) L 08/22/17 04:40 Hgb 7.8 gm/dL (12-16) L* 08/22/17 04:40 Hct 23.5 % (41.0-60) L 08/22/17 04:40 MCV 88.1 fl (81-100) 08/22/17 04:40 MCH 29.1 pg (27.0-31.0) 08/22/17 04:40 MCHC Differential 33.1 pg (28.0-36.0) 08/22/17 04:40 RDW 16.6 % (11.5-20.0) 08/22/17 04:40 Plt Count 245 Th/cmm (150-400) D 08/22/17 04:40 MPV 10.6 fl 08/22/17 04:40 Neutrophils % KINDERGARTNER 08/21/17 07:30 Band Neutrophils % 2 % (0-10) 08/21/17 07:30 Lymphocytes % KINDERGARTNER 08/21/17 07:30 Monocytes % KINDERGARTNER 08/21/17 07:30 Eosinophils % KINDERGARTNER 08/21/17 07:30 Basophils % KINDERGARTNER 08/21/17 07:30 Neutrophils (Manual) 75 % (40-80) 08/22/17 04:40 Lymphocytes 12 % (20-50) L 08/22/17 04:40 Monocytes 10 % (2-10) 08/22/17 04:40 Eosinophils 3 % (0-5) 08/22/17 04:40 Basophils 2 % (0-3) 08/21/17 07:30 Hypochromia 1+ 08/02/17 15:37 Platelet Estimate ADEQUATE (NORMAL) 08/21/17 07:30 Platelet Morphology NORMAL (NORMAL) 08/20/17 04:45 Anisocytosis 1+ 08/07/17 05:45 Crenated Cell 2+ 08/02/17 15:37 RBC Morph Micro Appear ABNORMAL (NORMAL) 08/02/17 15:37 PT 12.9 SECONDS (9.5-11.5) H 08/02/17 13:58 INR 1.23 (0.5-1.4) 08/02/17 13:58 PTT (Actin FS) 33.6 SECONDS (26.0-38.0) 08/02/17 13:58 Specimen Source Arterial 08/03/17 08:58 Sample Site Right Radial 08/03/17 08:58 pH 7.42 (7.35-7.45) 08/03/17 08:58 pCO2 37.0 mmHg (35.0-45.0) 08/03/17 08:58 pO2 204.0 mmHg (80.0-100.0) H 08/03/17 08:58 HCO3 24.8 mEq/L (20.0-26.0) 08/03/17 08:58 Base Excess -0.2 mEq/L (-3.0-3.0) 08/03/17 08:58 O2 Saturation 100.0 % (92.0-100.0) 08/03/17 08:58 Rhett Test Positive 08/03/17 08:58 Vent Rate 12 08/03/17 08:58 Inspired O2 60 08/03/17 08:58 Tidal Volume 450 08/03/17 08:58 PEEP 5 08/03/17 08:58 Pressure (ins/psv/peep) NA 08/03/17 08:58 Critical Value LZHANG 08/03/17 08:58 Sodium 135 mEq/L (136-145) L 08/22/17 04:00 Potassium 3.7 mEq/L (3.5-5.1) 08/22/17 04:00 Chloride 96 mEq/L (98-107) L 08/22/17 04:00 Carbon Dioxide 25.0 mEq/L (21.0-31.0) 08/22/17 04:00 Anion Gap 17.7 (7.0-16.0) H 08/22/17 04:00 BUN 42 mg/dL (7-25) H 08/22/17 04:00 Creatinine 2.4 mg/dL (0.6-1.2) H 08/22/17 04:00 Est GFR ( Amer) TNP 08/22/17 04:00 Est GFR (Non-Af Amer) TNP 08/22/17 04:00 BUN/Creatinine Ratio 17.5 08/22/17 04:00 Glucose 213 mg/dL (70-105) H 08/22/17 04:00 POC Glucose 306 MG/DL (70 - 105) H 08/22/17 12:21 Hemoglobin A1c % 7.7 % (4.0-6.0) H 08/02/17 15:37 Whole Bld Lactic Acid 1.97 mmol/L (0.60-1.99) 08/02/17 13:49 Calcium 9.3 mg/dL (8.6-10.3) 08/22/17 04:00 Magnesium 2.2 mg/dL (1.9-2.7) 08/21/17 07:30 Iron 10 ug/dL (27-139) L 08/02/17 13:56 TIBC 135 ug/dL (250-450) L 08/02/17 13:56 Iron Saturation 7 % (15-55) L 08/02/17 13:56 Unsaturated IBC 125 ug/dL (118-369) 08/02/17 13:56 Ferritin 588 ng/mL (15-150) H 08/02/17 13:56 Total Bilirubin 0.4 mg/dL (0.3-1.0) 08/19/17 04:58 Direct Bilirubin 0.09 mg/dL (0.0-0.2) 08/02/17 13:57 AST 37 U/L (13-39) 08/19/17 04:58 ALT 10 U/L (7-52) 08/19/17 04:58 Alkaline Phosphatase 72 U/L (34-104) 08/19/17 04:58 Troponin I 0.10 ng/mL (0.01-0.05) H* D 08/20/17 17:00 B-Natriuretic Peptide 839.0 pg/mL (5.0-100.0) H 08/19/17 04:58 Total Protein 7.5 gm/dL (6.0-8.3) 08/19/17 04:58 Albumin 2.8 gm/dL (3.7-5.3) L 08/19/17 04:58 Globulin 4.7 gm/dL 08/19/17 04:58 Albumin/Globulin Ratio 0.6 (1.0-1.8) L 08/19/17 04:58 Triglycerides 132 mg/dL (<150) 08/04/17 06:30 Cholesterol 55 mg/dL (<200) 08/04/17 06:30 LDL Cholesterol Direct 16 mg/dL (75-193) L 08/04/17 06:30 HDL Cholesterol 13 mg/dL (23-92) L 08/04/17 06:30 Amylase 12 U/L (29-103) L 08/02/17 13:43 Lipase 4 U/L (11-82) L 08/02/17 13:43 TSH 3.74 uIU/ml (0.34-5.60) 08/04/17 06:30 Stool Occult Blood POSITIVE (NEGATIVE) H 08/03/17 17:50 Random Vancomycin 14.8 ug/mL (5.0-40.0) 08/09/17 06:34 Hepatitis A IgM Ab Negative (Negative) 08/08/17 08:15 Hep Bs Antigen Negative (Negative) 08/08/17 08:15 Hep B Core IgM Ab Negative (Negative) 08/08/17 08:15 Hepatitis C Antibody <0.1 s/co ratio (0.0-0.9) 08/08/17 08:15 Blood Type A POSITIVE 08/15/17 07:50 Antibody Screen POSITIVE 08/15/17 07:50 Antibody Identification Anti-K 08/15/17 07:50 NEVILLE, IgG Interpret NEGATIVE 08/15/17 07:50 Crossmatch See Detail 08/15/17 07:50 - Physical Exam Vitals and I&O: Vital Signs Temp 99 F 08/22/17 14:43 Pulse 82 08/22/17 14:43 Resp 18 08/22/17 14:43 BP 113/47 08/22/17 14:43 Pulse Ox 100 08/22/17 13:00 Intake & Output 08/21/17 08/22/17 08/22/17 18:59 06:59 18:59 Intake Total 1526.68 1160.944 254.787 Output Total 1100 Balance 426.68 1160.944 254.787 Weight (lbs) 94.432 kg 95.254 kg Intake: Intake, IV Amount 626.68 460.944 254.787 Albumin 25% 25gm/100mL 25 100 gm In 100 ml @ 50 mls/hr IV X1 ONE Rx#:[id number] Levofloxacin 250mg/50mL 50 250 mg In 50 ml @ 50 mls/ hr IV Q48HR [facility] Rx#: [id number] Norepinephrine 8 mg In 376.68 310.944 204.787 Sodium Chloride 0.9% 250 ml @ 18 MCG/MIN 34.83 mls /hr IV TITR PRN Rx#: [id number] Piperacillin Sodium/ 100 50 50 Tazobact 2.25 gm In Sodium Chloride 0.9% 50 ml @ 100 mls/hr IV Q6HR [facility] Rx#:[id number] Tube Feeding 600 600 Other 300 100 Output: Urine 0 Hemodialysis 1100 Other: # Bowel Movements 0 Active Medications: Current Medications Acetaminophen (Tylenol) 650 mg GT DAILY [facility] Stop: 10/20/17 08:59 Last Admin: 08/22/17 09:41 Dose: 650 mg Albuterol/Ipratropium (Duoneb Neb) 3 ml HHN Q4HRT [facility] Stop: 10/19/17 10:59 Last Admin: 08/22/17 12:24 Dose: 3 ml Amiodarone HCl (Cordarone) 200 mg GT Q12H [facility] Stop: 10/20/17 10:59 Last Admin: 08/22/17 11:15 Dose: 200 mg Ascorbic Acid (Vitamin C) 500 mg PO DAILY [facility] Stop: 10/20/17 08:59 Last Admin: 08/22/17 09:41 Dose: 500 mg Aspirin (Aspirin Chewable) 81 mg PO DAILY [facility] Stop: 10/20/17 08:59 Last Admin: 08/22/17 09:41 Dose: 81 mg Atorvastatin Calcium (Lipitor) 40 mg GT DAILY [facility] PRN Reason: Protocol Stop: 10/20/17 08:59 Last Admin: 08/22/17 09:40 Dose: 40 mg Bisacodyl (Dulcolax 10 Mg Supp) 10 mg RC Q72HR PRN PRN Reason: if MOM ineffective Stop: 10/19/17 11:29 Chlorhexidine Gluconate (Peridex) 15 ml MM 0800,2000 [facility] Stop: 10/19/17 19:59 Last Admin: 08/22/17 08:50 Dose: 15 ml Cholecalciferol (Vitamin D3) 1,000 iu PO DAILY [facility] Stop: 10/20/17 08:59 Last Admin: 08/22/17 09:40 Dose: 1,000 iu Diltiazem HCl (Cardizem) 20 mg IV Q4HR PRN PRN Reason: HR ABOVE 120 Stop: 09/13/17 11:59 Docusate Sodium (Colace) 100 mg PO DAILY [facility] Stop: 10/20/17 08:59 Last Admin: 08/22/17 09:40 Dose: 100 mg Heparin Sodium (Porcine) (Heparin) 5,000 units SUBQ Q12HR [facility] Stop: 10/19/17 20:59 Last Admin: 08/22/17 09:43 Dose: 5,000 units Levofloxacin (Levaquin Pb) 250 mg in 50 mls @ 50 mls/hr IV Q48HR [facility] Stop: 10/18/17 08:59 Last Infusion: 08/21/17 10:35 Dose: Infused Dopamine HCl/Dextrose (Dopamine) 400 mg in 250 mls @ 0 mls/hr IV TITR PRN; Protocol; 0 MCG/KG/MIN PRN Reason: BP MAINTENANCE (PER PROTOCOL) Stop: 10/19/17 11:28 Piperacillin Sod/Tazobactam (Sod 2.25 gm/ Sodium Chloride) 50 mls @ 100 mls/hr IV Q6HR [facility] Stop: 10/19/17 11:59 Last Admin: 08/22/17 12:16 Dose: 100 mls/hr Norepinephrine Bitartrate 8 mg (/ Sodium Chloride) 258 mls @ 34.83 mls/hr IV TITR PRN; Protocol; 18 MCG/MIN PRN Reason: BP MAINTENANCE (PER PROTOCOL) Stop: 10/19/17 11:09 Last Admin: 08/22/17 11:04 Dose: 15 mcg/min, 29.02 mls/hr Insulin Aspart (Novolog Insulin Sliding Scale) 0 units SUBQ Q6HR [facility] PRN Reason: Protocol Stop: 10/19/17 11:59 Last Admin: 08/22/17 12:22 Dose: 8 units Insulin Detemir (Levemir Insulin) 16 units SUBQ HS [facility] PRN Reason: Protocol Stop: 10/19/17 20:59 Last Admin: 08/21/17 20:40 Dose: 16 units Lactobacillus Rhamnosus (Culturelle 15b) 1 each PO DAILY [facility] Stop: 10/20/17 08:59 Last Admin: 08/22/17 09:40 Dose: 1 each Lorazepam (Ativan) 2 mg IVP Q4HR PRN; Protocol PRN Reason: Agitation Stop: 10/15/17 11:49 Last Admin: 08/22/17 09:44 Dose: 2 mg Magnesium Hydroxide (Milk Of Magnesia) 30 ml PO Q72HR PRN PRN Reason: Constipation Stop: 10/19/17 11:44 Mirtazapine (Remeron) 15 mg GT HS [facility] PRN Reason: Protocol Stop: 10/19/17 20:59 Last Admin: 08/21/17 20:40 Dose: 15 mg Multivitamins/Vitamin C (Theragran) 1 tab PO DAILY [facility] Stop: 10/20/17 08:59 Last Admin: 08/22/17 09:41 Dose: 1 tab Ondansetron HCl (Zofran) 4 mg IV Q6H PRN PRN Reason: Nausea / Vomiting Stop: 10/19/17 11:40 Pantoprazole Sodium (Protonix) 40 mg IVP DAILY [facility] Stop: 10/20/17 08:59 Last Admin: 08/22/17 09:43 Dose: 40 mg Simethicone (Mylicon) 80 mg GT Q6HR PRN PRN Reason: Gas Stop: 10/19/17 11:59 Sodium Phosphate (Fleet Enema) 135 ml RC PRN PRN PRN Reason: If MOM/Dulcolax ineffective Stop: 10/19/17 11:29 Zinc Sulfate (Zinc Sulfate) 220 mg PO DAILY [facility] Stop: 10/20/17 08:59 Last Admin: 08/22/17 09:41 Dose: 220 mg General: Alert, No acute distress (scattered rhonchi) HEENT: Atraumatic, PERRLA, EOMI, Mucous membr. moist/pink Neck: Supple, Other (TRACH) Cardiovascular: Regular rate Lungs: Other (coarse rhonchi) Abdomen: Bowel sounds, Soft, Other (INTACT GT) Extremities: Edema (upper wxtrmities), Other (upper ext) Neurological: Sensation intact Skin: no Rash Psych/Mental Status: Mood NL - Procedures Procedures: Procedures Procedure Code Date BLOOD TRANSFUSION SERVICE 97170 08/02/17 EXCISION OF STOMACH, ENDO, DIAGN [id number] 07/10/17 INSPECTION OF LOWER INTESTINAL TRACT, ENDO [id number] 02/01/18 PERFORMANCE OF URINARY FILTRATION, <6 HRS/DAY [id number] 07/10/17 RESPIRATORY VENTILATION, GREATER THAN 96 CONSECUTIVE HOURS [id number] 08/02/17 TRANSFUSE NONAUT RED BLOOD CELLS IN PERIPH VEIN, PERC 06314T3 08/02/17 Assessment/Plan - Assessment Assessment: 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/L UE Edema, Cellulitis Shock Sepsis RF on Vent Acute on Chronic Decomp CHF G (-) Septicemia A. fib to V. tach - Plan Plan: Lab - Result Diagrams 08/04/17 06:30 08/04/17 06:30 Current Medications Acetaminophen (Tylenol 650mg/20.3ml Suspension) 650 mg GT DAILY [facility] Stop: 10/03/17 08:59 Last Admin: 08/04/17 09:18 Dose: 650 mg Albuterol/Ipratropium (Duoneb Neb) 3 ml HHN Q4HRT [facility] Stop: 10/02/17 10:59 Last Admin: 08/04/17 11:25 Dose: 3 ml Ascorbic Acid (Vitamin C) 500 mg PO DAILY [facility] Stop: 10/03/17 08:59 Last Admin: 08/04/17 09:18 Dose: 500 mg Aspirin (Aspirin Chewable) 81 mg GT DAILY [facility] Stop: 10/03/17 08:59 Last Admin: 08/04/17 09:18 Dose: 81 mg Atorvastatin Calcium (Lipitor) 40 mg GT HS [facility] PRN Reason: Protocol Stop: 10/02/17 20:59 Last Admin: 08/03/17 20:19 Dose: 40 mg Bisacodyl (Dulcolax 10 Mg Supp) 10 mg RC Q72HR PRN PRN Reason: IF MOM INEFFECTIVE Stop: 10/02/17 14:13 Bisacodyl (Dulcolax 10 Mg Supp) 10 mg RC PRN PRN PRN Reason: IF MOM INEFFECTIVE Stop: 10/02/17 14:13 Chlorhexidine Gluconate (Peridex) 15 ml MM 0800,2000 [facility] Stop: 10/02/17 07:59 Last Admin: 08/04/17 08:00 Dose: 15 ml Cholecalciferol (Vitamin D3) 1,000 iu GT DAILY [facility] Stop: 10/03/17 08:59 Last Admin: 08/04/17 09:18 Dose: 1,000 iu Diltiazem HCl (Cardizem) 5 mg IVP Q4H PRN PRN Reason: INCREASE HEART RATE Stop: 10/01/17 21:59 Last Admin: 08/03/17 01:38 Dose: 5 mg Docusate Sodium (Colace) 100 mg PO DAILY [facility] Stop: 10/03/17 08:59 Last Admin: 08/04/17 09:18 Dose: 100 mg Heparin Sodium (Porcine) (Heparin) 5,000 units HD UD [facility] Stop: 08/05/17 08:59 Last Admin: 08/04/17 09:19 Dose: Not Given Fluconazole (Diflucan) 200 mg in 100 mls @ 100 mls/hr IV Q24HR [facility] Stop: 10/02/17 14:59 Last Infusion: 08/03/17 15:40 Dose: Infused Meropenem 500 mg/ Sodium (Chloride) 100 mls @ 100 mls/hr IV Q24H [facility] Stop: 10/02/17 12:59 Last Admin: 08/04/17 13:17 Dose: 100 mls/hr Dopamine HCl/Dextrose (Dopamine) 400 mg in 250 mls @ 0 mls/hr IV TITR PRN; Protocol; Per Protocol PRN Reason: BP MAINTENANCE (PER PROTOCOL) Stop: 10/02/17 07:47 Norepinephrine Bitartrate 4 mg (/ Dextrose) 254 mls @ 0 mls/hr IV TITR PRN; Protocol; Per Protocol PRN Reason: BP MAINTENANCE (PER PROTOCOL) Stop: 10/02/17 08:31 Last Admin: 08/03/17 23:47 Dose: 4 mcg/min, 15.24 mls/hr Colistimethate Sodium 80 mg/ (Sodium Chloride) 100 mls @ 100 mls/hr IV Q36H [facility] Stop: 10/02/17 20:59 Last Infusion: 08/03/17 21:20 Dose: Infused Insulin Aspart (Novolog Insulin Sliding Scale) 0 units SUBQ Q6HR [facility] PRN Reason: Protocol Stop: 10/02/17 00:00 Last Admin: 08/04/17 11:30 Dose: 6 units Lorazepam (Ativan) 1 mg IVP Q2HR PRN; Protocol PRN Reason: Restlessness Stop: 10/01/17 21:18 Last Admin: 08/04/17 01:05 Dose: 1 mg Magnesium Hydroxide (Milk Of Magnesia) 30 ml GT Q72H PRN PRN Reason: NO BM FOR THREE DAYS Stop: 10/02/17 14:13 Mirtazapine (Remeron) 15 mg GT HS [facility] PRN Reason: Protocol Stop: 10/02/17 20:59 Last Admin: 08/03/17 20:19 Dose: 15 mg Miscellaneous (Vancomycin Iv Per Pharmacy) 1 ea PRN PRN PRN Reason: PROTOCOL Stop: 10/01/17 20:42 Miscellaneous (Zosyn Iv Per Pharmacy) 1 ea PRN PRN PRN Reason: PROTOCOL Stop: 10/01/17 20:42 Multivitamins/Vitamin C (Theragran) 1 tab PO DAILY [facility] Stop: 10/03/17 08:59 Last Admin: 08/04/17 09:18 Dose: 1 tab Ondansetron HCl (Zofran Odt) 4 mg PO Q6HR PRN PRN Reason: Nausea / Vomiting Stop: 10/02/17 14:13 Pantoprazole Sodium (Protonix) 40 mg IVP DAILY [facility] Stop: 10/02/17 08:59 Last Admin: 08/04/17 09:18 Dose: 40 mg Simethicone (Mylicon) 80 mg GT Q6H PRN PRN Reason: GAS PAIN Stop: 10/02/17 14:13 Sodium Phosphate (Fleet Enema) 118 ml RC PRN PRN PRN Reason: IF MOM/DULCOLAX INEFFECTIVE Stop: 10/02/17 14:13 Temazepam (Restoril) 15 mg GT HS PRN; Protocol PRN Reason: Insomnia Stop: 10/02/17 14:13 Last Admin: 08/03/17 20:19 Dose: 15 mg Zinc Sulfate (Zinc Sulfate) 220 mg GT DAILY [facility] Stop: 10/03/17 08:59 Last Admin: 08/04/17 09:18 Dose: 220 Lab - Result Diagrams 08/22/17 04:40 08/22/17 04:00 schedule for HD tomorrow Venous & Arterial duplex scans were negative for DVT or clots CXR still showed persistent b/l effusions, CHF, left > right replace K f/u electrolytes. cbc Reccurence of shock, on levo 14 mcg, Amiodarone BS low, monitor closely, hold Levemir, continue S/S wbc stable 17 Nutritional Asmnt/Malnutr-PDOC - Dietary Evaluation Malnutrition Findings (Please click <Entered> for more info): Nutritional Asmnt/Malnutrition Start: 08/05/17 15: 53 Text: Status: Complete Freq: Document 08/05/17 15:53 JOHANNAMAX (Rec: 08/05/17 16:19 HEIDY [email or web address]) Nutritional Asmnt/Malnutrition Patient General Information Nutritional Screening High Risk Diagnosis sepsis, respiratory failure, ESRD Pertinent Medical Hx/Surgical Hx ESRD on HD, respiratory failure with tracheostomy, dysphagia, a fib, anemia, HTN, GERD Subjective Information Pt on vent, not able to interview. Pt was on TF Novosource Renal 30ml/hr continuous, NPO today for surgery. Pt has dialysis ordred per nurse note. Current Diet Order/ Nutrition Support NPO on 08/05 Pertinent Medications vit C, vit D3, colace, novolog , remeron, theragran, protonix , zinc Pertinent Labs 08/05 Na 134, K 3.6, Cl 102, BUN 77, Cr 4.2, Glucose 216, POC 224-233 08/02 A1c 7.7 Nutritional Hx/Data Height 1.6 m Height (Calculated Centimeters) 160.0 Current Weight (lbs) 87.543 kg Weight (Calculated Kilograms) 87.5 Weight (Calculated Grams) 82746.3 [place] Body Weight 115 Body Mass Index (BMI) 34.2 Weight Status Obese GI Symptoms GI Symptoms None Last BM 08/04 Difficult in: None Skin Integrity/Comment: reddened to left/right inner thigh, right lateral index finger, right/left arm; skin tear to left abdominal fold; pressure area to coccy/sacral Estimated Nutritional Goals BEE in Kcals: Adj wt of IBW Calories/Kcals/Kg 30-35 adj wt 61kg Kcals Calculated 1072-3705 Protein: Adj wt of IBW Protein g/k.2-1.4 Protein Calculated 73-85 Fluid: ml 1830-2135ml (1ml/kcal) Nutritional Problem 1. Problem Problem altered nutrition related lab values Etiology hx of ESRD, endocrine dysfunction Signs/Symptoms: BUN 77, Cr 4.2, Glucose 216, POC 224-233, A1c 7.7 Malnutrition Alert Protein-Calorie Malnutrition N/A Is there a minimum of two criteria No selected? Query Text:Check all the applicable criteria. A minimum of two criteria are recommended for diagnosis of either severe or non-severe malnutrition. Intervention/Recommendation Comments 1. Resume TF Novosource Renal 30ml/hr continuous as ordered. increase to goal rate of 40ml /hr continuous as tolerated. This will provide 1920kcal, 87g protein and 688ml free water, meeting 100% of nutritional needs 2. Monitor TF rate, tolerance, wt weekly, skin integrity and labs 3. F/U as high risk in 2-3 days, 08/07-08/08 Expected Outcomes/Goals Expected Outcomes/Goals 1. Pt to meet at least 75% of nutritional needs via nutrition support with tolerance 2. Wt stability, skin to remain intact, labs to approach WNL.
[2017-08-22] MEDS: Insulin Detemir 100 units/mL 10mL Vial SUBQ SCH (21:02)
[2017-08-23] MEDS: Albuterol/Ipratropium Neb 3 ML AERS HHN SCH ×6 (03:24→22:43)
[2017-08-23] MEDS: INSULIN ASPART SLIDING SCALE 100 UNITS/ML UNIT SUBQ SCH ×3 (05:43→17:32)
[2017-08-23 06:52] LABS: MEAN CELL VOLUME 93.8 fl (81-100); MEAN CORPUSCULAR HGB CONC 38.4 pg (28.0-36.0); MEAN PLATELET VOLUME 10.8 fl; PLATELET COUNT 379 Th/cmm (150-400); RED BLOOD COUNT 2.13 Mil/cmm (3.80-5.20); RED CELL DISTRIBUTION WIDTH 16.1 % (11.5-20.0)
[2017-08-23 06:55] LABS: HEMOGLOBIN 7.7 gm/dL (12-16); WHITE BLOOD COUNT 15.9 Th/cmm (4.8-10.8)
[2017-08-23 07:04] LABS: ANION GAP 15.5 (7.0-16.0); BUN - UREA NITROGEN 58 mg/dL (7-25); CARBON DIOXIDE 24.9 mEq/L (21.0-31.0); CHLORIDE 99 mEq/L (98-107); CREATININE - SERUM 2.9 mg/dL (0.6-1.2); GLUCOSE 198 mg/dL (70-105); POTASSIUM SERUM 3.4 mEq/L (3.5-5.1); SODIUM SERUM 136 mEq/L (136-145)
[2017-08-23] MEDS: Lactobacillus Rhamnosus GG 15 Billion CFU CAP.SPRINK PO SCH (08:17)
[2017-08-23] MEDS: Multivitamin Tab PO SCH (08:17)
[2017-08-23] MEDS: Aspirin 81mg Chewable Tab PO SCH (08:17)
[2017-08-23] MEDS: Chlorhexidine Gluconate 0.12% 15mL Mouthwash MM SCH ×2 (08:25→20:30)
[2017-08-23 08:35] LABS: LYMPHOCYTE 3 % (20-50); MANUAL DIFF REQUIRED? YES; NEUTROPHILS 84 % (40-80); TOTAL CELLS COUNTED 100
[2017-08-23 08:36] LABS: EOSINOPHIL 5 % (0-5); MONOCYTE 8 % (2-10); PLATELET ESTIMATE ADEQUATE (NORMAL)
[2017-08-23] MEDS: Levofloxacin 250mg/50mL 250 MG/50 ML BAG IV SCH (08:39)
[2017-08-23] MEDS ORDERED: Probiotic Screen MC PRN (10:30)
[2017-08-23] MEDS ORDERED: Potassium Chloride Elixir 20 mEq /15 mL UDC GT ONE (12:51)
--- NOTE | 2017-08-23 12:51 | General Progress Note ---
Subjective - Review of Systems Service Date: 08/23/17 Subjective: sleeping, on vent Objective - Results Result Diagrams: 08/23/17 06:45 08/23/17 06:45 Recent Labs: Laboratory Last Values WBC 15.9 Th/cmm (4.8-10.8) H 08/23/17 06:45 RBC 2.13 Mil/cmm (3.80-5.20) L 08/23/17 06:45 Hgb 7.7 gm/dL (12-16) L* 08/23/17 06:45 Hct 20.0 % (41.0-60) L* 08/23/17 06:45 MCV 93.8 fl (81-100) 08/23/17 06:45 MCH 36.0 pg (27.0-31.0) H 08/23/17 06:45 MCHC Differential 38.4 pg (28.0-36.0) H 08/23/17 06:45 RDW 16.1 % (11.5-20.0) 08/23/17 06:45 Plt Count 379 Th/cmm (150-400) 08/23/17 06:45 MPV 10.8 fl 08/23/17 06:45 Neutrophils % [employer] 08/23/17 06:45 Band Neutrophils % 2 % (0-10) 08/21/17 07:30 Lymphocytes % [employer] 08/23/17 06:45 Monocytes % [employer] 08/23/17 06:45 Eosinophils % [employer] 08/23/17 06:45 Basophils % [employer] 08/23/17 06:45 Neutrophils (Manual) 84 % (40-80) H 08/23/17 06:45 Lymphocytes 3 % (20-50) L 08/23/17 06:45 Monocytes 8 % (2-10) 08/23/17 06:45 Eosinophils 5 % (0-5) 08/23/17 06:45 Basophils 2 % (0-3) 08/21/17 07:30 Hypochromia 1+ 08/02/17 15:37 Platelet Estimate ADEQUATE (NORMAL) 08/23/17 06:45 Platelet Morphology NORMAL (NORMAL) 08/20/17 04:45 Anisocytosis 1+ 08/07/17 05:45 Crenated Cell 2+ 08/02/17 15:37 RBC Morph Micro Appear ABNORMAL (NORMAL) 08/02/17 15:37 PT 12.9 SECONDS (9.5-11.5) H 08/02/17 13:58 INR 1.23 (0.5-1.4) 08/02/17 13:58 PTT (Actin FS) 33.6 SECONDS (26.0-38.0) 08/02/17 13:58 Specimen Source Arterial 08/03/17 08:58 Sample Site Right Radial 08/03/17 08:58 pH 7.42 (7.35-7.45) 08/03/17 08:58 pCO2 37.0 mmHg (35.0-45.0) 08/03/17 08:58 pO2 204.0 mmHg (80.0-100.0) H 08/03/17 08:58 HCO3 24.8 mEq/L (20.0-26.0) 08/03/17 08:58 Base Excess -0.2 mEq/L (-3.0-3.0) 08/03/17 08:58 O2 Saturation 100.0 % (92.0-100.0) 08/03/17 08:58 Rhett Test Positive 08/03/17 08:58 Vent Rate 12 08/03/17 08:58 Inspired O2 60 08/03/17 08:58 Tidal Volume 450 08/03/17 08:58 PEEP 5 08/03/17 08:58 Pressure (ins/psv/peep) NA 08/03/17 08:58 Critical Value LZHANG 08/03/17 08:58 Sodium 136 mEq/L (136-145) 08/23/17 06:45 Potassium 3.4 mEq/L (3.5-5.1) L 08/23/17 06:45 Chloride 99 mEq/L (98-107) 08/23/17 06:45 Carbon Dioxide 24.9 mEq/L (21.0-31.0) 08/23/17 06:45 Anion Gap 15.5 (7.0-16.0) 08/23/17 06:45 BUN 58 mg/dL (7-25) H 08/23/17 06:45 Creatinine 2.9 mg/dL (0.6-1.2) H 08/23/17 06:45 Est GFR ( Amer) TNP 08/23/17 06:45 Est GFR (Non-Af Amer) TNP 08/23/17 06:45 BUN/Creatinine Ratio 20.0 08/23/17 06:45 Glucose 198 mg/dL (70-105) H 08/23/17 06:45 POC Glucose 159 MG/DL (70 - 105) H 08/23/17 11:58 Hemoglobin A1c % 7.7 % (4.0-6.0) H 08/02/17 15:37 Whole Bld Lactic Acid 1.97 mmol/L (0.60-1.99) 08/02/17 13:49 Calcium 9.0 mg/dL (8.6-10.3) 08/23/17 06:45 Magnesium 2.2 mg/dL (1.9-2.7) 08/21/17 07:30 Iron 10 ug/dL (27-139) L 08/02/17 13:56 TIBC 135 ug/dL (250-450) L 08/02/17 13:56 Iron Saturation 7 % (15-55) L 08/02/17 13:56 Unsaturated IBC 125 ug/dL (118-369) 08/02/17 13:56 Ferritin 588 ng/mL (15-150) H 08/02/17 13:56 Total Bilirubin 0.4 mg/dL (0.3-1.0) 08/19/17 04:58 Direct Bilirubin 0.09 mg/dL (0.0-0.2) 08/02/17 13:57 AST 37 U/L (13-39) 08/19/17 04:58 ALT 10 U/L (7-52) 08/19/17 04:58 Alkaline Phosphatase 72 U/L (34-104) 08/19/17 04:58 Troponin I 0.10 ng/mL (0.01-0.05) H* D 08/20/17 17:00 B-Natriuretic Peptide 839.0 pg/mL (5.0-100.0) H 08/19/17 04:58 Total Protein 7.5 gm/dL (6.0-8.3) 08/19/17 04:58 Albumin 2.8 gm/dL (3.7-5.3) L 08/19/17 04:58 Globulin 4.7 gm/dL 08/19/17 04:58 Albumin/Globulin Ratio 0.6 (1.0-1.8) L 08/19/17 04:58 Triglycerides 132 mg/dL (<150) 08/04/17 06:30 Cholesterol 55 mg/dL (<200) 08/04/17 06:30 LDL Cholesterol Direct 16 mg/dL (75-193) L 08/04/17 06:30 HDL Cholesterol 13 mg/dL (23-92) L 08/04/17 06:30 Amylase 12 U/L (29-103) L 08/02/17 13:43 Lipase 4 U/L (11-82) L 08/02/17 13:43 TSH 3.74 uIU/ml (0.34-5.60) 08/04/17 06:30 Stool Occult Blood POSITIVE (NEGATIVE) H 08/03/17 17:50 Random Vancomycin 14.8 ug/mL (5.0-40.0) 08/09/17 06:34 Hepatitis A IgM Ab Negative (Negative) 08/08/17 08:15 Hep Bs Antigen Negative (Negative) 08/08/17 08:15 Hep B Core IgM Ab Negative (Negative) 08/08/17 08:15 Hepatitis C Antibody <0.1 s/co ratio (0.0-0.9) 08/08/17 08:15 Blood Type A POSITIVE 08/15/17 07:50 Antibody Screen POSITIVE 08/15/17 07:50 Antibody Identification Anti-K 08/15/17 07:50 NEVILLE, IgG Interpret NEGATIVE 08/15/17 07:50 Crossmatch See Detail 08/15/17 07:50 - Physical Exam Vitals and I&O: Vital Signs Temp 98 F 08/23/17 08:00 Pulse 147 08/23/17 11:30 Resp 17 08/23/17 11:00 BP 102/55 08/23/17 11:30 Pulse Ox 100 08/23/17 11:08 Intake & Output 08/22/17 08/23/17 08/23/17 18:59 06:59 18:59 Intake Total 8953.904 3731.636 50 Output Total 0 Balance 9654.682 9710.636 50 Weight (lbs) 105.687 kg 105.778 kg Intake: Intake, IV Amount 354.787 616.636 50 Levofloxacin 250mg/50mL 50 250 mg In 50 ml @ 50 mls/ hr IV Q48HR [facility] Rx#: [id number] Norepinephrine 8 mg In 204.787 516.636 Sodium Chloride 0.9% 250 ml @ 18 MCG/MIN 34.83 mls /hr IV TITR PRN Rx#: [id number] Piperacillin Sodium/ 150 100 Tazobact 2.25 gm In Sodium Chloride 0.9% 50 ml @ 100 mls/hr IV Q6HR [facility] Rx#:[id number] Tube Feeding 600 600 Other 300 Output: Urine 0 Other: # Bowel Movements 1 Stool Characteristics Soft Soft Soft Liquid Liquid Brown Brown Green Green Active Medications: Current Medications Acetaminophen (Tylenol) 650 mg GT DAILY [facility] Stop: 10/20/17 08:59 Last Admin: 08/23/17 08:17 Dose: 650 mg Albuterol/Ipratropium (Duoneb Neb) 3 ml HHN Q4HRT [facility] Stop: 10/19/17 10:59 Last Admin: 08/23/17 11:05 Dose: 3 ml Amiodarone HCl (Cordarone) 200 mg GT Q12H [facility] Stop: 10/20/17 10:59 Last Admin: 08/23/17 10:55 Dose: 200 mg Ascorbic Acid (Vitamin C) 500 mg PO DAILY [facility] Stop: 10/20/17 08:59 Last Admin: 08/23/17 08:17 Dose: 500 mg Aspirin (Aspirin Chewable) 81 mg PO DAILY [facility] Stop: 10/20/17 08:59 Last Admin: 08/23/17 08:17 Dose: 81 mg Atorvastatin Calcium (Lipitor) 40 mg GT DAILY [facility] PRN Reason: Protocol Stop: 10/20/17 08:59 Last Admin: 08/23/17 08:16 Dose: 40 mg Bisacodyl (Dulcolax 10 Mg Supp) 10 mg RC Q72HR PRN PRN Reason: if MOM ineffective Stop: 10/19/17 11:29 Chlorhexidine Gluconate (Peridex) 15 ml MM 0800,1999 [facility] Stop: 10/19/17 19:59 Last Admin: 08/23/17 08:25 Dose: 15 ml Cholecalciferol (Vitamin D3) 1,000 iu PO DAILY [facility] Stop: 10/20/17 08:59 Last Admin: 08/23/17 08:17 Dose: 1,000 iu Diltiazem HCl (Cardizem) 20 mg IV Q4HR PRN PRN Reason: HR ABOVE 120 Stop: 09/13/17 11:59 Docusate Sodium (Colace) 100 mg PO DAILY [facility] Stop: 10/20/17 08:59 Last Admin: 08/23/17 08:17 Dose: 100 mg Heparin Sodium (Porcine) (Heparin) 5,000 units SUBQ Q12HR [facility] Stop: 10/19/17 20:59 Last Admin: 08/23/17 08:18 Dose: 5,000 units Levofloxacin (Levaquin Pb) 250 mg in 50 mls @ 50 mls/hr IV Q48HR [facility] Stop: 10/18/17 08:59 Last Infusion: 08/23/17 09:40 Dose: Infused Dopamine HCl/Dextrose (Dopamine) 400 mg in 250 mls @ 0 mls/hr IV TITR PRN; Protocol; 0 MCG/KG/MIN PRN Reason: BP MAINTENANCE (PER PROTOCOL) Stop: 10/19/17 11:28 Piperacillin Sod/Tazobactam (Sod 2.25 gm/ Sodium Chloride) 50 mls @ 100 mls/hr IV Q6HR [facility] Stop: 10/19/17 11:59 Last Admin: 08/23/17 12:09 Dose: 100 mls/hr Norepinephrine Bitartrate 8 mg (/ Sodium Chloride) 258 mls @ 34.83 mls/hr IV TITR PRN; Protocol; 18 MCG/MIN PRN Reason: BP MAINTENANCE (PER PROTOCOL) Stop: 10/19/17 11:09 Last Titration: 08/23/17 06:45 Dose: 18 mcg/min, 34.83 mls/hr Insulin Aspart (Novolog Insulin Sliding Scale) 0 units SUBQ Q6HR [facility] PRN Reason: Protocol Stop: 10/19/17 11:59 Last Admin: 08/23/17 12:10 Dose: 2 units Insulin Detemir (Levemir Insulin) 16 units SUBQ HS [facility] PRN Reason: Protocol Stop: 10/19/17 20:59 Last Admin: 08/22/17 21:02 Dose: 16 units Lactobacillus Rhamnosus (Culturelle 15b) 1 each PO DAILY [facility] Stop: 10/20/17 08:59 Last Admin: 08/23/17 08:17 Dose: 1 each Lorazepam (Ativan) 2 mg IVP Q4HR PRN; Protocol PRN Reason: Agitation Stop: 10/15/17 11:49 Last Admin: 08/23/17 08:19 Dose: 2 mg Magnesium Hydroxide (Milk Of Magnesia) 30 ml PO Q72HR PRN PRN Reason: Constipation Stop: 10/19/17 11:44 Mirtazapine (Remeron) 15 mg GT HS [facility] PRN Reason: Protocol Stop: 10/19/17 20:59 Last Admin: 08/22/17 21:03 Dose: 15 mg Miscellaneous (Probiotic Screen) 1 ea MC PRN PRN PRN Reason: PROTOCOL Stop: 10/22/17 10:29 Multivitamins/Vitamin C (Theragran) 1 tab PO DAILY [facility] Stop: 10/20/17 08:59 Last Admin: 08/23/17 08:17 Dose: 1 tab Ondansetron HCl (Zofran) 4 mg IV Q6H PRN PRN Reason: Nausea / Vomiting Stop: 10/19/17 11:40 Pantoprazole Sodium (Protonix) 40 mg IVP DAILY [facility] Stop: 10/20/17 08:59 Last Admin: 08/23/17 08:16 Dose: 40 mg Simethicone (Mylicon) 80 mg GT Q6HR PRN PRN Reason: Gas Stop: 10/19/17 11:59 Sodium Phosphate (Fleet Enema) 135 ml RC PRN PRN PRN Reason: If MOM/Dulcolax ineffective Stop: 10/19/17 11:29 Zinc Sulfate (Zinc Sulfate) 220 mg PO DAILY [facility] Stop: 10/20/17 08:59 Last Admin: 08/23/17 08:17 Dose: 220 mg General: Alert, No acute distress (scattered rhonchi) HEENT: Atraumatic, PERRLA, EOMI, Mucous membr. moist/pink Neck: Supple, Other (TRACH) Cardiovascular: Regular rate Lungs: Other (coarse rhonchi) Abdomen: Bowel sounds, Soft, Other (INTACT GT) Extremities: Edema (upper wxtrmities), Other (upper ext) Neurological: Sensation intact Skin: no Rash Psych/Mental Status: Mood NL - Procedures Procedures: Procedures Procedure Code Date BLOOD TRANSFUSION SERVICE 78471 08/02/17 EXCISION OF STOMACH, ENDO, DIAGN [id number] 07/10/17 INSPECTION OF LOWER INTESTINAL TRACT, ENDO [id number] 07/10/17 PERFORMANCE OF URINARY FILTRATION, <6 HRS/DAY [id number] 07/10/17 RESPIRATORY VENTILATION, GREATER THAN 96 CONSECUTIVE HOURS [id number] 08/02/17 TRANSFUSE NONAUT RED BLOOD CELLS IN PERIPH VEIN, PERC 95387C2 08/02/17 Assessment/Plan - Assessment Assessment: 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/L UE Edema, Cellulitis Shock Sepsis RF on Vent Acute on Chronic Decomp CHF G (-) Septicemia A. fib to V. tach - Plan Plan: Lab - Result Diagrams 08/04/17 06:30 08/04/17 06:30 Current Medications Acetaminophen (Tylenol 650mg/20.3ml Suspension) 650 mg GT DAILY [facility] Stop: 10/03/17 08:59 Last Admin: 08/04/17 09:18 Dose: 650 mg Albuterol/Ipratropium (Duoneb Neb) 3 ml HHN Q4HRT [facility] Stop: 10/02/17 10:59 Last Admin: 08/04/17 11:25 Dose: 3 ml Ascorbic Acid (Vitamin C) 500 mg PO DAILY [facility] Stop: 10/03/17 08:59 Last Admin: 08/04/17 09:18 Dose: 500 mg Aspirin (Aspirin Chewable) 81 mg GT DAILY [facility] Stop: 10/03/17 08:59 Last Admin: 08/04/17 09:18 Dose: 81 mg Atorvastatin Calcium (Lipitor) 40 mg GT HS [facility] PRN Reason: Protocol Stop: 10/02/17 20:59 Last Admin: 08/03/17 20:19 Dose: 40 mg Bisacodyl (Dulcolax 10 Mg Supp) 10 mg RC Q72HR PRN PRN Reason: IF MOM INEFFECTIVE Stop: 10/02/17 14:13 Bisacodyl (Dulcolax 10 Mg Supp) 10 mg RC PRN PRN PRN Reason: IF MOM INEFFECTIVE Stop: 10/02/17 14:13 Chlorhexidine Gluconate (Peridex) 15 ml MM 0800,2000 [facility] Stop: 10/02/17 07:59 Last Admin: 08/04/17 08:00 Dose: 15 ml Cholecalciferol (Vitamin D3) 1,000 iu GT DAILY [facility] Stop: 10/03/17 08:59 Last Admin: 08/04/17 09:18 Dose: 1,000 iu Diltiazem HCl (Cardizem) 5 mg IVP Q4H PRN PRN Reason: INCREASE HEART RATE Stop: 10/01/17 21:59 Last Admin: 08/03/17 01:38 Dose: 5 mg Docusate Sodium (Colace) 100 mg PO DAILY [facility] Stop: 10/03/17 08:59 Last Admin: 08/04/17 09:18 Dose: 100 mg Heparin Sodium (Porcine) (Heparin) 5,000 units HD UD [facility] Stop: 08/05/17 08:59 Last Admin: 08/04/17 09:19 Dose: Not Given Fluconazole (Diflucan) 200 mg in 100 mls @ 100 mls/hr IV Q24HR [facility] Stop: 10/02/17 14:59 Last Infusion: 08/03/17 15:40 Dose: Infused Meropenem 500 mg/ Sodium (Chloride) 100 mls @ 100 mls/hr IV Q24H [facility] Stop: 10/02/17 12:59 Last Admin: 08/04/17 13:17 Dose: 100 mls/hr Dopamine HCl/Dextrose (Dopamine) 400 mg in 250 mls @ 0 mls/hr IV TITR PRN; Protocol; Per Protocol PRN Reason: BP MAINTENANCE (PER PROTOCOL) Stop: 10/02/17 07:47 Norepinephrine Bitartrate 4 mg (/ Dextrose) 254 mls @ 0 mls/hr IV TITR PRN; Protocol; Per Protocol PRN Reason: BP MAINTENANCE (PER PROTOCOL) Stop: 10/02/17 08:31 Last Admin: 08/03/17 23:47 Dose: 4 mcg/min, 15.24 mls/hr Colistimethate Sodium 80 mg/ (Sodium Chloride) 100 mls @ 100 mls/hr IV Q36H [facility] Stop: 10/02/17 20:59 Last Infusion: 08/03/17 21:20 Dose: Infused Insulin Aspart (Novolog Insulin Sliding Scale) 0 units SUBQ Q6HR [facility] PRN Reason: Protocol Stop: 10/02/17 00:00 Last Admin: 08/04/17 11:30 Dose: 6 units Lorazepam (Ativan) 1 mg IVP Q2HR PRN; Protocol PRN Reason: Restlessness Stop: 10/01/17 21:18 Last Admin: 08/04/17 01:05 Dose: 1 mg Magnesium Hydroxide (Milk Of Magnesia) 30 ml GT Q72H PRN PRN Reason: NO BM FOR THREE DAYS Stop: 10/02/17 14:13 Mirtazapine (Remeron) 15 mg GT HS [facility] PRN Reason: Protocol Stop: 10/02/17 20:59 Last Admin: 08/03/17 20:19 Dose: 15 mg Miscellaneous (Vancomycin Iv Per Pharmacy) 1 ea PRN PRN PRN Reason: PROTOCOL Stop: 10/01/17 20:42 Miscellaneous (Zosyn Iv Per Pharmacy) 1 ea PRN PRN PRN Reason: PROTOCOL Stop: 10/01/17 20:42 Multivitamins/Vitamin C (Theragran) 1 tab PO DAILY [facility] Stop: 10/03/17 08:59 Last Admin: 08/04/17 09:18 Dose: 1 tab Ondansetron HCl (Zofran Odt) 4 mg PO Q6HR PRN PRN Reason: Nausea / Vomiting Stop: 10/02/17 14:13 Pantoprazole Sodium (Protonix) 40 mg IVP DAILY [facility] Stop: 10/02/17 08:59 Last Admin: 08/04/17 09:18 Dose: 40 mg Simethicone (Mylicon) 80 mg GT Q6H PRN PRN Reason: GAS PAIN Stop: 10/02/17 14:13 Sodium Phosphate (Fleet Enema) 118 ml RC PRN PRN PRN Reason: IF MOM/DULCOLAX INEFFECTIVE Stop: 10/02/17 14:13 Temazepam (Restoril) 15 mg GT HS PRN; Protocol PRN Reason: Insomnia Stop: 10/02/17 14:13 Last Admin: 08/03/17 20:19 Dose: 15 mg Zinc Sulfate (Zinc Sulfate) 220 mg GT DAILY [facility] Stop: 10/03/17 08:59 Last Admin: 08/04/17 09:18 Dose: 220 Lab - Result Diagrams 08/23/17 06:45 08/23/17 06:45 currently being dialyzed CXR still showed persistent b/l effusions, CHF, left > right replace K f/u electrolytes. cbc Reccurence of shock, on levo 20 mcg, Amiodarone BS low, monitor closely, hold Levemir, continue S/S wbc stable 15.9 Nutritional Asmnt/Malnutr-PDOC - Dietary Evaluation Malnutrition Findings (Please click <Entered> for more info): Nutritional Asmnt/Malnutrition Start: 08/05/17 15: 53 Text: Status: Complete Freq: Document 08/05/17 15:53 HEIDY (Rec: 08/05/17 16:19 HEIDY [id number]) Nutritional Asmnt/Malnutrition Patient General Information Nutritional Screening High Risk Diagnosis sepsis, respiratory failure, ESRD Pertinent Medical Hx/Surgical Hx ESRD on HD, respiratory failure with tracheostomy, dysphagia, a fib, anemia, HTN, GERD Subjective Information Pt on vent, not able to interview. Pt was on TF Novosource Renal 30ml/hr continuous, NPO today for surgery. Pt has dialysis ordred per nurse note. Current Diet Order/ Nutrition Support NPO on 08/05 Pertinent Medications vit C, vit D3, colace, novolog , remeron, theragran, protonix , zinc Pertinent Labs 08/05 Na 134, K 3.6, Cl 102, BUN 77, Cr 4.2, Glucose 216, POC 224-233 08/02 A1c 7.7 Nutritional Hx/Data Height 1.6 m Height (Calculated Centimeters) 160.0 Current Weight (lbs) 87.543 kg Weight (Calculated Kilograms) 87.5 Weight (Calculated Grams) 50673.3 [place] Body Weight 115 Body Mass Index (BMI) 34.2 Weight Status Obese GI Symptoms GI Symptoms None Last BM 08/04 Difficult in: None Skin Integrity/Comment: reddened to left/right inner thigh, right lateral index finger, right/left arm; skin tear to left abdominal fold; pressure area to coccy/sacral Estimated Nutritional Goals BEE in Kcals: Adj wt of IBW Calories/Kcals/Kg 30-35 adj wt 61kg Kcals Calculated 5719-9915 Protein: Adj wt of IBW Protein g/k.2-1.4 Protein Calculated 73-85 Fluid: ml 1830-2135ml (1ml/kcal) Nutritional Problem 1. Problem Problem altered nutrition related lab values Etiology hx of ESRD, endocrine dysfunction Signs/Symptoms: BUN 77, Cr 4.2, Glucose 216, POC 224-233, A1c 7.7 Malnutrition Alert Protein-Calorie Malnutrition N/A Is there a minimum of two criteria No selected? Query Text:Check all the applicable criteria. A minimum of two criteria are recommended for diagnosis of either severe or non-severe malnutrition. Intervention/Recommendation Comments 1. Resume TF Novosource Renal 30ml/hr continuous as ordered. increase to goal rate of 40ml /hr continuous as tolerated. This will provide 1920kcal, 87g protein and 688ml free water, meeting 100% of nutritional needs 2. Monitor TF rate, tolerance, wt weekly, skin integrity and labs 3. F/U as high risk in 2-3 days, 08/07-08/08 Expected Outcomes/Goals Expected Outcomes/Goals 1. Pt to meet at least 75% of nutritional needs via nutrition support with tolerance 2. Wt stability, skin to remain intact, labs to approach WNL.
--- NOTE | 2017-08-23 15:10 | Progress Notes ---
DATE: 08/23/2017 SUBJECTIVE: The patient was seen in the room in Intensive Care Unit with ongoing hemodialysis. The patient is currently on a Levophed drip and chronic tracheostomy connected to ventilator. The patient appears to be in no acute distress. The patient is a poor historian due to medical condition. OBJECTIVE: VITAL SIGNS: Temperature 97.8, blood pressure 158/41, 100% on FIO2 ___ventilator, 118 heart rate, respiration of 20. HEENT: Head is atraumatic, normocephalic. Bilateral conjunctivae are clear. Bilateral pupils are equally round and reactive. NECK: Supple. No JVD. GENITOURINARY: The patient has tracheostomy connected to ventilator. PULMONARY: Fine scattered rhonchi noted. CARDIOVASCULAR: S1 and S2, without murmur, sinus tach on the monitor. GASTROINTESTINAL: Soft and nontender without guarding. Positive bowel sounds. The patient has a gastrostomy tube in place. MUSCULOSKELETAL: No clubbing. No cyanosis noted. The patient has generalized edema. ASSESSMENT: 1. Ventilator dependent respiratory failure. 2. End-stage renal disease, hemodialysis dependent. 3. Sepsis. 4. Pneumonia. 5. Diabetes. 6. Obesity. PLAN: We will continue current antibiotics. We will provide pulmonary support. We will put the patient on aspiration precaution. We will continue hemodialysis as scheduled. Treatment plans were discussed with the patient's nurse. Treatment plans were discussed with Dr. Barth. JOB# [id number]
[2017-08-23] MEDS: Insulin Detemir 100 units/mL 10mL Vial SUBQ SCH (21:00)
[2017-08-24] MEDS: INSULIN ASPART SLIDING SCALE 100 UNITS/ML UNIT SUBQ SCH ×4 (00:31→17:24)
[2017-08-24] MEDS: Albuterol/Ipratropium Neb 3 ML AERS HHN SCH ×6 (02:50→23:01)
[2017-08-24 07:52] LABS: MEAN CELL VOLUME 93.6 fl (81-100); MEAN CORPUSCULAR HEMOGLOBIN 43.7 pg (27.0-31.0); MEAN CORPUSCULAR HGB CONC 46.7 pg (28.0-36.0); MEAN PLATELET VOLUME 10.5 fl; PLATELET COUNT 275 Th/cmm (150-400); RED BLOOD COUNT 1.36 Mil/cmm (3.80-5.20); RED CELL DISTRIBUTION WIDTH 15.5 % (11.5-20.0)
[2017-08-24 07:53] LABS: WHITE BLOOD COUNT 13.6 Th/cmm (4.8-10.8)
[2017-08-24] MEDS: Chlorhexidine Gluconate 0.12% 15mL Mouthwash MM SCH ×2 (08:00→20:00)
[2017-08-24 08:02] LABS: HEMATOCRIT 12.8 % (41.0-60)
[2017-08-24 08:03] LABS: MANUAL DIFF REQUIRED? YES
[2017-08-24 08:04] LABS: ANION GAP 16.7 (7.0-16.0); BUN - UREA NITROGEN 49 mg/dL (7-25); CALCIUM SERUM 8.6 mg/dL (8.6-10.3); CARBON DIOXIDE 24.1 mEq/L (21.0-31.0); CHLORIDE 101 mEq/L (98-107); CREATININE - SERUM 2.4 mg/dL (0.6-1.2); GLUCOSE 177 mg/dL (70-105); MAGNESIUM 1.6 mg/dL (1.9-2.7); POTASSIUM SERUM 3.8 mEq/L (3.5-5.1); SODIUM SERUM 138 mEq/L (136-145)
[2017-08-24] MEDS: Aspirin 81mg Chewable Tab PO SCH (09:00)
[2017-08-24] MEDS: Multivitamin Tab PO SCH (09:00)
[2017-08-24] MEDS: Lactobacillus Rhamnosus GG 15 Billion CFU CAP.SPRINK PO SCH (09:00)
--- NOTE | 2017-08-24 09:04 | General Progress Note ---
Subjective - Review of Systems Events since last encounter: patent on vent in no acute distress Subjective: still on levophed Objective - Results Result Diagrams: 08/24/17 07:15 08/24/17 07:15 Recent Labs: Laboratory Last Values WBC 13.6 Th/cmm (4.8-10.8) H 08/24/17 07:15 RBC 1.36 Mil/cmm (3.80-5.20) L 08/24/17 07:15 Hgb 6.0 gm/dL (12-16) L* 08/24/17 07:15 Hct 12.8 % (41.0-60) L* 08/24/17 07:15 MCV 93.6 fl (81-100) 08/24/17 07:15 MCH 43.7 pg (27.0-31.0) H 08/24/17 07:15 MCHC Differential 46.7 pg (28.0-36.0) H 08/24/17 07:15 RDW 15.5 % (11.5-20.0) 08/24/17 07:15 Plt Count 275 Th/cmm (150-400) 08/24/17 07:15 MPV 10.5 fl 08/24/17 07:15 Neutrophils % CHILD AND ADOLESCENT THERAPIST 08/23/17 06:45 Band Neutrophils % 2 % (0-10) 08/21/17 07:30 Lymphocytes % CHILD AND ADOLESCENT THERAPIST 08/23/17 06:45 Monocytes % CHILD AND ADOLESCENT THERAPIST 08/23/17 06:45 Eosinophils % CHILD AND ADOLESCENT THERAPIST 08/23/17 06:45 Basophils % CHILD AND ADOLESCENT THERAPIST 08/23/17 06:45 Neutrophils (Manual) 84 % (40-80) H 08/23/17 06:45 Lymphocytes 3 % (20-50) L 08/23/17 06:45 Monocytes 8 % (2-10) 08/23/17 06:45 Eosinophils 5 % (0-5) 08/23/17 06:45 Basophils 2 % (0-3) 08/21/17 07:30 Hypochromia 1+ 08/02/17 15:37 Platelet Estimate ADEQUATE (NORMAL) 08/23/17 06:45 Platelet Morphology NORMAL (NORMAL) 08/20/17 04:45 Anisocytosis 1+ 08/07/17 05:45 Crenated Cell 2+ 08/02/17 15:37 RBC Morph Micro Appear ABNORMAL (NORMAL) 08/02/17 15:37 PT 12.9 SECONDS (9.5-11.5) H 08/02/17 13:58 INR 1.23 (0.5-1.4) 08/02/17 13:58 PTT (Actin FS) 33.6 SECONDS (26.0-38.0) 08/02/17 13:58 Specimen Source Arterial 08/03/17 08:58 Sample Site Right Radial 08/03/17 08:58 pH 7.42 (7.35-7.45) 08/03/17 08:58 pCO2 37.0 mmHg (35.0-45.0) 08/03/17 08:58 pO2 204.0 mmHg (80.0-100.0) H 08/03/17 08:58 HCO3 24.8 mEq/L (20.0-26.0) 08/03/17 08:58 Base Excess -0.2 mEq/L (-3.0-3.0) 08/03/17 08:58 O2 Saturation 100.0 % (92.0-100.0) 08/03/17 08:58 Rhett Test Positive 08/03/17 08:58 Vent Rate 12 08/03/17 08:58 Inspired O2 60 08/03/17 08:58 Tidal Volume 450 08/03/17 08:58 PEEP 5 08/03/17 08:58 Pressure (ins/psv/peep) NA 08/03/17 08:58 Critical Value LZHANG 08/03/17 08:58 Sodium 138 mEq/L (136-145) 08/24/17 07:15 Potassium 3.8 mEq/L (3.5-5.1) 08/24/17 07:15 Chloride 101 mEq/L (98-107) 08/24/17 07:15 Carbon Dioxide 24.1 mEq/L (21.0-31.0) 08/24/17 07:15 Anion Gap 16.7 (7.0-16.0) H 08/24/17 07:15 BUN 49 mg/dL (7-25) H 08/24/17 07:15 Creatinine 2.4 mg/dL (0.6-1.2) H 08/24/17 07:15 Est GFR ( Amer) TNP 08/24/17 07:15 Est GFR (Non-Af Amer) TNP 08/24/17 07:15 BUN/Creatinine Ratio 20.4 08/24/17 07:15 Glucose 177 mg/dL (70-105) H 08/24/17 07:15 POC Glucose 197 MG/DL (70 - 105) H 08/24/17 05:22 Hemoglobin A1c % 7.7 % (4.0-6.0) H 08/02/17 15:37 Whole Bld Lactic Acid 1.97 mmol/L (0.60-1.99) 08/02/17 13:49 Calcium 8.6 mg/dL (8.6-10.3) 08/24/17 07:15 Magnesium 1.6 mg/dL (1.9-2.7) L 08/24/17 07:15 Iron 10 ug/dL (27-139) L 08/02/17 13:56 TIBC 135 ug/dL (250-450) L 08/02/17 13:56 Iron Saturation 7 % (15-55) L 08/02/17 13:56 Unsaturated IBC 125 ug/dL (118-369) 08/02/17 13:56 Ferritin 588 ng/mL (15-150) H 08/02/17 13:56 Total Bilirubin 0.4 mg/dL (0.3-1.0) 08/19/17 04:58 Direct Bilirubin 0.09 mg/dL (0.0-0.2) 08/02/17 13:57 AST 37 U/L (13-39) 08/19/17 04:58 ALT 10 U/L (7-52) 08/19/17 04:58 Alkaline Phosphatase 72 U/L (34-104) 08/19/17 04:58 Troponin I 0.10 ng/mL (0.01-0.05) H* D 08/20/17 17:00 B-Natriuretic Peptide 839.0 pg/mL (5.0-100.0) H 08/19/17 04:58 Total Protein 7.5 gm/dL (6.0-8.3) 08/19/17 04:58 Albumin 2.8 gm/dL (3.7-5.3) L 08/19/17 04:58 Globulin 4.7 gm/dL 08/19/17 04:58 Albumin/Globulin Ratio 0.6 (1.0-1.8) L 08/19/17 04:58 Triglycerides 132 mg/dL (<150) 08/04/17 06:30 Cholesterol 55 mg/dL (<200) 08/04/17 06:30 LDL Cholesterol Direct 16 mg/dL (75-193) L 08/04/17 06:30 HDL Cholesterol 13 mg/dL (23-92) L 08/04/17 06:30 Amylase 12 U/L (29-103) L 08/02/17 13:43 Lipase 4 U/L (11-82) L 08/02/17 13:43 TSH 3.74 uIU/ml (0.34-5.60) 08/04/17 06:30 Stool Occult Blood POSITIVE (NEGATIVE) H 08/03/17 17:50 Random Vancomycin 14.8 ug/mL (5.0-40.0) 08/09/17 06:34 Hepatitis A IgM Ab Negative (Negative) 08/08/17 08:15 Hep Bs Antigen Negative (Negative) 08/08/17 08:15 Hep B Core IgM Ab Negative (Negative) 08/08/17 08:15 Hepatitis C Antibody <0.1 s/co ratio (0.0-0.9) 08/08/17 08:15 Blood Type A POSITIVE 08/15/17 07:50 Antibody Screen POSITIVE 08/15/17 07:50 Antibody Identification Anti-K 08/15/17 07:50 [place], IgG Interpret NEGATIVE 08/15/17 07:50 Crossmatch See Detail 08/15/17 07:50 - Physical Exam Vitals and I&O: Vital Signs Temp 98.2 F 08/24/17 04:00 Pulse 92 08/24/17 07:45 Resp 28 08/24/17 06:58 BP 135/22 08/24/17 07:45 Pulse Ox 100 08/24/17 07:04 Intake & Output 08/23/17 08/24/17 08/24/17 18:59 06:59 18:59 Intake Total 672.622 5802.34 58.05 Output Total 20 Balance 679.613 1664.34 58.05 Weight (lbs) 107.048 kg Intake: Intake, IV Amount 386.844 675.34 58.05 Levofloxacin 250mg/50mL 50 250 mg In 50 ml @ 50 mls/ hr IV Q48HR [facility] Rx#: [id number] Norepinephrine 8 mg In 236.844 575.34 58.05 Sodium Chloride 0.9% 250 ml @ 18 MCG/MIN 34.83 mls /hr IV TITR PRN Rx#: [id number] Piperacillin Sodium/ 100 100 Tazobact 2.25 gm In Sodium Chloride 0.9% 50 ml @ 100 mls/hr IV Q6HR [facility] Rx#:[id number] Tube Feeding 500 Other 100 Output: Urine 20 Other: # Bowel Movements 1 Stool Characteristics Soft Liquid Brown Green Active Medications: Current Medications Acetaminophen (Tylenol) 650 mg GT DAILY [facility] Stop: 10/20/17 08:59 Last Admin: 08/23/17 08:17 Dose: 650 mg Albuterol/Ipratropium (Duoneb Neb) 3 ml HHN Q4HRT [facility] Stop: 10/19/17 10:59 Last Admin: 08/24/17 07:04 Dose: 3 ml Amiodarone HCl (Cordarone) 200 mg GT Q12H [facility] Stop: 10/20/17 10:59 Last Admin: 08/23/17 23:00 Dose: Not Given Ascorbic Acid (Vitamin C) 500 mg PO DAILY [facility] Stop: 10/20/17 08:59 Last Admin: 08/23/17 08:17 Dose: 500 mg Aspirin (Aspirin Chewable) 81 mg PO DAILY [facility] Stop: 10/20/17 08:59 Last Admin: 08/23/17 08:17 Dose: 81 mg Atorvastatin Calcium (Lipitor) 40 mg GT DAILY [facility] PRN Reason: Protocol Stop: 10/20/17 08:59 Last Admin: 08/23/17 08:16 Dose: 40 mg Bisacodyl (Dulcolax 10 Mg Supp) 10 mg RC Q72HR PRN PRN Reason: if MOM ineffective Stop: 10/19/17 11:29 Chlorhexidine Gluconate (Peridex) 15 ml MM 0800,1999 [facility] Stop: 10/19/17 19:59 Last Admin: 08/23/17 20:30 Dose: 15 ml Cholecalciferol (Vitamin D3) 1,000 iu PO DAILY [facility] Stop: 10/20/17 08:59 Last Admin: 08/23/17 08:17 Dose: 1,000 iu Diltiazem HCl (Cardizem) 20 mg IV Q4HR PRN PRN Reason: HR ABOVE 120 Stop: 09/13/17 11:59 Docusate Sodium (Colace) 100 mg PO DAILY [facility] Stop: 10/20/17 08:59 Last Admin: 08/23/17 08:17 Dose: 100 mg Heparin Sodium (Porcine) (Heparin) 5,000 units SUBQ Q12HR [facility] Stop: 10/19/17 20:59 Last Admin: 08/23/17 20:27 Dose: 5,000 units Levofloxacin (Levaquin Pb) 250 mg in 50 mls @ 50 mls/hr IV Q48HR [facility] Stop: 10/18/17 08:59 Last Infusion: 08/23/17 09:40 Dose: Infused Dopamine HCl/Dextrose (Dopamine) 400 mg in 250 mls @ 0 mls/hr IV TITR PRN; Protocol; 0 MCG/KG/MIN PRN Reason: BP MAINTENANCE (PER PROTOCOL) Stop: 10/19/17 11:28 Piperacillin Sod/Tazobactam (Sod 2.25 gm/ Sodium Chloride) 50 mls @ 100 mls/hr IV Q6HR [facility] Stop: 10/19/17 11:59 Last Infusion: 08/24/17 06:30 Dose: Infused Norepinephrine Bitartrate 8 mg (/ Sodium Chloride) 258 mls @ 34.83 mls/hr IV TITR PRN; Protocol; 18 MCG/MIN PRN Reason: BP MAINTENANCE (PER PROTOCOL) Stop: 10/19/17 11:09 Last Titration: 08/24/17 07:30 Dose: 24 mcg/min, 46.44 mls/hr Insulin Aspart (Novolog Insulin Sliding Scale) 0 units SUBQ Q6HR [facility] PRN Reason: Protocol Stop: 10/19/17 11:59 Last Admin: 08/24/17 05:37 Dose: 2 units Insulin Detemir (Levemir Insulin) 16 units SUBQ HS [facility] PRN Reason: Protocol Stop: 10/19/17 20:59 Last Admin: 08/23/17 21:00 Dose: 16 units Lactobacillus Rhamnosus (Culturelle 15b) 1 each PO DAILY [facility] Stop: 10/20/17 08:59 Last Admin: 08/23/17 08:17 Dose: 1 each Lorazepam (Ativan) 2 mg IVP Q4HR PRN; Protocol PRN Reason: Agitation Stop: 10/15/17 11:49 Last Admin: 08/23/17 23:43 Dose: 2 mg Magnesium Hydroxide (Milk Of Magnesia) 30 ml PO Q72HR PRN PRN Reason: Constipation Stop: 10/19/17 11:44 Mirtazapine (Remeron) 15 mg GT HS [facility] PRN Reason: Protocol Stop: 10/19/17 20:59 Last Admin: 08/23/17 20:30 Dose: 15 mg Miscellaneous (Probiotic Screen) 1 ea MC PRN PRN PRN Reason: PROTOCOL Stop: 10/22/17 10:29 Multivitamins/Vitamin C (Theragran) 1 tab PO DAILY [facility] Stop: 10/20/17 08:59 Last Admin: 08/23/17 08:17 Dose: 1 tab Ondansetron HCl (Zofran) 4 mg IV Q6H PRN PRN Reason: Nausea / Vomiting Stop: 10/19/17 11:40 Pantoprazole Sodium (Protonix) 40 mg IVP DAILY [facility] Stop: 10/20/17 08:59 Last Admin: 08/23/17 08:16 Dose: 40 mg Simethicone (Mylicon) 80 mg GT Q6HR PRN PRN Reason: Gas Stop: 10/19/17 11:59 Sodium Phosphate (Fleet Enema) 135 ml RC PRN PRN PRN Reason: If MOM/Dulcolax ineffective Stop: 10/19/17 11:29 Zinc Sulfate (Zinc Sulfate) 220 mg PO DAILY [facility] Stop: 10/20/17 08:59 Last Admin: 08/23/17 08:17 Dose: 220 mg General: Alert, No acute distress (scattered rhonchi) HEENT: Atraumatic, PERRLA, EOMI, Mucous membr. moist/pink Neck: Supple, Other (TRACH) Cardiovascular: Regular rate Lungs: Other (coarse rhonchi) Abdomen: Bowel sounds, Soft, Other (INTACT GT) Extremities: Edema (upper wxtrmities), Other (upper ext) Neurological: Sensation intact Skin: no Rash Psych/Mental Status: Mood NL - Procedures Procedures: Procedures Procedure Code Date BLOOD TRANSFUSION SERVICE 40757 08/02/17 EXCISION OF STOMACH, ENDO, DIAGN [id number] 07/10/17 INSPECTION OF LOWER INTESTINAL TRACT, ENDO [id number] 07/10/17 PERFORMANCE OF URINARY FILTRATION, <6 HRS/DAY [id number] 07/10/17 RESPIRATORY VENTILATION, GREATER THAN 96 CONSECUTIVE HOURS [id number] 08/02/17 TRANSFUSE NONAUT RED BLOOD CELLS IN PERIPH VEIN, PERC 99149D8 08/02/17 Nutritional Asmnt/Malnutr-PDOC - Dietary Evaluation Malnutrition Findings (Please click <Entered> for more info): Nutritional Asmnt/Malnutrition Start: 08/05/17 15: 53 Text: Status: Complete Freq: Document 08/05/17 15:53 [facility] (Rec[facility] 08[facility]05[facility]17 16[facility] Nutritional Asmnt/Malnutrition Patient General Information Nutritional Screening High Risk Diagnosis sepsis, respiratory failure, ESRD Pertinent Medical Hx/Surgical Hx ESRD on HD, respiratory failure with tracheostomy, dysphagia, a fib, anemia, HTN, GERD Subjective Information Pt on vent, not able to interview. Pt was on TF Novosource Renal 30ml/hr continuous, NPO today for surgery. Pt has dialysis ordred per nurse note. Current Diet Order/ Nutrition Support NPO on 08/05 Pertinent Medications vit C, vit D3, colace, novolog , remeron, theragran, protonix , zinc Pertinent Labs 08/05 Na 134, K 3.6, Cl 102, BUN 77, Cr 4.2, Glucose 216, POC 224-233 08/02 A1c 7.7 Nutritional Hx/Data Height 1.6 m Height (Calculated Centimeters) 160.0 Current Weight (lbs) 87.543 kg Weight (Calculated Kilograms) 87.5 Weight (Calculated Grams) 35805.3 [place] Body Weight 115 Body Mass Index (BMI) 34.2 Weight Status Obese GI Symptoms GI Symptoms None Last BM 08/04 Difficult in: None Skin Integrity/Comment: reddened to left/right inner thigh, right lateral index finger, right/left arm; skin tear to left abdominal fold; pressure area to coccy/sacral Estimated Nutritional Goals BEE in Kcals: Adj wt of IBW Calories/Kcals/Kg 30-35 adj wt 61kg Kcals Calculated 4040-3469 Protein: Adj wt of IBW Protein g/k.2-1.4 Protein Calculated 73-85 Fluid: ml 1830-2135ml (1ml/kcal) Nutritional Problem 1. Problem Problem altered nutrition related lab values Etiology hx of ESRD, endocrine dysfunction Signs/Symptoms: BUN 77, Cr 4.2, Glucose 216, POC 224-233, A1c 7.7 Malnutrition Alert Protein-Calorie Malnutrition N/A Is there a minimum of two criteria No selected? Query Text:Check all the applicable criteria. A minimum of two criteria are recommended for diagnosis of either severe or non-severe malnutrition. Intervention/Recommendation Comments 1. Resume TF Novosource Renal 30ml/hr continuous as ordered. increase to goal rate of 40ml /hr continuous as tolerated. This will provide 1920kcal, 87g protein and 688ml free water, meeting 100% of nutritional needs 2. Monitor TF rate, tolerance, wt weekly, skin integrity and labs 3. F/U as high risk in 2-3 days, 08/07-3 Expected Outcomes/Goals Expected Outcomes/Goals 1. Pt to meet at least 75% of nutritional needs via nutrition support with tolerance 2. Wt stability, skin to remain intact, labs to approach WNL.
--- NOTE | 2017-08-24 09:29 | Diagnostic Imaging Report ---
Portable chest x-ray HISTORY: Shortness of breath Compared with prior exam of August 22, 2017, there is persistent cardiomegaly. Persistent bilateral pleural effusions (left greater than right). IMPRESSION: 1. No change in the cardiopulmonary status as noted above.
[2017-08-24 10:30] LABS: BAND NEUTROPHILE 1 % (0-10); EOSINOPHIL 6 % (0-5); LYMPHOCYTE 2 % (20-50); MONOCYTE 10 % (2-10); NEUTROPHILS 81 % (40-80); PLATELET ESTIMATE ADEQUATE (NORMAL); TOTAL CELLS COUNTED 100
--- NOTE | 2017-08-24 14:38 | General Progress Note ---
Subjective - Review of Systems Service Date: 08/24/17 Subjective: sleeping, on vent Objective - Results Result Diagrams: 08/24/17 07:15 08/24/17 07:15 Recent Labs: Laboratory Last Values WBC 13.6 Th/cmm (4.8-10.8) H 08/24/17 07:15 RBC 1.36 Mil/cmm (3.80-5.20) L 08/24/17 07:15 Hgb 6.0 gm/dL (12-16) L* 08/24/17 07:15 Hct 12.8 % (41.0-60) L* 08/24/17 07:15 MCV 93.6 fl (81-100) 08/24/17 07:15 MCH 43.7 pg (27.0-31.0) H 08/24/17 07:15 MCHC Differential 46.7 pg (28.0-36.0) H 08/24/17 07:15 RDW 15.5 % (11.5-20.0) 08/24/17 07:15 Plt Count 275 Th/cmm (150-400) 08/24/17 07:15 MPV 10.5 fl 08/24/17 07:15 Neutrophils % [employer] 08/23/17 06:45 Band Neutrophils % 1 % (0-10) 08/24/17 07:15 Lymphocytes % [employer] 08/23/17 06:45 Monocytes % CORD [employer]ILDER 08/23/17 06:45 Eosinophils % CORD [employer] BUILDER 08/23/17 06:45 Basophils % CORD [employer]ILDER 08/23/17 06:45 Neutrophils (Manual) 81 % (40-80) H 08/24/17 07:15 Lymphocytes 2 % (20-50) L 08/24/17 07:15 Monocytes 10 % (2-10) 08/24/17 07:15 Eosinophils 6 % (0-5) H 08/24/17 07:15 Basophils 2 % (0-3) 08/21/17 07:30 Hypochromia 1+ 08/02/17 15:37 Platelet Estimate ADEQUATE (NORMAL) 08/24/17 07:15 Platelet Morphology NORMAL (NORMAL) 08/20/17 04:45 Anisocytosis 1+ 08/07/17 05:45 Crenated Cell 2+ 08/02/17 15:37 RBC Morph Micro Appear ABNORMAL (NORMAL) 08/02/17 15:37 PT 12.9 SECONDS (9.5-11.5) H 08/02/17 13:58 INR 1.23 (0.5-1.4) 08/02/17 13:58 PTT (Actin FS) 33.6 SECONDS (26.0-38.0) 08/02/17 13:58 Specimen Source Arterial 08/03/17 08:58 Sample Site Right Radial 08/03/17 08:58 pH 7.42 (7.35-7.45) 08/03/17 08:58 pCO2 37.0 mmHg (35.0-45.0) 08/03/17 08:58 pO2 204.0 mmHg (80.0-100.0) H 08/03/17 08:58 HCO3 24.8 mEq/L (20.0-26.0) 08/03/17 08:58 Base Excess -0.2 mEq/L (-3.0-3.0) 08/03/17 08:58 O2 Saturation 100.0 % (92.0-100.0) 08/03/17 08:58 Rhett Test Positive 08/03/17 08:58 Vent Rate 12 08/03/17 08:58 Inspired O2 60 08/03/17 08:58 Tidal Volume 450 08/03/17 08:58 PEEP 5 08/03/17 08:58 Pressure (ins/psv/peep) NA 08/03/17 08:58 Critical Value LZHANG 08/03/17 08:58 Sodium 138 mEq/L (136-145) 08/24/17 07:15 Potassium 3.8 mEq/L (3.5-5.1) 08/24/17 07:15 Chloride 101 mEq/L (98-107) 08/24/17 07:15 Carbon Dioxide 24.1 mEq/L (21.0-31.0) 08/24/17 07:15 Anion Gap 16.7 (7.0-16.0) H 08/24/17 07:15 BUN 49 mg/dL (7-25) H 08/24/17 07:15 Creatinine 2.4 mg/dL (0.6-1.2) H 08/24/17 07:15 Est GFR ( Amer) TNP 08/24/17 07:15 Est GFR (Non-Af Amer) TNP 08/24/17 07:15 BUN/Creatinine Ratio 20.4 08/24/17 07:15 Glucose 177 mg/dL (70-105) H 08/24/17 07:15 POC Glucose 197 MG/DL (70 - 105) H 08/24/17 05:22 Hemoglobin A1c % 7.7 % (4.0-6.0) H 08/02/17 15:37 Whole Bld Lactic Acid 1.97 mmol/L (0.60-1.99) 08/02/17 13:49 Calcium 8.6 mg/dL (8.6-10.3) 08/24/17 07:15 Magnesium 1.6 mg/dL (1.9-2.7) L 08/24/17 07:15 Iron 10 ug/dL (27-139) L 08/02/17 13:56 TIBC 135 ug/dL (250-450) L 08/02/17 13:56 Iron Saturation 7 % (15-55) L 08/02/17 13:56 Unsaturated IBC 125 ug/dL (118-369) 08/02/17 13:56 Ferritin 588 ng/mL (15-150) H 08/02/17 13:56 Total Bilirubin 0.4 mg/dL (0.3-1.0) 08/19/17 04:58 Direct Bilirubin 0.09 mg/dL (0.0-0.2) 08/02/17 13:57 AST 37 U/L (13-39) 08/19/17 04:58 ALT 10 U/L (7-52) 08/19/17 04:58 Alkaline Phosphatase 72 U/L (34-104) 08/19/17 04:58 Troponin I 0.10 ng/mL (0.01-0.05) H* D 08/20/17 17:00 B-Natriuretic Peptide 839.0 pg/mL (5.0-100.0) H 08/19/17 04:58 Total Protein 7.5 gm/dL (6.0-8.3) 08/19/17 04:58 Albumin 2.8 gm/dL (3.7-5.3) L 08/19/17 04:58 Globulin 4.7 gm/dL 08/19/17 04:58 Albumin/Globulin Ratio 0.6 (1.0-1.8) L 08/19/17 04:58 Triglycerides 132 mg/dL (<150) 08/04/17 06:30 Cholesterol 55 mg/dL (<200) 08/04/17 06:30 LDL Cholesterol Direct 16 mg/dL (75-193) L 08/04/17 06:30 HDL Cholesterol 13 mg/dL (23-92) L 08/04/17 06:30 Amylase 12 U/L (29-103) L 08/02/17 13:43 Lipase 4 U/L (11-82) L 08/02/17 13:43 TSH 3.74 uIU/ml (0.34-5.60) 08/04/17 06:30 Stool Occult Blood POSITIVE (NEGATIVE) H 08/03/17 17:50 Random Vancomycin 14.8 ug/mL (5.0-40.0) 08/09/17 06:34 Hepatitis A IgM Ab Negative (Negative) 08/08/17 08:15 Hep Bs Antigen Negative (Negative) 08/08/17 08:15 Hep B Core IgM Ab Negative (Negative) 08/08/17 08:15 Hepatitis C Antibody <0.1 s/co ratio (0.0-0.9) 08/08/17 08:15 Blood Type A POSITIVE 08/24/17 08:30 Antibody Screen POSITIVE 08/24/17 08:30 Antibody Identification Anti-K 08/24/17 08:30 NEVIL[place], IgG Interpret NEGATIVE 08/15/17 07:50 Crossmatch See Detail 08/24/17 08:30 - Physical Exam Vitals and I&O: Vital Signs Temp 98.2 F 08/24/17 04:00 Pulse 97 08/24/17 13:02 Resp 16 08/24/17 11:00 BP 103/42 08/24/17 11:15 Pulse Ox 100 08/24/17 13:02 Intake & Output 08/23/17 08/24/17 08/24/17 18:59 06:59 18:59 Intake Total 991.852 1406.34 198.66 Output Total 20 Balance 943.113 6572.34 198.66 Weight (lbs) 107.048 kg Intake: Intake, IV Amount 386.844 675.34 198.66 Levofloxacin 250mg/50mL 50 250 mg In 50 ml @ 50 mls/ hr IV Q48HR [facility] Rx#: [id number] Norepinephrine 8 mg In 236.844 575.34 198.66 Sodium Chloride 0.9% 250 ml @ 18 MCG/MIN 34.83 mls /hr IV TITR PRN Rx#: [id number] Piperacillin Sodium/ 100 100 Tazobact 2.25 gm In Sodium Chloride 0.9% 50 ml @ 100 mls/hr IV Q6HR [facility] Rx#:[id number] Tube Feeding 500 Other 100 Output: Urine 20 Other: # Bowel Movements 1 Stool Characteristics Soft Liquid Brown Green Active Medications: Current Medications Acetaminophen (Tylenol) 650 mg GT DAILY [facility] Stop: 10/20/17 08:59 Last Admin: 08/24/17 09:48 Dose: 650 mg Albuterol/Ipratropium (Duoneb Neb) 3 ml HHN Q4HRT [facility] Stop: 10/19/17 10:59 Last Admin: 08/24/17 11:17 Dose: 3 ml Amiodarone HCl (Cordarone) 200 mg GT Q12H [facility] Stop: 10/20/17 10:59 Last Admin: 08/24/17 11:47 Dose: 200 mg Ascorbic Acid (Vitamin C) 500 mg PO DAILY [facility] Stop: 10/20/17 08:59 Last Admin: 08/24/17 09:39 Dose: 500 mg Aspirin (Aspirin Chewable) 81 mg PO DAILY [facility] Stop: 10/20/17 08:59 Last Admin: 08/24/17 09:40 Dose: 81 mg Atorvastatin Calcium (Lipitor) 40 mg GT DAILY [facility] PRN Reason: Protocol Stop: 10/20/17 08:59 Last Admin: 08/24/17 09:40 Dose: 40 mg Bisacodyl (Dulcolax 10 Mg Supp) 10 mg RC Q72HR PRN PRN Reason: if MOM ineffective Stop: 10/19/17 11:29 Chlorhexidine Gluconate (Peridex) 15 ml MM 0800,1999 [facility] Stop: 10/19/17 19:59 Last Admin: 08/24/17 09:43 Dose: 15 ml Cholecalciferol (Vitamin D3) 1,000 iu PO DAILY [facility] Stop: 10/20/17 08:59 Last Admin: 08/24/17 09:40 Dose: 1,000 iu Diltiazem HCl (Cardizem) 20 mg IV Q4HR PRN PRN Reason: HR ABOVE 120 Stop: 09/13/17 11:59 Docusate Sodium (Colace) 100 mg PO DAILY [facility] Stop: 10/20/17 08:59 Last Admin: 08/24/17 09:39 Dose: 100 mg Heparin Sodium (Porcine) (Heparin) 5,000 units SUBQ Q12HR [facility] Stop: 10/19/17 20:59 Last Admin: 08/24/17 11:37 Dose: Not Given Levofloxacin (Levaquin Pb) 250 mg in 50 mls @ 50 mls/hr IV Q48HR [facility] Stop: 10/18/17 08:59 Last Infusion: 08/23/17 09:40 Dose: Infused Dopamine HCl/Dextrose (Dopamine) 400 mg in 250 mls @ 0 mls/hr IV TITR PRN; Protocol; 0 MCG/KG/MIN PRN Reason: BP MAINTENANCE (PER PROTOCOL) Stop: 10/19/17 11:28 Piperacillin Sod/Tazobactam (Sod 2.25 gm/ Sodium Chloride) 50 mls @ 100 mls/hr IV Q6HR [facility] Stop: 10/19/17 11:59 Last Admin: 08/24/17 12:01 Dose: 100 mls/hr Norepinephrine Bitartrate 8 mg (/ Sodium Chloride) 258 mls @ 34.83 mls/hr IV TITR PRN; Protocol; 18 MCG/MIN PRN Reason: BP MAINTENANCE (PER PROTOCOL) Stop: 10/19/17 11:09 Last Admin: 08/24/17 10:46 Dose: 24 mcg/min, 46.44 mls/hr Insulin Aspart (Novolog Insulin Sliding Scale) 0 units SUBQ Q6HR [facility] PRN Reason: Protocol Stop: 10/19/17 11:59 Last Admin: 08/24/17 12:02 Dose: 4 units Insulin Detemir (Levemir Insulin) 16 units SUBQ HS [facility] PRN Reason: Protocol Stop: 10/19/17 20:59 Last Admin: 08/23/17 21:00 Dose: 16 units Lactobacillus Rhamnosus (Culturelle 15b) 1 each PO DAILY [facility] Stop: 10/20/17 08:59 Last Admin: 08/24/17 09:39 Dose: 1 each Lorazepam (Ativan) 2 mg IVP Q4HR PRN; Protocol PRN Reason: Agitation Stop: 10/15/17 11:49 Last Admin: 08/23/17 23:43 Dose: 2 mg Magnesium Hydroxide (Milk Of Magnesia) 30 ml PO Q72HR PRN PRN Reason: Constipation Stop: 10/19/17 11:44 Mirtazapine (Remeron) 15 mg GT HS [facility] PRN Reason: Protocol Stop: 10/19/17 20:59 Last Admin: 08/23/17 20:30 Dose: 15 mg Miscellaneous (Probiotic Screen) 1 ea MC PRN PRN PRN Reason: PROTOCOL Stop: 10/22/17 10:29 Multivitamins/Vitamin C (Theragran) 1 tab PO DAILY [facility] Stop: 10/20/17 08:59 Last Admin: 08/24/17 09:41 Dose: 1 tab Ondansetron HCl (Zofran) 4 mg IV Q6H PRN PRN Reason: Nausea / Vomiting Stop: 10/19/17 11:40 Pantoprazole Sodium (Protonix) 40 mg IVP DAILY [facility] Stop: 10/20/17 08:59 Last Admin: 08/24/17 09:38 Dose: 40 mg Simethicone (Mylicon) 80 mg GT Q6HR PRN PRN Reason: Gas Stop: 10/19/17 11:59 Sodium Phosphate (Fleet Enema) 135 ml RC PRN PRN PRN Reason: If MOM/Dulcolax ineffective Stop: 10/19/17 11:29 Zinc Sulfate (Zinc Sulfate) 220 mg PO DAILY [facility] Stop: 10/20/17 08:59 Last Admin: 08/24/17 09:40 Dose: 220 mg General: Alert, No acute distress (scattered rhonchi) HEENT: Atraumatic, PERRLA, EOMI, Mucous membr. moist/pink Neck: Supple, Other (TRACH) Cardiovascular: Regular rate Lungs: Other (coarse rhonchi) Abdomen: Bowel sounds, Soft, Other (INTACT GT) Extremities: Edema (upper wxtrmities), Other (upper ext) Neurological: Sensation intact Skin: no Rash Psych/Mental Status: Mood NL - Procedures Procedures: Procedures Procedure Code Date BLOOD TRANSFUSION SERVICE 73630 08/02/17 EXCISION OF STOMACH, ENDO, DIAGN [id number] 07/10/17 INSPECTION OF LOWER INTESTINAL TRACT, ENDO [id number] 07/10/17 PERFORMANCE OF URINARY FILTRATION, <6 HRS/DAY [id number] 07/10/17 RESPIRATORY VENTILATION, GREATER THAN 96 CONSECUTIVE HOURS [id number] 08/02/17 TRANSFUSE NONAUT RED BLOOD CELLS IN PERIPH VEIN, PERC 10539P5 08/02/17 Assessment/Plan - Assessment Assessment: 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/L UE Edema, Cellulitis Shock Sepsis RF on Vent Acute on Chronic Decomp CHF G (-) Septicemia A. fib to V. tach Severe acute anemia 2/2 LGI bleed - Plan Plan: Lab - Result Diagrams 08/04/17 06:30 08/04/17 06:30 Current Medications Acetaminophen (Tylenol 650mg/20.3ml Suspension) 650 mg GT DAILY [facility] Stop: 10/03/17 08:59 Last Admin: 08/04/17 09:18 Dose: 650 mg Albuterol/Ipratropium (Duoneb Neb) 3 ml HHN Q4HRT [facility] Stop: 10/02/17 10:59 Last Admin: 08/04/17 11:25 Dose: 3 ml Ascorbic Acid (Vitamin C) 500 mg PO DAILY [facility] Stop: 10/03/17 08:59 Last Admin: 08/04/17 09:18 Dose: 500 mg Aspirin (Aspirin Chewable) 81 mg GT DAILY [facility] Stop: 10/03/17 08:59 Last Admin: 08/04/17 09:18 Dose: 81 mg Atorvastatin Calcium (Lipitor) 40 mg GT HS [facility] PRN Reason: Protocol Stop: 10/02/17 20:59 Last Admin: 08/03/17 20:19 Dose: 40 mg Bisacodyl (Dulcolax 10 Mg Supp) 10 mg RC Q72HR PRN PRN Reason: IF MOM INEFFECTIVE Stop: 10/02/17 14:13 Bisacodyl (Dulcolax 10 Mg Supp) 10 mg RC PRN PRN PRN Reason: IF MOM INEFFECTIVE Stop: 10/02/17 14:13 Chlorhexidine Gluconate (Peridex) 15 ml MM 0800,2000 [facility] Stop: 10/02/17 07:59 Last Admin: 08/04/17 08:00 Dose: 15 ml Cholecalciferol (Vitamin D3) 1,000 iu GT DAILY [facility] Stop: 10/03/17 08:59 Last Admin: 08/04/17 09:18 Dose: 1,000 iu Diltiazem HCl (Cardizem) 5 mg IVP Q4H PRN PRN Reason: INCREASE HEART RATE Stop: 10/01/17 21:59 Last Admin: 08/03/17 01:38 Dose: 5 mg Docusate Sodium (Colace) 100 mg PO DAILY [facility] Stop: 10/03/17 08:59 Last Admin: 08/04/17 09:18 Dose: 100 mg Heparin Sodium (Porcine) (Heparin) 5,000 units HD UD [facility] Stop: 08/05/17 08:59 Last Admin: 08/04/17 09:19 Dose: Not Given Fluconazole (Diflucan) 200 mg in 100 mls @ 100 mls/hr IV Q24HR [facility] Stop: 10/02/17 14:59 Last Infusion: 08/03/17 15:40 Dose: Infused Meropenem 500 mg/ Sodium (Chloride) 100 mls @ 100 mls/hr IV Q24H [facility] Stop: 10/02/17 12:59 Last Admin: 08/04/17 13:17 Dose: 100 mls/hr Dopamine HCl/Dextrose (Dopamine) 400 mg in 250 mls @ 0 mls/hr IV TITR PRN; Protocol; Per Protocol PRN Reason: BP MAINTENANCE (PER PROTOCOL) Stop: 10/02/17 07:47 Norepinephrine Bitartrate 4 mg (/ Dextrose) 254 mls @ 0 mls/hr IV TITR PRN; Protocol; Per Protocol PRN Reason: BP MAINTENANCE (PER PROTOCOL) Stop: 10/02/17 08:31 Last Admin: 08/03/17 23:47 Dose: 4 mcg/min, 15.24 mls/hr Colistimethate Sodium 80 mg/ (Sodium Chloride) 100 mls @ 100 mls/hr IV Q36H [facility] Stop: 10/02/17 20:59 Last Infusion: 08/03/17 21:20 Dose: Infused Insulin Aspart (Novolog Insulin Sliding Scale) 0 units SUBQ Q6HR [facility] PRN Reason: Protocol Stop: 10/02/17 00:00 Last Admin: 08/04/17 11:30 Dose: 6 units Lorazepam (Ativan) 1 mg IVP Q2HR PRN; Protocol PRN Reason: Restlessness Stop: 10/01/17 21:18 Last Admin: 08/04/17 01:05 Dose: 1 mg Magnesium Hydroxide (Milk Of Magnesia) 30 ml GT Q72H PRN PRN Reason: NO BM FOR THREE DAYS Stop: 10/02/17 14:13 Mirtazapine (Remeron) 15 mg GT HS [facility] PRN Reason: Protocol Stop: 10/02/17 20:59 Last Admin: 08/03/17 20:19 Dose: 15 mg Miscellaneous (Vancomycin Iv Per Pharmacy) 1 ea MC PRN PRN PRN Reason: PROTOCOL Stop: 10/01/17 20:42 Miscellaneous (Zosyn Iv Per Pharmacy) 1 ea PRN PRN PRN Reason: PROTOCOL Stop: 10/01/17 20:42 Multivitamins/Vitamin C (Theragran) 1 tab PO DAILY [facility] Stop: 10/03/17 08:59 Last Admin: 08/04/17 09:18 Dose: 1 tab Ondansetron HCl (Zofran Odt) 4 mg PO Q6HR PRN PRN Reason: Nausea / Vomiting Stop: 10/02/17 14:13 Pantoprazole Sodium (Protonix) 40 mg IVP DAILY [facility] Stop: 10/02/17 08:59 Last Admin: 08/04/17 09:18 Dose: 40 mg Simethicone (Mylicon) 80 mg GT Q6H PRN PRN Reason: GAS PAIN Stop: 10/02/17 14:13 Sodium Phosphate (Fleet Enema) 118 ml RC PRN PRN PRN Reason: IF MOM/DULCOLAX INEFFECTIVE Stop: 10/02/17 14:13 Temazepam (Restoril) 15 mg GT HS PRN; Protocol PRN Reason: Insomnia Stop: 10/02/17 14:13 Last Admin: 08/03/17 20:19 Dose: 15 mg Zinc Sulfate (Zinc Sulfate) 220 mg GT DAILY [facility] Stop: 10/03/17 08:59 Last Admin: 08/04/17 09:18 Dose: 220 Lab - Result Diagrams 08/24/17 07:15 08/24/17 07:15 pt. dialyzed yesterday & tolerated it well CXR still showed persistent b/l effusions, CHF, left > right replace K f/u electrolytes. cbc Reccurence of shock, on levo 23 mcg, Amiodarone BS low, monitor closely, hold Levemir, continue S/S wbc stable @ 13.6 reschedule for HD in am due to persistent CHF Nutritional Asmnt/Malnutr-PDOC - Dietary Evaluation Malnutrition Findings (Please click <Entered> for more info): Nutritional Asmnt/Malnutrition Start: 08/05/17 15: 53 Text: Status: Complete Freq: Document 08/05/17 15:53 JOHANNAMAX (Rec: 08/05/17 16:19 JOHANNAMAX [id number]) Nutritional Asmnt/Malnutrition Patient General Information Nutritional Screening High Risk Diagnosis sepsis, respiratory failure, ESRD Pertinent Medical Hx/Surgical Hx ESRD on HD, respiratory failure with tracheostomy, dysphagia, a fib, anemia, HTN, GERD Subjective Information Pt on vent, not able to interview. Pt was on TF Novosource Renal 30ml/hr continuous, NPO today for surgery. Pt has dialysis ordred per nurse note. Current Diet Order/ Nutrition Support NPO on 08/05 Pertinent Medications vit C, vit D3, colace, novolog , remeron, theragran, protonix , zinc Pertinent Labs 08/05 Na 134, K 3.6, Cl 102, BUN 77, Cr 4.2, Glucose 216, POC 224-233 08/02 A1c 7.7 Nutritional Hx/Data Height 1.6 m Height (Calculated Centimeters) 160.0 Current Weight (lbs) 87.543 kg Weight (Calculated Kilograms) 87.5 Weight (Calculated Grams) 68107.3 [place] Body Weight 115 Body Mass Index (BMI) 34.2 Weight Status Obese GI Symptoms GI Symptoms None Last BM 08/04 Difficult in: None Skin Integrity/Comment: reddened to left/right inner thigh, right lateral index finger, right/left arm; skin tear to left abdominal fold; pressure area to coccy/sacral Estimated Nutritional Goals BEE in Kcals: Adj wt of IBW Calories/Kcals/Kg 30-35 adj wt 61kg Kcals Calculated 0196-0308 Protein: Adj wt of IBW Protein g/k.2-1.4 Protein Calculated 73-85 Fluid: ml 1830-2135ml (1ml/kcal) Nutritional Problem 1. Problem Problem altered nutrition related lab values Etiology hx of ESRD, endocrine dysfunction Signs/Symptoms: BUN 77, Cr 4.2, Glucose 216, POC 224-233, A1c 7.7 Malnutrition Alert Protein-Calorie Malnutrition N/A Is there a minimum of two criteria No selected? Query Text:Check all the applicable criteria. A minimum of two criteria are recommended for diagnosis of either severe or non-severe malnutrition. Intervention/Recommendation Comments 1. Resume TF Novosource Renal 30ml/hr continuous as ordered. increase to goal rate of 40ml /hr continuous as tolerated. This will provide 1920kcal, 87g protein and 688ml free water, meeting 100% of nutritional needs 2. Monitor TF rate, tolerance, wt weekly, skin integrity and labs 3. F/U as high risk in 2-3 days, 08/07-08/08 Expected Outcomes/Goals Expected Outcomes/Goals 1. Pt to meet at least 75% of nutritional needs via nutrition support with tolerance 2. Wt stability, skin to remain intact, labs to approach WNL.
--- NOTE | 2017-08-24 15:01 | Infectious Disease Prog Note ---
Infectious Disease Subjective - Review of Systems Service Date: 08/24/17 Events since last encounter: Patient became more hypotensive. Patient requiring higher doses of Levophed now on 25 mcg/min. Subjective: no fever. on levophed. Infectious Disease Objective - Results Result Diagrams: 08/24/17 07:15 08/24/17 07:15 Recent Labs: Laboratory Last Values WBC 13.6 Th/cmm (4.8-10.8) H 08/24/17 07:15 RBC 1.36 Mil/cmm (3.80-5.20) L 08/24/17 07:15 Hgb 6.0 gm/dL (12-16) L* 08/24/17 07:15 Hct 12.8 % (41.0-60) L* 08/24/17 07:15 MCV 93.6 fl (81-100) 08/24/17 07:15 MCH 43.7 pg (27.0-31.0) H 08/24/17 07:15 MCHC Differential 46.7 pg (28.0-36.0) H 08/24/17 07:15 RDW 15.5 % (11.5-20.0) 08/24/17 07:15 Plt Count 275 Th/cmm (150-400) 08/24/17 07:15 MPV 10.5 fl 08/24/17 07:15 Neutrophils % LIP OF SHANK CUTTER 08/23/17 06:45 Band Neutrophils % 1 % (0-10) 08/24/17 07:15 Lymphocytes % LIP OF SHANK CUTTER 08/23/17 06:45 Monocytes % LIP OF SHANK CUTTER 08/23/17 06:45 Eosinophils % LIP OF SHANK CUTTER 08/23/17 06:45 Basophils % LIP OF SHANK CUTTER 08/23/17 06:45 Neutrophils (Manual) 81 % (40-80) H 08/24/17 07:15 Lymphocytes 2 % (20-50) L 08/24/17 07:15 Monocytes 10 % (2-10) 08/24/17 07:15 Eosinophils 6 % (0-5) H 08/24/17 07:15 Basophils 2 % (0-3) 08/21/17 07:30 Hypochromia 1+ 08/02/17 15:37 Platelet Estimate ADEQUATE (NORMAL) 08/24/17 07:15 Platelet Morphology NORMAL (NORMAL) 08/20/17 04:45 Anisocytosis 1+ 08/07/17 05:45 Crenated Cell 2+ 08/02/17 15:37 RBC Morph Micro Appear ABNORMAL (NORMAL) 08/02/17 15:37 PT 12.9 SECONDS (9.5-11.5) H 08/02/17 13:58 INR 1.23 (0.5-1.4) 08/02/17 13:58 PTT (Actin FS) 33.6 SECONDS (26.0-38.0) 08/02/17 13:58 Specimen Source Arterial 08/03/17 08:58 Sample Site Right Radial 08/03/17 08:58 pH 7.42 (7.35-7.45) 08/03/17 08:58 pCO2 37.0 mmHg (35.0-45.0) 08/03/17 08:58 pO2 204.0 mmHg (80.0-100.0) H 08/03/17 08:58 HCO3 24.8 mEq/L (20.0-26.0) 08/03/17 08:58 Base Excess -0.2 mEq/L (-3.0-3.0) 08/03/17 08:58 O2 Saturation 100.0 % (92.0-100.0) 08/03/17 08:58 Rhett Test Positive 08/03/17 08:58 Vent Rate 12 08/03/17 08:58 Inspired O2 60 08/03/17 08:58 Tidal Volume 450 08/03/17 08:58 PEEP 5 08/03/17 08:58 Pressure (ins/psv/peep) NA 08/03/17 08:58 Critical Value LZHANG 08/03/17 08:58 Sodium 138 mEq/L (136-145) 08/24/17 07:15 Potassium 3.8 mEq/L (3.5-5.1) 08/24/17 07:15 Chloride 101 mEq/L (98-107) 08/24/17 07:15 Carbon Dioxide 24.1 mEq/L (21.0-31.0) 08/24/17 07:15 Anion Gap 16.7 (7.0-16.0) H 08/24/17 07:15 BUN 49 mg/dL (7-25) H 08/24/17 07:15 Creatinine 2.4 mg/dL (0.6-1.2) H 08/24/17 07:15 Est GFR ( Amer) TNP 08/24/17 07:15 Est GFR (Non-Af Amer) TNP 08/24/17 07:15 BUN/Creatinine Ratio 20.4 08/24/17 07:15 Glucose 177 mg/dL (70-105) H 08/24/17 07:15 POC Glucose 197 MG/DL (70 - 105) H 08/24/17 05:22 Hemoglobin A1c % 7.7 % (4.0-6.0) H 08/02/17 15:37 Whole Bld Lactic Acid 1.97 mmol/L (0.60-1.99) 08/02/17 13:49 Calcium 8.6 mg/dL (8.6-10.3) 08/24/17 07:15 Magnesium 1.6 mg/dL (1.9-2.7) L 08/24/17 07:15 Iron 10 ug/dL (27-139) L 08/02/17 13:56 TIBC 135 ug/dL (250-450) L 08/02/17 13:56 Iron Saturation 7 % (15-55) L 08/02/17 13:56 Unsaturated IBC 125 ug/dL (118-369) 08/02/17 13:56 Ferritin 588 ng/mL (15-150) H 08/02/17 13:56 Total Bilirubin 0.4 mg/dL (0.3-1.0) 08/19/17 04:58 Direct Bilirubin 0.09 mg/dL (0.0-0.2) 08/02/17 13:57 AST 37 U/L (13-39) 08/19/17 04:58 ALT 10 U/L (7-52) 08/19/17 04:58 Alkaline Phosphatase 72 U/L (34-104) 08/19/17 04:58 Troponin I 0.10 ng/mL (0.01-0.05) H* D 08/20/17 17:00 B-Natriuretic Peptide 839.0 pg/mL (5.0-100.0) H 08/19/17 04:58 Total Protein 7.5 gm/dL (6.0-8.3) 08/19/17 04:58 Albumin 2.8 gm/dL (3.7-5.3) L 08/19/17 04:58 Globulin 4.7 gm/dL 08/19/17 04:58 Albumin/Globulin Ratio 0.6 (1.0-1.8) L 08/19/17 04:58 Triglycerides 132 mg/dL (<150) 08/04/17 06:30 Cholesterol 55 mg/dL (<200) 08/04/17 06:30 LDL Cholesterol Direct 16 mg/dL (75-193) L 08/04/17 06:30 HDL Cholesterol 13 mg/dL (23-92) L 08/04/17 06:30 Amylase 12 U/L (29-103) L 08/02/17 13:43 Lipase 4 U/L (11-82) L 08/02/17 13:43 TSH 3.74 uIU/ml (0.34-5.60) 08/04/17 06:30 Stool Occult Blood POSITIVE (NEGATIVE) H 08/03/17 17:50 Random Vancomycin 14.8 ug/mL (5.0-40.0) 08/09/17 06:34 Hepatitis A IgM Ab Negative (Negative) 08/08/17 08:15 Hep Bs Antigen Negative (Negative) 08/08/17 08:15 Hep B Core IgM Ab Negative (Negative) 08/08/17 08:15 Hepatitis C Antibody <0.1 s/co ratio (0.0-0.9) 08/08/17 08:15 Blood Type A POSITIVE 08/24/17 08:30 Antibody Screen POSITIVE 08/24/17 08:30 Antibody Identification Anti-K 08/24/17 08:30 NEVIL[place], IgG Interpret NEGATIVE 08/15/17 07:50 Crossmatch See Detail 08/24/17 08:30 - Physical Exam Vitals and I&O: Vital Signs Temp 98.2 F 08/24/17 04:00 Pulse 97 08/24/17 13:02 Resp 16 08/24/17 11:00 BP 103/42 08/24/17 11:15 Pulse Ox 100 08/24/17 13:02 Intake & Output 08/23/17 08/24/17 08/24/17 18:59 06:59 18:59 Intake Total 112.799 2290.34 198.66 Output Total 20 Balance 105.140 9168.34 198.66 Weight (lbs) 107.048 kg Intake: Intake, IV Amount 386.844 675.34 198.66 Levofloxacin 250mg/50mL 50 250 mg In 50 ml @ 50 mls/ hr IV Q48HR [facility] Rx#: [id number] Norepinephrine 8 mg In 236.844 575.34 198.66 Sodium Chloride 0.9% 250 ml @ 18 MCG/MIN 34.83 mls /hr IV TITR PRN Rx#: [id number] Piperacillin Sodium/ 100 100 Tazobact 2.25 gm In Sodium Chloride 0.9% 50 ml @ 100 mls/hr IV Q6HR [facility] Rx#:[id number] Tube Feeding 500 Other 100 Output: Urine 20 Other: # Bowel Movements 1 Stool Characteristics Soft Liquid Brown Green Active Medications: Current Medications Acetaminophen (Tylenol) 650 mg GT DAILY [facility] Stop: 10/20/17 08:59 Last Admin: 08/24/17 09:48 Dose: 650 mg Albuterol/Ipratropium (Duoneb Neb) 3 ml HHN Q4HRT [facility] Stop: 10/19/17 10:59 Last Admin: 08/24/17 11:17 Dose: 3 ml Amiodarone HCl (Cordarone) 200 mg GT Q12H [facility] Stop: 10/20/17 10:59 Last Admin: 08/24/17 11:47 Dose: 200 mg Ascorbic Acid (Vitamin C) 500 mg PO DAILY [facility] Stop: 10/20/17 08:59 Last Admin: 08/24/17 09:39 Dose: 500 mg Aspirin (Aspirin Chewable) 81 mg PO DAILY [facility] Stop: 10/20/17 08:59 Last Admin: 08/24/17 09:40 Dose: 81 mg Atorvastatin Calcium (Lipitor) 40 mg GT DAILY [facility] PRN Reason: Protocol Stop: 10/20/17 08:59 Last Admin: 08/24/17 09:40 Dose: 40 mg Bisacodyl (Dulcolax 10 Mg Supp) 10 mg RC Q72HR PRN PRN Reason: if MOM ineffective Stop: 10/19/17 11:29 Chlorhexidine Gluconate (Peridex) 15 ml MM 0800,2000 [facility] Stop: 10/19/17 19:59 Last Admin: 08/24/17 09:43 Dose: 15 ml Cholecalciferol (Vitamin D3) 1,000 iu PO DAILY [facility] Stop: 10/20/17 08:59 Last Admin: 08/24/17 09:40 Dose: 1,000 iu Diltiazem HCl (Cardizem) 20 mg IV Q4HR PRN PRN Reason: HR ABOVE 120 Stop: 09/13/17 11:59 Docusate Sodium (Colace) 100 mg PO DAILY [facility] Stop: 10/20/17 08:59 Last Admin: 08/24/17 09:39 Dose: 100 mg Heparin Sodium (Porcine) (Heparin) 5,000 units SUBQ Q12HR [facility] Stop: 10/19/17 20:59 Last Admin: 08/24/17 11:37 Dose: Not Given Levofloxacin (Levaquin Pb) 250 mg in 50 mls @ 50 mls/hr IV Q48HR [facility] Stop: 10/18/17 08:59 Last Infusion: 08/23/17 09:40 Dose: Infused Dopamine HCl/Dextrose (Dopamine) 400 mg in 250 mls @ 0 mls/hr IV TITR PRN; Protocol; 0 MCG/KG/MIN PRN Reason: BP MAINTENANCE (PER PROTOCOL) Stop: 10/19/17 11:28 Piperacillin Sod/Tazobactam (Sod 2.25 gm/ Sodium Chloride) 50 mls @ 100 mls/hr IV Q6HR [facility] Stop: 10/19/17 11:59 Last Admin: 08/24/17 12:01 Dose: 100 mls/hr Norepinephrine Bitartrate 8 mg (/ Sodium Chloride) 258 mls @ 34.83 mls/hr IV TITR PRN; Protocol; 18 MCG/MIN PRN Reason: BP MAINTENANCE (PER PROTOCOL) Stop: 10/19/17 11:09 Last Admin: 08/24/17 10:46 Dose: 24 mcg/min, 46.44 mls/hr Insulin Aspart (Novolog Insulin Sliding Scale) 0 units SUBQ Q6HR [facility] PRN Reason: Protocol Stop: 10/19/17 11:59 Last Admin: 08/24/17 12:02 Dose: 4 units Insulin Detemir (Levemir Insulin) 16 units SUBQ HS [facility] PRN Reason: Protocol Stop: 10/19/17 20:59 Last Admin: 08/23/17 21:00 Dose: 16 units Lactobacillus Rhamnosus (Culturelle 15b) 1 each PO DAILY [facility] Stop: 10/20/17 08:59 Last Admin: 08/24/17 09:39 Dose: 1 each Lorazepam (Ativan) 2 mg IVP Q4HR PRN; Protocol PRN Reason: Agitation Stop: 10/15/17 11:49 Last Admin: 08/23/17 23:43 Dose: 2 mg Magnesium Hydroxide (Milk Of Magnesia) 30 ml PO Q72HR PRN PRN Reason: Constipation Stop: 10/19/17 11:44 Mirtazapine (Remeron) 15 mg GT HS [facility] PRN Reason: Protocol Stop: 10/19/17 20:59 Last Admin: 08/23/17 20:30 Dose: 15 mg Miscellaneous (Probiotic Screen) 1 ea MC PRN PRN PRN Reason: PROTOCOL Stop: 10/22/17 10:29 Multivitamins/Vitamin C (Theragran) 1 tab PO DAILY [facility] Stop: 10/20/17 08:59 Last Admin: 08/24/17 09:41 Dose: 1 tab Ondansetron HCl (Zofran) 4 mg IV Q6H PRN PRN Reason: Nausea / Vomiting Stop: 10/19/17 11:40 Pantoprazole Sodium (Protonix) 40 mg IVP DAILY [facility] Stop: 10/20/17 08:59 Last Admin: 08/24/17 09:38 Dose: 40 mg Simethicone (Mylicon) 80 mg GT Q6HR PRN PRN Reason: Gas Stop: 10/19/17 11:59 Sodium Phosphate (Fleet Enema) 135 ml RC PRN PRN PRN Reason: If MOM/Dulcolax ineffective Stop: 10/19/17 11:29 Zinc Sulfate (Zinc Sulfate) 220 mg PO DAILY [facility] Stop: 10/20/17 08:59 Last Admin: 08/24/17 09:40 Dose: 220 mg General: no acute distress, well developed, well nourished, cachectic HEENT: atraumatic, normocephalic, PERRLA, EOMI Neck: supple, no thyromegaly Cardiovascular: S1S2, regular Lungs: clear to auscultation bilaterally, clear to percussion, crackles Abdomen: soft, distended, no tender Extremities: no cyanosis, no clubbing, no edema Neurological: awake, alert, oriented Skin: intact - Procedures Procedures: Procedures Procedure Code Date BLOOD TRANSFUSION SERVICE 33703 08/02/17 EXCISION OF STOMACH, ENDO, DIAGN [id number] 07/10/17 INSPECTION OF LOWER INTESTINAL TRACT, ENDO [id number] 07/10/17 PERFORMANCE OF URINARY FILTRATION, <6 HRS/DAY [id number] 07/10/17 RESPIRATORY VENTILATION, GREATER THAN 96 CONSECUTIVE HOURS [id number] 08/02/17 TRANSFUSE NONAUT RED BLOOD CELLS IN PERIPH VEIN, PERC 15438B5 08/02/17 Infectious Disease Assmt/Plan - Assessment Assessment: 1. Septic shock. versus cardiogenic shock. 2. Gram-negative negative bacteremia treated 3. Pneumonia. 4. 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 5. Diabetes mellitus type 2. 6. Obesity. 7. Hypotension on levophed. - Plan Plan: Continue levaquin. We'll add vancomycin IV and Zosyn. Give 25% 100 mL albumin. Patient Is poor prognosis. Nutritional Asmnt/Malnutr-PDOC - Dietary Evaluation Malnutrition Findings (Please click <Entered> for more info): Nutritional Asmnt/Malnutrition Start: 08/05/17 15: 53 Text: Status: Complete Freq: Document 08/05/17 15:53 HEN (Rec: 08/05/17 16:19 HEN [id number]) Nutritional Asmnt/Malnutrition Patient General Information Nutritional Screening High Risk Diagnosis sepsis, respiratory failure, ESRD Pertinent Medical Hx/Surgical Hx ESRD on HD, respiratory failure with tracheostomy, dysphagia, a fib, anemia, HTN, GERD Subjective Information Pt on vent, not able to interview. Pt was on TF Novosource Renal 30ml/hr continuous, NPO today for surgery. Pt has dialysis ordred per nurse note. Current Diet Order/ Nutrition Support NPO on 08/05 Pertinent Medications vit C, vit D3, colace, novolog , remeron, theragran, protonix , zinc Pertinent Labs 08/05 Na 134, K 3.6, Cl 102, BUN 77, Cr 4.2, Glucose 216, POC 224-233 08/02 A1c 7.7 Nutritional Hx/Data Height 1.6 m Height (Calculated Centimeters) 160.0 Current Weight (lbs) 87.543 kg Weight (Calculated Kilograms) 87.5 Weight (Calculated Grams) 86374.3 [place] Body Weight 115 Body Mass Index (BMI) 34.2 Weight Status Obese GI Symptoms GI Symptoms None Last BM 08/04 Difficult in: None Skin Integrity/Comment: reddened to left/right inner thigh, right lateral index finger, right/left arm; skin tear to left abdominal fold; pressure area to coccy/sacral Estimated Nutritional Goals BEE in Kcals: Adj wt of IBW Calories/Kcals/Kg 30-35 adj wt 61kg Kcals Calculated 1057-5342 Protein: Adj wt of IBW Protein g/k.2-1.4 Protein Calculated 73-85 Fluid: ml 1830-2135ml (1ml/kcal) Nutritional Problem 1. Problem Problem altered nutrition related lab values Etiology hx of ESRD, endocrine dysfunction Signs/Symptoms: BUN 77, Cr 4.2, Glucose 216, POC 224-233, A1c 7.7 Malnutrition Alert Protein-Calorie Malnutrition N/A Is there a minimum of two criteria No selected? Query Text:Check all the applicable criteria. A minimum of two criteria are recommended for diagnosis of either severe or non-severe malnutrition. Intervention/Recommendation Comments 1. Resume TF Novosource Renal 30ml/hr continuous as ordered. increase to goal rate of 40ml /hr continuous as tolerated. This will provide 1920kcal, 87g protein and 688ml free water, meeting 100% of nutritional needs 2. Monitor TF rate, tolerance, wt weekly, skin integrity and labs 3. F/U as high risk in 2-3 days, 08/07-3/ Expected Outcomes/Goals Expected Outcomes/Goals 1. Pt to meet at least 75% of nutritional needs via nutrition support with tolerance 2. Wt stability, skin to remain intact, labs to approach WNL.
[2017-08-24] MEDS ORDERED: Albumin 25% 12.5gm/50mL 12.5 GM/50 ML BTL IV ONE (16:44)
[2017-08-24] MEDS ORDERED: Albumin 25% 25gm/100mL 25 GM/100 ML BTL IV ONE (16:45)
[2017-08-24] MEDS: Vancomycin HCl 1.5 GM in Sodium Chloride 0.9% 500 ML IV ONE ×2 (18:40→20:50)
[2017-08-24] MEDS: Insulin Detemir 100 units/mL 10mL Vial SUBQ SCH (20:51)
[2017-08-25] MEDS: INSULIN ASPART SLIDING SCALE 100 UNITS/ML UNIT SUBQ SCH ×4 (00:10→17:35)
[2017-08-25] MEDS: Albuterol/Ipratropium Neb 3 ML AERS HHN SCH ×6 (03:39→23:33)
[2017-08-25 07:40] LABS: % EOSINOPHILS 4.4 % (0.0-5.0); % LYMPHOCYTES 5.6 % (20.0-50.0); % MONOCYTES 10.4 % (2.0-10.0); % NEUTROPHILS 79.6 % (40.0-80.0); EOSINOPHILE ABSOLUTE 0.8 Th/cmm (0.1-0.4); MEAN CELL VOLUME 91.5 fl (81-100); MEAN CORPUSCULAR HEMOGLOBIN 39.3 pg (27.0-31.0); MEAN CORPUSCULAR HGB CONC 42.9 pg (28.0-36.0); MEAN PLATELET VOLUME 10.6 fl; MONOCYTE ABSOLUTE 1.8 Th/cmm (0.3-1.0); PLATELET COUNT 189 Th/cmm (150-400); RED BLOOD COUNT 1.55 Mil/cmm (3.80-5.20); RED CELL DISTRIBUTION WIDTH 15.2 % (11.5-20.0)
[2017-08-25 07:46] LABS: HEMOGLOBIN 6.1 gm/dL (12-16); WHITE BLOOD COUNT 17.6 Th/cmm (4.8-10.8)
[2017-08-25 07:47] LABS: HEMATOCRIT 14.2 % (41.0-60)
[2017-08-25 08:00] LABS: ANION GAP 18.5 (7.0-16.0); BUN - UREA NITROGEN 60 mg/dL (7-25); CALCIUM SERUM 8.6 mg/dL (8.6-10.3); CARBON DIOXIDE 21.8 mEq/L (21.0-31.0); CHLORIDE 102 mEq/L (98-107); CREATININE - SERUM 2.7 mg/dL (0.6-1.2); GLUCOSE 212 mg/dL (70-105); POTASSIUM SERUM 4.3 mEq/L (3.5-5.1); SODIUM SERUM 138 mEq/L (136-145)
[2017-08-25] MEDS: Levofloxacin 250mg/50mL 250 MG/50 ML BAG IV SCH (08:20)
[2017-08-25] MEDS: Chlorhexidine Gluconate 0.12% 15mL Mouthwash MM SCH ×2 (08:35→21:09)
[2017-08-25] MEDS: Lactobacillus Rhamnosus GG 15 Billion CFU CAP.SPRINK PO SCH (09:19)
[2017-08-25] MEDS: Multivitamin Tab PO SCH (09:19)
[2017-08-25] MEDS: Aspirin 81mg Chewable Tab PO SCH (09:19)
[2017-08-25] MEDS ORDERED: Vancomycin HCl 1.5 GM in Sodium Chloride 0.9% 500 ML IV ONE (10:00)
--- NOTE | 2017-08-25 11:20 | General Progress Note ---
Subjective - Review of Systems Events since last encounter: on levophen in no acute distress Subjective: still on levophed Objective - Results Result Diagrams: 08/25/17 07:30 08/25/17 07:30 Recent Labs: Laboratory Last Values WBC 17.6 Th/cmm (4.8-10.8) H 08/25/17 07:30 RBC 1.55 Mil/cmm (3.80-5.20) L 08/25/17 07:30 Hgb 6.1 gm/dL (12-16) L* 08/25/17 07:30 Hct 14.2 % (41.0-60) L* 08/25/17 07:30 MCV 91.5 fl (81-100) 08/25/17 07:30 MCH 39.3 pg (27.0-31.0) H 08/25/17 07:30 MCHC Differential 42.9 pg (28.0-36.0) H 08/25/17 07:30 RDW 15.2 % (11.5-20.0) 08/25/17 07:30 Plt Count 189 Th/cmm (150-400) 08/25/17 07:30 MPV 10.6 fl 08/25/17 07:30 Neutrophils % 79.6 % (40.0-80.0) 08/25/17 07:30 Band Neutrophils % 1 % (0-10) 08/24/17 07:15 Lymphocytes % 5.6 % (20.0-50.0) L 08/25/17 07:30 Monocytes % 10.4 % (2.0-10.0) H 08/25/17 07:30 Eosinophils % 4.4 % (0.0-5.0) 08/25/17 07:30 Basophils % 0.0 % (0.0-2.0) 08/25/17 07:30 Neutrophils (Manual) 81 % (40-80) H 08/24/17 07:15 Lymphocytes 2 % (20-50) L 08/24/17 07:15 Monocytes 10 % (2-10) 08/24/17 07:15 Eosinophils 6 % (0-5) H 08/24/17 07:15 Basophils 2 % (0-3) 08/21/17 07:30 Hypochromia 1+ 08/02/17 15:37 Platelet Estimate ADEQUATE (NORMAL) 08/24/17 07:15 Platelet Morphology NORMAL (NORMAL) 08/20/17 04:45 Anisocytosis 1+ 08/07/17 05:45 Crenated Cell 2+ 08/02/17 15:37 RBC Morph Micro Appear ABNORMAL (NORMAL) 08/02/17 15:37 PT 12.9 SECONDS (9.5-11.5) H 08/02/17 13:58 INR 1.23 (0.5-1.4) 08/02/17 13:58 PTT (Actin FS) 33.6 SECONDS (26.0-38.0) 08/02/17 13:58 Specimen Source Arterial 08/03/17 08:58 Sample Site Right Radial 08/03/17 08:58 pH 7.42 (7.35-7.45) 08/03/17 08:58 pCO2 37.0 mmHg (35.0-45.0) 08/03/17 08:58 pO2 204.0 mmHg (80.0-100.0) H 08/03/17 08:58 HCO3 24.8 mEq/L (20.0-26.0) 08/03/17 08:58 Base Excess -0.2 mEq/L (-3.0-3.0) 08/03/17 08:58 O2 Saturation 100.0 % (92.0-100.0) 08/03/17 08:58 Rhett Test Positive 08/03/17 08:58 Vent Rate 12 08/03/17 08:58 Inspired O2 60 08/03/17 08:58 Tidal Volume 450 08/03/17 08:58 PEEP 5 08/03/17 08:58 Pressure (ins/psv/peep) NA 08/03/17 08:58 Critical Value LZHANG 08/03/17 08:58 Sodium 138 mEq/L (136-145) 08/25/17 07:30 Potassium 4.3 mEq/L (3.5-5.1) 08/25/17 07:30 Chloride 102 mEq/L (98-107) 08/25/17 07:30 Carbon Dioxide 21.8 mEq/L (21.0-31.0) 08/25/17 07:30 Anion Gap 18.5 (7.0-16.0) H 08/25/17 07:30 BUN 60 mg/dL (7-25) H 08/25/17 07:30 Creatinine 2.7 mg/dL (0.6-1.2) H 08/25/17 07:30 Est GFR ( Amer) TNP 08/25/17 07:30 Est GFR (Non-Af Amer) TNP 08/25/17 07:30 BUN/Creatinine Ratio 22.2 08/25/17 07:30 Glucose 212 mg/dL (70-105) H 08/25/17 07:30 POC Glucose 195 MG/DL (70 - 105) H 08/25/17 05:18 Hemoglobin A1c % 7.7 % (4.0-6.0) H 08/02/17 15:37 Whole Bld Lactic Acid 1.97 mmol/L (0.60-1.99) 08/02/17 13:49 Calcium 8.6 mg/dL (8.6-10.3) 08/25/17 07:30 Magnesium 1.6 mg/dL (1.9-2.7) L 08/24/17 07:15 Iron 10 ug/dL (27-139) L 08/02/17 13:56 TIBC 135 ug/dL (250-450) L 08/02/17 13:56 Iron Saturation 7 % (15-55) L 08/02/17 13:56 Unsaturated IBC 125 ug/dL (118-369) 08/02/17 13:56 Ferritin 588 ng/mL (15-150) H 08/02/17 13:56 Total Bilirubin 0.4 mg/dL (0.3-1.0) 08/19/17 04:58 Direct Bilirubin 0.09 mg/dL (0.0-0.2) 08/02/17 13:57 AST 37 U/L (13-39) 08/19/17 04:58 ALT 10 U/L (7-52) 08/19/17 04:58 Alkaline Phosphatase 72 U/L (34-104) 08/19/17 04:58 Troponin I 0.10 ng/mL (0.01-0.05) H* D 08/20/17 17:00 B-Natriuretic Peptide 839.0 pg/mL (5.0-100.0) H 08/19/17 04:58 Total Protein 7.5 gm/dL (6.0-8.3) 08/19/17 04:58 Albumin 2.8 gm/dL (3.7-5.3) L 08/19/17 04:58 Globulin 4.7 gm/dL 08/19/17 04:58 Albumin/Globulin Ratio 0.6 (1.0-1.8) L 08/19/17 04:58 Triglycerides 132 mg/dL (<150) 08/04/17 06:30 Cholesterol 55 mg/dL (<200) 08/04/17 06:30 LDL Cholesterol Direct 16 mg/dL (75-193) L 08/04/17 06:30 HDL Cholesterol 13 mg/dL (23-92) L 08/04/17 06:30 Amylase 12 U/L (29-103) L 08/02/17 13:43 Lipase 4 U/L (11-82) L 08/02/17 13:43 TSH 3.74 uIU/ml (0.34-5.60) 08/04/17 06:30 Stool Occult Blood POSITIVE (NEGATIVE) H 08/03/17 17:50 Random Vancomycin 15.9 ug/mL (5.0-40.0) 08/25/17 07:30 Hepatitis A IgM Ab Negative (Negative) 08/08/17 08:15 Hep Bs Antigen Negative (Negative) 08/08/17 08:15 Hep B Core IgM Ab Negative (Negative) 08/08/17 08:15 Hepatitis C Antibody <0.1 s/co ratio (0.0-0.9) 08/08/17 08:15 Blood Type A POSITIVE 08/24/17 08:30 Antibody Screen POSITIVE 08/24/17 08:30 Antibody Identification Anti-K 08/24/17 08:30 NEVILLE, IgG Interpret NEGATIVE 08/15/17 07:50 Crossmatch See Detail 08/24/17 08:30 - Physical Exam Vitals and I&O: Vital Signs Temp 97.8 F 08/25/17 11:00 Pulse 85 08/25/17 11:00 Resp 16 08/25/17 11:00 BP 98/24 08/25/17 11:00 Pulse Ox 100 08/25/17 11:00 Intake & Output 08/24/17 08/25/17 08/25/17 18:59 06:59 18:59 Intake Total 1576.66 1858.002 258 Output Total 0 Balance 1576.66 1858.002 258 Weight (lbs) 107.048 kg 106.141 kg Intake: Intake, IV Amount 506.66 1208.002 258 Albumin 25% 25gm/100mL 25 100 gm In 100 ml @ 50 mls/hr IV X1 ONE Rx#:[id number] Norepinephrine 8 mg In 456.66 508.002 258 Sodium Chloride 0.9% 250 ml @ 18 MCG/MIN 34.83 mls /hr IV TITR PRN Rx#: [id number] Piperacillin Sodium/ 50 50 Tazobact 2.25 gm In Sodium Chloride 0.9% 50 ml @ 100 mls/hr IV Q6HR FOUZIA Rx#:[id number] Piperacillin Sodium/ 50 Tazobact 2.25 gm In Sodium Chloride 0.9% 50 ml @ 100 mls/hr IV Q8HR FOUZIA Rx#:[id number] Vancomycin HCl 1.5 gm In 500 Sodium Chloride 0.9% 500 ml @ 250 mls/hr IV 1800 ONE Rx#:[id number] Tube Feeding 720 550 Blood Product 250 Albumin 100 Other 100 Output: Urine 0 Other: # Bowel Movements 1 0 Stool Characteristics Soft Liquid Brown Black Active Medications: Current Medications Acetaminophen (Tylenol) 650 mg GT DAILY [facility] Stop: 10/20/17 08:59 Last Admin: 08/25/17 09:18 Dose: 650 mg Albuterol/Ipratropium (Duoneb Neb) 3 ml HHN Q4HRT FOUZIA Stop: 10/19/17 10:59 Last Admin: 08/25/17 11:00 Dose: Not Given Amiodarone HCl (Cordarone) 200 mg GT Q12H FOUZIA Stop: 10/20/17 10:59 Last Admin: 08/24/17 22:45 Dose: 200 mg Ascorbic Acid (Vitamin C) 500 mg PO DAILY [facility]OUZIA Stop: 10/20/17 08:59 Last Admin: 08/25/17 09:19 Dose: 500 mg Aspirin (Aspirin Chewable) 81 mg PO DAILY [facility]OU[facility]IA Stop: 10/20/17 08:59 Last Admin: 08/25/17 09:19 Dose: 81 mg Atorvastatin Calcium (Lipitor) 40 mg GT DAILY FOUZIA PRN Reason: Protocol Stop: 10/20/17 08:59 Last Admin: 08/25/17 09:19 Dose: 40 mg Bisacodyl (Dulcolax 10 Mg Supp) 10 mg RC Q72HR PRN PRN Reason: if MOM ineffective Stop: 10/19/17 11:29 Chlorhexidine Gluconate (Peridex) 15 ml MM 0800,1999 [facility] Stop: 10/19/17 19:59 Last Admin: 08/25/17 08:35 Dose: 15 ml Cholecalciferol (Vitamin D3) 1,000 iu PO DAILY [facility] Stop: 10/20/17 08:59 Last Admin: 08/25/17 09:16 Dose: 1,000 iu Diltiazem HCl (Cardizem) 20 mg IV Q4HR PRN PRN Reason: HR ABOVE 120 Stop: 09/13/17 11:59 Docusate Sodium (Colace) 100 mg PO DAILY [facility] Stop: 10/20/17 08:59 Last Admin: 08/25/17 09:19 Dose: 100 mg Heparin Sodium (Porcine) (Heparin) 5,000 units SUBQ Q12HR [facility] Stop: 10/19/17 20:59 Last Admin: 08/25/17 09:20 Dose: Not Given Levofloxacin (Levaquin Pb) 250 mg in 50 mls @ 50 mls/hr IV Q48HR [facility] Stop: 10/18/17 08:59 Last Admin: 08/25/17 08:20 Dose: 50 mls/hr Dopamine HCl/Dextrose (Dopamine) 400 mg in 250 mls @ 0 mls/hr IV TITR PRN; Protocol; 0 MCG/KG/MIN PRN Reason: BP MAINTENANCE (PER PROTOCOL) Stop: 10/19/17 11:28 Norepinephrine Bitartrate 8 mg (/ Sodium Chloride) 258 mls @ 34.83 mls/hr IV TITR PRN; Protocol; 18 MCG/MIN PRN Reason: BP MAINTENANCE (PER PROTOCOL) Stop: 10/19/17 11:09 Last Admin: 08/25/17 10:54 Dose: 22 mcg/min, 42.57 mls/hr Piperacillin Sod/Tazobactam (Sod 2.25 gm/ Sodium Chloride) 50 mls @ 100 mls/hr IV Q8HR [facility] Stop: 10/23/17 20:59 Last Infusion: 08/25/17 05:40 Dose: Infused Vancomycin HCl 1.5 gm/ Sodium (Chloride) 500 mls @ 250 mls/hr IV ONCE ONE Stop: 08/25/17 11:59 Last Admin: 08/25/17 09:20 Dose: 250 mls/hr Phenylephrine HCl 10 mg/ (Sodium Chloride) 250 mls @ 0 mls/hr IV TITR FOUZIA; Per Protocol PRN Reason: Protocol Stop: 10/24/17 10:29 Insulin Aspart (Novolog Insulin Sliding Scale) 0 units SUBQ Q6HR FOUZIA PRN Reason: Protocol Stop: 10/19/17 11:59 Last Admin: 08/25/17 05:37 Dose: 2 units Insulin Detemir (Levemir Insulin) 16 units SUBQ HS [facility] PRN Reason: Protocol Stop: 10/19/17 20:59 Last Admin: 08/24/17 20:51 Dose: 16 units Lactobacillus Rhamnosus (Culturelle 15b) 1 each PO DAILY [facility] Stop: 10/20/17 08:59 Last Admin: 08/25/17 09:19 Dose: 1 each Lorazepam (Ativan) 2 mg IVP Q4HR PRN; Protocol PRN Reason: Agitation Stop: 10/15/17 11:49 Last Admin: 08/25/17 09:30 Dose: 2 mg Magnesium Hydroxide (Milk Of Magnesia) 30 ml PO Q72HR PRN PRN Reason: Constipation Stop: 10/19/17 11:44 Mirtazapine (Remeron) 15 mg GT HS [facility] PRN Reason: Protocol Stop: 10/19/17 20:59 Last Admin: 08/24/17 21:00 Dose: 15 mg Miscellaneous (Probiotic Screen) 1 ea MC PRN PRN PRN Reason: PROTOCOL Stop: 10/22/17 10:29 Miscellaneous (Vancomycin Iv Per Pharmacy) 1 ea MC PRN [facility] Stop: 10/23/17 16:59 Multivitamins/Vitamin C (Theragran) 1 tab PO DAILY [facility] Stop: 10/20/17 08:59 Last Admin: 08/25/17 09:19 Dose: 1 tab Ondansetron HCl (Zofran) 4 mg IV Q6H PRN PRN Reason: Nausea / Vomiting Stop: 10/19/17 11:40 Pantoprazole Sodium (Protonix) 40 mg IVP DAILY [facility] Stop: 10/20/17 08:59 Last Admin: 08/25/17 09:16 Dose: 40 mg Simethicone (Mylicon) 80 mg GT Q6HR PRN PRN Reason: Gas Stop: 10/19/17 11:59 Sodium Phosphate (Fleet Enema) 135 ml RC PRN PRN PRN Reason: If MOM/Dulcolax ineffective Stop: 10/19/17 11:29 Zinc Sulfate (Zinc Sulfate) 220 mg PO DAILY [facility] Stop: 10/20/17 08:59 Last Admin: 08/25/17 09:19 Dose: 220 mg General: Alert, No acute distress (scattered rhonchi) HEENT: Atraumatic, PERRLA, EOMI, Mucous membr. moist/pink Neck: Supple, Other (TRACH) Cardiovascular: Regular rate Lungs: Other (coarse rhonchi) Abdomen: Bowel sounds, Soft, Other (INTACT GT) Extremities: Edema (upper wxtrmities), Other (upper ext) Neurological: Sensation intact Skin: no Rash Psych/Mental Status: Mood NL - Procedures Procedures: Procedures Procedure Code Date BLOOD TRANSFUSION SERVICE 02538 08/02/17 EXCISION OF STOMACH, ENDO, DIAGN [id number] 07/10/17 INSPECTION OF LOWER INTESTINAL TRACT, ENDO [id number] 07/10/17 PERFORMANCE OF URINARY FILTRATION, <6 HRS/DAY [id number] 07/10/17 RESPIRATORY VENTILATION, GREATER THAN 96 CONSECUTIVE HOURS [id number] 08/02/17 TRANSFUSE NONAUT RED BLOOD CELLS IN PERIPH VEIN, PERC 26318T8 08/02/17 Nutritional Asmnt/Malnutr-PDOC - Dietary Evaluation Malnutrition Findings (Please click <Entered> for more info): Nutritional Asmnt/Malnutrition Start: 08/05/17 15: 53 Text: Status: Complete Freq: Document 08/05/17 15:53 [facility] (Rec: 08/05/17 16:19 [id number]) Nutritional Asmnt/Malnutrition Patient General Information Nutritional Screening High Risk Diagnosis sepsis, respiratory failure, ESRD Pertinent Medical Hx/Surgical Hx ESRD on HD, respiratory failure with tracheostomy, dysphagia, a fib, anemia, HTN, GERD Subjective Information Pt on vent, not able to interview. Pt was on TF Novosource Renal 30ml/hr continuous, NPO today for surgery. Pt has dialysis ordred per nurse note. Current Diet Order/ Nutrition Support NPO on 08/05 Pertinent Medications vit C, vit D3, colace, novolog , remeron, theragran, protonix , zinc Pertinent Labs 08/05 Na 134, K 3.6, Cl 102, BUN 77, Cr 4.2, Glucose 216, POC 224-233 08/02 A1c 7.7 Nutritional Hx/Data Height 1.6 m Height (Calculated Centimeters) 160.0 Current Weight (lbs) 87.543 kg Weight (Calculated Kilograms) 87.5 Weight (Calculated Grams) 25404.3 [place] Body Weight 115 Body Mass Index (BMI) 34.2 Weight Status Obese GI Symptoms GI Symptoms None Last BM 08/04 Difficult in: None Skin Integrity/Comment: reddened to left/right inner thigh, right lateral index finger, right/left arm; skin tear to left abdominal fold; pressure area to coccy/sacral Estimated Nutritional Goals BEE in Kcals: Adj wt of IBW Calories/Kcals/Kg 30-35 adj wt 61kg Kcals Calculated 3944-3797 Protein: Adj wt of IBW Protein g/k.2-1.4 Protein Calculated 73-85 Fluid: ml 1830-2135ml (1ml/kcal) Nutritional Problem 1. Problem Problem altered nutrition related lab values Etiology hx of ESRD, endocrine dysfunction Signs/Symptoms: BUN 77, Cr 4.2, Glucose 216, POC 224-233, A1c 7.7 Malnutrition Alert Protein-Calorie Malnutrition N/A Is there a minimum of two criteria No selected? Query Text:Check all the applicable criteria. A minimum of two criteria are recommended for diagnosis of either severe or non-severe malnutrition. Intervention/Recommendation Comments 1. Resume TF Novosource Renal 30ml/hr continuous as ordered. increase to goal rate of 40ml /hr continuous as tolerated. This will provide 1920kcal, 87g protein and 688ml free water, meeting 100% of nutritional needs 2. Monitor TF rate, tolerance, wt weekly, skin integrity and labs 3. F/U as high risk in 2-3 days, 08/07-08/08 Expected Outcomes/Goals Expected Outcomes/Goals 1. Pt to meet at least 75% of nutritional needs via nutrition support with tolerance 2. Wt stability, skin to remain intact, labs to approach WNL.
--- NOTE | 2017-08-25 13:24 | Infectious Disease Prog Note ---
Infectious Disease Subjective - Review of Systems Service Date: 08/25/17 Events since last encounter: Has developed GI bleed. Subjective: no fever. on levophed. Infectious Disease Objective - Results Result Diagrams: 08/25/17 07:30 08/25/17 07:30 Recent Labs: Laboratory Last Values WBC 17.6 Th/cmm (4.8-10.8) H 08/25/17 07:30 RBC 1.55 Mil/cmm (3.80-5.20) L 08/25/17 07:30 Hgb 6.1 gm/dL (12-16) L* 08/25/17 07:30 Hct 14.2 % (41.0-60) L* 08/25/17 07:30 MCV 91.5 fl (81-100) 08/25/17 07:30 MCH 39.3 pg (27.0-31.0) H 08/25/17 07:30 MCHC Differential 42.9 pg (28.0-36.0) H 08/25/17 07:30 RDW 15.2 % (11.5-20.0) 08/25/17 07:30 Plt Count 189 Th/cmm (150-400) 08/25/17 07:30 MPV 10.6 fl 08/25/17 07:30 Neutrophils % 79.6 % (40.0-80.0) 08/25/17 07:30 Band Neutrophils % 1 % (0-10) 08/24/17 07:15 Lymphocytes % 5.6 % (20.0-50.0) L 08/25/17 07:30 Monocytes % 10.4 % (2.0-10.0) H 08/25/17 07:30 Eosinophils % 4.4 % (0.0-5.0) 08/25/17 07:30 Basophils % 0.0 % (0.0-2.0) 08/25/17 07:30 Neutrophils (Manual) 81 % (40-80) H 08/24/17 07:15 Lymphocytes 2 % (20-50) L 08/24/17 07:15 Monocytes 10 % (2-10) 08/24/17 07:15 Eosinophils 6 % (0-5) H 08/24/17 07:15 Basophils 2 % (0-3) 08/21/17 07:30 Hypochromia 1+ 08/02/17 15:37 Platelet Estimate ADEQUATE (NORMAL) 08/24/17 07:15 Platelet Morphology NORMAL (NORMAL) 08/20/17 04:45 Anisocytosis 1+ 08/07/17 05:45 Crenated Cell 2+ 08/02/17 15:37 RBC Morph Micro Appear ABNORMAL (NORMAL) 08/02/17 15:37 PT 12.9 SECONDS (9.5-11.5) H 08/02/17 13:58 INR 1.23 (0.5-1.4) 08/02/17 13:58 PTT (Actin FS) 33.6 SECONDS (26.0-38.0) 08/02/17 13:58 Specimen Source Arterial 08/03/17 08:58 Sample Site Right Radial 08/03/17 08:58 pH 7.42 (7.35-7.45) 08/03/17 08:58 pCO2 37.0 mmHg (35.0-45.0) 08/03/17 08:58 pO2 204.0 mmHg (80.0-100.0) H 08/03/17 08:58 HCO3 24.8 mEq/L (20.0-26.0) 08/03/17 08:58 Base Excess -0.2 mEq/L (-3.0-3.0) 08/03/17 08:58 O2 Saturation 100.0 % (92.0-100.0) 08/03/17 08:58 Rhett Test Positive 08/03/17 08:58 Vent Rate 12 08/03/17 08:58 Inspired O2 60 08/03/17 08:58 Tidal Volume 450 08/03/17 08:58 PEEP 5 08/03/17 08:58 Pressure (ins/psv/peep) NA 08/03/17 08:58 Critical Value LZHANG 08/03/17 08:58 Sodium 138 mEq/L (136-145) 08/25/17 07:30 Potassium 4.3 mEq/L (3.5-5.1) 08/25/17 07:30 Chloride 102 mEq/L (98-107) 08/25/17 07:30 Carbon Dioxide 21.8 mEq/L (21.0-31.0) 08/25/17 07:30 Anion Gap 18.5 (7.0-16.0) H 08/25/17 07:30 BUN 60 mg/dL (7-25) H 08/25/17 07:30 Creatinine 2.7 mg/dL (0.6-1.2) H 08/25/17 07:30 Est GFR ( Amer) TNP 08/25/17 07:30 Est GFR (Non-Af Amer) TNP 08/25/17 07:30 BUN/Creatinine Ratio 22.2 08/25/17 07:30 Glucose 212 mg/dL (70-105) H 08/25/17 07:30 POC Glucose 249 MG/DL (70 - 105) H 08/25/17 12:27 Hemoglobin A1c % 7.7 % (4.0-6.0) H 08/02/17 15:37 Whole Bld Lactic Acid 1.97 mmol/L (0.60-1.99) 08/02/17 13:49 Calcium 8.6 mg/dL (8.6-10.3) 08/25/17 07:30 Magnesium 1.6 mg/dL (1.9-2.7) L 08/24/17 07:15 Iron 10 ug/dL (27-139) L 08/02/17 13:56 TIBC 135 ug/dL (250-450) L 08/02/17 13:56 Iron Saturation 7 % (15-55) L 08/02/17 13:56 Unsaturated IBC 125 ug/dL (118-369) 08/02/17 13:56 Ferritin 588 ng/mL (15-150) H 08/02/17 13:56 Total Bilirubin 0.4 mg/dL (0.3-1.0) 08/19/17 04:58 Direct Bilirubin 0.09 mg/dL (0.0-0.2) 08/02/17 13:57 AST 37 U/L (13-39) 08/19/17 04:58 ALT 10 U/L (7-52) 08/19/17 04:58 Alkaline Phosphatase 72 U/L (34-104) 08/19/17 04:58 Troponin I 0.10 ng/mL (0.01-0.05) H* D 08/20/17 17:00 B-Natriuretic Peptide 839.0 pg/mL (5.0-100.0) H 08/19/17 04:58 Total Protein 7.5 gm/dL (6.0-8.3) 08/19/17 04:58 Albumin 2.8 gm/dL (3.7-5.3) L 08/19/17 04:58 Globulin 4.7 gm/dL 08/19/17 04:58 Albumin/Globulin Ratio 0.6 (1.0-1.8) L 08/19/17 04:58 Triglycerides 132 mg/dL (<150) 08/04/17 06:30 Cholesterol 55 mg/dL (<200) 08/04/17 06:30 LDL Cholesterol Direct 16 mg/dL (75-193) L 08/04/17 06:30 HDL Cholesterol 13 mg/dL (23-92) L 08/04/17 06:30 Amylase 12 U/L (29-103) L 08/02/17 13:43 Lipase 4 U/L (11-82) L 08/02/17 13:43 TSH 3.74 uIU/ml (0.34-5.60) 08/04/17 06:30 Stool Occult Blood POSITIVE (NEGATIVE) H 08/03/17 17:50 Random Vancomycin 15.9 ug/mL (5.0-40.0) 08/25/17 07:30 Hepatitis A IgM Ab Negative (Negative) 08/08/17 08:15 Hep Bs Antigen Negative (Negative) 08/08/17 08:15 Hep B Core IgM Ab Negative (Negative) 08/08/17 08:15 Hepatitis C Antibody <0.1 s/co ratio (0.0-0.9) 08/08/17 08:15 Blood Type A POSITIVE 08/24/17 08:30 Antibody Screen POSITIVE 08/24/17 08:30 Antibody Identification Anti-K 08/24/17 08:30 NEVIL[place], IgG Interpret NEGATIVE 08/15/17 07:50 Crossmatch See Detail 08/24/17 08:30 - Physical Exam Vitals and I&O: Vital Signs Temp 97.8 F 08/25/17 11:00 Pulse 86 08/25/17 11:30 Resp 18 08/25/17 11:00 BP 109/25 08/25/17 11:15 Pulse Ox 100 08/25/17 11:00 Intake & Output 08/24/17 08/25/17 08/25/17 18:59 06:59 18:59 Intake Total 1576.66 1858.002 258 Output Total 0 Balance 1576.66 1858.002 258 Weight (lbs) 107.048 kg 106.141 kg Intake: Intake, IV Amount 506.66 1208.002 258 Albumin 25% 25gm/100mL 25 100 gm In 100 ml @ 50 mls/hr IV X1 ONE Rx#:[id number] Norepinephrine 8 mg In 456.66 508.002 258 Sodium Chloride 0.9% 250 ml @ 18 MCG/MIN 34.83 mls /hr IV TITR PRN Rx#: [id number] Piperacillin Sodium/ 50 50 Tazobact 2.25 gm In Sodium Chloride 0.9% 50 ml @ 100 mls/hr IV Q6HR [facility] Rx#:[id number] Piperacillin Sodium/ 50 Tazobact 2.25 gm In Sodium Chloride 0.9% 50 ml @ 100 mls/hr IV Q8HR [facility] Rx#:[id number] Vancomycin HCl 1.5 gm In 500 Sodium Chloride 0.9% 500 ml @ 250 mls/hr IV 1800 ONE Rx#:[id number] Tube Feeding 720 550 Blood Product 250 Albumin 100 Other 100 Output: Urine 0 Other: # Bowel Movements 1 0 Stool Characteristics Soft Liquid Brown Black Active Medications: Current Medications Acetaminophen (Tylenol) 650 mg GT DAILY [facility] Stop: 10/20/17 08:59 Last Admin: 08/25/17 09:18 Dose: 650 mg Albuterol/Ipratropium (Duoneb Neb) 3 ml HHN Q4HRT [facility] Stop: 10/19/17 10:59 Last Admin: 08/25/17 11:00 Dose: Not Given Amiodarone HCl (Cordarone) 200 mg GT Q12H [facility] Stop: 10/20/17 10:59 Last Admin: 08/25/17 11:30 Dose: 200 mg Ascorbic Acid (Vitamin C) 500 mg PO DAILY [facility] Stop: 10/20/17 08:59 Last Admin: 08/25/17 09:19 Dose: 500 mg Aspirin (Aspirin Chewable) 81 mg PO DAILY [facility] Stop: 10/20/17 08:59 Last Admin: 08/25/17 09:19 Dose: 81 mg Atorvastatin Calcium (Lipitor) 40 mg GT DAILY [facility] PRN Reason: Protocol Stop: 10/20/17 08:59 Last Admin: 08/25/17 09:19 Dose: 40 mg Bisacodyl (Dulcolax 10 Mg Supp) 10 mg RC Q72HR PRN PRN Reason: if MOM ineffective Stop: 10/19/17 11:29 Chlorhexidine Gluconate (Peridex) 15 ml MM 0800,1999 [facility] Stop: 10/19/17 19:59 Last Admin: 08/25/17 08:35 Dose: 15 ml Cholecalciferol (Vitamin D3) 1,000 iu PO DAILY [facility] Stop: 10/20/17 08:59 Last Admin: 08/25/17 09:16 Dose: 1,000 iu Diltiazem HCl (Cardizem) 20 mg IV Q4HR PRN PRN Reason: HR ABOVE 120 Stop: 09/13/17 11:59 Docusate Sodium (Colace) 100 mg PO DAILY [facility] Stop: 10/20/17 08:59 Last Admin: 08/25/17 09:19 Dose: 100 mg Heparin Sodium (Porcine) (Heparin) 5,000 units SUBQ Q12HR [facility] Stop: 10/19/17 20:59 Last Admin: 08/25/17 09:20 Dose: Not Given Levofloxacin (Levaquin Pb) 250 mg in 50 mls @ 50 mls/hr IV Q48HR [facility] Stop: 10/18/17 08:59 Last Admin: 08/25/17 08:20 Dose: 50 mls/hr Dopamine HCl/Dextrose (Dopamine) 400 mg in 250 mls @ 0 mls/hr IV TITR PRN; Protocol; 0 MCG/KG/MIN PRN Reason: BP MAINTENANCE (PER PROTOCOL) Stop: 10/19/17 11:28 Norepinephrine Bitartrate 8 mg (/ Sodium Chloride) 258 mls @ 34.83 mls/hr IV TITR PRN; Protocol; 18 MCG/MIN PRN Reason: BP MAINTENANCE (PER PROTOCOL) Stop: 10/19/17 11:09 Last Admin: 08/25/17 10:54 Dose: 22 mcg/min, 42.57 mls/hr Piperacillin Sod/Tazobactam (Sod 2.25 gm/ Sodium Chloride) 50 mls @ 100 mls/hr IV Q8HR [facility] Stop: 10/23/17 20:59 Last Admin: 08/25/17 12:21 Dose: 100 mls/hr Phenylephrine HCl 10 mg/ (Sodium Chloride) 250 mls @ 0 mls/hr IV TITR [facility]; Per Protocol PRN Reason: Protocol Stop: 10/24/17 10:29 Insulin Aspart (Novolog Insulin Sliding Scale) 0 units SUBQ Q6HR [facility] PRN Reason: Protocol Stop: 10/19/17 11:59 Last Admin: 08/25/17 12:27 Dose: 4 units Insulin Detemir (Levemir Insulin) 16 units SUBQ HS [facility] PRN Reason: Protocol Stop: 10/19/17 20:59 Last Admin: 08/24/17 20:51 Dose: 16 units Lactobacillus Rhamnosus (Culturelle 15b) 1 each PO DAILY [facility] Stop: 10/20/17 08:59 Last Admin: 08/25/17 09:19 Dose: 1 each Lorazepam (Ativan) 2 mg IVP Q4HR PRN; Protocol PRN Reason: Agitation Stop: 10/15/17 11:49 Last Admin: 08/25/17 09:30 Dose: 2 mg Magnesium Hydroxide (Milk Of Magnesia) 30 ml PO Q72HR PRN PRN Reason: Constipation Stop: 10/19/17 11:44 Mirtazapine (Remeron) 15 mg GT HS [facility] PRN Reason: Protocol Stop: 10/19/17 20:59 Last Admin: 08/24/17 21:00 Dose: 15 mg Miscellaneous (Probiotic Screen) 1 ea MC PRN PRN PRN Reason: PROTOCOL Stop: 10/22/17 10:29 Miscellaneous (Vancomycin Iv Per Pharmacy) 1 ea MC PRN [facility] Stop: 10/23/17 16:59 Multivitamins/Vitamin C (Theragran) 1 tab PO DAILY [facility] Stop: 10/20/17 08:59 Last Admin: 08/25/17 09:19 Dose: 1 tab Ondansetron HCl (Zofran) 4 mg IV Q6H PRN PRN Reason: Nausea / Vomiting Stop: 10/19/17 11:40 Pantoprazole Sodium (Protonix) 40 mg IVP DAILY [facility] Stop: 10/20/17 08:59 Last Admin: 08/25/17 09:16 Dose: 40 mg Simethicone (Mylicon) 80 mg GT Q6HR PRN PRN Reason: Gas Stop: 10/19/17 11:59 Sodium Phosphate (Fleet Enema) 135 ml RC PRN PRN PRN Reason: If MOM/Dulcolax ineffective Stop: 10/19/17 11:29 Zinc Sulfate (Zinc Sulfate) 220 mg PO DAILY [facility] Stop: 10/20/17 08:59 Last Admin: 08/25/17 09:19 Dose: 220 mg General: no acute distress, well developed, well nourished HEENT: atraumatic, normocephalic, PERRLA Neck: supple, no thyromegaly Cardiovascular: S1S2, regular Lungs: clear to auscultation bilaterally, clear to percussion Abdomen: soft, no tender, no distended, no mass Extremities: no cyanosis, no clubbing Neurological: other (sedated) Skin: intact - Procedures Procedures: Procedures Procedure Code Date BLOOD TRANSFUSION SERVICE 18971 08/02/17 EXCISION OF STOMACH, ENDO, DIAGN [id number] 07/10/17 INSPECTION OF LOWER INTESTINAL TRACT, ENDO [id number] 07/10/17 PERFORMANCE OF URINARY FILTRATION, <6 HRS/DAY [id number] 07/10/17 RESPIRATORY VENTILATION, GREATER THAN 96 CONSECUTIVE HOURS [id number] 08/02/17 TRANSFUSE NONAUT RED BLOOD CELLS IN PERIPH VEIN, PERC [id number] 08/02/17 Infectious Disease Assmt/Plan - Assessment Assessment: 1. Septic shock. versus cardiogenic shock. 2. Gram-negative negative bacteremia treated 3. Pneumonia. 4. 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 5. Diabetes mellitus type 2. 6. Obesity. 7. Hypotension on levophed. 8. Gi bleed. - Plan Plan: Continue levaquin. Contnue vancomycin IV and Zosyn. Patient Is poor prognosis. Nutritional Asmnt/Malnutr-PDOC - Dietary Evaluation Malnutrition Findings (Please click <Entered> for more info): Nutritional Asmnt/Malnutrition Start: 08/05/17 15: 53 Text: Status: Complete Freq: Document 08/05/17 15:53 LCNAVING (Rec: 08/05/17 16:19 LCNAVING [id number]) Nutritional Asmnt/Malnutrition Patient General Information Nutritional Screening High Risk Diagnosis sepsis, respiratory failure, ESRD Pertinent Medical Hx/Surgical Hx ESRD on HD, respiratory failure with tracheostomy, dysphagia, a fib, anemia, HTN, GERD Subjective Information Pt on vent, not able to interview. Pt was on TF Novosource Renal 30ml/hr continuous, NPO today for surgery. Pt has dialysis ordred per nurse note. Current Diet Order/ Nutrition Support NPO on 08/05 Pertinent Medications vit C, vit D3, colace, novolog , remeron, theragran, protonix , zinc Pertinent Labs 08/05 Na 134, K 3.6, Cl 102, BUN 77, Cr 4.2, Glucose 216, POC 224-233 08/02 A1c 7.7 Nutritional Hx/Data Height 1.6 m Height (Calculated Centimeters) 160.0 Current Weight (lbs) 87.543 kg Weight (Calculated Kilograms) 87.5 Weight (Calculated Grams) 62316.3 [place] Body Weight 115 Body Mass Index (BMI) 34.2 Weight Status Obese GI Symptoms GI Symptoms None Last BM 08/04 Difficult in: None Skin Integrity/Comment: reddened to left/right inner thigh, right lateral index finger, right/left arm; skin tear to left abdominal fold; pressure area to coccy/sacral Estimated Nutritional Goals BEE in Kcals: Adj wt of IBW Calories/Kcals/Kg 30-35 adj wt 61kg Kcals Calculated 3461-2222 Protein: Adj wt of IBW Protein g/k.2-1.4 Protein Calculated 73-85 Fluid: ml 1830-2135ml (1ml/kcal) Nutritional Problem 1. Problem Problem altered nutrition related lab values Etiology hx of ESRD, endocrine dysfunction Signs/Symptoms: BUN 77, Cr 4.2, Glucose 216, POC 224-233, A1c 7.7 Malnutrition Alert Protein-Calorie Malnutrition N/A Is there a minimum of two criteria No selected? Query Text:Check all the applicable criteria. A minimum of two criteria are recommended for diagnosis of either severe or non-severe malnutrition. Intervention/Recommendation Comments 1. Resume TF Novosource Renal 30ml/hr continuous as ordered. increase to goal rate of 40ml /hr continuous as tolerated. This will provide 1920kcal, 87g protein and 688ml free water, meeting 100% of nutritional needs 2. Monitor TF rate, tolerance, wt weekly, skin integrity and labs 3. F/U as high risk in 2-3 days, 08/07-08/08 Expected Outcomes/Goals Expected Outcomes/Goals 1. Pt to meet at least 75% of nutritional needs via nutrition support with tolerance 2. Wt stability, skin to remain intact, labs to approach WNL.
--- NOTE | 2017-08-25 15:11 | General Progress Note ---
Subjective - Review of Systems Service Date: 08/25/17 Subjective: sleeping, on vent Objective - Results Result Diagrams: 08/25/17 07:30 08/25/17 07:30 Recent Labs: Laboratory Last Values WBC 17.6 Th/cmm (4.8-10.8) H 08/25/17 07:30 RBC 1.55 Mil/cmm (3.80-5.20) L 08/25/17 07:30 Hgb 6.1 gm/dL (12-16) L* 08/25/17 07:30 Hct 14.2 % (41.0-60) L* 08/25/17 07:30 MCV 91.5 fl (81-100) 08/25/17 07:30 MCH 39.3 pg (27.0-31.0) H 08/25/17 07:30 MCHC Differential 42.9 pg (28.0-36.0) H 08/25/17 07:30 RDW 15.2 % (11.5-20.0) 08/25/17 07:30 Plt Count 189 Th/cmm (150-400) 08/25/17 07:30 MPV 10.6 fl 08/25/17 07:30 Neutrophils % 79.6 % (40.0-80.0) 08/25/17 07:30 Band Neutrophils % 1 % (0-10) 08/24/17 07:15 Lymphocytes % 5.6 % (20.0-50.0) L 08/25/17 07:30 Monocytes % 10.4 % (2.0-10.0) H 08/25/17 07:30 Eosinophils % 4.4 % (0.0-5.0) 08/25/17 07:30 Basophils % 0.0 % (0.0-2.0) 08/25/17 07:30 Neutrophils (Manual) 81 % (40-80) H 08/24/17 07:15 Lymphocytes 2 % (20-50) L 08/24/17 07:15 Monocytes 10 % (2-10) 08/24/17 07:15 Eosinophils 6 % (0-5) H 08/24/17 07:15 Basophils 2 % (0-3) 08/21/17 07:30 Hypochromia 1+ 08/02/17 15:37 Platelet Estimate ADEQUATE (NORMAL) 08/24/17 07:15 Platelet Morphology NORMAL (NORMAL) 08/20/17 04:45 Anisocytosis 1+ 08/07/17 05:45 Crenated Cell 2+ 08/02/17 15:37 RBC Morph Micro Appear ABNORMAL (NORMAL) 08/02/17 15:37 PT 12.9 SECONDS (9.5-11.5) H 08/02/17 13:58 INR 1.23 (0.5-1.4) 08/02/17 13:58 PTT (Actin FS) 33.6 SECONDS (26.0-38.0) 08/02/17 13:58 Specimen Source Arterial 08/03/17 08:58 Sample Site Right Radial 08/03/17 08:58 pH 7.42 (7.35-7.45) 08/03/17 08:58 pCO2 37.0 mmHg (35.0-45.0) 08/03/17 08:58 pO2 204.0 mmHg (80.0-100.0) H 08/03/17 08:58 HCO3 24.8 mEq/L (20.0-26.0) 08/03/17 08:58 Base Excess -0.2 mEq/L (-3.0-3.0) 08/03/17 08:58 O2 Saturation 100.0 % (92.0-100.0) 08/03/17 08:58 Rhett Test Positive 08/03/17 08:58 Vent Rate 12 08/03/17 08:58 Inspired O2 60 08/03/17 08:58 Tidal Volume 450 08/03/17 08:58 PEEP 5 08/03/17 08:58 Pressure (ins/psv/peep) NA 08/03/17 08:58 Critical Value LZHANG 08/03/17 08:58 Sodium 138 mEq/L (136-145) 08/25/17 07:30 Potassium 4.3 mEq/L (3.5-5.1) 08/25/17 07:30 Chloride 102 mEq/L (98-107) 08/25/17 07:30 Carbon Dioxide 21.8 mEq/L (21.0-31.0) 08/25/17 07:30 Anion Gap 18.5 (7.0-16.0) H 08/25/17 07:30 BUN 60 mg/dL (7-25) H 08/25/17 07:30 Creatinine 2.7 mg/dL (0.6-1.2) H 08/25/17 07:30 Est GFR ( Amer) TNP 08/25/17 07:30 Est GFR (Non-Af Amer) TNP 08/25/17 07:30 BUN/Creatinine Ratio 22.2 08/25/17 07:30 Glucose 212 mg/dL (70-105) H 08/25/17 07:30 POC Glucose 249 MG/DL (70 - 105) H 08/25/17 12:27 Hemoglobin A1c % 7.7 % (4.0-6.0) H 08/02/17 15:37 Whole Bld Lactic Acid 1.97 mmol/L (0.60-1.99) 08/02/17 13:49 Calcium 8.6 mg/dL (8.6-10.3) 08/25/17 07:30 Magnesium 1.6 mg/dL (1.9-2.7) L 08/24/17 07:15 Iron 10 ug/dL (27-139) L 08/02/17 13:56 TIBC 135 ug/dL (250-450) L 08/02/17 13:56 Iron Saturation 7 % (15-55) L 08/02/17 13:56 Unsaturated IBC 125 ug/dL (118-369) 08/02/17 13:56 Ferritin 588 ng/mL (15-150) H 08/02/17 13:56 Total Bilirubin 0.4 mg/dL (0.3-1.0) 08/19/17 04:58 Direct Bilirubin 0.09 mg/dL (0.0-0.2) 08/02/17 13:57 AST 37 U/L (13-39) 08/19/17 04:58 ALT 10 U/L (7-52) 08/19/17 04:58 Alkaline Phosphatase 72 U/L (34-104) 08/19/17 04:58 Troponin I 0.10 ng/mL (0.01-0.05) H* D 08/20/17 17:00 B-Natriuretic Peptide 839.0 pg/mL (5.0-100.0) H 08/19/17 04:58 Total Protein 7.5 gm/dL (6.0-8.3) 08/19/17 04:58 Albumin 2.8 gm/dL (3.7-5.3) L 08/19/17 04:58 Globulin 4.7 gm/dL 08/19/17 04:58 Albumin/Globulin Ratio 0.6 (1.0-1.8) L 08/19/17 04:58 Triglycerides 132 mg/dL (<150) 08/04/17 06:30 Cholesterol 55 mg/dL (<200) 08/04/17 06:30 LDL Cholesterol Direct 16 mg/dL (75-193) L 08/04/17 06:30 HDL Cholesterol 13 mg/dL (23-92) L 08/04/17 06:30 Amylase 12 U/L (29-103) L 08/02/17 13:43 Lipase 4 U/L (11-82) L 08/02/17 13:43 TSH 3.74 uIU/ml (0.34-5.60) 08/04/17 06:30 Stool Occult Blood POSITIVE (NEGATIVE) H 08/03/17 17:50 Random Vancomycin 15.9 ug/mL (5.0-40.0) 08/25/17 07:30 Hepatitis A IgM Ab Negative (Negative) 08/08/17 08:15 Hep Bs Antigen Negative (Negative) 08/08/17 08:15 Hep B Core IgM Ab Negative (Negative) 08/08/17 08:15 Hepatitis C Antibody <0.1 s/co ratio (0.0-0.9) 08/08/17 08:15 Blood Type A POSITIVE 08/24/17 08:30 Antibody Screen POSITIVE 08/24/17 08:30 Antibody Identification Anti-K 08/24/17 08:30 NEVILLE, IgG Interpret NEGATIVE 08/15/17 07:50 Crossmatch See Detail 08/24/17 08:30 - Physical Exam Vitals and I&O: Vital Signs Temp 97.8 F 08/25/17 13:00 Pulse 84 08/25/17 14:25 Resp 18 08/25/17 13:00 BP 101/23 08/25/17 13:30 Pulse Ox 100 08/25/17 14:25 Intake & Output 08/24/17 08/25/17 08/25/17 18:59 06:59 18:59 Intake Total 1576.66 1858.002 258 Output Total 0 Balance 1576.66 1858.002 258 Weight (lbs) 107.048 kg 106.141 kg Intake: Intake, IV Amount 506.66 1208.002 258 Albumin 25% 25gm/100mL 25 100 gm In 100 ml @ 50 mls/hr IV X1 ONE Rx#:[id number] Norepinephrine 8 mg In 456.66 508.002 258 Sodium Chloride 0.9% 250 ml @ 18 MCG/MIN 34.83 mls /hr IV TITR PRN Rx#: [id number] Piperacillin Sodium/ 50 50 Tazobact 2.25 gm In Sodium Chloride 0.9% 50 ml @ 100 mls/hr IV Q6HR [facility] Rx#:[id number] Piperacillin Sodium/ 50 Tazobact 2.25 gm In Sodium Chloride 0.9% 50 ml @ 100 mls/hr IV Q8HR [facility] Rx#:[id number] Vancomycin HCl 1.5 gm In 500 Sodium Chloride 0.9% 500 ml @ 250 mls/hr IV 1800 ONE Rx#:[id number] Tube Feeding 720 550 Blood Product 250 Albumin 100 Other 100 Output: Urine 0 Other: # Bowel Movements 1 0 Stool Characteristics Liquid Brown Black Active Medications: Current Medications Acetaminophen (Tylenol) 650 mg GT DAILY [facility] Stop: 10/20/17 08:59 Last Admin: 08/25/17 09:18 Dose: 650 mg Albuterol/Ipratropium (Duoneb Neb) 3 ml HHN Q4HRT [facility] Stop: 10/19/17 10:59 Last Admin: 08/25/17 11:00 Dose: Not Given Amiodarone HCl (Cordarone) 200 mg GT Q12H [facility] Stop: 10/20/17 10:59 Last Admin: 08/25/17 11:30 Dose: 200 mg Ascorbic Acid (Vitamin C) 500 mg PO DAILY [facility] Stop: 10/20/17 08:59 Last Admin: 08/25/17 09:19 Dose: 500 mg Aspirin (Aspirin Chewable) 81 mg PO DAILY [facility] Stop: 10/20/17 08:59 Last Admin: 08/25/17 09:19 Dose: 81 mg Atorvastatin Calcium (Lipitor) 40 mg GT DAILY [facility] PRN Reason: Protocol Stop: 10/20/17 08:59 Last Admin: 08/25/17 09:19 Dose: 40 mg Bisacodyl (Dulcolax 10 Mg Supp) 10 mg RC Q72HR PRN PRN Reason: if MOM ineffective Stop: 10/19/17 11:29 Chlorhexidine Gluconate (Peridex) 15 ml MM 0800,1999 [facility] Stop: 10/19/17 19:59 Last Admin: 08/25/17 08:35 Dose: 15 ml Cholecalciferol (Vitamin D3) 1,000 iu PO DAILY [facility] Stop: 10/20/17 08:59 Last Admin: 08/25/17 09:16 Dose: 1,000 iu Diltiazem HCl (Cardizem) 20 mg IV Q4HR PRN PRN Reason: HR ABOVE 120 Stop: 09/13/17 11:59 Docusate Sodium (Colace) 100 mg PO DAILY [facility] Stop: 10/20/17 08:59 Last Admin: 08/25/17 09:19 Dose: 100 mg Levofloxacin (Levaquin Pb) 250 mg in 50 mls @ 50 mls/hr IV Q48HR [facility] Stop: 10/18/17 08:59 Last Admin: 08/25/17 08:20 Dose: 50 mls/hr Dopamine HCl/Dextrose (Dopamine) 400 mg in 250 mls @ 0 mls/hr IV TITR PRN; Protocol; 0 MCG/KG/MIN PRN Reason: BP MAINTENANCE (PER PROTOCOL) Stop: 10/19/17 11:28 Norepinephrine Bitartrate 8 mg (/ Sodium Chloride) 258 mls @ 34.83 mls/hr IV TITR PRN; Protocol; 18 MCG/MIN PRN Reason: BP MAINTENANCE (PER PROTOCOL) Stop: 10/19/17 11:09 Last Admin: 08/25/17 10:54 Dose: 22 mcg/min, 42.57 mls/hr Piperacillin Sod/Tazobactam (Sod 2.25 gm/ Sodium Chloride) 50 mls @ 100 mls/hr IV Q8HR [facility] Stop: 10/23/17 20:59 Last Admin: 08/25/17 12:21 Dose: 100 mls/hr Phenylephrine HCl 10 mg/ (Sodium Chloride) 250 mls @ 0 mls/hr IV TITR [facility]; Per Protocol PRN Reason: Protocol Stop: 10/24/17 10:29 Insulin Aspart (Novolog Insulin Sliding Scale) 0 units SUBQ Q6HR [facility] PRN Reason: Protocol Stop: 10/19/17 11:59 Last Admin: 08/25/17 12:27 Dose: 4 units Insulin Detemir (Levemir Insulin) 16 units SUBQ HS [facility] PRN Reason: Protocol Stop: 10/19/17 20:59 Last Admin: 08/24/17 20:51 Dose: 16 units Lactobacillus Rhamnosus (Culturelle 15b) 1 each PO DAILY [facility] Stop: 10/20/17 08:59 Last Admin: 08/25/17 09:19 Dose: 1 each Lorazepam (Ativan) 2 mg IVP Q4HR PRN; Protocol PRN Reason: Agitation Stop: 10/15/17 11:49 Last Admin: 08/25/17 09:30 Dose: 2 mg Magnesium Hydroxide (Milk Of Magnesia) 30 ml PO Q72HR PRN PRN Reason: Constipation Stop: 10/19/17 11:44 Mirtazapine (Remeron) 15 mg GT HS [facility] PRN Reason: Protocol Stop: 10/19/17 20:59 Last Admin: 08/24/17 21:00 Dose: 15 mg Miscellaneous (Probiotic Screen) 1 ea MC PRN PRN PRN Reason: PROTOCOL Stop: 10/22/17 10:29 Miscellaneous (Vancomycin Iv Per Pharmacy) 1 ea MC PRN [facility] Stop: 10/23/17 16:59 Multivitamins/Vitamin C (Theragran) 1 tab PO DAILY [facility] Stop: 10/20/17 08:59 Last Admin: 08/25/17 09:19 Dose: 1 tab Ondansetron HCl (Zofran) 4 mg IV Q6H PRN PRN Reason: Nausea / Vomiting Stop: 10/19/17 11:40 Pantoprazole Sodium (Protonix) 40 mg IVP DAILY [facility] Stop: 10/20/17 08:59 Last Admin: 08/25/17 09:16 Dose: 40 mg Simethicone (Mylicon) 80 mg GT Q6HR PRN PRN Reason: Gas Stop: 10/19/17 11:59 Sodium Phosphate (Fleet Enema) 135 ml RC PRN PRN PRN Reason: If MOM/Dulcolax ineffective Stop: 10/19/17 11:29 Zinc Sulfate (Zinc Sulfate) 220 mg PO DAILY [facility] Stop: 10/20/17 08:59 Last Admin: 08/25/17 09:19 Dose: 220 mg General: Alert, No acute distress (scattered rhonchi) HEENT: Atraumatic, PERRLA, EOMI, Mucous membr. moist/pink Neck: Supple, Other (TRACH) Cardiovascular: Regular rate Lungs: Other (coarse rhonchi) Abdomen: Bowel sounds, Soft, Other (INTACT GT) Extremities: Edema (upper wxtrmities), Other (upper ext) Neurological: Sensation intact Skin: no Rash Psych/Mental Status: Mood NL - Procedures Procedures: Procedures Procedure Code Date BLOOD TRANSFUSION SERVICE 48631 08/02/17 EXCISION OF STOMACH, ENDO, DIAGN [id number] 07/10/17 INSPECTION OF LOWER INTESTINAL TRACT, ENDO [id number] 07/10/17 PERFORMANCE OF URINARY FILTRATION, <6 HRS/DAY [id number] 07/10/17 RESPIRATORY VENTILATION, GREATER THAN 96 CONSECUTIVE HOURS [id number] 08/02/17 TRANSFUSE NONAUT RED BLOOD CELLS IN PERIPH VEIN, PERC 20201D7 08/02/17 Assessment/Plan - Assessment Assessment: 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/L UE Edema, Cellulitis Shock Sepsis RF on Vent Acute on Chronic Decomp CHF G (-) Septicemia A. fib to V. tach Severe acute anemia 2/2 vaginal bleed - Plan Plan: Lab - Result Diagrams 08/04/17 06:30 08/04/17 06:30 Current Medications Acetaminophen (Tylenol 650mg/20.3ml Suspension) 650 mg GT DAILY [facility] Stop: 10/03/17 08:59 Last Admin: 08/04/17 09:18 Dose: 650 mg Albuterol/Ipratropium (Duoneb Neb) 3 ml HHN Q4HRT [facility] Stop: 10/02/17 10:59 Last Admin: 08/04/17 11:25 Dose: 3 ml Ascorbic Acid (Vitamin C) 500 mg PO DAILY [facility] Stop: 10/03/17 08:59 Last Admin: 08/04/17 09:18 Dose: 500 mg Aspirin (Aspirin Chewable) 81 mg GT DAILY [facility] Stop: 10/03/17 08:59 Last Admin: 08/04/17 09:18 Dose: 81 mg Atorvastatin Calcium (Lipitor) 40 mg GT HS [facility] PRN Reason: Protocol Stop: 10/02/17 20:59 Last Admin: 08/03/17 20:19 Dose: 40 mg Bisacodyl (Dulcolax 10 Mg Supp) 10 mg RC Q72HR PRN PRN Reason: IF MOM INEFFECTIVE Stop: 10/02/17 14:13 Bisacodyl (Dulcolax 10 Mg Supp) 10 mg RC PRN PRN PRN Reason: IF MOM INEFFECTIVE Stop: 10/02/17 14:13 Chlorhexidine Gluconate (Peridex) 15 ml MM 0800,2000 [facility] Stop: 10/02/17 07:59 Last Admin: 08/04/17 08:00 Dose: 15 ml Cholecalciferol (Vitamin D3) 1,000 iu GT DAILY [facility] Stop: 10/03/17 08:59 Last Admin: 08/04/17 09:18 Dose: 1,000 iu Diltiazem HCl (Cardizem) 5 mg IVP Q4H PRN PRN Reason: INCREASE HEART RATE Stop: 10/01/17 21:59 Last Admin: 08/03/17 01:38 Dose: 5 mg Docusate Sodium (Colace) 100 mg PO DAILY [facility] Stop: 10/03/17 08:59 Last Admin: 08/04/17 09:18 Dose: 100 mg Heparin Sodium (Porcine) (Heparin) 5,000 units HD UD [facility] Stop: 08/05/17 08:59 Last Admin: 08/04/17 09:19 Dose: Not Given Fluconazole (Diflucan) 200 mg in 100 mls @ 100 mls/hr IV Q24HR [facility] Stop: 10/02/17 14:59 Last Infusion: 08/03/17 15:40 Dose: Infused Meropenem 500 mg/ Sodium (Chloride) 100 mls @ 100 mls/hr IV Q24H [facility] Stop: 10/02/17 12:59 Last Admin: 08/04/17 13:17 Dose: 100 mls/hr Dopamine HCl/Dextrose (Dopamine) 400 mg in 250 mls @ 0 mls/hr IV TITR PRN; Protocol; Per Protocol PRN Reason: BP MAINTENANCE (PER PROTOCOL) Stop: 10/02/17 07:47 Norepinephrine Bitartrate 4 mg (/ Dextrose) 254 mls @ 0 mls/hr IV TITR PRN; Protocol; Per Protocol PRN Reason: BP MAINTENANCE (PER PROTOCOL) Stop: 10/02/17 08:31 Last Admin: 08/03/17 23:47 Dose: 4 mcg/min, 15.24 mls/hr Colistimethate Sodium 80 mg/ (Sodium Chloride) 100 mls @ 100 mls/hr IV Q36H [facility] Stop: 10/02/17 20:59 Last Infusion: 08/03/17 21:20 Dose: Infused Insulin Aspart (Novolog Insulin Sliding Scale) 0 units SUBQ Q6HR [facility] PRN Reason: Protocol Stop: 10/02/17 00:00 Last Admin: 08/04/17 11:30 Dose: 6 units Lorazepam (Ativan) 1 mg IVP Q2HR PRN; Protocol PRN Reason: Restlessness Stop: 10/01/17 21:18 Last Admin: 08/04/17 01:05 Dose: 1 mg Magnesium Hydroxide (Milk Of Magnesia) 30 ml GT Q72H PRN PRN Reason: NO BM FOR THREE DAYS Stop: 10/02/17 14:13 Mirtazapine (Remeron) 15 mg GT HS [facility] PRN Reason: Protocol Stop: 10/02/17 20:59 Last Admin: 08/03/17 20:19 Dose: 15 mg Miscellaneous (Vancomycin Iv Per Pharmacy) 1 ea PRN PRN PRN Reason: PROTOCOL Stop: 10/01/17 20:42 Miscellaneous (Zosyn Iv Per Pharmacy) 1 ea PRN PRN PRN Reason: PROTOCOL Stop: 10/01/17 20:42 Multivitamins/Vitamin C (Theragran) 1 tab PO DAILY [facility] Stop: 10/03/17 08:59 Last Admin: 08/04/17 09:18 Dose: 1 tab Ondansetron HCl (Zofran Odt) 4 mg PO Q6HR PRN PRN Reason: Nausea / Vomiting Stop: 10/02/17 14:13 Pantoprazole Sodium (Protonix) 40 mg IVP DAILY [facility] Stop: 10/02/17 08:59 Last Admin: 08/04/17 09:18 Dose: 40 mg Simethicone (Mylicon) 80 mg GT Q6H PRN PRN Reason: GAS PAIN Stop: 10/02/17 14:13 Sodium Phosphate (Fleet Enema) 118 ml RC PRN PRN PRN Reason: IF MOM/DULCOLAX INEFFECTIVE Stop: 10/02/17 14:13 Temazepam (Restoril) 15 mg GT HS PRN; Protocol PRN Reason: Insomnia Stop: 10/02/17 14:13 Last Admin: 08/03/17 20:19 Dose: 15 mg Zinc Sulfate (Zinc Sulfate) 220 mg GT DAILY [facility] Stop: 10/03/17 08:59 Last Admin: 08/04/17 09:18 Dose: 220 Lab - Result Diagrams 08/25/17 07:30 08/25/17 07:30 pt. dialyzed yesterday & tolerated it well CXR still showed persistent b/l effusions, CHF, left > right replace K f/u electrolytes. cbc Reccurence of shock, on levo 24 mcg, Amiodarone BS low, monitor closely, hold Levemir, continue S/S wbc up to 17.6 reschedule for HD in am due to persistent CHF still lo Hgb/Hct due to severe vaginal bleed for transfusion another 2 U PRBC w/ dialysis if left AVF clotted request placement of sandor cath Nutritional Asmnt/Malnutr-PDOC - Dietary Evaluation Malnutrition Findings (Please click <Entered> for more info): Nutritional Asmnt/Malnutrition Start: 08/05/17 15: 53 Text: Status: Complete Freq: Document 08/05/17 15:53 LCHENG (Rec: 08/05/17 16:19 LCHENG [email or web address]) Nutritional Asmnt/Malnutrition Patient General Information Nutritional Screening High Risk Diagnosis sepsis, respiratory failure, ESRD Pertinent Medical Hx/Surgical Hx ESRD on HD, respiratory failure with tracheostomy, dysphagia, a fib, anemia, HTN, GERD Subjective Information Pt on vent, not able to interview. Pt was on TF Novosource Renal 30ml/hr continuous, NPO today for surgery. Pt has dialysis ordred per nurse note. Current Diet Order/ Nutrition Support NPO on 08/05 Pertinent Medications vit C, vit D3, colace, novolog , remeron, theragran, protonix , zinc Pertinent Labs 08/05 Na 134, K 3.6, Cl 102, BUN 77, Cr 4.2, Glucose 216, POC 224-233 08/02 A1c 7.7 Nutritional Hx/Data Height 1.6 m Height (Calculated Centimeters) 160.0 Current Weight (lbs) 87.543 kg Weight (Calculated Kilograms) 87.5 Weight (Calculated Grams) 19445.3 [place] Body Weight 115 Body Mass Index (BMI) 34.2 Weight Status Obese GI Symptoms GI Symptoms None Last BM 08/04 Difficult in: None Skin Integrity/Comment: reddened to left/right inner thigh, right lateral index finger, right/left arm; skin tear to left abdominal fold; pressure area to coccy/sacral Estimated Nutritional Goals BEE in Kcals: Adj wt of IBW Calories/Kcals/Kg 30-35 adj wt 61kg Kcals Calculated 8214-1147 Protein: Adj wt of IBW Protein g/k.2-1.4 Protein Calculated 73-85 Fluid: ml 1830-2135ml (1ml/kcal) Nutritional Problem 1. Problem Problem altered nutrition related lab values Etiology hx of ESRD, endocrine dysfunction Signs/Symptoms: BUN 77, Cr 4.2, Glucose 216, POC 224-233, A1c 7.7 Malnutrition Alert Protein-Calorie Malnutrition N/A Is there a minimum of two criteria No selected? Query Text:Check all the applicable criteria. A minimum of two criteria are recommended for diagnosis of either severe or non-severe malnutrition. Intervention/Recommendation Comments 1. Resume TF Novosource Renal 30ml/hr continuous as ordered. increase to goal rate of 40ml /hr continuous as tolerated. This will provide 1920kcal, 87g protein and 688ml free water, meeting 100% of nutritional needs 2. Monitor TF rate, tolerance, wt weekly, skin integrity and labs 3. F/U as high risk in 2-3 days, 08/07-08/08 Expected Outcomes/Goals Expected Outcomes/Goals 1. Pt to meet at least 75% of nutritional needs via nutrition support with tolerance 2. Wt stability, skin to remain intact, labs to approach WNL.
[2017-08-25] MEDS: Insulin Detemir 100 units/mL 10mL Vial SUBQ SCH (20:49)
[2017-08-25 21:11] LABS: HEMOGLOBIN 8.3 gm/dL (12-16); MEAN CELL VOLUME 86.5 fl (81-100); MEAN CORPUSCULAR HEMOGLOBIN 29.6 pg (27.0-31.0); MEAN PLATELET VOLUME 10.4 fl; PLATELET COUNT 157 Th/cmm (150-400); RED CELL DISTRIBUTION WIDTH 14.8 % (11.5-20.0)
[2017-08-25 21:25] LABS: HEMATOCRIT 24.2 % (41.0-60); MEAN CORPUSCULAR HGB CONC 34.3 pg (28.0-36.0)
[2017-08-25 21:26] LABS: WHITE BLOOD COUNT 19.3 Th/cmm (4.8-10.8)
[2017-08-25 21:37] LABS: INR 1.11 (0.5-1.4); PROTHROMBIN TIME (TEST) 11.6 SECONDS (9.5-11.5)
[2017-08-25 21:44] LABS: MANUAL DIFF REQUIRED? YES; TOTAL CELLS COUNTED 100
[2017-08-25 21:47] LABS: BAND NEUTROPHILE 1 % (0-10); BASOPHIL 0 % (0-3); EOSINOPHIL 1 % (0-5); LYMPHOCYTE 5 % (20-50); MONOCYTE 5 % (2-10); NEUTROPHILS 88 % (40-80)
[2017-08-26] MEDS: INSULIN ASPART SLIDING SCALE 100 UNITS/ML UNIT SUBQ SCH ×4 (00:20→17:40)
[2017-08-26] MEDS: Albuterol/Ipratropium Neb 3 ML AERS HHN SCH ×6 (03:27→22:24)
[2017-08-26 06:39] LABS: MEAN PLATELET VOLUME 10.7 fl; RED CELL DISTRIBUTION WIDTH 14.6 % (11.5-20.0)
[2017-08-26 06:58] LABS: RED BLOOD COUNT 2.18 Mil/cmm (3.80-5.20)
[2017-08-26 06:59] LABS: MEAN CELL VOLUME 93.4 fl (81-100); MEAN CORPUSCULAR HEMOGLOBIN 34.3 pg (27.0-31.0); MEAN CORPUSCULAR HGB CONC 36.7 pg (28.0-36.0); PLATELET COUNT 159 Th/cmm (150-400)
[2017-08-26 07:03] LABS: ALB/GLOB RATIO 0.8 (1.0-1.8); ALBUMIN 2.7 gm/dL (3.7-5.3); ALKALINE PHOSPHATASE 70 U/L (34-104); ANION GAP 18.1 (7.0-16.0); BILIRUBIN,TOTAL 0.4 mg/dL (0.3-1.0); BUN - UREA NITROGEN 55 mg/dL (7-25); CALCIUM SERUM 8.5 mg/dL (8.6-10.3); CARBON DIOXIDE 22.2 mEq/L (21.0-31.0); CHLORIDE 102 mEq/L (98-107); CREATININE - SERUM 2.2 mg/dL (0.6-1.2); GLUCOSE 175 mg/dL (70-105); HEMATOCRIT 20.4 % (41.0-60); HEMOGLOBIN 7.5 gm/dL (12-16); POTASSIUM SERUM 3.3 mEq/L (3.5-5.1); SGOT 34 U/L (13-39); SGPT/ALT 14 U/L (7-52); SODIUM SERUM 139 mEq/L (136-145); TOTAL PROTEIN,SERUM 6.3 gm/dL (6.0-8.3)
[2017-08-26 07:04] LABS: % BASOPHILS 0.8 % (0.0-2.0); % EOSINOPHILS 2.1 % (0.0-5.0); % LYMPHOCYTES 3.3 % (20.0-50.0); % MONOCYTES 10.4 % (2.0-10.0); % NEUTROPHILS 83.4 % (40.0-80.0); BASOPHILE ABSOLUTE 0.2 Th/cumm (0-0.2); EOSINOPHILE ABSOLUTE 0.4 Th/cmm (0.1-0.4); LYMPHOCYTE ABSOLUTE 0.7 Th/cmm (1.5-3.0); MONOCYTE ABSOLUTE 2.1 Th/cmm (0.3-1.0); WHITE BLOOD COUNT 20.4 Th/cmm (4.8-10.8)
[2017-08-26] MEDS: Chlorhexidine Gluconate 0.12% 15mL Mouthwash MM SCH ×2 (08:30→19:32)
--- NOTE | 2017-08-26 08:51 | Diagnostic Imaging Report ---
CHEST X-RAY: AP view INDICATION: Pneumonia COMPARISON: 08/24/2017 FINDINGS: CHF is seen bilateral effusions, left larger than right, with overall slight improvement since prior exam. Cardiomegaly is noted. Tracheostomy tube is stable. IMPRESSION: CHF with bilateral effusions left larger than right. Overall there has been slight improvement since prior exam. Bilateral pulmonary infiltrates are also noted. Cardiomegaly.
[2017-08-26] MEDS: Dextrose 5% 1,000 ML IV SCH (09:00)
[2017-08-26] MEDS: Aspirin 81mg Chewable Tab PO SCH (09:30)
[2017-08-26] MEDS: Lactobacillus Rhamnosus GG 15 Billion CFU CAP.SPRINK PO SCH (09:30)
[2017-08-26] MEDS: Multivitamin Tab PO SCH (09:31)
--- NOTE | 2017-08-26 09:36 | GI Progress Note ---
Subjective - Review of Systems Service Date: 08/26/17 Subjective: RN has noted maroon blood pre rectum since yesterday. Hgb down despite 4u transfusion Objective - Results Result Diagrams: 08/26/17 06:05 08/26/17 06:05 Recent Labs: Laboratory Last Values WBC 20.4 Th/cmm (4.8-10.8) H* 08/26/17 06:05 RBC 2.18 Mil/cmm (3.80-5.20) L 08/26/17 06:05 Hgb 7.5 gm/dL (12-16) L* 08/26/17 06:05 Hct 20.4 % (41.0-60) L* 08/26/17 06:05 MCV 93.4 fl (81-100) 08/26/17 06:05 MCH 34.3 pg (27.0-31.0) H 08/26/17 06:05 MCHC Differential 36.7 pg (28.0-36.0) H 08/26/17 06:05 RDW 14.6 % (11.5-20.0) 08/26/17 06:05 Plt Count 159 Th/cmm (150-400) 08/26/17 06:05 MPV 10.7 fl 08/26/17 06:05 Neutrophils % 83.4 % (40.0-80.0) H 08/26/17 06:05 Band Neutrophils % 1 % (0-10) 08/25/17 20:00 Lymphocytes % 3.3 % (20.0-50.0) L 08/26/17 06:05 Monocytes % 10.4 % (2.0-10.0) H 08/26/17 06:05 Eosinophils % 2.1 % (0.0-5.0) 08/26/17 06:05 Basophils % 0.8 % (0.0-2.0) 08/26/17 06:05 Neutrophils (Manual) 88 % (40-80) H 08/25/17 20:00 Lymphocytes 5 % (20-50) L 08/25/17 20:00 Monocytes 5 % (2-10) 08/25/17 20:00 Eosinophils 1 % (0-5) 08/25/17 20:00 Basophils 0 % (0-3) 08/25/17 20:00 Hypochromia 1+ 08/02/17 15:37 Platelet Estimate ADEQUATE (NORMAL) 08/24/17 07:15 Platelet Morphology NORMAL (NORMAL) 08/20/17 04:45 Anisocytosis 1+ 08/07/17 05:45 Crenated Cell 2+ 08/02/17 15:37 RBC Morph Micro Appear ABNORMAL (NORMAL) 08/02/17 15:37 PT 11.6 SECONDS (9.5-11.5) H 08/25/17 21:06 INR 1.11 (0.5-1.4) 08/25/17 21:06 PTT (Actin FS) 32.3 SECONDS (26.0-38.0) 08/25/17 21:06 Specimen Source Arterial 08/03/17 08:58 Sample Site Right Radial 08/03/17 08:58 pH 7.42 (7.35-7.45) 08/03/17 08:58 pCO2 37.0 mmHg (35.0-45.0) 08/03/17 08:58 pO2 204.0 mmHg (80.0-100.0) H 08/03/17 08:58 HCO3 24.8 mEq/L (20.0-26.0) 08/03/17 08:58 Base Excess -0.2 mEq/L (-3.0-3.0) 08/03/17 08:58 O2 Saturation 100.0 % (92.0-100.0) 08/03/17 08:58 Rhett Test Positive 08/03/17 08:58 Vent Rate 12 08/03/17 08:58 Inspired O2 60 08/03/17 08:58 Tidal Volume 450 08/03/17 08:58 PEEP 5 08/03/17 08:58 Pressure (ins/psv/peep) NA 08/03/17 08:58 Critical Value LZHANG 08/03/17 08:58 Sodium 139 mEq/L (136-145) 08/26/17 06:05 Potassium 3.3 mEq/L (3.5-5.1) L 08/26/17 06:05 Chloride 102 mEq/L (98-107) 08/26/17 06:05 Carbon Dioxide 22.2 mEq/L (21.0-31.0) 08/26/17 06:05 Anion Gap 18.1 (7.0-16.0) H 08/26/17 06:05 BUN 55 mg/dL (7-25) H 08/26/17 06:05 Creatinine 2.2 mg/dL (0.6-1.2) H 08/26/17 06:05 Est GFR ( Amer) TNP 08/26/17 06:05 Est GFR (Non-Af Amer) TNP 08/26/17 06:05 BUN/Creatinine Ratio 25.0 08/26/17 06:05 Glucose 175 mg/dL (70-105) H 08/26/17 06:05 POC Glucose 160 MG/DL (70 - 105) H 08/26/17 05:57 Hemoglobin A1c % 7.7 % (4.0-6.0) H 08/02/17 15:37 Whole Bld Lactic Acid 1.97 mmol/L (0.60-1.99) 08/02/17 13:49 Calcium 8.5 mg/dL (8.6-10.3) L 08/26/17 06:05 Magnesium 1.6 mg/dL (1.9-2.7) L 08/24/17 07:15 Iron 10 ug/dL (27-139) L 08/02/17 13:56 TIBC 135 ug/dL (250-450) L 08/02/17 13:56 Iron Saturation 7 % (15-55) L 08/02/17 13:56 Unsaturated IBC 125 ug/dL (118-369) 08/02/17 13:56 Ferritin 588 ng/mL (15-150) H 08/02/17 13:56 Total Bilirubin 0.4 mg/dL (0.3-1.0) 08/26/17 06:05 Direct Bilirubin 0.09 mg/dL (0.0-0.2) 08/02/17 13:57 AST 34 U/L (13-39) 08/26/17 06:05 ALT 14 U/L (7-52) 08/26/17 06:05 Alkaline Phosphatase 70 U/L (34-104) 08/26/17 06:05 Troponin I 0.10 ng/mL (0.01-0.05) H* D 08/20/17 17:00 B-Natriuretic Peptide 839.0 pg/mL (5.0-100.0) H 08/19/17 04:58 Total Protein 6.3 gm/dL (6.0-8.3) 08/26/17 06:05 Albumin 2.7 gm/dL (3.7-5.3) L 08/26/17 06:05 Globulin 3.6 gm/dL 08/26/17 06:05 Albumin/Globulin Ratio 0.8 (1.0-1.8) L 08/26/17 06:05 Triglycerides 132 mg/dL (<150) 08/04/17 06:30 Cholesterol 55 mg/dL (<200) 08/04/17 06:30 LDL Cholesterol Direct 16 mg/dL (75-193) L 08/04/17 06:30 HDL Cholesterol 13 mg/dL (23-92) L 08/04/17 06:30 Amylase 12 U/L (29-103) L 08/02/17 13:43 Lipase 4 U/L (11-82) L 08/02/17 13:43 TSH 3.74 uIU/ml (0.34-5.60) 08/04/17 06:30 Stool Occult Blood POSITIVE (NEGATIVE) H 08/03/17 17:50 Random Vancomycin 25.7 ug/mL (5.0-40.0) 08/26/17 06:05 Hepatitis A IgM Ab Negative (Negative) 08/08/17 08:15 Hep Bs Antigen Negative (Negative) 08/08/17 08:15 Hep B Core IgM Ab Negative (Negative) 08/08/17 08:15 Hepatitis C Antibody <0.1 s/co ratio (0.0-0.9) 08/08/17 08:15 Blood Type A POSITIVE 08/24/17 08:30 Antibody Screen POSITIVE 08/24/17 08:30 Antibody Identification Anti-K 08/24/17 08:30 NEVILLE, IgG Interpret NEGATIVE 08/15/17 07:50 Crossmatch See Detail 08/24/17 08:30 - Physical Exam Vitals and I&O: Vital Signs Temp 99.1 F 08/26/17 04:00 Pulse 95 08/26/17 08:58 Resp 22 08/26/17 06:00 BP 76/57 08/26/17 06:45 Pulse Ox 100 08/26/17 08:58 Intake & Output 08/25/17 08/26/17 08/26/17 18:59 06:59 18:59 Intake Total 2666.000 1166.000 50 Output Total 500 Balance 2166.000 1166.000 50 Weight (lbs) 106.764 kg 106.821 kg Intake: Intake, IV Amount 1116.000 566.000 50 Levofloxacin 250mg/50mL 50 250 mg In 50 ml @ 50 mls/ hr IV Q48HR [facility] Rx#: [id number] Norepinephrine 8 mg In 516 516.000 Sodium Chloride 0.9% 250 ml @ 18 MCG/MIN 34.83 mls /hr IV TITR PRN Rx#: [id number] Piperacillin Sodium/ 50.000 50 50 Tazobact 2.25 gm In Sodium Chloride 0.9% 50 ml @ 100 mls/hr IV Q8HR [facility] Rx#:[id number] Tube Feeding 600 600 Blood Product 500 Other 450 Output: Urine 0 Hemodialysis 500 Other: # Bowel Movements 2 2 Stool Characteristics Liquid Liquid Bloody Bloody Active Medications: Current Medications Acetaminophen (Tylenol) 650 mg GT DAILY [facility] Stop: 10/20/17 08:59 Last Admin: 08/26/17 09:18 Dose: 650 mg Albuterol/Ipratropium (Duoneb Neb) 3 ml HHN Q4HRT [facility] Stop: 10/19/17 10:59 Last Admin: 08/26/17 07:59 Dose: 3 ml Amiodarone HCl (Cordarone) 200 mg GT Q12H [facility] Stop: 10/20/17 10:59 Last Admin: 08/25/17 23:50 Dose: 200 mg Ascorbic Acid (Vitamin C) 500 mg PO DAILY [facility] Stop: 10/20/17 08:59 Last Admin: 08/26/17 09:30 Dose: Not Given Aspirin (Aspirin Chewable) 81 mg PO DAILY [facility] Stop: 10/20/17 08:59 Last Admin: 08/26/17 09:30 Dose: Not Given Atorvastatin Calcium (Lipitor) 40 mg GT DAILY [facility] PRN Reason: Protocol Stop: 10/20/17 08:59 Last Admin: 08/26/17 09:30 Dose: Not Given Bisacodyl (Dulcolax 10 Mg Supp) 10 mg RC Q72HR PRN PRN Reason: if MOM ineffective Stop: 10/19/17 11:29 Chlorhexidine Gluconate (Peridex) 15 ml MM 0800,2000 [facility] Stop: 10/19/17 19:59 Last Admin: 08/26/17 08:30 Dose: 15 ml Cholecalciferol (Vitamin D3) 1,000 iu PO DAILY [facility] Stop: 10/20/17 08:59 Last Admin: 08/26/17 09:30 Dose: Not Given Diltiazem HCl (Cardizem) 20 mg IV Q4HR PRN PRN Reason: HR ABOVE 120 Stop: 09/13/17 11:59 Docusate Sodium (Colace) 100 mg PO DAILY [facility] Stop: 10/20/17 08:59 Last Admin: 08/26/17 09:30 Dose: Not Given Levofloxacin (Levaquin Pb) 250 mg in 50 mls @ 50 mls/hr IV Q48HR [facility] Stop: 10/18/17 08:59 Last Infusion: 08/25/17 09:20 Dose: Infused Dopamine HCl/Dextrose (Dopamine) 400 mg in 250 mls @ 0 mls/hr IV TITR PRN; Protocol; 0 MCG/KG/MIN PRN Reason: BP MAINTENANCE (PER PROTOCOL) Stop: 10/19/17 11:28 Norepinephrine Bitartrate 8 mg (/ Sodium Chloride) 258 mls @ 34.83 mls/hr IV TITR PRN; Protocol; 18 MCG/MIN PRN Reason: BP MAINTENANCE (PER PROTOCOL) Stop: 10/19/17 11:09 Last Admin: 08/26/17 05:19 Dose: 14 mcg/min, 27.09 mls/hr Piperacillin Sod/Tazobactam (Sod 2.25 gm/ Sodium Chloride) 50 mls @ 100 mls/hr IV Q8HR [facility] Stop: 10/23/17 20:59 Last Infusion: 08/26/17 07:40 Dose: Infused Phenylephrine HCl 10 mg/ (Sodium Chloride) 250 mls @ 0 mls/hr IV TITR [facility]; Per Protocol PRN Reason: Protocol Stop: 10/24/17 10:29 Vancomycin HCl 1.25 gm/ Sodium (Chloride) 250 mls @ 165 mls/hr IV Q24H [facility] Stop: 10/25/17 09:59 Last Admin: 08/26/17 09:28 Dose: 165 mls/hr Dextrose (D5w) 1,000 mls @ 50 mls/hr IV .Q20H [facility] Stop: 10/25/17 08:14 Last Admin: 08/26/17 09:00 Dose: 50 mls/hr Pantoprazole Sodium 80 mg/ (Sodium Chloride) 100 mls @ 10 mls/hr IV Q10H [facility] Stop: 10/25/17 09:14 Insulin Aspart (Novolog Insulin Sliding Scale) 0 units SUBQ Q6HR [facility] PRN Reason: Protocol Stop: 10/19/17 11:59 Last Admin: 08/26/17 06:09 Dose: 2 units Insulin Detemir (Levemir Insulin) 16 units SUBQ HS [facility] PRN Reason: Protocol Stop: 10/19/17 20:59 Last Admin: 08/25/17 20:49 Dose: 16 units Lactobacillus Rhamnosus (Culturelle 15b) 1 each PO DAILY [facility] Stop: 10/20/17 08:59 Last Admin: 08/26/17 09:30 Dose: Not Given Lorazepam (Ativan) 2 mg IVP Q4HR PRN; Protocol PRN Reason: Agitation Stop: 10/15/17 11:49 Last Admin: 08/26/17 00:33 Dose: 2 mg Magnesium Hydroxide (Milk Of Magnesia) 30 ml PO Q72HR PRN PRN Reason: Constipation Stop: 10/19/17 11:44 Mirtazapine (Remeron) 15 mg GT HS [facility] PRN Reason: Protocol Stop: 10/19/17 20:59 Last Admin: 08/25/17 20:50 Dose: 15 mg Miscellaneous (Probiotic Screen) 1 ea MC PRN PRN PRN Reason: PROTOCOL Stop: 10/22/17 10:29 Miscellaneous (Vancomycin Iv Per Pharmacy) 1 ea MC PRN [facility] Stop: 10/23/17 16:59 Multivitamins/Vitamin C (Theragran) 1 tab PO DAILY [facility] Stop: 10/20/17 08:59 Last Admin: 08/26/17 09:31 Dose: Not Given Ondansetron HCl (Zofran) 4 mg IV Q6H PRN PRN Reason: Nausea / Vomiting Stop: 10/19/17 11:40 Polyethylene Glycol/Electrolytes (Golytely) 4,000 ml PO X1 ONE Stop: 08/26/17 09:08 Simethicone (Mylicon) 80 mg GT Q6HR PRN PRN Reason: Gas Stop: 10/19/17 11:59 Sodium Phosphate (Fleet Enema) 135 ml RC PRN PRN PRN Reason: If MOM/Dulcolax ineffective Stop: 10/19/17 11:29 Zinc Sulfate (Zinc Sulfate) 220 mg PO DAILY [facility] Stop: 10/20/17 08:59 Last Admin: 08/26/17 09:31 Dose: Not Given General: Alert, No acute distress (scattered rhonchi) HEENT: Atraumatic, PERRLA, EOMI, Mucous membr. moist/pink Neck: Supple, Other (TRACH) Cardiovascular: Regular rate Lungs: Other (coarse rhonchi) Abdomen: Bowel sounds, Soft, Other (INTACT GT) Extremities: Edema (upper wxtrmities), Other (upper ext) Neurological: Sensation intact Skin: no Rash Psych/Mental Status: Mood NL - Procedures Procedures: Procedures Procedure Code Date BLOOD TRANSFUSION SERVICE 49331 08/02/17 EXCISION OF STOMACH, ENDO, DIAGN [id number] 07/10/17 INSPECTION OF LOWER INTESTINAL TRACT, ENDO [id number] 07/10/17 PERFORMANCE OF URINARY FILTRATION, <6 HRS/DAY [id number] 07/10/17 RESPIRATORY VENTILATION, GREATER THAN 96 CONSECUTIVE HOURS [id number] 08/02/17 TRANSFUSE NONAUT RED BLOOD CELLS IN PERIPH VEIN, PERC [id number] 08/02/17 Assessment/Plan - Assessment Assessment: # Sepsis # Dysphagia with G tube # GI bleed # Anemia EGD and colonoscopy performed in 07/2017 revealed gastritis and hemorrhoids. SBFT showed delayed transit but no lesion. At that time, it was recommended that the pt have a bleeding scan if she rebled. Now, she is again showing signs of GI bleed, more lower than upper, although brisk upper cannot be ruled out. We will get bleeding scan, but will also plan for repeat endoscopy given the severity of the bleed. Plan: - bleeding scan - 1u plt ordered now given she has received 4u pRBC - change protonix to gtt - plan for repeat EGD and colo tomorrow, but will need pt to be stable for endoscopy at that time (ie thoroughly transfused with hgb > 7) and hemodynamically stable - CBC cycle throughout the day, transfuse to keep hgb > 7
[2017-08-26] MEDS: Pantoprazole 80 MG in Sodium Chloride 0.9% 100 ML IV SCH ×2 (10:35→17:47)
--- NOTE | 2017-08-26 13:36 | General Progress Note ---
Subjective - Review of Systems Service Date: 08/26/17 Subjective: awake today, on vent Objective - Results Result Diagrams: 08/26/17 06:05 08/26/17 06:05 Recent Labs: Laboratory Last Values WBC 20.4 Th/cmm (4.8-10.8) H* 08/26/17 06:05 RBC 2.18 Mil/cmm (3.80-5.20) L 08/26/17 06:05 Hgb 7.5 gm/dL (12-16) L* 08/26/17 06:05 Hct 20.4 % (41.0-60) L* 08/26/17 06:05 MCV 93.4 fl (81-100) 08/26/17 06:05 MCH 34.3 pg (27.0-31.0) H 08/26/17 06:05 MCHC Differential 36.7 pg (28.0-36.0) H 08/26/17 06:05 RDW 14.6 % (11.5-20.0) 08/26/17 06:05 Plt Count 159 Th/cmm (150-400) 08/26/17 06:05 MPV 10.7 fl 08/26/17 06:05 Neutrophils % 83.4 % (40.0-80.0) H 08/26/17 06:05 Band Neutrophils % 1 % (0-10) 08/25/17 20:00 Lymphocytes % 3.3 % (20.0-50.0) L 08/26/17 06:05 Monocytes % 10.4 % (2.0-10.0) H 08/26/17 06:05 Eosinophils % 2.1 % (0.0-5.0) 08/26/17 06:05 Basophils % 0.8 % (0.0-2.0) 08/26/17 06:05 Neutrophils (Manual) 88 % (40-80) H 08/25/17 20:00 Lymphocytes 5 % (20-50) L 08/25/17 20:00 Monocytes 5 % (2-10) 08/25/17 20:00 Eosinophils 1 % (0-5) 08/25/17 20:00 Basophils 0 % (0-3) 08/25/17 20:00 Hypochromia 1+ 02/24/18 15:37 Platelet Estimate ADEQUATE (NORMAL) 08/24/17 07:15 Platelet Morphology NORMAL (NORMAL) 08/20/17 04:45 Anisocytosis 1+ 08/07/17 05:45 Crenated Cell 2+ 08/02/17 15:37 RBC Morph Micro Appear ABNORMAL (NORMAL) 08/02/17 15:37 PT 11.6 SECONDS (9.5-11.5) H 08/25/17 21:06 INR 1.11 (0.5-1.4) 08/25/17 21:06 PTT (Actin FS) 32.3 SECONDS (26.0-38.0) 08/25/17 21:06 Specimen Source Arterial 08/03/17 08:58 Sample Site Right Radial 08/03/17 08:58 pH 7.42 (7.35-7.45) 08/03/17 08:58 pCO2 37.0 mmHg (35.0-45.0) 08/03/17 08:58 pO2 204.0 mmHg (80.0-100.0) H 08/03/17 08:58 HCO3 24.8 mEq/L (20.0-26.0) 08/03/17 08:58 Base Excess -0.2 mEq/L (-3.0-3.0) 08/03/17 08:58 O2 Saturation 100.0 % (92.0-100.0) 08/03/17 08:58 Rhett Test Positive 08/03/17 08:58 Vent Rate 12 08/03/17 08:58 Inspired O2 60 08/03/17 08:58 Tidal Volume 450 08/03/17 08:58 PEEP 5 08/03/17 08:58 Pressure (ins/psv/peep) NA 08/03/17 08:58 Critical Value LZHANG 08/03/17 08:58 Sodium 139 mEq/L (136-145) 08/26/17 06:05 Potassium 3.3 mEq/L (3.5-5.1) L 08/26/17 06:05 Chloride 102 mEq/L (98-107) 08/26/17 06:05 Carbon Dioxide 22.2 mEq/L (21.0-31.0) 08/26/17 06:05 Anion Gap 18.1 (7.0-16.0) H 08/26/17 06:05 BUN 55 mg/dL (7-25) H 08/26/17 06:05 Creatinine 2.2 mg/dL (0.6-1.2) H 08/26/17 06:05 Est GFR ( Amer) TNP 08/26/17 06:05 Est GFR (Non-Af Amer) TNP 08/26/17 06:05 BUN/Creatinine Ratio 25.0 08/26/17 06:05 Glucose 175 mg/dL (70-105) H 08/26/17 06:05 POC Glucose 151 MG/DL (70 - 105) H 08/26/17 13:02 Hemoglobin A1c % 7.7 % (4.0-6.0) H 08/02/17 15:37 Whole Bld Lactic Acid 1.97 mmol/L (0.60-1.99) 08/02/17 13:49 Calcium 8.5 mg/dL (8.6-10.3) L 08/26/17 06:05 Magnesium 1.6 mg/dL (1.9-2.7) L 08/24/17 07:15 Iron 10 ug/dL (27-139) L 08/02/17 13:56 TIBC 135 ug/dL (250-450) L 08/02/17 13:56 Iron Saturation 7 % (15-55) L 08/02/17 13:56 Unsaturated IBC 125 ug/dL (118-369) 08/02/17 13:56 Ferritin 588 ng/mL (15-150) H 08/02/17 13:56 Total Bilirubin 0.4 mg/dL (0.3-1.0) 08/26/17 06:05 Direct Bilirubin 0.09 mg/dL (0.0-0.2) 08/02/17 13:57 AST 34 U/L (13-39) 08/26/17 06:05 ALT 14 U/L (7-52) 08/26/17 06:05 Alkaline Phosphatase 70 U/L (34-104) 08/26/17 06:05 Troponin I 0.10 ng/mL (0.01-0.05) H* D 08/20/17 17:00 B-Natriuretic Peptide 839.0 pg/mL (5.0-100.0) H 08/19/17 04:58 Total Protein 6.3 gm/dL (6.0-8.3) 08/26/17 06:05 Albumin 2.7 gm/dL (3.7-5.3) L 08/26/17 06:05 Globulin 3.6 gm/dL 08/26/17 06:05 Albumin/Globulin Ratio 0.8 (1.0-1.8) L 08/26/17 06:05 Triglycerides 132 mg/dL (<150) 08/04/17 06:30 Cholesterol 55 mg/dL (<200) 08/04/17 06:30 LDL Cholesterol Direct 16 mg/dL (75-193) L 08/04/17 06:30 HDL Cholesterol 13 mg/dL (23-92) L 08/04/17 06:30 Amylase 12 U/L (29-103) L 08/02/17 13:43 Lipase 4 U/L (11-82) L 08/02/17 13:43 TSH 3.74 uIU/ml (0.34-5.60) 08/04/17 06:30 Stool Occult Blood POSITIVE (NEGATIVE) H 08/03/17 17:50 Random Vancomycin 25.7 ug/mL (5.0-40.0) 08/26/17 06:05 Hepatitis A IgM Ab Negative (Negative) 08/08/17 08:15 Hep Bs Antigen Negative (Negative) 08/08/17 08:15 Hep B Core IgM Ab Negative (Negative) 08/08/17 08:15 Hepatitis C Antibody <0.1 s/co ratio (0.0-0.9) 08/08/17 08:15 Blood Type A POSITIVE 08/24/17 08:30 Antibody Screen POSITIVE 08/24/17 08:30 Antibody Identification Anti-K 08/24/17 08:30 NEVILLE, IgG Interpret NEGATIVE 08/15/17 07:50 Crossmatch See Detail 08/24/17 08:30 - Physical Exam Vitals and I&O: Vital Signs Temp 98.5 F 08/26/17 13:00 Pulse 91 08/26/17 13:26 Resp 18 08/26/17 13:00 BP 94/42 08/26/17 13:00 Pulse Ox 100 08/26/17 13:26 Intake & Output 08/25/17 08/26/17 08/26/17 18:59 06:59 18:59 Intake Total 2666.000 1166.000 50 Output Total 500 Balance 2166.000 1166.000 50 Weight (lbs) 106.764 kg 106.821 kg Intake: Intake, IV Amount 1116.000 566.000 50 Levofloxacin 250mg/50mL 50 250 mg In 50 ml @ 50 mls/ hr IV Q48HR [facility] Rx#: [id number] Norepinephrine 8 mg In 516 516.000 Sodium Chloride 0.9% 250 ml @ 18 MCG/MIN 34.83 mls /hr IV TITR PRN Rx#: [id number] Piperacillin Sodium/ 50.000 50 50 Tazobact 2.25 gm In Sodium Chloride 0.9% 50 ml @ 100 mls/hr IV Q8HR [facility] Rx#:[id number] Tube Feeding 600 600 Blood Product 500 Other 450 Output: Urine 0 Hemodialysis 500 Other: # Bowel Movements 2 2 Stool Characteristics Liquid Liquid Liquid Bloody Bloody Bloody Active Medications: Current Medications Acetaminophen (Tylenol) 650 mg GT DAILY [facility] Stop: 10/20/17 08:59 Last Admin: 08/26/17 09:18 Dose: 650 mg Albuterol/Ipratropium (Duoneb Neb) 3 ml HHN Q4HRT [facility] Stop: 10/19/17 10:59 Last Admin: 08/26/17 11:03 Dose: 3 ml Amiodarone HCl (Cordarone) 200 mg GT Q12H [facility] Stop: 10/20/17 10:59 Last Admin: 08/26/17 13:08 Dose: Not Given Ascorbic Acid (Vitamin C) 500 mg PO DAILY [facility] Stop: 10/20/17 08:59 Last Admin: 08/26/17 09:30 Dose: Not Given Aspirin (Aspirin Chewable) 81 mg PO DAILY [facility] Stop: 10/20/17 08:59 Last Admin: 08/26/17 09:30 Dose: Not Given Atorvastatin Calcium (Lipitor) 40 mg GT DAILY FOU[facility]IA PRN Reason: Protocol Stop: 10/20/17 08:59 Last Admin: 08/26/17 09:30 Dose: Not Given Bisacodyl (Dulcolax 10 Mg Supp) 10 mg RC Q72HR PRN PRN Reason: if MOM ineffective Stop: 10/19/17 11:29 Chlorhexidine Gluconate (Peridex) 15 ml MM 0800,1999 [facility] Stop: 10/19/17 19:59 Last Admin: 08/26/17 08:30 Dose: 15 ml Cholecalciferol (Vitamin D3) 1,000 iu PO DAILY [facility] Stop: 10/20/17 08:59 Last Admin: 08/26/17 09:30 Dose: Not Given Diltiazem HCl (Cardizem) 20 mg IV Q4HR PRN PRN Reason: HR ABOVE 120 Stop: 09/13/17 11:59 Docusate Sodium (Colace) 100 mg PO DAILY [facility] Stop: 10/20/17 08:59 Last Admin: 08/26/17 09:30 Dose: Not Given Dopamine HCl/Dextrose (Dopamine) 400 mg in 250 mls @ 0 mls/hr IV TITR PRN; Protocol; 0 MCG/KG/MIN PRN Reason: BP MAINTENANCE (PER PROTOCOL) Stop: 10/19/17 11:28 Norepinephrine Bitartrate 8 mg (/ Sodium Chloride) 258 mls @ 34.83 mls/hr IV TITR PRN; Protocol; 18 MCG/MIN PRN Reason: BP MAINTENANCE (PER PROTOCOL) Stop: 10/19/17 11:09 Last Admin: 08/26/17 05:19 Dose: 14 mcg/min, 27.09 mls/hr Piperacillin Sod/Tazobactam (Sod 2.25 gm/ Sodium Chloride) 50 mls @ 100 mls/hr IV Q8HR [facility] Stop: 10/23/17 20:59 Last Admin: 08/26/17 12:55 Dose: 100 mls/hr Phenylephrine HCl 10 mg/ (Sodium Chloride) 250 mls @ 0 mls/hr IV TITR FOUZIA; Per Protocol PRN Reason: Protocol Stop: 10/24/17 10:29 Vancomycin HCl 1.25 gm/ Sodium (Chloride) 250 mls @ 165 mls/hr IV Q24H [facility] Stop: 10/25/17 09:59 Last Admin: 08/26/17 09:28 Dose: 165 mls/hr Dextrose (D5w) 1,000 mls @ 50 mls/hr IV .Q20H [facility] Stop: 10/25/17 08:14 Last Admin: 08/26/17 09:00 Dose: 50 mls/hr Pantoprazole Sodium 80 mg/ (Sodium Chloride) 100 mls @ 10 mls/hr IV Q10H [facility] Stop: 10/25/17 10:59 Last Admin: 08/26/17 10:35 Dose: 10 mls/hr Insulin Aspart (Novolog Insulin Sliding Scale) 0 units SUBQ Q6HR FOUZIA PRN Reason: Protocol Stop: 10/19/17 11:59 Last Admin: 08/26/17 13:03 Dose: 2 units Insulin Detemir (Levemir Insulin) 16 units SUBQ HS FOUZIA PRN Reason: Protocol Stop: 10/19/17 20:59 Last Admin: 08/25/17 20:49 Dose: 16 units Lactobacillus Rhamnosus (Culturelle 15b) 1 each PO DAILY [facility] Stop: 10/20/17 08:59 Last Admin: 08/26/17 09:30 Dose: Not Given Lorazepam (Ativan) 2 mg IVP Q4HR PRN; Protocol PRN Reason: Agitation Stop: 10/15/17 11:49 Last Admin: 08/26/17 12:30 Dose: 2 mg Magnesium Hydroxide (Milk Of Magnesia) 30 ml PO Q72HR PRN PRN Reason: Constipation Stop: 10/19/17 11:44 Mirtazapine (Remeron) 15 mg GT HS [facility] PRN Reason: Protocol Stop: 10/19/17 20:59 Last Admin: 08/25/17 20:50 Dose: 15 mg Miscellaneous (Probiotic Screen) 1 ea MC PRN PRN PRN Reason: PROTOCOL Stop: 10/22/17 10:29 Miscellaneous (Vancomycin Iv Per Pharmacy) 1 ea MC PRN FOUZIA Stop: 10/23/17 16:59 Multivitamins/Vitamin C (Theragran) 1 tab PO DAILY [facility] Stop: 10/20/17 08:59 Last Admin: 08/26/17 09:31 Dose: Not Given Ondansetron HCl (Zofran) 4 mg IV Q6H PRN PRN Reason: Nausea / Vomiting Stop: 10/19/17 11:40 Simethicone (Mylicon) 80 mg GT Q6HR PRN PRN Reason: Gas Stop: 10/19/17 11:59 Sodium Phosphate (Fleet Enema) 135 ml RC PRN PRN PRN Reason: If MOM/Dulcolax ineffective Stop: 10/19/17 11:29 Zinc Sulfate (Zinc Sulfate) 220 mg PO DAILY [facility] Stop: 10/20/17 08:59 Last Admin: 08/26/17 09:31 Dose: Not Given General: Alert, No acute distress (scattered rhonchi) HEENT: Atraumatic, PERRLA, EOMI, Mucous membr. moist/pink Neck: Supple, Other (TRACH) Cardiovascular: Regular rate Lungs: Other (coarse rhonchi) Abdomen: Bowel sounds, Soft, Other (INTACT GT) Extremities: Edema (upper wxtrmities), Other (upper ext) Neurological: Sensation intact Skin: no Rash Psych/Mental Status: Mood NL - Procedures Procedures: Procedures Procedure Code Date BLOOD TRANSFUSION SERVICE 77162 08/02/17 EXCISION OF STOMACH, ENDO, DIAGN [id number] 07/10/17 INSPECTION OF LOWER INTESTINAL TRACT, ENDO [id number] 07/10/17 PERFORMANCE OF URINARY FILTRATION, <6 HRS/DAY [id number] 07/10/17 RESPIRATORY VENTILATION, GREATER THAN 96 CONSECUTIVE HOURS [id number] 08/02/17 TRANSFUSE NONAUT RED BLOOD CELLS IN PERIPH VEIN, PERC 64182Y6 08/02/17 Assessment/Plan - Assessment Assessment: 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/L UE Edema, Cellulitis Shock Sepsis RF on Vent Acute on Chronic Decomp CHF G (-) Septicemia A. fib to V. tach Severe acute anemia 2/2 GI bleed? - Plan Plan: Lab - Result Diagrams 08/04/17 06:30 08/04/17 06:30 Current Medications Acetaminophen (Tylenol 650mg/20.3ml Suspension) 650 mg GT DAILY [facility] Stop: 10/03/17 08:59 Last Admin: 08/04/17 09:18 Dose: 650 mg Albuterol/Ipratropium (Duoneb Neb) 3 ml HHN Q4HRT [facility] Stop: 10/02/17 10:59 Last Admin: 08/04/17 11:25 Dose: 3 ml Ascorbic Acid (Vitamin C) 500 mg PO DAILY [facility] Stop: 10/03/17 08:59 Last Admin: 08/04/17 09:18 Dose: 500 mg Aspirin (Aspirin Chewable) 81 mg GT DAILY [facility] Stop: 10/03/17 08:59 Last Admin: 08/04/17 09:18 Dose: 81 mg Atorvastatin Calcium (Lipitor) 40 mg GT HS FOUZIA PRN Reason: Protocol Stop: 10/02/17 20:59 Last Admin: 08/03/17 20:19 Dose: 40 mg Bisacodyl (Dulcolax 10 Mg Supp) 10 mg RC Q72HR PRN PRN Reason: IF MOM INEFFECTIVE Stop: 10/02/17 14:13 Bisacodyl (Dulcolax 10 Mg Supp) 10 mg RC PRN PRN PRN Reason: IF MOM INEFFECTIVE Stop: 10/02/17 14:13 Chlorhexidine Gluconate (Peridex) 15 ml MM 0800,2000 [facility] Stop: 10/02/17 07:59 Last Admin: 08/04/17 08:00 Dose: 15 ml Cholecalciferol (Vitamin D3) 1,000 iu GT DAILY [facility] Stop: 10/03/17 08:59 Last Admin: 08/04/17 09:18 Dose: 1,000 iu Diltiazem HCl (Cardizem) 5 mg IVP Q4H PRN PRN Reason: INCREASE HEART RATE Stop: 10/01/17 21:59 Last Admin: 08/03/17 01:38 Dose: 5 mg Docusate Sodium (Colace) 100 mg PO DAILY [facility] Stop: 10/03/17 08:59 Last Admin: 08/04/17 09:18 Dose: 100 mg Heparin Sodium (Porcine) (Heparin) 5,000 units HD UD [facility] Stop: 08/05/17 08:59 Last Admin: 08/04/17 09:19 Dose: Not Given Fluconazole (Diflucan) 200 mg in 100 mls @ 100 mls/hr IV Q24HR [facility] Stop: 10/02/17 14:59 Last Infusion: 08/03/17 15:40 Dose: Infused Meropenem 500 mg/ Sodium (Chloride) 100 mls @ 100 mls/hr IV Q24H [facility] Stop: 10/02/17 12:59 Last Admin: 08/04/17 13:17 Dose: 100 mls/hr Dopamine HCl/Dextrose (Dopamine) 400 mg in 250 mls @ 0 mls/hr IV TITR PRN; Protocol; Per Protocol PRN Reason: BP MAINTENANCE (PER PROTOCOL) Stop: 10/02/17 07:47 Norepinephrine Bitartrate 4 mg (/ Dextrose) 254 mls @ 0 mls/hr IV TITR PRN; Protocol; Per Protocol PRN Reason: BP MAINTENANCE (PER PROTOCOL) Stop: 10/02/17 08:31 Last Admin: 08/03/17 23:47 Dose: 4 mcg/min, 15.24 mls/hr Colistimethate Sodium 80 mg/ (Sodium Chloride) 100 mls @ 100 mls/hr IV Q36H [facility] Stop: 10/02/17 20:59 Last Infusion: 08/03/17 21:20 Dose: Infused Insulin Aspart (Novolog Insulin Sliding Scale) 0 units SUBQ Q6HR [facility]OU[facility]IA PRN Reason: Protocol Stop: 10/02/17 00:00 Last Admin: 08/04/17 11:30 Dose: 6 units Lorazepam (Ativan) 1 mg IVP Q2HR PRN; Protocol PRN Reason: Restlessness Stop: 10/01/17 21:18 Last Admin: 08/04/17 01:05 Dose: 1 mg Magnesium Hydroxide (Milk Of Magnesia) 30 ml GT Q72H PRN PRN Reason: NO BM FOR THREE DAYS Stop: 10/02/17 14:13 Mirtazapine (Remeron) 15 mg GT HS FOUZIA PRN Reason: Protocol Stop: 10/02/17 20:59 Last Admin: 08/03/17 20:19 Dose: 15 mg Miscellaneous (Vancomycin Iv Per Pharmacy) 1 ea PRN PRN PRN Reason: PROTOCOL Stop: 10/01/17 20:42 Miscellaneous (Zosyn Iv Per Pharmacy) 1 [facility] PRN PRN PRN Reason: PROTOCOL Stop: 10/01/17 20:42 Multivitamins/Vitamin C (Theragran) 1 tab PO DAILY [facility] Stop: 10/03/17 08:59 Last Admin: 08/04/17 09:18 Dose: 1 tab Ondansetron HCl (Zofran Odt) 4 mg PO Q6HR PRN PRN Reason: Nausea / Vomiting Stop: 10/02/17 14:13 Pantoprazole Sodium (Protonix) 40 mg IVP DAILY [facility] Stop: 10/02/17 08:59 Last Admin: 08/04/17 09:18 Dose: 40 mg Simethicone (Mylicon) 80 mg GT Q6H PRN PRN Reason: GAS PAIN Stop: 10/02/17 14:13 Sodium Phosphate (Fleet Enema) 118 ml RC PRN PRN PRN Reason: IF MOM/DULCOLAX INEFFECTIVE Stop: 10/02/17 14:13 Temazepam (Restoril) 15 mg GT HS PRN; Protocol PRN Reason: Insomnia Stop: 10/02/17 14:13 Last Admin: 08/03/17 20:19 Dose: 15 mg Zinc Sulfate (Zinc Sulfate) 220 mg GT DAILY [facility] Stop: 10/03/17 08:59 Last Admin: 08/04/17 09:18 Dose: 220 Lab - Result Diagrams 08/26/17 06:05 08/26/17 06:05 pt. dialyzed yesterday & tolerated it well CXR still showed persistent b/l effusions, CHF, left > right replace K f/u electrolytes. cbc Reccurence of shock, on levo 16 mcg, Amiodarone BS low, monitor closely, hold Levemir, continue S/S wbc up to 20.4 reschedule for HD in am due to persistent CHF still lo Hgb/Hct due to severe GI bleed pt. had transfusion 2 U PRBC w/ dialysis if left AVF clotted request placement of sandor cath Nutritional Asmnt/Malnutr-PDOC - Dietary Evaluation Malnutrition Findings (Please click <Entered> for more info): Nutritional Asmnt/Malnutrition Start: 08/05/17 15: 53 Text: Status: Complete Freq: Document 08/05/17 15:53 LCHENG (Rec: 08/05/17 16:19 LCHENG [id number]) Nutritional Asmnt/Malnutrition Patient General Information Nutritional Screening High Risk Diagnosis sepsis, respiratory failure, ESRD Pertinent Medical Hx/Surgical Hx ESRD on HD, respiratory failure with tracheostomy, dysphagia, a fib, anemia, HTN, GERD Subjective Information Pt on vent, not able to interview. Pt was on TF Novosource Renal 30ml/hr continuous, NPO today for surgery. Pt has dialysis ordred per nurse note. Current Diet Order/ Nutrition Support NPO on 08/05 Pertinent Medications vit C, vit D3, colace, novolog , remeron, theragran, protonix , zinc Pertinent Labs 08/05 Na 134, K 3.6, Cl 102, BUN 77, Cr 4.2, Glucose 216, POC 224-233 08/02 A1c 7.7 Nutritional Hx/Data Height 1.6 m Height (Calculated Centimeters) 160.0 Current Weight (lbs) 87.543 kg Weight (Calculated Kilograms) 87.5 Weight (Calculated Grams) 79552.3 [place] Body Weight 115 Body Mass Index (BMI) 34.2 Weight Status Obese GI Symptoms GI Symptoms None Last BM 08/04 Difficult in: None Skin Integrity/Comment: reddened to left/right inner thigh, right lateral index finger, right/left arm; skin tear to left abdominal fold; pressure area to coccy/sacral Estimated Nutritional Goals BEE in Kcals: Adj wt of IBW Calories/Kcals/Kg 30-35 adj wt 61kg Kcals Calculated 4352-7122 Protein: Adj wt of IBW Protein g/k.2-1.4 Protein Calculated 73-85 Fluid: ml 1830-2135ml (1ml/kcal) Nutritional Problem 1. Problem Problem altered nutrition related lab values Etiology hx of ESRD, endocrine dysfunction Signs/Symptoms: BUN 77, Cr 4.2, Glucose 216, POC 224-233, A1c 7.7 Malnutrition Alert Protein-Calorie Malnutrition N/A Is there a minimum of two criteria No selected? Query Text:Check all the applicable criteria. A minimum of two criteria are recommended for diagnosis of either severe or non-severe malnutrition. Intervention/Recommendation Comments 1. Resume TF Novosource Renal 30ml/hr continuous as ordered. increase to goal rate of 40ml /hr continuous as tolerated. This will provide 1920kcal, 87g protein and 688ml free water, meeting 100% of nutritional needs 2. Monitor TF rate, tolerance, wt weekly, skin integrity and labs 3. F/U as high risk in 2-3 days, 08/07-08/08 Expected Outcomes/Goals Expected Outcomes/Goals 1. Pt to meet at least 75% of nutritional needs via nutrition support with tolerance 2. Wt stability, skin to remain intact, labs to approach WNL.
[2017-08-26] MEDS ORDERED: KCL 20mEq/100mL Premix 20 MEQ/100 ML PIGGYBACK IV ONE (13:37)
--- NOTE | 2017-08-26 13:41 | Diagnostic Imaging Report ---
Bilateral upper extremity DVT study HISTORY: Kirill catheter placement COMPARISON: None Technique: Longitudinal and transverse sonographic images of the bilateral upper extremity veins were obtained with doppler analysis. FINDINGS: Exam is incomplete due to patient's medical condition and difficulty cooperating. There was no evidence of thrombus within the right subclavian vein. The remaining veins were not able to be evaluated. IMPRESSION: Incomplete examination due to patient's medical condition and difficulty cooperating. There was no evidence of thrombus within the visualized right subclavian vein. Repeat exam, when clinically fusible is recommended.
[2017-08-26] MEDS ORDERED: Thrombin, Bovine 5,000 IU Vial TP ONE (16:15)
[2017-08-26] MEDS ORDERED: Gelatin Sponge 100cm Spg TP ONE (16:15)
--- NOTE | 2017-08-26 16:16 | Internal Medicine Prog Note ---
Internal Medicine Subjective - Subjective Service Date: 08/26/17 Patient is:: awake, non-verbal Per staff patient has:: tolerating meds Internal Medicine Objective - Results Result Diagrams: 08/26/17 06:05 08/26/17 06:05 Recent Labs: Laboratory Last Values WBC 20.4 Th/cmm (4.8-10.8) H* 08/26/17 06:05 RBC 2.18 Mil/cmm (3.80-5.20) L 08/26/17 06:05 Hgb 7.5 gm/dL (12-16) L* 08/26/17 06:05 Hct 20.4 % (41.0-60) L* 08/26/17 06:05 MCV 93.4 fl (81-100) 08/26/17 06:05 MCH 34.3 pg (27.0-31.0) H 08/26/17 06:05 MCHC Differential 36.7 pg (28.0-36.0) H 08/26/17 06:05 RDW 14.6 % (11.5-20.0) 08/26/17 06:05 Plt Count 159 Th/cmm (150-400) 08/26/17 06:05 MPV 10.7 fl 08/26/17 06:05 Neutrophils % 83.4 % (40.0-80.0) H 08/26/17 06:05 Band Neutrophils % 1 % (0-10) 08/25/17 20:00 Lymphocytes % 3.3 % (20.0-50.0) L 08/26/17 06:05 Monocytes % 10.4 % (2.0-10.0) H 08/26/17 06:05 Eosinophils % 2.1 % (0.0-5.0) 08/26/17 06:05 Basophils % 0.8 % (0.0-2.0) 08/26/17 06:05 Neutrophils (Manual) 88 % (40-80) H 08/25/17 20:00 Lymphocytes 5 % (20-50) L 08/25/17 20:00 Monocytes 5 % (2-10) 08/25/17 20:00 Eosinophils 1 % (0-5) 08/25/17 20:00 Basophils 0 % (0-3) 08/25/17 20:00 Hypochromia 1+ 08/02/17 15:37 Platelet Estimate ADEQUATE (NORMAL) 08/24/17 07:15 Platelet Morphology NORMAL (NORMAL) 08/20/17 04:45 Anisocytosis 1+ 08/07/17 05:45 Crenated Cell 2+ 08/02/17 15:37 RBC Morph Micro Appear ABNORMAL (NORMAL) 08/02/17 15:37 PT 11.6 SECONDS (9.5-11.5) H 08/25/17 21:06 INR 1.11 (0.5-1.4) 08/25/17 21:06 PTT (Actin FS) 32.3 SECONDS (26.0-38.0) 08/25/17 21:06 Specimen Source Arterial 08/03/17 08:58 Sample Site Right Radial 08/03/17 08:58 pH 7.42 (7.35-7.45) 08/03/17 08:58 pCO2 37.0 mmHg (35.0-45.0) 08/03/17 08:58 pO2 204.0 mmHg (80.0-100.0) H 08/03/17 08:58 HCO3 24.8 mEq/L (20.0-26.0) 08/03/17 08:58 Base Excess -0.2 mEq/L (-3.0-3.0) 08/03/17 08:58 O2 Saturation 100.0 % (92.0-100.0) 08/03/17 08:58 Rhett Test Positive 08/03/17 08:58 Vent Rate 12 08/03/17 08:58 Inspired O2 60 08/03/17 08:58 Tidal Volume 450 08/03/17 08:58 PEEP 5 08/03/17 08:58 Pressure (ins/psv/peep) NA 08/03/17 08:58 Critical Value LZHANG 08/03/17 08:58 Sodium 139 mEq/L (136-145) 08/26/17 06:05 Potassium 3.3 mEq/L (3.5-5.1) L 08/26/17 06:05 Chloride 102 mEq/L (98-107) 08/26/17 06:05 Carbon Dioxide 22.2 mEq/L (21.0-31.0) 08/26/17 06:05 Anion Gap 18.1 (7.0-16.0) H 08/26/17 06:05 BUN 55 mg/dL (7-25) H 08/26/17 06:05 Creatinine 2.2 mg/dL (0.6-1.2) H 08/26/17 06:05 Est GFR ( Amer) TNP 08/26/17 06:05 Est GFR (Non-Af Amer) TNP 08/26/17 06:05 BUN/Creatinine Ratio 25.0 08/26/17 06:05 Glucose 175 mg/dL (70-105) H 08/26/17 06:05 POC Glucose 151 MG/DL (70 - 105) H 08/26/17 13:02 Hemoglobin A1c % 7.7 % (4.0-6.0) H 08/02/17 15:37 Whole Bld Lactic Acid 1.97 mmol/L (0.60-1.99) 08/02/17 13:49 Calcium 8.5 mg/dL (8.6-10.3) L 08/26/17 06:05 Magnesium 1.6 mg/dL (1.9-2.7) L 08/24/17 07:15 Iron 10 ug/dL (27-139) L 08/02/17 13:56 TIBC 135 ug/dL (250-450) L 08/02/17 13:56 Iron Saturation 7 % (15-55) L 08/02/17 13:56 Unsaturated IBC 125 ug/dL (118-369) 08/02/17 13:56 Ferritin 588 ng/mL (15-150) H 08/02/17 13:56 Total Bilirubin 0.4 mg/dL (0.3-1.0) 08/26/17 06:05 Direct Bilirubin 0.09 mg/dL (0.0-0.2) 08/02/17 13:57 AST 34 U/L (13-39) 08/26/17 06:05 ALT 14 U/L (7-52) 08/26/17 06:05 Alkaline Phosphatase 70 U/L (34-104) 08/26/17 06:05 Troponin I 0.10 ng/mL (0.01-0.05) H* D 08/20/17 17:00 B-Natriuretic Peptide 839.0 pg/mL (5.0-100.0) H 08/19/17 04:58 Total Protein 6.3 gm/dL (6.0-8.3) 08/26/17 06:05 Albumin 2.7 gm/dL (3.7-5.3) L 08/26/17 06:05 Globulin 3.6 gm/dL 08/26/17 06:05 Albumin/Globulin Ratio 0.8 (1.0-1.8) L 08/26/17 06:05 Triglycerides 132 mg/dL (<150) 08/04/17 06:30 Cholesterol 55 mg/dL (<200) 08/04/17 06:30 LDL Cholesterol Direct 16 mg/dL (75-193) L 08/04/17 06:30 HDL Cholesterol 13 mg/dL (23-92) L 08/04/17 06:30 Amylase 12 U/L (29-103) L 08/02/17 13:43 Lipase 4 U/L (11-82) L 08/02/17 13:43 TSH 3.74 uIU/ml (0.34-5.60) 08/04/17 06:30 Stool Occult Blood POSITIVE (NEGATIVE) H 08/03/17 17:50 Random Vancomycin 25.7 ug/mL (5.0-40.0) 08/26/17 06:05 Hepatitis A IgM Ab Negative (Negative) 08/08/17 08:15 Hep Bs Antigen Negative (Negative) 08/08/17 08:15 Hep B Core IgM Ab Negative (Negative) 08/08/17 08:15 Hepatitis C Antibody <0.1 s/co ratio (0.0-0.9) 08/08/17 08:15 Blood Type A POSITIVE 08/24/17 08:30 Antibody Screen POSITIVE 08/24/17 08:30 Antibody Identification Anti-K 08/24/17 08:30 NEVILLE, IgG Interpret NEGATIVE 08/15/17 07:50 Crossmatch See Detail 08/24/17 08:30 - Physical Exam Vitals and I&O: Vital Signs Temp 98.5 F 08/26/17 15:00 Pulse 94 08/26/17 15:00 Resp 22 08/26/17 15:00 BP 101/54 08/26/17 15:00 Pulse Ox 100 08/26/17 16:00 Intake & Output 08/25/17 08/26/17 08/26/17 18:59 06:59 18:59 Intake Total 2666.000 1166.000 601.485 Output Total 500 Balance 2166.000 1166.000 601.485 Weight (lbs) 235 lb 6 oz 235 lb 8 oz Intake: Intake, IV Amount 1116.000 566.000 601.485 Levofloxacin 250mg/50mL 50 250 mg In 50 ml @ 50 mls/ hr IV Q48HR [facility] Rx#: [id number] Norepinephrine 8 mg In 516 516.000 251.485 Sodium Chloride 0.9% 250 ml @ 18 MCG/MIN 34.83 mls /hr IV TITR PRN Rx#: [id number] Piperacillin Sodium/ 50.000 50 100 Tazobact 2.25 gm In Sodium Chloride 0.9% 50 ml @ 100 mls/hr IV Q8HR [facility] Rx#:[id number] Vancomycin HCl 1.25 gm In 250 Sodium Chloride 0.9% 250 ml @ 165 mls/hr IV Q24H [facility] Rx#:[id number] Tube Feeding 600 600 Blood Product 500 Other 450 Output: Urine 0 Hemodialysis 500 Other: # Bowel Movements 2 2 Stool Characteristics Liquid Liquid Liquid Bloody Bloody Bloody Active Medications: Current Medications Acetaminophen (Tylenol) 650 mg GT DAILY [facility] Stop: 10/20/17 08:59 Last Admin: 08/26/17 09:18 Dose: 650 mg Albuterol/Ipratropium (Duoneb Neb) 3 ml HHN Q4HRT [facility] Stop: 10/19/17 10:59 Last Admin: 08/26/17 11:03 Dose: 3 ml Amiodarone HCl (Cordarone) 200 mg GT Q12H [facility] Stop: 10/20/17 10:59 Last Admin: 08/26/17 13:08 Dose: Not Given Ascorbic Acid (Vitamin C) 500 mg PO DAILY [facility] Stop: 10/20/17 08:59 Last Admin: 08/26/17 09:30 Dose: Not Given Aspirin (Aspirin Chewable) 81 mg PO DAILY [facility] Stop: 10/20/17 08:59 Last Admin: 08/26/17 09:30 Dose: Not Given Atorvastatin Calcium (Lipitor) 40 mg GT DAILY [facility] PRN Reason: Protocol Stop: 10/20/17 08:59 Last Admin: 08/26/17 09:30 Dose: Not Given Bisacodyl (Dulcolax 10 Mg Supp) 10 mg RC Q72HR PRN PRN Reason: if MOM ineffective Stop: 10/19/17 11:29 Chlorhexidine Gluconate (Peridex) 15 ml MM 0800,1999 [facility] Stop: 10/19/17 19:59 Last Admin: 08/26/17 08:30 Dose: 15 ml Cholecalciferol (Vitamin D3) 1,000 iu PO DAILY [facility] Stop: 10/20/17 08:59 Last Admin: 08/26/17 09:30 Dose: Not Given Diltiazem HCl (Cardizem) 20 mg IV Q4HR PRN PRN Reason: HR ABOVE 120 Stop: 09/13/17 11:59 Docusate Sodium (Colace) 100 mg PO DAILY [facility] Stop: 10/20/17 08:59 Last Admin: 08/26/17 09:30 Dose: Not Given Dopamine HCl/Dextrose (Dopamine) 400 mg in 250 mls @ 0 mls/hr IV TITR PRN; Protocol; 0 MCG/KG/MIN PRN Reason: BP MAINTENANCE (PER PROTOCOL) Stop: 10/19/17 11:28 Norepinephrine Bitartrate 8 mg (/ Sodium Chloride) 258 mls @ 34.83 mls/hr IV TITR PRN; Protocol; 18 MCG/MIN PRN Reason: BP MAINTENANCE (PER PROTOCOL) Stop: 10/19/17 11:09 Last Admin: 08/26/17 14:36 Dose: 16 mcg/min, 30.96 mls/hr Piperacillin Sod/Tazobactam (Sod 2.25 gm/ Sodium Chloride) 50 mls @ 100 mls/hr IV Q8HR [facility] Stop: 10/23/17 20:59 Last Infusion: 08/26/17 13:25 Dose: Infused Phenylephrine HCl 10 mg/ (Sodium Chloride) 250 mls @ 0 mls/hr IV TITR [facility]; Per Protocol PRN Reason: Protocol Stop: 10/24/17 10:29 Vancomycin HCl 1.25 gm/ Sodium (Chloride) 250 mls @ 165 mls/hr IV Q24H [facility] Stop: 10/25/17 09:59 Last Infusion: 08/26/17 11:00 Dose: Infused Dextrose (D5w) 1,000 mls @ 50 mls/hr IV .Q20H [facility] Stop: 10/25/17 08:14 Last Admin: 08/26/17 09:00 Dose: 50 mls/hr Pantoprazole Sodium 80 mg/ (Sodium Chloride) 100 mls @ 10 mls/hr IV Q10H [facility] Stop: 10/25/17 10:59 Last Admin: 08/26/17 10:35 Dose: 10 mls/hr Insulin Aspart (Novolog Insulin Sliding Scale) 0 units SUBQ Q6HR [facility] PRN Reason: Protocol Stop: 10/19/17 11:59 Last Admin: 08/26/17 13:03 Dose: 2 units Insulin Detemir (Levemir Insulin) 16 units SUBQ HS [facility] PRN Reason: Protocol Stop: 10/19/17 20:59 Last Admin: 08/25/17 20:49 Dose: 16 units Lactobacillus Rhamnosus (Culturelle 15b) 1 each PO DAILY [facility] Stop: 10/20/17 08:59 Last Admin: 08/26/17 09:30 Dose: Not Given Lorazepam (Ativan) 2 mg IVP Q4HR PRN; Protocol PRN Reason: Agitation Stop: 10/15/17 11:49 Last Admin: 08/26/17 12:30 Dose: 2 mg Magnesium Hydroxide (Milk Of Magnesia) 30 ml PO Q72HR PRN PRN Reason: Constipation Stop: 10/19/17 11:44 Mirtazapine (Remeron) 15 mg GT HS [facility] PRN Reason: Protocol Stop: 10/19/17 20:59 Last Admin: 08/25/17 20:50 Dose: 15 mg Miscellaneous (Probiotic Screen) 1 ea MC PRN PRN PRN Reason: PROTOCOL Stop: 10/22/17 10:29 Miscellaneous (Vancomycin Iv Per Pharmacy) 1 ea MC PRN [facility] Stop: 10/23/17 16:59 Multivitamins/Vitamin C (Theragran) 1 tab PO DAILY [facility] Stop: 10/20/17 08:59 Last Admin: 08/26/17 09:31 Dose: Not Given Ondansetron HCl (Zofran) 4 mg IV Q6H PRN PRN Reason: Nausea / Vomiting Stop: 10/19/17 11:40 Simethicone (Mylicon) 80 mg GT Q6HR PRN PRN Reason: Gas Stop: 10/19/17 11:59 Sodium Phosphate (Fleet Enema) 135 ml RC PRN PRN PRN Reason: If MOM/Dulcolax ineffective Stop: 10/19/17 11:29 Zinc Sulfate (Zinc Sulfate) 220 mg PO DAILY [facility] Stop: 10/20/17 08:59 Last Admin: 08/26/17 09:31 Dose: Not Given General: weak, obtunded HEENT: NC/AT, PERRLA Neck: Supple Lungs: ronchi Abdomen: soft, non-tender, non-distended, +GT Neurological: unable to follow command - Procedures Procedures: Procedures Procedure Code Date BLOOD TRANSFUSION SERVICE 24021 08/02/17 EXCISION OF STOMACH, ENDO, DIAGN [id number] 07/10/17 INSPECTION OF LOWER INTESTINAL TRACT, ENDO [id number] 07/10/17 PERFORMANCE OF URINARY FILTRATION, <6 HRS/DAY [id number] 07/10/17 RESPIRATORY VENTILATION, GREATER THAN 96 CONSECUTIVE HOURS [id number] 08/02/17 TRANSFUSE NONAUT RED BLOOD CELLS IN PERIPH VEIN, PERC 34297L3 08/02/17 Internal Medicine Assmt/Plan - Assessment Assessment: Assessment: 1. Septic shock. 2. Gram-negative negative bacteremia. 3. Pneumonia. 4. CK D stage V pneumatosis. 5. Diabetes mellitus type 2. 6. Obesity. 7. hypotension - Plan Plan: monitor glucose cbc.bmp in am continue ivabx as per ID continue current orders Nutritional Asmnt/Malnutr-PDOC - Dietary Evaluation Malnutrition Findings (Please click <Entered> for more info): Nutritional Asmnt/Malnutrition Start: 08/05/17 15: 53 Text: Status: Complete Freq: Document 08/05/17 15:53 NAVIN (Rec: 08/05/17 16:19 HEN [email or web address]) Nutritional Asmnt/Malnutrition Patient General Information Nutritional Screening High Risk Diagnosis sepsis, respiratory failure, ESRD Pertinent Medical Hx/Surgical Hx ESRD on HD, respiratory failure with tracheostomy, dysphagia, a fib, anemia, HTN, GERD Subjective Information Pt on vent, not able to interview. Pt was on TF Novosource Renal 30ml/hr continuous, NPO today for surgery. Pt has dialysis ordred per nurse note. Current Diet Order/ Nutrition Support NPO on 08/05 Pertinent Medications vit C, vit D3, colace, novolog , remeron, theragran, protonix , zinc Pertinent Labs 08/05 Na 134, K 3.6, Cl 102, BUN 77, Cr 4.2, Glucose 216, POC 224-233 08/02 A1c 7.7 Nutritional Hx/Data Height 5 ft 3 in Height (Calculated Centimeters) 160.0 Current Weight (lbs) 193 lb Weight (Calculated Kilograms) 87.5 Weight (Calculated Grams) [address]46.3 [place] Body Weight 115 Body Mass Index (BMI) 34.2 Weight Status Obese GI Symptoms GI Symptoms None Last BM 08/04 Difficult in: None Skin Integrity/Comment: reddened to left/right inner thigh, right lateral index finger, right/left arm; skin tear to left abdominal fold; pressure area to coccy/sacral Estimated Nutritional Goals BEE in Kcals: Adj wt of IBW Calories/Kcals/Kg 30-35 adj wt 61kg Kcals Calculated 2475-8140 Protein: Adj wt of IBW Protein g/k.2-1.4 Protein Calculated 73-85 Fluid: ml 1830-2135ml (1ml/kcal) Nutritional Problem 1. Problem Problem altered nutrition related lab values Etiology hx of ESRD, endocrine dysfunction Signs/Symptoms: BUN 77, Cr 4.2, Glucose 216, POC 224-233, A1c 7.7 Malnutrition Alert Protein-Calorie Malnutrition N/A Is there a minimum of two criteria No selected? Query Text:Check all the applicable criteria. A minimum of two criteria are recommended for diagnosis of either severe or non-severe malnutrition. Intervention/Recommendation Comments 1. Resume TF Novosource Renal 30ml/hr continuous as ordered. increase to goal rate of 40ml /hr continuous as tolerated. This will provide 1920kcal, 87g protein and 688ml free water, meeting 100% of nutritional needs 2. Monitor TF rate, tolerance, wt weekly, skin integrity and labs 3. F/U as high risk in 2-3 days, 08/07-08/08 Expected Outcomes/Goals Expected Outcomes/Goals 1. Pt to meet at least 75% of nutritional needs via nutrition support with tolerance 2. Wt stability, skin to remain intact, labs to approach WNL.
[2017-08-26 20:15] LABS: MANUAL DIFF REQUIRED? YES
[2017-08-26] MEDS: Insulin Detemir 100 units/mL 10mL Vial SUBQ SCH (21:31)
--- NOTE | 2017-08-26 22:15 | Infectious Disease Prog Note ---
Infectious Disease Subjective - Review of Systems Service Date: 08/26/17 Events since last encounter: vadinal bleeding. Subjective: no fever. on levophed. Infectious Disease Objective - Results Result Diagrams: 08/26/17 06:05 08/26/17 06:05 Recent Labs: Laboratory Last Values WBC 20.4 Th/cmm (4.8-10.8) H* 08/26/17 06:05 RBC 2.18 Mil/cmm (3.80-5.20) L 08/26/17 06:05 Hgb 7.5 gm/dL (12-16) L* 08/26/17 06:05 Hct 20.4 % (41.0-60) L* 08/26/17 06:05 MCV 93.4 fl (81-100) 08/26/17 06:05 MCH 34.3 pg (27.0-31.0) H 08/26/17 06:05 MCHC Differential 36.7 pg (28.0-36.0) H 08/26/17 06:05 RDW 14.6 % (11.5-20.0) 08/26/17 06:05 Plt Count 159 Th/cmm (150-400) 08/26/17 06:05 MPV 10.7 fl 08/26/17 06:05 Neutrophils % 83.4 % (40.0-80.0) H 08/26/17 06:05 Band Neutrophils % 1 % (0-10) 08/25/17 20:00 Lymphocytes % 3.3 % (20.0-50.0) L 08/26/17 06:05 Monocytes % 10.4 % (2.0-10.0) H 08/26/17 06:05 Eosinophils % 2.1 % (0.0-5.0) 08/26/17 06:05 Basophils % 0.8 % (0.0-2.0) 08/26/17 06:05 Neutrophils (Manual) 88 % (40-80) H 08/25/17 20:00 Lymphocytes 5 % (20-50) L 08/25/17 20:00 Monocytes 5 % (2-10) 08/25/17 20:00 Eosinophils 1 % (0-5) 08/25/17 20:00 Basophils 0 % (0-3) 08/25/17 20:00 Hypochromia 1+ 08/02/17 15:37 Platelet Estimate ADEQUATE (NORMAL) 08/24/17 07:15 Platelet Morphology NORMAL (NORMAL) 08/20/17 04:45 Anisocytosis 1+ 08/07/17 05:45 Crenated Cell 2+ 08/02/17 15:37 RBC Morph Micro Appear ABNORMAL (NORMAL) 08/02/17 15:37 PT 11.6 SECONDS (9.5-11.5) H 08/25/17 21:06 INR 1.11 (0.5-1.4) 08/25/17 21:06 PTT (Actin FS) 32.3 SECONDS (26.0-38.0) 08/25/17 21:06 Specimen Source Arterial 08/03/17 08:58 Sample Site Right Radial 08/03/17 08:58 pH 7.42 (7.35-7.45) 08/03/17 08:58 pCO2 37.0 mmHg (35.0-45.0) 08/03/17 08:58 pO2 204.0 mmHg (80.0-100.0) H 08/03/17 08:58 HCO3 24.8 mEq/L (20.0-26.0) 08/03/17 08:58 Base Excess -0.2 mEq/L (-3.0-3.0) 08/03/17 08:58 O2 Saturation 100.0 % (92.0-100.0) 08/03/17 08:58 Rhett Test Positive 08/03/17 08:58 Vent Rate 12 08/03/17 08:58 Inspired O2 60 08/03/17 08:58 Tidal Volume 450 08/03/17 08:58 PEEP 5 08/03/17 08:58 Pressure (ins/psv/peep) NA 08/03/17 08:58 Critical Value LZHANG 08/03/17 08:58 Sodium 139 mEq/L (136-145) 08/26/17 06:05 Potassium 3.3 mEq/L (3.5-5.1) L 08/26/17 06:05 Chloride 102 mEq/L (98-107) 08/26/17 06:05 Carbon Dioxide 22.2 mEq/L (21.0-31.0) 08/26/17 06:05 Anion Gap 18.1 (7.0-16.0) H 08/26/17 06:05 BUN 55 mg/dL (7-25) H 08/26/17 06:05 Creatinine 2.2 mg/dL (0.6-1.2) H 08/26/17 06:05 Est GFR ( Amer) TNP 08/26/17 06:05 Est GFR (Non-Af Amer) TNP 08/26/17 06:05 BUN/Creatinine Ratio 25.0 08/26/17 06:05 Glucose 175 mg/dL (70-105) H 08/26/17 06:05 POC Glucose 180 MG/DL (70 - 105) H 08/26/17 17:36 Hemoglobin A1c % 7.7 % (4.0-6.0) H 08/02/17 15:37 Whole Bld Lactic Acid 1.97 mmol/L (0.60-1.99) 08/02/17 13:49 Calcium 8.5 mg/dL (8.6-10.3) L 08/26/17 06:05 Magnesium 1.6 mg/dL (1.9-2.7) L 08/24/17 07:15 Iron 10 ug/dL (27-139) L 08/02/17 13:56 TIBC 135 ug/dL (250-450) L 08/02/17 13:56 Iron Saturation 7 % (15-55) L 08/02/17 13:56 Unsaturated IBC 125 ug/dL (118-369) 08/02/17 13:56 Ferritin 588 ng/mL (15-150) H 08/02/17 13:56 Total Bilirubin 0.4 mg/dL (0.3-1.0) 08/26/17 06:05 Direct Bilirubin 0.09 mg/dL (0.0-0.2) 08/02/17 13:57 AST 34 U/L (13-39) 08/26/17 06:05 ALT 14 U/L (7-52) 08/26/17 06:05 Alkaline Phosphatase 70 U/L (34-104) 08/26/17 06:05 Troponin I 0.10 ng/mL (0.01-0.05) H* D 08/20/17 17:00 B-Natriuretic Peptide 839.0 pg/mL (5.0-100.0) H 08/19/17 04:58 Total Protein 6.3 gm/dL (6.0-8.3) 08/26/17 06:05 Albumin 2.7 gm/dL (3.7-5.3) L 08/26/17 06:05 Globulin 3.6 gm/dL 08/26/17 06:05 Albumin/Globulin Ratio 0.8 (1.0-1.8) L 08/26/17 06:05 Triglycerides 132 mg/dL (<150) 08/04/17 06:30 Cholesterol 55 mg/dL (<200) 08/04/17 06:30 LDL Cholesterol Direct 16 mg/dL (75-193) L 08/04/17 06:30 HDL Cholesterol 13 mg/dL (23-92) L 08/04/17 06:30 Amylase 12 U/L (29-103) L 08/02/17 13:43 Lipase 4 U/L (11-82) L 08/02/17 13:43 TSH 3.74 uIU/ml (0.34-5.60) 08/04/17 06:30 Stool Occult Blood POSITIVE (NEGATIVE) H 08/03/17 17:50 Random Vancomycin 25.7 ug/mL (5.0-40.0) 08/26/17 06:05 Hepatitis A IgM Ab Negative (Negative) 08/08/17 08:15 Hep Bs Antigen Negative (Negative) 08/08/17 08:15 Hep B Core IgM Ab Negative (Negative) 08/08/17 08:15 Hepatitis C Antibody <0.1 s/co ratio (0.0-0.9) 08/08/17 08:15 Blood Type A POSITIVE 08/24/17 08:30 Antibody Screen POSITIVE 08/24/17 08:30 Antibody Identification Anti-K 08/24/17 08:30 N[place], IgG Interpret NEGATIVE 08/15/17 07:50 Crossmatch See Detail 08/24/17 08:30 - Physical Exam Vitals and I&O: Vital Signs Temp 97.4 F 08/26/17 20:00 Pulse 92 08/26/17 21:00 Resp 17 08/26/17 20:00 BP 123/60 08/26/17 20:00 Pulse Ox 100 08/26/17 21:00 Intake & Output 08/26/17 08/26/17 08/27/17 06:59 18:59 06:59 Intake Total 5197.998 2345.485 0 Output Total 0 Balance 5962.497 5404.485 0 Weight (lbs) 106.821 kg 108.125 kg Intake: Intake, IV Amount 566.000 673.485 0 Norepinephrine 8 mg In 516.000 251.485 Sodium Chloride 0.9% 250 ml @ 18 MCG/MIN 34.83 mls /hr IV TITR PRN Rx#: [id number] Pantoprazole 80 mg In 72 Sodium Chloride 0.9% 100 ml @ 10 mls/hr IV Q10H [facility] Rx#:[id number] Piperacillin Sodium/ 50 100 0 Tazobact 2.25 gm In Sodium Chloride 0.9% 50 ml @ 100 mls/hr IV Q8HR [facility] Rx#:[id number] Vancomycin HCl 1.25 gm In 250 Sodium Chloride 0.9% 250 ml @ 165 mls/hr IV Q24H [facility] Rx#:[id number] Tube Feeding 600 Blood Product 202 Other 2500 Output: Urine 0 Other: # Bowel Movements 2 6 Stool Characteristics Liquid Liquid Liquid Bloody Bloody Bloody Active Medications: Current Medications Acetaminophen (Tylenol) 650 mg GT DAILY [facility] Stop: 10/20/17 08:59 Last Admin: 08/26/17 09:18 Dose: 650 mg Albuterol/Ipratropium (Duoneb Neb) 3 ml HHN Q4HRT [facility] Stop: 10/19/17 10:59 Last Admin: 08/26/17 19:24 Dose: 3 ml Amiodarone HCl (Cordarone) 200 mg GT Q12H [facility] Stop: 10/20/17 10:59 Last Admin: 08/26/17 13:08 Dose: Not Given Ascorbic Acid (Vitamin C) 500 mg PO DAILY [facility] Stop: 10/20/17 08:59 Last Admin: 08/26/17 09:30 Dose: Not Given Aspirin (Aspirin Chewable) 81 mg PO DAILY [facility] Stop: 10/20/17 08:59 Last Admin: 08/26/17 09:30 Dose: Not Given Atorvastatin Calcium (Lipitor) 40 mg GT DAILY [facility] PRN Reason: Protocol Stop: 10/20/17 08:59 Last Admin: 08/26/17 09:30 Dose: Not Given Bisacodyl (Dulcolax 10 Mg Supp) 10 mg RC Q72HR PRN PRN Reason: if MOM ineffective Stop: 10/19/17 11:29 Chlorhexidine Gluconate (Peridex) 15 ml MM 0800,1999 [facility] Stop: 10/19/17 19:59 Last Admin: 08/26/17 19:32 Dose: 15 ml Cholecalciferol (Vitamin D3) 1,000 iu PO DAILY [facility] Stop: 10/20/17 08:59 Last Admin: 08/26/17 09:30 Dose: Not Given Diltiazem HCl (Cardizem) 20 mg IV Q4HR PRN PRN Reason: HR ABOVE 120 Stop: 09/13/17 11:59 Docusate Sodium (Colace) 100 mg PO DAILY [facility] Stop: 10/20/17 08:59 Last Admin: 08/26/17 09:30 Dose: Not Given Dopamine HCl/Dextrose (Dopamine) 400 mg in 250 mls @ 0 mls/hr IV TITR PRN; Protocol; 0 MCG/KG/MIN PRN Reason: BP MAINTENANCE (PER PROTOCOL) Stop: 10/19/17 11:28 Norepinephrine Bitartrate 8 mg (/ Sodium Chloride) 258 mls @ 34.83 mls/hr IV TITR PRN; Protocol; 18 MCG/MIN PRN Reason: BP MAINTENANCE (PER PROTOCOL) Stop: 10/19/17 11:09 Last Admin: 08/26/17 14:36 Dose: 16 mcg/min, 30.96 mls/hr Piperacillin Sod/Tazobactam (Sod 2.25 gm/ Sodium Chloride) 50 mls @ 100 mls/hr IV Q8HR [facility] Stop: 10/23/17 20:59 Last Infusion: 08/26/17 21:30 Dose: 100 mls/hr Phenylephrine HCl 10 mg/ (Sodium Chloride) 250 mls @ 0 mls/hr IV TITR [facility]; Per Protocol PRN Reason: Protocol Stop: 10/24/17 10:29 Vancomycin HCl 1.25 gm/ Sodium (Chloride) 250 mls @ 165 mls/hr IV Q24H [facility] Stop: 10/25/17 09:59 Last Infusion: 08/26/17 11:00 Dose: Infused Dextrose (D5w) 1,000 mls @ 50 mls/hr IV .Q20H [facility] Stop: 10/25/17 08:14 Last Admin: 08/26/17 09:00 Dose: 50 mls/hr Pantoprazole Sodium 80 mg/ (Sodium Chloride) 100 mls @ 10 mls/hr IV Q10H [facility] Stop: 10/25/17 10:59 Last Admin: 08/26/17 17:47 Dose: 10 mls/hr Insulin Aspart (Novolog Insulin Sliding Scale) 0 units SUBQ Q6HR [facility] PRN Reason: Protocol Stop: 10/19/17 11:59 Last Admin: 08/26/17 17:40 Dose: Not Given Insulin Detemir (Levemir Insulin) 16 units SUBQ HS [facility] PRN Reason: Protocol Stop: 10/19/17 20:59 Last Admin: 08/26/17 21:31 Dose: Not Given Lactobacillus Rhamnosus (Culturelle 15b) 1 each PO DAILY [facility] Stop: 10/20/17 08:59 Last Admin: 08/26/17 09:30 Dose: Not Given Lorazepam (Ativan) 2 mg IVP Q4HR PRN; Protocol PRN Reason: Agitation Stop: 10/15/17 11:49 Last Admin: 08/26/17 19:05 Dose: 2 mg Magnesium Hydroxide (Milk Of Magnesia) 30 ml PO Q72HR PRN PRN Reason: Constipation Stop: 10/19/17 11:44 Mirtazapine (Remeron) 15 mg GT [facility] PRN Reason: Protocol Stop: 10/19/17 20:59 Last Admin: 08/26/17 21:31 Dose: Not Given Miscellaneous (Probiotic Screen) 1 ea MC PRN PRN PRN Reason: PROTOCOL Stop: 10/22/17 10:29 Miscellaneous (Vancomycin Iv Per Pharmacy) 1 ea MC PRN [facility] Stop: 10/23/17 16:59 Multivitamins/Vitamin C (Theragran) 1 tab PO DAILY [facility] Stop: 10/20/17 08:59 Last Admin: 08/26/17 09:31 Dose: Not Given Ondansetron HCl (Zofran) 4 mg IV Q6H PRN PRN Reason: Nausea / Vomiting Stop: 10/19/17 11:40 Simethicone (Mylicon) 80 mg GT Q6HR PRN PRN Reason: Gas Stop: 10/19/17 11:59 Sodium Phosphate (Fleet Enema) 135 ml RC PRN PRN PRN Reason: If MOM/Dulcolax ineffective Stop: 10/19/17 11:29 Zinc Sulfate (Zinc Sulfate) 220 mg PO DAILY [facility] Stop: 10/20/17 08:59 Last Admin: 08/26/17 09:31 Dose: Not Given General: no acute distress, well developed, well nourished HEENT: atraumatic, normocephalic, PERRLA, EOMI Neck: supple, tracheostomy, no thyromegaly Cardiovascular: S1S2, regular Lungs: clear to auscultation bilaterally, clear to percussion, rhonchi Abdomen: soft, no tender, no distended Extremities: no cyanosis, no clubbing, no edema Neurological: awake, alert Skin: intact - Procedures Procedures: Procedures Procedure Code Date BLOOD TRANSFUSION SERVICE 75796 08/02/17 EXCISION OF STOMACH, ENDO, DIAGN [id number] 07/10/17 INSPECTION OF LOWER INTESTINAL TRACT, ENDO [id number] 07/10/17 PERFORMANCE OF URINARY FILTRATION, <6 HRS/DAY [id number] 07/10/17 RESPIRATORY VENTILATION, GREATER THAN 96 CONSECUTIVE HOURS [id number] 08/02/17 TRANSFUSE NONAUT RED BLOOD CELLS IN PERIPH VEIN, PERC [id number] 08/02/17 Infectious Disease Assmt/Plan - Assessment Assessment: 1. Septic shock. versus cardiogenic shock. 2. Gram-negative negative bacteremia treated 3. Pneumonia. 4. 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 5. Diabetes mellitus type 2. 6. Obesity. 7. Hypotension on levophed. 8. Gi bleed. - Plan Plan: DC levaquin. Contnue vancomycin IV and Zosyn. Patient Is poor prognosis. Nutritional Asmnt/Malnutr-PDOC - Dietary Evaluation Malnutrition Findings (Please click <Entered> for more info): Nutritional Asmnt/Malnutrition Start: 08/05/17 15: 53 Text: Status: Complete Freq: Document 08/05/17 15:53 HEIDY (Rec: 08/05/17 16:19 HEIDY MARTINEZ-FN) Nutritional Asmnt/Malnutrition Patient General Information Nutritional Screening High Risk Diagnosis sepsis, respiratory failure, ESRD Pertinent Medical Hx/Surgical Hx ESRD on HD, respiratory failure with tracheostomy, dysphagia, a fib, anemia, HTN, GERD Subjective Information Pt on vent, not able to interview. Pt was on TF Novosource Renal 30ml/hr continuous, NPO today for surgery. Pt has dialysis ordred per nurse note. Current Diet Order/ Nutrition Support NPO on 08/05 Pertinent Medications vit C, vit D3, colace, novolog , remeron, theragran, protonix , zinc Pertinent Labs 08/05 Na 134, K 3.6, Cl 102, BUN 77, Cr 4.2, Glucose 216, POC 224-233 08/02 A1c 7.7 Nutritional Hx/Data Height 1.6 m Height (Calculated Centimeters) 160.0 Current Weight (lbs) 87.543 kg Weight (Calculated Kilograms) 87.5 Weight (Calculated Grams) 19415.3 Stuart Body Weight 115 Body Mass Index (BMI) 34.2 Weight Status Obese GI Symptoms GI Symptoms None Last BM 08/04 Difficult in: None Skin Integrity/Comment: reddened to left/right inner thigh, right lateral index finger, right/left arm; skin tear to left abdominal fold; pressure area to coccy/sacral Estimated Nutritional Goals BEE in Kcals: Adj wt of IBW Calories/Kcals/Kg 30-35 adj wt 61kg Kcals Calculated 9028-5265 Protein: Adj wt of IBW Protein g/k.2-1.4 Protein Calculated 73-85 Fluid: ml 1830-2135ml (1ml/kcal) Nutritional Problem 1. Problem Problem altered nutrition related lab values Etiology hx of ESRD, endocrine dysfunction Signs/Symptoms: BUN 77, Cr 4.2, Glucose 216, POC 224-233, A1c 7.7 Malnutrition Alert Protein-Calorie Malnutrition N/A Is there a minimum of two criteria No selected? Query Text:Check all the applicable criteria. A minimum of two criteria are recommended for diagnosis of either severe or non-severe malnutrition. Intervention/Recommendation Comments 1. Resume TF Novosource Renal 30ml/hr continuous as ordered. increase to goal rate of 40ml /hr continuous as tolerated. This will provide 1920kcal, 87g protein and 688ml free water, meeting 100% of nutritional needs 2. Monitor TF rate, tolerance, wt weekly, skin integrity and labs 3. F/U as high risk in 2-3 days, 08/07-08/08 Expected Outcomes/Goals Expected Outcomes/Goals 1. Pt to meet at least 75% of nutritional needs via nutrition support with tolerance 2. Wt stability, skin to remain intact, labs to approach WNL.
[2017-08-26 22:25] LABS: MEAN CELL VOLUME 85.8 fl (81-100); MEAN CORPUSCULAR HEMOGLOBIN 29.9 pg (27.0-31.0); MEAN CORPUSCULAR HGB CONC 34.8 pg (28.0-36.0); MEAN PLATELET VOLUME 10.8 fl; PLATELET COUNT 139 Th/cmm (150-400); RED BLOOD COUNT 2.36 Mil/cmm (3.80-5.20); RED CELL DISTRIBUTION WIDTH 14.5 % (11.5-20.0)
[2017-08-26 22:28] LABS: WHITE BLOOD COUNT 31.3 Th/cmm (4.8-10.8)
[2017-08-26 22:29] LABS: HEMATOCRIT 20.2 % (41.0-60)
[2017-08-26 22:30] LABS: BAND NEUTROPHILE 2 % (0-10); BASOPHIL 0 % (0-3); EOSINOPHIL 0 % (0-5); LYMPHOCYTE 3 % (20-50); MONOCYTE 2 % (2-10); NEUTROPHILS 92 % (40-80); TOTAL CELLS COUNTED 100
[2017-08-27] MEDS: INSULIN ASPART SLIDING SCALE 100 UNITS/ML UNIT SUBQ SCH ×5 (00:10→23:26)
[2017-08-27] MEDS: Albuterol/Ipratropium Neb 3 ML AERS HHN SCH ×6 (03:20→23:04)
[2017-08-27] MEDS: Pantoprazole 80 MG in Sodium Chloride 0.9% 100 ML IV SCH ×3 (04:55→17:06)
--- NOTE | 2017-08-27 08:28 | GI Progress Note ---
Subjective - Review of Systems Service Date: 08/27/17 Subjective: Report that Dr Johnson was unable to obtain HD access yesterday despite exhaustive attempts, and that family was notified. Pt did have red stool overnight. Objective - Results Result Diagrams: 08/26/17 22:10 08/26/17 06:05 Recent Labs: Laboratory Last Values WBC 31.3 Th/cmm (4.8-10.8) H* D 08/26/17 22:10 RBC 2.36 Mil/cmm (3.80-5.20) L 08/26/17 22:10 Hgb 7.0 gm/dL (12-16) L* 08/26/17 22:10 Hct 20.2 % (41.0-60) L* 08/26/17 22:10 MCV 85.8 fl (81-100) 08/26/17 22:10 MCH 29.9 pg (27.0-31.0) 08/26/17 22:10 MCHC Differential 34.8 pg (28.0-36.0) 08/26/17 22:10 RDW 14.5 % (11.5-20.0) 08/26/17 22:10 Plt Count 139 Th/cmm (150-400) L 08/26/17 22:10 MPV 10.8 fl 08/26/17 22:10 Neutrophils % [employer] 08/26/17 22:10 Band Neutrophils % 2 % (0-10) 08/26/17 22:10 Lymphocytes % [employer]UC[employer] ASSISTANT TE[employer]ER 08/26/17 22:10 Monocytes % [employer]UCATIONAL ASSISTANT TEACHER 08/26/17 22:10 Eosinophils % [employer]UCATIONAL ASSISTANT TEACHER 08/26/17 22:10 Basophils % 0.8 % (0.0-2.0) 08/26/17 06:05 Neutrophils (Manual) 92 % (40-80) H 08/26/17 22:10 Lymphocytes 3 % (20-50) L 08/26/17 22:10 Monocytes 2 % (2-10) 08/26/17 22:10 Eosinophils 0 % (0-5) 08/26/17 22:10 Basophils 0 % (0-3) 08/26/17 22:10 Hypochromia 1+ 08/02/17 15:37 Platelet Estimate ADEQUATE (NORMAL) 08/24/17 07:15 Platelet Morphology NORMAL (NORMAL) 08/20/17 04:45 Anisocytosis 1+ 08/07/17 05:45 Crenated Cell 2+ 08/02/17 15:37 RBC Morph Micro Appear ABNORMAL (NORMAL) 08/02/17 15:37 PT 11.6 SECONDS (9.5-11.5) H 08/25/17 21:06 INR 1.11 (0.5-1.4) 08/25/17 21:06 PTT (Actin FS) 32.3 SECONDS (26.0-38.0) 08/25/17 21:06 Specimen Source Arterial 08/03/17 08:58 Sample Site Right Radial 08/03/17 08:58 pH 7.42 (7.35-7.45) 08/03/17 08:58 pCO2 37.0 mmHg (35.0-45.0) 08/03/17 08:58 pO2 204.0 mmHg (80.0-100.0) H 08/03/17 08:58 HCO3 24.8 mEq/L (20.0-26.0) 08/03/17 08:58 Base Excess -0.2 mEq/L (-3.0-3.0) 08/03/17 08:58 O2 Saturation 100.0 % (92.0-100.0) 08/03/17 08:58 Rhett Test Positive 08/03/17 08:58 Vent Rate 12 08/03/17 08:58 Inspired O2 60 08/03/17 08:58 Tidal Volume 450 08/03/17 08:58 PEEP 5 08/03/17 08:58 Pressure (ins/psv/peep) NA 08/03/17 08:58 Critical Value LZHANG 08/03/17 08:58 Sodium 139 mEq/L (136-145) 08/26/17 06:05 Potassium 3.3 mEq/L (3.5-5.1) L 08/26/17 06:05 Chloride 102 mEq/L (98-107) 08/26/17 06:05 Carbon Dioxide 22.2 mEq/L (21.0-31.0) 08/26/17 06:05 Anion Gap 18.1 (7.0-16.0) H 08/26/17 06:05 BUN 55 mg/dL (7-25) H 08/26/17 06:05 Creatinine 2.2 mg/dL (0.6-1.2) H 08/26/17 06:05 Est GFR ( Amer) TNP 08/26/17 06:05 Est GFR (Non-Af Amer) TNP 08/26/17 06:05 BUN/Creatinine Ratio 25.0 08/26/17 06:05 Glucose 175 mg/dL (70-105) H 08/26/17 06:05 POC Glucose 180 MG/DL (70 - 105) H 08/27/17 05:25 Hemoglobin A1c % 7.7 % (4.0-6.0) H 08/02/17 15:37 Whole Bld Lactic Acid 1.97 mmol/L (0.60-1.99) 08/02/17 13:49 Calcium 8.5 mg/dL (8.6-10.3) L 08/26/17 06:05 Magnesium 1.6 mg/dL (1.9-2.7) L 08/24/17 07:15 Iron 10 ug/dL (27-139) L 08/02/17 13:56 TIBC 135 ug/dL (250-450) L 08/02/17 13:56 Iron Saturation 7 % (15-55) L 08/02/17 13:56 Unsaturated IBC 125 ug/dL (118-369) 08/02/17 13:56 Ferritin 588 ng/mL (15-150) H 08/02/17 13:56 Total Bilirubin 0.4 mg/dL (0.3-1.0) 08/26/17 06:05 Direct Bilirubin 0.09 mg/dL (0.0-0.2) 08/02/17 13:57 AST 34 U/L (13-39) 08/26/17 06:05 ALT 14 U/L (7-52) 08/26/17 06:05 Alkaline Phosphatase 70 U/L (34-104) 08/26/17 06:05 Troponin I 0.10 ng/mL (0.01-0.05) H* D 08/20/17 17:00 B-Natriuretic Peptide 839.0 pg/mL (5.0-100.0) H 08/19/17 04:58 Total Protein 6.3 gm/dL (6.0-8.3) 08/26/17 06:05 Albumin 2.7 gm/dL (3.7-5.3) L 08/26/17 06:05 Globulin 3.6 gm/dL 08/26/17 06:05 Albumin/Globulin Ratio 0.8 (1.0-1.8) L 08/26/17 06:05 Triglycerides 132 mg/dL (<150) 08/04/17 06:30 Cholesterol 55 mg/dL (<200) 08/04/17 06:30 LDL Cholesterol Direct 16 mg/dL (75-193) L 08/04/17 06:30 HDL Cholesterol 13 mg/dL (23-92) L 08/04/17 06:30 Amylase 12 U/L (29-103) L 08/02/17 13:43 Lipase 4 U/L (11-82) L 08/02/17 13:43 TSH 3.74 uIU/ml (0.34-5.60) 08/04/17 06:30 Stool Occult Blood POSITIVE (NEGATIVE) H 08/03/17 17:50 Random Vancomycin 25.7 ug/mL (5.0-40.0) 08/26/17 06:05 Hepatitis A IgM Ab Negative (Negative) 08/08/17 08:15 Hep Bs Antigen Negative (Negative) 08/08/17 08:15 Hep B Core IgM Ab Negative (Negative) 08/08/17 08:15 Hepatitis C Antibody <0.1 s/co ratio (0.0-0.9) 08/08/17 08:15 Blood Type A POSITIVE 08/24/17 08:30 Antibody Screen POSITIVE 08/24/17 08:30 Antibody Identification Anti-K 08/24/17 08:30 [place], IgG Interpret NEGATIVE 08/15/17 07:50 Crossmatch See Detail 08/24/17 08:30 - Physical Exam Vitals and I&O: Vital Signs Temp 97.6 F 08/27/17 05:00 Pulse 68 08/27/17 07:17 Resp 12 08/27/17 06:00 BP 103/30 08/27/17 06:15 Pulse Ox 100 08/27/17 07:17 Intake & Output 08/26/17 08/27/17 08/27/17 18:59 06:59 18:59 Intake Total 3375.485 1660.204 Output Total 0 Balance 3375.485 1660.204 Weight (lbs) 108.125 kg 108.125 kg Intake: Intake, IV Amount 282.310 3740.204 Dextrose 5% 1,000 ml @ 50 1000 mls/hr IV .Q20H [facility] Rx#: [id number] Norepinephrine 8 mg In 251.485 449.371 Sodium Chloride 0.9% 250 ml @ 18 MCG/MIN 34.83 mls /hr IV TITR PRN Rx#: [id number] Pantoprazole 80 mg In 72 110.833 Sodium Chloride 0.9% 100 ml @ 10 mls/hr IV Q10H [facility] Rx#:[id number] Piperacillin Sodium/ 100 100 Tazobact 2.25 gm In Sodium Chloride 0.9% 50 ml @ 100 mls/hr IV Q8HR [facility] Rx#:[id number] Vancomycin HCl 1.25 gm In 250 Sodium Chloride 0.9% 250 ml @ 165 mls/hr IV Q24H [facility] Rx#:[id number] Oral 0 Tube Feeding 0 Blood Product 202 Other 2500 Output: Urine 0 Other: # Bowel Movements 6 4 Stool Characteristics Liquid Liquid Bloody Bloody Active Medications: Current Medications Acetaminophen (Tylenol) 650 mg GT DAILY [facility] Stop: 10/20/17 08:59 Last Admin: 08/26/17 09:18 Dose: 650 mg Albuterol/Ipratropium (Duoneb Neb) 3 ml HHN Q4HRT [facility] Stop: 10/19/17 10:59 Last Admin: 08/27/17 07:17 Dose: 3 ml Amiodarone HCl (Cordarone) 200 mg GT Q12H [facility] Stop: 10/20/17 10:59 Last Admin: 08/27/17 00:10 Dose: Not Given Ascorbic Acid (Vitamin C) 500 mg PO DAILY [facility] Stop: 10/20/17 08:59 Last Admin: 08/26/17 09:30 Dose: Not Given Aspirin (Aspirin Chewable) 81 mg PO DAILY [facility] Stop: 10/20/17 08:59 Last Admin: 08/26/17 09:30 Dose: Not Given Atorvastatin Calcium (Lipitor) 40 mg GT DAILY [facility] PRN Reason: Protocol Stop: 10/20/17 08:59 Last Admin: 08/26/17 09:30 Dose: Not Given Bisacodyl (Dulcolax 10 Mg Supp) 10 mg RC Q72HR PRN PRN Reason: if MOM ineffective Stop: 10/19/17 11:29 Chlorhexidine Gluconate (Peridex) 15 ml MM 08,1999 [facility] Stop: 10/19/17 19:59 Last Admin: 08/26/17 19:32 Dose: 15 ml Cholecalciferol (Vitamin D3) 1,000 iu PO DAILY [facility] Stop: 10/20/17 08:59 Last Admin: 08/26/17 09:30 Dose: Not Given Diltiazem HCl (Cardizem) 20 mg IV Q4HR PRN PRN Reason: HR ABOVE 120 Stop: 09/13/17 11:59 Docusate Sodium (Colace) 100 mg PO DAILY [facility] Stop: 10/20/17 08:59 Last Admin: 08/26/17 09:30 Dose: Not Given Dopamine HCl/Dextrose (Dopamine) 400 mg in 250 mls @ 0 mls/hr IV TITR PRN; Protocol; 0 MCG/KG/MIN PRN Reason: BP MAINTENANCE (PER PROTOCOL) Stop: 10/19/17 11:28 Norepinephrine Bitartrate 8 mg (/ Sodium Chloride) 258 mls @ 34.83 mls/hr IV TITR PRN; Protocol; 18 MCG/MIN PRN Reason: BP MAINTENANCE (PER PROTOCOL) Stop: 10/19/17 11:09 Last Titration: 08/27/17 06:00 Dose: 14 mcg/min, 27.09 mls/hr Piperacillin Sod/Tazobactam (Sod 2.25 gm/ Sodium Chloride) 50 mls @ 100 mls/hr IV Q8HR [facility] Stop: 10/23/17 20:59 Last Infusion: 08/27/17 05:10 Dose: Infused Phenylephrine HCl 10 mg/ (Sodium Chloride) 250 mls @ 0 mls/hr IV TITR [facility]; Per Protocol PRN Reason: Protocol Stop: 10/24/17 10:29 Vancomycin HCl 1.25 gm/ Sodium (Chloride) 250 mls @ 165 mls/hr IV Q24H [facility] Stop: 10/25/17 09:59 Last Infusion: 08/26/17 11:00 Dose: Infused Dextrose (D5w) 1,000 mls @ 50 mls/hr IV .Q20H [facility] Stop: 10/25/17 08:14 Last Infusion: 08/27/17 06:00 Dose: Infused Pantoprazole Sodium 80 mg/ (Sodium Chloride) 100 mls @ 10 mls/hr IV Q10H [facility] Stop: 10/25/17 10:59 Last Infusion: 08/27/17 06:00 Dose: 10 mls/hr Insulin Aspart (Novolog Insulin Sliding Scale) 0 units SUBQ Q6HR [facility] PRN Reason: Protocol Stop: 10/19/17 11:59 Last Admin: 08/27/17 05:33 Dose: Not Given Insulin Detemir (Levemir Insulin) 16 units SUBQ HS [facility] PRN Reason: Protocol Stop: 10/19/17 20:59 Last Admin: 08/26/17 21:31 Dose: Not Given Lactobacillus Rhamnosus (Culturelle 15b) 1 each PO DAILY [facility] Stop: 10/20/17 08:59 Last Admin: 08/26/17 09:30 Dose: Not Given Lorazepam (Ativan) 2 mg IVP Q4HR PRN; Protocol PRN Reason: Agitation Stop: 10/15/17 11:49 Last Admin: 08/27/17 02:35 Dose: 2 mg Magnesium Hydroxide (Milk Of Magnesia) 30 ml PO Q72HR PRN PRN Reason: Constipation Stop: 10/19/17 11:44 Mirtazapine (Remeron) 15 mg GT HS [facility] PRN Reason: Protocol Stop: 10/19/17 20:59 Last Admin: 08/26/17 21:31 Dose: Not Given Miscellaneous (Probiotic Screen) 1 ea MC PRN PRN PRN Reason: PROTOCOL Stop: 10/22/17 10:29 Miscellaneous (Vancomycin Iv Per Pharmacy) 1 ea MC PRN [facility] Stop: 10/23/17 16:59 Multivitamins/Vitamin C (Theragran) 1 tab PO DAILY [facility] Stop: 10/20/17 08:59 Last Admin: 08/26/17 09:31 Dose: Not Given Ondansetron HCl (Zofran) 4 mg IV Q6H PRN PRN Reason: Nausea / Vomiting Stop: 10/19/17 11:40 Simethicone (Mylicon) 80 mg GT Q6HR PRN PRN Reason: Gas Stop: 10/19/17 11:59 Sodium Phosphate (Fleet Enema) 135 ml RC PRN PRN PRN Reason: If MOM/Dulcolax ineffective Stop: 10/19/17 11:29 Zinc Sulfate (Zinc Sulfate) 220 mg PO DAILY [facility] Stop: 10/20/17 08:59 Last Admin: 08/26/17 09:31 Dose: Not Given General: Alert, No acute distress (scattered rhonchi) HEENT: Atraumatic, PERRLA, EOMI, Mucous membr. moist/pink Neck: Supple, Other (TRACH) Cardiovascular: Regular rate Lungs: Other (coarse rhonchi) Abdomen: Bowel sounds, Soft, Other (INTACT GT) Extremities: Edema (upper wxtrmities), Other (upper ext) Neurological: Sensation intact Skin: no Rash Psych/Mental Status: Mood NL - Procedures Procedures: Procedures Procedure Code Date BLOOD TRANSFUSION SERVICE 08805 08/02/17 EXCISION OF STOMACH, ENDO, DIAGN [id number] 07/10/17 INSPECTION OF LOWER INTESTINAL TRACT, ENDO [id number] 07/10/17 PERFORMANCE OF URINARY FILTRATION, <6 HRS/DAY [id number] 07/10/17 RESPIRATORY VENTILATION, GREATER THAN 96 CONSECUTIVE HOURS [id number] 08/02/17 TRANSFUSE NONAUT RED BLOOD CELLS IN PERIPH VEIN, PERC [id number] 08/02/17 Assessment/Plan - Assessment Assessment: # Sepsis # Dysphagia with G tube # GI bleed # Anemia EGD and colonoscopy performed in 07/2017 revealed gastritis and hemorrhoids. SBFT showed delayed transit but no lesion. At that time, it was recommended that the pt have a bleeding scan if she rebled. Now, she is again showing signs of GI bleed, more lower than upper, although brisk upper cannot be ruled out. At this point, the pt has no HD access, and it is looking bleak that she may have this in the near future. Unfortunately, her prognosis is very poor with hemodialysis, and performing endoscopic procedures does not make sense in this setting. Thus, we will hold off on EGD/colo at this time given that she likely will not regain HD access. If she is stabilized from a fluid balance and hemodialysis standpoint, we can revisit the concept of repeat endoscopy. At this point, a palliative discussion with the family is not unreasonable. Plan: - bleeding scan can be done, but see above re endoscopic maneuvers - can continue transfusions, but if palliation is chosen because there is no HD access, then would recommend stopping transfusions as well - can cont protonix to gtt - CBC cycle throughout the day, transfuse to keep hgb > 7
[2017-08-27] MEDS: Lactobacillus Rhamnosus GG 15 Billion CFU CAP.SPRINK PO SCH (09:00)
[2017-08-27] MEDS: Multivitamin Tab PO SCH (09:01)
[2017-08-27] MEDS: Aspirin 81mg Chewable Tab PO SCH (09:02)
[2017-08-27] MEDS: Dextrose 5% 1,000 ML IV SCH (09:20)
--- NOTE | 2017-08-27 09:24 | General Progress Note ---
Subjective - Review of Systems Events since last encounter: unable to obtain HD access yesterday family was notified in no acute distress Subjective: still on levophed Objective - Results Result Diagrams: 08/26/17 22:10 08/26/17 06:05 Recent Labs: Laboratory Last Values WBC 31.3 Th/cmm (4.8-10.8) H* D 08/26/17 22:10 RBC 2.36 Mil/cmm (3.80-5.20) L 08/26/17 22:10 Hgb 7.0 gm/dL (12-16) L* 08/26/17 22:10 Hct 20.2 % (41.0-60) L* 08/26/17 22:10 MCV 85.8 fl (81-100) 08/26/17 22:10 MCH 29.9 pg (27.0-31.0) 08/26/17 22:10 MCHC Differential 34.8 pg (28.0-36.0) 08/26/17 22:10 RDW 14.5 % (11.5-20.0) 08/26/17 22:10 Plt Count 139 Th/cmm (150-400) L 08/26/17 22:10 MPV 10.8 fl 08/26/17 22:10 Neutrophils % CAR MANAGER 08/26/17 22:10 Band Neutrophils % 2 % (0-10) 08/26/17 22:10 Lymphocytes % CAR MANAGER 08/26/17 22:10 Monocytes % CAR MANAGER 08/26/17 22:10 Eosinophils % CAR MANAGER 08/26/17 22:10 Basophils % 0.8 % (0.0-2.0) 08/26/17 06:05 Neutrophils (Manual) 92 % (40-80) H 08/26/17 22:10 Lymphocytes 3 % (20-50) L 08/26/17 22:10 Monocytes 2 % (2-10) 08/26/17 22:10 Eosinophils 0 % (0-5) 08/26/17 22:10 Basophils 0 % (0-3) 08/26/17 22:10 Hypochromia 1+ 08/02/17 15:37 Platelet Estimate ADEQUATE (NORMAL) 08/24/17 07:15 Platelet Morphology NORMAL (NORMAL) 08/20/17 04:45 Anisocytosis 1+ 08/07/17 05:45 Crenated Cell 2+ 08/02/17 15:37 RBC Morph Micro Appear ABNORMAL (NORMAL) 08/02/17 15:37 PT 11.6 SECONDS (9.5-11.5) H 08/25/17 21:06 INR 1.11 (0.5-1.4) 08/25/17 21:06 PTT (Actin FS) 32.3 SECONDS (26.0-38.0) 08/25/17 21:06 Specimen Source Arterial 08/03/17 08:58 Sample Site Right Radial 08/03/17 08:58 pH 7.42 (7.35-7.45) 08/03/17 08:58 pCO2 37.0 mmHg (35.0-45.0) 08/03/17 08:58 pO2 204.0 mmHg (80.0-100.0) H 08/03/17 08:58 HCO3 24.8 mEq/L (20.0-26.0) 08/03/17 08:58 Base Excess -0.2 mEq/L (-3.0-3.0) 08/03/17 08:58 O2 Saturation 100.0 % (92.0-100.0) 08/03/17 08:58 Rhett Test Positive 08/03/17 08:58 Vent Rate 12 08/03/17 08:58 Inspired O2 60 08/03/17 08:58 Tidal Volume 450 08/03/17 08:58 PEEP 5 08/03/17 08:58 Pressure (ins/psv/peep) NA 08/03/17 08:58 Critical Value LZHANG 08/03/17 08:58 Sodium 139 mEq/L (136-145) 08/26/17 06:05 Potassium 3.3 mEq/L (3.5-5.1) L 08/26/17 06:05 Chloride 102 mEq/L (98-107) 08/26/17 06:05 Carbon Dioxide 22.2 mEq/L (21.0-31.0) 08/26/17 06:05 Anion Gap 18.1 (7.0-16.0) H 08/26/17 06:05 BUN 55 mg/dL (7-25) H 08/26/17 06:05 Creatinine 2.2 mg/dL (0.6-1.2) H 08/26/17 06:05 Est GFR ( Amer) TNP 08/26/17 06:05 Est GFR (Non-Af Amer) TNP 08/26/17 06:05 BUN/Creatinine Ratio 25.0 08/26/17 06:05 Glucose 175 mg/dL (70-105) H 08/26/17 06:05 POC Glucose 180 MG/DL (70 - 105) H 08/27/17 05:25 Hemoglobin A1c % 7.7 % (4.0-6.0) H 08/02/17 15:37 Whole Bld Lactic Acid 1.97 mmol/L (0.60-1.99) 08/02/17 13:49 Calcium 8.5 mg/dL (8.6-10.3) L 08/26/17 06:05 Magnesium 1.6 mg/dL (1.9-2.7) L 08/24/17 07:15 Iron 10 ug/dL (27-139) L 08/02/17 13:56 TIBC 135 ug/dL (250-450) L 08/02/17 13:56 Iron Saturation 7 % (15-55) L 08/02/17 13:56 Unsaturated IBC 125 ug/dL (118-369) 08/02/17 13:56 Ferritin 588 ng/mL (15-150) H 08/02/17 13:56 Total Bilirubin 0.4 mg/dL (0.3-1.0) 08/26/17 06:05 Direct Bilirubin 0.09 mg/dL (0.0-0.2) 08/02/17 13:57 AST 34 U/L (13-39) 08/26/17 06:05 ALT 14 U/L (7-52) 08/26/17 06:05 Alkaline Phosphatase 70 U/L (34-104) 08/26/17 06:05 Troponin I 0.10 ng/mL (0.01-0.05) H* D 08/20/17 17:00 B-Natriuretic Peptide 839.0 pg/mL (5.0-100.0) H 08/19/17 04:58 Total Protein 6.3 gm/dL (6.0-8.3) 08/26/17 06:05 Albumin 2.7 gm/dL (3.7-5.3) L 08/26/17 06:05 Globulin 3.6 gm/dL 08/26/17 06:05 Albumin/Globulin Ratio 0.8 (1.0-1.8) L 08/26/17 06:05 Triglycerides 132 mg/dL (<150) 08/04/17 06:30 Cholesterol 55 mg/dL (<200) 08/04/17 06:30 LDL Cholesterol Direct 16 mg/dL (75-193) L 08/04/17 06:30 HDL Cholesterol 13 mg/dL (23-92) L 08/04/17 06:30 Amylase 12 U/L (29-103) L 08/02/17 13:43 Lipase 4 U/L (11-82) L 08/02/17 13:43 TSH 3.74 uIU/ml (0.34-5.60) 08/04/17 06:30 Stool Occult Blood POSITIVE (NEGATIVE) H 08/03/17 17:50 Random Vancomycin 25.7 ug/mL (5.0-40.0) 08/26/17 06:05 Hepatitis A IgM Ab Negative (Negative) 08/08/17 08:15 Hep Bs Antigen Negative (Negative) 08/08/17 08:15 Hep B Core IgM Ab Negative (Negative) 08/08/17 08:15 Hepatitis C Antibody <0.1 s/co ratio (0.0-0.9) 08/08/17 08:15 Blood Type A POSITIVE 08/26/17 23:46 Antibody Screen POSITIVE 08/26/17 23:46 Antibody Identification Anti-K 08/24/17 08:30 NEV[place], IgG Interpret NEGATIVE 08/15/17 07:50 Crossmatch See Detail 08/26/17 23:46 - Physical Exam Vitals and I&O: Vital Signs Temp 97.4 F 08/27/17 07:00 Pulse 68 08/27/17 07:17 Resp 16 08/27/17 07:00 BP 111/33 08/27/17 07:00 Pulse Ox 100 08/27/17 07:17 Intake & Output 08/26/17 08/27/17 08/27/17 18:59 06:59 18:59 Intake Total 3375.485 1660.204 Output Total 0 Balance 3375.485 1660.204 Weight (lbs) 108.125 kg 108.125 kg Intake: Intake, IV Amount 624.005 8984.204 Dextrose 5% 1,000 ml @ 50 1000 mls/hr IV .Q20H [facility] Rx#: [id number] Norepinephrine 8 mg In 251.485 449.371 Sodium Chloride 0.9% 250 ml @ 18 MCG/MIN 34.83 mls /hr IV TITR PRN Rx#: [id number] Pantoprazole 80 mg In 72 110.833 Sodium Chloride 0.9% 100 ml @ 10 mls/hr IV Q10H [facility] Rx#:[id number] Piperacillin Sodium/ 100 100 Tazobact 2.25 gm In Sodium Chloride 0.9% 50 ml @ 100 mls/hr IV Q8HR [facility] Rx#:[id number] Vancomycin HCl 1.25 gm In 250 Sodium Chloride 0.9% 250 ml @ 165 mls/hr IV Q24H [facility] Rx#:[id number] Oral 0 Tube Feeding 0 Blood Product 202 Other 2500 Output: Urine 0 Other: # Bowel Movements 6 4 Stool Characteristics Liquid Liquid Bloody Bloody Active Medications: Current Medications Acetaminophen (Tylenol) 650 mg GT DAILY [facility] Stop: 10/20/17 08:59 Last Admin: 08/27/17 09:02 Dose: Not Given Albuterol/Ipratropium (Duoneb Neb) 3 ml HHN Q4HRT [facility] Stop: 10/19/17 10:59 Last Admin: 08/27/17 07:17 Dose: 3 ml Amiodarone HCl (Cordarone) 200 mg GT Q12H [facility] Stop: 10/20/17 10:59 Last Admin: 08/27/17 00:10 Dose: Not Given Ascorbic Acid (Vitamin C) 500 mg PO DAILY [facility] Stop: 10/20/17 08:59 Last Admin: 08/26/17 09:30 Dose: Not Given Aspirin (Aspirin Chewable) 81 mg PO DAILY [facility] Stop: 10/20/17 08:59 Last Admin: 08/27/17 09:02 Dose: Not Given Atorvastatin Calcium (Lipitor) 40 mg GT DAILY [facility] PRN Reason: Protocol Stop: 10/20/17 08:59 Last Admin: 08/27/17 08:59 Dose: 40 mg Bisacodyl (Dulcolax 10 Mg Supp) 10 mg RC Q72HR PRN PRN Reason: if MOM ineffective Stop: 10/19/17 11:29 Chlorhexidine Gluconate (Peridex) 15 ml MM 0800,1999 [facility] Stop: 10/19/17 19:59 Last Admin: 08/26/17 19:32 Dose: 15 ml Cholecalciferol (Vitamin D3) 1,000 iu PO DAILY [facility] Stop: 10/20/17 08:59 Last Admin: 08/27/17 09:00 Dose: 1,000 iu Diltiazem HCl (Cardizem) 20 mg IV Q4HR PRN PRN Reason: HR ABOVE 120 Stop: 09/13/17 11:59 Docusate Sodium (Colace) 100 mg PO DAILY [facility] Stop: 10/20/17 08:59 Last Admin: 08/26/17 09:30 Dose: Not Given Dopamine HCl/Dextrose (Dopamine) 400 mg in 250 mls @ 0 mls/hr IV TITR PRN; Protocol; 0 MCG/KG/MIN PRN Reason: BP MAINTENANCE (PER PROTOCOL) Stop: 10/19/17 11:28 Norepinephrine Bitartrate 8 mg (/ Sodium Chloride) 258 mls @ 34.83 mls/hr IV TITR PRN; Protocol; 18 MCG/MIN PRN Reason: BP MAINTENANCE (PER PROTOCOL) Stop: 10/19/17 11:09 Last Titration: 08/27/17 06:00 Dose: 14 mcg/min, 27.09 mls/hr Piperacillin Sod/Tazobactam (Sod 2.25 gm/ Sodium Chloride) 50 mls @ 100 mls/hr IV Q8HR [facility] Stop: 10/23/17 20:59 Last Infusion: 08/27/17 05:10 Dose: Infused Phenylephrine HCl 10 mg/ (Sodium Chloride) 250 mls @ 0 mls/hr IV TITR [facility]; Per Protocol PRN Reason: Protocol Stop: 10/24/17 10:29 Vancomycin HCl 1.25 gm/ Sodium (Chloride) 250 mls @ 165 mls/hr IV Q24H [facility] Stop: 10/25/17 09:59 Last Infusion: 08/26/17 11:00 Dose: Infused Dextrose (D5w) 1,000 mls @ 50 mls/hr IV .Q20H [facility] Stop: 10/25/17 08:14 Last Admin: 08/27/17 09:20 Dose: Not Given Pantoprazole Sodium 80 mg/ (Sodium Chloride) 100 mls @ 10 mls/hr IV Q10H [facility] Stop: 10/25/17 10:59 Last Admin: 08/27/17 09:21 Dose: Not Given Insulin Aspart (Novolog Insulin Sliding Scale) 0 units SUBQ Q6HR [facility] PRN Reason: Protocol Stop: 10/19/17 11:59 Last Admin: 08/27/17 05:33 Dose: Not Given Insulin Detemir (Levemir Insulin) 16 units SUBQ HS [facility] PRN Reason: Protocol Stop: 10/19/17 20:59 Last Admin: 08/26/17 21:31 Dose: Not Given Lactobacillus Rhamnosus (Culturelle 15b) 1 each PO DAILY [facility] Stop: 10/20/17 08:59 Last Admin: 08/27/17 09:00 Dose: 1 each Lorazepam (Ativan) 2 mg IVP Q4HR PRN; Protocol PRN Reason: Agitation Stop: 10/15/17 11:49 Last Admin: 08/27/17 02:35 Dose: 2 mg Magnesium Hydroxide (Milk Of Magnesia) 30 ml PO Q72HR PRN PRN Reason: Constipation Stop: 10/19/17 11:44 Mirtazapine (Remeron) 15 mg GT HS [facility] PRN Reason: Protocol Stop: 10/19/17 20:59 Last Admin: 08/26/17 21:31 Dose: Not Given Miscellaneous (Probiotic Screen) 1 ea MC PRN PRN PRN Reason: PROTOCOL Stop: 10/22/17 10:29 Miscellaneous (Vancomycin Iv Per Pharmacy) 1 ea MC PRN [facility] Stop: 10/23/17 16:59 Multivitamins/Vitamin C (Theragran) 1 tab PO DAILY [facility] Stop: 10/20/17 08:59 Last Admin: 08/27/17 09:01 Dose: 1 tab Ondansetron HCl (Zofran) 4 mg IV Q6H PRN PRN Reason: Nausea / Vomiting Stop: 10/19/17 11:40 Simethicone (Mylicon) 80 mg GT Q6HR PRN PRN Reason: Gas Stop: 10/19/17 11:59 Sodium Phosphate (Fleet Enema) 135 ml RC PRN PRN PRN Reason: If MOM/Dulcolax ineffective Stop: 10/19/17 11:29 Zinc Sulfate (Zinc Sulfate) 220 mg PO DAILY [facility] Stop: 10/20/17 08:59 Last Admin: 08/27/17 09:00 Dose: 220 mg General: Alert, No acute distress (scattered rhonchi) HEENT: Atraumatic, PERRLA, EOMI, Mucous membr. moist/pink Neck: Supple, Other (TRACH) Cardiovascular: Regular rate Lungs: Other (coarse rhonchi) Abdomen: Bowel sounds, Soft, Other (INTACT GT) Extremities: Edema (upper wxtrmities), Other (upper ext) Neurological: Sensation intact Skin: no Rash Psych/Mental Status: Mood NL - Procedures Procedures: Procedures Procedure Code Date BLOOD TRANSFUSION SERVICE 44442 08/02/17 EXCISION OF STOMACH, ENDO, DIAGN [id number] 07/10/17 INSPECTION OF LOWER INTESTINAL TRACT, ENDO [id number] 07/10/17 PERFORMANCE OF URINARY FILTRATION, <6 HRS/DAY [id number] 07/10/17 RESPIRATORY VENTILATION, GREATER THAN 96 CONSECUTIVE HOURS [id number] 08/02/17 TRANSFUSE NONAUT RED BLOOD CELLS IN PERIPH VEIN, PERC 52396A1 08/02/17 Nutritional Asmnt/Malnutr-PDOC - Dietary Evaluation Malnutrition Findings (Please click <Entered> for more info): Nutritional Asmnt/Malnutrition Start: 08/05/17 15: 53 Text: Status: Complete Freq: Document 08/05/17 15:53 NAVIN (Rec: 08/05/17 16:19 [facility] Nutritional Asmnt/Malnutrition Patient General Information Nutritional Screening High Risk Diagnosis sepsis, respiratory failure, ESRD Pertinent Medical Hx/Surgical Hx ESRD on HD, respiratory failure with tracheostomy, dysphagia, a fib, anemia, HTN, GERD Subjective Information Pt on vent, not able to interview. Pt was on TF Novosource Renal 30ml/hr continuous, NPO today for surgery. Pt has dialysis ordred per nurse note. Current Diet Order/ Nutrition Support NPO on 08/05 Pertinent Medications vit C, vit D3, colace, novolog , remeron, theragran, protonix , zinc Pertinent Labs 08/05 Na 134, K 3.6, Cl 102, BUN 77, Cr 4.2, Glucose 216, POC 224-233 08/02 A1c 7.7 Nutritional Hx/Data Height 1.6 m Height (Calculated Centimeters) 160.0 Current Weight (lbs) 87.543 kg Weight (Calculated Kilograms) 87.5 Weight (Calculated Grams) 85780.3 [place] Body Weight 115 Body Mass Index (BMI) 34.2 Weight Status Obese GI Symptoms GI Symptoms None Last BM 08/04 Difficult in: None Skin Integrity/Comment: reddened to left/right inner thigh, right lateral index finger, right/left arm; skin tear to left abdominal fold; pressure area to coccy/sacral Estimated Nutritional Goals BEE in Kcals: Adj wt of IBW Calories/Kcals/Kg 30-35 adj wt 61kg Kcals Calculated 5452-8800 Protein: Adj wt of IBW Protein g/k.2-1.4 Protein Calculated 73-85 Fluid: ml 1830-2135ml (1ml/kcal) Nutritional Problem 1. Problem Problem altered nutrition related lab values Etiology hx of ESRD, endocrine dysfunction Signs/Symptoms: BUN 77, Cr 4.2, Glucose 216, POC 224-233, A1c 7.7 Malnutrition Alert Protein-Calorie Malnutrition N/A Is there a minimum of two criteria No selected? Query Text:Check all the applicable criteria. A minimum of two criteria are recommended for diagnosis of either severe or non-severe malnutrition. Intervention/Recommendation Comments 1. Resume TF Novosource Renal 30ml/hr continuous as ordered. increase to goal rate of 40ml /hr continuous as tolerated. This will provide 1920kcal, 87g protein and 688ml free water, meeting 100% of nutritional needs 2. Monitor TF rate, tolerance, wt weekly, skin integrity and labs 3. F/U as high risk in 2-3 days, 08/07-08/08 Expected Outcomes/Goals Expected Outcomes/Goals 1. Pt to meet at least 75% of nutritional needs via nutrition support with tolerance 2. Wt stability, skin to remain intact, labs to approach WNL.
[2017-08-27] MEDS: Chlorhexidine Gluconate 0.12% 15mL Mouthwash MM SCH ×2 (10:20→21:15)
[2017-08-27 14:40] LABS: MEAN CELL VOLUME 91.2 fl (81-100); MEAN CORPUSCULAR HEMOGLOBIN 31.8 pg (27.0-31.0); MEAN CORPUSCULAR HGB CONC 34.9 pg (28.0-36.0); MEAN PLATELET VOLUME 10.1 fl; PLATELET COUNT 152 Th/cmm (150-400); RED BLOOD COUNT 3.41 Mil/cmm (3.80-5.20); RED CELL DISTRIBUTION WIDTH 14.8 % (11.5-20.0)
[2017-08-27 14:55] LABS: HEMATOCRIT 31.1 % (41.0-60); HEMOGLOBIN 10.8 gm/dL (12-16)
[2017-08-27 15:10] LABS: ANION GAP 14.2 (7.0-16.0); BUN - UREA NITROGEN 32 mg/dL (7-25); CALCIUM SERUM 8.8 mg/dL (8.6-10.3); CARBON DIOXIDE 26.4 mEq/L (21.0-31.0); CHLORIDE 103 mEq/L (98-107); CREATININE - SERUM 1.7 mg/dL (0.6-1.2); GLUCOSE 184 mg/dL (70-105); MAGNESIUM 1.6 mg/dL (1.9-2.7); POTASSIUM SERUM 3.6 mEq/L (3.5-5.1); SODIUM SERUM 140 mEq/L (136-145)
--- NOTE | 2017-08-27 15:14 | Infectious Disease Prog Note ---
Infectious Disease Subjective - Review of Systems Service Date: 08/27/17 Events since last encounter: Patient still has GI bleed. The scan was ordered. Subjective: no fever. on levophed. Infectious Disease Objective - Results Result Diagrams: 08/27/17 14:30 08/27/17 14:30 Recent Labs: Laboratory Last Values WBC 14.0 Th/cmm (4.8-10.8) H D 08/27/17 14:30 RBC 3.41 Mil/cmm (3.80-5.20) L 08/27/17 14:30 Hgb 10.8 gm/dL (12-16) L D 08/27/17 14:30 Hct 31.1 % (41.0-60) L D 08/27/17 14:30 MCV 91.2 fl (81-100) 08/27/17 14:30 MCH 31.8 pg (27.0-31.0) H 08/27/17 14:30 MCHC Differential 34.9 pg (28.0-36.0) 08/27/17 14:30 RDW 14.8 % (11.5-20.0) 08/27/17 14:30 Plt Count 152 Th/cmm (150-400) 08/27/17 14:30 MPV 10.1 fl 08/27/17 14:30 Neutrophils % 84.8 % (40.0-80.0) H 08/27/17 14:30 Band Neutrophils % 2 % (0-10) 08/26/17 22:10 Lymphocytes % 3.8 % (20.0-50.0) L 08/27/17 14:30 Monocytes % 10.4 % (2.0-10.0) H 08/27/17 14:30 Eosinophils % 1.0 % (0.0-5.0) 08/27/17 14:30 Basophils % 0.0 % (0.0-2.0) 08/27/17 14:30 Neutrophils (Manual) 92 % (40-80) H 08/26/17 22:10 Lymphocytes 3 % (20-50) L 08/26/17 22:10 Monocytes 2 % (2-10) 08/26/17 22:10 Eosinophils 0 % (0-5) 08/26/17 22:10 Basophils 0 % (0-3) 08/26/17 22:10 Hypochromia 1+ 08/02/17 15:37 Platelet Estimate ADEQUATE (NORMAL) 08/24/17 07:15 Platelet Morphology NORMAL (NORMAL) 08/20/17 04:45 Anisocytosis 1+ 08/07/17 05:45 Crenated Cell 2+ 08/02/17 15:37 RBC Morph Micro Appear ABNORMAL (NORMAL) 08/02/17 15:37 PT 11.6 SECONDS (9.5-11.5) H 08/25/17 21:06 INR 1.11 (0.5-1.4) 08/25/17 21:06 PTT (Actin FS) 32.3 SECONDS (26.0-38.0) 08/25/17 21:06 Specimen Source Arterial 08/03/17 08:58 Sample Site Right Radial 08/03/17 08:58 pH 7.42 (7.35-7.45) 08/03/17 08:58 pCO2 37.0 mmHg (35.0-45.0) 08/03/17 08:58 pO2 204.0 mmHg (80.0-100.0) H 08/03/17 08:58 HCO3 24.8 mEq/L (20.0-26.0) 08/03/17 08:58 Base Excess -0.2 mEq/L (-3.0-3.0) 08/03/17 08:58 O2 Saturation 100.0 % (92.0-100.0) 08/03/17 08:58 Rhett Test Positive 08/03/17 08:58 Vent Rate 12 08/03/17 08:58 Inspired O2 60 08/03/17 08:58 Tidal Volume 450 08/03/17 08:58 PEEP 5 08/03/17 08:58 Pressure (ins/psv/peep) NA 08/03/17 08:58 Critical Value LZHANG 08/03/17 08:58 Sodium 139 mEq/L (136-145) 08/26/17 06:05 Potassium 3.3 mEq/L (3.5-5.1) L 08/26/17 06:05 Chloride 102 mEq/L (98-107) 08/26/17 06:05 Carbon Dioxide 22.2 mEq/L (21.0-31.0) 08/26/17 06:05 Anion Gap 18.1 (7.0-16.0) H 08/26/17 06:05 BUN 55 mg/dL (7-25) H 08/26/17 06:05 Creatinine 2.2 mg/dL (0.6-1.2) H 08/26/17 06:05 Est GFR ( Amer) TNP 08/26/17 06:05 Est GFR (Non-Af Amer) TNP 08/26/17 06:05 BUN/Creatinine Ratio 25.0 08/26/17 06:05 Glucose 175 mg/dL (70-105) H 08/26/17 06:05 POC Glucose 180 MG/DL (70 - 105) H 08/27/17 05:25 Hemoglobin A1c % 7.7 % (4.0-6.0) H 08/02/17 15:37 Whole Bld Lactic Acid 1.97 mmol/L (0.60-1.99) 08/02/17 13:49 Calcium 8.5 mg/dL (8.6-10.3) L 08/26/17 06:05 Magnesium 1.6 mg/dL (1.9-2.7) L 08/24/17 07:15 Iron 10 ug/dL (27-139) L 08/02/17 13:56 TIBC 135 ug/dL (250-450) L 08/02/17 13:56 Iron Saturation 7 % (15-55) L 08/02/17 13:56 Unsaturated IBC 125 ug/dL (118-369) 08/02/17 13:56 Ferritin 588 ng/mL (15-150) H 08/02/17 13:56 Total Bilirubin 0.4 mg/dL (0.3-1.0) 08/26/17 06:05 Direct Bilirubin 0.09 mg/dL (0.0-0.2) 08/02/17 13:57 AST 34 U/L (13-39) 08/26/17 06:05 ALT 14 U/L (7-52) 08/26/17 06:05 Alkaline Phosphatase 70 U/L (34-104) 08/26/17 06:05 Troponin I 0.10 ng/mL (0.01-0.05) H* D 08/20/17 17:00 B-Natriuretic Peptide 839.0 pg/mL (5.0-100.0) H 08/19/17 04:58 Total Protein 6.3 gm/dL (6.0-8.3) 08/26/17 06:05 Albumin 2.7 gm/dL (3.7-5.3) L 08/26/17 06:05 Globulin 3.6 gm/dL 08/26/17 06:05 Albumin/Globulin Ratio 0.8 (1.0-1.8) L 08/26/17 06:05 Triglycerides 132 mg/dL (<150) 08/04/17 06:30 Cholesterol 55 mg/dL (<200) 08/04/17 06:30 LDL Cholesterol Direct 16 mg/dL (75-193) L 08/04/17 06:30 HDL Cholesterol 13 mg/dL (23-92) L 08/04/17 06:30 Amylase 12 U/L (29-103) L 08/02/17 13:43 Lipase 4 U/L (11-82) L 08/02/17 13:43 TSH 3.74 uIU/ml (0.34-5.60) 08/04/17 06:30 Stool Occult Blood POSITIVE (NEGATIVE) H 08/03/17 17:50 Random Vancomycin 25.7 ug/mL (5.0-40.0) 08/26/17 06:05 Hepatitis A IgM Ab Negative (Negative) 08/08/17 08:15 Hep Bs Antigen Negative (Negative) 08/08/17 08:15 Hep B Core IgM Ab Negative (Negative) 08/08/17 08:15 Hepatitis C Antibody <0.1 s/co ratio (0.0-0.9) 08/08/17 08:15 Blood Type A POSITIVE 08/26/17 23:45 Rho(D) Type Cancelled 08/26/17 23:46 Antibody Screen POSITIVE 08/26/17 23:45 Antibody Identification Anti-K 08/24/17 08:30 [place], IgG Interpret NEGATIVE 08/15/17 07:50 Crossmatch See Detail 08/26/17 23:46 Crossmatch (AHG) Cancelled 08/26/17 23:46 Donor Unit # Cancelled 08/26/17 23:46 BBK History Checked Cancelled 08/26/17 23:46 - Physical Exam Vitals and I&O: Vital Signs Temp 97.4 F 08/27/17 07:00 Pulse 118 08/27/17 14:36 Resp 16 08/27/17 08:00 BP 133/36 08/27/17 09:30 Pulse Ox 100 08/27/17 14:36 Intake & Output 08/26/17 08/27/17 08/27/17 18:59 06:59 18:59 Intake Total 3375.485 1660.204 66.113 Output Total 0 Balance 3375.485 1660.204 66.113 Weight (lbs) 108.125 kg 108.125 kg Intake: Intake, IV Amount 369.533 5490.204 66.113 Dextrose 5% 1,000 ml @ 50 1000 mls/hr IV .Q20H [facility] Rx#: [id number] Norepinephrine 8 mg In 251.485 449.371 66.113 Sodium Chloride 0.9% 250 ml @ 18 MCG/MIN 34.83 mls /hr IV TITR PRN Rx#: [id number] Pantoprazole 80 mg In 72 110.833 Sodium Chloride 0.9% 100 ml @ 10 mls/hr IV Q10H [facility] Rx#:[id number] Piperacillin Sodium/ 100 100 Tazobact 2.25 gm In Sodium Chloride 0.9% 50 ml @ 100 mls/hr IV Q8HR [facility] Rx#:[id number] Vancomycin HCl 1.25 gm In 250 Sodium Chloride 0.9% 250 ml @ 165 mls/hr IV Q24H [facility] Rx#:[id number] Oral 0 Tube Feeding 0 Blood Product 202 Other 2500 Output: Urine 0 Other: # Bowel Movements 6 4 Stool Characteristics Liquid Liquid Liquid Bloody Bloody Green Active Medications: Current Medications Acetaminophen (Tylenol) 650 mg GT DAILY [facility] Stop: 10/20/17 08:59 Last Admin: 08/27/17 09:02 Dose: Not Given Albuterol/Ipratropium (Duoneb Neb) 3 ml HHN Q4HRT [facility] Stop: 10/19/17 10:59 Last Admin: 08/27/17 12:30 Dose: 3 ml Amiodarone HCl (Cordarone) 200 mg GT Q12H [facility] Stop: 10/20/17 10:59 Last Admin: 08/27/17 12:27 Dose: Not Given Ascorbic Acid (Vitamin C) 500 mg PO DAILY [facility] Stop: 10/20/17 08:59 Last Admin: 08/27/17 10:20 Dose: 500 mg Aspirin (Aspirin Chewable) 81 mg PO DAILY [facility] Stop: 10/20/17 08:59 Last Admin: 08/27/17 09:02 Dose: Not Given Atorvastatin Calcium (Lipitor) 40 mg GT DAILY [facility] PRN Reason: Protocol Stop: 10/20/17 08:59 Last Admin: 08/27/17 08:59 Dose: 40 mg Bisacodyl (Dulcolax 10 Mg Supp) 10 mg RC Q72HR PRN PRN Reason: if MOM ineffective Stop: 10/19/17 11:29 Chlorhexidine Gluconate (Peridex) 15 ml MM 0800,2000 [facility] Stop: 10/19/17 19:59 Last Admin: 08/27/17 10:20 Dose: 15 ml Cholecalciferol (Vitamin D3) 1,000 iu PO DAILY [facility] Stop: 10/20/17 08:59 Last Admin: 08/27/17 09:00 Dose: 1,000 iu Diltiazem HCl (Cardizem) 20 mg IV Q4HR PRN PRN Reason: HR ABOVE 120 Stop: 09/13/17 11:59 Docusate Sodium (Colace) 100 mg PO DAILY [facility] Stop: 10/20/17 08:59 Last Admin: 08/27/17 10:21 Dose: Not Given Dopamine HCl/Dextrose (Dopamine) 400 mg in 250 mls @ 0 mls/hr IV TITR PRN; Protocol; 0 MCG/KG/MIN PRN Reason: BP MAINTENANCE (PER PROTOCOL) Stop: 10/19/17 11:28 Norepinephrine Bitartrate 8 mg (/ Sodium Chloride) 258 mls @ 34.83 mls/hr IV TITR PRN; Protocol; 18 MCG/MIN PRN Reason: BP MAINTENANCE (PER PROTOCOL) Stop: 10/19/17 11:09 Last Admin: 08/27/17 11:29 Dose: 14 mcg/min, 27.09 mls/hr Piperacillin Sod/Tazobactam (Sod 2.25 gm/ Sodium Chloride) 50 mls @ 100 mls/hr IV Q8HR [facility] Stop: 10/23/17 20:59 Last Infusion: 08/27/17 05:10 Dose: Infused Phenylephrine HCl 10 mg/ (Sodium Chloride) 250 mls @ 0 mls/hr IV TITR [facility]; Per Protocol PRN Reason: Protocol Stop: 10/24/17 10:29 Dextrose (D5w) 1,000 mls @ 50 mls/hr IV .Q20H [facility] Stop: 10/25/17 08:14 Last Admin: 08/27/17 09:20 Dose: Not Given Pantoprazole Sodium 80 mg/ (Sodium Chloride) 100 mls @ 10 mls/hr IV Q10H [facility] Stop: 10/25/17 10:59 Last Admin: 08/27/17 09:21 Dose: Not Given Insulin Aspart (Novolog Insulin Sliding Scale) 0 units SUBQ Q6HR [facility] PRN Reason: Protocol Stop: 10/19/17 11:59 Last Admin: 08/27/17 12:33 Dose: 2 units Insulin Detemir (Levemir Insulin) 16 units SUBQ HS [facility] PRN Reason: Protocol Stop: 10/19/17 20:59 Last Admin: 08/26/17 21:31 Dose: Not Given Lactobacillus Rhamnosus (Culturelle 15b) 1 each PO DAILY [facility] Stop: 10/20/17 08:59 Last Admin: 08/27/17 09:00 Dose: 1 each Lorazepam (Ativan) 2 mg IVP Q4HR PRN; Protocol PRN Reason: Agitation Stop: 10/15/17 11:49 Last Admin: 08/27/17 02:35 Dose: 2 mg Magnesium Hydroxide (Milk Of Magnesia) 30 ml PO Q72HR PRN PRN Reason: Constipation Stop: 10/19/17 11:44 Mirtazapine (Remeron) 15 mg GT HS [facility] PRN Reason: Protocol Stop: 10/19/17 20:59 Last Admin: 08/26/17 21:31 Dose: Not Given Miscellaneous (Probiotic Screen) 1 ea MC PRN PRN PRN Reason: PROTOCOL Stop: 10/22/17 10:29 Miscellaneous (Vancomycin Iv Per Pharmacy) 1 ea MC PRN [facility] Stop: 10/23/17 16:59 Multivitamins/Vitamin C (Theragran) 1 tab PO DAILY [facility] Stop: 10/20/17 08:59 Last Admin: 08/27/17 09:01 Dose: 1 tab Ondansetron HCl (Zofran) 4 mg IV Q6H PRN PRN Reason: Nausea / Vomiting Stop: 10/19/17 11:40 Simethicone (Mylicon) 80 mg GT Q6HR PRN PRN Reason: Gas Stop: 10/19/17 11:59 Sodium Phosphate (Fleet Enema) 135 ml RC PRN PRN PRN Reason: If MOM/Dulcolax ineffective Stop: 10/19/17 11:29 Zinc Sulfate (Zinc Sulfate) 220 mg PO DAILY [facility] Stop: 10/20/17 08:59 Last Admin: 08/27/17 09:00 Dose: 220 mg General: no acute distress, well developed, well nourished HEENT: atraumatic, normocephalic, PERRLA, EOMI Neck: supple, no thyromegaly Cardiovascular: S1S2, regular Lungs: clear to percussion, crackles Abdomen: soft, no tender, no distended Extremities: no cyanosis, no clubbing, no edema Neurological: awake, alert, oriented Skin: intact - Procedures Procedures: Procedures Procedure Code Date BLOOD TRANSFUSION SERVICE 02121 08/02/17 EXCISION OF STOMACH, ENDO, DIAGN [id number] 07/10/17 INSPECTION OF LOWER INTESTINAL TRACT, ENDO [id number] 07/10/17 PERFORMANCE OF URINARY FILTRATION, <6 HRS/DAY [id number] 07/10/17 RESPIRATORY VENTILATION, GREATER THAN 96 CONSECUTIVE HOURS [id number] 08/02/17 TRANSFUSE NONAUT RED BLOOD CELLS IN PERIPH VEIN, PERC [id number] 08/02/17 Infectious Disease Assmt/Plan - Assessment Assessment: 1. Septic shock. versus cardiogenic shock. 2. Gram-negative negative bacteremia treated 3. Pneumonia. 4. 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 5. Diabetes mellitus type 2. 6. Obesity. 7. Hypotension on levophed. 8. Gi bleed. - Plan Plan: Continue vancomycin IV and Zosyn. Patient Is poor prognosis. Nutritional Asmnt/Malnutr-PDOC - Dietary Evaluation Malnutrition Findings (Please click <Entered> for more info): Nutritional Asmnt/Malnutrition Start: 08/05/17 15: 53 Text: Status: Complete Freq: Document 08/05/17 15:53 LCNAVING (Rec: 08/05/17 16:19 HEIDY [id number]) Nutritional Asmnt/Malnutrition Patient General Information Nutritional Screening High Risk Diagnosis sepsis, respiratory failure, ESRD Pertinent Medical Hx/Surgical Hx ESRD on HD, respiratory failure with tracheostomy, dysphagia, a fib, anemia, HTN, GERD Subjective Information Pt on vent, not able to interview. Pt was on TF Novosource Renal 30ml/hr continuous, NPO today for surgery. Pt has dialysis ordred per nurse note. Current Diet Order/ Nutrition Support NPO on 08/05 Pertinent Medications vit C, vit D3, colace, novolog , remeron, theragran, protonix , zinc Pertinent Labs 08/05 Na 134, K 3.6, Cl 102, BUN 77, Cr 4.2, Glucose 216, POC 224-233 08/02 A1c 7.7 Nutritional Hx/Data Height 1.6 m Height (Calculated Centimeters) 160.0 Current Weight (lbs) 87.543 kg Weight (Calculated Kilograms) 87.5 Weight (Calculated Grams) 49467.3 [place] Body Weight 115 Body Mass Index (BMI) 34.2 Weight Status Obese GI Symptoms GI Symptoms None Last BM 08/04 Difficult in: None Skin Integrity/Comment: reddened to left/right inner thigh, right lateral index finger, right/left arm; skin tear to left abdominal fold; pressure area to coccy/sacral Estimated Nutritional Goals BEE in Kcals: Adj wt of IBW Calories/Kcals/Kg 30-35 adj wt 61kg Kcals Calculated 5390-5521 Protein: Adj wt of IBW Protein g/k.2-1.4 Protein Calculated 73-85 Fluid: ml 1830-2135ml (1ml/kcal) Nutritional Problem 1. Problem Problem altered nutrition related lab values Etiology hx of ESRD, endocrine dysfunction Signs/Symptoms: BUN 77, Cr 4.2, Glucose 216, POC 224-233, A1c 7.7 Malnutrition Alert Protein-Calorie Malnutrition N/A Is there a minimum of two criteria No selected? Query Text:Check all the applicable criteria. A minimum of two criteria are recommended for diagnosis of either severe or non-severe malnutrition. Intervention/Recommendation Comments 1. Resume TF Novosource Renal 30ml/hr continuous as ordered. increase to goal rate of 40ml /hr continuous as tolerated. This will provide 1920kcal, 87g protein and 688ml free water, meeting 100% of nutritional needs 2. Monitor TF rate, tolerance, wt weekly, skin integrity and labs 3. F/U as high risk in 2-3 days, 08/07-08/08 Expected Outcomes/Goals Expected Outcomes/Goals 1. Pt to meet at least 75% of nutritional needs via nutrition support with tolerance 2. Wt stability, skin to remain intact, labs to approach WNL.
--- NOTE | 2017-08-27 15:40 | General Progress Note ---
Subjective - Review of Systems Service Date: 08/27/17 Subjective: undergoing Bleeding scan, on vent Objective - Results Result Diagrams: 08/27/17 14:30 08/27/17 14:30 Recent Labs: Laboratory Last Values WBC 14.0 Th/cmm (4.8-10.8) H D 08/27/17 14:30 RBC 3.41 Mil/cmm (3.80-5.20) L 08/27/17 14:30 Hgb 10.8 gm/dL (12-16) L D 08/27/17 14:30 Hct 31.1 % (41.0-60) L D 08/27/17 14:30 MCV 91.2 fl (81-100) 08/27/17 14:30 MCH 31.8 pg (27.0-31.0) H 08/27/17 14:30 MCHC Differential 34.9 pg (28.0-36.0) 08/27/17 14:30 RDW 14.8 % (11.5-20.0) 08/27/17 14:30 Plt Count 152 Th/cmm (150-400) 08/27/17 14:30 MPV 10.1 fl 08/27/17 14:30 Neutrophils % 84.8 % (40.0-80.0) H 08/27/17 14:30 Band Neutrophils % 2 % (0-10) 08/26/17 22:10 Lymphocytes % 3.8 % (20.0-50.0) L 08/27/17 14:30 Monocytes % 10.4 % (2.0-10.0) H 08/27/17 14:30 Eosinophils % 1.0 % (0.0-5.0) 08/27/17 14:30 Basophils % 0.0 % (0.0-2.0) 08/27/17 14:30 Neutrophils (Manual) 92 % (40-80) H 08/26/17 22:10 Lymphocytes 3 % (20-50) L 08/26/17 22:10 Monocytes 2 % (2-10) 08/26/17 22:10 Eosinophils 0 % (0-5) 08/26/17 22:10 Basophils 0 % (0-3) 08/26/17 22:10 Hypochromia 1+ 02/24/18 15:37 Platelet Estimate ADEQUATE (NORMAL) 08/24/17 07:15 Platelet Morphology NORMAL (NORMAL) 08/20/17 04:45 Anisocytosis 1+ 08/07/17 05:45 Crenated Cell 2+ 08/02/17 15:37 RBC Morph Micro Appear ABNORMAL (NORMAL) 08/02/17 15:37 PT 11.6 SECONDS (9.5-11.5) H 08/25/17 21:06 INR 1.11 (0.5-1.4) 08/25/17 21:06 PTT (Actin FS) 32.3 SECONDS (26.0-38.0) 08/25/17 21:06 Specimen Source Arterial 08/03/17 08:58 Sample Site Right Radial 08/03/17 08:58 pH 7.42 (7.35-7.45) 08/03/17 08:58 pCO2 37.0 mmHg (35.0-45.0) 08/03/17 08:58 pO2 204.0 mmHg (80.0-100.0) H 08/03/17 08:58 HCO3 24.8 mEq/L (20.0-26.0) 08/03/17 08:58 Base Excess -0.2 mEq/L (-3.0-3.0) 08/03/17 08:58 O2 Saturation 100.0 % (92.0-100.0) 08/03/17 08:58 Rhett Test Positive 08/03/17 08:58 Vent Rate 12 08/03/17 08:58 Inspired O2 60 08/03/17 08:58 Tidal Volume 450 08/03/17 08:58 PEEP 5 08/03/17 08:58 Pressure (ins/psv/peep) NA 08/03/17 08:58 Critical Value LZHANG 08/03/17 08:58 Sodium 140 mEq/L (136-145) 08/27/17 14:30 Potassium 3.6 mEq/L (3.5-5.1) 08/27/17 14:30 Chloride 103 mEq/L (98-107) 08/27/17 14:30 Carbon Dioxide 26.4 mEq/L (21.0-31.0) 08/27/17 14:30 Anion Gap 14.2 (7.0-16.0) 08/27/17 14:30 BUN 32 mg/dL (7-25) H 08/27/17 14:30 Creatinine 1.7 mg/dL (0.6-1.2) H 08/27/17 14:30 Est GFR ( Amer) TNP 08/27/17 14:30 Est GFR (Non-Af Amer) TNP 08/27/17 14:30 BUN/Creatinine Ratio 18.8 08/27/17 14:30 Glucose 184 mg/dL (70-105) H 08/27/17 14:30 POC Glucose 180 MG/DL (70 - 105) H 08/27/17 05:25 Hemoglobin A1c % 7.7 % (4.0-6.0) H 08/02/17 15:37 Whole Bld Lactic Acid 1.97 mmol/L (0.60-1.99) 08/02/17 13:49 Calcium 8.8 mg/dL (8.6-10.3) 08/27/17 14:30 Magnesium 1.6 mg/dL (1.9-2.7) L 08/27/17 14:30 Iron 10 ug/dL (27-139) L 08/02/17 13:56 TIBC 135 ug/dL (250-450) L 08/02/17 13:56 Iron Saturation 7 % (15-55) L 08/02/17 13:56 Unsaturated IBC 125 ug/dL (118-369) 08/02/17 13:56 Ferritin 588 ng/mL (15-150) H 08/02/17 13:56 Total Bilirubin 0.4 mg/dL (0.3-1.0) 08/26/17 06:05 Direct Bilirubin 0.09 mg/dL (0.0-0.2) 08/02/17 13:57 AST 34 U/L (13-39) 08/26/17 06:05 ALT 14 U/L (7-52) 08/26/17 06:05 Alkaline Phosphatase 70 U/L (34-104) 08/26/17 06:05 Troponin I 0.10 ng/mL (0.01-0.05) H* D 08/20/17 17:00 B-Natriuretic Peptide 839.0 pg/mL (5.0-100.0) H 08/19/17 04:58 Total Protein 6.3 gm/dL (6.0-8.3) 08/26/17 06:05 Albumin 2.7 gm/dL (3.7-5.3) L 08/26/17 06:05 Globulin 3.6 gm/dL 08/26/17 06:05 Albumin/Globulin Ratio 0.8 (1.0-1.8) L 08/26/17 06:05 Triglycerides 132 mg/dL (<150) 08/04/17 06:30 Cholesterol 55 mg/dL (<200) 08/04/17 06:30 LDL Cholesterol Direct 16 mg/dL (75-193) L 08/04/17 06:30 HDL Cholesterol 13 mg/dL (23-92) L 08/04/17 06:30 Amylase 12 U/L (29-103) L 08/02/17 13:43 Lipase 4 U/L (11-82) L 08/02/17 13:43 TSH 3.74 uIU/ml (0.34-5.60) 08/04/17 06:30 Stool Occult Blood POSITIVE (NEGATIVE) H 08/03/17 17:50 Random Vancomycin 40.5 ug/mL (5.0-40.0) H 08/27/17 14:30 Hepatitis A IgM Ab Negative (Negative) 08/08/17 08:15 Hep Bs Antigen Negative (Negative) 08/08/17 08:15 Hep B Core IgM Ab Negative (Negative) 08/08/17 08:15 Hepatitis C Antibody <0.1 s/co ratio (0.0-0.9) 08/08/17 08:15 Blood Type A POSITIVE 08/26/17 23:45 Rho(D) Type Cancelled 08/26/17 23:46 Antibody Screen POSITIVE 08/26/17 23:45 Antibody Identification Anti-K 08/24/17 08:30 NEVIL[place], IgG Interpret NEGATIVE 08/15/17 07:50 Crossmatch See Detail 08/26/17 23:46 Crossmatch (AHG) Cancelled 08/26/17 23:46 Donor Unit # Cancelled 08/26/17 23:46 BBK History Checked Cancelled 08/26/17 23:46 - Physical Exam Vitals and I&O: Vital Signs Temp 97.4 F 08/27/17 11:00 Pulse 118 08/27/17 14:36 Resp 16 08/27/17 11:00 BP 103/41 08/27/17 12:15 Pulse Ox 100 08/27/17 14:36 Intake & Output 08/26/17 08/27/17 08/27/17 18:59 06:59 18:59 Intake Total 3375.485 1660.204 66.113 Output Total 0 Balance 3375.485 1660.204 66.113 Weight (lbs) 108.125 kg 108.125 kg Intake: Intake, IV Amount 167.993 7758.204 66.113 Dextrose 5% 1,000 ml @ 50 1000 mls/hr IV .Q20H [facility] Rx#: [id number] Norepinephrine 8 mg In 251.485 449.371 66.113 Sodium Chloride 0.9% 250 ml @ 18 MCG/MIN 34.83 mls /hr IV TITR PRN Rx#: [id number] Pantoprazole 80 mg In 72 110.833 Sodium Chloride 0.9% 100 ml @ 10 mls/hr IV Q10H [facility] Rx#:[id number] Piperacillin Sodium/ 100 100 Tazobact 2.25 gm In Sodium Chloride 0.9% 50 ml @ 100 mls/hr IV Q8HR [facility] Rx#:[id number] Vancomycin HCl 1.25 gm In 250 Sodium Chloride 0.9% 250 ml @ 165 mls/hr IV Q24H [facility] Rx#:[id number] Oral 0 Tube Feeding 0 Blood Product 202 Other 2500 Output: Urine 0 Other: # Bowel Movements 6 4 Stool Characteristics Liquid Liquid Liquid Bloody Bloody Green Active Medications: Current Medications Acetaminophen (Tylenol) 650 mg GT DAILY [facility] Stop: 10/20/17 08:59 Last Admin: 08/27/17 09:02 Dose: Not Given Albuterol/Ipratropium (Duoneb Neb) 3 ml HHN Q4HRT [facility] Stop: 10/19/17 10:59 Last Admin: 08/27/17 12:30 Dose: 3 ml Amiodarone HCl (Cordarone) 200 mg GT Q12H [facility] Stop: 10/20/17 10:59 Last Admin: 08/27/17 12:27 Dose: Not Given Ascorbic Acid (Vitamin C) 500 mg PO DAILY [facility] Stop: 10/20/17 08:59 Last Admin: 08/27/17 10:20 Dose: 500 mg Aspirin (Aspirin Chewable) 81 mg PO DAILY [facility] Stop: 10/20/17 08:59 Last Admin: 08/27/17 09:02 Dose: Not Given Atorvastatin Calcium (Lipitor) 40 mg GT DAILY [facility] PRN Reason: Protocol Stop: 10/20/17 08:59 Last Admin: 08/27/17 08:59 Dose: 40 mg Bisacodyl (Dulcolax 10 Mg Supp) 10 mg RC Q72HR PRN PRN Reason: if MOM ineffective Stop: 10/19/17 11:29 Chlorhexidine Gluconate (Peridex) 15 ml MM 0800,1999 [facility] Stop: 10/19/17 19:59 Last Admin: 08/27/17 10:20 Dose: 15 ml Cholecalciferol (Vitamin D3) 1,000 iu PO DAILY [facility] Stop: 10/20/17 08:59 Last Admin: 08/27/17 09:00 Dose: 1,000 iu Diltiazem HCl (Cardizem) 20 mg IV Q4HR PRN PRN Reason: HR ABOVE 120 Stop: 09/13/17 11:59 Docusate Sodium (Colace) 100 mg PO DAILY [facility] Stop: 10/20/17 08:59 Last Admin: 08/27/17 10:21 Dose: Not Given Dopamine HCl/Dextrose (Dopamine) 400 mg in 250 mls @ 0 mls/hr IV TITR PRN; Protocol; 0 MCG/KG/MIN PRN Reason: BP MAINTENANCE (PER PROTOCOL) Stop: 10/19/17 11:28 Norepinephrine Bitartrate 8 mg (/ Sodium Chloride) 258 mls @ 34.83 mls/hr IV TITR PRN; Protocol; 18 MCG/MIN PRN Reason: BP MAINTENANCE (PER PROTOCOL) Stop: 10/19/17 11:09 Last Admin: 08/27/17 11:29 Dose: 14 mcg/min, 27.09 mls/hr Piperacillin Sod/Tazobactam (Sod 2.25 gm/ Sodium Chloride) 50 mls @ 100 mls/hr IV Q8HR [facility] Stop: 10/23/17 20:59 Last Infusion: 08/27/17 05:10 Dose: Infused Phenylephrine HCl 10 mg/ (Sodium Chloride) 250 mls @ 0 mls/hr IV TITR [facility]; Per Protocol PRN Reason: Protocol Stop: 10/24/17 10:29 Dextrose (D5w) 1,000 mls @ 50 mls/hr IV .Q20H [facility] Stop: 10/25/17 08:14 Last Admin: 08/27/17 09:20 Dose: Not Given Pantoprazole Sodium 80 mg/ (Sodium Chloride) 100 mls @ 10 mls/hr IV Q10H [facility] Stop: 10/25/17 10:59 Last Admin: 08/27/17 09:21 Dose: Not Given Insulin Aspart (Novolog Insulin Sliding Scale) 0 units SUBQ Q6HR [facility] PRN Reason: Protocol Stop: 10/19/17 11:59 Last Admin: 08/27/17 12:33 Dose: 2 units Insulin Detemir (Levemir Insulin) 16 units SUBQ HS [facility] PRN Reason: Protocol Stop: 10/19/17 20:59 Last Admin: 08/26/17 21:31 Dose: Not Given Lactobacillus Rhamnosus (Culturelle 15b) 1 each PO DAILY [facility] Stop: 10/20/17 08:59 Last Admin: 08/27/17 09:00 Dose: 1 each Lorazepam (Ativan) 2 mg IVP Q4HR PRN; Protocol PRN Reason: Agitation Stop: 10/15/17 11:49 Last Admin: 08/27/17 02:35 Dose: 2 mg Magnesium Hydroxide (Milk Of Magnesia) 30 ml PO Q72HR PRN PRN Reason: Constipation Stop: 10/19/17 11:44 Mirtazapine (Remeron) 15 mg GT HS [facility] PRN Reason: Protocol Stop: 10/19/17 20:59 Last Admin: 08/26/17 21:31 Dose: Not Given Miscellaneous (Probiotic Screen) 1 ea MC PRN PRN PRN Reason: PROTOCOL Stop: 10/22/17 10:29 Miscellaneous (Vancomycin Iv Per Pharmacy) 1 ea MC PRN [facility] Stop: 10/23/17 16:59 Multivitamins/Vitamin C (Theragran) 1 tab PO DAILY [facility] Stop: 10/20/17 08:59 Last Admin: 08/27/17 09:01 Dose: 1 tab Ondansetron HCl (Zofran) 4 mg IV Q6H PRN PRN Reason: Nausea / Vomiting Stop: 10/19/17 11:40 Simethicone (Mylicon) 80 mg GT Q6HR PRN PRN Reason: Gas Stop: 10/19/17 11:59 Sodium Phosphate (Fleet Enema) 135 ml RC PRN PRN PRN Reason: If MOM/Dulcolax ineffective Stop: 10/19/17 11:29 Zinc Sulfate (Zinc Sulfate) 220 mg PO DAILY [facility] Stop: 10/20/17 08:59 Last Admin: 08/27/17 09:00 Dose: 220 mg General: Alert, No acute distress (scattered rhonchi) HEENT: Atraumatic, PERRLA, EOMI, Mucous membr. moist/pink Neck: Supple, Other (TRACH) Cardiovascular: Regular rate, Normal S1, Normal S2 Lungs: Other (coarse rhonchi) Abdomen: Bowel sounds, Soft, Other (INTACT GT) Extremities: Edema (upper wxtrmities), Other (upper ext) Neurological: Sensation intact Skin: no Rash Psych/Mental Status: Mood NL - Procedures Procedures: Procedures Procedure Code Date BLOOD TRANSFUSION SERVICE 40770 08/02/17 EXCISION OF STOMACH, ENDO, DIAGN [id number] 07/10/17 INSPECTION OF LOWER INTESTINAL TRACT, ENDO [id number] 07/10/17 PERFORMANCE OF URINARY FILTRATION, <6 HRS/DAY [id number] 07/10/17 RESPIRATORY VENTILATION, GREATER THAN 96 CONSECUTIVE HOURS [id number] 08/02/17 TRANSFUSE NONAUT RED BLOOD CELLS IN PERIPH VEIN, PERC 00994P5 08/02/17 Assessment/Plan - Assessment Assessment: 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/L UE Edema, Cellulitis Shock Sepsis RF on Vent Acute on Chronic Decomp CHF G (-) Septicemia A. fib to V. tach Severe acute anemia 2/2 GI bleed? - Plan Plan: Lab - Result Diagrams 08/04/17 06:30 08/04/17 06:30 Current Medications Acetaminophen (Tylenol 650mg/20.3ml Suspension) 650 mg GT DAILY [facility] Stop: 10/03/17 08:59 Last Admin: 08/04/17 09:18 Dose: 650 mg Albuterol/Ipratropium (Duoneb Neb) 3 ml HHN Q4HRT [facility] Stop: 10/02/17 10:59 Last Admin: 08/04/17 11:25 Dose: 3 ml Ascorbic Acid (Vitamin C) 500 mg PO DAILY [facility] Stop: 10/03/17 08:59 Last Admin: 08/04/17 09:18 Dose: 500 mg Aspirin (Aspirin Chewable) 81 mg GT DAILY [facility] Stop: 10/03/17 08:59 Last Admin: 08/04/17 09:18 Dose: 81 mg Atorvastatin Calcium (Lipitor) 40 mg GT HS [facility] PRN Reason: Protocol Stop: 10/02/17 20:59 Last Admin: 08/03/17 20:19 Dose: 40 mg Bisacodyl (Dulcolax 10 Mg Supp) 10 mg RC Q72HR PRN PRN Reason: IF MOM INEFFECTIVE Stop: 10/02/17 14:13 Bisacodyl (Dulcolax 10 Mg Supp) 10 mg RC PRN PRN PRN Reason: IF MOM INEFFECTIVE Stop: 10/02/17 14:13 Chlorhexidine Gluconate (Peridex) 15 ml MM 0800,2000 [facility] Stop: 10/02/17 07:59 Last Admin: 08/04/17 08:00 Dose: 15 ml Cholecalciferol (Vitamin D3) 1,000 iu GT DAILY [facility] Stop: 10/03/17 08:59 Last Admin: 08/04/17 09:18 Dose: 1,000 iu Diltiazem HCl (Cardizem) 5 mg IVP Q4H PRN PRN Reason: INCREASE HEART RATE Stop: 10/01/17 21:59 Last Admin: 08/03/17 01:38 Dose: 5 mg Docusate Sodium (Colace) 100 mg PO DAILY [facility] Stop: 10/03/17 08:59 Last Admin: 08/04/17 09:18 Dose: 100 mg Heparin Sodium (Porcine) (Heparin) 5,000 units HD UD [facility] Stop: 08/05/17 08:59 Last Admin: 08/04/17 09:19 Dose: Not Given Fluconazole (Diflucan) 200 mg in 100 mls @ 100 mls/hr IV Q24HR [facility] Stop: 10/02/17 14:59 Last Infusion: 08/03/17 15:40 Dose: Infused Meropenem 500 mg/ Sodium (Chloride) 100 mls @ 100 mls/hr IV Q24H [facility] Stop: 10/02/17 12:59 Last Admin: 08/04/17 13:17 Dose: 100 mls/hr Dopamine HCl/Dextrose (Dopamine) 400 mg in 250 mls @ 0 mls/hr IV TITR PRN; Protocol; Per Protocol PRN Reason: BP MAINTENANCE (PER PROTOCOL) Stop: 10/02/17 07:47 Norepinephrine Bitartrate 4 mg (/ Dextrose) 254 mls @ 0 mls/hr IV TITR PRN; Protocol; Per Protocol PRN Reason: BP MAINTENANCE (PER PROTOCOL) Stop: 10/02/17 08:31 Last Admin: 08/03/17 23:47 Dose: 4 mcg/min, 15.24 mls/hr Colistimethate Sodium 80 mg/ (Sodium Chloride) 100 mls @ 100 mls/hr IV Q36H [facility] Stop: 10/02/17 20:59 Last Infusion: 08/03/17 21:20 Dose: Infused Insulin Aspart (Novolog Insulin Sliding Scale) 0 units SUBQ Q6HR [facility] PRN Reason: Protocol Stop: 10/02/17 00:00 Last Admin: 08/04/17 11:30 Dose: 6 units Lorazepam (Ativan) 1 mg IVP Q2HR PRN; Protocol PRN Reason: Restlessness Stop: 10/01/17 21:18 Last Admin: 08/04/17 01:05 Dose: 1 mg Magnesium Hydroxide (Milk Of Magnesia) 30 ml GT Q72H PRN PRN Reason: NO BM FOR THREE DAYS Stop: 10/02/17 14:13 Mirtazapine (Remeron) 15 mg GT HS [facility] PRN Reason: Protocol Stop: 10/02/17 20:59 Last Admin: 08/03/17 20:19 Dose: 15 mg Miscellaneous (Vancomycin Iv Per Pharmacy) 1 ea PRN PRN PRN Reason: PROTOCOL Stop: 10/01/17 20:42 Miscellaneous (Zosyn Iv Per Pharmacy) 1 ea PRN PRN PRN Reason: PROTOCOL Stop: 10/01/17 20:42 Multivitamins/Vitamin C (Theragran) 1 tab PO DAILY [facility] Stop: 10/03/17 08:59 Last Admin: 08/04/17 09:18 Dose: 1 tab Ondansetron HCl (Zofran Odt) 4 mg PO Q6HR PRN PRN Reason: Nausea / Vomiting Stop: 10/02/17 14:13 Pantoprazole Sodium (Protonix) 40 mg IVP DAILY [facility] Stop: 10/02/17 08:59 Last Admin: 08/04/17 09:18 Dose: 40 mg Simethicone (Mylicon) 80 mg GT Q6H PRN PRN Reason: GAS PAIN Stop: 10/02/17 14:13 Sodium Phosphate (Fleet Enema) 118 ml RC PRN PRN PRN Reason: IF MOM/DULCOLAX INEFFECTIVE Stop: 10/02/17 14:13 Temazepam (Restoril) 15 mg GT HS PRN; Protocol PRN Reason: Insomnia Stop: 10/02/17 14:13 Last Admin: 08/03/17 20:19 Dose: 15 mg Zinc Sulfate (Zinc Sulfate) 220 mg GT DAILY [facility] Stop: 10/03/17 08:59 Last Admin: 08/04/17 09:18 Dose: 220 Lab - Result Diagrams 08/27/17 14:30 08/27/17 14:30 pt. dialyzed yesterday & tolerated it well CXR still showed persistent b/l effusions, CHF, left > right replace K f/u electrolytes. cbc Reccurence of shock, on levo 11 mcg, Amiodarone po BS low, monitor closely, hold Levemir, continue S/S wbc down to 14 reschedule for HD in am due to persistent CHF still lo Hgb/Hct due to severe GI bleed pt. had transfusion 2 U PRBC w/ dialysis if left AVF clotted request placement of sandor cath Nutritional Asmnt/Malnutr-PDOC - Dietary Evaluation Malnutrition Findings (Please click <Entered> for more info): Nutritional Asmnt/Malnutrition Start: 08/05/17 15: 53 Text: Status: Complete Freq: Document 08/05/17 15:53 LCHENG (Rec: 08/05/17 16:19 LCHENG [id number]) Nutritional Asmnt/Malnutrition Patient General Information Nutritional Screening High Risk Diagnosis sepsis, respiratory failure, ESRD Pertinent Medical Hx/Surgical Hx ESRD on HD, respiratory failure with tracheostomy, dysphagia, a fib, anemia, HTN, GERD Subjective Information Pt on vent, not able to interview. Pt was on TF Novosource Renal 30ml/hr continuous, NPO today for surgery. Pt has dialysis ordred per nurse note. Current Diet Order/ Nutrition Support NPO on 08/05 Pertinent Medications vit C, vit D3, colace, novolog , remeron, theragran, protonix , zinc Pertinent Labs 08/05 Na 134, K 3.6, Cl 102, BUN 77, Cr 4.2, Glucose 216, POC 224-233 08/02 A1c 7.7 Nutritional Hx/Data Height 1.6 m Height (Calculated Centimeters) 160.0 Current Weight (lbs) 87.543 kg Weight (Calculated Kilograms) 87.5 Weight (Calculated Grams) 20722.3 [place] Body Weight 115 Body Mass Index (BMI) 34.2 Weight Status Obese GI Symptoms GI Symptoms None Last BM 08/04 Difficult in: None Skin Integrity/Comment: reddened to left/right inner thigh, right lateral index finger, right/left arm; skin tear to left abdominal fold; pressure area to coccy/sacral Estimated Nutritional Goals BEE in Kcals: Adj wt of IBW Calories/Kcals/Kg 30-35 adj wt 61kg Kcals Calculated 0366-3478 Protein: Adj wt of IBW Protein g/k.2-1.4 Protein Calculated 73-85 Fluid: ml 1830-2135ml (1ml/kcal) Nutritional Problem 1. Problem Problem altered nutrition related lab values Etiology hx of ESRD, endocrine dysfunction Signs/Symptoms: BUN 77, Cr 4.2, Glucose 216, POC 224-233, A1c 7.7 Malnutrition Alert Protein-Calorie Malnutrition N/A Is there a minimum of two criteria No selected? Query Text:Check all the applicable criteria. A minimum of two criteria are recommended for diagnosis of either severe or non-severe malnutrition. Intervention/Recommendation Comments 1. Resume TF Novosource Renal 30ml/hr continuous as ordered. increase to goal rate of 40ml /hr continuous as tolerated. This will provide 1920kcal, 87g protein and 688ml free water, meeting 100% of nutritional needs 2. Monitor TF rate, tolerance, wt weekly, skin integrity and labs 3. F/U as high risk in 2-3 days, 08/07-08/08 Expected Outcomes/Goals Expected Outcomes/Goals 1. Pt to meet at least 75% of nutritional needs via nutrition support with tolerance 2. Wt stability, skin to remain intact, labs to approach WNL.
[2017-08-27] MEDS ORDERED: Mag Sulfate 2gm/50mL Premix 2 GM/50 ML BAG IV ONE (16:02)
[2017-08-27 16:14] LABS: BAND NEUTROPHILE 2 % (0-10); BASOPHIL 0 % (0-3); EOSINOPHIL 3 % (0-5); LYMPHOCYTE 3 % (20-50); MONOCYTE 3 % (2-10); NEUTROPHILS 89 % (40-80); TOTAL CELLS COUNTED 100
[2017-08-27 16:15] LABS: MANUAL DIFF REQUIRED? YES
[2017-08-27] MEDS: Insulin Detemir 100 units/mL 10mL Vial SUBQ SCH (21:43)
[2017-08-28] MEDS: Dextrose 5% 1,000 ML IV SCH ×2 (02:00→20:18)
[2017-08-28] MEDS: Pantoprazole 80 MG in Sodium Chloride 0.9% 100 ML IV SCH ×2 (03:00→14:25)
[2017-08-28] MEDS: Albuterol/Ipratropium Neb 3 ML AERS HHN SCH ×6 (03:11→23:03)
[2017-08-28 05:24] LABS: ANION GAP 21.2 (7.0-16.0); BUN - UREA NITROGEN 37 mg/dL (7-25); CALCIUM SERUM 8.3 mg/dL (8.6-10.3); CHLORIDE 103 mEq/L (98-107); CREATININE - SERUM 2.2 mg/dL (0.6-1.2); GLUCOSE 165 mg/dL (70-105); MAGNESIUM 1.8 mg/dL (1.9-2.7); POTASSIUM SERUM 4.2 mEq/L (3.5-5.1); SODIUM SERUM 141 mEq/L (136-145)
[2017-08-28] MEDS: INSULIN ASPART SLIDING SCALE 100 UNITS/ML UNIT SUBQ SCH ×3 (06:40→17:57)
[2017-08-28 07:18] LABS: HEMATOCRIT 27.9 % (41.0-60); HEMOGLOBIN 9.9 gm/dL (12-16); MEAN CELL VOLUME 93.2 fl (81-100); MEAN CORPUSCULAR HEMOGLOBIN 33.1 pg (27.0-31.0); MEAN CORPUSCULAR HGB CONC 35.6 pg (28.0-36.0); MEAN PLATELET VOLUME 9.6 fl; PLATELET COUNT 143 Th/cmm (150-400); RED CELL DISTRIBUTION WIDTH 14.8 % (11.5-20.0)
[2017-08-28 07:55] LABS: LYMPHOCYTE 4 % (20-50); MANUAL DIFF REQUIRED? YES; MONOCYTE 8 % (2-10); NEUTROPHILS 87 % (40-80); TOTAL CELLS COUNTED 100
[2017-08-28 07:56] LABS: ANISOCYTOSIS 1+; BASOPHIL 1 % (0-3); CORRECTED WBC 13.2 Th/cmm (4.8-10.8); PLATELET ESTIMATE ADEQUATE (NORMAL)
[2017-08-28] MEDS: Chlorhexidine Gluconate 0.12% 15mL Mouthwash MM SCH ×2 (08:17→20:46)
--- NOTE | 2017-08-28 08:33 | Diagnostic Imaging Report ---
Exam: Portable chest x-ray. HISTORY: Shortness of breath. Findings: Portable examination of the chest at 0800 hours reviewed the study compared to prior 1 08/26/2017 demonstrates increased opacification left hemithorax most likely pneumonia superimposed effusion. There is evidence for right lower lobe pneumonia and effusion. Tracheostomy tube midline. Bony thorax intact. IMPRESSION: worsening of pneumonic infiltrates, increased left pleural effusion. Follow-up examination recommended.
--- NOTE | 2017-08-28 08:39 | General Progress Note ---
Subjective - Review of Systems Events since last encounter: on vent in no acute distress Subjective: still on levophed Objective - Results Result Diagrams: 08/28/17 06:30 08/28/17 04:20 Recent Labs: Laboratory Last Values WBC 14.0 Th/cmm (4.8-10.8) H 08/28/17 06:30 Corrected WBC (auto) 13.2 Th/cmm (4.8-10.8) H 08/28/17 06:30 RBC 3.00 Mil/cmm (3.80-5.20) L 08/28/17 06:30 Hgb 9.9 gm/dL (12-16) L 08/28/17 06:30 Hct 27.9 % (41.0-60) L 08/28/17 06:30 MCV 93.2 fl (81-100) 08/28/17 06:30 MCH 33.1 pg (27.0-31.0) H 08/28/17 06:30 MCHC Differential 35.6 pg (28.0-36.0) 08/28/17 06:30 RDW 14.8 % (11.5-20.0) 08/28/17 06:30 Plt Count 143 Th/cmm (150-400) L 08/28/17 06:30 MPV 9.6 fl 08/28/17 06:30 Neutrophils % [employer] 08/28/17 06:30 Band Neutrophils % 2 % (0-10) 08/27/17 14:30 Lymphocytes % [employer] MARKETING COORDINATOR 08/28/17 06:30 Monocytes % RETAIL MARKETING COORDINATOR 08/28/17 06:30 Eosinophils % RETAIL MARKETING COORDINATOR 08/28/17 06:30 Basophils % RETAIL MARKETING COORDINATOR 08/28/17 06:30 Neutrophils (Manual) 87 % (40-80) H 08/28/17 06:30 Lymphocytes 4 % (20-50) L 08/28/17 06:30 Monocytes 8 % (2-10) 08/28/17 06:30 Eosinophils 3 % (0-5) 08/27/17 14:30 Basophils 1 % (0-3) 08/28/17 06:30 Nucleated RBCs 6.0 % (0-0) H 08/28/17 06:30 Hypochromia 1+ 08/02/17 15:37 Platelet Estimate ADEQUATE (NORMAL) 08/28/17 06:30 Platelet Morphology NORMAL (NORMAL) 08/20/17 04:45 Anisocytosis 1+ 08/28/17 06:30 Crenated Cell 2+ 08/02/17 15:37 RBC Morph Micro Appear ABNORMAL (NORMAL) 08/02/17 15:37 PT 11.6 SECONDS (9.5-11.5) H 08/25/17 21:06 INR 1.11 (0.5-1.4) 08/25/17 21:06 PTT (Actin FS) 32.3 SECONDS (26.0-38.0) 08/25/17 21:06 Specimen Source Arterial 08/03/17 08:58 Sample Site Right Radial 08/03/17 08:58 pH 7.42 (7.35-7.45) 08/03/17 08:58 pCO2 37.0 mmHg (35.0-45.0) 08/03/17 08:58 pO2 204.0 mmHg (80.0-100.0) H 08/03/17 08:58 HCO3 24.8 mEq/L (20.0-26.0) 08/03/17 08:58 Base Excess -0.2 mEq/L (-3.0-3.0) 08/03/17 08:58 O2 Saturation 100.0 % (92.0-100.0) 08/03/17 08:58 Rhett Test Positive 08/03/17 08:58 Vent Rate 12 08/03/17 08:58 Inspired O2 60 08/03/17 08:58 Tidal Volume 450 08/03/17 08:58 PEEP 5 08/03/17 08:58 Pressure (ins/psv/peep) NA 08/03/17 08:58 Critical Value LZHANG 08/03/17 08:58 Sodium 141 mEq/L (136-145) 08/28/17 04:20 Potassium 4.2 mEq/L (3.5-5.1) 08/28/17 04:20 Chloride 103 mEq/L (98-107) 08/28/17 04:20 Carbon Dioxide 21.0 mEq/L (21.0-31.0) 08/28/17 04:20 Anion Gap 21.2 (7.0-16.0) H 08/28/17 04:20 BUN 37 mg/dL (7-25) H 08/28/17 04:20 Creatinine 2.2 mg/dL (0.6-1.2) H 08/28/17 04:20 Est GFR ( Amer) TNP 08/28/17 04:20 Est GFR (Non-Af Amer) TNP 08/28/17 04:20 BUN/Creatinine Ratio 16.8 08/28/17 04:20 Glucose 165 mg/dL (70-105) H 08/28/17 04:20 POC Glucose 177 MG/DL (70 - 105) H 08/27/17 23:14 Hemoglobin A1c % 7.7 % (4.0-6.0) H 08/02/17 15:37 Whole Bld Lactic Acid 1.97 mmol/L (0.60-1.99) 08/02/17 13:49 Calcium 8.3 mg/dL (8.6-10.3) L 08/28/17 04:20 Magnesium 1.8 mg/dL (1.9-2.7) L 08/28/17 04:20 Iron 10 ug/dL (27-139) L 08/02/17 13:56 TIBC 135 ug/dL (250-450) L 08/02/17 13:56 Iron Saturation 7 % (15-55) L 08/02/17 13:56 Unsaturated IBC 125 ug/dL (118-369) 08/02/17 13:56 Ferritin 588 ng/mL (15-150) H 08/02/17 13:56 Total Bilirubin 0.4 mg/dL (0.3-1.0) 08/26/17 06:05 Direct Bilirubin 0.09 mg/dL (0.0-0.2) 08/02/17 13:57 AST 34 U/L (13-39) 08/26/17 06:05 ALT 14 U/L (7-52) 08/26/17 06:05 Alkaline Phosphatase 70 U/L (34-104) 08/26/17 06:05 Troponin I 0.10 ng/mL (0.01-0.05) H* D 08/20/17 17:00 B-Natriuretic Peptide 839.0 pg/mL (5.0-100.0) H 08/19/17 04:58 Total Protein 6.3 gm/dL (6.0-8.3) 08/26/17 06:05 Albumin 2.7 gm/dL (3.7-5.3) L 08/26/17 06:05 Globulin 3.6 gm/dL 08/26/17 06:05 Albumin/Globulin Ratio 0.8 (1.0-1.8) L 08/26/17 06:05 Triglycerides 132 mg/dL (<150) 08/04/17 06:30 Cholesterol 55 mg/dL (<200) 08/04/17 06:30 LDL Cholesterol Direct 16 mg/dL (75-193) L 08/04/17 06:30 HDL Cholesterol 13 mg/dL (23-92) L 08/04/17 06:30 Amylase 12 U/L (29-103) L 08/02/17 13:43 Lipase 4 U/L (11-82) L 08/02/17 13:43 TSH 3.74 uIU/ml (0.34-5.60) 08/04/17 06:30 Stool Occult Blood POSITIVE (NEGATIVE) H 08/03/17 17:50 Random Vancomycin 40.5 ug/mL (5.0-40.0) H 08/27/17 14:30 Hepatitis A IgM Ab Negative (Negative) 08/08/17 08:15 Hep Bs Antigen Negative (Negative) 08/08/17 08:15 Hep B Core IgM Ab Negative (Negative) 08/08/17 08:15 Hepatitis C Antibody <0.1 s/co ratio (0.0-0.9) 08/08/17 08:15 Blood Type A POSITIVE 08/26/17 23:45 Rho(D) Type Cancelled 08/26/17 23:46 Antibody Screen POSITIVE 08/26/17 23:45 Antibody Identification Anti-K 08/24/17 08:30 NEVILLE, IgG Interpret NEGATIVE 08/15/17 07:50 Crossmatch See Detail 08/26/17 23:46 Crossmatch (AHG) Cancelled 08/26/17 23:46 Donor Unit # Cancelled 08/26/17 23:46 BBK History Checked Cancelled 08/26/17 23:46 - Physical Exam Vitals and I&O: Vital Signs Temp 97.8 F 08/28/17 06:00 Pulse 74 08/28/17 07:25 Resp 12 08/28/17 07:00 BP 105/25 08/28/17 07:00 Pulse Ox 100 08/28/17 07:25 Intake & Output 08/27/17 08/28/17 08/28/17 18:59 06:59 18:59 Intake Total 205.280 612.481 Output Total 2500 Balance 205.280 -1887.519 Weight (lbs) 107.955 kg Intake: Intake, IV Amount 205.280 612.481 Norepinephrine 8 mg In 66.113 414.314 Sodium Chloride 0.9% 250 ml @ 18 MCG/MIN 34.83 mls /hr IV TITR PRN Rx#: [id number] Pantoprazole 80 mg In 89.167 98.167 Sodium Chloride 0.9% 100 ml @ 10 mls/hr IV Q10H [facility] Rx#:[id number] Piperacillin Sodium/ 50 100 Tazobact 2.25 gm In Sodium Chloride 0.9% 50 ml @ 100 mls/hr IV Q8HR [facility] Rx#:[id number] Output: Hemodialysis 2500 Other: # Bowel Movements 2 Stool Characteristics Liquid Liquid Green Green Active Medications: Current Medications Acetaminophen (Tylenol) 650 mg GT DAILY [facility] Stop: 10/20/17 08:59 Last Admin: 08/27/17 09:02 Dose: Not Given Albuterol/Ipratropium (Duoneb Neb) 3 ml HHN Q4HRT [facility] Stop: 10/19/17 10:59 Last Admin: 08/28/17 07:24 Dose: 3 ml Amiodarone HCl (Cordarone) 200 mg GT Q12H [facility] Stop: 10/20/17 10:59 Last Admin: 08/27/17 22:30 Dose: 200 mg Ascorbic Acid (Vitamin C) 500 mg PO DAILY [facility] Stop: 10/20/17 08:59 Last Admin: 08/27/17 10:20 Dose: 500 mg Aspirin (Aspirin Chewable) 81 mg PO DAILY [facility] Stop: 10/20/17 08:59 Last Admin: 08/27/17 09:02 Dose: Not Given Atorvastatin Calcium (Lipitor) 40 mg GT DAILY [facility] PRN Reason: Protocol Stop: 10/20/17 08:59 Last Admin: 08/27/17 08:59 Dose: 40 mg Bisacodyl (Dulcolax 10 Mg Supp) 10 mg RC Q72HR PRN PRN Reason: if MOM ineffective Stop: 10/19/17 11:29 Chlorhexidine Gluconate (Peridex) 15 ml MM 0800,1999 [facility] Stop: 10/19/17 19:59 Last Admin: 08/28/17 08:17 Dose: 15 ml Cholecalciferol (Vitamin D3) 1,000 iu PO DAILY [facility] Stop: 10/20/17 08:59 Last Admin: 08/27/17 09:00 Dose: 1,000 iu Diltiazem HCl (Cardizem) 20 mg IV Q4HR PRN PRN Reason: HR ABOVE 120 Stop: 09/13/17 11:59 Docusate Sodium (Colace) 100 mg PO DAILY [facility] Stop: 10/20/17 08:59 Last Admin: 08/27/17 10:21 Dose: Not Given Dopamine HCl/Dextrose (Dopamine) 400 mg in 250 mls @ 0 mls/hr IV TITR PRN; Protocol; 0 MCG/KG/MIN PRN Reason: BP MAINTENANCE (PER PROTOCOL) Stop: 10/19/17 11:28 Norepinephrine Bitartrate 8 mg (/ Sodium Chloride) 258 mls @ 34.83 mls/hr IV TITR PRN; Protocol; 18 MCG/MIN PRN Reason: BP MAINTENANCE (PER PROTOCOL) Stop: 10/19/17 11:09 Last Titration: 08/28/17 06:05 Dose: 7 mcg/min, 13.54 mls/hr Piperacillin Sod/Tazobactam (Sod 2.25 gm/ Sodium Chloride) 50 mls @ 100 mls/hr IV Q8HR [facility] Stop: 10/23/17 20:59 Last Infusion: 08/28/17 06:05 Dose: Infused Phenylephrine HCl 10 mg/ (Sodium Chloride) 250 mls @ 0 mls/hr IV TITR [facility]OUZIA; Per Protocol PRN Reason: Protocol Stop: 10/24/17 10:29 Dextrose (D5w) 1,000 mls @ 50 mls/hr IV .Q20H [facility] Stop: 10/25/17 08:14 Last Admin: 08/28/17 02:00 Dose: 50 mls/hr Pantoprazole Sodium 80 mg/ (Sodium Chloride) 100 mls @ 10 mls/hr IV Q10H [facility] Stop: 10/25/17 10:59 Last Admin: 08/28/17 03:00 Dose: 10 mls/hr Insulin Aspart (Novolog Insulin Sliding Scale) 0 units SUBQ Q6HR [facility] PRN Reason: Protocol Stop: 10/19/17 11:59 Last Admin: 08/28/17 06:40 Dose: 2 units Insulin Detemir (Levemir Insulin) 16 units SUBQ HS [facility] PRN Reason: Protocol Stop: 10/19/17 20:59 Last Admin: 08/27/17 21:43 Dose: Not Given Lactobacillus Rhamnosus (Culturelle 15b) 1 each PO DAILY [facility] Stop: 10/20/17 08:59 Last Admin: 08/27/17 09:00 Dose: 1 each Lorazepam (Ativan) 2 mg IVP Q4HR PRN; Protocol PRN Reason: Agitation Stop: 10/15/17 11:49 Last Admin: 08/28/17 01:23 Dose: 2 mg Magnesium Hydroxide (Milk Of Magnesia) 30 ml PO Q72HR PRN PRN Reason: Constipation Stop: 10/19/17 11:44 Mirtazapine (Remeron) 15 mg GT HS [facility]OU[facility]IA PRN Reason: Protocol Stop: 10/19/17 20:59 Last Admin: 08/27/17 21:15 Dose: 15 mg Miscellaneous (Probiotic Screen) 1 ea MC PRN PRN PRN Reason: PROTOCOL Stop: 10/22/17 10:29 Miscellaneous (Vancomycin Iv Per Pharmacy) 1 ea MC PRN [facility] Stop: 10/23/17 16:59 Multivitamins/Vitamin C (Theragran) 1 tab PO DAILY [facility] Stop: 10/20/17 08:59 Last Admin: 08/27/17 09:01 Dose: 1 tab Ondansetron HCl (Zofran) 4 mg IV Q6H PRN PRN Reason: Nausea / Vomiting Stop: 10/19/17 11:40 Simethicone (Mylicon) 80 mg GT Q6HR PRN PRN Reason: Gas Stop: 10/19/17 11:59 Sodium Phosphate (Fleet Enema) 135 ml RC PRN PRN PRN Reason: If MOM/Dulcolax ineffective Stop: 10/19/17 11:29 Zinc Sulfate (Zinc Sulfate) 220 mg PO DAILY [facility] Stop: 10/20/17 08:59 Last Admin: 08/27/17 09:00 Dose: 220 mg General: Alert, No acute distress (scattered rhonchi) HEENT: Atraumatic, PERRLA, EOMI, Mucous membr. moist/pink Neck: Supple, Other (TRACH) Cardiovascular: Regular rate, Normal S1, Normal S2 Lungs: Other (coarse rhonchi) Abdomen: Bowel sounds, Soft, Other (INTACT GT) Extremities: Edema (upper wxtrmities), Other (upper ext) Neurological: Sensation intact Skin: no Rash Psych/Mental Status: Mood NL - Procedures Procedures: Procedures Procedure Code Date BLOOD TRANSFUSION SERVICE 82706 08/02/17 EXCISION OF STOMACH, ENDO, DIAGN [id number] 07/10/17 INSPECTION OF LOWER INTESTINAL TRACT, ENDO [id number] 07/10/17 PERFORMANCE OF URINARY FILTRATION, <6 HRS/DAY [id number] 07/10/17 RESPIRATORY VENTILATION, GREATER THAN 96 CONSECUTIVE HOURS [id number] 08/02/17 TRANSFUSE NONAUT RED BLOOD CELLS IN PERIPH VEIN, PERC [id number] 08/02/17 Nutritional Asmnt/Malnutr-PDOC - Dietary Evaluation Malnutrition Findings (Please click <Entered> for more info): Nutritional Asmnt/Malnutrition Start: 08/05/17 15: 53 Text: Status: Complete Freq: Document 08/05/17 15:53 HEN (Rec: 08/05/17 16:19 HENG [id number]) Nutritional Asmnt/Malnutrition Patient General Information Nutritional Screening High Risk Diagnosis sepsis, respiratory failure, ESRD Pertinent Medical Hx/Surgical Hx ESRD on HD, respiratory failure with tracheostomy, dysphagia, a fib, anemia, HTN, GERD Subjective Information Pt on vent, not able to interview. Pt was on TF Novosource Renal 30ml/hr continuous, NPO today for surgery. Pt has dialysis ordred per nurse note. Current Diet Order/ Nutrition Support NPO on 08/05 Pertinent Medications vit C, vit D3, colace, novolog , remeron, theragran, protonix , zinc Pertinent Labs 08/05 Na 134, K 3.6, Cl 102, BUN 77, Cr 4.2, Glucose 216, POC 224-233 08/02 A1c 7.7 Nutritional Hx/Data Height 1.6 m Height (Calculated Centimeters) 160.0 Current Weight (lbs) 87.543 kg Weight (Calculated Kilograms) 87.5 Weight (Calculated Grams) 40365.3 [place] Body Weight 115 Body Mass Index (BMI) 34.2 Weight Status Obese GI Symptoms GI Symptoms None Last BM 08/04 Difficult in: None Skin Integrity/Comment: reddened to left/right inner thigh, right lateral index finger, right/left arm; skin tear to left abdominal fold; pressure area to coccy/sacral Estimated Nutritional Goals BEE in Kcals: Adj wt of IBW Calories/Kcals/Kg 30-35 adj wt 61kg Kcals Calculated 2351-4310 Protein: Adj wt of IBW Protein g/k.2-1.4 Protein Calculated 73-85 Fluid: ml 1830-2135ml (1ml/kcal) Nutritional Problem 1. Problem Problem altered nutrition related lab values Etiology hx of ESRD, endocrine dysfunction Signs/Symptoms: BUN 77, Cr 4.2, Glucose 216, POC 224-233, A1c 7.7 Malnutrition Alert Protein-Calorie Malnutrition N/A Is there a minimum of two criteria No selected? Query Text:Check all the applicable criteria. A minimum of two criteria are recommended for diagnosis of either severe or non-severe malnutrition. Intervention/Recommendation Comments 1. Resume TF Novosource Renal 30ml/hr continuous as ordered. increase to goal rate of 40ml /hr continuous as tolerated. This will provide 1920kcal, 87g protein and 688ml free water, meeting 100% of nutritional needs 2. Monitor TF rate, tolerance, wt weekly, skin integrity and labs 3. F/U as high risk in 2-3 days, 08/07-08/08 Expected Outcomes/Goals Expected Outcomes/Goals 1. Pt to meet at least 75% of nutritional needs via nutrition support with tolerance 2. Wt stability, skin to remain intact, labs to approach WNL.
--- NOTE | 2017-08-28 08:42 | Diagnostic Imaging Report ---
Nuclear medicine GI bleeding scan HISTORY: GI bleeding COMPARISON: None Technique/procedure: 24.9 mCi of technetium labeled tagged red blood cell was administered intravenously and multiple sequential images were obtained frock to 2 hours. Exam is limited due to technical factors. Increased background activity is noted. No obvious active GI bleeding identified. IMPRESSION: Limited exam. No obvious active GI bleeding identified. Please correlate with clinical findings.
--- NOTE | 2017-08-28 08:58 | GI Progress Note ---
Subjective - Review of Systems Service Date: 08/28/17 Subjective: Was able to have HD yesterday, hgb stable this morning Objective - Results Result Diagrams: 08/28/17 06:30 08/28/17 04:20 Recent Labs: Laboratory Last Values WBC 14.0 Th/cmm (4.8-10.8) H 08/28/17 06:30 Corrected WBC (auto) 13.2 Th/cmm (4.8-10.8) H 08/28/17 06:30 RBC 3.00 Mil/cmm (3.80-5.20) L 08/28/17 06:30 Hgb 9.9 gm/dL (12-16) L 08/28/17 06:30 Hct 27.9 % (41.0-60) L 08/28/17 06:30 MCV 93.2 fl (81-100) 08/28/17 06:30 MCH 33.1 pg (27.0-31.0) H 08/28/17 06:30 MCHC Differential 35.6 pg (28.0-36.0) 08/28/17 06:30 RDW 14.8 % (11.5-20.0) 08/28/17 06:30 Plt Count 143 Th/cmm (150-400) L 08/28/17 06:30 MPV 9.6 fl 08/28/17 06:30 Neutrophils % [employer] 08/28/17 06:30 Band Neutrophils % 2 % (0-10) 08/27/17 14:30 Lymphocytes % [employer] 08/28/17 06:30 Monocytes % [employer] 08/28/17 06:30 Eosinophils % [employer] 08/28/17 06:30 Basophils % [employer] 08/28/17 06:30 Neutrophils (Manual) 87 % (40-80) H 08/28/17 06:30 Lymphocytes 4 % (20-50) L 08/28/17 06:30 Monocytes 8 % (2-10) 08/28/17 06:30 Eosinophils 3 % (0-5) 08/27/17 14:30 Basophils 1 % (0-3) 08/28/17 06:30 Nucleated RBCs 6.0 % (0-0) H 08/28/17 06:30 Hypochromia 1+ 08/02/17 15:37 Platelet Estimate ADEQUATE (NORMAL) 08/28/17 06:30 Platelet Morphology NORMAL (NORMAL) 08/20/17 04:45 Anisocytosis 1+ 08/28/17 06:30 Crenated Cell 2+ 08/02/17 15:37 RBC Morph Micro Appear ABNORMAL (NORMAL) 08/02/17 15:37 PT 11.6 SECONDS (9.5-11.5) H 08/25/17 21:06 INR 1.11 (0.5-1.4) 08/25/17 21:06 PTT (Actin FS) 32.3 SECONDS (26.0-38.0) 08/25/17 21:06 Specimen Source Arterial 08/03/17 08:58 Sample Site Right Radial 08/03/17 08:58 pH 7.42 (7.35-7.45) 08/03/17 08:58 pCO2 37.0 mmHg (35.0-45.0) 08/03/17 08:58 pO2 204.0 mmHg (80.0-100.0) H 08/03/17 08:58 HCO3 24.8 mEq/L (20.0-26.0) 08/03/17 08:58 Base Excess -0.2 mEq/L (-3.0-3.0) 08/03/17 08:58 O2 Saturation 100.0 % (92.0-100.0) 08/03/17 08:58 Rhett Test Positive 08/03/17 08:58 Vent Rate 12 08/03/17 08:58 Inspired O2 60 08/03/17 08:58 Tidal Volume 450 08/03/17 08:58 PEEP 5 08/03/17 08:58 Pressure (ins/psv/peep) NA 08/03/17 08:58 Critical Value LZHANG 08/03/17 08:58 Sodium 141 mEq/L (136-145) 08/28/17 04:20 Potassium 4.2 mEq/L (3.5-5.1) 08/28/17 04:20 Chloride 103 mEq/L (98-107) 08/28/17 04:20 Carbon Dioxide 21.0 mEq/L (21.0-31.0) 08/28/17 04:20 Anion Gap 21.2 (7.0-16.0) H 08/28/17 04:20 BUN 37 mg/dL (7-25) H 08/28/17 04:20 Creatinine 2.2 mg/dL (0.6-1.2) H 08/28/17 04:20 Est GFR ( Amer) TNP 08/28/17 04:20 Est GFR (Non-Af Amer) TNP 08/28/17 04:20 BUN/Creatinine Ratio 16.8 08/28/17 04:20 Glucose 165 mg/dL (70-105) H 08/28/17 04:20 POC Glucose 177 MG/DL (70 - 105) H 08/27/17 23:14 Hemoglobin A1c % 7.7 % (4.0-6.0) H 08/02/17 15:37 Whole Bld Lactic Acid 1.97 mmol/L (0.60-1.99) 08/02/17 13:49 Calcium 8.3 mg/dL (8.6-10.3) L 08/28/17 04:20 Magnesium 1.8 mg/dL (1.9-2.7) L 08/28/17 04:20 Iron 10 ug/dL (27-139) L 08/02/17 13:56 TIBC 135 ug/dL (250-450) L 08/02/17 13:56 Iron Saturation 7 % (15-55) L 08/02/17 13:56 Unsaturated IBC 125 ug/dL (118-369) 08/02/17 13:56 Ferritin 588 ng/mL (15-150) H 08/02/17 13:56 Total Bilirubin 0.4 mg/dL (0.3-1.0) 08/26/17 06:05 Direct Bilirubin 0.09 mg/dL (0.0-0.2) 08/02/17 13:57 AST 34 U/L (13-39) 08/26/17 06:05 ALT 14 U/L (7-52) 08/26/17 06:05 Alkaline Phosphatase 70 U/L (34-104) 08/26/17 06:05 Troponin I 0.10 ng/mL (0.01-0.05) H* D 08/20/17 17:00 B-Natriuretic Peptide 839.0 pg/mL (5.0-100.0) H 08/19/17 04:58 Total Protein 6.3 gm/dL (6.0-8.3) 08/26/17 06:05 Albumin 2.7 gm/dL (3.7-5.3) L 08/26/17 06:05 Globulin 3.6 gm/dL 08/26/17 06:05 Albumin/Globulin Ratio 0.8 (1.0-1.8) L 08/26/17 06:05 Triglycerides 132 mg/dL (<150) 08/04/17 06:30 Cholesterol 55 mg/dL (<200) 08/04/17 06:30 LDL Cholesterol Direct 16 mg/dL (75-193) L 08/04/17 06:30 HDL Cholesterol 13 mg/dL (23-92) L 08/04/17 06:30 Amylase 12 U/L (29-103) L 08/02/17 13:43 Lipase 4 U/L (11-82) L 08/02/17 13:43 TSH 3.74 uIU/ml (0.34-5.60) 08/04/17 06:30 Stool Occult Blood POSITIVE (NEGATIVE) H 08/03/17 17:50 Random Vancomycin 40.5 ug/mL (5.0-40.0) H 08/27/17 14:30 Hepatitis A IgM Ab Negative (Negative) 08/08/17 08:15 Hep Bs Antigen Negative (Negative) 08/08/17 08:15 Hep B Core IgM Ab Negative (Negative) 08/08/17 08:15 Hepatitis C Antibody <0.1 s/co ratio (0.0-0.9) 08/08/17 08:15 Blood Type A POSITIVE 08/26/17 23:45 Rho(D) Type Cancelled 08/26/17 23:46 Antibody Screen POSITIVE 08/26/17 23:45 Antibody Identification Anti-K 08/24/17 08:30 NEVILLE, IgG Interpret NEGATIVE 08/15/17 07:50 Crossmatch See Detail 08/26/17 23:46 Crossmatch (AHG) Cancelled 08/26/17 23:46 Donor Unit # Cancelled 08/26/17 23:46 BBK History Checked Cancelled 08/26/17 23:46 - Physical Exam Vitals and I&O: Vital Signs Temp 97.8 F 08/28/17 06:00 Pulse 74 08/28/17 07:25 Resp 12 08/28/17 07:00 BP 105/25 08/28/17 07:00 Pulse Ox 100 08/28/17 07:25 Intake & Output 08/27/17 08/28/17 08/28/17 18:59 06:59 18:59 Intake Total 205.280 612.481 Output Total 2500 Balance 205.280 -1887.519 Weight (lbs) 107.955 kg Intake: Intake, IV Amount 205.280 612.481 Norepinephrine 8 mg In 66.113 414.314 Sodium Chloride 0.9% 250 ml @ 18 MCG/MIN 34.83 mls /hr IV TITR PRN Rx#: [id number] Pantoprazole 80 mg In 89.167 98.167 Sodium Chloride 0.9% 100 ml @ 10 mls/hr IV Q10H [facility] Rx#:[id number] Piperacillin Sodium/ 50 100 Tazobact 2.25 gm In Sodium Chloride 0.9% 50 ml @ 100 mls/hr IV Q8HR [facility] Rx#:[id number] Output: Hemodialysis 2500 Other: # Bowel Movements 2 Stool Characteristics Liquid Liquid Green Green Active Medications: Current Medications Acetaminophen (Tylenol) 650 mg GT DAILY [facility] Stop: 10/20/17 08:59 Last Admin: 08/27/17 09:02 Dose: Not Given Albuterol/Ipratropium (Duoneb Neb) 3 ml HHN Q4HRT [facility] Stop: 10/19/17 10:59 Last Admin: 08/28/17 07:24 Dose: 3 ml Amiodarone HCl (Cordarone) 200 mg GT Q12H [facility] Stop: 10/20/17 10:59 Last Admin: 08/27/17 22:30 Dose: 200 mg Ascorbic Acid (Vitamin C) 500 mg PO DAILY [facility] Stop: 10/20/17 08:59 Last Admin: 08/27/17 10:20 Dose: 500 mg Aspirin (Aspirin Chewable) 81 mg PO DAILY [facility] Stop: 10/20/17 08:59 Last Admin: 08/27/17 09:02 Dose: Not Given Atorvastatin Calcium (Lipitor) 40 mg GT DAILY [facility] PRN Reason: Protocol Stop: 10/20/17 08:59 Last Admin: 08/27/17 08:59 Dose: 40 mg Bisacodyl (Dulcolax 10 Mg Supp) 10 mg RC Q72HR PRN PRN Reason: if MOM ineffective Stop: 10/19/17 11:29 Chlorhexidine Gluconate (Peridex) 15 ml MM 08,1999 [facility] Stop: 10/19/17 19:59 Last Admin: 08/28/17 08:17 Dose: 15 ml Cholecalciferol (Vitamin D3) 1,000 iu PO DAILY [facility] Stop: 10/20/17 08:59 Last Admin: 08/27/17 09:00 Dose: 1,000 iu Diltiazem HCl (Cardizem) 20 mg IV Q4HR PRN PRN Reason: HR ABOVE 120 Stop: 09/13/17 11:59 Docusate Sodium (Colace) 100 mg PO DAILY [facility] Stop: 10/20/17 08:59 Last Admin: 08/27/17 10:21 Dose: Not Given Dopamine HCl/Dextrose (Dopamine) 400 mg in 250 mls @ 0 mls/hr IV TITR PRN; Protocol; 0 MCG/KG/MIN PRN Reason: BP MAINTENANCE (PER PROTOCOL) Stop: 10/19/17 11:28 Norepinephrine Bitartrate 8 mg (/ Sodium Chloride) 258 mls @ 34.83 mls/hr IV TITR PRN; Protocol; 18 MCG/MIN PRN Reason: BP MAINTENANCE (PER PROTOCOL) Stop: 10/19/17 11:09 Last Titration: 08/28/17 06:05 Dose: 7 mcg/min, 13.54 mls/hr Piperacillin Sod/Tazobactam (Sod 2.25 gm/ Sodium Chloride) 50 mls @ 100 mls/hr IV Q8HR [facility] Stop: 10/23/17 20:59 Last Infusion: 08/28/17 06:05 Dose: Infused Phenylephrine HCl 10 mg/ (Sodium Chloride) 250 mls @ 0 mls/hr IV TITR [facility]; Per Protocol PRN Reason: Protocol Stop: 10/24/17 10:29 Dextrose (D5w) 1,000 mls @ 50 mls/hr IV .Q20H [facility] Stop: 10/25/17 08:14 Last Admin: 08/28/17 02:00 Dose: 50 mls/hr Pantoprazole Sodium 80 mg/ (Sodium Chloride) 100 mls @ 10 mls/hr IV Q10H [facility] Stop: 10/25/17 10:59 Last Admin: 08/28/17 03:00 Dose: 10 mls/hr Insulin Aspart (Novolog Insulin Sliding Scale) 0 units SUBQ Q6HR [facility] PRN Reason: Protocol Stop: 10/19/17 11:59 Last Admin: 08/28/17 06:40 Dose: 2 units Insulin Detemir (Levemir Insulin) 16 units SUBQ HS [facility] PRN Reason: Protocol Stop: 10/19/17 20:59 Last Admin: 08/27/17 21:43 Dose: Not Given Lactobacillus Rhamnosus (Culturelle 15b) 1 each PO DAILY [facility] Stop: 10/20/17 08:59 Last Admin: 08/27/17 09:00 Dose: 1 each Lorazepam (Ativan) 2 mg IVP Q4HR PRN; Protocol PRN Reason: Agitation Stop: 10/15/17 11:49 Last Admin: 08/28/17 01:23 Dose: 2 mg Magnesium Hydroxide (Milk Of Magnesia) 30 ml PO Q72HR PRN PRN Reason: Constipation Stop: 10/19/17 11:44 Mirtazapine (Remeron) 15 mg GT HS [facility] PRN Reason: Protocol Stop: 10/19/17 20:59 Last Admin: 08/27/17 21:15 Dose: 15 mg Miscellaneous (Probiotic Screen) 1 ea MC PRN PRN PRN Reason: PROTOCOL Stop: 10/22/17 10:29 Miscellaneous (Vancomycin Iv Per Pharmacy) 1 ea MC PRN [facility] Stop: 10/23/17 16:59 Multivitamins/Vitamin C (Theragran) 1 tab PO DAILY [facility] Stop: 10/20/17 08:59 Last Admin: 08/27/17 09:01 Dose: 1 tab Ondansetron HCl (Zofran) 4 mg IV Q6H PRN PRN Reason: Nausea / Vomiting Stop: 10/19/17 11:40 Simethicone (Mylicon) 80 mg GT Q6HR PRN PRN Reason: Gas Stop: 10/19/17 11:59 Sodium Phosphate (Fleet Enema) 135 ml RC PRN PRN PRN Reason: If MOM/Dulcolax ineffective Stop: 10/19/17 11:29 Zinc Sulfate (Zinc Sulfate) 220 mg PO DAILY [facility] Stop: 10/20/17 08:59 Last Admin: 08/27/17 09:00 Dose: 220 mg HEENT: Atraumatic, EOMI Neck: Supple Cardiovascular: Regular rate Lungs: Other (coarse rhonchi) Abdomen: Bowel sounds, Soft, Other (INTACT GT), no Distended, no Rebound, no Guarding Extremities: Edema (upper wxtrmities), Other (upper ext) Neurological: Sensation intact Skin: no Rash Psych/Mental Status: Mood NL - Procedures Procedures: Procedures Procedure Code Date BLOOD TRANSFUSION SERVICE 63908 08/02/17 EXCISION OF STOMACH, ENDO, DIAGN [id number] 07/10/17 INSPECTION OF LOWER INTESTINAL TRACT, ENDO [id number] 07/10/17 PERFORMANCE OF URINARY FILTRATION, <6 HRS/DAY [id number] 07/10/17 RESPIRATORY VENTILATION, GREATER THAN 96 CONSECUTIVE HOURS [id number] 08/02/17 TRANSFUSE NONAUT RED BLOOD CELLS IN PERIPH VEIN, PERC [id number] 08/02/17 Assessment/Plan - Assessment Assessment: # Sepsis # Dysphagia with G tube # GI bleed # Anemia EGD and colonoscopy performed in 07/2017 revealed gastritis and hemorrhoids. SBFT showed delayed transit but no lesion. At that time, it was recommended that the pt have a bleeding scan if she rebled. Now, she is again showed signs of GI bleed on 08/25-, more lower than upper, although brisk upper cannot be ruled out. Bleeding scan on 08/27 did not show active bleed, and her stool has become brown. She may have bled from small bowel source, or from her known hemorrhoids. She was able to get dialysis on 08/27, and I suspect this has helped. Will hold off on further endoscopy given her high risk and previous negative examination unless she rebleeds. Plan: - hold off on EGD/colo as above - can cont protonix to gtt - CBC cycle throughout the day, transfuse to keep hgb > 7
[2017-08-28] MEDS: Aspirin 81mg Chewable Tab PO SCH (09:02)
[2017-08-28] MEDS: Lactobacillus Rhamnosus GG 15 Billion CFU CAP.SPRINK PO SCH (09:02)
[2017-08-28] MEDS: Multivitamin Tab PO SCH (09:02)
--- NOTE | 2017-08-28 13:21 | General Progress Note ---
Subjective - Review of Systems Service Date: 08/28/17 Subjective: more awake today, talking, throwing pillows Objective - Results Result Diagrams: 08/28/17 06:30 08/28/17 04:20 Recent Labs: Laboratory Last Values WBC 14.0 Th/cmm (4.8-10.8) H 08/28/17 06:30 Corrected WBC (auto) 13.2 Th/cmm (4.8-10.8) H 08/28/17 06:30 RBC 3.00 Mil/cmm (3.80-5.20) L 08/28/17 06:30 Hgb 9.9 gm/dL (12-16) L 08/28/17 06:30 Hct 27.9 % (41.0-60) L 08/28/17 06:30 MCV 93.2 fl (81-100) 08/28/17 06:30 MCH 33.1 pg (27.0-31.0) H 08/28/17 06:30 MCHC Differential 35.6 pg (28.0-36.0) 08/28/17 06:30 RDW 14.8 % (11.5-20.0) 08/28/17 06:30 Plt Count 143 Th/cmm (150-400) L 08/28/17 06:30 MPV 9.6 fl 08/28/17 06:30 Neutrophils % [employer] 08/28/17 06:30 Band Neutrophils % 2 % (0-10) 08/27/17 14:30 Lymphocytes % [employer] 08/28/17 06:30 Monocytes % [employer] 08/28/17 06:30 Eosinophils % [employer] 08/28/17 06:30 Basophils % [employer] 08/28/17 06:30 Neutrophils (Manual) 87 % (40-80) H 08/28/17 06:30 Lymphocytes 4 % (20-50) L 08/28/17 06:30 Monocytes 8 % (2-10) 08/28/17 06:30 Eosinophils 3 % (0-5) 08/27/17 14:30 Basophils 1 % (0-3) 08/28/17 06:30 Nucleated RBCs 6.0 % (0-0) H 08/28/17 06:30 Hypochromia 1+ 08/02/17 15:37 Platelet Estimate ADEQUATE (NORMAL) 08/28/17 06:30 Platelet Morphology NORMAL (NORMAL) 08/20/17 04:45 Anisocytosis 1+ 08/28/17 06:30 Crenated Cell 2+ 08/02/17 15:37 RBC Morph Micro Appear ABNORMAL (NORMAL) 08/02/17 15:37 PT 11.6 SECONDS (9.5-11.5) H 08/25/17 21:06 INR 1.11 (0.5-1.4) 08/25/17 21:06 PTT (Actin FS) 32.3 SECONDS (26.0-38.0) 08/25/17 21:06 Specimen Source Arterial 08/03/17 08:58 Sample Site Right Radial 08/03/17 08:58 pH 7.42 (7.35-7.45) 08/03/17 08:58 pCO2 37.0 mmHg (35.0-45.0) 08/03/17 08:58 pO2 204.0 mmHg (80.0-100.0) H 08/03/17 08:58 HCO3 24.8 mEq/L (20.0-26.0) 08/03/17 08:58 Base Excess -0.2 mEq/L (-3.0-3.0) 08/03/17 08:58 O2 Saturation 100.0 % (92.0-100.0) 08/03/17 08:58 Rhett Test Positive 08/03/17 08:58 Vent Rate 12 08/03/17 08:58 Inspired O2 60 08/03/17 08:58 Tidal Volume 450 08/03/17 08:58 PEEP 5 08/03/17 08:58 Pressure (ins/psv/peep) NA 08/03/17 08:58 Critical Value LZHANG 08/03/17 08:58 Sodium 141 mEq/L (136-145) 08/28/17 04:20 Potassium 4.2 mEq/L (3.5-5.1) 08/28/17 04:20 Chloride 103 mEq/L (98-107) 08/28/17 04:20 Carbon Dioxide 21.0 mEq/L (21.0-31.0) 08/28/17 04:20 Anion Gap 21.2 (7.0-16.0) H 08/28/17 04:20 BUN 37 mg/dL (7-25) H 08/28/17 04:20 Creatinine 2.2 mg/dL (0.6-1.2) H 08/28/17 04:20 Est GFR ( Amer) TNP 08/28/17 04:20 Est GFR (Non-Af Amer) TNP 08/28/17 04:20 BUN/Creatinine Ratio 16.8 08/28/17 04:20 Glucose 165 mg/dL (70-105) H 08/28/17 04:20 POC Glucose 154 MG/DL (70 - 105) H 08/28/17 11:55 Hemoglobin A1c % 7.7 % (4.0-6.0) H 08/02/17 15:37 Whole Bld Lactic Acid 1.97 mmol/L (0.60-1.99) 08/02/17 13:49 Calcium 8.3 mg/dL (8.6-10.3) L 08/28/17 04:20 Magnesium 1.8 mg/dL (1.9-2.7) L 08/28/17 04:20 Iron 10 ug/dL (27-139) L 08/02/17 13:56 TIBC 135 ug/dL (250-450) L 08/02/17 13:56 Iron Saturation 7 % (15-55) L 08/02/17 13:56 Unsaturated IBC 125 ug/dL (118-369) 08/02/17 13:56 Ferritin 588 ng/mL (15-150) H 08/02/17 13:56 Total Bilirubin 0.4 mg/dL (0.3-1.0) 08/26/17 06:05 Direct Bilirubin 0.09 mg/dL (0.0-0.2) 08/02/17 13:57 AST 34 U/L (13-39) 08/26/17 06:05 ALT 14 U/L (7-52) 08/26/17 06:05 Alkaline Phosphatase 70 U/L (34-104) 08/26/17 06:05 Troponin I 0.10 ng/mL (0.01-0.05) H* D 08/20/17 17:00 B-Natriuretic Peptide 839.0 pg/mL (5.0-100.0) H 08/19/17 04:58 Total Protein 6.3 gm/dL (6.0-8.3) 08/26/17 06:05 Albumin 2.7 gm/dL (3.7-5.3) L 08/26/17 06:05 Globulin 3.6 gm/dL 08/26/17 06:05 Albumin/Globulin Ratio 0.8 (1.0-1.8) L 08/26/17 06:05 Triglycerides 132 mg/dL (<150) 08/04/17 06:30 Cholesterol 55 mg/dL (<200) 08/04/17 06:30 LDL Cholesterol Direct 16 mg/dL (75-193) L 08/04/17 06:30 HDL Cholesterol 13 mg/dL (23-92) L 08/04/17 06:30 Amylase 12 U/L (29-103) L 08/02/17 13:43 Lipase 4 U/L (11-82) L 08/02/17 13:43 TSH 3.74 uIU/ml (0.34-5.60) 08/04/17 06:30 Stool Occult Blood POSITIVE (NEGATIVE) H 08/03/17 17:50 Random Vancomycin 35.2 ug/mL (5.0-40.0) 08/28/17 06:30 Hepatitis A IgM Ab Negative (Negative) 08/08/17 08:15 Hep Bs Antigen Negative (Negative) 08/08/17 08:15 Hep B Core IgM Ab Negative (Negative) 08/08/17 08:15 Hepatitis C Antibody <0.1 s/co ratio (0.0-0.9) 08/08/17 08:15 Blood Type A POSITIVE 08/26/17 23:45 Rho(D) Type Cancelled 08/26/17 23:46 Antibody Screen POSITIVE 08/26/17 23:45 Antibody Identification Anti-K 08/24/17 08:30 N[place], IgG Interpret NEGATIVE 08/15/17 07:50 Crossmatch See Detail 08/26/17 23:46 Crossmatch (AHG) Cancelled 08/26/17 23:46 Donor Unit # Cancelled 08/26/17 23:46 BBK History Checked Cancelled 08/26/17 23:46 - Physical Exam Vitals and I&O: Vital Signs Temp 98 F 08/28/17 12:00 Pulse 72 08/28/17 13:00 Resp 16 08/28/17 13:00 BP 97/34 08/28/17 13:00 Pulse Ox 100 08/28/17 13:00 Intake & Output 08/27/17 08/28/17 08/28/17 18:59 06:59 18:59 Intake Total 205.280 612.481 Output Total 2500 0 Balance 205.280 -1887.519 0 Weight (lbs) 107.955 kg 107.955 kg Intake: Intake, IV Amount 205.280 612.481 Norepinephrine 8 mg In 66.113 414.314 Sodium Chloride 0.9% 250 ml @ 18 MCG/MIN 34.83 mls /hr IV TITR PRN Rx#: [id number] Pantoprazole 80 mg In 89.167 98.167 Sodium Chloride 0.9% 100 ml @ 10 mls/hr IV Q10H [facility] Rx#:[id number] Piperacillin Sodium/ 50 100 Tazobact 2.25 gm In Sodium Chloride 0.9% 50 ml @ 100 mls/hr IV Q8HR [facility] Rx#:[id number] Output: Urine 0 Stool 0 Hemodialysis 2500 Other: # Voids 0 # Bowel Movements 2 0 Stool Characteristics Liquid Liquid Liquid Green Green Brown Green Active Medications: Current Medications Acetaminophen (Tylenol) 650 mg GT DAILY [facility] Stop: 10/20/17 08:59 Last Admin: 08/28/17 09:03 Dose: 650 mg Albuterol/Ipratropium (Duoneb Neb) 3 ml HHN Q4HRT [facility] Stop: 10/19/17 10:59 Last Admin: 08/28/17 07:24 Dose: 3 ml Amiodarone HCl (Cordarone) 200 mg GT Q12H [facility] Stop: 10/20/17 10:59 Last Admin: 08/28/17 11:00 Dose: Not Given Ascorbic Acid (Vitamin C) 500 mg PO DAILY [facility] Stop: 10/20/17 08:59 Last Admin: 08/28/17 09:02 Dose: 500 mg Aspirin (Aspirin Chewable) 81 mg PO DAILY [facility] Stop: 10/20/17 08:59 Last Admin: 08/28/17 09:02 Dose: 81 mg Atorvastatin Calcium (Lipitor) 40 mg GT DAILY [facility] PRN Reason: Protocol Stop: 10/20/17 08:59 Last Admin: 08/28/17 09:02 Dose: 40 mg Bisacodyl (Dulcolax 10 Mg Supp) 10 mg RC Q72HR PRN PRN Reason: if MOM ineffective Stop: 10/19/17 11:29 Chlorhexidine Gluconate (Peridex) 15 ml MM 0800,1999 [facility] Stop: 10/19/17 19:59 Last Admin: 08/28/17 08:17 Dose: 15 ml Cholecalciferol (Vitamin D3) 1,000 iu PO DAILY [facility] Stop: 10/20/17 08:59 Last Admin: 08/28/17 09:02 Dose: 1,000 iu Diltiazem HCl (Cardizem) 20 mg IV Q4HR PRN PRN Reason: HR ABOVE 120 Stop: 09/13/17 11:59 Docusate Sodium (Colace) 100 mg PO DAILY [facility] Stop: 10/20/17 08:59 Last Admin: 08/28/17 09:03 Dose: Not Given Dopamine HCl/Dextrose (Dopamine) 400 mg in 250 mls @ 0 mls/hr IV TITR PRN; Protocol; 0 MCG/KG/MIN PRN Reason: BP MAINTENANCE (PER PROTOCOL) Stop: 10/19/17 11:28 Norepinephrine Bitartrate 8 mg (/ Sodium Chloride) 258 mls @ 34.83 mls/hr IV TITR PRN; Protocol; 18 MCG/MIN PRN Reason: BP MAINTENANCE (PER PROTOCOL) Stop: 10/19/17 11:09 Last Titration: 08/28/17 06:05 Dose: 7 mcg/min, 13.54 mls/hr Piperacillin Sod/Tazobactam (Sod 2.25 gm/ Sodium Chloride) 50 mls @ 100 mls/hr IV Q8HR [facility] Stop: 10/23/17 20:59 Last Infusion: 08/28/17 06:05 Dose: Infused Phenylephrine HCl 10 mg/ (Sodium Chloride) 250 mls @ 0 mls/hr IV TITR [facility]; Per Protocol PRN Reason: Protocol Stop: 10/24/17 10:29 Dextrose (D5w) 1,000 mls @ 50 mls/hr IV .Q20H [facility] Stop: 10/25/17 08:14 Last Admin: 08/28/17 02:00 Dose: 50 mls/hr Pantoprazole Sodium 80 mg/ (Sodium Chloride) 100 mls @ 10 mls/hr IV Q10H [facility] Stop: 10/25/17 10:59 Last Admin: 08/28/17 03:00 Dose: 10 mls/hr Insulin Aspart (Novolog Insulin Sliding Scale) 0 units SUBQ Q6HR [facility] PRN Reason: Protocol Stop: 10/19/17 11:59 Last Admin: 08/28/17 12:00 Dose: 2 units Insulin Detemir (Levemir Insulin) 16 units SUBQ HS [facility] PRN Reason: Protocol Stop: 10/19/17 20:59 Last Admin: 08/27/17 21:43 Dose: Not Given Lactobacillus Rhamnosus (Culturelle 15b) 1 each PO DAILY [facility] Stop: 10/20/17 08:59 Last Admin: 08/28/17 09:02 Dose: 1 each Lorazepam (Ativan) 2 mg IVP Q4HR PRN; Protocol PRN Reason: Agitation Stop: 10/15/17 11:49 Last Admin: 08/28/17 10:31 Dose: 2 mg Magnesium Hydroxide (Milk Of Magnesia) 30 ml PO Q72HR PRN PRN Reason: Constipation Stop: 10/19/17 11:44 Mirtazapine (Remeron) 15 mg GT HS [facility] PRN Reason: Protocol Stop: 10/19/17 20:59 Last Admin: 08/27/17 21:15 Dose: 15 mg Miscellaneous (Probiotic Screen) 1 ea MC PRN PRN PRN Reason: PROTOCOL Stop: 10/22/17 10:29 Miscellaneous (Vancomycin Iv Per Pharmacy) 1 ea MC PRN [facility] Stop: 10/23/17 16:59 Multivitamins/Vitamin C (Theragran) 1 tab PO DAILY [facility] Stop: 10/20/17 08:59 Last Admin: 08/28/17 09:02 Dose: 1 tab Ondansetron HCl (Zofran) 4 mg IV Q6H PRN PRN Reason: Nausea / Vomiting Stop: 10/19/17 11:40 Simethicone (Mylicon) 80 mg GT Q6HR PRN PRN Reason: Gas Stop: 10/19/17 11:59 Sodium Phosphate (Fleet Enema) 135 ml RC PRN PRN PRN Reason: If MOM/Dulcolax ineffective Stop: 10/19/17 11:29 Zinc Sulfate (Zinc Sulfate) 220 mg PO DAILY [facility] Stop: 10/20/17 08:59 Last Admin: 08/28/17 09:02 Dose: 220 mg General: Alert, No acute distress (scattered rhonchi) HEENT: Atraumatic, EOMI Neck: Supple Cardiovascular: Regular rate Lungs: Other (coarse rhonchi) Abdomen: Bowel sounds, Soft, Other (INTACT GT), no Distended, no Rebound, no Guarding Extremities: Edema (upper wxtrmities), Other (upper ext) Neurological: Sensation intact Skin: no Rash Psych/Mental Status: Mood NL - Procedures Procedures: Procedures Procedure Code Date BLOOD TRANSFUSION SERVICE 03888 08/02/17 EXCISION OF STOMACH, ENDO, DIAGN [id number] 07/10/17 INSPECTION OF LOWER INTESTINAL TRACT, ENDO [id number] 07/10/17 PERFORMANCE OF URINARY FILTRATION, <6 HRS/DAY [id number] 07/10/17 RESPIRATORY VENTILATION, GREATER THAN 96 CONSECUTIVE HOURS [id number] 08/02/17 TRANSFUSE NONAUT RED BLOOD CELLS IN PERIPH VEIN, PERC 19336L2 08/02/17 Assessment/Plan - Assessment Assessment: 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/L UE Edema, Cellulitis Shock Sepsis RF on Vent Acute on Chronic Decomp CHF G (-) Septicemia A. fib to V. tach Severe acute anemia 2/2 GI bleed? - Plan Plan: Lab - Result Diagrams 08/04/17 06:30 08/04/17 06:30 Current Medications Acetaminophen (Tylenol 650mg/20.3ml Suspension) 650 mg GT DAILY [facility] Stop: 10/03/17 08:59 Last Admin: 08/04/17 09:18 Dose: 650 mg Albuterol/Ipratropium (Duoneb Neb) 3 ml HHN Q4HRT [facility] Stop: 10/02/17 10:59 Last Admin: 08/04/17 11:25 Dose: 3 ml Ascorbic Acid (Vitamin C) 500 mg PO DAILY [facility] Stop: 10/03/17 08:59 Last Admin: 08/04/17 09:18 Dose: 500 mg Aspirin (Aspirin Chewable) 81 mg GT DAILY [facility] Stop: 10/03/17 08:59 Last Admin: 08/04/17 09:18 Dose: 81 mg Atorvastatin Calcium (Lipitor) 40 mg GT HS [facility] PRN Reason: Protocol Stop: 10/02/17 20:59 Last Admin: 08/03/17 20:19 Dose: 40 mg Bisacodyl (Dulcolax 10 Mg Supp) 10 mg RC Q72HR PRN PRN Reason: IF MOM INEFFECTIVE Stop: 10/02/17 14:13 Bisacodyl (Dulcolax 10 Mg Supp) 10 mg RC PRN PRN PRN Reason: IF MOM INEFFECTIVE Stop: 10/02/17 14:13 Chlorhexidine Gluconate (Peridex) 15 ml MM 0800,1999 [facility] Stop: 10/02/17 07:59 Last Admin: 08/04/17 08:00 Dose: 15 ml Cholecalciferol (Vitamin D3) 1,000 iu GT DAILY [facility] Stop: 10/03/17 08:59 Last Admin: 08/04/17 09:18 Dose: 1,000 iu Diltiazem HCl (Cardizem) 5 mg IVP Q4H PRN PRN Reason: INCREASE HEART RATE Stop: 10/01/17 21:59 Last Admin: 08/03/17 01:38 Dose: 5 mg Docusate Sodium (Colace) 100 mg PO DAILY [facility] Stop: 10/03/17 08:59 Last Admin: 08/04/17 09:18 Dose: 100 mg Heparin Sodium (Porcine) (Heparin) 5,000 units HD UD [facility] Stop: 08/05/17 08:59 Last Admin: 08/04/17 09:19 Dose: Not Given Fluconazole (Diflucan) 200 mg in 100 mls @ 100 mls/hr IV Q24HR [facility] Stop: 10/02/17 14:59 Last Infusion: 08/03/17 15:40 Dose: Infused Meropenem 500 mg/ Sodium (Chloride) 100 mls @ 100 mls/hr IV Q24H [facility] Stop: 10/02/17 12:59 Last Admin: 08/04/17 13:17 Dose: 100 mls/hr Dopamine HCl/Dextrose (Dopamine) 400 mg in 250 mls @ 0 mls/hr IV TITR PRN; Protocol; Per Protocol PRN Reason: BP MAINTENANCE (PER PROTOCOL) Stop: 10/02/17 07:47 Norepinephrine Bitartrate 4 mg (/ Dextrose) 254 mls @ 0 mls/hr IV TITR PRN; Protocol; Per Protocol PRN Reason: BP MAINTENANCE (PER PROTOCOL) Stop: 10/02/17 08:31 Last Admin: 08/03/17 23:47 Dose: 4 mcg/min, 15.24 mls/hr Colistimethate Sodium 80 mg/ (Sodium Chloride) 100 mls @ 100 mls/hr IV Q36H [facility] Stop: 10/02/17 20:59 Last Infusion: 08/03/17 21:20 Dose: Infused Insulin Aspart (Novolog Insulin Sliding Scale) 0 units SUBQ Q6HR [facility] PRN Reason: Protocol Stop: 10/02/17 00:00 Last Admin: 08/04/17 11:30 Dose: 6 units Lorazepam (Ativan) 1 mg IVP Q2HR PRN; Protocol PRN Reason: Restlessness Stop: 10/01/17 21:18 Last Admin: 08/04/17 01:05 Dose: 1 mg Magnesium Hydroxide (Milk Of Magnesia) 30 ml GT Q72H PRN PRN Reason: NO BM FOR THREE DAYS Stop: 10/02/17 14:13 Mirtazapine (Remeron) 15 mg GT HS [facility] PRN Reason: Protocol Stop: 10/02/17 20:59 Last Admin: 08/03/17 20:19 Dose: 15 mg Miscellaneous (Vancomycin Iv Per Pharmacy) 1 ea PRN PRN PRN Reason: PROTOCOL Stop: 10/01/17 20:42 Miscellaneous (Zosyn Iv Per Pharmacy) 1 ea PRN PRN PRN Reason: PROTOCOL Stop: 10/01/17 20:42 Multivitamins/Vitamin C (Theragran) 1 tab PO DAILY [facility] Stop: 10/03/17 08:59 Last Admin: 08/04/17 09:18 Dose: 1 tab Ondansetron HCl (Zofran Odt) 4 mg PO Q6HR PRN PRN Reason: Nausea / Vomiting Stop: 10/02/17 14:13 Pantoprazole Sodium (Protonix) 40 mg IVP DAILY [facility] Stop: 10/02/17 08:59 Last Admin: 08/04/17 09:18 Dose: 40 mg Simethicone (Mylicon) 80 mg GT Q6H PRN PRN Reason: GAS PAIN Stop: 10/02/17 14:13 Sodium Phosphate (Fleet Enema) 118 ml RC PRN PRN PRN Reason: IF MOM/DULCOLAX INEFFECTIVE Stop: 10/02/17 14:13 Temazepam (Restoril) 15 mg GT HS PRN; Protocol PRN Reason: Insomnia Stop: 10/02/17 14:13 Last Admin: 08/03/17 20:19 Dose: 15 mg Zinc Sulfate (Zinc Sulfate) 220 mg GT DAILY [facility] Stop: 10/03/17 08:59 Last Admin: 08/04/17 09:18 Dose: 220 Lab - Result Diagrams 08/28/17 06:30 08/28/17 04:20 pt. dialyzed yesterday & tolerated it well CXR still showed persistent b/l effusions, CHF, left > right replace K f/u electrolytes. cbc Reccurence of shock, on levo 6 mcg, Amiodarone po BS low, monitor closely, hold Levemir, continue S/S wbc down to 14 reschedule for HD in am due to persistent CHF still lo Hgb/Hct due to severe GI bleed pt. had transfusion 2 U PRBC w/ dialysis if left AVF clotted request placement of sandor cath bleed scan neg Nutritional Asmnt/Malnutr-PDOC - Dietary Evaluation Malnutrition Findings (Please click <Entered> for more info): Nutritional Asmnt/Malnutrition Start: 08/05/17 15: 53 Text: Status: Complete Freq: Document 08/05/17 15:53 LCHENG (Rec: 08/05/17 16:19 LCHENG [email or web address]) Nutritional Asmnt/Malnutrition Patient General Information Nutritional Screening High Risk Diagnosis sepsis, respiratory failure, ESRD Pertinent Medical Hx/Surgical Hx ESRD on HD, respiratory failure with tracheostomy, dysphagia, a fib, anemia, HTN, GERD Subjective Information Pt on vent, not able to interview. Pt was on TF Novosource Renal 30ml/hr continuous, NPO today for surgery. Pt has dialysis ordred per nurse note. Current Diet Order/ Nutrition Support NPO on 08/05 Pertinent Medications vit C, vit D3, colace, novolog , remeron, theragran, protonix , zinc Pertinent Labs 08/05 Na 134, K 3.6, Cl 102, BUN 77, Cr 4.2, Glucose 216, POC 224-233 08/02 A1c 7.7 Nutritional Hx/Data Height 1.6 m Height (Calculated Centimeters) 160.0 Current Weight (lbs) 87.543 kg Weight (Calculated Kilograms) 87.5 Weight (Calculated Grams) 13832.3 [place] Body Weight 115 Body Mass Index (BMI) 34.2 Weight Status Obese GI Symptoms GI Symptoms None Last BM 08/04 Difficult in: None Skin Integrity/Comment: reddened to left/right inner thigh, right lateral index finger, right/left arm; skin tear to left abdominal fold; pressure area to coccy/sacral Estimated Nutritional Goals BEE in Kcals: Adj wt of IBW Calories/Kcals/Kg 30-35 adj wt 61kg Kcals Calculated 9540-2047 Protein: Adj wt of IBW Protein g/k.2-1.4 Protein Calculated 73-85 Fluid: ml 1830-2135ml (1ml/kcal) Nutritional Problem 1. Problem Problem altered nutrition related lab values Etiology hx of ESRD, endocrine dysfunction Signs/Symptoms: BUN 77, Cr 4.2, Glucose 216, POC 224-233, A1c 7.7 Malnutrition Alert Protein-Calorie Malnutrition N/A Is there a minimum of two criteria No selected? Query Text:Check all the applicable criteria. A minimum of two criteria are recommended for diagnosis of either severe or non-severe malnutrition. Intervention/Recommendation Comments 1. Resume TF Novosource Renal 30ml/hr continuous as ordered. increase to goal rate of 40ml /hr continuous as tolerated. This will provide 1920kcal, 87g protein and 688ml free water, meeting 100% of nutritional needs 2. Monitor TF rate, tolerance, wt weekly, skin integrity and labs 3. F/U as high risk in 2-3 days, 08/07-08/08 Expected Outcomes/Goals Expected Outcomes/Goals 1. Pt to meet at least 75% of nutritional needs via nutrition support with tolerance 2. Wt stability, skin to remain intact, labs to approach WNL.
--- NOTE | 2017-08-28 15:51 | Infectious Disease Prog Note ---
Infectious Disease Subjective - Review of Systems Service Date: 08/28/17 Subjective: no fever. on levophed. Infectious Disease Objective - Results Result Diagrams: 08/28/17 06:30 08/28/17 04:20 Recent Labs: Laboratory Last Values WBC 14.0 Th/cmm (4.8-10.8) H 08/28/17 06:30 Corrected WBC (auto) 13.2 Th/cmm (4.8-10.8) H 08/28/17 06:30 RBC 3.00 Mil/cmm (3.80-5.20) L 08/28/17 06:30 Hgb 9.9 gm/dL (12-16) L 08/28/17 06:30 Hct 27.9 % (41.0-60) L 08/28/17 06:30 MCV 93.2 fl (81-100) 08/28/17 06:30 MCH 33.1 pg (27.0-31.0) H 08/28/17 06:30 MCHC Differential 35.6 pg (28.0-36.0) 08/28/17 06:30 RDW 14.8 % (11.5-20.0) 08/28/17 06:30 Plt Count 143 Th/cmm (150-400) L 08/28/17 06:30 MPV 9.6 fl 08/28/17 06:30 Neutrophils % OBSTETRICS SCRUB NURSE 08/28/17 06:30 Band Neutrophils % 2 % (0-10) 08/27/17 14:30 Lymphocytes % OBSTETRICS SCRUB NURSE 08/28/17 06:30 Monocytes % OBSTETRICS SCRUB NURSE 08/28/17 06:30 Eosinophils % OBSTETRICS SCRUB NURSE 08/28/17 06:30 Basophils % OBSTETRICS SCRUB NURSE 08/28/17 06:30 Neutrophils (Manual) 87 % (40-80) H 08/28/17 06:30 Lymphocytes 4 % (20-50) L 08/28/17 06:30 Monocytes 8 % (2-10) 08/28/17 06:30 Eosinophils 3 % (0-5) 08/27/17 14:30 Basophils 1 % (0-3) 08/28/17 06:30 Nucleated RBCs 6.0 % (0-0) H 08/28/17 06:30 Hypochromia 1+ 08/02/17 15:37 Platelet Estimate ADEQUATE (NORMAL) 08/28/17 06:30 Platelet Morphology NORMAL (NORMAL) 08/20/17 04:45 Anisocytosis 1+ 08/28/17 06:30 Crenated Cell 2+ 08/02/17 15:37 RBC Morph Micro Appear ABNORMAL (NORMAL) 08/02/17 15:37 PT 11.6 SECONDS (9.5-11.5) H 08/25/17 21:06 INR 1.11 (0.5-1.4) 08/25/17 21:06 PTT (Actin FS) 32.3 SECONDS (26.0-38.0) 08/25/17 21:06 Specimen Source Arterial 08/03/17 08:58 Sample Site Right Radial 08/03/17 08:58 pH 7.42 (7.35-7.45) 08/03/17 08:58 pCO2 37.0 mmHg (35.0-45.0) 08/03/17 08:58 pO2 204.0 mmHg (80.0-100.0) H 08/03/17 08:58 HCO3 24.8 mEq/L (20.0-26.0) 08/03/17 08:58 Base Excess -0.2 mEq/L (-3.0-3.0) 08/03/17 08:58 O2 Saturation 100.0 % (92.0-100.0) 08/03/17 08:58 Rhett Test Positive 08/03/17 08:58 Vent Rate 12 08/03/17 08:58 Inspired O2 60 08/03/17 08:58 Tidal Volume 450 08/03/17 08:58 PEEP 5 08/03/17 08:58 Pressure (ins/psv/peep) NA 08/03/17 08:58 Critical Value LZHANG 08/03/17 08:58 Sodium 141 mEq/L (136-145) 08/28/17 04:20 Potassium 4.2 mEq/L (3.5-5.1) 08/28/17 04:20 Chloride 103 mEq/L (98-107) 08/28/17 04:20 Carbon Dioxide 21.0 mEq/L (21.0-31.0) 08/28/17 04:20 Anion Gap 21.2 (7.0-16.0) H 08/28/17 04:20 BUN 37 mg/dL (7-25) H 08/28/17 04:20 Creatinine 2.2 mg/dL (0.6-1.2) H 08/28/17 04:20 Est GFR ( Amer) TNP 08/28/17 04:20 Est GFR (Non-Af Amer) TNP 08/28/17 04:20 BUN/Creatinine Ratio 16.8 08/28/17 04:20 Glucose 165 mg/dL (70-105) H 08/28/17 04:20 POC Glucose 154 MG/DL (70 - 105) H 08/28/17 11:55 Hemoglobin A1c % 7.7 % (4.0-6.0) H 08/02/17 15:37 Whole Bld Lactic Acid 1.97 mmol/L (0.60-1.99) 08/02/17 13:49 Calcium 8.3 mg/dL (8.6-10.3) L 08/28/17 04:20 Magnesium 1.8 mg/dL (1.9-2.7) L 08/28/17 04:20 Iron 10 ug/dL (27-139) L 08/02/17 13:56 TIBC 135 ug/dL (250-450) L 08/02/17 13:56 Iron Saturation 7 % (15-55) L 08/02/17 13:56 Unsaturated IBC 125 ug/dL (118-369) 08/02/17 13:56 Ferritin 588 ng/mL (15-150) H 08/02/17 13:56 Total Bilirubin 0.4 mg/dL (0.3-1.0) 08/26/17 06:05 Direct Bilirubin 0.09 mg/dL (0.0-0.2) 08/02/17 13:57 AST 34 U/L (13-39) 08/26/17 06:05 ALT 14 U/L (7-52) 08/26/17 06:05 Alkaline Phosphatase 70 U/L (34-104) 08/26/17 06:05 Troponin I 0.10 ng/mL (0.01-0.05) H* D 08/20/17 17:00 B-Natriuretic Peptide 839.0 pg/mL (5.0-100.0) H 08/19/17 04:58 Total Protein 6.3 gm/dL (6.0-8.3) 08/26/17 06:05 Albumin 2.7 gm/dL (3.7-5.3) L 08/26/17 06:05 Globulin 3.6 gm/dL 08/26/17 06:05 Albumin/Globulin Ratio 0.8 (1.0-1.8) L 08/26/17 06:05 Triglycerides 132 mg/dL (<150) 08/04/17 06:30 Cholesterol 55 mg/dL (<200) 08/04/17 06:30 LDL Cholesterol Direct 16 mg/dL (75-193) L 08/04/17 06:30 HDL Cholesterol 13 mg/dL (23-92) L 08/04/17 06:30 Amylase 12 U/L (29-103) L 08/02/17 13:43 Lipase 4 U/L (11-82) L 08/02/17 13:43 TSH 3.74 uIU/ml (0.34-5.60) 08/04/17 06:30 Stool Occult Blood POSITIVE (NEGATIVE) H 08/03/17 17:50 Random Vancomycin 35.2 ug/mL (5.0-40.0) 08/28/17 06:30 Hepatitis A IgM Ab Negative (Negative) 08/08/17 08:15 Hep Bs Antigen Negative (Negative) 08/08/17 08:15 Hep B Core IgM Ab Negative (Negative) 08/08/17 08:15 Hepatitis C Antibody <0.1 s/co ratio (0.0-0.9) 08/08/17 08:15 Blood Type A POSITIVE 08/26/17 23:45 Rho(D) Type Cancelled 08/26/17 23:46 Antibody Screen POSITIVE 08/26/17 23:45 Antibody Identification Anti-K 08/24/17 08:30 N[place], IgG Interpret NEGATIVE 08/15/17 07:50 Crossmatch See Detail 08/26/17 23:46 Crossmatch (AHG) Cancelled 08/26/17 23:46 Donor Unit # Cancelled 08/26/17 23:46 BBK History Checked Cancelled 08/26/17 23:46 - Physical Exam Vitals and I&O: Vital Signs Temp 98 F 08/28/17 12:00 Pulse 75 08/28/17 15:29 Resp 15 08/28/17 15:00 BP 125/39 08/28/17 15:00 Pulse Ox 100 08/28/17 15:29 Intake & Output 08/27/17 08/28/17 08/28/17 18:59 06:59 18:59 Intake Total 205.280 612.481 251.686 Output Total 2500 0 Balance 205.280 -1887.519 251.686 Weight (lbs) 107.955 kg 107.955 kg Intake: Intake, IV Amount 205.280 612.481 251.686 Norepinephrine 8 mg In 66.113 414.314 101.686 Sodium Chloride 0.9% 250 ml @ 18 MCG/MIN 34.83 mls /hr IV TITR PRN Rx#: [id number] Pantoprazole 80 mg In 89.167 98.167 100 Sodium Chloride 0.9% 100 ml @ 10 mls/hr IV Q10H [facility] Rx#:[id number] Piperacillin Sodium/ 50 100 50 Tazobact 2.25 gm In Sodium Chloride 0.9% 50 ml @ 100 mls/hr IV Q8HR [facility] Rx#:[id number] Output: Urine 0 Stool 0 Hemodialysis 2500 Other: # Voids 0 # Bowel Movements 2 0 Stool Characteristics Liquid Liquid Liquid Green Green Brown Green Active Medications: Current Medications Acetaminophen (Tylenol) 650 mg GT DAILY [facility] Stop: 10/20/17 08:59 Last Admin: 08/28/17 09:03 Dose: 650 mg Albuterol/Ipratropium (Duoneb Neb) 3 ml HHN Q4HRT [facility] Stop: 10/19/17 10:59 Last Admin: 08/28/17 15:28 Dose: 3 ml Amiodarone HCl (Cordarone) 200 mg GT Q12H [facility] Stop: 10/20/17 10:59 Last Admin: 08/28/17 11:00 Dose: Not Given Ascorbic Acid (Vitamin C) 500 mg PO DAILY [facility] Stop: 10/20/17 08:59 Last Admin: 08/28/17 09:02 Dose: 500 mg Aspirin (Aspirin Chewable) 81 mg PO DAILY [facility] Stop: 10/20/17 08:59 Last Admin: 08/28/17 09:02 Dose: 81 mg Atorvastatin Calcium (Lipitor) 40 mg GT DAILY [facility] PRN Reason: Protocol Stop: 10/20/17 08:59 Last Admin: 08/28/17 09:02 Dose: 40 mg Bisacodyl (Dulcolax 10 Mg Supp) 10 mg RC Q72HR PRN PRN Reason: if MOM ineffective Stop: 10/19/17 11:29 Chlorhexidine Gluconate (Peridex) 15 ml MM 0800,1999 [facility] Stop: 10/19/17 19:59 Last Admin: 08/28/17 08:17 Dose: 15 ml Cholecalciferol (Vitamin D3) 1,000 iu PO DAILY [facility] Stop: 10/20/17 08:59 Last Admin: 08/28/17 09:02 Dose: 1,000 iu Diltiazem HCl (Cardizem) 20 mg IV Q4HR PRN PRN Reason: HR ABOVE 120 Stop: 09/13/17 11:59 Docusate Sodium (Colace) 100 mg PO DAILY [facility] Stop: 10/20/17 08:59 Last Admin: 08/28/17 09:03 Dose: Not Given Dopamine HCl/Dextrose (Dopamine) 400 mg in 250 mls @ 0 mls/hr IV TITR PRN; Protocol; 0 MCG/KG/MIN PRN Reason: BP MAINTENANCE (PER PROTOCOL) Stop: 10/19/17 11:28 Norepinephrine Bitartrate 8 mg (/ Sodium Chloride) 258 mls @ 34.83 mls/hr IV TITR PRN; Protocol; 18 MCG/MIN PRN Reason: BP MAINTENANCE (PER PROTOCOL) Stop: 10/19/17 11:09 Last Admin: 08/28/17 15:30 Dose: 5 mcg/min, 9.67 mls/hr Piperacillin Sod/Tazobactam (Sod 2.25 gm/ Sodium Chloride) 50 mls @ 100 mls/hr IV Q8HR [facility] Stop: 10/23/17 20:59 Last Infusion: 08/28/17 14:55 Dose: Infused Phenylephrine HCl 10 mg/ (Sodium Chloride) 250 mls @ 0 mls/hr IV TITR [facility]; Per Protocol PRN Reason: Protocol Stop: 10/24/17 10:29 Dextrose (D5w) 1,000 mls @ 50 mls/hr IV .Q20H [facility] Stop: 10/25/17 08:14 Last Admin: 08/28/17 02:00 Dose: 50 mls/hr Pantoprazole Sodium 80 mg/ (Sodium Chloride) 100 mls @ 10 mls/hr IV Q10H [facility] Stop: 10/25/17 10:59 Last Admin: 08/28/17 14:25 Dose: 10 mls/hr Insulin Aspart (Novolog Insulin Sliding Scale) 0 units SUBQ Q6HR [facility] PRN Reason: Protocol Stop: 10/19/17 11:59 Last Admin: 08/28/17 12:00 Dose: 2 units Insulin Detemir (Levemir Insulin) 16 units SUBQ HS [facility] PRN Reason: Protocol Stop: 10/19/17 20:59 Last Admin: 08/27/17 21:43 Dose: Not Given Lactobacillus Rhamnosus (Culturelle 15b) 1 each PO DAILY [facility] Stop: 10/20/17 08:59 Last Admin: 08/28/17 09:02 Dose: 1 each Lorazepam (Ativan) 2 mg IVP Q4HR PRN; Protocol PRN Reason: Agitation Stop: 10/15/17 11:49 Last Admin: 08/28/17 10:31 Dose: 2 mg Magnesium Hydroxide (Milk Of Magnesia) 30 ml PO Q72HR PRN PRN Reason: Constipation Stop: 10/19/17 11:44 Mirtazapine (Remeron) 15 mg GT HS [facility] PRN Reason: Protocol Stop: 10/19/17 20:59 Last Admin: 08/27/17 21:15 Dose: 15 mg Miscellaneous (Probiotic Screen) 1 ea MC PRN PRN PRN Reason: PROTOCOL Stop: 10/22/17 10:29 Miscellaneous (Vancomycin Iv Per Pharmacy) 1 ea MC PRN [facility] Stop: 10/23/17 16:59 Multivitamins/Vitamin C (Theragran) 1 tab PO DAILY [facility] Stop: 10/20/17 08:59 Last Admin: 08/28/17 09:02 Dose: 1 tab Ondansetron HCl (Zofran) 4 mg IV Q6H PRN PRN Reason: Nausea / Vomiting Stop: 10/19/17 11:40 Simethicone (Mylicon) 80 mg GT Q6HR PRN PRN Reason: Gas Stop: 10/19/17 11:59 Sodium Phosphate (Fleet Enema) 135 ml RC PRN PRN PRN Reason: If MOM/Dulcolax ineffective Stop: 10/19/17 11:29 Zinc Sulfate (Zinc Sulfate) 220 mg PO DAILY [facility] Stop: 10/20/17 08:59 Last Admin: 08/28/17 09:02 Dose: 220 mg General: no acute distress, well developed, well nourished HEENT: atraumatic, normocephalic, PERRLA, EOMI Neck: supple, no thyromegaly Cardiovascular: S1S2, regular Lungs: clear to auscultation bilaterally, clear to percussion Abdomen: soft, no tender, no distended Extremities: no cyanosis, no clubbing Neurological: awake, alert Skin: intact - Procedures Procedures: Procedures Procedure Code Date BLOOD TRANSFUSION SERVICE 18659 08/02/17 EXCISION OF STOMACH, ENDO, DIAGN [id number] 07/10/17 INSPECTION OF LOWER INTESTINAL TRACT, ENDO [id number] 07/10/17 PERFORMANCE OF URINARY FILTRATION, <6 HRS/DAY [id number] 07/10/17 RESPIRATORY VENTILATION, GREATER THAN 96 CONSECUTIVE HOURS [id number] 08/02/17 TRANSFUSE NONAUT RED BLOOD CELLS IN PERIPH VEIN, PERC [id number] 08/02/17 Infectious Disease Assmt/Plan - Assessment Assessment: 1. Septic shock. versus cardiogenic shock. 2. Gram-negative negative bacteremia treated 3. Pneumonia. 4. 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 5. Diabetes mellitus type 2. 6. Obesity. 7. Hypotension on levophed. 8. Gi bleed. - Plan Plan: Continue vancomycin IV and Zosyn. Patient has poor prognosis. Nutritional Asmnt/Malnutr-PDOC - Dietary Evaluation Malnutrition Findings (Please click <Entered> for more info): Nutritional Asmnt/Malnutrition Start: 08/05/17 15: 53 Text: Status: Complete Freq: Document 08/05/17 15:53 [facility] (Rec: 08/05/17 16:19 [facility] Nutritional Asmnt/Malnutrition Patient General Information Nutritional Screening High Risk Diagnosis sepsis, respiratory failure, ESRD Pertinent Medical Hx/Surgical Hx ESRD on HD, respiratory failure with tracheostomy, dysphagia, a fib, anemia, HTN, GERD Subjective Information Pt on vent, not able to interview. Pt was on TF Novosource Renal 30ml/hr continuous, NPO today for surgery. Pt has dialysis ordred per nurse note. Current Diet Order/ Nutrition Support NPO on 08/05 Pertinent Medications vit C, vit D3, colace, novolog , remeron, theragran, protonix , zinc Pertinent Labs 08/05 Na 134, K 3.6, Cl 102, BUN 77, Cr 4.2, Glucose 216, POC 224-233 08/02 A1c 7.7 Nutritional Hx/Data Height 1.6 m Height (Calculated Centimeters) 160.0 Current Weight (lbs) 87.543 kg Weight (Calculated Kilograms) 87.5 Weight (Calculated Grams) 40044.3 [place] Body Weight 115 Body Mass Index (BMI) 34.2 Weight Status Obese GI Symptoms GI Symptoms None Last BM 08/04 Difficult in: None Skin Integrity/Comment: reddened to left/right inner thigh, right lateral index finger, right/left arm; skin tear to left abdominal fold; pressure area to coccy/sacral Estimated Nutritional Goals BEE in Kcals: Adj wt of IBW Calories/Kcals/Kg 30-35 adj wt 61kg Kcals Calculated 5079-1450 Protein: Adj wt of IBW Protein g/k.2-1.4 Protein Calculated 73-85 Fluid: ml 1830-2135ml (1ml/kcal) Nutritional Problem 1. Problem Problem altered nutrition related lab values Etiology hx of ESRD, endocrine dysfunction Signs/Symptoms: BUN 77, Cr 4.2, Glucose 216, POC 224-233, A1c 7.7 Malnutrition Alert Protein-Calorie Malnutrition N/A Is there a minimum of two criteria No selected? Query Text:Check all the applicable criteria. A minimum of two criteria are recommended for diagnosis of either severe or non-severe malnutrition. Intervention/Recommendation Comments 1. Resume TF Novosource Renal 30ml/hr continuous as ordered. increase to goal rate of 40ml /hr continuous as tolerated. This will provide 1920kcal, 87g protein and 688ml free water, meeting 100% of nutritional needs 2. Monitor TF rate, tolerance, wt weekly, skin integrity and labs 3. F/U as high risk in 2-3 days, 08/07-08/08 Expected Outcomes/Goals Expected Outcomes/Goals 1. Pt to meet at least 75% of nutritional needs via nutrition support with tolerance 2. Wt stability, skin to remain intact, labs to approach WNL.
[2017-08-29] MEDS: Pantoprazole 80 MG in Sodium Chloride 0.9% 100 ML IV SCH (00:09)
[2017-08-29] MEDS: INSULIN ASPART SLIDING SCALE 100 UNITS/ML UNIT SUBQ SCH ×4 (00:20→18:31)
[2017-08-29] MEDS: Albuterol/Ipratropium Neb 3 ML AERS HHN SCH ×5 (03:21→23:19)
[2017-08-29 04:55] LABS: HEMATOCRIT 33.4 % (41.0-60); HEMOGLOBIN 11.1 gm/dL (12-16); MEAN CELL VOLUME 89.6 fl (81-100); MEAN CORPUSCULAR HEMOGLOBIN 29.6 pg (27.0-31.0); MEAN CORPUSCULAR HGB CONC 33.1 pg (28.0-36.0); MEAN PLATELET VOLUME 10.4 fl; PLATELET COUNT 160 Th/cmm (150-400); RED BLOOD COUNT 3.73 Mil/cmm (3.80-5.20); RED CELL DISTRIBUTION WIDTH 15.1 % (11.5-20.0)
[2017-08-29 05:00] LABS: MANUAL DIFF REQUIRED? YES; WHITE BLOOD COUNT 15.2 Th/cmm (4.8-10.8)
[2017-08-29 05:15] LABS: ANION GAP 18.6 (7.0-16.0); BUN - UREA NITROGEN 38 mg/dL (7-25); CALCIUM SERUM 8.7 mg/dL (8.6-10.3); CARBON DIOXIDE 21.4 mEq/L (21.0-31.0); CHLORIDE 101 mEq/L (98-107); CREATININE - SERUM 2.5 mg/dL (0.6-1.2); GLUCOSE 146 mg/dL (70-105); SODIUM SERUM 137 mEq/L (136-145)
[2017-08-29 05:58] LABS: BAND NEUTROPHILE 4 % (0-10); EOSINOPHIL 7 % (0-5); LYMPHOCYTE 14 % (20-50); MONOCYTE 7 % (2-10); NEUTROPHILS 68 % (40-80); TOTAL CELLS COUNTED 100
[2017-08-29] MEDS: Chlorhexidine Gluconate 0.12% 15mL Mouthwash MM SCH ×2 (08:53→20:56)
[2017-08-29] MEDS: Lactobacillus Rhamnosus GG 15 Billion CFU CAP.SPRINK PO SCH (08:53)
[2017-08-29] MEDS: Aspirin 81mg Chewable Tab PO SCH (08:54)
[2017-08-29] MEDS: Multivitamin Tab PO SCH (08:54)
--- NOTE | 2017-08-29 10:21 | GI Progress Note ---
Subjective - Review of Systems Service Date: 08/29/17 Subjective: NO events, no bleeding Objective - Results Result Diagrams: 08/29/17 04:20 08/29/17 04:20 Recent Labs: Laboratory Last Values WBC 15.2 Th/cmm (4.8-10.8) H 08/29/17 04:20 Corrected WBC (auto) 13.2 Th/cmm (4.8-10.8) H 08/28/17 06:30 RBC 3.73 Mil/cmm (3.80-5.20) L 08/29/17 04:20 Hgb 11.1 gm/dL (12-16) L 08/29/17 04:20 Hct 33.4 % (41.0-60) L D 08/29/17 04:20 MCV 89.6 fl (81-100) 08/29/17 04:20 MCH 29.6 pg (27.0-31.0) 08/29/17 04:20 MCHC Differential 33.1 pg (28.0-36.0) 08/29/17 04:20 RDW 15.1 % (11.5-20.0) 08/29/17 04:20 Plt Count 160 Th/cmm (150-400) 08/29/17 04:20 MPV 10.4 fl 08/29/17 04:20 Neutrophils % OPERATIONS ARCHITECT 08/28/17 06:30 Band Neutrophils % 4 % (0-10) 08/29/17 04:20 Lymphocytes % OPERATIONS ARCHITECT 08/28/17 06:30 Monocytes % OPERATIONS ARCHITECT 08/28/17 06:30 Eosinophils % OPERATIONS ARCHITECT 08/28/17 06:30 Basophils % OPERATIONS ARCHITECT 08/28/17 06:30 Neutrophils (Manual) 68 % (40-80) 08/29/17 04:20 Lymphocytes 14 % (20-50) L 08/29/17 04:20 Monocytes 7 % (2-10) 08/29/17 04:20 Eosinophils 7 % (0-5) H 08/29/17 04:20 Basophils 1 % (0-3) 08/28/17 06:30 Nucleated RBCs 1.0 % (0-0) H 08/29/17 04:20 Hypochromia 1+ 08/02/17 15:37 Platelet Estimate ADEQUATE (NORMAL) 08/28/17 06:30 Platelet Morphology NORMAL (NORMAL) 08/20/17 04:45 Anisocytosis 1+ 08/28/17 06:30 Crenated Cell 2+ 08/02/17 15:37 RBC Morph Micro Appear ABNORMAL (NORMAL) 08/02/17 15:37 PT 11.6 SECONDS (9.5-11.5) H 08/25/17 21:06 INR 1.11 (0.5-1.4) 08/25/17 21:06 PTT (Actin FS) 32.3 SECONDS (26.0-38.0) 08/25/17 21:06 Specimen Source Arterial 08/03/17 08:58 Sample Site Right Radial 08/03/17 08:58 pH 7.42 (7.35-7.45) 08/03/17 08:58 pCO2 37.0 mmHg (35.0-45.0) 08/03/17 08:58 pO2 204.0 mmHg (80.0-100.0) H 08/03/17 08:58 HCO3 24.8 mEq/L (20.0-26.0) 08/03/17 08:58 Base Excess -0.2 mEq/L (-3.0-3.0) 08/03/17 08:58 O2 Saturation 100.0 % (92.0-100.0) 08/03/17 08:58 Rhett Test Positive 08/03/17 08:58 Vent Rate 12 08/03/17 08:58 Inspired O2 60 08/03/17 08:58 Tidal Volume 450 08/03/17 08:58 PEEP 5 08/03/17 08:58 Pressure (ins/psv/peep) NA 08/03/17 08:58 Critical Value LZHANG 08/03/17 08:58 Sodium 137 mEq/L (136-145) 08/29/17 04:20 Potassium 4.0 mEq/L (3.5-5.1) 08/29/17 04:20 Chloride 101 mEq/L (98-107) 08/29/17 04:20 Carbon Dioxide 21.4 mEq/L (21.0-31.0) 08/29/17 04:20 Anion Gap 18.6 (7.0-16.0) H 08/29/17 04:20 BUN 38 mg/dL (7-25) H 08/29/17 04:20 Creatinine 2.5 mg/dL (0.6-1.2) H 08/29/17 04:20 Est GFR ( Amer) TNP 08/29/17 04:20 Est GFR (Non-Af Amer) TNP 08/29/17 04:20 BUN/Creatinine Ratio 15.2 08/29/17 04:20 Glucose 146 mg/dL (70-105) H 08/29/17 04:20 POC Glucose 179 MG/DL (70 - 105) H 08/28/17 17:53 Hemoglobin A1c % 7.7 % (4.0-6.0) H 08/02/17 15:37 Whole Bld Lactic Acid 1.97 mmol/L (0.60-1.99) 08/02/17 13:49 Calcium 8.7 mg/dL (8.6-10.3) 08/29/17 04:20 Magnesium 1.8 mg/dL (1.9-2.7) L 08/28/17 04:20 Iron 10 ug/dL (27-139) L 08/02/17 13:56 TIBC 135 ug/dL (250-450) L 08/02/17 13:56 Iron Saturation 7 % (15-55) L 08/02/17 13:56 Unsaturated IBC 125 ug/dL (118-369) 08/02/17 13:56 Ferritin 588 ng/mL (15-150) H 08/02/17 13:56 Total Bilirubin 0.4 mg/dL (0.3-1.0) 08/26/17 06:05 Direct Bilirubin 0.09 mg/dL (0.0-0.2) 08/02/17 13:57 AST 34 U/L (13-39) 08/26/17 06:05 ALT 14 U/L (7-52) 08/26/17 06:05 Alkaline Phosphatase 70 U/L (34-104) 08/26/17 06:05 Troponin I 0.10 ng/mL (0.01-0.05) H* D 08/20/17 17:00 B-Natriuretic Peptide 839.0 pg/mL (5.0-100.0) H 08/19/17 04:58 Total Protein 6.3 gm/dL (6.0-8.3) 08/26/17 06:05 Albumin 2.7 gm/dL (3.7-5.3) L 08/26/17 06:05 Globulin 3.6 gm/dL 08/26/17 06:05 Albumin/Globulin Ratio 0.8 (1.0-1.8) L 08/26/17 06:05 Triglycerides 132 mg/dL (<150) 08/04/17 06:30 Cholesterol 55 mg/dL (<200) 08/04/17 06:30 LDL Cholesterol Direct 16 mg/dL (75-193) L 08/04/17 06:30 HDL Cholesterol 13 mg/dL (23-92) L 08/04/17 06:30 Amylase 12 U/L (29-103) L 08/02/17 13:43 Lipase 4 U/L (11-82) L 08/02/17 13:43 TSH 3.74 uIU/ml (0.34-5.60) 08/04/17 06:30 Stool Occult Blood POSITIVE (NEGATIVE) H 08/03/17 17:50 Random Vancomycin 35.2 ug/mL (5.0-40.0) 08/28/17 06:30 Hepatitis A IgM Ab Negative (Negative) 08/08/17 08:15 Hep Bs Antigen Negative (Negative) 08/08/17 08:15 Hep B Core IgM Ab Negative (Negative) 08/08/17 08:15 Hepatitis C Antibody <0.1 s/co ratio (0.0-0.9) 08/08/17 08:15 Blood Type A POSITIVE 08/26/17 23:45 Rho(D) Type Cancelled 08/26/17 23:46 Antibody Screen POSITIVE 08/26/17 23:45 Antibody Identification Anti-K 08/24/17 08:30 NEV[place], IgG Interpret NEGATIVE 08/15/17 07:50 Crossmatch See Detail 08/26/17 23:46 Crossmatch (AHG) Cancelled 08/26/17 23:46 Donor Unit # Cancelled 08/26/17 23:46 BBK History Checked Cancelled 08/26/17 23:46 - Physical Exam Vitals and I&O: Vital Signs Temp 97.4 F 08/29/17 04:00 Pulse 72 08/29/17 09:45 Resp 16 08/29/17 06:00 BP 105/84 08/29/17 06:45 Pulse Ox 100 08/29/17 09:45 Intake & Output 08/28/17 08/29/17 08/29/17 18:59 06:59 18:59 Intake Total 499.422 9557.500 Output Total 0 Balance 144.520 4048.500 Weight (lbs) 107.955 kg Intake: Intake, IV Amount 804.014 1806.500 Dextrose 5% 1,000 ml @ 50 915 mls/hr IV .Q20H [facility] Rx#: [id number] Norepinephrine 8 mg In 114.261 Sodium Chloride 0.9% 250 ml @ 18 MCG/MIN 34.83 mls /hr IV TITR PRN Rx#: [id number] Pantoprazole 80 mg In 100 97.500 Sodium Chloride 0.9% 100 ml @ 10 mls/hr IV Q10H [facility] Rx#:[id number] Piperacillin Sodium/ 50 100 Tazobact 2.25 gm In Sodium Chloride 0.9% 50 ml @ 100 mls/hr IV Q8HR [facility] Rx#:[id number] Other 80 Output: Urine 0 Stool 0 Other: # Voids 0 # Bowel Movements 2 Stool Characteristics Liquid Liquid Brown Brown Green Active Medications: Current Medications Acetaminophen (Tylenol) 650 mg GT DAILY [facility] Stop: 10/20/17 08:59 Last Admin: 08/29/17 08:54 Dose: 650 mg Albuterol/Ipratropium (Duoneb Neb) 3 ml HHN Q4HRT [facility] Stop: 10/19/17 10:59 Last Admin: 08/29/17 07:47 Dose: 3 ml Amiodarone HCl (Cordarone) 200 mg GT Q12H [facility] Stop: 10/20/17 10:59 Last Admin: 08/29/17 00:08 Dose: 200 mg Ascorbic Acid (Vitamin C) 500 mg PO DAILY [facility] Stop: 10/20/17 08:59 Last Admin: 08/29/17 08:54 Dose: 500 mg Aspirin (Aspirin Chewable) 81 mg PO DAILY [facility] Stop: 10/20/17 08:59 Last Admin: 08/29/17 08:54 Dose: 81 mg Atorvastatin Calcium (Lipitor) 40 mg GT DAILY [facility] PRN Reason: Protocol Stop: 10/20/17 08:59 Last Admin: 08/29/17 08:54 Dose: 40 mg Bisacodyl (Dulcolax 10 Mg Supp) 10 mg RC Q72HR PRN PRN Reason: if MOM ineffective Stop: 10/19/17 11:29 Chlorhexidine Gluconate (Peridex) 15 ml MM 08,1999 [facility] Stop: 10/19/17 19:59 Last Admin: 08/29/17 08:53 Dose: 15 ml Cholecalciferol (Vitamin D3) 1,000 iu PO DAILY [facility] Stop: 10/20/17 08:59 Last Admin: 08/29/17 08:54 Dose: 1,000 iu Diltiazem HCl (Cardizem) 20 mg IV Q4HR PRN PRN Reason: HR ABOVE 120 Stop: 09/13/17 11:59 Docusate Sodium (Colace) 100 mg PO DAILY [facility] Stop: 10/20/17 08:59 Last Admin: 08/29/17 08:54 Dose: 100 mg Dopamine HCl/Dextrose (Dopamine) 400 mg in 250 mls @ 0 mls/hr IV TITR PRN; Protocol; 0 MCG/KG/MIN PRN Reason: BP MAINTENANCE (PER PROTOCOL) Stop: 10/19/17 11:28 Norepinephrine Bitartrate 8 mg (/ Sodium Chloride) 258 mls @ 34.83 mls/hr IV TITR PRN; Protocol; 18 MCG/MIN PRN Reason: BP MAINTENANCE (PER PROTOCOL) Stop: 10/19/17 11:09 Last Titration: 08/28/17 17:00 Dose: 3 mcg/min, 5.8 mls/hr Piperacillin Sod/Tazobactam (Sod 2.25 gm/ Sodium Chloride) 50 mls @ 100 mls/hr IV Q8HR [facility] Stop: 10/23/17 20:59 Last Infusion: 08/29/17 06:10 Dose: Infused Phenylephrine HCl 10 mg/ (Sodium Chloride) 250 mls @ 0 mls/hr IV TITR [facility]; Per Protocol PRN Reason: Protocol Stop: 10/24/17 10:29 Dextrose (D5w) 1,000 mls @ 50 mls/hr IV .Q20H [facility] Stop: 10/25/17 08:14 Last Admin: 08/28/17 20:18 Dose: 50 mls/hr Pantoprazole Sodium 80 mg/ (Sodium Chloride) 100 mls @ 10 mls/hr IV Q10H [facility] Stop: 10/25/17 10:59 Last Infusion: 08/29/17 00:10 Dose: 10 mls/hr Insulin Aspart (Novolog Insulin Sliding Scale) 0 units SUBQ Q6HR [facility] PRN Reason: Protocol Stop: 10/19/17 11:59 Last Admin: 08/29/17 05:47 Dose: Not Given Insulin Detemir (Levemir Insulin) 16 units SUBQ HS [facility] PRN Reason: Protocol Stop: 10/19/17 20:59 Last Admin: 08/29/17 00:00 Dose: Not Given Lactobacillus Rhamnosus (Culturelle 15b) 1 each PO DAILY [facility] Stop: 10/20/17 08:59 Last Admin: 08/29/17 08:53 Dose: 1 each Lorazepam (Ativan) 2 mg IVP Q4HR PRN; Protocol PRN Reason: Agitation Stop: 10/15/17 11:49 Last Admin: 08/29/17 06:34 Dose: 2 mg Magnesium Hydroxide (Milk Of Magnesia) 30 ml PO Q72HR PRN PRN Reason: Constipation Stop: 10/19/17 11:44 Mirtazapine (Remeron) 15 mg GT [facility] PRN Reason: Protocol Stop: 10/19/17 20:59 Last Admin: 08/28/17 20:42 Dose: 15 mg Miscellaneous (Probiotic Screen) 1 ea MC PRN PRN PRN Reason: PROTOCOL Stop: 10/22/17 10:29 Miscellaneous (Vancomycin Iv Per Pharmacy) 1 ea MC PRN [facility] Stop: 10/23/17 16:59 Multivitamins/Vitamin C (Theragran) 1 tab PO DAILY [facility] Stop: 10/20/17 08:59 Last Admin: 08/29/17 08:54 Dose: 1 tab Ondansetron HCl (Zofran) 4 mg IV Q6H PRN PRN Reason: Nausea / Vomiting Stop: 10/19/17 11:40 Simethicone (Mylicon) 80 mg GT Q6HR PRN PRN Reason: Gas Stop: 10/19/17 11:59 Sodium Phosphate (Fleet Enema) 135 ml RC PRN PRN PRN Reason: If MOM/Dulcolax ineffective Stop: 10/19/17 11:29 Zinc Sulfate (Zinc Sulfate) 220 mg PO DAILY [facility] Stop: 10/20/17 08:59 Last Admin: 08/29/17 08:54 Dose: 220 mg General: Alert, No acute distress (scattered rhonchi) HEENT: Atraumatic, EOMI Neck: Supple Cardiovascular: Regular rate Lungs: Other (coarse rhonchi) Abdomen: Bowel sounds, Soft, Other (INTACT GT), no Distended, no Rebound, no Guarding Extremities: Edema (upper wxtrmities), Other (upper ext) Neurological: Sensation intact Skin: no Rash Psych/Mental Status: Mood NL - Procedures Procedures: Procedures Procedure Code Date BLOOD TRANSFUSION SERVICE 17743 08/02/17 EXCISION OF STOMACH, ENDO, DIAGN [id number] 07/10/17 INSPECTION OF LOWER INTESTINAL TRACT, ENDO [id number] 07/10/17 PERFORMANCE OF URINARY FILTRATION, <6 HRS/DAY [id number] 07/10/17 RESPIRATORY VENTILATION, GREATER THAN 96 CONSECUTIVE HOURS [id number] 08/02/17 TRANSFUSE NONAUT RED BLOOD CELLS IN PERIPH VEIN, PERC [id number] 08/02/17 Assessment/Plan - Assessment Assessment: # Sepsis # Dysphagia with G tube # GI bleed # Anemia EGD and colonoscopy performed in 07/2017 revealed gastritis and hemorrhoids. SBFT showed delayed transit but no lesion. At that time, it was recommended that the pt have a bleeding scan if she rebled. Now, she is again showed signs of GI bleed on 08/25-, more lower than upper, although brisk upper cannot be ruled out. Bleeding scan on 08/27 did not show active bleed, and her stool has become brown. She may have bled from small bowel source, or from her known hemorrhoids. She was able to get dialysis on 08/27, and I suspect this has helped. Will hold off on further endoscopy given her high risk and previous negative examination unless she rebleeds. Hgb has remained stable. Plan: - hold off on EGD/colo as above, reserve for hemostasis - Switch PPI to bid dosing - CBC cycle throughout the day, transfuse to keep hgb > 7 - cont with HD
--- NOTE | 2017-08-29 14:06 | Infectious Disease Prog Note ---
Infectious Disease Subjective - Review of Systems Service Date: 08/29/17 Subjective: no fever. on levophed 3 mcg per min. Infectious Disease Objective - Results Result Diagrams: 08/29/17 04:20 08/29/17 04:20 Recent Labs: Laboratory Last Values WBC 15.2 Th/cmm (4.8-10.8) H 08/29/17 04:20 Corrected WBC (auto) 13.2 Th/cmm (4.8-10.8) H 08/28/17 06:30 RBC 3.73 Mil/cmm (3.80-5.20) L 08/29/17 04:20 Hgb 11.1 gm/dL (12-16) L 08/29/17 04:20 Hct 33.4 % (41.0-60) L D 08/29/17 04:20 MCV 89.6 fl (81-100) 08/29/17 04:20 MCH 29.6 pg (27.0-31.0) 08/29/17 04:20 MCHC Differential 33.1 pg (28.0-36.0) 08/29/17 04:20 RDW 15.1 % (11.5-20.0) 08/29/17 04:20 Plt Count 160 Th/cmm (150-400) 08/29/17 04:20 MPV 10.4 fl 08/29/17 04:20 Neutrophils % PAINTER ASSISTANT 08/28/17 06:30 Band Neutrophils % 4 % (0-10) 08/29/17 04:20 Lymphocytes % PAINTER ASSISTANT 08/28/17 06:30 Monocytes % PAINTER ASSISTANT 08/28/17 06:30 Eosinophils % PAINTER ASSISTANT 08/28/17 06:30 Basophils % PAINTER ASSISTANT 08/28/17 06:30 Neutrophils (Manual) 68 % (40-80) 08/29/17 04:20 Lymphocytes 14 % (20-50) L 08/29/17 04:20 Monocytes 7 % (2-10) 08/29/17 04:20 Eosinophils 7 % (0-5) H 08/29/17 04:20 Basophils 1 % (0-3) 08/28/17 06:30 Nucleated RBCs 1.0 % (0-0) H 08/29/17 04:20 Hypochromia 1+ 08/02/17 15:37 Platelet Estimate ADEQUATE (NORMAL) 08/28/17 06:30 Platelet Morphology NORMAL (NORMAL) 08/20/17 04:45 Anisocytosis 1+ 08/28/17 06:30 Crenated Cell 2+ 08/02/17 15:37 RBC Morph Micro Appear ABNORMAL (NORMAL) 08/02/17 15:37 PT 11.6 SECONDS (9.5-11.5) H 08/25/17 21:06 INR 1.11 (0.5-1.4) 08/25/17 21:06 PTT (Actin FS) 32.3 SECONDS (26.0-38.0) 08/25/17 21:06 Specimen Source Arterial 08/03/17 08:58 Sample Site Right Radial 08/03/17 08:58 pH 7.42 (7.35-7.45) 08/03/17 08:58 pCO2 37.0 mmHg (35.0-45.0) 08/03/17 08:58 pO2 204.0 mmHg (80.0-100.0) H 08/03/17 08:58 HCO3 24.8 mEq/L (20.0-26.0) 08/03/17 08:58 Base Excess -0.2 mEq/L (-3.0-3.0) 08/03/17 08:58 O2 Saturation 100.0 % (92.0-100.0) 08/03/17 08:58 Rhett Test Positive 08/03/17 08:58 Vent Rate 12 08/03/17 08:58 Inspired O2 60 08/03/17 08:58 Tidal Volume 450 08/03/17 08:58 PEEP 5 08/03/17 08:58 Pressure (ins/psv/peep) NA 08/03/17 08:58 Critical Value LZHANG 08/03/17 08:58 Sodium 137 mEq/L (136-145) 08/29/17 04:20 Potassium 4.0 mEq/L (3.5-5.1) 08/29/17 04:20 Chloride 101 mEq/L (98-107) 08/29/17 04:20 Carbon Dioxide 21.4 mEq/L (21.0-31.0) 08/29/17 04:20 Anion Gap 18.6 (7.0-16.0) H 08/29/17 04:20 BUN 38 mg/dL (7-25) H 08/29/17 04:20 Creatinine 2.5 mg/dL (0.6-1.2) H 08/29/17 04:20 Est GFR ( Amer) TNP 08/29/17 04:20 Est GFR (Non-Af Amer) TNP 08/29/17 04:20 BUN/Creatinine Ratio 15.2 08/29/17 04:20 Glucose 146 mg/dL (70-105) H 08/29/17 04:20 POC Glucose 191 MG/DL (70 - 105) H 08/29/17 12:26 Hemoglobin A1c % 7.7 % (4.0-6.0) H 08/02/17 15:37 Whole Bld Lactic Acid 1.97 mmol/L (0.60-1.99) 08/02/17 13:49 Calcium 8.7 mg/dL (8.6-10.3) 08/29/17 04:20 Magnesium 1.8 mg/dL (1.9-2.7) L 08/28/17 04:20 Iron 10 ug/dL (27-139) L 08/02/17 13:56 TIBC 135 ug/dL (250-450) L 08/02/17 13:56 Iron Saturation 7 % (15-55) L 08/02/17 13:56 Unsaturated IBC 125 ug/dL (118-369) 08/02/17 13:56 Ferritin 588 ng/mL (15-150) H 08/02/17 13:56 Total Bilirubin 0.4 mg/dL (0.3-1.0) 08/26/17 06:05 Direct Bilirubin 0.09 mg/dL (0.0-0.2) 08/02/17 13:57 AST 34 U/L (13-39) 08/26/17 06:05 ALT 14 U/L (7-52) 08/26/17 06:05 Alkaline Phosphatase 70 U/L (34-104) 08/26/17 06:05 Troponin I 0.10 ng/mL (0.01-0.05) H* D 08/20/17 17:00 B-Natriuretic Peptide 839.0 pg/mL (5.0-100.0) H 08/19/17 04:58 Total Protein 6.3 gm/dL (6.0-8.3) 08/26/17 06:05 Albumin 2.7 gm/dL (3.7-5.3) L 08/26/17 06:05 Globulin 3.6 gm/dL 08/26/17 06:05 Albumin/Globulin Ratio 0.8 (1.0-1.8) L 08/26/17 06:05 Triglycerides 132 mg/dL (<150) 08/04/17 06:30 Cholesterol 55 mg/dL (<200) 08/04/17 06:30 LDL Cholesterol Direct 16 mg/dL (75-193) L 08/04/17 06:30 HDL Cholesterol 13 mg/dL (23-92) L 08/04/17 06:30 Amylase 12 U/L (29-103) L 08/02/17 13:43 Lipase 4 U/L (11-82) L 08/02/17 13:43 TSH 3.74 uIU/ml (0.34-5.60) 08/04/17 06:30 Stool Occult Blood POSITIVE (NEGATIVE) H 08/03/17 17:50 Random Vancomycin 35.2 ug/mL (5.0-40.0) 08/28/17 06:30 Hepatitis A IgM Ab Negative (Negative) 08/08/17 08:15 Hep Bs Antigen Negative (Negative) 08/08/17 08:15 Hep B Core IgM Ab Negative (Negative) 08/08/17 08:15 Hepatitis C Antibody <0.1 s/co ratio (0.0-0.9) 08/08/17 08:15 Blood Type A POSITIVE 08/26/17 23:45 Rho(D) Type Cancelled 08/26/17 23:46 Antibody Screen POSITIVE 08/26/17 23:45 Antibody Identification Anti-K 08/24/17 08:30 NEVIL[place], IgG Interpret NEGATIVE 08/15/17 07:50 Crossmatch See Detail 08/26/17 23:46 Crossmatch (AHG) Cancelled 08/26/17 23:46 Donor Unit # Cancelled 08/26/17 23:46 BBK History Checked Cancelled 08/26/17 23:46 - Physical Exam Vitals and I&O: Vital Signs Temp 97.8 F 08/29/17 08:00 Pulse 73 08/29/17 13:12 Resp 16 08/29/17 10:00 BP 89/47 08/29/17 10:00 Pulse Ox 100 08/29/17 13:12 Intake & Output 08/28/17 08/29/17 08/29/17 18:59 06:59 18:59 Intake Total 184.566 7172.500 Output Total 0 Balance 250.637 3881.500 Weight (lbs) 107.955 kg Intake: Intake, IV Amount 912.868 7559.500 Dextrose 5% 1,000 ml @ 50 915 mls/hr IV .Q20H [facility] Rx#: [id number] Norepinephrine 8 mg In 114.261 Sodium Chloride 0.9% 250 ml @ 18 MCG/MIN 34.83 mls /hr IV TITR PRN Rx#: [id number] Pantoprazole 80 mg In 100 97.500 Sodium Chloride 0.9% 100 ml @ 10 mls/hr IV Q10H [facility] Rx#:[id number] Piperacillin Sodium/ 50 100 Tazobact 2.25 gm In Sodium Chloride 0.9% 50 ml @ 100 mls/hr IV Q8HR [facility] Rx#:[id number] Other 80 Output: Urine 0 Stool 0 Other: # Voids 0 # Bowel Movements 2 Stool Characteristics Liquid Liquid Liquid Brown Brown Brown Green Active Medications: Current Medications Acetaminophen (Tylenol) 650 mg GT DAILY [facility] Stop: 10/20/17 08:59 Last Admin: 08/29/17 08:54 Dose: 650 mg Albuterol/Ipratropium (Duoneb Neb) 3 ml HHN Q4HRT [facility] Stop: 10/19/17 10:59 Last Admin: 08/29/17 13:12 Dose: 3 ml Amiodarone HCl (Cordarone) 200 mg GT Q12H [facility] Stop: 10/20/17 10:59 Last Admin: 08/29/17 10:44 Dose: 200 mg Ascorbic Acid (Vitamin C) 500 mg PO DAILY [facility] Stop: 10/20/17 08:59 Last Admin: 08/29/17 08:54 Dose: 500 mg Aspirin (Aspirin Chewable) 81 mg PO DAILY [facility] Stop: 10/20/17 08:59 Last Admin: 08/29/17 08:54 Dose: 81 mg Atorvastatin Calcium (Lipitor) 40 mg GT DAILY [facility] PRN Reason: Protocol Stop: 10/20/17 08:59 Last Admin: 08/29/17 08:54 Dose: 40 mg Bisacodyl (Dulcolax 10 Mg Supp) 10 mg RC Q72HR PRN PRN Reason: if MOM ineffective Stop: 10/19/17 11:29 Chlorhexidine Gluconate (Peridex) 15 ml MM 0800,1999 [facility] Stop: 10/19/17 19:59 Last Admin: 08/29/17 08:53 Dose: 15 ml Cholecalciferol (Vitamin D3) 1,000 iu PO DAILY [facility] Stop: 10/20/17 08:59 Last Admin: 08/29/17 08:54 Dose: 1,000 iu Diltiazem HCl (Cardizem) 20 mg IV Q4HR PRN PRN Reason: HR ABOVE 120 Stop: 09/13/17 11:59 Docusate Sodium (Colace) 100 mg PO DAILY [facility] Stop: 10/20/17 08:59 Last Admin: 08/29/17 08:54 Dose: 100 mg Dopamine HCl/Dextrose (Dopamine) 400 mg in 250 mls @ 0 mls/hr IV TITR PRN; Protocol; 0 MCG/KG/MIN PRN Reason: BP MAINTENANCE (PER PROTOCOL) Stop: 10/19/17 11:28 Norepinephrine Bitartrate 8 mg (/ Sodium Chloride) 258 mls @ 34.83 mls/hr IV TITR PRN; Protocol; 18 MCG/MIN PRN Reason: BP MAINTENANCE (PER PROTOCOL) Stop: 10/19/17 11:09 Last Titration: 08/28/17 17:00 Dose: 3 mcg/min, 5.8 mls/hr Piperacillin Sod/Tazobactam (Sod 2.25 gm/ Sodium Chloride) 50 mls @ 100 mls/hr IV Q8HR [facility] Stop: 10/23/17 20:59 Last Admin: 08/29/17 12:43 Dose: 100 mls/hr Phenylephrine HCl 10 mg/ (Sodium Chloride) 250 mls @ 0 mls/hr IV TITR [facility]; Per Protocol PRN Reason: Protocol Stop: 10/24/17 10:29 Dextrose (D5w) 1,000 mls @ 50 mls/hr IV .Q20H [facility] Stop: 10/25/17 08:14 Last Admin: 08/28/17 20:18 Dose: 50 mls/hr Insulin Aspart (Novolog Insulin Sliding Scale) 0 units SUBQ Q6HR [facility] PRN Reason: Protocol Stop: 10/19/17 11:59 Last Admin: 08/29/17 12:38 Dose: 2 units Insulin Detemir (Levemir Insulin) 16 units SUBQ HS [facility] PRN Reason: Protocol Stop: 10/19/17 20:59 Last Admin: 08/29/17 00:00 Dose: Not Given Lactobacillus Rhamnosus (Culturelle 15b) 1 each PO DAILY [facility] Stop: 10/20/17 08:59 Last Admin: 08/29/17 08:53 Dose: 1 each Lorazepam (Ativan) 2 mg IVP Q4HR PRN; Protocol PRN Reason: Agitation Stop: 10/15/17 11:49 Last Admin: 08/29/17 06:34 Dose: 2 mg Magnesium Hydroxide (Milk Of Magnesia) 30 ml PO Q72HR PRN PRN Reason: Constipation Stop: 10/19/17 11:44 Mirtazapine (Remeron) 15 mg GT HS [facility] PRN Reason: Protocol Stop: 10/19/17 20:59 Last Admin: 08/28/17 20:42 Dose: 15 mg Miscellaneous (Probiotic Screen) 1 ea MC PRN PRN PRN Reason: PROTOCOL Stop: 10/22/17 10:29 Miscellaneous (Vancomycin Iv Per Pharmacy) 1 ea MC PRN [facility] Stop: 10/23/17 16:59 Multivitamins/Vitamin C (Theragran) 1 tab PO DAILY [facility] Stop: 10/20/17 08:59 Last Admin: 08/29/17 08:54 Dose: 1 tab Ondansetron HCl (Zofran) 4 mg IV Q6H PRN PRN Reason: Nausea / Vomiting Stop: 10/19/17 11:40 Pantoprazole Sodium (Protonix) 40 mg IVP BID [facility] Stop: 10/28/17 16:59 Simethicone (Mylicon) 80 mg GT Q6HR PRN PRN Reason: Gas Stop: 10/19/17 11:59 Sodium Phosphate (Fleet Enema) 135 ml RC PRN PRN PRN Reason: If MOM/Dulcolax ineffective Stop: 10/19/17 11:29 Zinc Sulfate (Zinc Sulfate) 220 mg PO DAILY [facility] Stop: 10/20/17 08:59 Last Admin: 08/29/17 08:54 Dose: 220 mg General: no acute distress, well developed, well nourished HEENT: atraumatic, normocephalic, PERRLA Neck: supple, no thyromegaly, no lymphadenopathy Cardiovascular: S1S2, regular Lungs: clear to auscultation bilaterally, clear to percussion Abdomen: soft, no tender, no distended Extremities: no cyanosis, no clubbing, no edema Neurological: awake, alert, oriented Skin: intact - Procedures Procedures: Procedures Procedure Code Date BLOOD TRANSFUSION SERVICE 62519 08/02/17 EXCISION OF STOMACH, ENDO, DIAGN [id number] 07/10/17 INSPECTION OF LOWER INTESTINAL TRACT, ENDO [id number] 07/10/17 PERFORMANCE OF URINARY FILTRATION, <6 HRS/DAY [id number] 07/10/17 RESPIRATORY VENTILATION, GREATER THAN 96 CONSECUTIVE HOURS [id number] 08/02/17 TRANSFUSE NONAUT RED BLOOD CELLS IN PERIPH VEIN, PERC [id number] 08/02/17 Infectious Disease Assmt/Plan - Assessment Assessment: 1. Septic shock. versus cardiogenic shock. 2. Gram-negative negative bacteremia treated 3. Pneumonia. 4. 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 5. Diabetes mellitus type 2. 6. Obesity. 7. Hypotension on levophed. 8. Gi bleed. - Plan Plan: Continue vancomycin IV and Zosyn. Patient has poor prognosis. Nutritional Asmnt/Malnutr-PDOC - Dietary Evaluation Malnutrition Findings (Please click <Entered> for more info): Nutritional Asmnt/Malnutrition Start: 08/05/17 15: 53 Text: Status: Complete Freq: Document 08/05/17 15:53 [facility] (Rec: 08/05/17 16:19 [place] [id number]) Nutritional Asmnt/Malnutrition Patient General Information Nutritional Screening High Risk Diagnosis sepsis, respiratory failure, ESRD Pertinent Medical Hx/Surgical Hx ESRD on HD, respiratory failure with tracheostomy, dysphagia, a fib, anemia, HTN, GERD Subjective Information Pt on vent, not able to interview. Pt was on TF Novosource Renal 30ml/hr continuous, NPO today for surgery. Pt has dialysis ordred per nurse note. Current Diet Order/ Nutrition Support NPO on 08/05 Pertinent Medications vit C, vit D3, colace, novolog , remeron, theragran, protonix , zinc Pertinent Labs 08/05 Na 134, K 3.6, Cl 102, BUN 77, Cr 4.2, Glucose 216, POC 224-233 08/02 A1c 7.7 Nutritional Hx/Data Height 1.6 m Height (Calculated Centimeters) 160.0 Current Weight (lbs) 87.543 kg Weight (Calculated Kilograms) 87.5 Weight (Calculated Grams) 67896.3 [place] Body Weight 115 Body Mass Index (BMI) 34.2 Weight Status Obese GI Symptoms GI Symptoms None Last BM 08/04 Difficult in: None Skin Integrity/Comment: reddened to left/right inner thigh, right lateral index finger, right/left arm; skin tear to left abdominal fold; pressure area to coccy/sacral Estimated Nutritional Goals BEE in Kcals: Adj wt of IBW Calories/Kcals/Kg 30-35 adj wt 61kg Kcals Calculated 3358-8321 Protein: Adj wt of IBW Protein g/k.2-1.4 Protein Calculated 73-85 Fluid: ml 1830-2135ml (1ml/kcal) Nutritional Problem 1. Problem Problem altered nutrition related lab values Etiology hx of ESRD, endocrine dysfunction Signs/Symptoms: BUN 77, Cr 4.2, Glucose 216, POC 224-233, A1c 7.7 Malnutrition Alert Protein-Calorie Malnutrition N/A Is there a minimum of two criteria No selected? Query Text:Check all the applicable criteria. A minimum of two criteria are recommended for diagnosis of either severe or non-severe malnutrition. Intervention/Recommendation Comments 1. Resume TF Novosource Renal 30ml/hr continuous as ordered. increase to goal rate of 40ml /hr continuous as tolerated. This will provide 1920kcal, 87g protein and 688ml free water, meeting 100% of nutritional needs 2. Monitor TF rate, tolerance, wt weekly, skin integrity and labs 3. F/U as high risk in 2-3 days, 08/07-08/08 Expected Outcomes/Goals Expected Outcomes/Goals 1. Pt to meet at least 75% of nutritional needs via nutrition support with tolerance 2. Wt stability, skin to remain intact, labs to approach WNL.
--- NOTE | 2017-08-29 15:24 | Internal Medicine Prog Note ---
Internal Medicine Subjective - Subjective Service Date: 08/29/17 (remains on levophed 2mcg/min) Patient is:: awake, non-verbal Per staff patient has:: tolerating meds Internal Medicine Objective - Results Result Diagrams: 08/29/17 04:20 08/29/17 04:20 Recent Labs: Laboratory Last Values WBC 15.2 Th/cmm (4.8-10.8) H 08/29/17 04:20 Corrected WBC (auto) 13.2 Th/cmm (4.8-10.8) H 08/28/17 06:30 RBC 3.73 Mil/cmm (3.80-5.20) L 08/29/17 04:20 Hgb 11.1 gm/dL (12-16) L 08/29/17 04:20 Hct 33.4 % (41.0-60) L D 08/29/17 04:20 MCV 89.6 fl (81-100) 08/29/17 04:20 MCH 29.6 pg (27.0-31.0) 08/29/17 04:20 MCHC Differential 33.1 pg (28.0-36.0) 08/29/17 04:20 RDW 15.1 % (11.5-20.0) 08/29/17 04:20 Plt Count 160 Th/cmm (150-400) 08/29/17 04:20 MPV 10.4 fl 08/29/17 04:20 Neutrophils % FACILITIES MAINTENANCE ENGINEER 08/28/17 06:30 Band Neutrophils % 4 % (0-10) 08/29/17 04:20 Lymphocytes % FACILITIES MAINTENANCE ENGINEER 08/28/17 06:30 Monocytes % FACILITIES MAINTENANCE ENGINEER 08/28/17 06:30 Eosinophils % FACILITIES MAINTENANCE ENGINEER 08/28/17 06:30 Basophils % FACILITIES MAINTENANCE ENGINEER 08/28/17 06:30 Neutrophils (Manual) 68 % (40-80) 08/29/17 04:20 Lymphocytes 14 % (20-50) L 08/29/17 04:20 Monocytes 7 % (2-10) 08/29/17 04:20 Eosinophils 7 % (0-5) H 08/29/17 04:20 Basophils 1 % (0-3) 08/28/17 06:30 Nucleated RBCs 1.0 % (0-0) H 08/29/17 04:20 Hypochromia 1+ 08/02/17 15:37 Platelet Estimate ADEQUATE (NORMAL) 08/28/17 06:30 Platelet Morphology NORMAL (NORMAL) 08/20/17 04:45 Anisocytosis 1+ 08/28/17 06:30 Crenated Cell 2+ 08/02/17 15:37 RBC Morph Micro Appear ABNORMAL (NORMAL) 08/02/17 15:37 PT 11.6 SECONDS (9.5-11.5) H 08/25/17 21:06 INR 1.11 (0.5-1.4) 08/25/17 21:06 PTT (Actin FS) 32.3 SECONDS (26.0-38.0) 08/25/17 21:06 Specimen Source Arterial 08/03/17 08:58 Sample Site Right Radial 08/03/17 08:58 pH 7.42 (7.35-7.45) 08/03/17 08:58 pCO2 37.0 mmHg (35.0-45.0) 08/03/17 08:58 pO2 204.0 mmHg (80.0-100.0) H 08/03/17 08:58 HCO3 24.8 mEq/L (20.0-26.0) 08/03/17 08:58 Base Excess -0.2 mEq/L (-3.0-3.0) 08/03/17 08:58 O2 Saturation 100.0 % (92.0-100.0) 08/03/17 08:58 Rhett Test Positive 08/03/17 08:58 Vent Rate 12 08/03/17 08:58 Inspired O2 60 08/03/17 08:58 Tidal Volume 450 08/03/17 08:58 PEEP 5 08/03/17 08:58 Pressure (ins/psv/peep) NA 08/03/17 08:58 Critical Value LZHANG 08/03/17 08:58 Sodium 137 mEq/L (136-145) 08/29/17 04:20 Potassium 4.0 mEq/L (3.5-5.1) 08/29/17 04:20 Chloride 101 mEq/L (98-107) 08/29/17 04:20 Carbon Dioxide 21.4 mEq/L (21.0-31.0) 08/29/17 04:20 Anion Gap 18.6 (7.0-16.0) H 08/29/17 04:20 BUN 38 mg/dL (7-25) H 08/29/17 04:20 Creatinine 2.5 mg/dL (0.6-1.2) H 08/29/17 04:20 Est GFR ( Amer) TNP 08/29/17 04:20 Est GFR (Non-Af Amer) TNP 08/29/17 04:20 BUN/Creatinine Ratio 15.2 08/29/17 04:20 Glucose 146 mg/dL (70-105) H 08/29/17 04:20 POC Glucose 191 MG/DL (70 - 105) H 08/29/17 12:26 Hemoglobin A1c % 7.7 % (4.0-6.0) H 08/02/17 15:37 Whole Bld Lactic Acid 1.97 mmol/L (0.60-1.99) 08/02/17 13:49 Calcium 8.7 mg/dL (8.6-10.3) 08/29/17 04:20 Magnesium 1.8 mg/dL (1.9-2.7) L 08/28/17 04:20 Iron 10 ug/dL (27-139) L 08/02/17 13:56 TIBC 135 ug/dL (250-450) L 08/02/17 13:56 Iron Saturation 7 % (15-55) L 08/02/17 13:56 Unsaturated IBC 125 ug/dL (118-369) 08/02/17 13:56 Ferritin 588 ng/mL (15-150) H 08/02/17 13:56 Total Bilirubin 0.4 mg/dL (0.3-1.0) 08/26/17 06:05 Direct Bilirubin 0.09 mg/dL (0.0-0.2) 08/02/17 13:57 AST 34 U/L (13-39) 08/26/17 06:05 ALT 14 U/L (7-52) 08/26/17 06:05 Alkaline Phosphatase 70 U/L (34-104) 08/26/17 06:05 Troponin I 0.10 ng/mL (0.01-0.05) H* D 08/20/17 17:00 B-Natriuretic Peptide 839.0 pg/mL (5.0-100.0) H 08/19/17 04:58 Total Protein 6.3 gm/dL (6.0-8.3) 08/26/17 06:05 Albumin 2.7 gm/dL (3.7-5.3) L 08/26/17 06:05 Globulin 3.6 gm/dL 08/26/17 06:05 Albumin/Globulin Ratio 0.8 (1.0-1.8) L 08/26/17 06:05 Triglycerides 132 mg/dL (<150) 08/04/17 06:30 Cholesterol 55 mg/dL (<200) 08/04/17 06:30 LDL Cholesterol Direct 16 mg/dL (75-193) L 08/04/17 06:30 HDL Cholesterol 13 mg/dL (23-92) L 08/04/17 06:30 Amylase 12 U/L (29-103) L 08/02/17 13:43 Lipase 4 U/L (11-82) L 08/02/17 13:43 TSH 3.74 uIU/ml (0.34-5.60) 08/04/17 06:30 Stool Occult Blood POSITIVE (NEGATIVE) H 08/03/17 17:50 Random Vancomycin 35.2 ug/mL (5.0-40.0) 08/28/17 06:30 Hepatitis A IgM Ab Negative (Negative) 08/08/17 08:15 Hep Bs Antigen Negative (Negative) 08/08/17 08:15 Hep B Core IgM Ab Negative (Negative) 08/08/17 08:15 Hepatitis C Antibody <0.1 s/co ratio (0.0-0.9) 08/08/17 08:15 Blood Type A POSITIVE 08/26/17 23:45 Rho(D) Type Cancelled 08/26/17 23:46 Antibody Screen POSITIVE 08/26/17 23:45 Antibody Identification Anti-K 08/24/17 08:30 N[place], IgG Interpret NEGATIVE 08/15/17 07:50 Crossmatch See Detail 08/26/17 23:46 Crossmatch (AHG) Cancelled 08/26/17 23:46 Donor Unit # Cancelled 08/26/17 23:46 BBK History Checked Cancelled 08/26/17 23:46 - Physical Exam Vitals and I&O: Vital Signs Temp 97.8 F 08/29/17 08:00 Pulse 68 08/29/17 15:02 Resp 16 08/29/17 10:00 BP 89/47 08/29/17 10:00 Pulse Ox 100 08/29/17 15:02 Intake & Output 08/28/17 08/29/17 08/29/17 18:59 06:59 18:59 Intake Total 072.877 6872.500 Output Total 0 Balance 604.960 2492.500 Weight (lbs) 238 lb Intake: Intake, IV Amount 249.530 6266.500 Dextrose 5% 1,000 ml @ 50 915 mls/hr IV .Q20H [facility] Rx#: [id number] Norepinephrine 8 mg In 114.261 Sodium Chloride 0.9% 250 ml @ 18 MCG/MIN 34.83 mls /hr IV TITR PRN Rx#: [id number] Pantoprazole 80 mg In 100 97.500 Sodium Chloride 0.9% 100 ml @ 10 mls/hr IV Q10H [facility] Rx#:[id number] Piperacillin Sodium/ 50 100 Tazobact 2.25 gm In Sodium Chloride 0.9% 50 ml @ 100 mls/hr IV Q8HR [facility] Rx#:[id number] Other 80 Output: Urine 0 Stool 0 Other: # Voids 0 # Bowel Movements 2 Stool Characteristics Liquid Liquid Liquid Brown Brown Brown Green Weight Source Bedscale Active Medications: Current Medications Acetaminophen (Tylenol) 650 mg GT DAILY [facility] Stop: 10/20/17 08:59 Last Admin: 08/29/17 08:54 Dose: 650 mg Albuterol/Ipratropium (Duoneb Neb) 3 ml HHN Q4HRT [facility] Stop: 10/19/17 10:59 Last Admin: 08/29/17 13:12 Dose: 3 ml Amiodarone HCl (Cordarone) 200 mg GT Q12H [facility] Stop: 10/20/17 10:59 Last Admin: 08/29/17 10:44 Dose: 200 mg Ascorbic Acid (Vitamin C) 500 mg PO DAILY [facility] Stop: 10/20/17 08:59 Last Admin: 08/29/17 08:54 Dose: 500 mg Aspirin (Aspirin Chewable) 81 mg PO DAILY [facility] Stop: 10/20/17 08:59 Last Admin: 08/29/17 08:54 Dose: 81 mg Atorvastatin Calcium (Lipitor) 40 mg GT DAILY [facility] PRN Reason: Protocol Stop: 10/20/17 08:59 Last Admin: 08/29/17 08:54 Dose: 40 mg Bisacodyl (Dulcolax 10 Mg Supp) 10 mg RC Q72HR PRN PRN Reason: if MOM ineffective Stop: 10/19/17 11:29 Chlorhexidine Gluconate (Peridex) 15 ml MM 0800,1999 [facility] Stop: 10/19/17 19:59 Last Admin: 08/29/17 08:53 Dose: 15 ml Cholecalciferol (Vitamin D3) 1,000 iu PO DAILY [facility] Stop: 10/20/17 08:59 Last Admin: 08/29/17 08:54 Dose: 1,000 iu Diltiazem HCl (Cardizem) 20 mg IV Q4HR PRN PRN Reason: HR ABOVE 120 Stop: 09/13/17 11:59 Docusate Sodium (Colace) 100 mg PO DAILY [facility] Stop: 10/20/17 08:59 Last Admin: 08/29/17 08:54 Dose: 100 mg Dopamine HCl/Dextrose (Dopamine) 400 mg in 250 mls @ 0 mls/hr IV TITR PRN; Protocol; 0 MCG/KG/MIN PRN Reason: BP MAINTENANCE (PER PROTOCOL) Stop: 10/19/17 11:28 Norepinephrine Bitartrate 8 mg (/ Sodium Chloride) 258 mls @ 34.83 mls/hr IV TITR PRN; Protocol; 18 MCG/MIN PRN Reason: BP MAINTENANCE (PER PROTOCOL) Stop: 10/19/17 11:09 Last Titration: 08/28/17 17:00 Dose: 3 mcg/min, 5.8 mls/hr Piperacillin Sod/Tazobactam (Sod 2.25 gm/ Sodium Chloride) 50 mls @ 100 mls/hr IV Q8HR [facility] Stop: 10/23/17 20:59 Last Admin: 08/29/17 12:43 Dose: 100 mls/hr Phenylephrine HCl 10 mg/ (Sodium Chloride) 250 mls @ 0 mls/hr IV TITR [facility]; Per Protocol PRN Reason: Protocol Stop: 10/24/17 10:29 Dextrose (D5w) 1,000 mls @ 50 mls/hr IV .Q20H [facility] Stop: 10/25/17 08:14 Last Admin: 08/28/17 20:18 Dose: 50 mls/hr Insulin Aspart (Novolog Insulin Sliding Scale) 0 units SUBQ Q6HR [facility] PRN Reason: Protocol Stop: 10/19/17 11:59 Last Admin: 08/29/17 12:38 Dose: 2 units Insulin Detemir (Levemir Insulin) 16 units SUBQ HS [facility] PRN Reason: Protocol Stop: 10/19/17 20:59 Last Admin: 08/29/17 00:00 Dose: Not Given Lactobacillus Rhamnosus (Culturelle 15b) 1 each PO DAILY [facility] Stop: 10/20/17 08:59 Last Admin: 08/29/17 08:53 Dose: 1 each Lorazepam (Ativan) 2 mg IVP Q4HR PRN; Protocol PRN Reason: Agitation Stop: 10/15/17 11:49 Last Admin: 08/29/17 14:46 Dose: 2 mg Magnesium Hydroxide (Milk Of Magnesia) 30 ml PO Q72HR PRN PRN Reason: Constipation Stop: 10/19/17 11:44 Mirtazapine (Remeron) 15 mg GT HS [facility] PRN Reason: Protocol Stop: 10/19/17 20:59 Last Admin: 08/28/17 20:42 Dose: 15 mg Miscellaneous (Probiotic Screen) 1 ea MC PRN PRN PRN Reason: PROTOCOL Stop: 10/22/17 10:29 Miscellaneous (Vancomycin Iv Per Pharmacy) 1 ea MC PRN [facility] Stop: 10/23/17 16:59 Multivitamins/Vitamin C (Theragran) 1 tab PO DAILY [facility] Stop: 10/20/17 08:59 Last Admin: 08/29/17 08:54 Dose: 1 tab Ondansetron HCl (Zofran) 4 mg IV Q6H PRN PRN Reason: Nausea / Vomiting Stop: 10/19/17 11:40 Pantoprazole Sodium (Protonix) 40 mg IVP BID [facility] Stop: 10/28/17 16:59 Simethicone (Mylicon) 80 mg GT Q6HR PRN PRN Reason: Gas Stop: 10/19/17 11:59 Sodium Phosphate (Fleet Enema) 135 ml RC PRN PRN PRN Reason: If MOM/Dulcolax ineffective Stop: 10/19/17 11:29 Zinc Sulfate (Zinc Sulfate) 220 mg PO DAILY [facility] Stop: 10/20/17 08:59 Last Admin: 08/29/17 08:54 Dose: 220 mg General: weak, obtunded HEENT: NC/AT, PERRLA Neck: Supple Lungs: ronchi Abdomen: soft, non-tender, non-distended, +GT Neurological: unable to follow command - Procedures Procedures: Procedures Procedure Code Date BLOOD TRANSFUSION SERVICE 34450 08/02/17 EXCISION OF STOMACH, ENDO, DIAGN [id number] 07/10/17 INSPECTION OF LOWER INTESTINAL TRACT, ENDO [id number] 07/10/17 PERFORMANCE OF URINARY FILTRATION, <6 HRS/DAY [id number] 07/10/17 RESPIRATORY VENTILATION, GREATER THAN 96 CONSECUTIVE HOURS [id number] 08/02/17 TRANSFUSE NONAUT RED BLOOD CELLS IN PERIPH VEIN, PERC [id number] 08/02/17 Internal Medicine Assmt/Plan - Assessment Assessment: Assessment: 1. Septic shock. 2. Gram-negative negative bacteremia. 3. Pneumonia. 4. CK D stage V pneumatosis. 5. Diabetes mellitus type 2. 6. Obesity. 7. hypotension - Plan Plan: monitor glucose cbc.bmp in am continue ivabx as per ID continue current orders Nutritional Asmnt/Malnutr-PDOC - Dietary Evaluation Malnutrition Findings (Please click <Entered> for more info): Nutritional Asmnt/Malnutrition Start: 08/05/17 15: 53 Text: Status: Complete Freq: Document 08/05/17 15:53 NAVIN (Rec: 08/05/17 16:19 NAVING [email or web address]) Nutritional Asmnt/Malnutrition Patient General Information Nutritional Screening High Risk Diagnosis sepsis, respiratory failure, ESRD Pertinent Medical Hx/Surgical Hx ESRD on HD, respiratory failure with tracheostomy, dysphagia, a fib, anemia, HTN, GERD Subjective Information Pt on vent, not able to interview. Pt was on TF Novosource Renal 30ml/hr continuous, NPO today for surgery. Pt has dialysis ordred per nurse note. Current Diet Order/ Nutrition Support NPO on 08/05 Pertinent Medications vit C, vit D3, colace, novolog , remeron, theragran, protonix , zinc Pertinent Labs 08/05 Na 134, K 3.6, Cl 102, BUN 77, Cr 4.2, Glucose 216, POC 224-233 08/02 A1c 7.7 Nutritional Hx/Data Height 5 ft 3 in Height (Calculated Centimeters) 160.0 Current Weight (lbs) 193 lb Weight (Calculated Kilograms) 87.5 Weight (Calculated Grams) [address].3 [place] Body Weight 115 Body Mass Index (BMI) 34.2 Weight Status Obese GI Symptoms GI Symptoms None Last BM 08/04 Difficult in: None Skin Integrity/Comment: reddened to left/right inner thigh, right lateral index finger, right/left arm; skin tear to left abdominal fold; pressure area to coccy/sacral Estimated Nutritional Goals BEE in Kcals: Adj wt of IBW Calories/Kcals/Kg 30-35 adj wt 61kg Kcals Calculated 2564-3812 Protein: Adj wt of IBW Protein g/k.2-1.4 Protein Calculated 73-85 Fluid: ml 1830-2135ml (1ml/kcal) Nutritional Problem 1. Problem Problem altered nutrition related lab values Etiology hx of ESRD, endocrine dysfunction Signs/Symptoms: BUN 77, Cr 4.2, Glucose 216, POC 224-233, A1c 7.7 Malnutrition Alert Protein-Calorie Malnutrition N/A Is there a minimum of two criteria No selected? Query Text:Check all the applicable criteria. A minimum of two criteria are recommended for diagnosis of either severe or non-severe malnutrition. Intervention/Recommendation Comments 1. Resume TF Novosource Renal 30ml/hr continuous as ordered. increase to goal rate of 40ml /hr continuous as tolerated. This will provide 1920kcal, 87g protein and 688ml free water, meeting 100% of nutritional needs 2. Monitor TF rate, tolerance, wt weekly, skin integrity and labs 3. F/U as high risk in 2-3 days, 08/07-08/08 Expected Outcomes/Goals Expected Outcomes/Goals 1. Pt to meet at least 75% of nutritional needs via nutrition support with tolerance 2. Wt stability, skin to remain intact, labs to approach WNL.
--- NOTE | 2017-08-29 15:30 | General Progress Note ---
Subjective - Review of Systems Service Date: 08/29/17 Subjective: more awake today, talking, on vent Objective - Results Result Diagrams: 08/29/17 04:20 08/29/17 04:20 Recent Labs: Laboratory Last Values WBC 15.2 Th/cmm (4.8-10.8) H 08/29/17 04:20 Corrected WBC (auto) 13.2 Th/cmm (4.8-10.8) H 08/28/17 06:30 RBC 3.73 Mil/cmm (3.80-5.20) L 08/29/17 04:20 Hgb 11.1 gm/dL (12-16) L 08/29/17 04:20 Hct 33.4 % (41.0-60) L D 08/29/17 04:20 MCV 89.6 fl (81-100) 08/29/17 04:20 MCH 29.6 pg (27.0-31.0) 08/29/17 04:20 MCHC Differential 33.1 pg (28.0-36.0) 08/29/17 04:20 RDW 15.1 % (11.5-20.0) 08/29/17 04:20 Plt Count 160 Th/cmm (150-400) 08/29/17 04:20 MPV 10.4 fl 08/29/17 04:20 Neutrophils % WIRE INSULATOR 08/28/17 06:30 Band Neutrophils % 4 % (0-10) 08/29/17 04:20 Lymphocytes % WIRE INSULATOR 08/28/17 06:30 Monocytes % WIRE INSULATOR 08/28/17 06:30 Eosinophils % WIRE INSULATOR 08/28/17 06:30 Basophils % WIRE INSULATOR 08/28/17 06:30 Neutrophils (Manual) 68 % (40-80) 08/29/17 04:20 Lymphocytes 14 % (20-50) L 08/29/17 04:20 Monocytes 7 % (2-10) 08/29/17 04:20 Eosinophils 7 % (0-5) H 08/29/17 04:20 Basophils 1 % (0-3) 08/28/17 06:30 Nucleated RBCs 1.0 % (0-0) H 08/29/17 04:20 Hypochromia 1+ 08/02/17 15:37 Platelet Estimate ADEQUATE (NORMAL) 08/28/17 06:30 Platelet Morphology NORMAL (NORMAL) 08/20/17 04:45 Anisocytosis 1+ 08/28/17 06:30 Crenated Cell 2+ 08/02/17 15:37 RBC Morph Micro Appear ABNORMAL (NORMAL) 08/02/17 15:37 PT 11.6 SECONDS (9.5-11.5) H 08/25/17 21:06 INR 1.11 (0.5-1.4) 08/25/17 21:06 PTT (Actin FS) 32.3 SECONDS (26.0-38.0) 08/25/17 21:06 Specimen Source Arterial 08/03/17 08:58 Sample Site Right Radial 08/03/17 08:58 pH 7.42 (7.35-7.45) 08/03/17 08:58 pCO2 37.0 mmHg (35.0-45.0) 08/03/17 08:58 pO2 204.0 mmHg (80.0-100.0) H 08/03/17 08:58 HCO3 24.8 mEq/L (20.0-26.0) 08/03/17 08:58 Base Excess -0.2 mEq/L (-3.0-3.0) 08/03/17 08:58 O2 Saturation 100.0 % (92.0-100.0) 08/03/17 08:58 Rhett Test Positive 08/03/17 08:58 Vent Rate 12 08/03/17 08:58 Inspired O2 60 08/03/17 08:58 Tidal Volume 450 08/03/17 08:58 PEEP 5 08/03/17 08:58 Pressure (ins/psv/peep) NA 08/03/17 08:58 Critical Value LZHANG 08/03/17 08:58 Sodium 137 mEq/L (136-145) 08/29/17 04:20 Potassium 4.0 mEq/L (3.5-5.1) 08/29/17 04:20 Chloride 101 mEq/L (98-107) 08/29/17 04:20 Carbon Dioxide 21.4 mEq/L (21.0-31.0) 08/29/17 04:20 Anion Gap 18.6 (7.0-16.0) H 08/29/17 04:20 BUN 38 mg/dL (7-25) H 08/29/17 04:20 Creatinine 2.5 mg/dL (0.6-1.2) H 08/29/17 04:20 Est GFR ( Amer) TNP 08/29/17 04:20 Est GFR (Non-Af Amer) TNP 08/29/17 04:20 BUN/Creatinine Ratio 15.2 08/29/17 04:20 Glucose 146 mg/dL (70-105) H 08/29/17 04:20 POC Glucose 191 MG/DL (70 - 105) H 08/29/17 12:26 Hemoglobin A1c % 7.7 % (4.0-6.0) H 08/02/17 15:37 Whole Bld Lactic Acid 1.97 mmol/L (0.60-1.99) 08/02/17 13:49 Calcium 8.7 mg/dL (8.6-10.3) 08/29/17 04:20 Magnesium 1.8 mg/dL (1.9-2.7) L 08/28/17 04:20 Iron 10 ug/dL (27-139) L 08/02/17 13:56 TIBC 135 ug/dL (250-450) L 08/02/17 13:56 Iron Saturation 7 % (15-55) L 08/02/17 13:56 Unsaturated IBC 125 ug/dL (118-369) 08/02/17 13:56 Ferritin 588 ng/mL (15-150) H 08/02/17 13:56 Total Bilirubin 0.4 mg/dL (0.3-1.0) 08/26/17 06:05 Direct Bilirubin 0.09 mg/dL (0.0-0.2) 08/02/17 13:57 AST 34 U/L (13-39) 08/26/17 06:05 ALT 14 U/L (7-52) 08/26/17 06:05 Alkaline Phosphatase 70 U/L (34-104) 08/26/17 06:05 Troponin I 0.10 ng/mL (0.01-0.05) H* D 08/20/17 17:00 B-Natriuretic Peptide 839.0 pg/mL (5.0-100.0) H 08/19/17 04:58 Total Protein 6.3 gm/dL (6.0-8.3) 08/26/17 06:05 Albumin 2.7 gm/dL (3.7-5.3) L 08/26/17 06:05 Globulin 3.6 gm/dL 08/26/17 06:05 Albumin/Globulin Ratio 0.8 (1.0-1.8) L 08/26/17 06:05 Triglycerides 132 mg/dL (<150) 08/04/17 06:30 Cholesterol 55 mg/dL (<200) 08/04/17 06:30 LDL Cholesterol Direct 16 mg/dL (75-193) L 08/04/17 06:30 HDL Cholesterol 13 mg/dL (23-92) L 08/04/17 06:30 Amylase 12 U/L (29-103) L 08/02/17 13:43 Lipase 4 U/L (11-82) L 08/02/17 13:43 TSH 3.74 uIU/ml (0.34-5.60) 08/04/17 06:30 Stool Occult Blood POSITIVE (NEGATIVE) H 08/03/17 17:50 Random Vancomycin 35.2 ug/mL (5.0-40.0) 08/28/17 06:30 Hepatitis A IgM Ab Negative (Negative) 08/08/17 08:15 Hep Bs Antigen Negative (Negative) 08/08/17 08:15 Hep B Core IgM Ab Negative (Negative) 08/08/17 08:15 Hepatitis C Antibody <0.1 s/co ratio (0.0-0.9) 08/08/17 08:15 Blood Type A POSITIVE 08/26/17 23:45 Rho(D) Type Cancelled 08/26/17 23:46 Antibody Screen POSITIVE 08/26/17 23:45 Antibody Identification Anti-K 08/24/17 08:30 N[place], IgG Interpret NEGATIVE 08/15/17 07:50 Crossmatch See Detail 08/26/17 23:46 Crossmatch (AHG) Cancelled 08/26/17 23:46 Donor Unit # Cancelled 08/26/17 23:46 BBK History Checked Cancelled 08/26/17 23:46 - Physical Exam Vitals and I&O: Vital Signs Temp 97.8 F 08/29/17 08:00 Pulse 68 08/29/17 15:02 Resp 16 08/29/17 10:00 BP 89/47 08/29/17 10:00 Pulse Ox 100 08/29/17 15:02 Intake & Output 08/28/17 08/29/17 08/29/17 18:59 06:59 18:59 Intake Total 965.509 6322.500 Output Total 0 Balance 737.711 5960.500 Weight (lbs) 107.955 kg Intake: Intake, IV Amount 784.281 6150.500 Dextrose 5% 1,000 ml @ 50 915 mls/hr IV .Q20H [facility] Rx#: [id number] Norepinephrine 8 mg In 114.261 Sodium Chloride 0.9% 250 ml @ 18 MCG/MIN 34.83 mls /hr IV TITR PRN Rx#: [id number] Pantoprazole 80 mg In 100 97.500 Sodium Chloride 0.9% 100 ml @ 10 mls/hr IV Q10H [facility] Rx#:[id number] Piperacillin Sodium/ 50 100 Tazobact 2.25 gm In Sodium Chloride 0.9% 50 ml @ 100 mls/hr IV Q8HR [facility] Rx#:[id number] Other 80 Output: Urine 0 Stool 0 Other: # Voids 0 # Bowel Movements 2 Stool Characteristics Liquid Liquid Liquid Brown Brown Brown Green Weight Source Bedscale Active Medications: Current Medications Acetaminophen (Tylenol) 650 mg GT DAILY [facility] Stop: 10/20/17 08:59 Last Admin: 08/29/17 08:54 Dose: 650 mg Albuterol/Ipratropium (Duoneb Neb) 3 ml HHN Q4HRT [facility] Stop: 10/19/17 10:59 Last Admin: 08/29/17 13:12 Dose: 3 ml Amiodarone HCl (Cordarone) 200 mg GT Q12H [facility] Stop: 10/20/17 10:59 Last Admin: 08/29/17 10:44 Dose: 200 mg Ascorbic Acid (Vitamin C) 500 mg PO DAILY [facility] Stop: 10/20/17 08:59 Last Admin: 08/29/17 08:54 Dose: 500 mg Aspirin (Aspirin Chewable) 81 mg PO DAILY [facility] Stop: 10/20/17 08:59 Last Admin: 08/29/17 08:54 Dose: 81 mg Atorvastatin Calcium (Lipitor) 40 mg GT DAILY [facility] PRN Reason: Protocol Stop: 10/20/17 08:59 Last Admin: 08/29/17 08:54 Dose: 40 mg Bisacodyl (Dulcolax 10 Mg Supp) 10 mg RC Q72HR PRN PRN Reason: if MOM ineffective Stop: 10/19/17 11:29 Chlorhexidine Gluconate (Peridex) 15 ml MM 0800,1999 [facility] Stop: 10/19/17 19:59 Last Admin: 08/29/17 08:53 Dose: 15 ml Cholecalciferol (Vitamin D3) 1,000 iu PO DAILY [facility] Stop: 10/20/17 08:59 Last Admin: 08/29/17 08:54 Dose: 1,000 iu Diltiazem HCl (Cardizem) 20 mg IV Q4HR PRN PRN Reason: HR ABOVE 120 Stop: 09/13/17 11:59 Docusate Sodium (Colace) 100 mg PO DAILY [facility] Stop: 10/20/17 08:59 Last Admin: 08/29/17 08:54 Dose: 100 mg Dopamine HCl/Dextrose (Dopamine) 400 mg in 250 mls @ 0 mls/hr IV TITR PRN; Protocol; 0 MCG/KG/MIN PRN Reason: BP MAINTENANCE (PER PROTOCOL) Stop: 10/19/17 11:28 Norepinephrine Bitartrate 8 mg (/ Sodium Chloride) 258 mls @ 34.83 mls/hr IV TITR PRN; Protocol; 18 MCG/MIN PRN Reason: BP MAINTENANCE (PER PROTOCOL) Stop: 10/19/17 11:09 Last Titration: 08/28/17 17:00 Dose: 3 mcg/min, 5.8 mls/hr Piperacillin Sod/Tazobactam (Sod 2.25 gm/ Sodium Chloride) 50 mls @ 100 mls/hr IV Q8HR [facility] Stop: 10/23/17 20:59 Last Admin: 08/29/17 12:43 Dose: 100 mls/hr Phenylephrine HCl 10 mg/ (Sodium Chloride) 250 mls @ 0 mls/hr IV TITR [facility]; Per Protocol PRN Reason: Protocol Stop: 10/24/17 10:29 Dextrose (D5w) 1,000 mls @ 50 mls/hr IV .Q20H [facility] Stop: 10/25/17 08:14 Last Admin: 08/28/17 20:18 Dose: 50 mls/hr Insulin Aspart (Novolog Insulin Sliding Scale) 0 units SUBQ Q6HR [facility] PRN Reason: Protocol Stop: 10/19/17 11:59 Last Admin: 08/29/17 12:38 Dose: 2 units Insulin Detemir (Levemir Insulin) 16 units SUBQ HS [facility] PRN Reason: Protocol Stop: 10/19/17 20:59 Last Admin: 08/29/17 00:00 Dose: Not Given Lactobacillus Rhamnosus (Culturelle 15b) 1 each PO DAILY [facility] Stop: 10/20/17 08:59 Last Admin: 08/29/17 08:53 Dose: 1 each Lorazepam (Ativan) 2 mg IVP Q4HR PRN; Protocol PRN Reason: Agitation Stop: 10/15/17 11:49 Last Admin: 08/29/17 14:46 Dose: 2 mg Magnesium Hydroxide (Milk Of Magnesia) 30 ml PO Q72HR PRN PRN Reason: Constipation Stop: 10/19/17 11:44 Mirtazapine (Remeron) 15 mg GT HS [facility] PRN Reason: Protocol Stop: 10/19/17 20:59 Last Admin: 08/28/17 20:42 Dose: 15 mg Miscellaneous (Probiotic Screen) 1 ea MC PRN PRN PRN Reason: PROTOCOL Stop: 10/22/17 10:29 Miscellaneous (Vancomycin Iv Per Pharmacy) 1 ea MC PRN [facility] Stop: 10/23/17 16:59 Multivitamins/Vitamin C (Theragran) 1 tab PO DAILY [facility] Stop: 10/20/17 08:59 Last Admin: 08/29/17 08:54 Dose: 1 tab Ondansetron HCl (Zofran) 4 mg IV Q6H PRN PRN Reason: Nausea / Vomiting Stop: 10/19/17 11:40 Pantoprazole Sodium (Protonix) 40 mg IVP BID [facility] Stop: 10/28/17 16:59 Simethicone (Mylicon) 80 mg GT Q6HR PRN PRN Reason: Gas Stop: 10/19/17 11:59 Sodium Phosphate (Fleet Enema) 135 ml RC PRN PRN PRN Reason: If MOM/Dulcolax ineffective Stop: 10/19/17 11:29 Zinc Sulfate (Zinc Sulfate) 220 mg PO DAILY [facility] Stop: 10/20/17 08:59 Last Admin: 08/29/17 08:54 Dose: 220 mg General: Alert, No acute distress (scattered rhonchi) HEENT: Atraumatic, EOMI Neck: Supple, +2 carotid pulse wo bruit Cardiovascular: Regular rate, Normal S1, Normal S2 Lungs: Other (coarse rhonchi) Abdomen: Bowel sounds, Soft, Other (INTACT GT), no Distended, no Rebound, no Guarding Extremities: Edema (upper wxtrmities), Other (upper ext) Neurological: Sensation intact Skin: no Rash Psych/Mental Status: Mood NL - Procedures Procedures: Procedures Procedure Code Date BLOOD TRANSFUSION SERVICE 84632 08/02/17 EXCISION OF STOMACH, ENDO, DIAGN [id number] 07/10/17 INSPECTION OF LOWER INTESTINAL TRACT, ENDO [id number] 07/10/17 PERFORMANCE OF URINARY FILTRATION, <6 HRS/DAY [id number] 07/10/17 RESPIRATORY VENTILATION, GREATER THAN 96 CONSECUTIVE HOURS [id number] 08/02/17 TRANSFUSE NONAUT RED BLOOD CELLS IN PERIPH VEIN, PERC 66214M3 08/02/17 Assessment/Plan - Assessment Assessment: 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/L UE Edema, Cellulitis Shock Sepsis RF on Vent Acute on Chronic Decomp CHF G (-) Septicemia A. fib to V. tach Severe acute anemia 2/2 GI bleed? - Plan Plan: Lab - Result Diagrams 08/04/17 06:30 08/04/17 06:30 Current Medications Acetaminophen (Tylenol 650mg/20.3ml Suspension) 650 mg GT DAILY [facility] Stop: 10/03/17 08:59 Last Admin: 08/04/17 09:18 Dose: 650 mg Albuterol/Ipratropium (Duoneb Neb) 3 ml HHN Q4HRT [facility] Stop: 10/02/17 10:59 Last Admin: 08/04/17 11:25 Dose: 3 ml Ascorbic Acid (Vitamin C) 500 mg PO DAILY [facility] Stop: 10/03/17 08:59 Last Admin: 08/04/17 09:18 Dose: 500 mg Aspirin (Aspirin Chewable) 81 mg GT DAILY [facility] Stop: 10/03/17 08:59 Last Admin: 08/04/17 09:18 Dose: 81 mg Atorvastatin Calcium (Lipitor) 40 mg GT HS [facility] PRN Reason: Protocol Stop: 10/02/17 20:59 Last Admin: 08/03/17 20:19 Dose: 40 mg Bisacodyl (Dulcolax 10 Mg Supp) 10 mg RC Q72HR PRN PRN Reason: IF MOM INEFFECTIVE Stop: 10/02/17 14:13 Bisacodyl (Dulcolax 10 Mg Supp) 10 mg RC PRN PRN PRN Reason: IF MOM INEFFECTIVE Stop: 10/02/17 14:13 Chlorhexidine Gluconate (Peridex) 15 ml MM 0800,2000 [facility] Stop: 10/02/17 07:59 Last Admin: 08/04/17 08:00 Dose: 15 ml Cholecalciferol (Vitamin D3) 1,000 iu GT DAILY [facility] Stop: 10/03/17 08:59 Last Admin: 08/04/17 09:18 Dose: 1,000 iu Diltiazem HCl (Cardizem) 5 mg IVP Q4H PRN PRN Reason: INCREASE HEART RATE Stop: 10/01/17 21:59 Last Admin: 08/03/17 01:38 Dose: 5 mg Docusate Sodium (Colace) 100 mg PO DAILY [facility] Stop: 10/03/17 08:59 Last Admin: 08/04/17 09:18 Dose: 100 mg Heparin Sodium (Porcine) (Heparin) 5,000 units HD UD [facility] Stop: 08/05/17 08:59 Last Admin: 08/04/17 09:19 Dose: Not Given Fluconazole (Diflucan) 200 mg in 100 mls @ 100 mls/hr IV Q24HR [facility] Stop: 10/02/17 14:59 Last Infusion: 08/03/17 15:40 Dose: Infused Meropenem 500 mg/ Sodium (Chloride) 100 mls @ 100 mls/hr IV Q24H [facility] Stop: 10/02/17 12:59 Last Admin: 08/04/17 13:17 Dose: 100 mls/hr Dopamine HCl/Dextrose (Dopamine) 400 mg in 250 mls @ 0 mls/hr IV TITR PRN; Protocol; Per Protocol PRN Reason: BP MAINTENANCE (PER PROTOCOL) Stop: 10/02/17 07:47 Norepinephrine Bitartrate 4 mg (/ Dextrose) 254 mls @ 0 mls/hr IV TITR PRN; Protocol; Per Protocol PRN Reason: BP MAINTENANCE (PER PROTOCOL) Stop: 10/02/17 08:31 Last Admin: 08/03/17 23:47 Dose: 4 mcg/min, 15.24 mls/hr Colistimethate Sodium 80 mg/ (Sodium Chloride) 100 mls @ 100 mls/hr IV Q36H [facility] Stop: 10/02/17 20:59 Last Infusion: 08/03/17 21:20 Dose: Infused Insulin Aspart (Novolog Insulin Sliding Scale) 0 units SUBQ Q6HR [facility] PRN Reason: Protocol Stop: 10/02/17 00:00 Last Admin: 08/04/17 11:30 Dose: 6 units Lorazepam (Ativan) 1 mg IVP Q2HR PRN; Protocol PRN Reason: Restlessness Stop: 10/01/17 21:18 Last Admin: 08/04/17 01:05 Dose: 1 mg Magnesium Hydroxide (Milk Of Magnesia) 30 ml GT Q72H PRN PRN Reason: NO BM FOR THREE DAYS Stop: 10/02/17 14:13 Mirtazapine (Remeron) 15 mg GT HS [facility] PRN Reason: Protocol Stop: 10/02/17 20:59 Last Admin: 08/03/17 20:19 Dose: 15 mg Miscellaneous (Vancomycin Iv Per Pharmacy) 1 ea PRN PRN PRN Reason: PROTOCOL Stop: 10/01/17 20:42 Miscellaneous (Zosyn Iv Per Pharmacy) 1 ea PRN PRN PRN Reason: PROTOCOL Stop: 10/01/17 20:42 Multivitamins/Vitamin C (Theragran) 1 tab PO DAILY [facility] Stop: 10/03/17 08:59 Last Admin: 08/04/17 09:18 Dose: 1 tab Ondansetron HCl (Zofran Odt) 4 mg PO Q6HR PRN PRN Reason: Nausea / Vomiting Stop: 10/02/17 14:13 Pantoprazole Sodium (Protonix) 40 mg IVP DAILY [facility] Stop: 10/02/17 08:59 Last Admin: 08/04/17 09:18 Dose: 40 mg Simethicone (Mylicon) 80 mg GT Q6H PRN PRN Reason: GAS PAIN Stop: 10/02/17 14:13 Sodium Phosphate (Fleet Enema) 118 ml RC PRN PRN PRN Reason: IF MOM/DULCOLAX INEFFECTIVE Stop: 10/02/17 14:13 Temazepam (Restoril) 15 mg GT HS PRN; Protocol PRN Reason: Insomnia Stop: 10/02/17 14:13 Last Admin: 08/03/17 20:19 Dose: 15 mg Zinc Sulfate (Zinc Sulfate) 220 mg GT DAILY [facility] Stop: 10/03/17 08:59 Last Admin: 08/04/17 09:18 Dose: 220 Lab - Result Diagrams 08/29/17 04:20 08/29/17 04:20 pt. scheduled for dialysis in am CXR still showed persistent b/l effusions, CHF, left > right replace K f/u electrolytes. cbc Reccurence of shock, on levo 6 mcg, Amiodarone po BS low, monitor closely, hold Levemir, continue S/S wbc up to 15.2 if left AVF clotted request placement of sandor cath bleed scan neg Nutritional Asmnt/Malnutr-PDOC - Dietary Evaluation Malnutrition Findings (Please click <Entered> for more info): Nutritional Asmnt/Malnutrition Start: 08/05/17 15: 53 Text: Status: Complete Freq: Document 08/05/17 15:53 LCNAVING (Rec: 08/05/17 16:19 LCMAX [id number]) Nutritional Asmnt/Malnutrition Patient General Information Nutritional Screening High Risk Diagnosis sepsis, respiratory failure, ESRD Pertinent Medical Hx/Surgical Hx ESRD on HD, respiratory failure with tracheostomy, dysphagia, a fib, anemia, HTN, GERD Subjective Information Pt on vent, not able to interview. Pt was on TF Novosource Renal 30ml/hr continuous, NPO today for surgery. Pt has dialysis ordred per nurse note. Current Diet Order/ Nutrition Support NPO on 08/05 Pertinent Medications vit C, vit D3, colace, novolog , remeron, theragran, protonix , zinc Pertinent Labs 08/05 Na 134, K 3.6, Cl 102, BUN 77, Cr 4.2, Glucose 216, POC 224-233 08/02 A1c 7.7 Nutritional Hx/Data Height 1.6 m Height (Calculated Centimeters) 160.0 Current Weight (lbs) 87.543 kg Weight (Calculated Kilograms) 87.5 Weight (Calculated Grams) 46300.3 [place] Body Weight 115 Body Mass Index (BMI) 34.2 Weight Status Obese GI Symptoms GI Symptoms None Last BM 08/04 Difficult in: None Skin Integrity/Comment: reddened to left/right inner thigh, right lateral index finger, right/left arm; skin tear to left abdominal fold; pressure area to coccy/sacral Estimated Nutritional Goals BEE in Kcals: Adj wt of IBW Calories/Kcals/Kg 30-35 adj wt 61kg Kcals Calculated 1152-5739 Protein: Adj wt of IBW Protein g/k.2-1.4 Protein Calculated 73-85 Fluid: ml 1830-2135ml (1ml/kcal) Nutritional Problem 1. Problem Problem altered nutrition related lab values Etiology hx of ESRD, endocrine dysfunction Signs/Symptoms: BUN 77, Cr 4.2, Glucose 216, POC 224-233, A1c 7.7 Malnutrition Alert Protein-Calorie Malnutrition N/A Is there a minimum of two criteria No selected? Query Text:Check all the applicable criteria. A minimum of two criteria are recommended for diagnosis of either severe or non-severe malnutrition. Intervention/Recommendation Comments 1. Resume TF Novosource Renal 30ml/hr continuous as ordered. increase to goal rate of 40ml /hr continuous as tolerated. This will provide 1920kcal, 87g protein and 688ml free water, meeting 100% of nutritional needs 2. Monitor TF rate, tolerance, wt weekly, skin integrity and labs 3. F/U as high risk in 2-3 days, 08/07-3 Expected Outcomes/Goals Expected Outcomes/Goals 1. Pt to meet at least 75% of nutritional needs via nutrition support with tolerance 2. Wt stability, skin to remain intact, labs to approach WNL.
[2017-08-29] MEDS: Dextrose 5% 1,000 ML IV SCH (20:55)
[2017-08-29] MEDS: Insulin Detemir 100 units/mL 10mL Vial SUBQ SCH ×2 (21:03)
[2017-08-30] MEDS: INSULIN ASPART SLIDING SCALE 100 UNITS/ML UNIT SUBQ SCH ×4 (00:13→18:17)
[2017-08-30] MEDS: Albuterol/Ipratropium Neb 3 ML AERS HHN SCH ×6 (03:10→22:58)
[2017-08-30 05:12] LABS: % BASOPHILS 0.6 % (0.0-2.0); % EOSINOPHILS 2.6 % (0.0-5.0); % LYMPHOCYTES 5.8 % (20.0-50.0); % MONOCYTES 11.6 % (2.0-10.0); % NEUTROPHILS 79.4 % (40.0-80.0); BASOPHILE ABSOLUTE 0.1 Th/cumm (0-0.2); EOSINOPHILE ABSOLUTE 0.3 Th/cmm (0.1-0.4); HEMATOCRIT 28.4 % (41.0-60); HEMOGLOBIN 11.6 gm/dL (12-16); LYMPHOCYTE ABSOLUTE 0.6 Th/cmm (1.5-3.0); MEAN CELL VOLUME 98.9 fl (81-100); MEAN CORPUSCULAR HEMOGLOBIN 40.3 pg (27.0-31.0); MEAN CORPUSCULAR HGB CONC 40.7 pg (28.0-36.0); MEAN PLATELET VOLUME 10.4 fl; MONOCYTE ABSOLUTE 1.2 Th/cmm (0.3-1.0); NEUTROPHILE ABSOLUTE 8.1 Th/cmm (1.8-8.0); PLATELET COUNT 117 Th/cmm (150-400); RED BLOOD COUNT 2.87 Mil/cmm (3.80-5.20); RED CELL DISTRIBUTION WIDTH 15.4 % (11.5-20.0); WHITE BLOOD COUNT 10.3 Th/cmm (4.8-10.8)
[2017-08-30 05:17] LABS: ANION GAP 10.1 (7.0-16.0); BUN - UREA NITROGEN 6 mg/dL (7-25); CALCIUM SERUM 8.7 mg/dL (8.6-10.3); CARBON DIOXIDE 25.5 mEq/L (21.0-31.0); CHLORIDE 106 mEq/L (98-107); GLUCOSE 105 mg/dL (70-105); POTASSIUM SERUM 3.6 mEq/L (3.5-5.1); SODIUM SERUM 138 mEq/L (136-145)
[2017-08-30] MEDS: Aspirin 81mg Chewable Tab PO SCH (08:13)
[2017-08-30] MEDS: Lactobacillus Rhamnosus GG 15 Billion CFU CAP.SPRINK PO SCH (08:14)
[2017-08-30] MEDS: Chlorhexidine Gluconate 0.12% 15mL Mouthwash MM SCH ×2 (08:14→20:09)
[2017-08-30] MEDS: Multivitamin Tab PO SCH (08:14)
--- NOTE | 2017-08-30 09:04 | GI Progress Note ---
Subjective - Review of Systems Service Date: 08/30/17 Subjective: GI NOTE GT clogged this AM - I was able to unclog it this AM with water flushes. Tolerating tube feeds otherwise. Stools greenish. Objective - Results Result Diagrams: 08/30/17 04:30 08/30/17 04:30 Recent Labs: Laboratory Last Values WBC 10.3 Th/cmm (4.8-10.8) 08/30/17 04:30 Corrected WBC (auto) 13.2 Th/cmm (4.8-10.8) H 08/28/17 06:30 RBC 2.87 Mil/cmm (3.80-5.20) L 08/30/17 04:30 Hgb 11.6 gm/dL (12-16) L 08/30/17 04:30 Hct 28.4 % (41.0-60) L 08/30/17 04:30 MCV 98.9 fl (81-100) 08/30/17 04:30 MCH 40.3 pg (27.0-31.0) H 08/30/17 04:30 MCHC Differential 40.7 pg (28.0-36.0) H 08/30/17 04:30 RDW 15.4 % (11.5-20.0) 08/30/17 04:30 Plt Count 117 Th/cmm (150-400) L 08/30/17 04:30 MPV 10.4 fl 08/30/17 04:30 Neutrophils % 79.4 % (40.0-80.0) 08/30/17 04:30 Band Neutrophils % 4 % (0-10) 08/29/17 04:20 Lymphocytes % 5.8 % (20.0-50.0) L 08/30/17 04:30 Monocytes % 11.6 % (2.0-10.0) H 08/30/17 04:30 Eosinophils % 2.6 % (0.0-5.0) 08/30/17 04:30 Basophils % 0.6 % (0.0-2.0) 08/30/17 04:30 Neutrophils (Manual) 68 % (40-80) 08/29/17 04:20 Lymphocytes 14 % (20-50) L 08/29/17 04:20 Monocytes 7 % (2-10) 08/29/17 04:20 Eosinophils 7 % (0-5) H 08/29/17 04:20 Basophils 1 % (0-3) 08/28/17 06:30 Nucleated RBCs 1.0 % (0-0) H 08/29/17 04:20 Hypochromia 1+ 08/02/17 15:37 Platelet Estimate ADEQUATE (NORMAL) 08/28/17 06:30 Platelet Morphology NORMAL (NORMAL) 08/20/17 04:45 Anisocytosis 1+ 08/28/17 06:30 Crenated Cell 2+ 08/02/17 15:37 RBC Morph Micro Appear ABNORMAL (NORMAL) 08/02/17 15:37 PT 11.6 SECONDS (9.5-11.5) H 08/25/17 21:06 INR 1.11 (0.5-1.4) 08/25/17 21:06 PTT (Actin FS) 32.3 SECONDS (26.0-38.0) 08/25/17 21:06 Specimen Source Arterial 08/03/17 08:58 Sample Site Right Radial 08/03/17 08:58 pH 7.42 (7.35-7.45) 08/03/17 08:58 pCO2 37.0 mmHg (35.0-45.0) 08/03/17 08:58 pO2 204.0 mmHg (80.0-100.0) H 08/03/17 08:58 HCO3 24.8 mEq/L (20.0-26.0) 08/03/17 08:58 Base Excess -0.2 mEq/L (-3.0-3.0) 08/03/17 08:58 O2 Saturation 100.0 % (92.0-100.0) 08/03/17 08:58 Rhett Test Positive 08/03/17 08:58 Vent Rate 12 08/03/17 08:58 Inspired O2 60 08/03/17 08:58 Tidal Volume 450 08/03/17 08:58 PEEP 5 08/03/17 08:58 Pressure (ins/psv/peep) NA 08/03/17 08:58 Critical Value LZHANG 08/03/17 08:58 Sodium 138 mEq/L (136-145) 08/30/17 04:30 Potassium 3.6 mEq/L (3.5-5.1) 08/30/17 04:30 Chloride 106 mEq/L (98-107) 08/30/17 04:30 Carbon Dioxide 25.5 mEq/L (21.0-31.0) 08/30/17 04:30 Anion Gap 10.1 (7.0-16.0) 08/30/17 04:30 BUN 6 mg/dL (7-25) L 08/30/17 04:30 Creatinine 1.0 mg/dL (0.6-1.2) 08/30/17 04:30 Est GFR ( Amer) TNP 08/30/17 04:30 Est GFR (Non-Af Amer) TNP 08/30/17 04:30 BUN/Creatinine Ratio 6.0 08/30/17 04:30 Glucose 105 mg/dL (70-105) 08/30/17 04:30 POC Glucose 183 MG/DL (70 - 105) H 08/29/17 18:00 Hemoglobin A1c % 7.7 % (4.0-6.0) H 08/02/17 15:37 Whole Bld Lactic Acid 1.97 mmol/L (0.60-1.99) 08/02/17 13:49 Calcium 8.7 mg/dL (8.6-10.3) 08/30/17 04:30 Magnesium 1.8 mg/dL (1.9-2.7) L 08/28/17 04:20 Iron 10 ug/dL (27-139) L 08/02/17 13:56 TIBC 135 ug/dL (250-450) L 08/02/17 13:56 Iron Saturation 7 % (15-55) L 08/02/17 13:56 Unsaturated IBC 125 ug/dL (118-369) 08/02/17 13:56 Ferritin 588 ng/mL (15-150) H 08/02/17 13:56 Total Bilirubin 0.4 mg/dL (0.3-1.0) 08/26/17 06:05 Direct Bilirubin 0.09 mg/dL (0.0-0.2) 08/02/17 13:57 AST 34 U/L (13-39) 08/26/17 06:05 ALT 14 U/L (7-52) 08/26/17 06:05 Alkaline Phosphatase 70 U/L (34-104) 08/26/17 06:05 Troponin I 0.10 ng/mL (0.01-0.05) H* D 08/20/17 17:00 B-Natriuretic Peptide 839.0 pg/mL (5.0-100.0) H 08/19/17 04:58 Total Protein 6.3 gm/dL (6.0-8.3) 08/26/17 06:05 Albumin 2.7 gm/dL (3.7-5.3) L 08/26/17 06:05 Globulin 3.6 gm/dL 08/26/17 06:05 Albumin/Globulin Ratio 0.8 (1.0-1.8) L 08/26/17 06:05 Triglycerides 132 mg/dL (<150) 08/04/17 06:30 Cholesterol 55 mg/dL (<200) 08/04/17 06:30 LDL Cholesterol Direct 16 mg/dL (75-193) L 08/04/17 06:30 HDL Cholesterol 13 mg/dL (23-92) L 08/04/17 06:30 Amylase 12 U/L (29-103) L 08/02/17 13:43 Lipase 4 U/L (11-82) L 08/02/17 13:43 TSH 3.74 uIU/ml (0.34-5.60) 08/04/17 06:30 Stool Occult Blood POSITIVE (NEGATIVE) H 08/03/17 17:50 Random Vancomycin 15.4 ug/mL (5.0-40.0) 08/30/17 04:30 Hepatitis A IgM Ab Negative (Negative) 08/08/17 08:15 Hep Bs Antigen Negative (Negative) 08/08/17 08:15 Hep B Core IgM Ab Negative (Negative) 08/08/17 08:15 Hepatitis C Antibody <0.1 s/co ratio (0.0-0.9) 08/08/17 08:15 Blood Type A POSITIVE 08/26/17 23:45 Rho(D) Type Cancelled 08/26/17 23:46 Antibody Screen POSITIVE 08/26/17 23:45 Antibody Identification Anti-K 08/24/17 08:30 NEVILLE, IgG Interpret NEGATIVE 08/15/17 07:50 Crossmatch See Detail 08/26/17 23:46 Crossmatch (AHG) Cancelled 08/26/17 23:46 Donor Unit # Cancelled 08/26/17 23:46 BBK History Checked Cancelled 08/26/17 23:46 - Physical Exam Vitals and I&O: Vital Signs Temp 97.4 F 08/30/17 04:00 Pulse 73 08/30/17 07:45 Resp 21 08/30/17 06:00 BP 112/37 08/30/17 06:45 Pulse Ox 100 08/30/17 07:45 Intake & Output 08/29/17 08/30/17 08/30/17 18:59 06:59 18:59 Intake Total 418.6 205.530 Output Total 2400 Balance -1981.4 205.530 Weight (lbs) 107.955 kg 107.955 kg Intake: Intake, IV Amount 148.6 175.530 Norepinephrine 8 mg In 98.6 75.53 Sodium Chloride 0.9% 250 ml @ 18 MCG/MIN 34.83 mls /hr IV TITR PRN Rx#: [id number] Piperacillin Sodium/ 50 100.000 Tazobact 2.25 gm In Sodium Chloride 0.9% 50 ml @ 100 mls/hr IV Q8HR [facility] Rx#:[id number] Tube Feeding 150 30 Other 120 Output: Urine 0 Hemodialysis 2400 Other: # Bowel Movements 1 Stool Characteristics Liquid Liquid Brown Green Weight Source Bedscale Bedscale Active Medications: Current Medications Acetaminophen (Tylenol) 650 mg GT DAILY [facility] Stop: 10/20/17 08:59 Last Admin: 08/30/17 08:13 Dose: 650 mg Albuterol/Ipratropium (Duoneb Neb) 3 ml HHN Q4HRT [facility] Stop: 10/19/17 10:59 Last Admin: 08/30/17 07:40 Dose: 3 ml Amiodarone HCl (Cordarone) 200 mg GT Q12H FOUZIA Stop: 10/20/17 10:59 Last Admin: 08/29/17 23:18 Dose: Not Given Ascorbic Acid (Vitamin C) 500 mg PO DAILY [facility] Stop: 10/20/17 08:59 Last Admin: 08/30/17 08:13 Dose: 500 mg Aspirin (Aspirin Chewable) 81 mg PO DAILY [facility] Stop: 10/20/17 08:59 Last Admin: 08/30/17 08:13 Dose: 81 mg Atorvastatin Calcium (Lipitor) 40 mg GT DAILY FOUZIA PRN Reason: Protocol Stop: 10/20/17 08:59 Last Admin: 08/30/17 08:13 Dose: 40 mg Bisacodyl (Dulcolax 10 Mg Supp) 10 mg RC Q72HR PRN PRN Reason: if MOM ineffective Stop: 10/19/17 11:29 Chlorhexidine Gluconate (Peridex) 15 ml MM 0800,2000 [facility] Stop: 10/19/17 19:59 Last Admin: 08/30/17 08:14 Dose: 15 ml Cholecalciferol (Vitamin D3) 1,000 iu PO DAILY [facility] Stop: 10/20/17 08:59 Last Admin: 08/30/17 08:14 Dose: 1,000 iu Diltiazem HCl (Cardizem) 20 mg IV Q4HR PRN PRN Reason: HR ABOVE 120 Stop: 09/13/17 11:59 Docusate Sodium (Colace) 100 mg PO DAILY [facility] Stop: 10/20/17 08:59 Last Admin: 08/30/17 08:14 Dose: 100 mg Dopamine HCl/Dextrose (Dopamine) 400 mg in 250 mls @ 0 mls/hr IV TITR PRN; Protocol; 0 MCG/KG/MIN PRN Reason: BP MAINTENANCE (PER PROTOCOL) Stop: 10/19/17 11:28 Norepinephrine Bitartrate 8 mg (/ Sodium Chloride) 258 mls @ 34.83 mls/hr IV TITR PRN; Protocol; 18 MCG/MIN PRN Reason: BP MAINTENANCE (PER PROTOCOL) Stop: 10/19/17 11:09 Last Admin: 08/30/17 05:31 Dose: 6 mcg/min, 11.61 mls/hr Piperacillin Sod/Tazobactam (Sod 2.25 gm/ Sodium Chloride) 50 mls @ 100 mls/hr IV Q8HR [facility] Stop: 10/23/17 20:59 Last Infusion: 08/30/17 06:00 Dose: Infused Phenylephrine HCl 10 mg/ (Sodium Chloride) 250 mls @ 0 mls/hr IV TITR FOUZIA; Per Protocol PRN Reason: Protocol Stop: 10/24/17 10:29 Dextrose (D5w) 1,000 mls @ 20 mls/hr IV .Q24H [facility] Stop: 10/28/17 18:43 Last Admin: 08/29/17 20:55 Dose: 20 mls/hr Vancomycin HCl 1 gm/ Dextrose 250 mls @ 165 mls/hr IV 0900 [facility] Stop: 08/30/17 13:00 Insulin Aspart (Novolog Insulin Sliding Scale) 0 units SUBQ Q6HR FOUZIA PRN Reason: Protocol Stop: 10/19/17 11:59 Last Admin: 08/30/17 05:28 Dose: Not Given Insulin Detemir (Levemir Insulin) 16 units SUBQ HS [facility] PRN Reason: Protocol Stop: 10/19/17 20:59 Last Admin: 08/29/17 21:03 Dose: 16 units Lactobacillus Rhamnosus (Culturelle 15b) 1 each PO DAILY [facility] Stop: 10/20/17 08:59 Last Admin: 08/30/17 08:14 Dose: 1 each Lorazepam (Ativan) 2 mg IVP Q4HR PRN; Protocol PRN Reason: Agitation Stop: 10/15/17 11:49 Last Admin: 08/30/17 08:13 Dose: 2 mg Magnesium Hydroxide (Milk Of Magnesia) 30 ml PO Q72HR PRN PRN Reason: Constipation Stop: 10/19/17 11:44 Midodrine (Proamatine) 10 mg PO BID [facility] Stop: 10/28/17 16:59 Last Admin: 08/30/17 08:14 Dose: 10 mg Mirtazapine (Remeron) 15 mg GT HS [facility] PRN Reason: Protocol Stop: 10/19/17 20:59 Last Admin: 08/29/17 21:01 Dose: 15 mg Miscellaneous (Probiotic Screen) 1 ea MC PRN PRN PRN Reason: PROTOCOL Stop: 10/22/17 10:29 Miscellaneous (Vancomycin Iv Per Pharmacy) 1 ea MC PRN [facility] Stop: 10/23/17 16:59 Multivitamins/Vitamin C (Theragran) 1 tab PO DAILY [facility] Stop: 10/20/17 08:59 Last Admin: 08/30/17 08:14 Dose: 1 tab Ondansetron HCl (Zofran) 4 mg IV Q6H PRN PRN Reason: Nausea / Vomiting Stop: 10/19/17 11:40 Pantoprazole Sodium (Protonix) 40 mg IVP BID [facility] Stop: 10/28/17 16:59 Last Admin: 08/30/17 08:13 Dose: 40 mg Simethicone (Mylicon) 80 mg GT Q6HR PRN PRN Reason: Gas Stop: 10/19/17 11:59 Sodium Phosphate (Fleet Enema) 135 ml RC PRN PRN PRN Reason: If MOM/Dulcolax ineffective Stop: 10/19/17 11:29 Zinc Sulfate (Zinc Sulfate) 220 mg PO DAILY FOUZIA Stop: 10/20/17 08:59 Last Admin: 08/30/17 08:13 Dose: 220 mg General: No acute distress (scattered rhonchi) HEENT: Atraumatic Neck: Supple Cardiovascular: Regular rate Lungs: Clear to auscultation Abdomen: Bowel sounds, Soft, Other (INTACT GT), no Distended, no Rebound, no Guarding Skin: no Rash - Procedures Procedures: Procedures Procedure Code Date BLOOD TRANSFUSION SERVICE 47196 08/02/17 EXCISION OF STOMACH, ENDO, DIAGN [id number] 07/10/17 INSPECTION OF LOWER INTESTINAL TRACT, ENDO [id number] 07/10/17 PERFORMANCE OF URINARY FILTRATION, <6 HRS/DAY [id number] 07/10/17 RESPIRATORY VENTILATION, GREATER THAN 96 CONSECUTIVE HOURS [id number] 08/02/17 TRANSFUSE NONAUT RED BLOOD CELLS IN PERIPH VEIN, PERC [id number] 08/02/17 Assessment/Plan - Assessment Assessment: Assessment: # Sepsis # Dysphagia with G tube # GI bleed # Anemia EGD and colonoscopy performed in 07/2017 revealed gastritis and hemorrhoids. SBFT showed delayed transit but no lesion. At that time, it was recommended that the pt have a bleeding scan if she rebled. Now, she is again showed signs of GI bleed on 08/25-, more lower than upper, although brisk upper cannot be ruled out. Bleeding scan on 08/27 did not show active bleed, and her stool has become brown. She may have bled from small bowel source, or from her known hemorrhoids. She was able to get dialysis on 08/27, and I suspect this has helped. Will hold off on further endoscopy given her high risk and previous negative examination unless she rebleeds. Hgb has remained stable. Plan: - hold off on EGD/colo as above, reserve for hemostasis - Switch PPI to bid dosing - CBC cycle throughout the day, transfuse to keep hgb > 7 - cont with HD - tube feeds as tolerated; add water flushes to maintain GT patency.
--- NOTE | 2017-08-30 10:46 | General Progress Note ---
Subjective - Review of Systems Events since last encounter: in no distress Tolerating tube feeding Subjective: still on levophed Objective - Results Result Diagrams: 08/30/17 04:30 08/30/17 04:30 Recent Labs: Laboratory Last Values WBC 10.3 Th/cmm (4.8-10.8) 08/30/17 04:30 Corrected WBC (auto) 13.2 Th/cmm (4.8-10.8) H 08/28/17 06:30 RBC 2.87 Mil/cmm (3.80-5.20) L 08/30/17 04:30 Hgb 11.6 gm/dL (12-16) L 08/30/17 04:30 Hct 28.4 % (41.0-60) L 08/30/17 04:30 MCV 98.9 fl (81-100) 08/30/17 04:30 MCH 40.3 pg (27.0-31.0) H 08/30/17 04:30 MCHC Differential 40.7 pg (28.0-36.0) H 08/30/17 04:30 RDW 15.4 % (11.5-20.0) 08/30/17 04:30 Plt Count 117 Th/cmm (150-400) L 08/30/17 04:30 MPV 10.4 fl 08/30/17 04:30 Neutrophils % 79.4 % (40.0-80.0) 08/30/17 04:30 Band Neutrophils % 4 % (0-10) 08/29/17 04:20 Lymphocytes % 5.8 % (20.0-50.0) L 08/30/17 04:30 Monocytes % 11.6 % (2.0-10.0) H 08/30/17 04:30 Eosinophils % 2.6 % (0.0-5.0) 08/30/17 04:30 Basophils % 0.6 % (0.0-2.0) 08/30/17 04:30 Neutrophils (Manual) 68 % (40-80) 08/29/17 04:20 Lymphocytes 14 % (20-50) L 08/29/17 04:20 Monocytes 7 % (2-10) 08/29/17 04:20 Eosinophils 7 % (0-5) H 08/29/17 04:20 Basophils 1 % (0-3) 08/28/17 06:30 Nucleated RBCs 1.0 % (0-0) H 08/29/17 04:20 Hypochromia 1+ 08/02/17 15:37 Platelet Estimate ADEQUATE (NORMAL) 08/28/17 06:30 Platelet Morphology NORMAL (NORMAL) 08/20/17 04:45 Anisocytosis 1+ 08/28/17 06:30 Crenated Cell 2+ 08/02/17 15:37 RBC Morph Micro Appear ABNORMAL (NORMAL) 08/02/17 15:37 PT 11.6 SECONDS (9.5-11.5) H 08/25/17 21:06 INR 1.11 (0.5-1.4) 08/25/17 21:06 PTT (Actin FS) 32.3 SECONDS (26.0-38.0) 08/25/17 21:06 Specimen Source Arterial 08/03/17 08:58 Sample Site Right Radial 08/03/17 08:58 pH 7.42 (7.35-7.45) 08/03/17 08:58 pCO2 37.0 mmHg (35.0-45.0) 08/03/17 08:58 pO2 204.0 mmHg (80.0-100.0) H 08/03/17 08:58 HCO3 24.8 mEq/L (20.0-26.0) 08/03/17 08:58 Base Excess -0.2 mEq/L (-3.0-3.0) 08/03/17 08:58 O2 Saturation 100.0 % (92.0-100.0) 08/03/17 08:58 Rhett Test Positive 08/03/17 08:58 Vent Rate 12 08/03/17 08:58 Inspired O2 60 08/03/17 08:58 Tidal Volume 450 08/03/17 08:58 PEEP 5 08/03/17 08:58 Pressure (ins/psv/peep) NA 08/03/17 08:58 Critical Value LZHANG 08/03/17 08:58 Sodium 138 mEq/L (136-145) 08/30/17 04:30 Potassium 3.6 mEq/L (3.5-5.1) 08/30/17 04:30 Chloride 106 mEq/L (98-107) 08/30/17 04:30 Carbon Dioxide 25.5 mEq/L (21.0-31.0) 08/30/17 04:30 Anion Gap 10.1 (7.0-16.0) 08/30/17 04:30 BUN 6 mg/dL (7-25) L 08/30/17 04:30 Creatinine 1.0 mg/dL (0.6-1.2) 08/30/17 04:30 Est GFR ( Amer) TNP 08/30/17 04:30 Est GFR (Non-Af Amer) TNP 08/30/17 04:30 BUN/Creatinine Ratio 6.0 08/30/17 04:30 Glucose 105 mg/dL (70-105) 08/30/17 04:30 POC Glucose 183 MG/DL (70 - 105) H 08/29/17 18:00 Hemoglobin A1c % 7.7 % (4.0-6.0) H 08/02/17 15:37 Whole Bld Lactic Acid 1.97 mmol/L (0.60-1.99) 08/02/17 13:49 Calcium 8.7 mg/dL (8.6-10.3) 08/30/17 04:30 Magnesium 1.8 mg/dL (1.9-2.7) L 08/28/17 04:20 Iron 10 ug/dL (27-139) L 08/02/17 13:56 TIBC 135 ug/dL (250-450) L 08/02/17 13:56 Iron Saturation 7 % (15-55) L 08/02/17 13:56 Unsaturated IBC 125 ug/dL (118-369) 08/02/17 13:56 Ferritin 588 ng/mL (15-150) H 08/02/17 13:56 Total Bilirubin 0.4 mg/dL (0.3-1.0) 08/26/17 06:05 Direct Bilirubin 0.09 mg/dL (0.0-0.2) 08/02/17 13:57 AST 34 U/L (13-39) 08/26/17 06:05 ALT 14 U/L (7-52) 08/26/17 06:05 Alkaline Phosphatase 70 U/L (34-104) 08/26/17 06:05 Troponin I 0.10 ng/mL (0.01-0.05) H* D 08/20/17 17:00 B-Natriuretic Peptide 839.0 pg/mL (5.0-100.0) H 08/19/17 04:58 Total Protein 6.3 gm/dL (6.0-8.3) 08/26/17 06:05 Albumin 2.7 gm/dL (3.7-5.3) L 08/26/17 06:05 Globulin 3.6 gm/dL 08/26/17 06:05 Albumin/Globulin Ratio 0.8 (1.0-1.8) L 08/26/17 06:05 Triglycerides 132 mg/dL (<150) 08/04/17 06:30 Cholesterol 55 mg/dL (<200) 08/04/17 06:30 LDL Cholesterol Direct 16 mg/dL (75-193) L 08/04/17 06:30 HDL Cholesterol 13 mg/dL (23-92) L 08/04/17 06:30 Amylase 12 U/L (29-103) L 08/02/17 13:43 Lipase 4 U/L (11-82) L 08/02/17 13:43 TSH 3.74 uIU/ml (0.34-5.60) 08/04/17 06:30 Stool Occult Blood POSITIVE (NEGATIVE) H 08/03/17 17:50 Random Vancomycin 15.4 ug/mL (5.0-40.0) 08/30/17 04:30 Hepatitis A IgM Ab Negative (Negative) 08/08/17 08:15 Hep Bs Antigen Negative (Negative) 08/08/17 08:15 Hep B Core IgM Ab Negative (Negative) 08/08/17 08:15 Hepatitis C Antibody <0.1 s/co ratio (0.0-0.9) 08/08/17 08:15 Blood Type A POSITIVE 08/26/17 23:45 Rho(D) Type Cancelled 08/26/17 23:46 Antibody Screen POSITIVE 08/26/17 23:45 Antibody Identification Anti-K 08/24/17 08:30 NEVILLE, IgG Interpret NEGATIVE 08/15/17 07:50 Crossmatch See Detail 08/26/17 23:46 Crossmatch (AHG) Cancelled 08/26/17 23:46 Donor Unit # Cancelled 08/26/17 23:46 BBK History Checked Cancelled 08/26/17 23:46 - Physical Exam Vitals and I&O: Vital Signs Temp 98.0 F 08/30/17 07:00 Pulse 62 08/30/17 10:30 Resp 15 08/30/17 10:00 BP 94/50 08/30/17 10:30 Pulse Ox 100 08/30/17 10:00 Intake & Output 08/29/17 08/30/17 08/30/17 18:59 06:59 18:59 Intake Total 418.6 205.530 43.344 Output Total 2400 Balance -1981.4 205.530 43.344 Weight (lbs) 107.955 kg 107.955 kg Intake: Intake, IV Amount 148.6 175.530 43.344 Norepinephrine 8 mg In 98.6 75.53 43.344 Sodium Chloride 0.9% 250 ml @ 18 MCG/MIN 34.83 mls /hr IV TITR PRN Rx#: [id number] Piperacillin Sodium/ 50 100.000 Tazobact 2.25 gm In Sodium Chloride 0.9% 50 ml @ 100 mls/hr IV Q8HR [facility] Rx#:[id number] Tube Feeding 150 30 Other 120 Output: Urine 0 Hemodialysis 2400 Other: # Bowel Movements 1 Stool Characteristics Liquid Liquid Liquid Brown Green Brown Weight Source Bedscale Bedscale Active Medications: Current Medications Acetaminophen (Tylenol) 650 mg GT DAILY [facility] Stop: 10/20/17 08:59 Last Admin: 08/30/17 08:13 Dose: 650 mg Albuterol/Ipratropium (Duoneb Neb) 3 ml HHN Q4HRT [facility] Stop: 10/19/17 10:59 Last Admin: 08/30/17 07:40 Dose: 3 ml Amiodarone HCl (Cordarone) 200 mg GT Q12H [facility] Stop: 10/20/17 10:59 Last Admin: 08/29/17 23:18 Dose: Not Given Ascorbic Acid (Vitamin C) 500 mg PO DAILY [facility] Stop: 10/20/17 08:59 Last Admin: 08/30/17 08:13 Dose: 500 mg Aspirin (Aspirin Chewable) 81 mg PO DAILY [facility] Stop: 10/20/17 08:59 Last Admin: 08/30/17 08:13 Dose: 81 mg Atorvastatin Calcium (Lipitor) 40 mg GT DAILY [facility] PRN Reason: Protocol Stop: 10/20/17 08:59 Last Admin: 08/30/17 08:13 Dose: 40 mg Bisacodyl (Dulcolax 10 Mg Supp) 10 mg RC Q72HR PRN PRN Reason: if MOM ineffective Stop: 10/19/17 11:29 Chlorhexidine Gluconate (Peridex) 15 ml MM 0800,2000 [facility] Stop: 10/19/17 19:59 Last Admin: 08/30/17 08:14 Dose: 15 ml Cholecalciferol (Vitamin D3) 1,000 iu PO DAILY [facility] Stop: 10/20/17 08:59 Last Admin: 08/30/17 08:14 Dose: 1,000 iu Diltiazem HCl (Cardizem) 20 mg IV Q4HR PRN PRN Reason: HR ABOVE 120 Stop: 09/13/17 11:59 Docusate Sodium (Colace) 100 mg PO DAILY [facility] Stop: 10/20/17 08:59 Last Admin: 08/30/17 08:14 Dose: 100 mg Dopamine HCl/Dextrose (Dopamine) 400 mg in 250 mls @ 0 mls/hr IV TITR PRN; Protocol; 0 MCG/KG/MIN PRN Reason: BP MAINTENANCE (PER PROTOCOL) Stop: 10/19/17 11:28 Norepinephrine Bitartrate 8 mg (/ Sodium Chloride) 258 mls @ 34.83 mls/hr IV TITR PRN; Protocol; 18 MCG/MIN PRN Reason: BP MAINTENANCE (PER PROTOCOL) Stop: 10/19/17 11:09 Last Titration: 08/30/17 09:15 Dose: 3 mcg/min, 5.8 mls/hr Piperacillin Sod/Tazobactam (Sod 2.25 gm/ Sodium Chloride) 50 mls @ 100 mls/hr IV Q8HR [facility] Stop: 10/23/17 20:59 Last Infusion: 08/30/17 06:00 Dose: Infused Phenylephrine HCl 10 mg/ (Sodium Chloride) 250 mls @ 0 mls/hr IV TITR [facility]; Per Protocol PRN Reason: Protocol Stop: 10/24/17 10:29 Dextrose (D5w) 1,000 mls @ 20 mls/hr IV .Q24H [facility] Stop: 10/28/17 18:43 Last Admin: 08/29/17 20:55 Dose: 20 mls/hr Vancomycin HCl 1 gm/ Dextrose 250 mls @ 165 mls/hr IV 0900 [facility] Stop: 08/30/17 13:00 Last Admin: 08/30/17 09:25 Dose: 165 mls/hr Insulin Aspart (Novolog Insulin Sliding Scale) 0 units SUBQ Q6HR [facility] PRN Reason: Protocol Stop: 10/19/17 11:59 Last Admin: 08/30/17 05:28 Dose: Not Given Insulin Detemir (Levemir Insulin) 16 units SUBQ HS [facility] PRN Reason: Protocol Stop: 10/19/17 20:59 Last Admin: 08/29/17 21:03 Dose: 16 units Lactobacillus Rhamnosus (Culturelle 15b) 1 each PO DAILY [facility] Stop: 10/20/17 08:59 Last Admin: 08/30/17 08:14 Dose: 1 each Lorazepam (Ativan) 2 mg IVP Q4HR PRN; Protocol PRN Reason: Agitation Stop: 10/15/17 11:49 Last Admin: 08/30/17 08:13 Dose: 2 mg Magnesium Hydroxide (Milk Of Magnesia) 30 ml PO Q72HR PRN PRN Reason: Constipation Stop: 10/19/17 11:44 Midodrine (Proamatine) 10 mg PO BID [facility] Stop: 10/28/17 16:59 Last Admin: 08/30/17 08:14 Dose: 10 mg Mirtazapine (Remeron) 15 mg GT HS [facility] PRN Reason: Protocol Stop: 10/19/17 20:59 Last Admin: 08/29/17 21:01 Dose: 15 mg Miscellaneous (Probiotic Screen) 1 ea MC PRN PRN PRN Reason: PROTOCOL Stop: 10/22/17 10:29 Miscellaneous (Vancomycin Iv Per Pharmacy) 1 ea MC PRN [facility] Stop: 10/23/17 16:59 Multivitamins/Vitamin C (Theragran) 1 tab PO DAILY [facility] Stop: 10/20/17 08:59 Last Admin: 08/30/17 08:14 Dose: 1 tab Ondansetron HCl (Zofran) 4 mg IV Q6H PRN PRN Reason: Nausea / Vomiting Stop: 10/19/17 11:40 Pantoprazole Sodium (Protonix) 40 mg IVP BID [facility] Stop: 10/28/17 16:59 Last Admin: 08/30/17 08:13 Dose: 40 mg Simethicone (Mylicon) 80 mg GT Q6HR PRN PRN Reason: Gas Stop: 10/19/17 11:59 Sodium Phosphate (Fleet Enema) 135 ml RC PRN PRN PRN Reason: If MOM/Dulcolax ineffective Stop: 10/19/17 11:29 Zinc Sulfate (Zinc Sulfate) 220 mg PO DAILY [facility] Stop: 10/20/17 08:59 Last Admin: 08/30/17 08:13 Dose: 220 mg General: No acute distress (scattered rhonchi) HEENT: Atraumatic Neck: Supple Cardiovascular: Regular rate Lungs: Clear to auscultation Abdomen: Bowel sounds, Soft, Other (INTACT GT), no Distended, no Rebound, no Guarding Extremities: Edema (upper wxtrmities), Other (upper ext) Neurological: Sensation intact Skin: no Rash Psych/Mental Status: Mood NL - Procedures Procedures: Procedures Procedure Code Date BLOOD TRANSFUSION SERVICE 43753 08/02/17 EXCISION OF STOMACH, ENDO, DIAGN [id number] 07/10/17 INSPECTION OF LOWER INTESTINAL TRACT, ENDO [id number] 07/10/17 PERFORMANCE OF URINARY FILTRATION, <6 HRS/DAY [id number] 07/10/17 RESPIRATORY VENTILATION, GREATER THAN 96 CONSECUTIVE HOURS [id number] 08/02/17 TRANSFUSE NONAUT RED BLOOD CELLS IN PERIPH VEIN, PERC [id number] 08/02/17 Nutritional Asmnt/Malnutr-PDOC - Dietary Evaluation Malnutrition Findings (Please click <Entered> for more info): Nutritional Asmnt/Malnutrition Start: 08/05/17 15: 53 Text: Status: Complete Freq: Document 08/05/17 15:53 NAVIN (Rec: 08/05/17 16:19 [facility] Nutritional Asmnt/Malnutrition Patient General Information Nutritional Screening High Risk Diagnosis sepsis, respiratory failure, ESRD Pertinent Medical Hx/Surgical Hx ESRD on HD, respiratory failure with tracheostomy, dysphagia, a fib, anemia, HTN, GERD Subjective Information Pt on vent, not able to interview. Pt was on TF Novosource Renal 30ml/hr continuous, NPO today for surgery. Pt has dialysis ordred per nurse note. Current Diet Order/ Nutrition Support NPO on 08/05 Pertinent Medications vit C, vit D3, colace, novolog , remeron, theragran, protonix , zinc Pertinent Labs 08/05 Na 134, K 3.6, Cl 102, BUN 77, Cr 4.2, Glucose 216, POC 224-233 08/02 A1c 7.7 Nutritional Hx/Data Height 1.6 m Height (Calculated Centimeters) 160.0 Current Weight (lbs) 87.543 kg Weight (Calculated Kilograms) 87.5 Weight (Calculated Grams) 92453.3 [place] Body Weight 115 Body Mass Index (BMI) 34.2 Weight Status Obese GI Symptoms GI Symptoms None Last BM 08/04 Difficult in: None Skin Integrity/Comment: reddened to left/right inner thigh, right lateral index finger, right/left arm; skin tear to left abdominal fold; pressure area to coccy/sacral Estimated Nutritional Goals BEE in Kcals: Adj wt of IBW Calories/Kcals/Kg 30-35 adj wt 61kg Kcals Calculated [id number] Protein: Adj wt of IBW Protein g/k.2-1.4 Protein Calculated 73-85 Fluid: ml 1830-2135ml (1ml/kcal) Nutritional Problem 1. Problem Problem altered nutrition related lab values Etiology hx of ESRD, endocrine dysfunction Signs/Symptoms: BUN 77, Cr 4.2, Glucose 216, POC 224-233, A1c 7.7 Malnutrition Alert Protein-Calorie Malnutrition N/A Is there a minimum of two criteria No selected? Query Text:Check all the applicable criteria. A minimum of two criteria are recommended for diagnosis of either severe or non-severe malnutrition. Intervention/Recommendation Comments 1. Resume TF Novosource Renal 30ml/hr continuous as ordered. increase to goal rate of 40ml /hr continuous as tolerated. This will provide 1920kcal, 87g protein and 688ml free water, meeting 100% of nutritional needs 2. Monitor TF rate, tolerance, wt weekly, skin integrity and labs 3. F/U as high risk in 2-3 days, 08/07-08/08 Expected Outcomes/Goals Expected Outcomes/Goals 1. Pt to meet at least 75% of nutritional needs via nutrition support with tolerance 2. Wt stability, skin to remain intact, labs to approach WNL.
--- NOTE | 2017-08-30 16:06 | General Progress Note ---
Subjective - Review of Systems Service Date: 08/30/17 Subjective: sleeping, on vent Objective - Results Result Diagrams: 08/30/17 04:30 08/30/17 04:30 Recent Labs: Laboratory Last Values WBC 10.3 Th/cmm (4.8-10.8) 08/30/17 04:30 Corrected WBC (auto) 13.2 Th/cmm (4.8-10.8) H 08/28/17 06:30 RBC 2.87 Mil/cmm (3.80-5.20) L 08/30/17 04:30 Hgb 11.6 gm/dL (12-16) L 08/30/17 04:30 Hct 28.4 % (41.0-60) L 08/30/17 04:30 MCV 98.9 fl (81-100) 08/30/17 04:30 MCH 40.3 pg (27.0-31.0) H 08/30/17 04:30 MCHC Differential 40.7 pg (28.0-36.0) H 08/30/17 04:30 RDW 15.4 % (11.5-20.0) 08/30/17 04:30 Plt Count 117 Th/cmm (150-400) L 08/30/17 04:30 MPV 10.4 fl 08/30/17 04:30 Neutrophils % 79.4 % (40.0-80.0) 08/30/17 04:30 Band Neutrophils % 4 % (0-10) 08/29/17 04:20 Lymphocytes % 5.8 % (20.0-50.0) L 08/30/17 04:30 Monocytes % 11.6 % (2.0-10.0) H 08/30/17 04:30 Eosinophils % 2.6 % (0.0-5.0) 08/30/17 04:30 Basophils % 0.6 % (0.0-2.0) 08/30/17 04:30 Neutrophils (Manual) 68 % (40-80) 08/29/17 04:20 Lymphocytes 14 % (20-50) L 08/29/17 04:20 Monocytes 7 % (2-10) 08/29/17 04:20 Eosinophils 7 % (0-5) H 08/29/17 04:20 Basophils 1 % (0-3) 08/28/17 06:30 Nucleated RBCs 1.0 % (0-0) H 08/29/17 04:20 Hypochromia 1+ 08/02/17 15:37 Platelet Estimate ADEQUATE (NORMAL) 08/28/17 06:30 Platelet Morphology NORMAL (NORMAL) 08/20/17 04:45 Anisocytosis 1+ 08/28/17 06:30 Crenated Cell 2+ 08/02/17 15:37 RBC Morph Micro Appear ABNORMAL (NORMAL) 08/02/17 15:37 PT 11.6 SECONDS (9.5-11.5) H 08/25/17 21:06 INR 1.11 (0.5-1.4) 08/25/17 21:06 PTT (Actin FS) 32.3 SECONDS (26.0-38.0) 08/25/17 21:06 Specimen Source Arterial 08/03/17 08:58 Sample Site Right Radial 08/03/17 08:58 pH 7.42 (7.35-7.45) 08/03/17 08:58 pCO2 37.0 mmHg (35.0-45.0) 08/03/17 08:58 pO2 204.0 mmHg (80.0-100.0) H 08/03/17 08:58 HCO3 24.8 mEq/L (20.0-26.0) 08/03/17 08:58 Base Excess -0.2 mEq/L (-3.0-3.0) 08/03/17 08:58 O2 Saturation 100.0 % (92.0-100.0) 08/03/17 08:58 Rhett Test Positive 08/03/17 08:58 Vent Rate 12 08/03/17 08:58 Inspired O2 60 08/03/17 08:58 Tidal Volume 450 08/03/17 08:58 PEEP 5 08/03/17 08:58 Pressure (ins/psv/peep) NA 08/03/17 08:58 Critical Value LZHANG 08/03/17 08:58 Sodium 138 mEq/L (136-145) 08/30/17 04:30 Potassium 3.6 mEq/L (3.5-5.1) 08/30/17 04:30 Chloride 106 mEq/L (98-107) 08/30/17 04:30 Carbon Dioxide 25.5 mEq/L (21.0-31.0) 08/30/17 04:30 Anion Gap 10.1 (7.0-16.0) 08/30/17 04:30 BUN 6 mg/dL (7-25) L 08/30/17 04:30 Creatinine 1.0 mg/dL (0.6-1.2) 08/30/17 04:30 Est GFR ( Amer) TNP 08/30/17 04:30 Est GFR (Non-Af Amer) TNP 08/30/17 04:30 BUN/Creatinine Ratio 6.0 08/30/17 04:30 Glucose 105 mg/dL (70-105) 08/30/17 04:30 POC Glucose 140 MG/DL (70 - 105) H 08/30/17 13:12 Hemoglobin A1c % 7.7 % (4.0-6.0) H 08/02/17 15:37 Whole Bld Lactic Acid 1.97 mmol/L (0.60-1.99) 08/02/17 13:49 Calcium 8.7 mg/dL (8.6-10.3) 08/30/17 04:30 Magnesium 1.8 mg/dL (1.9-2.7) L 08/28/17 04:20 Iron 10 ug/dL (27-139) L 08/02/17 13:56 TIBC 135 ug/dL (250-450) L 08/02/17 13:56 Iron Saturation 7 % (15-55) L 08/02/17 13:56 Unsaturated IBC 125 ug/dL (118-369) 08/02/17 13:56 Ferritin 588 ng/mL (15-150) H 08/02/17 13:56 Total Bilirubin 0.4 mg/dL (0.3-1.0) 08/26/17 06:05 Direct Bilirubin 0.09 mg/dL (0.0-0.2) 08/02/17 13:57 AST 34 U/L (13-39) 08/26/17 06:05 ALT 14 U/L (7-52) 08/26/17 06:05 Alkaline Phosphatase 70 U/L (34-104) 08/26/17 06:05 Troponin I 0.10 ng/mL (0.01-0.05) H* D 08/20/17 17:00 B-Natriuretic Peptide 839.0 pg/mL (5.0-100.0) H 08/19/17 04:58 Total Protein 6.3 gm/dL (6.0-8.3) 08/26/17 06:05 Albumin 2.7 gm/dL (3.7-5.3) L 08/26/17 06:05 Globulin 3.6 gm/dL 08/26/17 06:05 Albumin/Globulin Ratio 0.8 (1.0-1.8) L 08/26/17 06:05 Triglycerides 132 mg/dL (<150) 08/04/17 06:30 Cholesterol 55 mg/dL (<200) 08/04/17 06:30 LDL Cholesterol Direct 16 mg/dL (75-193) L 08/04/17 06:30 HDL Cholesterol 13 mg/dL (23-92) L 08/04/17 06:30 Amylase 12 U/L (29-103) L 08/02/17 13:43 Lipase 4 U/L (11-82) L 08/02/17 13:43 TSH 3.74 uIU/ml (0.34-5.60) 08/04/17 06:30 Stool Occult Blood POSITIVE (NEGATIVE) H 08/03/17 17:50 Random Vancomycin 15.4 ug/mL (5.0-40.0) 08/30/17 04:30 Hepatitis A IgM Ab Negative (Negative) 08/08/17 08:15 Hep Bs Antigen Negative (Negative) 08/08/17 08:15 Hep B Core IgM Ab Negative (Negative) 08/08/17 08:15 Hepatitis C Antibody <0.1 s/co ratio (0.0-0.9) 08/08/17 08:15 Blood Type A POSITIVE 08/26/17 23:45 Rho(D) Type Cancelled 08/26/17 23:46 Antibody Screen POSITIVE 08/26/17 23:45 Antibody Identification Anti-K 08/24/17 08:30 NEVILLE, IgG Interpret NEGATIVE 08/15/17 07:50 Crossmatch See Detail 08/26/17 23:46 Crossmatch (AHG) Cancelled 08/26/17 23:46 Donor Unit # Cancelled 08/26/17 23:46 BBK History Checked Cancelled 08/26/17 23:46 - Physical Exam Vitals and I&O: Vital Signs Temp 96.5 F 08/30/17 12:00 Pulse 67 08/30/17 15:43 Resp 16 08/30/17 15:00 BP 117/30 08/30/17 15:30 Pulse Ox 100 08/30/17 15:43 Intake & Output 08/29/17 08/30/17 08/30/17 18:59 06:59 18:59 Intake Total 418.6 205.530 121.957 Output Total 2400 Balance -1981.4 205.530 121.957 Weight (lbs) 107.955 kg 107.955 kg Intake: Intake, IV Amount 148.6 175.530 121.957 Norepinephrine 8 mg In 98.6 75.53 71.957 Sodium Chloride 0.9% 250 ml @ 18 MCG/MIN 34.83 mls /hr IV TITR PRN Rx#: [id number] Piperacillin Sodium/ 50 100.000 50 Tazobact 2.25 gm In Sodium Chloride 0.9% 50 ml @ 100 mls/hr IV Q8HR [facility] Rx#:[id number] Tube Feeding 150 30 Other 120 Output: Urine 0 Hemodialysis 2400 Other: # Bowel Movements 1 Stool Characteristics Liquid Liquid Liquid Brown Green Brown Weight Source Bedscale Bedscale Active Medications: Current Medications Acetaminophen (Tylenol) 650 mg GT DAILY [facility] Stop: 10/20/17 08:59 Last Admin: 08/30/17 08:13 Dose: 650 mg Albuterol/Ipratropium (Duoneb Neb) 3 ml HHN Q4HRT [facility] Stop: 10/19/17 10:59 Last Admin: 08/30/17 15:40 Dose: 3 ml Amiodarone HCl (Cordarone) 200 mg GT Q12H [facility] Stop: 10/20/17 10:59 Last Admin: 08/30/17 12:03 Dose: Not Given Ascorbic Acid (Vitamin C) 500 mg PO DAILY [facility] Stop: 10/20/17 08:59 Last Admin: 08/30/17 08:13 Dose: 500 mg Aspirin (Aspirin Chewable) 81 mg PO DAILY [facility] Stop: 10/20/17 08:59 Last Admin: 08/30/17 08:13 Dose: 81 mg Atorvastatin Calcium (Lipitor) 40 mg GT DAILY [facility] PRN Reason: Protocol Stop: 10/20/17 08:59 Last Admin: 08/30/17 08:13 Dose: 40 mg Bisacodyl (Dulcolax 10 Mg Supp) 10 mg RC Q72HR PRN PRN Reason: if MOM ineffective Stop: 10/19/17 11:29 Chlorhexidine Gluconate (Peridex) 15 ml MM 0800,1999 [facility] Stop: 10/19/17 19:59 Last Admin: 08/30/17 08:14 Dose: 15 ml Cholecalciferol (Vitamin D3) 1,000 iu PO DAILY [facility] Stop: 10/20/17 08:59 Last Admin: 08/30/17 08:14 Dose: 1,000 iu Diltiazem HCl (Cardizem) 20 mg IV Q4HR PRN PRN Reason: HR ABOVE 120 Stop: 09/13/17 11:59 Docusate Sodium (Colace) 100 mg PO DAILY [facility] Stop: 10/20/17 08:59 Last Admin: 08/30/17 08:14 Dose: 100 mg Dopamine HCl/Dextrose (Dopamine) 400 mg in 250 mls @ 0 mls/hr IV TITR PRN; Protocol; 0 MCG/KG/MIN PRN Reason: BP MAINTENANCE (PER PROTOCOL) Stop: 10/19/17 11:28 Norepinephrine Bitartrate 8 mg (/ Sodium Chloride) 258 mls @ 34.83 mls/hr IV TITR PRN; Protocol; 18 MCG/MIN PRN Reason: BP MAINTENANCE (PER PROTOCOL) Stop: 10/19/17 11:09 Last Titration: 08/30/17 14:11 Dose: 2 mcg/min, 3.87 mls/hr Piperacillin Sod/Tazobactam (Sod 2.25 gm/ Sodium Chloride) 50 mls @ 100 mls/hr IV Q8HR [facility] Stop: 10/23/17 20:59 Last Infusion: 08/30/17 14:30 Dose: Infused Phenylephrine HCl 10 mg/ (Sodium Chloride) 250 mls @ 0 mls/hr IV TITR [facility]; Per Protocol PRN Reason: Protocol Stop: 10/24/17 10:29 Dextrose (D5w) 1,000 mls @ 20 mls/hr IV .Q24H [facility] Stop: 10/28/17 18:43 Last Admin: 08/29/17 20:55 Dose: 20 mls/hr Insulin Aspart (Novolog Insulin Sliding Scale) 0 units SUBQ Q6HR [facility] PRN Reason: Protocol Stop: 10/19/17 11:59 Last Admin: 08/30/17 13:00 Dose: Not Given Insulin Detemir (Levemir Insulin) 16 units SUBQ HS [facility] PRN Reason: Protocol Stop: 10/19/17 20:59 Last Admin: 08/29/17 21:03 Dose: 16 units Lactobacillus Rhamnosus (Culturelle 15b) 1 each PO DAILY [facility] Stop: 10/20/17 08:59 Last Admin: 08/30/17 08:14 Dose: 1 each Lorazepam (Ativan) 2 mg IVP Q4HR PRN; Protocol PRN Reason: Agitation Stop: 10/15/17 11:49 Last Admin: 08/30/17 08:13 Dose: 2 mg Magnesium Hydroxide (Milk Of Magnesia) 30 ml PO Q72HR PRN PRN Reason: Constipation Stop: 10/19/17 11:44 Midodrine (Proamatine) 10 mg PO BID [facility] Stop: 10/28/17 16:59 Last Admin: 08/30/17 08:14 Dose: 10 mg Mirtazapine (Remeron) 15 mg GT HS [facility] PRN Reason: Protocol Stop: 10/19/17 20:59 Last Admin: 08/29/17 21:01 Dose: 15 mg Miscellaneous (Probiotic Screen) 1 ea MC PRN PRN PRN Reason: PROTOCOL Stop: 10/22/17 10:29 Miscellaneous (Vancomycin Iv Per Pharmacy) 1 ea MC PRN [facility] Stop: 10/23/17 16:59 Multivitamins/Vitamin C (Theragran) 1 tab PO DAILY [facility] Stop: 10/20/17 08:59 Last Admin: 08/30/17 08:14 Dose: 1 tab Ondansetron HCl (Zofran) 4 mg IV Q6H PRN PRN Reason: Nausea / Vomiting Stop: 10/19/17 11:40 Pantoprazole Sodium (Protonix) 40 mg IVP BID [facility] Stop: 10/28/17 16:59 Last Admin: 08/30/17 08:13 Dose: 40 mg Simethicone (Mylicon) 80 mg GT Q6HR PRN PRN Reason: Gas Stop: 10/19/17 11:59 Sodium Phosphate (Fleet Enema) 135 ml RC PRN PRN PRN Reason: If MOM/Dulcolax ineffective Stop: 10/19/17 11:29 Zinc Sulfate (Zinc Sulfate) 220 mg PO DAILY [facility] Stop: 10/20/17 08:59 Last Admin: 08/30/17 08:13 Dose: 220 mg General: No acute distress (scattered rhonchi) HEENT: Atraumatic, Mucous membr. moist/pink Neck: Supple, +2 carotid pulse wo bruit Cardiovascular: Regular rate, Normal S1, Normal S2 Lungs: Other (scattered rhonchi) Abdomen: Bowel sounds, Soft, Other (INTACT GT), no Distended, no Rebound, no Guarding Extremities: Edema (upper wxtrmities), Other (upper ext) Neurological: Sensation intact Skin: no Rash Psych/Mental Status: Mood NL - Procedures Procedures: Procedures Procedure Code Date BLOOD TRANSFUSION SERVICE 70565 08/02/17 EXCISION OF STOMACH, ENDO, DIAGN [id number] 07/10/17 INSPECTION OF LOWER INTESTINAL TRACT, ENDO [id number] 07/10/17 PERFORMANCE OF URINARY FILTRATION, <6 HRS/DAY [id number] 07/10/17 RESPIRATORY VENTILATION, GREATER THAN 96 CONSECUTIVE HOURS [id number] 08/02/17 TRANSFUSE NONAUT RED BLOOD CELLS IN PERIPH VEIN, PERC 74414U2 08/02/17 Assessment/Plan - Assessment Assessment: 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/L UE Edema, Cellulitis Shock Sepsis RF on Vent Acute on Chronic Decomp CHF G (-) Septicemia A. fib to V. tach Severe acute anemia 2/2 GI bleed? - Plan Plan: Lab - Result Diagrams 08/04/17 06:30 08/04/17 06:30 Current Medications Acetaminophen (Tylenol 650mg/20.3ml Suspension) 650 mg GT DAILY [facility] Stop: 10/03/17 08:59 Last Admin: 08/04/17 09:18 Dose: 650 mg Albuterol/Ipratropium (Duoneb Neb) 3 ml HHN Q4HRT [facility] Stop: 10/02/17 10:59 Last Admin: 08/04/17 11:25 Dose: 3 ml Ascorbic Acid (Vitamin C) 500 mg PO DAILY [facility] Stop: 10/03/17 08:59 Last Admin: 08/04/17 09:18 Dose: 500 mg Aspirin (Aspirin Chewable) 81 mg GT DAILY [facility] Stop: 10/03/17 08:59 Last Admin: 08/04/17 09:18 Dose: 81 mg Atorvastatin Calcium (Lipitor) 40 mg GT HS [facility] PRN Reason: Protocol Stop: 10/02/17 20:59 Last Admin: 08/03/17 20:19 Dose: 40 mg Bisacodyl (Dulcolax 10 Mg Supp) 10 mg RC Q72HR PRN PRN Reason: IF MOM INEFFECTIVE Stop: 10/02/17 14:13 Bisacodyl (Dulcolax 10 Mg Supp) 10 mg RC PRN PRN PRN Reason: IF MOM INEFFECTIVE Stop: 10/02/17 14:13 Chlorhexidine Gluconate (Peridex) 15 ml MM 0800,2000 [facility] Stop: 10/02/17 07:59 Last Admin: 08/04/17 08:00 Dose: 15 ml Cholecalciferol (Vitamin D3) 1,000 iu GT DAILY [facility] Stop: 10/03/17 08:59 Last Admin: 08/04/17 09:18 Dose: 1,000 iu Diltiazem HCl (Cardizem) 5 mg IVP Q4H PRN PRN Reason: INCREASE HEART RATE Stop: 10/01/17 21:59 Last Admin: 08/03/17 01:38 Dose: 5 mg Docusate Sodium (Colace) 100 mg PO DAILY [facility] Stop: 10/03/17 08:59 Last Admin: 08/04/17 09:18 Dose: 100 mg Heparin Sodium (Porcine) (Heparin) 5,000 units HD UD [facility] Stop: 08/05/17 08:59 Last Admin: 08/04/17 09:19 Dose: Not Given Fluconazole (Diflucan) 200 mg in 100 mls @ 100 mls/hr IV Q24HR [facility] Stop: 10/02/17 14:59 Last Infusion: 08/03/17 15:40 Dose: Infused Meropenem 500 mg/ Sodium (Chloride) 100 mls @ 100 mls/hr IV Q24H [facility] Stop: 10/02/17 12:59 Last Admin: 08/04/17 13:17 Dose: 100 mls/hr Dopamine HCl/Dextrose (Dopamine) 400 mg in 250 mls @ 0 mls/hr IV TITR PRN; Protocol; Per Protocol PRN Reason: BP MAINTENANCE (PER PROTOCOL) Stop: 10/02/17 07:47 Norepinephrine Bitartrate 4 mg (/ Dextrose) 254 mls @ 0 mls/hr IV TITR PRN; Protocol; Per Protocol PRN Reason: BP MAINTENANCE (PER PROTOCOL) Stop: 10/02/17 08:31 Last Admin: 08/03/17 23:47 Dose: 4 mcg/min, 15.24 mls/hr Colistimethate Sodium 80 mg/ (Sodium Chloride) 100 mls @ 100 mls/hr IV Q36H [facility] Stop: 10/02/17 20:59 Last Infusion: 08/03/17 21:20 Dose: Infused Insulin Aspart (Novolog Insulin Sliding Scale) 0 units SUBQ Q6HR [facility] PRN Reason: Protocol Stop: 10/02/17 00:00 Last Admin: 08/04/17 11:30 Dose: 6 units Lorazepam (Ativan) 1 mg IVP Q2HR PRN; Protocol PRN Reason: Restlessness Stop: 10/01/17 21:18 Last Admin: 08/04/17 01:05 Dose: 1 mg Magnesium Hydroxide (Milk Of Magnesia) 30 ml GT Q72H PRN PRN Reason: NO BM FOR THREE DAYS Stop: 10/02/17 14:13 Mirtazapine (Remeron) 15 mg GT HS [facility] PRN Reason: Protocol Stop: 10/02/17 20:59 Last Admin: 08/03/17 20:19 Dose: 15 mg Miscellaneous (Vancomycin Iv Per Pharmacy) 1 ea PRN PRN PRN Reason: PROTOCOL Stop: 10/01/17 20:42 Miscellaneous (Zosyn Iv Per Pharmacy) 1 ea PRN PRN PRN Reason: PROTOCOL Stop: 10/01/17 20:42 Multivitamins/Vitamin C (Theragran) 1 tab PO DAILY [facility] Stop: 10/03/17 08:59 Last Admin: 08/04/17 09:18 Dose: 1 tab Ondansetron HCl (Zofran Odt) 4 mg PO Q6HR PRN PRN Reason: Nausea / Vomiting Stop: 10/02/17 14:13 Pantoprazole Sodium (Protonix) 40 mg IVP DAILY [facility] Stop: 10/02/17 08:59 Last Admin: 08/04/17 09:18 Dose: 40 mg Simethicone (Mylicon) 80 mg GT Q6H PRN PRN Reason: GAS PAIN Stop: 10/02/17 14:13 Sodium Phosphate (Fleet Enema) 118 ml RC PRN PRN PRN Reason: IF MOM/DULCOLAX INEFFECTIVE Stop: 10/02/17 14:13 Temazepam (Restoril) 15 mg GT HS PRN; Protocol PRN Reason: Insomnia Stop: 10/02/17 14:13 Last Admin: 08/03/17 20:19 Dose: 15 mg Zinc Sulfate (Zinc Sulfate) 220 mg GT DAILY [facility] Stop: 10/03/17 08:59 Last Admin: 08/04/17 09:18 Dose: 220 pt. was dialyzed yesterday & tolerated it well CXR still showed persistent b/l effusions, CHF, left > right replace K f/u electrolytes. cbc now off Levo BS low, monitor closely, hold Levemir, continue S/S wbc down to 10.3 if left AVF clotted request placement of sandor cath bleed scan neg BUN/CR now 11/07? but remains anuric; monitor closely & hold dialysis Lab - Result Diagrams 08/30/17 04:30 08/30/17 04:30 Nutritional Asmnt/Malnutr-PDOC - Dietary Evaluation Malnutrition Findings (Please click <Entered> for more info): Nutritional Asmnt/Malnutrition Start: 08/05/17 15: 53 Text: Status: Complete Freq: Document 08/05/17 15:53 NAVIN (Rec: 08/05/17 16:19 MAX [id number]) Nutritional Asmnt/Malnutrition Patient General Information Nutritional Screening High Risk Diagnosis sepsis, respiratory failure, ESRD Pertinent Medical Hx/Surgical Hx ESRD on HD, respiratory failure with tracheostomy, dysphagia, a fib, anemia, HTN, GERD Subjective Information Pt on vent, not able to interview. Pt was on TF Novosource Renal 30ml/hr continuous, NPO today for surgery. Pt has dialysis ordred per nurse note. Current Diet Order/ Nutrition Support NPO on 08/05 Pertinent Medications vit C, vit D3, colace, novolog , remeron, theragran, protonix , zinc Pertinent Labs 08/05 Na 134, K 3.6, Cl 102, BUN 77, Cr 4.2, Glucose 216, POC 224-233 08/02 A1c 7.7 Nutritional Hx/Data Height 1.6 m Height (Calculated Centimeters) 160.0 Current Weight (lbs) 87.543 kg Weight (Calculated Kilograms) 87.5 Weight (Calculated Grams) 16341.3 [place] Body Weight 115 Body Mass Index (BMI) 34.2 Weight Status Obese GI Symptoms GI Symptoms None Last BM 08/04 Difficult in: None Skin Integrity/Comment: reddened to left/right inner thigh, right lateral index finger, right/left arm; skin tear to left abdominal fold; pressure area to coccy/sacral Estimated Nutritional Goals BEE in Kcals: Adj wt of IBW Calories/Kcals/Kg 30-35 adj wt 61kg Kcals Calculated 9485-3437 Protein: Adj wt of IBW Protein g/k.2-1.4 Protein Calculated 73-85 Fluid: ml 1830-2135ml (1ml/kcal) Nutritional Problem 1. Problem Problem altered nutrition related lab values Etiology hx of ESRD, endocrine dysfunction Signs/Symptoms: BUN 77, Cr 4.2, Glucose 216, POC 224-233, A1c 7.7 Malnutrition Alert Protein-Calorie Malnutrition N/A Is there a minimum of two criteria No selected? Query Text:Check all the applicable criteria. A minimum of two criteria are recommended for diagnosis of either severe or non-severe malnutrition. Intervention/Recommendation Comments 1. Resume TF Novosource Renal 30ml/hr continuous as ordered. increase to goal rate of 40ml /hr continuous as tolerated. This will provide 1920kcal, 87g protein and 688ml free water, meeting 100% of nutritional needs 2. Monitor TF rate, tolerance, wt weekly, skin integrity and labs 3. F/U as high risk in 2-3 days, 08/07-08/08 Expected Outcomes/Goals Expected Outcomes/Goals 1. Pt to meet at least 75% of nutritional needs via nutrition support with tolerance 2. Wt stability, skin to remain intact, labs to approach WNL.
[2017-08-30] MEDS: Insulin Detemir 100 units/mL 10mL Vial SUBQ SCH (21:47)
--- NOTE | 2017-08-30 23:53 | Infectious Disease Prog Note ---
Infectious Disease Subjective - Review of Systems Service Date: 08/30/17 Subjective: no fever. Off levophed . Infectious Disease Objective - Results Result Diagrams: 08/31/17 04:10 08/31/17 04:10 Recent Labs: Laboratory Last Values WBC 10.3 Th/cmm (4.8-10.8) 08/30/17 04:30 Corrected WBC (auto) 13.2 Th/cmm (4.8-10.8) H 08/28/17 06:30 RBC 2.87 Mil/cmm (3.80-5.20) L 08/30/17 04:30 Hgb 11.6 gm/dL (12-16) L 08/30/17 04:30 Hct 28.4 % (41.0-60) L 08/30/17 04:30 MCV 98.9 fl (81-100) 08/30/17 04:30 MCH 40.3 pg (27.0-31.0) H 08/30/17 04:30 MCHC Differential 40.7 pg (28.0-36.0) H 08/30/17 04:30 RDW 15.4 % (11.5-20.0) 08/30/17 04:30 Plt Count 117 Th/cmm (150-400) L 08/30/17 04:30 MPV 10.4 fl 08/30/17 04:30 Neutrophils % 79.4 % (40.0-80.0) 08/30/17 04:30 Band Neutrophils % 4 % (0-10) 08/29/17 04:20 Lymphocytes % 5.8 % (20.0-50.0) L 08/30/17 04:30 Monocytes % 11.6 % (2.0-10.0) H 08/30/17 04:30 Eosinophils % 2.6 % (0.0-5.0) 08/30/17 04:30 Basophils % 0.6 % (0.0-2.0) 08/30/17 04:30 Neutrophils (Manual) 68 % (40-80) 08/29/17 04:20 Lymphocytes 14 % (20-50) L 08/29/17 04:20 Monocytes 7 % (2-10) 08/29/17 04:20 Eosinophils 7 % (0-5) H 08/29/17 04:20 Basophils 1 % (0-3) 08/28/17 06:30 Nucleated RBCs 1.0 % (0-0) H 08/29/17 04:20 Hypochromia 1+ 08/02/17 15:37 Platelet Estimate ADEQUATE (NORMAL) 08/28/17 06:30 Platelet Morphology NORMAL (NORMAL) 08/20/17 04:45 Anisocytosis 1+ 08/28/17 06:30 Crenated Cell 2+ 08/02/17 15:37 RBC Morph Micro Appear ABNORMAL (NORMAL) 08/02/17 15:37 PT 11.6 SECONDS (9.5-11.5) H 08/25/17 21:06 INR 1.11 (0.5-1.4) 08/25/17 21:06 PTT (Actin FS) 32.3 SECONDS (26.0-38.0) 08/25/17 21:06 Specimen Source Arterial 08/03/17 08:58 Sample Site Right Radial 08/03/17 08:58 pH 7.42 (7.35-7.45) 08/03/17 08:58 pCO2 37.0 mmHg (35.0-45.0) 08/03/17 08:58 pO2 204.0 mmHg (80.0-100.0) H 08/03/17 08:58 HCO3 24.8 mEq/L (20.0-26.0) 08/03/17 08:58 Base Excess -0.2 mEq/L (-3.0-3.0) 08/03/17 08:58 O2 Saturation 100.0 % (92.0-100.0) 08/03/17 08:58 Rhett Test Positive 08/03/17 08:58 Vent Rate 12 08/03/17 08:58 Inspired O2 60 08/03/17 08:58 Tidal Volume 450 08/03/17 08:58 PEEP 5 08/03/17 08:58 Pressure (ins/psv/peep) NA 08/03/17 08:58 Critical Value LZHANG 08/03/17 08:58 Sodium 138 mEq/L (136-145) 08/30/17 04:30 Potassium 3.6 mEq/L (3.5-5.1) 08/30/17 04:30 Chloride 106 mEq/L (98-107) 08/30/17 04:30 Carbon Dioxide 25.5 mEq/L (21.0-31.0) 08/30/17 04:30 Anion Gap 10.1 (7.0-16.0) 08/30/17 04:30 BUN 6 mg/dL (7-25) L 08/30/17 04:30 Creatinine 1.0 mg/dL (0.6-1.2) 08/30/17 04:30 Est GFR ( Amer) TNP 08/30/17 04:30 Est GFR (Non-Af Amer) TNP 08/30/17 04:30 BUN/Creatinine Ratio 6.0 08/30/17 04:30 Glucose 105 mg/dL (70-105) 08/30/17 04:30 POC Glucose 212 MG/DL (70 - 105) H 08/30/17 21:45 Hemoglobin A1c % 7.7 % (4.0-6.0) H 08/02/17 15:37 Whole Bld Lactic Acid 1.97 mmol/L (0.60-1.99) 08/02/17 13:49 Calcium 8.7 mg/dL (8.6-10.3) 08/30/17 04:30 Magnesium 1.8 mg/dL (1.9-2.7) L 08/28/17 04:20 Iron 10 ug/dL (27-139) L 08/02/17 13:56 TIBC 135 ug/dL (250-450) L 08/02/17 13:56 Iron Saturation 7 % (15-55) L 08/02/17 13:56 Unsaturated IBC 125 ug/dL (118-369) 08/02/17 13:56 Ferritin 588 ng/mL (15-150) H 08/02/17 13:56 Total Bilirubin 0.4 mg/dL (0.3-1.0) 08/26/17 06:05 Direct Bilirubin 0.09 mg/dL (0.0-0.2) 08/02/17 13:57 AST 34 U/L (13-39) 08/26/17 06:05 ALT 14 U/L (7-52) 08/26/17 06:05 Alkaline Phosphatase 70 U/L (34-104) 08/26/17 06:05 Troponin I 0.10 ng/mL (0.01-0.05) H* D 08/20/17 17:00 B-Natriuretic Peptide 839.0 pg/mL (5.0-100.0) H 08/19/17 04:58 Total Protein 6.3 gm/dL (6.0-8.3) 08/26/17 06:05 Albumin 2.7 gm/dL (3.7-5.3) L 08/26/17 06:05 Globulin 3.6 gm/dL 08/26/17 06:05 Albumin/Globulin Ratio 0.8 (1.0-1.8) L 08/26/17 06:05 Triglycerides 132 mg/dL (<150) 08/04/17 06:30 Cholesterol 55 mg/dL (<200) 08/04/17 06:30 LDL Cholesterol Direct 16 mg/dL (75-193) L 08/04/17 06:30 HDL Cholesterol 13 mg/dL (23-92) L 08/04/17 06:30 Amylase 12 U/L (29-103) L 08/02/17 13:43 Lipase 4 U/L (11-82) L 08/02/17 13:43 TSH 3.74 uIU/ml (0.34-5.60) 08/04/17 06:30 Stool Occult Blood POSITIVE (NEGATIVE) H 08/03/17 17:50 Random Vancomycin 15.4 ug/mL (5.0-40.0) 08/30/17 04:30 Hepatitis A IgM Ab Negative (Negative) 08/08/17 08:15 Hep Bs Antigen Negative (Negative) 08/08/17 08:15 Hep B Core IgM Ab Negative (Negative) 08/08/17 08:15 Hepatitis C Antibody <0.1 s/co ratio (0.0-0.9) 08/08/17 08:15 Blood Type A POSITIVE 08/26/17 23:45 Rho(D) Type Cancelled 08/26/17 23:46 Antibody Screen POSITIVE 08/26/17 23:45 Antibody Identification Anti-K 08/24/17 08:30 NEVILLE, IgG Interpret NEGATIVE 08/15/17 07:50 Crossmatch See Detail 08/26/17 23:46 Crossmatch (AHG) Cancelled 08/26/17 23:46 Donor Unit # Cancelled 08/26/17 23:46 BBK History Checked Cancelled 08/26/17 23:46 - Physical Exam Vitals and I&O: Vital Signs Temp 97.2 F 08/30/17 16:00 Pulse 80 08/30/17 23:00 Resp 16 08/30/17 23:00 BP 124/62 08/30/17 23:00 Pulse Ox 100 08/30/17 23:00 Intake & Output 08/30/17 08/30/17 08/31/17 06:59 18:59 06:59 Intake Total 205.530 806.408 Balance 205.530 806.408 Weight (lbs) 107.955 kg 107.955 kg Intake: Intake, IV Amount 175.530 126.408 Norepinephrine 8 mg In 75.53 76.408 Sodium Chloride 0.9% 250 ml @ 18 MCG/MIN 34.83 mls /hr IV TITR PRN Rx#: [id number] Piperacillin Sodium/ 100.000 50 Tazobact 2.25 gm In Sodium Chloride 0.9% 50 ml @ 100 mls/hr IV Q8HR [facility] Rx#:[id number] Tube Feeding 30 480 Other 200 Other: # Voids 0 # Bowel Movements 2 Stool Characteristics Liquid Liquid Green Brown Weight Source Bedscale Bedscale Active Medications: Current Medications Acetaminophen (Tylenol) 650 mg GT DAILY [facility] Stop: 10/20/17 08:59 Last Admin: 08/30/17 08:13 Dose: 650 mg Albuterol/Ipratropium (Duoneb Neb) 3 ml HHN Q4HRT [facility] Stop: 10/19/17 10:59 Last Admin: 08/30/17 22:58 Dose: 3 ml Amiodarone HCl (Cordarone) 200 mg GT Q12H [facility] Stop: 10/20/17 10:59 Last Admin: 08/30/17 22:17 Dose: Not Given Ascorbic Acid (Vitamin C) 500 mg PO DAILY [facility] Stop: 10/20/17 08:59 Last Admin: 08/30/17 08:13 Dose: 500 mg Aspirin (Aspirin Chewable) 81 mg PO DAILY [facility] Stop: 10/20/17 08:59 Last Admin: 08/30/17 08:13 Dose: 81 mg Atorvastatin Calcium (Lipitor) 40 mg GT DAILY [facility] PRN Reason: Protocol Stop: 10/20/17 08:59 Last Admin: 08/30/17 08:13 Dose: 40 mg Bisacodyl (Dulcolax 10 Mg Supp) 10 mg RC Q72HR PRN PRN Reason: if MOM ineffective Stop: 10/19/17 11:29 Chlorhexidine Gluconate (Peridex) 15 ml MM 0800,1999 [facility] Stop: 10/19/17 19:59 Last Admin: 08/30/17 20:09 Dose: 15 ml Cholecalciferol (Vitamin D3) 1,000 iu PO DAILY [facility] Stop: 10/20/17 08:59 Last Admin: 08/30/17 08:14 Dose: 1,000 iu Diltiazem HCl (Cardizem) 20 mg IV Q4HR PRN PRN Reason: HR ABOVE 120 Stop: 09/13/17 11:59 Docusate Sodium (Colace) 100 mg PO DAILY [facility] Stop: 10/20/17 08:59 Last Admin: 08/30/17 08:14 Dose: 100 mg Dopamine HCl/Dextrose (Dopamine) 400 mg in 250 mls @ 0 mls/hr IV TITR PRN; Protocol; 0 MCG/KG/MIN PRN Reason: BP MAINTENANCE (PER PROTOCOL) Stop: 10/19/17 11:28 Norepinephrine Bitartrate 8 mg (/ Sodium Chloride) 258 mls @ 34.83 mls/hr IV TITR PRN; Protocol; 18 MCG/MIN PRN Reason: BP MAINTENANCE (PER PROTOCOL) Stop: 10/19/17 11:09 Last Titration: 08/30/17 15:20 Dose: 0 mcg/min, 0 mls/hr Piperacillin Sod/Tazobactam (Sod 2.25 gm/ Sodium Chloride) 50 mls @ 100 mls/hr IV Q8HR [facility] Stop: 10/23/17 20:59 Last Admin: 08/30/17 20:10 Dose: 100 mls/hr Phenylephrine HCl 10 mg/ (Sodium Chloride) 250 mls @ 0 mls/hr IV TITR [facility]; Per Protocol PRN Reason: Protocol Stop: 10/24/17 10:29 Dextrose (D5w) 1,000 mls @ 20 mls/hr IV .Q24H [facility] Stop: 10/28/17 18:43 Last Admin: 08/29/17 20:55 Dose: 20 mls/hr Insulin Aspart (Novolog Insulin Sliding Scale) 0 units SUBQ Q6HR [facility] PRN Reason: Protocol Stop: 10/19/17 11:59 Last Admin: 08/30/17 18:17 Dose: 2 units Insulin Detemir (Levemir Insulin) 16 units SUBQ HS [facility] PRN Reason: Protocol Stop: 10/19/17 20:59 Last Admin: 08/30/17 21:47 Dose: 16 units Lactobacillus Rhamnosus (Culturelle 15b) 1 each PO DAILY [facility] Stop: 10/20/17 08:59 Last Admin: 08/30/17 08:14 Dose: 1 each Lorazepam (Ativan) 2 mg IVP Q4HR PRN; Protocol PRN Reason: Agitation Stop: 10/15/17 11:49 Last Admin: 08/30/17 08:13 Dose: 2 mg Magnesium Hydroxide (Milk Of Magnesia) 30 ml PO Q72HR PRN PRN Reason: Constipation Stop: 10/19/17 11:44 Midodrine (Proamatine) 10 mg PO BID [facility] Stop: 10/28/17 16:59 Last Admin: 08/30/17 16:13 Dose: 10 mg Mirtazapine (Remeron) 15 mg GT HS [facility] PRN Reason: Protocol Stop: 10/19/17 20:59 Last Admin: 08/30/17 20:10 Dose: 15 mg Miscellaneous (Probiotic Screen) 1 ea MC PRN PRN PRN Reason: PROTOCOL Stop: 10/22/17 10:29 Miscellaneous (Vancomycin Iv Per Pharmacy) 1 ea MC PRN [facility] Stop: 10/23/17 16:59 Multivitamins/Vitamin C (Theragran) 1 tab PO DAILY [facility] Stop: 10/20/17 08:59 Last Admin: 08/30/17 08:14 Dose: 1 tab Ondansetron HCl (Zofran) 4 mg IV Q6H PRN PRN Reason: Nausea / Vomiting Stop: 10/19/17 11:40 Pantoprazole Sodium (Protonix) 40 mg IVP BID [facility] Stop: 10/28/17 16:59 Last Admin: 08/30/17 16:13 Dose: 40 mg Simethicone (Mylicon) 80 mg GT Q6HR PRN PRN Reason: Gas Stop: 10/19/17 11:59 Sodium Phosphate (Fleet Enema) 135 ml RC PRN PRN PRN Reason: If MOM/Dulcolax ineffective Stop: 10/19/17 11:29 Zinc Sulfate (Zinc Sulfate) 220 mg PO DAILY [facility] Stop: 10/20/17 08:59 Last Admin: 08/30/17 08:13 Dose: 220 mg General: no acute distress, well developed, well nourished HEENT: atraumatic, normocephalic, PERRLA Neck: supple, tracheostomy Cardiovascular: S1S2, regular Lungs: clear to auscultation bilaterally, clear to percussion, crackles Abdomen: soft, no tender Extremities: no cyanosis, no clubbing, no edema Neurological: awake, alert, oriented Skin: intact - Procedures Procedures: Procedures Procedure Code Date BLOOD TRANSFUSION SERVICE 89875 08/02/17 EXCISION OF STOMACH, ENDO, DIAGN [id number] 07/10/17 INSPECTION OF LOWER INTESTINAL TRACT, ENDO [id number] 07/10/17 PERFORMANCE OF URINARY FILTRATION, <6 HRS/DAY [id number] 07/10/17 RESPIRATORY VENTILATION, GREATER THAN 96 CONSECUTIVE HOURS [id number] 08/02/17 TRANSFUSE NONAUT RED BLOOD CELLS IN PERIPH VEIN, PERC 11923U5 08/02/17 Infectious Disease Assmt/Plan - Assessment Assessment: 1. Septic shock. versus cardiogenic shock. 2. Gram-negative negative bacteremia treated 3. Pneumonia. 4. 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 5. Diabetes mellitus type 2. 6. Obesity. 7. Hypotension on levophed. 8. Gi bleed. - Plan Plan: Continue vancomycin IV and Zosyn. Patient has poor prognosis. Nutritional Asmnt/Malnutr-PDOC - Dietary Evaluation Malnutrition Findings (Please click <Entered> for more info): Nutritional Asmnt/Malnutrition Start: 08/05/17 15: 53 Text: Status: Complete Freq: Document 08/05/17 15:53 HENG (Rec: 08/05/17 16:19 LCHENG [id number]) Nutritional Asmnt/Malnutrition Patient General Information Nutritional Screening High Risk Diagnosis sepsis, respiratory failure, ESRD Pertinent Medical Hx/Surgical Hx ESRD on HD, respiratory failure with tracheostomy, dysphagia, a fib, anemia, HTN, GERD Subjective Information Pt on vent, not able to interview. Pt was on TF Novosource Renal 30ml/hr continuous, NPO today for surgery. Pt has dialysis ordred per nurse note. Current Diet Order/ Nutrition Support NPO on 08/05 Pertinent Medications vit C, vit D3, colace, novolog , remeron, theragran, protonix , zinc Pertinent Labs 08/05 Na 134, K 3.6, Cl 102, BUN 77, Cr 4.2, Glucose 216, POC 224-233 08/02 A1c 7.7 Nutritional Hx/Data Height 1.6 m Height (Calculated Centimeters) 160.0 Current Weight (lbs) 87.543 kg Weight (Calculated Kilograms) 87.5 Weight (Calculated Grams) 63292.3 [place] Body Weight 115 Body Mass Index (BMI) 34.2 Weight Status Obese GI Symptoms GI Symptoms None Last BM 08/04 Difficult in: None Skin Integrity/Comment: reddened to left/right inner thigh, right lateral index finger, right/left arm; skin tear to left abdominal fold; pressure area to coccy/sacral Estimated Nutritional Goals BEE in Kcals: Adj wt of IBW Calories/Kcals/Kg 30-35 adj wt 61kg Kcals Calculated 7402-5291 Protein: Adj wt of IBW Protein g/k.2-1.4 Protein Calculated 73-85 Fluid: ml 1830-2135ml (1ml/kcal) Nutritional Problem 1. Problem Problem altered nutrition related lab values Etiology hx of ESRD, endocrine dysfunction Signs/Symptoms: BUN 77, Cr 4.2, Glucose 216, POC 224-233, A1c 7.7 Malnutrition Alert Protein-Calorie Malnutrition N/A Is there a minimum of two criteria No selected? Query Text:Check all the applicable criteria. A minimum of two criteria are recommended for diagnosis of either severe or non-severe malnutrition. Intervention/Recommendation Comments 1. Resume TF Novosource Renal 30ml/hr continuous as ordered. increase to goal rate of 40ml /hr continuous as tolerated. This will provide 1920kcal, 87g protein and 688ml free water, meeting 100% of nutritional needs 2. Monitor TF rate, tolerance, wt weekly, skin integrity and labs 3. F/U as high risk in 2-3 days, 08/07-08/08 Expected Outcomes/Goals Expected Outcomes/Goals 1. Pt to meet at least 75% of nutritional needs via nutrition support with tolerance 2. Wt stability, skin to remain intact, labs to approach WNL.
[2017-08-31] MEDS: INSULIN ASPART SLIDING SCALE 100 UNITS/ML UNIT SUBQ SCH ×4 (00:07→18:07)
[2017-08-31] MEDS: Albuterol/Ipratropium Neb 3 ML AERS HHN SCH ×6 (04:05→23:21)
[2017-08-31 04:49] LABS: % EOSINOPHILS 2.7 % (0.0-5.0); % LYMPHOCYTES 3.8 % (20.0-50.0); % MONOCYTES 7.8 % (2.0-10.0); % NEUTROPHILS 85.7 % (40.0-80.0); EOSINOPHILE ABSOLUTE 0.4 Th/cmm (0.1-0.4); HEMATOCRIT 28.6 % (41.0-60); HEMOGLOBIN 10.1 gm/dL (12-16); LYMPHOCYTE ABSOLUTE 0.5 Th/cmm (1.5-3.0); MEAN CELL VOLUME 96.1 fl (81-100); MEAN CORPUSCULAR HGB CONC 35.4 pg (28.0-36.0); MEAN PLATELET VOLUME 10.6 fl; MONOCYTE ABSOLUTE 1.1 Th/cmm (0.3-1.0); NEUTROPHILE ABSOLUTE 12.2 Th/cmm (1.8-8.0); RED BLOOD COUNT 2.98 Mil/cmm (3.80-5.20); RED CELL DISTRIBUTION WIDTH 15.4 % (11.5-20.0)
[2017-08-31 04:58] LABS: WHITE BLOOD COUNT 14.2 Th/cmm (4.8-10.8)
[2017-08-31 04:59] LABS: PLATELET COUNT 180 Th/cmm (150-400)
[2017-08-31 05:04] LABS: ANION GAP 16.3 (7.0-16.0); BUN - UREA NITROGEN 36 mg/dL (7-25); CALCIUM SERUM 8.1 mg/dL (8.6-10.3); CARBON DIOXIDE 23.8 mEq/L (21.0-31.0); CHLORIDE 98 mEq/L (98-107); CREATININE - SERUM 2.6 mg/dL (0.6-1.2); GLUCOSE 160 mg/dL (70-105); POTASSIUM SERUM 3.1 mEq/L (3.5-5.1); SODIUM SERUM 135 mEq/L (136-145)
[2017-08-31] MEDS: Lactobacillus Rhamnosus GG 15 Billion CFU CAP.SPRINK PO SCH (08:07)
[2017-08-31] MEDS: Multivitamin Tab PO SCH (08:07)
[2017-08-31] MEDS: Aspirin 81mg Chewable Tab PO SCH (08:07)
[2017-08-31] MEDS: Chlorhexidine Gluconate 0.12% 15mL Mouthwash MM SCH ×2 (08:07→21:15)
--- NOTE | 2017-08-31 08:14 | GI Progress Note ---
Subjective - Review of Systems Service Date: 08/31/17 Subjective: GI NOTE Tolerating tube feeds. Stools greenish. Objective - Results Result Diagrams: 08/31/17 04:10 08/31/17 04:10 Recent Labs: Laboratory Last Values WBC 14.2 Th/cmm (4.8-10.8) H D 08/31/17 04:10 Corrected WBC (auto) 13.2 Th/cmm (4.8-10.8) H 08/28/17 06:30 RBC 2.98 Mil/cmm (3.80-5.20) L 08/31/17 04:10 Hgb 10.1 gm/dL (12-16) L 08/31/17 04:10 Hct 28.6 % (41.0-60) L 08/31/17 04:10 MCV 96.1 fl (81-100) 08/31/17 04:10 MCH 34.0 pg (27.0-31.0) H 08/31/17 04:10 MCHC Differential 35.4 pg (28.0-36.0) 08/31/17 04:10 RDW 15.4 % (11.5-20.0) 08/31/17 04:10 Plt Count 180 Th/cmm (150-400) D 08/31/17 04:10 MPV 10.6 fl 08/31/17 04:10 Neutrophils % 85.7 % (40.0-80.0) H 08/31/17 04:10 Band Neutrophils % 4 % (0-10) 08/29/17 04:20 Lymphocytes % 3.8 % (20.0-50.0) L 08/31/17 04:10 Monocytes % 7.8 % (2.0-10.0) 08/31/17 04:10 Eosinophils % 2.7 % (0.0-5.0) 08/31/17 04:10 Basophils % 0.0 % (0.0-2.0) 08/31/17 04:10 Neutrophils (Manual) 68 % (40-80) 08/29/17 04:20 Lymphocytes 14 % (20-50) L 08/29/17 04:20 Monocytes 7 % (2-10) 08/29/17 04:20 Eosinophils 7 % (0-5) H 08/29/17 04:20 Basophils 1 % (0-3) 08/28/17 06:30 Nucleated RBCs 1.0 % (0-0) H 08/29/17 04:20 Hypochromia 1+ 08/02/17 15:37 Platelet Estimate ADEQUATE (NORMAL) 08/28/17 06:30 Platelet Morphology NORMAL (NORMAL) 08/20/17 04:45 Anisocytosis 1+ 08/28/17 06:30 Crenated Cell 2+ 08/02/17 15:37 RBC Morph Micro Appear ABNORMAL (NORMAL) 08/02/17 15:37 PT 11.6 SECONDS (9.5-11.5) H 08/25/17 21:06 INR 1.11 (0.5-1.4) 08/25/17 21:06 PTT (Actin FS) 32.3 SECONDS (26.0-38.0) 08/25/17 21:06 Specimen Source Arterial 08/03/17 08:58 Sample Site Right Radial 08/03/17 08:58 pH 7.42 (7.35-7.45) 08/03/17 08:58 pCO2 37.0 mmHg (35.0-45.0) 08/03/17 08:58 pO2 204.0 mmHg (80.0-100.0) H 08/03/17 08:58 HCO3 24.8 mEq/L (20.0-26.0) 08/03/17 08:58 Base Excess -0.2 mEq/L (-3.0-3.0) 08/03/17 08:58 O2 Saturation 100.0 % (92.0-100.0) 08/03/17 08:58 Rhett Test Positive 08/03/17 08:58 Vent Rate 12 08/03/17 08:58 Inspired O2 60 08/03/17 08:58 Tidal Volume 450 08/03/17 08:58 PEEP 5 08/03/17 08:58 Pressure (ins/psv/peep) NA 08/03/17 08:58 Critical Value LZHANG 08/03/17 08:58 Sodium 135 mEq/L (136-145) L 08/31/17 04:10 Potassium 3.1 mEq/L (3.5-5.1) L 08/31/17 04:10 Chloride 98 mEq/L (98-107) 08/31/17 04:10 Carbon Dioxide 23.8 mEq/L (21.0-31.0) 08/31/17 04:10 Anion Gap 16.3 (7.0-16.0) H 08/31/17 04:10 BUN 36 mg/dL (7-25) H 08/31/17 04:10 Creatinine 2.6 mg/dL (0.6-1.2) H 08/31/17 04:10 Est GFR ( Amer) TNP 08/31/17 04:10 Est GFR (Non-Af Amer) TNP 08/31/17 04:10 BUN/Creatinine Ratio 13.8 08/31/17 04:10 Glucose 160 mg/dL (70-105) H 08/31/17 04:10 POC Glucose 165 MG/DL (70 - 105) H 08/31/17 06:00 Hemoglobin A1c % 7.7 % (4.0-6.0) H 08/02/17 15:37 Whole Bld Lactic Acid 1.97 mmol/L (0.60-1.99) 08/02/17 13:49 Calcium 8.1 mg/dL (8.6-10.3) L 08/31/17 04:10 Magnesium 1.8 mg/dL (1.9-2.7) L 08/28/17 04:20 Iron 10 ug/dL (27-139) L 08/02/17 13:56 TIBC 135 ug/dL (250-450) L 08/02/17 13:56 Iron Saturation 7 % (15-55) L 08/02/17 13:56 Unsaturated IBC 125 ug/dL (118-369) 08/02/17 13:56 Ferritin 588 ng/mL (15-150) H 08/02/17 13:56 Total Bilirubin 0.4 mg/dL (0.3-1.0) 08/26/17 06:05 Direct Bilirubin 0.09 mg/dL (0.0-0.2) 08/02/17 13:57 AST 34 U/L (13-39) 08/26/17 06:05 ALT 14 U/L (7-52) 08/26/17 06:05 Alkaline Phosphatase 70 U/L (34-104) 08/26/17 06:05 Troponin I 0.10 ng/mL (0.01-0.05) H* D 08/20/17 17:00 B-Natriuretic Peptide 839.0 pg/mL (5.0-100.0) H 08/19/17 04:58 Total Protein 6.3 gm/dL (6.0-8.3) 08/26/17 06:05 Albumin 2.7 gm/dL (3.7-5.3) L 08/26/17 06:05 Globulin 3.6 gm/dL 08/26/17 06:05 Albumin/Globulin Ratio 0.8 (1.0-1.8) L 08/26/17 06:05 Triglycerides 132 mg/dL (<150) 08/04/17 06:30 Cholesterol 55 mg/dL (<200) 08/04/17 06:30 LDL Cholesterol Direct 16 mg/dL (75-193) L 08/04/17 06:30 HDL Cholesterol 13 mg/dL (23-92) L 08/04/17 06:30 Amylase 12 U/L (29-103) L 08/02/17 13:43 Lipase 4 U/L (11-82) L 08/02/17 13:43 TSH 3.74 uIU/ml (0.34-5.60) 08/04/17 06:30 Stool Occult Blood POSITIVE (NEGATIVE) H 08/03/17 17:50 Random Vancomycin 34.8 ug/mL (5.0-40.0) 08/31/17 04:10 Hepatitis A IgM Ab Negative (Negative) 08/08/17 08:15 Hep Bs Antigen Negative (Negative) 08/08/17 08:15 Hep B Core IgM Ab Negative (Negative) 08/08/17 08:15 Hepatitis C Antibody <0.1 s/co ratio (0.0-0.9) 08/08/17 08:15 Blood Type A POSITIVE 08/26/17 23:45 Rho(D) Type Cancelled 08/26/17 23:46 Antibody Screen POSITIVE 08/26/17 23:45 Antibody Identification Anti-K 08/24/17 08:30 NEVILLE, IgG Interpret NEGATIVE 08/15/17 07:50 Crossmatch See Detail 08/26/17 23:46 Crossmatch (AHG) Cancelled 08/26/17 23:46 Donor Unit # Cancelled 03/20/18 23:46 BBK History Checked Cancelled 08/26/17 23:46 - Physical Exam Vitals and I&O: Vital Signs Temp 98.1 F 08/31/17 03:00 Pulse 86 08/31/17 07:11 Resp 16 08/31/17 06:00 BP 105/29 08/31/17 06:00 Pulse Ox 97 08/31/17 07:11 Intake & Output 08/30/17 08/31/17 08/31/17 18:59 06:59 18:59 Intake Total 806.408 350 Balance 806.408 350 Weight (lbs) 107.955 kg 107.955 kg Intake: Intake, IV Amount 126.408 50 Norepinephrine 8 mg In 76.408 Sodium Chloride 0.9% 250 ml @ 18 MCG/MIN 34.83 mls /hr IV TITR PRN Rx#: [id number] Piperacillin Sodium/ 50 50 Tazobact 2.25 gm In Sodium Chloride 0.9% 50 ml @ 100 mls/hr IV Q8HR [facility] Rx#:[id number] Tube Feeding 480 Other 200 300 Other: # Voids 0 0 # Bowel Movements 2 2 Stool Characteristics Liquid Liquid Brown Brown Weight Source Bedscale Bedscale Active Medications: Current Medications Acetaminophen (Tylenol) 650 mg GT DAILY [facility] Stop: 10/20/17 08:59 Last Admin: 08/31/17 08:06 Dose: 650 mg Albuterol/Ipratropium (Duoneb Neb) 3 ml HHN Q4HRT [facility] Stop: 10/19/17 10:59 Last Admin: 08/31/17 07:07 Dose: 3 ml Amiodarone HCl (Cordarone) 200 mg GT Q12H [facility] Stop: 10/20/17 10:59 Last Admin: 08/30/17 22:17 Dose: Not Given Ascorbic Acid (Vitamin C) 500 mg PO DAILY [facility] Stop: 10/20/17 08:59 Last Admin: 08/31/17 08:07 Dose: 500 mg Aspirin (Aspirin Chewable) 81 mg PO DAILY [facility] Stop: 10/20/17 08:59 Last Admin: 08/31/17 08:07 Dose: 81 mg Atorvastatin Calcium (Lipitor) 40 mg GT DAILY [facility] PRN Reason: Protocol Stop: 10/20/17 08:59 Last Admin: 08/31/17 08:06 Dose: 40 mg Bisacodyl (Dulcolax 10 Mg Supp) 10 mg RC Q72HR PRN PRN Reason: if MOM ineffective Stop: 10/19/17 11:29 Chlorhexidine Gluconate (Peridex) 15 ml MM 0800,1999 [facility] Stop: 10/19/17 19:59 Last Admin: 08/31/17 08:07 Dose: 15 ml Cholecalciferol (Vitamin D3) 1,000 iu PO DAILY [facility] Stop: 10/20/17 08:59 Last Admin: 08/31/17 08:07 Dose: 1,000 iu Diltiazem HCl (Cardizem) 20 mg IV Q4HR PRN PRN Reason: HR ABOVE 120 Stop: 09/13/17 11:59 Docusate Sodium (Colace) 100 mg PO DAILY [facility] Stop: 10/20/17 08:59 Last Admin: 08/31/17 08:07 Dose: Not Given Dopamine HCl/Dextrose (Dopamine) 400 mg in 250 mls @ 0 mls/hr IV TITR PRN; Protocol; 0 MCG/KG/MIN PRN Reason: BP MAINTENANCE (PER PROTOCOL) Stop: 10/19/17 11:28 Norepinephrine Bitartrate 8 mg (/ Sodium Chloride) 258 mls @ 34.83 mls/hr IV TITR PRN; Protocol; 18 MCG/MIN PRN Reason: BP MAINTENANCE (PER PROTOCOL) Stop: 10/19/17 11:09 Last Titration: 08/30/17 15:20 Dose: 0 mcg/min, 0 mls/hr Piperacillin Sod/Tazobactam (Sod 2.25 gm/ Sodium Chloride) 50 mls @ 100 mls/hr IV Q8HR [facility] Stop: 10/23/17 20:59 Last Admin: 08/31/17 05:36 Dose: 100 mls/hr Phenylephrine HCl 10 mg/ (Sodium Chloride) 250 mls @ 0 mls/hr IV TITR [facility]OUZIA; Per Protocol PRN Reason: Protocol Stop: 10/24/17 10:29 Dextrose (D5w) 1,000 mls @ 20 mls/hr IV .Q24H [facility] Stop: 10/28/17 18:43 Last Admin: 08/29/17 20:55 Dose: 20 mls/hr Insulin Aspart (Novolog Insulin Sliding Scale) 0 units SUBQ Q6HR [facility] PRN Reason: Protocol Stop: 10/19/17 11:59 Last Admin: 03/25/18 06:02 Dose: 2 units Insulin Detemir (Levemir Insulin) 16 units SUBQ HS [facility] PRN Reason: Protocol Stop: 10/19/17 20:59 Last Admin: 08/30/17 21:47 Dose: 16 units Lactobacillus Rhamnosus (Culturelle 15b) 1 each PO DAILY [facility] Stop: 10/20/17 08:59 Last Admin: 08/31/17 08:07 Dose: 1 each Lorazepam (Ativan) 2 mg IVP Q4HR PRN; Protocol PRN Reason: Agitation Stop: 10/15/17 11:49 Last Admin: 08/31/17 08:05 Dose: 2 mg Magnesium Hydroxide (Milk Of Magnesia) 30 ml PO Q72HR PRN PRN Reason: Constipation Stop: 10/19/17 11:44 Midodrine (Proamatine) 10 mg PO BID [facility] Stop: 10/28/17 16:59 Last Admin: 08/31/17 08:06 Dose: 10 mg Mirtazapine (Remeron) 15 mg GT HS [facility] PRN Reason: Protocol Stop: 10/19/17 20:59 Last Admin: 08/30/17 20:10 Dose: 15 mg Miscellaneous (Probiotic Screen) 1 ea MC PRN PRN PRN Reason: PROTOCOL Stop: 10/22/17 10:29 Miscellaneous (Vancomycin Iv Per Pharmacy) 1 ea MC PRN [facility] Stop: 10/23/17 16:59 Multivitamins/Vitamin C (Theragran) 1 tab PO DAILY [facility] Stop: 10/20/17 08:59 Last Admin: 08/31/17 08:07 Dose: 1 tab Ondansetron HCl (Zofran) 4 mg IV Q6H PRN PRN Reason: Nausea / Vomiting Stop: 10/19/17 11:40 Pantoprazole Sodium (Protonix) 40 mg IVP BID [facility] Stop: 10/28/17 16:59 Last Admin: 08/31/17 08:05 Dose: 40 mg Simethicone (Mylicon) 80 mg GT Q6HR PRN PRN Reason: Gas Stop: 10/19/17 11:59 Sodium Phosphate (Fleet Enema) 135 ml RC PRN PRN PRN Reason: If MOM/Dulcolax ineffective Stop: 10/19/17 11:29 Zinc Sulfate (Zinc Sulfate) 220 mg PO DAILY [facility] Stop: 10/20/17 08:59 Last Admin: 08/31/17 08:06 Dose: 220 mg General: No acute distress (scattered rhonchi) HEENT: Atraumatic, Mucous membr. moist/pink Neck: Supple, +2 carotid pulse wo bruit Cardiovascular: Regular rate, Normal S1, Normal S2 Lungs: Other (scattered rhonchi) Abdomen: Bowel sounds, Soft, Other (INTACT GT), no Distended, no Rebound, no Guarding Extremities: Edema (upper wxtrmities), Other (upper ext) Neurological: Sensation intact Skin: no Rash Psych/Mental Status: Mood NL - Procedures Procedures: Procedures Procedure Code Date BLOOD TRANSFUSION SERVICE 69300 08/02/17 EXCISION OF STOMACH, ENDO, DIAGN [id number] 07/10/17 INSPECTION OF LOWER INTESTINAL TRACT, ENDO [id number] 07/10/17 PERFORMANCE OF URINARY FILTRATION, <6 HRS/DAY [id number] 07/10/17 RESPIRATORY VENTILATION, GREATER THAN 96 CONSECUTIVE HOURS [id number] 08/02/17 TRANSFUSE NONAUT RED BLOOD CELLS IN PERIPH VEIN, PERC [id number] 08/02/17 Assessment/Plan - Assessment Assessment: Assessment: # Sepsis # Dysphagia with G tube # GI bleed # Anemia EGD and colonoscopy performed in 07/2017 revealed gastritis and hemorrhoids. SBFT showed delayed transit but no lesion. At that time, it was recommended that the pt have a bleeding scan if she rebled. Now, she is again showed signs of GI bleed on 08/25-, more lower than upper, although brisk upper cannot be ruled out. Bleeding scan on 08/27 did not show active bleed, and her stool has become brown. She may have bled from small bowel source, or from her known hemorrhoids. She was able to get dialysis on 08/27, and I suspect this has helped. Will hold off on further endoscopy given her high risk and previous negative examination unless she rebleeds. Hgb has remained stable. Plan: - Defer repeat EGD/colo for hemostasis purposes only. - PPI bid - CBC cycle throughout the day, transfuse to keep hgb > 7 - cont with HD - tube feeds as tolerated; add water flushes to maintain GT patency.
--- NOTE | 2017-08-31 10:21 | General Progress Note ---
Subjective - Review of Systems Events since last encounter: Tolerating tube feeds. in no acute distress Subjective: still on levophed Objective - Results Result Diagrams: 08/31/17 04:10 08/31/17 04:10 Recent Labs: Laboratory Last Values WBC 14.2 Th/cmm (4.8-10.8) H D 08/31/17 04:10 Corrected WBC (auto) 13.2 Th/cmm (4.8-10.8) H 08/28/17 06:30 RBC 2.98 Mil/cmm (3.80-5.20) L 08/31/17 04:10 Hgb 10.1 gm/dL (12-16) L 08/31/17 04:10 Hct 28.6 % (41.0-60) L 08/31/17 04:10 MCV 96.1 fl (81-100) 08/31/17 04:10 MCH 34.0 pg (27.0-31.0) H 08/31/17 04:10 MCHC Differential 35.4 pg (28.0-36.0) 08/31/17 04:10 RDW 15.4 % (11.5-20.0) 08/31/17 04:10 Plt Count 180 Th/cmm (150-400) D 08/31/17 04:10 MPV 10.6 fl 08/31/17 04:10 Neutrophils % 85.7 % (40.0-80.0) H 08/31/17 04:10 Band Neutrophils % 4 % (0-10) 08/29/17 04:20 Lymphocytes % 3.8 % (20.0-50.0) L 08/31/17 04:10 Monocytes % 7.8 % (2.0-10.0) 08/31/17 04:10 Eosinophils % 2.7 % (0.0-5.0) 08/31/17 04:10 Basophils % 0.0 % (0.0-2.0) 08/31/17 04:10 Neutrophils (Manual) 68 % (40-80) 08/29/17 04:20 Lymphocytes 14 % (20-50) L 08/29/17 04:20 Monocytes 7 % (2-10) 08/29/17 04:20 Eosinophils 7 % (0-5) H 08/29/17 04:20 Basophils 1 % (0-3) 08/28/17 06:30 Nucleated RBCs 1.0 % (0-0) H 08/29/17 04:20 Hypochromia 1+ 08/02/17 15:37 Platelet Estimate ADEQUATE (NORMAL) 08/28/17 06:30 Platelet Morphology NORMAL (NORMAL) 08/20/17 04:45 Anisocytosis 1+ 08/28/17 06:30 Crenated Cell 2+ 08/02/17 15:37 RBC Morph Micro Appear ABNORMAL (NORMAL) 08/02/17 15:37 PT 11.6 SECONDS (9.5-11.5) H 08/25/17 21:06 INR 1.11 (0.5-1.4) 08/25/17 21:06 PTT (Actin FS) 32.3 SECONDS (26.0-38.0) 08/25/17 21:06 Specimen Source Arterial 08/03/17 08:58 Sample Site Right Radial 08/03/17 08:58 pH 7.42 (7.35-7.45) 08/03/17 08:58 pCO2 37.0 mmHg (35.0-45.0) 08/03/17 08:58 pO2 204.0 mmHg (80.0-100.0) H 08/03/17 08:58 HCO3 24.8 mEq/L (20.0-26.0) 08/03/17 08:58 Base Excess -0.2 mEq/L (-3.0-3.0) 08/03/17 08:58 O2 Saturation 100.0 % (92.0-100.0) 08/03/17 08:58 Rhett Test Positive 08/03/17 08:58 Vent Rate 12 08/03/17 08:58 Inspired O2 60 08/03/17 08:58 Tidal Volume 450 08/03/17 08:58 PEEP 5 08/03/17 08:58 Pressure (ins/psv/peep) NA 08/03/17 08:58 Critical Value LZHANG 08/03/17 08:58 Sodium 135 mEq/L (136-145) L 08/31/17 04:10 Potassium 3.1 mEq/L (3.5-5.1) L 08/31/17 04:10 Chloride 98 mEq/L (98-107) 08/31/17 04:10 Carbon Dioxide 23.8 mEq/L (21.0-31.0) 08/31/17 04:10 Anion Gap 16.3 (7.0-16.0) H 08/31/17 04:10 BUN 36 mg/dL (7-25) H 08/31/17 04:10 Creatinine 2.6 mg/dL (0.6-1.2) H 08/31/17 04:10 Est GFR ( Amer) TNP 08/31/17 04:10 Est GFR (Non-Af Amer) TNP 08/31/17 04:10 BUN/Creatinine Ratio 13.8 08/31/17 04:10 Glucose 160 mg/dL (70-105) H 08/31/17 04:10 POC Glucose 165 MG/DL (70 - 105) H 08/31/17 06:00 Hemoglobin A1c % 7.7 % (4.0-6.0) H 08/02/17 15:37 Whole Bld Lactic Acid 1.97 mmol/L (0.60-1.99) 08/02/17 13:49 Calcium 8.1 mg/dL (8.6-10.3) L 08/31/17 04:10 Magnesium 1.8 mg/dL (1.9-2.7) L 08/28/17 04:20 Iron 10 ug/dL (27-139) L 08/02/17 13:56 TIBC 135 ug/dL (250-450) L 08/02/17 13:56 Iron Saturation 7 % (15-55) L 08/02/17 13:56 Unsaturated IBC 125 ug/dL (118-369) 08/02/17 13:56 Ferritin 588 ng/mL (15-150) H 08/02/17 13:56 Total Bilirubin 0.4 mg/dL (0.3-1.0) 08/26/17 06:05 Direct Bilirubin 0.09 mg/dL (0.0-0.2) 08/02/17 13:57 AST 34 U/L (13-39) 08/26/17 06:05 ALT 14 U/L (7-52) 08/26/17 06:05 Alkaline Phosphatase 70 U/L (34-104) 08/26/17 06:05 Troponin I 0.10 ng/mL (0.01-0.05) H* D 08/20/17 17:00 B-Natriuretic Peptide 839.0 pg/mL (5.0-100.0) H 08/19/17 04:58 Total Protein 6.3 gm/dL (6.0-8.3) 08/26/17 06:05 Albumin 2.7 gm/dL (3.7-5.3) L 08/26/17 06:05 Globulin 3.6 gm/dL 08/26/17 06:05 Albumin/Globulin Ratio 0.8 (1.0-1.8) L 08/26/17 06:05 Triglycerides 132 mg/dL (<150) 08/04/17 06:30 Cholesterol 55 mg/dL (<200) 08/04/17 06:30 LDL Cholesterol Direct 16 mg/dL (75-193) L 08/04/17 06:30 HDL Cholesterol 13 mg/dL (23-92) L 08/04/17 06:30 Amylase 12 U/L (29-103) L 08/02/17 13:43 Lipase 4 U/L (11-82) L 08/02/17 13:43 TSH 3.74 uIU/ml (0.34-5.60) 08/04/17 06:30 Stool Occult Blood POSITIVE (NEGATIVE) H 08/03/17 17:50 Random Vancomycin 34.8 ug/mL (5.0-40.0) 08/31/17 04:10 Hepatitis A IgM Ab Negative (Negative) 08/08/17 08:15 Hep Bs Antigen Negative (Negative) 08/08/17 08:15 Hep B Core IgM Ab Negative (Negative) 08/08/17 08:15 Hepatitis C Antibody <0.1 s/co ratio (0.0-0.9) 08/08/17 08:15 Blood Type A POSITIVE 08/26/17 23:45 Rho(D) Type Cancelled 08/26/17 23:46 Antibody Screen POSITIVE 08/26/17 23:45 Antibody Identification Anti-K 08/24/17 08:30 NEVIL[place], IgG Interpret NEGATIVE 08/15/17 07:50 Crossmatch See Detail 08/26/17 23:46 Crossmatch (AHG) Cancelled 08/26/17 23:46 Donor Unit # Cancelled 08/26/17 23:46 BBK History Checked Cancelled 08/26/17 23:46 - Physical Exam Vitals and I&O: Vital Signs Temp 98.1 F 08/31/17 03:00 Pulse 80 08/31/17 09:25 Resp 16 08/31/17 06:00 BP 105/29 08/31/17 06:00 Pulse Ox 100 08/31/17 09:25 Intake & Output 08/30/17 08/31/17 08/31/17 18:59 06:59 18:59 Intake Total 806.408 350 Balance 806.408 350 Weight (lbs) 107.955 kg 107.955 kg Intake: Intake, IV Amount 126.408 50 Norepinephrine 8 mg In 76.408 Sodium Chloride 0.9% 250 ml @ 18 MCG/MIN 34.83 mls /hr IV TITR PRN Rx#: [id number] Piperacillin Sodium/ 50 50 Tazobact 2.25 gm In Sodium Chloride 0.9% 50 ml @ 100 mls/hr IV Q8HR [facility] Rx#:[id number] Tube Feeding 480 Other 200 300 Other: # Voids 0 0 # Bowel Movements 2 2 Stool Characteristics Liquid Liquid Brown Brown Weight Source Bedscale Bedscale Active Medications: Current Medications Acetaminophen (Tylenol) 650 mg GT DAILY [facility] Stop: 10/20/17 08:59 Last Admin: 08/31/17 08:06 Dose: 650 mg Albuterol/Ipratropium (Duoneb Neb) 3 ml HHN Q4HRT [facility] Stop: 10/19/17 10:59 Last Admin: 08/31/17 07:07 Dose: 3 ml Amiodarone HCl (Cordarone) 200 mg GT Q12H [facility] Stop: 10/20/17 10:59 Last Admin: 08/30/17 22:17 Dose: Not Given Ascorbic Acid (Vitamin C) 500 mg PO DAILY [facility] Stop: 10/20/17 08:59 Last Admin: 08/31/17 08:07 Dose: 500 mg Aspirin (Aspirin Chewable) 81 mg PO DAILY [facility] Stop: 10/20/17 08:59 Last Admin: 08/31/17 08:07 Dose: 81 mg Atorvastatin Calcium (Lipitor) 40 mg GT DAILY [facility] PRN Reason: Protocol Stop: 10/20/17 08:59 Last Admin: 08/31/17 08:06 Dose: 40 mg Bisacodyl (Dulcolax 10 Mg Supp) 10 mg RC Q72HR PRN PRN Reason: if MOM ineffective Stop: 10/19/17 11:29 Chlorhexidine Gluconate (Peridex) 15 ml MM 0800,1999 [facility] Stop: 10/19/17 19:59 Last Admin: 08/31/17 08:07 Dose: 15 ml Cholecalciferol (Vitamin D3) 1,000 iu PO DAILY [facility] Stop: 10/20/17 08:59 Last Admin: 08/31/17 08:07 Dose: 1,000 iu Diltiazem HCl (Cardizem) 20 mg IV Q4HR PRN PRN Reason: HR ABOVE 120 Stop: 09/13/17 11:59 Docusate Sodium (Colace) 100 mg PO DAILY [facility] Stop: 10/20/17 08:59 Last Admin: 08/31/17 08:07 Dose: Not Given Dopamine HCl/Dextrose (Dopamine) 400 mg in 250 mls @ 0 mls/hr IV TITR PRN; Protocol; 0 MCG/KG/MIN PRN Reason: BP MAINTENANCE (PER PROTOCOL) Stop: 10/19/17 11:28 Norepinephrine Bitartrate 8 mg (/ Sodium Chloride) 258 mls @ 34.83 mls/hr IV TITR PRN; Protocol; 18 MCG/MIN PRN Reason: BP MAINTENANCE (PER PROTOCOL) Stop: 10/19/17 11:09 Last Titration: 08/30/17 15:20 Dose: 0 mcg/min, 0 mls/hr Piperacillin Sod/Tazobactam (Sod 2.25 gm/ Sodium Chloride) 50 mls @ 100 mls/hr IV Q8HR [facility] Stop: 10/23/17 20:59 Last Admin: 08/31/17 05:36 Dose: 100 mls/hr Phenylephrine HCl 10 mg/ (Sodium Chloride) 250 mls @ 0 mls/hr IV TITR [facility]; Per Protocol PRN Reason: Protocol Stop: 10/24/17 10:29 Dextrose (D5w) 1,000 mls @ 20 mls/hr IV .Q24H [facility] Stop: 10/28/17 18:43 Last Admin: 08/29/17 20:55 Dose: 20 mls/hr Insulin Aspart (Novolog Insulin Sliding Scale) 0 units SUBQ Q6HR [facility] PRN Reason: Protocol Stop: 10/19/17 11:59 Last Admin: 08/31/17 06:02 Dose: 2 units Insulin Detemir (Levemir Insulin) 16 units SUBQ HS [facility] PRN Reason: Protocol Stop: 10/19/17 20:59 Last Admin: 08/30/17 21:47 Dose: 16 units Lactobacillus Rhamnosus (Culturelle 15b) 1 each PO DAILY [facility] Stop: 10/20/17 08:59 Last Admin: 08/31/17 08:07 Dose: 1 each Lorazepam (Ativan) 2 mg IVP Q4HR PRN; Protocol PRN Reason: Agitation Stop: 10/15/17 11:49 Last Admin: 08/31/17 08:05 Dose: 2 mg Magnesium Hydroxide (Milk Of Magnesia) 30 ml PO Q72HR PRN PRN Reason: Constipation Stop: 10/19/17 11:44 Midodrine (Proamatine) 10 mg PO BID [facility] Stop: 10/28/17 16:59 Last Admin: 08/31/17 08:06 Dose: 10 mg Mirtazapine (Remeron) 15 mg GT HS [facility] PRN Reason: Protocol Stop: 10/19/17 20:59 Last Admin: 08/30/17 20:10 Dose: 15 mg Miscellaneous (Probiotic Screen) 1 ea MC PRN PRN PRN Reason: PROTOCOL Stop: 10/22/17 10:29 Miscellaneous (Vancomycin Iv Per Pharmacy) 1 ea MC PRN [facility] Stop: 10/23/17 16:59 Multivitamins/Vitamin C (Theragran) 1 tab PO DAILY [facility] Stop: 10/20/17 08:59 Last Admin: 08/31/17 08:07 Dose: 1 tab Ondansetron HCl (Zofran) 4 mg IV Q6H PRN PRN Reason: Nausea / Vomiting Stop: 10/19/17 11:40 Pantoprazole Sodium (Protonix) 40 mg IVP BID [facility] Stop: 10/28/17 16:59 Last Admin: 08/31/17 08:05 Dose: 40 mg Simethicone (Mylicon) 80 mg GT Q6HR PRN PRN Reason: Gas Stop: 10/19/17 11:59 Sodium Phosphate (Fleet Enema) 135 ml RC PRN PRN PRN Reason: If MOM/Dulcolax ineffective Stop: 10/19/17 11:29 Zinc Sulfate (Zinc Sulfate) 220 mg PO DAILY [facility] Stop: 10/20/17 08:59 Last Admin: 08/31/17 08:06 Dose: 220 mg General: No acute distress (scattered rhonchi) HEENT: Atraumatic, Mucous membr. moist/pink Neck: Supple, +2 carotid pulse wo bruit Cardiovascular: Regular rate, Normal S1, Normal S2 Lungs: Other (scattered rhonchi) Abdomen: Bowel sounds, Soft, Other (INTACT GT), no Distended, no Rebound, no Guarding Extremities: Edema (upper wxtrmities), Other (upper ext) Neurological: Sensation intact Skin: no Rash Psych/Mental Status: Mood NL - Procedures Procedures: Procedures Procedure Code Date BLOOD TRANSFUSION SERVICE 75149 08/02/17 EXCISION OF STOMACH, ENDO, DIAGN [id number] 07/10/17 INSPECTION OF LOWER INTESTINAL TRACT, ENDO [id number] 07/10/17 PERFORMANCE OF URINARY FILTRATION, <6 HRS/DAY 9M3H07V 07/10/17 RESPIRATORY VENTILATION, GREATER THAN 96 CONSECUTIVE HOURS [id number] 08/02/17 TRANSFUSE NONAUT RED BLOOD CELLS IN PERIPH VEIN, PERC [id number] 08/02/17 Nutritional Asmnt/Malnutr-PDOC - Dietary Evaluation Malnutrition Findings (Please click <Entered> for more info): Nutritional Asmnt/Malnutrition Start: 08/05/17 15: 53 Text: Status: Complete Freq: Document 08/05/17 15:53 [facility] (Rec: 08/05/17 16:[address] [id number] Nutritional Asmnt/Malnutrition Patient General Information Nutritional Screening High Risk Diagnosis sepsis, respiratory failure, ESRD Pertinent Medical Hx/Surgical Hx ESRD on HD, respiratory failure with tracheostomy, dysphagia, a fib, anemia, HTN, GERD Subjective Information Pt on vent, not able to interview. Pt was on TF Novosource Renal 30ml/hr continuous, NPO today for surgery. Pt has dialysis ordred per nurse note. Current Diet Order/ Nutrition Support NPO on 08/05 Pertinent Medications vit C, vit D3, colace, novolog , remeron, theragran, protonix , zinc Pertinent Labs 08/05 Na 134, K 3.6, Cl 102, BUN 77, Cr 4.2, Glucose 216, POC 224-233 08/02 A1c 7.7 Nutritional Hx/Data Height 1.6 m Height (Calculated Centimeters) 160.0 Current Weight (lbs) 87.543 kg Weight (Calculated Kilograms) 87.5 Weight (Calculated Grams) 36448.3 [place] Body Weight 115 Body Mass Index (BMI) 34.2 Weight Status Obese GI Symptoms GI Symptoms None Last BM 08/04 Difficult in: None Skin Integrity/Comment: reddened to left/right inner thigh, right lateral index finger, right/left arm; skin tear to left abdominal fold; pressure area to coccy/sacral Estimated Nutritional Goals BEE in Kcals: Adj wt of IBW Calories/Kcals/Kg 30-35 adj wt 61kg Kcals Calculated 0684-4250 Protein: Adj wt of IBW Protein g/k.2-1.4 Protein Calculated 73-85 Fluid: ml 1830-2135ml (1ml/kcal) Nutritional Problem 1. Problem Problem altered nutrition related lab values Etiology hx of ESRD, endocrine dysfunction Signs/Symptoms: BUN 77, Cr 4.2, Glucose 216, POC 224-233, A1c 7.7 Malnutrition Alert Protein-Calorie Malnutrition N/A Is there a minimum of two criteria No selected? Query Text:Check all the applicable criteria. A minimum of two criteria are recommended for diagnosis of either severe or non-severe malnutrition. Intervention/Recommendation Comments 1. Resume TF Novosource Renal 30ml/hr continuous as ordered. increase to goal rate of 40ml /hr continuous as tolerated. This will provide 1920kcal, 87g protein and 688ml free water, meeting 100% of nutritional needs 2. Monitor TF rate, tolerance, wt weekly, skin integrity and labs 3. F/U as high risk in 2-3 days, 08/07-08/08 Expected Outcomes/Goals Expected Outcomes/Goals 1. Pt to meet at least 75% of nutritional needs via nutrition support with tolerance 2. Wt stability, skin to remain intact, labs to approach WNL.
[2017-08-31] MEDS ORDERED: Potassium Chloride Elixir 20 mEq /15 mL UDC GT ONE (10:54)
[2017-08-31] MEDS ORDERED: Albumin 25% 25gm/100mL 25 GM/100 ML BTL IV ONE ×2 (15:46)
[2017-08-31] MEDS ORDERED: Albumin 25% 25gm/100mL 50 GM/200 ML BTL IV ONE (15:48)
--- NOTE | 2017-08-31 16:52 | General Progress Note ---
Subjective - Review of Systems Service Date: 08/31/17 Subjective: very awake, talking, on vent Objective - Results Result Diagrams: 08/31/17 04:10 08/31/17 04:10 Recent Labs: Laboratory Last Values WBC 14.2 Th/cmm (4.8-10.8) H D 08/31/17 04:10 Corrected WBC (auto) 13.2 Th/cmm (4.8-10.8) H 08/28/17 06:30 RBC 2.98 Mil/cmm (3.80-5.20) L 08/31/17 04:10 Hgb 10.1 gm/dL (12-16) L 08/31/17 04:10 Hct 28.6 % (41.0-60) L 08/31/17 04:10 MCV 96.1 fl (81-100) 08/31/17 04:10 MCH 34.0 pg (27.0-31.0) H 08/31/17 04:10 MCHC Differential 35.4 pg (28.0-36.0) 08/31/17 04:10 RDW 15.4 % (11.5-20.0) 08/31/17 04:10 Plt Count 180 Th/cmm (150-400) D 08/31/17 04:10 MPV 10.6 fl 08/31/17 04:10 Neutrophils % 85.7 % (40.0-80.0) H 08/31/17 04:10 Band Neutrophils % 4 % (0-10) 08/29/17 04:20 Lymphocytes % 3.8 % (20.0-50.0) L 08/31/17 04:10 Monocytes % 7.8 % (2.0-10.0) 08/31/17 04:10 Eosinophils % 2.7 % (0.0-5.0) 08/31/17 04:10 Basophils % 0.0 % (0.0-2.0) 08/31/17 04:10 Neutrophils (Manual) 68 % (40-80) 08/29/17 04:20 Lymphocytes 14 % (20-50) L 08/29/17 04:20 Monocytes 7 % (2-10) 08/29/17 04:20 Eosinophils 7 % (0-5) H 08/29/17 04:20 Basophils 1 % (0-3) 08/28/17 06:30 Nucleated RBCs 1.0 % (0-0) H 08/29/17 04:20 Hypochromia 1+ 08/02/17 15:37 Platelet Estimate ADEQUATE (NORMAL) 08/28/17 06:30 Platelet Morphology NORMAL (NORMAL) 08/20/17 04:45 Anisocytosis 1+ 08/28/17 06:30 Crenated Cell 2+ 08/02/17 15:37 RBC Morph Micro Appear ABNORMAL (NORMAL) 08/02/17 15:37 PT 11.6 SECONDS (9.5-11.5) H 08/25/17 21:06 INR 1.11 (0.5-1.4) 08/25/17 21:06 PTT (Actin FS) 32.3 SECONDS (26.0-38.0) 08/25/17 21:06 Specimen Source Arterial 08/03/17 08:58 Sample Site Right Radial 08/03/17 08:58 pH 7.42 (7.35-7.45) 08/03/17 08:58 pCO2 37.0 mmHg (35.0-45.0) 08/03/17 08:58 pO2 204.0 mmHg (80.0-100.0) H 08/03/17 08:58 HCO3 24.8 mEq/L (20.0-26.0) 08/03/17 08:58 Base Excess -0.2 mEq/L (-3.0-3.0) 08/03/17 08:58 O2 Saturation 100.0 % (92.0-100.0) 08/03/17 08:58 Rhett Test Positive 08/03/17 08:58 Vent Rate 12 08/03/17 08:58 Inspired O2 60 08/03/17 08:58 Tidal Volume 450 08/03/17 08:58 PEEP 5 08/03/17 08:58 Pressure (ins/psv/peep) NA 08/03/17 08:58 Critical Value LZHANG 08/03/17 08:58 Sodium 135 mEq/L (136-145) L 08/31/17 04:10 Potassium 3.1 mEq/L (3.5-5.1) L 08/31/17 04:10 Chloride 98 mEq/L (98-107) 08/31/17 04:10 Carbon Dioxide 23.8 mEq/L (21.0-31.0) 08/31/17 04:10 Anion Gap 16.3 (7.0-16.0) H 08/31/17 04:10 BUN 36 mg/dL (7-25) H 08/31/17 04:10 Creatinine 2.6 mg/dL (0.6-1.2) H 08/31/17 04:10 Est GFR ( Amer) TNP 08/31/17 04:10 Est GFR (Non-Af Amer) TNP 08/31/17 04:10 BUN/Creatinine Ratio 13.8 08/31/17 04:10 Glucose 160 mg/dL (70-105) H 08/31/17 04:10 POC Glucose 99 MG/DL (70 - 105) 08/31/17 12:01 Hemoglobin A1c % 7.7 % (4.0-6.0) H 08/02/17 15:37 Whole Bld Lactic Acid 1.97 mmol/L (0.60-1.99) 08/02/17 13:49 Calcium 8.1 mg/dL (8.6-10.3) L 08/31/17 04:10 Magnesium 1.8 mg/dL (1.9-2.7) L 08/28/17 04:20 Iron 10 ug/dL (27-139) L 08/02/17 13:56 TIBC 135 ug/dL (250-450) L 08/02/17 13:56 Iron Saturation 7 % (15-55) L 08/02/17 13:56 Unsaturated IBC 125 ug/dL (118-369) 08/02/17 13:56 Ferritin 588 ng/mL (15-150) H 08/02/17 13:56 Total Bilirubin 0.4 mg/dL (0.3-1.0) 08/26/17 06:05 Direct Bilirubin 0.09 mg/dL (0.0-0.2) 08/02/17 13:57 AST 34 U/L (13-39) 08/26/17 06:05 ALT 14 U/L (7-52) 08/26/17 06:05 Alkaline Phosphatase 70 U/L (34-104) 08/26/17 06:05 Troponin I 0.10 ng/mL (0.01-0.05) H* D 08/20/17 17:00 B-Natriuretic Peptide 839.0 pg/mL (5.0-100.0) H 08/19/17 04:58 Total Protein 6.3 gm/dL (6.0-8.3) 08/26/17 06:05 Albumin 2.7 gm/dL (3.7-5.3) L 08/26/17 06:05 Globulin 3.6 gm/dL 08/26/17 06:05 Albumin/Globulin Ratio 0.8 (1.0-1.8) L 08/26/17 06:05 Triglycerides 132 mg/dL (<150) 08/04/17 06:30 Cholesterol 55 mg/dL (<200) 08/04/17 06:30 LDL Cholesterol Direct 16 mg/dL (75-193) L 08/04/17 06:30 HDL Cholesterol 13 mg/dL (23-92) L 08/04/17 06:30 Amylase 12 U/L (29-103) L 08/02/17 13:43 Lipase 4 U/L (11-82) L 08/02/17 13:43 TSH 3.74 uIU/ml (0.34-5.60) 08/04/17 06:30 Stool Occult Blood POSITIVE (NEGATIVE) H 08/03/17 17:50 Random Vancomycin 34.8 ug/mL (5.0-40.0) 08/31/17 04:10 Hepatitis A IgM Ab Negative (Negative) 08/08/17 08:15 Hep Bs Antigen Negative (Negative) 08/08/17 08:15 Hep B Core IgM Ab Negative (Negative) 08/08/17 08:15 Hepatitis C Antibody <0.1 s/co ratio (0.0-0.9) 08/08/17 08:15 Blood Type A POSITIVE 08/26/17 23:45 Rho(D) Type Cancelled 08/26/17 23:46 Antibody Screen POSITIVE 08/26/17 23:45 Antibody Identification Anti-K 08/24/17 08:30 NEVILLE, IgG Interpret NEGATIVE 08/15/17 07:50 Crossmatch See Detail 08/26/17 23:46 Crossmatch (AHG) Cancelled 08/26/17 23:46 Donor Unit # Cancelled 08/26/17 23:46 BBK History Checked Cancelled 08/26/17 23:46 - Physical Exam Vitals and I&O: Vital Signs Temp 96.7 F 08/31/17 16:00 Pulse 73 08/31/17 16:00 Resp 16 08/31/17 16:00 BP 114/88 08/31/17 16:00 Pulse Ox 98 08/31/17 16:00 Intake & Output 08/30/17 08/31/17 08/31/17 18:59 06:59 18:59 Intake Total 806.408 400 50 Balance 806.408 400 50 Weight (lbs) 107.955 kg 107.955 kg Intake: Intake, IV Amount 126.408 100 50 Norepinephrine 8 mg In 76.408 Sodium Chloride 0.9% 250 ml @ 18 MCG/MIN 34.83 mls /hr IV TITR PRN Rx#: [id number] Piperacillin Sodium/ 50 100 50 Tazobact 2.25 gm In Sodium Chloride 0.9% 50 ml @ 100 mls/hr IV Q8HR [facility] Rx#:[id number] Tube Feeding 480 Other 200 300 Other: # Voids 0 0 # Bowel Movements 2 2 Stool Characteristics Liquid Liquid Brown Brown Weight Source Bedscale Bedscale Active Medications: Current Medications Acetaminophen (Tylenol) 650 mg GT DAILY [facility] Stop: 10/20/17 08:59 Last Admin: 08/31/17 08:06 Dose: 650 mg Albuterol/Ipratropium (Duoneb Neb) 3 ml HHN Q4HRT [facility] Stop: 10/19/17 10:59 Last Admin: 08/31/17 15:14 Dose: 3 ml Amiodarone HCl (Cordarone) 200 mg GT Q12H [facility] Stop: 10/20/17 10:59 Last Admin: 08/31/17 12:02 Dose: 200 mg Ascorbic Acid (Vitamin C) 500 mg PO DAILY [facility] Stop: 10/20/17 08:59 Last Admin: 08/31/17 08:07 Dose: 500 mg Aspirin (Aspirin Chewable) 81 mg PO DAILY [facility] Stop: 10/20/17 08:59 Last Admin: 08/31/17 08:07 Dose: 81 mg Atorvastatin Calcium (Lipitor) 40 mg GT DAILY [facility] PRN Reason: Protocol Stop: 10/20/17 08:59 Last Admin: 08/31/17 08:06 Dose: 40 mg Bisacodyl (Dulcolax 10 Mg Supp) 10 mg RC Q72HR PRN PRN Reason: if MOM ineffective Stop: 10/19/17 11:29 Chlorhexidine Gluconate (Peridex) 15 ml MM 0800,1999 [facility] Stop: 10/19/17 19:59 Last Admin: 08/31/17 08:07 Dose: 15 ml Cholecalciferol (Vitamin D3) 1,000 iu PO DAILY [facility] Stop: 10/20/17 08:59 Last Admin: 08/31/17 08:07 Dose: 1,000 iu Diltiazem HCl (Cardizem) 20 mg IV Q4HR PRN PRN Reason: HR ABOVE 120 Stop: 09/13/17 11:59 Docusate Sodium (Colace) 100 mg PO DAILY [facility] Stop: 10/20/17 08:59 Last Admin: 08/31/17 08:07 Dose: Not Given Dopamine HCl/Dextrose (Dopamine) 400 mg in 250 mls @ 0 mls/hr IV TITR PRN; Protocol; 0 MCG/KG/MIN PRN Reason: BP MAINTENANCE (PER PROTOCOL) Stop: 10/19/17 11:28 Norepinephrine Bitartrate 8 mg (/ Sodium Chloride) 258 mls @ 34.83 mls/hr IV TITR PRN; Protocol; 18 MCG/MIN PRN Reason: BP MAINTENANCE (PER PROTOCOL) Stop: 10/19/17 11:09 Last Titration: 08/30/17 15:20 Dose: 0 mcg/min, 0 mls/hr Piperacillin Sod/Tazobactam (Sod 2.25 gm/ Sodium Chloride) 50 mls @ 100 mls/hr IV Q8HR [facility] Stop: 10/23/17 20:59 Last Infusion: 08/31/17 12:30 Dose: Infused Phenylephrine HCl 10 mg/ (Sodium Chloride) 250 mls @ 0 mls/hr IV TITR [facility]; Per Protocol PRN Reason: Protocol Stop: 10/24/17 10:29 Dextrose (D5w) 1,000 mls @ 20 mls/hr IV .Q24H [facility] Stop: 10/28/17 18:43 Last Admin: 08/29/17 20:55 Dose: 20 mls/hr Albumin Human (Albuminar 25%) 25 gm in 100 mls @ 50 mls/hr IV X1 ONE Stop: 08/31/17 17:45 Albumin Human (Albuminar 25%) 25 gm in 100 mls @ 50 mls/hr IV X1 ONE Stop: 08/31/17 17:45 Insulin Aspart (Novolog Insulin Sliding Scale) 0 units SUBQ Q6HR [facility] PRN Reason: Protocol Stop: 10/19/17 11:59 Last Admin: 08/31/17 12:03 Dose: Not Given Insulin Detemir (Levemir Insulin) 16 units SUBQ HS [facility] PRN Reason: Protocol Stop: 10/19/17 20:59 Last Admin: 08/30/17 21:47 Dose: 16 units Lactobacillus Rhamnosus (Culturelle 15b) 1 each PO DAILY [facility] Stop: 10/20/17 08:59 Last Admin: 08/31/17 08:07 Dose: 1 each Lorazepam (Ativan) 2 mg IVP Q4HR PRN; Protocol PRN Reason: Agitation Stop: 10/15/17 11:49 Last Admin: 08/31/17 14:38 Dose: 2 mg Magnesium Hydroxide (Milk Of Magnesia) 30 ml PO Q72HR PRN PRN Reason: Constipation Stop: 10/19/17 11:44 Midodrine (Proamatine) 10 mg PO BID [facility] Stop: 10/28/17 16:59 Last Admin: 08/31/17 08:06 Dose: 10 mg Mirtazapine (Remeron) 15 mg GT HS [facility] PRN Reason: Protocol Stop: 10/19/17 20:59 Last Admin: 08/30/17 20:10 Dose: 15 mg Miscellaneous (Probiotic Screen) 1 ea MC PRN PRN PRN Reason: PROTOCOL Stop: 10/22/17 10:29 Miscellaneous (Vancomycin Iv Per Pharmacy) 1 ea MC PRN [facility] Stop: 10/23/17 16:59 Multivitamins/Vitamin C (Theragran) 1 tab PO DAILY [facility] Stop: 10/20/17 08:59 Last Admin: 08/31/17 08:07 Dose: 1 tab Ondansetron HCl (Zofran) 4 mg IV Q6H PRN PRN Reason: Nausea / Vomiting Stop: 10/19/17 11:40 Pantoprazole Sodium (Protonix) 40 mg IVP BID [facility] Stop: 10/28/17 16:59 Last Admin: 08/31/17 08:05 Dose: 40 mg Simethicone (Mylicon) 80 mg GT Q6HR PRN PRN Reason: Gas Stop: 10/19/17 11:59 Sodium Phosphate (Fleet Enema) 135 ml RC PRN PRN PRN Reason: If MOM/Dulcolax ineffective Stop: 10/19/17 11:29 Zinc Sulfate (Zinc Sulfate) 220 mg PO DAILY [facility] Stop: 10/20/17 08:59 Last Admin: 08/31/17 08:06 Dose: 220 mg General: Alert, No acute distress (scattered rhonchi) HEENT: Atraumatic, Mucous membr. moist/pink Neck: Supple, +2 carotid pulse wo bruit Cardiovascular: Regular rate, Normal S1, Normal S2 Lungs: Other (scattered rhonchi) Abdomen: Bowel sounds, Soft, Other (INTACT GT), no Distended, no Rebound, no Guarding Extremities: Edema (upper wxtrmities), Other (upper ext) Neurological: Sensation intact Skin: no Rash Psych/Mental Status: Mood NL - Procedures Procedures: Procedures Procedure Code Date BLOOD TRANSFUSION SERVICE 08415 08/02/17 EXCISION OF STOMACH, ENDO, DIAGN [id number] 07/10/17 INSPECTION OF LOWER INTESTINAL TRACT, ENDO [id number] 07/10/17 PERFORMANCE OF URINARY FILTRATION, <6 HRS/DAY [id number] 07/10/17 RESPIRATORY VENTILATION, GREATER THAN 96 CONSECUTIVE HOURS [id number] 08/02/17 TRANSFUSE NONAUT RED BLOOD CELLS IN PERIPH VEIN, PERC 64750P6 08/02/17 Assessment/Plan - Assessment Assessment: 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/L UE Edema, Cellulitis Shock Sepsis RF on Vent Acute on Chronic Decomp CHF G (-) Septicemia A. fib to V. tach Severe acute anemia 2/2 GI bleed? - Plan Plan: Lab - Result Diagrams 08/04/17 06:30 08/04/17 06:30 Current Medications Acetaminophen (Tylenol 650mg/20.3ml Suspension) 650 mg GT DAILY [facility] Stop: 10/03/17 08:59 Last Admin: 08/04/17 09:18 Dose: 650 mg Albuterol/Ipratropium (Duoneb Neb) 3 ml HHN Q4HRT [facility] Stop: 10/02/17 10:59 Last Admin: 08/04/17 11:25 Dose: 3 ml Ascorbic Acid (Vitamin C) 500 mg PO DAILY [facility] Stop: 10/03/17 08:59 Last Admin: 08/04/17 09:18 Dose: 500 mg Aspirin (Aspirin Chewable) 81 mg GT DAILY [facility] Stop: 10/03/17 08:59 Last Admin: 08/04/17 09:18 Dose: 81 mg Atorvastatin Calcium (Lipitor) 40 mg GT HS [facility] PRN Reason: Protocol Stop: 10/02/17 20:59 Last Admin: 08/03/17 20:19 Dose: 40 mg Bisacodyl (Dulcolax 10 Mg Supp) 10 mg RC Q72HR PRN PRN Reason: IF MOM INEFFECTIVE Stop: 10/02/17 14:13 Bisacodyl (Dulcolax 10 Mg Supp) 10 mg RC PRN PRN PRN Reason: IF MOM INEFFECTIVE Stop: 10/02/17 14:13 Chlorhexidine Gluconate (Peridex) 15 ml MM 0800,1999 [facility] Stop: 10/02/17 07:59 Last Admin: 08/04/17 08:00 Dose: 15 ml Cholecalciferol (Vitamin D3) 1,000 iu GT DAILY [facility] Stop: 10/03/17 08:59 Last Admin: 08/04/17 09:18 Dose: 1,000 iu Diltiazem HCl (Cardizem) 5 mg IVP Q4H PRN PRN Reason: INCREASE HEART RATE Stop: 10/01/17 21:59 Last Admin: 08/03/17 01:38 Dose: 5 mg Docusate Sodium (Colace) 100 mg PO DAILY [facility] Stop: 10/03/17 08:59 Last Admin: 08/04/17 09:18 Dose: 100 mg Heparin Sodium (Porcine) (Heparin) 5,000 units HD UD [facility] Stop: 08/05/17 08:59 Last Admin: 08/04/17 09:19 Dose: Not Given Fluconazole (Diflucan) 200 mg in 100 mls @ 100 mls/hr IV Q24HR [facility] Stop: 10/02/17 14:59 Last Infusion: 08/03/17 15:40 Dose: Infused Meropenem 500 mg/ Sodium (Chloride) 100 mls @ 100 mls/hr IV Q24H [facility] Stop: 10/02/17 12:59 Last Admin: 08/04/17 13:17 Dose: 100 mls/hr Dopamine HCl/Dextrose (Dopamine) 400 mg in 250 mls @ 0 mls/hr IV TITR PRN; Protocol; Per Protocol PRN Reason: BP MAINTENANCE (PER PROTOCOL) Stop: 10/02/17 07:47 Norepinephrine Bitartrate 4 mg (/ Dextrose) 254 mls @ 0 mls/hr IV TITR PRN; Protocol; Per Protocol PRN Reason: BP MAINTENANCE (PER PROTOCOL) Stop: 10/02/17 08:31 Last Admin: 08/03/17 23:47 Dose: 4 mcg/min, 15.24 mls/hr Colistimethate Sodium 80 mg/ (Sodium Chloride) 100 mls @ 100 mls/hr IV Q36H [facility] Stop: 10/02/17 20:59 Last Infusion: 08/03/17 21:20 Dose: Infused Insulin Aspart (Novolog Insulin Sliding Scale) 0 units SUBQ Q6HR [facility] PRN Reason: Protocol Stop: 10/02/17 00:00 Last Admin: 08/04/17 11:30 Dose: 6 units Lorazepam (Ativan) 1 mg IVP Q2HR PRN; Protocol PRN Reason: Restlessness Stop: 10/01/17 21:18 Last Admin: 08/04/17 01:05 Dose: 1 mg Magnesium Hydroxide (Milk Of Magnesia) 30 ml GT Q72H PRN PRN Reason: NO BM FOR THREE DAYS Stop: 10/02/17 14:13 Mirtazapine (Remeron) 15 mg GT HS [facility] PRN Reason: Protocol Stop: 10/02/17 20:59 Last Admin: 08/03/17 20:19 Dose: 15 mg Miscellaneous (Vancomycin Iv Per Pharmacy) 1 ea PRN PRN PRN Reason: PROTOCOL Stop: 10/01/17 20:42 Miscellaneous (Zosyn Iv Per Pharmacy) 1 ea MC PRN PRN PRN Reason: PROTOCOL Stop: 10/01/17 20:42 Multivitamins/Vitamin C (Theragran) 1 tab PO DAILY [facility] Stop: 10/03/17 08:59 Last Admin: 08/04/17 09:18 Dose: 1 tab Ondansetron HCl (Zofran Odt) 4 mg PO Q6HR PRN PRN Reason: Nausea / Vomiting Stop: 10/02/17 14:13 Pantoprazole Sodium (Protonix) 40 mg IVP DAILY [facility] Stop: 10/02/17 08:59 Last Admin: 08/04/17 09:18 Dose: 40 mg Simethicone (Mylicon) 80 mg GT Q6H PRN PRN Reason: GAS PAIN Stop: 10/02/17 14:13 Sodium Phosphate (Fleet Enema) 118 ml RC PRN PRN PRN Reason: IF MOM/DULCOLAX INEFFECTIVE Stop: 10/02/17 14:13 Temazepam (Restoril) 15 mg GT HS PRN; Protocol PRN Reason: Insomnia Stop: 10/02/17 14:13 Last Admin: 08/03/17 20:19 Dose: 15 mg Zinc Sulfate (Zinc Sulfate) 220 mg GT DAILY [facility] Stop: 10/03/17 08:59 Last Admin: 08/04/17 09:18 Dose: 220 Lab - Result Diagrams 08/31/17 04:10 08/31/17 04:10 for dialysis today because BUN/CR up to 36/2.6 CXR still showed persistent b/l effusions, CHF, left > right replace K f/u electrolytes. cbc now off Levo BS low, monitor closely, hold Levemir, continue S/S wbc down to 10.3 if left AVF clotted request placement of sandor cath bleed scan neg BUN/CR now 11/07? but remains anuric; monitor closely & hold dialysis Nutritional Asmnt/Malnutr-PDOC - Dietary Evaluation Malnutrition Findings (Please click <Entered> for more info): Nutritional Asmnt/Malnutrition Start: 08/05/17 15: 53 Text: Status: Complete Freq: Document 08/05/17 15:53 NAVIN (Rec: 08/05/17 16:19 [facility] Nutritional Asmnt/Malnutrition Patient General Information Nutritional Screening High Risk Diagnosis sepsis, respiratory failure, ESRD Pertinent Medical Hx/Surgical Hx ESRD on HD, respiratory failure with tracheostomy, dysphagia, a fib, anemia, HTN, GERD Subjective Information Pt on vent, not able to interview. Pt was on TF Novosource Renal 30ml/hr continuous, NPO today for surgery. Pt has dialysis ordred per nurse note. Current Diet Order/ Nutrition Support NPO on 08/05 Pertinent Medications vit C, vit D3, colace, novolog , remeron, theragran, protonix , zinc Pertinent Labs 08/05 Na 134, K 3.6, Cl 102, BUN 77, Cr 4.2, Glucose 216, POC 224-233 08/02 A1c 7.7 Nutritional Hx/Data Height 1.6 m Height (Calculated Centimeters) 160.0 Current Weight (lbs) 87.543 kg Weight (Calculated Kilograms) 87.5 Weight (Calculated Grams) 57128.3 [place] Body Weight 115 Body Mass Index (BMI) 34.2 Weight Status Obese GI Symptoms GI Symptoms None Last BM 08/04 Difficult in: None Skin Integrity/Comment: reddened to left/right inner thigh, right lateral index finger, right/left arm; skin tear to left abdominal fold; pressure area to coccy/sacral Estimated Nutritional Goals BEE in Kcals: Adj wt of IBW Calories/Kcals/Kg 30-35 adj wt 61kg Kcals Calculated 4737-8460 Protein: Adj wt of IBW Protein g/k.2-1.4 Protein Calculated 73-85 Fluid: ml 1830-2135ml (1ml/kcal) Nutritional Problem 1. Problem Problem altered nutrition related lab values Etiology hx of ESRD, endocrine dysfunction Signs/Symptoms: BUN 77, Cr 4.2, Glucose 216, POC 224-233, A1c 7.7 Malnutrition Alert Protein-Calorie Malnutrition N/A Is there a minimum of two criteria No selected? Query Text:Check all the applicable criteria. A minimum of two criteria are recommended for diagnosis of either severe or non-severe malnutrition. Intervention/Recommendation Comments 1. Resume TF Novosource Renal 30ml/hr continuous as ordered. increase to goal rate of 40ml /hr continuous as tolerated. This will provide 1920kcal, 87g protein and 688ml free water, meeting 100% of nutritional needs 2. Monitor TF rate, tolerance, wt weekly, skin integrity and labs 3. F/U as high risk in 2-3 days, 08/07-08/08 Expected Outcomes/Goals Expected Outcomes/Goals 1. Pt to meet at least 75% of nutritional needs via nutrition support with tolerance 2. Wt stability, skin to remain intact, labs to approach WNL.
[2017-08-31] MEDS: Insulin Detemir 100 units/mL 10mL Vial SUBQ SCH (21:17)
--- NOTE | 2017-08-31 23:29 | Infectious Disease Prog Note ---
Infectious Disease Subjective - Review of Systems Service Date: 08/31/17 Subjective: no fever. Off levophed . Infectious Disease Objective - Results Result Diagrams: 08/31/17 04:10 08/31/17 04:10 Recent Labs: Laboratory Last Values WBC 14.2 Th/cmm (4.8-10.8) H D 08/31/17 04:10 Corrected WBC (auto) 13.2 Th/cmm (4.8-10.8) H 08/28/17 06:30 RBC 2.98 Mil/cmm (3.80-5.20) L 08/31/17 04:10 Hgb 10.1 gm/dL (12-16) L 08/31/17 04:10 Hct 28.6 % (41.0-60) L 08/31/17 04:10 MCV 96.1 fl (81-100) 08/31/17 04:10 MCH 34.0 pg (27.0-31.0) H 08/31/17 04:10 MCHC Differential 35.4 pg (28.0-36.0) 08/31/17 04:10 RDW 15.4 % (11.5-20.0) 08/31/17 04:10 Plt Count 180 Th/cmm (150-400) D 08/31/17 04:10 MPV 10.6 fl 08/31/17 04:10 Neutrophils % 85.7 % (40.0-80.0) H 08/31/17 04:10 Band Neutrophils % 4 % (0-10) 08/29/17 04:20 Lymphocytes % 3.8 % (20.0-50.0) L 08/31/17 04:10 Monocytes % 7.8 % (2.0-10.0) 08/31/17 04:10 Eosinophils % 2.7 % (0.0-5.0) 08/31/17 04:10 Basophils % 0.0 % (0.0-2.0) 08/31/17 04:10 Neutrophils (Manual) 68 % (40-80) 08/29/17 04:20 Lymphocytes 14 % (20-50) L 08/29/17 04:20 Monocytes 7 % (2-10) 08/29/17 04:20 Eosinophils 7 % (0-5) H 08/29/17 04:20 Basophils 1 % (0-3) 08/28/17 06:30 Nucleated RBCs 1.0 % (0-0) H 08/29/17 04:20 Hypochromia 1+ 08/02/17 15:37 Platelet Estimate ADEQUATE (NORMAL) 08/28/17 06:30 Platelet Morphology NORMAL (NORMAL) 08/20/17 04:45 Anisocytosis 1+ 08/28/17 06:30 Crenated Cell 2+ 08/02/17 15:37 RBC Morph Micro Appear ABNORMAL (NORMAL) 08/02/17 15:37 PT 11.6 SECONDS (9.5-11.5) H 08/25/17 21:06 INR 1.11 (0.5-1.4) 08/25/17 21:06 PTT (Actin FS) 32.3 SECONDS (26.0-38.0) 08/25/17 21:06 Specimen Source Arterial 08/03/17 08:58 Sample Site Right Radial 08/03/17 08:58 pH 7.42 (7.35-7.45) 08/03/17 08:58 pCO2 37.0 mmHg (35.0-45.0) 08/03/17 08:58 pO2 204.0 mmHg (80.0-100.0) H 08/03/17 08:58 HCO3 24.8 mEq/L (20.0-26.0) 08/03/17 08:58 Base Excess -0.2 mEq/L (-3.0-3.0) 08/03/17 08:58 O2 Saturation 100.0 % (92.0-100.0) 08/03/17 08:58 Rhett Test Positive 08/03/17 08:58 Vent Rate 12 08/03/17 08:58 Inspired O2 60 08/03/17 08:58 Tidal Volume 450 08/03/17 08:58 PEEP 5 08/03/17 08:58 Pressure (ins/psv/peep) NA 08/03/17 08:58 Critical Value LZHANG 08/03/17 08:58 Sodium 135 mEq/L (136-145) L 08/31/17 04:10 Potassium 3.1 mEq/L (3.5-5.1) L 08/31/17 04:10 Chloride 98 mEq/L (98-107) 08/31/17 04:10 Carbon Dioxide 23.8 mEq/L (21.0-31.0) 08/31/17 04:10 Anion Gap 16.3 (7.0-16.0) H 08/31/17 04:10 BUN 36 mg/dL (7-25) H 08/31/17 04:10 Creatinine 2.6 mg/dL (0.6-1.2) H 08/31/17 04:10 Est GFR ( Amer) TNP 08/31/17 04:10 Est GFR (Non-Af Amer) TNP 08/31/17 04:10 BUN/Creatinine Ratio 13.8 08/31/17 04:10 Glucose 160 mg/dL (70-105) H 08/31/17 04:10 POC Glucose 217 MG/DL (70 - 105) H 08/31/17 21:16 Hemoglobin A1c % 7.7 % (4.0-6.0) H 08/02/17 15:37 Whole Bld Lactic Acid 1.97 mmol/L (0.60-1.99) 08/02/17 13:49 Calcium 8.1 mg/dL (8.6-10.3) L 08/31/17 04:10 Magnesium 1.8 mg/dL (1.9-2.7) L 08/28/17 04:20 Iron 10 ug/dL (27-139) L 08/02/17 13:56 TIBC 135 ug/dL (250-450) L 08/02/17 13:56 Iron Saturation 7 % (15-55) L 08/02/17 13:56 Unsaturated IBC 125 ug/dL (118-369) 08/02/17 13:56 Ferritin 588 ng/mL (15-150) H 08/02/17 13:56 Total Bilirubin 0.4 mg/dL (0.3-1.0) 08/26/17 06:05 Direct Bilirubin 0.09 mg/dL (0.0-0.2) 08/02/17 13:57 AST 34 U/L (13-39) 08/26/17 06:05 ALT 14 U/L (7-52) 08/26/17 06:05 Alkaline Phosphatase 70 U/L (34-104) 08/26/17 06:05 Troponin I 0.10 ng/mL (0.01-0.05) H* D 08/20/17 17:00 B-Natriuretic Peptide 839.0 pg/mL (5.0-100.0) H 08/19/17 04:58 Total Protein 6.3 gm/dL (6.0-8.3) 08/26/17 06:05 Albumin 2.7 gm/dL (3.7-5.3) L 08/26/17 06:05 Globulin 3.6 gm/dL 08/26/17 06:05 Albumin/Globulin Ratio 0.8 (1.0-1.8) L 08/26/17 06:05 Triglycerides 132 mg/dL (<150) 08/04/17 06:30 Cholesterol 55 mg/dL (<200) 08/04/17 06:30 LDL Cholesterol Direct 16 mg/dL (75-193) L 08/04/17 06:30 HDL Cholesterol 13 mg/dL (23-92) L 08/04/17 06:30 Amylase 12 U/L (29-103) L 08/02/17 13:43 Lipase 4 U/L (11-82) L 08/02/17 13:43 TSH 3.74 uIU/ml (0.34-5.60) 08/04/17 06:30 Stool Occult Blood POSITIVE (NEGATIVE) H 08/03/17 17:50 Random Vancomycin 34.8 ug/mL (5.0-40.0) 08/31/17 04:10 Hepatitis A IgM Ab Negative (Negative) 08/08/17 08:15 Hep Bs Antigen Negative (Negative) 08/08/17 08:15 Hep B Core IgM Ab Negative (Negative) 08/08/17 08:15 Hepatitis C Antibody <0.1 s/co ratio (0.0-0.9) 08/08/17 08:15 Blood Type A POSITIVE 08/26/17 23:45 Rho(D) Type Cancelled 08/26/17 23:46 Antibody Screen POSITIVE 08/26/17 23:45 Antibody Identification Anti-K 08/24/17 08:30 NEVILLE, IgG Interpret NEGATIVE 08/15/17 07:50 Crossmatch See Detail 08/26/17 23:46 Crossmatch (AHG) Cancelled 08/26/17 23:46 Donor Unit # Cancelled 03/20/18 23:46 BBK History Checked Cancelled 08/26/17 23:46 - Physical Exam Vitals and I&O: Vital Signs Temp 97.0 F 08/31/17 20:00 Pulse 90 08/31/17 23:21 Resp 16 08/31/17 20:00 BP 135/112 08/31/17 20:00 Pulse Ox 100 08/31/17 23:21 Intake & Output 08/31/17 08/31/17 09/01/17 06:59 18:59 06:59 Intake Total 277 82 5078 Output Total 3000 Balance 400 50 -1900 Weight (lbs) 107.955 kg 107.955 kg Intake: Intake, IV Amount 100 50 Piperacillin Sodium/ 100 50 Tazobact 2.25 gm In Sodium Chloride 0.9% 50 ml @ 100 mls/hr IV Q8HR [facility] Rx#:[id number] Tube Feeding 600 Albumin 200 Other 300 300 Output: Hemodialysis 3000 Other: # Voids 0 0 # Bowel Movements 2 1 Stool Characteristics Liquid Soft Brown Brown Weight Source Bedscale Bedscale Active Medications: Current Medications Acetaminophen (Tylenol) 650 mg GT DAILY [facility] Stop: 10/20/17 08:59 Last Admin: 08/31/17 08:06 Dose: 650 mg Albuterol/Ipratropium (Duoneb Neb) 3 ml HHN Q4HRT [facility] Stop: 10/19/17 10:59 Last Admin: 08/31/17 23:21 Dose: 3 ml Amiodarone HCl (Cordarone) 200 mg GT Q12H [facility] Stop: 10/20/17 10:59 Last Admin: 08/31/17 12:02 Dose: 200 mg Ascorbic Acid (Vitamin C) 500 mg PO DAILY [facility] Stop: 10/20/17 08:59 Last Admin: 08/31/17 08:07 Dose: 500 mg Aspirin (Aspirin Chewable) 81 mg PO DAILY [facility] Stop: 10/20/17 08:59 Last Admin: 08/31/17 08:07 Dose: 81 mg Atorvastatin Calcium (Lipitor) 40 mg GT DAILY FOUZIA PRN Reason: Protocol Stop: 10/20/17 08:59 Last Admin: 08/31/17 08:06 Dose: 40 mg Bisacodyl (Dulcolax 10 Mg Supp) 10 mg RC Q72HR PRN PRN Reason: if MOM ineffective Stop: 10/19/17 11:29 Chlorhexidine Gluconate (Peridex) 15 ml MM 0800,1999 [facility] Stop: 10/19/17 19:59 Last Admin: 08/31/17 21:15 Dose: 15 ml Cholecalciferol (Vitamin D3) 1,000 iu PO DAILY [facility] Stop: 10/20/17 08:59 Last Admin: 08/31/17 08:07 Dose: 1,000 iu Diltiazem HCl (Cardizem) 20 mg IV Q4HR PRN PRN Reason: HR ABOVE 120 Stop: 09/13/17 11:59 Docusate Sodium (Colace) 100 mg PO DAILY [facility] Stop: 10/20/17 08:59 Last Admin: 08/31/17 08:07 Dose: Not Given Dopamine HCl/Dextrose (Dopamine) 400 mg in 250 mls @ 0 mls/hr IV TITR PRN; Protocol; 0 MCG/KG/MIN PRN Reason: BP MAINTENANCE (PER PROTOCOL) Stop: 10/19/17 11:28 Norepinephrine Bitartrate 8 mg (/ Sodium Chloride) 258 mls @ 34.83 mls/hr IV TITR PRN; Protocol; 18 MCG/MIN PRN Reason: BP MAINTENANCE (PER PROTOCOL) Stop: 10/19/17 11:09 Last Titration: 08/30/17 15:20 Dose: 0 mcg/min, 0 mls/hr Piperacillin Sod/Tazobactam (Sod 2.25 gm/ Sodium Chloride) 50 mls @ 100 mls/hr IV Q8HR [facility] Stop: 10/23/17 20:59 Last Admin: 08/31/17 21:11 Dose: 100 mls/hr Phenylephrine HCl 10 mg/ (Sodium Chloride) 250 mls @ 0 mls/hr IV TITR FOUZIA; Per Protocol PRN Reason: Protocol Stop: 10/24/17 10:29 Dextrose (D5w) 1,000 mls @ 20 mls/hr IV .Q24H [facility] Stop: 10/28/17 18:43 Last Admin: 08/29/17 20:55 Dose: 20 mls/hr Insulin Aspart (Novolog Insulin Sliding Scale) 0 units SUBQ Q6HR FOUZIA PRN Reason: Protocol Stop: 10/19/17 11:59 Last Admin: 08/31/17 18:07 Dose: 2 units Insulin Detemir (Levemir Insulin) 16 units SUBQ HS FOUZIA PRN Reason: Protocol Stop: 10/19/17 20:59 Last Admin: 08/31/17 21:17 Dose: 16 units Lactobacillus Rhamnosus (Culturelle 15b) 1 each PO DAILY FOUZIA Stop: 10/20/17 08:59 Last Admin: 08/31/17 08:07 Dose: 1 each Lorazepam (Ativan) 2 mg IVP Q4HR PRN; Protocol PRN Reason: Agitation Stop: 10/15/17 11:49 Last Admin: 08/31/17 21:30 Dose: 2 mg Magnesium Hydroxide (Milk Of Magnesia) 30 ml PO Q72HR PRN PRN Reason: Constipation Stop: 10/19/17 11:44 Midodrine (Proamatine) 10 mg PO BID [facility] Stop: 10/28/17 16:59 Last Admin: 08/31/17 16:57 Dose: 10 mg Mirtazapine (Remeron) 15 mg GT HS FOUZIA PRN Reason: Protocol Stop: 10/19/17 20:59 Last Admin: 08/31/17 21:12 Dose: 15 mg Miscellaneous (Probiotic Screen) 1 ea MC PRN PRN PRN Reason: PROTOCOL Stop: 10/22/17 10:29 Miscellaneous (Vancomycin Iv Per Pharmacy) 1 ea MC PRN [facility] Stop: 10/23/17 16:59 Multivitamins/Vitamin C (Theragran) 1 tab PO DAILY [facility] Stop: 10/20/17 08:59 Last Admin: 08/31/17 08:07 Dose: 1 tab Ondansetron HCl (Zofran) 4 mg IV Q6H PRN PRN Reason: Nausea / Vomiting Stop: 10/19/17 11:40 Pantoprazole Sodium (Protonix) 40 mg IVP BID FOUZIA Stop: 10/28/17 16:59 Last Admin: 08/31/17 16:57 Dose: 40 mg Simethicone (Mylicon) 80 mg GT Q6HR PRN PRN Reason: Gas Stop: 10/19/17 11:59 Sodium Phosphate (Fleet Enema) 135 ml RC PRN PRN PRN Reason: If MOM/Dulcolax ineffective Stop: 10/19/17 11:29 Zinc Sulfate (Zinc Sulfate) 220 mg PO DAILY FOUZIA Stop: 10/20/17 08:59 Last Admin: 08/31/17 08:06 Dose: 220 mg General: no acute distress, well developed, well nourished HEENT: atraumatic, normocephalic, PERRLA, EOMI Neck: supple, tracheostomy Cardiovascular: S1S2, regular Lungs: clear to auscultation bilaterally, clear to percussion Abdomen: soft, no tender, no distended Extremities: no cyanosis, no clubbing, no edema Neurological: awake, alert, oriented Skin: intact - Procedures Procedures: Procedures Procedure Code Date BLOOD TRANSFUSION SERVICE 47750 08/02/17 EXCISION OF STOMACH, ENDO, DIAGN [id number] 07/10/17 INSPECTION OF LOWER INTESTINAL TRACT, ENDO [id number] 07/10/17 PERFORMANCE OF URINARY FILTRATION, <6 HRS/DAY [id number] 07/10/17 RESPIRATORY VENTILATION, GREATER THAN 96 CONSECUTIVE HOURS [id number] 08/02/17 TRANSFUSE NONAUT RED BLOOD CELLS IN PERIPH VEIN, PERC [id number] 08/02/17 Infectious Disease Assmt/Plan - Assessment Assessment: 1. Septic shock. versus cardiogenic shock. 2. Gram-negative negative bacteremia treated 3. Pneumonia. 4. 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 5. Diabetes mellitus type 2. 6. Obesity. 7. Hypotension on levophed. 8. Gi bleed. - Plan Plan: Continue Zosyn x 5 days and dc vancomycin IV. Patient has poor prognosis . Nutritional Asmnt/Malnutr-PDOC - Dietary Evaluation Malnutrition Findings (Please click <Entered> for more info): Nutritional Asmnt/Malnutrition Start: 08/05/17 15: 53 Text: Status: Complete Freq: Document 08/05/17 15:53 [facility] (Rec: 08/05/17 16:19 [facility]) Nutritional Asmnt/Malnutrition Patient General Information Nutritional Screening High Risk Diagnosis sepsis, respiratory failure, ESRD Pertinent Medical Hx/Surgical Hx ESRD on HD, respiratory failure with tracheostomy, dysphagia, a fib, anemia, HTN, GERD Subjective Information Pt on vent, not able to interview. Pt was on TF Novosource Renal 30ml/hr continuous, NPO today for surgery. Pt has dialysis ordred per nurse note. Current Diet Order/ Nutrition Support NPO on 08/05 Pertinent Medications vit C, vit D3, colace, novolog , remeron, theragran, protonix , zinc Pertinent Labs 08/05 Na 134, K 3.6, Cl 102, BUN 77, Cr 4.2, Glucose 216, POC 224-233 08/02 A1c 7.7 Nutritional Hx/Data Height 1.6 m Height (Calculated Centimeters) 160.0 Current Weight (lbs) 87.543 kg Weight (Calculated Kilograms) 87.5 Weight (Calculated Grams) 23740.3 [place] Body Weight 115 Body Mass Index (BMI) 34.2 Weight Status Obese GI Symptoms GI Symptoms None Last BM 08/04 Difficult in: None Skin Integrity/Comment: reddened to left/right inner thigh, right lateral index finger, right/left arm; skin tear to left abdominal fold; pressure area to coccy/sacral Estimated Nutritional Goals BEE in Kcals: Adj wt of IBW Calories/Kcals/Kg 30-35 adj wt 61kg Kcals Calculated 1815-2553 Protein: Adj wt of IBW Protein g/k.2-1.4 Protein Calculated 73-85 Fluid: ml 1830-2135ml (1ml/kcal) Nutritional Problem 1. Problem Problem altered nutrition related lab values Etiology hx of ESRD, endocrine dysfunction Signs/Symptoms: BUN 77, Cr 4.2, Glucose 216, POC 224-233, A1c 7.7 Malnutrition Alert Protein-Calorie Malnutrition N/A Is there a minimum of two criteria No selected? Query Text:Check all the applicable criteria. A minimum of two criteria are recommended for diagnosis of either severe or non-severe malnutrition. Intervention/Recommendation Comments 1. Resume TF Novosource Renal 30ml/hr continuous as ordered. increase to goal rate of 40ml /hr continuous as tolerated. This will provide 1920kcal, 87g protein and 688ml free water, meeting 100% of nutritional needs 2. Monitor TF rate, tolerance, wt weekly, skin integrity and labs 3. F/U as high risk in 2-3 days, 08/07-08/08 Expected Outcomes/Goals Expected Outcomes/Goals 1. Pt to meet at least 75% of nutritional needs via nutrition support with tolerance 2. Wt stability, skin to remain intact, labs to approach WNL.
[2017-09-01] MEDS: INSULIN ASPART SLIDING SCALE 100 UNITS/ML UNIT SUBQ SCH ×4 (00:13→17:30)
[2017-09-01] MEDS: Albuterol/Ipratropium Neb 3 ML AERS HHN SCH ×6 (03:21→23:02)
[2017-09-01 04:48] LABS: HEMATOCRIT 26.4 % (41.0-60); HEMOGLOBIN 8.9 gm/dL (12-16); MEAN CELL VOLUME 93.7 fl (81-100); MEAN CORPUSCULAR HEMOGLOBIN 31.7 pg (27.0-31.0); MEAN CORPUSCULAR HGB CONC 33.9 pg (28.0-36.0); MEAN PLATELET VOLUME 10.7 fl; PLATELET COUNT 165 Th/cmm (150-400); RED BLOOD COUNT 2.81 Mil/cmm (3.80-5.20); RED CELL DISTRIBUTION WIDTH 16.2 % (11.5-20.0)
[2017-09-01 04:56] LABS: BUN - UREA NITROGEN 26 mg/dL (7-25); CALCIUM SERUM 7.9 mg/dL (8.6-10.3); CARBON DIOXIDE 26.1 mEq/L (21.0-31.0); CHLORIDE 92 mEq/L (98-107); MANUAL DIFF REQUIRED? YES; POTASSIUM SERUM 3.1 mEq/L (3.5-5.1); SODIUM SERUM 129 mEq/L (136-145)
[2017-09-01] MEDS: Dextrose 5% 1,000 ML IV SCH ×2 (05:14→21:33)
[2017-09-01 05:55] LABS: ANION GAP 15.3 (7.0-16.0); BUN - UREA NITROGEN 28 mg/dL (7-25); CALCIUM SERUM 8.5 mg/dL (8.6-10.3); CHLORIDE 99 mEq/L (98-107); CREATININE - SERUM 2.1 mg/dL (0.6-1.2); GLUCOSE 183 mg/dL (70-105); POTASSIUM SERUM 3.3 mEq/L (3.5-5.1); SODIUM SERUM 136 mEq/L (136-145)
[2017-09-01 05:55] LABS: WHITE BLOOD COUNT 12.5 Th/cmm (4.8-10.8)
[2017-09-01 05:58] LABS: HEMATOCRIT 28.8 % (41.0-60); HEMOGLOBIN 9.7 gm/dL (12-16); MEAN CELL VOLUME 92.2 fl (81-100); MEAN CORPUSCULAR HEMOGLOBIN 31.2 pg (27.0-31.0); MEAN CORPUSCULAR HGB CONC 33.8 pg (28.0-36.0); MEAN PLATELET VOLUME 10.2 fl; PLATELET COUNT 167 Th/cmm (150-400); RED BLOOD COUNT 3.12 Mil/cmm (3.80-5.20); RED CELL DISTRIBUTION WIDTH 15.5 % (11.5-20.0)
[2017-09-01 06:02] LABS: WHITE BLOOD COUNT 13.2 Th/cmm (4.8-10.8)
[2017-09-01 06:03] LABS: MANUAL DIFF REQUIRED? YES
[2017-09-01 07:01] LABS: BAND NEUTROPHILE 7 % (0-10); EOSINOPHIL 2 % (0-5); LYMPHOCYTE 3 % (20-50); MONOCYTE 6 % (2-10); NEUTROPHILS 82 % (40-80); TOTAL CELLS COUNTED 100
[2017-09-01 07:03] LABS: BAND NEUTROPHILE 4 % (0-10); EOSINOPHIL 1 % (0-5); LYMPHOCYTE 2 % (20-50); MONOCYTE 3 % (2-10); NEUTROPHILS 90 % (40-80); TOTAL CELLS COUNTED 100
[2017-09-01] MEDS: Aspirin 81mg Chewable Tab PO SCH (08:14)
[2017-09-01] MEDS: Multivitamin Tab PO SCH (08:15)
[2017-09-01] MEDS: Chlorhexidine Gluconate 0.12% 15mL Mouthwash MM SCH ×2 (08:16→21:23)
[2017-09-01] MEDS: Lactobacillus Rhamnosus GG 15 Billion CFU CAP.SPRINK PO SCH (08:18)
--- NOTE | 2017-09-01 08:57 | GI Progress Note ---
Subjective - Review of Systems Service Date: 09/01/17 Subjective: No further GI bleeding Objective - Results Result Diagrams: 09/01/17 05:30 09/01/17 05:30 Recent Labs: Laboratory Last Values WBC 13.2 Th/cmm (4.8-10.8) H 09/01/17 05:30 Corrected WBC (auto) 12.0 Th/cmm (4.8-10.8) H 09/01/17 04:15 RBC 3.12 Mil/cmm (3.80-5.20) L 09/01/17 05:30 Hgb 9.7 gm/dL (12-16) L 09/01/17 05:30 Hct 28.8 % (41.0-60) L 09/01/17 05:30 MCV 92.2 fl (81-100) 09/01/17 05:30 MCH 31.2 pg (27.0-31.0) H 09/01/17 05:30 MCHC Differential 33.8 pg (28.0-36.0) 09/01/17 05:30 RDW 15.5 % (11.5-20.0) 09/01/17 05:30 Plt Count 167 Th/cmm (150-400) 09/01/17 05:30 MPV 10.2 fl 09/01/17 05:30 Neutrophils % 85.7 % (40.0-80.0) H 08/31/17 04:10 Band Neutrophils % 4 % (0-10) 09/01/17 05:30 Lymphocytes % 3.8 % (20.0-50.0) L 08/31/17 04:10 Monocytes % 7.8 % (2.0-10.0) 08/31/17 04:10 Eosinophils % 2.7 % (0.0-5.0) 08/31/17 04:10 Basophils % 0.0 % (0.0-2.0) 08/31/17 04:10 Neutrophils (Manual) 90 % (40-80) H 09/01/17 05:30 Lymphocytes 2 % (20-50) L 09/01/17 05:30 Monocytes 3 % (2-10) 09/01/17 05:30 Eosinophils 1 % (0-5) 09/01/17 05:30 Basophils 1 % (0-3) 08/28/17 06:30 Nucleated RBCs 2.0 % (0-0) H 09/01/17 05:30 Hypochromia 1+ 08/02/17 15:37 Platelet Estimate ADEQUATE (NORMAL) 08/28/17 06:30 Platelet Morphology NORMAL (NORMAL) 08/20/17 04:45 Anisocytosis 1+ 08/28/17 06:30 Crenated Cell 2+ 08/02/17 15:37 RBC Morph Micro Appear ABNORMAL (NORMAL) 08/02/17 15:37 PT 11.6 SECONDS (9.5-11.5) H 08/25/17 21:06 INR 1.11 (0.5-1.4) 08/25/17 21:06 PTT (Actin FS) 32.3 SECONDS (26.0-38.0) 08/25/17 21:06 Specimen Source Arterial 08/03/17 08:58 Sample Site Right Radial 08/03/17 08:58 pH 7.42 (7.35-7.45) 08/03/17 08:58 pCO2 37.0 mmHg (35.0-45.0) 08/03/17 08:58 pO2 204.0 mmHg (80.0-100.0) H 08/03/17 08:58 HCO3 24.8 mEq/L (20.0-26.0) 08/03/17 08:58 Base Excess -0.2 mEq/L (-3.0-3.0) 08/03/17 08:58 O2 Saturation 100.0 % (92.0-100.0) 08/03/17 08:58 Rhett Test Positive 08/03/17 08:58 Vent Rate 12 08/03/17 08:58 Inspired O2 60 08/03/17 08:58 Tidal Volume 450 08/03/17 08:58 PEEP 5 08/03/17 08:58 Pressure (ins/psv/peep) NA 08/03/17 08:58 Critical Value LZHANG 08/03/17 08:58 Sodium 136 mEq/L (136-145) 09/01/17 05:30 Potassium 3.3 mEq/L (3.5-5.1) L 09/01/17 05:30 Chloride 99 mEq/L (98-107) 09/01/17 05:30 Carbon Dioxide 25.0 mEq/L (21.0-31.0) 09/01/17 05:30 Anion Gap 15.3 (7.0-16.0) 09/01/17 05:30 BUN 28 mg/dL (7-25) H 09/01/17 05:30 Creatinine 2.1 mg/dL (0.6-1.2) H 09/01/17 05:30 Est GFR ( Amer) TNP 09/01/17 05:30 Est GFR (Non-Af Amer) TNP 09/01/17 05:30 BUN/Creatinine Ratio 13.3 09/01/17 05:30 Glucose 183 mg/dL (70-105) H 09/01/17 05:30 POC Glucose 188 MG/DL (70 - 105) H 09/01/17 05:06 Hemoglobin A1c % 7.7 % (4.0-6.0) H 08/02/17 15:37 Whole Bld Lactic Acid 1.97 mmol/L (0.60-1.99) 08/02/17 13:49 Calcium 8.5 mg/dL (8.6-10.3) L 09/01/17 05:30 Magnesium 1.8 mg/dL (1.9-2.7) L 08/28/17 04:20 Iron 10 ug/dL (27-139) L 08/02/17 13:56 TIBC 135 ug/dL (250-450) L 08/02/17 13:56 Iron Saturation 7 % (15-55) L 08/02/17 13:56 Unsaturated IBC 125 ug/dL (118-369) 08/02/17 13:56 Ferritin 588 ng/mL (15-150) H 08/02/17 13:56 Total Bilirubin 0.4 mg/dL (0.3-1.0) 08/26/17 06:05 Direct Bilirubin 0.09 mg/dL (0.0-0.2) 08/02/17 13:57 AST 34 U/L (13-39) 08/26/17 06:05 ALT 14 U/L (7-52) 08/26/17 06:05 Alkaline Phosphatase 70 U/L (34-104) 08/26/17 06:05 Troponin I 0.10 ng/mL (0.01-0.05) H* D 08/20/17 17:00 B-Natriuretic Peptide 839.0 pg/mL (5.0-100.0) H 08/19/17 04:58 Total Protein 6.3 gm/dL (6.0-8.3) 08/26/17 06:05 Albumin 2.7 gm/dL (3.7-5.3) L 08/26/17 06:05 Globulin 3.6 gm/dL 08/26/17 06:05 Albumin/Globulin Ratio 0.8 (1.0-1.8) L 08/26/17 06:05 Triglycerides 132 mg/dL (<150) 08/04/17 06:30 Cholesterol 55 mg/dL (<200) 08/04/17 06:30 LDL Cholesterol Direct 16 mg/dL (75-193) L 08/04/17 06:30 HDL Cholesterol 13 mg/dL (23-92) L 08/04/17 06:30 Amylase 12 U/L (29-103) L 08/02/17 13:43 Lipase 4 U/L (11-82) L 08/02/17 13:43 TSH 3.74 uIU/ml (0.34-5.60) 08/04/17 06:30 Stool Occult Blood POSITIVE (NEGATIVE) H 08/03/17 17:50 Random Vancomycin 34.8 ug/mL (5.0-40.0) 08/31/17 04:10 Hepatitis A IgM Ab Negative (Negative) 08/08/17 08:15 Hep Bs Antigen Negative (Negative) 08/08/17 08:15 Hep B Core IgM Ab Negative (Negative) 08/08/17 08:15 Hepatitis C Antibody <0.1 s/co ratio (0.0-0.9) 08/08/17 08:15 Blood Type A POSITIVE 08/26/17 23:45 Rho(D) Type Cancelled 08/26/17 23:46 Antibody Screen POSITIVE 08/26/17 23:45 Antibody Identification Anti-K 08/24/17 08:30 NEVILLE, IgG Interpret NEGATIVE 08/15/17 07:50 Crossmatch See Detail 08/26/17 23:46 Crossmatch (AHG) Cancelled 08/26/17 23:46 Donor Unit # Cancelled 08/26/17 23:46 BBK History Checked Cancelled 08/26/17 23:46 - Physical Exam Vitals and I&O: Vital Signs Temp 97.8 F 09/01/17 03:00 Pulse 89 09/01/17 05:05 Resp 18 09/01/17 03:22 BP 102/35 09/01/17 03:00 Pulse Ox 100 09/01/17 08:00 Intake & Output 08/31/17 09/01/17 09/01/17 18:59 06:59 18:59 Intake Total 50 2900 Output Total 3000 Balance 50 -100 Weight (lbs) 107.955 kg Intake: Intake, IV Amount 50 1000 Dextrose 5% 1,000 ml @ 20 1000 mls/hr IV .Q24H [facility] Rx#: [id number] Piperacillin Sodium/ 50 Tazobact 2.25 gm In Sodium Chloride 0.9% 50 ml @ 100 mls/hr IV Q8HR [facility] Rx#:[id number] Tube Feeding 1200 Albumin 200 Other 500 Output: Hemodialysis 3000 Other: # Voids 0 # Bowel Movements 2 Stool Characteristics Soft Soft Brown Brown Weight Source Bedscale Active Medications: Current Medications Acetaminophen (Tylenol) 650 mg GT DAILY [facility] Stop: 10/20/17 08:59 Last Admin: 09/01/17 08:15 Dose: 650 mg Albuterol/Ipratropium (Duoneb Neb) 3 ml HHN Q4HRT [facility] Stop: 10/19/17 10:59 Last Admin: 09/01/17 03:21 Dose: 3 ml Amiodarone HCl (Cordarone) 200 mg GT Q12H [facility] Stop: 10/20/17 10:59 Last Admin: 09/01/17 00:15 Dose: 200 mg Ascorbic Acid (Vitamin C) 500 mg PO DAILY [facility] Stop: 10/20/17 08:59 Last Admin: 09/01/17 08:15 Dose: 500 mg Aspirin (Aspirin Chewable) 81 mg PO DAILY [facility] Stop: 10/20/17 08:59 Last Admin: 09/01/17 08:14 Dose: 81 mg Atorvastatin Calcium (Lipitor) 40 mg GT DAILY FOUZIA PRN Reason: Protocol Stop: 10/20/17 08:59 Last Admin: 09/01/17 08:15 Dose: 40 mg Bisacodyl (Dulcolax 10 Mg Supp) 10 mg RC Q72HR PRN PRN Reason: if MOM ineffective Stop: 10/19/17 11:29 Chlorhexidine Gluconate (Peridex) 15 ml MM 0800,1999 [facility] Stop: 10/19/17 19:59 Last Admin: 09/01/17 08:16 Dose: 15 ml Cholecalciferol (Vitamin D3) 1,000 iu PO DAILY [facility] Stop: 10/20/17 08:59 Last Admin: 09/01/17 08:15 Dose: 1,000 iu Diltiazem HCl (Cardizem) 20 mg IV Q4HR PRN PRN Reason: HR ABOVE 120 Stop: 09/13/17 11:59 Docusate Sodium (Colace) 100 mg PO DAILY [facility] Stop: 10/20/17 08:59 Last Admin: 09/01/17 08:14 Dose: 100 mg Dopamine HCl/Dextrose (Dopamine) 400 mg in 250 mls @ 0 mls/hr IV TITR PRN; Protocol; 0 MCG/KG/MIN PRN Reason: BP MAINTENANCE (PER PROTOCOL) Stop: 10/19/17 11:28 Norepinephrine Bitartrate 8 mg (/ Sodium Chloride) 258 mls @ 34.83 mls/hr IV TITR PRN; Protocol; 18 MCG/MIN PRN Reason: BP MAINTENANCE (PER PROTOCOL) Stop: 10/19/17 11:09 Last Titration: 08/30/17 15:20 Dose: 0 mcg/min, 0 mls/hr Phenylephrine HCl 10 mg/ (Sodium Chloride) 250 mls @ 0 mls/hr IV TITR FOUZIA; Per Protocol PRN Reason: Protocol Stop: 10/24/17 10:29 Dextrose (D5w) 1,000 mls @ 20 mls/hr IV .Q24H [facility] Stop: 10/28/17 18:43 Last Admin: 09/01/17 05:14 Dose: 20 mls/hr Piperacillin Sod/Tazobactam (Sod 2.25 gm/ Sodium Chloride) 50 mls @ 100 mls/hr IV Q8HR [facility] Stop: 09/06/17 04:59 Last Admin: 09/01/17 05:09 Dose: 100 mls/hr Insulin Aspart (Novolog Insulin Sliding Scale) 0 units SUBQ Q6HR FOUZIA PRN Reason: Protocol Stop: 10/19/17 11:59 Last Admin: 09/01/17 07:20 Dose: 2 units Insulin Detemir (Levemir Insulin) 16 units SUBQ HS FOUZIA PRN Reason: Protocol Stop: 10/19/17 20:59 Last Admin: 08/31/17 21:17 Dose: 16 units Lactobacillus Rhamnosus (Culturelle 15b) 1 each PO DAILY FOUZIA Stop: 10/20/17 08:59 Last Admin: 09/01/17 08:18 Dose: 1 each Lorazepam (Ativan) 2 mg IVP Q4HR PRN; Protocol PRN Reason: Agitation Stop: 10/15/17 11:49 Last Admin: 09/01/17 07:21 Dose: 2 mg Magnesium Hydroxide (Milk Of Magnesia) 30 ml PO Q72HR PRN PRN Reason: Constipation Stop: 10/19/17 11:44 Midodrine (Proamatine) 10 mg PO BID [facility] Stop: 10/28/17 16:59 Last Admin: 09/01/17 08:15 Dose: 10 mg Mirtazapine (Remeron) 15 mg GT HS [facility] PRN Reason: Protocol Stop: 10/19/17 20:59 Last Admin: 08/31/17 21:12 Dose: 15 mg Miscellaneous (Probiotic Screen) 1 ea MC PRN PRN PRN Reason: PROTOCOL Stop: 10/22/17 10:29 Multivitamins/Vitamin C (Theragran) 1 tab PO DAILY FOUZIA Stop: 10/20/17 08:59 Last Admin: 09/01/17 08:15 Dose: 1 tab Ondansetron HCl (Zofran) 4 mg IV Q6H PRN PRN Reason: Nausea / Vomiting Stop: 10/19/17 11:40 Pantoprazole Sodium (Protonix) 40 mg IVP BID FOUZIA Stop: 10/28/17 16:59 Last Admin: 09/01/17 08:17 Dose: 40 mg Simethicone (Mylicon) 80 mg GT Q6HR PRN PRN Reason: Gas Stop: 10/19/17 11:59 Sodium Phosphate (Fleet Enema) 135 ml RC PRN PRN PRN Reason: If MOM/Dulcolax ineffective Stop: 10/19/17 11:29 Zinc Sulfate (Zinc Sulfate) 220 mg PO DAILY FOUZIA Stop: 10/20/17 08:59 Last Admin: 09/01/17 08:15 Dose: 220 mg General: Alert, No acute distress (scattered rhonchi) HEENT: Atraumatic, Mucous membr. moist/pink Neck: Supple, +2 carotid pulse wo bruit Cardiovascular: Regular rate, Normal S1, Normal S2 Lungs: Other (scattered rhonchi) Abdomen: Bowel sounds, Soft, Other (INTACT GT), no Distended, no Rebound, no Guarding Extremities: Edema (upper wxtrmities), Other (upper ext) Neurological: Sensation intact Skin: no Rash Psych/Mental Status: Mood NL - Procedures Procedures: Procedures Procedure Code Date BLOOD TRANSFUSION SERVICE 66493 08/02/17 EXCISION OF STOMACH, ENDO, DIAGN [id number] 07/10/17 INSPECTION OF LOWER INTESTINAL TRACT, ENDO [id number] 07/10/17 PERFORMANCE OF URINARY FILTRATION, <6 HRS/DAY [id number] 07/10/17 RESPIRATORY VENTILATION, GREATER THAN 96 CONSECUTIVE HOURS [id number] 08/02/17 TRANSFUSE NONAUT RED BLOOD CELLS IN PERIPH VEIN, PERC [id number] 08/02/17 Assessment/Plan - Assessment Assessment: # Sepsis # Dysphagia with G tube # GI bleed # Anemia EGD and colonoscopy performed in 07/2017 revealed gastritis and hemorrhoids. SBFT showed delayed transit but no lesion. At that time, it was recommended that the pt have a bleeding scan if she rebled. Now, she is again showed signs of GI bleed on 08/25-, more lower than upper, although brisk upper cannot be ruled out. Bleeding scan on 08/27 did not show active bleed, and her stool has become brown. She may have bled from small bowel source, or from her known hemorrhoids. She was able to get dialysis on 08/27, and I suspect this has helped. Will hold off on further endoscopy given her high risk and previous negative examination unless she rebleeds. Hgb has remained stable. Plan: - hold off on EGD/colo as above, reserve for hemostasis - Switch PPI to bid dosing - CBC cycle, transfuse to keep hgb > 7 - cont with HD GI to see as needed, please call with any questions
--- NOTE | 2017-09-01 10:02 | Diagnostic Imaging Report ---
CHEST X-RAY: AP view INDICATION: CHF COMPARISON: 08/28/2017 FINDINGS: Tracheostomy tube is noted. Findings of CHF are seen with bilateral pleural effusions, left larger than right and bilateral infiltrates. Cardiomegaly is noted. IMPRESSION: No significant change in pulmonary status.
--- NOTE | 2017-09-01 11:57 | General Progress Note ---
Subjective - Review of Systems Service Date: 09/01/17 Subjective: very awake, talking, on vent Objective - Results Result Diagrams: 09/01/17 05:30 09/01/17 05:30 Recent Labs: Laboratory Last Values WBC 13.2 Th/cmm (4.8-10.8) H 09/01/17 05:30 Corrected WBC (auto) 12.0 Th/cmm (4.8-10.8) H 09/01/17 04:15 RBC 3.12 Mil/cmm (3.80-5.20) L 09/01/17 05:30 Hgb 9.7 gm/dL (12-16) L 09/01/17 05:30 Hct 28.8 % (41.0-60) L 09/01/17 05:30 MCV 92.2 fl (81-100) 09/01/17 05:30 MCH 31.2 pg (27.0-31.0) H 09/01/17 05:30 MCHC Differential 33.8 pg (28.0-36.0) 09/01/17 05:30 RDW 15.5 % (11.5-20.0) 09/01/17 05:30 Plt Count 167 Th/cmm (150-400) 09/01/17 05:30 MPV 10.2 fl 09/01/17 05:30 Neutrophils % 85.7 % (40.0-80.0) H 08/31/17 04:10 Band Neutrophils % 4 % (0-10) 09/01/17 05:30 Lymphocytes % 3.8 % (20.0-50.0) L 08/31/17 04:10 Monocytes % 7.8 % (2.0-10.0) 08/31/17 04:10 Eosinophils % 2.7 % (0.0-5.0) 08/31/17 04:10 Basophils % 0.0 % (0.0-2.0) 08/31/17 04:10 Neutrophils (Manual) 90 % (40-80) H 09/01/17 05:30 Lymphocytes 2 % (20-50) L 09/01/17 05:30 Monocytes 3 % (2-10) 09/01/17 05:30 Eosinophils 1 % (0-5) 09/01/17 05:30 Basophils 1 % (0-3) 08/28/17 06:30 Nucleated RBCs 2.0 % (0-0) H 09/01/17 05:30 Hypochromia 1+ 08/02/17 15:37 Platelet Estimate ADEQUATE (NORMAL) 08/28/17 06:30 Platelet Morphology NORMAL (NORMAL) 08/20/17 04:45 Anisocytosis 1+ 08/28/17 06:30 Crenated Cell 2+ 08/02/17 15:37 RBC Morph Micro Appear ABNORMAL (NORMAL) 08/02/17 15:37 PT 11.6 SECONDS (9.5-11.5) H 08/25/17 21:06 INR 1.11 (0.5-1.4) 08/25/17 21:06 PTT (Actin FS) 32.3 SECONDS (26.0-38.0) 08/25/17 21:06 Specimen Source Arterial 08/03/17 08:58 Sample Site Right Radial 08/03/17 08:58 pH 7.42 (7.35-7.45) 08/03/17 08:58 pCO2 37.0 mmHg (35.0-45.0) 08/03/17 08:58 pO2 204.0 mmHg (80.0-100.0) H 08/03/17 08:58 HCO3 24.8 mEq/L (20.0-26.0) 08/03/17 08:58 Base Excess -0.2 mEq/L (-3.0-3.0) 08/03/17 08:58 O2 Saturation 100.0 % (92.0-100.0) 08/03/17 08:58 Rhett Test Positive 08/03/17 08:58 Vent Rate 12 08/03/17 08:58 Inspired O2 60 08/03/17 08:58 Tidal Volume 450 08/03/17 08:58 PEEP 5 08/03/17 08:58 Pressure (ins/psv/peep) NA 08/03/17 08:58 Critical Value LZHANG 08/03/17 08:58 Sodium 136 mEq/L (136-145) 09/01/17 05:30 Potassium 3.3 mEq/L (3.5-5.1) L 09/01/17 05:30 Chloride 99 mEq/L (98-107) 09/01/17 05:30 Carbon Dioxide 25.0 mEq/L (21.0-31.0) 09/01/17 05:30 Anion Gap 15.3 (7.0-16.0) 09/01/17 05:30 BUN 28 mg/dL (7-25) H 09/01/17 05:30 Creatinine 2.1 mg/dL (0.6-1.2) H 09/01/17 05:30 Est GFR ( Amer) TNP 09/01/17 05:30 Est GFR (Non-Af Amer) TNP 09/01/17 05:30 BUN/Creatinine Ratio 13.3 09/01/17 05:30 Glucose 183 mg/dL (70-105) H 09/01/17 05:30 POC Glucose 188 MG/DL (70 - 105) H 09/01/17 05:06 Hemoglobin A1c % 7.7 % (4.0-6.0) H 08/02/17 15:37 Whole Bld Lactic Acid 1.97 mmol/L (0.60-1.99) 08/02/17 13:49 Calcium 8.5 mg/dL (8.6-10.3) L 09/01/17 05:30 Magnesium 1.8 mg/dL (1.9-2.7) L 08/28/17 04:20 Iron 10 ug/dL (27-139) L 08/02/17 13:56 TIBC 135 ug/dL (250-450) L 08/02/17 13:56 Iron Saturation 7 % (15-55) L 08/02/17 13:56 Unsaturated IBC 125 ug/dL (118-369) 08/02/17 13:56 Ferritin 588 ng/mL (15-150) H 08/02/17 13:56 Total Bilirubin 0.4 mg/dL (0.3-1.0) 08/26/17 06:05 Direct Bilirubin 0.09 mg/dL (0.0-0.2) 08/02/17 13:57 AST 34 U/L (13-39) 08/26/17 06:05 ALT 14 U/L (7-52) 08/26/17 06:05 Alkaline Phosphatase 70 U/L (34-104) 08/26/17 06:05 Troponin I 0.10 ng/mL (0.01-0.05) H* D 08/20/17 17:00 B-Natriuretic Peptide 839.0 pg/mL (5.0-100.0) H 08/19/17 04:58 Total Protein 6.3 gm/dL (6.0-8.3) 08/26/17 06:05 Albumin 2.7 gm/dL (3.7-5.3) L 08/26/17 06:05 Globulin 3.6 gm/dL 08/26/17 06:05 Albumin/Globulin Ratio 0.8 (1.0-1.8) L 08/26/17 06:05 Triglycerides 132 mg/dL (<150) 08/04/17 06:30 Cholesterol 55 mg/dL (<200) 08/04/17 06:30 LDL Cholesterol Direct 16 mg/dL (75-193) L 08/04/17 06:30 HDL Cholesterol 13 mg/dL (23-92) L 08/04/17 06:30 Amylase 12 U/L (29-103) L 08/02/17 13:43 Lipase 4 U/L (11-82) L 08/02/17 13:43 TSH 3.74 uIU/ml (0.34-5.60) 08/04/17 06:30 Stool Occult Blood POSITIVE (NEGATIVE) H 08/03/17 17:50 Random Vancomycin 34.8 ug/mL (5.0-40.0) 08/31/17 04:10 Hepatitis A IgM Ab Negative (Negative) 08/08/17 08:15 Hep Bs Antigen Negative (Negative) 08/08/17 08:15 Hep B Core IgM Ab Negative (Negative) 08/08/17 08:15 Hepatitis C Antibody <0.1 s/co ratio (0.0-0.9) 08/08/17 08:15 Blood Type A POSITIVE 08/26/17 23:45 Rho(D) Type Cancelled 08/26/17 23:46 Antibody Screen POSITIVE 08/26/17 23:45 Antibody Identification Anti-K 08/24/17 08:30 NEVILLE, IgG Interpret NEGATIVE 08/15/17 07:50 Crossmatch See Detail 08/26/17 23:46 Crossmatch (AHG) Cancelled 08/26/17 23:46 Donor Unit # Cancelled 08/26/17 23:46 BBK History Checked Cancelled 08/26/17 23:46 - Physical Exam Vitals and I&O: Vital Signs Temp 97.5 F 09/01/17 08:00 Pulse 75 09/01/17 11:26 Resp 17 09/01/17 11:00 BP 93/56 09/01/17 11:00 Pulse Ox 99 09/01/17 11:00 Intake & Output 08/31/17 09/01/17 09/01/17 18:59 06:59 18:59 Intake Total 50 2900 Output Total 3000 Balance 50 -100 Weight (lbs) 107.955 kg Intake: Intake, IV Amount 50 1000 Dextrose 5% 1,000 ml @ 20 1000 mls/hr IV .Q24H [facility] Rx#: [id number] Piperacillin Sodium/ 50 Tazobact 2.25 gm In Sodium Chloride 0.9% 50 ml @ 100 mls/hr IV Q8HR [facility] Rx#:[id number] Tube Feeding 1200 Albumin 200 Other 500 Output: Hemodialysis 3000 Other: # Voids 0 # Bowel Movements 2 Stool Characteristics Soft Soft Brown Brown Weight Source Bedscale Active Medications: Current Medications Acetaminophen (Tylenol 650mg/20.3ml Suspension) 650 mg GT DAILY [facility] Stop: 11/01/17 08:59 Albuterol/Ipratropium (Duoneb Neb) 3 ml HHN Q4HRT [facility] Stop: 10/19/17 10:59 Last Admin: 09/01/17 11:48 Dose: 3 ml Amiodarone HCl (Cordarone) 200 mg GT Q12H [facility] Stop: 10/20/17 10:59 Last Admin: 09/01/17 11:26 Dose: 200 mg Ascorbic Acid (Vitamin C) 500 mg PO DAILY [facility] Stop: 10/20/17 08:59 Last Admin: 09/01/17 08:15 Dose: 500 mg Aspirin (Aspirin Chewable) 81 mg PO DAILY [facility] Stop: 10/20/17 08:59 Last Admin: 09/01/17 08:14 Dose: 81 mg Atorvastatin Calcium (Lipitor) 40 mg GT DAILY [facility] PRN Reason: Protocol Stop: 10/20/17 08:59 Last Admin: 09/01/17 08:15 Dose: 40 mg Bisacodyl (Dulcolax 10 Mg Supp) 10 mg RC Q72HR PRN PRN Reason: if MOM ineffective Stop: 10/19/17 11:29 Chlorhexidine Gluconate (Peridex) 15 ml MM 0800,2000 [facility] Stop: 10/19/17 19:59 Last Admin: 09/01/17 08:16 Dose: 15 ml Cholecalciferol (Vitamin D3) 1,000 iu PO DAILY [facility] Stop: 10/20/17 08:59 Last Admin: 09/01/17 08:15 Dose: 1,000 iu Diltiazem HCl (Cardizem) 20 mg IV Q4HR PRN PRN Reason: HR ABOVE 120 Stop: 09/13/17 11:59 Docusate Sodium (Colace) 100 mg PO DAILY [facility] Stop: 10/20/17 08:59 Last Admin: 09/01/17 08:14 Dose: 100 mg Dopamine HCl/Dextrose (Dopamine) 400 mg in 250 mls @ 0 mls/hr IV TITR PRN; Protocol; 0 MCG/KG/MIN PRN Reason: BP MAINTENANCE (PER PROTOCOL) Stop: 10/19/17 11:28 Norepinephrine Bitartrate 8 mg (/ Sodium Chloride) 258 mls @ 34.83 mls/hr IV TITR PRN; Protocol; 18 MCG/MIN PRN Reason: BP MAINTENANCE (PER PROTOCOL) Stop: 10/19/17 11:09 Last Titration: 08/30/17 15:20 Dose: 0 mcg/min, 0 mls/hr Phenylephrine HCl 10 mg/ (Sodium Chloride) 250 mls @ 0 mls/hr IV TITR [facility]; Per Protocol PRN Reason: Protocol Stop: 10/24/17 10:29 Dextrose (D5w) 1,000 mls @ 20 mls/hr IV .Q24H [facility] Stop: 10/28/17 18:43 Last Admin: 09/01/17 05:14 Dose: 20 mls/hr Piperacillin Sod/Tazobactam (Sod 2.25 gm/ Sodium Chloride) 50 mls @ 100 mls/hr IV Q8HR [facility] Stop: 09/06/17 04:59 Last Admin: 09/01/17 05:09 Dose: 100 mls/hr Insulin Aspart (Novolog Insulin Sliding Scale) 0 units SUBQ Q6HR [facility] PRN Reason: Protocol Stop: 10/19/17 11:59 Last Admin: 09/01/17 11:36 Dose: 2 units Insulin Detemir (Levemir Insulin) 16 units SUBQ HS [facility] PRN Reason: Protocol Stop: 10/19/17 20:59 Last Admin: 08/31/17 21:17 Dose: 16 units Lactobacillus Rhamnosus (Culturelle 15b) 1 each PO DAILY [facility] Stop: 10/20/17 08:59 Last Admin: 09/01/17 08:18 Dose: 1 each Lorazepam (Ativan) 2 mg IVP Q4HR PRN; Protocol PRN Reason: Agitation Stop: 10/15/17 11:49 Last Admin: 09/01/17 11:26 Dose: 2 mg Magnesium Hydroxide (Milk Of Magnesia) 30 ml PO Q72HR PRN PRN Reason: Constipation Stop: 10/19/17 11:44 Midodrine (Proamatine) 10 mg PO BID [facility] Stop: 10/28/17 16:59 Last Admin: 09/01/17 08:15 Dose: 10 mg Mirtazapine (Remeron) 15 mg GT [facility] PRN Reason: Protocol Stop: 10/19/17 20:59 Last Admin: 08/31/17 21:12 Dose: 15 mg Miscellaneous (Probiotic Screen) 1 ea MC PRN PRN PRN Reason: PROTOCOL Stop: 10/22/17 10:29 Multivitamins/Vitamin C (Theragran) 1 tab PO DAILY [facility] Stop: 10/20/17 08:59 Last Admin: 09/01/17 08:15 Dose: 1 tab Ondansetron HCl (Zofran) 4 mg IV Q6H PRN PRN Reason: Nausea / Vomiting Stop: 10/19/17 11:40 Pantoprazole Sodium (Protonix) 40 mg IVP BID [facility] Stop: 10/28/17 16:59 Last Admin: 09/01/17 08:17 Dose: 40 mg Simethicone (Mylicon) 80 mg GT Q6HR PRN PRN Reason: Gas Stop: 10/19/17 11:59 Sodium Phosphate (Fleet Enema) 135 ml RC PRN PRN PRN Reason: If MOM/Dulcolax ineffective Stop: 10/19/17 11:29 Zinc Sulfate (Zinc Sulfate) 220 mg PO DAILY [facility] Stop: 10/20/17 08:59 Last Admin: 09/01/17 08:15 Dose: 220 mg General: Alert, No acute distress (scattered rhonchi) HEENT: Atraumatic, Mucous membr. moist/pink Neck: Supple, +2 carotid pulse wo bruit Cardiovascular: Regular rate, Normal S1, Normal S2 Lungs: Other (scattered rhonchi) Abdomen: Bowel sounds, Soft, Other (INTACT GT), no Distended, no Rebound, no Guarding Extremities: Edema (upper wxtrmities), Other (upper ext) Neurological: Sensation intact Skin: no Rash Psych/Mental Status: Mood NL - Procedures Procedures: Procedures Procedure Code Date BLOOD TRANSFUSION SERVICE 88866 08/02/17 EXCISION OF STOMACH, ENDO, DIAGN [id number] 07/10/17 INSPECTION OF LOWER INTESTINAL TRACT, ENDO [id number] 07/10/17 PERFORMANCE OF URINARY FILTRATION, <6 HRS/DAY [id number] 07/10/17 RESPIRATORY VENTILATION, GREATER THAN 96 CONSECUTIVE HOURS [id number] 08/02/17 TRANSFUSE NONAUT RED BLOOD CELLS IN PERIPH VEIN, PERC 27437G8 08/02/17 Assessment/Plan - Assessment Assessment: 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/L UE Edema, Cellulitis Shock Sepsis RF on Vent Acute on Chronic Decomp CHF G (-) Septicemia A. fib to V. tach Severe acute anemia 2/2 GI bleed? Peripheral Edema - Plan Plan: Lab - Result Diagrams 08/04/17 06:30 08/04/17 06:30 Current Medications Acetaminophen (Tylenol 650mg/20.3ml Suspension) 650 mg GT DAILY [facility] Stop: 10/03/17 08:59 Last Admin: 08/04/17 09:18 Dose: 650 mg Albuterol/Ipratropium (Duoneb Neb) 3 ml HHN Q4HRT [facility] Stop: 10/02/17 10:59 Last Admin: 08/04/17 11:25 Dose: 3 ml Ascorbic Acid (Vitamin C) 500 mg PO DAILY [facility] Stop: 10/03/17 08:59 Last Admin: 08/04/17 09:18 Dose: 500 mg Aspirin (Aspirin Chewable) 81 mg GT DAILY [facility] Stop: 10/03/17 08:59 Last Admin: 08/04/17 09:18 Dose: 81 mg Atorvastatin Calcium (Lipitor) 40 mg GT HS [facility] PRN Reason: Protocol Stop: 10/02/17 20:59 Last Admin: 08/03/17 20:19 Dose: 40 mg Bisacodyl (Dulcolax 10 Mg Supp) 10 mg RC Q72HR PRN PRN Reason: IF MOM INEFFECTIVE Stop: 10/02/17 14:13 Bisacodyl (Dulcolax 10 Mg Supp) 10 mg RC PRN PRN PRN Reason: IF MOM INEFFECTIVE Stop: 10/02/17 14:13 Chlorhexidine Gluconate (Peridex) 15 ml MM 0800,2000 [facility] Stop: 10/02/17 07:59 Last Admin: 08/04/17 08:00 Dose: 15 ml Cholecalciferol (Vitamin D3) 1,000 iu GT DAILY [facility] Stop: 10/03/17 08:59 Last Admin: 08/04/17 09:18 Dose: 1,000 iu Diltiazem HCl (Cardizem) 5 mg IVP Q4H PRN PRN Reason: INCREASE HEART RATE Stop: 10/01/17 21:59 Last Admin: 08/03/17 01:38 Dose: 5 mg Docusate Sodium (Colace) 100 mg PO DAILY [facility] Stop: 10/03/17 08:59 Last Admin: 08/04/17 09:18 Dose: 100 mg Heparin Sodium (Porcine) (Heparin) 5,000 units HD UD [facility] Stop: 08/05/17 08:59 Last Admin: 08/04/17 09:19 Dose: Not Given Fluconazole (Diflucan) 200 mg in 100 mls @ 100 mls/hr IV Q24HR [facility] Stop: 10/02/17 14:59 Last Infusion: 08/03/17 15:40 Dose: Infused Meropenem 500 mg/ Sodium (Chloride) 100 mls @ 100 mls/hr IV Q24H [facility] Stop: 10/02/17 12:59 Last Admin: 08/04/17 13:17 Dose: 100 mls/hr Dopamine HCl/Dextrose (Dopamine) 400 mg in 250 mls @ 0 mls/hr IV TITR PRN; Protocol; Per Protocol PRN Reason: BP MAINTENANCE (PER PROTOCOL) Stop: 10/02/17 07:47 Norepinephrine Bitartrate 4 mg (/ Dextrose) 254 mls @ 0 mls/hr IV TITR PRN; Protocol; Per Protocol PRN Reason: BP MAINTENANCE (PER PROTOCOL) Stop: 10/02/17 08:31 Last Admin: 08/03/17 23:47 Dose: 4 mcg/min, 15.24 mls/hr Colistimethate Sodium 80 mg/ (Sodium Chloride) 100 mls @ 100 mls/hr IV Q36H [facility] Stop: 10/02/17 20:59 Last Infusion: 08/03/17 21:20 Dose: Infused Insulin Aspart (Novolog Insulin Sliding Scale) 0 units SUBQ Q6HR [facility] PRN Reason: Protocol Stop: 10/02/17 00:00 Last Admin: 08/04/17 11:30 Dose: 6 units Lorazepam (Ativan) 1 mg IVP Q2HR PRN; Protocol PRN Reason: Restlessness Stop: 10/01/17 21:18 Last Admin: 08/04/17 01:05 Dose: 1 mg Magnesium Hydroxide (Milk Of Magnesia) 30 ml GT Q72H PRN PRN Reason: NO BM FOR THREE DAYS Stop: 10/02/17 14:13 Mirtazapine (Remeron) 15 mg GT HS [facility] PRN Reason: Protocol Stop: 10/02/17 20:59 Last Admin: 08/03/17 20:19 Dose: 15 mg Miscellaneous (Vancomycin Iv Per Pharmacy) 1 ea PRN PRN PRN Reason: PROTOCOL Stop: 10/01/17 20:42 Miscellaneous (Zosyn Iv Per Pharmacy) 1 ea PRN PRN PRN Reason: PROTOCOL Stop: 10/01/17 20:42 Multivitamins/Vitamin C (Theragran) 1 tab PO DAILY [facility] Stop: 10/03/17 08:59 Last Admin: 08/04/17 09:18 Dose: 1 tab Ondansetron HCl (Zofran Odt) 4 mg PO Q6HR PRN PRN Reason: Nausea / Vomiting Stop: 10/02/17 14:13 Pantoprazole Sodium (Protonix) 40 mg IVP DAILY [facility] Stop: 10/02/17 08:59 Last Admin: 08/04/17 09:18 Dose: 40 mg Simethicone (Mylicon) 80 mg GT Q6H PRN PRN Reason: GAS PAIN Stop: 10/02/17 14:13 Sodium Phosphate (Fleet Enema) 118 ml RC PRN PRN PRN Reason: IF MOM/DULCOLAX INEFFECTIVE Stop: 10/02/17 14:13 Temazepam (Restoril) 15 mg GT HS PRN; Protocol PRN Reason: Insomnia Stop: 10/02/17 14:13 Last Admin: 08/03/17 20:19 Dose: 15 mg Zinc Sulfate (Zinc Sulfate) 220 mg GT DAILY [facility] Stop: 10/03/17 08:59 Last Admin: 08/04/17 09:18 Dose: 220 Lab - Result Diagrams 09/01/17 05:30 09/01/17 05:30 schedule for HD in am CXR still showed persistent b/l effusions, CHF, left > right replace K f/u electrolytes. cbc now off Levo BS low, monitor closely, hold Levemir, continue S/S wbc down to 13.2 if left AVF clotted request placement of sandor cath bleed scan neg Nutritional Asmnt/Malnutr-PDOC - Dietary Evaluation Malnutrition Findings (Please click <Entered> for more info): Nutritional Asmnt/Malnutrition Start: 08/05/17 15: 53 Text: Status: Complete Freq: Document 08/05/17 15:53 LCNAVING (Rec: 08/05/17 16:19 LCNAVING [id number]) Nutritional Asmnt/Malnutrition Patient General Information Nutritional Screening High Risk Diagnosis sepsis, respiratory failure, ESRD Pertinent Medical Hx/Surgical Hx ESRD on HD, respiratory failure with tracheostomy, dysphagia, a fib, anemia, HTN, GERD Subjective Information Pt on vent, not able to interview. Pt was on TF Novosource Renal 30ml/hr continuous, NPO today for surgery. Pt has dialysis ordred per nurse note. Current Diet Order/ Nutrition Support NPO on 08/05 Pertinent Medications vit C, vit D3, colace, novolog , remeron, theragran, protonix , zinc Pertinent Labs 08/05 Na 134, K 3.6, Cl 102, BUN 77, Cr 4.2, Glucose 216, POC 224-233 08/02 A1c 7.7 Nutritional Hx/Data Height 1.6 m Height (Calculated Centimeters) 160.0 Current Weight (lbs) 87.543 kg Weight (Calculated Kilograms) 87.5 Weight (Calculated Grams) 31976.3 [place] Body Weight 115 Body Mass Index (BMI) 34.2 Weight Status Obese GI Symptoms GI Symptoms None Last BM 08/04 Difficult in: None Skin Integrity/Comment: reddened to left/right inner thigh, right lateral index finger, right/left arm; skin tear to left abdominal fold; pressure area to coccy/sacral Estimated Nutritional Goals BEE in Kcals: Adj wt of IBW Calories/Kcals/Kg 30-35 adj wt 61kg Kcals Calculated 3314-3886 Protein: Adj wt of IBW Protein g/k.2-1.4 Protein Calculated 73-85 Fluid: ml 1830-2135ml (1ml/kcal) Nutritional Problem 1. Problem Problem altered nutrition related lab values Etiology hx of ESRD, endocrine dysfunction Signs/Symptoms: BUN 77, Cr 4.2, Glucose 216, POC 224-233, A1c 7.7 Malnutrition Alert Protein-Calorie Malnutrition N/A Is there a minimum of two criteria No selected? Query Text:Check all the applicable criteria. A minimum of two criteria are recommended for diagnosis of either severe or non-severe malnutrition. Intervention/Recommendation Comments 1. Resume TF Novosource Renal 30ml/hr continuous as ordered. increase to goal rate of 40ml /hr continuous as tolerated. This will provide 1920kcal, 87g protein and 688ml free water, meeting 100% of nutritional needs 2. Monitor TF rate, tolerance, wt weekly, skin integrity and labs 3. F/U as high risk in 2-3 days, 3/1-3/2 Expected Outcomes/Goals Expected Outcomes/Goals 1. Pt to meet at least 75% of nutritional needs via nutrition support with tolerance 2. Wt stability, skin to remain intact, labs to approach WNL.
--- NOTE | 2017-09-01 15:23 | General Progress Note ---
Subjective - Review of Systems Events since last encounter: patient awake alert in no distress on vent Subjective: still on levophed Objective - Results Result Diagrams: 09/01/17 05:30 09/01/17 05:30 Recent Labs: Laboratory Last Values WBC 13.2 Th/cmm (4.8-10.8) H 09/01/17 05:30 Corrected WBC (auto) 12.0 Th/cmm (4.8-10.8) H 09/01/17 04:15 RBC 3.12 Mil/cmm (3.80-5.20) L 09/01/17 05:30 Hgb 9.7 gm/dL (12-16) L 09/01/17 05:30 Hct 28.8 % (41.0-60) L 09/01/17 05:30 MCV 92.2 fl (81-100) 09/01/17 05:30 MCH 31.2 pg (27.0-31.0) H 09/01/17 05:30 MCHC Differential 33.8 pg (28.0-36.0) 09/01/17 05:30 RDW 15.5 % (11.5-20.0) 09/01/17 05:30 Plt Count 167 Th/cmm (150-400) 09/01/17 05:30 MPV 10.2 fl 09/01/17 05:30 Neutrophils % 85.7 % (40.0-80.0) H 08/31/17 04:10 Band Neutrophils % 4 % (0-10) 09/01/17 05:30 Lymphocytes % 3.8 % (20.0-50.0) L 08/31/17 04:10 Monocytes % 7.8 % (2.0-10.0) 08/31/17 04:10 Eosinophils % 2.7 % (0.0-5.0) 08/31/17 04:10 Basophils % 0.0 % (0.0-2.0) 08/31/17 04:10 Neutrophils (Manual) 90 % (40-80) H 09/01/17 05:30 Lymphocytes 2 % (20-50) L 09/01/17 05:30 Monocytes 3 % (2-10) 09/01/17 05:30 Eosinophils 1 % (0-5) 09/01/17 05:30 Basophils 1 % (0-3) 08/28/17 06:30 Nucleated RBCs 2.0 % (0-0) H 09/01/17 05:30 Hypochromia 1+ 08/02/17 15:37 Platelet Estimate ADEQUATE (NORMAL) 08/28/17 06:30 Platelet Morphology NORMAL (NORMAL) 08/20/17 04:45 Anisocytosis 1+ 08/28/17 06:30 Crenated Cell 2+ 08/02/17 15:37 RBC Morph Micro Appear ABNORMAL (NORMAL) 08/02/17 15:37 PT 11.6 SECONDS (9.5-11.5) H 08/25/17 21:06 INR 1.11 (0.5-1.4) 08/25/17 21:06 PTT (Actin FS) 32.3 SECONDS (26.0-38.0) 08/25/17 21:06 Specimen Source Arterial 08/03/17 08:58 Sample Site Right Radial 08/03/17 08:58 pH 7.42 (7.35-7.45) 08/03/17 08:58 pCO2 37.0 mmHg (35.0-45.0) 08/03/17 08:58 pO2 204.0 mmHg (80.0-100.0) H 08/03/17 08:58 HCO3 24.8 mEq/L (20.0-26.0) 08/03/17 08:58 Base Excess -0.2 mEq/L (-3.0-3.0) 08/03/17 08:58 O2 Saturation 100.0 % (92.0-100.0) 08/03/17 08:58 Rhett Test Positive 08/03/17 08:58 Vent Rate 12 08/03/17 08:58 Inspired O2 60 08/03/17 08:58 Tidal Volume 450 08/03/17 08:58 PEEP 5 08/03/17 08:58 Pressure (ins/psv/peep) NA 08/03/17 08:58 Critical Value LZHANG 08/03/17 08:58 Sodium 136 mEq/L (136-145) 09/01/17 05:30 Potassium 3.3 mEq/L (3.5-5.1) L 09/01/17 05:30 Chloride 99 mEq/L (98-107) 09/01/17 05:30 Carbon Dioxide 25.0 mEq/L (21.0-31.0) 09/01/17 05:30 Anion Gap 15.3 (7.0-16.0) 09/01/17 05:30 BUN 28 mg/dL (7-25) H 09/01/17 05:30 Creatinine 2.1 mg/dL (0.6-1.2) H 09/01/17 05:30 Est GFR ( Amer) TNP 09/01/17 05:30 Est GFR (Non-Af Amer) TNP 09/01/17 05:30 BUN/Creatinine Ratio 13.3 09/01/17 05:30 Glucose 183 mg/dL (70-105) H 09/01/17 05:30 POC Glucose 163 MG/DL (70 - 105) H 09/01/17 11:32 Hemoglobin A1c % 7.7 % (4.0-6.0) H 08/02/17 15:37 Whole Bld Lactic Acid 1.97 mmol/L (0.60-1.99) 08/02/17 13:49 Calcium 8.5 mg/dL (8.6-10.3) L 09/01/17 05:30 Magnesium 1.8 mg/dL (1.9-2.7) L 08/28/17 04:20 Iron 10 ug/dL (27-139) L 08/02/17 13:56 TIBC 135 ug/dL (250-450) L 08/02/17 13:56 Iron Saturation 7 % (15-55) L 08/02/17 13:56 Unsaturated IBC 125 ug/dL (118-369) 08/02/17 13:56 Ferritin 588 ng/mL (15-150) H 08/02/17 13:56 Total Bilirubin 0.4 mg/dL (0.3-1.0) 08/26/17 06:05 Direct Bilirubin 0.09 mg/dL (0.0-0.2) 08/02/17 13:57 AST 34 U/L (13-39) 08/26/17 06:05 ALT 14 U/L (7-52) 08/26/17 06:05 Alkaline Phosphatase 70 U/L (34-104) 08/26/17 06:05 Troponin I 0.10 ng/mL (0.01-0.05) H* D 08/20/17 17:00 B-Natriuretic Peptide 839.0 pg/mL (5.0-100.0) H 08/19/17 04:58 Total Protein 6.3 gm/dL (6.0-8.3) 08/26/17 06:05 Albumin 2.7 gm/dL (3.7-5.3) L 08/26/17 06:05 Globulin 3.6 gm/dL 08/26/17 06:05 Albumin/Globulin Ratio 0.8 (1.0-1.8) L 08/26/17 06:05 Triglycerides 132 mg/dL (<150) 08/04/17 06:30 Cholesterol 55 mg/dL (<200) 08/04/17 06:30 LDL Cholesterol Direct 16 mg/dL (75-193) L 08/04/17 06:30 HDL Cholesterol 13 mg/dL (23-92) L 08/04/17 06:30 Amylase 12 U/L (29-103) L 08/02/17 13:43 Lipase 4 U/L (11-82) L 08/02/17 13:43 TSH 3.74 uIU/ml (0.34-5.60) 08/04/17 06:30 Stool Occult Blood POSITIVE (NEGATIVE) H 08/03/17 17:50 Random Vancomycin 34.8 ug/mL (5.0-40.0) 08/31/17 04:10 Hepatitis A IgM Ab Negative (Negative) 08/08/17 08:15 Hep Bs Antigen Negative (Negative) 08/08/17 08:15 Hep B Core IgM Ab Negative (Negative) 08/08/17 08:15 Hepatitis C Antibody <0.1 s/co ratio (0.0-0.9) 08/08/17 08:15 Blood Type A POSITIVE 08/26/17 23:45 Rho(D) Type Cancelled 08/26/17 23:46 Antibody Screen POSITIVE 08/26/17 23:45 Antibody Identification Anti-K 08/24/17 08:30 NEVILLE, IgG Interpret NEGATIVE 08/15/17 07:50 Crossmatch See Detail 08/26/17 23:46 Crossmatch (AHG) Cancelled 08/26/17 23:46 Donor Unit # Cancelled 08/26/17 23:46 BBK History Checked Cancelled 08/26/17 23:46 - Physical Exam Vitals and I&O: Vital Signs Temp 97.5 F 09/01/17 08:00 Pulse 84 09/01/17 13:04 Resp 17 09/01/17 11:00 BP 93/56 09/01/17 11:00 Pulse Ox 100 09/01/17 13:04 Intake & Output 08/31/17 09/01/17 09/01/17 18:59 06:59 18:59 Intake Total 50 2950 Output Total 3000 Balance 50 -50 Weight (lbs) 107.955 kg Intake: Intake, IV Amount 50 1050 Dextrose 5% 1,000 ml @ 20 1000 mls/hr IV .Q24H [facility] Rx#: [id number] Piperacillin Sodium/ 50 Tazobact 2.25 gm In Sodium Chloride 0.9% 50 ml @ 100 mls/hr IV Q8HR [facility] Rx#:[id number] Piperacillin Sodium/ 50 Tazobact 2.25 gm In Sodium Chloride 0.9% 50 ml @ 100 mls/hr IV Q8HR [facility] Rx#:[id number] Tube Feeding 1200 Albumin 200 Other 500 Output: Hemodialysis 3000 Other: # Voids 0 # Bowel Movements 2 Stool Characteristics Soft Soft Brown Brown Weight Source Bedscale Active Medications: Current Medications Acetaminophen (Tylenol 650mg/20.3ml Suspension) 650 mg GT DAILY [facility] Stop: 11/01/17 08:59 Albuterol/Ipratropium (Duoneb Neb) 3 ml HHN Q4HRT [facility] Stop: 10/19/17 10:59 Last Admin: 09/01/17 11:48 Dose: 3 ml Amiodarone HCl (Cordarone) 200 mg GT Q12H [facility] Stop: 10/20/17 10:59 Last Admin: 09/01/17 11:26 Dose: 200 mg Ascorbic Acid (Vitamin C) 500 mg PO DAILY [facility] Stop: 10/20/17 08:59 Last Admin: 09/01/17 08:15 Dose: 500 mg Aspirin (Aspirin Chewable) 81 mg PO DAILY [facility] Stop: 10/20/17 08:59 Last Admin: 09/01/17 08:14 Dose: 81 mg Atorvastatin Calcium (Lipitor) 40 mg GT DAILY [facility] PRN Reason: Protocol Stop: 10/20/17 08:59 Last Admin: 09/01/17 08:15 Dose: 40 mg Bisacodyl (Dulcolax 10 Mg Supp) 10 mg RC Q72HR PRN PRN Reason: if MOM ineffective Stop: 10/19/17 11:29 Chlorhexidine Gluconate (Peridex) 15 ml MM 0800,1999 [facility] Stop: 10/19/17 19:59 Last Admin: 09/01/17 08:16 Dose: 15 ml Cholecalciferol (Vitamin D3) 1,000 iu PO DAILY [facility] Stop: 10/20/17 08:59 Last Admin: 09/01/17 08:15 Dose: 1,000 iu Diltiazem HCl (Cardizem) 20 mg IV Q4HR PRN PRN Reason: HR ABOVE 120 Stop: 09/13/17 11:59 Docusate Sodium (Colace) 100 mg PO DAILY [facility] Stop: 10/20/17 08:59 Last Admin: 09/01/17 08:14 Dose: 100 mg Dopamine HCl/Dextrose (Dopamine) 400 mg in 250 mls @ 0 mls/hr IV TITR PRN; Protocol; 0 MCG/KG/MIN PRN Reason: BP MAINTENANCE (PER PROTOCOL) Stop: 10/19/17 11:28 Norepinephrine Bitartrate 8 mg (/ Sodium Chloride) 258 mls @ 34.83 mls/hr IV TITR PRN; Protocol; 18 MCG/MIN PRN Reason: BP MAINTENANCE (PER PROTOCOL) Stop: 10/19/17 11:09 Last Titration: 08/30/17 15:20 Dose: 0 mcg/min, 0 mls/hr Phenylephrine HCl 10 mg/ (Sodium Chloride) 250 mls @ 0 mls/hr IV TITR [facility]; Per Protocol PRN Reason: Protocol Stop: 10/24/17 10:29 Dextrose (D5w) 1,000 mls @ 20 mls/hr IV .Q24H [facility] Stop: 10/28/17 18:43 Last Admin: 09/01/17 05:14 Dose: 20 mls/hr Piperacillin Sod/Tazobactam (Sod 2.25 gm/ Sodium Chloride) 50 mls @ 100 mls/hr IV Q8HR [facility] Stop: 09/06/17 04:59 Last Admin: 09/01/17 12:31 Dose: 100 mls/hr Insulin Aspart (Novolog Insulin Sliding Scale) 0 units SUBQ Q6HR [facility] PRN Reason: Protocol Stop: 10/19/17 11:59 Last Admin: 09/01/17 11:36 Dose: 2 units Insulin Detemir (Levemir Insulin) 16 units SUBQ HS [facility] PRN Reason: Protocol Stop: 10/19/17 20:59 Last Admin: 08/31/17 21:17 Dose: 16 units Lactobacillus Rhamnosus (Culturelle 15b) 1 each PO DAILY [facility] Stop: 10/20/17 08:59 Last Admin: 09/01/17 08:18 Dose: 1 each Lorazepam (Ativan) 2 mg IVP Q4HR PRN; Protocol PRN Reason: Agitation Stop: 10/15/17 11:49 Last Admin: 09/01/17 11:26 Dose: 2 mg Magnesium Hydroxide (Milk Of Magnesia) 30 ml PO Q72HR PRN PRN Reason: Constipation Stop: 10/19/17 11:44 Midodrine (Proamatine) 10 mg PO BID [facility] Stop: 10/28/17 16:59 Last Admin: 09/01/17 08:15 Dose: 10 mg Mirtazapine (Remeron) 15 mg GT HS [facility] PRN Reason: Protocol Stop: 10/19/17 20:59 Last Admin: 08/31/17 21:12 Dose: 15 mg Miscellaneous (Probiotic Screen) 1 ea MC PRN PRN PRN Reason: PROTOCOL Stop: 10/22/17 10:29 Multivitamins/Vitamin C (Theragran) 1 tab PO DAILY [facility] Stop: 10/20/17 08:59 Last Admin: 09/01/17 08:15 Dose: 1 tab Ondansetron HCl (Zofran) 4 mg IV Q6H PRN PRN Reason: Nausea / Vomiting Stop: 10/19/17 11:40 Pantoprazole Sodium (Protonix) 40 mg IVP BID [facility] Stop: 10/28/17 16:59 Last Admin: 09/01/17 08:17 Dose: 40 mg Simethicone (Mylicon) 80 mg GT Q6HR PRN PRN Reason: Gas Stop: 10/19/17 11:59 Sodium Phosphate (Fleet Enema) 135 ml RC PRN PRN PRN Reason: If MOM/Dulcolax ineffective Stop: 10/19/17 11:29 Zinc Sulfate (Zinc Sulfate) 220 mg PO DAILY [facility] Stop: 10/20/17 08:59 Last Admin: 09/01/17 08:15 Dose: 220 mg General: Alert, No acute distress (scattered rhonchi) HEENT: Atraumatic, Mucous membr. moist/pink Neck: Supple, +2 carotid pulse wo bruit Cardiovascular: Regular rate, Normal S1, Normal S2 Lungs: Other (scattered rhonchi) Abdomen: Bowel sounds, Soft, Other (INTACT GT), no Distended, no Rebound, no Guarding Extremities: Edema (upper wxtrmities), Other (upper ext) Neurological: Sensation intact Skin: no Rash Psych/Mental Status: Mood NL - Procedures Procedures: Procedures Procedure Code Date BLOOD TRANSFUSION SERVICE 51990 08/02/17 EXCISION OF STOMACH, ENDO, DIAGN [id number] 07/10/17 INSPECTION OF LOWER INTESTINAL TRACT, ENDO [id number] 07/10/17 PERFORMANCE OF URINARY FILTRATION, <6 HRS/DAY [id number] 07/10/17 RESPIRATORY VENTILATION, GREATER THAN 96 CONSECUTIVE HOURS [id number] 08/02/17 TRANSFUSE NONAUT RED BLOOD CELLS IN PERIPH VEIN, PERC [id number] 08/02/17 Nutritional Asmnt/Malnutr-PDOC - Dietary Evaluation Malnutrition Findings (Please click <Entered> for more info): Nutritional Asmnt/Malnutrition Start: 08/05/17 15: 53 Text: Status: Complete Freq: Document 08/05/17 15:53 NAVIN (Rec: 08/05/17 16:19 [id number] Nutritional Asmnt/Malnutrition Patient General Information Nutritional Screening High Risk Diagnosis sepsis, respiratory failure, ESRD Pertinent Medical Hx/Surgical Hx ESRD on HD, respiratory failure with tracheostomy, dysphagia, a fib, anemia, HTN, GERD Subjective Information Pt on vent, not able to interview. Pt was on TF Novosource Renal 30ml/hr continuous, NPO today for surgery. Pt has dialysis ordred per nurse note. Current Diet Order/ Nutrition Support NPO on 08/05 Pertinent Medications vit C, vit D3, colace, novolog , remeron, theragran, protonix , zinc Pertinent Labs 08/05 Na 134, K 3.6, Cl 102, BUN 77, Cr 4.2, Glucose 216, POC 224-233 08/02 A1c 7.7 Nutritional Hx/Data Height 1.6 m Height (Calculated Centimeters) 160.0 Current Weight (lbs) 87.543 kg Weight (Calculated Kilograms) 87.5 Weight (Calculated Grams) 96192.3 [place] Body Weight 115 Body Mass Index (BMI) 34.2 Weight Status Obese GI Symptoms GI Symptoms None Last BM 08/04 Difficult in: None Skin Integrity/Comment: reddened to left/right inner thigh, right lateral index finger, right/left arm; skin tear to left abdominal fold; pressure area to coccy/sacral Estimated Nutritional Goals BEE in Kcals: Adj wt of IBW Calories/Kcals/Kg 30-35 adj wt 61kg Kcals Calculated 5727-6823 Protein: Adj wt of IBW Protein g/k.2-1.4 Protein Calculated 73-85 Fluid: ml 1830-2135ml (1ml/kcal) Nutritional Problem 1. Problem Problem altered nutrition related lab values Etiology hx of ESRD, endocrine dysfunction Signs/Symptoms: BUN 77, Cr 4.2, Glucose 216, POC 224-233, A1c 7.7 Malnutrition Alert Protein-Calorie Malnutrition N/A Is there a minimum of two criteria No selected? Query Text:Check all the applicable criteria. A minimum of two criteria are recommended for diagnosis of either severe or non-severe malnutrition. Intervention/Recommendation Comments 1. Resume TF Novosource Renal 30ml/hr continuous as ordered. increase to goal rate of 40ml /hr continuous as tolerated. This will provide 1920kcal, 87g protein and 688ml free water, meeting 100% of nutritional needs 2. Monitor TF rate, tolerance, wt weekly, skin integrity and labs 3. F/U as high risk in 2-3 days, 08/07-08/08 Expected Outcomes/Goals Expected Outcomes/Goals 1. Pt to meet at least 75% of nutritional needs via nutrition support with tolerance 2. Wt stability, skin to remain intact, labs to approach WNL.
[2017-09-01] MEDS: Insulin Detemir 100 units/mL 10mL Vial SUBQ SCH (21:34)
--- NOTE | 2017-09-01 23:39 | Infectious Disease Prog Note ---
Infectious Disease Subjective - Review of Systems Service Date: 09/01/17 Subjective: no fever. Off levophed . Infectious Disease Objective - Results Result Diagrams: 09/01/17 05:30 09/01/17 05:30 Recent Labs: Laboratory Last Values WBC 13.2 Th/cmm (4.8-10.8) H 09/01/17 05:30 Corrected WBC (auto) 12.0 Th/cmm (4.8-10.8) H 09/01/17 04:15 RBC 3.12 Mil/cmm (3.80-5.20) L 09/01/17 05:30 Hgb 9.7 gm/dL (12-16) L 09/01/17 05:30 Hct 28.8 % (41.0-60) L 09/01/17 05:30 MCV 92.2 fl (81-100) 09/01/17 05:30 MCH 31.2 pg (27.0-31.0) H 09/01/17 05:30 MCHC Differential 33.8 pg (28.0-36.0) 09/01/17 05:30 RDW 15.5 % (11.5-20.0) 09/01/17 05:30 Plt Count 167 Th/cmm (150-400) 09/01/17 05:30 MPV 10.2 fl 09/01/17 05:30 Neutrophils % 85.7 % (40.0-80.0) H 08/31/17 04:10 Band Neutrophils % 4 % (0-10) 09/01/17 05:30 Lymphocytes % 3.8 % (20.0-50.0) L 08/31/17 04:10 Monocytes % 7.8 % (2.0-10.0) 08/31/17 04:10 Eosinophils % 2.7 % (0.0-5.0) 08/31/17 04:10 Basophils % 0.0 % (0.0-2.0) 08/31/17 04:10 Neutrophils (Manual) 90 % (40-80) H 09/01/17 05:30 Lymphocytes 2 % (20-50) L 09/01/17 05:30 Monocytes 3 % (2-10) 09/01/17 05:30 Eosinophils 1 % (0-5) 09/01/17 05:30 Basophils 1 % (0-3) 08/28/17 06:30 Nucleated RBCs 2.0 % (0-0) H 09/01/17 05:30 Hypochromia 1+ 08/02/17 15:37 Platelet Estimate ADEQUATE (NORMAL) 08/28/17 06:30 Platelet Morphology NORMAL (NORMAL) 08/20/17 04:45 Anisocytosis 1+ 08/28/17 06:30 Crenated Cell 2+ 08/02/17 15:37 RBC Morph Micro Appear ABNORMAL (NORMAL) 08/02/17 15:37 PT 11.6 SECONDS (9.5-11.5) H 08/25/17 21:06 INR 1.11 (0.5-1.4) 08/25/17 21:06 PTT (Actin FS) 32.3 SECONDS (26.0-38.0) 08/25/17 21:06 Specimen Source Arterial 08/03/17 08:58 Sample Site Right Radial 08/03/17 08:58 pH 7.42 (7.35-7.45) 08/03/17 08:58 pCO2 37.0 mmHg (35.0-45.0) 08/03/17 08:58 pO2 204.0 mmHg (80.0-100.0) H 08/03/17 08:58 HCO3 24.8 mEq/L (20.0-26.0) 08/03/17 08:58 Base Excess -0.2 mEq/L (-3.0-3.0) 08/03/17 08:58 O2 Saturation 100.0 % (92.0-100.0) 08/03/17 08:58 Rhett Test Positive 08/03/17 08:58 Vent Rate 12 08/03/17 08:58 Inspired O2 60 08/03/17 08:58 Tidal Volume 450 08/03/17 08:58 PEEP 5 08/03/17 08:58 Pressure (ins/psv/peep) NA 08/03/17 08:58 Critical Value LZHANG 08/03/17 08:58 Sodium 136 mEq/L (136-145) 09/01/17 05:30 Potassium 3.3 mEq/L (3.5-5.1) L 09/01/17 05:30 Chloride 99 mEq/L (98-107) 09/01/17 05:30 Carbon Dioxide 25.0 mEq/L (21.0-31.0) 09/01/17 05:30 Anion Gap 15.3 (7.0-16.0) 09/01/17 05:30 BUN 28 mg/dL (7-25) H 09/01/17 05:30 Creatinine 2.1 mg/dL (0.6-1.2) H 09/01/17 05:30 Est GFR ( Amer) TNP 09/01/17 05:30 Est GFR (Non-Af Amer) TNP 09/01/17 05:30 BUN/Creatinine Ratio 13.3 09/01/17 05:30 Glucose 183 mg/dL (70-105) H 09/01/17 05:30 POC Glucose 115 MG/DL (70 - 105) H 09/01/17 17:10 Hemoglobin A1c % 7.7 % (4.0-6.0) H 08/02/17 15:37 Whole Bld Lactic Acid 1.97 mmol/L (0.60-1.99) 08/02/17 13:49 Calcium 8.5 mg/dL (8.6-10.3) L 09/01/17 05:30 Magnesium 1.8 mg/dL (1.9-2.7) L 08/28/17 04:20 Iron 10 ug/dL (27-139) L 08/02/17 13:56 TIBC 135 ug/dL (250-450) L 08/02/17 13:56 Iron Saturation 7 % (15-55) L 08/02/17 13:56 Unsaturated IBC 125 ug/dL (118-369) 08/02/17 13:56 Ferritin 588 ng/mL (15-150) H 08/02/17 13:56 Total Bilirubin 0.4 mg/dL (0.3-1.0) 08/26/17 06:05 Direct Bilirubin 0.09 mg/dL (0.0-0.2) 08/02/17 13:57 AST 34 U/L (13-39) 08/26/17 06:05 ALT 14 U/L (7-52) 08/26/17 06:05 Alkaline Phosphatase 70 U/L (34-104) 08/26/17 06:05 Troponin I 0.10 ng/mL (0.01-0.05) H* D 08/20/17 17:00 B-Natriuretic Peptide 839.0 pg/mL (5.0-100.0) H 08/19/17 04:58 Total Protein 6.3 gm/dL (6.0-8.3) 08/26/17 06:05 Albumin 2.7 gm/dL (3.7-5.3) L 08/26/17 06:05 Globulin 3.6 gm/dL 08/26/17 06:05 Albumin/Globulin Ratio 0.8 (1.0-1.8) L 08/26/17 06:05 Triglycerides 132 mg/dL (<150) 08/04/17 06:30 Cholesterol 55 mg/dL (<200) 08/04/17 06:30 LDL Cholesterol Direct 16 mg/dL (75-193) L 08/04/17 06:30 HDL Cholesterol 13 mg/dL (23-92) L 08/04/17 06:30 Amylase 12 U/L (29-103) L 08/02/17 13:43 Lipase 4 U/L (11-82) L 08/02/17 13:43 TSH 3.74 uIU/ml (0.34-5.60) 08/04/17 06:30 Stool Occult Blood POSITIVE (NEGATIVE) H 08/03/17 17:50 Random Vancomycin 34.8 ug/mL (5.0-40.0) 08/31/17 04:10 Hepatitis A IgM Ab Negative (Negative) 08/08/17 08:15 Hep Bs Antigen Negative (Negative) 08/08/17 08:15 Hep B Core IgM Ab Negative (Negative) 08/08/17 08:15 Hepatitis C Antibody <0.1 s/co ratio (0.0-0.9) 08/08/17 08:15 Blood Type A POSITIVE 08/26/17 23:45 Rho(D) Type Cancelled 08/26/17 23:46 Antibody Screen POSITIVE 08/26/17 23:45 Antibody Identification Anti-K 08/24/17 08:30 [place], IgG Interpret NEGATIVE 08/15/17 07:50 Crossmatch See Detail 08/26/17 23:46 Crossmatch (AHG) Cancelled 08/26/17 23:46 Donor Unit # Cancelled 08/26/17 23:46 BBK History Checked Cancelled 08/26/17 23:46 - Physical Exam Vitals and I&O: Vital Signs Temp 98.6 F 09/01/17 20:00 Pulse 79 09/01/17 23:02 Resp 16 09/01/17 22:00 BP 90/31 09/01/17 22:00 Pulse Ox 100 09/01/17 23:02 Intake & Output 09/01/17 09/01/17 09/02/17 06:59 18:59 06:59 Intake Total 2950 850 326.333 Output Total 3000 0 Balance -50 850 326.333 Weight (lbs) 107.955 kg 107.955 kg Intake: Intake, IV Amount 1050 50 326.333 Dextrose 5% 1,000 ml @ 20 1000 326.333 mls/hr IV .Q24H [facility] Rx#: [id number] Piperacillin Sodium/ 50 50 Tazobact 2.25 gm In Sodium Chloride 0.9% 50 ml @ 100 mls/hr IV Q8HR [facility] Rx#:[id number] Tube Feeding 1200 600 Albumin 200 Other 500 200 Output: Urine 0 Hemodialysis 3000 Other: # Voids 0 # Bowel Movements 2 2 Stool Characteristics Soft Soft Brown Brown Weight Source Bedscale Bedscale Active Medications: Current Medications Acetaminophen (Tylenol 650mg/20.3ml Suspension) 650 mg GT DAILY [facility] Stop: 11/01/17 08:59 Albuterol/Ipratropium (Duoneb Neb) 3 ml HHN Q4HRT [facility] Stop: 10/19/17 10:59 Last Admin: 09/01/17 23:02 Dose: 3 ml Amiodarone HCl (Cordarone) 200 mg GT Q12H [facility] Stop: 10/20/17 10:59 Last Admin: 09/01/17 11:26 Dose: 200 mg Ascorbic Acid (Vitamin C) 500 mg PO DAILY [facility] Stop: 10/20/17 08:59 Last Admin: 09/01/17 08:15 Dose: 500 mg Aspirin (Aspirin Chewable) 81 mg PO DAILY [facility] Stop: 10/20/17 08:59 Last Admin: 09/01/17 08:14 Dose: 81 mg Atorvastatin Calcium (Lipitor) 40 mg GT DAILY [facility] PRN Reason: Protocol Stop: 10/20/17 08:59 Last Admin: 09/01/17 08:15 Dose: 40 mg Bisacodyl (Dulcolax 10 Mg Supp) 10 mg RC Q72HR PRN PRN Reason: if MOM ineffective Stop: 10/19/17 11:29 Chlorhexidine Gluconate (Peridex) 15 ml MM 0800,1999 [facility] Stop: 10/19/17 19:59 Last Admin: 09/01/17 21:23 Dose: 15 ml Cholecalciferol (Vitamin D3) 1,000 iu PO DAILY [facility] Stop: 10/20/17 08:59 Last Admin: 09/01/17 08:15 Dose: 1,000 iu Diltiazem HCl (Cardizem) 20 mg IV Q4HR PRN PRN Reason: HR ABOVE 120 Stop: 09/13/17 11:59 Docusate Sodium (Colace) 100 mg PO DAILY [facility] Stop: 10/20/17 08:59 Last Admin: 09/01/17 08:14 Dose: 100 mg Dopamine HCl/Dextrose (Dopamine) 400 mg in 250 mls @ 0 mls/hr IV TITR PRN; Protocol; 0 MCG/KG/MIN PRN Reason: BP MAINTENANCE (PER PROTOCOL) Stop: 10/19/17 11:28 Norepinephrine Bitartrate 8 mg (/ Sodium Chloride) 258 mls @ 34.83 mls/hr IV TITR PRN; Protocol; 18 MCG/MIN PRN Reason: BP MAINTENANCE (PER PROTOCOL) Stop: 10/19/17 11:09 Last Titration: 08/30/17 15:20 Dose: 0 mcg/min, 0 mls/hr Phenylephrine HCl 10 mg/ (Sodium Chloride) 250 mls @ 0 mls/hr IV TITR [facility]; Per Protocol PRN Reason: Protocol Stop: 10/24/17 10:29 Dextrose (D5w) 1,000 mls @ 20 mls/hr IV .Q24H [facility] Stop: 10/28/17 18:43 Last Admin: 09/01/17 21:33 Dose: 20 mls/hr Piperacillin Sod/Tazobactam (Sod 2.25 gm/ Sodium Chloride) 50 mls @ 100 mls/hr IV Q8HR [facility] Stop: 09/06/17 04:59 Last Admin: 09/01/17 21:24 Dose: 50 mls/hr Insulin Aspart (Novolog Insulin Sliding Scale) 0 units SUBQ Q6HR [facility] PRN Reason: Protocol Stop: 10/19/17 11:59 Last Admin: 09/01/17 17:30 Dose: Not Given Insulin Detemir (Levemir Insulin) 16 units SUBQ HS [facility] PRN Reason: Protocol Stop: 10/19/17 20:59 Last Admin: 09/01/17 21:34 Dose: 16 units Lactobacillus Rhamnosus (Culturelle 15b) 1 each PO DAILY [facility] Stop: 10/20/17 08:59 Last Admin: 09/01/17 08:18 Dose: 1 each Lorazepam (Ativan) 2 mg IVP Q4HR PRN; Protocol PRN Reason: Agitation Stop: 10/15/17 11:49 Last Admin: 09/01/17 17:04 Dose: 2 mg Magnesium Hydroxide (Milk Of Magnesia) 30 ml PO Q72HR PRN PRN Reason: Constipation Stop: 10/19/17 11:44 Midodrine (Proamatine) 10 mg PO BID [facility] Stop: 10/28/17 16:59 Last Admin: 09/01/17 17:05 Dose: 10 mg Mirtazapine (Remeron) 15 mg GT HS [facility] PRN Reason: Protocol Stop: 10/19/17 20:59 Last Admin: 09/01/17 21:25 Dose: 15 mg Miscellaneous (Probiotic Screen) 1 ea MC PRN PRN PRN Reason: PROTOCOL Stop: 10/22/17 10:29 Multivitamins/Vitamin C (Theragran) 1 tab PO DAILY [facility] Stop: 10/20/17 08:59 Last Admin: 09/01/17 08:15 Dose: 1 tab Ondansetron HCl (Zofran) 4 mg IV Q6H PRN PRN Reason: Nausea / Vomiting Stop: 10/19/17 11:40 Pantoprazole Sodium (Protonix) 40 mg IVP BID [facility] Stop: 10/28/17 16:59 Last Admin: 09/01/17 17:04 Dose: 40 mg Simethicone (Mylicon) 80 mg GT Q6HR PRN PRN Reason: Gas Stop: 10/19/17 11:59 Sodium Phosphate (Fleet Enema) 135 ml RC PRN PRN PRN Reason: If MOM/Dulcolax ineffective Stop: 10/19/17 11:29 Zinc Sulfate (Zinc Sulfate) 220 mg PO DAILY [facility] Stop: 10/20/17 08:59 Last Admin: 09/01/17 08:15 Dose: 220 mg General: no acute distress, well developed, well nourished HEENT: atraumatic, normocephalic, PERRLA Neck: supple, tracheostomy, no thyromegaly Cardiovascular: S1S2, regular Lungs: clear to percussion, crackles Abdomen: soft, no tender, no distended Extremities: no cyanosis, no clubbing Neurological: awake, alert, other (Follows the commands.) Skin: no intact - Procedures Procedures: Procedures Procedure Code Date BLOOD TRANSFUSION SERVICE 34019 08/02/17 EXCISION OF STOMACH, ENDO, DIAGN [id number] 07/10/17 INSPECTION OF LOWER INTESTINAL TRACT, ENDO [id number] 07/10/17 PERFORMANCE OF URINARY FILTRATION, <6 HRS/DAY [id number] 07/10/17 RESPIRATORY VENTILATION, GREATER THAN 96 CONSECUTIVE HOURS [id number] 08/02/17 TRANSFUSE NONAUT RED BLOOD CELLS IN PERIPH VEIN, PERC [id number] 08/02/17 Infectious Disease Assmt/Plan - Assessment Assessment: 1. Septic shock. versus cardiogenic shock. imoroving. 2. Gram-negative negative bacteremia treated 3. Pneumonia. 4. 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 5. Diabetes mellitus type 2. 6. Obesity. 7. Hypotension resolved.. 8. Gi bleed. 9. Leukocytosis. - Plan Plan: Continue Zosyn x 4 days . Patient has poor prognosis . Nutritional Asmnt/Malnutr-PDOC - Dietary Evaluation Malnutrition Findings (Please click <Entered> for more info): Nutritional Asmnt/Malnutrition Start: 08/05/17 15: 53 Text: Status: Complete Freq: Document 08/05/17 15:53 [facility] (Rec: 08/05/17 16:19 [facility] [id number]) Nutritional Asmnt/Malnutrition Patient General Information Nutritional Screening High Risk Diagnosis sepsis, respiratory failure, ESRD Pertinent Medical Hx/Surgical Hx ESRD on HD, respiratory failure with tracheostomy, dysphagia, a fib, anemia, HTN, GERD Subjective Information Pt on vent, not able to interview. Pt was on TF Novosource Renal 30ml/hr continuous, NPO today for surgery. Pt has dialysis ordred per nurse note. Current Diet Order/ Nutrition Support NPO on 08/05 Pertinent Medications vit C, vit D3, colace, novolog , remeron, theragran, protonix , zinc Pertinent Labs 08/05 Na 134, K 3.6, Cl 102, BUN 77, Cr 4.2, Glucose 216, POC 224-233 08/02 A1c 7.7 Nutritional Hx/Data Height 1.6 m Height (Calculated Centimeters) 160.0 Current Weight (lbs) 87.543 kg Weight (Calculated Kilograms) 87.5 Weight (Calculated Grams) 09829.3 [place] Body Weight 115 Body Mass Index (BMI) 34.2 Weight Status Obese GI Symptoms GI Symptoms None Last BM 08/04 Difficult in: None Skin Integrity/Comment: reddened to left/right inner thigh, right lateral index finger, right/left arm; skin tear to left abdominal fold; pressure area to coccy/sacral Estimated Nutritional Goals BEE in Kcals: Adj wt of IBW Calories/Kcals/Kg 30-35 adj wt 61kg Kcals Calculated 3457-9870 Protein: Adj wt of IBW Protein g/k.2-1.4 Protein Calculated 73-85 Fluid: ml 1830-2135ml (1ml/kcal) Nutritional Problem 1. Problem Problem altered nutrition related lab values Etiology hx of ESRD, endocrine dysfunction Signs/Symptoms: BUN 77, Cr 4.2, Glucose 216, POC 224-233, A1c 7.7 Malnutrition Alert Protein-Calorie Malnutrition N/A Is there a minimum of two criteria No selected? Query Text:Check all the applicable criteria. A minimum of two criteria are recommended for diagnosis of either severe or non-severe malnutrition. Intervention/Recommendation Comments 1. Resume TF Novosource Renal 30ml/hr continuous as ordered. increase to goal rate of 40ml /hr continuous as tolerated. This will provide 1920kcal, 87g protein and 688ml free water, meeting 100% of nutritional needs 2. Monitor TF rate, tolerance, wt weekly, skin integrity and labs 3. F/U as high risk in 2-3 days, 08/07-08/08 Expected Outcomes/Goals Expected Outcomes/Goals 1. Pt to meet at least 75% of nutritional needs via nutrition support with tolerance 2. Wt stability, skin to remain intact, labs to approach WNL.
[2017-09-02] MEDS: INSULIN ASPART SLIDING SCALE 100 UNITS/ML UNIT SUBQ SCH ×4 (00:04→18:55)
[2017-09-02] MEDS: Albuterol/Ipratropium Neb 3 ML AERS HHN SCH ×6 (03:19→23:09)
[2017-09-02 04:34] LABS: HEMOGLOBIN 9.7 gm/dL (12-16); RED CELL DISTRIBUTION WIDTH 15.9 % (11.5-20.0)
[2017-09-02 04:39] LABS: MEAN CELL VOLUME 94.4 fl (81-100); MEAN CORPUSCULAR HEMOGLOBIN 32.9 pg (27.0-31.0); MEAN CORPUSCULAR HGB CONC 34.8 pg (28.0-36.0); PLATELET COUNT 181 Th/cmm (150-400); RED BLOOD COUNT 2.96 Mil/cmm (3.80-5.20)
[2017-09-02 04:51] LABS: ANION GAP 13.9 (7.0-16.0); BUN - UREA NITROGEN 35 mg/dL (7-25); CALCIUM SERUM 8.6 mg/dL (8.6-10.3); CARBON DIOXIDE 25.5 mEq/L (21.0-31.0); CHLORIDE 98 mEq/L (98-107); CREATININE - SERUM 2.5 mg/dL (0.6-1.2); GLUCOSE 136 mg/dL (70-105); POTASSIUM SERUM 3.4 mEq/L (3.5-5.1); SODIUM SERUM 134 mEq/L (136-145)
[2017-09-02 05:11] LABS: MANUAL DIFF REQUIRED? YES
[2017-09-02 05:35] LABS: BAND NEUTROPHILE 1 % (0-10); EOSINOPHIL 3 % (0-5); LYMPHOCYTE 5 % (20-50); MONOCYTE 4 % (2-10); NEUTROPHILS 87 % (40-80); TOTAL CELLS COUNTED 100
[2017-09-02 05:36] LABS: PLATELET ESTIMATE ADEQUATE (NORMAL)
--- NOTE | 2017-09-02 09:02 | Diagnostic Imaging Report ---
Portable chest x-ray HISTORY: Shortness of breath Compared with prior exam of September 01, 2017, there is persistent opacification of the majority of the left hemithorax consistent with a pleural effusion. Underlying consolidation and/or atelectasis cannot be excluded. Density also noted in the right lower hemithorax unchanged suggesting a small effusion. The heart is enlarged. IMPRESSION: 1. No significant change in the cardiopulmonary status as described above since September 01, 2017.
[2017-09-02] MEDS: Multivitamin Tab PO SCH (09:34)
[2017-09-02] MEDS: Aspirin 81mg Chewable Tab PO SCH (09:34)
[2017-09-02] MEDS: Lactobacillus Rhamnosus GG 15 Billion CFU CAP.SPRINK PO SCH (09:34)
[2017-09-02] MEDS: Chlorhexidine Gluconate 0.12% 15mL Mouthwash MM SCH ×2 (09:35→19:54)
--- NOTE | 2017-09-02 12:10 | Operative Report ---
DATE OF SURGERY: 08/26/2017 PREOPERATIVE DIAGNOSES: 1. End-stage renal disease. 2. Respiratory failure. 3. No access for hemodialysis treatment. POSTOPERATIVE DIAGNOSES: 1. End-stage renal disease. 2. Respiratory failure. 3. No access for hemodialysis treatment. OPERATION DONE: 1. Attempted placement of Perm-A-Cath, right subclavian vein. 2. Attempted placement of Perm-A-Cath, left subclavian vein. 3. Attempted placement of Perm-A-Cath, right femoral vein. 4. Venous cutdown of the left femoral vein. SURGEON: Dr. Johnson. ANESTHESIA: MAC. ANESTHESIOLOGIST: Dr. Mcclellan. INDICATINO FOR SURGERY: The patient with malfunctioning AV shunt left arm. DESCRIPTION OF THE PROCEDURE: Both chest were prepped with ChloraPrep and draped in appropriate manner. Ultrasound was used to locate the subclavian vein. The veins ____ on the left side. The vein was entered, but the guidewire would not go in on even under fluoroscopy, progression of the catheter forward was possible. Another attempt was made on the right subclavian vein with the same result. Both groins were prepped with Betadine and draped in appropriate manner. Ultrasound again was used to locate the femoral vein on the right side, but the guidewire would not progress interiorly and upward, this was abandoned. A 1% lidocaine was used to infiltrate the left groin. Following unsatisfactory progression with a wire and after locating the vein, a cut down was made and the saphenous vein was identified. This was cannulated with 18-gauge needle and guidewire was inserted and again there was failure of progression of the guidewire superiorly. This was abandoned. The incision was closed with 3-0 Vicryl subcutaneously and the skin with subcuticular suture of 4-0 Vicryl. The patient tolerated the procedure well. [facility]# [id number]
--- NOTE | 2017-09-02 13:24 | Internal Medicine Prog Note ---
Internal Medicine Subjective - Subjective Service Date: 09/02/17 Patient is:: awake, non-verbal Per staff patient has:: tolerating meds Internal Medicine Objective - Results Result Diagrams: 09/02/17 04:15 09/02/17 04:15 Recent Labs: Laboratory Last Values WBC 11.0 Th/cmm (4.8-10.8) H 09/02/17 04:15 Corrected WBC (auto) 12.0 Th/cmm (4.8-10.8) H 09/01/17 04:15 RBC 2.96 Mil/cmm (3.80-5.20) L 09/02/17 04:15 Hgb 9.7 gm/dL (12-16) L 09/02/17 04:15 Hct 28.0 % (41.0-60) L 09/02/17 04:15 MCV 94.4 fl (81-100) 09/02/17 04:15 MCH 32.9 pg (27.0-31.0) H 09/02/17 04:15 MCHC Differential 34.8 pg (28.0-36.0) 09/02/17 04:15 RDW 15.9 % (11.5-20.0) 09/02/17 04:15 Plt Count 181 Th/cmm (150-400) 09/02/17 04:15 MPV 10.0 fl 09/02/17 04:15 Neutrophils % 85.7 % (40.0-80.0) H 08/31/17 04:10 Band Neutrophils % 1 % (0-10) 09/02/17 04:15 Lymphocytes % 3.8 % (20.0-50.0) L 08/31/17 04:10 Monocytes % 7.8 % (2.0-10.0) 08/31/17 04:10 Eosinophils % 2.7 % (0.0-5.0) 08/31/17 04:10 Basophils % 0.0 % (0.0-2.0) 08/31/17 04:10 Neutrophils (Manual) 87 % (40-80) H 09/02/17 04:15 Lymphocytes 5 % (20-50) L 09/02/17 04:15 Monocytes 4 % (2-10) 09/02/17 04:15 Eosinophils 3 % (0-5) 09/02/17 04:15 Basophils 1 % (0-3) 08/28/17 06:30 Nucleated RBCs 1.0 % (0-0) H 09/02/17 04:15 Hypochromia 1+ 08/02/17 15:37 Platelet Estimate ADEQUATE (NORMAL) 09/02/17 04:15 Platelet Morphology NORMAL (NORMAL) 08/20/17 04:45 Anisocytosis 1+ 08/28/17 06:30 Crenated Cell 2+ 08/02/17 15:37 RBC Morph Micro Appear ABNORMAL (NORMAL) 08/02/17 15:37 PT 11.6 SECONDS (9.5-11.5) H 08/25/17 21:06 INR 1.11 (0.5-1.4) 08/25/17 21:06 PTT (Actin FS) 32.3 SECONDS (26.0-38.0) 08/25/17 21:06 Specimen Source Arterial 08/03/17 08:58 Sample Site Right Radial 08/03/17 08:58 pH 7.42 (7.35-7.45) 08/03/17 08:58 pCO2 37.0 mmHg (35.0-45.0) 08/03/17 08:58 pO2 204.0 mmHg (80.0-100.0) H 08/03/17 08:58 HCO3 24.8 mEq/L (20.0-26.0) 08/03/17 08:58 Base Excess -0.2 mEq/L (-3.0-3.0) 08/03/17 08:58 O2 Saturation 100.0 % (92.0-100.0) 08/03/17 08:58 Rhett Test Positive 08/03/17 08:58 Vent Rate 12 08/03/17 08:58 Inspired O2 60 08/03/17 08:58 Tidal Volume 450 08/03/17 08:58 PEEP 5 08/03/17 08:58 Pressure (ins/psv/peep) NA 08/03/17 08:58 Critical Value LZHANG 08/03/17 08:58 Sodium 134 mEq/L (136-145) L 09/02/17 04:15 Potassium 3.4 mEq/L (3.5-5.1) L 09/02/17 04:15 Chloride 98 mEq/L (98-107) 09/02/17 04:15 Carbon Dioxide 25.5 mEq/L (21.0-31.0) 09/02/17 04:15 Anion Gap 13.9 (7.0-16.0) 09/02/17 04:15 BUN 35 mg/dL (7-25) H 09/02/17 04:15 Creatinine 2.5 mg/dL (0.6-1.2) H 09/02/17 04:15 Est GFR ( Amer) TNP 09/02/17 04:15 Est GFR (Non-Af Amer) TNP 09/02/17 04:15 BUN/Creatinine Ratio 14.0 09/02/17 04:15 Glucose 136 mg/dL (70-105) H 09/02/17 04:15 POC Glucose 166 MG/DL (70 - 105) H 09/02/17 11:29 Hemoglobin A1c % 7.7 % (4.0-6.0) H 08/02/17 15:37 Whole Bld Lactic Acid 1.97 mmol/L (0.60-1.99) 08/02/17 13:49 Calcium 8.6 mg/dL (8.6-10.3) 09/02/17 04:15 Magnesium 1.8 mg/dL (1.9-2.7) L 08/28/17 04:20 Iron 10 ug/dL (27-139) L 08/02/17 13:56 TIBC 135 ug/dL (250-450) L 08/02/17 13:56 Iron Saturation 7 % (15-55) L 08/02/17 13:56 Unsaturated IBC 125 ug/dL (118-369) 08/02/17 13:56 Ferritin 588 ng/mL (15-150) H 08/02/17 13:56 Total Bilirubin 0.4 mg/dL (0.3-1.0) 08/26/17 06:05 Direct Bilirubin 0.09 mg/dL (0.0-0.2) 08/02/17 13:57 AST 34 U/L (13-39) 08/26/17 06:05 ALT 14 U/L (7-52) 08/26/17 06:05 Alkaline Phosphatase 70 U/L (34-104) 08/26/17 06:05 Troponin I 0.10 ng/mL (0.01-0.05) H* D 08/20/17 17:00 B-Natriuretic Peptide 839.0 pg/mL (5.0-100.0) H 08/19/17 04:58 Total Protein 6.3 gm/dL (6.0-8.3) 08/26/17 06:05 Albumin 2.7 gm/dL (3.7-5.3) L 08/26/17 06:05 Globulin 3.6 gm/dL 08/26/17 06:05 Albumin/Globulin Ratio 0.8 (1.0-1.8) L 08/26/17 06:05 Triglycerides 132 mg/dL (<150) 08/04/17 06:30 Cholesterol 55 mg/dL (<200) 08/04/17 06:30 LDL Cholesterol Direct 16 mg/dL (75-193) L 08/04/17 06:30 HDL Cholesterol 13 mg/dL (23-92) L 08/04/17 06:30 Amylase 12 U/L (29-103) L 08/02/17 13:43 Lipase 4 U/L (11-82) L 08/02/17 13:43 TSH 3.74 uIU/ml (0.34-5.60) 08/04/17 06:30 Stool Occult Blood POSITIVE (NEGATIVE) H 08/03/17 17:50 Random Vancomycin 26.2 ug/mL (5.0-40.0) 09/02/17 04:15 Hepatitis A IgM Ab Negative (Negative) 08/08/17 08:15 Hep Bs Antigen Negative (Negative) 08/08/17 08:15 Hep B Core IgM Ab Negative (Negative) 08/08/17 08:15 Hepatitis C Antibody <0.1 s/co ratio (0.0-0.9) 08/08/17 08:15 Blood Type A POSITIVE 08/26/17 23:45 Rho(D) Type Cancelled 08/26/17 23:46 Antibody Screen POSITIVE 08/26/17 23:45 Antibody Identification Anti-K 08/24/17 08:30 [place], IgG Interpret NEGATIVE 08/15/17 07:50 Crossmatch See Detail 08/26/17 23:46 Crossmatch (AHG) Cancelled 08/26/17 23:46 Donor Unit # Cancelled 08/26/17 23:46 BBK History Checked Cancelled 08/26/17 23:46 - Physical Exam Vitals and I&O: Vital Signs Temp 97.2 F 09/02/17 12:00 Pulse 71 09/02/17 13:00 Resp 16 09/02/17 13:00 BP 91/22 09/02/17 13:00 Pulse Ox 100 09/02/17 13:00 Intake & Output 09/01/17 09/02/17 09/02/17 18:59 06:59 18:59 Intake Total 850 426.333 Output Total 0 Balance 850 426.333 Weight (lbs) 238 lb Intake: Intake, IV Amount 50 426.333 Dextrose 5% 1,000 ml @ 20 326.333 mls/hr IV .Q24H [facility] Rx#: [id number] Piperacillin Sodium/ 50 100 Tazobact 2.25 gm In Sodium Chloride 0.9% 50 ml @ 100 mls/hr IV Q8HR [facility] Rx#:[id number] Tube Feeding 600 Other 200 Output: Urine 0 Other: # Bowel Movements 2 Stool Characteristics Soft Brown Weight Source Bedscale Active Medications: Current Medications Acetaminophen (Tylenol 650mg/20.3ml Suspension) 650 mg GT DAILY [facility] Stop: 11/01/17 08:59 Last Admin: 09/02/17 09:33 Dose: 650 mg Albuterol/Ipratropium (Duoneb Neb) 3 ml HHN Q4HRT [facility] Stop: 10/19/17 10:59 Last Admin: 09/02/17 11:56 Dose: 3 ml Amiodarone HCl (Cordarone) 200 mg GT Q12H [facility] Stop: 10/20/17 10:59 Last Admin: 09/02/17 11:27 Dose: Not Given Ascorbic Acid (Vitamin C) 500 mg PO DAILY [facility] Stop: 10/20/17 08:59 Last Admin: 09/02/17 09:34 Dose: 500 mg Aspirin (Aspirin Chewable) 81 mg PO DAILY [facility] Stop: 10/20/17 08:59 Last Admin: 09/02/17 09:34 Dose: 81 mg Atorvastatin Calcium (Lipitor) 40 mg GT DAILY [facility] PRN Reason: Protocol Stop: 10/20/17 08:59 Last Admin: 09/02/17 09:33 Dose: 40 mg Bisacodyl (Dulcolax 10 Mg Supp) 10 mg RC Q72HR PRN PRN Reason: if MOM ineffective Stop: 10/19/17 11:29 Chlorhexidine Gluconate (Peridex) 15 ml MM 0800,1999 [facility] Stop: 10/19/17 19:59 Last Admin: 09/02/17 09:35 Dose: 15 ml Cholecalciferol (Vitamin D3) 1,000 iu PO DAILY [facility] Stop: 10/20/17 08:59 Last Admin: 09/02/17 09:34 Dose: 1,000 iu Diltiazem HCl (Cardizem) 20 mg IV Q4HR PRN PRN Reason: HR ABOVE 120 Stop: 09/13/17 11:59 Docusate Sodium (Colace) 100 mg PO DAILY [facility] Stop: 10/20/17 08:59 Last Admin: 09/02/17 09:34 Dose: 100 mg Dopamine HCl/Dextrose (Dopamine) 400 mg in 250 mls @ 0 mls/hr IV TITR PRN; Protocol; 0 MCG/KG/MIN PRN Reason: BP MAINTENANCE (PER PROTOCOL) Stop: 10/19/17 11:28 Norepinephrine Bitartrate 8 mg (/ Sodium Chloride) 258 mls @ 34.83 mls/hr IV TITR PRN; Protocol; 18 MCG/MIN PRN Reason: BP MAINTENANCE (PER PROTOCOL) Stop: 10/19/17 11:09 Last Titration: 08/30/17 15:20 Dose: 0 mcg/min, 0 mls/hr Phenylephrine HCl 10 mg/ (Sodium Chloride) 250 mls @ 0 mls/hr IV TITR FOUZIA; Per Protocol PRN Reason: Protocol Stop: 10/24/17 10:29 Dextrose (D5w) 1,000 mls @ 20 mls/hr IV .Q24H [facility] Stop: 10/28/17 18:43 Last Admin: 09/01/17 21:33 Dose: 20 mls/hr Piperacillin Sod/Tazobactam (Sod 2.25 gm/ Sodium Chloride) 50 mls @ 100 mls/hr IV Q8HR [facility] Stop: 09/06/17 04:59 Last Admin: 09/02/17 12:52 Dose: 100 mls/hr Insulin Aspart (Novolog Insulin Sliding Scale) 0 units SUBQ Q6HR FOUZIA PRN Reason: Protocol Stop: 10/19/17 11:59 Last Admin: 09/02/17 06:42 Dose: Not Given Insulin Detemir (Levemir Insulin) 16 units SUBQ HS [facility] PRN Reason: Protocol Stop: 10/19/17 20:59 Last Admin: 09/01/17 21:34 Dose: 16 units Lactobacillus Rhamnosus (Culturelle 15b) 1 each PO DAILY FOUZIA Stop: 10/20/17 08:59 Last Admin: 09/02/17 09:34 Dose: 1 each Lorazepam (Ativan) 2 mg IVP Q4HR PRN; Protocol PRN Reason: Agitation Stop: 10/15/17 11:49 Last Admin: 09/02/17 09:33 Dose: 2 mg Magnesium Hydroxide (Milk Of Magnesia) 30 ml PO Q72HR PRN PRN Reason: Constipation Stop: 10/19/17 11:44 Midodrine (Proamatine) 10 mg PO BID [facility] Stop: 10/28/17 16:59 Last Admin: 09/02/17 09:34 Dose: 10 mg Mirtazapine (Remeron) 15 mg GT HS [facility] PRN Reason: Protocol Stop: 10/19/17 20:59 Last Admin: 09/01/17 21:25 Dose: 15 mg Miscellaneous (Probiotic Screen) 1 ea MC PRN PRN PRN Reason: PROTOCOL Stop: 10/22/17 10:29 Miscellaneous (Clinical Monitoring) 1 ea MC DAILY PRN PRN Reason: RENAL Stop: 11/01/17 09:25 Multivitamins/Vitamin C (Theragran) 1 tab PO DAILY FOUZIA Stop: 10/20/17 08:59 Last Admin: 09/02/17 09:34 Dose: 1 tab Ondansetron HCl (Zofran) 4 mg IV Q6H PRN PRN Reason: Nausea / Vomiting Stop: 10/19/17 11:40 Pantoprazole Sodium (Protonix) 40 mg IVP BID FOUZIA Stop: 10/28/17 16:59 Last Admin: 09/02/17 09:33 Dose: 40 mg Simethicone (Mylicon) 80 mg GT Q6HR PRN PRN Reason: Gas Stop: 10/19/17 11:59 Sodium Phosphate (Fleet Enema) 135 ml RC PRN PRN PRN Reason: If MOM/Dulcolax ineffective Stop: 10/19/17 11:29 Zinc Sulfate (Zinc Sulfate) 220 mg PO DAILY [facility] Stop: 10/20/17 08:59 Last Admin: 09/02/17 09:34 Dose: 220 mg General: weak, obtunded HEENT: NC/AT, PERRLA Neck: Supple Lungs: ronchi Abdomen: soft, non-tender, non-distended, +GT Neurological: unable to follow command - Procedures Procedures: Procedures Procedure Code Date BLOOD TRANSFUSION SERVICE 56794 08/02/17 EXCISION OF STOMACH, ENDO, DIAGN [id number] 07/10/17 INSPECTION OF LOWER INTESTINAL TRACT, ENDO [id number] 07/10/17 PERFORMANCE OF URINARY FILTRATION, <6 HRS/DAY [id number] 07/10/17 RESPIRATORY VENTILATION, GREATER THAN 96 CONSECUTIVE HOURS [id number] 08/02/17 TRANSFUSE NONAUT RED BLOOD CELLS IN PERIPH VEIN, PERC [id number] 08/02/17 Internal Medicine Assmt/Plan - Assessment Assessment: Assessment: 1. Septic shock. 2. Gram-negative negative bacteremia. 3. Pneumonia. 4. CK D stage V pneumatosis. 5. Diabetes mellitus type 2. 6. Obesity. 7. hypotension - Plan Plan: dc planning in progress monitor glucose cbc.bmp in am continue ivabx as per ID continue current orders Nutritional Asmnt/Malnutr-PDOC - Dietary Evaluation Malnutrition Findings (Please click <Entered> for more info): Nutritional Asmnt/Malnutrition Start: 08/05/17 15: 53 Text: Status: Complete Freq: Document 08/05/17 15:53 HENG (Rec[facility] 08[facility]05[facility]17 [id number] Nutritional Asmnt/Malnutrition Patient General Information Nutritional Screening High Risk Diagnosis sepsis, respiratory failure, ESRD Pertinent Medical Hx/Surgical Hx ESRD on HD, respiratory failure with tracheostomy, dysphagia, a fib, anemia, HTN, GERD Subjective Information Pt on vent, not able to interview. Pt was on TF Novosource Renal 30ml/hr continuous, NPO today for surgery. Pt has dialysis ordred per nurse note. Current Diet Order/ Nutrition Support NPO on 08/05 Pertinent Medications vit C, vit D3, colace, novolog , remeron, theragran, protonix , zinc Pertinent Labs 08/05 Na 134, K 3.6, Cl 102, BUN 77, Cr 4.2, Glucose 216, POC 224-233 08/02 A1c 7.7 Nutritional Hx/Data Height 5 ft 3 in Height (Calculated Centimeters) 160.0 Current Weight (lbs) 193 lb Weight (Calculated Kilograms) 87.5 Weight (Calculated Grams) 07959.3 [place] Body Weight 115 Body Mass Index (BMI) 34.2 Weight Status Obese GI Symptoms GI Symptoms None Last BM 08/04 Difficult in: None Skin Integrity/Comment: reddened to left/right inner thigh, right lateral index finger, right/left arm; skin tear to left abdominal fold; pressure area to coccy/sacral Estimated Nutritional Goals BEE in Kcals: Adj wt of IBW Calories/Kcals/Kg 30-35 adj wt 61kg Kcals Calculated 3138-0852 Protein: Adj wt of IBW Protein g/k.2-1.4 Protein Calculated 73-85 Fluid: ml 1830-2135ml (1ml/kcal) Nutritional Problem 1. Problem Problem altered nutrition related lab values Etiology hx of ESRD, endocrine dysfunction Signs/Symptoms: BUN 77, Cr 4.2, Glucose 216, POC 224-233, A1c 7.7 Malnutrition Alert Protein-Calorie Malnutrition N/A Is there a minimum of two criteria No selected? Query Text:Check all the applicable criteria. A minimum of two criteria are recommended for diagnosis of either severe or non-severe malnutrition. Intervention/Recommendation Comments 1. Resume TF Novosource Renal 30ml/hr continuous as ordered. increase to goal rate of 40ml /hr continuous as tolerated. This will provide 1920kcal, 87g protein and 688ml free water, meeting 100% of nutritional needs 2. Monitor TF rate, tolerance, wt weekly, skin integrity and labs 3. F/U as high risk in 2-3 days, 08/07-08/08 Expected Outcomes/Goals Expected Outcomes/Goals 1. Pt to meet at least 75% of nutritional needs via nutrition support with tolerance 2. Wt stability, skin to remain intact, labs to approach WNL.
--- NOTE | 2017-09-02 14:46 | General Progress Note ---
Subjective - Review of Systems Service Date: 09/02/17 Subjective: very awake, talking, on vent Objective - Results Result Diagrams: 09/02/17 04:15 09/02/17 04:15 Recent Labs: Laboratory Last Values WBC 11.0 Th/cmm (4.8-10.8) H 09/02/17 04:15 Corrected WBC (auto) 12.0 Th/cmm (4.8-10.8) H 09/01/17 04:15 RBC 2.96 Mil/cmm (3.80-5.20) L 09/02/17 04:15 Hgb 9.7 gm/dL (12-16) L 09/02/17 04:15 Hct 28.0 % (41.0-60) L 09/02/17 04:15 MCV 94.4 fl (81-100) 09/02/17 04:15 MCH 32.9 pg (27.0-31.0) H 09/02/17 04:15 MCHC Differential 34.8 pg (28.0-36.0) 09/02/17 04:15 RDW 15.9 % (11.5-20.0) 09/02/17 04:15 Plt Count 181 Th/cmm (150-400) 09/02/17 04:15 MPV 10.0 fl 09/02/17 04:15 Neutrophils % 85.7 % (40.0-80.0) H 08/31/17 04:10 Band Neutrophils % 1 % (0-10) 09/02/17 04:15 Lymphocytes % 3.8 % (20.0-50.0) L 08/31/17 04:10 Monocytes % 7.8 % (2.0-10.0) 08/31/17 04:10 Eosinophils % 2.7 % (0.0-5.0) 08/31/17 04:10 Basophils % 0.0 % (0.0-2.0) 08/31/17 04:10 Neutrophils (Manual) 87 % (40-80) H 09/02/17 04:15 Lymphocytes 5 % (20-50) L 09/02/17 04:15 Monocytes 4 % (2-10) 09/02/17 04:15 Eosinophils 3 % (0-5) 09/02/17 04:15 Basophils 1 % (0-3) 08/28/17 06:30 Nucleated RBCs 1.0 % (0-0) H 09/02/17 04:15 Hypochromia 1+ 08/02/17 15:37 Platelet Estimate ADEQUATE (NORMAL) 09/02/17 04:15 Platelet Morphology NORMAL (NORMAL) 08/20/17 04:45 Anisocytosis 1+ 08/28/17 06:30 Crenated Cell 2+ 08/02/17 15:37 RBC Morph Micro Appear ABNORMAL (NORMAL) 08/02/17 15:37 PT 11.6 SECONDS (9.5-11.5) H 08/25/17 21:06 INR 1.11 (0.5-1.4) 08/25/17 21:06 PTT (Actin FS) 32.3 SECONDS (26.0-38.0) 08/25/17 21:06 Specimen Source Arterial 08/03/17 08:58 Sample Site Right Radial 08/03/17 08:58 pH 7.42 (7.35-7.45) 08/03/17 08:58 pCO2 37.0 mmHg (35.0-45.0) 08/03/17 08:58 pO2 204.0 mmHg (80.0-100.0) H 08/03/17 08:58 HCO3 24.8 mEq/L (20.0-26.0) 08/03/17 08:58 Base Excess -0.2 mEq/L (-3.0-3.0) 08/03/17 08:58 O2 Saturation 100.0 % (92.0-100.0) 08/03/17 08:58 Rhett Test Positive 08/03/17 08:58 Vent Rate 12 08/03/17 08:58 Inspired O2 60 08/03/17 08:58 Tidal Volume 450 08/03/17 08:58 PEEP 5 08/03/17 08:58 Pressure (ins/psv/peep) NA 08/03/17 08:58 Critical Value LZHANG 08/03/17 08:58 Sodium 134 mEq/L (136-145) L 09/02/17 04:15 Potassium 3.4 mEq/L (3.5-5.1) L 09/02/17 04:15 Chloride 98 mEq/L (98-107) 09/02/17 04:15 Carbon Dioxide 25.5 mEq/L (21.0-31.0) 09/02/17 04:15 Anion Gap 13.9 (7.0-16.0) 09/02/17 04:15 BUN 35 mg/dL (7-25) H 09/02/17 04:15 Creatinine 2.5 mg/dL (0.6-1.2) H 09/02/17 04:15 Est GFR ( Amer) TNP 09/02/17 04:15 Est GFR (Non-Af Amer) TNP 09/02/17 04:15 BUN/Creatinine Ratio 14.0 09/02/17 04:15 Glucose 136 mg/dL (70-105) H 09/02/17 04:15 POC Glucose 166 MG/DL (70 - 105) H 09/02/17 11:29 Hemoglobin A1c % 7.7 % (4.0-6.0) H 08/02/17 15:37 Whole Bld Lactic Acid 1.97 mmol/L (0.60-1.99) 08/02/17 13:49 Calcium 8.6 mg/dL (8.6-10.3) 09/02/17 04:15 Magnesium 1.8 mg/dL (1.9-2.7) L 08/28/17 04:20 Iron 10 ug/dL (27-139) L 08/02/17 13:56 TIBC 135 ug/dL (250-450) L 08/02/17 13:56 Iron Saturation 7 % (15-55) L 08/02/17 13:56 Unsaturated IBC 125 ug/dL (118-369) 08/02/17 13:56 Ferritin 588 ng/mL (15-150) H 08/02/17 13:56 Total Bilirubin 0.4 mg/dL (0.3-1.0) 08/26/17 06:05 Direct Bilirubin 0.09 mg/dL (0.0-0.2) 08/02/17 13:57 AST 34 U/L (13-39) 08/26/17 06:05 ALT 14 U/L (7-52) 08/26/17 06:05 Alkaline Phosphatase 70 U/L (34-104) 08/26/17 06:05 Troponin I 0.10 ng/mL (0.01-0.05) H* D 08/20/17 17:00 B-Natriuretic Peptide 839.0 pg/mL (5.0-100.0) H 08/19/17 04:58 Total Protein 6.3 gm/dL (6.0-8.3) 08/26/17 06:05 Albumin 2.7 gm/dL (3.7-5.3) L 08/26/17 06:05 Globulin 3.6 gm/dL 08/26/17 06:05 Albumin/Globulin Ratio 0.8 (1.0-1.8) L 08/26/17 06:05 Triglycerides 132 mg/dL (<150) 08/04/17 06:30 Cholesterol 55 mg/dL (<200) 08/04/17 06:30 LDL Cholesterol Direct 16 mg/dL (75-193) L 08/04/17 06:30 HDL Cholesterol 13 mg/dL (23-92) L 08/04/17 06:30 Amylase 12 U/L (29-103) L 08/02/17 13:43 Lipase 4 U/L (11-82) L 08/02/17 13:43 TSH 3.74 uIU/ml (0.34-5.60) 08/04/17 06:30 Stool Occult Blood POSITIVE (NEGATIVE) H 08/03/17 17:50 Random Vancomycin 26.2 ug/mL (5.0-40.0) 09/02/17 04:15 Hepatitis A IgM Ab Negative (Negative) 08/08/17 08:15 Hep Bs Antigen Negative (Negative) 08/08/17 08:15 Hep B Core IgM Ab Negative (Negative) 08/08/17 08:15 Hepatitis C Antibody <0.1 s/co ratio (0.0-0.9) 08/08/17 08:15 Blood Type A POSITIVE 08/26/17 23:45 Rho(D) Type Cancelled 08/26/17 23:46 Antibody Screen POSITIVE 08/26/17 23:45 Antibody Identification Anti-K 08/24/17 08:30 NEVILLE, IgG Interpret NEGATIVE 08/15/17 07:50 Crossmatch See Detail 08/26/17 23:46 Crossmatch (AHG) Cancelled 08/26/17 23:46 Donor Unit # Cancelled 08/26/17 23:46 BBK History Checked Cancelled 08/26/17 23:46 - Physical Exam Vitals and I&O: Vital Signs Temp 97.2 F 09/02/17 12:00 Pulse 68 09/02/17 13:30 Resp 16 09/02/17 13:00 BP 91/22 09/02/17 13:00 Pulse Ox 100 09/02/17 13:30 Intake & Output 09/01/17 09/02/17 09/02/17 18:59 06:59 18:59 Intake Total 850 426.333 Output Total 0 Balance 850 426.333 Weight (lbs) 107.955 kg Intake: Intake, IV Amount 50 426.333 Dextrose 5% 1,000 ml @ 20 326.333 mls/hr IV .Q24H [facility] Rx#: [id number] Piperacillin Sodium/ 50 100 Tazobact 2.25 gm In Sodium Chloride 0.9% 50 ml @ 100 mls/hr IV Q8HR [facility] Rx#:[id number] Tube Feeding 600 Other 200 Output: Urine 0 Other: # Bowel Movements 2 Stool Characteristics Soft Brown Weight Source Bedscale Active Medications: Current Medications Acetaminophen (Tylenol 650mg/20.3ml Suspension) 650 mg GT DAILY [facility] Stop: 11/01/17 08:59 Last Admin: 09/02/17 09:33 Dose: 650 mg Albuterol/Ipratropium (Duoneb Neb) 3 ml HHN Q4HRT [facility] Stop: 10/19/17 10:59 Last Admin: 09/02/17 11:56 Dose: 3 ml Amiodarone HCl (Cordarone) 200 mg GT Q12H [facility] Stop: 10/20/17 10:59 Last Admin: 09/02/17 11:27 Dose: Not Given Ascorbic Acid (Vitamin C) 500 mg PO DAILY [facility] Stop: 10/20/17 08:59 Last Admin: 09/02/17 09:34 Dose: 500 mg Aspirin (Aspirin Chewable) 81 mg PO DAILY [facility] Stop: 10/20/17 08:59 Last Admin: 09/02/17 09:34 Dose: 81 mg Atorvastatin Calcium (Lipitor) 40 mg GT DAILY [facility] PRN Reason: Protocol Stop: 10/20/17 08:59 Last Admin: 09/02/17 09:33 Dose: 40 mg Bisacodyl (Dulcolax 10 Mg Supp) 10 mg RC Q72HR PRN PRN Reason: if MOM ineffective Stop: 10/19/17 11:29 Chlorhexidine Gluconate (Peridex) 15 ml MM 0800,1999 [facility] Stop: 10/19/17 19:59 Last Admin: 09/02/17 09:35 Dose: 15 ml Cholecalciferol (Vitamin D3) 1,000 iu PO DAILY [facility] Stop: 10/20/17 08:59 Last Admin: 09/02/17 09:34 Dose: 1,000 iu Diltiazem HCl (Cardizem) 20 mg IV Q4HR PRN PRN Reason: HR ABOVE 120 Stop: 09/13/17 11:59 Docusate Sodium (Colace) 100 mg PO DAILY [facility] Stop: 10/20/17 08:59 Last Admin: 09/02/17 09:34 Dose: 100 mg Dopamine HCl/Dextrose (Dopamine) 400 mg in 250 mls @ 0 mls/hr IV TITR PRN; Protocol; 0 MCG/KG/MIN PRN Reason: BP MAINTENANCE (PER PROTOCOL) Stop: 10/19/17 11:28 Norepinephrine Bitartrate 8 mg (/ Sodium Chloride) 258 mls @ 34.83 mls/hr IV TITR PRN; Protocol; 18 MCG/MIN PRN Reason: BP MAINTENANCE (PER PROTOCOL) Stop: 10/19/17 11:09 Last Titration: 08/30/17 15:20 Dose: 0 mcg/min, 0 mls/hr Phenylephrine HCl 10 mg/ (Sodium Chloride) 250 mls @ 0 mls/hr IV TITR FOUZIA; Per Protocol PRN Reason: Protocol Stop: 10/24/17 10:29 Dextrose (D5w) 1,000 mls @ 20 mls/hr IV .Q24H [facility] Stop: 10/28/17 18:43 Last Admin: 09/01/17 21:33 Dose: 20 mls/hr Piperacillin Sod/Tazobactam (Sod 2.25 gm/ Sodium Chloride) 50 mls @ 100 mls/hr IV Q8HR [facility] Stop: 09/06/17 04:59 Last Admin: 09/02/17 12:52 Dose: 100 mls/hr Insulin Aspart (Novolog Insulin Sliding Scale) 0 units SUBQ Q6HR [facility] PRN Reason: Protocol Stop: 10/19/17 11:59 Last Admin: 09/02/17 13:57 Dose: 2 units Insulin Detemir (Levemir Insulin) 16 units SUBQ HS FOU[facility]IA PRN Reason: Protocol Stop: 10/19/17 20:59 Last Admin: 09/01/17 21:34 Dose: 16 units Lactobacillus Rhamnosus (Culturelle 15b) 1 each PO DAILY [facility] Stop: 10/20/17 08:59 Last Admin: 09/02/17 09:34 Dose: 1 each Lorazepam (Ativan) 2 mg IVP Q4HR PRN; Protocol PRN Reason: Agitation Stop: 10/15/17 11:49 Last Admin: 09/02/17 09:33 Dose: 2 mg Magnesium Hydroxide (Milk Of Magnesia) 30 ml PO Q72HR PRN PRN Reason: Constipation Stop: 10/19/17 11:44 Midodrine (Proamatine) 10 mg PO BID [facility] Stop: 10/28/17 16:59 Last Admin: 09/02/17 09:34 Dose: 10 mg Mirtazapine (Remeron) 15 mg GT HS [facility] PRN Reason: Protocol Stop: 10/19/17 20:59 Last Admin: 09/01/17 21:25 Dose: 15 mg Miscellaneous (Probiotic Screen) 1 ea MC PRN PRN PRN Reason: PROTOCOL Stop: 10/22/17 10:29 Miscellaneous (Clinical Monitoring) 1 ea MC DAILY PRN PRN Reason: RENAL Stop: 11/01/17 09:25 Multivitamins/Vitamin C (Theragran) 1 tab PO DAILY [facility] Stop: 10/20/17 08:59 Last Admin: 09/02/17 09:34 Dose: 1 tab Ondansetron HCl (Zofran) 4 mg IV Q6H PRN PRN Reason: Nausea / Vomiting Stop: 10/19/17 11:40 Pantoprazole Sodium (Protonix) 40 mg IVP BID [facility] Stop: 10/28/17 16:59 Last Admin: 09/02/17 09:33 Dose: 40 mg Simethicone (Mylicon) 80 mg GT Q6HR PRN PRN Reason: Gas Stop: 10/19/17 11:59 Sodium Phosphate (Fleet Enema) 135 ml RC PRN PRN PRN Reason: If MOM/Dulcolax ineffective Stop: 10/19/17 11:29 Zinc Sulfate (Zinc Sulfate) 220 mg PO DAILY [facility] Stop: 10/20/17 08:59 Last Admin: 09/02/17 09:34 Dose: 220 mg General: Alert, No acute distress (scattered rhonchi) HEENT: Atraumatic, Mucous membr. moist/pink Neck: Supple, +2 carotid pulse wo bruit Cardiovascular: Regular rate, Normal S1, Normal S2 Lungs: Other (scattered rhonchi) Abdomen: Bowel sounds, Soft, Other (INTACT GT), no Distended, no Rebound, no Guarding Extremities: Edema (upper wxtrmities), Other (upper ext) Neurological: Sensation intact Skin: no Rash Psych/Mental Status: Mood NL - Procedures Procedures: Procedures Procedure Code Date BLOOD TRANSFUSION SERVICE 59301 08/02/17 EXCISION OF STOMACH, ENDO, DIAGN [id number] 07/10/17 INSPECTION OF LOWER INTESTINAL TRACT, ENDO [id number] 07/10/17 PERFORMANCE OF URINARY FILTRATION, <6 HRS/DAY [id number] 07/10/17 RESPIRATORY VENTILATION, GREATER THAN 96 CONSECUTIVE HOURS [id number] 08/02/17 TRANSFUSE NONAUT RED BLOOD CELLS IN PERIPH VEIN, PERC 35051M2 08/02/17 Assessment/Plan - Assessment Assessment: 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/L UE Edema, Cellulitis Shock Sepsis RF on Vent Acute on Chronic Decomp CHF G (-) Septicemia A. fib to V. tach Severe acute anemia 2/2 GI bleed? Peripheral Edema - Plan Plan: Lab - Result Diagrams 08/04/17 06:30 08/04/17 06:30 Current Medications Acetaminophen (Tylenol 650mg/20.3ml Suspension) 650 mg GT DAILY [facility] Stop: 10/03/17 08:59 Last Admin: 08/04/17 09:18 Dose: 650 mg Albuterol/Ipratropium (Duoneb Neb) 3 ml HHN Q4HRT [facility] Stop: 10/02/17 10:59 Last Admin: 08/04/17 11:25 Dose: 3 ml Ascorbic Acid (Vitamin C) 500 mg PO DAILY [facility] Stop: 10/03/17 08:59 Last Admin: 08/04/17 09:18 Dose: 500 mg Aspirin (Aspirin Chewable) 81 mg GT DAILY [facility] Stop: 10/03/17 08:59 Last Admin: 08/04/17 09:18 Dose: 81 mg Atorvastatin Calcium (Lipitor) 40 mg GT HS [facility]IA PRN Reason: Protocol Stop: 10/02/17 20:59 Last Admin: 08/03/17 20:19 Dose: 40 mg Bisacodyl (Dulcolax 10 Mg Supp) 10 mg RC Q72HR PRN PRN Reason: IF MOM INEFFECTIVE Stop: 10/02/17 14:13 Bisacodyl (Dulcolax 10 Mg Supp) 10 mg RC PRN PRN PRN Reason: IF MOM INEFFECTIVE Stop: 10/02/17 14:13 Chlorhexidine Gluconate (Peridex) 15 ml MM 0800,1999 [facility] Stop: 10/02/17 07:59 Last Admin: 08/04/17 08:00 Dose: 15 ml Cholecalciferol (Vitamin D3) 1,000 iu GT DAILY [facility] Stop: 10/03/17 08:59 Last Admin: 08/04/17 09:18 Dose: 1,000 iu Diltiazem HCl (Cardizem) 5 mg IVP Q4H PRN PRN Reason: INCREASE HEART RATE Stop: 10/01/17 21:59 Last Admin: 08/03/17 01:38 Dose: 5 mg Docusate Sodium (Colace) 100 mg PO DAILY [facility] Stop: 10/03/17 08:59 Last Admin: 08/04/17 09:18 Dose: 100 mg Heparin Sodium (Porcine) (Heparin) 5,000 units HD UD [facility] Stop: 08/05/17 08:59 Last Admin: 08/04/17 09:19 Dose: Not Given Fluconazole (Diflucan) 200 mg in 100 mls @ 100 mls/hr IV Q24HR [facility] Stop: 10/02/17 14:59 Last Infusion: 08/03/17 15:40 Dose: Infused Meropenem 500 mg/ Sodium (Chloride) 100 mls @ 100 mls/hr IV Q24H [facility] Stop: 10/02/17 12:59 Last Admin: 08/04/17 13:17 Dose: 100 mls/hr Dopamine HCl/Dextrose (Dopamine) 400 mg in 250 mls @ 0 mls/hr IV TITR PRN; Protocol; Per Protocol PRN Reason: BP MAINTENANCE (PER PROTOCOL) Stop: 10/02/17 07:47 Norepinephrine Bitartrate 4 mg (/ Dextrose) 254 mls @ 0 mls/hr IV TITR PRN; Protocol; Per Protocol PRN Reason: BP MAINTENANCE (PER PROTOCOL) Stop: 10/02/17 08:31 Last Admin: 08/03/17 23:47 Dose: 4 mcg/min, 15.24 mls/hr Colistimethate Sodium 80 mg/ (Sodium Chloride) 100 mls @ 100 mls/hr IV Q36H [facility] Stop: 10/02/17 20:59 Last Infusion: 08/03/17 21:20 Dose: Infused Insulin Aspart (Novolog Insulin Sliding Scale) 0 units SUBQ Q6HR [facility] PRN Reason: Protocol Stop: 10/02/17 00:00 Last Admin: 08/04/17 11:30 Dose: 6 units Lorazepam (Ativan) 1 mg IVP Q2HR PRN; Protocol PRN Reason: Restlessness Stop: 10/01/17 21:18 Last Admin: 08/04/17 01:05 Dose: 1 mg Magnesium Hydroxide (Milk Of Magnesia) 30 ml GT Q72H PRN PRN Reason: NO BM FOR THREE DAYS Stop: 10/02/17 14:13 Mirtazapine (Remeron) 15 mg GT HS [facility] PRN Reason: Protocol Stop: 10/02/17 20:59 Last Admin: 08/03/17 20:19 Dose: 15 mg Miscellaneous (Vancomycin Iv Per Pharmacy) 1 ea PRN PRN PRN Reason: PROTOCOL Stop: 10/01/17 20:42 Miscellaneous (Zosyn Iv Per Pharmacy) 1 ea PRN PRN PRN Reason: PROTOCOL Stop: 10/01/17 20:42 Multivitamins/Vitamin C (Theragran) 1 tab PO DAILY [facility] Stop: 10/03/17 08:59 Last Admin: 08/04/17 09:18 Dose: 1 tab Ondansetron HCl (Zofran Odt) 4 mg PO Q6HR PRN PRN Reason: Nausea / Vomiting Stop: 10/02/17 14:13 Pantoprazole Sodium (Protonix) 40 mg IVP DAILY [facility] Stop: 10/02/17 08:59 Last Admin: 08/04/17 09:18 Dose: 40 mg Simethicone (Mylicon) 80 mg GT Q6H PRN PRN Reason: GAS PAIN Stop: 10/02/17 14:13 Sodium Phosphate (Fleet Enema) 118 ml RC PRN PRN PRN Reason: IF MOM/DULCOLAX INEFFECTIVE Stop: 10/02/17 14:13 Temazepam (Restoril) 15 mg GT HS PRN; Protocol PRN Reason: Insomnia Stop: 10/02/17 14:13 Last Admin: 08/03/17 20:19 Dose: 15 mg Zinc Sulfate (Zinc Sulfate) 220 mg GT DAILY [facility] Stop: 10/03/17 08:59 Last Admin: 08/04/17 09:18 Dose: 220 Lab - Result Diagrams 09/02/17 04:15 09/02/17 04:15 scheduled for HD today CXR still showed persistent b/l effusions, CHF, left > right replace K f/u electrolytes. cbc now off Levo BS low, monitor closely, hold Levemir, continue S/S wbc down to 11 if left AVF clotted request placement of sandor cath bleed scan neg Nutritional Asmnt/Malnutr-PDOC - Dietary Evaluation Malnutrition Findings (Please click <Entered> for more info): Nutritional Asmnt/Malnutrition Start: 08/05/17 15: 53 Text: Status: Complete Freq: Document 08/05/17 15:53 HEN (Rec: 08/05/17 16:19 [email or web address] Nutritional Asmnt/Malnutrition Patient General Information Nutritional Screening High Risk Diagnosis sepsis, respiratory failure, ESRD Pertinent Medical Hx/Surgical Hx ESRD on HD, respiratory failure with tracheostomy, dysphagia, a fib, anemia, HTN, GERD Subjective Information Pt on vent, not able to interview. Pt was on TF Novosource Renal 30ml/hr continuous, NPO today for surgery. Pt has dialysis ordred per nurse note. Current Diet Order/ Nutrition Support NPO on 08/05 Pertinent Medications vit C, vit D3, colace, novolog , remeron, theragran, protonix , zinc Pertinent Labs 08/05 Na 134, K 3.6, Cl 102, BUN 77, Cr 4.2, Glucose 216, POC 224-233 08/02 A1c 7.7 Nutritional Hx/Data Height 1.6 m Height (Calculated Centimeters) 160.0 Current Weight (lbs) 87.543 kg Weight (Calculated Kilograms) 87.5 Weight (Calculated Grams) 29568.3 [place] Body Weight 115 Body Mass Index (BMI) 34.2 Weight Status Obese GI Symptoms GI Symptoms None Last BM 08/04 Difficult in: None Skin Integrity/Comment: reddened to left/right inner thigh, right lateral index finger, right/left arm; skin tear to left abdominal fold; pressure area to coccy/sacral Estimated Nutritional Goals BEE in Kcals: Adj wt of IBW Calories/Kcals/Kg 30-35 adj wt 61kg Kcals Calculated 2363-0007 Protein: Adj wt of IBW Protein g/k.2-1.4 Protein Calculated 73-85 Fluid: ml 1830-2135ml (1ml/kcal) Nutritional Problem 1. Problem Problem altered nutrition related lab values Etiology hx of ESRD, endocrine dysfunction Signs/Symptoms: BUN 77, Cr 4.2, Glucose 216, POC 224-233, A1c 7.7 Malnutrition Alert Protein-Calorie Malnutrition N/A Is there a minimum of two criteria No selected? Query Text:Check all the applicable criteria. A minimum of two criteria are recommended for diagnosis of either severe or non-severe malnutrition. Intervention/Recommendation Comments 1. Resume TF Novosource Renal 30ml/hr continuous as ordered. increase to goal rate of 40ml /hr continuous as tolerated. This will provide 1920kcal, 87g protein and 688ml free water, meeting 100% of nutritional needs 2. Monitor TF rate, tolerance, wt weekly, skin integrity and labs 3. F/U as high risk in 2-3 days, 08/07-3/ Expected Outcomes/Goals Expected Outcomes/Goals 1. Pt to meet at least 75% of nutritional needs via nutrition support with tolerance 2. Wt stability, skin to remain intact, labs to approach WNL.
[2017-09-02] MEDS ORDERED: Albumin 25% 25gm/100mL 25 GM/100 ML BTL IV ONE ×2 (18:38→18:39)
[2017-09-02] MEDS: Insulin Detemir 100 units/mL 10mL Vial SUBQ SCH (20:34)
[2017-09-03] MEDS: INSULIN ASPART SLIDING SCALE 100 UNITS/ML UNIT SUBQ SCH ×4 (00:19→19:45)
[2017-09-03] MEDS: Albuterol/Ipratropium Neb 3 ML AERS HHN SCH ×6 (03:50→23:10)
[2017-09-03 06:47] LABS: % BASOPHILS 1.6 % (0.0-2.0); % EOSINOPHILS 4.9 % (0.0-5.0); % LYMPHOCYTES 5.6 % (20.0-50.0); % MONOCYTES 12.4 % (2.0-10.0); % NEUTROPHILS 75.5 % (40.0-80.0); BASOPHILE ABSOLUTE 0.2 Th/cumm (0-0.2); EOSINOPHILE ABSOLUTE 0.6 Th/cmm (0.1-0.4); HEMATOCRIT 28.8 % (41.0-60); HEMOGLOBIN 9.7 gm/dL (12-16); LYMPHOCYTE ABSOLUTE 0.6 Th/cmm (1.5-3.0); MEAN CELL VOLUME 92.8 fl (81-100); MEAN CORPUSCULAR HEMOGLOBIN 31.1 pg (27.0-31.0); MEAN CORPUSCULAR HGB CONC 33.5 pg (28.0-36.0); MEAN PLATELET VOLUME 10.6 fl; MONOCYTE ABSOLUTE 1.4 Th/cmm (0.3-1.0); NEUTROPHILE ABSOLUTE 8.5 Th/cmm (1.8-8.0); PLATELET COUNT 194 Th/cmm (150-400); RED BLOOD COUNT 3.11 Mil/cmm (3.80-5.20); RED CELL DISTRIBUTION WIDTH 16.4 % (11.5-20.0); WHITE BLOOD COUNT 11.3 Th/cmm (4.8-10.8)
[2017-09-03 07:00] LABS: ANION GAP 15.7 (7.0-16.0); BUN - UREA NITROGEN 30 mg/dL (7-25); CALCIUM SERUM 8.8 mg/dL (8.6-10.3); CARBON DIOXIDE 25.7 mEq/L (21.0-31.0); CHLORIDE 98 mEq/L (98-107); CREATININE - SERUM 2.1 mg/dL (0.6-1.2); GLUCOSE 162 mg/dL (70-105); POTASSIUM SERUM 3.4 mEq/L (3.5-5.1); SODIUM SERUM 136 mEq/L (136-145)
[2017-09-03] MEDS: Lactobacillus Rhamnosus GG 15 Billion CFU CAP.SPRINK PO SCH (08:43)
[2017-09-03] MEDS: Chlorhexidine Gluconate 0.12% 15mL Mouthwash MM SCH ×2 (08:45→20:28)
[2017-09-03] MEDS: Aspirin 81mg Chewable Tab PO SCH (08:57)
[2017-09-03] MEDS: Multivitamin Tab PO SCH (09:00)
--- NOTE | 2017-09-03 11:05 | General Progress Note ---
Subjective - Review of Systems Events since last encounter: patient awake on vent in no distress Subjective: still on levophed Objective - Results Result Diagrams: 09/03/17 05:30 09/03/17 05:30 Recent Labs: Laboratory Last Values WBC 11.3 Th/cmm (4.8-10.8) H 09/03/17 05:30 Corrected WBC (auto) 12.0 Th/cmm (4.8-10.8) H 09/01/17 04:15 RBC 3.11 Mil/cmm (3.80-5.20) L 09/03/17 05:30 Hgb 9.7 gm/dL (12-16) L 09/03/17 05:30 Hct 28.8 % (41.0-60) L 09/03/17 05:30 MCV 92.8 fl (81-100) 09/03/17 05:30 MCH 31.1 pg (27.0-31.0) H 09/03/17 05:30 MCHC Differential 33.5 pg (28.0-36.0) 09/03/17 05:30 RDW 16.4 % (11.5-20.0) 09/03/17 05:30 Plt Count 194 Th/cmm (150-400) 09/03/17 05:30 MPV 10.6 fl 09/03/17 05:30 Neutrophils % 75.5 % (40.0-80.0) 09/03/17 05:30 Band Neutrophils % 1 % (0-10) 09/02/17 04:15 Lymphocytes % 5.6 % (20.0-50.0) L 09/03/17 05:30 Monocytes % 12.4 % (2.0-10.0) H 09/03/17 05:30 Eosinophils % 4.9 % (0.0-5.0) 09/03/17 05:30 Basophils % 1.6 % (0.0-2.0) 09/03/17 05:30 Neutrophils (Manual) 87 % (40-80) H 09/02/17 04:15 Lymphocytes 5 % (20-50) L 09/02/17 04:15 Monocytes 4 % (2-10) 09/02/17 04:15 Eosinophils 3 % (0-5) 09/02/17 04:15 Basophils 1 % (0-3) 08/28/17 06:30 Nucleated RBCs 1.0 % (0-0) H 09/02/17 04:15 Hypochromia 1+ 08/02/17 15:37 Platelet Estimate ADEQUATE (NORMAL) 09/02/17 04:15 Platelet Morphology NORMAL (NORMAL) 08/20/17 04:45 Anisocytosis 1+ 08/28/17 06:30 Crenated Cell 2+ 08/02/17 15:37 RBC Morph Micro Appear ABNORMAL (NORMAL) 08/02/17 15:37 PT 11.6 SECONDS (9.5-11.5) H 08/25/17 21:06 INR 1.11 (0.5-1.4) 08/25/17 21:06 PTT (Actin FS) 32.3 SECONDS (26.0-38.0) 08/25/17 21:06 Specimen Source Arterial 08/03/17 08:58 Sample Site Right Radial 08/03/17 08:58 pH 7.42 (7.35-7.45) 08/03/17 08:58 pCO2 37.0 mmHg (35.0-45.0) 08/03/17 08:58 pO2 204.0 mmHg (80.0-100.0) H 08/03/17 08:58 HCO3 24.8 mEq/L (20.0-26.0) 08/03/17 08:58 Base Excess -0.2 mEq/L (-3.0-3.0) 08/03/17 08:58 O2 Saturation 100.0 % (92.0-100.0) 08/03/17 08:58 Rhett Test Positive 08/03/17 08:58 Vent Rate 12 08/03/17 08:58 Inspired O2 60 08/03/17 08:58 Tidal Volume 450 08/03/17 08:58 PEEP 5 08/03/17 08:58 Pressure (ins/psv/peep) NA 08/03/17 08:58 Critical Value LZHANG 08/03/17 08:58 Sodium 136 mEq/L (136-145) 09/03/17 05:30 Potassium 3.4 mEq/L (3.5-5.1) L 09/03/17 05:30 Chloride 98 mEq/L (98-107) 09/03/17 05:30 Carbon Dioxide 25.7 mEq/L (21.0-31.0) 09/03/17 05:30 Anion Gap 15.7 (7.0-16.0) 09/03/17 05:30 BUN 30 mg/dL (7-25) H 09/03/17 05:30 Creatinine 2.1 mg/dL (0.6-1.2) H 09/03/17 05:30 Est GFR ( Amer) TNP 09/03/17 05:30 Est GFR (Non-Af Amer) TNP 09/03/17 05:30 BUN/Creatinine Ratio 14.3 09/03/17 05:30 Glucose 162 mg/dL (70-105) H 09/03/17 05:30 POC Glucose 165 MG/DL (70 - 105) H 09/03/17 05:35 Hemoglobin A1c % 7.7 % (4.0-6.0) H 08/02/17 15:37 Whole Bld Lactic Acid 1.97 mmol/L (0.60-1.99) 08/02/17 13:49 Calcium 8.8 mg/dL (8.6-10.3) 09/03/17 05:30 Magnesium 1.8 mg/dL (1.9-2.7) L 08/28/17 04:20 Iron 10 ug/dL (27-139) L 08/02/17 13:56 TIBC 135 ug/dL (250-450) L 08/02/17 13:56 Iron Saturation 7 % (15-55) L 08/02/17 13:56 Unsaturated IBC 125 ug/dL (118-369) 08/02/17 13:56 Ferritin 588 ng/mL (15-150) H 08/02/17 13:56 Total Bilirubin 0.4 mg/dL (0.3-1.0) 08/26/17 06:05 Direct Bilirubin 0.09 mg/dL (0.0-0.2) 08/02/17 13:57 AST 34 U/L (13-39) 08/26/17 06:05 ALT 14 U/L (7-52) 08/26/17 06:05 Alkaline Phosphatase 70 U/L (34-104) 08/26/17 06:05 Troponin I 0.10 ng/mL (0.01-0.05) H* D 08/20/17 17:00 B-Natriuretic Peptide 839.0 pg/mL (5.0-100.0) H 08/19/17 04:58 Total Protein 6.3 gm/dL (6.0-8.3) 08/26/17 06:05 Albumin 2.7 gm/dL (3.7-5.3) L 08/26/17 06:05 Globulin 3.6 gm/dL 08/26/17 06:05 Albumin/Globulin Ratio 0.8 (1.0-1.8) L 08/26/17 06:05 Triglycerides 132 mg/dL (<150) 08/04/17 06:30 Cholesterol 55 mg/dL (<200) 08/04/17 06:30 LDL Cholesterol Direct 16 mg/dL (75-193) L 08/04/17 06:30 HDL Cholesterol 13 mg/dL (23-92) L 08/04/17 06:30 Amylase 12 U/L (29-103) L 08/02/17 13:43 Lipase 4 U/L (11-82) L 08/02/17 13:43 TSH 3.74 uIU/ml (0.34-5.60) 08/04/17 06:30 Stool Occult Blood POSITIVE (NEGATIVE) H 08/03/17 17:50 Random Vancomycin 26.2 ug/mL (5.0-40.0) 09/02/17 04:15 Hepatitis A IgM Ab Negative (Negative) 08/08/17 08:15 Hep Bs Antigen Negative (Negative) 08/08/17 08:15 Hep B Core IgM Ab Negative (Negative) 08/08/17 08:15 Hepatitis C Antibody <0.1 s/co ratio (0.0-0.9) 08/08/17 08:15 Blood Type A POSITIVE 08/26/17 23:45 Rho(D) Type Cancelled 08/26/17 23:46 Antibody Screen POSITIVE 08/26/17 23:45 Antibody Identification Anti-K 08/24/17 08:30 [place]EV[place], IgG Interpret NEGATIVE 08/24/17 08:30 Crossmatch See Detail 08/26/17 23:46 Crossmatch (AHG) Cancelled 08/26/17 23:46 Donor Unit # Cancelled 08/26/17 23:46 BBK History Checked Cancelled 08/26/17 23:46 - Physical Exam Vitals and I&O: Vital Signs Temp 97.0 F 09/03/17 08:00 Pulse 75 09/03/17 09:44 Resp 15 09/03/17 08:00 BP 116/46 09/03/17 08:00 Pulse Ox 100 09/03/17 09:44 Intake & Output 09/02/17 09/03/17 09/03/17 18:59 06:59 18:59 Intake Total 950 50 Output Total 2500 Balance -1550 50 Weight (lbs) 107.955 kg Intake: Intake, IV Amount 50 50 Piperacillin Sodium/ 50 50 Tazobact 2.25 gm In Sodium Chloride 0.9% 50 ml @ 100 mls/hr IV Q8HR [facility] Rx#:[id number] Tube Feeding 600 Other 300 Output: Urine 0 Hemodialysis 2500 Other: Weight Source Bedscale Active Medications: Current Medications Acetaminophen (Tylenol 650mg/20.3ml Suspension) 650 mg GT DAILY [facility] Stop: 11/01/17 08:59 Last Admin: 09/03/17 08:43 Dose: 650 mg Albuterol/Ipratropium (Duoneb Neb) 3 ml HHN Q4HRT FOUZIA Stop: 10/19/17 10:59 Last Admin: 09/03/17 09:44 Dose: 3 ml Amiodarone HCl (Cordarone) 200 mg GT Q12H FOUZIA Stop: 10/20/17 10:59 Last Admin: 09/02/17 22:43 Dose: 200 mg Ascorbic Acid (Vitamin C) 500 mg PO DAILY FOUZIA Stop: 10/20/17 08:59 Last Admin: 09/03/17 08:57 Dose: 500 mg Aspirin (Aspirin Chewable) 81 mg PO DAILY FOUZIA Stop: 10/20/17 08:59 Last Admin: 09/03/17 08:57 Dose: 81 mg Atorvastatin Calcium (Lipitor) 40 mg GT DAILY FOUZIA PRN Reason: Protocol Stop: 10/20/17 08:59 Last Admin: 09/03/17 08:43 Dose: 40 mg Bisacodyl (Dulcolax 10 Mg Supp) 10 mg RC Q72HR PRN PRN Reason: if MOM ineffective Stop: 10/19/17 11:29 Chlorhexidine Gluconate (Peridex) 15 ml MM 0800,2000 [facility] Stop: 10/19/17 19:59 Last Admin: 09/03/17 08:45 Dose: 15 ml Cholecalciferol (Vitamin D3) 1,000 iu PO DAILY [facility] Stop: 10/20/17 08:59 Last Admin: 09/03/17 08:57 Dose: 1,000 iu Diltiazem HCl (Cardizem) 20 mg IV Q4HR PRN PRN Reason: HR ABOVE 120 Stop: 09/13/17 11:59 Docusate Sodium (Colace) 100 mg PO DAILY [facility] Stop: 10/20/17 08:59 Last Admin: 09/03/17 08:58 Dose: Not Given Dopamine HCl/Dextrose (Dopamine) 400 mg in 250 mls @ 0 mls/hr IV TITR PRN; Protocol; 0 MCG/KG/MIN PRN Reason: BP MAINTENANCE (PER PROTOCOL) Stop: 10/19/17 11:28 Norepinephrine Bitartrate 8 mg (/ Sodium Chloride) 258 mls @ 34.83 mls/hr IV TITR PRN; Protocol; 18 MCG/MIN PRN Reason: BP MAINTENANCE (PER PROTOCOL) Stop: 10/19/17 11:09 Last Titration: 08/30/17 15:20 Dose: 0 mcg/min, 0 mls/hr Phenylephrine HCl 10 mg/ (Sodium Chloride) 250 mls @ 0 mls/hr IV TITR FOUZIA; Per Protocol PRN Reason: Protocol Stop: 10/24/17 10:29 Dextrose (D5w) 1,000 mls @ 20 mls/hr IV .Q24H [facility] Stop: 10/28/17 18:43 Last Admin: 09/01/17 21:33 Dose: 20 mls/hr Piperacillin Sod/Tazobactam (Sod 2.25 gm/ Sodium Chloride) 50 mls @ 100 mls/hr IV Q8HR [facility] Stop: 09/06/17 04:59 Last Admin: 09/03/17 04:53 Dose: 100 mls/hr Insulin Aspart (Novolog Insulin Sliding Scale) 0 units SUBQ Q6HR FOUZIA PRN Reason: Protocol Stop: 10/19/17 11:59 Last Admin: 09/03/17 05:53 Dose: 2 units Insulin Detemir (Levemir Insulin) 16 units SUBQ HS FOUZIA PRN Reason: Protocol Stop: 10/19/17 20:59 Last Admin: 09/02/17 20:34 Dose: 16 units Lactobacillus Rhamnosus (Culturelle 15b) 1 each PO DAILY FOUZIA Stop: 10/20/17 08:59 Last Admin: 09/03/17 08:43 Dose: 1 each Lorazepam (Ativan) 2 mg IVP Q4HR PRN; Protocol PRN Reason: Agitation Stop: 10/15/17 11:49 Last Admin: 09/03/17 05:52 Dose: 2 mg Magnesium Hydroxide (Milk Of Magnesia) 30 ml PO Q72HR PRN PRN Reason: Constipation Stop: 10/19/17 11:44 Midodrine (Proamatine) 10 mg PO BID FOUZIA Stop: 10/28/17 16:59 Last Admin: 09/03/17 08:58 Dose: 10 mg Mirtazapine (Remeron) 15 mg GT HS FOUZIA PRN Reason: Protocol Stop: 10/19/17 20:59 Last Admin: 09/02/17 20:34 Dose: 15 mg Miscellaneous (Probiotic Screen) 1 ea PRN PRN PRN Reason: PROTOCOL Stop: 10/22/17 10:29 Miscellaneous (Clinical Monitoring) 1 ea MC DAILY PRN PRN Reason: RENAL Stop: 11/01/17 09:25 Multivitamins/Vitamin C (Theragran) 1 tab PO DAILY FOUZIA Stop: 10/20/17 08:59 Last Admin: 09/02/17 09:34 Dose: 1 tab Ondansetron HCl (Zofran) 4 mg IV Q6H PRN PRN Reason: Nausea / Vomiting Stop: 10/19/17 11:40 Pantoprazole Sodium (Protonix) 40 mg IVP BID FOUZIA Stop: 10/28/17 16:59 Last Admin: 09/02/17 16:26 Dose: 40 mg Simethicone (Mylicon) 80 mg GT Q6HR PRN PRN Reason: Gas Stop: 10/19/17 11:59 Sodium Phosphate (Fleet Enema) 135 ml RC PRN PRN PRN Reason: If MOM/Dulcolax ineffective Stop: 10/19/17 11:29 Zinc Sulfate (Zinc Sulfate) 220 mg PO DAILY FOUZIA Stop: 10/20/17 08:59 Last Admin: 09/03/17 08:43 Dose: 220 mg General: Alert, No acute distress (scattered rhonchi) HEENT: Atraumatic, Mucous membr. moist/pink Neck: Supple, +2 carotid pulse wo bruit Cardiovascular: Regular rate, Normal S1, Normal S2 Lungs: Other (scattered rhonchi) Abdomen: Bowel sounds, Soft, Other (INTACT GT), no Distended, no Rebound, no Guarding Extremities: Edema (upper wxtrmities), Other (upper ext) Neurological: Sensation intact Skin: no Rash Psych/Mental Status: Mood NL - Procedures Procedures: Procedures Procedure Code Date BLOOD TRANSFUSION SERVICE 22015 08/02/17 EXCISION OF STOMACH, ENDO, DIAGN [id number] 07/10/17 INSPECTION OF LOWER INTESTINAL TRACT, ENDO [id number] 07/10/17 PERFORMANCE OF URINARY FILTRATION, <6 HRS/DAY [id number] 07/10/17 RESPIRATORY VENTILATION, GREATER THAN 96 CONSECUTIVE HOURS [id number] 08/02/17 TRANSFUSE NONAUT RED BLOOD CELLS IN PERIPH VEIN, PERC [id number] 08/02/17 Assessment/Plan - Problem List Patient Problems: All Active Problems CKD (chronic kidney disease), stage V (Acute) N18.5 Diabetes mellitus (Acute) E11.9 Gram-negative bacteremia (Acute) R78.81 Hypotension (Acute) Hypotension (Acute) Obesity (Acute) E66.9 Pneumonia (Acute) J18.9 - Plan Plan: discharge planning Nutritional Asmnt/Malnutr-PDOC - Dietary Evaluation Malnutrition Findings (Please click <Entered> for more info): Nutritional Asmnt/Malnutrition Start: 08/05/17 15: 53 Text: Status: Complete Freq: Document 08/05/17 15:53 [place] (Rec: 08/05/17 16:19 [place] [id number]) Nutritional Asmnt/Malnutrition Patient General Information Nutritional Screening High Risk Diagnosis sepsis, respiratory failure, ESRD Pertinent Medical Hx/Surgical Hx ESRD on HD, respiratory failure with tracheostomy, dysphagia, a fib, anemia, HTN, GERD Subjective Information Pt on vent, not able to interview. Pt was on TF Novosource Renal 30ml/hr continuous, NPO today for surgery. Pt has dialysis ordred per nurse note. Current Diet Order/ Nutrition Support NPO on 08/05 Pertinent Medications vit C, vit D3, colace, novolog , remeron, theragran, protonix , zinc Pertinent Labs 08/05 Na 134, K 3.6, Cl 102, BUN 77, Cr 4.2, Glucose 216, POC 224-233 08/02 A1c 7.7 Nutritional Hx/Data Height 1.6 m Height (Calculated Centimeters) 160.0 Current Weight (lbs) 87.543 kg Weight (Calculated Kilograms) 87.5 Weight (Calculated Grams) 23429.3 [place] Body Weight 115 Body Mass Index (BMI) 34.2 Weight Status Obese GI Symptoms GI Symptoms None Last BM 08/04 Difficult in: None Skin Integrity/Comment: reddened to left/right inner thigh, right lateral index finger, right/left arm; skin tear to left abdominal fold; pressure area to coccy/sacral Estimated Nutritional Goals BEE in Kcals: Adj wt of IBW Calories/Kcals/Kg 30-35 adj wt 61kg Kcals Calculated 5148-1147 Protein: Adj wt of IBW Protein g/k.2-1.4 Protein Calculated 73-85 Fluid: ml 1830-2135ml (1ml/kcal) Nutritional Problem 1. Problem Problem altered nutrition related lab values Etiology hx of ESRD, endocrine dysfunction Signs/Symptoms: BUN 77, Cr 4.2, Glucose 216, POC 224-233, A1c 7.7 Malnutrition Alert Protein-Calorie Malnutrition N/A Is there a minimum of two criteria No selected? Query Text:Check all the applicable criteria. A minimum of two criteria are recommended for diagnosis of either severe or non-severe malnutrition. Intervention/Recommendation Comments 1. Resume TF Novosource Renal 30ml/hr continuous as ordered. increase to goal rate of 40ml /hr continuous as tolerated. This will provide 1920kcal, 87g protein and 688ml free water, meeting 100% of nutritional needs 2. Monitor TF rate, tolerance, wt weekly, skin integrity and labs 3. F/U as high risk in 2-3 days, 08/07-08/08 Expected Outcomes/Goals Expected Outcomes/Goals 1. Pt to meet at least 75% of nutritional needs via nutrition support with tolerance 2. Wt stability, skin to remain intact, labs to approach WNL.
[2017-09-03] MEDS ORDERED: Potassium Chloride Elixir 20 mEq /15 mL UDC GT ONE (14:20)
--- NOTE | 2017-09-03 14:20 | General Progress Note ---
Subjective - Review of Systems Service Date: 09/03/17 Subjective: very awake, talking, on vent Objective - Results Result Diagrams: 09/03/17 05:30 09/03/17 05:30 Recent Labs: Laboratory Last Values WBC 11.3 Th/cmm (4.8-10.8) H 09/03/17 05:30 Corrected WBC (auto) 12.0 Th/cmm (4.8-10.8) H 09/01/17 04:15 RBC 3.11 Mil/cmm (3.80-5.20) L 09/03/17 05:30 Hgb 9.7 gm/dL (12-16) L 09/03/17 05:30 Hct 28.8 % (41.0-60) L 09/03/17 05:30 MCV 92.8 fl (81-100) 09/03/17 05:30 MCH 31.1 pg (27.0-31.0) H 09/03/17 05:30 MCHC Differential 33.5 pg (28.0-36.0) 09/03/17 05:30 RDW 16.4 % (11.5-20.0) 09/03/17 05:30 Plt Count 194 Th/cmm (150-400) 09/03/17 05:30 MPV 10.6 fl 09/03/17 05:30 Neutrophils % 75.5 % (40.0-80.0) 09/03/17 05:30 Band Neutrophils % 1 % (0-10) 09/02/17 04:15 Lymphocytes % 5.6 % (20.0-50.0) L 09/03/17 05:30 Monocytes % 12.4 % (2.0-10.0) H 09/03/17 05:30 Eosinophils % 4.9 % (0.0-5.0) 09/03/17 05:30 Basophils % 1.6 % (0.0-2.0) 09/03/17 05:30 Neutrophils (Manual) 87 % (40-80) H 09/02/17 04:15 Lymphocytes 5 % (20-50) L 09/02/17 04:15 Monocytes 4 % (2-10) 09/02/17 04:15 Eosinophils 3 % (0-5) 09/02/17 04:15 Basophils 1 % (0-3) 08/28/17 06:30 Nucleated RBCs 1.0 % (0-0) H 09/02/17 04:15 Hypochromia 1+ 08/02/17 15:37 Platelet Estimate ADEQUATE (NORMAL) 09/02/17 04:15 Platelet Morphology NORMAL (NORMAL) 08/20/17 04:45 Anisocytosis 1+ 08/28/17 06:30 Crenated Cell 2+ 08/02/17 15:37 RBC Morph Micro Appear ABNORMAL (NORMAL) 08/02/17 15:37 PT 11.6 SECONDS (9.5-11.5) H 08/25/17 21:06 INR 1.11 (0.5-1.4) 08/25/17 21:06 PTT (Actin FS) 32.3 SECONDS (26.0-38.0) 08/25/17 21:06 Specimen Source Arterial 08/03/17 08:58 Sample Site Right Radial 08/03/17 08:58 pH 7.42 (7.35-7.45) 08/03/17 08:58 pCO2 37.0 mmHg (35.0-45.0) 08/03/17 08:58 pO2 204.0 mmHg (80.0-100.0) H 08/03/17 08:58 HCO3 24.8 mEq/L (20.0-26.0) 08/03/17 08:58 Base Excess -0.2 mEq/L (-3.0-3.0) 08/03/17 08:58 O2 Saturation 100.0 % (92.0-100.0) 08/03/17 08:58 Rhett Test Positive 08/03/17 08:58 Vent Rate 12 08/03/17 08:58 Inspired O2 60 08/03/17 08:58 Tidal Volume 450 08/03/17 08:58 PEEP 5 08/03/17 08:58 Pressure (ins/psv/peep) NA 08/03/17 08:58 Critical Value LZHANG 08/03/17 08:58 Sodium 136 mEq/L (136-145) 09/03/17 05:30 Potassium 3.4 mEq/L (3.5-5.1) L 09/03/17 05:30 Chloride 98 mEq/L (98-107) 09/03/17 05:30 Carbon Dioxide 25.7 mEq/L (21.0-31.0) 09/03/17 05:30 Anion Gap 15.7 (7.0-16.0) 09/03/17 05:30 BUN 30 mg/dL (7-25) H 09/03/17 05:30 Creatinine 2.1 mg/dL (0.6-1.2) H 09/03/17 05:30 Est GFR ( Amer) TNP 09/03/17 05:30 Est GFR (Non-Af Amer) TNP 09/03/17 05:30 BUN/Creatinine Ratio 14.3 09/03/17 05:30 Glucose 162 mg/dL (70-105) H 09/03/17 05:30 POC Glucose 157 MG/DL (70 - 105) H 09/03/17 11:55 Hemoglobin A1c % 7.7 % (4.0-6.0) H 08/02/17 15:37 Whole Bld Lactic Acid 1.97 mmol/L (0.60-1.99) 08/02/17 13:49 Calcium 8.8 mg/dL (8.6-10.3) 09/03/17 05:30 Magnesium 1.8 mg/dL (1.9-2.7) L 08/28/17 04:20 Iron 10 ug/dL (27-139) L 08/02/17 13:56 TIBC 135 ug/dL (250-450) L 08/02/17 13:56 Iron Saturation 7 % (15-55) L 08/02/17 13:56 Unsaturated IBC 125 ug/dL (118-369) 08/02/17 13:56 Ferritin 588 ng/mL (15-150) H 08/02/17 13:56 Total Bilirubin 0.4 mg/dL (0.3-1.0) 08/26/17 06:05 Direct Bilirubin 0.09 mg/dL (0.0-0.2) 08/02/17 13:57 AST 34 U/L (13-39) 08/26/17 06:05 ALT 14 U/L (7-52) 08/26/17 06:05 Alkaline Phosphatase 70 U/L (34-104) 08/26/17 06:05 Troponin I 0.10 ng/mL (0.01-0.05) H* D 08/20/17 17:00 B-Natriuretic Peptide 839.0 pg/mL (5.0-100.0) H 08/19/17 04:58 Total Protein 6.3 gm/dL (6.0-8.3) 08/26/17 06:05 Albumin 2.7 gm/dL (3.7-5.3) L 08/26/17 06:05 Globulin 3.6 gm/dL 08/26/17 06:05 Albumin/Globulin Ratio 0.8 (1.0-1.8) L 08/26/17 06:05 Triglycerides 132 mg/dL (<150) 08/04/17 06:30 Cholesterol 55 mg/dL (<200) 08/04/17 06:30 LDL Cholesterol Direct 16 mg/dL (75-193) L 08/04/17 06:30 HDL Cholesterol 13 mg/dL (23-92) L 08/04/17 06:30 Amylase 12 U/L (29-103) L 08/02/17 13:43 Lipase 4 U/L (11-82) L 08/02/17 13:43 TSH 3.74 uIU/ml (0.34-5.60) 08/04/17 06:30 Stool Occult Blood POSITIVE (NEGATIVE) H 08/03/17 17:50 Random Vancomycin 26.2 ug/mL (5.0-40.0) 09/02/17 04:15 Hepatitis A IgM Ab Negative (Negative) 08/08/17 08:15 Hep Bs Antigen Negative (Negative) 08/08/17 08:15 Hep B Core IgM Ab Negative (Negative) 08/08/17 08:15 Hepatitis C Antibody <0.1 s/co ratio (0.0-0.9) 08/08/17 08:15 Blood Type A POSITIVE 08/26/17 23:45 Rho(D) Type Cancelled 08/26/17 23:46 Antibody Screen POSITIVE 08/26/17 23:45 Antibody Identification Anti-K 08/24/17 08:30 NEVILLE, IgG Interpret NEGATIVE 08/24/17 08:30 Crossmatch See Detail 08/26/17 23:46 Crossmatch (AHG) Cancelled 08/26/17 23:46 Donor Unit # Cancelled 08/26/17 23:46 BBK History Checked Cancelled 08/26/17 23:46 - Physical Exam Vitals and I&O: Vital Signs Temp 97.0 F 09/03/17 08:00 Pulse 78 09/03/17 13:30 Resp 16 09/03/17 11:00 BP 106/38 09/03/17 11:00 Pulse Ox 100 09/03/17 13:30 Intake & Output 09/02/17 09/03/17 09/03/17 18:59 06:59 18:59 Intake Total 950 100 Output Total 2500 Balance -1550 100 Weight (lbs) 107.955 kg Intake: Intake, IV Amount 50 100 Piperacillin Sodium/ 50 100 Tazobact 2.25 gm In Sodium Chloride 0.9% 50 ml @ 100 mls/hr IV Q8HR [facility] Rx#:[id number] Tube Feeding 600 Other 300 Output: Urine 0 Hemodialysis 2500 Other: Weight Source Bedscale Active Medications: Current Medications Acetaminophen (Tylenol 650mg/20.3ml Suspension) 650 mg GT DAILY [facility] Stop: 11/01/17 08:59 Last Admin: 09/03/17 08:43 Dose: 650 mg Albuterol/Ipratropium (Duoneb Neb) 3 ml HHN Q4HRT [facility] Stop: 10/19/17 10:59 Last Admin: 09/03/17 11:11 Dose: 3 ml Amiodarone HCl (Cordarone) 200 mg GT Q12H [facility] Stop: 10/20/17 10:59 Last Admin: 09/03/17 12:03 Dose: Not Given Ascorbic Acid (Vitamin C) 500 mg PO DAILY [facility] Stop: 10/20/17 08:59 Last Admin: 09/03/17 08:57 Dose: 500 mg Aspirin (Aspirin Chewable) 81 mg PO DAILY [facility] Stop: 10/20/17 08:59 Last Admin: 09/03/17 08:57 Dose: 81 mg Atorvastatin Calcium (Lipitor) 40 mg GT DAILY [facility] PRN Reason: Protocol Stop: 10/20/17 08:59 Last Admin: 09/03/17 08:43 Dose: 40 mg Bisacodyl (Dulcolax 10 Mg Supp) 10 mg RC Q72HR PRN PRN Reason: if MOM ineffective Stop: 10/19/17 11:29 Chlorhexidine Gluconate (Peridex) 15 ml MM 0800,2000 [facility] Stop: 10/19/17 19:59 Last Admin: 03/28/18 08:45 Dose: 15 ml Cholecalciferol (Vitamin D3) 1,000 iu PO DAILY [facility] Stop: 10/20/17 08:59 Last Admin: 09/03/17 08:57 Dose: 1,000 iu Diltiazem HCl (Cardizem) 20 mg IV Q4HR PRN PRN Reason: HR ABOVE 120 Stop: 09/13/17 11:59 Docusate Sodium (Colace) 100 mg PO DAILY [facility] Stop: 10/20/17 08:59 Last Admin: 09/03/17 08:58 Dose: Not Given Dopamine HCl/Dextrose (Dopamine) 400 mg in 250 mls @ 0 mls/hr IV TITR PRN; Protocol; 0 MCG/KG/MIN PRN Reason: BP MAINTENANCE (PER PROTOCOL) Stop: 10/19/17 11:28 Norepinephrine Bitartrate 8 mg (/ Sodium Chloride) 258 mls @ 34.83 mls/hr IV TITR PRN; Protocol; 18 MCG/MIN PRN Reason: BP MAINTENANCE (PER PROTOCOL) Stop: 10/19/17 11:09 Last Titration: 08/30/17 15:20 Dose: 0 mcg/min, 0 mls/hr Phenylephrine HCl 10 mg/ (Sodium Chloride) 250 mls @ 0 mls/hr IV TITR [facility]; Per Protocol PRN Reason: Protocol Stop: 10/24/17 10:29 Dextrose (D5w) 1,000 mls @ 20 mls/hr IV .Q24H [facility] Stop: 10/28/17 18:43 Last Admin: 09/01/17 21:33 Dose: 20 mls/hr Piperacillin Sod/Tazobactam (Sod 2.25 gm/ Sodium Chloride) 50 mls @ 100 mls/hr IV Q8HR [facility] Stop: 09/06/17 04:59 Last Admin: 09/03/17 12:06 Dose: 100 mls/hr Insulin Aspart (Novolog Insulin Sliding Scale) 0 units SUBQ Q6HR [facility] PRN Reason: Protocol Stop: 10/19/17 11:59 Last Admin: 09/03/17 12:00 Dose: 2 units Insulin Detemir (Levemir Insulin) 16 units SUBQ HS [facility] PRN Reason: Protocol Stop: 10/19/17 20:59 Last Admin: 09/02/17 20:34 Dose: 16 units Lactobacillus Rhamnosus (Culturelle 15b) 1 each PO DAILY [facility] Stop: 10/20/17 08:59 Last Admin: 09/03/17 08:43 Dose: 1 each Lorazepam (Ativan) 2 mg IVP Q4HR PRN; Protocol PRN Reason: Agitation Stop: 10/15/17 11:49 Last Admin: 09/03/17 05:52 Dose: 2 mg Magnesium Hydroxide (Milk Of Magnesia) 30 ml PO Q72HR PRN PRN Reason: Constipation Stop: 10/19/17 11:44 Midodrine (Proamatine) 10 mg PO BID [facility] Stop: 10/28/17 16:59 Last Admin: 09/03/17 08:58 Dose: 10 mg Mirtazapine (Remeron) 15 mg GT HS [facility] PRN Reason: Protocol Stop: 10/19/17 20:59 Last Admin: 09/02/17 20:34 Dose: 15 mg Miscellaneous (Probiotic Screen) 1 ea PRN PRN PRN Reason: PROTOCOL Stop: 10/22/17 10:29 Miscellaneous (Clinical Monitoring) 1 ea MC DAILY PRN PRN Reason: RENAL Stop: 11/01/17 09:25 Multivitamins/Vitamin C (Theragran) 1 tab PO DAILY [facility] Stop: 10/20/17 08:59 Last Admin: 09/03/17 09:00 Dose: 1 tab Ondansetron HCl (Zofran) 4 mg IV Q6H PRN PRN Reason: Nausea / Vomiting Stop: 10/19/17 11:40 Pantoprazole Sodium (Protonix) 40 mg IVP BID [facility] Stop: 10/28/17 16:59 Last Admin: 09/03/17 09:00 Dose: 40 mg Simethicone (Mylicon) 80 mg GT Q6HR PRN PRN Reason: Gas Stop: 10/19/17 11:59 Sodium Phosphate (Fleet Enema) 135 ml RC PRN PRN PRN Reason: If MOM/Dulcolax ineffective Stop: 10/19/17 11:29 Zinc Sulfate (Zinc Sulfate) 220 mg PO DAILY [facility] Stop: 10/20/17 08:59 Last Admin: 09/03/17 08:43 Dose: 220 mg General: Alert, No acute distress (scattered rhonchi) HEENT: Atraumatic, Mucous membr. moist/pink Neck: Supple, +2 carotid pulse wo bruit Cardiovascular: Regular rate, Normal S1, Normal S2 Lungs: Other (scattered rhonchi) Abdomen: Bowel sounds, Soft, Other (INTACT GT), no Distended, no Rebound, no Guarding Extremities: Edema (upper wxtrmities), Other (upper ext) Neurological: Sensation intact Skin: no Rash Psych/Mental Status: Mood NL - Procedures Procedures: Procedures Procedure Code Date BLOOD TRANSFUSION SERVICE 63684 08/02/17 EXCISION OF STOMACH, ENDO, DIAGN [id number] 07/10/17 INSPECTION OF LOWER INTESTINAL TRACT, ENDO [id number] 07/10/17 PERFORMANCE OF URINARY FILTRATION, <6 HRS/DAY [id number] 07/10/17 RESPIRATORY VENTILATION, GREATER THAN 96 CONSECUTIVE HOURS [id number] 08/02/17 TRANSFUSE NONAUT RED BLOOD CELLS IN PERIPH VEIN, PERC 37950R0 08/02/17 Assessment/Plan - Problem List Patient Problems: All Active Problems CKD (chronic kidney disease), stage V (Acute) N18.5 Diabetes mellitus (Acute) E11.9 Gram-negative bacteremia (Acute) R78.81 Hypotension (Acute) Hypotension (Acute) Obesity (Acute) E66.9 Pneumonia (Acute) J18.9 - Assessment Assessment: 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/L UE Edema, Cellulitis Shock Sepsis RF on Vent Acute on Chronic Decomp CHF G (-) Septicemia A. fib to V. tach Severe acute anemia 2/2 GI bleed? Peripheral Edema - Plan Plan: Lab - Result Diagrams 08/04/17 06:30 08/04/17 06:30 Current Medications Acetaminophen (Tylenol 650mg/20.3ml Suspension) 650 mg GT DAILY [facility] Stop: 10/03/17 08:59 Last Admin: 08/04/17 09:18 Dose: 650 mg Albuterol/Ipratropium (Duoneb Neb) 3 ml HHN Q4HRT [facility] Stop: 10/02/17 10:59 Last Admin: 08/04/17 11:25 Dose: 3 ml Ascorbic Acid (Vitamin C) 500 mg PO DAILY [facility] Stop: 10/03/17 08:59 Last Admin: 08/04/17 09:18 Dose: 500 mg Aspirin (Aspirin Chewable) 81 mg GT DAILY [facility] Stop: 10/03/17 08:59 Last Admin: 08/04/17 09:18 Dose: 81 mg Atorvastatin Calcium (Lipitor) 40 mg GT HS [facility] PRN Reason: Protocol Stop: 10/02/17 20:59 Last Admin: 08/03/17 20:19 Dose: 40 mg Bisacodyl (Dulcolax 10 Mg Supp) 10 mg RC Q72HR PRN PRN Reason: IF MOM INEFFECTIVE Stop: 10/02/17 14:13 Bisacodyl (Dulcolax 10 Mg Supp) 10 mg RC PRN PRN PRN Reason: IF MOM INEFFECTIVE Stop: 10/02/17 14:13 Chlorhexidine Gluconate (Peridex) 15 ml MM 0800,2000 [facility] Stop: 10/02/17 07:59 Last Admin: 08/04/17 08:00 Dose: 15 ml Cholecalciferol (Vitamin D3) 1,000 iu GT DAILY [facility] Stop: 10/03/17 08:59 Last Admin: 08/04/17 09:18 Dose: 1,000 iu Diltiazem HCl (Cardizem) 5 mg IVP Q4H PRN PRN Reason: INCREASE HEART RATE Stop: 10/01/17 21:59 Last Admin: 08/03/17 01:38 Dose: 5 mg Docusate Sodium (Colace) 100 mg PO DAILY [facility] Stop: 10/03/17 08:59 Last Admin: 08/04/17 09:18 Dose: 100 mg Heparin Sodium (Porcine) (Heparin) 5,000 units HD UD [facility] Stop: 08/05/17 08:59 Last Admin: 08/04/17 09:19 Dose: Not Given Fluconazole (Diflucan) 200 mg in 100 mls @ 100 mls/hr IV Q24HR [facility] Stop: 10/02/17 14:59 Last Infusion: 08/03/17 15:40 Dose: Infused Meropenem 500 mg/ Sodium (Chloride) 100 mls @ 100 mls/hr IV Q24H [facility] Stop: 10/02/17 12:59 Last Admin: 08/04/17 13:17 Dose: 100 mls/hr Dopamine HCl/Dextrose (Dopamine) 400 mg in 250 mls @ 0 mls/hr IV TITR PRN; Protocol; Per Protocol PRN Reason: BP MAINTENANCE (PER PROTOCOL) Stop: 10/02/17 07:47 Norepinephrine Bitartrate 4 mg (/ Dextrose) 254 mls @ 0 mls/hr IV TITR PRN; Protocol; Per Protocol PRN Reason: BP MAINTENANCE (PER PROTOCOL) Stop: 10/02/17 08:31 Last Admin: 08/03/17 23:47 Dose: 4 mcg/min, 15.24 mls/hr Colistimethate Sodium 80 mg/ (Sodium Chloride) 100 mls @ 100 mls/hr IV Q36H [facility] Stop: 10/02/17 20:59 Last Infusion: 08/03/17 21:20 Dose: Infused Insulin Aspart (Novolog Insulin Sliding Scale) 0 units SUBQ Q6HR [facility] PRN Reason: Protocol Stop: 10/02/17 00:00 Last Admin: 08/04/17 11:30 Dose: 6 units Lorazepam (Ativan) 1 mg IVP Q2HR PRN; Protocol PRN Reason: Restlessness Stop: 10/01/17 21:18 Last Admin: 08/04/17 01:05 Dose: 1 mg Magnesium Hydroxide (Milk Of Magnesia) 30 ml GT Q72H PRN PRN Reason: NO BM FOR THREE DAYS Stop: 10/02/17 14:13 Mirtazapine (Remeron) 15 mg GT HS [facility] PRN Reason: Protocol Stop: 10/02/17 20:59 Last Admin: 08/03/17 20:19 Dose: 15 mg Miscellaneous (Vancomycin Iv Per Pharmacy) 1 ea PRN PRN PRN Reason: PROTOCOL Stop: 10/01/17 20:42 Miscellaneous (Zosyn Iv Per Pharmacy) 1 ea PRN PRN PRN Reason: PROTOCOL Stop: 10/01/17 20:42 Multivitamins/Vitamin C (Theragran) 1 tab PO DAILY [facility] Stop: 10/03/17 08:59 Last Admin: 08/04/17 09:18 Dose: 1 tab Ondansetron HCl (Zofran Odt) 4 mg PO Q6HR PRN PRN Reason: Nausea / Vomiting Stop: 10/02/17 14:13 Pantoprazole Sodium (Protonix) 40 mg IVP DAILY [facility] Stop: 10/02/17 08:59 Last Admin: 08/04/17 09:18 Dose: 40 mg Simethicone (Mylicon) 80 mg GT Q6H PRN PRN Reason: GAS PAIN Stop: 10/02/17 14:13 Sodium Phosphate (Fleet Enema) 118 ml RC PRN PRN PRN Reason: IF MOM/DULCOLAX INEFFECTIVE Stop: 10/02/17 14:13 Temazepam (Restoril) 15 mg GT HS PRN; Protocol PRN Reason: Insomnia Stop: 10/02/17 14:13 Last Admin: 08/03/17 20:19 Dose: 15 mg Zinc Sulfate (Zinc Sulfate) 220 mg GT DAILY [facility] Stop: 10/03/17 08:59 Last Admin: 08/04/17 09:18 Dose: 220 Lab - Result Diagrams 09/03/17 05:30 09/03/17 05:30 scheduled for HD tomorrow CXR still showed persistent b/l effusions, CHF, left > right replace K f/u electrolytes. cbc now off Levo BS low, monitor closely, hold Levemir, continue S/S wbc down to 11 if left AVF clotted request placement of sandor cath bleed scan neg Nutritional Asmnt/Malnutr-PDOC - Dietary Evaluation Malnutrition Findings (Please click <Entered> for more info): Nutritional Asmnt/Malnutrition Start: 08/05/17 15: 53 Text: Status: Complete Freq: Document 08/05/17 15:53 LCHENG (Rec: 08/05/17 16:19 LCHENG [id number]) Nutritional Asmnt/Malnutrition Patient General Information Nutritional Screening High Risk Diagnosis sepsis, respiratory failure, ESRD Pertinent Medical Hx/Surgical Hx ESRD on HD, respiratory failure with tracheostomy, dysphagia, a fib, anemia, HTN, GERD Subjective Information Pt on vent, not able to interview. Pt was on TF Novosource Renal 30ml/hr continuous, NPO today for surgery. Pt has dialysis ordred per nurse note. Current Diet Order/ Nutrition Support NPO on 08/05 Pertinent Medications vit C, vit D3, colace, novolog , remeron, theragran, protonix , zinc Pertinent Labs 08/05 Na 134, K 3.6, Cl 102, BUN 77, Cr 4.2, Glucose 216, POC 224-233 08/02 A1c 7.7 Nutritional Hx/Data Height 1.6 m Height (Calculated Centimeters) 160.0 Current Weight (lbs) 87.543 kg Weight (Calculated Kilograms) 87.5 Weight (Calculated Grams) 77663.3 [place] Body Weight 115 Body Mass Index (BMI) 34.2 Weight Status Obese GI Symptoms GI Symptoms None Last BM 08/04 Difficult in: None Skin Integrity/Comment: reddened to left/right inner thigh, right lateral index finger, right/left arm; skin tear to left abdominal fold; pressure area to coccy/sacral Estimated Nutritional Goals BEE in Kcals: Adj wt of IBW Calories/Kcals/Kg 30-35 adj wt 61kg Kcals Calculated 3656-0072 Protein: Adj wt of IBW Protein g/k.2-1.4 Protein Calculated 73-85 Fluid: ml 1830-2135ml (1ml/kcal) Nutritional Problem 1. Problem Problem altered nutrition related lab values Etiology hx of ESRD, endocrine dysfunction Signs/Symptoms: BUN 77, Cr 4.2, Glucose 216, POC 224-233, A1c 7.7 Malnutrition Alert Protein-Calorie Malnutrition N/A Is there a minimum of two criteria No selected? Query Text:Check all the applicable criteria. A minimum of two criteria are recommended for diagnosis of either severe or non-severe malnutrition. Intervention/Recommendation Comments 1. Resume TF Novosource Renal 30ml/hr continuous as ordered. increase to goal rate of 40ml /hr continuous as tolerated. This will provide 1920kcal, 87g protein and 688ml free water, meeting 100% of nutritional needs 2. Monitor TF rate, tolerance, wt weekly, skin integrity and labs 3. F/U as high risk in 2-3 days, 08/07-08/08 Expected Outcomes/Goals Expected Outcomes/Goals 1. Pt to meet at least 75% of nutritional needs via nutrition support with tolerance 2. Wt stability, skin to remain intact, labs to approach WNL.
[2017-09-03] MEDS: Insulin Detemir 100 units/mL 10mL Vial SUBQ SCH (20:38)
== END 2017-09-04 00:35 | DRG 870 ==
LOC: ER 13:13 → ICU 17:58
PROVIDERS: ADMIT Internal Medicine; ATTEND Internal Medicine
PROC: 5A1955Z Respiratory Ventilation, Greater than 96 Consecutive Hours (ICD-10-PCS; principal; 2017-08-02)
PROC: 30233R1 Transfusion of Nonautologous Platelets into Peripheral Vein, Percutaneous Approach (ICD-10-PCS; 2017-08-02)
PROC: 30233N1 Transfusion of Nonautologous Red Blood Cells into Peripheral Vein, Percutaneous Approach (ICD-10-PCS; 2017-08-02)
PROC: 05H733Z Insertion of Infusion Device into Right Axillary Vein, Percutaneous Approach (ICD-10-PCS; 2017-08-03)
PROC: 05JY3ZZ Inspection of Upper Vein, Percutaneous Approach (ICD-10-PCS; 2017-08-05)
PROC: 5A1D70Z Performance of Urinary Filtration, Intermittent, Less than 6 Hours Per Day (ICD-10-PCS; 2017-08-06)
PROC: 5A1D70Z Performance of Urinary Filtration, Intermittent, Less than 6 Hours Per Day (ICD-10-PCS; 2017-08-15)
PROC: 5A1D70Z Performance of Urinary Filtration, Intermittent, Less than 6 Hours Per Day (ICD-10-PCS; 2017-08-16)
PROC: 5A1D70Z Performance of Urinary Filtration, Intermittent, Less than 6 Hours Per Day (ICD-10-PCS; 2017-08-21)
PROC: 5A1D70Z Performance of Urinary Filtration, Intermittent, Less than 6 Hours Per Day (ICD-10-PCS; 2017-08-25)
PROC: 05JY3ZZ Inspection of Upper Vein, Percutaneous Approach (ICD-10-PCS; 2017-08-26)
PROC: 06JY3ZZ Inspection of Lower Vein, Percutaneous Approach (ICD-10-PCS; 2017-08-26)
PROC: 5A1D70Z Performance of Urinary Filtration, Intermittent, Less than 6 Hours Per Day (ICD-10-PCS; 2017-08-28)
PROC: 5A1D70Z Performance of Urinary Filtration, Intermittent, Less than 6 Hours Per Day (ICD-10-PCS; 2017-08-29)
PROC: 5A1D70Z Performance of Urinary Filtration, Intermittent, Less than 6 Hours Per Day (ICD-10-PCS; 2017-08-31)
PROC: 5A1D70Z Performance of Urinary Filtration, Intermittent, Less than 6 Hours Per Day (ICD-10-PCS; 2017-09-02)
DX: A41.50 Gram-negative sepsis, unspecified (principal); R65.21 Severe sepsis with septic shock; J18.9 Pneumonia, unspecified organism; N18.6 End stage renal disease; G93.40 Encephalopathy, unspecified; L03.114 Cellulitis of left upper limb; T82.7XXA Infection and inflammatory reaction due to other cardiac and vascular devices, implants and grafts, initial encounter; Z99.11 Dependence on respirator [ventilator] status; J96.10 Chronic respiratory failure, unspecified whether with hypoxia or hypercapnia; I13.2 Hypertensive heart and chronic kidney disease with heart failure and with stage 5 chronic kidney disease, or end stage renal disease; L03.115 Cellulitis of right lower limb; I47.2 Ventricular tachycardia; K92.2 Gastrointestinal hemorrhage, unspecified; Z68.41 Body mass index [BMI] 40.0-44.9, adult; I48.91 Unspecified atrial fibrillation; J43.9 Emphysema, unspecified; D63.8 Anemia in other chronic diseases classified elsewhere; K21.9 Gastro-esophageal reflux disease without esophagitis; L89.159 Pressure ulcer of sacral region, unspecified stage; F32.9 Major depressive disorder, single episode, unspecified; I50.9 Heart failure, unspecified; N93.9 Abnormal uterine and vaginal bleeding, unspecified; Y83.8 Other surgical procedures as the cause of abnormal reaction of the patient, or of later complication, without mention of misadventure at the time of the procedure; E78.5 Hyperlipidemia, unspecified; R13.10 Dysphagia, unspecified; E11.22 Type 2 diabetes mellitus with diabetic chronic kidney disease; Z93.0 Tracheostomy status; Z99.2 Dependence on renal dialysis; Z93.1 Gastrostomy status; Z88.5 Allergy status to narcotic agent; Z88.8 Allergy status to other drugs, medicaments and biological substances; Y92.89 Other specified places as the place of occurrence of the external cause; Z88.6 Allergy status to analgesic agent; Z79.4 Long term (current) use of insulin
CPT/HCPCS: 36415-UA; 36600-90; 71045-TC; 74250-TC; 76000-TC; 78278-TC; 80048-TC; 80053-TC; 80061-TC; 80074-90; 80076-TC; 80202-TC; 82150-TC; 82270-TC; 82728-90; 82803-TC; 82948-90; 83036-90; 83540-90; 83550-90; 83605; 83690-TC; 83735-TC; 83880-TC; 84443-TC; 84484-TC; 85007-TC; 85025-TC; 85027-TC; 85610-TC; 86850-90; 86850-TC; 86860-90; 86870-90; 86870-TC; 86880-TC; 86900-TC; 86901-TC; 86902-90; 86922-TC; 86971-90; 87086-90; 90779; 90799; 90937; 92950; 93005; 93931-LT-TC; 93970-TC-50; 93971-TC-RT; 94002; 94003; 94640; 96372; 96375; 96379; 97971-TC-LT; A9512; C9113; J0282; J0770; J1265; J1450; J1644; J1650; J1815; J1956; J2001; J2060; J2185; J2250; J2370; J2405; J2543; J2704; J3010; J3370; J3475; J3480; J7030; J7040; J7070; J7613; J7799; P9016; P9035; P9046; Q0162; V2790; X6452; Z7610